=== PATIENT | female | born 1940 | race African-American/Black ===

== ENCOUNTER 2017-10-18 13:13 | Emergency (ER) | payer OTHER ==
--- NOTE | 2017-10-18 13:28 | PDOC ---
History of Present Illness - General Chief Complaint: Altered Mental Status Stated Complaint: AMS Time Seen by Provider: 10/18/17 13:15 History Source: Patient, Care Provider, EMS, Family Exam Limitations: Dementia - History of Present Illness Initial Comments: 10/18/17 13:18 77y F hx of htn, NIDDM parkinsons presents with complaint of AMS. Per aide, pt was less responsive this morning so they called EMS. Pt was recently admitted to the hospital and then discharged to [place] and came home 2 weeks ago. Per family , she has good days where she is more awake, eeds herself and wakls with assistance and bad days where she is sleeping mostly. Aide staes today she is minimally responsive, so they called EMS. History is limited, pt endorses feeling dizzy, but denies any cp, abd pain, cough/fevers, n/v, diarrhea, dysuria. BGM 134 by EMS vitals normal per EMS Past History - Past Medical History Allergies/Adverse Reactions: Allergies Allergy/AdvReac Type Severity Reaction Status Date / Time No Known Allergies Allergy Verified 07/01/17 17:11 Home Medications: Ambulatory Orders Nitrofurantoin Monohyd/M-Cryst [Macrobid -] 100 mg PO BID #10 capsule 10/18/17 COPD: No Dementia: Yes HTN: Yes - Suicide/Smoking/Psychosocial Hx Smoking History: Smoker current status UNK Have you smoked in the past 12 months: No Hx Alcohol Use: No Drug/Substance Use Hx: No Substance Use Type: None Review of Systems - Review of Systems Able to Perform ROS?: No (dementia, clinical status) *Physical Exam - Physical Exam Comments: 10/18/17 13:21 GENERAL: The patients eyes are closed, but responds to verbal comands, resistant to oepning eyes HEAD: Normocephalic, atraumatic. EYES: extraocular movements intact, sclera anicteric, conjunctiva clear. ENT: Normal voice, dry mucous membranes. NECK: Normal range of motion, supple LUNGS: Breath sounds equal, clear to auscultation bilaterally. No wheezes, no rhonchi, no rales. HEART: Regular rate and rhythm, normal S1 and S2 without murmur, rub or gallop. ABDOMEN: Soft, nontender, normoactive bowel sounds. No guarding, no rebound. No CVA tenderness EXTREMITIES: Normal range of motion, no edema. NEUROLOGICAL: No facial assymetry, moving all 4 extremities spontaneously and symmetrically PSYCH: Normal mood, normal affect. SKIN: Warm, Dry, normal turgor, Heart Score/ECG Review - ECG Impressions Comment:: 10/18/17 14:48 Twelve-lead EKG was performed and reviewed by me. There is normal sinus rhythm with a rate of 91 RBBB, LAFB no changes from previous ekg in 06/2017 ED Treatment Course - LABORATORY CBC & Chemistry Diagram: 10/18/17 15:45 10/18/17 15:45 - RADIOLOGY Radiology Studies Ordered: Category Date Time Status HEAD CT WITHOUT CONTRAST [CT] Stat CT Scan 10/18/17 13:16 Ordered CHEST X-RAY PORTABLE* [RAD] Stat Radiology 10/18/17 13:17 Ordered Medical Decision Making - Medical Decision Making 10/18/17 14:46 77y F hx of HTN, NIDDM, parkinsons present with AMS, upon arrival pt is awake when stimulated, follows commands, vitals normal. history limited dueto her dementia, but she dnies any pain. on exam the is in no distress, nonfocal exam ddx includes metabolic dernagement, occult infection, consider cva, will ck ct head, labs, ua, cxr will reassess 10/18/17 18:46 labs reviewed UA suggestive of UTI pt yaakov hogue will dc the pt with pmd fu and abx return precautions were discussed I discussed the physical exam findings, ancillary test results and final diagnoses with the patient. I answered all of the patient's questions. The patient was satisfied with the care received and felt comfortable with the discharge plan and treatment plan. The patient will call their primary care physician within 24 hours to arrange follow-up and will return to the Emergency Department with any new, persistent or worsening symptoms. *DC/Admit/Observation/Transfer Diagnosis at time of Disposition: Urinary tract infection Qualifiers: Urinary tract infection type: acute cystitis Hematuria presence: with hematuria Qualified Code(s): N30.01 - Acute cystitis with hematuria - Discharge Dispostion Disposition: HOME Condition at time of disposition: Improved Decision to Admit order: No - Prescriptions Prescriptions: Nitrofurantoin Monohyd/M-Cryst [Macrobid -] 100 mg PO BID #10 capsule - Referrals Referrals: Emily Mckeon MD [Staff Physician] - - Patient Instructions Printed Discharge Instructions: DI for Urinary Tract Infection (UTI) Additional Instructions: Return to the emergency department immediately with ANY new, persistent or worsening symptoms including any fever/chills, back pain or other concerns. Pklease finish your entire course of antibiotics as prescribed. You MUST call and follow up with your doctor tomorrow for further evaluation of your symptoms. Results were discussed with you. Please make sure your doctor reviews the results of your emergency evaluation. Print Language: MACANESE - Post Discharge Activity
[2017-10-18 13:44] VITALS: TEMP 98.2; BMI 20.8
[2017-10-18] MEDS ORDERED: SODIUM CHLORIDE 500 ML IV STA (16:02)
[2017-10-18 16:03] LABS: BASO % 0.4 % (0-2.0); EOS % 0.3 % (0-4.5); HEMATOCRIT 34.8 % (32.4-45.2); HEMOGLOBIN 10.9 GM/dL (10.7-15.3); LYMPH % 34.5 % (8-40); MCH 22.3 pg (25.7-33.7); MCHC 31.3 g/dl (32.0-36.0); MEAN CELL VOLUME 71.2 fl (80-96); MEAN PLT VOLUME 8.4 fl (7.5-11.1); MONO % 5.9 % (3.8-10.2); NEUT % 58.9 % (42.8-82.8); PLATELET COUNT 258 K/MM3 (134-434); RBC 4.88 M/mm3 (3.60-5.2); RDW 16.1 % (11.6-15.6); WHITE BLOOD COUNT 7.4 K/mm3 (4.0-10.0)
[2017-10-18 16:24] LABS: INR 1.07 (0.82-1.09); PROTHROMBIN TIME (PATIENT) 12.1 SEC (9.7-13.0)
[2017-10-18 17:59] LABS: URINE APPEARANCE CLOUDY; URINE BILIRUBIN NEGATIVE (<2.0 mg/dL); URINE COLOR YELLOW; URINE GLUCOSE (UA) NEGATIVE (NEGATIVE); URINE KETONE NEGATIVE (NEGATIVE); URINE NITRITE NEGATIVE (NEGATIVE); URINE PROTEIN NEGATIVE (NEGATIVE); URINE UROBILINOGEN NEGATIVE mg/dL (0.2-1.0)
[2017-10-18 17:59] LABS: BLOOD UREA NITROGEN 18 mg/dL (7-18); GLUCOSE,RANDOM 62 mg/dL (74-106)
[2017-10-18 18:00] LABS: ANION GAP 7 (8-16); CALCIUM 8.5 mg/dL (8.5-10.1); CHLORIDE 110 mmol/L (98-107); CO2 28 mmol/L (21-32); SODIUM 145 mmol/L (136-145); TOT PROT 7.4 g/dl (6.4-8.2)
[2017-10-18 18:01] LABS: ALBUMIN 3.2 g/dl (3.4-5.0); ALK PHOS 87 U/L (45-117); BILIRUBIN,TOTAL 0.2 mg/dL (0.2-1.0); SGOT/AST 26 U/L (15-37); SGPT/ALT 10 U/L (12-78)
[2017-10-18 18:23] LABS: URINE LEUK ESTERASE 3+ (NEGATIVE)
[2017-10-18 18:26] LABS: EPI CELLS RARE /HPF (FEW); URINE BACTERIA MODERATE /hpf (NONE SEEN)
[2017-10-18 18:31] LABS: MAGNESIUM 2.2 mg/dL (1.8-2.4)
[2017-10-18 19:10] VITALS: BP 129/69; PULSE 68
--- NOTE | 2017-10-19 08:51 | EKG ---
Test Reason : Blood Pressure : / mmHG Vent. Rate : 091 BPM Atrial Rate : 091 BPM P-R Int : 162 ms QRS Dur : 134 ms QT Int : 424 ms P-R-T Axes : 050 -63 -20 degrees QTc Int : 521 ms POOR DATA QUALITY, INTERPRETATION MAY BE ADVERSELY AFFECTED SINUS RHYTHM WITH OCCASIONAL PREMATURE VENTRICULAR COMPLEXES RIGHT BUNDLE BRANCH BLOCK LEFT ANTERIOR FASCICULAR BLOCK BIFASCICULAR BLOCK MODERATE VOLTAGE CRITERIA FOR LVH, MAY BE NORMAL VARIANT CANNOT RULE OUT SEPTAL INFARCT (CITED ON OR BEFORE 01-JUL-2017) ABNORMAL ECG WHEN COMPARED WITH ECG OF 01-JUL-2017 16:55, PREMATURE VENTRICULAR COMPLEXES ARE NOW PRESENT VENT. RATE HAS INCREASED BY 47 BPM QUESTIONABLE CHANGE IN INITIAL FORCES OF SEPTAL LEADS T WAVE INVERSION MORE EVIDENT IN ANTERIOR LEADS Confirmed by KIERA HEIN MD ([id number]) on 10/19/2017 8:50:30 AM Referred By: Confirmed By:KIERA HEIN MD
== END 2017-10-18 19:11 | disposition home or self-care (01) ==
LOC: JER 13:13
PROC: 3E0337Z Introduction of Electrolytic and Water Balance Substance into Peripheral Vein, Percutaneous Approach (ICD-10-PCS; principal; 2017-10-18)
DX: N30.01 Acute cystitis with hematuria (principal); I10 Essential (primary) hypertension; E11.9 Type 2 diabetes mellitus without complications; G20 Parkinson's disease; F02.80 Dementia in other diseases classified elsewhere, unspecified severity, without behavioral disturbance, psychotic disturbance, mood disturbance, and anxiety
CPT/HCPCS: 36415; 70450-TC; 71045-TC-FY; 80053; 81003; 81015; 82550; 83735; 84443; 84484; 85025; 85610; 87040; 87086; 87186; 93005; 93010; 96360; 99284-25

== ENCOUNTER 2018-04-13 15:38 | Inpatient (IN) | payer MEDICARE, OTHER ==
[2018-04-13] MEDS ORDERED: LACTATED RINGERS SOLUTION 1,000 ML/1,000 ML INFUS.BAG IV STA (16:14)
[2018-04-13] MEDS ORDERED: PIPERACILLIN/TAZOB 3.375 GM 3.375 GM in DEXTROSE 5%-WATER - 50 ML IVPB ONE (16:21)
[2018-04-13] MEDS ORDERED: VANCOMYCIN 1 GRAM (PRE-DOCKED) 1,000 MG/250 ML BAG IVPB ONE ×2 (16:21→17:32)
--- NOTE | 2018-04-13 16:23 | PDOC ---
Attending Attestation - Resident Resident Name: Eric Williamson - ED Attending Attestation I have performed the following: I have examined & evaluated the patient, The case was reviewed & discussed with the resident, I agree w/resident's findings & plan, Exceptions are as noted - HPI HPI: 04/13/18 16:24 The patient is a 78 year old female with a significant PMH of HTN, DM, bilateral knee replacement, Parkinsons disease, and mild dementia who presents to the emergency department with generalized weakness and nonbloody diarrhea for the past week. Patients daughter is at bedside and reports the patient talks, feeds herself, and walks with a walker at baseline. As per the daughter, the patient has been having a lack of appetite, lying in bed most of the day, and not talking with her granddaughters as she usually does. She denies fevers but states the patient has been cold. Pt's daughter also reports a sacral ulcer that has been hard to clean 2/2 diarrhea. Per EMS, pt was hypotensive to 70/40 in the field but responded to 1L fluids and BP went up to 130s systolic. Per her daughter, pt is full code. History is limited due to pt's mental status at this time. Allergies: NKA Past surgical history: None reported. Social history: None reported. PCP: Dr. Salcedo - Physicial Exam PE: 04/13/18 16:36 GENERAL: lethargic but arousable HEAD: No signs of trauma ENT: Dry mucous membranes LUNGS: Breath sounds equal, clear to auscultation bilaterally. No wheezes, and no crackles HEART: Regular rate and rhythm, normal S1 and S2, no murmurs, rubs or gallops ABDOMEN: Soft, nontender, nondistended : rectal temp 88 EXTREMITIES: Normal range of motion, no edema. +b/l knee replacement with well healed scars, +R hip scar NEUROLOGICAL: Rigid throughout, LUE pill rolling tremor, moving all extremities SKIN: +sacral decubitus ulcer covered with diarrhea - Medical Decision Making 04/13/18 16:42 78yo F with MMP including parkinsons disease presents to the ED with lethargy and diarrhea, hypotensive in the field, in the ED found to have hypothermia to 88F, hypoxia that has corrected with NRB. Pt with sacral decubitus ulcer covered in diarrhea. Concern for infection, likely UTI vs infected sacral decubitus, but also possible PNA as pt was hypoxic in the field. Pt rigid throughout, pt daughter states is baseline due to her parkinsons disease. Will check labs to look for metabolic causes of AMS and CTH for neurologic causes. Pt covered empirically. Anticipate admission. Heart Score/ECG Review #1 04/13/18 16:46 Twelve-lead EKG was performed and reviewed by me. Sinus bradycardia, rate 59. Left axis deviation. Right bundle branch block.
--- NOTE | 2018-04-13 16:27 | PDOC ---
History of Present Illness - General Stated Complaint: CHANGE IN MENTAL STATUS Time Seen by Provider: 04/13/18 15:43 History Source: Care Provider, Family Exam Limitations: No Limitations - History of Present Illness Initial Comments: 04/13/18 16:41 78f with pmh of Parkinson's, dementia, and HTN presents to the ED for change in mental status as per daughter who lives wit her. Beginning of the week started having diarrhea for 2-3 days. Looking more weak, given ensure and pedialyte. After that she started to communicated less and less , unable to feed and became more rigid, unable to ambulate. Lives at home with Daughter. 04/13/18 16:45 Past History - Past Medical History Allergies/Adverse Reactions: Allergies Allergy/AdvReac Type Severity Reaction Status Date / Time No Known Allergies Allergy Verified 04/13/18 21:45 Home Medications: Ambulatory Orders Acetaminophen 500 mg PO DAILY 04/13/18 Aspirin 81 mg PO DAILY 04/13/18 Ca/D3/Mag Ox/Zinc/Truck Leasing Manager/Ketan/Bor [Calcium 600+D3 Plus Caplet] 1 each PO DAILY Carbidopa/Levodopa [Carbidopa-Levo ER 50-200 Tab] 1 each PO DAILY 04/13/18 Olanzapine 5 mg PO HS 04/13/18 Rotigotine [Neupro] 1 each TD DAILY 04/13/18 COPD: No Dementia: Yes HTN: Yes - Suicide/Smoking/Psychosocial Hx Smoking History: Smoker current status UNK Have you smoked in the past 12 months: No Hx Alcohol Use: No Drug/Substance Use Hx: No Substance Use Type: None Review of Systems - Review of Systems Able to Perform ROS?: No (non-verbal) *Physical Exam - Physical Exam General Appearance: Yes: Nourished, Appropriately Dressed, Apparent Distress, Other HEENT: positive: EOMI, Other (greenish discharge from corner of right eye, non conjunctivitis) Respiratory/Chest: positive: Lungs Clear, Normal Breath Sounds, Other (slow rr) . negative: Chest Tender, Respiratory Distress Cardiovascular: positive: Regular Rhythm, Regular Rate, S1, S2 Gastrointestinal/Abdominal: positive: Normal Bowel Sounds, Flat, Soft. negative : Tender Musculoskeletal: positive: Other Extremity: positive: Normal Capillary Refill. negative: Normal Inspection ( lead pipe rigidity) Integumentary: positive: Other (patient feels ice-coldat extremities. Twelve -lead EKG was performed and reviewed by me. Sacral decubitus ulcer grade 2) Neurologic: positive: Responsive (responsive to pain., numbling and shivering. ) . negative: Fully Oriented, Alert, Normal Mood/Affect ED Treatment Course - LABORATORY CBC & Chemistry Diagram: 04/13/18 16:27 04/13/18 16:27 - RADIOLOGY Radiology Studies Ordered: Category Date Time Status CHEST X-RAY PORTABLE* [RAD] Stat Radiology 04/13/18 15:59 Taken Medical Decision Making - Medical Decision Making 04/13/18 16:53 78F with dementia and parkinsons, presenting with hypothermia and diarrhea for the past week. C.diff vs gastroenteritis vs UTI vs scral decubitus ulcer vs pneumonia Septic workup ordered. Cultures and cdiff sample ordered. Starting empiric abx. Elevated wbc. Positive occult blood EKG:Sinus bradycardia, rate 59. Left axis deviation. Right bundle branch block. 04/13/18 18:16 Temperature still 88.5F after abx, Bear Hugger and fluids. Will try warming 3rd bag IV fluid and give warmed maintenance 04/13/18 20:[address]: No acute intracranial findings. Will repeat vitals and admit to Hospitalist. *DC/Admit/Observation/Transfer Diagnosis at time of Disposition: Sepsis, UTI (urinary tract infection) - Discharge Dispostion Decision to Admit order: Yes - Referrals Referrals: Emily Mckeon MD [Primary Care Provider] - - Patient Instructions - Post Discharge Activity
[2018-04-13 16:49] LABS: VENOUS PC02 55.4 mmHg (38-52); VENOUS PH 7.26 (7.32-7.42); VENOUS PO2 45.8 mmHg (28-48)
[2018-04-13 16:51] LABS: BASO % 0.4 % (0-2.0); EOS % 0.1 % (0-4.5); HEMATOCRIT 37.6 % (32.4-45.2); HEMOGLOBIN 11.9 GM/dL (10.7-15.3); LYMPH % 16.9 % (8-40); MCHC 31.6 g/dl (32.0-36.0); MEAN CELL VOLUME 69.5 fl (80-96); MEAN PLT VOLUME 9.1 fl (7.5-11.1); NEUT % 78.6 % (42.8-82.8); PLATELET COUNT 171 K/MM3 (134-434); WHITE BLOOD COUNT 13.4 K/mm3 (4.0-10.0)
[2018-04-13 17:08] LABS: INR 1.13 (0.83-1.09); PROTHROMBIN TIME (PATIENT) 13.3 SEC (9.7-13.0)
[2018-04-13 17:10] LABS: ACTIVATED PTT 37.2 SECONDS (25.2-36.5)
[2018-04-13] MEDS ORDERED: PIPERACILLIN/TAZOB 3.375 GM 3.375 GM/50 ML BAG IVPB ONE (17:10)
[2018-04-13 17:26] LABS: ALK PHOS 92 U/L (45-117); ANION GAP 9 MMOL/L (8-16); BILIRUBIN,TOTAL 0.3 mg/dL (0.2-1); BLOOD UREA NITROGEN 30 mg/dL (7-18); CALCIUM 8.7 mg/dL (8.5-10.1); CHLORIDE 113 mmol/L (98-107); CO2 22 mmol/L (21-32); CREATININE 0.8 mg/dL (0.55-1.3); GLUCOSE,RANDOM 78 mg/dL (74-106); SGOT/AST 43 U/L (15-37); SGPT/ALT 12 U/L (13-61); SODIUM 143 mmol/L (136-145)
[2018-04-13 18:06] LABS: ARTERIAL BLOOD GAS BASE EXCESS -3.8 meq/l (-2-2); ARTERIAL BLOOD GAS PCO2 41.9 mmHg (35-45); ARTERIAL BLOOD GAS pH 7.33 (7.35-7.45)
[2018-04-13 18:07] LABS: ALLENS TEST POSITIVE
[2018-04-13 18:27] LABS: ACANTHOCYTES 1+; ANISOCYTOSIS 1+; MACROCYTOSIS 0; PLATELET ESTIMATE NORMAL; TARGET CELLS 1+
[2018-04-13 18:47] LABS: URINE APPEARANCE SLCLOUDY; URINE BILIRUBIN NEGATIVE (<2.0 mg/dL); URINE COLOR LTYELLOW; URINE GLUCOSE (UA) NEGATIVE (NEGATIVE); URINE KETONE NEGATIVE (NEGATIVE); URINE LEUK ESTERASE 3+ (NEGATIVE); URINE NITRITE NEGATIVE (NEGATIVE); URINE PROTEIN NEGATIVE (NEGATIVE); URINE UROBILINOGEN NEGATIVE mg/dL (0.2-1.0)
[2018-04-13 18:58] LABS: EPI CELLS RARE /HPF (FEW); URINE BACTERIA RARE /hpf (NONE SEEN)
[2018-04-13] MEDS: LACTATED RINGERS SOLUTION 1,000 ML/1,000 ML INFUS.BAG IV SCH (19:17)
--- NOTE | 2018-04-13 21:04 | PDOC ---
*Physical Exam - Vital Signs Last Vital Signs Temp Pulse Resp BP Pulse Ox 92.1 F L 77 20 128/62 98 04/13/18 20:43 04/13/18 20:43 04/13/18 20:43 04/13/18 20:43 04/13/18 20:43 - Physical Exam Comments: 04/14/18 02:41 I received pt on signout. She will be admitted for sepsis. We are awaiting all chem results and XRAYs.. ED Treatment Course - LABORATORY CBC & Chemistry Diagram: 04/13/18 16:27 04/13/18 16:27 - ADDITIONAL ORDERS Additional order review: Laboratory Results 04/13/18 04/13/18 04/13/18 18:39 17:31 16:27 PT with INR INR PTT (Actin FS) Anticoagulation Therapy No Result Required. Puncture Site No Result Required. ABG pH 7.33 L ABG pCO2 at Pt Temp 41.9 ABG pO2 at Pt Temp 178.0 H* D ABG HCO3 21.3 L ABG O2 Sat (Measured) 99.0 H ABG O2 Content 13.6 L ABG Base Excess -3.8 L Gaetano Test Positive VBG pH POC VBG pCO2 POC VBG pO2 Mixed VBG HCO3 Carboxyhemoglobin 1.0 Methemoglobin 2.0 H O2 Delivery Device No Result Required. Oxygen Flow Rate No Result Required. Vent Mode No Result Required. Vent Rate No Result Required. Mechanical Rate No Result Required. Pressure Support Vent No Result Required. Sodium 143 Potassium 5.0 Chloride 113 H Carbon Dioxide 22 Anion Gap 9 BUN 30 H Creatinine 0.8 Creat Clearance w eGFR > 60 Random Glucose 78 Lactic Acid Calcium 8.7 Total Bilirubin 0.3 AST 43 H ALT 12 L Alkaline Phosphatase 92 Troponin I < 0.02 Total Protein 7.0 Albumin 3.0 L Urine Color Ltyellow Urine Appearance Slcloudy Urine pH 5.0 Ur Specific [place] 1.004 L Urine Protein Negative Urine Glucose (UA) Negative Urine Ketones Negative Urine Blood 1+ H Urine Nitrite Negative Urine Bilirubin Negative Urine Urobilinogen Negative Ur Leukocyte Esterase 3+ H Urine WBC (Auto) 40 Urine RBC (Auto) 4 Ur Epithelial Cells Rare Urine Bacteria Rare Stool Occult Blood 04/13/18 04/13/18 04/13/18 16:27 16:27 16:27 PT with INR 13.30 H INR 1.13 H PTT (Actin FS) 37.2 H Anticoagulation Therapy Puncture Site ABG pH ABG pCO2 at Pt Temp ABG pO2 at Pt Temp ABG HCO3 ABG O2 Sat (Measured) ABG O2 Content ABG Base Excess Gaetano Test VBG pH 7.26 L POC VBG pCO2 55.4 H POC VBG pO2 45.8 Mixed VBG HCO3 24.1 Carboxyhemoglobin Methemoglobin O2 Delivery Device Oxygen Flow Rate Vent Mode Vent Rate Mechanical Rate Pressure Support Vent Sodium Potassium Chloride Carbon Dioxide Anion Gap BUN Creatinine Creat Clearance w eGFR Random Glucose Lactic Acid 1.1 Calcium Total Bilirubin AST ALT Alkaline Phosphatase Troponin I Total Protein Albumin Urine Color Urine Appearance Urine pH Ur Specific [place] Urine Protein Urine Glucose (UA) Urine Ketones Urine Blood Urine Nitrite Urine Bilirubin Urine Urobilinogen Ur Leukocyte Esterase Urine WBC (Auto) Urine RBC (Auto) Ur Epithelial Cells Urine Bacteria Stool Occult Blood 04/13/18 16:05 PT with INR INR PTT (Actin FS) Anticoagulation Therapy Puncture Site ABG pH ABG pCO2 at Pt Temp ABG pO2 at Pt Temp ABG HCO3 ABG O2 Sat (Measured) ABG O2 Content ABG Base Excess Gaetano Test VBG pH POC VBG pCO2 POC VBG pO2 Mixed VBG HCO3 Carboxyhemoglobin Methemoglobin O2 Delivery Device Oxygen Flow Rate Vent Mode Vent Rate Mechanical Rate Pressure Support Vent Sodium Potassium Chloride Carbon Dioxide Anion Gap BUN Creatinine Creat Clearance w eGFR Random Glucose Lactic Acid Calcium Total Bilirubin AST ALT Alkaline Phosphatase Troponin I Total Protein Albumin Urine Color Urine Appearance Urine pH Ur Specific [place] Urine Protein Urine Glucose (UA) Urine Ketones Urine Blood Urine Nitrite Urine Bilirubin Urine Urobilinogen Ur Leukocyte Esterase Urine WBC (Auto) Urine RBC (Auto) Ur Epithelial Cells Urine Bacteria Stool Occult Blood Positive 04/13/18 16:27 RBC 5.40 H MCV 69.5 L MCHC 31.6 L RDW 18.0 H MPV 9.1 Neutrophils % 78.6 D Lymphocytes % 16.9 D Monocytes % 4.0 Eosinophils % 0.1 Basophils % 0.4 - Medications Given in the ED: ED Medications Discontinued Medications Generic Name Dose Route Start Last Admin Trade Name Freq PRN Reason Stop Dose Admin Lactated Ringer's 1,000 ml in 1,000 mls @ 1,000 mls/hr 04/13/18 16:14 17:17 Lactated Ringers Solution IV 04/13/18 17:13 1,000 mls/hr ONCE STA Administration Piperacillin Sod/Tazobactam 50 mls @ 100 mls/hr 04/13/18 16:21 04/13/18 17:18 Sod 3.375 gm/ Dextrose IVPB 04/13/18 16:50 100 mls/hr ONCE ONE Administration Protocol Vancomycin HCl 1,000 mg 04/13/18 16:21 04/13/18 17:32 Vancomycin (Pre-Docked) IVPB 04/13/18 16:22 1,000 mg ONCE ONE Administration Protocol *DC/Admit/Observation/Transfer Diagnosis at time of Disposition: Sepsis, UTI (urinary tract infection) - Referrals - Patient Instructions - Post Discharge Activity
--- NOTE | 2018-04-13 22:18 | PN ---
Teaching Attending Note Name of Resident: Virginia Lawler ATTENDING PHYSICIAN STATEMENT I saw and evaluated the patient. I reviewed the resident's note and discussed the case with the resident. I agree with the resident's findings and plan as documented. SUBJECTIVE: Patient is seen and examined at bedside; please see resident note for further historical information. She is a 78 y/o AAF with a PMH significant for Parkinson's disease (on CD/LD, recently started on new medication by Dr. Jeffries with Neupro patch which she first took last week with initial positive response). She is compliant with her tx. She presents with AMS today; she has been progressively more sleepy over the past several days becoming less responsive and barely eating (daughters tried to give pedialyte). Question of BRBPR. She has limited mobility at baseline, requiring use of a wheelchair and only able to go short distances (chair to washroom, etc) but they noted this was diminished. She had 3 bouts of diarrhea (no record of recent abx). Given the aforementioned family wanted her assessed. In the ER she found to be hypothermic recorded in low 80s and she was placed on warming. She was given broad spectrum abx and 2L crystaloid. She was initially doing well on RA then was found to rapidly desaturate requiring ventimask (this was in the ER, unwitnessed). We saw her and she was back down to low requirements on NC saturating at 100%. Unsure exactly what the inciting event was. 10 sys ROS couldn't be reliably obtained from pt FH couldn't be confirmed with pt Social hx she needs help with her ADLs (at least the mobility part of it, though she can still complete some) and IADLs. No tobacco or alcohol use now. PMH and PSH reviewed in chart OBJECTIVE: VS, labs, imaging reviewed NAD, responsive to pain and tactile stimuli, at this time judged to protect airway but that could change. RRR s1/2 no mgr Lung exam difficult; appears mostly clear but shallow inspiration limits. sym exp Winces to deep palpation throughout upper quadrants, ND +BS x4 no palpable bladder or hsm. Multiple hemorrhoids on rectal exam Stage 1 sacral decub, no other rashes or abrasions. Responds to pain an tactile stimuli, opening eyes and grimmacing, reflexes normal. Somewhat increased muscle tone. Echo 06/2017 reviewed: G1DD, LVEF wnl WBC 13, VBG reviewed, microcytic anemia noted CT head negative for acute findings, final report pending ESR/CRP, culture results pending. Positive FOBT. Elevated BUN off baseline Resistent E. Coli in urine culture within 12 months. ASSESSMENT AND PLAN: Mrs. Prescott is an 78 y/o HF presenting with AMS and hypothermia from home. Ddx is broad. 1) AMS -Broad ddx; UA slightly positive and cannot tell us if she has sx so empirically covering. She also had a recent neurological drug change with the Neupro patch. If she doesn't improve with treating infection considering contribution of drug effect vs. other process; at that juncture would consult her neurologist. No s/s seizure. CT head unremarkable for acute findings. Consider further neuroimaging with MRI if conservative management not revealing. would be helpful to review OP neuro recs. -Neuro checks, seizure precautions. If she ends up having any worsening of her neuro status may need to protect her airway and increase the level of care. -Monitor for any arrhythmias that could have predisposed to embolic phenomenon, etc. on tele for 24 hours; trop (-)x2 -Swallow study; she should continue on her PD meds at this juncture 2) Diarrhea -Low risk for CDif but she cannot provide complete history; did appear to have abdominal pain on exam. Due to her hypothermia, WBC, confusing presentation will go ahead and check stool studies to r/o infection; if negative can treat with PRNs 3) +FOBT with BRBPR and ? Abdominal Pain -Elevated BUN noted; Hb 11 and it was 10 the last time she was here but she appears dehydrated at this juncture. Hemorrhoids seen on exam. -No bloody BM seen here; will monitor. Trend CBC. If drop in Hb or further blood will consult GI but given the hemorrhoids can hold off at least for overnight. Monitor clinically. CT pending. Until ascertained if this is significant keeping on IV protonix push BID. 4) Borderline bradycardia -Resolved with treatment of hypothermia; monitor tele for 24 hours 5) Acute Cystitis -UA suggests with +AMS; cannot tell if urinary sx. Grew out organisms with odd resistence patterns in past. Will place on ertapenem and monitor as it covered both recent strains of bacteria. Consider ID consult. 6) Poor functional status -PT when improved; consideration of placement -Family is adament that she remain full code; discussed at length. 7) Hypoalbuminemia -Prealbumin and nutritional supplementation as OP 8) Parkinsons disease -Continue to monitor neurologic status; continue home meds. As per #1 consult to neuro should be considered if she doesn't have any improvement after initiation of proper tx for suspected cystitis. 9) Acute Desat -Unsure what incited this; weaning off O2 but per HPI was on venturi mask/NRB very briefly in ER. Checking CT chest; monitor O2. She is protecting her airway to our assessment but if evidence of occult aspiration, etc. we will need to reexamine our approach. Cpnsider incentive sandy when awake. 10) Microcytic Anemia -+FOBT; if she doesn't see GI here she should see them outpatient for further workup 11) Dementia -Confirmed code status; she does get home health 12) H/O HTN not on meds -Monitor; if she is persistently hypertensive here consider GDMT but likely can FU outpatient. 13) Grade I Diastolic Dysfunction -Seen on Echo from earlier this year; careful fluid management Full Code
--- NOTE | 2018-04-14 01:02 | HP ---
CHIEF COMPLAINT: weakness, lethargy PCP: Dr. Mckeon HISTORY OF PRESENT ILLNESS: Patient is an 78 year old female with history of Parkinson's, dementia, and hypertension, presents with complaint of generalized weakness, and lethargy. As per daughter (Angela [phone]) at bedside, patient has been minimally responsive, and less communicative over the past three days. Patient's appetite has decreased significantly, and over past day she has only consumed one bottle of "Pediasure" throughout the day. At baseline, patient is verbally communicative, and able to ambulate to bathroom with walker, and otherwise ambulates in wheelchair. She normally eats full, solid diet. Daughter also notes concern for liquid brown diarrhea that began this past Saturday. She denies melena, however endorses one episode of possibly red streak of blood mixed with the diarrhea. No recent hospitalization, or antibiotics use. However , daughter notes new medication (Neupro patch) that she began earlier the same week. No other changes in medications. Patient has history of presenting with hypothermia in the past, and was noted by daughter to be cold to touch at home yesterday, despite wearing hat, socks, and under covers. ER course was notable for: (1) 2L bolus IV LR (2) Temp 88.9F, Monica hugger (3) Vancomycin 1 gram, Zosyn 3.375 grams Recent Travel: denies PAST MEDICAL HISTORY: Parkinson's, dementia, hypertension PAST SURGICAL HISTORY: B/L knee replacement 4 years ago. Right hip repair 2 years ago. Hysterectomy 45 years ago. Social History: Smoking: denies Alcohol: denies Drugs: denies Occupation: patient did not have prior occupation. She took care of her children , and maintained her household. She has home health aide 7 days/ week, 8 hours/ day. Daughter lives at home with her, and assists in the patient's care. Family History: Both mother and father due to "old age". Patient's daughter unable to provide further history. Allergies No Known Allergies Allergy (Verified 04/13/18 21:45) HOME MEDICATIONS: Home Medications Medication Instructions Recorded Acetaminophen 500 mg PO DAILY 04/13/18 Aspirin 81 mg PO DAILY 04/13/18 Ca/D3/Mag Ox/Zinc/Audience Coordinator/Ketan/Bor 1 each PO DAILY 04/13/18 [Calcium 600+D3 Plus Caplet] Carbidopa/Levodopa [Carbidopa-Levo 1 each PO DAILY 04/13/18 ER 50-200 Tab] Olanzapine 5 mg PO HS 04/13/18 Rotigotine [Neupro] 1 each TD DAILY 04/13/18 REVIEW OF SYSTEMS Unable to obtain due to patient's minimal responsiveness. PHYSICAL EXAMINATION Vital Signs - 24 hr 04/13/18 04/13/18 04/13/18 15:59 16:00 16:52 Temperature 88.9 F L 88.4 F L 88.2 F L Pulse Rate 52 L Pulse Rate [ 54 L Left] Respiratory 10 16 Rate Blood Pressure 111/72 Blood Pressure 105/68 [Arm] O2 Sat by Pulse 100 80 L Oximetry (%) 04/13/18 04/13/18 04/13/18 17:25 18:35 19:16 Temperature 88.9 F L Pulse Rate Pulse Rate [ 62 72 Left] Respiratory 14 17 Rate Blood Pressure Blood Pressure 110/65 108/56 L [Arm] O2 Sat by Pulse 100 100 Oximetry (%) 04/13/18 04/13/18 04/13/18 19:35 20:43 21:24 Temperature 92.1 F L Pulse Rate Pulse Rate [ 77 Left] Respiratory 20 20 Rate Blood Pressure Blood Pressure 128/62 [Arm] O2 Sat by Pulse 97 98 100 Oximetry (%) 04/13/18 04/13/18 21:37 22:32 Temperature 92.1 F L Pulse Rate Pulse Rate [ 83 Left] Respiratory 18 Rate Blood Pressure Blood Pressure 100/53 L [Arm] O2 Sat by Pulse 100 100 Oximetry (%) GENERAL: Lethargic, responds to sternal rub, and finger pressure by withdrawing limbs. HEENT: Normocephalic, atraumatic. Dry mucous membranes. EYES: Pupils equal, round 2mm b/l. Sclera anicteric, conjunctiva clear. LUNGS: Breath sounds equal, clear to auscultation bilaterally. No wheezes, and no crackles. No accessory muscle use. HEART: Regular rate and rhythm, normal S1 and S2 without murmur, rub or gallop. ABDOMEN: Soft, some tension with deep palpation X4 quadrants. No guarding, no rebound tenderness noted. No hepatomegaly palpated or percussed. Normoactive bowel sounds X4 quadrants RECTAL: No external hemorrhoids visualized. Numerous circumferential internal hemorrhoids noted. Liquid stool within rectal vault. Dark brown, liquid, malodorous stool upon gloved finger without kerri blood or melena. EXTREMITIES: 2+ radial, and dorsalis pedis pulses b/l, cool to palpation. No lower extremity edema b/l. NEUROLOGICAL: Increased tone, with rigidity of b/l upper and lower extremities noted. No resting tremor appreciated. SKIN: Warm, dry. Stage 1 sacral ulcer noted without discharge. Laboratory Results - last 24 hr 04/13/18 04/13/18 04/13/18 16:05 16:27 16:27 WBC 13.4 H RBC 5.40 H Hgb 11.9 Hct 37.6 MCV 69.5 L MCH 22.0 L MCHC 31.6 L RDW 18.0 H Plt Count 171 D MPV 9.1 Absolute Neuts (auto) 10.6 H Neutrophils % 78.6 D Neutrophils % (Manual) 74.5 Band Neutrophils % 5.1 Lymphocytes % 16.9 D Lymphocytes % (Manual) 7.2 L Monocytes % 4.0 Monocytes % (Manual) 4 Eosinophils % 0.1 Eosinophils % (Manual) 0.0 Basophils % 0.4 Basophils % (Manual) 0.0 Myelocytes % (Man) 0 Promyelocytes % (Man) 0 Blast Cells % (Manual) 0 Nucleated RBC % 2 H Metamyelocytes 2 Hypochromia 0 Platelet Estimate Normal Polychromasia 0 Poikilocytosis 1+ Anisocytosis 1+ Microcytosis 1+ Macrocytosis 0 Target Cells 1+ Lizzy Cells 1+ Acanthocytes (Spur) 1+ PT with INR 13.30 H INR 1.13 H PTT (Actin FS) 37.2 H Anticoagulation Therapy Puncture Site ABG pH ABG pCO2 at Pt Temp ABG pO2 at Pt Temp ABG HCO3 ABG O2 Sat (Measured) ABG O2 Content ABG Base Excess Gaetano Test VBG pH POC VBG pCO2 POC VBG pO2 Mixed VBG HCO3 Carboxyhemoglobin Methemoglobin O2 Delivery Device Oxygen Flow Rate Vent Mode Vent Rate Mechanical Rate Pressure Support Vent Sodium Potassium Chloride Carbon Dioxide Anion Gap BUN Creatinine Creat Clearance w eGFR Random Glucose Lactic Acid Calcium Total Bilirubin AST ALT Alkaline Phosphatase Troponin I Total Protein Albumin Urine Color Urine Appearance Urine pH Ur Specific [place] Urine Protein Urine Glucose (UA) Urine Ketones Urine Blood Urine Nitrite Urine Bilirubin Urine Urobilinogen Ur Leukocyte Esterase Urine WBC (Auto) Urine RBC (Auto) Ur Epithelial Cells Urine Bacteria Stool Occult Blood Positive 04/13/18 04/13/18 04/13/18 16:27 16:27 16:27 WBC RBC Hgb Hct MCV MCH MCHC RDW Plt Count MPV Absolute Neuts (auto) Neutrophils % Neutrophils % (Manual) Band Neutrophils % Lymphocytes % Lymphocytes % (Manual) Monocytes % Monocytes % (Manual) Eosinophils % Eosinophils % (Manual) Basophils % Basophils % (Manual) Myelocytes % (Man) Promyelocytes % (Man) Blast Cells % (Manual) Nucleated RBC % Metamyelocytes Hypochromia Platelet Estimate Polychromasia Poikilocytosis Anisocytosis Microcytosis Macrocytosis Target Cells Lizzy Cells Acanthocytes (Spur) PT with INR INR PTT (Actin FS) Anticoagulation Therapy Puncture Site ABG pH ABG pCO2 at Pt Temp ABG pO2 at Pt Temp ABG HCO3 ABG O2 Sat (Measured) ABG O2 Content ABG Base Excess Gaetano Test VBG pH 7.26 L POC VBG pCO2 55.4 H POC VBG pO2 45.8 Mixed VBG HCO3 24.1 Carboxyhemoglobin Methemoglobin O2 Delivery Device Oxygen Flow Rate Vent Mode Vent Rate Mechanical Rate Pressure Support Vent Sodium 143 Potassium 5.0 Chloride 113 H Carbon Dioxide 22 Anion Gap 9 BUN 30 H Creatinine 0.8 Creat Clearance w eGFR > 60 Random Glucose 78 Lactic Acid 1.1 Calcium 8.7 Total Bilirubin 0.3 AST 43 H ALT 12 L Alkaline Phosphatase 92 Troponin I < 0.02 Total Protein 7.0 Albumin 3.0 L Urine Color Urine Appearance Urine pH Ur Specific [place] Urine Protein Urine Glucose (UA) Urine Ketones Urine Blood Urine Nitrite Urine Bilirubin Urine Urobilinogen Ur Leukocyte Esterase Urine WBC (Auto) Urine RBC (Auto) Ur Epithelial Cells Urine Bacteria Stool Occult Blood 04/13/18 04/13/18 17:31 18:39 WBC RBC Hgb Hct MCV MCH MCHC RDW Plt Count MPV Absolute Neuts (auto) Neutrophils % Neutrophils % (Manual) Band Neutrophils % Lymphocytes % Lymphocytes % (Manual) Monocytes % Monocytes % (Manual) Eosinophils % Eosinophils % (Manual) Basophils % Basophils % (Manual) Myelocytes % (Man) Promyelocytes % (Man) Blast Cells % (Manual) Nucleated RBC % Metamyelocytes Hypochromia Platelet Estimate Polychromasia Poikilocytosis Anisocytosis Microcytosis Macrocytosis Target Cells Lizzy Cells Acanthocytes (Spur) PT with INR INR PTT (Actin FS) Anticoagulation Therapy No Result Required. Puncture Site No Result Required. ABG pH 7.33 L ABG pCO2 at Pt Temp 41.9 ABG pO2 at Pt Temp 178.0 H* D ABG HCO3 21.3 L ABG O2 Sat (Measured) 99.0 H ABG O2 Content 13.6 L ABG Base Excess -3.8 L Gaetano Test Positive VBG pH POC VBG pCO2 POC VBG pO2 Mixed VBG HCO3 Carboxyhemoglobin 1.0 Methemoglobin 2.0 H O2 Delivery Device No Result Required. Oxygen Flow Rate No Result Required. Vent Mode No Result Required. Vent Rate No Result Required. Mechanical Rate No Result Required. Pressure Support Vent No Result Required. Sodium Potassium Chloride Carbon Dioxide Anion Gap BUN Creatinine Creat Clearance w eGFR Random Glucose Lactic Acid Calcium Total Bilirubin AST ALT Alkaline Phosphatase Troponin I Total Protein Albumin Urine Color Ltyellow Urine Appearance Slcloudy Urine pH 5.0 Ur Specific [place] 1.004 L Urine Protein Negative Urine Glucose (UA) Negative Urine Ketones Negative Urine Blood 1+ H Urine Nitrite Negative Urine Bilirubin Negative Urine Urobilinogen Negative Ur Leukocyte Esterase 3+ H Urine WBC (Auto) 40 Urine RBC (Auto) 4 Ur Epithelial Cells Rare Urine Bacteria Rare Stool Occult Blood ASSESSMENT/PLAN: Patient is an 78 year old female with history of Parkinson's, dementia, and hypertension, presents with complaint of generalized weakness, and lethargy. Altered Mental Status -Likely secondary to sepsis due to urinary tract infection -Daughter notes no increased urinary frequency, or hematuria -UA shows cloudy light yellow urine, 3+ leukocyte esterase, 1+ blood 40WBC, 3RBC -History of multidrug resistant E.coli -Begin Ertapenem 1 gram IV daily. Consider ID consult. -F/U urine culture, blood culture -F/U CTA chest to rule out pulmonary embolism -CT head negative for intracranial bleeding, or mass. -Nasal canula 3L currently saturating 100%. Monitor vital signs closely. -Fall precautions -Seizure precautions -Aspiration precautions- elevate bed to 45 degrees -Neuro checks Q2H Diarrhea -Unclear etiology. May be secondary to new medication Neupro patch vs. infectious etiology. -F/U stool for C. diff, and lactoferrin. If lactoferrin positive, will obtain stool culture. -F/U CT abdomen/ pelvis to rule out inra-abdominal pathology. Patient noted to have some tensing upon exam. -Positive occult blood may be secondary to internal hemorrhoids. -Monitor Hb/ HCt Q8H. Currently stable, however if significant drop in levels, consider further workup to identify source of bleeding. -Protonix 40mg IV BID -Holding her Aspirin for now Hypothermia -Monica vásquez -Monitor rectal temperature closely. Parkinson's, Dementia -Continue Sinemet 50/200mg PO daily -Continue Neupro patch daily -Continue Olanzapine 5mg PO HS -Consider neurology consult Sacral Ulcer -Turn and position Q2H -Wound care consult Hypoalbuminemia -director of outpatient services evaluation FEN -IV lactaed ringers at 100mL/ hour X1 bag -Follow CMP -NPO while altered, pending certified executive chef evaluation. Prophylaxis -SCDs B/L lower extremities. Holding chemical anticoagulation, pending repeat CBC to ensure no active GI bleeding. -Patoprazole 40mg IV BID Disposition -Admit to Telemetry floor. Patient is FULL CODE Visit type - Emergency Visit Emergency Visit: Yes ED Registration Date: 04/13/18 Care time: The patient presented to the Emergency Department on the above date and was hospitalized for further evaluation of their emergent condition. - New Patient This patient is new to me today: Yes Date on this admission: 04/14/18 - Critical Care Critical Care patient: No
[2018-04-14 04:10] LABS: HEMATOCRIT 35.5 % (32.4-45.2); HEMOGLOBIN 11.3 GM/dL (10.7-15.3); MCH 21.9 pg (25.7-33.7); MCHC 31.8 g/dl (32.0-36.0); MEAN CELL VOLUME 69.1 fl (80-96); MEAN PLT VOLUME 9.2 fl (7.5-11.1); PLATELET COUNT 155 K/MM3 (134-434); RBC 5.14 M/mm3 (3.60-5.2); RDW 17.8 % (11.6-15.6); WHITE BLOOD COUNT 10.7 K/mm3 (4.0-10.0)
[2018-04-14 07:48] LABS: HEMATOCRIT 33.8 % (32.4-45.2); HEMOGLOBIN 10.4 GM/dL (10.7-15.3); MCH 21.5 pg (25.7-33.7); MCHC 30.8 g/dl (32.0-36.0); MEAN CELL VOLUME 69.6 fl (80-96); MEAN PLT VOLUME 8.9 fl (7.5-11.1); PLATELET COUNT 135 K/MM3 (134-434); RBC 4.86 M/mm3 (3.60-5.2); RDW 17.7 % (11.6-15.6); WHITE BLOOD COUNT 9.2 K/mm3 (4.0-10.0)
[2018-04-14] MEDS ORDERED: DEXTROSE 50%-WATER - 25 GM/50 ML VIAL IVPUSH ONE (08:30)
[2018-04-14] MEDS ORDERED: DEXTROSE 50%-WATER 25 GM/50 ML DISP.SYRIN ONE (08:45)
[2018-04-14] MEDS ORDERED: LACTATED RINGERS SOLUTION 1,000 ML/1,000 ML INFUS.BAG IV SCH ×3 (08:45→13:15)
[2018-04-14 08:50] LABS: HEMATOCRIT 33.8 % (32.4-45.2); HEMOGLOBIN 10.6 GM/dL (10.7-15.3); MCH 21.5 pg (25.7-33.7); MCHC 31.3 g/dl (32.0-36.0); MEAN CELL VOLUME 68.6 fl (80-96); MEAN PLT VOLUME 8.7 fl (7.5-11.1); PLATELET COUNT 144 K/MM3 (134-434); RBC 4.92 M/mm3 (3.60-5.2); RDW 17.9 % (11.6-15.6); WHITE BLOOD COUNT 9.8 K/mm3 (4.0-10.0)
[2018-04-14 09:15] LABS: ALBUMIN 2.3 g/dl (3.4-5.0); ALK PHOS 71 U/L (45-117); ANION GAP 7 MMOL/L (8-16); BILIRUBIN,TOTAL 0.2 mg/dL (0.2-1); BLOOD UREA NITROGEN 23 mg/dL (7-18); CALCIUM 8.7 mg/dL (8.5-10.1); CHLORIDE 114 mmol/L (98-107); CO2 23 mmol/L (21-32); CREATININE 0.9 mg/dL (0.55-1.3); GLUCOSE,RANDOM 59 mg/dL (74-106); MAGNESIUM 2.1 mg/dL (1.8-2.4); PHOSPHOROUS 3.9 mg/dL (2.5-4.9); SGOT/AST 26 U/L (15-37); SGPT/ALT 13 U/L (13-61); SODIUM 144 mmol/L (136-145); TOT PROT 5.4 g/dl (6.4-8.2)
[2018-04-14 09:17] LABS: ALBUMIN 2.4 g/dl (3.4-5.0); ALK PHOS 74 U/L (45-117); ANION GAP 6 MMOL/L (8-16); BILIRUBIN,TOTAL 0.2 mg/dL (0.2-1); BLOOD UREA NITROGEN 23 mg/dL (7-18); CALCIUM 8.4 mg/dL (8.5-10.1); CHLORIDE 116 mmol/L (98-107); CO2 24 mmol/L (21-32); GLUCOSE,RANDOM 59 mg/dL (74-106); POTASSIUM 4.7 mmol/L (3.5-5.1); SGOT/AST 24 U/L (15-37); SGPT/ALT 14 U/L (13-61); SODIUM 146 mmol/L (136-145); TOT PROT 5.5 g/dl (6.4-8.2)
--- NOTE | 2018-04-14 09:17 | CONSULT ---
- Consultation REQUESTING PROVIDER: CONSULT REQUEST: We have been asked to surgically evaluate this patient for ( sacral ulcer). PCP:Jolanta Morales HISTORY OF PRESENT ILLNESS: 78 y/o F w/ PMHx Parkinson's, dementia, and hypertension brought in from home by daughter due to weakness, lethargy and diarrhea. Currently undergoing infection workup. Vascular consulted for evaluation of sacral ulcer. Pt currently lethargic, not responding to questioning. Per EMR at baseline, pt is able to ambulate to the bathroom with walker otherwise is in wheelchair. PMHx: as above PSHx: unable to obtain history from pt Home Medications Medication Instructions Recorded Acetaminophen 500 mg PO DAILY 04/13/18 Aspirin 81 mg PO DAILY 04/13/18 Ca/D3/Mag Ox/Zinc/High School History Teacher/Ketan/Bor 1 each PO DAILY 04/13/18 [Calcium 600+D3 Plus Caplet] Carbidopa/Levodopa [Carbidopa-Levo 1 each PO DAILY 04/13/18 ER 50-200 Tab] Olanzapine 5 mg PO HS 04/13/18 Rotigotine [Neupro] 1 each TD DAILY 04/13/18 Allergies Allergy/AdvReac Type Severity Reaction Status Date / Time No Known Allergies Allergy Verified 04/13/18 21:45 REVIEW OF SYSTEMS: unable to obtain PHYSICAL EXAM: GENERAL: Lethargic, opens eyes minimally to physical stimuli. Back/Sacrum, multiple small stage 2 sacral ulcers, clean based with no erythema or drainage. LOWER EXTREMITIES: No ulcers on b/l heels Vital Signs Temperature 97.7 F 04/14/18 08:11 Pulse Rate 99 H 04/14/18 08:53 Respiratory Rate 18 04/14/18 08:53 Blood Pressure 83/63 L 04/14/18 08:53 O2 Sat by Pulse Oximetry (%) 100 04/14/18 01:58 Lab Results WBC 9.2 K/mm3 (4.0-10.0) 04/14/18 06:30 RBC 4.86 M/mm3 (3.60-5.2) 04/14/18 06:30 Hgb 10.4 GM/dL (10.7-15.3) L 04/14/18 06:30 Hct 33.8 % (32.4-45.2) 04/14/18 06:30 MCV 69.6 fl (80-96) L 04/14/18 06:30 MCHC 30.8 g/dl (32.0-36.0) L 04/14/18 06:30 RDW 17.7 % (11.6-15.6) H 04/14/18 06:30 Plt Count 135 K/MM3 (134-434) 04/14/18 06:30 Sodium 143 mmol/L (136-145) 04/13/18 16:27 Potassium 5.0 mmol/L (3.5-5.1) 04/13/18 16:27 Chloride 113 mmol/L (98-107) H 04/13/18 16:27 Carbon Dioxide 22 mmol/L (21-32) 04/13/18 16:27 Anion Gap 9 MMOL/L (8-16) 04/13/18 16:27 BUN 30 mg/dL (7-18) H 04/13/18 16:27 Creatinine 0.8 mg/dL (0.55-1.3) 04/13/18 16:27 Random Glucose 78 mg/dL (74-106) 04/13/18 16:27 Calcium 8.7 mg/dL (8.5-10.1) 04/13/18 16:27 INR 1.13 (0.83-1.09) H 04/13/18 16:27 A/P: 78 y/o F w/ PMHx Parkinson's, dementia, and hypertension brought in from home by daughter due to weakness, lethargy and diarrhea. Currently undergoing infection workup. Vascular consulted for evaluation of sacral ulcer. Multiple small stage 2 ulcers, clean based, no clinical signs of infection. -Reposition every two hours while in bed -Air mattress recommended -Use drawsheets and Trendelenburg when repositioning to reduce friction and shear -Manageincontinence via timely cleansing, use of appropriate incontinence disposables and use of barrier ointment to intact skin -Ensure adequate hydration/nutrition, supplementation per primary team -Ensure off-loading to all bony areas (heels, ankles, hips and tailbone) with Allevyn/Optifoam d/w attending Dr Hightower
[2018-04-14] MEDS: LACTATED RINGERS SOLUTION 1,000 ML/1,000 ML INFUS.BAG IV SCH (09:21)
[2018-04-14] MEDS ORDERED: PIPERACILLIN/TAZOBACTAM 3.375 GM VIAL IVPB ONE ×2 (09:27→17:37)
[2018-04-14] MEDS ORDERED: DEXTROSE 5%-WATER - 50 ML IVPB ONE ×2 (09:27→17:37)
--- NOTE | 2018-04-14 09:42 | CON.ID ---
Consult Consult Specialty:: infectious diseases Referred by:: Reason for Consultation:: sepsis,lethargy - History of Present Illness Chief Complaint: lethargy History of Present Illness: patient unable to give history as she is lethargic and on bear hugger as she is hypothermic, history obtained from the charts 78 year old female with history of Parkinson's, dementia, and hypertension, admitted because of weakness, and lethargy. As per daughter , patient has been minimally responsive, and less communicative over the past three days. Patient' s appetite has decreased significantly, and over past day she has only consumed one bottle of "Pediasure" throughout the day. At baseline, patient is verbally communicative, and able to ambulate to bathroom with walker, and otherwise ambulates in wheelchair. She normally eats full, solid diet. Daughter also notes concern for liquid brown diarrhea that began this past Saturday. She denies melena, however endorses one episode of possibly red streak of blood mixed with the diarrhea. patient was noticed to be cold by her daughter and when the patient was brought here she was found to be and also currently is hypothermic patient has a known history of sacral ulcer and wound care have already looked at the patient - History Source History Provided By: Medical Record Limitations to Obtaining History: Clinical Condition - Past Medical History PORCELAIN TURNER: Yes: Dementia, Parkinson's. No: Seizure, Syncope Cardio/Vascular: Yes: HTN, Hyperlipdemia Musculoskeletal: Yes: Other (osteoporosis) Endocrine: Yes: Diabetes Mellitus - Past Surgical History Past Surgical History: Yes: Hysterectomy, Joint Replacement (Bilateral knee surgery) - Alcohol/Substance Use Hx Alcohol Use: No - Smoking History Smoking history: Never smoked Have you smoked in the past 12 months: No Home Medications - Allergies Allergies/Adverse Reactions: Allergies Allergy/AdvReac Type Severity Reaction Status Date / Time No Known Allergies Allergy Verified 04/13/18 21:45 - Home Medications Home Medications: Ambulatory Orders Acetaminophen 500 mg PO DAILY 04/13/18 Aspirin 81 mg PO DAILY 04/13/18 Ca/D3/Mag Ox/Zinc/Washtub Worker Helper/Ketan/Bor [Calcium 600+D3 Plus Caplet] 1 each PO DAILY Carbidopa/Levodopa [Carbidopa-Levo ER 50-200 Tab] 1 each PO DAILY 04/13/18 Olanzapine 5 mg PO HS 04/13/18 Rotigotine [Neupro] 1 each TD DAILY 04/13/18 Review of Systems Unable to obtain ROS, reason: unable to obtain Physical Exam Vital Signs: Vital Signs Temperature 97.7 F 04/14/18 08:11 Pulse Rate 99 H 04/14/18 08:53 Respiratory Rate 18 04/14/18 08:53 Blood Pressure 83/63 L 04/14/18 08:53 O2 Sat by Pulse Oximetry (%) 100 04/14/18 01:58 Constitutional: Yes: Other (lethargic) Eyes: Yes: Conjunctiva Clear Cardiovascular: Yes: Regular Rate and Rhythm Respiratory: Yes: Regular, On Nasal O2, Poor Air Entry (bases) Gastrointestinal: Yes: Normal Bowel Sounds, Soft Musculoskeletal: Yes: WNL Wound/Incision: Yes: Other (sacral decubitus ulcer) Neurological: Yes: Lethargy Labs: CBC, BMP 04/14/18 08:30 04/14/18 08:30 Imaging - Results Chest X-ray: Report Reviewed, Image Reviewed X-ray: Report Reviewed, Image Reviewed Cat Scan: Image Reviewed Assessment/Plan this patient with multiple medical problems coming in with sepsis and in hypothermia patient currently on zosyn and all the work up send sepsis lethargy weakness hypothermia plan close watch continue zosyn hydration rest as per the team await for blood cx if patient has any loose stool to work up
[2018-04-14] MEDS: PIPERACILLIN/TAZOB 3.375 GM 3.375 GM in DEXTROSE 5%-WATER - 50 ML IVPB SCH ×2 (09:59→17:42)
[2018-04-14] MEDS ORDERED: [UNRECOGNIZED DRUG - OTHER] PO SCH (10:00)
[2018-04-14] MEDS ORDERED: FLU VACCINE QUAD 60 MCG/0.5 ML (MDV 18-19) IM ONE (10:00)
[2018-04-14] MEDS ORDERED: PATIENT'S OWN MEDICATION (NON-FORMULARY) (Rotigotine [Neupro] 1 EACH) TD SCH (10:00)
[2018-04-14] MEDS ORDERED: ERTAPENEM SODIUM 1 GM in SODIUM CHLORIDE 50 ML IVPB SCH (10:00)
[2018-04-14] MEDS ORDERED: PANTOPRAZOLE SODIUM 40 MG VIAL IVPUSH SCH (10:00)
[2018-04-14] MEDS ORDERED: PIPERACILLIN/TAZOB 3.375 GM 3.375 GM in DEXTROSE 5%-WATER - 50 ML IVPB SCH (10:00)
--- NOTE | 2018-04-14 11:59 | PN ---
Teaching Attending Note Name of Resident: Kailey Dickinson ATTENDING PHYSICIAN STATEMENT I saw and evaluated the patient. I reviewed the resident's note and discussed the case with the resident. I agree with the resident's findings and plan as documented. SUBJECTIVE:lethargic, not verbal OBJECTIVE: Last Vital Signs Temp Pulse Resp BP Pulse Ox 97.7 F 95 H 16 75/46 L 100 04/14/18 08:11 04/14/18 11:51 04/14/18 11:51 04/14/18 11:51 04/14/18 01:58 General NAD CV S1 S2 RRR no murmur/rub/gallop Lungs coarse breath sounds anteriorly Abdomen soft NT/ND no suprapubic tenderness or distention ASSESSMENT AND PLAN: 78yo F with PMH Parkinson and HTN presented to the ER with AMS and found to be septic due to UTI/PNA and colitis 1. Sepsis due to UTI/PNA/diffuse colitis- Hypothermic on peewee hugger. received 2 L NS in the ER and currently on 3rd L NS. placed in trendelberg with MAP holding >60. Received Vanco/Zosyn in the ER and switched to Zosyn. UCx showing MDR E.Coli with sensitivity to Zosyn. BCx were not received. will order stat now with repeat lactate. Consult ID. TSH WNL 2. Acute metabolic encephalopathy- due to sepsis and hypoglycemia. BGM at this time 59. treat infection as stated. give Amp of D50. cont BGM Q6H. will consider switching IVF to D5NS if mental status remains poor. Head CT on arrival was no acute pathology. frequent neurochecks. maintain NPO until mental status has improved. swallow eval when alert 3. Bradycardia- due to hypothermia. now resolved 4. Diarrhea-due to colitis. treat as above. will d/c PPI as there is no signs of UGI bleed at this time and can increase chances of developing cdiff 5. BRBPR- hemrrhoids appreciated by ER on FRANCA. unable to repeat at this time. slight drop in hgb more likely dilutional but will monitor. will need colonoscopy in 6 weeks 6. Microcytic anemia- dilutional component. check iron studies. no indication for transfusion at this time 7. Stage 2 sacral ulcer- not visualized by me. wound care consulted. frequent re -positioning 8. HTN-currently hypotensive. hold oral antihypertensives. 9. Parkinsons- started on new Neupro patch recently. not currently on the patient (patient was evaluated for patch) which can add to lethargy and hypotension. will hold medications at this time 10. DVT ppx- will start hep sq as patient hgb has been stable. 11. will have patient evaluated by ICU team The care of this patient involved high complexity decision making to prevent further life threatening deterioration of the patient's condition and/or to evaluate & treat vital organ system(s) failure or risk of failure. 50 mins
--- NOTE | 2018-04-14 12:57 | PN ---
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, Physician History of Present Illness: pt not opening eyes - Current Medication List Current Medications: Active Medications Carbidopa/Levodopa (Sinemet *Cr* 50/200 -) 1 combo PO DAILY [facility] Last Admin: 04/14/18 09:24 Dose: Not Given Heparin Sodium (Porcine) (Heparin -) 5,000 unit SQ TID [facility] Lactated Ringer's (Lactated Ringers Solution) 1,000 ml in 1,000 mls @ 100 mls/ hr IV ASDIR [facility] Last Admin: 04/14/18 09:23 Dose: 100 mls/hr Piperacillin Sod/Tazobactam (Sod 3.375 gm/ Dextrose) 50 mls @ 100 mls/hr IVPB Q8H-IV [facility]; Protocol Last Admin: 04/14/18 09:59 Dose: Not Given Non-Formulary Medication (Ca/D3/Mag Ox/Zinc/Monomer Recovery Operator/Ketan/Bor [Calcium 600-D3 Plus Caplet]) 1 each PO DAILY [facility] Last Admin: 04/14/18 09:24 Dose: Not Given Non-Formulary Medication (Rotigotine [Neupro]) 1 each TD DAILY [facility] Olanzapine (Zyprexa -) 5 mg PO HS [facility] - Objective Vital Signs: Vital Signs Temperature 97.7 F 04/14/18 08:11 Pulse Rate 98 H 04/14/18 12:54 Respiratory Rate 18 04/14/18 12:54 Blood Pressure 68/54 L 04/14/18 12:54 O2 Sat by Pulse Oximetry (%) 100 04/14/18 01:58 Constitutional: Yes: Calm HENT: Yes: Atraumatic Neck: Yes: Supple Cardiovascular: Yes: Regular Rate and Rhythm Respiratory: Yes: Rales (few) Extremities: Yes: WNL Edema: No Neurological: Yes: Alert, Lethargy Labs: CBC, BMP 04/14/18 08:30 04/14/18 08:30 INR, PTT INR 1.13 (0.83-1.09) H 04/13/18 16:27 Problem List - Problems (1) Parkinson disease Assessment/Plan: on meds neuro follow up Code(s): G20 - PARKINSON'S DISEASE (2) Sepsis Assessment/Plan: on iv abx cxs sent id on board Code(s): A41.9 - SEPSIS, UNSPECIFIED ORGANISM (3) Urinary tract infection Assessment/Plan: iv abx cxs sent Code(s): N39.0 - URINARY TRACT INFECTION, SITE NOT SPECIFIED (4) Altered mental status Code(s): R41.82 - ALTERED MENTAL STATUS, UNSPECIFIED Qualifiers: Altered mental status type: disorientation Qualified Code(s): R41.0 - Disorientation, unspecified (5) Hypothermia Assessment/Plan: on bear hugger Code(s): T68.XXXA - HYPOTHERMIA, INITIAL ENCOUNTER Qualifiers: Encounter type: subsequent encounter Qualified Code(s): T68.XXXD - Hypothermia, subsequent encounter Assessment/Plan Active Medications Generic Name Dose Route Start Last Admin Trade Name Freq PRN Reason Stop Dose Admin Carbidopa/Levodopa 1 combo 04/14/18 10:00 04/14/18 09:24 Sinemet *Cr* 50/200 - PO Not Given DAILY [facility] Heparin Sodium (Porcine) 5,000 unit 04/14/18 14:00 04/14/18 17:39 Heparin - SQ 5,000 unit TID [facility] Administration Piperacillin Sod/Tazobactam 50 mls @ 100 mls/hr 04/14/18 10:00 04/14/18 17:42 Sod 3.375 gm/ Dextrose IVPB 100 mls/hr Q8H-IV [facility] Administration Protocol Dopamine HCl/Dextrose 400,000 mcg in 250 mls @ 11.354 mls/hr 04/14/18 13:30 04/14/18 13:30 Dopamine 400 Mg/D5w - IVPB 5 mcg/kg/min TITR [facility] 11.354 mls/hr Administration Protocol 5 MCG/KG/MIN Non-Formulary Medication 1 each 04/14/18 10:00 04/14/18 09:24 Ca/D3/Mag Ox/Zinc/Monomer Recovery Operator/Ketan/Bor [Calcium 600-D3 Plus Caplet] PO Not Given DAILY [facility] Non-Formulary Medication 1 each 04/14/18 10:00 Rotigotine [Neupro] TD DAILY [facility] Olanzapine 5 mg 04/14/18 22:00 Zyprexa - PO HS [facility]
[2018-04-14] MEDS ORDERED: VANCOMYCIN 1 GRAM (PRE-DOCKED) 1,000 MG/250 ML BAG IVPB ONE (13:03)
[2018-04-14] MEDS: DOPAMINE 400 MG/D5W - 400,000 MCG/250 ML INFUS.BAG IVPB SCH (13:30)
--- NOTE | 2018-04-14 13:52 | CONSULT ---
Consultation: REQUESTING PROVIDER: Dr. Morales CONSULT REQUEST: We have been asked to medically evaluate this patient for ( specify). HISTORY OF PRESENT ILLNESS: 78 year old female with history of Parkinson's, dementia, and hypertension, presents with complaint of generalized weakness, and lethargy admitted to the ICU for septic shock. Pt was given 3L of fluids with no improvement in BP. Admitted to ICU for central line access and pressors. REVIEW OF SYSTEMS: Unable to obtain. PHYSICAL EXAMINATION Vital Signs - 24 hr 04/13/18 04/13/18 04/13/18 15:59 16:00 16:52 Temperature 88.9 F L 88.4 F L 88.2 F L Pulse Rate 52 L Pulse Rate [ 54 L Left] Respiratory 10 16 Rate Blood Pressure 111/72 Blood Pressure 105/68 [Arm] O2 Sat by Pulse 100 80 L Oximetry (%) 04/13/18 04/13/18 04/13/18 17:25 18:35 19:16 Temperature 88.9 F L Pulse Rate Pulse Rate [ 62 72 Left] Respiratory 14 17 Rate Blood Pressure Blood Pressure 110/65 108/56 L [Arm] O2 Sat by Pulse 100 100 Oximetry (%) 04/13/18 04/13/18 04/13/18 19:35 20:43 21:24 Temperature 92.1 F L Pulse Rate Pulse Rate [ 77 Left] Respiratory 20 20 Rate Blood Pressure Blood Pressure 128/62 [Arm] O2 Sat by Pulse 97 98 100 Oximetry (%) 04/13/18 04/13/18 04/14/18 21:37 22:32 01:58 Temperature 92.1 F L 97 F L Pulse Rate 80 Pulse Rate [ 83 Left] Respiratory 18 18 Rate Blood Pressure 100/65 Blood Pressure 100/53 L [Arm] O2 Sat by Pulse 100 100 100 Oximetry (%) 04/14/18 04/14/18 04/14/18 02:00 06:00 08:11 Temperature 96.1 F L 96.5 F L 97.7 F Pulse Rate 65 77 99 H Pulse Rate [ Left] Respiratory 20 20 16 Rate Blood Pressure 102/56 L 82/52 L 92/41 L Blood Pressure [Arm] O2 Sat by Pulse Oximetry (%) 04/14/18 04/14/18 04/14/18 08:40 08:53 10:56 Temperature Pulse Rate 101 H 99 H 96 H Pulse Rate [ Left] Respiratory 18 18 18 Rate Blood Pressure 93/46 L 83/63 L 90/38 L Blood Pressure [Arm] O2 Sat by Pulse Oximetry (%) 04/14/18 04/14/18 04/14/18 11:14 11:51 12:16 Temperature Pulse Rate 99 H 95 H 93 H Pulse Rate [ Left] Respiratory 18 16 18 Rate Blood Pressure 78/51 L 75/46 L 75/37 L Blood Pressure [Arm] O2 Sat by Pulse Oximetry (%) 04/14/18 04/14/18 12:48 12:54 Temperature Pulse Rate 96 H 98 H Pulse Rate [ Left] Respiratory 18 18 Rate Blood Pressure 75/47 L 68/54 L Blood Pressure [Arm] O2 Sat by Pulse Oximetry (%) GENERAL: Somnolent, arousable to sternal rub. HEENT: AT/NC. Dry mucus membranes. NECK: Supple LAD/JVD. LUNGS: CTA B/L. No wheezes noted. Symmetric chest rise. HEART: RRR. Normal S1, S2. No murmurs noted. ABDOMEN: Soft, NT/ND. +BS in all 4Qs. MUSCULOSKELETAL: Normal range of motion at all joints. No bony deformities or tenderness. No CVA tenderness. EXTREMITIES: No peripheral edema noted. 2+ pedal pulses. NEUROLOGICAL: Arousable to sternal rub. SKIN: Warm, dry, normal turgor, no rashes or lesions noted. Abnormal Lab Results 04/13/18 04/13/18 04/13/18 16:27 16:27 17:31 WBC Hgb MCV MCH MCHC RDW Lymphocytes % (Manual) 7.2 L Nucleated RBC % 2 H ABG pH 7.33 L ABG pO2 at Pt Temp 178.0 H* D ABG HCO3 21.3 L ABG O2 Sat (Measured) 99.0 H ABG O2 Content 13.6 L ABG Base Excess -3.8 L VBG pH 7.26 L POC VBG pCO2 55.4 H Methemoglobin 2.0 H Sodium Chloride Anion Gap BUN Random Glucose Calcium C-Reactive Protein Total Protein Albumin Vitamin B12 Ur Specific [place] Urine Blood Ur Leukocyte Esterase 04/13/18 04/14/18 04/14/18 18:39 03:38 06:30 WBC 10.7 H Hgb 10.4 L MCV 69.1 L 69.6 L MCH 21.9 L 21.5 L MCHC 31.8 L 30.8 L RDW 17.8 H 17.7 H Lymphocytes % (Manual) Nucleated RBC % ABG pH ABG pO2 at Pt Temp ABG HCO3 ABG O2 Sat (Measured) ABG O2 Content ABG Base Excess VBG pH POC VBG pCO2 Methemoglobin Sodium Chloride Anion Gap BUN Random Glucose Calcium C-Reactive Protein Total Protein Albumin Vitamin B12 Ur Specific [place] 1.004 L Urine Blood 1+ H Ur Leukocyte Esterase 3+ H 04/14/18 04/14/18 04/14/18 06:30 06:30 08:30 WBC Hgb 10.6 L MCV 68.6 L MCH 21.5 L MCHC 31.3 L RDW 17.9 H Lymphocytes % (Manual) Nucleated RBC % ABG pH ABG pO2 at Pt Temp ABG HCO3 ABG O2 Sat (Measured) ABG O2 Content ABG Base Excess VBG pH POC VBG pCO2 Methemoglobin Sodium Chloride 114 H Anion Gap 7 L BUN 23 H Random Glucose 59 L Calcium C-Reactive Protein 8.9 H Total Protein 5.4 L Albumin 2.3 L Vitamin B12 4519 H Ur Specific [place] Urine Blood Ur Leukocyte Esterase 04/14/18 08:30 WBC Hgb MCV MCH MCHC RDW Lymphocytes % (Manual) Nucleated RBC % ABG pH ABG pO2 at Pt Temp ABG HCO3 ABG O2 Sat (Measured) ABG O2 Content ABG Base Excess VBG pH POC VBG pCO2 Methemoglobin Sodium 146 H Chloride 116 H Anion Gap 6 L BUN 23 H Random Glucose 59 L Calcium 8.4 L C-Reactive Protein Total Protein 5.5 L Albumin 2.4 L Vitamin B12 Ur Specific [place] Urine Blood Ur Leukocyte Esterase Active Medications Carbidopa/Levodopa (Sinemet *Cr* 50/200 -) 1 combo PO DAILY [facility] Last Admin: 04/14/18 09:24 Dose: Not Given Heparin Sodium (Porcine) (Heparin -) 5,000 unit SQ TID [facility] Last Admin: 04/14/18 17:39 Dose: 5,000 unit Lactated Ringer's (Lactated Ringers Solution) 1,000 ml in 1,000 mls @ 100 mls/ hr IV ASDIR [facility] Last Admin: 04/14/18 09:23 Dose: 100 mls/hr Piperacillin Sod/Tazobactam (Sod 3.375 gm/ Dextrose) 50 mls @ 100 mls/hr IVPB Q8H-IV [facility]; Protocol Last Admin: 04/14/18 17:42 Dose: 100 mls/hr Lactated Ringer's (Lactated Ringers Solution) 1,000 ml in 1,000 mls @ 500 mls/ hr IV ASDIR [facility] Last Admin: 04/14/18 13:30 Dose: 500 mls/hr Dopamine HCl/Dextrose (Dopamine 400 Mg/D5w -) 400,000 mcg in 250 mls @ 11.354 mls/hr IVPB TITR [facility]; Protocol Last Admin: 04/14/18 13:30 Dose: 5 mcg/kg/min, 11.354 mls/hr Non-Formulary Medication (Ca/D3/Mag Ox/Zinc/Camp Tender/Ketan/Bor [Calcium 600-D3 Plus Caplet]) 1 each PO DAILY [facility] Last Admin: 04/14/18 09:24 Dose: Not Given Non-Formulary Medication (Rotigotine [Neupro]) 1 each TD DAILY [facility] Olanzapine (Zyprexa -) 5 mg PO HS [facility] ASSESSMENT/PLAN: 78 y/o female with PMH of parkinsons, dementia, HTN presents with weakness, lethargy, AMS presented to the ICU with septic shock 2/2 Neurology #Acute Metabolic Encephalopathy -likely 2/2 infection, unclear etiology at this time -Neuro checks -maintain NPO until mental status improves -IV antibiotics #Parkinson's Dementia -hold home PO meds as pt not safe to michaela PO due to minimal arousability -cont meds via NGT per neuro recs Pulmonary -satting 98% on 3L NC -cont to monitor SpO2 Cardiovascular -Dopamine drip started -BP stable, cont to monitor -Maintain MAP >65 GI #Possible c. diff -lactoferrin pending -+FOBT -monitor H/H -monitor stools ID #Septic shock 2/2 UTI/PNA/Diffuse colitis -UCx showed MDR E. coli w/ sensitivity to Zosyn -IV Zosyn and Vanc -F/u BCx results -ID recs appreciated Lines -Central line placed 04/14/18 Dispo: We will continue to follow the patient. Thank you for this consultative opportunity. Visit type - Emergency Visit Emergency Visit: Yes ED Registration Date: 04/13/18 Care time: The patient presented to the Emergency Department on the above date and was hospitalized for further evaluation of their emergent condition. - New Patient This patient is new to me today: Yes Date on this admission: 04/14/18 - Critical Care Critical Care patient: Yes Total Critical Care Time (in minutes): 60 Critical Care Statement: The care of this patient involved high complexity decision making to prevent further life threatening deterioration of the patient 's condition and/or to evaluate & treat vital organ system(s) failure or risk of failure.
--- NOTE | 2018-04-14 15:08 | PN ---
Teaching Attending Note Name of Resident: Yajaira Dillard ATTENDING PHYSICIAN STATEMENT I saw and evaluated the patient. I reviewed the resident's note and discussed the case with the resident. I agree with the resident's findings and plan as documented. SUBJECTIVE: Patient seen and examined in the ICU. Transferred from the medical floor due to refractory hypotension despite receiving 3 Liters of IVF. Consent taken from NOK and Right IJ TLC was inserted under direct US guidance. Intake & Output 04/11/18 04/12/18 04/13/18 04/14/18 23:59 23:59 23:59 23:59 Intake Total 1300 Output Total 120 Balance 1180 Weight 150 lb 133 lb 8 oz Last Vital Signs Temp Pulse Resp BP Pulse Ox 97.7 F 98 H 18 68/54 L 98 04/14/18 08:11 04/14/18 12:54 04/14/18 13:30 04/14/18 12:54 04/14/18 13:30 Active Medications Carbidopa/Levodopa (Sinemet *Cr* 50/200 -) 1 combo PO DAILY VASYL Last Admin: 04/14/18 09:24 Dose: Not Given Heparin Sodium (Porcine) (Heparin -) 5,000 unit SQ TID VASYL Lactated Ringer's (Lactated Ringers Solution) 1,000 ml in 1,000 mls @ 100 mls/ hr IV ASDIR VASYL Last Admin: 04/14/18 09:23 Dose: 100 mls/hr Piperacillin Sod/Tazobactam (Sod 3.375 gm/ Dextrose) 50 mls @ 100 mls/hr IVPB Q8H-IV VASYL; Protocol Last Admin: 04/14/18 09:59 Dose: Not Given Lactated Ringer's (Lactated Ringers Solution) 1,000 ml in 1,000 mls @ 500 mls/ hr IV ASDIR VASYL Dopamine HCl/Dextrose (Dopamine 400 Mg/D5w -) 400,000 mcg in 250 mls @ 11.354 mls/hr IVPB TITR VASYL; Protocol Non-Formulary Medication (Ca/D3/Mag Ox/Zinc/Circulation Director/Ketan/Bor [Calcium 600-D3 Plus Caplet]) 1 each PO DAILY VASYL Last Admin: 04/14/18 09:24 Dose: Not Given Non-Formulary Medication (Rotigotine [Neupro]) 1 each TD DAILY VASYL Olanzapine (Zyprexa -) 5 mg PO HS VAYSL GENERAL: Lethargic, confused HEAD: Normal with no signs of trauma. EYES: sclera anicteric, conjunctiva clear. EARS, NOSE, THROAT: oropharynx clear without exudates. dry mucous membranes. NECK: Normal range of motion, supple without lymphadenopathy, JVD, or masses. LUNGS: few scattered rhonchi, no wheeze. No accessory muscle use. HEART: Regular rate and rhythm, normal S1 and S2 without murmur, rub or gallop. ABDOMEN: Soft, nontender, not distended, normoactive bowel sounds, no guarding, no rebound, no masses. No hepatomegaly or splenomegaly. MUSCULOSKELETAL: Normal range of motion at all joints. No bony deformities or tenderness. No CVA tenderness. UPPER EXTREMITIES: 2+ pulses, warm, well-perfused. No cyanosis. No clubbing. Cap refill <2 seconds. No peripheral edema. LOWER EXTREMITIES: 2+ pulses, warm, well-perfused. No calf tenderness. No peripheral edema. NEUROLOGICAL: Lethargic, non-focal SKIN: Warm, dry, normal turgor, no rashes or lesions noted. Laboratory Results - last 24 hr 04/13/18 04/13/18 04/13/18 16:05 16:27 16:27 WBC 13.4 H RBC 5.40 H Hgb 11.9 Hct 37.6 MCV 69.5 L MCH 22.0 L MCHC 31.6 L RDW 18.0 H Plt Count 171 D MPV 9.1 Absolute Neuts (auto) 10.6 H Neutrophils % 78.6 D Neutrophils % (Manual) 74.5 Band Neutrophils % 5.1 Lymphocytes % 16.9 D Lymphocytes % (Manual) 7.2 L Monocytes % 4.0 Monocytes % (Manual) 4 Eosinophils % 0.1 Eosinophils % (Manual) 0.0 Basophils % 0.4 Basophils % (Manual) 0.0 Myelocytes % (Man) 0 Promyelocytes % (Man) 0 Blast Cells % (Manual) 0 Nucleated RBC % 2 H Metamyelocytes 2 Hypochromia 0 Platelet Estimate Normal Platelet Comment Polychromasia 0 Poikilocytosis 1+ Anisocytosis 1+ Microcytosis 1+ Macrocytosis 0 Target Cells 1+ Lizzy Cells 1+ Acanthocytes (Spur) 1+ ESR PT with INR 13.30 H INR 1.13 H PTT (Actin FS) 37.2 H Anticoagulation Therapy Puncture Site ABG pH ABG pCO2 at Pt Temp ABG pO2 at Pt Temp ABG HCO3 ABG O2 Sat (Measured) ABG O2 Content ABG Base Excess Gaetano Test VBG pH POC VBG pCO2 POC VBG pO2 Mixed VBG HCO3 Carboxyhemoglobin Methemoglobin O2 Delivery Device Oxygen Flow Rate Vent Mode Vent Rate Mechanical Rate Pressure Support Vent Sodium Potassium Chloride Carbon Dioxide Anion Gap BUN Creatinine Creat Clearance w eGFR POC Glucometer Random Glucose Hemoglobin A1c % Lactic Acid Calcium Phosphorus Magnesium Total Bilirubin AST ALT Alkaline Phosphatase Troponin I C-Reactive Protein Total Protein Albumin Vitamin B12 TSH Urine Color Urine Appearance Urine pH Ur Specific [place] Urine Protein Urine Glucose (UA) Urine Ketones Urine Blood Urine Nitrite Urine Bilirubin Urine Urobilinogen Ur Leukocyte Esterase Urine WBC (Auto) Urine RBC (Auto) Ur Epithelial Cells Urine Bacteria Stool Occult Blood Positive 04/13/18 04/13/18 04/13/18 16:27 16:27 16:27 WBC RBC Hgb Hct MCV MCH MCHC RDW Plt Count MPV Absolute Neuts (auto) Neutrophils % Neutrophils % (Manual) Band Neutrophils % Lymphocytes % Lymphocytes % (Manual) Monocytes % Monocytes % (Manual) Eosinophils % Eosinophils % (Manual) Basophils % Basophils % (Manual) Myelocytes % (Man) Promyelocytes % (Man) Blast Cells % (Manual) Nucleated RBC % Metamyelocytes Hypochromia Platelet Estimate Platelet Comment Polychromasia Poikilocytosis Anisocytosis Microcytosis Macrocytosis Target Cells Lizzy Cells Acanthocytes (Spur) ESR PT with INR INR PTT (Actin FS) Anticoagulation Therapy Puncture Site ABG pH ABG pCO2 at Pt Temp ABG pO2 at Pt Temp ABG HCO3 ABG O2 Sat (Measured) ABG O2 Content ABG Base Excess Gaetano Test VBG pH 7.26 L POC VBG pCO2 55.4 H POC VBG pO2 45.8 Mixed VBG HCO3 24.1 Carboxyhemoglobin Methemoglobin O2 Delivery Device Oxygen Flow Rate Vent Mode Vent Rate Mechanical Rate Pressure Support Vent Sodium 143 Potassium 5.0 Chloride 113 H Carbon Dioxide 22 Anion Gap 9 BUN 30 H Creatinine 0.8 Creat Clearance w eGFR > 60 POC Glucometer Random Glucose 78 Hemoglobin A1c % Lactic Acid 1.1 Calcium 8.7 Phosphorus Magnesium Total Bilirubin 0.3 AST 43 H ALT 12 L Alkaline Phosphatase 92 Troponin I < 0.02 C-Reactive Protein Total Protein 7.0 Albumin 3.0 L Vitamin B12 TSH Urine Color Urine Appearance Urine pH Ur Specific [place] Urine Protein Urine Glucose (UA) Urine Ketones Urine Blood Urine Nitrite Urine Bilirubin Urine Urobilinogen Ur Leukocyte Esterase Urine WBC (Auto) Urine RBC (Auto) Ur Epithelial Cells Urine Bacteria Stool Occult Blood 04/13/18 04/13/18 04/14/18 17:31 18:39 03:38 WBC 10.7 H RBC 5.14 Hgb 11.3 Hct 35.5 MCV 69.1 L MCH 21.9 L MCHC 31.8 L RDW 17.8 H Plt Count 155 MPV 9.2 Absolute Neuts (auto) Neutrophils % Neutrophils % (Manual) Band Neutrophils % Lymphocytes % Lymphocytes % (Manual) Monocytes % Monocytes % (Manual) Eosinophils % Eosinophils % (Manual) Basophils % Basophils % (Manual) Myelocytes % (Man) Promyelocytes % (Man) Blast Cells % (Manual) Nucleated RBC % Metamyelocytes Hypochromia Platelet Estimate Platelet Comment Polychromasia Poikilocytosis Anisocytosis Microcytosis Macrocytosis Target Cells Lizzy Cells Acanthocytes (Spur) ESR PT with INR INR PTT (Actin FS) Anticoagulation Therapy No Result Required. Puncture Site No Result Required. ABG pH 7.33 L ABG pCO2 at Pt Temp 41.9 ABG pO2 at Pt Temp 178.0 H* D ABG HCO3 21.3 L ABG O2 Sat (Measured) 99.0 H ABG O2 Content 13.6 L ABG Base Excess -3.8 L Gaetano Test Positive VBG pH POC VBG pCO2 POC VBG pO2 Mixed VBG HCO3 Carboxyhemoglobin 1.0 Methemoglobin 2.0 H O2 Delivery Device No Result Required. Oxygen Flow Rate No Result Required. Vent Mode No Result Required. Vent Rate No Result Required. Mechanical Rate No Result Required. Pressure Support Vent No Result Required. Sodium Potassium Chloride Carbon Dioxide Anion Gap BUN Creatinine Creat Clearance w eGFR POC Glucometer Random Glucose Hemoglobin A1c % Lactic Acid Calcium Phosphorus Magnesium Total Bilirubin AST ALT Alkaline Phosphatase Troponin I C-Reactive Protein Total Protein Albumin Vitamin B12 TSH Urine Color Ltyellow Urine Appearance Slcloudy Urine pH 5.0 Ur Specific [place] 1.004 L Urine Protein Negative Urine Glucose (UA) Negative Urine Ketones Negative Urine Blood 1+ H Urine Nitrite Negative Urine Bilirubin Negative Urine Urobilinogen Negative Ur Leukocyte Esterase 3+ H Urine WBC (Auto) 40 Urine RBC (Auto) 4 Ur Epithelial Cells Rare Urine Bacteria Rare Stool Occult Blood 04/14/18 04/14/18 04/14/18 06:30 06:30 06:30 WBC 9.2 RBC 4.86 Hgb 10.4 L Hct 33.8 MCV 69.6 L MCH 21.5 L MCHC 30.8 L RDW 17.7 H Plt Count 135 MPV 8.9 Absolute Neuts (auto) Neutrophils % Neutrophils % (Manual) Band Neutrophils % Lymphocytes % Lymphocytes % (Manual) Monocytes % Monocytes % (Manual) Eosinophils % Eosinophils % (Manual) Basophils % Basophils % (Manual) Myelocytes % (Man) Promyelocytes % (Man) Blast Cells % (Manual) Nucleated RBC % Metamyelocytes Hypochromia Platelet Estimate Platelet Comment Polychromasia Poikilocytosis Anisocytosis Microcytosis Macrocytosis Target Cells Morehead Cells Acanthocytes (Spur) ESR PT with INR INR PTT (Actin FS) Anticoagulation Therapy Puncture Site ABG pH ABG pCO2 at Pt Temp ABG pO2 at Pt Temp ABG HCO3 ABG O2 Sat (Measured) ABG O2 Content ABG Base Excess Gaetano Test VBG pH POC VBG pCO2 POC VBG pO2 Mixed VBG HCO3 Carboxyhemoglobin Methemoglobin O2 Delivery Device Oxygen Flow Rate Vent Mode Vent Rate Mechanical Rate Pressure Support Vent Sodium 144 Potassium 5.0 Chloride 114 H Carbon Dioxide 23 Anion Gap 7 L BUN 23 H Creatinine 0.9 Creat Clearance w eGFR > 60 POC Glucometer Random Glucose 59 L Hemoglobin A1c % 6.2 Lactic Acid Calcium 8.7 Phosphorus 3.9 Magnesium 2.1 Total Bilirubin 0.2 AST 26 ALT 13 Alkaline Phosphatase 71 Troponin I C-Reactive Protein Total Protein 5.4 L Albumin 2.3 L Vitamin B12 TSH Urine Color Urine Appearance Urine pH Ur Specific [place] Urine Protein Urine Glucose (UA) Urine Ketones Urine Blood Urine Nitrite Urine Bilirubin Urine Urobilinogen Ur Leukocyte Esterase Urine WBC (Auto) Urine RBC (Auto) Ur Epithelial Cells Urine Bacteria Stool Occult Blood 04/14/18 04/14/18 04/14/18 06:30 06:30 08:28 WBC RBC Hgb Hct MCV MCH MCHC RDW Plt Count MPV Absolute Neuts (auto) Neutrophils % Neutrophils % (Manual) Band Neutrophils % Lymphocytes % Lymphocytes % (Manual) Monocytes % Monocytes % (Manual) Eosinophils % Eosinophils % (Manual) Basophils % Basophils % (Manual) Myelocytes % (Man) Promyelocytes % (Man) Blast Cells % (Manual) Nucleated RBC % Metamyelocytes Hypochromia Platelet Estimate Platelet Comment Polychromasia Poikilocytosis Anisocytosis Microcytosis Macrocytosis Target Cells Morehead Cells Acanthocytes (Spur) ESR 20 PT with INR INR PTT (Actin FS) Anticoagulation Therapy Puncture Site ABG pH ABG pCO2 at Pt Temp ABG pO2 at Pt Temp ABG HCO3 ABG O2 Sat (Measured) ABG O2 Content ABG Base Excess Gaetano Test VBG pH POC VBG pCO2 POC VBG pO2 Mixed VBG HCO3 Carboxyhemoglobin Methemoglobin O2 Delivery Device Oxygen Flow Rate Vent Mode Vent Rate Mechanical Rate Pressure Support Vent Sodium Potassium Chloride Carbon Dioxide Anion Gap BUN Creatinine Creat Clearance w eGFR POC Glucometer 69 Random Glucose Hemoglobin A1c % Lactic Acid Calcium Phosphorus Magnesium Total Bilirubin AST ALT Alkaline Phosphatase Troponin I C-Reactive Protein 8.9 H Total Protein Albumin Vitamin B12 4519 H TSH 1.65 Urine Color Urine Appearance Urine pH Ur Specific [place] Urine Protein Urine Glucose (UA) Urine Ketones Urine Blood Urine Nitrite Urine Bilirubin Urine Urobilinogen Ur Leukocyte Esterase Urine WBC (Auto) Urine RBC (Auto) Ur Epithelial Cells Urine Bacteria Stool Occult Blood 04/14/18 04/14/18 04/14/18 08:30 08:30 08:30 WBC 9.8 RBC 4.92 Hgb 10.6 L Hct 33.8 MCV 68.6 L MCH 21.5 L MCHC 31.3 L RDW 17.9 H Plt Count 144 MPV 8.7 Absolute Neuts (auto) Neutrophils % Neutrophils % (Manual) Band Neutrophils % Lymphocytes % Lymphocytes % (Manual) Monocytes % Monocytes % (Manual) Eosinophils % Eosinophils % (Manual) Basophils % Basophils % (Manual) Myelocytes % (Man) Promyelocytes % (Man) Blast Cells % (Manual) Nucleated RBC % Metamyelocytes Hypochromia Platelet Estimate Platelet Comment No clumping noted Polychromasia Poikilocytosis Anisocytosis Microcytosis Macrocytosis Target Cells Lizzy Cells Acanthocytes (Spur) ESR PT with INR INR PTT (Actin FS) Anticoagulation Therapy Puncture Site ABG pH ABG pCO2 at Pt Temp ABG pO2 at Pt Temp ABG HCO3 ABG O2 Sat (Measured) ABG O2 Content ABG Base Excess Gaetano Test VBG pH POC VBG pCO2 POC VBG pO2 Mixed VBG HCO3 Carboxyhemoglobin Methemoglobin O2 Delivery Device Oxygen Flow Rate Vent Mode Vent Rate Mechanical Rate Pressure Support Vent Sodium 146 H Potassium 4.7 Chloride 116 H Carbon Dioxide 24 Anion Gap 6 L BUN 23 H Creatinine 1.0 Creat Clearance w eGFR 53.35 POC Glucometer Random Glucose 59 L Hemoglobin A1c % Lactic Acid 0.8 Calcium 8.4 L Phosphorus Magnesium Total Bilirubin 0.2 AST 24 ALT 14 Alkaline Phosphatase 74 Troponin I C-Reactive Protein Total Protein 5.5 L Albumin 2.4 L Vitamin B12 TSH Urine Color Urine Appearance Urine pH Ur Specific [place] Urine Protein Urine Glucose (UA) Urine Ketones Urine Blood Urine Nitrite Urine Bilirubin Urine Urobilinogen Ur Leukocyte Esterase Urine WBC (Auto) Urine RBC (Auto) Ur Epithelial Cells Urine Bacteria Stool Occult Blood 04/14/18 12:52 WBC RBC Hgb Hct MCV MCH MCHC RDW Plt Count MPV Absolute Neuts (auto) Neutrophils % Neutrophils % (Manual) Band Neutrophils % Lymphocytes % Lymphocytes % (Manual) Monocytes % Monocytes % (Manual) Eosinophils % Eosinophils % (Manual) Basophils % Basophils % (Manual) Myelocytes % (Man) Promyelocytes % (Man) Blast Cells % (Manual) Nucleated RBC % Metamyelocytes Hypochromia Platelet Estimate Platelet Comment Polychromasia Poikilocytosis Anisocytosis Microcytosis Macrocytosis Target Cells Morehead Cells Acanthocytes (Spur) ESR PT with INR INR PTT (Actin FS) Anticoagulation Therapy Puncture Site ABG pH ABG pCO2 at Pt Temp ABG pO2 at Pt Temp ABG HCO3 ABG O2 Sat (Measured) ABG O2 Content ABG Base Excess Gaetano Test VBG pH POC VBG pCO2 POC VBG pO2 Mixed VBG HCO3 Carboxyhemoglobin Methemoglobin O2 Delivery Device Oxygen Flow Rate Vent Mode Vent Rate Mechanical Rate Pressure Support Vent Sodium Potassium Chloride Carbon Dioxide Anion Gap BUN Creatinine Creat Clearance w eGFR POC Glucometer 70 Random Glucose Hemoglobin A1c % Lactic Acid Calcium Phosphorus Magnesium Total Bilirubin AST ALT Alkaline Phosphatase Troponin I C-Reactive Protein Total Protein Albumin Vitamin B12 TSH Urine Color Urine Appearance Urine pH Ur Specific [place] Urine Protein Urine Glucose (UA) Urine Ketones Urine Blood Urine Nitrite Urine Bilirubin Urine Urobilinogen Ur Leukocyte Esterase Urine WBC (Auto) Urine RBC (Auto) Ur Epithelial Cells Urine Bacteria Stool Occult Blood ASSESSMENT/PLAN: Sepsis due to UTI / PNA / Colitis Metabolic Encephalopathy Bradycardia Diarrhea GI Bleed Anemia HTN Sacral decubitus ulcer Parkinson's Broad ABX per ID Measure CVP Currently on Dopamine @ 5 mcq, titrate to keep MAP > 65. If refractory hypotension, change to NE IVF O2 to maintain saturation Normal transfusion thresholds Local wound care Check lactic acid VTE prophylaxis ICU monitoring Dr Collins Critical care time spent in reviewing chart, evaluating patient and formulating plan - 36 minutes.
--- NOTE | 2018-04-14 15:19 | PROC ---
Central Line Insertion Indication: CVP Monitoring, Sepsis, Vasopressor Risks and Benefits Explained: Yes Consent on Chart: Yes (Oral consent) Central Line: Triple Lumen Catheter Anesthesia: 1% Lidocaine Sterile Technique: Yes Ultrasound Guided Assistance: Yes Position: Right Internal Jugular Post Insertion: Yes: Chest X-Ray Ordered Sterile Dressing Applied: Yes
--- NOTE | 2018-04-14 15:43 | PN ---
Physical Exam: SUBJECTIVE: Patient seen and examined at bedside. Patient is very confused, lethargic only response to sternal rub and noncommunicative. Patients BP was not responsive to fluids despite receiving 3liters of fluids and was transferred to ICU where a central line was placed and patient was started on dopamine drip. OBJECTIVE: Vital Signs Period Temp Pulse Resp BP Sys/Campbell Pulse Ox Last 24 Hr 88.2 F-97.7 F 52-101 10-20 68-128/37-72 80-100 GENERAL: The patient is lethargic, only arousable to sternal rub EYES: no scleral icterus. NECK:no JVD, no lymphadenopathy LUNGS: Breath sounds equal, clear to auscultation bilaterally, no wheezes, no crackles, no accessory muscle use. HEART: Regular rate and rhythm, S1, S2 without murmur, rub or gallop. ABDOMEN: Soft, nontender, nondistended, normoactive bowel sounds, no guarding, no rebound, no hepatosplenomegaly, no masses. EXTREMITIES: 2+ pulses, warm, well-perfused, no edema. NEUROLOGICAL: Cranial nerves II through XII grossly intact. Normal speech, gait not observed. PSYCH: Normal mood, normal affect. SKIN: Warm, dry, normal turgor, no rashes or lesions noted Laboratory Results - last 24 hr 04/13/18 04/13/18 04/13/18 16:05 16:27 16:27 WBC 13.4 H RBC 5.40 H Hgb 11.9 Hct 37.6 MCV 69.5 L MCH 22.0 L MCHC 31.6 L RDW 18.0 H Plt Count 171 D MPV 9.1 Absolute Neuts (auto) 10.6 H Neutrophils % 78.6 D Neutrophils % (Manual) 74.5 Band Neutrophils % 5.1 Lymphocytes % 16.9 D Lymphocytes % (Manual) 7.2 L Monocytes % 4.0 Monocytes % (Manual) 4 Eosinophils % 0.1 Eosinophils % (Manual) 0.0 Basophils % 0.4 Basophils % (Manual) 0.0 Myelocytes % (Man) 0 Promyelocytes % (Man) 0 Blast Cells % (Manual) 0 Nucleated RBC % 2 H Metamyelocytes 2 Hypochromia 0 Platelet Estimate Normal Platelet Comment Polychromasia 0 Poikilocytosis 1+ Anisocytosis 1+ Microcytosis 1+ Macrocytosis 0 Target Cells 1+ Lizzy Cells 1+ Acanthocytes (Spur) 1+ ESR PT with INR 13.30 H INR 1.13 H PTT (Actin FS) 37.2 H Anticoagulation Therapy Puncture Site ABG pH ABG pCO2 at Pt Temp ABG pO2 at Pt Temp ABG HCO3 ABG O2 Sat (Measured) ABG O2 Content ABG Base Excess Gaetano Test VBG pH POC VBG pCO2 POC VBG pO2 Mixed VBG HCO3 Carboxyhemoglobin Methemoglobin O2 Delivery Device Oxygen Flow Rate Vent Mode Vent Rate Mechanical Rate Pressure Support Vent Sodium Potassium Chloride Carbon Dioxide Anion Gap BUN Creatinine Creat Clearance w eGFR POC Glucometer Random Glucose Hemoglobin A1c % Lactic Acid Calcium Phosphorus Magnesium Total Bilirubin AST ALT Alkaline Phosphatase Troponin I C-Reactive Protein Total Protein Albumin Vitamin B12 TSH Urine Color Urine Appearance Urine pH Ur Specific [place]ron Urine Protein Urine Glucose (UA) Urine Ketones Urine Blood Urine Nitrite Urine Bilirubin Urine Urobilinogen Ur Leukocyte Esterase Urine WBC (Auto) Urine RBC (Auto) Ur Epithelial Cells Urine Bacteria Stool Occult Blood Positive 04/13/18 04/13/18 04/13/18 16:27 16:27 16:27 WBC RBC Hgb Hct MCV MCH MCHC RDW Plt Count MPV Absolute Neuts (auto) Neutrophils % Neutrophils % (Manual) Band Neutrophils % Lymphocytes % Lymphocytes % (Manual) Monocytes % Monocytes % (Manual) Eosinophils % Eosinophils % (Manual) Basophils % Basophils % (Manual) Myelocytes % (Man) Promyelocytes % (Man) Blast Cells % (Manual) Nucleated RBC % Metamyelocytes Hypochromia Platelet Estimate Platelet Comment Polychromasia Poikilocytosis Anisocytosis Microcytosis Macrocytosis Target Cells [place] Cells Acanthocytes (Spur) ESR PT with INR INR PTT (Actin FS) Anticoagulation Therapy Puncture Site ABG pH ABG pCO2 at Pt Temp ABG pO2 at Pt Temp ABG HCO3 ABG O2 Sat (Measured) ABG O2 Content ABG Base Excess Gaetano Test VBG pH 7.26 L POC VBG pCO2 55.4 H POC VBG pO2 45.8 Mixed VBG HCO3 24.1 Carboxyhemoglobin Methemoglobin O2 Delivery Device Oxygen Flow Rate Vent Mode Vent Rate Mechanical Rate Pressure Support Vent Sodium 143 Potassium 5.0 Chloride 113 H Carbon Dioxide 22 Anion Gap 9 BUN 30 H Creatinine 0.8 Creat Clearance w eGFR > 60 POC Glucometer Random Glucose 78 Hemoglobin A1c % Lactic Acid 1.1 Calcium 8.7 Phosphorus Magnesium Total Bilirubin 0.3 AST 43 H ALT 12 L Alkaline Phosphatase 92 Troponin I < 0.02 C-Reactive Protein Total Protein 7.0 Albumin 3.0 L Vitamin B12 TSH Urine Color Urine Appearance Urine pH Ur Specific Wedron Urine Protein Urine Glucose (UA) Urine Ketones Urine Blood Urine Nitrite Urine Bilirubin Urine Urobilinogen Ur Leukocyte Esterase Urine WBC (Auto) Urine RBC (Auto) Ur Epithelial Cells Urine Bacteria Stool Occult Blood 04/13/18 04/13/18 04/14/18 17:31 18:39 03:38 WBC 10.7 H RBC 5.14 Hgb 11.3 Hct 35.5 MCV 69.1 L MCH 21.9 L MCHC 31.8 L RDW 17.8 H Plt Count 155 MPV 9.2 Absolute Neuts (auto) Neutrophils % Neutrophils % (Manual) Band Neutrophils % Lymphocytes % Lymphocytes % (Manual) Monocytes % Monocytes % (Manual) Eosinophils % Eosinophils % (Manual) Basophils % Basophils % (Manual) Myelocytes % (Man) Promyelocytes % (Man) Blast Cells % (Manual) Nucleated RBC % Metamyelocytes Hypochromia Platelet Estimate Platelet Comment Polychromasia Poikilocytosis Anisocytosis Microcytosis Macrocytosis Target Cells [place] Cells Acanthocytes (Spur) ESR PT with INR INR PTT (Actin FS) Anticoagulation Therapy No Result Required. Puncture Site No Result Required. ABG pH 7.33 L ABG pCO2 at Pt Temp 41.9 ABG pO2 at Pt Temp 178.0 H* D ABG HCO3 21.3 L ABG O2 Sat (Measured) 99.0 H ABG O2 Content 13.6 L ABG Base Excess -3.8 L Gaetano Test Positive VBG pH POC VBG pCO2 POC VBG pO2 Mixed VBG HCO3 Carboxyhemoglobin 1.0 Methemoglobin 2.0 H O2 Delivery Device No Result Required. Oxygen Flow Rate No Result Required. Vent Mode No Result Required. Vent Rate No Result Required. Mechanical Rate No Result Required. Pressure Support Vent No Result Required. Sodium Potassium Chloride Carbon Dioxide Anion Gap BUN Creatinine Creat Clearance w eGFR POC Glucometer Random Glucose Hemoglobin A1c % Lactic Acid Calcium Phosphorus Magnesium Total Bilirubin AST ALT Alkaline Phosphatase Troponin I C-Reactive Protein Total Protein Albumin Vitamin B12 TSH Urine Color Ltyellow Urine Appearance Slcloudy Urine pH 5.0 Ur Specific Wedron 1.004 L Urine Protein Negative Urine Glucose (UA) Negative Urine Ketones Negative Urine Blood 1+ H Urine Nitrite Negative Urine Bilirubin Negative Urine Urobilinogen Negative Ur Leukocyte Esterase 3+ H Urine WBC (Auto) 40 Urine RBC (Auto) 4 Ur Epithelial Cells Rare Urine Bacteria Rare Stool Occult Blood 04/14/18 04/14/18 04/14/18 06:30 06:30 06:30 WBC 9.2 RBC 4.86 Hgb 10.4 L Hct 33.8 MCV 69.6 L MCH 21.5 L MCHC 30.8 L RDW 17.7 H Plt Count 135 MPV 8.9 Absolute Neuts (auto) Neutrophils % Neutrophils % (Manual) Band Neutrophils % Lymphocytes % Lymphocytes % (Manual) Monocytes % Monocytes % (Manual) Eosinophils % Eosinophils % (Manual) Basophils % Basophils % (Manual) Myelocytes % (Man) Promyelocytes % (Man) Blast Cells % (Manual) Nucleated RBC % Metamyelocytes Hypochromia Platelet Estimate Platelet Comment Polychromasia Poikilocytosis Anisocytosis Microcytosis Macrocytosis Target Cells [place] Cells Acanthocytes (Spur) ESR PT with INR INR PTT (Actin FS) Anticoagulation Therapy Puncture Site ABG pH ABG pCO2 at Pt Temp ABG pO2 at Pt Temp ABG HCO3 ABG O2 Sat (Measured) ABG O2 Content ABG Base Excess Gaetano Test VBG pH POC VBG pCO2 POC VBG pO2 Mixed VBG HCO3 Carboxyhemoglobin Methemoglobin O2 Delivery Device Oxygen Flow Rate Vent Mode Vent Rate Mechanical Rate Pressure Support Vent Sodium 144 Potassium 5.0 Chloride 114 H Carbon Dioxide 23 Anion Gap 7 L BUN 23 H Creatinine 0.9 Creat Clearance w eGFR > 60 POC Glucometer Random Glucose 59 L Hemoglobin A1c % 6.2 Lactic Acid Calcium 8.7 Phosphorus 3.9 Magnesium 2.1 Total Bilirubin 0.2 AST 26 ALT 13 Alkaline Phosphatase 71 Troponin I C-Reactive Protein Total Protein 5.4 L Albumin 2.3 L Vitamin B12 TSH Urine Color Urine Appearance Urine pH Ur Specific Wedron Urine Protein Urine Glucose (UA) Urine Ketones Urine Blood Urine Nitrite Urine Bilirubin Urine Urobilinogen Ur Leukocyte Esterase Urine WBC (Auto) Urine RBC (Auto) Ur Epithelial Cells Urine Bacteria Stool Occult Blood 04/14/18 04/14/18 04/14/18 06:30 06:30 08:28 WBC RBC Hgb Hct MCV MCH MCHC RDW Plt Count MPV Absolute Neuts (auto) Neutrophils % Neutrophils % (Manual) Band Neutrophils % Lymphocytes % Lymphocytes % (Manual) Monocytes % Monocytes % (Manual) Eosinophils % Eosinophils % (Manual) Basophils % Basophils % (Manual) Myelocytes % (Man) Promyelocytes % (Man) Blast Cells % (Manual) Nucleated RBC % Metamyelocytes Hypochromia Platelet Estimate Platelet Comment Polychromasia Poikilocytosis Anisocytosis Microcytosis Macrocytosis Target Cells [place] Cells Acanthocytes (Spur) ESR 20 PT with INR INR PTT (Actin FS) Anticoagulation Therapy Puncture Site ABG pH ABG pCO2 at Pt Temp ABG pO2 at Pt Temp ABG HCO3 ABG O2 Sat (Measured) ABG O2 Content ABG Base Excess Gaetano Test VBG pH POC VBG pCO2 POC VBG pO2 Mixed VBG HCO3 Carboxyhemoglobin Methemoglobin O2 Delivery Device Oxygen Flow Rate Vent Mode Vent Rate Mechanical Rate Pressure Support Vent Sodium Potassium Chloride Carbon Dioxide Anion Gap BUN Creatinine Creat Clearance w eGFR POC Glucometer 69 Random Glucose Hemoglobin A1c % Lactic Acid Calcium Phosphorus Magnesium Total Bilirubin AST ALT Alkaline Phosphatase Troponin I C-Reactive Protein 8.9 H Total Protein Albumin Vitamin B12 4519 H TSH 1.65 Urine Color Urine Appearance Urine pH Ur Specific Wedron Urine Protein Urine Glucose (UA) Urine Ketones Urine Blood Urine Nitrite Urine Bilirubin Urine Urobilinogen Ur Leukocyte Esterase Urine WBC (Auto) Urine RBC (Auto) Ur Epithelial Cells Urine Bacteria Stool Occult Blood 04/14/18 04/14/18 04/14/18 08:30 08:30 08:30 WBC 9.8 RBC 4.92 Hgb 10.6 L Hct 33.8 MCV 68.6 L MCH 21.5 L MCHC 31.3 L RDW 17.9 H Plt Count 144 MPV 8.7 Absolute Neuts (auto) Neutrophils % Neutrophils % (Manual) Band Neutrophils % Lymphocytes % Lymphocytes % (Manual) Monocytes % Monocytes % (Manual) Eosinophils % Eosinophils % (Manual) Basophils % Basophils % (Manual) Myelocytes % (Man) Promyelocytes % (Man) Blast Cells % (Manual) Nucleated RBC % Metamyelocytes Hypochromia Platelet Estimate Platelet Comment No clumping noted Polychromasia Poikilocytosis Anisocytosis Microcytosis Macrocytosis Target Cells Lizzy Cells Acanthocytes (Spur) ESR PT with INR INR PTT (Actin FS) Anticoagulation Therapy Puncture Site ABG pH ABG pCO2 at Pt Temp ABG pO2 at Pt Temp ABG HCO3 ABG O2 Sat (Measured) ABG O2 Content ABG Base Excess Gaetano Test VBG pH POC VBG pCO2 POC VBG pO2 Mixed VBG HCO3 Carboxyhemoglobin Methemoglobin O2 Delivery Device Oxygen Flow Rate Vent Mode Vent Rate Mechanical Rate Pressure Support Vent Sodium 146 H Potassium 4.7 Chloride 116 H Carbon Dioxide 24 Anion Gap 6 L BUN 23 H Creatinine 1.0 Creat Clearance w eGFR 53.35 POC Glucometer Random Glucose 59 L Hemoglobin A1c % Lactic Acid 0.8 Calcium 8.4 L Phosphorus Magnesium Total Bilirubin 0.2 AST 24 ALT 14 Alkaline Phosphatase 74 Troponin I C-Reactive Protein Total Protein 5.5 L Albumin 2.4 L Vitamin B12 TSH Urine Color Urine Appearance Urine pH Ur Specific Wedron Urine Protein Urine Glucose (UA) Urine Ketones Urine Blood Urine Nitrite Urine Bilirubin Urine Urobilinogen Ur Leukocyte Esterase Urine WBC (Auto) Urine RBC (Auto) Ur Epithelial Cells Urine Bacteria Stool Occult Blood 04/14/18 12:52 WBC RBC Hgb Hct MCV MCH MCHC RDW Plt Count MPV Absolute Neuts (auto) Neutrophils % Neutrophils % (Manual) Band Neutrophils % Lymphocytes % Lymphocytes % (Manual) Monocytes % Monocytes % (Manual) Eosinophils % Eosinophils % (Manual) Basophils % Basophils % (Manual) Myelocytes % (Man) Promyelocytes % (Man) Blast Cells % (Manual) Nucleated RBC % Metamyelocytes Hypochromia Platelet Estimate Platelet Comment Polychromasia Poikilocytosis Anisocytosis Microcytosis Macrocytosis Target Cells Lizzy Cells Acanthocytes (Spur) ESR PT with INR INR PTT (Actin FS) Anticoagulation Therapy Puncture Site ABG pH ABG pCO2 at Pt Temp ABG pO2 at Pt Temp ABG HCO3 ABG O2 Sat (Measured) ABG O2 Content ABG Base Excess Gaetano Test VBG pH POC VBG pCO2 POC VBG pO2 Mixed VBG HCO3 Carboxyhemoglobin Methemoglobin O2 Delivery Device Oxygen Flow Rate Vent Mode Vent Rate Mechanical Rate Pressure Support Vent Sodium Potassium Chloride Carbon Dioxide Anion Gap BUN Creatinine Creat Clearance w eGFR POC Glucometer 70 Random Glucose Hemoglobin A1c % Lactic Acid Calcium Phosphorus Magnesium Total Bilirubin AST ALT Alkaline Phosphatase Troponin I C-Reactive Protein Total Protein Albumin Vitamin B12 TSH Urine Color Urine Appearance Urine pH Ur Specific [place] Urine Protein Urine Glucose (UA) Urine Ketones Urine Blood Urine Nitrite Urine Bilirubin Urine Urobilinogen Ur Leukocyte Esterase Urine WBC (Auto) Urine RBC (Auto) Ur Epithelial Cells Urine Bacteria Stool Occult Blood Active Medications Generic Name Dose Route Start Last Admin Trade Name Simone PRN Reason Stop Dose Admin Carbidopa/Levodopa 1 combo 04/14/18 10:00 04/14/18 09:24 Sinemet *Cr* 50/200 - PO Not Given DAILY [facility] Heparin Sodium (Porcine) 5,000 unit 04/14/18 14:00 Heparin - SQ TID [facility] Lactated Ringer's 1,000 ml in 1,000 mls @ 100 mls/hr 04/14/18 09:30 04/14/18 09:23 Lactated Ringers Solution IV 100 mls/hr ASDIR [facility] Administration Piperacillin Sod/Tazobactam 50 mls @ 100 mls/hr 04/14/18 10:00 04/14/18 09:59 Sod 3.375 gm/ Dextrose IVPB Not Given Q8H-IV [facility] Protocol Lactated Ringer's 1,000 ml in 1,000 mls @ 500 mls/hr 04/14/18 13:15 Lactated Ringers Solution IV ASDIR [facility] Dopamine HCl/Dextrose 400,000 mcg in 250 mls @ 11.354 mls/hr 04/14/18 13:30 Dopamine 400 Mg/D5w - IVPB TITR [facility] Protocol 5 MCG/KG/MIN Non-Formulary Medication 1 each 04/14/18 10:00 04/14/18 09:24 Ca/D3/Mag Ox/Zinc/[employer]/Ketan/Bor [Calcium 600-D3 Plus Caplet] PO Not Given DAILY [facility] Non-Formulary Medication 1 each 04/14/18 10:00 Rotigotine [Neupro] TD DAILY [facility] Olanzapine 5 mg 04/14/18 22:00 Zyprexa - PO [facility] ASSESSMENT/PLAN: 78 y/o female with PMH of parkinsons, dementia, HTN presents with weakness, lethargy, AMS # Acute metabolic encephalopathy likely 2/2 UTI vs ? PNA v. hypoglycemia -patient was very hypotensive unreponsive to 3L of fluids and patient transferred to ICU -dopamine drip -blood cx prelim growing gram pos cocci -on vanc/zosyn -monitor MAP, hemodynamics, urine cx #Diarrhea -c diff pending; lactoferrin pending -+FOBT -monitor H/H -monitor stools #Hypothermia -peewee hugger - monitor temps #Parkinsons Dementia -c/w patients medications F/E/N LR monitor electrolytes NPO until speech/swallow eval Problem List - Problems (1) Sepsis Code(s): A41.9 - SEPSIS, UNSPECIFIED ORGANISM (2) Urinary tract infection Code(s): N39.0 - URINARY TRACT INFECTION, SITE NOT SPECIFIED (3) Altered mental status Code(s): R41.82 - ALTERED MENTAL STATUS, UNSPECIFIED Qualifiers: Altered mental status type: disorientation Qualified Code(s): R41.0 - Disorientation, unspecified Visit type - Emergency Visit Emergency Visit: Yes ED Registration Date: 04/13/18 Care time: The patient presented to the Emergency Department on the above date and was hospitalized for further evaluation of their emergent condition. - New Patient This patient is new to me today: Yes Date on this admission: 04/14/18 - Critical Care Critical Care patient: No
--- NOTE | 2018-04-14 17:01 | PN ---
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, ACID ETCH OPERATOR - Note 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: Consultation received: ACID ETCH OPERATOR attempted to evaluate swallow status at bedside. Pt presents as obtunded with minimal response. Eyes closed. Audible breath sounds with congestions. Pt is not safe to dysphagia examination at this time. ACID ETCH OPERATOR will try again tomorrow to evaluate.
[2018-04-14] MEDS: HEPARIN NA (PORCINE) 5,000 UNITS/ML 1ML VIAL SQ SCH ×2 (17:39→21:28)
--- NOTE | 2018-04-14 18:31 | EKG ---
Test Reason : Blood Pressure : / mmHG Vent. Rate : 059 BPM Atrial Rate : 059 BPM P-R Int : 202 ms QRS Dur : 150 ms QT Int : 548 ms P-R-T Axes : 055 -39 039 degrees QTc Int : 542 ms SINUS BRADYCARDIA LEFT AXIS DEVIATION RIGHT BUNDLE BRANCH BLOCK VOLTAGE CRITERIA FOR LEFT VENTRICULAR HYPERTROPHY ABNORMAL ECG WHEN COMPARED WITH ECG OF 18-OCT-2017 13:19, VENT. RATE HAS DECREASED BY 32 BPM Confirmed by PRABHJOT PEREZ MD ([id number]) on 04/14/2018 6:30:38 PM Referred By: Confirmed By:PRABHJOT PEREZ MD
--- NOTE | 2018-04-14 21:32 | CON.NEURO ---
Consult Consult Specialty:: NEUROLOGY-[facility] Reason for Consultation:: PD - History of Present Illness History of Present Illness: The patient is a 78 year old female with a significant PMH of HTN, DM, bilateral knee replacement, Parkinsons disease, and mild dementia who presents to the emergency department with generalized weakness and nonbloody diarrhea for the past week. Patients daughter is at bedside and reports the patient talks, feeds herself, and walks with a walker at baseline. As per the daughter, the patient has been having a lack of appetite, lying in bed most of the day, and not talking with her granddaughters as she usually does. She denies fevers but states the patient has been cold. Pt's daughter also reports a sacral ulcer that has been hard to clean 2/2 diarrhea. Per EMS, pt was hypotensive to 70/40 in the field but responded to 1L fluids and BP went up to 130s systolic. Per her daughter, pt is full code. History is limited due to pt's mental status at this time. Now on pressors, obtunded, unabl;e to relate hx. Has not been taking her levodopa x 2days? - Past Medical History PACKER INSULATION: Yes: Dementia, Parkinson's. No: Seizure, Syncope Cardio/Vascular: Yes: HTN, Hyperlipdemia Musculoskeletal: Yes: Other (osteoporosis) Endocrine: Yes: Diabetes Mellitus - Past Surgical History Past Surgical History: Yes: Hysterectomy, Joint Replacement (Bilateral knee surgery) - Alcohol/Substance Use Hx Alcohol Use: No - Smoking History Smoking history: Never smoked Have you smoked in the past 12 months: No Home Medications - Allergies Allergies/Adverse Reactions: Allergies Allergy/AdvReac Type Severity Reaction Status Date / Time No Known Allergies Allergy Verified 04/13/18 21:45 - Home Medications Home Medications: Ambulatory Orders Acetaminophen 500 mg PO DAILY 04/13/18 Aspirin 81 mg PO DAILY 04/13/18 Ca/D3/Mag Ox/Zinc/Instrument Tester/Ketan/Bor [Calcium 600+D3 Plus Caplet] 1 each PO DAILY Carbidopa/Levodopa [Carbidopa-Levo ER 50-200 Tab] 1 each PO TID 04/13/18 Olanzapine 5 mg PO HS 04/13/18 Rotigotine [Neupro] 1 each TD DAILY 04/13/18 Physical Exam-Neuro Vital Signs: Vital Signs Temperature 97.7 F 04/14/18 18:00 Pulse Rate 95 H 04/14/18 18:00 Respiratory Rate 20 04/14/18 17:00 Blood Pressure 95/55 L 04/14/18 18:00 O2 Sat by Pulse Oximetry (%) 98 04/14/18 13:30 Labs: CBC, BMP 04/14/18 08:30 04/14/18 08:30 INR, PTT INR 1.13 (0.83-1.09) H 04/13/18 16:27 - Neuro Exam Level Of Consciousness: Yes: Obtunded (Win[place] to pain only) Mini Mental Exam: unable to test, obtunded Gag: Present DTR's: 0 Left Brachioradialis, 0 Right Brachioradialis, 0 Left Achilles, 0 Right Achilles, 1+ Left Bicep, 1+ Right Bicep, 1+ Left Tricep, 1+ Right Tricep Babinski: Absent Motor Strength: 1/5: Left Arm, Right Arm, Left Leg, Right Leg Gait: Other (Not testable) Assessment/Plan Pt. with hx. of PD, now being rx. for sepsis. Suggest: Sinemet 50/200, 1 TID thru ngt.(she may develop withdrawl dyskinesias with once/ day dosing D/C Olanzapine. Thank you, Fahad Castellanos MD
[2018-04-14] MEDS ORDERED: OLANZapine 5 MG TABLET PO SCH (22:00)
[2018-04-15] MEDS ORDERED: DEXTROSE 5%-WATER - 50 ML IVPB ONE ×3 (01:03→16:35)
[2018-04-15] MEDS ORDERED: PIPERACILLIN/TAZOBACTAM 3.375 GM VIAL IVPB ONE ×3 (01:03→16:35)
[2018-04-15] MEDS: PIPERACILLIN/TAZOB 3.375 GM 3.375 GM in DEXTROSE 5%-WATER - 50 ML IVPB SCH ×3 (01:15→17:06)
[2018-04-15] MEDS: HEPARIN NA (PORCINE) 5,000 UNITS/ML 1ML VIAL SQ SCH (05:54)
[2018-04-15] MEDS: CARBIDOPA/LEVODOPA 25/100 TABLET (FP) NGT SCH ×3 (05:54→23:10)
[2018-04-15 06:30] LABS: BASO % 0.3 % (0-2.0); EOS % 0.1 % (0-4.5); HEMATOCRIT 34.3 % (32.4-45.2); HEMOGLOBIN 10.5 GM/dL (10.7-15.3); LYMPH % 23.1 % (8-40); MCH 21.3 pg (25.7-33.7); MCHC 30.7 g/dl (32.0-36.0); MEAN CELL VOLUME 69.3 fl (80-96); MEAN PLT VOLUME 9.6 fl (7.5-11.1); MONO % 6.7 % (3.8-10.2); NEUT % 69.8 % (42.8-82.8); PLATELET COUNT 142 K/MM3 (134-434); RBC 4.95 M/mm3 (3.60-5.2); RDW 17.6 % (11.6-15.6); WHITE BLOOD COUNT 8.6 K/mm3 (4.0-10.0)
--- NOTE | 2018-04-15 06:59 | PN ---
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 (short form) - Note 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: Chief Complaint: Events noted, notes reviewed, awake but responsive to verbal commands, moderate respiratory distress, sinus rhythm is noted History of Present Illness: Seen and examined in the ICU. Full consult dictated Echocardiography dated 07/02/2017 revealed normal LV size and function with diastolic LV dysfunction - Current Medication List Current Medications Calcium Carbonate/Cholecalciferol (Os-Carmelo 500+D -) 1 tab NGT DAILY [facility] Carbidopa/Levodopa (Sinemet 25/100 -) 2 each NGT TID [facility] Last Admin: 04/15/18 05:54 Dose: 2 each Heparin Sodium (Porcine) (Heparin -) 5,000 unit SQ TID [facility] Last Admin: 04/15/18 05:54 Dose: 5,000 unit Piperacillin Sod/Tazobactam (Sod 3.375 gm/ Dextrose) 50 mls @ 100 mls/hr IVPB Q8H-IV [facility]; Protocol Last Admin: 04/15/18 01:15 Dose: 100 mls/hr Dopamine HCl/Dextrose (Dopamine 400 Mg/D5w -) 400,000 mcg in 250 mls @ 11.354 mls/hr IVPB TITR [facility]; Protocol Last Admin: 04/14/18 13:30 Dose: 5 mcg/kg/min, 11.354 mls/hr Non-Formulary Medication (Rotigotine [Neupro]) 1 each TD DAILY [facility] Review of Systems Unable to obtain - Objective Vital Signs: Last Vital Signs Temp Pulse Resp BP Pulse Ox 98.9 F 95 H 18 92/63 99 04/15/18 06:00 04/15/18 08:00 04/15/18 08:00 04/15/18 08:00 04/14/18 21:00 Intake & Output 04/12/18 04/13/18 04/14/18 04/15/18 23:59 23:59 23:59 23:59 Intake Total 1300 2313 Output Total 120 1100 400 Balance 1180 1213 -400 Weight 150 lb 133 lb 8 oz Neck: Supple Negative JVD No Bruit Cardiovascular: S1 S2 Regular Rate and Rhythm Chest: Scattered Course Rhonchi Bilaterally Gastrointestinal: Soft Benign Normal Bowel Sounds Ext: Trace Edema Labs: ABG Results ABG pH 7.33 (7.35-7.45) L 04/13/18 17:31 ABG pCO2 at Pt Temp 41.9 mmHg (35-45) 04/13/18 17:31 ABG pO2 at Pt Temp 178.0 mmHg (68-100) H* D 04/13/18 17:31 ABG HCO3 21.3 meq/L (22-26) L 04/13/18 17:31 ABG O2 Sat (Measured) 99.0 % (90-98.9) H 04/13/18 17:31 ABG O2 Content 13.6 % vol (15-22) L 04/13/18 17:31 ABG Base Excess -3.8 meq/l (-2-2) L 04/13/18 17:31 CBC, BMP 04/15/18 05:30 04/15/18 05:30 Hepatic Panel Total Bilirubin 0.3 mg/dL (0.2-1) 04/15/18 05:30 AST 25 U/L (15-37) 04/15/18 05:30 ALT 20 U/L (13-61) 04/15/18 05:30 Alkaline Phosphatase 81 U/L (45-117) 04/15/18 05:30 Albumin 2.4 g/dl (3.4-5.0) L 04/15/18 05:30 INR, PTT INR 1.13 (0.83-1.09) H 04/13/18 16:27 Assessment/Plan ASSESSMENT: 1. Acute hypoxic respiratory failure, with underlying chronic lung disease, probable pneumonia with sepsis syndrome 2. CAD angina pectoris 3. Diastolic LV dysfunction with clinical class 0-I NYHA classification LV failure, compensated/euvolemic 4. Hypertension, currently hypotensive related to the above noted sepsis syndrome om pressors 5. Parkinson's disease/dementia, with altered mental status related to probable sepsis syndrome 6. Bradycardia and hypothermia since resolved, related to sepsis syndrome 7. CKD 8. UTI/sepsis syndrome 9. Sacral decubitus 10. Hypernatremia 11. Anemia PLAN: 1. Continue Dopamine and attempt to wean off as tolerated 2. IVF D5-1/3 NS to be initiated 3. Antibiotics as per the primary team Palmira Pratt MD
[2018-04-15 07:16] LABS: ALBUMIN 2.4 g/dl (3.4-5.0); ALK PHOS 81 U/L (45-117); ANION GAP 10 MMOL/L (8-16); BILIRUBIN,TOTAL 0.3 mg/dL (0.2-1); BLOOD UREA NITROGEN 17 mg/dL (7-18); CALCIUM 8.4 mg/dL (8.5-10.1); CHLORIDE 111 mmol/L (98-107); CO2 25 mmol/L (21-32); CREATININE 1.3 mg/dL (0.55-1.3); GLUCOSE,RANDOM 80 mg/dL (74-106); MAGNESIUM 1.8 mg/dL (1.8-2.4); PHOSPHOROUS 3.5 mg/dL (2.5-4.9); POTASSIUM 4.1 mmol/L (3.5-5.1); SGOT/AST 25 U/L (15-37); SGPT/ALT 20 U/L (13-61); SODIUM 146 mmol/L (136-145); TOT PROT 5.8 g/dl (6.4-8.2)
[2018-04-15] MEDS ORDERED: MAGNESIUM SULF 50% (8.12 MEQ/2 ML-1 GM VIAL) IVPB ONE (08:30)
--- NOTE | 2018-04-15 09:26 | CONS ---
REQUESTING PHYSICIAN: Emily Mckeon MD DATE OF CONSULTATION: 04/15/2018 CHIEF COMPLAINT: Cardiovascular evaluation, sepsis syndrome. HISTORY OF PRESENT ILLNESS: History was predominantly obtained from the chart. Patient is non-communicative. She is an 78-year-old female of -[place] descent with known history of coronary artery disease, angina pectoris, diastolic left ventricular dysfunction, with chronic class 0-1 [place] Heart Association Classification left ventricular failure, hypertensive cardiovascular disease, Parkinson's disease, dementia, who resides at home, who presented to [facility] with altered mental status and was noted to have evidence of pneumonia, probable urinary tract infection with sepsis syndrome. Patient currently appears to be in moderate respiratory distress, hypotensive, on dopamine therapy. Not responsive to verbal commands. Sinus rhythm is noted. No additional history is obtainable as noted above. PAST MEDICAL HISTORY: Coronary artery disease, angina pectoris, diastolic left ventricular dysfunction, with chronic class 0-1 [place] Heart [employer] Classification left ventricular failure, hypertensive cardiovascular disease, Parkinson's disease, dementia, sacral decubitus. SOCIAL HISTORY: No history of tobacco abuse, resides at home. FAMILY HISTORY: None available. MEDICATIONS: Medical therapy currently includes Sinemet, subcutaneous heparin, piperacillin, tazobactam, IV dopamine, and rotigotine, REVIEW OF SYSTEMS: Not obtainable. PHYSICAL EXAMINATION: Vital signs: Blood pressure is 92/63 mmHg, pulse rate is 95 beats per minute regular. Head and neck: Pupils are equally reactive to light and accommodation. External ocular muscle cannot be evaluated. Anicteric sclerae. Negative JVD. No bruit appreciated. Chest: Bilateral coarse crepitus. Cardiovascular: S1, S2 regular. No murmurs appreciated. Abdomen: Soft, benign. Normoactive bowel sounds. Extremities: Trace edema. Decreased distal pulses. No calf tenderness. STUDIES: Electrocardiogram reveals sinus rhythm with left axis deviation, left anterior fascicular block, complete right bundle branch block, and nonspecific T-wave abnormality with a prolonged QTC interval. CBC revealed white cell count of 8.6, hemoglobin 10.5, platelet count 142. Blood gas revealed pH of 7.33, pCO2 of 41.9, pO2 of 178, saturation 99%. Basic metabolic profile revealed sodium of 146, potassium 4.1, BUN 17, creatinine 1.3, glucose 80. ASSESSMENT: 1. Acute hypoxic respiratory failure with underling chronic lung disease, probable pneumonia with sepsis syndrome. 2. Coronary artery disease, angina pectoris. 3. Diastolic left ventricular dysfunction with clinical class 0-1 [place] Heart [employer] Classification left ventricular failure, currently compensated, euvolemic, hypovolemic. 4. History of hypertension, currently hypotensive, related to the above noted sepsis syndrome, on pressors. 5. Parkinson's disease. 6. History of dementia with altered mental status related to probably sepsis syndrome. 7. History of bradycardia and hypothermia, since resolved, related to sepsis syndrome. 8. Chronic kidney disease. 9. Urinary tract infection, sepsis syndrome. 10. Sacral decubitus. 11. Hypernatremia. 12. Anemia. RECOMMENDATIONS: 1. Continuation of dopamine and attempt to wean off as tolerated. therapy. 2. IV fluids, D5 1/3 normal saline to be initiated. 3. Antibiotics as per the primary team. Thank you for the kind referral. DELMY VO M.D. [id number]
[2018-04-15] MEDS: CALCIUM 500MG/VIT-D 200 UNITS COMBO TABLET (FP) NGT SCH (10:25)
[2018-04-15] MEDS ORDERED: PANTOPRAZOLE SODIUM 80 MG in SODIUM CHLORIDE 100 ML IVPB SCH (11:45)
--- NOTE | 2018-04-15 11:54 | PN ---
Teaching Attending Note Name of Resident: Yajaira Dillard ATTENDING PHYSICIAN STATEMENT I saw and evaluated the patient. I reviewed the resident's note and discussed the case with the resident. I agree with the resident's findings and plan as documented. SUBJECTIVE: Patient seen and examined in the ICU. Remains on 2.5 mcq of Dopamine for hemodynamic support. Noted new bright red blood per rectum. Confused. Intake & Output 04/12/18 04/13/18 04/14/18 04/15/18 23:59 23:59 23:59 23:59 Intake Total 1300 2313 Output Total 120 1100 400 Balance 1180 1213 -400 Weight 150 lb 133 lb 8 oz 133 lb Last Vital Signs Temp Pulse Resp BP Pulse Ox 98.5 F 87 14 99/65 99 04/15/18 10:00 04/15/18 10:25 04/15/18 10:00 04/15/18 10:25 04/14/18 21:00 Active Medications Calcium Carbonate/Cholecalciferol (Os-Carmelo 500+D -) 1 tab NGT DAILY VASYL Last Admin: 04/15/18 10:25 Dose: 1 tab Carbidopa/Levodopa (Sinemet 25/100 -) 2 each NGT TID VASYL Last Admin: 04/15/18 05:54 Dose: 2 each Heparin Sodium (Porcine) (Heparin -) 5,000 unit SQ TID VASYL Last Admin: 04/15/18 05:54 Dose: 5,000 unit Piperacillin Sod/Tazobactam (Sod 3.375 gm/ Dextrose) 50 mls @ 100 mls/hr IVPB Q8H-IV VASYL; Protocol Last Admin: 04/15/18 10:24 Dose: 100 mls/hr Dopamine HCl/Dextrose (Dopamine 400 Mg/D5w -) 400,000 mcg in 250 mls @ 11.354 mls/hr IVPB TITR VASYL; Protocol Last Titration: 04/15/18 10:25 Dose: 2.5 mcg/kg/min, 5.677 mls/hr Pantoprazole Sodium 80 mg/ (Sodium Chloride) 100 mls @ 10 mls/hr IVPB Q10H VASYL Non-Formulary Medication (Rotigotine [Neupro]) 1 each TD DAILY VASYL GENERAL: Lethargic, confused HEAD: Normal with no signs of trauma. EYES: sclera anicteric, conjunctiva clear. EARS, NOSE, THROAT: oropharynx clear without exudates. dry mucous membranes. NECK: Normal range of motion, supple without lymphadenopathy, JVD, or masses. LUNGS: few scattered rhonchi, no wheeze. No accessory muscle use. HEART: Regular rate and rhythm, normal S1 and S2 without murmur, rub or gallop. ABDOMEN: Soft, nontender, not distended, normoactive bowel sounds, no guarding, no rebound, no masses. No hepatomegaly or splenomegaly. MUSCULOSKELETAL: No bony deformities or tenderness. No CVA tenderness. UPPER EXTREMITIES: No peripheral edema. LOWER EXTREMITIES: No calf tenderness. No peripheral edema. NEUROLOGICAL: Lethargic, non-focal SKIN: Warm, dry, normal turgor, no rashes or lesions noted. Laboratory Results - last 24 hr 04/14/18 04/14/18 04/15/18 12:52 17:34 05:30 WBC 8.6 RBC 4.95 Hgb 10.5 L Hct 34.3 MCV 69.3 L MCH 21.3 L MCHC 30.7 L RDW 17.6 H Plt Count 142 MPV 9.6 D Absolute Neuts (auto) 6.0 Neutrophils % 69.8 Lymphocytes % 23.1 D Monocytes % 6.7 Eosinophils % 0.1 Basophils % 0.3 Nucleated RBC % 3 H Sodium Potassium Chloride Carbon Dioxide Anion Gap BUN Creatinine Creat Clearance w eGFR POC Glucometer 70 87.86187 Random Glucose Calcium Phosphorus Magnesium Total Bilirubin AST ALT Alkaline Phosphatase Total Protein Albumin 04/15/18 05:30 WBC RBC Hgb Hct MCV MCH MCHC RDW Plt Count MPV Absolute Neuts (auto) Neutrophils % Lymphocytes % Monocytes % Eosinophils % Basophils % Nucleated RBC % Sodium 146 H Potassium 4.1 Chloride 111 H Carbon Dioxide 25 Anion Gap 10 BUN 17 Creatinine 1.3 Creat Clearance w eGFR 39.41 POC Glucometer Random Glucose 80 Calcium 8.4 L Phosphorus 3.5 Magnesium 1.8 Total Bilirubin 0.3 AST 25 ALT 20 Alkaline Phosphatase 81 Total Protein 5.8 L Albumin 2.4 L ASSESSMENT/PLAN: Sepsis due to UTI / PNA / Colitis Metabolic Encephalopathy Bradycardia Diarrhea GI Bleed Anemia HTN Sacral decubitus ulcer Parkinson's Broad ABX per ID Follow CVP Wean Dopamine as long as MAP > 65 IVF O2 to maintain saturation Normal transfusion thresholds Follow CBC Local wound care VTE prophylaxis ICU monitoring Dr Collins Critical care time spent in reviewing chart, evaluating patient and formulating plan - 36 minutes.
[2018-04-15] MEDS ORDERED: PT OWN MED DRAWER 7, Y5N ONE ×2 (12:30→21:08)
[2018-04-15 12:58] LABS: ANISOCYTOSIS 2+; MACROCYTOSIS 0; OVALOCYTE 1+; PLATELET ESTIMATE DECREASED; TARGET CELLS 2+
--- NOTE | 2018-04-15 13:43 | PN ---
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, Physician History of Present Illness: patient still on low dose of pressors--dopamine some blood noted per rectum - Current Medication List Current Medications: Active Medications Calcium Carbonate/Cholecalciferol (Os-Carmelo 500+D -) 1 tab NGT DAILY VASYL Last Admin: 04/15/18 10:25 Dose: 1 tab Carbidopa/Levodopa (Sinemet 25/100 -) 2 each NGT TID VASYL Last Admin: 04/15/18 05:54 Dose: 2 each Heparin Sodium (Porcine) (Heparin -) 5,000 unit SQ TID VASYL Last Admin: 04/15/18 05:54 Dose: 5,000 unit Piperacillin Sod/Tazobactam (Sod 3.375 gm/ Dextrose) 50 mls @ 100 mls/hr IVPB Q8H-IV VASYL; Protocol Last Admin: 04/15/18 10:24 Dose: 100 mls/hr Dopamine HCl/Dextrose (Dopamine 400 Mg/D5w -) 400,000 mcg in 250 mls @ 11.354 mls/hr IVPB TITR VASYL; Protocol Last Titration: 04/15/18 12:27 Dose: 5 mcg/kg/min, 11.354 mls/hr Pantoprazole Sodium 80 mg/ (Sodium Chloride) 100 mls @ 10 mls/hr IVPB Q10H VASYL Non-Formulary Medication (Rotigotine [Neupro]) 1 each TD DAILY VASYL - Objective Vital Signs: Vital Signs Temperature 98.5 F 04/15/18 10:00 Pulse Rate 83 04/15/18 12:27 Respiratory Rate 11 04/15/18 12:00 Blood Pressure 85/56 L 04/15/18 12:27 O2 Sat by Pulse Oximetry (%) 99 04/15/18 09:00 Constitutional: Yes: Other Eyes: Yes: Conjunctiva Clear Neck: Yes: Supple, Trachea Midline Cardiovascular: Yes: Regular Rate and Rhythm Respiratory: Yes: Regular, CTA Bilaterally, On Nasal O2 Gastrointestinal: Yes: Normal Bowel Sounds, Soft Genitourinary: Yes: WNL. No: CVA Tenderness - Left, CVA Tenderness - Right Musculoskeletal: Yes: WNL Extremities: Yes: WNL Neurological: Yes: Confusion, Lethargy Labs: CBC, BMP 04/15/18 05:30 04/15/18 05:30 INR, PTT INR 1.13 (0.83-1.09) H 04/13/18 16:27 Assessment/Plan Sepsis due to UTI / PNA / Colitis Metabolic Encephalopathy Bradycardia Diarrhea GI Bleed Anemia HTN Sacral decubitus ulcer Parkinson's sepsis lethargy weakness hypothermia uti plan continue as per icu neurology continue abx monitor bleeding nutrition rest as per the team cc 37 min
[2018-04-15] MEDS ORDERED: SODIUM CHLORIDE 0.45% 1,000 ML IV SCH (14:00)
[2018-04-15] MEDS: DOPAMINE 400 MG/D5W - 400,000 MCG/250 ML INFUS.BAG IVPB SCH (15:17)
[2018-04-15 16:07] LABS: BASO % 0.6 % (0-2.0); EOS % 0.2 % (0-4.5); HEMATOCRIT 32.3 % (32.4-45.2); HEMOGLOBIN 10.7 GM/dL (10.7-15.3); LYMPH % 20.2 % (8-40); MCH 22.6 pg (25.7-33.7); MCHC 33.1 g/dl (32.0-36.0); MEAN CELL VOLUME 68.3 fl (80-96); MEAN PLT VOLUME 9.5 fl (7.5-11.1); MONO % 7.3 % (3.8-10.2); NEUT % 71.7 % (42.8-82.8); PLATELET COUNT 142 K/MM3 (134-434); RBC 4.73 M/mm3 (3.60-5.2); RDW 17.6 % (11.6-15.6); WHITE BLOOD COUNT 8.1 K/mm3 (4.0-10.0)
[2018-04-15 16:19] LABS: INR 1.18 (0.83-1.09)
--- NOTE | 2018-04-15 16:21 | PN ---
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, Physician History of Present Illness: on pressors opens eyes when nurses clean her - Current Medication List Current Medications: Active Medications Calcium Carbonate/Cholecalciferol (Os-Carmelo 500+D -) 1 tab NGT DAILY VASYL Last Admin: 04/15/18 10:25 Dose: 1 tab Carbidopa/Levodopa (Sinemet 25/100 -) 2 each NGT TID VASYL Last Admin: 04/15/18 05:54 Dose: 2 each Piperacillin Sod/Tazobactam (Sod 3.375 gm/ Dextrose) 50 mls @ 100 mls/hr IVPB Q8H-IV VASYL; Protocol Last Admin: 04/15/18 10:24 Dose: 100 mls/hr Dopamine HCl/Dextrose (Dopamine 400 Mg/D5w -) 400,000 mcg in 250 mls @ 11.354 mls/hr IVPB TITR VASYL; Protocol Last Admin: 04/15/18 15:17 Dose: 5 mcg/kg/min, 11.354 mls/hr Pantoprazole Sodium 80 mg/ (Sodium Chloride) 100 mls @ 10 mls/hr IVPB Q10H VASYL Last Admin: 04/15/18 12:05 Dose: 10 mls/hr Sodium Chloride (1/2 Normal Saline) 1,000 mls @ 83 mls/hr IV ASDIR VASYL Stop: 04/16/18 02:03 Last Admin: 04/15/18 15:18 Dose: 83 mls/hr Non-Formulary Medication (Rotigotine [Neupro]) 1 each TD DAILY VASYL - Objective Vital Signs: Vital Signs Temperature 97.0 F L 04/15/18 14:00 Pulse Rate 80 04/15/18 15:17 Respiratory Rate 11 04/15/18 14:00 Blood Pressure 101/66 04/15/18 15:17 O2 Sat by Pulse Oximetry (%) 99 04/15/18 09:00 Constitutional: Yes: Calm HENT: Yes: Atraumatic Neck: Yes: Supple Cardiovascular: Yes: Regular Rate and Rhythm Respiratory: Yes: Rales, Rhonchi Gastrointestinal: Yes: Normal Bowel Sounds Extremities: Yes: WNL Edema: No Peripheral Pulses WNL: Yes Neurological: Yes: Lethargy Labs: CBC, BMP 04/15/18 15:40 04/15/18 05:30 INR, PTT INR 1.18 (0.83-1.09) H 04/15/18 15:40 Problem List - Problems (1) Parkinson disease Assessment/Plan: on meds neuro on board Code(s): G20 - PARKINSON'S DISEASE (2) Sepsis Assessment/Plan: on iv abx pressors iv fluids Code(s): A41.9 - SEPSIS, UNSPECIFIED ORGANISM (3) Urinary tract infection Assessment/Plan: iv abx cxs sent Code(s): N39.0 - URINARY TRACT INFECTION, SITE NOT SPECIFIED (4) Altered mental status Code(s): R41.82 - ALTERED MENTAL STATUS, UNSPECIFIED Qualifiers: Altered mental status type: disorientation Qualified Code(s): R41.0 - Disorientation, unspecified (5) Hypothermia Assessment/Plan: juan hobsonn Code(s): T68.XXXA - HYPOTHERMIA, INITIAL ENCOUNTER Qualifiers: Encounter type: subsequent encounter Qualified Code(s): T68.XXXD - Hypothermia, subsequent encounter
--- NOTE | 2018-04-15 16:54 | PN ---
Physical Exam: SUBJECTIVE: Patient seen and examined at bedside. Pt unarousable. Per overnight nurse, pt hypotensive 46-89/29-77 with MAP 46-89. No acute events overnight. REVIEW OF SYSTEMS Unable to obtain. OBJECTIVE: Vital Signs Period Temp Pulse Resp BP Sys/Campbell Pulse Ox Last 24 Hr 97 F-98.9 F 63-100 11- 69-118/29-77 99-99 GENERAL: Not arousable. HEENT: AT/NC. Dry mucus membranes. NECK: Supple LAD/JVD. LUNGS: CTA B/L. No wheezes noted. Symmetric chest rise. HEART: RRR. Normal S1, S2. No murmurs noted. ABDOMEN: Soft, NT/ND. +BS in all 4Qs. MUSCULOSKELETAL: Normal range of motion at all joints. No bony deformities or tenderness. No CVA tenderness. EXTREMITIES: No peripheral edema noted. 2+ pedal pulses. NEUROLOGICAL: Not arousable. Grimaces to pain. SKIN: Warm, dry, normal turgor, no rashes or lesions noted. Laboratory Results - last 24 hr 04/14/18 04/15/18 04/15/18 17:34 05:30 05:30 WBC 8.6 RBC 4.95 Hgb 10.5 L Hct 34.3 MCV 69.3 L MCH 21.3 L MCHC 30.7 L RDW 17.6 H Plt Count 142 MPV 9.6 D Absolute Neuts (auto) 6.0 Neutrophils % 69.8 Neutrophils % (Manual) 60.6 Band Neutrophils % 1.0 Lymphocytes % 23.1 D Lymphocytes % (Manual) 29.3 D Monocytes % 6.7 Monocytes % (Manual) 8 D Eosinophils % 0.1 Eosinophils % (Manual) 0.0 Basophils % 0.3 Basophils % (Manual) 0.0 Myelocytes % (Man) 0 Promyelocytes % (Man) 0 Blast Cells % (Manual) 0 Nucleated RBC % 3 H Metamyelocytes 0 D Hypochromia 1+ Platelet Estimate Decreased Polychromasia 0 Poikilocytosis 0 Anisocytosis 2+ Microcytosis 2+ Macrocytosis 0 Target Cells 2+ Ovalocytes 1+ Fragmented RBCs 1+ Sodium 146 H Potassium 4.1 Chloride 111 H Carbon Dioxide 25 Anion Gap 10 BUN 17 Creatinine 1.3 Creat Clearance w eGFR 39.41 POC Glucometer 87.74140 Random Glucose 80 Calcium 8.4 L Phosphorus 3.5 Magnesium 1.8 Total Bilirubin 0.3 AST 25 ALT 20 Alkaline Phosphatase 81 Total Protein 5.8 L Albumin 2.4 L 04/15/18 12:11 WBC RBC Hgb Hct MCV MCH MCHC RDW Plt Count MPV Absolute Neuts (auto) Neutrophils % Neutrophils % (Manual) Band Neutrophils % Lymphocytes % Lymphocytes % (Manual) Monocytes % Monocytes % (Manual) Eosinophils % Eosinophils % (Manual) Basophils % Basophils % (Manual) Myelocytes % (Man) Promyelocytes % (Man) Blast Cells % (Manual) Nucleated RBC % Metamyelocytes Hypochromia Platelet Estimate Polychromasia Poikilocytosis Anisocytosis Microcytosis Macrocytosis Target Cells Ovalocytes Fragmented RBCs Sodium Potassium Chloride Carbon Dioxide Anion Gap BUN Creatinine Creat Clearance w eGFR POC Glucometer 105.61534 Random Glucose Calcium Phosphorus Magnesium Total Bilirubin AST ALT Alkaline Phosphatase Total Protein Albumin Active Medications Generic Name Dose Route Start Last Admin Trade Name Freq PRN Reason Stop Dose Admin Calcium Carbonate/Cholecalciferol 1 tab 04/15/18 10:00 04/15/18 10:25 Os-Carmelo 500+D - NGT 1 tab DAILY VASYL Administration Carbidopa/Levodopa 2 each 04/15/18 06:00 04/15/18 05:54 Sinemet 25/100 - NGT 2 each TID VASYL Administration Piperacillin Sod/Tazobactam 50 mls @ 100 mls/hr 04/14/18 10:00 04/15/18 10:24 Sod 3.375 gm/ Dextrose IVPB 100 mls/hr Q8H-IV VASYL Administration Protocol Dopamine HCl/Dextrose 400,000 mcg in 250 mls @ 11.354 mls/hr 04/14/18 13:30 04/15/18 15:17 Dopamine 400 Mg/D5w - IVPB 5 mcg/kg/min TITR VASYL 11.354 mls/hr Administration Protocol 5 MCG/KG/MIN Pantoprazole Sodium 80 mg/ 100 mls @ 10 mls/hr 04/15/18 11:45 04/15/18 12:05 Sodium Chloride IVPB 10 mls/hr Q10H VASYL Administration 8 MG/HR Sodium Chloride 1,000 mls @ 83 mls/hr 04/15/18 14:00 04/15/18 15:18 1/2 Normal Saline IV 04/16/18 02:03 83 mls/hr ASDIR VASYL Administration Non-Formulary Medication 1 each 04/14/18 10:00 Rotigotine [Neupro] TD DAILY VASYL ASSESSMENT/PLAN: 78 y/o female with PMH of parkinsons, dementia, HTN presents with weakness, lethargy, AMS presented to the ICU with septic shock 2/2 Neurology #Acute Metabolic Encephalopathy -likely 2/2 infection, unclear etiology at this time -Neuro checks -maintain NPO until mental status improves -IV antibiotics #Parkinson's Dementia -hold home PO meds as pt not safe to michaela PO due to minimal arousability -cont meds via NGT per neuro recs Pulmonary -satting 98% on 3L NC -cont to monitor SpO2 Cardiovascular -Dopamine drip -BP stable, cont to monitor -Maintain MAP >65 GI #BRBPR -CBC, PT/INR, T&S ordered -Protonix d/c'd, start IV Pepcid ID #Septic shock 2/2 UTI/PNA/Diffuse colitis -UCx showed MDR E. coli w/ sensitivity to Zosyn -IV Zosyn (started 04/14/18) and Vanc -F/u BCx results -Hypothermic; pt with peewee hugger -ID recs appreciated FEN -500mL of 1/2 NS -recheck lytes in AM -Tube Feed Osmolite Lines -RIJ central line placed 04/14/18 Dispo: We will continue to follow the patient. Thank you for this consultative opportunity. Visit type - Emergency Visit Emergency Visit: Yes ED Registration Date: 04/13/18 Care time: The patient presented to the Emergency Department on the above date and was hospitalized for further evaluation of their emergent condition. - New Patient This patient is new to me today: No - Critical Care Critical Care patient: Yes Total Critical Care Time (in minutes): 30 Critical Care Statement: The care of this patient involved high complexity decision making to prevent further life threatening deterioration of the patient 's condition and/or to evaluate & treat vital organ system(s) failure or risk of failure.
[2018-04-15] MEDS ORDERED: HEMOQUE TEST 1 EACH EACH ONE (16:55)
--- NOTE | 2018-04-15 19:36 | PN ---
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 (short form) - Note 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: d/w patients daughter- she had placed Neupro patch only 3 days [employer]-will hold off on this as it takes long to kick in, will manage with Sinemet only.
[2018-04-15] MEDS ORDERED: INSULIN (NOVOLOG) ASPART 100 UNITS/ML 10ML VIAL ONE (21:18)
--- NOTE | 2018-04-15 21:28 | CON.GI ---
Consult Consult Specialty:: GI: for Dr. Walker Referred by:: Hospitalist Service Reason for Consultation:: Rectal bleeding - History of Present Illness Chief Complaint: Patient non-verbal History of Present Illness: 78F admitted for evaluation of mental status change. Per admit note has been having diarrhea from last saturday and bowel movement was blood tinged at home. Was started on Neupro patch. Recent ER visit for altered mental status 10/11. Admission 07/14: for syncope. intubated. Noticed blood tinge in loose BM today. Hgb stable and seemes to be at baseline. C. Diff neg. Was started on neupro patch recently. NGT placed and has green bilious fluid. Blood from oropharynx noted this evening. Unclear if prior endoscopic evaluations. CTA of chest failed to reveal P.E.. CT A/P revealed mild dilatation of the central intrahepatic ducts, slightly overdistended gallballder with question of layering sludge, renal cyst, questionable thickening of colon, questionable thickening of endometrial wall vs. fluid. This was read by Dr. Beauchamp. - Past Medical History CARE DIRECTOR: Yes: Dementia, Parkinson's. No: Seizure, Syncope Cardio/Vascular: Yes: HTN, Hyperlipdemia Musculoskeletal: Yes: Other (osteoporosis) Endocrine: Yes: Diabetes Mellitus - Past Surgical History Past Surgical History: Yes: Hysterectomy, Joint Replacement (Bilateral knee surgery) - Alcohol/Substance Use Hx Alcohol Use: No - Smoking History Smoking history: Never smoked Have you smoked in the past 12 months: No Home Medications - Allergies Allergies/Adverse Reactions: Allergies Allergy/AdvReac Type Severity Reaction Status Date / Time No Known Allergies Allergy Verified 04/13/18 21:45 - Home Medications Home Medications: Ambulatory Orders Acetaminophen 500 mg PO DAILY 04/13/18 Aspirin 81 mg PO DAILY 04/13/18 Ca/D3/Mag Ox/Zinc/[employer]/Ketan/Bor [Calcium 600+D3 Plus Caplet] 1 each PO DAILY Carbidopa/Levodopa [Carbidopa-Levo ER 50-200 Tab] 1 each PO TID 04/13/18 Olanzapine 5 mg PO HS 04/13/18 Rotigotine [Neupro] 1 each TD DAILY 04/13/18 Family Disease History - Family Disease History Family History: Unable to Obtain Review of Systems Unable to obtain ROS, reason: Patient intubated Physical Exam-GI Vital Signs: Vital Signs Temperature 96.3 F L 11/20/18 20:00 Pulse Rate 70 04/15/18 20:00 Respiratory Rate 11 04/15/18 20:29 Blood Pressure 108/67 04/15/18 20:00 O2 Sat by Pulse Oximetry (%) 100 04/15/18 20:29 Constitutional: Yes: Calm Eyes: No: Sclera Icterus Cardiovascular: Yes: Other (obscured by upper airway noise) Respiratory: Yes: Diminished (at bases bilaterally with poor insp effort) Gastrointestinal Inspection: No: Distention ...Auscultate: Yes: Normoactive Bowel Sounds ...Palpate: Yes: Soft. No: Guarding, Tenderness (no grimacing upon palpation) ...Rectal Exam: Yes: Other (No external lesions, no masses, brown liquid stool tinged with blood) Extremities: Yes: Other (Right knee surgical scar) Edema: No (No LE edema) Neurological: Yes: Other (lethargic) Labs: CBC, BMP 04/15/18 15:40 04/15/18 05:30 INR, PTT INR 1.18 (0.83-1.09) H 04/15/18 15:40 Hepatic Panel Total Bilirubin 0.3 mg/dL (0.2-1) 04/15/18 05:30 AST 25 U/L (15-37) 04/15/18 05:30 ALT 20 U/L (13-61) 04/15/18 05:30 Alkaline Phosphatase 81 U/L (45-117) 04/15/18 05:30 Albumin 2.4 g/dl (3.4-5.0) L 04/15/18 05:30 Imaging - Results Cat Scan: Report Reviewed, Image Reviewed Problem List - Problems (1) Rectal bleeding Assessment/Plan: I do not think this is a primary GI bleed event. ? if rectal bleeding precipitated by multiple loose BMs ? Diffuse colitis on CT scan however I wonder if this reflects her hypoalbuminemic state Check stool culture Monitor H/H Resume feeds. If copious bleeding, stop feeds oropharyngeal bleeding vs. epistaxis. being evaluated by ICU resident Bile in NGT and stable H/H. This is not a brisk upper GI bleed and there is no role for PPI drip at this time Ordered bedside US to evaluate prior biliary tract findings Code(s): K62.5 - HEMORRHAGE OF ANUS AND RECTUM
[2018-04-15] MEDS ORDERED: ALBUTEROL SO4 0.083% IH SOL 2.5 MG/3 ML VIAL.NEB. NEB ONE (23:42)
[2018-04-15] MEDS ORDERED: ACETYLCYSTEINE 20% 200MG/ML 4 ML VIAL *FOR ORAL / INH USE ONLY NEB ONE (23:45)
[2018-04-15] MEDS ORDERED: ACETYLCYSTEINE 20% 200MG/ML 4 ML VIAL *FOR ORAL / INH USE ONLY ONE (23:49)
[2018-04-16] MEDS ORDERED: PIPERACILLIN/TAZOBACTAM 3.375 GM VIAL IVPB ONE ×3 (02:02→16:05)
[2018-04-16] MEDS ORDERED: DEXTROSE 5%-WATER - 50 ML IVPB ONE ×3 (02:03→16:05)
[2018-04-16] MEDS: PIPERACILLIN/TAZOB 3.375 GM 3.375 GM in DEXTROSE 5%-WATER - 50 ML IVPB SCH ×3 (03:21→18:23)
[2018-04-16] MEDS: CARBIDOPA/LEVODOPA 25/100 TABLET (FP) NGT SCH ×3 (05:59→21:41)
[2018-04-16 06:19] LABS: HEMATOCRIT 33.3 % (32.4-45.2); HEMOGLOBIN 10.4 GM/dL (10.7-15.3); MCH 21.6 pg (25.7-33.7); MCHC 31.3 g/dl (32.0-36.0); MEAN CELL VOLUME 69.1 fl (80-96); MEAN PLT VOLUME 9.3 fl (7.5-11.1); PLATELET COUNT 126 K/MM3 (134-434); RBC 4.82 M/mm3 (3.60-5.2); RDW 17.6 % (11.6-15.6); WHITE BLOOD COUNT 7.9 K/mm3 (4.0-10.0)
[2018-04-16] MEDS ORDERED: VANCOMYCIN 1 GRAM (PRE-DOCKED) 1,000 MG/250 ML BAG IVPB ONE (06:38)
[2018-04-16 07:06] LABS: ALBUMIN 2.2 g/dl (3.4-5.0); ALK PHOS 85 U/L (45-117); ANION GAP 8 MMOL/L (8-16); BILIRUBIN,TOTAL 0.6 mg/dL (0.2-1); BLOOD UREA NITROGEN 19 mg/dL (7-18); CALCIUM 7.9 mg/dL (8.5-10.1); CHLORIDE 109 mmol/L (98-107); CO2 26 mmol/L (21-32); CREATININE 1.2 mg/dL (0.55-1.3); GLUCOSE,RANDOM 96 mg/dL (74-106); MAGNESIUM 2.1 mg/dL (1.8-2.4); PHOSPHOROUS 4.4 mg/dL (2.5-4.9); POTASSIUM 3.9 mmol/L (3.5-5.1); SGOT/AST 26 U/L (15-37); SGPT/ALT 8 U/L (13-61); SODIUM 144 mmol/L (136-145); TOT PROT 5.7 g/dl (6.4-8.2)
[2018-04-16] MEDS: CALCIUM 500MG/VIT-D 200 UNITS COMBO TABLET (FP) NGT SCH (10:07)
--- NOTE | 2018-04-16 10:42 | PN ---
GI 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 Subjective: No acute events Dopamine stopped this morning No diarrhea reported No rectal bleeding - Objective Vital Signs: Vital Signs Temperature 97.3 F L 04/16/18 10:00 Pulse Rate 62 04/16/18 10:07 Respiratory Rate 15 04/16/18 10:00 Blood Pressure 117/73 04/16/18 10:07 O2 Sat by Pulse Oximetry (%) 100 04/15/18 21:00 Labs: CBC, BMP 04/16/18 05:30 04/16/18 05:30 INR, PTT INR 1.18 (0.83-1.09) H 04/15/18 15:40 Problem List - Problems (1) Rectal bleeding Code(s): K62.5 - HEMORRHAGE OF ANUS AND RECTUM
--- NOTE | 2018-04-16 12:00 | PN ---
Physical Exam: SUBJECTIVE: Patient seen and examined at bedside. Per night resident, overnight pt's NGtube drained 200mL of green bile. Some blood seen, however pt was evaluated by GI, with no concern of acute active bleeding. OBJECTIVE: Vital Signs Period Temp Pulse Resp BP Sys/Campbell Pulse Ox Last 24 Hr 96.3 F-97.8 F 58-85 10-18 69-139/49-111 100-100 GENERAL: More responsive today, although still nonverbal. HEENT: AT/NC. Dry mucus membranes. NECK: Supple LAD/JVD. LUNGS: CTA B/L. No wheezes noted. Symmetric chest rise. HEART: RRR. Normal S1, S2. No murmurs noted. ABDOMEN: Soft, NT/ND. +BS in all 4Qs. MUSCULOSKELETAL: Normal range of motion at all joints. No bony deformities or tenderness. No CVA tenderness. EXTREMITIES: No peripheral edema noted. 2+ pedal pulses. NEUROLOGICAL: Will open mouth when asked. Grimaces to pain. Does not open eyes. SKIN: Warm, dry, normal turgor, no rashes or lesions noted. Laboratory Results - last 24 hr 04/15/18 04/15/18 04/15/18 05:30 12:11 15:40 WBC 8.1 RBC 4.73 Hgb 10.7 Hct 32.3 L MCV 68.3 L MCH 22.6 L MCHC 33.1 RDW 17.6 H Plt Count 142 MPV 9.5 Absolute Neuts (auto) 5.8 Neutrophils % 71.7 Neutrophils % (Manual) 60.6 Band Neutrophils % 1.0 Lymphocytes % 20.2 Lymphocytes % (Manual) 29.3 D Monocytes % 7.3 Monocytes % (Manual) 8 D Eosinophils % 0.2 D Eosinophils % (Manual) 0.0 Basophils % 0.6 Basophils % (Manual) 0.0 Myelocytes % (Man) 0 Promyelocytes % (Man) 0 Blast Cells % (Manual) 0 Nucleated RBC % 1 H Metamyelocytes 0 D Hypochromia 1+ Platelet Estimate Decreased Polychromasia 0 Poikilocytosis 0 Anisocytosis 2+ Microcytosis 2+ Macrocytosis 0 Target Cells 2+ Ovalocytes 1+ Fragmented RBCs 1+ PT with INR INR Sodium Potassium Chloride Carbon Dioxide Anion Gap BUN Creatinine Creat Clearance w eGFR POC Glucometer 105.00785 Random Glucose Calcium Phosphorus Magnesium Total Bilirubin AST ALT Alkaline Phosphatase Total Protein Albumin Blood Type Antibody Screen 04/15/18 04/15/18 04/15/18 15:40 15:40 15:45 WBC RBC Hgb Hct MCV MCH MCHC RDW Plt Count MPV Absolute Neuts (auto) Neutrophils % Neutrophils % (Manual) Band Neutrophils % Lymphocytes % Lymphocytes % (Manual) Monocytes % Monocytes % (Manual) Eosinophils % Eosinophils % (Manual) Basophils % Basophils % (Manual) Myelocytes % (Man) Promyelocytes % (Man) Blast Cells % (Manual) Nucleated RBC % Metamyelocytes Hypochromia Platelet Estimate Polychromasia Poikilocytosis Anisocytosis Microcytosis Macrocytosis Target Cells Ovalocytes Fragmented RBCs PT with INR 14.00 H INR 1.18 H Sodium Potassium Chloride Carbon Dioxide Anion Gap BUN Creatinine Creat Clearance w eGFR POC Glucometer Random Glucose Calcium Phosphorus Magnesium Total Bilirubin AST ALT Alkaline Phosphatase Total Protein Albumin Blood Type O POSITIVE O POSITIVE Antibody Screen Negative Negative 04/15/18 04/15/18 04/15/18 17:00 22:34 23:06 WBC RBC Hgb Hct MCV MCH MCHC RDW Plt Count MPV Absolute Neuts (auto) Neutrophils % Neutrophils % (Manual) Band Neutrophils % Lymphocytes % Lymphocytes % (Manual) Monocytes % Monocytes % (Manual) Eosinophils % Eosinophils % (Manual) Basophils % Basophils % (Manual) Myelocytes % (Man) Promyelocytes % (Man) Blast Cells % (Manual) Nucleated RBC % Metamyelocytes Hypochromia Platelet Estimate Polychromasia Poikilocytosis Anisocytosis Microcytosis Macrocytosis Target Cells Ovalocytes Fragmented RBCs PT with INR INR Sodium Potassium Chloride Carbon Dioxide Anion Gap BUN Creatinine Creat Clearance w eGFR POC Glucometer 84.72791 > 400 92.60197 Random Glucose Calcium Phosphorus Magnesium Total Bilirubin AST ALT Alkaline Phosphatase Total Protein Albumin Blood Type Antibody Screen 04/16/18 04/16/18 04/16/18 03:02 05:30 05:30 WBC 7.9 RBC 4.82 Hgb 10.4 L Hct 33.3 MCV 69.1 L MCH 21.6 L MCHC 31.3 L RDW 17.6 H Plt Count 126 L MPV 9.3 Absolute Neuts (auto) Neutrophils % Neutrophils % (Manual) Band Neutrophils % Lymphocytes % Lymphocytes % (Manual) Monocytes % Monocytes % (Manual) Eosinophils % Eosinophils % (Manual) Basophils % Basophils % (Manual) Myelocytes % (Man) Promyelocytes % (Man) Blast Cells % (Manual) Nucleated RBC % Metamyelocytes Hypochromia Platelet Estimate Polychromasia Poikilocytosis Anisocytosis Microcytosis Macrocytosis Target Cells Ovalocytes Fragmented RBCs PT with INR INR Sodium 144 Potassium 3.9 Chloride 109 H Carbon Dioxide 26 Anion Gap 8 BUN 19 H Creatinine 1.2 Creat Clearance w eGFR 43.23 POC Glucometer 73.92117 Random Glucose 96 Calcium 7.9 L Phosphorus 4.4 Magnesium 2.1 Total Bilirubin 0.6 AST 26 ALT 8 L Alkaline Phosphatase 85 Total Protein 5.7 L Albumin 2.2 L Blood Type Antibody Screen 04/16/18 04/16/18 05:34 10:28 WBC RBC Hgb Hct MCV MCH MCHC RDW Plt Count MPV Absolute Neuts (auto) Neutrophils % Neutrophils % (Manual) Band Neutrophils % Lymphocytes % Lymphocytes % (Manual) Monocytes % Monocytes % (Manual) Eosinophils % Eosinophils % (Manual) Basophils % Basophils % (Manual) Myelocytes % (Man) Promyelocytes % (Man) Blast Cells % (Manual) Nucleated RBC % Metamyelocytes Hypochromia Platelet Estimate Polychromasia Poikilocytosis Anisocytosis Microcytosis Macrocytosis Target Cells Ovalocytes Fragmented RBCs PT with INR INR Sodium Potassium Chloride Carbon Dioxide Anion Gap BUN Creatinine Creat Clearance w eGFR POC Glucometer 109.94087 131.02587 Random Glucose Calcium Phosphorus Magnesium Total Bilirubin AST ALT Alkaline Phosphatase Total Protein Albumin Blood Type Antibody Screen Active Medications Generic Name Dose Route Start Last Admin Trade Name Freq PRN Reason Stop Dose Admin Calcium Carbonate/Cholecalciferol 1 tab 04/15/18 10:00 04/16/18 10:07 Os-Carmelo 500+D - NGT 1 tab DAILY VASYL Administration Carbidopa/Levodopa 2 each 04/15/18 06:00 04/16/18 05:59 Sinemet 25/100 - NGT 2 each TID VASYL Administration Piperacillin Sod/Tazobactam 50 mls @ 100 mls/hr 04/14/18 10:00 04/16/18 10:07 Sod 3.375 gm/ Dextrose IVPB 100 mls/hr Q8H-IV VASYL Administration Protocol Dopamine HCl/Dextrose 400,000 mcg in 250 mls @ 11.354 mls/hr 04/14/18 13:30 04/16/18 10:07 Dopamine 400 Mg/D5w - IVPB 0 mcg/kg/min TITR VASYL 0 mls/hr Titration Protocol 5 MCG/KG/MIN ASSESSMENT/PLAN: 78 y/o female with PMH of parkinsons, dementia, HTN presents with weakness, lethargy, AMS presented to the ICU with septic shock 2/2 UTI. Neurology #Acute Metabolic Encephalopathy -likely 2/2 UTI, blood cx also + for staph epi. -Neuro checks -maintain NPO until mental status improves -IV antibiotics #Parkinson's Dementia -hold home PO meds as pt not safe to michaela PO due to minimal arousability -cont meds via NGT per neuro recs Pulmonary -satting 100% on RA -cont to monitor SpO2 Cardiovascular #Hypotension 2/2 Septic shock due to UTI/bacteremia -Dopamine 1 mcg/kg/min; wean off dopamine drip since MAP stable -BP stable, cont to monitor -Maintain MAP >65 GI -Minimal blood seen draining from NGT overnight. Evaluated by GI, no acute concern for GI bleed at this time -Per GI, PPI not needed at this time. -CBC, PT/INR, T&S ordered ID #Septic shock 2/2 UTI/PNA/Diffuse colitis -UCx showed MDR E. coli w/ sensitivity to Zosyn -IV Zosyn (started 04/14/18) and Vanc -BCx neg x48 hrs -Hypothermic; pt with peewee vásquez -ID recs appreciated FEN -no IVf needed -recheck lytes in AM -Tube Feed Osmolite Lines -RIJ central line placed 04/14/18 Visit type - Emergency Visit Emergency Visit: Yes ED Registration Date: 04/13/18 Care time: The patient presented to the Emergency Department on the above date and was hospitalized for further evaluation of their emergent condition. - New Patient This patient is new to me today: No - Critical Care Critical Care patient: Yes Total Critical Care Time (in minutes): 35 Critical Care Statement: The care of this patient involved high complexity decision making to prevent further life threatening deterioration of the patient 's condition and/or to evaluate & treat vital organ system(s) failure or risk of failure.
--- NOTE | 2018-04-16 12:19 | PN ---
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, Physician History of Present Illness: lethargic still on dopamine gi on case cardio on case - Current Medication List Current Medications: Active Medications Calcium Carbonate/Cholecalciferol (Os-Carmelo 500+D -) 1 tab NGT DAILY VASYL Last Admin: 04/16/18 10:07 Dose: 1 tab Carbidopa/Levodopa (Sinemet 25/100 -) 2 each NGT TID VASYL Last Admin: 04/16/18 05:59 Dose: 2 each Piperacillin Sod/Tazobactam (Sod 3.375 gm/ Dextrose) 50 mls @ 100 mls/hr IVPB Q8H-IV VASYL; Protocol Last Admin: 04/16/18 10:07 Dose: 100 mls/hr Dopamine HCl/Dextrose (Dopamine 400 Mg/D5w -) 400,000 mcg in 250 mls @ 11.354 mls/hr IVPB TITR VASYL; Protocol Last Titration: 04/16/18 10:07 Dose: 0 mcg/kg/min, 0 mls/hr - Objective Vital Signs: Vital Signs Temperature 97.3 F L 04/16/18 10:00 Pulse Rate 62 04/16/18 10:07 Respiratory Rate 15 04/16/18 10:00 Blood Pressure 117/73 04/16/18 10:07 O2 Sat by Pulse Oximetry (%) 100 04/16/18 09:00 Constitutional: Yes: No Distress, Calm Cardiovascular: Yes: Regular Rate and Rhythm Respiratory: Yes: Regular, CTA Bilaterally Gastrointestinal: Yes: Normal Bowel Sounds, Soft Labs: CBC, BMP 04/16/18 05:30 04/16/18 05:30 INR, PTT INR 1.18 (0.83-1.09) H 04/15/18 15:40 - ....Imaging Chest X-ray: Report Reviewed, Image Reviewed Assessment/Plan Sepsis due to UTI / PNA / Colitis Metabolic Encephalopathy Bradycardia Diarrhea GI Bleed Anemia HTN Sacral decubitus ulcer Parkinson's sepsis lethargy weakness hypothermia uti plan continue as per icu neurology continue abx monitor bleeding nutrition rest as per the team as per gi cc 37 min
--- NOTE | 2018-04-16 12:20 | PN ---
Teaching Attending Note Name of Resident: Yajaira Dillard ATTENDING PHYSICIAN STATEMENT I saw and evaluated the patient. I reviewed the resident's note and discussed the case with the resident. I agree with the resident's findings and plan as documented. SUBJECTIVE: Pt seen and examined in the ICU. Remains on dopamine gtt with bradycardia. Poorly responsive. OBJECTIVE: Vital Signs Period Temp Pulse Resp BP Sys/Campbell Pulse Ox Last 24 Hr 96.3 F-97.8 F 58-83 10-18 85-139/55-111 100-100 Intake & Output 04/13/18 04/14/18 04/15/18 04/16/18 23:59 23:59 23:59 23:59 Intake Total 1300 2313 646 1041 Output Total 120 1100 600 700 Balance 1180 1213 46 341 Weight 68.039 kg 60.555 kg 60.328 kg 63.73 kg Gen: poorly responsive Heart: bradycardic, regular Lung: scattered rhonchi Abd: soft, nontender Ext: no edema CBC, BMP 04/16/18 05:30 04/16/18 05:30 Active Medications Calcium Carbonate/Cholecalciferol (Os-Carmelo 500+D -) 1 tab NGT DAILY VASYL Last Admin: 04/16/18 10:07 Dose: 1 tab Carbidopa/Levodopa (Sinemet 25/100 -) 2 each NGT TID VASYL Last Admin: 04/16/18 05:59 Dose: 2 each Piperacillin Sod/Tazobactam (Sod 3.375 gm/ Dextrose) 50 mls @ 100 mls/hr IVPB Q8H-IV VASYL; Protocol Last Admin: 04/16/18 10:07 Dose: 100 mls/hr Dopamine HCl/Dextrose (Dopamine 400 Mg/D5w -) 400,000 mcg in 250 mls @ 11.354 mls/hr IVPB TITR VASYL; Protocol Last Titration: 04/16/18 10:07 Dose: 0 mcg/kg/min, 0 mls/hr ASSESSMENT AND PLAN: s/p Acute Hypoxic Respiratory Failure UTI r/o Pneumonia Staph Bacteremia Septic Shock Bradycardia CAD LV Diastolic Dysfunction CKD Thrombocytopenia Parkinsons Disease - continue antibiotics - f/u pending cultures - O2 to keep SpO2 >90% - taper off dopamine gtt, of note upon chart review pt has been bradycardic on prior admissions - aspiration precautions - minimize sedation - DVT prophylaxis - continue ICU monitoring while on dopamine gtt critical care time spent in reviewing chart, evaluating patient and formulating plan 35 min
--- NOTE | 2018-04-16 15:12 | PN ---
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, Physician History of Present Illness: Lethargic, poorly responsive. - Current Medication List Current Medications: Active Medications Calcium Carbonate/Cholecalciferol (Os-Carmelo 500+D -) 1 tab NGT DAILY VASYL Last Admin: 04/16/18 10:07 Dose: 1 tab Carbidopa/Levodopa (Sinemet 25/100 -) 2 each NGT TID VASYL Last Admin: 04/16/18 05:59 Dose: 2 each Piperacillin Sod/Tazobactam (Sod 3.375 gm/ Dextrose) 50 mls @ 100 mls/hr IVPB Q8H-IV VASYL; Protocol Last Admin: 04/16/18 10:07 Dose: 100 mls/hr Dopamine HCl/Dextrose (Dopamine 400 Mg/D5w -) 400,000 mcg in 250 mls @ 11.354 mls/hr IVPB TITR VASYL; Protocol Last Titration: 04/16/18 10:07 Dose: 0 mcg/kg/min, 0 mls/hr - Objective Vital Signs: Vital Signs Temperature 97.3 F L 04/16/18 10:00 Pulse Rate 64 04/16/18 12:00 Respiratory Rate 15 04/16/18 12:00 Blood Pressure 126/83 04/16/18 12:00 O2 Sat by Pulse Oximetry (%) 100 04/16/18 09:00 Constitutional: Yes: No Distress, Calm Neck: Yes: Supple Cardiovascular: Yes: Regular Rate and Rhythm Respiratory: Yes: Regular, Diminished Gastrointestinal: Yes: Normal Bowel Sounds, Soft Edema: No Labs: CBC, BMP 04/16/18 05:30 04/16/18 05:30 INR, PTT INR 1.18 (0.83-1.09) H 04/15/18 15:40 Problem List - Problems (1) Parkinson disease Code(s): G20 - PARKINSON'S DISEASE (2) Acute hypoxemic respiratory failure Code(s): J96.01 - ACUTE RESPIRATORY FAILURE WITH HYPOXIA (3) Altered mental status Code(s): R41.82 - ALTERED MENTAL STATUS, UNSPECIFIED Qualifiers: Altered mental status type: disorientation Qualified Code(s): R41.0 - Disorientation, unspecified (4) Bradycardia Code(s): R00.1 - BRADYCARDIA, UNSPECIFIED (5) E. coli UTI Code(s): N39.0 - URINARY TRACT INFECTION, SITE NOT SPECIFIED; B96.20 - UNSP ESCHERICHIA COLI THE CAUSE OF DISEASES CLASSD ELSWHR (6) Hypothermia Code(s): T68.XXXA - HYPOTHERMIA, INITIAL ENCOUNTER Qualifiers: Encounter type: subsequent encounter Qualified Code(s): T68.XXXD - Hypothermia, subsequent encounter Assessment/Plan Echocardiography dated 07/02/2017 revealed normal LV size and function with diastolic LV dysfunction 1. Acute hypoxic respiratory failure, with underlying chronic lung disease, probable pneumonia with staph sepsis syndrome 2. CAD angina pectoris 3. Diastolic LV dysfunction with clinical class 0-I NYHA classification LV failure, compensated/euvolemic 4. Hypertension, currently hypotensive related to the above noted sepsis syndrome om pressors 5. Parkinson's disease/dementia, with altered mental status related to probable sepsis syndrome 6. Bradycardia and hypothermia since resolved, related to sepsis syndrome 7. CKD 8. UTI/sepsis syndrome 9. Sacral decubitus 10. Hypernatremia improved 11. Anemia PLAN: 1. Continue Dopamine and attempt to wean off as tolerated 2. IVF D5-1/3 NS to be initiated 3. Antibiotics, with f/u C&S as per the primary team
[2018-04-16] MEDS ORDERED: DEXTROSE 5%-1/3 NS - 500 ML IV SCH (16:45)
--- NOTE | 2018-04-16 16:59 | PN ---
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, Physician History of Present Illness: stable - Current Medication List Current Medications: Active Medications Calcium Carbonate/Cholecalciferol (Os-Carmelo 500+D -) 1 tab NGT DAILY VASYL Last Admin: 04/16/18 10:07 Dose: 1 tab Carbidopa/Levodopa (Sinemet 25/100 -) 2 each NGT TID VASYL Last Admin: 04/16/18 15:00 Dose: 2 each Piperacillin Sod/Tazobactam (Sod 3.375 gm/ Dextrose) 50 mls @ 100 mls/hr IVPB Q8H-IV VASYL; Protocol Last Admin: 04/16/18 10:07 Dose: 100 mls/hr Dopamine HCl/Dextrose (Dopamine 400 Mg/D5w -) 400,000 mcg in 250 mls @ 11.354 mls/hr IVPB TITR VASYL; Protocol Last Titration: 04/16/18 10:07 Dose: 0 mcg/kg/min, 0 mls/hr Dextrose/Sodium Chloride (D5-1/3ns -) 500 mls @ 75 mls/hr IV ASDIR VASYL - Objective Vital Signs: Vital Signs Temperature 94.1 F L 04/16/18 14:00 Pulse Rate 58 L 04/16/18 14:00 Respiratory Rate 14 04/16/18 14:00 Blood Pressure 133/74 04/16/18 14:00 O2 Sat by Pulse Oximetry (%) 100 04/16/18 09:00 HENT: Yes: Atraumatic Neck: Yes: Supple Cardiovascular: Yes: Regular Rate and Rhythm Respiratory: Yes: CTA Bilaterally Gastrointestinal: Yes: Normal Bowel Sounds Extremities: Yes: WNL Edema: No Peripheral Pulses WNL: Yes Neurological: Yes: Alert, Oriented Labs: CBC, BMP 04/16/18 05:30 04/16/18 05:30 INR, PTT INR 1.18 (0.83-1.09) H 04/15/18 15:40 Problem List - Problems (1) Parkinson disease Assessment/Plan: on meds neuro follow up Code(s): G20 - PARKINSON'S DISEASE (2) Sepsis Assessment/Plan: on iv abx cxs sent id on board Code(s): A41.9 - SEPSIS, UNSPECIFIED ORGANISM (3) Urinary tract infection Assessment/Plan: iv abx cxs sent Code(s): N39.0 - URINARY TRACT INFECTION, SITE NOT SPECIFIED (4) Altered mental status Code(s): R41.82 - ALTERED MENTAL STATUS, UNSPECIFIED Qualifiers: Altered mental status type: disorientation Qualified Code(s): R41.0 - Disorientation, unspecified (5) Hypothermia Assessment/Plan: resolved Code(s): T68.XXXA - HYPOTHERMIA, INITIAL ENCOUNTER Qualifiers: Encounter type: subsequent encounter Qualified Code(s): T68.XXXD - Hypothermia, subsequent encounter (6) Rectal bleeding Assessment/Plan: resolved Code(s): K62.5 - HEMORRHAGE OF ANUS AND RECTUM Assessment/Plan icu 35 min
[2018-04-17] MEDS ORDERED: PIPERACILLIN/TAZOBACTAM 3.375 GM VIAL IVPB ONE ×3 (02:07→18:15)
[2018-04-17] MEDS ORDERED: DEXTROSE 5%-WATER - 50 ML IVPB ONE ×3 (02:07→18:15)
[2018-04-17] MEDS: PIPERACILLIN/TAZOB 3.375 GM 3.375 GM in DEXTROSE 5%-WATER - 50 ML IVPB SCH ×3 (02:42→18:32)
[2018-04-17] MEDS: CARBIDOPA/LEVODOPA 25/100 TABLET (FP) NGT SCH ×3 (06:04→21:30)
[2018-04-17 06:43] LABS: N-TERMINAL BNP 449.2 pg/ml (5-450)
[2018-04-17 07:54] LABS: HEMATOCRIT 32.8 % (32.4-45.2); HEMOGLOBIN 10.2 GM/dL (10.7-15.3); MCH 21.7 pg (25.7-33.7); MCHC 31.1 g/dl (32.0-36.0); MEAN CELL VOLUME 69.6 fl (80-96); MEAN PLT VOLUME 8.8 fl (7.5-11.1); PLATELET COUNT 122 K/MM3 (134-434); RBC 4.71 M/mm3 (3.60-5.2); RDW 17.4 % (11.6-15.6); WHITE BLOOD COUNT 6.4 K/mm3 (4.0-10.0)
--- NOTE | 2018-04-17 08:10 | PN ---
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 (short form) - Note 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: Chief Complaint: Events noted, notes reviewed, awake responsive to verbal commands, no acute distress, sinus rhythm is noted, off of pressors History of Present Illness: Seen and examined in the ICU. Events noted, notes reviewed, awake responsive to verbal commands, no acute distress, sinus rhythm is noted, off of pressors Echocardiography dated 07/02/2017 revealed normal LV size and function with diastolic LV dysfunction - Current Medication List Current Medications Calcium Carbonate/Cholecalciferol (Os-Carmelo 500+D -) 1 tab NGT DAILY VASYL Last Admin: 04/16/18 10:07 Dose: 1 tab Carbidopa/Levodopa (Sinemet 25/100 -) 2 each NGT TID VASYL Last Admin: 04/17/18 06:04 Dose: 2 each Piperacillin Sod/Tazobactam (Sod 3.375 gm/ Dextrose) 50 mls @ 100 mls/hr IVPB Q8H-IV VASYL; Protocol Last Admin: 04/17/18 02:42 Dose: 100 mls/hr Review of Systems Unable to obtain - Objective Vital Signs: Last Vital Signs Temp Pulse Resp BP Pulse Ox 97.6 F 75 14 145/90 95 04/17/18 06:39 04/17/18 06:39 04/17/18 06:39 04/17/18 06:39 04/16/18 20:39 Intake & Output 04/14/18 04/15/18 04/16/18 04/17/18 23:59 23:59 23:59 23:59 Intake Total 2313 646 1041 420 Output Total 8303 237 3367 600 Balance 1213 46 41 -180 Weight 133 lb 8 oz 133 lb 140 lb 8 oz 140 lb 14.006 oz Neck: Supple Negative JVD No Bruit Cardiovascular: S1 S2 Regular Rate and Rhythm Chest: Scattered Course Rhonchi Bilaterally Gastrointestinal: Soft Benign Normal Bowel Sounds Ext: Trace Edema Labs: CBC, BMP 04/17/18 05:30 Hepatic Panel Total Bilirubin 0.5 mg/dL (0.2-1) 04/17/18 05:30 AST 21 U/L (15-37) 04/17/18 05:30 ALT 7 U/L (13-61) L 04/17/18 05:30 Alkaline Phosphatase 84 U/L (45-117) 04/17/18 05:30 Albumin 2.3 g/dl (3.4-5.0) L 04/17/18 05:30 Assessment/Plan ASSESSMENT: 1. Acute hypoxic respiratory failure, with underlying chronic lung disease, probable pneumonia with sepsis syndrome, resolving 2. CAD angina pectoris 3. Diastolic LV dysfunction with clinical class 0-I NYHA classification LV failure, compensated/euvolemic 4. Hypertension, resolved hypotension related to the above noted sepsis syndrome off of pressors/Dopamine 5. Parkinson's disease/dementia, with altered mental status related to probable sepsis syndrome 6. Bradycardia and hypothermia since resolved, related to sepsis syndrome 7. CKD 8. UTI/sepsis syndrome, resolving 9. Sacral decubitus 10. Hypernatremia, resolved 11. Anemia, await AM CBC PLAN: 1. Initiate ARBS unless it is contraindicated 2. Avoid B-Blockers related to the above noted bradycardia 3. Follow CBC from this AM 4. May be transferred to floor care from the cardiovascular point of view Palmira Pratt MD
[2018-04-17 08:11] LABS: ALBUMIN 2.3 g/dl (3.4-5.0); ALK PHOS 84 U/L (45-117); ANION GAP 6 MMOL/L (8-16); BILIRUBIN,TOTAL 0.5 mg/dL (0.2-1); BLOOD UREA NITROGEN 15 mg/dL (7-18); CHLORIDE 111 mmol/L (98-107); CO2 28 mmol/L (21-32); CREATININE 1.1 mg/dL (0.55-1.3); GLUCOSE,RANDOM 132 mg/dL (74-106); MAGNESIUM 2.2 mg/dL (1.8-2.4); PHOSPHOROUS 3.3 mg/dL (2.5-4.9); POTASSIUM 3.7 mmol/L (3.5-5.1); SGOT/AST 21 U/L (15-37); SGPT/ALT 7 U/L (13-61); SODIUM 145 mmol/L (136-145); TOT PROT 5.7 g/dl (6.4-8.2)
[2018-04-17] MEDS: DOPAMINE 400 MG/D5W - 400,000 MCG/250 ML INFUS.BAG IVPB SCH ×2 (09:09→18:27)
[2018-04-17] MEDS: CALCIUM 500MG/VIT-D 200 UNITS COMBO TABLET (FP) NGT SCH (09:21)
--- NOTE | 2018-04-17 10:13 | PN ---
Physical Exam: SUBJECTIVE: Patient seen and examined. Alert today. Following simple commands. Denies pain. Off pressors. OBJECTIVE: Vital Signs Period Temp Pulse Resp BP Sys/Campbell Pulse Ox Last 24 Hr 94.1 F-98.2 F 58-82 14-18 110-145/63-90 95 GENERAL: more alert today, following simple commands HEENT: AT/NC. Dry mucus membranes. NECK: Supple LAD/JVD. LUNGS: CTA B/L. No wheezes noted. Symmetric chest rise. HEART: RRR. Normal S1, S2. No murmurs noted. ABDOMEN: Soft, NT/ND. +BS in all 4Qs. MUSCULOSKELETAL: Normal range of motion at all joints. No bony deformities or tenderness. No CVA tenderness. EXTREMITIES: No peripheral edema noted. 2+ pedal pulses. NEUROLOGICAL: wiggles toes, squeezes hand Laboratory Results - last 24 hr 04/14/18 04/16/18 04/17/18 06:30 10:28 05:30 WBC RBC Hgb Hct MCV MCH MCHC RDW Plt Count MPV Sodium 145 Potassium 3.7 Chloride 111 H Carbon Dioxide 28 Anion Gap 6 L BUN 15 Creatinine 1.1 Creat Clearance w eGFR 47.79 POC Glucometer 131.67773 Random Glucose 132 H Calcium 8.0 L Phosphorus 3.3 Magnesium 2.2 Total Bilirubin 0.5 AST 21 ALT 7 L Alkaline Phosphatase 84 B-Natriuretic Peptide 449.2 Total Protein 5.7 L Albumin 2.3 L Vitamin B6 4.5 04/17/18 05:30 WBC 6.4 RBC 4.71 Hgb 10.2 L Hct 32.8 MCV 69.6 L MCH 21.7 L MCHC 31.1 L RDW 17.4 H Plt Count 122 L MPV 8.8 Sodium Potassium Chloride Carbon Dioxide Anion Gap BUN Creatinine Creat Clearance w eGFR POC Glucometer Random Glucose Calcium Phosphorus Magnesium Total Bilirubin AST ALT Alkaline Phosphatase B-Natriuretic Peptide Total Protein Albumin Vitamin B6 Active Medications Generic Name Dose Route Start Last Admin Trade Name Freq PRN Reason Stop Dose Admin Calcium Carbonate/Cholecalciferol 1 tab 04/15/18 10:00 04/17/18 09:21 Os-Carmelo 500+D - NGT 1 tab DAILY VASYL Administration Carbidopa/Levodopa 2 each 04/15/18 06:00 04/17/18 06:04 Sinemet 25/100 - NGT 2 each TID VASYL Administration Piperacillin Sod/Tazobactam 50 mls @ 100 mls/hr 04/14/18 10:00 04/17/18 09:21 Sod 3.375 gm/ Dextrose IVPB 100 mls/hr Q8H-IV VASYL Administration Protocol Dopamine HCl/Dextrose 400,000 mcg in 250 mls @ 11.354 mls/hr 04/14/18 13:30 04/17/18 09:09 Dopamine 400 Mg/D5w - IVPB Not Given TITR VASYL Protocol 5 MCG/KG/MIN ASSESSMENT/PLAN: 78 y/o female with PMH of parkinsons, dementia, HTN presents with weakness, lethargy, AMS presented to the ICU with septic shock 2/2 UTI. Neurology #Acute Metabolic Encephalopathy -likely 2/2 UTI, blood cx also + for staph epi. -Neuro checks -IV antibiotics #Parkinson's Dementia -hold home PO meds as pt not safe to michaela PO due to minimal arousability -cont meds via NGT per neuro recs Pulmonary -satting 100% on RA -cont to monitor SpO2 Cardiovascular #Hypotension 2/2 Septic shock due to UTI/bacteremia -off pressors -BP stable, cont to monitor -Maintain MAP >65 GI -Evaluated by GI, no acute concern for GI bleed at this time -Per GI, PPI not needed at this time. -CBC, PT/INR, T&S ordered ID #Septic shock 2/2 UTI/PNA/Diffuse colitis -UCx showed MDR E. coli w/ sensitivity to Zosyn -IV Zosyn (started 04/14/18) and Vanc -BCx neg x48 hrs -ID recs appreciated FEN -no IVf needed -recheck lytes in AM -Tube Feed Osmolite Lines -RIJ central line placed 04/14/18 Can transfer to med-surge Visit type - Emergency Visit Emergency Visit: Yes ED Registration Date: 04/13/18 Care time: The patient presented to the Emergency Department on the above date and was hospitalized for further evaluation of their emergent condition. - New Patient This patient is new to me today: No - Critical Care Critical Care patient: Yes Total Critical Care Time (in minutes): 30 Critical Care Statement: The care of this patient involved high complexity decision making to prevent further life threatening deterioration of the patient 's condition and/or to evaluate & treat vital organ system(s) failure or risk of failure.
--- NOTE | 2018-04-17 10:18 | PN ---
Teaching Attending Note Name of Resident: Eliana Aquino ATTENDING PHYSICIAN STATEMENT I saw and evaluated the patient. I reviewed the resident's note and discussed the case with the resident. I agree with the resident's findings and plan as documented. SUBJECTIVE: Pt seen and examined in the ICU. More alert, awake today. Off dopamine gtt. No further bradycardia. OBJECTIVE: Vital Signs Period Temp Pulse Resp BP Sys/Campbell Pulse Ox Last 24 Hr 94.1 F-98.2 F 58-82 14-18 110-145/68-90 95 Intake & Output 04/14/18 04/15/18 04/16/18 04/17/18 23:59 23:59 23:59 23:59 Intake Total 2313 646 1041 420 Output Total 6582 482 9983 600 Balance 1213 46 41 -180 Weight 60.555 kg 60.328 kg 63.73 kg 63.9 kg Gen: more alert, awake Heart: RRR Lung: scattered rhonchi Abd: soft, nontender Ext: no edema CBC, BMP 04/17/18 05:30 04/17/18 05:30 Active Medications Calcium Carbonate/Cholecalciferol (Os-Carmelo 500+D -) 1 tab NGT DAILY [facility] Last Admin: 04/17/18 09:21 Dose: 1 tab Carbidopa/Levodopa (Sinemet 25/100 -) 2 each NGT TID [facility] Last Admin: 04/17/18 06:04 Dose: 2 each Piperacillin Sod/Tazobactam (Sod 3.375 gm/ Dextrose) 50 mls @ 100 mls/hr IVPB Q8H-IV [facility]; Protocol Last Admin: 04/17/18 09:21 Dose: 100 mls/hr Dopamine HCl/Dextrose (Dopamine 400 Mg/D5w -) 400,000 mcg in 250 mls @ 11.354 mls/hr IVPB TITR [facility]; Protocol Last Admin: 04/17/18 09:09 Dose: Not Given ASSESSMENT AND PLAN: s/p Acute Hypoxic Respiratory Failure UTI r/o Pneumonia Staph Bacteremia Septic Shock Bradycardia CAD LV Diastolic Dysfunction CKD Thrombocytopenia Parkinsons Disease - continue antibiotics - f/u pending cultures - O2 to keep SpO2 >90% - off dopamine gtt - aspiration precautions - minimize sedation - DVT prophylaxis - can monitor on floor critical care time spent in reviewing chart, evaluating patient and formulating plan 35 min
--- NOTE | 2018-04-17 15:29 | PN ---
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, Physician History of Present Illness: looks much calmer stable still non verbal more awake and alert off of pressors - Current Medication List Current Medications: Active Medications Calcium Carbonate/Cholecalciferol (Os-Carmelo 500+D -) 1 tab NGT DAILY [facility] Last Admin: 04/17/18 09:21 Dose: 1 tab Carbidopa/Levodopa (Sinemet 25/100 -) 2 each NGT TID [facility] Last Admin: 04/17/18 14:32 Dose: 2 each Piperacillin Sod/Tazobactam (Sod 3.375 gm/ Dextrose) 50 mls @ 100 mls/hr IVPB Q8H-IV [facility]; Protocol Last Admin: 04/17/18 09:21 Dose: 100 mls/hr Dopamine HCl/Dextrose (Dopamine 400 Mg/D5w -) 400,000 mcg in 250 mls @ 11.354 mls/hr IVPB TITR [facility]; Protocol Last Admin: 04/17/18 09:09 Dose: Not Given - Objective Vital Signs: Vital Signs Temperature 97.6 F 04/17/18 06:39 Pulse Rate 75 04/17/18 06:39 Respiratory Rate 14 04/17/18 06:39 Blood Pressure 145/90 04/17/18 06:39 O2 Sat by Pulse Oximetry (%) 95 04/16/18 20:39 Constitutional: Yes: No Distress, Calm Cardiovascular: Yes: S1, S2 Respiratory: Yes: Regular, CTA Bilaterally Gastrointestinal: Yes: Normal Bowel Sounds, Soft, Other (ng in place) Musculoskeletal: Yes: WNL Extremities: Yes: WNL Neurological: Yes: Alert Psychiatric: Yes: Alert Labs: CBC, BMP 04/17/18 05:30 04/17/18 05:30 INR, PTT INR 1.18 (0.83-1.09) H 04/15/18 15:40 Assessment/Plan Sepsis due to UTI / PNA / Colitis Metabolic Encephalopathy Bradycardia Diarrhea GI Bleed Anemia HTN Sacral decubitus ulcer Parkinson's sepsis lethargy weakness hypothermia uti plan continue as per icu neurology continue abx might deescalate abx tomorrow all cx results noted nutrition rest as per the team as per gi cc 37 min
--- NOTE | 2018-04-17 16:03 | PN ---
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, Physician History of Present Illness: stable - Current Medication List Current Medications: Active Medications Calcium Carbonate/Cholecalciferol (Os-Carmelo 500+D -) 1 tab NGT DAILY [facility] Last Admin: 04/17/18 09:21 Dose: 1 tab Carbidopa/Levodopa (Sinemet 25/100 -) 2 each NGT TID [facility] Last Admin: 04/17/18 14:32 Dose: 2 each Piperacillin Sod/Tazobactam (Sod 3.375 gm/ Dextrose) 50 mls @ 100 mls/hr IVPB Q8H-IV [facility]; Protocol Last Admin: 04/17/18 09:21 Dose: 100 mls/hr Dopamine HCl/Dextrose (Dopamine 400 Mg/D5w -) 400,000 mcg in 250 mls @ 11.354 mls/hr IVPB TITR [facility]; Protocol Last Admin: 04/17/18 09:09 Dose: Not Given - Objective Vital Signs: Vital Signs Temperature 97.6 F 04/17/18 06:39 Pulse Rate 75 04/17/18 06:39 Respiratory Rate 14 04/17/18 09:00 Blood Pressure 145/90 04/17/18 06:39 O2 Sat by Pulse Oximetry (%) 95 04/17/18 09:00 Constitutional: Yes: No Distress HENT: Yes: Atraumatic Neck: Yes: Supple Cardiovascular: Yes: Regular Rate and Rhythm Respiratory: Yes: Rhonchi Gastrointestinal: Yes: Normal Bowel Sounds Extremities: Yes: WNL Edema: No Peripheral Pulses WNL: Yes Neurological: Yes: Alert, Oriented Labs: CBC, BMP 04/17/18 05:30 04/17/18 05:30 INR, PTT INR 1.18 (0.83-1.09) H 04/15/18 15:40 Problem List - Problems (1) Parkinson disease Assessment/Plan: on meds neuro on board Code(s): G20 - PARKINSON'S DISEASE (2) Sepsis Assessment/Plan: on iv abx off of pressors iv fluids..off on tube feeds Code(s): A41.9 - SEPSIS, UNSPECIFIED ORGANISM (3) Urinary tract infection Assessment/Plan: iv abx cxs sent Code(s): N39.0 - URINARY TRACT INFECTION, SITE NOT SPECIFIED (4) Altered mental status Code(s): R41.82 - ALTERED MENTAL STATUS, UNSPECIFIED Qualifiers: Altered mental status type: disorientation Qualified Code(s): R41.0 - Disorientation, unspecified (5) Hypothermia Assessment/Plan: resolved Code(s): T68.XXXA - HYPOTHERMIA, INITIAL ENCOUNTER Qualifiers: Encounter type: subsequent encounter Qualified Code(s): T68.XXXD - Hypothermia, subsequent encounter (6) Rectal bleeding Assessment/Plan: resolved Code(s): K62.5 - HEMORRHAGE OF ANUS AND RECTUM
[2018-04-18] MEDS: PIPERACILLIN/TAZOB 3.375 GM 3.375 GM in DEXTROSE 5%-WATER - 50 ML IVPB SCH ×2 (03:00→09:47)
[2018-04-18] MEDS ORDERED: DEXTROSE 5%-WATER - 50 ML IVPB ONE ×2 (03:34→09:33)
[2018-04-18] MEDS ORDERED: PIPERACILLIN/TAZOBACTAM 3.375 GM VIAL IVPB ONE ×2 (03:34→09:33)
[2018-04-18] MEDS: CARBIDOPA/LEVODOPA 25/100 TABLET (FP) NGT SCH ×3 (05:47→22:07)
[2018-04-18 06:08] LABS: HEMATOCRIT 33.6 % (32.4-45.2); HEMOGLOBIN 10.5 GM/dL (10.7-15.3); MCH 21.6 pg (25.7-33.7); MCHC 31.3 g/dl (32.0-36.0); MEAN PLT VOLUME 8.6 fl (7.5-11.1); PLATELET COUNT 127 K/MM3 (134-434); RBC 4.86 M/mm3 (3.60-5.2); RDW 17.2 % (11.6-15.6); WHITE BLOOD COUNT 7.5 K/mm3 (4.0-10.0)
[2018-04-18 06:42] LABS: ALBUMIN 2.2 g/dl (3.4-5.0); ALK PHOS 81 U/L (45-117); ANION GAP 6 MMOL/L (8-16); BILIRUBIN,TOTAL 0.3 mg/dL (0.2-1); BLOOD UREA NITROGEN 15 mg/dL (7-18); CHLORIDE 108 mmol/L (98-107); CO2 29 mmol/L (21-32); GLUCOSE,RANDOM 139 mg/dL (74-106); PHOSPHOROUS 3.4 mg/dL (2.5-4.9); SGOT/AST 17 U/L (15-37); SGPT/ALT 13 U/L (13-61); SODIUM 144 mmol/L (136-145); TOT PROT 5.9 g/dl (6.4-8.2)
--- NOTE | 2018-04-18 07:44 | PN ---
Physical Exam: SUBJECTIVE: Patient seen and examined. Pt taken off dopamine. No acute events overnight. OBJECTIVE: Vital Signs Period Temp Pulse Resp BP Sys/Campbell Pulse Ox Last 24 Hr 98.6 F-98.6 F 73-79 12-18 149-160/84-89 95-99 GENERAL: more alert today, following simple commands HEENT: AT/NC. Drooling. NECK: Supple LAD/JVD. LUNGS: CTA B/L. No wheezes noted. Symmetric chest rise. HEART: RRR. Normal S1, S2. No murmurs noted. ABDOMEN: Soft, NT/ND. +BS in all 4Qs. MUSCULOSKELETAL: Normal range of motion at all joints. No bony deformities or tenderness. No CVA tenderness. EXTREMITIES: No peripheral edema noted. 2+ pedal pulses. NEUROLOGICAL: wiggles toes, squeezes hand Laboratory Results - last 24 hr 04/14/18 04/17/18 04/17/18 06:30 05:30 05:30 WBC 6.4 RBC 4.71 Hgb 10.2 L Hct 32.8 MCV 69.6 L MCH 21.7 L MCHC 31.1 L RDW 17.4 H Plt Count 122 L MPV 8.8 Sodium 145 Potassium 3.7 Chloride 111 H Carbon Dioxide 28 Anion Gap 6 L BUN 15 Creatinine 1.1 Creat Clearance w eGFR 47.79 Random Glucose 132 H Calcium 8.0 L Phosphorus 3.3 Magnesium 2.2 Total Bilirubin 0.5 AST 21 ALT 7 L Alkaline Phosphatase 84 B-Natriuretic Peptide 449.2 Total Protein 5.7 L Albumin 2.3 L Vitamin B6 4.5 04/18/18 04/18/18 05:30 05:30 WBC 7.5 RBC 4.86 Hgb 10.5 L Hct 33.6 MCV 69.0 L MCH 21.6 L MCHC 31.3 L RDW 17.2 H Plt Count 127 L MPV 8.6 Sodium 144 Potassium 4.0 Chloride 108 H Carbon Dioxide 29 Anion Gap 6 L BUN 15 Creatinine 1.0 Creat Clearance w eGFR 53.35 Random Glucose 139 H Calcium 8.0 L Phosphorus 3.4 Magnesium 2.0 Total Bilirubin 0.3 AST 17 ALT 13 Alkaline Phosphatase 81 B-Natriuretic Peptide Total Protein 5.9 L Albumin 2.2 L Vitamin B6 Active Medications Generic Name Dose Route Start Last Admin Trade Name Freq PRN Reason Stop Dose Admin Calcium Carbonate/Cholecalciferol 1 tab 04/15/18 10:00 04/17/18 09:21 Os-Carmelo 500+D - NGT 1 tab DAILY [facility] Administration Carbidopa/Levodopa 2 each 04/15/18 06:00 04/18/18 05:47 Sinemet 25/100 - NGT 2 each TID [facility] Administration Piperacillin Sod/Tazobactam 50 mls @ 100 mls/hr 04/14/18 10:00 04/18/18 03:00 Sod 3.375 gm/ Dextrose IVPB 100 mls/hr Q8H-IV [facility] Administration Protocol Dopamine HCl/Dextrose 400,000 mcg in 250 mls @ 11.354 mls/hr 04/14/18 13:30 04/17/18 18:27 Dopamine 400 Mg/D5w - IVPB Not Given TITR [facility] Protocol 5 MCG/KG/MIN ASSESSMENT/PLAN: 78 y/o female with PMH of parkinsons, dementia, HTN presents with weakness, lethargy, AMS presented to the ICU with septic shock 2/2 UTI. Neurology #Acute Metabolic Encephalopathy -likely 2/2 UTI, blood cx also + for staph epi. -Neuro checks -IV antibiotics #Parkinson's Dementia -Per neuro: c/w Sinemet -hold home PO meds as pt not safe to michaela PO due to minimal arousability Pulmonary -satting 100% on RA -cont to monitor SpO2 Cardiovascular #Hypotension 2/2 Septic shock due to UTI/bacteremia -Off pressors -BP stable, cont to monitor -Per cardio: start Valsartan 80 mg PO QD -Maintain MAP >65 GI -Evaluated by GI, no acute concern for GI bleed at this time -Per GI, PPI not needed at this time. ID #Septic shock 2/2 UTI/PNA/Diffuse colitis -UCx showed MDR E. coli w/ sensitivity to Zosyn -IV Zosyn (started 04/14/18) and Vanc -BCx neg x48 hrs -ID recs appreciated FEN -no IVf needed -recheck lytes in AM -Tube Feed Osmolite Lines -RIJ central line placed 04/14/18 -NGT Can transfer to med-surge Visit type - Emergency Visit Emergency Visit: Yes ED Registration Date: 04/13/18 Care time: The patient presented to the Emergency Department on the above date and was hospitalized for further evaluation of their emergent condition. - New Patient This patient is new to me today: No - Critical Care Critical Care patient: Yes Total Critical Care Time (in minutes): 30 Critical Care Statement: The care of this patient involved high complexity decision making to prevent further life threatening deterioration of the patient 's condition and/or to evaluate & treat vital organ system(s) failure or risk of failure.
--- NOTE | 2018-04-18 08:44 | PN ---
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 (short form) - Note 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: Chief Complaint: Events noted, notes reviewed, awake responsive to verbal commands, no acute distress, sinus rhythm is noted, overall no change in status History of Present Illness: Seen and examined in the ICU. Events noted, notes reviewed, awake responsive to verbal commands, no acute distress, sinus rhythm is noted, overall no change in status Echocardiography dated 07/02/2017 revealed normal LV size and function with diastolic LV dysfunction - Current Medication List Current Medications Calcium Carbonate/Cholecalciferol (Os-Carmelo 500+D -) 1 tab NGT DAILY [facility] Last Admin: 04/17/18 09:21 Dose: 1 tab Carbidopa/Levodopa (Sinemet 25/100 -) 2 each NGT TID [facility] Last Admin: 04/18/18 05:47 Dose: 2 each Piperacillin Sod/Tazobactam (Sod 3.375 gm/ Dextrose) 50 mls @ 100 mls/hr IVPB Q8H-IV [facility]; Protocol Last Admin: 04/18/18 03:00 Dose: 100 mls/hr Review of Systems Unable to obtain - Objective Vital Signs: Last Vital Signs Temp Pulse Resp BP Pulse Ox 98.6 F 73 18 151/85 99 04/18/18 06:00 04/18/18 06:00 04/18/18 06:00 04/18/18 06:00 04/17/18 20:28 Intake & Output 04/15/18 04/16/18 04/17/18 04/18/18 23:59 23:59 23:59 23:59 Intake Total 646 1041 420 880 Output Total 600 1000 600 900 Balance 46 41 -180 -20 Weight 133 lb 140 lb 8 oz 140 lb 14.006 oz 143 lb 15.39 oz Neck: Supple Negative JVD No Bruit Cardiovascular: S1 S2 Regular Rate and Rhythm Chest: Scattered Course Rhonchi Bilaterally Gastrointestinal: Soft Benign Normal Bowel Sounds Ext: Trace Edema Labs: CBC, BMP 04/18/18 05:30 04/18/18 05:30 Assessment/Plan ASSESSMENT: 1. Acute hypoxic respiratory failure, with underlying chronic lung disease, probable pneumonia with sepsis syndrome, resolving 2. CAD angina pectoris 3. Diastolic LV dysfunction with clinical class 0-I NYHA classification LV failure, compensated/euvolemic 4. Hypertension, resolved hypotension related to the above noted sepsis syndrome off of pressors/Dopamine 5. Parkinson's disease/dementia, with altered mental status related to probable sepsis syndrome 6. Bradycardia (cannot exclude underlying sinus node dysfunction) and hypothermia since resolved, related to sepsis syndrome 7. CKD 8. UTI/sepsis syndrome, resolving 9. Sacral decubitus 10. Hypernatremia, resolved 11. Anemia PLAN: 1. As outlined in yesterday's note initiate ARBS unless it is contraindicated 2. Avoid B-Blockers related to the above noted bradycardia (cannot exclude underlying sinus node dysfunction) 3. Antibiotics as per the primary team 4. As outlined in yesterday's note may be transferred to floor care from the cardiovascular point of view Palmira Pratt MD
[2018-04-18] MEDS: CALCIUM 500MG/VIT-D 200 UNITS COMBO TABLET (FP) NGT SCH (09:46)
[2018-04-18] MEDS: VALSARTAN 80 MG TABLET (UD) PO SCH (09:46)
--- NOTE | 2018-04-18 10:39 | PN ---
Teaching Attending Note Name of Resident: Yajaira Dillard ATTENDING PHYSICIAN STATEMENT I saw and evaluated the patient. I reviewed the resident's note and discussed the case with the resident. I agree with the resident's findings and plan as documented. SUBJECTIVE: Pt seen and examined in the ICU. No events overnight. Mental status unchanged. No fevers recorded. OBJECTIVE: Vital Signs Period Temp Pulse Resp BP Sys/Campbell Pulse Ox Last 24 Hr 98.6 F-98.6 F 70-80 12-18 110-160/68-89 98-99 Intake & Output 04/15/18 04/16/18 04/17/18 04/18/18 23:59 23:59 23:59 23:59 Intake Total 646 1041 420 880 Output Total 600 1000 600 900 Balance 46 41 -180 -20 Weight 60.328 kg 63.73 kg 63.9 kg 65.3 kg Gen: somnolent but arousable Heart: RRR Lung: decreased breath sounds at the bases Abd: soft, nontender Ext: no edema CBC, BMP 04/18/18 05:30 04/18/18 05:30 Active Medications Calcium Carbonate/Cholecalciferol (Os-Carmelo 500+D -) 1 tab NGT DAILY [facility] Last Admin: 04/18/18 09:46 Dose: 1 tab Carbidopa/Levodopa (Sinemet 25/100 -) 2 each NGT TID [facility] Last Admin: 04/18/18 05:47 Dose: 2 each Piperacillin Sod/Tazobactam (Sod 3.375 gm/ Dextrose) 50 mls @ 100 mls/hr IVPB Q8H-IV [facility]; Protocol Last Admin: 04/18/18 09:47 Dose: 100 mls/hr Valsartan (Diovan -) 80 mg PO DAILY [facility] Last Admin: 04/18/18 09:46 Dose: 80 mg ASSESSMENT AND PLAN: s/p Acute Hypoxic Respiratory Failure UTI r/o Pneumonia Staph Bacteremia Septic Shock resolved Bradycardia improved CAD LV Diastolic Dysfunction CKD Thrombocytopenia Parkinsons Disease - continue antibiotics - O2 to keep SpO2 >90% - off dopamine gtt - aspiration precautions - minimize sedation - DVT prophylaxis - can monitor on floor
--- NOTE | 2018-04-18 11:01 | PN ---
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, Physician History of Present Illness: stable doing well more awake still lethargic - Current Medication List Current Medications: Active Medications Calcium Carbonate/Cholecalciferol (Os-Carmelo 500+D -) 1 tab NGT DAILY [facility] Last Admin: 04/18/18 09:46 Dose: 1 tab Carbidopa/Levodopa (Sinemet 25/100 -) 2 each NGT TID [facility] Last Admin: 04/18/18 05:47 Dose: 2 each Piperacillin Sod/Tazobactam (Sod 3.375 gm/ Dextrose) 50 mls @ 100 mls/hr IVPB Q8H-IV [facility]; Protocol Last Admin: 04/18/18 09:47 Dose: 100 mls/hr Valsartan (Diovan -) 80 mg PO DAILY [facility] Last Admin: 04/18/18 09:46 Dose: 80 mg - Objective Vital Signs: Vital Signs Temperature 98.6 F 04/18/18 06:00 Pulse Rate 73 04/18/18 06:00 Respiratory Rate 18 04/18/18 06:00 Blood Pressure 151/85 04/18/18 06:00 O2 Sat by Pulse Oximetry (%) 98 04/18/18 09:00 Constitutional: Yes: No Distress, Calm Cardiovascular: Yes: S1, S2 Respiratory: Yes: Regular, CTA Bilaterally Gastrointestinal: Yes: Normal Bowel Sounds, Soft, Other (ng tube in place) Musculoskeletal: Yes: WNL Extremities: Yes: WNL Neurological: Yes: Other Labs: CBC, BMP 04/18/18 05:30 04/18/18 05:30 INR, PTT INR 1.18 (0.83-1.09) H 04/15/18 15:40 - ....Imaging Chest X-ray: Report Reviewed, Image Reviewed Assessment/Plan sepsis lethargy weakness hypothermia uti plan continue as per icu neurology will stop zosyn will monitor without abx nutrition rest as per the team cc 37 min
[2018-04-18] MEDS ORDERED: PT OWN MED DRAWER 7, Y5N ONE (16:31)
--- NOTE | 2018-04-18 17:53 | PN ---
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 (short form) - Note 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: Patient's daughter is at bed side. Wants to know why her mother is not at her baseline. States that patient used to be awake, alert, oriented, independent but now doesn't talk or respond. Concerned for the mental status not getting better. Discussed about patient's current medical condition and recent Head CT done was not significant for any acute pathology. However, requesting to repeat head CT. Plan: Head CT without contrast. Monitor in ICU overnight.
--- NOTE | 2018-04-18 19:21 | PN ---
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, Physician History of Present Illness: stable - Current Medication List Current Medications: Active Medications Calcium Carbonate/Cholecalciferol (Os-Carmelo 500+D -) 1 tab NGT DAILY [facility] Last Admin: 04/18/18 09:46 Dose: 1 tab Carbidopa/Levodopa (Sinemet 25/100 -) 2 each NGT TID [facility] Last Admin: 04/18/18 14:20 Dose: 2 each Valsartan (Diovan -) 80 mg PO DAILY [facility] Last Admin: 04/18/18 09:46 Dose: 80 mg - Objective Vital Signs: Vital Signs Temperature 98.6 F 04/18/18 06:00 Pulse Rate 76 04/18/18 14:00 Respiratory Rate 18 04/18/18 14:00 Blood Pressure 135/79 04/18/18 14:00 O2 Sat by Pulse Oximetry (%) 98 04/18/18 09:00 Constitutional: Yes: No Distress HENT: Yes: Atraumatic Neck: Yes: Supple Cardiovascular: Yes: Regular Rate and Rhythm Respiratory: Yes: Rhonchi Gastrointestinal: Yes: Normal Bowel Sounds Extremities: Yes: WNL Neurological: Yes: Lethargy Labs: CBC, BMP 04/18/18 05:30 04/18/18 05:30 INR, PTT INR 1.18 (0.83-1.09) H 04/15/18 15:40 Problem List - Problems (1) Parkinson disease Assessment/Plan: on meds neuro on board Code(s): G20 - PARKINSON'S DISEASE (2) Sepsis Assessment/Plan: off of abx on tube feeds Code(s): A41.9 - SEPSIS, UNSPECIFIED ORGANISM (3) Urinary tract infection Assessment/Plan: off of abx new cxs sent Code(s): N39.0 - URINARY TRACT INFECTION, SITE NOT SPECIFIED (4) Altered mental status Assessment/Plan: still lethargic Code(s): R41.82 - ALTERED MENTAL STATUS, UNSPECIFIED Qualifiers: Altered mental status type: disorientation Qualified Code(s): R41.0 - Disorientation, unspecified (5) Hypothermia Assessment/Plan: resolved Code(s): T68.XXXA - HYPOTHERMIA, INITIAL ENCOUNTER Qualifiers: Encounter type: subsequent encounter Qualified Code(s): T68.XXXD - Hypothermia, subsequent encounter (6) Rectal bleeding Code(s): K62.5 - HEMORRHAGE OF ANUS AND RECTUM
[2018-04-19] MEDS: CARBIDOPA/LEVODOPA 25/100 TABLET (FP) NGT SCH ×3 (07:00→22:41)
--- NOTE | 2018-04-19 08:29 | PN ---
Physical Exam: SUBJECTIVE: Patient seen and examined. No acute events overnight. Pt's daughter present yesterday. Per night team, there is concern for pt's mental status not getting better, repeat head CT done per request of daughter. REVIEW OF SYSTEMS Unable to obtain. OBJECTIVE: Vital Signs Period Temp Pulse Resp BP Sys/Campbell Pulse Ox Last 24 Hr 98.0 F-100.1 F 72-92 14-28 116-135/64-79 97-98 GENERAL: Sleeping. Minimal response to stimuli. Grimaces to pain. HEENT: AT/NC. Drooling. NG tube in place. NECK: Supple LAD/JVD. LUNGS: CTA B/L. No wheezes noted. Symmetric chest rise. HEART: RRR. Normal S1, S2. No murmurs noted. ABDOMEN: Soft, NT/ND. +BS in all 4Qs. MUSCULOSKELETAL: Normal range of motion at all joints. No bony deformities or tenderness. No CVA tenderness. EXTREMITIES: No peripheral edema noted. 2+ pedal pulses. NEUROLOGICAL: Less alert today. Grimaces to pain. SKIN: Multiple scattered superficial decubitus ulcers, non bleeding, non- erythematous, non-infected. Active Medications Generic Name Dose Route Start Last Admin Trade Name Freq PRN Reason Stop Dose Admin Calcium Carbonate/Cholecalciferol 1 tab 04/15/18 10:00 04/18/18 09:46 Os-Carmelo 500+D - NGT 1 tab DAILY [facility] Administration Carbidopa/Levodopa 2 each 04/15/18 06:00 04/19/18 07:00 Sinemet 25/100 - NGT 2 each TID [facility] Administration Valsartan 80 mg 04/18/18 10:00 04/18/18 09:46 Diovan - PO 80 mg DAILY [facility] Administration ASSESSMENT/PLAN: 78 y/o female with PMH of parkinsons, dementia, HTN presents with weakness, lethargy, AMS presented to the ICU with septic shock 2/2 UTI. Neurology #Acute Metabolic Encephalopathy -Altered mental status of unknown etiology as pt was previously conversant per daughter. -likely 2/2 UTI, blood cx also + for staph epi. -Neuro checks #Parkinson's Dementia -Per neuro: c/w Sinemet -hold home PO meds as pt not safe to michaela PO due to minimal arousability Pulmonary -satting 100% on RA -cont to monitor SpO2 Cardiovascular #Hypotension 2/2 Septic shock due to UTI/bacteremia -BP stable, cont to monitor off pressors -Per cardio: Valsartan 80 mg PO QD, may be transferred out of ICU from CV standpoint -Maintain MAP >65 GI -Per GI, PPI not needed at this time. ID #Septic shock 2/2 UTI/PNA/Diffuse colitis -Febrile this AM at 100.6; Tylenol given, repeat BCx, U/A, CXR ordered due to concern of aspiration as pt has poor swallow, persistently drooling. ID made aware, will cont to monitor, no Abx indicated at this time. -Per ID, Zosyn dc'd; BCx neg x96 hrs FEN -no IVf needed -recheck lytes in AM -Tube Feed Osmolite Lines -NGT -stokes catheter Dispo -transfer to tele Visit type - Emergency Visit Emergency Visit: Yes ED Registration Date: 04/13/18 Care time: The patient presented to the Emergency Department on the above date and was hospitalized for further evaluation of their emergent condition. - New Patient This patient is new to me today: No - Critical Care Critical Care patient: Yes Total Critical Care Time (in minutes): 35 Critical Care Statement: The care of this patient involved high complexity decision making to prevent further life threatening deterioration of the patient 's condition and/or to evaluate & treat vital organ system(s) failure or risk of failure.
[2018-04-19] MEDS ORDERED: ACETAMINOPHEN 1000 MG/100 ML VIAL (NON FORMULARY) IVPB ONE (08:46)
--- NOTE | 2018-04-19 08:50 | PN ---
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 (short form) - Note 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: Chief Complaint: Events noted, notes reviewed, lethargic febrile minimal response to stimuli, no acute distress, sinus rhythm is noted History of Present Illness: Seen and examined in the ICU. Events noted, notes reviewed, lethargic febrile minimal response to stimuli, no acute distress, sinus rhythm is noted Echocardiography dated 07/02/2017 revealed normal LV size and function with diastolic LV dysfunction - Current Medication List Current Medications Acetaminophen (Ofirmev Injection -) 1,000 mg IVPB ONCE ONE Stop: 04/19/18 08:47 Calcium Carbonate/Cholecalciferol (Os-Carmelo 500+D -) 1 tab NGT DAILY [facility] Last Admin: 04/18/18 09:46 Dose: 1 tab Carbidopa/Levodopa (Sinemet 25/100 -) 2 each NGT TID [facility] Last Admin: 04/19/18 07:00 Dose: 2 each Valsartan (Diovan -) 80 mg PO DAILY [facility] Last Admin: 04/18/18 09:46 Dose: 80 mg Review of Systems Unable to obtain - Objective Vital Signs: Last Vital Signs Temp Pulse Resp BP Pulse Ox 100.6 F H 94 H 16 109/67 97 04/19/18 08:42 04/19/18 08:42 04/19/18 08:42 04/19/18 08:42 04/18/18 21:00 Intake & Output 04/16/18 04/17/18 04/18/18 04/19/18 23:59 23:59 23:59 23:59 Intake Total 6376 512 4634 Output Total 5162 194 7391 Balance 41 -180 -520 Weight 140 lb 8 oz 140 lb 14.006 oz 143 lb 15.39 oz 139 lb 15.896 oz Neck: Supple Negative JVD No Bruit Cardiovascular: S1 S2 Regular Rate and Rhythm Chest: Scattered Course Rhonchi Bilaterally Gastrointestinal: Soft Benign Normal Bowel Sounds Ext: Trace Edema Labs: CBC, BMP 04/18/18 05:30 04/18/18 05:30 ABG Results ABG pH 7.33 (7.35-7.45) L 04/13/18 17:31 ABG pCO2 at Pt Temp 41.9 mmHg (35-45) 04/13/18 17:31 ABG pO2 at Pt Temp 178.0 mmHg (68-100) H* D 04/13/18 17:31 ABG HCO3 21.3 meq/L (22-26) L 04/13/18 17:31 ABG O2 Sat (Measured) 99.0 % (90-98.9) H 04/13/18 17:31 ABG O2 Content 13.6 % vol (15-22) L 04/13/18 17:31 ABG Base Excess -3.8 meq/l (-2-2) L 04/13/18 17:31 Assessment/Plan ASSESSMENT: 1. Acute hypoxic respiratory failure, with underlying chronic lung disease, probable pneumonia with sepsis syndrome, recurrent fever 2. CAD angina pectoris 3. Diastolic LV dysfunction with clinical class 0-I NYHA classification LV failure, compensated/euvolemic 4. Hypertension, resolved hypotension related to the above noted sepsis syndrome off of pressors/Dopamine 5. Parkinson's disease/dementia, with altered mental status related to probable sepsis syndrome 6. Bradycardia (cannot exclude underlying sinus node dysfunction) and hypothermia since resolved, related to sepsis syndrome 7. CKD 8. UTI/sepsis syndrome, recurrent fever 9. Sacral decubitus 10. Hypernatremia, resolved 11. Anemia/thrombocytopenia PLAN: 1. Continue Diovan 2. As outlined in prior notes avoid B-Blockers related to the above noted bradycardia (cannot exclude underlying sinus node dysfunction) 3. Antibiotics as per the primary team, evaluation of recurrent fever 4. As outlined in prior notes may be transferred to floor care from the cardiovascular point of view Palmira Pratt MD
[2018-04-19] MEDS: VALSARTAN 80 MG TABLET (UD) PO SCH (09:54)
[2018-04-19] MEDS: CALCIUM 500MG/VIT-D 200 UNITS COMBO TABLET (FP) NGT SCH (09:54)
--- NOTE | 2018-04-19 10:11 | PN ---
Teaching Attending Note Name of Resident: Yajaira Dillard ATTENDING PHYSICIAN STATEMENT I saw and evaluated the patient. I reviewed the resident's note and discussed the case with the resident. I agree with the resident's findings and plan as documented. SUBJECTIVE: Pt seen and examined in the ICU. Low grade fever this AM. Remains poorly responsive. OBJECTIVE: Vital Signs Period Temp Pulse Resp BP Sys/Campbell Pulse Ox Last 24 Hr 98.0 F-100.6 F 72-94 14-28 109-135/64-79 96-97 Intake & Output 04/16/18 04/17/18 04/18/18 04/19/18 23:59 23:59 23:59 23:59 Intake Total 7032 551 9293 Output Total 4270 370 3834 Balance 41 -180 -520 Weight 63.73 kg 63.9 kg 65.3 kg 63.5 kg Gen: poorly responsive Heart: RRR Lung: scattered rhonchi Abd: soft, nontender Ext: no edema CBC, BMP 04/18/18 05:30 04/18/18 05:30 Active Medications Calcium Carbonate/Cholecalciferol (Os-Carmelo 500+D -) 1 tab NGT DAILY [facility] Last Admin: 04/19/18 09:54 Dose: 1 tab Carbidopa/Levodopa (Sinemet 25/100 -) 2 each NGT TID [facility] Last Admin: 04/19/18 07:00 Dose: 2 each Valsartan (Diovan -) 80 mg PO DAILY [facility] Last Admin: 04/19/18 09:54 Dose: 80 mg ASSESSMENT AND PLAN: s/p Acute Hypoxic Respiratory Failure UTI r/o Pneumonia Staph Bacteremia Septic Shock resolved Bradycardia improved CAD LV Diastolic Dysfunction CKD Thrombocytopenia Parkinsons Disease - monitoring off antibiotics - f/u repeat cultures - O2 to keep SpO2 >90% - off dopamine gtt - aspiration precautions - neuro f/u - DVT prophylaxis - can monitor on floor
[2018-04-19 11:32] LABS: BASO % 0.5 % (0-2.0); EOS % 0.3 % (0-4.5); HEMATOCRIT 31.7 % (32.4-45.2); HEMOGLOBIN 9.8 GM/dL (10.7-15.3); LYMPH % 25.8 % (8-40); MCH 21.5 pg (25.7-33.7); MEAN CELL VOLUME 69.4 fl (80-96); MEAN PLT VOLUME 8.6 fl (7.5-11.1); MONO % 5.9 % (3.8-10.2); NEUT % 67.5 % (42.8-82.8); PLATELET COUNT 121 K/MM3 (134-434); RBC 4.57 M/mm3 (3.60-5.2); RDW 16.8 % (11.6-15.6); WHITE BLOOD COUNT 10.3 K/mm3 (4.0-10.0)
[2018-04-19 11:38] LABS: ALBUMIN 2.1 g/dl (3.4-5.0); ALK PHOS 73 U/L (45-117); ANION GAP 3 MMOL/L (8-16); BILIRUBIN,TOTAL 0.5 mg/dL (0.2-1); BLOOD UREA NITROGEN 18 mg/dL (7-18); CALCIUM 7.7 mg/dL (8.5-10.1); CHLORIDE 105 mmol/L (98-107); CO2 32 mmol/L (21-32); GLUCOSE,RANDOM 145 mg/dL (74-106); MAGNESIUM 2.1 mg/dL (1.8-2.4); PHOSPHOROUS 3.4 mg/dL (2.5-4.9); POTASSIUM 4.2 mmol/L (3.5-5.1); SGOT/AST 17 U/L (15-37); SGPT/ALT 20 U/L (13-61); SODIUM 141 mmol/L (136-145); TOT PROT 5.5 g/dl (6.4-8.2)
[2018-04-19 12:46] LABS: URINE APPEARANCE CLEAR; URINE BILIRUBIN NEGATIVE (<2.0 mg/dL); URINE COLOR LTYELLOW; URINE GLUCOSE (UA) NEGATIVE (NEGATIVE); URINE KETONE NEGATIVE (NEGATIVE); URINE LEUK ESTERASE 3+ (NEGATIVE); URINE NITRITE NEGATIVE (NEGATIVE); URINE PROTEIN NEGATIVE (NEGATIVE); URINE UROBILINOGEN NEGATIVE mg/dL (0.2-1.0)
[2018-04-19 14:05] LABS: EPI CELLS RARE /HPF (FEW)
[2018-04-19] MEDS ORDERED: DEXTROSE 5%-WATER - 50 ML IVPB ONE (15:40)
[2018-04-19] MEDS ORDERED: PIPERACILLIN/TAZOBACTAM 3.375 GM VIAL IVPB ONE (15:40)
[2018-04-19] MEDS: PIPERACILLIN/TAZOB 3.375 GM 3.375 GM in DEXTROSE 5%-WATER - 50 ML IVPB SCH (15:46)
[2018-04-19] MEDS ORDERED: PT OWN MED DRAWER 7, Y5N ONE (16:13)
--- NOTE | 2018-04-19 16:31 | PN ---
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, Physician History of Present Illness: lethargic - Current Medication List Current Medications: Active Medications Calcium Carbonate/Cholecalciferol (Os-Carmelo 500+D -) 1 tab NGT DAILY [facility] Last Admin: 04/19/18 09:54 Dose: 1 tab Carbidopa/Levodopa (Sinemet 25/100 -) 2 each NGT TID [facility] Last Admin: 04/19/18 14:29 Dose: 2 each Piperacillin Sod/Tazobactam (Sod 3.375 gm/ Dextrose) 50 mls @ 100 mls/hr IVPB Q8H-IV [facility]; Protocol Last Admin: 04/19/18 15:46 Dose: 100 mls/hr Valsartan (Diovan -) 80 mg PO DAILY [facility] Last Admin: 04/19/18 09:54 Dose: 80 mg - Objective Vital Signs: Vital Signs Temperature 99.3 F 04/19/18 15:35 Pulse Rate 115 H 04/19/18 15:35 Respiratory Rate 19 04/19/18 15:35 Blood Pressure 106/75 04/19/18 15:35 O2 Sat by Pulse Oximetry (%) 96 04/19/18 09:06 Constitutional: Yes: Calm HENT: Yes: Atraumatic Neck: Yes: Supple Cardiovascular: Yes: Regular Rate and Rhythm Respiratory: Yes: Rhonchi Gastrointestinal: Yes: Normal Bowel Sounds Edema: No Peripheral Pulses WNL: Yes Neurological: Yes: Lethargy Labs: CBC, BMP 04/19/18 10:45 04/19/18 10:45 INR, PTT INR 1.18 (0.83-1.09) H 04/15/18 15:40 Problem List - Problems (1) Parkinson disease Assessment/Plan: on meds neuro on board Code(s): G20 - PARKINSON'S DISEASE (2) Sepsis Assessment/Plan: on iv abx new cxs sent on tube feeds Code(s): A41.9 - SEPSIS, UNSPECIFIED ORGANISM (3) Urinary tract infection Assessment/Plan: iv abx new cxs negative to date Code(s): N39.0 - URINARY TRACT INFECTION, SITE NOT SPECIFIED (4) Altered mental status Assessment/Plan: lethargic possibly due to sepsis Code(s): R41.82 - ALTERED MENTAL STATUS, UNSPECIFIED Qualifiers: Altered mental status type: disorientation Qualified Code(s): R41.0 - Disorientation, unspecified (5) Hypothermia Assessment/Plan: resolved Code(s): T68.XXXA - HYPOTHERMIA, INITIAL ENCOUNTER Qualifiers: Encounter type: subsequent encounter Qualified Code(s): T68.XXXD - Hypothermia, subsequent encounter (6) Rectal bleeding Assessment/Plan: resolved on tube feeds Code(s): K62.5 - HEMORRHAGE OF ANUS AND RECTUM
--- NOTE | 2018-04-19 16:51 | PN ---
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, Physician History of Present Illness: Pt seen and examined. Events, results reviewed. Pt with low grade fever, mild elevation in wbc. Remains lethargic. Off vasopressor. Family at bedside. - Current Medication List Current Medications: Active Medications Calcium Carbonate/Cholecalciferol (Os-Carmelo 500+D -) 1 tab NGT DAILY [facility] Last Admin: 04/19/18 09:54 Dose: 1 tab Carbidopa/Levodopa (Sinemet 25/100 -) 2 each NGT TID [facility] Last Admin: 04/19/18 14:29 Dose: 2 each Piperacillin Sod/Tazobactam (Sod 3.375 gm/ Dextrose) 50 mls @ 100 mls/hr IVPB Q8H-IV [facility]; Protocol Last Admin: 04/19/18 15:46 Dose: 100 mls/hr Valsartan (Diovan -) 80 mg PO DAILY [facility] Last Admin: 04/19/18 09:54 Dose: 80 mg - Objective Vital Signs: Vital Signs Temperature 99.3 F 04/19/18 15:35 Pulse Rate 115 H 04/19/18 15:35 Respiratory Rate 19 04/19/18 15:35 Blood Pressure 106/75 04/19/18 15:35 O2 Sat by Pulse Oximetry (%) 96 04/19/18 09:06 Constitutional: Yes: Other (lethargic) Cardiovascular: Yes: Regular Rate and Rhythm Respiratory: Yes: Rhonchi (b/l) Gastrointestinal: Yes: Normal Bowel Sounds, Soft Musculoskeletal: Yes: WNL Integumentary: Yes: WNL Neurological: Yes: Other (lethargic) Labs: CBC, BMP 04/19/18 10:45 04/19/18 10:45 INR, PTT INR 1.18 (0.83-1.09) H 04/15/18 15:40 Microbiology 04/14/18 08:10 Blood - Peripheral Venous Blood Culture - Final NO GROWTH AFTER 5 DAYS INCUBATION 04/14/18 08:30 Blood - Peripheral Venous Blood Culture - Final NO GROWTH AFTER 5 DAYS INCUBATION 04/13/18 16:58 Blood - Peripheral Venous Blood Culture - Final Staphylococcus Epidermidis 04/13/18 18:39 Urine - Urine - Catheterized Urine Culture - Final Proteus Mirabilis 04/13/18 16:58 Blood - Peripheral Venous Blood Culture - Final Staphylococcus Epidermidis 04/14/18 11:50 Stool Clostridium difficile Antigen (ANNA) - Final 04/14/18 11:50 Stool Clostridium difficile Toxin Assay - Final - ....Imaging X-ray: Report Reviewed Problem List - Problems (1) Parkinson disease Code(s): G20 - PARKINSON'S DISEASE (2) Sepsis Code(s): A41.9 - SEPSIS, UNSPECIFIED ORGANISM (3) Urinary tract infection Code(s): N39.0 - URINARY TRACT INFECTION, SITE NOT SPECIFIED (4) Acute hypoxemic respiratory failure Code(s): J96.01 - ACUTE RESPIRATORY FAILURE WITH HYPOXIA (5) Altered mental status Code(s): R41.82 - ALTERED MENTAL STATUS, UNSPECIFIED Qualifiers: Altered mental status type: disorientation Qualified Code(s): R41.0 - Disorientation, unspecified Assessment/Plan Septic Shock - resolved s/p Acute Hypoxic Respiratory Failure UTI Fever r/o Pneumonia Parkinsons Disease CAD CKD -- fever noted, remains lethargic -- off vasopressors -- antibiotics restarted, monitor vitals/temp curve closely -- f/u repeat blood culture results -- aspiration precautions cc: 40 min
[2018-04-19 21:43] LABS: PLATELET ESTIMATE SLT DECREASE
[2018-04-19 21:44] LABS: ANISOCYTOSIS 1+
[2018-04-20] MEDS ORDERED: DEXTROSE 5%-WATER - 50 ML IVPB ONE ×2 (02:22→09:42)
[2018-04-20] MEDS ORDERED: PIPERACILLIN/TAZOBACTAM 3.375 GM VIAL IVPB ONE ×2 (02:22→09:42)
[2018-04-20] MEDS: PIPERACILLIN/TAZOB 3.375 GM 3.375 GM in DEXTROSE 5%-WATER - 50 ML IVPB SCH ×3 (02:31→18:17)
[2018-04-20 05:53] LABS: BASO % 1.2 % (0-2.0); EOS % 0.5 % (0-4.5); HEMATOCRIT 32.4 % (32.4-45.2); HEMOGLOBIN 9.9 GM/dL (10.7-15.3); LYMPH % 22.1 % (8-40); MCH 21.2 pg (25.7-33.7); MCHC 30.5 g/dl (32.0-36.0); MEAN CELL VOLUME 69.5 fl (80-96); MONO % 3.2 % (3.8-10.2); RBC 4.66 M/mm3 (3.60-5.2); RDW 16.6 % (11.6-15.6); WHITE BLOOD COUNT 15.4 K/mm3 (4.0-10.0)
[2018-04-20] MEDS: CARBIDOPA/LEVODOPA 25/100 TABLET (FP) NGT SCH ×3 (06:28→21:51)
[2018-04-20 06:37] LABS: ALBUMIN 2.1 g/dl (3.4-5.0); ALK PHOS 68 U/L (45-117); ANION GAP 4 MMOL/L (8-16); BILIRUBIN,TOTAL 0.4 mg/dL (0.2-1); BLOOD UREA NITROGEN 20 mg/dL (7-18); CALCIUM 7.7 mg/dL (8.5-10.1); CHLORIDE 106 mmol/L (98-107); CO2 31 mmol/L (21-32); CREATININE 1.1 mg/dL (0.55-1.3); GLUCOSE,RANDOM 88 mg/dL (74-106); MAGNESIUM 2.2 mg/dL (1.8-2.4); PHOSPHOROUS 4.2 mg/dL (2.5-4.9); POTASSIUM 4.8 mmol/L (3.5-5.1); SGOT/AST 36 U/L (15-37); SGPT/ALT 8 U/L (13-61); SODIUM 142 mmol/L (136-145); TOT PROT 5.6 g/dl (6.4-8.2)
--- NOTE | 2018-04-20 07:49 | PN ---
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 (short form) - Note 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: Chief Complaint: Events noted, notes reviewed, lethargic, afebrile this AM, no acute distress, sinus rhythm is noted History of Present Illness: Seen and examined in the ICU. Events noted, notes reviewed, lethargic, afebrile this AM, no acute distress, sinus rhythm is noted Echocardiography dated 07/02/2017 revealed normal LV size and function with diastolic LV dysfunction - Current Medication List Current Medications Calcium Carbonate/Cholecalciferol (Os-Carmelo 500+D -) 1 tab NGT DAILY [facility] Last Admin: 04/19/18 09:54 Dose: 1 tab Carbidopa/Levodopa (Sinemet 25/100 -) 2 each NGT TID [facility] Last Admin: 04/20/18 06:28 Dose: 2 each Piperacillin Sod/Tazobactam (Sod 3.375 gm/ Dextrose) 50 mls @ 100 mls/hr IVPB Q8H-IV [facility]; Protocol Last Admin: 04/20/18 02:31 Dose: 100 mls/hr Valsartan (Diovan -) 80 mg PO DAILY [facility] Last Admin: 04/19/18 09:54 Dose: 80 mg Review of Systems Unable to obtain - Objective Vital Signs: Last Vital Signs Temp Pulse Resp BP Pulse Ox 99.0 F 74 14 102/64 97 04/20/18 06:00 04/20/18 06:00 04/20/18 04:00 04/20/18 06:00 04/19/18 20:20 Intake & Output 04/17/18 04/18/18 04/19/18 04/20/18 23:59 23:59 23:59 23:59 Intake Total 420 1580 930 Output Total 600 2100 300 Balance -180 -520 630 Weight 140 lb 14.006 oz 143 lb 15.39 oz 139 lb 15.896 oz 142 lb Neck: Supple Negative JVD No Bruit Cardiovascular: S1 S2 Regular Rate and Rhythm Chest: Scattered Course Rhonchi Bilaterally Gastrointestinal: Soft Benign Normal Bowel Sounds Ext: Trace Edema Labs: CBC, BMP 04/20/18 05:30 04/20/18 05:30 Assessment/Plan ASSESSMENT: 1. Acute hypoxic respiratory failure/resolved, with underlying chronic lung disease, probable pneumonia with sepsis syndrome, recurrent fever 2. CAD angina pectoris 3. Diastolic LV dysfunction with clinical class 0-I NYHA classification LV failure, compensated/euvolemic 4. Hypertension, resolved hypotension related to the above noted sepsis syndrome off of pressors/Dopamine 5. Parkinson's disease/dementia, with altered mental status related to probable sepsis syndrome 6. Bradycardia (cannot exclude underlying sinus node dysfunction) and hypothermia since resolved, related to sepsis syndrome 7. CKD 8. UTI/sepsis syndrome, resolved 9. Sacral decubitus 10. Hypernatremia, resolved 11. Anemia/thrombocytopenia PLAN: 1. Continue Diovan 2. As outlined in prior notes avoid B-Blockers related to the above noted bradycardia (cannot exclude underlying sinus node dysfunction) 3. Antibiotics as per the primary team/ID team 4. As outlined in prior notes may be transferred to floor care from the cardiovascular point of view Palmira Pratt MD
[2018-04-20 08:38] LABS: MEAN PLT VOLUME 9.2 fl (7.5-11.1); PLATELET COUNT 142 K/MM3 (134-434)
--- NOTE | 2018-04-20 08:52 | PN ---
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, Physician History of Present Illness: 1. Acute hypoxic respiratory failure/resolved, with underlying chronic lung disease, probable pneumonia with sepsis syndrome, recurrent fever 2. CAD angina pectoris 3. Diastolic LV dysfunction with clinical class 0-I NYHA classification LV failure, compensated/euvolemic 4. Hypertension, resolved hypotension related to the above noted sepsis syndrome off of pressors/Dopamine 5. Parkinson's disease/dementia, with altered mental status related to probable sepsis syndrome 6. Bradycardia (cannot exclude underlying sinus node dysfunction) and hypothermia since resolved, related to sepsis syndrome 7. CKD I saw and examined the pt at the bedside; lying down comfortable, open her eyes to call; R gaze preference ., no active sz. PE: NAD PERRLA, no face droop, R gaze preference Moves exts R Toe upgoing A/P: ? Nonconvulsive status vs ischemia vs met/inf encephalopathy MRI/A brain wo EEG routine c/w Sinemet Health maintenance per primary team. Thank you. Blake Noonan MD - Current Medication List Current Medications: Active Medications Calcium Carbonate/Cholecalciferol (Os-Carmelo 500+D -) 1 tab NGT DAILY [facility] Last Admin: 04/19/18 09:54 Dose: 1 tab Carbidopa/Levodopa (Sinemet 25/100 -) 2 each NGT TID [facility] Last Admin: 04/20/18 06:28 Dose: 2 each Piperacillin Sod/Tazobactam (Sod 3.375 gm/ Dextrose) 50 mls @ 100 mls/hr IVPB Q8H-IV [facility]; Protocol Last Admin: 04/20/18 02:31 Dose: 100 mls/hr Valsartan (Diovan -) 80 mg PO DAILY [facility] Last Admin: 04/19/18 09:54 Dose: 80 mg - Objective Vital Signs: Vital Signs Temperature 99.0 F 04/20/18 06:00 Pulse Rate 62 04/20/18 07:47 Respiratory Rate 14 04/20/18 07:47 Blood Pressure 102/60 04/20/18 07:47 O2 Sat by Pulse Oximetry (%) 97 04/19/18 20:20 Labs: CBC, BMP 04/20/18 05:30 04/20/18 05:30 INR, PTT INR 1.18 (0.83-1.09) H 04/15/18 15:40
[2018-04-20] MEDS: CALCIUM 500MG/VIT-D 200 UNITS COMBO TABLET (FP) NGT SCH (09:44)
[2018-04-20] MEDS: VALSARTAN 80 MG TABLET (UD) PO SCH (09:44)
--- NOTE | 2018-04-20 11:14 | PN ---
Teaching Attending Note Name of Resident: Eliana Aquino ATTENDING PHYSICIAN STATEMENT I saw and evaluated the patient. I reviewed the resident's note and discussed the case with the resident. I agree with the resident's findings and plan as documented. SUBJECTIVE: Pt seen and examined in the ICU. Remains lethargic. No fevers recorded. OBJECTIVE: Vital Signs Period Temp Pulse Resp BP Sys/Campbell Pulse Ox Last 24 Hr 98.6 F-99.6 F 62-115 13-22 102-129/59-80 97-100 Intake & Output 04/17/18 04/18/18 04/19/18 04/20/18 23:59 23:59 23:59 23:59 Intake Total 420 1580 930 Output Total 600 2100 300 Balance -180 -520 630 Weight 63.9 kg 65.3 kg 63.5 kg 64.41 kg Gen: lethargic Heart: RRR Lung: decreased breath sounds at the bases Abd: soft, nontender Ext: no edema CBC, BMP 04/20/18 05:30 04/20/18 05:30 Active Medications Calcium Carbonate/Cholecalciferol (Os-Carmelo 500+D -) 1 tab NGT DAILY [facility] Last Admin: 04/20/18 09:44 Dose: 1 tab Carbidopa/Levodopa (Sinemet 25/100 -) 2 each NGT TID [facility] Last Admin: 04/20/18 06:28 Dose: 2 each Piperacillin Sod/Tazobactam (Sod 3.375 gm/ Dextrose) 50 mls @ 100 mls/hr IVPB Q8H-IV [facility]; Protocol Last Admin: 04/20/18 09:44 Dose: 100 mls/hr Valsartan (Diovan -) 80 mg PO DAILY [facility] Last Admin: 04/20/18 09:44 Dose: 80 mg ASSESSMENT AND PLAN: s/p Acute Hypoxic Respiratory Failure UTI Staph Bacteremia Septic Shock resolved Bradycardia improved CAD LV Diastolic Dysfunction CKD Thrombocytopenia Parkinsons Disease - monitoring off antibiotics - f/u repeat cultures - O2 to keep SpO2 >90% - off dopamine gtt - aspiration precautions - neuro f/u - DVT prophylaxis - can monitor on floor
--- NOTE | 2018-04-20 11:28 | PN ---
Physical Exam: SUBJECTIVE: Patient seen and examined. Still lethargic. Not following commands. No events overnight. OBJECTIVE: Vital Signs Period Temp Pulse Resp BP Sys/Campbell Pulse Ox Last 24 Hr 98.6 F-99.6 F 62-115 13-22 102-129/59-80 97-100 GENERAL: Lethargic. Grimaces to pain. HEENT: AT/NC. Drooling. NG tube in place. NECK: Supple LAD/JVD. LUNGS: CTA B/L. No wheezes noted. Symmetric chest rise. HEART: RRR. Normal S1, S2. No murmurs noted. ABDOMEN: Soft, NT/ND. +BS in all 4Qs. MUSCULOSKELETAL: Normal range of motion at all joints. No bony deformities or tenderness. No CVA tenderness. EXTREMITIES: No peripheral edema noted. 2+ pedal pulses. NEUROLOGICAL: Less alert today. Grimaces to pain. SKIN: Multiple scattered superficial decubitus ulcers, non bleeding, non- erythematous, non-infected. Laboratory Results - last 24 hr 04/19/18 04/19/18 04/19/18 09:00 10:45 10:45 WBC 10.3 H RBC 4.57 Hgb 9.8 L Hct 31.7 L MCV 69.4 L MCH 21.5 L MCHC 31.0 L RDW 16.8 H Plt Count 121 L MPV 8.6 Absolute Neuts (auto) 7.0 Neutrophils % 67.5 Lymphocytes % 25.8 D Monocytes % 5.9 Eosinophils % 0.3 Basophils % 0.5 Nucleated RBC % 0 Hypochromia 2+ Platelet Estimate Slt decrease Platelet Comment No clumping noted Anisocytosis 1+ Microcytosis 1+ Sodium 141 Potassium 4.2 Chloride 105 Carbon Dioxide 32 Anion Gap 3 L BUN 18 Creatinine 1.0 Creat Clearance w eGFR 53.35 Random Glucose 145 H Calcium 7.7 L Phosphorus 3.4 Magnesium 2.1 Total Bilirubin 0.5 AST 17 ALT 20 Alkaline Phosphatase 73 Total Protein 5.5 L Albumin 2.1 L Urine Color Ltyellow Urine Appearance Clear Urine pH 7.0 D Ur Specific Friendship 1.006 L Urine Protein Negative Urine Glucose (UA) Negative Urine Ketones Negative Urine Blood Negative Urine Nitrite Negative Urine Bilirubin Negative Urine Urobilinogen Negative Ur Leukocyte Esterase 3+ H Urine WBC (Auto) 36 Urine RBC (Auto) 2 Ur Epithelial Cells Rare 04/20/18 04/20/18 05:30 05:30 WBC 15.4 H RBC 4.66 Hgb 9.9 L Hct 32.4 MCV 69.5 L MCH 21.2 L MCHC 30.5 L RDW 16.6 H Plt Count 142 MPV 9.2 Absolute Neuts (auto) 11.3 H Neutrophils % 73.0 Lymphocytes % 22.1 Monocytes % 3.2 L Eosinophils % 0.5 Basophils % 1.2 Nucleated RBC % 0 Hypochromia Platelet Estimate Platelet Comment Anisocytosis Microcytosis Sodium 142 Potassium 4.8 Chloride 106 Carbon Dioxide 31 Anion Gap 4 L BUN 20 H Creatinine 1.1 Creat Clearance w eGFR 47.79 Random Glucose 88 Calcium 7.7 L Phosphorus 4.2 Magnesium 2.2 Total Bilirubin 0.4 AST 36 ALT 8 L Alkaline Phosphatase 68 Total Protein 5.6 L Albumin 2.1 L Urine Color Urine Appearance Urine pH Ur Specific Friendship Urine Protein Urine Glucose (UA) Urine Ketones Urine Blood Urine Nitrite Urine Bilirubin Urine Urobilinogen Ur Leukocyte Esterase Urine WBC (Auto) Urine RBC (Auto) Ur Epithelial Cells Active Medications Generic Name Dose Route Start Last Admin Trade Name Freq PRN Reason Stop Dose Admin Calcium Carbonate/Cholecalciferol 1 tab 04/15/18 10:00 04/20/18 09:44 Os-Carmelo 500+D - NGT 1 tab DAILY [facility] Administration Carbidopa/Levodopa 2 each 04/15/18 06:00 04/20/18 06:28 Sinemet 25/100 - NGT 2 each TID [facility] Administration Piperacillin Sod/Tazobactam 50 mls @ 100 mls/hr 04/19/18 16:00 04/20/18 09:44 Sod 3.375 gm/ Dextrose IVPB 100 mls/hr Q8H-IV [facility] Administration Protocol Valsartan 80 mg 04/18/18 10:00 04/20/18 09:44 Diovan - PO 80 mg DAILY [facility] Administration ASSESSMENT/PLAN: 78 y/o female with PMH of parkinsons, dementia, HTN presents with weakness, lethargy, AMS presented to the ICU with septic shock 2/2 UTI. Neurology #Acute Metabolic Encephalopathy -Altered mental status of unknown etiology as pt was previously conversant per daughter. -likely 2/2 UTI, blood cx also + for staph epi. -Neuro checks #Parkinson's Dementia -Per neuro: c/w Sinemet -hold home PO meds as pt not safe to michaela PO due to minimal arousability Pulmonary -satting 100% on RA -cont to monitor SpO2 Cardiovascular #Hypotension 2/2 Septic shock due to UTI/bacteremia -BP stable, cont to monitor off pressors -Per cardio: Valsartan 80 mg PO QD, may be transferred out of ICU from CV standpoint -Maintain MAP >65 GI -Per GI, PPI not needed at this time. ID #Septic shock 2/2 UTI/PNA/Diffuse colitis -Febrile this AM at 100.6; Tylenol given, repeat BCx, U/A, CXR ordered due to concern of aspiration as pt has poor swallow, persistently drooling. ID made aware, will cont to monitor, no Abx indicated at this time. -Per ID, Zosyn dc'd; BCx neg x96 hrs FEN -no IVf needed -recheck lytes in AM -Tube Feeds helds per family request Lines -NGT -remove stokes Dispo -ok with cardio to transfer to Med-surge Visit type - Emergency Visit Emergency Visit: Yes ED Registration Date: 04/13/18 Care time: The patient presented to the Emergency Department on the above date and was hospitalized for further evaluation of their emergent condition. - New Patient This patient is new to me today: No - Critical Care Critical Care patient: Yes Total Critical Care Time (in minutes): 35 Critical Care Statement: The care of this patient involved high complexity decision making to prevent further life threatening deterioration of the patient 's condition and/or to evaluate & treat vital organ system(s) failure or risk of failure.
--- NOTE | 2018-04-20 14:35 | PN ---
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, Physician History of Present Illness: stable no new issues - Current Medication List Current Medications: Active Medications Calcium Carbonate/Cholecalciferol (Os-Carmelo 500+D -) 1 tab NGT DAILY [facility] Last Admin: 04/20/18 09:44 Dose: 1 tab Carbidopa/Levodopa (Sinemet 25/100 -) 2 each NGT TID [facility] Last Admin: 04/20/18 13:04 Dose: 2 each Piperacillin Sod/Tazobactam (Sod 3.375 gm/ Dextrose) 50 mls @ 100 mls/hr IVPB Q8H-IV [facility]; Protocol Last Admin: 04/20/18 09:44 Dose: 100 mls/hr Valsartan (Diovan -) 80 mg PO DAILY [facility] Last Admin: 04/20/18 09:44 Dose: 80 mg - Objective Vital Signs: Vital Signs Temperature 98.6 F 04/20/18 09:47 Pulse Rate 58 L 04/20/18 14:00 Respiratory Rate 16 04/20/18 14:00 Blood Pressure 103/57 L 04/20/18 14:00 O2 Sat by Pulse Oximetry (%) 100 04/20/18 09:00 Constitutional: Yes: No Distress, Calm Gastrointestinal: Yes: Normal Bowel Sounds, Soft, Other (ng tube in place) Musculoskeletal: Yes: WNL Extremities: Yes: WNL Neurological: Yes: Alert, Other Labs: CBC, BMP 04/20/18 05:30 04/20/18 05:30 INR, PTT INR 1.18 (0.83-1.09) H 04/15/18 15:40 Assessment/Plan Sepsis due to UTI / PNA / Colitis Metabolic Encephalopathy Bradycardia Diarrhea GI Bleed Anemia HTN Sacral decubitus ulcer Parkinson's sepsis lethargy weakness hypothermia uti plan continue as per icu neurology continue abx nutrition rest as per the team as per gi cc 35 min
--- NOTE | 2018-04-20 20:00 | PN ---
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, Physician History of Present Illness: stable - Current Medication List Current Medications: Active Medications Calcium Carbonate/Cholecalciferol (Os-Carmeol 500+D -) 1 tab NGT DAILY VASYL Last Admin: 04/20/18 09:44 Dose: 1 tab Carbidopa/Levodopa (Sinemet -) 2 each NGT TID VASYL Last Admin: 04/20/18 13:04 Dose: 2 each Piperacillin Sod/Tazobactam (Sod 3.375 gm/ Dextrose) 50 mls @ 100 mls/hr IVPB Q8H-IV VASYL; Protocol Last Admin: 04/20/18 18:17 Dose: 100 mls/hr Valsartan (Diovan -) 80 mg PO DAILY VASYL Last Admin: 04/20/18 09:44 Dose: 80 mg - Objective Vital Signs: Vital Signs Temperature 98.0 F 04/20/18 17:49 Pulse Rate 57 L 04/20/18 17:49 Respiratory Rate 14 04/20/18 17:49 Blood Pressure 134/92 04/20/18 17:49 O2 Sat by Pulse Oximetry (%) 100 04/20/18 16:00 Constitutional: Yes: No Distress HENT: Yes: Atraumatic Neck: Yes: Supple Cardiovascular: Yes: Regular Rate and Rhythm Respiratory: Yes: CTA Bilaterally Gastrointestinal: Yes: Normal Bowel Sounds Extremities: Yes: WNL Edema: No Peripheral Pulses WNL: Yes Neurological: Yes: Alert, Oriented Labs: CBC, BMP 04/20/18 05:30 04/20/18 05:30 INR, PTT INR 1.18 (0.83-1.09) H 04/15/18 15:40 Problem List - Problems (1) Parkinson disease Assessment/Plan: on meds neuro on board Code(s): G20 - PARKINSON'S DISEASE (2) Sepsis Assessment/Plan: on iv abx off of pressors iv fluids..off on tube feeds Code(s): A41.9 - SEPSIS, UNSPECIFIED ORGANISM (3) Urinary tract infection Assessment/Plan: iv abx new cxs negative to date Code(s): N39.0 - URINARY TRACT INFECTION, SITE NOT SPECIFIED (4) Altered mental status Code(s): R41.82 - ALTERED MENTAL STATUS, UNSPECIFIED Qualifiers: Altered mental status type: disorientation Qualified Code(s): R41.0 - Disorientation, unspecified (5) Hypothermia Assessment/Plan: resolved Code(s): T68.XXXA - HYPOTHERMIA, INITIAL ENCOUNTER Qualifiers: Encounter type: subsequent encounter Qualified Code(s): T68.XXXD - Hypothermia, subsequent encounter (6) Rectal bleeding Assessment/Plan: resolved on tube feeds Code(s): K62.5 - HEMORRHAGE OF ANUS AND RECTUM (7) HTN (hypertension) Assessment/Plan: bp stable Code(s): I10 - ESSENTIAL (PRIMARY) HYPERTENSION Qualifiers: Hypertension type: essential hypertension Qualified Code(s): I10 - Essential (primary) hypertension Assessment/Plan icu 35 min
[2018-04-21] MEDS ORDERED: PIPERACILLIN/TAZOBACTAM 3.375 GM VIAL IVPB ONE ×3 (01:21→18:18)
[2018-04-21] MEDS ORDERED: DEXTROSE 5%-WATER - 50 ML IVPB ONE ×3 (01:21→18:18)
[2018-04-21] MEDS: PIPERACILLIN/TAZOB 3.375 GM 3.375 GM in DEXTROSE 5%-WATER - 50 ML IVPB SCH ×3 (01:41→20:15)
[2018-04-21] MEDS: CARBIDOPA/LEVODOPA 25/100 TABLET (FP) NGT SCH ×3 (07:00→21:07)
--- NOTE | 2018-04-21 07:32 | PN ---
Physical Exam: SUBJECTIVE: Patient seen and examined at bedside. No acute events overnight. Pt still at same mental since admission. OBJECTIVE: Vital Signs Period Temp Pulse Resp BP Sys/Campbell Pulse Ox Last 24 Hr 97.5 F-98.6 F 55-108 13-23 102-161/57-92 98-100 GENERAL: Sleeping. Minimal response to stimuli. Grimaces to pain. HEENT: AT/NC. Drooling. NG tube in place. NECK: Supple LAD/JVD. LUNGS: CTA B/L. No wheezes noted. Symmetric chest rise. HEART: RRR. Normal S1, S2. No murmurs noted. ABDOMEN: Soft, NT/ND. +BS in all 4Qs. MUSCULOSKELETAL: Normal range of motion at all joints. No bony deformities or tenderness. No CVA tenderness. EXTREMITIES: No peripheral edema noted. 2+ pedal pulses. NEUROLOGICAL: Less alert today. Grimaces to pain. SKIN: Multiple scattered superficial decubitus ulcers, non bleeding, non- erythematous, non-infected. Laboratory Results - last 24 hr 04/20/18 04/20/18 05:30 16:05 Plt Count 142 MPV 9.2 Lactic Acid 1.0 Active Medications Generic Name Dose Route Start Last Admin Trade Name Freq PRN Reason Stop Dose Admin Calcium Carbonate/Cholecalciferol 1 tab 04/15/18 10:00 04/20/18 09:44 Os-Carmelo 500+D - NGT 1 tab DAILY VASYL Administration Carbidopa/Levodopa 2 each 04/15/18 06:00 04/21/18 07:00 Sinemet 25/100 - NGT 2 each TID VASYL Administration Piperacillin Sod/Tazobactam 50 mls @ 100 mls/hr 04/19/18 16:00 04/21/18 01:41 Sod 3.375 gm/ Dextrose IVPB 100 mls/hr Q8H-IV VASYL Administration Protocol Valsartan 80 mg 04/18/18 10:00 04/20/18 09:44 Diovan - PO 80 mg DAILY VASYL Administration ASSESSMENT/PLAN: 78 y/o female with PMH of parkinsons, dementia, HTN presents with weakness, lethargy, AMS presented to the ICU with septic shock 2/2 UTI. Neurology #Acute Metabolic Encephalopathy -Altered mental status of unknown etiology as pt was previously conversant per daughter. -likely 2/2 UTI, blood cx also + for staph epi. -Neuro checks -Per neuro: brain MRI ordered. #Parkinson's Dementia -Per neuro: c/w Sinemet Pulmonary -satting 100% on RA -cont to monitor SpO2 Cardiovascular #Hypotension 2/2 Septic shock due to UTI/bacteremia -BP stable, cont to monitor off pressors -Per cardio: Valsartan 80 mg PO QD, may be transferred out of ICU from CV standpoint -Maintain MAP >65 GI -Per GI, PPI not needed at this time. ID #Septic shock 2/2 UTI/Diffuse colitis -Afebrile overnight; BCx neg x24hrs, U/A showed 3+ LE and 36 WBC; lac 1.0 -CXR: No acute chest process seen. -Per ID, cont Zosyn 3.375 gm; BCx neg (04/14), BCx neg x48hrs (04/19) FEN -no IVf needed -recheck lytes in AM -cont tube feeds per motor vehicle license clerk recs Lines -NGT Dispo -transfer to med-surg pending Visit type - Emergency Visit Emergency Visit: Yes ED Registration Date: 04/13/18 Care time: The patient presented to the Emergency Department on the above date and was hospitalized for further evaluation of their emergent condition. - New Patient This patient is new to me today: No - Critical Care Critical Care patient: Yes Total Critical Care Time (in minutes): 37 Critical Care Statement: The care of this patient involved high complexity decision making to prevent further life threatening deterioration of the patient 's condition and/or to evaluate & treat vital organ system(s) failure or risk of failure.
[2018-04-21 08:00] LABS: BASO % 1.6 % (0-2.0); EOS % 0.7 % (0-4.5); HEMATOCRIT 33.8 % (32.4-45.2); HEMOGLOBIN 10.6 GM/dL (10.7-15.3); LYMPH % 25.1 % (8-40); MCH 21.9 pg (25.7-33.7); MCHC 31.5 g/dl (32.0-36.0); MEAN CELL VOLUME 69.6 fl (80-96); MEAN PLT VOLUME 8.7 fl (7.5-11.1); MONO % 5.1 % (3.8-10.2); NEUT % 67.5 % (42.8-82.8); PLATELET COUNT 185 K/MM3 (134-434); RBC 4.86 M/mm3 (3.60-5.2); RDW 16.5 % (11.6-15.6)
[2018-04-21 08:44] LABS: ALBUMIN 2.6 g/dl (3.4-5.0); ALK PHOS 88 U/L (45-117); ANION GAP 7 MMOL/L (8-16); BILIRUBIN,TOTAL 0.6 mg/dL (0.2-1); BLOOD UREA NITROGEN 19 mg/dL (7-18); CALCIUM 8.6 mg/dL (8.5-10.1); CHLORIDE 103 mmol/L (98-107); CO2 29 mmol/L (21-32); GLUCOSE,RANDOM 89 mg/dL (74-106); MAGNESIUM 2.4 mg/dL (1.8-2.4); POTASSIUM 4.2 mmol/L (3.5-5.1); SGOT/AST 34 U/L (15-37); SGPT/ALT 8 U/L (13-61); SODIUM 138 mmol/L (136-145); TOT PROT 6.8 g/dl (6.4-8.2)
[2018-04-21] MEDS: CALCIUM 500MG/VIT-D 200 UNITS COMBO TABLET (FP) NGT SCH (09:51)
[2018-04-21] MEDS: VALSARTAN 80 MG TABLET (UD) PO SCH (09:51)
--- NOTE | 2018-04-21 11:27 | PN ---
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, Physician History of Present Illness: patient looking much better wbc trending down comfortable work up negative so far - Current Medication List Current Medications: Active Medications Calcium Carbonate/Cholecalciferol (Os-Carmelo 500+D -) 1 tab NGT DAILY VASYL Last Admin: 04/21/18 09:51 Dose: 1 tab Carbidopa/Levodopa (Sinemet 25/100 -) 2 each NGT TID VASYL Last Admin: 04/21/18 07:00 Dose: 2 each Piperacillin Sod/Tazobactam (Sod 3.375 gm/ Dextrose) 50 mls @ 100 mls/hr IVPB Q8H-IV VASYL; Protocol Last Admin: 04/21/18 09:52 Dose: 100 mls/hr Valsartan (Diovan -) 80 mg PO DAILY VASYL Last Admin: 04/21/18 09:51 Dose: 80 mg - Objective Vital Signs: Vital Signs Temperature 98.2 F 04/21/18 10:00 Pulse Rate 64 04/21/18 10:00 Respiratory Rate 18 04/21/18 10:00 Blood Pressure 110/70 04/21/18 10:00 O2 Sat by Pulse Oximetry (%) 99 04/21/18 09:00 Constitutional: Yes: No Distress, Calm Cardiovascular: Yes: S1, S2 Respiratory: Yes: Regular, CTA Bilaterally Gastrointestinal: Yes: Normal Bowel Sounds, Soft, Other (ng tube in place) Musculoskeletal: Yes: WNL Extremities: Yes: WNL Neurological: Yes: Other (lethargic) Psychiatric: Yes: Other Labs: CBC, BMP 04/21/18 07:50 04/21/18 07:50 INR, PTT INR 1.18 (0.83-1.09) H 04/15/18 15:40 Assessment/Plan Sepsis due to UTI / PNA / Colitis Metabolic Encephalopathy Bradycardia Diarrhea GI Bleed Anemia HTN Sacral decubitus ulcer Parkinson's sepsis lethargy weakness hypothermia uti plan continue as per icu neurology continue abx monitor wbc all cx results noted nutrition rest as per the team as per gi cc 35 min
--- NOTE | 2018-04-21 13:11 | PN ---
Teaching Attending Note Name of Resident: Yajaira Dillard ATTENDING PHYSICIAN STATEMENT I saw and evaluated the patient. I reviewed the resident's note and discussed the case with the resident. I agree with the resident's findings and plan as documented. SUBJECTIVE: Pt seen and examined in the ICU. Mental status unchanged. No fevers recorded. OBJECTIVE: Vital Signs Period Temp Pulse Resp BP Sys/Campbell Pulse Ox Last 24 Hr 97.5 F-98.6 F 55-108 12-27 103-164/57-92 98-100 Intake & Output 04/18/18 04/19/18 04/20/18 04/21/18 23:59 23:59 23:59 23:59 Intake Total 1580 930 500 100 Output Total 2100 300 150 Balance -520 630 350 100 Weight 65.3 kg 63.5 kg 64.41 kg 63.4 kg Gen: lethargic, breathing nonlabored Heart: RRR Lung: scattered rhonchi Abd: soft, nontender Ext: no edema CBC, BMP 04/21/18 07:50 04/21/18 07:50 Active Medications Calcium Carbonate/Cholecalciferol (Os-Carmelo 500+D -) 1 tab NGT DAILY VASYL Last Admin: 04/21/18 09:51 Dose: 1 tab Carbidopa/Levodopa (Sinemet 25/100 -) 2 each NGT TID VASYL Last Admin: 04/21/18 07:00 Dose: 2 each Piperacillin Sod/Tazobactam (Sod 3.375 gm/ Dextrose) 50 mls @ 100 mls/hr IVPB Q8H-IV VASYL; Protocol Last Admin: 04/21/18 09:52 Dose: 100 mls/hr Valsartan (Diovan -) 80 mg PO DAILY VASYL Last Admin: 04/21/18 09:51 Dose: 80 mg ASSESSMENT AND PLAN: s/p Acute Hypoxic Respiratory Failure UTI Staph Bacteremia Septic Shock resolved Bradycardia improved CAD LV Diastolic Dysfunction CKD Thrombocytopenia Parkinsons Disease - monitoring off antibiotics - f/u repeat cultures - O2 to keep SpO2 >90% - off dopamine gtt - aspiration precautions - neuro f/u - DVT prophylaxis - can monitor on floor
--- NOTE | 2018-04-21 14:39 | PN ---
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, Physician History of Present Illness: More interactive. - Current Medication List Current Medications: Active Medications Calcium Carbonate/Cholecalciferol (Os-Carmelo 500+D -) 1 tab NGT DAILY VASYL Last Admin: 04/21/18 09:51 Dose: 1 tab Carbidopa/Levodopa (Sinemet 25/100 -) 2 each NGT TID VASYL Last Admin: 04/21/18 14:19 Dose: 2 each Piperacillin Sod/Tazobactam (Sod 3.375 gm/ Dextrose) 50 mls @ 100 mls/hr IVPB Q8H-IV VASYL; Protocol Last Admin: 04/21/18 09:52 Dose: 100 mls/hr Valsartan (Diovan -) 80 mg PO DAILY VASYL Last Admin: 04/21/18 09:51 Dose: 80 mg - Objective Vital Signs: Vital Signs Temperature 98.2 F 04/21/18 10:00 Pulse Rate 76 04/21/18 14:00 Respiratory Rate 14 04/21/18 14:00 Blood Pressure 134/81 04/21/18 14:00 O2 Sat by Pulse Oximetry (%) 99 04/21/18 09:00 Constitutional: Yes: No Distress, Calm, Thin Neck: Yes: Supple Cardiovascular: Yes: Regular Rate and Rhythm Respiratory: Yes: Regular, Diminished Gastrointestinal: Yes: Soft, Hypoactive Bowel Sounds Edema: No Labs: CBC, BMP 04/21/18 07:50 04/21/18 07:50 INR, PTT INR 1.18 (0.83-1.09) H 04/15/18 15:40 Problem List - Problems (1) Parkinson disease Code(s): G20 - PARKINSON'S DISEASE (2) Acute hypoxemic respiratory failure Code(s): J96.01 - ACUTE RESPIRATORY FAILURE WITH HYPOXIA (3) Altered mental status Code(s): R41.82 - ALTERED MENTAL STATUS, UNSPECIFIED Qualifiers: Altered mental status type: disorientation Qualified Code(s): R41.0 - Disorientation, unspecified (4) Bradycardia Code(s): R00.1 - BRADYCARDIA, UNSPECIFIED (5) E. coli UTI Code(s): N39.0 - URINARY TRACT INFECTION, SITE NOT SPECIFIED; B96.20 - UNSP ESCHERICHIA COLI THE CAUSE OF DISEASES CLASSD ELSR (6) Hypothermia Code(s): T68.XXXA - HYPOTHERMIA, INITIAL ENCOUNTER Qualifiers: Encounter type: subsequent encounter Qualified Code(s): T68.XXXD - Hypothermia, subsequent encounter Assessment/Plan Echocardiography dated 07/02/2017 revealed normal LV size and function with diastolic LV dysfunction 1. s/p acute hypoxic respiratory failure, with underlying chronic lung disease, probable pneumonia with staph sepsis syndrome resolved 2. CAD angina pectoris 3. Diastolic LV dysfunction with clinical class 0-I NYHA classification LV failure, compensated/euvolemic 4. Hypertension, currently hypotensive related to the above noted sepsis syndrome om pressors 5. Parkinson's disease/dementia, with altered mental status related to probable sepsis syndrome 6. Bradycardia and hypothermia since resolved, related to sepsis syndrome 7. CKD 8. UTI/sepsis syndrome 9. Sacral decubitus 10. Hypernatremia improved 11. Anemia PLAN: 1. Weaned off Dopamine gtt 2. Diovan 80 qd 3. Monitor off antibiotics, with f/u repeat C&S as per the primary team
--- NOTE | 2018-04-21 21:51 | PN ---
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, Physician History of Present Illness: patient awake, responding to her name - Current Medication List Current Medications: Active Medications Calcium Carbonate/Cholecalciferol (Os-Carmelo 500+D -) 1 tab NGT DAILY VASYL Last Admin: 04/21/18 09:51 Dose: 1 tab Carbidopa/Levodopa (Sinemet 25/100 -) 2 each NGT TID VASYL Last Admin: 04/21/18 21:07 Dose: 2 each Piperacillin Sod/Tazobactam (Sod 3.375 gm/ Dextrose) 50 mls @ 100 mls/hr IVPB Q8H-IV VASYL; Protocol Last Admin: 04/21/18 20:15 Dose: 100 mls/hr Valsartan (Diovan -) 80 mg PO DAILY VASYL Last Admin: 04/21/18 09:51 Dose: 80 mg - Objective Vital Signs: Vital Signs Temperature 97.7 F 04/21/18 20:00 Pulse Rate 88 04/21/18 20:00 Respiratory Rate 20 04/21/18 21:00 Blood Pressure 134/89 04/21/18 20:00 O2 Sat by Pulse Oximetry (%) 98 04/21/18 21:42 HENT: Yes: Atraumatic Neck: Yes: Supple Cardiovascular: Yes: Regular Rate and Rhythm Respiratory: Yes: CTA Bilaterally Gastrointestinal: Yes: Normal Bowel Sounds Extremities: Yes: WNL Edema: No Peripheral Pulses WNL: Yes Neurological: Yes: Alert, Oriented Labs: CBC, BMP 04/21/18 07:50 04/21/18 07:50 INR, PTT INR 1.18 (0.83-1.09) H 04/15/18 15:40 Problem List - Problems (1) Parkinson disease Assessment/Plan: on meds neuro on board Code(s): G20 - PARKINSON'S DISEASE (2) Sepsis Assessment/Plan: on iv abx patient more alert today Code(s): A41.9 - SEPSIS, UNSPECIFIED ORGANISM (3) Urinary tract infection Assessment/Plan: iv abx new cxs negative to date Code(s): N39.0 - URINARY TRACT INFECTION, SITE NOT SPECIFIED (4) Altered mental status Assessment/Plan: alert today, responding to her name Code(s): R41.82 - ALTERED MENTAL STATUS, UNSPECIFIED Qualifiers: Altered mental status type: disorientation Qualified Code(s): R41.0 - Disorientation, unspecified (5) Hypothermia Assessment/Plan: resolved Code(s): T68.XXXA - HYPOTHERMIA, INITIAL ENCOUNTER Qualifiers: Encounter type: subsequent encounter Qualified Code(s): T68.XXXD - Hypothermia, subsequent encounter (6) Rectal bleeding Code(s): K62.5 - HEMORRHAGE OF ANUS AND RECTUM Assessment/Plan icu 35 min
[2018-04-22] MEDS ORDERED: PIPERACILLIN/TAZOBACTAM 3.375 GM VIAL IVPB ONE ×3 (02:10→14:09)
[2018-04-22] MEDS ORDERED: DEXTROSE 5%-WATER - 50 ML IVPB ONE ×3 (02:11→14:10)
[2018-04-22] MEDS: PIPERACILLIN/TAZOB 3.375 GM 3.375 GM in DEXTROSE 5%-WATER - 50 ML IVPB SCH ×3 (02:57→17:40)
[2018-04-22] MEDS: CARBIDOPA/LEVODOPA 25/100 TABLET (FP) NGT SCH ×3 (05:33→21:38)
[2018-04-22 06:20] LABS: BASO % 0.7 % (0-2.0); EOS % 0.3 % (0-4.5); HEMATOCRIT 34.1 % (32.4-45.2); HEMOGLOBIN 10.6 GM/dL (10.7-15.3); LYMPH % 19.5 % (8-40); MCH 21.6 pg (25.7-33.7); MEAN CELL VOLUME 69.6 fl (80-96); MEAN PLT VOLUME 8.6 fl (7.5-11.1); NEUT % 72.5 % (42.8-82.8); PLATELET COUNT 261 K/MM3 (134-434); RDW 16.9 % (11.6-15.6); WHITE BLOOD COUNT 9.7 K/mm3 (4.0-10.0)
[2018-04-22 06:36] LABS: ALBUMIN 2.6 g/dl (3.4-5.0); ALK PHOS 96 U/L (45-117); ANION GAP 8 MMOL/L (8-16); BILIRUBIN,TOTAL 0.5 mg/dL (0.2-1); BLOOD UREA NITROGEN 22 mg/dL (7-18); CALCIUM 8.5 mg/dL (8.5-10.1); CHLORIDE 100 mmol/L (98-107); CO2 29 mmol/L (21-32); GLUCOSE,RANDOM 153 mg/dL (74-106); MAGNESIUM 2.2 mg/dL (1.8-2.4); PHOSPHOROUS 3.4 mg/dL (2.5-4.9); POTASSIUM 4.3 mmol/L (3.5-5.1); SGOT/AST 24 U/L (15-37); SGPT/ALT 10 U/L (13-61); SODIUM 137 mmol/L (136-145)
--- NOTE | 2018-04-22 08:05 | PN ---
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 (short form) - Note 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: Chief Complaint: Events noted, notes reviewed, lethargic, no acute distress, sinus rhythm is noted, MRI brain performed results pending History of Present Illness: Seen and examined in the ICU. Events noted, notes reviewed, lethargic, no acute distress, sinus rhythm is noted, MRI brain performed results pending Echocardiography dated 07/02/2017 revealed normal LV size and function with diastolic LV dysfunction - Current Medication List Current Medications Calcium Carbonate/Cholecalciferol (Os-Carmelo 500+D -) 1 tab NGT DAILY VASYL Last Admin: 04/21/18 09:51 Dose: 1 tab Carbidopa/Levodopa (Sinemet 25/100 -) 2 each NGT TID VASYL Last Admin: 04/22/18 05:33 Dose: 2 each Piperacillin Sod/Tazobactam (Sod 3.375 gm/ Dextrose) 50 mls @ 100 mls/hr IVPB Q8H-IV VASYL; Protocol Last Admin: 04/22/18 02:57 Dose: 100 mls/hr Valsartan (Diovan -) 80 mg PO DAILY VASYL Last Admin: 04/21/18 09:51 Dose: 80 mg Review of Systems Unable to obtain - Objective Vital Signs: Last Vital Signs Temp Pulse Resp BP Pulse Ox 98.7 F 77 25 H 102/64 98 04/22/18 02:00 04/22/18 06:00 04/22/18 06:00 04/22/18 06:00 04/21/18 21:42 Intake & Output 04/19/18 04/20/18 04/21/18 04/22/18 23:59 23:59 23:59 23:59 Intake Total 930 500 100 589 Output Total 300 150 Balance 630 350 100 589 Weight 139 lb 15.896 oz 142 lb 139 lb 12.369 oz 135 lb 1 oz Neck: Supple Negative JVD No Bruit Cardiovascular: S1 S2 Regular Rate and Rhythm Chest: Scattered Course Rhonchi Bilaterally Gastrointestinal: Soft Benign Normal Bowel Sounds Ext: Trace Edema Labs: CBC, BMP 04/22/18 05:30 04/22/18 05:30 Hepatic Panel Total Bilirubin 0.5 mg/dL (0.2-1) 04/22/18 05:30 AST 24 U/L (15-37) 04/22/18 05:30 ALT 10 U/L (13-61) L 04/22/18 05:30 Alkaline Phosphatase 96 U/L (45-117) 04/22/18 05:30 Albumin 2.6 g/dl (3.4-5.0) L 04/22/18 05:30 Assessment/Plan ASSESSMENT: 1. Acute hypoxic respiratory failure/resolved, with underlying chronic lung disease, probable pneumonia with sepsis syndrome 2. CAD angina pectoris 3. Diastolic LV dysfunction with clinical class 0-I NYHA classification LV failure, compensated/euvolemic 4. Hypertension 5. Parkinson's disease/dementia, with altered mental status related to probable sepsis syndrome, MRI brain performed await results 6. Bradycardia (cannot exclude underlying sinus node dysfunction) and hypothermia since resolved, related to sepsis syndrome 7. CKD 8. UTI/sepsis syndrome, resolved 9. Sacral decubitus 10. Hypernatremia, resolved 11. Anemia PLAN: 1. Continue Diovan 2. As outlined in prior notes avoid B-Blockers related to the above noted bradycardia (cannot exclude underlying sinus node dysfunction) 3. Antibiotics as per the primary team/ID team 4. As outlined in prior notes may be transferred to floor care from the cardiovascular point of view Palmira Pratt MD
[2018-04-22] MEDS: CALCIUM 500MG/VIT-D 200 UNITS COMBO TABLET (FP) NGT SCH (10:41)
[2018-04-22] MEDS: VALSARTAN 80 MG TABLET (UD) PO SCH (10:41)
--- NOTE | 2018-04-22 11:16 | PN ---
Physical Exam: SUBJECTIVE: Patient seen and examined at bedside. No acute events overnight. Pt more alert today, opens eyes and mumbling. OBJECTIVE: Vital Signs Period Temp Pulse Resp BP Sys/Campbell Pulse Ox Last 24 Hr 97.6 F-98.7 F 66-91 11 91-135/62-89 98-99 GENERAL: Awake and alert. Mumbling words. HEENT: AT/NC. NG tube in place. NECK: Supple LAD/JVD. LUNGS: CTA B/L. No wheezes noted. Symmetric chest rise. HEART: RRR. Normal S1, S2. No murmurs noted. ABDOMEN: Soft, NT/ND. +BS in all 4Qs. MUSCULOSKELETAL: Normal range of motion at all joints. No bony deformities or tenderness. No CVA tenderness. EXTREMITIES: No peripheral edema noted. 2+ pedal pulses. NEUROLOGICAL: Awake and alert. SKIN: Multiple scattered superficial decubitus ulcers, non bleeding, non- erythematous, non-infected. Laboratory Results - last 24 hr 04/22/18 04/22/18 05:30 05:30 WBC 9.7 RBC 4.90 Hgb 10.6 L Hct 34.1 MCV 69.6 L MCH 21.6 L MCHC 31.0 L RDW 16.9 H Plt Count 261 D MPV 8.6 Absolute Neuts (auto) 7.0 Neutrophils % 72.5 Lymphocytes % 19.5 D Monocytes % 7.0 Eosinophils % 0.3 Basophils % 0.7 Nucleated RBC % 0 Sodium 137 Potassium 4.3 Chloride 100 Carbon Dioxide 29 Anion Gap 8 BUN 22 H Creatinine 1.0 Creat Clearance w eGFR 53.35 Random Glucose 153 H Calcium 8.5 Phosphorus 3.4 Magnesium 2.2 Total Bilirubin 0.5 AST 24 ALT 10 L Alkaline Phosphatase 96 Total Protein 7.0 Albumin 2.6 L Active Medications Generic Name Dose Route Start Last Admin Trade Name Freq PRN Reason Stop Dose Admin Calcium Carbonate/Cholecalciferol 1 tab 04/15/18 10:00 04/22/18 10:41 Os-Carmelo 500+D - NGT 1 tab DAILY VASYL Administration Carbidopa/Levodopa 2 each 04/15/18 06:00 04/22/18 05:33 Sinemet 25/100 - NGT 2 each TID VASYL Administration Piperacillin Sod/Tazobactam 50 mls @ 100 mls/hr 04/19/18 16:00 04/22/18 10:41 Sod 3.375 gm/ Dextrose IVPB 100 mls/hr Q8H-IV VASYL Administration Protocol Valsartan 80 mg 04/18/18 10:00 04/22/18 10:41 Diovan - PO 80 mg DAILY VASYL Administration ASSESSMENT/PLAN: 78 y/o female with PMH of parkinsons, dementia, HTN presents with weakness, lethargy, AMS presented to the ICU with septic shock 2/2 UTI. Neurology #Acute Metabolic Encephalopathy -Much improved. Awake and alert today. Family was able to communicate with pt last night. -likely 2/2 UTI, blood cx also + for staph epi. -Neuro checks -Brain MRI showed no evidence of abnormal restricted diffusion in the brain to suggest acute or subacute infarction. Supratentorial chronic white matter microangiopathic ischemic changes, gliosis. #Parkinson's Dementia -Per neuro: c/w Sinemet Pulmonary -satting 100% on RA -cont to monitor SpO2 Cardiovascular #Hypotension 2/2 Septic shock due to UTI/bacteremia -BP stable. -Per cardio: Valsartan 80 mg PO QD, may be transferred out of ICU from CV standpoint -Maintain MAP >65 GI -Per GI, PPI not needed at this time. ID #Septic shock 2/2 UTI/Diffuse colitis -Afebrile overnight; BCx neg x72 hrs, U/A showed 3+ LE and 36 WBC; lac 1.0 -CXR: No acute chest process seen. -Per ID, cont Zosyn 3.375 gm (Day 4); BCx neg (04/14), BCx neg x72hrs (04/19) FEN -no IVf needed -recheck lytes in AM -diet according to swallow eval Lines -NGT Dispo -transfer to med-surg Visit type - Emergency Visit Emergency Visit: Yes ED Registration Date: 04/13/18 Care time: The patient presented to the Emergency Department on the above date and was hospitalized for further evaluation of their emergent condition. - New Patient This patient is new to me today: No - Critical Care Critical Care patient: Yes Total Critical Care Time (in minutes): 36 Critical Care Statement: The care of this patient involved high complexity decision making to prevent further life threatening deterioration of the patient 's condition and/or to evaluate & treat vital organ system(s) failure or risk of failure.
--- NOTE | 2018-04-22 12:05 | CONSULT ---
Admitting History and Physical - Primary Care Physician PCP: Emily Mckeon - Admission History of Present Illness: 78 y/o female with PMH of parkinsons, dementia, HTN presents with weakness, lethargy, AMS presented to the ICU with septic shock 2/2 UTI. Selected Entries 04/22/18 04/22/18 04/22/18 02:00 10:22 12:10 Lunch NPO Temperature 98.7 F 98.1 F Laboratory Tests 04/18/18 04/19/18 04/20/18 05:30 10:45 05:30 WBC 7.5 10.3 H 15.4 H 04/21/18 04/22/18 07:50 05:30 WBC 11.0 H [address]-Patient feedings were turned off as per family as they felt it was "making her cough", per nursing.They were restarted yesterday. Family not present during my evaluation. Last seen by me Jun 2017-Pt received pureed diet and nectar thick liquid with good tolerance. More alert. Verbal but rapid with poor (+) intelligibility History Source: Medical Record Limitations to Obtaining History: Clinical Condition, Dementia - Past Medical History ACCOUNT SUPPORT ASSOCIATE: Yes: Dementia, Parkinson's. No: Seizure, Syncope Cardiovascular: Yes: HTN, Hyperlipdemia Musculoskeletal: Yes: Other (osteoporosis) Endocrine: Yes: Diabetes Mellitus - Past Surgical History Past Surgical History: Yes: Hysterectomy, Joint Replacement (Bilateral knee surgery) - Smoking History Smoking history: Never smoked Have you smoked in the past 12 months: No - Alcohol/Substance Use Hx Alcohol Use: No History - Admission Reason For Visit: URINARY TRACT INFECTION/SEPSIS - Diagnostics X-ray: Report Reviewed CT Scan: Report Reviewed MRI: Report Reviewed - General Mental Status: Lethargic (Eyes remained closed but some arousability.) Attention: Severe Impairment Ability to Follow Directions: Poor Head/Neck Control: Fair - Hearing Hearing: Normal Speech Evaluation - Communication Primary Language: [place] Communication: Yes: Non-Communicable Oral Expression Ability: Yes: Severe Impairment - Speech Production Able to Make Needs Known: Yes: Severely Impaired Intelligibility: Yes: Severely Impaired - Speech Characteristics Voice Phonatory-based Quality: Yes: Normal (during vocalization) Articulation: Yes: Imprecise - Language/Auditory Comprehension Observation: Able to respond to yes/no queries: No, Comprehends Conversational Speech: No (maybe social speech) - Language/Verbal Expression Functional Communication Status: Yes: Severely Impaired - Swallow Evaluation/Bedside Assessment Current Nutritional Intake: NG Tube Rate of Intake: Slow/Holding Coughing/Throat Clear: Yes (throat clearing on saliva and tiny trial of puree.) Recommendations - Speech Evaluation, Impression/Plan Impression: Swallowing not functional at present.Prognosis quite guarded for functional recovery. - Dysphagia Impressions/Plan Swallowing Skills: Impaired Dysphagia Impressions: Severe Impairment, Ongoing Evaluation, Suspect Aspiration *Silent aspiration: cannot be R/O at bedside Recommendations: Palliative Care (End of life wishes- Pt is full code. PEG? Hospice? To reassess swallowing if pt improves.), Other (Continue NGT feeding for now) - Recommendations Diet Consistency: NPO
--- NOTE | 2018-04-22 13:00 | PN ---
Teaching Attending Note Name of Resident: Yajaira Dillard ATTENDING PHYSICIAN STATEMENT I saw and evaluated the patient. I reviewed the resident's note and discussed the case with the resident. I agree with the resident's findings and plan as documented. SUBJECTIVE: Pt seen and examined in the ICU. More alert, awake today. No events overnight. MRI without acute findings. OBJECTIVE: Vital Signs Period Temp Pulse Resp BP Sys/Campbell Pulse Ox Last 24 Hr 97.6 F-98.7 F 72-91 04-20 91-135/62-89 98-99 Intake & Output 04/19/18 04/20/18 04/21/18 04/22/18 23:59 23:59 23:59 23:59 Intake Total 930 500 100 589 Output Total 300 150 Balance 630 350 100 589 Weight 63.5 kg 64.41 kg 63.4 kg 61.263 kg Gen: more alert, awake Heart: RRR Lung: decreased breath sounds at the bases Abd: soft, nontender Ext: no edema CBC, BMP 04/22/18 05:30 04/22/18 05:30 Active Medications Calcium Carbonate/Cholecalciferol (Os-Carmelo 500+D -) 1 tab NGT DAILY [facility] Last Admin: 04/22/18 10:41 Dose: 1 tab Carbidopa/Levodopa (Sinemet 25/100 -) 2 each NGT TID [facility] Last Admin: 04/22/18 05:33 Dose: 2 each Piperacillin Sod/Tazobactam (Sod 3.375 gm/ Dextrose) 50 mls @ 100 mls/hr IVPB Q8H-IV [facility]; Protocol Last Admin: 04/22/18 10:41 Dose: 100 mls/hr Valsartan (Diovan -) 80 mg PO DAILY [facility] Last Admin: 04/22/18 10:41 Dose: 80 mg ASSESSMENT AND PLAN: s/p Acute Hypoxic Respiratory Failure UTI Staph Bacteremia Septic Shock resolved Bradycardia improved CAD LV Diastolic Dysfunction CKD Thrombocytopenia Parkinsons Disease - antibiotics per ID - f/u repeat cultures - O2 to keep SpO2 >90% - aspiration precautions - neuro f/u - DVT prophylaxis - can monitor on floor
--- NOTE | 2018-04-22 13:31 | PN ---
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, Physician History of Present Illness: patient doing much better awake ng tube in place - Current Medication List Current Medications: Active Medications Calcium Carbonate/Cholecalciferol (Os-Carmelo 500+D -) 1 tab NGT DAILY [facility] Last Admin: 04/22/18 10:41 Dose: 1 tab Carbidopa/Levodopa (Sinemet 25/100 -) 2 each NGT TID [facility] Last Admin: 04/22/18 05:33 Dose: 2 each Piperacillin Sod/Tazobactam (Sod 3.375 gm/ Dextrose) 50 mls @ 100 mls/hr IVPB Q8H-IV [facility]; Protocol Last Admin: 04/22/18 10:41 Dose: 100 mls/hr Valsartan (Diovan -) 80 mg PO DAILY [facility] Last Admin: 04/22/18 10:41 Dose: 80 mg - Objective Vital Signs: Vital Signs Temperature 98.1 F 04/22/18 10:22 Pulse Rate 82 04/22/18 12:00 Respiratory Rate 20 04/22/18 12:00 Blood Pressure 112/73 04/22/18 12:00 O2 Sat by Pulse Oximetry (%) 99 04/22/18 09:00 Constitutional: Yes: No Distress, Calm Cardiovascular: Yes: Regular Rate and Rhythm Respiratory: Yes: Regular, CTA Bilaterally Gastrointestinal: Yes: Normal Bowel Sounds, Soft, Other (ng tube in place) Musculoskeletal: Yes: WNL Extremities: Yes: WNL Neurological: Yes: Alert, Other Psychiatric: Yes: Alert Labs: CBC, BMP 04/22/18 05:30 04/22/18 05:30 INR, PTT INR 1.18 (0.83-1.09) H 04/15/18 15:40 Assessment/Plan Sepsis due to UTI / PNA / Colitis Metabolic Encephalopathy Bradycardia Diarrhea GI Bleed Anemia HTN Sacral decubitus ulcer Parkinson's sepsis lethargy weakness hypothermia uti plan continue as per icu neurology continue abx monitor wbc all cx results noted nutrition rest as per the team as per gi will deescalate in a day or so cc 35 min
[2018-04-22] MEDS ORDERED: SODIUM CHLORIDE 250 ML IV STA ×3 (17:50→23:28)
[2018-04-22] MEDS ORDERED: VALSARTAN 80 MG TABLET (UD) PO SCH (17:56)
--- NOTE | 2018-04-22 18:17 | PN ---
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, Physician History of Present Illness: much better responding to questions - Current Medication List Current Medications: Active Medications Calcium Carbonate/Cholecalciferol (Os-Carmelo 500+D -) 1 tab NGT DAILY [facility] Last Admin: 04/22/18 10:41 Dose: 1 tab Carbidopa/Levodopa (Sinemet 25/100 -) 2 each NGT TID [facility] Last Admin: 04/22/18 14:13 Dose: 2 each Piperacillin Sod/Tazobactam (Sod 3.375 gm/ Dextrose) 50 mls @ 100 mls/hr IVPB Q8H-IV [facility]; Protocol Last Admin: 04/22/18 17:40 Dose: 100 mls/hr Sodium Chloride (Normal Saline -) 250 mls @ 250 mls/hr IV ASDIR STA Stop: 04/22/18 18:56 Valsartan (Diovan -) 40 mg PO DAILY [facility] - Objective Vital Signs: Vital Signs Temperature 98.4 F 04/22/18 17:53 Pulse Rate 70 04/22/18 17:53 Respiratory Rate 14 04/22/18 17:53 Blood Pressure 95/52 L 04/22/18 17:53 O2 Sat by Pulse Oximetry (%) 99 04/22/18 09:00 Constitutional: Yes: No Distress HENT: Yes: WNL Neck: Yes: WNL Cardiovascular: Yes: Regular Rate and Rhythm Respiratory: Yes: CTA Bilaterally Gastrointestinal: Yes: Normal Bowel Sounds Extremities: Yes: WNL Edema: No Peripheral Pulses WNL: Yes Neurological: Yes: Alert Labs: CBC, BMP 04/22/18 05:30 04/22/18 05:30 INR, PTT INR 1.18 (0.83-1.09) H 04/15/18 15:40 Problem List - Problems (1) Parkinson disease Assessment/Plan: on meds neuro on board Code(s): G20 - PARKINSON'S DISEASE (2) Sepsis Assessment/Plan: on iv abx new cxs negative Code(s): A41.9 - SEPSIS, UNSPECIFIED ORGANISM (3) Urinary tract infection Assessment/Plan: iv abx new cxs negative to date Code(s): N39.0 - URINARY TRACT INFECTION, SITE NOT SPECIFIED (4) Altered mental status Code(s): R41.82 - ALTERED MENTAL STATUS, UNSPECIFIED Qualifiers: Altered mental status type: disorientation Qualified Code(s): R41.0 - Disorientation, unspecified (5) Hypothermia Code(s): T68.XXXA - HYPOTHERMIA, INITIAL ENCOUNTER Qualifiers: Encounter type: subsequent encounter Qualified Code(s): T68.XXXD - Hypothermia, subsequent encounter (6) Rectal bleeding Code(s): K62.5 - HEMORRHAGE OF ANUS AND RECTUM Assessment/Plan icu 35 min
--- NOTE | 2018-04-22 19:06 | PN ---
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 (short form) - Note 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: pt BP droped to 83/50. 250 ml bolus given. Will hold BP med and monitor BP. Once BP goes up consider starting low dose of BP med.
[2018-04-23] MEDS: PIPERACILLIN/TAZOB 3.375 GM 3.375 GM in DEXTROSE 5%-WATER - 50 ML IVPB SCH ×3 (02:00→18:07)
[2018-04-23 06:33] LABS: BASO % 0.4 % (0-2.0); EOS % 0.4 % (0-4.5); HEMATOCRIT 31.1 % (32.4-45.2); HEMOGLOBIN 9.8 GM/dL (10.7-15.3); LYMPH % 22.7 % (8-40); MCH 21.8 pg (25.7-33.7); MCHC 31.5 g/dl (32.0-36.0); MEAN CELL VOLUME 69.4 fl (80-96); MEAN PLT VOLUME 8.4 fl (7.5-11.1); MONO % 7.1 % (3.8-10.2); NEUT % 69.4 % (42.8-82.8); PLATELET COUNT 320 K/MM3 (134-434); RBC 4.49 M/mm3 (3.60-5.2); RDW 16.6 % (11.6-15.6); WHITE BLOOD COUNT 9.7 K/mm3 (4.0-10.0)
[2018-04-23] MEDS: CARBIDOPA/LEVODOPA 25/100 TABLET (FP) NGT SCH ×3 (06:50→21:26)
[2018-04-23 08:08] LABS: ALBUMIN 2.4 g/dl (3.4-5.0); ALK PHOS 86 U/L (45-117); ANION GAP 6 MMOL/L (8-16); BILIRUBIN,TOTAL 0.3 mg/dL (0.2-1); BLOOD UREA NITROGEN 23 mg/dL (7-18); CALCIUM 7.9 mg/dL (8.5-10.1); CHLORIDE 104 mmol/L (98-107); CO2 29 mmol/L (21-32); GLUCOSE,RANDOM 188 mg/dL (74-106); MAGNESIUM 2.3 mg/dL (1.8-2.4); PHOSPHOROUS 2.8 mg/dL (2.5-4.9); POTASSIUM 4.1 mmol/L (3.5-5.1); SGOT/AST 16 U/L (15-37); SGPT/ALT 8 U/L (13-61); SODIUM 139 mmol/L (136-145); TOT PROT 6.6 g/dl (6.4-8.2)
[2018-04-23] MEDS ORDERED: SODIUM CHLORIDE 250 ML IV STA (08:19)
--- NOTE | 2018-04-23 08:24 | PN ---
Physical Exam: SUBJECTIVE: Patient seen and examined at bedside. Per overnight team, pt's BP has been labile throughout the night with periodic episodes of hypotension. 500cc bolus given overnight, and 250cc bolus given this AM. OBJECTIVE: Vital Signs Period Temp Pulse Resp BP Sys/Campbell Pulse Ox Last 24 Hr 97 F-98.4 F 62-83 12-20 78-112/50-73 99-99 GENERAL: Lethargic. Mumbling words. HEENT: AT/NC. NG tube in place. NECK: Supple LAD/JVD. LUNGS: CTA B/L. No wheezes noted. Symmetric chest rise. HEART: RRR. Normal S1, S2. No murmurs noted. ABDOMEN: Soft, NT/ND. +BS in all 4Qs. MUSCULOSKELETAL: No bony deformities or tenderness. No CVA tenderness. EXTREMITIES: No peripheral edema noted. 2+ pedal pulses. NEUROLOGICAL: Lethargic. Mumbling words. SKIN: Multiple scattered superficial decubitus ulcers, non bleeding, non- erythematous, non-infected. Laboratory Results - last 24 hr 04/23/18 04/23/18 05:30 05:30 WBC 9.7 RBC 4.49 Hgb 9.8 L Hct 31.1 L MCV 69.4 L MCH 21.8 L MCHC 31.5 L RDW 16.6 H Plt Count 320 D MPV 8.4 Absolute Neuts (auto) 6.7 Neutrophils % 69.4 Lymphocytes % 22.7 Monocytes % 7.1 Eosinophils % 0.4 Basophils % 0.4 Nucleated RBC % 0 Sodium 139 Potassium 4.1 Chloride 104 Carbon Dioxide 29 Anion Gap 6 L BUN 23 H Creatinine 1.0 Creat Clearance w eGFR 53.35 Random Glucose 188 H Calcium 7.9 L Phosphorus 2.8 Magnesium 2.3 Total Bilirubin 0.3 AST 16 ALT 8 L Alkaline Phosphatase 86 Total Protein 6.6 Albumin 2.4 L Active Medications Generic Name Dose Route Start Last Admin Trade Name Freq PRN Reason Stop Dose Admin Calcium Carbonate/Cholecalciferol 1 tab 04/15/18 10:00 04/22/18 10:41 Os-Carmelo 500+D - NGT 1 tab DAILY [facility] Administration Carbidopa/Levodopa 2 each 04/15/18 06:00 04/23/18 06:50 Sinemet 25/100 - NGT 2 each TID [facility] Administration Piperacillin Sod/Tazobactam 50 mls @ 100 mls/hr 04/19/18 16:00 04/23/18 02:00 Sod 3.375 gm/ Dextrose IVPB 100 mls/hr Q8H-IV [facility] Administration Protocol Sodium Chloride 250 mls @ 250 mls/hr 04/23/18 08:19 Normal Saline - IV 04/23/18 09:18 ASDIR STA ASSESSMENT/PLAN: 78 y/o female with PMH of parkinsons, dementia, HTN presents with weakness, lethargy, AMS presented to the ICU with septic shock 2/2 UTI. Neurology #Acute Metabolic Encephalopathy 2/2 septic shock -Family was able to communicate with pt last night. -likely 2/2 UTI, blood cx also + for staph epi. -Neuro checks -Brain MRI showed no evidence of abnormal restricted diffusion in the brain to suggest acute or subacute infarction. Supratentorial chronic white matter microangiopathic ischemic changes, gliosis. -D/w neuro regarding pt's status #Parkinson's Dementia -Per neuro: c/w Sinemet -Hold Neupropatch Pulmonary -satting 100% on RA -cont to monitor SpO2 Cardiovascular #Hypotension 2/2 Septic shock due to UTI/bacteremia -BP labile. BCx, UCx, U/A, CXR reordered. -Valsartan d/c'd as pt has been hypotensive. -Maintain MAP >65 -NS 1L, recheck BP ID #Septic shock 2/2 UTI/Diffuse colitis -Afebrile overnight; BCx neg x96 hrs (04/19), U/A showed 3+ LE and 36 WBC; lac 1.0 -CXR: No acute chest process seen. -Per ID, cont Zosyn 3.375 gm (Day 5); BCx neg (04/14), BCx neg (04/19) -BCx, UCx, U/A CXR reordered FEN -no IVf needed -recheck lytes in AM -Tube Feed Osmolite Lines -NGT Dispo -transfer to med-surg -Pt failed swallow eval yesterday. Discussed w/ pt's daughter regarding potential need for PEG tube if mental status does not improve. Also advised daughter to discuss goals of care with rest of family. Visit type - Emergency Visit Emergency Visit: Yes ED Registration Date: 04/13/18 Care time: The patient presented to the Emergency Department on the above date and was hospitalized for further evaluation of their emergent condition. - New Patient This patient is new to me today: No - Critical Care Critical Care patient: Yes Total Critical Care Time (in minutes): 36 Critical Care Statement: The care of this patient involved high complexity decision making to prevent further life threatening deterioration of the patient 's condition and/or to evaluate & treat vital organ system(s) failure or risk of failure.
[2018-04-23] MEDS ORDERED: PIPERACILLIN/TAZOBACTAM 3.375 GM VIAL IVPB ONE ×3 (10:37→21:23)
[2018-04-23] MEDS ORDERED: DEXTROSE 5%-WATER - 50 ML IVPB ONE ×3 (10:37→21:23)
[2018-04-23] MEDS: CALCIUM 500MG/VIT-D 200 UNITS COMBO TABLET (FP) NGT SCH (10:41)
[2018-04-23] MEDS ORDERED: SODIUM CHLORIDE 1,000 ML IV STA ×2 (11:30→11:31)
--- NOTE | 2018-04-23 12:04 | PN ---
Teaching Attending Note Name of Resident: Yajaira Dillard ATTENDING PHYSICIAN STATEMENT I saw and evaluated the patient. I reviewed the resident's note and discussed the case with the resident. I agree with the resident's findings and plan as documented. SUBJECTIVE: Pt seen and examined in the ICU. Borderline hypotensive starting last night. Mental status unchanged, did not pass swallow eval. OBJECTIVE: Vital Signs Period Temp Pulse Resp BP Sys/Campbell Pulse Ox Last 24 Hr 97 F-98.4 F 62-81 12-17 78-105/50-71 99-99 Intake & Output 04/20/18 04/21/18 04/22/18 04/23/18 23:59 23:59 23:59 23:59 Intake Total 523 353 9614 1020 Output Total 150 Balance 856 601 7118 1020 Weight 64.41 kg 63.4 kg 61.263 kg 60.838 kg Gen: somnolent, arousable, breathing nonlabored Heart: RRR Lung: decreased breath sound at the bases Abd: soft, nontender Ext: no edema CBC, BMP 04/23/18 05:30 04/23/18 05:30 Active Medications Calcium Carbonate/Cholecalciferol (Os-Carmelo 500+D -) 1 tab NGT DAILY [facility] Last Admin: 04/23/18 10:41 Dose: 1 tab Carbidopa/Levodopa (Sinemet 25/100 -) 2 each NGT TID [facility] Last Admin: 04/23/18 06:50 Dose: 2 each Piperacillin Sod/Tazobactam (Sod 3.375 gm/ Dextrose) 50 mls @ 100 mls/hr IVPB Q8H-IV [facility]; Protocol Last Admin: 04/23/18 10:41 Dose: 100 mls/hr Sodium Chloride (Normal Saline -) 1,000 mls @ 1,000 mls/hr IV ASDIR STA Stop: 04/23/18 12:29 Last Admin: 04/23/18 11:54 Dose: 1,000 mls/hr ASSESSMENT AND PLAN: s/p Acute Hypoxic Respiratory Failure UTI Staph Bacteremia Septic Shock resolved Bradycardia improved CAD LV Diastolic Dysfunction CKD Thrombocytopenia Parkinsons Disease - IV boluses as needed - antibiotics per ID - O2 to keep SpO2 >90% - aspiration precautions - neuro f/u - DVT prophylaxis - can monitor on floor
--- NOTE | 2018-04-23 13:57 | PN ---
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, Physician History of Present Illness: overnight patient became hypotensive got boluses now with normal bp - Current Medication List Current Medications: Active Medications Calcium Carbonate/Cholecalciferol (Os-Carmelo 500+D -) 1 tab NGT DAILY [facility] Last Admin: 04/23/18 10:41 Dose: 1 tab Carbidopa/Levodopa (Sinemet 25/100 -) 2 each NGT TID [facility] Last Admin: 04/23/18 06:50 Dose: 2 each Piperacillin Sod/Tazobactam (Sod 3.375 gm/ Dextrose) 50 mls @ 100 mls/hr IVPB Q8H-IV [facility]; Protocol Last Admin: 04/23/18 10:41 Dose: 100 mls/hr - Objective Vital Signs: Vital Signs Temperature 97 F L 04/23/18 06:00 Pulse Rate 81 04/23/18 06:00 Respiratory Rate 15 04/23/18 06:00 Blood Pressure 88/53 L 04/23/18 06:00 O2 Sat by Pulse Oximetry (%) 99 04/22/18 21:00 Constitutional: Yes: No Distress, Calm Cardiovascular: Yes: Regular Rate and Rhythm, S1, S2 Respiratory: Yes: Regular, CTA Bilaterally Gastrointestinal: Yes: Normal Bowel Sounds, Soft Musculoskeletal: Yes: WNL Extremities: Yes: WNL Neurological: Yes: Other Labs: CBC, BMP 04/23/18 05:30 04/23/18 05:30 INR, PTT INR 1.18 (0.83-1.09) H 04/15/18 15:40 Assessment/Plan Sepsis due to UTI / PNA / Colitis Metabolic Encephalopathy Bradycardia Diarrhea GI Bleed Anemia HTN Sacral decubitus ulcer Parkinson's sepsis lethargy weakness hypothermia uti plan continue as per icu neurology continue abx nutrition rest as per the team as per gi will deescalate in a day or so if patient remains stable cc 35 min
[2018-04-23 14:26] LABS: ANISOCYTOSIS 2+; MACROCYTOSIS 0; PLATELET ESTIMATE NORMAL; TARGET CELLS 1+
[2018-04-23 15:05] LABS: URINE APPEARANCE CLOUDY; URINE BILIRUBIN NEGATIVE (<2.0 mg/dL); URINE COLOR YELLOW; URINE GLUCOSE (UA) NEGATIVE (NEGATIVE); URINE KETONE NEGATIVE (NEGATIVE); URINE LEUK ESTERASE TRACE (NEGATIVE); URINE NITRITE NEGATIVE (NEGATIVE); URINE PROTEIN NEGATIVE (NEGATIVE)
[2018-04-23 15:17] LABS: EPI CELLS MANY /HPF (FEW); URINE MUCUS RARE; YEAST FEW
--- NOTE | 2018-04-23 16:02 | PN ---
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, Physician - Current Medication List Current Medications: Active Medications Calcium Carbonate/Cholecalciferol (Os-Carmelo 500+D -) 1 tab NGT DAILY [facility] Last Admin: 04/23/18 10:41 Dose: 1 tab Carbidopa/Levodopa (Sinemet 25/100 -) 2 each NGT TID [facility] Last Admin: 04/23/18 14:33 Dose: 2 each Piperacillin Sod/Tazobactam (Sod 3.375 gm/ Dextrose) 50 mls @ 100 mls/hr IVPB Q8H-IV [facility]; Protocol Last Admin: 04/23/18 10:41 Dose: 100 mls/hr - Objective Vital Signs: Vital Signs Temperature 97 F L 04/23/18 06:00 Pulse Rate 80 04/23/18 14:00 Respiratory Rate 15 04/23/18 14:00 Blood Pressure 109/59 L 04/23/18 14:00 O2 Sat by Pulse Oximetry (%) 99 04/22/18 21:00 Constitutional: Yes: No Distress HENT: Yes: Atraumatic Neck: Yes: Supple Cardiovascular: Yes: Regular Rate and Rhythm Respiratory: Yes: Rhonchi Gastrointestinal: Yes: Normal Bowel Sounds Extremities: Yes: WNL Edema: No Peripheral Pulses WNL: Yes Neurological: Yes: Alert, Oriented Labs: CBC, BMP 04/23/18 05:30 04/23/18 05:30 INR, PTT INR 1.18 (0.83-1.09) H 04/15/18 15:40 Problem List - Problems (1) Parkinson disease Assessment/Plan: on meds stable Code(s): G20 - PARKINSON'S DISEASE (2) Sepsis Assessment/Plan: on iv abx new cxs negative Code(s): A41.9 - SEPSIS, UNSPECIFIED ORGANISM (3) Urinary tract infection Assessment/Plan: iv abx new cxs negative to date Code(s): N39.0 - URINARY TRACT INFECTION, SITE NOT SPECIFIED (4) Altered mental status Assessment/Plan: more alert now responding to questions on tubefeeds Code(s): R41.82 - ALTERED MENTAL STATUS, UNSPECIFIED Qualifiers: Altered mental status type: disorientation Qualified Code(s): R41.0 - Disorientation, unspecified (5) Hypothermia Assessment/Plan: resolved Code(s): T68.XXXA - HYPOTHERMIA, INITIAL ENCOUNTER Qualifiers: Encounter type: subsequent encounter Qualified Code(s): T68.XXXD - Hypothermia, subsequent encounter (6) Rectal bleeding Assessment/Plan: resolved Code(s): K62.5 - HEMORRHAGE OF ANUS AND RECTUM Assessment/Plan icu 35 min
--- NOTE | 2018-04-23 16:24 | PN ---
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, Physician History of Present Illness: More alert. Valsartan d/artemio due to hypotension. Enteral feeds through NGT. - Current Medication List Current Medications: Active Medications Calcium Carbonate/Cholecalciferol (Os-Carmelo 500+D -) 1 tab NGT DAILY [facility] Last Admin: 04/23/18 10:41 Dose: 1 tab Carbidopa/Levodopa (Sinemet 25/100 -) 2 each NGT TID [facility] Last Admin: 04/23/18 14:33 Dose: 2 each Piperacillin Sod/Tazobactam (Sod 3.375 gm/ Dextrose) 50 mls @ 100 mls/hr IVPB Q8H-IV [facility]; Protocol Last Admin: 04/23/18 10:41 Dose: 100 mls/hr - Objective Vital Signs: Vital Signs Temperature 97 F L 04/23/18 06:00 Pulse Rate 80 04/23/18 14:00 Respiratory Rate 15 04/23/18 14:00 Blood Pressure 109/59 L 04/23/18 14:00 O2 Sat by Pulse Oximetry (%) 99 04/22/18 21:00 Constitutional: Yes: No Distress, Calm, Thin Neck: Yes: Supple Cardiovascular: Yes: Regular Rate and Rhythm Respiratory: Yes: Regular, Diminished Gastrointestinal: Yes: Normal Bowel Sounds, Soft Edema: No Labs: CBC, BMP 04/23/18 05:30 04/23/18 05:30 INR, PTT INR 1.18 (0.83-1.09) H 04/15/18 15:40 - ....Imaging Chest X-ray: Report Reviewed (NAD) Problem List - Problems (1) Parkinson disease Code(s): G20 - PARKINSON'S DISEASE (2) Acute hypoxemic respiratory failure Code(s): J96.01 - ACUTE RESPIRATORY FAILURE WITH HYPOXIA (3) Altered mental status Code(s): R41.82 - ALTERED MENTAL STATUS, UNSPECIFIED Qualifiers: Altered mental status type: disorientation Qualified Code(s): R41.0 - Disorientation, unspecified (4) Bradycardia Code(s): R00.1 - BRADYCARDIA, UNSPECIFIED (5) E. coli UTI Code(s): N39.0 - URINARY TRACT INFECTION, SITE NOT SPECIFIED; B96.20 - UNSP ESCHERICHIA COLI THE CAUSE OF DISEASES CLASSD ELSWHR (6) Hypothermia Code(s): T68.XXXA - HYPOTHERMIA, INITIAL ENCOUNTER Qualifiers: Encounter type: subsequent encounter Qualified Code(s): T68.XXXD - Hypothermia, subsequent encounter Assessment/Plan Echocardiography dated 07/02/2017 revealed normal LV size and function with diastolic LV dysfunction 1. Acute hypoxic respiratory failure/resolved with underlying chronic lung disease, probable pneumonia with sepsis syndrome 2. CAD angina pectoris 3. Diastolic LV dysfunction with clinical class 0-I NYHA classification LV failure, compensated/euvolemic 4. Hypertension 5. Parkinson's disease/dementia, with altered mental status related to probable sepsis syndrome, MRI brain performed await results 6. Bradycardia improved (cannot exclude underlying sinus node dysfunction) and hypothermia since resolved, related to sepsis syndrome 7. CKD 8. UTI/sepsis syndrome, resolved 9. Sacral decubitus 10. Hypernatremia, resolved 11. Anemia PLAN: 1. Resume Diovan 40 qd as hemodynamics tolerate 2. As outlined in prior notes avoid B-Blockers related to the above noted bradycardia (cannot exclude underlying sinus node dysfunction) 3. Antibiotics as per the primary team/ID team 4. As outlined in prior notes may be transferred to floor care from the cardiovascular point of view
--- NOTE | 2018-04-23 16:56 | ECHO ---
Name: VANDANA NATARAJAN Exam:Adult Echocardiogram Study Date: 04/23/2018 03:37 PM Age: 78 yrs Reason For Study: SHOCK Height: 60 in Weight: 134 lb BSA: 1.6 m2 MMode/2D Measurements & Calculations IVSd: 0.82 cm Ao root diam: 2.7 cm LVIDd: 4.5 cm LA dimension: 3.0 cm LVIDs: 3.2 cm LVPWd: 0.79 cm EDV(Teich): 91.7 ml ESV(Teich): 40.8 ml Doppler Measurements & Calculations MV E max zana: 53.8 cm/sec TR max zana: 215.8 cm/sec MV A max zana: 80.9 cm/sec TR max P.7 mmHg MV E/A: 0.67 Med Peak E' Zana: 3.9 cm/sec Med E/e': 13.6 Lat Peak E' Zana: 5.3 cm/sec Lat E/e': 10.2 Procedure A two-dimensional transthoracic echocardiogram with color flow and Doppler was performed. Left Ventricle The left ventricular size, thickness and function are normal. The left ventricular ejection fraction is normal. E/A reversal consistent with but not diagnostic of poor LV compliance. The left ventricular w all motion is normal. Right Ventricle The right ventricle is normal in size and function. Atria Normal left and right atrial size and function. Mitral Valve There is mild mitral valve thickening. There is no mitral valve stenosis. There is mild mitral regurg itation. Tricuspid Valve There is mild tricuspid valve thickening. There is no tricuspid stenosis. There is mild tricuspid regurgitation. Right ventricular systolic pressure is normal. Aortic Valve The aortic valve is not well visualized. No hemodynamically significant valvular aortic stenosis. No aortic regurgitation is present. Pulmonic Valve The pulmonic valve is not well visualized. Great Vessels The aortic root is normal size. Pericardium/Pleura There is no pericardial effusion. Interpretation Summary The left ventricular size, thickness and function are normal The left ventricular wall motion is normal. There is mild tricuspid regurgitation. Right ventricular systolic pressure is normal. The left ventricular ejection fraction is normal. E/A reversal consistent with but not diagnostic of poor LV compliance There is mild mitral regurgitation. MD Lucius Vila 04/23/2018 04:55 PM
[2018-04-24] MEDS: PIPERACILLIN/TAZOB 3.375 GM 3.375 GM in DEXTROSE 5%-WATER - 50 ML IVPB SCH ×2 (01:03→09:50)
[2018-04-24 06:12] LABS: BASO % 0.7 % (0-2.0); EOS % 0.6 % (0-4.5); HEMATOCRIT 29.5 % (32.4-45.2); HEMOGLOBIN 9.3 GM/dL (10.7-15.3); LYMPH % 21.2 % (8-40); MCHC 31.5 g/dl (32.0-36.0); MEAN CELL VOLUME 69.8 fl (80-96); MEAN PLT VOLUME 8.4 fl (7.5-11.1); MONO % 8.9 % (3.8-10.2); NEUT % 68.6 % (42.8-82.8); PLATELET COUNT 378 K/MM3 (134-434); RBC 4.22 M/mm3 (3.60-5.2); RDW 17.1 % (11.6-15.6); WHITE BLOOD COUNT 9.5 K/mm3 (4.0-10.0)
[2018-04-24] MEDS: CARBIDOPA/LEVODOPA 25/100 TABLET (FP) NGT SCH ×3 (06:40→23:06)
[2018-04-24 06:49] LABS: ALBUMIN 2.3 g/dl (3.4-5.0); ALK PHOS 79 U/L (45-117); ANION GAP 6 MMOL/L (8-16); BILIRUBIN,TOTAL 0.2 mg/dL (0.2-1); BLOOD UREA NITROGEN 20 mg/dL (7-18); CALCIUM 7.8 mg/dL (8.5-10.1); CHLORIDE 108 mmol/L (98-107); CO2 28 mmol/L (21-32); CREATININE 0.8 mg/dL (0.55-1.3); GLUCOSE,RANDOM 170 mg/dL (74-106); MAGNESIUM 2.3 mg/dL (1.8-2.4); PHOSPHOROUS 2.4 mg/dL (2.5-4.9); POTASSIUM 4.2 mmol/L (3.5-5.1); SGOT/AST 16 U/L (15-37); SGPT/ALT 8 U/L (13-61); SODIUM 141 mmol/L (136-145); TOT PROT 6.2 g/dl (6.4-8.2)
--- NOTE | 2018-04-24 07:46 | PN ---
Physical Exam: SUBJECTIVE: Patient seen and examined at bedside. No acute events overnight. OBJECTIVE: Vital Signs Period Temp Pulse Resp BP Sys/Campbell Pulse Ox Last 24 Hr 98 F-98.3 F 64-82 12-16 92-120/50-69 99-99 GENERAL: Lethargic. Mumbling words. HEENT: AT/NC. NG tube in place. NECK: Supple LAD/JVD. LUNGS: CTA B/L. No wheezes noted. Symmetric chest rise. HEART: RRR. Normal S1, S2. No murmurs noted. ABDOMEN: Soft, NT/ND. +BS in all 4Qs. MUSCULOSKELETAL: No bony deformities or tenderness. No CVA tenderness. EXTREMITIES: No peripheral edema noted. 2+ pedal pulses. NEUROLOGICAL: Lethargic. Mumbling words. SKIN: Multiple scattered superficial decubitus ulcers, non bleeding, non- erythematous, non-infected. Laboratory Results - last 24 hr 04/23/18 04/23/18 04/23/18 05:30 05:30 09:10 WBC 9.7 RBC 4.49 Hgb 9.8 L Hct 31.1 L MCV 69.4 L MCH 21.8 L MCHC 31.5 L RDW 16.6 H Plt Count 320 D MPV 8.4 Absolute Neuts (auto) 6.7 Neutrophils % 69.4 Lymphocytes % 22.7 Monocytes % 7.1 Eosinophils % 0.4 Basophils % 0.4 Nucleated RBC % 0 Hypochromia 0 Platelet Estimate Normal Polychromasia 0 Poikilocytosis 0 Anisocytosis 2+ Microcytosis 2+ Macrocytosis 0 Target Cells 1+ Schistocytes 1+ Sodium 139 Potassium 4.1 Chloride 104 Carbon Dioxide 29 Anion Gap 6 L BUN 23 H Creatinine 1.0 Creat Clearance w eGFR 53.35 Random Glucose 188 H Calcium 7.9 L Phosphorus 2.8 Magnesium 2.3 Total Bilirubin 0.3 AST 16 ALT 8 L Alkaline Phosphatase 86 Total Protein 6.6 Albumin 2.4 L Urine Color Yellow Urine Appearance Cloudy Urine pH 6.0 Ur Specific [place] 1.016 Urine Protein Negative Urine Glucose (UA) Negative Urine Ketones Negative Urine Blood Negative Urine Nitrite Negative Urine Bilirubin Negative Urine Urobilinogen 2.0 H Ur Leukocyte Esterase Trace Urine WBC (Auto) 2 Urine RBC (Auto) None Ur Epithelial Cells Many Urine Mucus Rare Urine Yeast Few 04/24/18 04/24/18 05:30 05:30 WBC 9.5 RBC 4.22 Hgb 9.3 L Hct 29.5 L MCV 69.8 L MCH 22.0 L MCHC 31.5 L RDW 17.1 H Plt Count 378 MPV 8.4 Absolute Neuts (auto) 6.5 Neutrophils % 68.6 Lymphocytes % 21.2 Monocytes % 8.9 Eosinophils % 0.6 Basophils % 0.7 Nucleated RBC % 0 Hypochromia Platelet Estimate Polychromasia Poikilocytosis Anisocytosis Microcytosis Macrocytosis Target Cells Schistocytes Sodium 141 Potassium 4.2 Chloride 108 H Carbon Dioxide 28 Anion Gap 6 L BUN 20 H Creatinine 0.8 Creat Clearance w eGFR > 60 Random Glucose 170 H Calcium 7.8 L Phosphorus 2.4 L Magnesium 2.3 Total Bilirubin 0.2 AST 16 ALT 8 L Alkaline Phosphatase 79 Total Protein 6.2 L Albumin 2.3 L Urine Color Urine Appearance Urine pH Ur Specific [place] Urine Protein Urine Glucose (UA) Urine Ketones Urine Blood Urine Nitrite Urine Bilirubin Urine Urobilinogen Ur Leukocyte Esterase Urine WBC (Auto) Urine RBC (Auto) Ur Epithelial Cells Urine Mucus Urine Yeast Active Medications Generic Name Dose Route Start Last Admin Trade Name Freq PRN Reason Stop Dose Admin Calcium Carbonate/Cholecalciferol 1 tab 04/15/18 10:00 04/23/18 10:41 Os-Carmelo 500+D - NGT 1 tab DAILY VASYL Administration Carbidopa/Levodopa 2 each 04/15/18 06:00 04/24/18 06:40 Sinemet 25/100 - NGT 2 each TID VASYL Administration Piperacillin Sod/Tazobactam 50 mls @ 100 mls/hr 04/19/18 16:00 04/24/18 01:03 Sod 3.375 gm/ Dextrose IVPB 100 mls/hr Q8H-IV [facility]YL Administration Protocol ASSESSMENT/PLAN: 78 y/o female with PMH of parkinsons, dementia, HTN presents with weakness, lethargy, AMS presented to the ICU with septic shock 2/2 UTI. Neurology #Acute Metabolic Encephalopathy 2/2 septic shock -Lethargic. Mumbling words. -likely 2/2 UTI, blood cx also + for staph epi. -Neuro checks -Brain MRI showed no evidence of abnormal restricted diffusion in the brain to suggest acute or subacute infarction. Supratentorial chronic white matter microangiopathic ischemic changes, gliosis. -D/w neuro regarding pt's status #Parkinson's Dementia -Per neuro: c/w Sinemet -Hold Neupropatch Pulmonary -satting 100% on RA -cont to monitor SpO2 Cardiovascular #Hypotension 2/2 Septic shock due to UTI/bacteremia -BP stable overnight. BCx, UCx, U/A, CXR reordered. -Valsartan d/c'd as pt has been hypotensive. -Maintain MAP >65 -NS 1L, recheck BP ID #Septic shock 2/2 UTI/Diffuse colitis -Afebrile overnight; BCx neg x96 hrs (04/19), U/A showed 3+ LE and 36 WBC; lac 1.0 -CXR: No acute chest process seen. -Per ID, cont Zosyn 3.375 gm (Day 5); BCx neg (04/14), BCx neg (04/19) -BCx neg x24, UCx (04/23), U/A neg FEN -no IVf needed -recheck lytes in AM -Tube Feed Osmolite Lines -NGT Dispo -transfer to med-surg -Pt failed swallow eval. Discussed w/ pt's daughter regarding potential need for PEG tube if mental status does not improve. Also advised daughter to discuss goals of care with rest of family. Visit type - Emergency Visit Emergency Visit: Yes ED Registration Date: 04/13/18 Care time: The patient presented to the Emergency Department on the above date and was hospitalized for further evaluation of their emergent condition. - New Patient This patient is new to me today: No - Critical Care Critical Care patient: Yes Total Critical Care Time (in minutes): 36 Critical Care Statement: The care of this patient involved high complexity decision making to prevent further life threatening deterioration of the patient 's condition and/or to evaluate & treat vital organ system(s) failure or risk of failure.
[2018-04-24] MEDS ORDERED: DEXTROSE 5%-WATER - 50 ML IVPB ONE (09:42)
[2018-04-24] MEDS ORDERED: PIPERACILLIN/TAZOBACTAM 3.375 GM VIAL IVPB ONE (09:42)
[2018-04-24] MEDS: CALCIUM 500MG/VIT-D 200 UNITS COMBO TABLET (FP) NGT SCH (09:50)
--- NOTE | 2018-04-24 11:58 | PN ---
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, Physician History of Present Illness: More alert. Valsartan d/artemio due to hypotension. Enteral feeds through NGT as she is aspiration risk. - Current Medication List Current Medications: Active Medications Calcium Carbonate/Cholecalciferol (Os-Carmelo 500+D -) 1 tab NGT DAILY [facility] Last Admin: 04/24/18 09:50 Dose: 1 tab Carbidopa/Levodopa (Sinemet 25/100 -) 2 each NGT TID [facility] Last Admin: 04/24/18 06:40 Dose: 2 each Piperacillin Sod/Tazobactam (Sod 3.375 gm/ Dextrose) 50 mls @ 100 mls/hr IVPB Q8H-IV [facility]; Protocol Last Admin: 04/24/18 09:50 Dose: 100 mls/hr - Objective Vital Signs: Vital Signs Temperature 98.5 F 04/24/18 10:00 Pulse Rate 71 04/24/18 10:00 Respiratory Rate 21 H 04/24/18 10:00 Blood Pressure 100/59 L 04/24/18 10:00 O2 Sat by Pulse Oximetry (%) 98 04/24/18 10:00 Constitutional: Yes: No Distress, Calm, Thin Neck: Yes: Supple Cardiovascular: Yes: Regular Rate and Rhythm Respiratory: Yes: Regular, Diminished, Intubated Gastrointestinal: Yes: Soft, Hypoactive Bowel Sounds Edema: No Labs: CBC, BMP 04/24/18 05:30 04/24/18 05:30 INR, PTT INR 1.18 (0.83-1.09) H 04/15/18 15:40 - ....Imaging Chest X-ray: Report Reviewed (NAD) Problem List - Problems (1) Parkinson disease Code(s): G20 - PARKINSON'S DISEASE (2) Acute hypoxemic respiratory failure Code(s): J96.01 - ACUTE RESPIRATORY FAILURE WITH HYPOXIA (3) Altered mental status Code(s): R41.82 - ALTERED MENTAL STATUS, UNSPECIFIED Qualifiers: Altered mental status type: disorientation Qualified Code(s): R41.0 - Disorientation, unspecified (4) Bradycardia Code(s): R00.1 - BRADYCARDIA, UNSPECIFIED (5) E. coli UTI Code(s): N39.0 - URINARY TRACT INFECTION, SITE NOT SPECIFIED; B96.20 - UNSP ESCHERICHIA COLI THE CAUSE OF DISEASES CLASSD ELSWHR (6) Hypothermia Code(s): T68.XXXA - HYPOTHERMIA, INITIAL ENCOUNTER Qualifiers: Encounter type: subsequent encounter Qualified Code(s): T68.XXXD - Hypothermia, subsequent encounter Assessment/Plan Echocardiography dated 07/02/2017 revealed normal LV size and function with diastolic LV dysfunction 1. s/p acute hypoxic respiratory failure/resolved with underlying chronic lung disease, probable pneumonia with sepsis syndrome 2. CAD angina pectoris 3. Diastolic LV dysfunction with clinical class 0-I NYHA classification LV failure, compensated/euvolemic 4. Hypertension 5. Parkinson's disease/dementia, with altered mental status related to probable sepsis syndrome, MRI brain performed await results 6. Bradycardia improved (cannot exclude underlying sinus node dysfunction) and hypothermia since resolved, related to sepsis syndrome 7. CKD 8. UTI/sepsis syndrome, resolved 9. Sacral decubitus 10. Hypernatremia, resolved 11. Anemia 12. Aspiration risk PLAN: 1. Resume Diovan 40 qd once hemodynamics tolerate 2. As outlined in prior notes avoid B-Blockers related to the above noted bradycardia (cannot exclude underlying sinus node dysfunction) 3. Antibiotics as per the primary team/ID team 4. As outlined in prior notes may be transferred to floor care from the cardiovascular point of view 5. Enteral feeds for now, ? PEG
--- NOTE | 2018-04-24 12:38 | PN ---
Teaching Attending Note Name of Resident: Yajaira Dillard ATTENDING PHYSICIAN STATEMENT I saw and evaluated the patient. I reviewed the resident's note and discussed the case with the resident. I agree with the resident's findings and plan as documented. SUBJECTIVE: Pt seen and examined in the ICU. Mental status unchanged. No fevers recorded. OBJECTIVE: Vital Signs Period Temp Pulse Resp BP Sys/Campbell Pulse Ox Last 24 Hr 98 F-98.5 F 64-82 12-24 92-120/50-95 98-99 Intake & Output 04/21/18 04/22/18 04/23/18 04/24/18 23:59 23:59 23:59 23:59 Intake Total 100 1769 1020 1892 Balance 100 1769 1020 1892 Weight 63.4 kg 61.263 kg 60.838 kg 62.227 kg Gen: somnolent but in NAD Heart: RRR Lung: decreased breath sounds at the bases Abd: soft, nontender Ext: no edema CBC, BMP 04/24/18 05:30 04/24/18 05:30 Active Medications Calcium Carbonate/Cholecalciferol (Os-Carmelo 500+D -) 1 tab NGT DAILY [facility] Carbidopa/Levodopa (Sinemet 25/100 -) 2 each NGT TID [facility] Piperacillin Sod/Tazobactam (Sod 3.375 gm/ Dextrose) 50 mls @ 100 mls/hr IVPB Q8H-IV [facility]; Protocol ASSESSMENT AND PLAN: s/p Acute Hypoxic Respiratory Failure UTI Staph Bacteremia Septic Shock resolved Bradycardia improved CAD LV Diastolic Dysfunction CKD Thrombocytopenia Parkinsons Disease - IV boluses as needed - antibiotics per ID - O2 to keep SpO2 >90% - aspiration precautions - will need PEG placement - neuro f/u - DVT prophylaxis - can monitor on floor
--- NOTE | 2018-04-24 14:58 | PN ---
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, Physician History of Present Illness: stable no new issues mentally more better - Current Medication List Current Medications: Active Medications Calcium Carbonate/Cholecalciferol (Os-Carmelo 500+D -) 1 tab NGT DAILY [facility] Carbidopa/Levodopa (Sinemet 25/100 -) 2 each NGT TID [facility] - Objective Vital Signs: Vital Signs Temperature 98.5 F 04/24/18 10:00 Pulse Rate 75 04/24/18 12:00 Respiratory Rate 24 H 04/24/18 12:00 Blood Pressure 111/95 04/24/18 12:00 O2 Sat by Pulse Oximetry (%) 98 04/24/18 10:00 Constitutional: Yes: No Distress, Calm Cardiovascular: Yes: S1, S2 Respiratory: Yes: Regular, CTA Bilaterally Gastrointestinal: Yes: Normal Bowel Sounds, Soft, Other (ng tube in place) Musculoskeletal: Yes: WNL Extremities: Yes: WNL Neurological: Yes: Alert, Oriented Psychiatric: Yes: Alert, Oriented Labs: CBC, BMP 04/24/18 05:30 04/24/18 05:30 INR, PTT INR 1.18 (0.83-1.09) H 04/15/18 15:40 Assessment/Plan Sepsis due to UTI / PNA / Colitis Metabolic Encephalopathy Bradycardia Diarrhea GI Bleed Anemia HTN Sacral decubitus ulcer Parkinson's sepsis lethargy weakness hypothermia uti plan continue as per icu neurology continue abx nutrition rest as per the team as per gi will stop abx cc 35 min
--- NOTE | 2018-04-24 15:01 | PN ---
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, CLINICAL ESTHETICIAN - Note 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: Performance unchanged. Swallowing not functional at present.Prognosis quite guarded for functional recovery. Consider Palliative Care (End of life wishes- Pt is full code. PEG? Hospice? To reassess swallowing if pt improves Continue NGT feeding for now
[2018-04-24] MEDS ORDERED: PIPERACILLIN/TAZOB 3.375 GM 3.375 GM in DEXTROSE 5%-WATER - 50 ML IVPB SCH (18:00)
--- NOTE | 2018-04-24 18:49 | PN ---
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, Physician History of Present Illness: much better responding to questions - Current Medication List Current Medications: Active Medications Calcium Carbonate/Cholecalciferol (Os-Carmelo 500+D -) 1 tab NGT DAILY [facility] Carbidopa/Levodopa (Sinemet 25/100 -) 2 each NGT TID AVSYL - Objective Vital Signs: Vital Signs Temperature 97.5 F L 04/24/18 16:00 Pulse Rate 63 04/24/18 16:00 Respiratory Rate 20 04/24/18 16:00 Blood Pressure 106/61 04/24/18 16:00 O2 Sat by Pulse Oximetry (%) 98 04/24/18 10:00 Constitutional: Yes: No Distress HENT: Yes: Atraumatic Neck: Yes: Supple Cardiovascular: Yes: Regular Rate and Rhythm Respiratory: Yes: CTA Bilaterally Gastrointestinal: Yes: Normal Bowel Sounds Extremities: Yes: WNL Edema: No Peripheral Pulses WNL: Yes Neurological: Yes: Alert, Oriented Labs: CBC, BMP 04/24/18 05:30 04/24/18 05:30 INR, PTT INR 1.18 (0.83-1.09) H 04/15/18 15:40 Problem List - Problems (1) Parkinson disease Assessment/Plan: on meds stable Code(s): G20 - PARKINSON'S DISEASE (2) Sepsis Assessment/Plan: on iv abx new cxs negative Code(s): A41.9 - SEPSIS, UNSPECIFIED ORGANISM (3) Urinary tract infection Assessment/Plan: iv abx new cxs negative to date Code(s): N39.0 - URINARY TRACT INFECTION, SITE NOT SPECIFIED (4) Altered mental status Assessment/Plan: more alert now responding to questions on tubefeeds Code(s): R41.82 - ALTERED MENTAL STATUS, UNSPECIFIED Qualifiers: Altered mental status type: disorientation Qualified Code(s): R41.0 - Disorientation, unspecified (5) Hypothermia Assessment/Plan: resolved Code(s): T68.XXXA - HYPOTHERMIA, INITIAL ENCOUNTER Qualifiers: Encounter type: subsequent encounter Qualified Code(s): T68.XXXD - Hypothermia, subsequent encounter (6) Rectal bleeding Assessment/Plan: resolved Code(s): K62.5 - HEMORRHAGE OF ANUS AND RECTUM
[2018-04-24] MEDS: SODIUM CHLORIDE 1,000 ML IV SCH (22:35)
[2018-04-25] MEDS ORDERED: CALCIUM 500MG/VIT-D 200 UNITS COMBO TABLET (FP) NGT SCH (10:00)
--- NOTE | 2018-04-25 13:25 | PN ---
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, Physician History of Present Illness: stable improving mental status no fevers - Current Medication List Current Medications: Active Medications Calcium Carbonate/Cholecalciferol (Os-Carmelo 500+D -) 1 tab NGT DAILY [facility] Carbidopa/Levodopa (Sinemet 25/100 -) 2 each NGT TID [facility] Heparin Sodium (Porcine) (Heparin -) 5,000 unit SQ BID V[facility]YL Sodium Chloride (Normal Saline -) 1,000 mls @ 50 mls/hr IV ASDIR [facility] Last Admin: 04/24/18 22:35 Dose: 50 mls/hr - Objective Vital Signs: Vital Signs Temperature 98.6 F 04/25/18 10:08 Pulse Rate 89 04/25/18 10:08 Respiratory Rate 18 04/25/18 10:08 Blood Pressure 92/48 L 04/25/18 10:08 O2 Sat by Pulse Oximetry (%) 97 04/24/18 21:00 Constitutional: Yes: No Distress, Calm Cardiovascular: Yes: S1, S2 Respiratory: Yes: Regular, CTA Bilaterally, On Nasal O2 Gastrointestinal: Yes: Normal Bowel Sounds, Soft Musculoskeletal: Yes: WNL Extremities: Yes: WNL Neurological: Yes: Alert, Confusion, Other Labs: CBC, BMP 04/24/18 05:30 04/24/18 05:30 INR, PTT INR 1.18 (0.83-1.09) H 04/15/18 15:40 Assessment/Plan Sepsis due to UTI / PNA / Colitis Metabolic Encephalopathy Bradycardia Diarrhea GI Bleed Anemia HTN Sacral decubitus ulcer Parkinson's sepsis lethargy weakness hypothermia uti plan continue current mgmt will consider deescalating abx monitor mental status rest as per the team nutrition
[2018-04-25] MEDS: CARBIDOPA/LEVODOPA 25/100 TABLET (FP) NGT SCH ×2 (13:28→23:18)
[2018-04-25 14:07] LABS: EOS % 0.6 % (0-4.5); HEMATOCRIT 28.6 % (32.4-45.2); HEMOGLOBIN 9.6 GM/dL (10.7-15.3); MCH 23.1 pg (25.7-33.7); MCHC 33.4 g/dl (32.0-36.0); MEAN CELL VOLUME 69.3 fl (80-96); MEAN PLT VOLUME 8.3 fl (7.5-11.1); MONO % 9.6 % (3.8-10.2); NEUT % 63.8 % (42.8-82.8); PLATELET COUNT 476 K/MM3 (134-434); RBC 4.13 M/mm3 (3.60-5.2); RDW 16.6 % (11.6-15.6); WHITE BLOOD COUNT 9.2 K/mm3 (4.0-10.0)
[2018-04-25 14:34] LABS: ALBUMIN 2.3 g/dl (3.4-5.0); ALK PHOS 77 U/L (45-117); ANION GAP 5 MMOL/L (8-16); BILIRUBIN,TOTAL 0.2 mg/dL (0.2-1); BLOOD UREA NITROGEN 19 mg/dL (7-18); CALCIUM 7.7 mg/dL (8.5-10.1); CHLORIDE 106 mmol/L (98-107); CO2 28 mmol/L (21-32); CREATININE 0.8 mg/dL (0.55-1.3); GLUCOSE,RANDOM 170 mg/dL (74-106); POTASSIUM 4.3 mmol/L (3.5-5.1); SGOT/AST 23 U/L (15-37); SGPT/ALT 11 U/L (13-61); SODIUM 139 mmol/L (136-145); TOT PROT 6.1 g/dl (6.4-8.2)
--- NOTE | 2018-04-25 15:03 | PN ---
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, Physician History of Present Illness: Arousable. Valsartan d/artemio due to hypotension. Enteral feeds through NGT as she is aspiration risk. - Current Medication List Current Medications: Active Medications Calcium Carbonate/Cholecalciferol (Os-Carmelo 500+D -) 1 tab NGT DAILY [facility] Carbidopa/Levodopa (Sinemet 25/100 -) 2 each NGT TID [facility] Last Admin: 04/25/18 13:28 Dose: 2 each Heparin Sodium (Porcine) (Heparin -) 5,000 unit SQ BID V[facility] Sodium Chloride (Normal Saline -) 1,000 mls @ 50 mls/hr IV ASDIR [facility] Last Admin: 04/24/18 22:35 Dose: 50 mls/hr - Objective Vital Signs: Vital Signs Temperature 98.6 F 04/25/18 10:08 Pulse Rate 89 04/25/18 10:08 Respiratory Rate 18 04/25/18 10:08 Blood Pressure 92/48 L 04/25/18 10:08 O2 Sat by Pulse Oximetry (%) 96 04/25/18 10:00 Constitutional: Yes: No Distress, Calm, Thin Neck: Yes: Supple Cardiovascular: Yes: Regular Rate and Rhythm Respiratory: Yes: Regular, Diminished, On Nasal O2 Gastrointestinal: Yes: Soft, Hypoactive Bowel Sounds Edema: No Labs: CBC, BMP 04/25/18 13:33 04/25/18 13:33 INR, PTT INR 1.18 (0.83-1.09) H 04/15/18 15:40 Problem List - Problems (1) Parkinson disease Code(s): G20 - PARKINSON'S DISEASE (2) Acute hypoxemic respiratory failure Code(s): J96.01 - ACUTE RESPIRATORY FAILURE WITH HYPOXIA (3) Altered mental status Code(s): R41.82 - ALTERED MENTAL STATUS, UNSPECIFIED Qualifiers: Altered mental status type: disorientation Qualified Code(s): R41.0 - Disorientation, unspecified (4) Bradycardia Code(s): R00.1 - BRADYCARDIA, UNSPECIFIED (5) E. coli UTI Code(s): N39.0 - URINARY TRACT INFECTION, SITE NOT SPECIFIED; B96.20 - UNSP ESCHERICHIA COLI THE CAUSE OF DISEASES CLASSD ELSWHR (6) Hypothermia Code(s): T68.XXXA - HYPOTHERMIA, INITIAL ENCOUNTER Qualifiers: Encounter type: subsequent encounter Qualified Code(s): T68.XXXD - Hypothermia, subsequent encounter Assessment/Plan Echocardiography dated 07/02/2017 revealed normal LV size and function with diastolic LV dysfunction 1. s/p acute hypoxic respiratory failure/resolved with underlying chronic lung disease, probable pneumonia with sepsis syndrome 2. CAD angina pectoris 3. Diastolic LV dysfunction with clinical class 0-I NYHA classification LV failure, compensated/euvolemic 4. Hypertension 5. Parkinson's disease/dementia, with altered mental status related to probable sepsis syndrome, MRI brain performed await results 6. Bradycardia improved (cannot exclude underlying sinus node dysfunction) and hypothermia since resolved, related to sepsis syndrome 7. CKD 8. UTI/sepsis syndrome, resolved 9. Sacral decubitus 10. Hypernatremia, resolved 11. Anemia 12. Aspiration risk PLAN: 1. Resume Diovan 40 qd once hemodynamics tolerate 2. As outlined in prior notes avoid B-Blockers related to the above noted bradycardia (cannot exclude underlying sinus node dysfunction) 3. Completed antibiotic course as per the primary team/ID team 4. Enteral feeds for now, ? PEG, DVT prophylaxis
--- NOTE | 2018-04-25 18:17 | PN ---
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, Physician History of Present Illness: arousable - Current Medication List Current Medications: Active Medications Calcium Carbonate/Cholecalciferol (Os-Carmelo 500+D -) 1 tab NGT DAILY [facility] Carbidopa/Levodopa (Sinemet 25/100 -) 2 each NGT TID [facility] Last Admin: 04/25/18 13:28 Dose: 2 each Heparin Sodium (Porcine) (Heparin -) 5,000 unit SQ BID [facility] Sodium Chloride (Normal Saline -) 1,000 mls @ 50 mls/hr IV ASDIR [facility] Last Admin: 04/24/18 22:35 Dose: 50 mls/hr - Objective Vital Signs: Vital Signs Temperature 99.3 F 04/25/18 14:25 Pulse Rate 87 04/25/18 14:25 Respiratory Rate 16 04/25/18 14:25 Blood Pressure 113/63 04/25/18 14:25 O2 Sat by Pulse Oximetry (%) 97 04/25/18 16:00 Constitutional: Yes: No Distress HENT: Yes: Atraumatic Neck: Yes: Supple Cardiovascular: Yes: Regular Rate and Rhythm Respiratory: Yes: Rhonchi Gastrointestinal: Yes: Normal Bowel Sounds Extremities: Yes: WNL Edema: LLE: Trace, RLE: Trace Neurological: Yes: Lethargy Labs: CBC, BMP 04/25/18 13:33 04/25/18 13:33 INR, PTT INR 1.18 (0.83-1.09) H 04/15/18 15:40 Problem List - Problems (1) Parkinson disease Assessment/Plan: on meds stable Code(s): G20 - PARKINSON'S DISEASE (2) Sepsis Assessment/Plan: completed abx no fever Code(s): A41.9 - SEPSIS, UNSPECIFIED ORGANISM (3) Urinary tract infection Assessment/Plan: cxs negative Code(s): N39.0 - URINARY TRACT INFECTION, SITE NOT SPECIFIED (4) Altered mental status Assessment/Plan: much improved on tubefeeds Code(s): R41.82 - ALTERED MENTAL STATUS, UNSPECIFIED Qualifiers: Altered mental status type: disorientation Qualified Code(s): R41.0 - Disorientation, unspecified (5) Hypothermia Assessment/Plan: resolved Code(s): T68.XXXA - HYPOTHERMIA, INITIAL ENCOUNTER Qualifiers: Encounter type: subsequent encounter Qualified Code(s): T68.XXXD - Hypothermia, subsequent encounter (6) Rectal bleeding Assessment/Plan: resolved Code(s): K62.5 - HEMORRHAGE OF ANUS AND RECTUM
[2018-04-25] MEDS ORDERED: PT OWN MED DRAWER 7, Y5N ONE (21:41)
[2018-04-25] MEDS: HEPARIN NA (PORCINE) 5,000 UNITS/ML 1ML VIAL SQ SCH (21:44)
[2018-04-25] MEDS: SODIUM CHLORIDE 1,000 ML IV SCH (21:45)
[2018-04-26] MEDS: CARBIDOPA/LEVODOPA 25/100 TABLET (FP) NGT SCH ×3 (05:21→21:31)
[2018-04-26] MEDS: HEPARIN NA (PORCINE) 5,000 UNITS/ML 1ML VIAL SQ SCH ×2 (10:32→21:30)
[2018-04-26] MEDS: CALCIUM 500MG/VIT-D 200 UNITS COMBO TABLET (FP) NGT SCH (10:32)
--- NOTE | 2018-04-26 11:55 | PN ---
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, Physician Chief Complaint: Events noted Lethargic but arousable History of Present Illness: Patient was seen and examined. Chart was reviewed On tube feed - Current Medication List Current Medications: Active Medications Calcium Carbonate/Cholecalciferol (Os-Carmelo 500+D -) 1 tab NGT DAILY [facility] Last Admin: 04/26/18 10:32 Dose: 1 tab Carbidopa/Levodopa (Sinemet 25/100 -) 2 each NGT TID [facility] Last Admin: 04/26/18 05:21 Dose: 2 each Heparin Sodium (Porcine) (Heparin -) 5,000 unit SQ BID [facility] Last Admin: 04/26/18 10:32 Dose: 5,000 unit Sodium Chloride (Normal Saline -) 1,000 mls @ 50 mls/hr IV ASDIR [facility] Last Admin: 04/25/18 21:45 Dose: 50 mls/hr - Objective Vital Signs: Vital Signs Temperature 98.9 F 04/26/18 08:47 Pulse Rate 80 04/26/18 08:47 Respiratory Rate 20 04/26/18 08:47 Blood Pressure 109/65 04/26/18 08:47 O2 Sat by Pulse Oximetry (%) 95 04/25/18 21:00 Neck: Yes: Supple Cardiovascular: Yes: Regular Rate and Rhythm, S1, S2 Respiratory: Yes: Diminished Gastrointestinal: Yes: Normal Bowel Sounds, Soft. No: Tenderness Edema: No Labs: CBC, BMP 04/25/18 13:33 04/25/18 13:33 Problem List - Problems (1) Parkinson disease Code(s): G20 - PARKINSON'S DISEASE (2) Sepsis Code(s): A41.9 - SEPSIS, UNSPECIFIED ORGANISM (3) Acute hypoxemic respiratory failure Code(s): J96.01 - ACUTE RESPIRATORY FAILURE WITH HYPOXIA (4) Vodag-wp-aupcvaf kidney injury Code(s): N17.9 - ACUTE KIDNEY FAILURE, UNSPECIFIED; N18.9 - CHRONIC KIDNEY DISEASE, UNSPECIFIED Qualifiers: Acute renal failure type: unspecified (5) Altered mental status Code(s): R41.82 - ALTERED MENTAL STATUS, UNSPECIFIED Qualifiers: Altered mental status type: disorientation Qualified Code(s): R41.0 - Disorientation, unspecified (6) Bradycardia Code(s): R00.1 - BRADYCARDIA, UNSPECIFIED (7) HTN (hypertension) Code(s): I10 - ESSENTIAL (PRIMARY) HYPERTENSION Qualifiers: Hypertension type: essential hypertension Qualified Code(s): I10 - Essential (primary) hypertension (8) Hypothermia Code(s): T68.XXXA - HYPOTHERMIA, INITIAL ENCOUNTER Qualifiers: Encounter type: subsequent encounter Qualified Code(s): T68.XXXD - Hypothermia, subsequent encounter Assessment/Plan 1. Acute hypoxic respiratory failure/resolved with underlying chronic lung disease, probable pneumonia with sepsis syndrome 2. CAD angina pectoris 3. Diastolic LV dysfunction with clinical class 0-I NYHA classification LV failure, compensated/euvolemic 4. Hypertension 5. Parkinson's disease/dementia, with altered mental status related to probable sepsis syndrome 6. Bradycardia improved (cannot exclude underlying sinus node dysfunction) and hypothermia since resolved, related to sepsis syndrome 7. CKD 8. UTI/sepsis syndrome 9. Sacral decubitus 10. Hypernatremia 11. Anemia 12. Aspiration risk PLAN: 1. Continue Diovan 40 mg QD once hemodynamics tolerate 2. Avoid B-Blockers in view of bradycardia 3. Enteral feeds for now, ? PEG 4. DVT prophylaxis Continue supportive care.Further plans are to follow Jonathon Hanna MD
[2018-04-26] MEDS ORDERED: PT OWN MED DRAWER 7, Y5N ONE ×2 (14:13→19:39)
[2018-04-26] MEDS: SODIUM CHLORIDE 1,000 ML IV SCH ×2 (15:11→21:31)
--- NOTE | 2018-04-26 17:41 | PN ---
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, Physician History of Present Illness: No new changes - Current Medication List Current Medications: Active Medications Calcium Carbonate/Cholecalciferol (Os-Carmelo 500+D -) 1 tab NGT DAILY [facility] Last Admin: 04/26/18 10:32 Dose: 1 tab Carbidopa/Levodopa (Sinemet 25/100 -) 2 each NGT TID [facility] Last Admin: 04/26/18 14:40 Dose: 2 each Heparin Sodium (Porcine) (Heparin -) 5,000 unit SQ BID [facility] Last Admin: 04/26/18 10:32 Dose: 5,000 unit Sodium Chloride (Normal Saline -) 1,000 mls @ 50 mls/hr IV ASDIR [facility] Last Admin: 04/26/18 15:11 Dose: 50 mls/hr - Objective Vital Signs: Vital Signs Temperature 97.9 F 04/26/18 14:10 Pulse Rate 79 04/26/18 14:10 Respiratory Rate 18 04/26/18 14:10 Blood Pressure 110/64 04/26/18 14:10 O2 Sat by Pulse Oximetry (%) 95 04/26/18 09:00 HENT: Yes: Other ((+) NGT feedings) Cardiovascular: Yes: WNL, Regular Rate and Rhythm Respiratory: Yes: Diminished Gastrointestinal: Yes: WNL, Normal Bowel Sounds, Soft Labs: CBC, BMP 04/25/18 13:33 04/25/18 13:33 INR, PTT INR 1.18 (0.83-1.09) H 04/15/18 15:40 Problem List - Problems (1) Parkinson disease Code(s): G20 - PARKINSON'S DISEASE (2) Sepsis Code(s): A41.9 - SEPSIS, UNSPECIFIED ORGANISM (3) Acute hypoxemic respiratory failure Code(s): J96.01 - ACUTE RESPIRATORY FAILURE WITH HYPOXIA (4) Kvxvk-bh-lmljzev kidney injury Code(s): N17.9 - ACUTE KIDNEY FAILURE, UNSPECIFIED; N18.9 - CHRONIC KIDNEY DISEASE, UNSPECIFIED Qualifiers: Acute renal failure type: unspecified
[2018-04-27] MEDS: ACETAMINOPHEN 650 MG/20.3 ML ORAL SOLUTION (CUPS) NGT PRN (01:45)
[2018-04-27 02:14] LABS: HEMATOCRIT 28.6 % (32.4-45.2); HEMOGLOBIN 9.5 GM/dL (10.7-15.3); MCHC 33.3 g/dl (32.0-36.0); MEAN CELL VOLUME 69.1 fl (80-96); MEAN PLT VOLUME 8.4 fl (7.5-11.1); PLATELET COUNT 517 K/MM3 (134-434); RBC 4.14 M/mm3 (3.60-5.2); RDW 16.5 % (11.6-15.6); WHITE BLOOD COUNT 8.5 K/mm3 (4.0-10.0)
[2018-04-27 02:20] LABS: URINE APPEARANCE CLEAR; URINE BILIRUBIN NEGATIVE (<2.0 mg/dL); URINE COLOR STRAW; URINE GLUCOSE (UA) NEGATIVE (NEGATIVE); URINE KETONE NEGATIVE (NEGATIVE); URINE LEUK ESTERASE TRACE (NEGATIVE); URINE NITRITE NEGATIVE (NEGATIVE); URINE PROTEIN NEGATIVE (NEGATIVE); URINE UROBILINOGEN NEGATIVE mg/dL (0.2-1.0)
[2018-04-27 02:28] LABS: EPI CELLS RARE /HPF (FEW)
[2018-04-27 02:39] LABS: ALBUMIN 2.4 g/dl (3.4-5.0); ALK PHOS 77 U/L (45-117); ANION GAP 8 MMOL/L (8-16); BILIRUBIN,TOTAL 0.2 mg/dL (0.2-1); BLOOD UREA NITROGEN 17 mg/dL (7-18); CALCIUM 7.9 mg/dL (8.5-10.1); CHLORIDE 108 mmol/L (98-107); CO2 26 mmol/L (21-32); CREATININE 0.7 mg/dL (0.55-1.3); GLUCOSE,RANDOM 126 mg/dL (74-106); POTASSIUM 4.4 mmol/L (3.5-5.1); SGOT/AST 24 U/L (15-37); SGPT/ALT 10 U/L (13-61); SODIUM 142 mmol/L (136-145); TOT PROT 6.4 g/dl (6.4-8.2)
[2018-04-27] MEDS ORDERED: PT OWN MED DRAWER 7, Y5N ONE ×4 (05:03→21:11)
[2018-04-27] MEDS: CARBIDOPA/LEVODOPA 25/100 TABLET (FP) NGT SCH ×3 (05:07→21:32)
[2018-04-27] MEDS: HEPARIN NA (PORCINE) 5,000 UNITS/ML 1ML VIAL SQ SCH ×2 (09:48→21:32)
[2018-04-27] MEDS: CALCIUM 500MG/VIT-D 200 UNITS COMBO TABLET (FP) NGT SCH (09:48)
--- NOTE | 2018-04-27 10:54 | PN ---
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, Physician Chief Complaint: Events noted Lethargic History of Present Illness: Patient was seen and examined. Chart was reviewed - Current Medication List Current Medications: Active Medications Acetaminophen (Tylenol Oral Solution -) 650 mg NGT Q6H PRN PRN Reason: FEVER Last Admin: 04/27/18 01:45 Dose: 650 mg Calcium Carbonate/Cholecalciferol (Os-Carmelo 500+D -) 1 tab NGT DAILY [facility] Last Admin: 04/27/18 09:48 Dose: 1 tab Carbidopa/Levodopa (Sinemet 25/100 -) 2 each NGT TID [facility] Last Admin: 04/27/18 05:07 Dose: 2 each Heparin Sodium (Porcine) (Heparin -) 5,000 unit SQ BID [facility] Last Admin: 04/27/18 09:48 Dose: 5,000 unit Sodium Chloride (Normal Saline -) 1,000 mls @ 50 mls/hr IV ASDIR [facility] Last Admin: 04/26/18 21:31 Dose: Not Given - Objective Vital Signs: Vital Signs Temperature 99.9 F H 04/27/18 09:53 Pulse Rate 80 04/27/18 09:53 Respiratory Rate 18 04/27/18 09:53 Blood Pressure 124/73 04/27/18 09:53 O2 Sat by Pulse Oximetry (%) 97 04/27/18 09:54 Cardiovascular: Yes: Regular Rate and Rhythm, S1, S2 Respiratory: Yes: Diminished Gastrointestinal: Yes: Normal Bowel Sounds, Soft. No: Tenderness Edema: No Labs: CBC, BMP 04/27/18 01:45 04/27/18 01:45 Problem List - Problems (1) Parkinson disease Code(s): G20 - PARKINSON'S DISEASE (2) Sepsis Code(s): A41.9 - SEPSIS, UNSPECIFIED ORGANISM (3) Acute hypoxemic respiratory failure Code(s): J96.01 - ACUTE RESPIRATORY FAILURE WITH HYPOXIA (4) Kjvbv-tw-okvnuil kidney injury Code(s): N17.9 - ACUTE KIDNEY FAILURE, UNSPECIFIED; N18.9 - CHRONIC KIDNEY DISEASE, UNSPECIFIED Qualifiers: Acute renal failure type: unspecified (5) Altered mental status Code(s): R41.82 - ALTERED MENTAL STATUS, UNSPECIFIED Qualifiers: Altered mental status type: disorientation Qualified Code(s): R41.0 - Disorientation, unspecified (6) Bradycardia Code(s): R00.1 - BRADYCARDIA, UNSPECIFIED (7) HTN (hypertension) Code(s): I10 - ESSENTIAL (PRIMARY) HYPERTENSION Qualifiers: Hypertension type: essential hypertension Qualified Code(s): I10 - Essential (primary) hypertension (8) Hypothermia Code(s): T68.XXXA - HYPOTHERMIA, INITIAL ENCOUNTER Qualifiers: Encounter type: subsequent encounter Qualified Code(s): T68.XXXD - Hypothermia, subsequent encounter Assessment/Plan 1. Acute hypoxic respiratory failure/resolved with underlying chronic lung disease, probable pneumonia with sepsis syndrome 2. CAD angina pectoris 3. Diastolic LV dysfunction with clinical class 0-I NYHA classification LV failure, compensated/euvolemic 4. Hypertension 5. Parkinson's disease/dementia, with altered mental status related to probable sepsis syndrome 6. Bradycardia improved (cannot exclude underlying sinus node dysfunction) and hypothermia since resolved, related to sepsis syndrome 7. CKD 8. UTI/sepsis syndrome 9. Sacral decubitus 10. Hypernatremia 11. Anemia 12. Aspiration risk PLAN: 1. Currently not on any cardiac medications. May consider ARB as described on previous note if clinically indicated 2. Avoid B-Blockers in view of bradycardia 3. Enteral feeds for now, ? PEG 4. DVT prophylaxis Continue supportive care.Further plans are to follow Jonathon Hanna MD
--- NOTE | 2018-04-27 14:00 | PN ---
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, Physician History of Present Illness: still with lethargy mental status still not at baseline according to family - Current Medication List Current Medications: Active Medications Acetaminophen (Tylenol Oral Solution -) 650 mg NGT Q6H PRN PRN Reason: FEVER Last Admin: 04/27/18 01:45 Dose: 650 mg Calcium Carbonate/Cholecalciferol (Os-Carmelo 500+D -) 1 tab NGT DAILY [facility] Last Admin: 04/27/18 09:48 Dose: 1 tab Carbidopa/Levodopa (Sinemet 25/100 -) 2 each NGT TID [facility] Last Admin: 04/27/18 05:07 Dose: 2 each Heparin Sodium (Porcine) (Heparin -) 5,000 unit SQ BID [facility] Last Admin: 04/27/18 09:48 Dose: 5,000 unit Sodium Chloride (Normal Saline -) 1,000 mls @ 50 mls/hr IV ASDIR [facility] Last Admin: 04/26/18 21:31 Dose: Not Given - Objective Vital Signs: Vital Signs Temperature 99.9 F H 04/27/18 09:53 Pulse Rate 80 04/27/18 09:53 Respiratory Rate 18 04/27/18 09:53 Blood Pressure 124/73 04/27/18 09:53 O2 Sat by Pulse Oximetry (%) 97 04/27/18 09:54 Constitutional: Yes: No Distress, Calm Cardiovascular: Yes: S1, S2 Respiratory: Yes: Regular, CTA Bilaterally Gastrointestinal: Yes: Normal Bowel Sounds, Soft Musculoskeletal: Yes: WNL Extremities: Yes: WNL Neurological: Yes: Alert, Confusion Labs: CBC, BMP 04/27/18 01:45 04/27/18 01:45 INR, PTT INR 1.18 (0.83-1.09) H 04/15/18 15:40 Assessment/Plan Sepsis due to UTI / PNA / Colitis Metabolic Encephalopathy Bradycardia Diarrhea GI Bleed Anemia HTN Sacral decubitus ulcer Parkinson's sepsis lethargy weakness hypothermia uti plan continue current mgmt will stop abx monitor mental status rest as per the team nutrition
--- NOTE | 2018-04-27 20:09 | PN ---
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, Physician History of Present Illness: No new changes - Current Medication List Current Medications: Active Medications Acetaminophen (Tylenol Oral Solution -) 650 mg NGT Q6H PRN PRN Reason: FEVER Last Admin: 04/27/18 01:45 Dose: 650 mg Calcium Carbonate/Cholecalciferol (Os-Carmelo 500+D -) 1 tab NGT DAILY [facility] Last Admin: 04/27/18 09:48 Dose: 1 tab Carbidopa/Levodopa (Sinemet 25/100 -) 2 each NGT TID [facility] Last Admin: 04/27/18 14:51 Dose: 2 each Heparin Sodium (Porcine) (Heparin -) 5,000 unit SQ BID [facility] Last Admin: 04/27/18 09:48 Dose: 5,000 unit Sodium Chloride (Normal Saline -) 1,000 mls @ 50 mls/hr IV ASDIR [facility] Last Admin: 04/26/18 21:31 Dose: Not Given - Objective Vital Signs: Vital Signs Temperature 97.6 F 04/27/18 18:00 Pulse Rate 86 04/27/18 18:00 Respiratory Rate 18 04/27/18 18:00 Blood Pressure 121/77 04/27/18 18:00 O2 Sat by Pulse Oximetry (%) 97 04/27/18 09:54 HENT: Yes: Other ((+) feeding tube) Cardiovascular: Yes: WNL, Regular Rate and Rhythm Respiratory: Yes: Diminished Gastrointestinal: Yes: WNL, Normal Bowel Sounds, Soft Labs: CBC, BMP 04/27/18 01:45 04/27/18 01:45 INR, PTT INR 1.18 (0.83-1.09) H 04/15/18 15:40 Problem List - Problems (1) Sepsis Assessment/Plan: Cont enteral feeds ?PEG ?Supportive care Pt is off antibxs Code(s): A41.9 - SEPSIS, UNSPECIFIED ORGANISM (2) Parkinson disease Code(s): G20 - PARKINSON'S DISEASE (3) Acute hypoxemic respiratory failure Code(s): J96.01 - ACUTE RESPIRATORY FAILURE WITH HYPOXIA (4) Kzkcw-tr-bkrcmgo kidney injury Code(s): N17.9 - ACUTE KIDNEY FAILURE, UNSPECIFIED; N18.9 - CHRONIC KIDNEY DISEASE, UNSPECIFIED Qualifiers: Acute renal failure type: unspecified (5) HTN (hypertension) Code(s): I10 - ESSENTIAL (PRIMARY) HYPERTENSION Qualifiers: Hypertension type: essential hypertension Qualified Code(s): I10 - Essential (primary) hypertension
[2018-04-27] MEDS: SODIUM CHLORIDE 1,000 ML IV SCH (21:32)
[2018-04-28] MEDS ORDERED: PT OWN MED DRAWER 7, Y5N ONE ×2 (06:28→21:47)
[2018-04-28] MEDS: CARBIDOPA/LEVODOPA 25/100 TABLET (FP) NGT SCH ×3 (06:36→21:51)
[2018-04-28] MEDS: CALCIUM 500MG/VIT-D 200 UNITS COMBO TABLET (FP) NGT SCH (09:19)
[2018-04-28] MEDS: HEPARIN NA (PORCINE) 5,000 UNITS/ML 1ML VIAL SQ SCH ×2 (09:19→21:52)
--- NOTE | 2018-04-28 09:59 | PN ---
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, Physician Chief Complaint: Events noted Lethargic No change History of Present Illness: Patient was seen and examined. Chart was reviewed Does not appear to be in distress - Current Medication List Current Medications: Active Medications Acetaminophen (Tylenol Oral Solution -) 650 mg NGT Q6H PRN PRN Reason: FEVER Last Admin: 04/27/18 01:45 Dose: 650 mg Calcium Carbonate/Cholecalciferol (Os-Carmelo 500+D -) 1 tab NGT DAILY [facility] Last Admin: 04/28/18 09:19 Dose: 1 tab Carbidopa/Levodopa (Sinemet 25/100 -) 2 each NGT TID [facility] Last Admin: 04/28/18 06:36 Dose: 2 each Heparin Sodium (Porcine) (Heparin -) 5,000 unit SQ BID [facility] Last Admin: 04/28/18 09:19 Dose: 5,000 unit Sodium Chloride (Normal Saline -) 1,000 mls @ 50 mls/hr IV ASDIR [facility] Last Admin: 04/27/18 21:32 Dose: Not Given - Objective Vital Signs: Vital Signs Temperature 99.2 F 04/28/18 05:41 Pulse Rate 79 04/28/18 05:41 Respiratory Rate 18 04/28/18 05:41 Blood Pressure 127/68 04/28/18 05:41 O2 Sat by Pulse Oximetry (%) 97 04/27/18 21:00 HENT: Yes: Atraumatic Neck: Yes: Supple Cardiovascular: Yes: Regular Rate and Rhythm, S1, S2 Respiratory: Yes: Diminished Gastrointestinal: Yes: Normal Bowel Sounds, Soft. No: Tenderness Edema: Yes Edema: LLE: Trace, RLE: Trace Labs: CBC, BMP 04/27/18 01:45 04/27/18 01:45 Problem List - Problems (1) Parkinson disease Code(s): G20 - PARKINSON'S DISEASE (2) Sepsis Code(s): A41.9 - SEPSIS, UNSPECIFIED ORGANISM (3) Acute hypoxemic respiratory failure Code(s): J96.01 - ACUTE RESPIRATORY FAILURE WITH HYPOXIA (4) Yuaov-de-ptkwsao kidney injury Code(s): N17.9 - ACUTE KIDNEY FAILURE, UNSPECIFIED; N18.9 - CHRONIC KIDNEY DISEASE, UNSPECIFIED Qualifiers: Acute renal failure type: unspecified (5) Altered mental status Code(s): R41.82 - ALTERED MENTAL STATUS, UNSPECIFIED Qualifiers: Altered mental status type: disorientation Qualified Code(s): R41.0 - Disorientation, unspecified (6) Bradycardia Code(s): R00.1 - BRADYCARDIA, UNSPECIFIED (7) HTN (hypertension) Code(s): I10 - ESSENTIAL (PRIMARY) HYPERTENSION Qualifiers: Hypertension type: essential hypertension Qualified Code(s): I10 - Essential (primary) hypertension (8) Hypothermia Code(s): T68.XXXA - HYPOTHERMIA, INITIAL ENCOUNTER Qualifiers: Encounter type: subsequent encounter Qualified Code(s): T68.XXXD - Hypothermia, subsequent encounter Assessment/Plan 1. Acute hypoxic respiratory failure/resolved with underlying chronic lung disease, probable pneumonia with sepsis syndrome 2. CAD angina pectoris 3. Diastolic LV dysfunction with clinical class 0-I NYHA classification LV failure, compensated/euvolemic 4. Hypertension 5. Parkinson's disease/dementia, with altered mental status related to probable sepsis syndrome 6. Bradycardia improved (cannot exclude underlying sinus node dysfunction) and hypothermia since resolved, related to sepsis syndrome 7. CKD 8. UTI/sepsis syndrome 9. Sacral decubitus 10. Hypernatremia 11. Anemia 12. Aspiration risk PLAN: 1. May consider ARB as described on previous note if clinically indicated, currently BP normal 2. Avoid B-Blockers in view of bradycardia 3. Enteral feeds for now, ? PEG 4. DVT prophylaxis Continue supportive care. Further plans are to follow Jonathon Hanna MD
--- NOTE | 2018-04-28 13:33 | PN ---
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, Physician History of Present Illness: saying something when calling her name - Current Medication List Current Medications: Active Medications Acetaminophen (Tylenol Oral Solution -) 650 mg NGT Q6H PRN PRN Reason: FEVER Last Admin: 04/27/18 01:45 Dose: 650 mg Calcium Carbonate/Cholecalciferol (Os-Carmelo 500+D -) 1 tab NGT DAILY [facility] Last Admin: 04/28/18 09:19 Dose: 1 tab Carbidopa/Levodopa (Sinemet 25/100 -) 2 each NGT TID [facility] Last Admin: 04/28/18 06:36 Dose: 2 each Heparin Sodium (Porcine) (Heparin -) 5,000 unit SQ BID [facility] Last Admin: 04/28/18 09:19 Dose: 5,000 unit Sodium Chloride (Normal Saline -) 1,000 mls @ 50 mls/hr IV ASDIR [facility] Last Admin: 04/27/18 21:32 Dose: Not Given - Objective Vital Signs: Vital Signs Temperature 98.5 F 04/28/18 09:00 Pulse Rate 76 04/28/18 09:00 Respiratory Rate 18 04/28/18 09:00 Blood Pressure 135/81 04/28/18 09:00 O2 Sat by Pulse Oximetry (%) 98 04/28/18 09:00 Constitutional: Yes: No Distress HENT: Yes: Atraumatic Neck: Yes: Supple Cardiovascular: Yes: Regular Rate and Rhythm Respiratory: Yes: CTA Bilaterally Gastrointestinal: Yes: Normal Bowel Sounds Extremities: Yes: WNL Edema: Yes Edema: LLE: Trace, RLE: Trace Peripheral Pulses WNL: Yes Neurological: Yes: Alert, Oriented Labs: CBC, BMP 04/27/18 01:45 04/27/18 01:45 INR, PTT INR 1.18 (0.83-1.09) H 04/15/18 15:40 Problem List - Problems (1) Parkinson disease Assessment/Plan: on meds stable Code(s): G20 - PARKINSON'S DISEASE (2) Sepsis Assessment/Plan: completed abx no fever Code(s): A41.9 - SEPSIS, UNSPECIFIED ORGANISM (3) Urinary tract infection Assessment/Plan: cxs negative Code(s): N39.0 - URINARY TRACT INFECTION, SITE NOT SPECIFIED (4) Altered mental status Assessment/Plan: opens eyes sometimes on tubefeeds Code(s): R41.82 - ALTERED MENTAL STATUS, UNSPECIFIED Qualifiers: Altered mental status type: disorientation Qualified Code(s): R41.0 - Disorientation, unspecified (5) Hypothermia Assessment/Plan: resolved Code(s): T68.XXXA - HYPOTHERMIA, INITIAL ENCOUNTER Qualifiers: Encounter type: subsequent encounter Qualified Code(s): T68.XXXD - Hypothermia, subsequent encounter (6) Rectal bleeding Assessment/Plan: resolved Code(s): K62.5 - HEMORRHAGE OF ANUS AND RECTUM
--- NOTE | 2018-04-28 15:24 | PN ---
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, Physician History of Present Illness: continues to be lethargic no change remaining afebrile - Current Medication List Current Medications: Active Medications Acetaminophen (Tylenol Oral Solution -) 650 mg NGT Q6H PRN PRN Reason: FEVER Last Admin: 04/27/18 01:45 Dose: 650 mg Calcium Carbonate/Cholecalciferol (Os-Carmelo 500+D -) 1 tab NGT DAILY [facility] Last Admin: 04/28/18 09:19 Dose: 1 tab Carbidopa/Levodopa (Sinemet 25/100 -) 2 each NGT TID [facility] Last Admin: 04/28/18 06:36 Dose: 2 each Heparin Sodium (Porcine) (Heparin -) 5,000 unit SQ BID [facility] Last Admin: 04/28/18 09:19 Dose: 5,000 unit Sodium Chloride (Normal Saline -) 1,000 mls @ 50 mls/hr IV ASDIR [facility] Last Admin: 04/27/18 21:32 Dose: Not Given - Objective Vital Signs: Vital Signs Temperature 98.4 F 04/28/18 15:07 Pulse Rate 84 04/28/18 15:07 Respiratory Rate 18 04/28/18 15:07 Blood Pressure 120/69 04/28/18 15:07 O2 Sat by Pulse Oximetry (%) 98 04/28/18 09:00 Constitutional: Yes: No Distress, Calm Cardiovascular: Yes: S1, S2 Respiratory: Yes: Regular, CTA Bilaterally Gastrointestinal: Yes: Normal Bowel Sounds, Soft Neurological: Yes: Lethargy Labs: CBC, BMP 04/27/18 01:45 04/27/18 01:45 INR, PTT INR 1.18 (0.83-1.09) H 04/15/18 15:40 Assessment/Plan Sepsis due to UTI / PNA / Colitis Metabolic Encephalopathy Bradycardia Diarrhea GI Bleed Anemia HTN Sacral decubitus ulcer Parkinson's sepsis lethargy weakness hypothermia uti plan continue to monitor off of abx remaining afebrile close watch rest as per cardio and primary team
[2018-04-28 16:23] VITALS: BMI 26.7
--- NOTE | 2018-04-28 17:43 | CON.PSY ---
Psychiatry Consult Chief Complaint: Patient with a long historty of José Disease seen for psych consult. On no psych meds. On iker,et for Parkinsons disease. Patient apparantly had been Zyprexa 10mg at home. Symptoms: reports: Impaired Concentration, Decreased Motivation, Memory Impairment - Previous Psychiatric Treatment Outpatient: None Inpatient: None - Previous Substance Abuse Treatment Outpatient: None Inpatient: None - Current Medications Current Medications: Active Medications Acetaminophen (Tylenol Oral Solution -) 650 mg NGT Q6H PRN PRN Reason: FEVER Last Admin: 04/27/18 01:45 Dose: 650 mg Calcium Carbonate/Cholecalciferol (Os-Carmelo 500+D -) 1 tab NGT DAILY [facility] Last Admin: 04/28/18 09:19 Dose: 1 tab Carbidopa/Levodopa (Sinemet 25/100 -) 2 each NGT TID [facility] Last Admin: 04/28/18 17:34 Dose: 2 each Heparin Sodium (Porcine) (Heparin -) 5,000 unit SQ BID [facility] Last Admin: 04/28/18 09:19 Dose: 5,000 unit Sodium Chloride (Normal Saline -) 1,000 mls @ 50 mls/hr IV ASDIR [facility] Last Admin: 04/27/18 21:32 Dose: Not Given - Allergies Allergies: Allergies Allergy/AdvReac Type Severity Reaction Status Date / Time No Known Allergies Allergy Verified 04/13/18 21:45 - Current Living Status Usual Living Arrangement: With Significant Other - Current Mental Status Evaluation Appearance: Disheveled Attitude: Guarded - Affect Affect: Flat Appropriateness: Not Appropriate - Mood Mood: Other - Speech/Language Expressive: Delayed - Psychomotor Activity Psychomotor Activity: Slowed - Thought Process Thought Process: Circumstantial - Thought Content Hallucinations: Absent Delusions: Absent - Self Perception Self Perception: Depersonalization - Cognition Attention: Diminished Memory, Immediate Recall: Impaired Memory, Short Term: 1/3 Memory, Remote with Promptin/3 - Concentration Serial Sevens Intact: No Simple Calculations Intact: No - Abstraction Proverb Interpretation: Impaired Judgement: Moderately Impaired - Insight Insight: Impaired - Impulse Control Impulse Control: Minimally Impaired - Suicidal Ideation Suicidal Ideation: No - Homicidal Ideation Homicidal Ideation: No Assessment/Plan 1) Will hold off on Zyprexa, Patient os obtunded, not exhibiting any Behavioral or Psychotic thinking at this time.
[2018-04-28] MEDS: SODIUM CHLORIDE 1,000 ML IV SCH (21:16)
[2018-04-29] MEDS ORDERED: PT OWN MED DRAWER 7, Y5N ONE ×3 (06:02→20:19)
[2018-04-29] MEDS: CARBIDOPA/LEVODOPA 25/100 TABLET (FP) NGT SCH ×3 (06:15→21:09)
[2018-04-29] MEDS: HEPARIN NA (PORCINE) 5,000 UNITS/ML 1ML VIAL SQ SCH ×2 (10:07→21:09)
[2018-04-29] MEDS: CALCIUM 500MG/VIT-D 200 UNITS COMBO TABLET (FP) NGT SCH (10:07)
--- NOTE | 2018-04-29 11:08 | PN ---
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, RELATIONSHIP CONSULTANT - Note 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: Asked to reassess pt. Performance unchanged. Swallowing not functional at present.Prognosis quite guarded for functional recovery. Lethargic, slightly arousable, with eyes closed. No functional response to spoon with applesauce placed in anterior oral cavity. Consider Palliative Care (End of life wishes- Pt is full code. PEG? Hospice? To reassess swallowing if pt improves Continue NGT feeding for now
--- NOTE | 2018-04-29 11:29 | PN ---
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, Physician Chief Complaint: Events noted No significant changes History of Present Illness: Patient was seen and examined. Chart was reviewed - Current Medication List Current Medications: Active Medications Acetaminophen (Tylenol Oral Solution -) 650 mg NGT Q6H PRN PRN Reason: FEVER Last Admin: 04/27/18 01:45 Dose: 650 mg Calcium Carbonate/Cholecalciferol (Os-Carmelo 500+D -) 1 tab NGT DAILY [facility] Last Admin: 04/29/18 10:07 Dose: 1 tab Carbidopa/Levodopa (Sinemet 25/100 -) 2 each NGT TID [facility] Last Admin: 04/29/18 06:15 Dose: 2 each Heparin Sodium (Porcine) (Heparin -) 5,000 unit SQ BID [facility] Last Admin: 04/29/18 10:07 Dose: 5,000 unit Sodium Chloride (Normal Saline -) 1,000 mls @ 50 mls/hr IV ASDIR [facility] Last Admin: 04/28/18 21:16 Dose: 50 mls/hr - Objective Vital Signs: Vital Signs Temperature 98.8 F 04/29/18 09:00 Pulse Rate 92 H 04/29/18 09:00 Respiratory Rate 18 04/29/18 09:00 Blood Pressure 103/76 04/29/18 09:00 O2 Sat by Pulse Oximetry (%) 95 04/28/18 21:00 HENT: Yes: Atraumatic Neck: Yes: Supple Cardiovascular: Yes: Regular Rate and Rhythm, S1, S2 Respiratory: Yes: Diminished Gastrointestinal: Yes: Normal Bowel Sounds, Soft. No: Tenderness Edema: No Problem List - Problems (1) Parkinson disease Code(s): G20 - PARKINSON'S DISEASE (2) Sepsis Code(s): A41.9 - SEPSIS, UNSPECIFIED ORGANISM (3) Acute hypoxemic respiratory failure Code(s): J96.01 - ACUTE RESPIRATORY FAILURE WITH HYPOXIA (4) Ifmth-bj-elxxmwc kidney injury Code(s): N17.9 - ACUTE KIDNEY FAILURE, UNSPECIFIED; N18.9 - CHRONIC KIDNEY DISEASE, UNSPECIFIED Qualifiers: Acute renal failure type: unspecified (5) Altered mental status Code(s): R41.82 - ALTERED MENTAL STATUS, UNSPECIFIED Qualifiers: Altered mental status type: disorientation Qualified Code(s): R41.0 - Disorientation, unspecified (6) Bradycardia Code(s): R00.1 - BRADYCARDIA, UNSPECIFIED (7) HTN (hypertension) Code(s): I10 - ESSENTIAL (PRIMARY) HYPERTENSION Qualifiers: Hypertension type: essential hypertension Qualified Code(s): I10 - Essential (primary) hypertension (8) Hypothermia Code(s): T68.XXXA - HYPOTHERMIA, INITIAL ENCOUNTER Qualifiers: Encounter type: subsequent encounter Qualified Code(s): T68.XXXD - Hypothermia, subsequent encounter Assessment/Plan 1. Acute hypoxic respiratory failure/resolved with underlying chronic lung disease, probable pneumonia with sepsis syndrome 2. CAD angina pectoris 3. Diastolic LV dysfunction with clinical class 0-I NYHA classification LV failure, compensated/euvolemic 4. Hypertension 5. Parkinson's disease/dementia, with altered mental status related to probable sepsis syndrome 6. Bradycardia improved (cannot exclude underlying sinus node dysfunction) and hypothermia since resolved, related to sepsis syndrome 7. CKD 8. UTI/sepsis syndrome 9. Sacral decubitus 10. Hypernatremia 11. Anemia 12. Aspiration risk PLAN: 1. Avoid B-Blockers in view of bradycardia 2. Enteral feeds for now, ? PEG 3. DVT prophylaxis 4. ? Palliative care ? advanced directives Continue supportive care. Further plans are to follow Jonathon Hanna MD
--- NOTE | 2018-04-29 13:54 | PN ---
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, Physician History of Present Illness: stable off of abx poor diet still not at baseline mental status - Current Medication List Current Medications: Active Medications Acetaminophen (Tylenol Oral Solution -) 650 mg NGT Q6H PRN PRN Reason: FEVER Last Admin: 04/27/18 01:45 Dose: 650 mg Calcium Carbonate/Cholecalciferol (Os-Carmelo 500+D -) 1 tab NGT DAILY [facility] Last Admin: 04/29/18 10:07 Dose: 1 tab Carbidopa/Levodopa (Sinemet 25/100 -) 2 each NGT TID [facility] Last Admin: 04/29/18 06:15 Dose: 2 each Heparin Sodium (Porcine) (Heparin -) 5,000 unit SQ BID [facility] Last Admin: 04/29/18 10:07 Dose: 5,000 unit Sodium Chloride (Normal Saline -) 1,000 mls @ 50 mls/hr IV ASDIR [facility] Last Admin: 04/28/18 21:16 Dose: 50 mls/hr - Objective Vital Signs: Vital Signs Temperature 98.8 F 04/29/18 09:00 Pulse Rate 92 H 04/29/18 09:00 Respiratory Rate 18 04/29/18 09:00 Blood Pressure 103/76 04/29/18 09:00 O2 Sat by Pulse Oximetry (%) 95 04/28/18 21:00 Constitutional: Yes: No Distress, Calm Cardiovascular: Yes: S1, S2 Respiratory: Yes: Regular, CTA Bilaterally Gastrointestinal: Yes: Normal Bowel Sounds, Soft Musculoskeletal: Yes: WNL Extremities: Yes: WNL Neurological: Yes: Alert, Confusion Labs: CBC, BMP 04/27/18 01:45 04/27/18 01:45 INR, PTT INR 1.18 (0.83-1.09) H 04/15/18 15:40 Assessment/Plan Sepsis due to UTI / PNA / Colitis Metabolic Encephalopathy Bradycardia Diarrhea GI Bleed Anemia HTN Sacral decubitus ulcer Parkinson's sepsis lethargy weakness hypothermia uti plan continue current mgmt stable off of abx monitor mental status rest as per the team nutrition
--- NOTE | 2018-04-29 17:21 | PN ---
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, Physician History of Present Illness: stable - Current Medication List Current Medications: Active Medications Acetaminophen (Tylenol Oral Solution -) 650 mg NGT Q6H PRN PRN Reason: FEVER Last Admin: 04/27/18 01:45 Dose: 650 mg Calcium Carbonate/Cholecalciferol (Os-Carmelo 500+D -) 1 tab NGT DAILY [facility] Last Admin: 04/29/18 10:07 Dose: 1 tab Carbidopa/Levodopa (Sinemet 25/100 -) 2 each NGT TID [facility] Last Admin: 04/29/18 15:21 Dose: 2 each Heparin Sodium (Porcine) (Heparin -) 5,000 unit SQ BID [facility] Last Admin: 04/29/18 10:07 Dose: 5,000 unit Sodium Chloride (Normal Saline -) 1,000 mls @ 50 mls/hr IV ASDIR [facility] Last Admin: 04/28/18 21:16 Dose: 50 mls/hr - Objective Vital Signs: Vital Signs Temperature 99.1 F 04/29/18 13:54 Pulse Rate 85 04/29/18 13:54 Respiratory Rate 18 04/29/18 13:54 Blood Pressure 117/70 04/29/18 13:54 O2 Sat by Pulse Oximetry (%) 96 04/29/18 09:00 Constitutional: Yes: No Distress HENT: Yes: Atraumatic Neck: Yes: Supple Cardiovascular: Yes: Regular Rate and Rhythm Respiratory: Yes: CTA Bilaterally Gastrointestinal: Yes: Normal Bowel Sounds Extremities: Yes: WNL Edema: LLE: Trace, RLE: Trace Peripheral Pulses WNL: Yes Neurological: Yes: Lethargy Labs: CBC, BMP 04/27/18 01:45 04/27/18 01:45 INR, PTT INR 1.18 (0.83-1.09) H 04/15/18 15:40 Problem List - Problems (1) Parkinson disease Assessment/Plan: on meds stable Code(s): G20 - PARKINSON'S DISEASE (2) Sepsis Assessment/Plan: completed abx no fever Code(s): A41.9 - SEPSIS, UNSPECIFIED ORGANISM (3) Urinary tract infection Assessment/Plan: cxs negative Code(s): N39.0 - URINARY TRACT INFECTION, SITE NOT SPECIFIED (4) Altered mental status Assessment/Plan: much improved on tubefeeds Code(s): R41.82 - ALTERED MENTAL STATUS, UNSPECIFIED Qualifiers: Altered mental status type: disorientation Qualified Code(s): R41.0 - Disorientation, unspecified (5) Hypothermia Assessment/Plan: resolved Code(s): T68.XXXA - HYPOTHERMIA, INITIAL ENCOUNTER Qualifiers: Encounter type: subsequent encounter Qualified Code(s): T68.XXXD - Hypothermia, subsequent encounter (6) Rectal bleeding Assessment/Plan: resolved Code(s): K62.5 - HEMORRHAGE OF ANUS AND RECTUM (7) On tube feeding diet Assessment/Plan: not awake enough for swallowing eval family to consider peg spoke to daughter she wants to try oral feeding Code(s): Z78.9 - OTHER SPECIFIED HEALTH STATUS
[2018-04-29] MEDS: ACETAMINOPHEN 650 MG/20.3 ML ORAL SOLUTION (CUPS) NGT PRN (20:26)
[2018-04-29] MEDS: SODIUM CHLORIDE 1,000 ML IV SCH (20:26)
[2018-04-30] MEDS ORDERED: PT OWN MED DRAWER 7, Y5N ONE ×4 (05:51→20:41)
[2018-04-30] MEDS: CARBIDOPA/LEVODOPA 25/100 TABLET (FP) NGT SCH ×3 (05:59→21:07)
[2018-04-30] MEDS: HEPARIN NA (PORCINE) 5,000 UNITS/ML 1ML VIAL SQ SCH ×2 (09:52→21:07)
[2018-04-30] MEDS: CALCIUM 500MG/VIT-D 200 UNITS COMBO TABLET (FP) NGT SCH ×2 (09:52→10:12)
--- NOTE | 2018-04-30 10:35 | PN ---
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, Physician History of Present Illness: Arousable. Valsartan d/artemio due to hypotension. Being fed on aspiration diet. - Current Medication List Current Medications: Active Medications Acetaminophen (Tylenol Oral Solution -) 650 mg NGT Q6H PRN PRN Reason: FEVER Last Admin: 04/29/18 20:26 Dose: 650 mg Calcium Carbonate/Cholecalciferol (Os-Carmelo 500+D -) 1 tab NGT DAILY [facility] Last Admin: 04/30/18 10:12 Dose: Not Given Carbidopa/Levodopa (Sinemet 25/100 -) 2 each NGT TID [facility] Last Admin: 04/30/18 05:59 Dose: 2 each Heparin Sodium (Porcine) (Heparin -) 5,000 unit SQ BID [facility] Last Admin: 04/30/18 09:52 Dose: 5,000 unit Sodium Chloride (Normal Saline -) 1,000 mls @ 50 mls/hr IV ASDIR [facility] Last Admin: 04/29/18 20:26 Dose: 50 mls/hr - Objective Vital Signs: Vital Signs Temperature 98.4 F 04/30/18 09:02 Pulse Rate 73 04/30/18 09:02 Respiratory Rate 20 04/30/18 09:02 Blood Pressure 120/73 04/30/18 09:02 O2 Sat by Pulse Oximetry (%) 96 04/29/18 21:00 Constitutional: Yes: No Distress, Calm, Thin Neck: Yes: Supple Cardiovascular: Yes: Regular Rate and Rhythm Respiratory: Yes: Regular, Diminished Gastrointestinal: Yes: Normal Bowel Sounds, Soft Edema: No Labs: CBC, BMP 04/27/18 01:45 04/27/18 01:45 INR, PTT INR 1.18 (0.83-1.09) H 04/15/18 15:40 Problem List - Problems (1) Parkinson disease Code(s): G20 - PARKINSON'S DISEASE (2) Acute hypoxemic respiratory failure Code(s): J96.01 - ACUTE RESPIRATORY FAILURE WITH HYPOXIA (3) Altered mental status Code(s): R41.82 - ALTERED MENTAL STATUS, UNSPECIFIED Qualifiers: Altered mental status type: disorientation Qualified Code(s): R41.0 - Disorientation, unspecified (4) Bradycardia Code(s): R00.1 - BRADYCARDIA, UNSPECIFIED (5) E. coli UTI Code(s): N39.0 - URINARY TRACT INFECTION, SITE NOT SPECIFIED; B96.20 - UNSP ESCHERICHIA COLI THE CAUSE OF DISEASES CLASSD ELSWHR (6) Hypothermia Code(s): T68.XXXA - HYPOTHERMIA, INITIAL ENCOUNTER Qualifiers: Encounter type: subsequent encounter Qualified Code(s): T68.XXXD - Hypothermia, subsequent encounter Assessment/Plan Echocardiography dated 07/02/2017 revealed normal LV size and function with diastolic LV dysfunction 1. Acute hypoxic respiratory failure/resolved with underlying chronic lung disease, probable pneumonia with sepsis syndrome 2. CAD angina pectoris 3. Diastolic LV dysfunction with clinical class 0-I NYHA classification LV failure, compensated/euvolemic 4. Hypertension 5. Parkinson's disease/dementia, with altered mental status related to probable sepsis syndrome 6. Bradycardia improved (cannot exclude underlying sinus node dysfunction) and hypothermia since resolved, related to sepsis syndrome 7. CKD 8. UTI/sepsis syndrome 9. Sacral decubitus 10. Hypernatremia 11. Anemia 12. Aspiration risk PLAN: 1. Avoid B-Blockers in view of bradycardia 2. Enteral feeds for now, ? PEG 3. DVT prophylaxis 4. ? Palliative care ? advanced directives Continue supportive care.
--- NOTE | 2018-04-30 11:24 | PN ---
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, NEWSPAPER JOURNALIST - Note 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: Asked to reassess pt. Selected Entries 04/29/18 04/29/18 04/29/18 05:00 09:00 13:54 Temperature 98.8 F 98.8 F 99.1 F 04/29/18 04/29/18 04/30/18 18:00 21:00 01:30 Temperature 98.0 F 99.4 F 98.7 F 04/30/18 04/30/18 06:00 09:02 Temperature 99.2 F 98.4 F Laboratory Tests 04/27/18 01:45 WBC 8.5 NGT discharge order. Dys puree/nectar diet ordered.Staff had diffculty feeding pt and meds were held in her mouth. Pt reassessed. Pt's eyes remained closed, however, pt was occasionally verbal today. Impaiored speech initiation and swallow initiation, sec to Dementia. Some improvement as compared to previous assessments. Oral holding with puree, and meds in puree, with no posterior oral transfer or swallow onset. With thick liquid, due to viscosity, spillage over BOT, still without reflexive laryngeal swallow triggered. With repeated cues to swallow, delayed but fairly brisk swallow elicited at times. Risk of aspiration due to spillage over BOT, and absent or delayed swallow. IMP: Improved but still at risk of aspiration, dehydration, malnutrition. Pending Palliative Care End of life wishes- Pt is full code. REC: Mix puree into Ensure/liquid to sip meals. Ensure compact TID HOB elevated, Chin tucked down Single sips, tell pt to swallow repeatedly until swallow reflex is seen/palpated Monitor for congestion, fever, sufficient PO intake. Palliative care Reviewed with staff and daughter at length.Pt's daughter said she was "verbal, walking, eating regular food" before this admission. Compensatory swallowing strategies reviewed as well as risk of aspiration, dehydration, malnutrition. Discussed consideration for PEG to supplement PO intake. Pt's wishes? Pt's daughter would like pt to go to [facility] to get stronger and would like to defer PEG for now and feed her and observe.
--- NOTE | 2018-04-30 13:17 | PN ---
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, Physician History of Present Illness: still not fully awake opens eyes not able to take much po - Current Medication List Current Medications: Active Medications Acetaminophen (Tylenol Oral Solution -) 650 mg NGT Q6H PRN PRN Reason: FEVER Last Admin: 04/29/18 20:26 Dose: 650 mg Calcium Carbonate/Cholecalciferol (Os-Carmelo 500+D -) 1 tab NGT DAILY [facility] Last Admin: 04/30/18 10:12 Dose: Not Given Carbidopa/Levodopa (Sinemet 25/100 -) 2 each NGT TID [facility] Last Admin: 04/30/18 05:59 Dose: 2 each Heparin Sodium (Porcine) (Heparin -) 5,000 unit SQ BID [facility] Last Admin: 04/30/18 09:52 Dose: 5,000 unit Sodium Chloride (Normal Saline -) 1,000 mls @ 50 mls/hr IV ASDIR [facility] Last Admin: 04/29/18 20:26 Dose: 50 mls/hr - Objective Vital Signs: Vital Signs Temperature 98.4 F 04/30/18 09:02 Pulse Rate 73 04/30/18 09:02 Respiratory Rate 20 04/30/18 09:02 Blood Pressure 120/73 04/30/18 09:02 O2 Sat by Pulse Oximetry (%) 99 04/30/18 09:00 Constitutional: Yes: No Distress, Calm Cardiovascular: Yes: S1, S2 Respiratory: Yes: Regular, CTA Bilaterally Gastrointestinal: Yes: Normal Bowel Sounds, Soft Musculoskeletal: Yes: WNL Extremities: Yes: WNL Neurological: Yes: Confusion, Lethargy Labs: CBC, BMP 04/27/18 01:45 04/27/18 01:45 INR, PTT INR 1.18 (0.83-1.09) H 04/15/18 15:40 Assessment/Plan Sepsis due to UTI / PNA / Colitis Metabolic Encephalopathy Bradycardia Diarrhea GI Bleed Anemia HTN Sacral decubitus ulcer Parkinson's sepsis lethargy weakness hypothermia uti plan continue current mgmt stable off of abx monitor mental status consider swallow eval once awake
--- NOTE | 2018-04-30 17:49 | PN ---
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, Physician History of Present Illness: events noted - Current Medication List Current Medications: Active Medications Acetaminophen (Tylenol Oral Solution -) 650 mg NGT Q6H PRN PRN Reason: FEVER Last Admin: 04/29/18 20:26 Dose: 650 mg Calcium Carbonate/Cholecalciferol (Os-Carmelo 500+D -) 1 tab NGT DAILY [facility] Last Admin: 04/30/18 10:12 Dose: Not Given Carbidopa/Levodopa (Sinemet 25/100 -) 2 each NGT TID [facility] Last Admin: 04/30/18 13:21 Dose: 2 each Heparin Sodium (Porcine) (Heparin -) 5,000 unit SQ BID [facility] Last Admin: 04/30/18 09:52 Dose: 5,000 unit Sodium Chloride (Normal Saline -) 1,000 mls @ 50 mls/hr IV ASDIR [facility] Last Admin: 04/29/18 20:26 Dose: 50 mls/hr - Objective Vital Signs: Vital Signs Temperature 98.8 F 04/30/18 14:00 Pulse Rate 75 04/30/18 14:00 Respiratory Rate 20 04/30/18 14:00 Blood Pressure 100/62 04/30/18 14:00 O2 Sat by Pulse Oximetry (%) 99 04/30/18 09:00 Constitutional: Yes: No Distress HENT: Yes: Atraumatic Neck: Yes: Supple Cardiovascular: Yes: Regular Rate and Rhythm Respiratory: Yes: Rhonchi Gastrointestinal: Yes: Normal Bowel Sounds Extremities: Yes: WNL Edema: LLE: Trace, RLE: Trace Peripheral Pulses WNL: Yes Neurological: Yes: Other (wakes up on calling name) Labs: CBC, BMP 04/27/18 01:45 04/27/18 01:45 INR, PTT INR 1.18 (0.83-1.09) H 04/15/18 15:40 Problem List - Problems (1) Parkinson disease Assessment/Plan: on meds stable Code(s): G20 - PARKINSON'S DISEASE (2) Sepsis Assessment/Plan: completed abx no fever Code(s): A41.9 - SEPSIS, UNSPECIFIED ORGANISM (3) Urinary tract infection Assessment/Plan: cxs negative Code(s): N39.0 - URINARY TRACT INFECTION, SITE NOT SPECIFIED (4) Altered mental status Assessment/Plan: does respond to calling name but still not fully awake Code(s): R41.82 - ALTERED MENTAL STATUS, UNSPECIFIED Qualifiers: Altered mental status type: disorientation Qualified Code(s): R41.0 - Disorientation, unspecified (5) Hypothermia Assessment/Plan: resolved Code(s): T68.XXXA - HYPOTHERMIA, INITIAL ENCOUNTER Qualifiers: Encounter type: subsequent encounter Qualified Code(s): T68.XXXD - Hypothermia, subsequent encounter (6) Rectal bleeding Code(s): K62.5 - HEMORRHAGE OF ANUS AND RECTUM (7) On tube feeding diet Assessment/Plan: not awake enough for swallowing eval family to consider peg spoke to daughter she wants to try oral feeding Code(s): Z78.9 - OTHER SPECIFIED HEALTH STATUS
[2018-04-30] MEDS: SODIUM CHLORIDE 1,000 ML IV SCH (21:07)
[2018-05-01] MEDS ORDERED: PT OWN MED DRAWER 7, Y5N ONE ×3 (04:51→20:40)
[2018-05-01] MEDS: CARBIDOPA/LEVODOPA 25/100 TABLET (FP) NGT SCH ×4 (05:07→21:31)
[2018-05-01] MEDS: SODIUM CHLORIDE 1,000 ML IV SCH ×2 (09:29→21:31)
[2018-05-01] MEDS: HEPARIN NA (PORCINE) 5,000 UNITS/ML 1ML VIAL SQ SCH ×2 (09:30→21:31)
[2018-05-01] MEDS: CALCIUM 500MG/VIT-D 200 UNITS COMBO TABLET (FP) NGT SCH (09:30)
--- NOTE | 2018-05-01 10:03 | PN ---
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, Physician History of Present Illness: Arousable. Valsartan previously d/artemio due to hypotension. Being fed on aspiration diet. - Current Medication List Current Medications: Active Medications Acetaminophen (Tylenol Oral Solution -) 650 mg NGT Q6H PRN PRN Reason: FEVER Last Admin: 04/29/18 20:26 Dose: 650 mg Calcium Carbonate/Cholecalciferol (Os-Carmelo 500+D -) 1 tab NGT DAILY [facility] Last Admin: 05/01/18 09:30 Dose: Not Given Carbidopa/Levodopa (Sinemet 25/100 -) 2 each NGT TID [facility] Last Admin: 05/01/18 05:07 Dose: 2 each Heparin Sodium (Porcine) (Heparin -) 5,000 unit SQ BID [facility] Last Admin: 05/01/18 09:30 Dose: 5,000 unit Sodium Chloride (Normal Saline -) 1,000 mls @ 50 mls/hr IV ASDIR [facility]S [facility] Last Admin: 05/01/18 09:29 Dose: 50 mls/hr - Objective Vital Signs: Vital Signs Temperature 98.9 F 05/01/18 09:33 Pulse Rate 75 05/01/18 09:33 Respiratory Rate 18 05/01/18 09:33 Blood Pressure 146/79 05/01/18 09:33 O2 Sat by Pulse Oximetry (%) 96 05/01/18 09:33 Constitutional: Yes: No Distress, Calm, Thin Neck: Yes: Supple Cardiovascular: Yes: Regular Rate and Rhythm Respiratory: Yes: Regular, Diminished, On Nasal O2 Gastrointestinal: Yes: Soft, Hypoactive Bowel Sounds Edema: No Labs: CBC, BMP 04/27/18 01:45 04/27/18 01:45 INR, PTT INR 1.18 (0.83-1.09) H 04/15/18 15:40 Problem List - Problems (1) Parkinson disease Code(s): G20 - PARKINSON'S DISEASE (2) Acute hypoxemic respiratory failure Code(s): J96.01 - ACUTE RESPIRATORY FAILURE WITH HYPOXIA (3) Altered mental status Code(s): R41.82 - ALTERED MENTAL STATUS, UNSPECIFIED Qualifiers: Altered mental status type: disorientation Qualified Code(s): R41.0 - Disorientation, unspecified (4) Bradycardia Code(s): R00.1 - BRADYCARDIA, UNSPECIFIED (5) E. coli UTI Code(s): N39.0 - URINARY TRACT INFECTION, SITE NOT SPECIFIED; B96.20 - UNSP ESCHERICHIA COLI THE CAUSE OF DISEASES CLASSD ELSWHR (6) Hypothermia Code(s): T68.XXXA - HYPOTHERMIA, INITIAL ENCOUNTER Qualifiers: Encounter type: subsequent encounter Qualified Code(s): T68.XXXD - Hypothermia, subsequent encounter Assessment/Plan Echocardiography dated 07/02/2017 revealed normal LV size and function with diastolic LV dysfunction 1. Acute hypoxic respiratory failure/resolved with underlying chronic lung disease, probable pneumonia with sepsis syndrome 2. CAD angina pectoris 3. Diastolic LV dysfunction with clinical class 0-I NYHA classification LV failure, compensated/euvolemic 4. Hypertension 5. Parkinson's disease/dementia, with altered mental status related to probable sepsis syndrome 6. Bradycardia improved (cannot exclude underlying sinus node dysfunction) and hypothermia since resolved, related to sepsis syndrome 7. CKD 8. UTI/sepsis syndrome 9. Sacral decubitus 10. Hypernatremia 11. Anemia 12. Aspiration risk PLAN: 1. Avoid B-Blockers in view of bradycardia, rechallenge Diovan 40 qd and observe clinical response 2. Mix puree into Ensure/liquid to sip meals, Ensure compact TID, PEG deferred by daughter 3. DVT prophylaxis 4. ? Palliative care ? advanced directives, continue supportive care.
--- NOTE | 2018-05-01 12:27 | PN ---
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, Physician History of Present Illness: patient stable looking much better patient tolerating diet family in room - Current Medication List Current Medications: Active Medications Acetaminophen (Tylenol Oral Solution -) 650 mg NGT Q6H PRN PRN Reason: FEVER Last Admin: 04/29/18 20:26 Dose: 650 mg Calcium Carbonate/Cholecalciferol (Os-Carmelo 500+D -) 1 tab NGT DAILY [facility] Last Admin: 05/01/18 09:30 Dose: Not Given Carbidopa/Levodopa (Sinemet 25/100 -) 2 each NGT TID [facility] Last Admin: 05/01/18 05:07 Dose: 2 each Heparin Sodium (Porcine) (Heparin -) 5,000 unit SQ BID [facility] Last Admin: 05/01/18 09:30 Dose: 5,000 unit Sodium Chloride (Normal Saline -) 1,000 mls @ 50 mls/hr IV ASDIR [facility] Last Admin: 05/01/18 09:29 Dose: 50 mls/hr Valsartan (Diovan -) 40 mg PO DAILY [facility] - Objective Vital Signs: Vital Signs Temperature 98.9 F 05/01/18 09:33 Pulse Rate 75 05/01/18 09:33 Respiratory Rate 18 05/01/18 09:33 Blood Pressure 146/79 05/01/18 09:33 O2 Sat by Pulse Oximetry (%) 96 05/01/18 09:33 Constitutional: Yes: No Distress, Calm Cardiovascular: Yes: S1, S2 Respiratory: Yes: Regular, CTA Bilaterally Gastrointestinal: Yes: Normal Bowel Sounds, Soft Musculoskeletal: Yes: WNL Extremities: Yes: WNL Neurological: Yes: Alert Psychiatric: Yes: Alert Labs: CBC, BMP 04/27/18 01:45 04/27/18 01:45 INR, PTT INR 1.18 (0.83-1.09) H 04/15/18 15:40 Assessment/Plan Sepsis due to UTI / PNA / Colitis Metabolic Encephalopathy Bradycardia Diarrhea GI Bleed Anemia HTN Sacral decubitus ulcer Parkinson's sepsis lethargy weakness hypothermia uti plan continue to monitor off of abx remaining afebrile close watch rest as per cardio and primary team
--- NOTE | 2018-05-01 14:23 | PN ---
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, PATROL OFFICER - Note 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: Selected Entries 04/30/18 04/30/18 05/01/18 10:00 18:00 09:53 Breakfast 0 Diet Tolerated Poor Lunch Supper 0 0 05/01/18 10:00 Breakfast Diet Tolerated Poor Lunch 50% Supper Laboratory Tests 04/27/18 01:45 WBC 8.5 Taking very little by mouth for staff. Difficulty to give medication. Family fed pt 1 soup and an Ensure over a 2 hour period. REC: Mix puree into Ensure/liquid to sip meals. Ensure compact TID HOB elevated, Chin tucked down Single sips, tell pt to swallow repeatedly until swallow reflex is seen/palpated Monitor for congestion, fever, sufficient PO intake. Consider PEG to supplement PO intake for nutrition, hydration, medication
[2018-05-01] MEDS ORDERED: SODIUM CHLORIDE 0.9% 500 ML INFUS.BAG IV ONE (15:00)
--- NOTE | 2018-05-01 17:04 | PN ---
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, Physician History of Present Illness: still drowsy daughter help giving meds with apple sauce - Current Medication List Current Medications: Active Medications Acetaminophen (Tylenol Oral Solution -) 650 mg NGT Q6H PRN PRN Reason: FEVER Last Admin: 04/29/18 20:26 Dose: 650 mg Calcium Carbonate/Cholecalciferol (Os-Carmelo 500+D -) 1 tab NGT DAILY [facility] Last Admin: 05/01/18 09:30 Dose: Not Given Carbidopa/Levodopa (Sinemet 25/100 -) 2 each NGT TID [facility] Last Admin: 05/01/18 14:38 Dose: Not Given Heparin Sodium (Porcine) (Heparin -) 5,000 unit SQ BID [facility] Last Admin: 05/01/18 09:30 Dose: 5,000 unit Sodium Chloride (Normal Saline -) 1,000 mls @ 50 mls/hr IV ASDIR [facility] Last Admin: 05/01/18 09:29 Dose: 50 mls/hr Valsartan (Diovan -) 40 mg PO DAILY [facility] - Objective Vital Signs: Vital Signs Temperature 98.3 F 05/01/18 14:00 Pulse Rate 74 05/01/18 14:00 Respiratory Rate 18 05/01/18 14:00 Blood Pressure 87/55 L 05/01/18 14:00 O2 Sat by Pulse Oximetry (%) 96 05/01/18 09:33 Constitutional: Yes: No Distress HENT: Yes: Atraumatic Neck: Yes: Supple Cardiovascular: Yes: Regular Rate and Rhythm Respiratory: Yes: CTA Bilaterally Gastrointestinal: Yes: Normal Bowel Sounds Extremities: Yes: WNL Edema: No Neurological: Yes: Lethargy Labs: CBC, BMP 04/27/18 01:45 04/27/18 01:45 INR, PTT INR 1.18 (0.83-1.09) H 04/15/18 15:40 Problem List - Problems (1) Parkinson disease Assessment/Plan: on meds stable Code(s): G20 - PARKINSON'S DISEASE (2) Sepsis Assessment/Plan: completed abx no fever Code(s): A41.9 - SEPSIS, UNSPECIFIED ORGANISM (3) Urinary tract infection Assessment/Plan: cxs negative Code(s): N39.0 - URINARY TRACT INFECTION, SITE NOT SPECIFIED (4) Altered mental status Assessment/Plan: does respond to calling name but still not fully awake Code(s): R41.82 - ALTERED MENTAL STATUS, UNSPECIFIED Qualifiers: Altered mental status type: disorientation Qualified Code(s): R41.0 - Disorientation, unspecified (5) Hypothermia Assessment/Plan: resolved Code(s): T68.XXXA - HYPOTHERMIA, INITIAL ENCOUNTER Qualifiers: Encounter type: subsequent encounter Qualified Code(s): T68.XXXD - Hypothermia, subsequent encounter (6) Rectal bleeding Assessment/Plan: resolved Code(s): K62.5 - HEMORRHAGE OF ANUS AND RECTUM (7) On tube feeding diet Assessment/Plan: not awake enough for swallowing eval family now agree to put peg Code(s): Z78.9 - OTHER SPECIFIED HEALTH STATUS
[2018-05-01] MEDS ORDERED: INSULIN SLIDING SCALE (NOVOLOG) 1 VIAL SQ ONE (17:50)
[2018-05-02] MEDS: SODIUM CHLORIDE 1,000 ML IV SCH (01:36)
[2018-05-02] MEDS ORDERED: PT OWN MED DRAWER 7, Y5N ONE ×2 (05:57→09:16)
[2018-05-02] MEDS: CARBIDOPA/LEVODOPA 25/100 TABLET (FP) NGT SCH ×3 (06:11→16:33)
[2018-05-02 06:21] LABS: BASO % 1.4 % (0-2.0); EOS % 0.7 % (0-4.5); HEMATOCRIT 30.7 % (32.4-45.2); HEMOGLOBIN 9.6 GM/dL (10.7-15.3); LYMPH % 45.5 % (8-40); MCH 21.8 pg (25.7-33.7); MCHC 31.1 g/dl (32.0-36.0); MEAN PLT VOLUME 8.5 fl (7.5-11.1); MONO % 12.5 % (3.8-10.2); NEUT % 39.9 % (42.8-82.8); PLATELET COUNT 457 K/MM3 (134-434); RBC 4.38 M/mm3 (3.60-5.2); RDW 16.5 % (11.6-15.6); WHITE BLOOD COUNT 7.5 K/mm3 (4.0-10.0)
[2018-05-02 06:27] LABS: ADD RBC MORPHOLOGY YES
[2018-05-02 07:15] LABS: ALBUMIN 2.4 g/dl (3.4-5.0); ALK PHOS 78 U/L (45-117); ANION GAP 6 MMOL/L (8-16); BILIRUBIN,TOTAL 0.3 mg/dL (0.2-1); BLOOD UREA NITROGEN 17 mg/dL (7-18); CALCIUM 8.1 mg/dL (8.5-10.1); CHLORIDE 109 mmol/L (98-107); CO2 26 mmol/L (21-32); CREATININE 0.8 mg/dL (0.55-1.3); GLUCOSE,RANDOM 92 mg/dL (74-106); SGOT/AST 22 U/L (15-37); SGPT/ALT < 6 U/L (13-61); SODIUM 141 mmol/L (136-145); TOT PROT 6.5 g/dl (6.4-8.2)
[2018-05-02] MEDS: CALCIUM 500MG/VIT-D 200 UNITS COMBO TABLET (FP) NGT SCH (09:19)
[2018-05-02] MEDS: HEPARIN NA (PORCINE) 5,000 UNITS/ML 1ML VIAL SQ SCH (09:19)
[2018-05-02] MEDS: VALSARTAN 40 MG TABLET (FP) PO SCH (09:19)
[2018-05-02 11:01] LABS: ANISOCYTOSIS 0; MACROCYTOSIS 0; PLATELET ESTIMATE NORMAL; TARGET CELLS 1+
--- NOTE | 2018-05-02 12:00 | PN ---
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, OFFICE MESSENGER HELPER - Note 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: Selected Entries 05/01/18 05/01/18 05/01/18 01:33 05:58 09:33 Breakfast Lunch Supper Temperature 99.1 F 99.3 F 98.9 F 05/01/18 05/01/18 05/01/18 09:53 10:00 14:00 Breakfast 0 Lunch 50% Supper Temperature 98.3 F 05/01/18 05/01/18 05/01/18 18:00 19:44 22:00 Breakfast Lunch Supper 0 Temperature 98.0 F 97.3 F L 05/02/18 05/02/18 05/02/18 02:00 06:00 10:00 Breakfast 25% Lunch Supper Temperature 98.9 F 98.6 F Laboratory Tests 05/02/18 06:00 WBC 7.5 Palliative care following pt. Plan is for transfer to [place].
--- NOTE | 2018-05-02 13:01 | PN ---
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, Physician History of Present Illness: stable no new issues - Current Medication List Current Medications: Active Medications Acetaminophen (Tylenol Oral Solution -) 650 mg NGT Q6H PRN PRN Reason: FEVER Last Admin: 04/29/18 20:26 Dose: 650 mg Calcium Carbonate/Cholecalciferol (Os-Carmelo 500+D -) 1 tab NGT DAILY [facility] Last Admin: 05/02/18 09:19 Dose: 1 tab Carbidopa/Levodopa (Sinemet 25/100 -) 2 each NGT DAILY@0700,1200,1700 [facility] Last Admin: 05/02/18 12:32 Dose: 2 each Heparin Sodium (Porcine) (Heparin -) 5,000 unit SQ BID [facility] Last Admin: 05/02/18 09:19 Dose: 5,000 unit Sodium Chloride (Normal Saline -) 1,000 mls @ 50 mls/hr IV ASDIR [facility] Last Admin: 05/02/18 01:36 Dose: 50 mls/hr Valsartan (Diovan -) 40 mg PO DAILY [facility] Last Admin: 05/02/18 09:19 Dose: 40 mg - Objective Vital Signs: Vital Signs Temperature 98.6 F 05/02/18 06:00 Pulse Rate 76 05/02/18 06:00 Respiratory Rate 18 05/02/18 09:00 Blood Pressure 143/88 05/02/18 06:00 O2 Sat by Pulse Oximetry (%) 97 05/02/18 09:00 Constitutional: Yes: No Distress, Calm Cardiovascular: Yes: S1, S2 Respiratory: Yes: Regular, CTA Bilaterally Gastrointestinal: Yes: Normal Bowel Sounds, Soft Musculoskeletal: Yes: WNL Extremities: Yes: WNL Neurological: Yes: Alert, Other Psychiatric: Yes: Other Labs: CBC, BMP 05/02/18 06:00 05/02/18 06:00 INR, PTT INR 1.18 (0.83-1.09) H 04/15/18 15:40 Assessment/Plan Sepsis due to UTI / PNA / Colitis Metabolic Encephalopathy Bradycardia Diarrhea GI Bleed Anemia HTN Sacral decubitus ulcer Parkinson's sepsis lethargy weakness hypothermia uti plan continue to monitor off of abx remaining afebrile close watch rest as per cardio and primary team
--- NOTE | 2018-05-02 13:02 | PN ---
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, Physician History of Present Illness: more awake today responding to questions - Current Medication List Current Medications: Active Medications Acetaminophen (Tylenol Oral Solution -) 650 mg NGT Q6H PRN PRN Reason: FEVER Last Admin: 04/29/18 20:26 Dose: 650 mg Calcium Carbonate/Cholecalciferol (Os-Carmelo 500+D -) 1 tab NGT DAILY [facility] Last Admin: 05/02/18 09:19 Dose: 1 tab Carbidopa/Levodopa (Sinemet 25/100 -) 2 each NGT DAILY@0700,1200,1700 [facility] Last Admin: 05/02/18 12:32 Dose: 2 each Heparin Sodium (Porcine) (Heparin -) 5,000 unit SQ BID [facility] Last Admin: 05/02/18 09:19 Dose: 5,000 unit Sodium Chloride (Normal Saline -) 1,000 mls @ 50 mls/hr IV ASDIR [facility] Last Admin: 05/02/18 01:36 Dose: 50 mls/hr Valsartan (Diovan -) 40 mg PO DAILY [facility] Last Admin: 05/02/18 09:19 Dose: 40 mg - Objective Vital Signs: Vital Signs Temperature 98.6 F 05/02/18 06:00 Pulse Rate 76 05/02/18 06:00 Respiratory Rate 18 05/02/18 09:00 Blood Pressure 143/88 05/02/18 06:00 O2 Sat by Pulse Oximetry (%) 97 05/02/18 09:00 Constitutional: Yes: No Distress HENT: Yes: Atraumatic Neck: Yes: Supple Cardiovascular: Yes: Regular Rate and Rhythm Respiratory: Yes: CTA Bilaterally Gastrointestinal: Yes: Normal Bowel Sounds Extremities: Yes: WNL Edema: No Neurological: Yes: Alert, Oriented Labs: CBC, BMP 05/02/18 06:00 05/02/18 06:00 INR, PTT INR 1.18 (0.83-1.09) H 04/15/18 15:40 Problem List - Problems (1) Parkinson disease Assessment/Plan: on meds stable Code(s): G20 - PARKINSON'S DISEASE (2) Sepsis Assessment/Plan: completed abx no fever Code(s): A41.9 - SEPSIS, UNSPECIFIED ORGANISM (3) Urinary tract infection Assessment/Plan: cxs negative Code(s): N39.0 - URINARY TRACT INFECTION, SITE NOT SPECIFIED (4) Altered mental status Assessment/Plan: more awake today Code(s): R41.82 - ALTERED MENTAL STATUS, UNSPECIFIED Qualifiers: Altered mental status type: disorientation Qualified Code(s): R41.0 - Disorientation, unspecified (5) Hypothermia Assessment/Plan: resolved Code(s): T68.XXXA - HYPOTHERMIA, INITIAL ENCOUNTER Qualifiers: Encounter type: subsequent encounter Qualified Code(s): T68.XXXD - Hypothermia, subsequent encounter (6) Rectal bleeding Assessment/Plan: resolved Code(s): K62.5 - HEMORRHAGE OF ANUS AND RECTUM (7) On tube feeding diet Assessment/Plan: not awake enough for swallowing eval family now agree to put peg gi consulted Code(s): Z78.9 - OTHER SPECIFIED HEALTH STATUS
--- NOTE | 2018-05-02 14:06 | PN ---
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, Physician History of Present Illness: Arousable. Valsartan previously d/artemio due to hypotension. Being fed aspiration diet. - Current Medication List Current Medications: Active Medications Acetaminophen (Tylenol Oral Solution -) 650 mg NGT Q6H PRN PRN Reason: FEVER Last Admin: 04/29/18 20:26 Dose: 650 mg Calcium Carbonate/Cholecalciferol (Os-Carmelo 500+D -) 1 tab NGT DAILY [facility] Last Admin: 05/02/18 09:19 Dose: 1 tab Carbidopa/Levodopa (Sinemet 25/100 -) 2 each NGT DAILY@0700,1200,1700 [facility] Last Admin: 05/02/18 12:32 Dose: 2 each Heparin Sodium (Porcine) (Heparin -) 5,000 unit SQ BID [facility] Last Admin: 05/02/18 09:19 Dose: 5,000 unit Sodium Chloride (Normal Saline -) 1,000 mls @ 50 mls/hr IV ASDIR [facility] Last Admin: 05/02/18 01:36 Dose: 50 mls/hr Valsartan (Diovan -) 40 mg PO DAILY [facility] Last Admin: 05/02/18 09:19 Dose: 40 mg - Objective Vital Signs: Vital Signs Temperature 98.6 F 05/02/18 06:00 Pulse Rate 76 05/02/18 06:00 Respiratory Rate 18 05/02/18 09:00 Blood Pressure 143/88 05/02/18 06:00 O2 Sat by Pulse Oximetry (%) 97 05/02/18 09:00 Constitutional: Yes: No Distress, Calm, Thin Neck: Yes: Supple Cardiovascular: Yes: Regular Rate and Rhythm Respiratory: Yes: Regular, Diminished, On Nasal O2 Gastrointestinal: Yes: Soft, Hypoactive Bowel Sounds Edema: No Labs: CBC, BMP 05/02/18 06:00 05/02/18 06:00 INR, PTT INR 1.18 (0.83-1.09) H 04/15/18 15:40 Problem List - Problems (1) Parkinson disease Code(s): G20 - PARKINSON'S DISEASE (2) Acute hypoxemic respiratory failure Code(s): J96.01 - ACUTE RESPIRATORY FAILURE WITH HYPOXIA (3) Altered mental status Code(s): R41.82 - ALTERED MENTAL STATUS, UNSPECIFIED Qualifiers: Altered mental status type: disorientation Qualified Code(s): R41.0 - Disorientation, unspecified (4) Bradycardia Code(s): R00.1 - BRADYCARDIA, UNSPECIFIED (5) E. coli UTI Code(s): N39.0 - URINARY TRACT INFECTION, SITE NOT SPECIFIED; B96.20 - UNSP ESCHERICHIA COLI THE CAUSE OF DISEASES CLASSD ELSWHR (6) Hypothermia Code(s): T68.XXXA - HYPOTHERMIA, INITIAL ENCOUNTER Qualifiers: Encounter type: subsequent encounter Qualified Code(s): T68.XXXD - Hypothermia, subsequent encounter Assessment/Plan Echocardiography dated 07/02/2017 revealed normal LV size and function with diastolic LV dysfunction 1. Acute hypoxic respiratory failure/resolved with underlying chronic lung disease, probable pneumonia with sepsis syndrome 2. CAD angina pectoris 3. Diastolic LV dysfunction with clinical class 0-I NYHA classification LV failure, compensated/euvolemic 4. Hypertension 5. Parkinson's disease/dementia, with altered mental status related to probable sepsis syndrome 6. Bradycardia improved (cannot exclude underlying sinus node dysfunction) and hypothermia since resolved, related to sepsis syndrome 7. CKD 8. UTI/sepsis syndrome 9. Sacral decubitus 10. Hypernatremia 11. Anemia 12. Aspiration risk PLAN: 1. Avoid B-Blockers in view of bradycardia, rechallenge Diovan 40 qd and observe clinical response 2. Mix puree into Ensure/liquid to sip meals, Ensure compact TID, PEG deferred by daughter 3. DVT prophylaxis 4. ? Palliative care ? advanced directives, continue supportive care.
[2018-05-02] MEDS: DEXTROSE 5%-0.45% SALINE 1,000 ML IV SCH (16:33)
[2018-05-02] MEDS: ACETAMINOPHEN 650 MG/20.3 ML ORAL SOLUTION (CUPS) NGT PRN (18:57)
[2018-05-03] MEDS ORDERED: PT OWN MED DRAWER 7, Y5N ONE ×3 (06:02→17:38)
[2018-05-03] MEDS: ACETAMINOPHEN 650 MG/20.3 ML ORAL SOLUTION (CUPS) NGT PRN (06:05)
[2018-05-03] MEDS: CARBIDOPA/LEVODOPA 25/100 TABLET (FP) NGT SCH ×3 (06:05→17:36)
--- NOTE | 2018-05-03 09:50 | PN ---
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 (short form) - Note 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: Chief Complaint: Events noted, notes reviewed, lethargic but arousable, no acute distress, sinus rhythm is noted History of Present Illness: Seen and examined on telemetry. Events noted, notes reviewed, lethargic but arousable, no acute distress, sinus rhythm is noted Echocardiography dated 07/02/2017 revealed normal LV size and function with diastolic LV dysfunction - Current Medication List Current Medications Acetaminophen (Tylenol Oral Solution -) 650 mg NGT Q6H PRN PRN Reason: FEVER Last Admin: 05/03/18 06:05 Dose: 650 mg Calcium Carbonate/Cholecalciferol (Os-Carmelo 500+D -) 1 tab NGT DAILY [facility] Last Admin: 05/02/18 09:19 Dose: 1 tab Carbidopa/Levodopa (Sinemet 25/100 -) 2 each NGT DAILY@0700,1200,1700 [facility] Last Admin: 05/03/18 06:05 Dose: 2 each Dextrose/Sodium Chloride (D5-1/2ns -) 1,000 mls @ 50 mls/hr IV ASDIR [facility] Last Admin: 05/02/18 16:33 Dose: 50 mls/hr Valsartan (Diovan -) 40 mg PO DAILY [facility] Last Admin: 05/02/18 09:19 Dose: 40 mg Review of Systems Unable to obtain - Objective Vital Signs: Last Vital Signs Temp Pulse Resp BP Pulse Ox 99.8 F H 83 18 143/66 95 05/03/18 06:00 05/03/18 06:00 05/03/18 06:00 05/03/18 06:00 05/02/18 21:00 Intake & Output 04/30/18 05/01/18 05/02/18 05/03/18 23:59 23:59 23:59 23:59 Intake Total 820 1210 315 Balance 820 1210 315 Neck: Supple Negative JVD No Bruit Cardiovascular: S1 S2 Regular Rate and Rhythm Chest: Scattered Course Rhonchi Bilaterally Gastrointestinal: Soft Benign Normal Bowel Sounds Ext: Trace Edema Labs: CBC, BMP 05/02/18 06:00 05/02/18 06:00 Assessment/Plan ASSESSMENT: 1. Recent acute hypoxic respiratory failure/resolved, with underlying chronic lung disease, probable pneumonia with sepsis syndrome/resolved 2. CAD angina pectoris 3. Diastolic LV dysfunction with clinical class 0-I NYHA classification LV failure, compensated/euvolemic 4. Hypertension 5. Parkinson's disease/dementia, with altered mental status, failure to thrive 6. Bradycardia (cannot exclude underlying sinus node dysfunction) and hypothermia since resolved, related to sepsis syndrome 7. CKD 8. UTI/sepsis syndrome, resolved 9. Sacral decubitus 10. Hypernatremia, resolved 11. Anemia PLAN: 1. Continue Diovan with caution and close monitoring of renal function 2. As outlined in prior notes avoid B-Blockers related to the above noted bradycardia (cannot exclude underlying sinus node dysfunction) 3. Plan to proceed with PEG insertion, failure to thrive 4. As outlined in prior notes may be transferred to floor (off monitor) care from the cardiovascular point of view Palmira Pratt MD
[2018-05-03] MEDS: VALSARTAN 40 MG TABLET (FP) PO SCH (10:27)
[2018-05-03] MEDS: CALCIUM 500MG/VIT-D 200 UNITS COMBO TABLET (FP) NGT SCH (10:27)
--- NOTE | 2018-05-03 13:24 | PN ---
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, Physician History of Present Illness: Pt is without distress, nonverbal. Tmax 99.8F. - Current Medication List Current Medications: Active Medications Acetaminophen (Tylenol Oral Solution -) 650 mg NGT Q6H PRN PRN Reason: FEVER Last Admin: 05/03/18 06:05 Dose: 650 mg Calcium Carbonate/Cholecalciferol (Os-Carmelo 500+D -) 1 tab NGT DAILY [facility] Last Admin: 05/03/18 10:27 Dose: 1 tab Carbidopa/Levodopa (Sinemet 25/100 -) 2 each NGT DAILY@0700,1200,1700 [facility] Last Admin: 05/03/18 06:05 Dose: 2 each Dextrose/Sodium Chloride (D5-1/2ns -) 1,000 mls @ 50 mls/hr IV ASDIR [facility] Last Admin: 05/02/18 16:33 Dose: 50 mls/hr Valsartan (Diovan -) 40 mg PO DAILY [facility] Last Admin: 05/03/18 10:27 Dose: 40 mg - Objective Vital Signs: Vital Signs Temperature 99.8 F H 05/03/18 06:00 Pulse Rate 83 05/03/18 06:00 Respiratory Rate 18 05/03/18 06:00 Blood Pressure 143/66 05/03/18 06:00 O2 Sat by Pulse Oximetry (%) 95 05/02/18 21:00 Constitutional: Yes: No Distress Cardiovascular: Yes: Regular Rate and Rhythm Respiratory: Yes: Regular, Other (poor inspiratory effort) Gastrointestinal: Yes: Normal Bowel Sounds, Soft Edema: LLE: 1+, RLE: 1+ Peripheral Pulses WNL: Yes Integumentary: Yes: WNL Labs: CBC, BMP 05/02/18 06:00 05/02/18 06:00 INR, PTT INR 1.18 (0.83-1.09) H 04/15/18 15:40 Microbiology 04/27/18 01:45 Blood - Peripheral Venous Blood Culture - Final NO GROWTH AFTER 5 DAYS INCUBATION 04/27/18 01:45 Blood - Peripheral Venous Blood Culture - Final NO GROWTH AFTER 5 DAYS INCUBATION 04/27/18 01:45 Urine - Urine - Catheterized Urine Culture - Final NO GROWTH OBTAINED 04/23/18 10:08 Blood - Peripheral Venous Blood Culture - Final NO GROWTH AFTER 5 DAYS INCUBATION 04/23/18 09:35 Blood - Peripheral Venous Blood Culture - Final NO GROWTH AFTER 5 DAYS INCUBATION 04/25/18 02:35 Stool Salmonella/Shigella Culture - Final NO GROWTH OF SALMONELLA OR SHIGELLA SPECIES OBTAINED 04/25/18 02:35 Stool Campylobacter Culture - Final NO GROWTH OF CAMPYLOBACTER SPECIES OBTAINED 04/25/18 02:35 Stool Yersinia Culture - Final NO GROWTH OF YERSINIA SPECIES OBTAINED 04/25/18 02:35 Stool Vibrio Culture - Final NO GROWTH OF VIBRIO SPECIES OBTAINED 04/25/18 02:35 Stool Escherichia coli 0157 Culture - Final NO GROWTH OF E COLI 0157 OBTAINED 04/19/18 10:30 Blood - Peripheral Venous Blood Culture - Final NO GROWTH AFTER 5 DAYS INCUBATION 04/19/18 10:45 Blood - Peripheral Venous Blood Culture - Final NO GROWTH AFTER 5 DAYS INCUBATION 04/23/18 09:10 Urine - Urine - Catheterized Urine Culture - Final 04/14/18 08:10 Blood - Peripheral Venous Blood Culture - Final NO GROWTH AFTER 5 DAYS INCUBATION 04/14/18 08:30 Blood - Peripheral Venous Blood Culture - Final NO GROWTH AFTER 5 DAYS INCUBATION 04/13/18 16:58 Blood - Peripheral Venous Blood Culture - Final Staphylococcus Epidermidis 04/13/18 18:39 Urine - Urine - Catheterized Urine Culture - Final Proteus Mirabilis 04/13/18 16:58 Blood - Peripheral Venous Blood Culture - Final Staphylococcus Epidermidis 04/14/18 11:50 Stool Clostridium difficile Antigen (ANNA) - Final 04/14/18 11:50 Stool Clostridium difficile Toxin Assay - Final Problem List - Problems (1) Parkinson disease Code(s): G20 - PARKINSON'S DISEASE (2) Sepsis Code(s): A41.9 - SEPSIS, UNSPECIFIED ORGANISM (3) Urinary tract infection Code(s): N39.0 - URINARY TRACT INFECTION, SITE NOT SPECIFIED (4) Acute hypoxemic respiratory failure Code(s): J96.01 - ACUTE RESPIRATORY FAILURE WITH HYPOXIA (5) Altered mental status Code(s): R41.82 - ALTERED MENTAL STATUS, UNSPECIFIED Qualifiers: Altered mental status type: disorientation Qualified Code(s): R41.0 - Disorientation, unspecified Assessment/Plan Septic shock - resolved UTI / PNA / Colitis Metabolic Encephalopathy s/p Acute Hypoxic Respiratory Failure CAD Parkinsons Disease -- mild temp elevation last night, cont. monitor for now, repeat cbc/bmp -- monitor off antibiotics -- aspiration precautions -- repeat blood cultures if persistent fever
[2018-05-03] MEDS: DEXTROSE 5%-0.45% SALINE 1,000 ML IV SCH (17:36)
--- NOTE | 2018-05-03 17:39 | CONS ---
DATE OF CONSULTATION: DATE OF DICTATION: 05/03/2018 GASTROINTESTINAL CONSULTATION The patient is an 78-year-old female with past medical history of Parkinson disease and CAD who was admitted a month ago with complaints of lethargy and weakness. She was treated for a urinary tract infection, pneumonia and septic shock as well as acute hypoxic respiratory failure. During the course, she was noted to have failure to thrive and decreased p.o. intake. Apparently, as per the record, the family has agreed to placement of a percutaneous endoscopic gastrostomy tube. The patient does not offer much history at this time. She is nonverbal but she is awake and without distress. PAST MEDICAL AND SURGICAL HISTORY: These are as listed in the HPI. SOCIAL HISTORY: She does not smoke, drink or use drugs. FAMILY HISTORY: Noncontributory. ALLERGIES: No known drug allergies. HOME MEDICATIONS: These were reviewed. PHYSICAL EXAMINATION: Vital Signs: Temperature 98, pulse 83, blood pressure 108/66, respiratory rate 12, oxygen saturation 96% on room air. General: The patient is in no acute distress. HEENT: Anicteric sclerae. Cardiovascular: S1, S2. Regular rate and rhythm. Lungs: Bilaterally clear to auscultation. Abdomen: Soft and nontender. No surgical scars. Extremities: No edema. LABS: White blood cell count was 7.5, hemoglobin 9.6, hematocrit 30, MCV 70, platelet count 457, INR 1.1, sodium 141, potassium 4, BUN 17, creatinine 0.8, glucose 92, total bilirubin 0.3, AST of 22, ALT of 6, alkaline phosphatase 76. Repeat urine is negative. The patient has had no abdominal imaging. IMPRESSION: Failure to thrive. RECOMMENDATIONS: 1. Risk stratification prior to percutaneous gastrostomy tube placement. We will contact the family regarding the risks and benefits of percutaneous gastrostomy tube placement and explain how placement of the feeding tube does not decrease morbidity and mortality in these patients, nor does it decrease aspiration risk. The general risks of the procedure include perforation, bleeding, infection and sedation. 2. Continue current feeds. 3. Would also add PPI therapy. We will follow this patient. DO ROSIE SMITH/[id number]
--- NOTE | 2018-05-03 21:27 | PN ---
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, Physician - Current Medication List Current Medications: Active Medications Acetaminophen (Tylenol Oral Solution -) 650 mg NGT Q6H PRN PRN Reason: FEVER Last Admin: 05/03/18 06:05 Dose: 650 mg Calcium Carbonate/Cholecalciferol (Os-Carmelo 500+D -) 1 tab NGT DAILY [facility] Last Admin: 05/03/18 10:27 Dose: 1 tab Carbidopa/Levodopa (Sinemet 25/100 -) 2 each NGT DAILY@0700,1200,1700 [facility] Last Admin: 05/03/18 17:36 Dose: 2 each Dextrose/Sodium Chloride (D5-1/2ns -) 1,000 mls @ 50 mls/hr IV ASDIR [facility] Last Admin: 05/03/18 17:36 Dose: 50 mls/hr Valsartan (Diovan -) 40 mg PO DAILY [facility] Last Admin: 05/03/18 10:27 Dose: 40 mg - Objective Vital Signs: Vital Signs Temperature 98.7 F 05/03/18 20:00 Pulse Rate 65 05/03/18 20:00 Respiratory Rate 16 05/03/18 20:00 Blood Pressure 90/66 05/03/18 20:00 O2 Sat by Pulse Oximetry (%) 94 L 05/03/18 20:22 Labs: CBC, BMP 05/02/18 06:00 05/02/18 06:00 INR, PTT INR 1.18 (0.83-1.09) H 04/15/18 15:40 Problem List - Problems (1) Parkinson disease Code(s): G20 - PARKINSON'S DISEASE (2) Sepsis Code(s): A41.9 - SEPSIS, UNSPECIFIED ORGANISM (3) Acute hypoxemic respiratory failure Code(s): J96.01 - ACUTE RESPIRATORY FAILURE WITH HYPOXIA (4) Durxm-oj-etiqxpo kidney injury Code(s): N17.9 - ACUTE KIDNEY FAILURE, UNSPECIFIED; N18.9 - CHRONIC KIDNEY DISEASE, UNSPECIFIED Qualifiers: Acute renal failure type: unspecified
[2018-05-04] MEDS: CARBIDOPA/LEVODOPA 25/100 TABLET (FP) NGT SCH ×3 (06:36→17:05)
[2018-05-04 06:49] LABS: BASO % 1.5 % (0-2.0); EOS % 0.5 % (0-4.5); HEMATOCRIT 34.4 % (32.4-45.2); HEMOGLOBIN 10.5 GM/dL (10.7-15.3); LYMPH % 33.3 % (8-40); MCH 21.5 pg (25.7-33.7); MCHC 30.6 g/dl (32.0-36.0); MEAN CELL VOLUME 70.4 fl (80-96); MEAN PLT VOLUME 8.5 fl (7.5-11.1); MONO % 8.6 % (3.8-10.2); NEUT % 56.1 % (42.8-82.8); PLATELET COUNT 414 K/MM3 (134-434); RBC 4.88 M/mm3 (3.60-5.2); RDW 16.8 % (11.6-15.6); WHITE BLOOD COUNT 7.9 K/mm3 (4.0-10.0)
[2018-05-04 07:37] LABS: ANION GAP 8 MMOL/L (8-16); BLOOD UREA NITROGEN 12 mg/dL (7-18); CALCIUM 8.1 mg/dL (8.5-10.1); CHLORIDE 108 mmol/L (98-107); CO2 25 mmol/L (21-32); CREATININE 0.8 mg/dL (0.55-1.3); GLUCOSE,RANDOM 108 mg/dL (74-106); POTASSIUM 4.2 mmol/L (3.5-5.1); SODIUM 142 mmol/L (136-145)
--- NOTE | 2018-05-04 08:35 | PN ---
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, Physician Chief Complaint: eating better , no new complaints - Current Medication List Current Medications: Active Medications Acetaminophen (Tylenol Oral Solution -) 650 mg NGT Q6H PRN PRN Reason: FEVER Last Admin: 05/03/18 06:05 Dose: 650 mg Calcium Carbonate/Cholecalciferol (Os-Carmelo 500+D -) 1 tab NGT DAILY [facility] Last Admin: 05/03/18 10:27 Dose: 1 tab Carbidopa/Levodopa (Sinemet 25/100 -) 2 each NGT DAILY@0700,1200,1700 [facility] Last Admin: 05/04/18 06:36 Dose: 2 each Dextrose/Sodium Chloride (D5-1/2ns -) 1,000 mls @ 50 mls/hr IV ASDIR [facility] Last Admin: 05/03/18 17:36 Dose: 50 mls/hr Valsartan (Diovan -) 40 mg PO DAILY [facility] Last Admin: 05/03/18 10:27 Dose: 40 mg - Objective Vital Signs: Vital Signs Temperature 97.8 F 05/04/18 06:00 Pulse Rate 68 05/04/18 06:00 Respiratory Rate 18 05/04/18 06:00 Blood Pressure 164/90 05/04/18 06:00 O2 Sat by Pulse Oximetry (%) 94 L 05/03/18 20:22 Constitutional: Yes: Well Nourished, No Distress, Calm Eyes: Yes: WNL HENT: Yes: WNL Neck: Yes: WNL Cardiovascular: Yes: WNL, Regular Rate and Rhythm Respiratory: Yes: WNL, Regular, CTA Bilaterally Gastrointestinal: Yes: WNL, Normal Bowel Sounds, Soft Extremities: Yes: WNL Edema: No Labs: CBC, BMP 05/04/18 06:30 05/04/18 06:30 INR, PTT INR 1.18 (0.83-1.09) H 04/15/18 15:40 Problem List - Problems (1) Parkinson disease Assessment/Plan: - improved PO intake over the past few days - contacted the HCP -- Angela Alvarado - she would prefer to hold off on placement of the gastrostomy tube. - c/w ensure / encourage PO intake - PPI Code(s): G20 - PARKINSON'S DISEASE
--- NOTE | 2018-05-04 08:58 | PN ---
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 (short form) - Note 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: Chief Complaint: Events noted, notes reviewed, awake responds to verbal commands , no acute distress, sinus rhythm is noted History of Present Illness: Seen and examined on telemetry. Events noted, notes reviewed, awake responds to verbal commands, no acute distress, sinus rhythm is noted Echocardiography dated 07/02/2017 revealed normal LV size and function with diastolic LV dysfunction - Current Medication List Current Medications Acetaminophen (Tylenol Oral Solution -) 650 mg NGT Q6H PRN PRN Reason: FEVER Last Admin: 05/03/18 06:05 Dose: 650 mg Calcium Carbonate/Cholecalciferol (Os-Carmelo 500+D -) 1 tab NGT DAILY [facility] Last Admin: 05/03/18 10:27 Dose: 1 tab Carbidopa/Levodopa (Sinemet 25/100 -) 2 each NGT DAILY@0700,1200,1700 [facility] Last Admin: 05/04/18 06:36 Dose: 2 each Dextrose/Sodium Chloride (D5-1/2ns -) 1,000 mls @ 50 mls/hr IV ASDIR [facility] Last Admin: 05/03/18 17:36 Dose: 50 mls/hr Valsartan (Diovan -) 40 mg PO DAILY [facility] Last Admin: 05/03/18 10:27 Dose: 40 mg Review of Systems Unable to obtain - Objective Vital Signs: Last Vital Signs Temp Pulse Resp BP Pulse Ox 97.8 F 68 18 164/90 94 L 05/04/18 06:00 05/04/18 06:00 05/04/18 06:00 05/04/18 06:00 05/03/18 20:22 Intake & Output 05/01/18 05/02/18 05/03/18 05/04/18 23:59 23:59 23:59 23:59 Intake Total 9240 136 0482 350 Balance 0671 883 8377 350 Neck: Supple Negative JVD No Bruit Cardiovascular: S1 S2 Regular Rate and Rhythm Chest: Scattered Rhonchi Bilaterally Gastrointestinal: Soft Benign Normal Bowel Sounds Ext: Trace Edema Labs: CBC, BMP 05/04/18 06:30 05/04/18 06:30 Assessment/Plan ASSESSMENT: 1. Recent acute hypoxic respiratory failure/resolved, with underlying chronic lung disease, probable pneumonia with sepsis syndrome/resolved 2. CAD angina pectoris 3. Diastolic LV dysfunction with clinical class 0-I NYHA classification LV failure, compensated/euvolemic 4. Hypertension 5. Parkinson's disease/dementia, with altered mental status, failure to thrive 6. Bradycardia (cannot exclude underlying sinus node dysfunction) and hypothermia since resolved, related to sepsis syndrome 7. CKD 8. UTI/sepsis syndrome, resolved 9. Sacral decubitus 10. Hypernatremia, resolved 11. Anemia PLAN: 1. Continue Diovan with caution and titrate dosage as needed with close monitoring of renal function 2. As outlined in prior notes avoid B-Blockers related to the above noted bradycardia (cannot exclude underlying sinus node dysfunction) 3. Plan to proceed with PEG insertion, failure to thrive 4. As outlined in prior notes may be transferred to floor (off monitor) care from the cardiovascular point of view Palmira Pratt MD
[2018-05-04] MEDS: VALSARTAN 40 MG TABLET (FP) PO SCH (10:06)
[2018-05-04] MEDS: CALCIUM 500MG/VIT-D 200 UNITS COMBO TABLET (FP) NGT SCH (10:06)
[2018-05-04] MEDS ORDERED: PT OWN MED DRAWER 7, Y5N ONE ×2 (12:07→17:04)
--- NOTE | 2018-05-04 12:20 | PN ---
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, Physician History of Present Illness: Pt is more alert today, responsive. Has been afebrile, without acute distress. - Current Medication List Current Medications: Active Medications Acetaminophen (Tylenol Oral Solution -) 650 mg NGT Q6H PRN PRN Reason: FEVER Last Admin: 05/03/18 06:05 Dose: 650 mg Calcium Carbonate/Cholecalciferol (Os-Carmelo 500+D -) 1 tab NGT DAILY [facility] Last Admin: 05/04/18 10:06 Dose: 1 tab Carbidopa/Levodopa (Sinemet 25/100 -) 2 each NGT DAILY@0700,1200,1700 [facility] Last Admin: 05/04/18 12:14 Dose: 2 each Dextrose/Sodium Chloride (D5-1/2ns -) 1,000 mls @ 50 mls/hr IV ASDIR [facility] Last Admin: 05/03/18 17:36 Dose: 50 mls/hr Valsartan (Diovan -) 40 mg PO DAILY [facility] Last Admin: 05/04/18 10:06 Dose: 40 mg - Objective Vital Signs: Vital Signs Temperature 97.8 F 05/04/18 10:00 Pulse Rate 65 05/04/18 10:00 Respiratory Rate 18 05/04/18 10:00 Blood Pressure 114/67 05/04/18 10:00 O2 Sat by Pulse Oximetry (%) 94 L 05/03/18 20:22 Constitutional: Yes: No Distress, Calm Cardiovascular: Yes: Regular Rate and Rhythm Respiratory: Yes: Regular Gastrointestinal: Yes: Normal Bowel Sounds, Soft Labs: CBC, BMP 05/04/18 06:30 05/04/18 06:30 INR, PTT INR 1.18 (0.83-1.09) H 04/15/18 15:40 Problem List - Problems (1) Parkinson disease Code(s): G20 - PARKINSON'S DISEASE (2) Sepsis Code(s): A41.9 - SEPSIS, UNSPECIFIED ORGANISM (3) Urinary tract infection Code(s): N39.0 - URINARY TRACT INFECTION, SITE NOT SPECIFIED (4) Acute hypoxemic respiratory failure Code(s): J96.01 - ACUTE RESPIRATORY FAILURE WITH HYPOXIA (5) Altered mental status Code(s): R41.82 - ALTERED MENTAL STATUS, UNSPECIFIED Qualifiers: Altered mental status type: disorientation Qualified Code(s): R41.0 - Disorientation, unspecified Assessment/Plan Septic shock - resolved s/p UTI / PNA / Colitis Metabolic Encephalopathy s/p Acute Hypoxic Respiratory Failure CAD Parkinsons Disease -- pt afebrile, more alert -- continue monitor off antibiotics -- aspiration precautions
--- NOTE | 2018-05-04 17:01 | PN ---
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, Physician - Current Medication List Current Medications: Active Medications Acetaminophen (Tylenol Oral Solution -) 650 mg NGT Q6H PRN PRN Reason: FEVER Last Admin: 05/03/18 06:05 Dose: 650 mg Calcium Carbonate/Cholecalciferol (Os-Carmelo 500+D -) 1 tab NGT DAILY [facility] Last Admin: 05/04/18 10:06 Dose: 1 tab Carbidopa/Levodopa (Sinemet 25/100 -) 2 each NGT DAILY@0700,1200,1700 [facility] Last Admin: 05/04/18 12:14 Dose: 2 each Dextrose/Sodium Chloride (D5-1/2ns -) 1,000 mls @ 50 mls/hr IV ASDIR [facility] Last Admin: 05/03/18 17:36 Dose: 50 mls/hr Valsartan (Diovan -) 40 mg PO DAILY [facility] Last Admin: 05/04/18 10:06 Dose: 40 mg - Objective Vital Signs: Vital Signs Temperature 97.9 F 05/04/18 14:00 Pulse Rate 66 05/04/18 14:00 Respiratory Rate 18 05/04/18 14:00 Blood Pressure 98/65 05/04/18 14:00 O2 Sat by Pulse Oximetry (%) 96 05/04/18 10:00 Labs: CBC, BMP 05/04/18 06:30 05/04/18 06:30 INR, PTT INR 1.18 (0.83-1.09) H 04/15/18 15:40 Problem List - Problems (1) Parkinson disease Code(s): G20 - PARKINSON'S DISEASE (2) Sepsis Code(s): A41.9 - SEPSIS, UNSPECIFIED ORGANISM (3) Acute hypoxemic respiratory failure Code(s): J96.01 - ACUTE RESPIRATORY FAILURE WITH HYPOXIA (4) [id number] kidney injury Code(s): N17.9 - ACUTE KIDNEY FAILURE, UNSPECIFIED; N18.9 - CHRONIC KIDNEY DISEASE, UNSPECIFIED Qualifiers: Acute renal failure type: unspecified
[2018-05-04] MEDS: DEXTROSE 5%-0.45% SALINE 1,000 ML IV SCH (17:06)
[2018-05-05] MEDS ORDERED: PT OWN MED DRAWER 7, Y5N ONE ×3 (05:53→22:13)
[2018-05-05] MEDS: CARBIDOPA/LEVODOPA 25/100 TABLET (FP) NGT SCH ×3 (06:01→18:00)
--- NOTE | 2018-05-05 10:39 | PN ---
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, Physician History of Present Illness: Arousable.Tolerating aspiration diet with improved oral intake. - Current Medication List Current Medications: Active Medications Acetaminophen (Tylenol Oral Solution -) 650 mg NGT Q6H PRN PRN Reason: FEVER Last Admin: 05/03/18 06:05 Dose: 650 mg Calcium Carbonate/Cholecalciferol (Os-Carmelo 500+D -) 1 tab NGT DAILY [facility] Last Admin: 05/04/18 10:06 Dose: 1 tab Carbidopa/Levodopa (Sinemet 25/100 -) 2 each NGT DAILY@0700,1200,1700 [facility] Last Admin: 05/05/18 06:01 Dose: 2 each Dextrose/Sodium Chloride (D5-1/2ns -) 1,000 mls @ 50 mls/hr IV ASDIR [facility] Last Admin: 05/04/18 17:06 Dose: 50 mls/hr Valsartan (Diovan -) 40 mg PO DAILY [facility] Last Admin: 05/04/18 10:06 Dose: 40 mg - Objective Vital Signs: Vital Signs Temperature 97.7 F 05/05/18 08:23 Pulse Rate 88 05/05/18 08:23 Respiratory Rate 19 05/05/18 08:23 Blood Pressure 158/91 05/05/18 08:23 O2 Sat by Pulse Oximetry (%) 100 05/05/18 08:23 Constitutional: Yes: No Distress, Calm, Thin Neck: Yes: Supple Cardiovascular: Yes: Regular Rate and Rhythm Respiratory: Yes: Regular, Diminished, On Nasal O2 Gastrointestinal: Yes: Soft, Hypoactive Bowel Sounds Edema: No Labs: CBC, BMP 05/04/18 06:30 05/04/18 06:30 INR, PTT INR 1.18 (0.83-1.09) H 04/15/18 15:40 Problem List - Problems (1) Parkinson disease Code(s): G20 - PARKINSON'S DISEASE (2) Acute hypoxemic respiratory failure Code(s): J96.01 - ACUTE RESPIRATORY FAILURE WITH HYPOXIA (3) Altered mental status Code(s): R41.82 - ALTERED MENTAL STATUS, UNSPECIFIED Qualifiers: Altered mental status type: disorientation Qualified Code(s): R41.0 - Disorientation, unspecified (4) Bradycardia Code(s): R00.1 - BRADYCARDIA, UNSPECIFIED (5) E. coli UTI Code(s): N39.0 - URINARY TRACT INFECTION, SITE NOT SPECIFIED; B96.20 - UNSP ESCHERICHIA COLI THE CAUSE OF DISEASES CLASSD ELSWHR (6) Hypothermia Code(s): T68.XXXA - HYPOTHERMIA, INITIAL ENCOUNTER Qualifiers: Encounter type: subsequent encounter Qualified Code(s): T68.XXXD - Hypothermia, subsequent encounter Assessment/Plan Echocardiography dated 07/02/2017 revealed normal LV size and function with diastolic LV dysfunction 1. Recent acute hypoxic respiratory failure/resolved, with underlying chronic lung disease, probable pneumonia with sepsis syndrome/resolved 2. CAD angina pectoris 3. Diastolic LV dysfunction with clinical class 0-I NYHA classification LV failure, compensated/euvolemic 4. Hypertension 5. Parkinson's disease/dementia, with altered mental status, failure to thrive 6. Bradycardia (cannot exclude underlying sinus node dysfunction) and hypothermia since resolved, related to sepsis syndrome 7. CKD 8. UTI/sepsis syndrome, resolved 9. Sacral decubitus 10. Hypernatremia, resolved 11. Anemia PLAN: 1. Continue Diovan 40 qd with caution and titrate dosage as needed with close monitoring of renal function 2. As outlined in prior notes avoid B-Blockers related to the above noted bradycardia (cannot exclude underlying sinus node dysfunction) 3. PEG insertion deferred as oral intake has improved 4. D/c planning
[2018-05-05] MEDS: CALCIUM 500MG/VIT-D 200 UNITS COMBO TABLET (FP) NGT SCH (10:44)
[2018-05-05] MEDS: VALSARTAN 40 MG TABLET (FP) PO SCH (10:44)
[2018-05-05] MEDS: DEXTROSE 5%-0.45% SALINE 1,000 ML IV SCH ×2 (10:45→18:09)
--- NOTE | 2018-05-05 12:11 | PN ---
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 Pt is a full code. Consider Palliative care f/u regarding pt's wishes
--- NOTE | 2018-05-05 14:53 | PN ---
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, Physician History of Present Illness: no changes family considering peg tube poor nutrition mental status still not at baseline - Current Medication List Current Medications: Active Medications Acetaminophen (Tylenol Oral Solution -) 650 mg NGT Q6H PRN PRN Reason: FEVER Last Admin: 05/03/18 06:05 Dose: 650 mg Calcium Carbonate/Cholecalciferol (Os-Carmelo 500+D -) 1 tab NGT DAILY [facility] Last Admin: 05/05/18 10:44 Dose: 1 tab Carbidopa/Levodopa (Sinemet 25/100 -) 2 each NGT DAILY@0700,1200,1700 [facility] Last Admin: 05/05/18 13:19 Dose: Not Given Dextrose/Sodium Chloride (D5-1/2ns -) 1,000 mls @ 50 mls/hr IV ASDIR [facility] Last Admin: 05/05/18 10:45 Dose: 50 mls/hr Valsartan (Diovan -) 40 mg PO DAILY [facility] Last Admin: 05/05/18 10:44 Dose: 40 mg - Objective Vital Signs: Vital Signs Temperature 98.0 F 05/05/18 13:23 Pulse Rate 71 05/05/18 13:23 Respiratory Rate 18 05/05/18 13:23 Blood Pressure 115/67 05/05/18 13:23 O2 Sat by Pulse Oximetry (%) 100 05/05/18 08:23 Constitutional: Yes: No Distress, Calm Cardiovascular: Yes: S1, S2 Respiratory: Yes: Regular, CTA Bilaterally Gastrointestinal: Yes: Normal Bowel Sounds, Soft Musculoskeletal: Yes: WNL Extremities: Yes: WNL Neurological: Yes: Alert, Other Psychiatric: Yes: Alert Labs: CBC, BMP 05/04/18 06:30 05/04/18 06:30 INR, PTT INR 1.18 (0.83-1.09) H 04/15/18 15:40 Assessment/Plan Sepsis due to UTI / PNA / Colitis Metabolic Encephalopathy Bradycardia Diarrhea GI Bleed Anemia HTN Sacral decubitus ulcer Parkinson's sepsis lethargy weakness hypothermia uti plan continue current mgmt stable off of abx monitor mental status await for final plan
--- NOTE | 2018-05-05 16:57 | PN ---
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, Physician - Current Medication List Current Medications: Active Medications Acetaminophen (Tylenol Oral Solution -) 650 mg NGT Q6H PRN PRN Reason: FEVER Last Admin: 05/03/18 06:05 Dose: 650 mg Calcium Carbonate/Cholecalciferol (Os-Carmelo 500+D -) 1 tab NGT DAILY [facility] Last Admin: 05/05/18 10:44 Dose: 1 tab Carbidopa/Levodopa (Sinemet 25/100 -) 2 each NGT DAILY@0700,1200,1700 [facility] Last Admin: 05/05/18 13:19 Dose: Not Given Dextrose/Sodium Chloride (D5-1/2ns -) 1,000 mls @ 50 mls/hr IV ASDIR [facility] Last Admin: 05/05/18 10:45 Dose: 50 mls/hr Valsartan (Diovan -) 40 mg PO DAILY [facility] Last Admin: 05/05/18 10:44 Dose: 40 mg - Objective Vital Signs: Vital Signs Temperature 98.0 F 05/05/18 13:23 Pulse Rate 71 05/05/18 13:23 Respiratory Rate 18 05/05/18 13:23 Blood Pressure 115/67 05/05/18 13:23 O2 Sat by Pulse Oximetry (%) 100 05/05/18 08:23 Constitutional: Yes: Calm HENT: Yes: Atraumatic Neck: Yes: Supple Cardiovascular: Yes: Regular Rate and Rhythm Respiratory: Yes: CTA Bilaterally Gastrointestinal: Yes: Normal Bowel Sounds Extremities: Yes: WNL Peripheral Pulses WNL: Yes Labs: CBC, BMP 05/04/18 06:30 05/04/18 06:30 INR, PTT INR 1.18 (0.83-1.09) H 04/15/18 15:40 Problem List - Problems (1) Parkinson disease Assessment/Plan: on meds stable Code(s): G20 - PARKINSON'S DISEASE (2) Sepsis Assessment/Plan: completed abx no fever Code(s): A41.9 - SEPSIS, UNSPECIFIED ORGANISM (3) Urinary tract infection Assessment/Plan: cxs negative Code(s): N39.0 - URINARY TRACT INFECTION, SITE NOT SPECIFIED (4) Altered mental status Assessment/Plan: more awake today Code(s): R41.82 - ALTERED MENTAL STATUS, UNSPECIFIED Qualifiers: Altered mental status type: disorientation Qualified Code(s): R41.0 - Disorientation, unspecified (5) Hypothermia Assessment/Plan: resolved Code(s): T68.XXXA - HYPOTHERMIA, INITIAL ENCOUNTER Qualifiers: Encounter type: subsequent encounter Qualified Code(s): T68.XXXD - Hypothermia, subsequent encounter (6) Rectal bleeding Assessment/Plan: resolved Code(s): K62.5 - HEMORRHAGE OF ANUS AND RECTUM (7) On tube feeding diet Assessment/Plan: family refused peg ...stated better po intake Code(s): Z78.9 - OTHER SPECIFIED HEALTH STATUS
[2018-05-06] MEDS: CARBIDOPA/LEVODOPA 25/100 TABLET (FP) NGT SCH ×3 (06:09→17:24)
[2018-05-06] MEDS: DEXTROSE 5%-0.45% SALINE 1,000 ML IV SCH ×2 (06:22→17:29)
[2018-05-06] MEDS ORDERED: PT OWN MED DRAWER 7, Y5N ONE (08:55)
--- NOTE | 2018-05-06 09:14 | PN ---
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 (short form) - Note 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: Chief Complaint: Events noted, notes reviewed, awake and alert responds to verbal commands, no acute distress, sinus rhythm is noted (remains on a monitor) History of Present Illness: Seen and examined on telemetry. Events noted, notes reviewed, awake and alert responds to verbal commands, no acute distress, sinus rhythm is noted (remains on a monitor) Echocardiography dated 07/02/2017 revealed normal LV size and function with diastolic LV dysfunction - Current Medication List Current Medications Acetaminophen (Tylenol Oral Solution -) 650 mg NGT Q6H PRN PRN Reason: FEVER Last Admin: 05/03/18 06:05 Dose: 650 mg Calcium Carbonate/Cholecalciferol (Os-Carmelo 500+D -) 1 tab NGT DAILY [facility] Last Admin: 05/05/18 10:44 Dose: 1 tab Carbidopa/Levodopa (Sinemet 25/100 -) 2 each NGT DAILY@0700,1200,1700 [facility] Last Admin: 05/06/18 06:09 Dose: 2 each Dextrose/Sodium Chloride (D5-1/2ns -) 1,000 mls @ 50 mls/hr IV ASDIR [facility] Last Admin: 05/06/18 06:22 Dose: 50 mls/hr Valsartan (Diovan -) 40 mg PO DAILY [facility] Last Admin: 05/05/18 10:44 Dose: 40 mg Review of Systems Unable to obtain - Objective Vital Signs: Last Vital Signs Temp Pulse Resp BP Pulse Ox 98.5 F 76 18 156/88 98 05/06/18 06:00 05/06/18 06:39 05/06/18 06:39 05/06/18 06:39 05/05/18 21:00 Intake & Output 05/03/18 05/04/18 05/05/18 05/06/18 23:59 23:59 23:59 23:59 Intake Total 1130 675 840 Balance 1130 675 840 Neck: Supple Negative JVD No Bruit Cardiovascular: S1 S2 Regular Rate and Rhythm Chest: Scattered Rhonchi Bilaterally Gastrointestinal: Soft Benign Normal Bowel Sounds Ext: Trace Edema Labs: CBC, BMP 05/04/18 06:30 05/04/18 06:30 Assessment/Plan ASSESSMENT: 1. Recent acute hypoxic respiratory failure/resolved, with underlying chronic lung disease, probable pneumonia with sepsis syndrome/resolved 2. CAD angina pectoris 3. Diastolic LV dysfunction with clinical class 0-I NYHA classification LV failure, compensated/euvolemic 4. Hypertension 5. Parkinson's disease/dementia, with altered mental status, failure to thrive 6. Bradycardia (cannot exclude underlying sinus node dysfunction) and hypothermia since resolved, related to sepsis syndrome 7. CKD 8. UTI/sepsis syndrome, resolved 9. Sacral decubitus 10. Hypernatremia, resolved 11. Anemia, persistent PLAN: 1. Continue Diovan with caution and titrate dosage as needed with close monitoring of renal function 2. As outlined in prior notes avoid B-Blockers related to the above noted bradycardia (cannot exclude underlying sinus node dysfunction) 3. PEG insertion deferred related to increase PO intake 4. As outlined in prior notes may be transferred to floor (off monitor, D/C) care from the cardiovascular point of view Palmira Pratt MD
[2018-05-06] MEDS: VALSARTAN 40 MG TABLET (FP) PO SCH (10:22)
[2018-05-06] MEDS: CALCIUM 500MG/VIT-D 200 UNITS COMBO TABLET (FP) NGT SCH (10:22)
--- NOTE | 2018-05-06 15:27 | PN ---
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, Physician History of Present Illness: family not agreeable to peg oral feeding resumed very poor intake - Current Medication List Current Medications: Active Medications Acetaminophen (Tylenol Oral Solution -) 650 mg NGT Q6H PRN PRN Reason: FEVER Last Admin: 05/03/18 06:05 Dose: 650 mg Calcium Carbonate/Cholecalciferol (Os-Carmelo 500+D -) 1 tab NGT DAILY [facility] Last Admin: 05/06/18 10:22 Dose: 1 tab Carbidopa/Levodopa (Sinemet 25/100 -) 2 each NGT DAILY@0700,1200,1700 [facility] Last Admin: 05/06/18 13:56 Dose: Not Given Dextrose/Sodium Chloride (D5-1/2ns -) 1,000 mls @ 50 mls/hr IV ASDIR [facility] Last Admin: 05/06/18 06:22 Dose: 50 mls/hr Valsartan (Diovan -) 40 mg PO DAILY [facility] Last Admin: 05/06/18 10:22 Dose: 40 mg - Objective Vital Signs: Vital Signs Temperature 98.3 F 05/06/18 14:05 Pulse Rate 76 05/06/18 14:05 Respiratory Rate 16 05/06/18 14:05 Blood Pressure 135/79 05/06/18 14:05 O2 Sat by Pulse Oximetry (%) 99 05/06/18 09:00 Constitutional: Yes: No Distress Cardiovascular: Yes: S1, S2 Respiratory: Yes: Regular, CTA Bilaterally Gastrointestinal: Yes: Normal Bowel Sounds, Soft Musculoskeletal: Yes: WNL Extremities: Yes: WNL Neurological: Yes: Alert, Lethargy Labs: CBC, BMP 05/04/18 06:30 05/04/18 06:30 INR, PTT INR 1.18 (0.83-1.09) H 04/15/18 15:40 Assessment/Plan Sepsis due to UTI / PNA / Colitis Metabolic Encephalopathy Bradycardia Diarrhea GI Bleed Anemia HTN Sacral decubitus ulcer Parkinson's sepsis lethargy weakness hypothermia uti plan continue current mgmt stable off of abx monitor mental status await for final plan nutrition peg tube cancelled by family
--- NOTE | 2018-05-06 16:43 | PN ---
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, Physician History of Present Illness: responding to questions - Current Medication List Current Medications: Active Medications Acetaminophen (Tylenol Oral Solution -) 650 mg NGT Q6H PRN PRN Reason: FEVER Last Admin: 05/03/18 06:05 Dose: 650 mg Calcium Carbonate/Cholecalciferol (Os-Carmelo 500+D -) 1 tab NGT DAILY [facility] Last Admin: 05/06/18 10:22 Dose: 1 tab Carbidopa/Levodopa (Sinemet 25/100 -) 2 each NGT DAILY@0700,1200,1700 [facility] Last Admin: 05/06/18 13:56 Dose: Not Given Dextrose/Sodium Chloride (D5-1/2ns -) 1,000 mls @ 50 mls/hr IV ASDIR [facility] Last Admin: 05/06/18 06:22 Dose: 50 mls/hr Valsartan (Diovan -) 40 mg PO DAILY [facility] Last Admin: 05/06/18 10:22 Dose: 40 mg - Objective Vital Signs: Vital Signs Temperature 98.3 F 05/06/18 14:05 Pulse Rate 76 05/06/18 14:05 Respiratory Rate 16 05/06/18 14:05 Blood Pressure 135/79 05/06/18 14:05 O2 Sat by Pulse Oximetry (%) 99 05/06/18 09:00 Constitutional: Yes: Calm HENT: Yes: Atraumatic Neck: Yes: Supple Cardiovascular: Yes: Regular Rate and Rhythm Respiratory: Yes: CTA Bilaterally Gastrointestinal: Yes: Normal Bowel Sounds Extremities: Yes: WNL Edema: No Peripheral Pulses WNL: Yes Neurological: Yes: Lethargy Labs: CBC, BMP 05/04/18 06:30 05/04/18 06:30 INR, PTT INR 1.18 (0.83-1.09) H 04/15/18 15:40 Problem List - Problems (1) Parkinson disease Assessment/Plan: on meds Code(s): G20 - PARKINSON'S DISEASE (2) Sepsis Assessment/Plan: completed abx no fever Code(s): A41.9 - SEPSIS, UNSPECIFIED ORGANISM (3) Urinary tract infection Assessment/Plan: cxs negative Code(s): N39.0 - URINARY TRACT INFECTION, SITE NOT SPECIFIED (4) Altered mental status Assessment/Plan: more awake today Code(s): R41.82 - ALTERED MENTAL STATUS, UNSPECIFIED Qualifiers: Altered mental status type: disorientation Qualified Code(s): R41.0 - Disorientation, unspecified (5) Hypothermia Assessment/Plan: resolved Code(s): T68.XXXA - HYPOTHERMIA, INITIAL ENCOUNTER Qualifiers: Encounter type: subsequent encounter Qualified Code(s): T68.XXXD - Hypothermia, subsequent encounter (6) Rectal bleeding Code(s): K62.5 - HEMORRHAGE OF ANUS AND RECTUM (7) On tube feeding diet Assessment/Plan: family refused peg ...stated better po intake Code(s): Z78.9 - OTHER SPECIFIED HEALTH STATUS
[2018-05-07] MEDS: DEXTROSE 5%-0.45% SALINE 1,000 ML IV SCH (00:05)
[2018-05-07] MEDS ORDERED: PT OWN MED DRAWER 7, Y5N ONE ×3 (06:20→10:00)
[2018-05-07 06:26] LABS: BASO % 1.1 % (0-2.0); EOS % 0.4 % (0-4.5); HEMATOCRIT 33.9 % (32.4-45.2); HEMOGLOBIN 10.4 GM/dL (10.7-15.3); LYMPH % 23.8 % (8-40); MCH 21.7 pg (25.7-33.7); MCHC 30.6 g/dl (32.0-36.0); MEAN CELL VOLUME 70.9 fl (80-96); MEAN PLT VOLUME 8.2 fl (7.5-11.1); MONO % 7.8 % (3.8-10.2); NEUT % 66.9 % (42.8-82.8); PLATELET COUNT 386 K/MM3 (134-434); RBC 4.78 M/mm3 (3.60-5.2); RDW 16.7 % (11.6-15.6)
[2018-05-07] MEDS: CARBIDOPA/LEVODOPA 25/100 TABLET (FP) NGT SCH ×3 (06:29→17:10)
[2018-05-07 06:47] LABS: ALBUMIN 2.5 g/dl (3.4-5.0); ALK PHOS 82 U/L (45-117); ANION GAP 8 MMOL/L (8-16); BILIRUBIN,TOTAL 0.6 mg/dL (0.2-1); BLOOD UREA NITROGEN 8 mg/dL (7-18); CALCIUM 8.2 mg/dL (8.5-10.1); CHLORIDE 104 mmol/L (98-107); CO2 27 mmol/L (21-32); CREATININE 0.8 mg/dL (0.55-1.3); GLUCOSE,RANDOM 114 mg/dL (74-106); POTASSIUM 3.8 mmol/L (3.5-5.1); SGOT/AST 25 U/L (15-37); SGPT/ALT 15 U/L (13-61); SODIUM 139 mmol/L (136-145); TOT PROT 6.9 g/dl (6.4-8.2)
[2018-05-07 09:20] LABS: ANISOCYTOSIS 1+; MACROCYTOSIS 0; OVALOCYTE 1+; PLATELET ESTIMATE NORMAL; TARGET CELLS 1+
[2018-05-07] MEDS: VALSARTAN 40 MG TABLET (FP) PO SCH (10:09)
[2018-05-07] MEDS: CALCIUM 500MG/VIT-D 200 UNITS COMBO TABLET (FP) NGT SCH (10:09)
--- NOTE | 2018-05-07 10:52 | PN ---
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, Physician History of Present Illness: Arousable.Tolerating aspiration diet with improved oral intake. - Current Medication List Current Medications: Active Medications Acetaminophen (Tylenol Oral Solution -) 650 mg NGT Q6H PRN PRN Reason: FEVER Last Admin: 05/03/18 06:05 Dose: 650 mg Calcium Carbonate/Cholecalciferol (Os-Carmelo 500+D -) 1 tab NGT DAILY [facility] Last Admin: 05/07/18 10:09 Dose: 1 tab Carbidopa/Levodopa (Sinemet 25/100 -) 2 each NGT DAILY@0700,1200,1700 [facility] Last Admin: 05/07/18 06:29 Dose: 2 each Dextrose/Sodium Chloride (D5-1/2ns -) 1,000 mls @ 50 mls/hr IV ASDIR [facility] Last Admin: 05/07/18 00:05 Dose: 50 mls/hr Valsartan (Diovan -) 40 mg PO DAILY [facility] Last Admin: 05/07/18 10:09 Dose: 40 mg - Objective Vital Signs: Vital Signs Temperature 97.5 F L 05/07/18 06:00 Pulse Rate 89 05/07/18 06:00 Respiratory Rate 16 05/07/18 09:00 Blood Pressure 128/89 05/07/18 06:00 O2 Sat by Pulse Oximetry (%) 98 05/07/18 09:00 Constitutional: Yes: No Distress, Calm, Thin Neck: Yes: Supple Cardiovascular: Yes: Regular Rate and Rhythm Respiratory: Yes: Regular, Diminished Gastrointestinal: Yes: Soft, Hypoactive Bowel Sounds Edema: No Labs: CBC, BMP 05/07/18 06:00 05/07/18 06:00 INR, PTT INR 1.18 (0.83-1.09) H 04/15/18 15:40 Problem List - Problems (1) Parkinson disease Code(s): G20 - PARKINSON'S DISEASE (2) Acute hypoxemic respiratory failure Code(s): J96.01 - ACUTE RESPIRATORY FAILURE WITH HYPOXIA (3) Altered mental status Code(s): R41.82 - ALTERED MENTAL STATUS, UNSPECIFIED Qualifiers: Altered mental status type: disorientation Qualified Code(s): R41.0 - Disorientation, unspecified (4) Bradycardia Code(s): R00.1 - BRADYCARDIA, UNSPECIFIED (5) E. coli UTI Code(s): N39.0 - URINARY TRACT INFECTION, SITE NOT SPECIFIED; B96.20 - UNSP ESCHERICHIA COLI THE CAUSE OF DISEASES CLASSD ELSWHR (6) Hypothermia Code(s): T68.XXXA - HYPOTHERMIA, INITIAL ENCOUNTER Qualifiers: Encounter type: subsequent encounter Qualified Code(s): T68.XXXD - Hypothermia, subsequent encounter Assessment/Plan Echocardiography dated 07/02/2017 revealed normal LV size and function with diastolic LV dysfunction 1. Recent acute hypoxic respiratory failure/resolved, with underlying chronic lung disease, probable pneumonia with sepsis syndrome/resolved 2. CAD angina pectoris 3. Diastolic LV dysfunction with clinical class 0-I NYHA classification LV failure, compensated/euvolemic 4. Hypertension 5. Parkinson's disease/dementia, with altered mental status, failure to thrive 6. Bradycardia (cannot exclude underlying sinus node dysfunction) and hypothermia since resolved, related to sepsis syndrome 7. CKD 8. UTI/sepsis syndrome, resolved 9. Sacral decubitus 10. Hypernatremia, resolved 11. Anemia PLAN: 1. Continue Diovan 40 qd with caution and titrate dosage as needed with close monitoring of renal function 2. As outlined in prior notes avoid B-Blockers related to the above noted bradycardia (cannot exclude underlying sinus node dysfunction) 3. PEG insertion deferred as oral intake has improved 4. D/c planning
--- NOTE | 2018-05-07 13:16 | PN ---
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, Physician History of Present Illness: family has refused peg patient stable very poor nutrition more awake - Current Medication List Current Medications: Active Medications Acetaminophen (Tylenol Oral Solution -) 650 mg NGT Q6H PRN PRN Reason: FEVER Last Admin: 05/03/18 06:05 Dose: 650 mg Calcium Carbonate/Cholecalciferol (Os-Carmelo 500+D -) 1 tab NGT DAILY [facility] Last Admin: 05/07/18 10:09 Dose: 1 tab Carbidopa/Levodopa (Sinemet 25/100 -) 2 each NGT DAILY@0700,1200,1700 [facility] Last Admin: 05/07/18 12:34 Dose: 2 each Dextrose/Sodium Chloride (D5-1/2ns -) 1,000 mls @ 50 mls/hr IV ASDIR [facility] Last Admin: 05/07/18 00:05 Dose: 50 mls/hr Valsartan (Diovan -) 40 mg PO DAILY [facility] Last Admin: 05/07/18 10:09 Dose: 40 mg - Objective Vital Signs: Vital Signs Temperature 97.5 F L 05/07/18 06:00 Pulse Rate 89 05/07/18 06:00 Respiratory Rate 16 05/07/18 09:00 Blood Pressure 128/89 05/07/18 06:00 O2 Sat by Pulse Oximetry (%) 98 05/07/18 09:00 Constitutional: Yes: No Distress Cardiovascular: Yes: S1, S2 Respiratory: Yes: Regular, CTA Bilaterally Gastrointestinal: Yes: Normal Bowel Sounds, Soft Musculoskeletal: Yes: WNL Extremities: Yes: WNL Neurological: Yes: Alert Labs: CBC, BMP 05/07/18 06:00 05/07/18 06:00 INR, PTT INR 1.18 (0.83-1.09) H 04/15/18 15:40 Assessment/Plan Sepsis due to UTI / PNA / Colitis Metabolic Encephalopathy Bradycardia Diarrhea GI Bleed Anemia HTN Sacral decubitus ulcer Parkinson's sepsis lethargy weakness hypothermia uti plan continue current mgmt stable off of abx monitor mental status await for final plan nutrition
--- NOTE | 2018-05-07 14:13 | PN ---
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 - Note 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: Selected Entries 05/04/18 05/04/18 05/04/18 00:00 06:00 10:00 Breakfast Lunch Supper Temperature 97.4 F L 97.8 F 97.8 F 05/04/18 05/04/18 05/04/18 14:00 18:40 20:13 Breakfast 25% Lunch 25% Supper Temperature 97.9 F 97.5 F L 97.0 F L 05/04/18 05/05/18 05/05/18 22:54 02:18 06:00 Breakfast Lunch Supper 25% Temperature 97.8 F 98.0 F 05/05/18 05/05/18 08:23 09:10 Breakfast 0 Lunch Supper Temperature 97.7 F Laboratory Tests 05/04/18 06:30 WBC 7.9 Selected Entries 05/06/18 05/06/18 05/06/18 01:29 06:00 10:00 Lunch Temperature 98.1 F 98.5 F 98.6 F 05/06/18 05/06/18 05/06/18 14:05 18:00 21:50 Lunch 0 Temperature 98.3 F 97.8 F 98.1 F 05/07/18 05/07/18 02:00 06:00 Lunch Temperature 98.1 F 97.5 F L Laboratory Tests 05/07/18 06:00 WBC 14.0 H PEG placement being considered to supplement PO intake. Pt is a full code. Seen by Palliative care. f/u regarding pt's wishes
--- NOTE | 2018-05-07 15:27 | PN ---
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, Physician History of Present Illness: responding to questions - Current Medication List Current Medications: Active Medications Acetaminophen (Tylenol Oral Solution -) 650 mg NGT Q6H PRN PRN Reason: FEVER Last Admin: 05/03/18 06:05 Dose: 650 mg Calcium Carbonate/Cholecalciferol (Os-Carmelo 500+D -) 1 tab NGT DAILY [facility] Last Admin: 05/07/18 10:09 Dose: 1 tab Carbidopa/Levodopa (Sinemet 25/100 -) 2 each NGT DAILY@0700,1200,1700 [facility] Last Admin: 05/07/18 12:34 Dose: 2 each Dextrose/Sodium Chloride (D5-1/2ns -) 1,000 mls @ 50 mls/hr IV ASDIR [facility] Last Admin: 05/07/18 00:05 Dose: 50 mls/hr Valsartan (Diovan -) 40 mg PO DAILY [facility] Last Admin: 05/07/18 10:09 Dose: 40 mg - Objective Vital Signs: Vital Signs Temperature 97.9 F 05/07/18 14:05 Pulse Rate 76 05/07/18 14:05 Respiratory Rate 16 05/07/18 14:05 Blood Pressure 120/67 05/07/18 14:05 O2 Sat by Pulse Oximetry (%) 98 05/07/18 09:00 Constitutional: Yes: No Distress HENT: Yes: Atraumatic Neck: Yes: Supple Cardiovascular: Yes: Regular Rate and Rhythm Respiratory: Yes: CTA Bilaterally Gastrointestinal: Yes: Normal Bowel Sounds Extremities: Yes: WNL Edema: No Peripheral Pulses WNL: Yes Neurological: Yes: Lethargy Labs: CBC, BMP 05/07/18 06:00 05/07/18 06:00 INR, PTT INR 1.18 (0.83-1.09) H 04/15/18 15:40 Problem List - Problems (1) Parkinson disease Assessment/Plan: on meds Code(s): G20 - PARKINSON'S DISEASE (2) Sepsis Assessment/Plan: completed abx no fever Code(s): A41.9 - SEPSIS, UNSPECIFIED ORGANISM (3) Urinary tract infection Assessment/Plan: ua positive for uti cxs pending consulted id Code(s): N39.0 - URINARY TRACT INFECTION, SITE NOT SPECIFIED (4) Altered mental status Assessment/Plan: still lethargic but responds to questions Code(s): R41.82 - ALTERED MENTAL STATUS, UNSPECIFIED Qualifiers: Altered mental status type: disorientation Qualified Code(s): R41.0 - Disorientation, unspecified (5) Hypothermia Assessment/Plan: resolved Code(s): T68.XXXA - HYPOTHERMIA, INITIAL ENCOUNTER Qualifiers: Encounter type: subsequent encounter Qualified Code(s): T68.XXXD - Hypothermia, subsequent encounter (6) Rectal bleeding Code(s): K62.5 - HEMORRHAGE OF ANUS AND RECTUM (7) On tube feeding diet Assessment/Plan: family refused peg ...stated better po intake Code(s): Z78.9 - OTHER SPECIFIED HEALTH STATUS
--- NOTE | 2018-05-07 15:28 | DS ---
Physical Examination Vital Signs: Vital Signs Temperature 97.9 F 05/07/18 14:05 Pulse Rate 76 05/07/18 14:05 Respiratory Rate 16 05/07/18 14:05 Blood Pressure 120/67 05/07/18 14:05 O2 Sat by Pulse Oximetry (%) 98 05/07/18 09:00 Labs: CBC, BMP 05/07/18 06:00 05/07/18 06:00 Discharge Summary Reason For Visit: URINARY TRACT INFECTION/SEPSIS Current Active Problems On tube feeding diet (Acute) Parkinson disease (Acute) Rectal bleeding (Acute) Sepsis (Acute) Urinary tract infection (Acute) - Instructions Referrals: Emily Mckeon MD [Primary Care Provider] - - Home Medications Comprehensive Discharge Medication List: Ambulatory Orders Acetaminophen 500 mg PO DAILY 04/13/18 Aspirin 81 mg PO DAILY 04/13/18 Ca/D3/Mag Ox/Zinc/Local Operator/Ketan/Bor [Calcium 600-D3 Plus Caplet] 1 each PO DAILY Carbidopa/Levodopa [Carbidopa-Levo ER 50-200 Tab] 1 each PO TID 04/13/18 Rotigotine [Neupro] 2 mg TD DAILY 04/13/18 Valsartan [Diovan] 40 mg PO DAILY #30 tablet 05/06/18
[2018-05-07 17:44] LABS: URINE APPEARANCE SLCLOUDY; URINE BILIRUBIN NEGATIVE (<2.0 mg/dL); URINE COLOR LTYELLOW; URINE GLUCOSE (UA) NEGATIVE (NEGATIVE); URINE KETONE NEGATIVE (NEGATIVE); URINE LEUK ESTERASE 3+ (NEGATIVE); URINE NITRITE POSITIVE (NEGATIVE); URINE PROTEIN NEGATIVE (NEGATIVE); URINE UROBILINOGEN NEGATIVE mg/dL (0.2-1.0)
[2018-05-07 17:53] LABS: EPI CELLS RARE /HPF (FEW); URINE BACTERIA MODERATE /hpf (NONE SEEN)
[2018-05-07] MEDS ORDERED: cefTRIAXone SODIUM 1 GM VIAL ONE (22:06)
[2018-05-07] MEDS ORDERED: DEXTROSE 5%-WATER - 50 ML IVPB ONE (22:06)
[2018-05-07] MEDS: CEFTRIAXONE 1 GM in DEXTROSE 5%-WATER - 50 ML IVPB SCH (22:11)
[2018-05-08] MEDS ORDERED: PT OWN MED DRAWER 7, Y5N ONE ×2 (05:52→13:02)
[2018-05-08] MEDS: CARBIDOPA/LEVODOPA 25/100 TABLET (FP) NGT SCH ×3 (06:07→16:46)
[2018-05-08] MEDS ORDERED: cefTRIAXone SODIUM 1 GM VIAL ONE (09:13)
[2018-05-08] MEDS ORDERED: DEXTROSE 5%-WATER - 50 ML IVPB ONE (09:14)
[2018-05-08] MEDS: CEFTRIAXONE 1 GM in DEXTROSE 5%-WATER - 50 ML IVPB SCH (09:30)
[2018-05-08] MEDS: CALCIUM 500MG/VIT-D 200 UNITS COMBO TABLET (FP) NGT SCH (09:30)
[2018-05-08] MEDS: VALSARTAN 40 MG TABLET (FP) PO SCH (09:31)
--- NOTE | 2018-05-08 10:08 | PN ---
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, Physician History of Present Illness: Arousable.Tolerating aspiration diet with improved oral intake. - Current Medication List Current Medications: Active Medications Acetaminophen (Tylenol Oral Solution -) 650 mg NGT Q6H PRN PRN Reason: FEVER Last Admin: 05/03/18 06:05 Dose: 650 mg Calcium Carbonate/Cholecalciferol (Os-Carmelo 500+D -) 1 tab NGT DAILY [facility] Last Admin: 05/08/18 09:30 Dose: 1 tab Carbidopa/Levodopa (Sinemet 25/100 -) 2 each NGT DAILY@0700,1200,1700 [facility] Last Admin: 05/08/18 06:07 Dose: 2 each Dextrose/Sodium Chloride (D5-1/2ns -) 1,000 mls @ 50 mls/hr IV ASDIR [facility] Last Admin: 05/07/18 00:05 Dose: 50 mls/hr Ceftriaxone Sodium 1 gm/ (Dextrose) 50 mls @ 100 mls/hr IVPB DAILY [facility]; Protocol Last Admin: 05/08/18 09:30 Dose: 100 mls/hr Valsartan (Diovan -) 40 mg PO DAILY [facility] Last Admin: 05/08/18 09:31 Dose: Not Given - Objective Vital Signs: Vital Signs Temperature 99.2 F 05/08/18 08:40 Pulse Rate 74 05/08/18 08:40 Respiratory Rate 18 05/08/18 08:40 Blood Pressure 93/63 05/08/18 08:40 O2 Sat by Pulse Oximetry (%) 97 05/07/18 21:00 Constitutional: Yes: No Distress, Calm, Thin Neck: Yes: Supple Cardiovascular: Yes: Regular Rate and Rhythm Respiratory: Yes: Regular, Diminished Gastrointestinal: Yes: Soft, Hypoactive Bowel Sounds Edema: No Labs: CBC, BMP 05/07/18 06:00 05/07/18 06:00 INR, PTT INR 1.18 (0.83-1.09) H 04/15/18 15:40 Problem List - Problems (1) Parkinson disease Code(s): G20 - PARKINSON'S DISEASE (2) Acute hypoxemic respiratory failure Code(s): J96.01 - ACUTE RESPIRATORY FAILURE WITH HYPOXIA (3) Altered mental status Code(s): R41.82 - ALTERED MENTAL STATUS, UNSPECIFIED Qualifiers: Altered mental status type: disorientation Qualified Code(s): R41.0 - Disorientation, unspecified (4) Bradycardia Code(s): R00.1 - BRADYCARDIA, UNSPECIFIED (5) E. coli UTI Code(s): N39.0 - URINARY TRACT INFECTION, SITE NOT SPECIFIED; B96.20 - UNSP ESCHERICHIA COLI THE CAUSE OF DISEASES CLASSD ELSWHR (6) Hypothermia Code(s): T68.XXXA - HYPOTHERMIA, INITIAL ENCOUNTER Qualifiers: Encounter type: subsequent encounter Qualified Code(s): T68.XXXD - Hypothermia, subsequent encounter Assessment/Plan Echocardiography dated 07/02/2017 revealed normal LV size and function with diastolic LV dysfunction 1. Recent acute hypoxic respiratory failure/resolved, with underlying chronic lung disease, probable pneumonia with sepsis syndrome/resolved 2. CAD angina pectoris 3. Diastolic LV dysfunction with clinical class 0-I NYHA classification LV failure, compensated/euvolemic 4. Hypertension 5. Parkinson's disease/dementia, with altered mental status, failure to thrive 6. Bradycardia (cannot exclude underlying sinus node dysfunction) and hypothermia since resolved, related to sepsis syndrome 7. CKD 8. UTI/sepsis syndrome, resolved 9. Sacral decubitus 10. Hypernatremia, resolved 11. Anemia PLAN: 1. Continue Diovan 40 qd as hemodynamics tolerate with close monitoring of renal function and electrolytes 2. As outlined in prior notes avoid B-Blockers related to the above noted bradycardia (cannot exclude underlying sinus node dysfunction) 3. PEG insertion deferred as oral intake has improved 4. Complete abx course, d/c planning
--- NOTE | 2018-05-08 13:59 | PN ---
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, Physician History of Present Illness: family agree for the peg tube patient more awake - Current Medication List Current Medications: Active Medications Acetaminophen (Tylenol Oral Solution -) 650 mg NGT Q6H PRN PRN Reason: FEVER Last Admin: 05/03/18 06:05 Dose: 650 mg Calcium Carbonate/Cholecalciferol (Os-Carmelo 500+D -) 1 tab NGT DAILY [facility] Last Admin: 05/08/18 09:30 Dose: 1 tab Carbidopa/Levodopa (Sinemet 25/100 -) 2 each NGT DAILY@0700,1200,1700 [facility] Last Admin: 05/08/18 13:12 Dose: 2 each Dextrose/Sodium Chloride (D5-1/2ns -) 1,000 mls @ 50 mls/hr IV ASDIR [facility] Last Admin: 05/07/18 00:05 Dose: 50 mls/hr Ceftriaxone Sodium 1 gm/ (Dextrose) 50 mls @ 100 mls/hr IVPB DAILY [facility]; Protocol Last Admin: 05/08/18 09:30 Dose: 100 mls/hr Valsartan (Diovan -) 40 mg PO DAILY [facility] Last Admin: 05/08/18 09:31 Dose: Not Given - Objective Vital Signs: Vital Signs Temperature 99.2 F 05/08/18 08:40 Pulse Rate 74 05/08/18 08:40 Respiratory Rate 18 05/08/18 09:00 Blood Pressure 93/63 05/08/18 08:40 O2 Sat by Pulse Oximetry (%) 97 05/08/18 09:00 Constitutional: Yes: No Distress, Calm Cardiovascular: Yes: S1, S2 Respiratory: Yes: Regular, CTA Bilaterally Gastrointestinal: Yes: Normal Bowel Sounds, Soft Musculoskeletal: Yes: WNL Extremities: Yes: WNL Neurological: Yes: Alert Labs: CBC, BMP 05/07/18 06:00 05/07/18 06:00 INR, PTT INR 1.18 (0.83-1.09) H 04/15/18 15:40 Assessment/Plan Sepsis due to UTI / PNA / Colitis Metabolic Encephalopathy Bradycardia Diarrhea GI Bleed Anemia HTN Sacral decubitus ulcer Parkinson's sepsis lethargy weakness hypothermia uti plan continue current mgmt stable off of abx monitor mental status await for final plan nutrition peg tube
--- NOTE | 2018-05-08 14:41 | PN ---
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, Physician History of Present Illness: responding to questions - Current Medication List Current Medications: Active Medications Acetaminophen (Tylenol Oral Solution -) 650 mg NGT Q6H PRN PRN Reason: FEVER Last Admin: 05/03/18 06:05 Dose: 650 mg Calcium Carbonate/Cholecalciferol (Os-Carmelo 500+D -) 1 tab NGT DAILY [facility] Last Admin: 05/08/18 09:30 Dose: 1 tab Carbidopa/Levodopa (Sinemet 25/100 -) 2 each NGT DAILY@0700,1200,1700 [facility] Last Admin: 05/08/18 13:12 Dose: 2 each Dextrose/Sodium Chloride (D5-1/2ns -) 1,000 mls @ 50 mls/hr IV ASDIR [facility] Last Admin: 05/07/18 00:05 Dose: 50 mls/hr Ceftriaxone Sodium 1 gm/ (Dextrose) 50 mls @ 100 mls/hr IVPB DAILY [facility]; Protocol Last Admin: 05/08/18 09:30 Dose: 100 mls/hr Valsartan (Diovan -) 40 mg PO DAILY [facility] Last Admin: 05/08/18 09:31 Dose: Not Given - Objective Vital Signs: Vital Signs Temperature 98.6 F 05/08/18 14:05 Pulse Rate 71 05/08/18 14:05 Respiratory Rate 16 05/08/18 14:05 Blood Pressure 93/49 L 05/08/18 14:05 O2 Sat by Pulse Oximetry (%) 97 05/08/18 09:00 Constitutional: Yes: Calm HENT: Yes: Atraumatic Neck: Yes: Supple Cardiovascular: Yes: Regular Rate and Rhythm Respiratory: Yes: CTA Bilaterally, Rhonchi Gastrointestinal: Yes: Normal Bowel Sounds Extremities: Yes: WNL Edema: LLE: Trace, RLE: Trace Peripheral Pulses WNL: Yes Neurological: Yes: Alert, Oriented Labs: CBC, BMP 05/07/18 06:00 05/07/18 06:00 INR, PTT INR 1.18 (0.83-1.09) H 04/15/18 15:40 Problem List - Problems (1) Parkinson disease Assessment/Plan: on meds ..as per RN taking meds with applesauce Code(s): G20 - PARKINSON'S DISEASE (2) Sepsis Assessment/Plan: ucx pending on abx Code(s): A41.9 - SEPSIS, UNSPECIFIED ORGANISM (3) Urinary tract infection Assessment/Plan: ua positive for uti cxs pending consulted id Code(s): N39.0 - URINARY TRACT INFECTION, SITE NOT SPECIFIED (4) Altered mental status Assessment/Plan: still lethargic but responds to questions Code(s): R41.82 - ALTERED MENTAL STATUS, UNSPECIFIED Qualifiers: Altered mental status type: disorientation Qualified Code(s): R41.0 - Disorientation, unspecified (5) Hypothermia Assessment/Plan: resolved Code(s): T68.XXXA - HYPOTHERMIA, INITIAL ENCOUNTER Qualifiers: Encounter type: subsequent encounter Qualified Code(s): T68.XXXD - Hypothermia, subsequent encounter (6) Rectal bleeding Assessment/Plan: resolved Code(s): K62.5 - HEMORRHAGE OF ANUS AND RECTUM (7) On tube feeding diet Assessment/Plan: i spoke with daughter erin she agrees for peg as patient has very poor intake will reconsult gi Code(s): Z78.9 - OTHER SPECIFIED HEALTH STATUS
--- NOTE | 2018-05-08 15:43 | PN ---
GI 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 Subjective: Called to reevaluate for feeding tube. Daughter now agreeable Per nursing, the patient has had poor PO intake, refusing to take PO even when being fed. She does take meds with applesauce WBC noted to be rising - Objective Vital Signs: Vital Signs Temperature 98.6 F 05/08/18 14:05 Pulse Rate 71 05/08/18 14:05 Respiratory Rate 16 05/08/18 14:05 Blood Pressure 93/49 L 05/08/18 14:05 O2 Sat by Pulse Oximetry (%) 97 05/08/18 09:00 Constitutional: Calm Eyes: No: Sclera Icterus Cardiovascular: Yes: Regular Rate and Rhythm Respiratory: Yes: Diminished (at bases bilaterally with poor insp effort) Edema: No (Trace LE edema) Neurological: Yes: Other (opens eyes when awoken) Labs: CBC, BMP 05/07/18 06:00 05/07/18 06:00 INR, PTT INR 1.18 (0.83-1.09) H 04/15/18 15:40 Problem List - Problems (1) Failure to thrive in adult Assessment/Plan: Discussed PEG placement with Patient's Daughter Angela. We discussed alternate means of gastorstomy tube placement wsuch as surgical placement and radiographic placement by IR. We discussed PEG. We discussed potential risks of the procedure like but not limited to bleeding, perforation requiring surgery to repair, infection, aspiration, sedation medication effects, tube dislodgement leading to peritonitis all of which could be potenaitlly life threatening. We also discussed not placing feeding tube. She stated that she gave her mother another week to see if she would improves and she didn't. Wants to proceed with PEG. If WBC continue to rise, would defer until source identified and treated prior to PEG placement. Check CBC in AM Code(s): R62.7 - ADULT FAILURE TO THRIVE (2) Rectal bleeding Assessment/Plan: No bleeding Code(s): K62.5 - HEMORRHAGE OF ANUS AND RECTUM
[2018-05-08] MEDS: DEXTROSE 5%-0.45% SALINE 1,000 ML IV SCH (16:55)
[2018-05-08 20:27] LABS: BASO % 0.7 % (0-2.0); EOS % 0.6 % (0-4.5); HEMATOCRIT 29.8 % (32.4-45.2); HEMOGLOBIN 9.7 GM/dL (10.7-15.3); LYMPH % 27.1 % (8-40); MCH 22.8 pg (25.7-33.7); MCHC 32.5 g/dl (32.0-36.0); MEAN CELL VOLUME 70.1 fl (80-96); MEAN PLT VOLUME 8.6 fl (7.5-11.1); MONO % 8.2 % (3.8-10.2); NEUT % 63.4 % (42.8-82.8); PLATELET COUNT 363 K/MM3 (134-434); RBC 4.25 M/mm3 (3.60-5.2); RDW 17.2 % (11.6-15.6); WHITE BLOOD COUNT 10.7 K/mm3 (4.0-10.0)
[2018-05-08 20:44] LABS: ALBUMIN 2.4 g/dl (3.4-5.0); ALK PHOS 69 U/L (45-117); ANION GAP 9 MMOL/L (8-16); BILIRUBIN,TOTAL 0.3 mg/dL (0.2-1); BLOOD UREA NITROGEN 11 mg/dL (7-18); CHLORIDE 105 mmol/L (98-107); CO2 27 mmol/L (21-32); CREATININE 0.9 mg/dL (0.55-1.3); GLUCOSE,RANDOM 123 mg/dL (74-106); POTASSIUM 3.4 mmol/L (3.5-5.1); SGOT/AST 22 U/L (15-37); SGPT/ALT < 6 U/L (13-61); SODIUM 140 mmol/L (136-145); TOT PROT 6.2 g/dl (6.4-8.2)
[2018-05-09] MEDS ORDERED: PT OWN MED DRAWER 7, Y5N ONE (05:04)
[2018-05-09] MEDS: CARBIDOPA/LEVODOPA 25/100 TABLET (FP) NGT SCH ×3 (06:09→16:52)
[2018-05-09 07:23] LABS: BASO % 0.6 % (0-2.0); EOS % 0.8 % (0-4.5); HEMATOCRIT 32.8 % (32.4-45.2); HEMOGLOBIN 10.2 GM/dL (10.7-15.3); LYMPH % 24.7 % (8-40); MCH 21.9 pg (25.7-33.7); MCHC 31.2 g/dl (32.0-36.0); MEAN CELL VOLUME 70.1 fl (80-96); MEAN PLT VOLUME 8.3 fl (7.5-11.1); MONO % 6.7 % (3.8-10.2); NEUT % 67.2 % (42.8-82.8); PLATELET COUNT 337 K/MM3 (134-434); RBC 4.68 M/mm3 (3.60-5.2); RDW 17.4 % (11.6-15.6); WHITE BLOOD COUNT 8.9 K/mm3 (4.0-10.0)
[2018-05-09 08:14] LABS: INR 1.23 (0.83-1.09); PROTHROMBIN TIME (PATIENT) 14.5 SEC (9.7-13.0)
[2018-05-09 08:16] LABS: ACTIVATED PTT 28.6 SECONDS (25.2-36.5)
[2018-05-09 08:18] LABS: ALBUMIN 2.5 g/dl (3.4-5.0); ALK PHOS 73 U/L (45-117); ANION GAP 7 MMOL/L (8-16); BILIRUBIN,TOTAL 0.3 mg/dL (0.2-1); BLOOD UREA NITROGEN 11 mg/dL (7-18); CHLORIDE 106 mmol/L (98-107); CO2 26 mmol/L (21-32); CREATININE 0.7 mg/dL (0.55-1.3); GLUCOSE,RANDOM 111 mg/dL (74-106); POTASSIUM 3.6 mmol/L (3.5-5.1); SGOT/AST 23 U/L (15-37); SGPT/ALT < 6 U/L (13-61); SODIUM 139 mmol/L (136-145); TOT PROT 6.6 g/dl (6.4-8.2)
[2018-05-09] MEDS ORDERED: cefTRIAXone SODIUM 1 GM VIAL ONE (08:26)
[2018-05-09] MEDS ORDERED: DEXTROSE 5%-WATER - 50 ML IVPB ONE (08:27)
--- NOTE | 2018-05-09 09:26 | PN ---
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, Physician History of Present Illness: Arousable. PEG insertion agreed to since oral intake has declined. - Current Medication List Current Medications: Active Medications Acetaminophen (Tylenol Oral Solution -) 650 mg NGT Q6H PRN PRN Reason: FEVER Last Admin: 05/03/18 06:05 Dose: 650 mg Calcium Carbonate/Cholecalciferol (Os-Carmelo 500+D -) 1 tab NGT DAILY [facility] Last Admin: 05/08/18 09:30 Dose: 1 tab Carbidopa/Levodopa (Sinemet 25/100 -) 2 each NGT DAILY@0700,1200,1700 [facility] Last Admin: 05/09/18 06:09 Dose: 2 each Dextrose/Sodium Chloride (D5-1/2ns -) 1,000 mls @ 50 mls/hr IV ASDIR [facility] Last Admin: 05/08/18 16:55 Dose: 50 mls/hr Ceftriaxone Sodium 1 gm/ (Dextrose) 50 mls @ 100 mls/hr IVPB DAILY [facility]; Protocol Last Admin: 05/08/18 09:30 Dose: 100 mls/hr Valsartan (Diovan -) 40 mg PO DAILY [facility] Last Admin: 05/08/18 09:31 Dose: Not Given - Objective Vital Signs: Vital Signs Temperature 98.8 F 05/09/18 07:44 Pulse Rate 72 05/09/18 07:44 Respiratory Rate 18 05/09/18 07:54 Blood Pressure 125/68 05/09/18 07:44 O2 Sat by Pulse Oximetry (%) 93 L 05/09/18 07:54 Constitutional: Yes: No Distress, Calm, Thin Neck: Yes: Supple Cardiovascular: Yes: Regular Rate and Rhythm Respiratory: Yes: Regular, Diminished Gastrointestinal: Yes: Soft, Hypoactive Bowel Sounds Edema: No Labs: CBC, BMP 05/09/18 06:58 05/09/18 06:58 INR, PTT INR 1.23 (0.83-1.09) H 05/09/18 06:58 - ....Imaging EKG: Report Reviewed (Tele: jason GIL) Problem List - Problems (1) Parkinson disease Code(s): G20 - PARKINSON'S DISEASE (2) Acute hypoxemic respiratory failure Code(s): J96.01 - ACUTE RESPIRATORY FAILURE WITH HYPOXIA (3) Altered mental status Code(s): R41.82 - ALTERED MENTAL STATUS, UNSPECIFIED Qualifiers: Altered mental status type: disorientation Qualified Code(s): R41.0 - Disorientation, unspecified (4) Bradycardia Code(s): R00.1 - BRADYCARDIA, UNSPECIFIED (5) E. coli UTI Code(s): N39.0 - URINARY TRACT INFECTION, SITE NOT SPECIFIED; B96.20 - UNSP ESCHERICHIA COLI THE CAUSE OF DISEASES CLASSD ELSWHR (6) Hypothermia Code(s): T68.XXXA - HYPOTHERMIA, INITIAL ENCOUNTER Qualifiers: Encounter type: subsequent encounter Qualified Code(s): T68.XXXD - Hypothermia, subsequent encounter Assessment/Plan Echocardiography dated 07/02/2017 revealed normal LV size and function with diastolic LV dysfunction 1. Recent acute hypoxic respiratory failure/resolved, with underlying chronic lung disease, probable pneumonia with sepsis syndrome/resolved 2. CAD angina pectoris 3. Diastolic LV dysfunction with clinical class 0-I NYHA classification LV failure, compensated/euvolemic 4. Hypertension 5. Parkinson's disease/dementia, with altered mental status, failure to thrive 6. Bradycardia (cannot exclude underlying sinus node dysfunction) and hypothermia since resolved, related to sepsis syndrome 7. CKD 8. UTI/sepsis syndrome, resolved 9. Sacral decubitus 10. Hypernatremia, resolved 11. Anemia PLAN: 1. Continue Diovan 40 qd as hemodynamics tolerate with close monitoring of renal function and electrolytes 2. As outlined in prior notes avoid B-Blockers related to the above noted bradycardia (cannot exclude underlying sinus node dysfunction) 3. PEG insertion agreed upon as oral intake has decreased, may proceed from CV- standpoint 4. Complete abx course
[2018-05-09] MEDS: CEFTRIAXONE 1 GM in DEXTROSE 5%-WATER - 50 ML IVPB SCH (09:35)
[2018-05-09] MEDS: VALSARTAN 40 MG TABLET (FP) PO SCH (09:35)
[2018-05-09] MEDS: CALCIUM 500MG/VIT-D 200 UNITS COMBO TABLET (FP) NGT SCH (09:35)
[2018-05-09] MEDS ORDERED: CEFAZOLIN 1 GM/D5W 1 GM/50 ML BAG ONE (11:40)
[2018-05-09] MEDS ORDERED: ceFAZolin SODIUM 1 GM VIAL IVPB ONE (11:43)
--- NOTE | 2018-05-09 12:09 | PN ---
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 (short form) - Note 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: EGD/PEG complete. Report placed in procedural section of physical chart and to be scanned into [employer] Problem List - Problems (1) Failure to thrive in adult Code(s): R62.7 - ADULT FAILURE TO THRIVE (2) Rectal bleeding Code(s): K62.5 - HEMORRHAGE OF ANUS AND RECTUM
--- NOTE | 2018-05-09 14:43 | PN ---
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, Physician History of Present Illness: patient more awake and alert had a peg placed - Current Medication List Current Medications: Active Medications Acetaminophen (Tylenol Oral Solution -) 650 mg NGT Q6H PRN PRN Reason: FEVER Last Admin: 05/03/18 06:05 Dose: 650 mg Bacitracin (Bacitracin -) 1 applic TP BID [facility] Stop: 05/15/18 09:59 Calcium Carbonate/Cholecalciferol (Os-Carmelo 500+D -) 1 tab NGT DAILY [facility] Last Admin: 05/09/18 09:35 Dose: 1 tab Carbidopa/Levodopa (Sinemet 25/100 -) 2 each NGT DAILY@0700,1200,1700 [facility] Last Admin: 05/09/18 12:55 Dose: 2 each Dextrose/Sodium Chloride (D5-1/2ns -) 1,000 mls @ 50 mls/hr IV ASDIR [facility] Last Admin: 05/08/18 16:55 Dose: 50 mls/hr Ceftriaxone Sodium 1 gm/ (Dextrose) 50 mls @ 100 mls/hr IVPB DAILY [facility]; Protocol Last Admin: 05/09/18 09:35 Dose: 100 mls/hr Valsartan (Diovan -) 40 mg PO DAILY [facility] Last Admin: 05/09/18 09:35 Dose: 40 mg - Objective Vital Signs: Vital Signs Temperature 97.5 F L 05/09/18 13:41 Pulse Rate 72 05/09/18 13:41 Respiratory Rate 16 05/09/18 13:41 Blood Pressure 130/78 05/09/18 13:41 O2 Sat by Pulse Oximetry (%) 100 05/09/18 12:44 Constitutional: Yes: No Distress Cardiovascular: Yes: Regular Rate and Rhythm Respiratory: Yes: Regular, CTA Bilaterally Gastrointestinal: Yes: Normal Bowel Sounds, Soft Musculoskeletal: Yes: WNL Extremities: Yes: WNL Neurological: Yes: Alert, Other Labs: CBC, BMP 05/09/18 06:58 05/09/18 06:58 INR, PTT INR 1.23 (0.83-1.09) H 05/09/18 06:58 Assessment/Plan Sepsis due to UTI / PNA / Colitis Metabolic Encephalopathy Bradycardia Diarrhea GI Bleed Anemia HTN Sacral decubitus ulcer Parkinson's sepsis lethargy weakness hypothermia uti plan wbc trending down will deescalte abx soon
--- NOTE | 2018-05-09 14:53 | PN ---
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, Physician - Current Medication List Current Medications: Active Medications Acetaminophen (Tylenol Oral Solution -) 650 mg NGT Q6H PRN PRN Reason: FEVER Last Admin: 05/03/18 06:05 Dose: 650 mg Bacitracin (Bacitracin -) 1 applic TP BID [facility] Stop: 05/15/18 09:59 Calcium Carbonate/Cholecalciferol (Os-Carmelo 500+D -) 1 tab NGT DAILY [facility] Last Admin: 05/09/18 09:35 Dose: 1 tab Carbidopa/Levodopa (Sinemet 25/100 -) 2 each NGT DAILY@0700,1200,1700 [facility] Last Admin: 05/09/18 12:55 Dose: 2 each Dextrose/Sodium Chloride (D5-1/2ns -) 1,000 mls @ 50 mls/hr IV ASDIR [facility] Last Admin: 05/08/18 16:55 Dose: 50 mls/hr Ceftriaxone Sodium 1 gm/ (Dextrose) 50 mls @ 100 mls/hr IVPB DAILY [facility]; Protocol Last Admin: 05/09/18 09:35 Dose: 100 mls/hr Valsartan (Diovan -) 40 mg PO DAILY [facility] Last Admin: 05/09/18 09:35 Dose: 40 mg - Objective Vital Signs: Vital Signs Temperature 97.5 F L 05/09/18 13:41 Pulse Rate 72 05/09/18 13:41 Respiratory Rate 16 05/09/18 13:41 Blood Pressure 130/78 05/09/18 13:41 O2 Sat by Pulse Oximetry (%) 100 05/09/18 12:44 Constitutional: Yes: Calm HENT: Yes: Atraumatic Neck: Yes: Supple Cardiovascular: Yes: Regular Rate and Rhythm Respiratory: Yes: CTA Bilaterally Gastrointestinal: Yes: Other (peg in place) Extremities: Yes: WNL Edema: No Neurological: Yes: Alert, Oriented Labs: CBC, BMP 05/09/18 06:58 05/09/18 06:58 INR, PTT INR 1.23 (0.83-1.09) H 05/09/18 06:58 Problem List - Problems (1) Parkinson disease Assessment/Plan: on meds ..as per RN taking meds with applesauce Code(s): G20 - PARKINSON'S DISEASE (2) Sepsis Assessment/Plan: ucx noted on abx Code(s): A41.9 - SEPSIS, UNSPECIFIED ORGANISM (3) Urinary tract infection Assessment/Plan: on abx Code(s): N39.0 - URINARY TRACT INFECTION, SITE NOT SPECIFIED (4) Altered mental status Assessment/Plan: more alert today Code(s): R41.82 - ALTERED MENTAL STATUS, UNSPECIFIED Qualifiers: Altered mental status type: disorientation Qualified Code(s): R41.0 - Disorientation, unspecified (5) Hypothermia Assessment/Plan: resolved Code(s): T68.XXXA - HYPOTHERMIA, INITIAL ENCOUNTER Qualifiers: Encounter type: subsequent encounter Qualified Code(s): T68.XXXD - Hypothermia, subsequent encounter (6) Rectal bleeding Assessment/Plan: resolved Code(s): K62.5 - HEMORRHAGE OF ANUS AND RECTUM (7) On tube feeding diet Assessment/Plan: s/p peg Code(s): Z78.9 - OTHER SPECIFIED HEALTH STATUS
[2018-05-09] MEDS: DEXTROSE 5%-0.45% SALINE 1,000 ML IV SCH (16:51)
[2018-05-10] MEDS ORDERED: PT OWN MED DRAWER 7, Y5N ONE ×4 (06:20→20:47)
[2018-05-10] MEDS: CARBIDOPA/LEVODOPA 25/100 TABLET (FP) NGT SCH ×3 (06:22→17:11)
[2018-05-10 07:40] LABS: BASO % 0.7 % (0-2.0); EOS % 0.3 % (0-4.5); HEMATOCRIT 31.5 % (32.4-45.2); HEMOGLOBIN 10.4 GM/dL (10.7-15.3); LYMPH % 22.5 % (8-40); MCH 23.1 pg (25.7-33.7); MCHC 33.1 g/dl (32.0-36.0); MEAN CELL VOLUME 69.6 fl (80-96); MEAN PLT VOLUME 8.7 fl (7.5-11.1); MONO % 4.7 % (3.8-10.2); NEUT % 71.8 % (42.8-82.8); PLATELET COUNT 354 K/MM3 (134-434); RBC 4.52 M/mm3 (3.60-5.2); RDW 16.7 % (11.6-15.6)
[2018-05-10] MEDS ORDERED: DEXTROSE 5%-WATER - 50 ML IVPB ONE (09:05)
[2018-05-10] MEDS ORDERED: cefTRIAXone SODIUM 1 GM VIAL ONE (09:05)
[2018-05-10] MEDS: CEFTRIAXONE 1 GM in DEXTROSE 5%-WATER - 50 ML IVPB SCH (09:54)
[2018-05-10] MEDS: CALCIUM 500MG/VIT-D 200 UNITS COMBO TABLET (FP) NGT SCH (09:55)
[2018-05-10] MEDS: BACITRACIN 15 GM TUBE TOPICAL OINTMENT TP SCH ×2 (09:55→21:27)
[2018-05-10] MEDS: VALSARTAN 40 MG TABLET (FP) PO SCH (09:55)
--- NOTE | 2018-05-10 11:35 | PN ---
GI 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 Subjective: No acute events overnight - Objective Vital Signs: Vital Signs Temperature 98.2 F 05/10/18 10:00 Pulse Rate 69 05/10/18 10:00 Respiratory Rate 20 05/10/18 10:00 Blood Pressure 132/75 05/10/18 10:00 O2 Sat by Pulse Oximetry (%) 96 05/10/18 09:00 Constitutional: Calm Eyes: No: Sclera Icterus Cardiovascular: Yes: Regular Rate and Rhythm Respiratory: Yes: Diminished (at bases b/l with poor insp. effort) Gastrointestinal Inspection: Yes: Other (G Tube in place in upper abdomen. gauze under the G-Tube was removed. there was no blood under the bolster. there was mild TTP around the peristomacl site. There was no induration or fluctuance. G tube noted at the 3cm nithya.). No: Distention, Scars ...Auscultate: Yes: Normoactive Bowel Sounds ...Palpate: Yes: Soft, Tenderness (peristomal site.) ...Percussion: No: Tympanitic Edema: No (No LE edema) Neurological: Yes: Other (responding verbally to verbal and physical stimuli. Not opening eyes) Labs: CBC, BMP 05/10/18 05:50 05/09/18 06:58 INR, PTT INR 1.23 (0.83-1.09) H 05/09/18 06:58 Problem List - Problems (1) Failure to thrive in adult Assessment/Plan: S/P PEG 05/09. OK to use PEG for feeds. follow PEG care instructions as outlined in procedural report and in [employer] Code(s): R62.7 - ADULT FAILURE TO THRIVE
--- NOTE | 2018-05-10 14:47 | PN ---
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, Physician History of Present Illness: stable no events - Current Medication List Current Medications: Active Medications Acetaminophen (Tylenol Oral Solution -) 650 mg NGT Q6H PRN PRN Reason: FEVER Last Admin: 05/03/18 06:05 Dose: 650 mg Bacitracin (Bacitracin -) 1 applic TP BID [facility] Stop: 05/15/18 09:59 Last Admin: 05/10/18 09:55 Dose: 1 applic Calcium Carbonate/Cholecalciferol (Os-Carmelo 500+D -) 1 tab NGT DAILY [facility] Last Admin: 05/10/18 09:55 Dose: 1 tab Carbidopa/Levodopa (Sinemet 25/100 -) 2 each NGT DAILY@0700,1200,1700 [facility] Last Admin: 05/10/18 12:14 Dose: 2 each Dextrose/Sodium Chloride (D5-1/2ns -) 1,000 mls @ 50 mls/hr IV ASDIR [facility] Last Admin: 05/09/18 16:51 Dose: 50 mls/hr Valsartan (Diovan -) 40 mg PO DAILY [facility] Last Admin: 05/10/18 09:55 Dose: 40 mg - Objective Vital Signs: Vital Signs Temperature 98.2 F 05/10/18 13:50 Pulse Rate 63 05/10/18 13:50 Respiratory Rate 16 05/10/18 13:50 Blood Pressure 98/73 05/10/18 13:50 O2 Sat by Pulse Oximetry (%) 96 05/10/18 11:38 Constitutional: Yes: No Distress, Calm Cardiovascular: Yes: S1, S2 Respiratory: Yes: Regular, CTA Bilaterally Gastrointestinal: Yes: Normal Bowel Sounds, Soft, Other (peg in place) Musculoskeletal: Yes: WNL Extremities: Yes: WNL Neurological: Yes: Alert Psychiatric: Yes: Alert Labs: CBC, BMP 05/10/18 05:50 05/09/18 06:58 INR, PTT INR 1.23 (0.83-1.09) H 05/09/18 06:58 Assessment/Plan Sepsis due to UTI / PNA / Colitis Metabolic Encephalopathy Bradycardia Diarrhea GI Bleed Anemia HTN Sacral decubitus ulcer Parkinson's sepsis lethargy weakness hypothermia uti plan continue current abx nutrition nutrition rest as per the team
[2018-05-10] MEDS ORDERED: ERTAPENEM SODIUM 1 GM/50 ML PRE-DOCKED IVPB SCH (15:00)
[2018-05-10] MEDS: DEXTROSE 5%-0.45% SALINE 1,000 ML IV SCH (15:45)
[2018-05-10] MEDS: ERTAPENEM SODIUM 1 GM in SODIUM CHLORIDE 50 ML IVPB SCH (17:31)
--- NOTE | 2018-05-10 18:27 | PN ---
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, Physician History of Present Illness: very alert talking - Current Medication List Current Medications: Active Medications Acetaminophen (Tylenol Oral Solution -) 650 mg NGT Q6H PRN PRN Reason: FEVER Last Admin: 05/03/18 06:05 Dose: 650 mg Bacitracin (Bacitracin -) 1 applic TP BID [facility] Stop: 05/15/18 09:59 Last Admin: 05/10/18 09:55 Dose: 1 applic Calcium Carbonate/Cholecalciferol (Os-Carmelo 500+D -) 1 tab NGT DAILY [facility] Last Admin: 05/10/18 09:55 Dose: 1 tab Carbidopa/Levodopa (Sinemet 25/100 -) 2 each NGT DAILY@0700,1200,1700 [facility] Last Admin: 05/10/18 17:11 Dose: 2 each Dextrose/Sodium Chloride (D5-1/2ns -) 1,000 mls @ 50 mls/hr IV ASDIR [facility] Last Admin: 05/10/18 15:45 Dose: 50 mls/hr Ertapenem 1 gm/ Sodium (Chloride) 50 mls @ 100 mls/hr IVPB DAILY [facility] Last Admin: 05/10/18 17:31 Dose: 100 mls/hr Valsartan (Diovan -) 40 mg PO DAILY [facility] Last Admin: 05/10/18 09:55 Dose: 40 mg - Objective Vital Signs: Vital Signs Temperature 98.2 F 05/10/18 13:50 Pulse Rate 63 05/10/18 13:50 Respiratory Rate 16 05/10/18 13:50 Blood Pressure 98/73 05/10/18 13:50 O2 Sat by Pulse Oximetry (%) 96 05/10/18 11:38 HENT: Yes: Atraumatic Neck: Yes: Supple Cardiovascular: Yes: Regular Rate and Rhythm Respiratory: Yes: CTA Bilaterally Gastrointestinal: Yes: Normal Bowel Sounds Extremities: Yes: WNL Peripheral Pulses WNL: Yes Neurological: Yes: Alert, Oriented Labs: CBC, BMP 05/10/18 05:50 05/09/18 06:58 INR, PTT INR 1.23 (0.83-1.09) H 05/09/18 06:58 Problem List - Problems (1) Parkinson disease Assessment/Plan: on meds .. Code(s): G20 - PARKINSON'S DISEASE (2) Sepsis Assessment/Plan: ucx noted on abx Code(s): A41.9 - SEPSIS, UNSPECIFIED ORGANISM (3) Urinary tract infection Assessment/Plan: on abx..cxs noted Code(s): N39.0 - URINARY TRACT INFECTION, SITE NOT SPECIFIED (4) Altered mental status Assessment/Plan: very alert Code(s): R41.82 - ALTERED MENTAL STATUS, UNSPECIFIED Qualifiers: Altered mental status type: disorientation Qualified Code(s): R41.0 - Disorientation, unspecified (5) Hypothermia Assessment/Plan: resolved Code(s): T68.XXXA - HYPOTHERMIA, INITIAL ENCOUNTER Qualifiers: Encounter type: subsequent encounter Qualified Code(s): T68.XXXD - Hypothermia, subsequent encounter (6) Rectal bleeding Code(s): K62.5 - HEMORRHAGE OF ANUS AND RECTUM (7) On tube feeding diet Assessment/Plan: s/p peg...feeds started by gi Code(s): Z78.9 - OTHER SPECIFIED HEALTH STATUS
[2018-05-10] MEDS: NYSTATIN 500,000 UNITS/5 ML SUSPENSION PO SCH (23:36)
[2018-05-11] MEDS: NYSTATIN 500,000 UNITS/5 ML SUSPENSION PO SCH ×4 (06:10→23:53)
[2018-05-11] MEDS: CARBIDOPA/LEVODOPA 25/100 TABLET (FP) NGT SCH ×3 (06:10→16:34)
[2018-05-11] MEDS ORDERED: PT OWN MED DRAWER 7, Y5N ONE (08:31)
[2018-05-11] MEDS: CALCIUM 500MG/VIT-D 200 UNITS COMBO TABLET (FP) NGT SCH (09:22)
[2018-05-11] MEDS: VALSARTAN 40 MG TABLET (FP) PO SCH (09:22)
[2018-05-11] MEDS: BACITRACIN 15 GM TUBE TOPICAL OINTMENT TP SCH ×2 (09:23→21:51)
[2018-05-11] MEDS: ERTAPENEM SODIUM 1 GM in SODIUM CHLORIDE 50 ML IVPB SCH (09:39)
--- NOTE | 2018-05-11 12:04 | PN ---
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, Physician History of Present Illness: Arousable. PEG insertion 05/09/2018, eating 75% of meals now. - Current Medication List Current Medications: Active Medications Acetaminophen (Tylenol Oral Solution -) 650 mg NGT Q6H PRN PRN Reason: FEVER Last Admin: 05/03/18 06:05 Dose: 650 mg Bacitracin (Bacitracin -) 1 applic TP BID [facility] Stop: 05/15/18 09:59 Last Admin: 05/11/18 09:23 Dose: 1 applic Calcium Carbonate/Cholecalciferol (Os-Carmelo 500+D -) 1 tab NGT DAILY [facility] Last Admin: 05/11/18 09:22 Dose: 1 tab Carbidopa/Levodopa (Sinemet 25/100 -) 2 each NGT DAILY@0700,1200,1700 [facility] Last Admin: 05/11/18 06:10 Dose: 2 each Dextrose/Sodium Chloride (D5-1/2ns -) 1,000 mls @ 50 mls/hr IV ASDIR [facility] Last Admin: 05/10/18 15:45 Dose: 50 mls/hr Ertapenem 1 gm/ Sodium (Chloride) 50 mls @ 100 mls/hr IVPB DAILY [facility] Last Admin: 05/11/18 09:39 Dose: 100 mls/hr Nystatin (Nystatin Oral Suspension -) 500,000 units PO Q6HPO [facility] Last Admin: 05/11/18 06:10 Dose: 500,000 units Valsartan (Diovan -) 40 mg PO DAILY [facility] Last Admin: 05/11/18 09:22 Dose: 40 mg - Objective Vital Signs: Vital Signs Temperature 97.8 F 05/11/18 08:09 Pulse Rate 65 05/11/18 08:09 Respiratory Rate 18 05/11/18 08:09 Blood Pressure 147/83 05/11/18 08:09 O2 Sat by Pulse Oximetry (%) 96 05/11/18 08:08 Constitutional: Yes: No Distress, Calm, Thin Neck: Yes: Supple Cardiovascular: Yes: Regular Rate and Rhythm Respiratory: Yes: Regular, Diminished, On Nasal O2 Gastrointestinal: Yes: Normal Bowel Sounds, Soft, Other (PEG in place) Edema: No Labs: CBC, BMP 05/10/18 05:50 05/09/18 06:58 INR, PTT INR 1.23 (0.83-1.09) H 12/14/18 06:58 Problem List - Problems (1) Parkinson disease Code(s): G20 - PARKINSON'S DISEASE (2) Acute hypoxemic respiratory failure Code(s): J96.01 - ACUTE RESPIRATORY FAILURE WITH HYPOXIA (3) Altered mental status Code(s): R41.82 - ALTERED MENTAL STATUS, UNSPECIFIED Qualifiers: Altered mental status type: disorientation Qualified Code(s): R41.0 - Disorientation, unspecified (4) Bradycardia Code(s): R00.1 - BRADYCARDIA, UNSPECIFIED (5) E. coli UTI Code(s): N39.0 - URINARY TRACT INFECTION, SITE NOT SPECIFIED; B96.20 - UNSP ESCHERICHIA COLI THE CAUSE OF DISEASES CLASSD ELSWHR (6) Hypothermia Code(s): T68.XXXA - HYPOTHERMIA, INITIAL ENCOUNTER Qualifiers: Encounter type: subsequent encounter Qualified Code(s): T68.XXXD - Hypothermia, subsequent encounter Assessment/Plan Echocardiography dated 07/02/2017 revealed normal LV size and function with diastolic LV dysfunction 1. Recent acute hypoxic respiratory failure/resolved, with underlying chronic lung disease, probable pneumonia with sepsis syndrome/resolved 2. CAD angina pectoris 3. Diastolic LV dysfunction with clinical class 0-I NYHA classification LV failure, compensated/euvolemic 4. Hypertension 5. Parkinson's disease/dementia, with altered mental status, failure to thrive s /p PEG 05/09/2018 6. Bradycardia (cannot exclude underlying sinus node dysfunction) and hypothermia since resolved, related to sepsis syndrome 7. CKD 8. UTI/sepsis syndrome, resolved 9. Sacral decubitus 10. Hypernatremia, resolved 11. Anemia PLAN: 1. Continue Diovan 40 qd as hemodynamics tolerate with close monitoring of renal function and electrolytes 2. As outlined in prior notes avoid B-Blockers related to the above noted bradycardia (cannot exclude underlying sinus node dysfunction) 3. Oral and enteral feeds 4. Complete abx course
--- NOTE | 2018-05-11 14:00 | PN ---
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, Physician History of Present Illness: patient doing well no new issues awake and alert peg tube feeding - Current Medication List Current Medications: Active Medications Acetaminophen (Tylenol Oral Solution -) 650 mg NGT Q6H PRN PRN Reason: FEVER Last Admin: 05/03/18 06:05 Dose: 650 mg Bacitracin (Bacitracin -) 1 applic TP BID [facility] Stop: 05/15/18 09:59 Last Admin: 05/11/18 09:23 Dose: 1 applic Calcium Carbonate/Cholecalciferol (Os-Carmelo 500+D -) 1 tab NGT DAILY [facility] Last Admin: 05/11/18 09:22 Dose: 1 tab Carbidopa/Levodopa (Sinemet 25/100 -) 2 each NGT DAILY@0700,1200,1700 [facility] Last Admin: 05/11/18 12:57 Dose: 2 each Dextrose/Sodium Chloride (D5-1/2ns -) 1,000 mls @ 50 mls/hr IV ASDIR [facility] Last Admin: 05/10/18 15:45 Dose: 50 mls/hr Ertapenem 1 gm/ Sodium (Chloride) 50 mls @ 100 mls/hr IVPB DAILY [facility] Last Admin: 05/11/18 09:39 Dose: 100 mls/hr Nystatin (Nystatin Oral Suspension -) 500,000 units PO Q6HPO [facility] Last Admin: 05/11/18 12:58 Dose: 500,000 units Valsartan (Diovan -) 40 mg PO DAILY [facility] Last Admin: 05/11/18 09:22 Dose: 40 mg - Objective Vital Signs: Vital Signs Temperature 97.8 F 05/11/18 08:09 Pulse Rate 65 05/11/18 08:09 Respiratory Rate 18 05/11/18 08:09 Blood Pressure 147/83 05/11/18 08:09 O2 Sat by Pulse Oximetry (%) 96 05/11/18 08:08 Constitutional: Yes: No Distress, Calm HENT: Yes: Atraumatic Neck: Yes: Supple Cardiovascular: Yes: S1, S2 Respiratory: Yes: Regular, CTA Bilaterally Gastrointestinal: Yes: Normal Bowel Sounds, Soft, Other (peg in place) Musculoskeletal: Yes: WNL Extremities: Yes: WNL Neurological: Yes: Alert Psychiatric: Yes: Alert Labs: CBC, BMP 05/10/18 05:50 05/09/18 06:58 INR, PTT INR 1.23 (0.83-1.09) H 05/09/18 06:58 Assessment/Plan Sepsis due to UTI / PNA / Colitis Metabolic Encephalopathy Bradycardia Diarrhea GI Bleed Anemia HTN Sacral decubitus ulcer Parkinson's sepsis lethargy weakness hypothermia uti plan continue current abx finish a course of 2 weeks nutrition rest as per the team
--- NOTE | 2018-05-11 18:40 | PN ---
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, Physician History of Present Illness: very alert talking - Current Medication List Current Medications: Active Medications Acetaminophen (Tylenol Oral Solution -) 650 mg NGT Q6H PRN PRN Reason: FEVER Last Admin: 05/03/18 06:05 Dose: 650 mg Bacitracin (Bacitracin -) 1 applic TP BID [facility] Stop: 05/15/18 09:59 Last Admin: 05/11/18 09:23 Dose: 1 applic Calcium Carbonate/Cholecalciferol (Os-Carmelo 500+D -) 1 tab NGT DAILY [facility] Last Admin: 05/11/18 09:22 Dose: 1 tab Carbidopa/Levodopa (Sinemet 25/100 -) 2 each NGT DAILY@0700,1200,1700 [facility] Last Admin: 05/11/18 16:34 Dose: 2 each Ertapenem 1 gm/ Sodium (Chloride) 50 mls @ 100 mls/hr IVPB DAILY [facility] Last Admin: 05/11/18 09:39 Dose: 100 mls/hr Nystatin (Nystatin Oral Suspension -) 500,000 units PO Q6HPO [facility] Last Admin: 05/11/18 17:07 Dose: 500,000 units Valsartan (Diovan -) 40 mg PO DAILY [facility] Last Admin: 05/11/18 09:22 Dose: 40 mg - Objective Vital Signs: Vital Signs Temperature 97.8 F 05/11/18 18:00 Pulse Rate 69 05/11/18 18:00 Respiratory Rate 18 05/11/18 18:00 Blood Pressure 143/58 L 05/11/18 18:00 O2 Sat by Pulse Oximetry (%) 96 05/11/18 08:08 Constitutional: Yes: No Distress HENT: Yes: Atraumatic Neck: Yes: Supple Cardiovascular: Yes: Regular Rate and Rhythm Respiratory: Yes: CTA Bilaterally Gastrointestinal: Yes: Normal Bowel Sounds, Other (s/p peg) Extremities: Yes: WNL Neurological: Yes: Alert, Oriented Labs: CBC, BMP 05/10/18 05:50 05/09/18 06:58 INR, PTT INR 1.23 (0.83-1.09) H 05/09/18 06:58 Problem List - Problems (1) Parkinson disease Assessment/Plan: on meds .. Code(s): G20 - PARKINSON'S DISEASE (2) Sepsis Assessment/Plan: ucx noted on abx Code(s): A41.9 - SEPSIS, UNSPECIFIED ORGANISM (3) Urinary tract infection Assessment/Plan: on abx..cxs noted d/w id need 2 weeks iv abx will put picc line and dc to snf Code(s): N39.0 - URINARY TRACT INFECTION, SITE NOT SPECIFIED (4) Altered mental status Assessment/Plan: very alert Code(s): R41.82 - ALTERED MENTAL STATUS, UNSPECIFIED Qualifiers: Altered mental status type: disorientation Qualified Code(s): R41.0 - Disorientation, unspecified (5) Hypothermia Code(s): T68.XXXA - HYPOTHERMIA, INITIAL ENCOUNTER Qualifiers: Encounter type: subsequent encounter Qualified Code(s): T68.XXXD - Hypothermia, subsequent encounter (6) Rectal bleeding Code(s): K62.5 - HEMORRHAGE OF ANUS AND RECTUM (7) On tube feeding diet Assessment/Plan: s/p peg...feeds started by gi Code(s): Z78.9 - OTHER SPECIFIED HEALTH STATUS
--- NOTE | 2018-05-11 18:43 | DS ---
Physical Examination Vital Signs: Vital Signs Temperature 97.8 F 05/11/18 18:00 Pulse Rate 69 05/11/18 18:00 Respiratory Rate 18 05/11/18 18:00 Blood Pressure 143/58 L 05/11/18 18:00 O2 Sat by Pulse Oximetry (%) 96 05/11/18 08:08 Labs: CBC, BMP 05/10/18 05:50 05/09/18 06:58 Discharge Summary Reason For Visit: URINARY TRACT INFECTION/SEPSIS Current Active Problems Failure to thrive in adult (Acute) On tube feeding diet (Acute) Parkinson disease (Acute) Rectal bleeding (Acute) Sepsis (Acute) Urinary tract infection (Acute) - Instructions Referrals: Emily Mckeon MD [Primary Care Provider] - - Home Medications Comprehensive Discharge Medication List: Ambulatory Orders Acetaminophen 500 mg PO DAILY 04/13/18 Aspirin 81 mg PO DAILY 04/13/18 Ca/D3/Mag Ox/Zinc/Cooker Sulfite/Ketan/Bor [Calcium 600-D3 Plus Caplet] 1 each PO DAILY Carbidopa/Levodopa [Carbidopa-Levo ER 50-200 Tab] 1 each PO TID 04/13/18 Rotigotine [Neupro] 2 mg TD DAILY 04/13/18 Valsartan [Diovan] 40 mg PO DAILY #30 tablet 05/06/18 Bacitracin - [Bacitracin Topical Ointment -] 1 applic TP BID tube 05/11/18 Ertapenem Sodium - 1 Gram [Invanz (Pre-Docked)] 1 gm IVPB DAILY #14 bag
[2018-05-12] MEDS ORDERED: PT OWN MED DRAWER 7, Y5N ONE ×2 (05:12→08:54)
[2018-05-12] MEDS: NYSTATIN 500,000 UNITS/5 ML SUSPENSION PO SCH ×3 (05:45→17:06)
[2018-05-12] MEDS: CARBIDOPA/LEVODOPA 25/100 TABLET (FP) NGT SCH ×3 (06:03→16:50)
[2018-05-12 06:42] LABS: EOS % 0.8 % (0-4.5); HEMATOCRIT 35.1 % (32.4-45.2); HEMOGLOBIN 10.8 GM/dL (10.7-15.3); LYMPH % 32.8 % (8-40); MCH 21.6 pg (25.7-33.7); MCHC 30.8 g/dl (32.0-36.0); MEAN CELL VOLUME 69.9 fl (80-96); MEAN PLT VOLUME 8.5 fl (7.5-11.1); MONO % 6.8 % (3.8-10.2); NEUT % 58.6 % (42.8-82.8); PLATELET COUNT 334 K/MM3 (134-434); RBC 5.02 M/mm3 (3.60-5.2); RDW 16.9 % (11.6-15.6); WHITE BLOOD COUNT 8.5 K/mm3 (4.0-10.0)
[2018-05-12 07:04] LABS: ALBUMIN 2.8 g/dl (3.4-5.0); ALK PHOS 78 U/L (45-117); ANION GAP 7 MMOL/L (8-16); BILIRUBIN,TOTAL 0.2 mg/dL (0.2-1); BLOOD UREA NITROGEN 10 mg/dL (7-18); CALCIUM 8.5 mg/dL (8.5-10.1); CHLORIDE 104 mmol/L (98-107); CO2 29 mmol/L (21-32); CREATININE 0.7 mg/dL (0.55-1.3); GLUCOSE,RANDOM 85 mg/dL (74-106); POTASSIUM 4.2 mmol/L (3.5-5.1); SGOT/AST 18 U/L (15-37); SGPT/ALT 15 U/L (13-61); SODIUM 139 mmol/L (136-145); TOT PROT 7.2 g/dl (6.4-8.2)
[2018-05-12] MEDS: VALSARTAN 40 MG TABLET (FP) PO SCH (10:17)
[2018-05-12] MEDS: CALCIUM 500MG/VIT-D 200 UNITS COMBO TABLET (FP) NGT SCH (10:18)
[2018-05-12] MEDS: BACITRACIN 15 GM TUBE TOPICAL OINTMENT TP SCH ×2 (10:18→22:13)
[2018-05-12] MEDS: ERTAPENEM SODIUM 1 GM in SODIUM CHLORIDE 50 ML IVPB SCH (10:34)
[2018-05-12 11:15] LABS: ACANTHOCYTES 1+; ANISOCYTOSIS 2+; MACROCYTOSIS 1+; OVALOCYTE 1+; PLATELET ESTIMATE NORMAL; TARGET CELLS 1+; TEAR DROP CELLS 1+
--- NOTE | 2018-05-12 11:58 | PN ---
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, Physician History of Present Illness: Arousable. PEG insertion 05/09/2018, eating meals after being fed and also receiving enteral feeds. - Current Medication List Current Medications: Active Medications Acetaminophen (Tylenol Oral Solution -) 650 mg NGT Q6H PRN PRN Reason: FEVER Last Admin: 05/03/18 06:05 Dose: 650 mg Bacitracin (Bacitracin -) 1 applic TP BID [facility] Stop: 05/15/18 09:59 Last Admin: 05/12/18 10:18 Dose: 1 applic Calcium Carbonate/Cholecalciferol (Os-Carmelo 500+D -) 1 tab NGT DAILY [facility] Last Admin: 05/12/18 10:18 Dose: 1 tab Carbidopa/Levodopa (Sinemet 25/100 -) 2 each NGT DAILY@0700,1200,1700 [facility] Last Admin: 05/12/18 06:03 Dose: 2 each Ertapenem 1 gm/ Sodium (Chloride) 50 mls @ 100 mls/hr IVPB DAILY [facility] Last Admin: 05/12/18 10:34 Dose: 100 mls/hr Nystatin (Nystatin Oral Suspension -) 500,000 units PO Q6HPO [facility] Last Admin: 05/12/18 05:45 Dose: 500,000 units Valsartan (Diovan -) 40 mg PO DAILY [facility] Last Admin: 05/12/18 10:17 Dose: 40 mg - Objective Vital Signs: Vital Signs Temperature 97.8 F 05/12/18 08:41 Pulse Rate 60 05/12/18 08:41 Respiratory Rate 18 05/12/18 08:41 Blood Pressure 116/68 05/12/18 08:41 O2 Sat by Pulse Oximetry (%) 100 05/12/18 08:41 Constitutional: Yes: No Distress, Calm, Thin Neck: Yes: Supple Cardiovascular: Yes: Regular Rate and Rhythm Respiratory: Yes: Regular, CTA Bilaterally Gastrointestinal: Yes: Normal Bowel Sounds, Soft, Other (PEG in place) Edema: No Labs: CBC, BMP 05/12/18 05:30 05/12/18 05:30 INR, PTT INR 1.23 (0.83-1.09) H 05/09/18 06:58 - ....Imaging EKG: Report Reviewed (Tele: NSR) Problem List - Problems (1) Parkinson disease Code(s): G20 - PARKINSON'S DISEASE (2) Acute hypoxemic respiratory failure Code(s): J96.01 - ACUTE RESPIRATORY FAILURE WITH HYPOXIA (3) Altered mental status Code(s): R41.82 - ALTERED MENTAL STATUS, UNSPECIFIED Qualifiers: Altered mental status type: disorientation Qualified Code(s): R41.0 - Disorientation, unspecified (4) Bradycardia Code(s): R00.1 - BRADYCARDIA, UNSPECIFIED (5) E. coli UTI Code(s): N39.0 - URINARY TRACT INFECTION, SITE NOT SPECIFIED; B96.20 - UNSP ESCHERICHIA COLI THE CAUSE OF DISEASES CLASSD ELSWHR (6) Hypothermia Code(s): T68.XXXA - HYPOTHERMIA, INITIAL ENCOUNTER Qualifiers: Encounter type: subsequent encounter Qualified Code(s): T68.XXXD - Hypothermia, subsequent encounter Assessment/Plan Echocardiography dated 07/02/2017 revealed normal LV size and function with diastolic LV dysfunction 1. Recent acute hypoxic respiratory failure/resolved, with underlying chronic lung disease, probable pneumonia with sepsis syndrome/resolved 2. CAD angina pectoris 3. Diastolic LV dysfunction with clinical class 0-I NYHA classification LV failure, compensated/euvolemic 4. Hypertension 5. Parkinson's disease/dementia, with altered mental status, failure to thrive s /p PEG 05/09/2018 6. Bradycardia (cannot exclude underlying sinus node dysfunction) and hypothermia since resolved, related to sepsis syndrome 7. CKD 8. UTI/sepsis syndrome, resolved 9. Sacral decubitus 10. Hypernatremia, resolved 11. Anemia PLAN: 1. Continue Diovan 40 qd as hemodynamics tolerate with close monitoring of renal function and electrolytes 2. As outlined in prior notes avoid B-Blockers related to the above noted bradycardia (cannot exclude underlying sinus node dysfunction) 3. Oral and enteral feeds 4. Complete abx course
--- NOTE | 2018-05-12 12:29 | PN ---
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, [employer] - Note 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: Selected Entries 05/10/18 05/10/18 05/11/18 13:50 22:00 02:00 Breakfast Lunch NPO NPO Temperature 98.0 F 05/11/18 05/11/18 05/11/18 06:00 08:09 09:25 Breakfast 75% Lunch NPO Temperature 98.1 F 97.8 F 05/11/18 05/11/18 05/11/18 12:20 14:00 18:00 Breakfast Lunch 75% Temperature 97.8 F 97.8 F 05/11/18 05/12/18 05/12/18 21:00 02:02 05:20 Breakfast Lunch Temperature 98.0 F 98.2 F 97.9 F 05/12/18 05/12/18 08:41 10:00 Breakfast 50% Lunch Temperature 97.8 F Laboratory Tests 05/09/18 05/10/18 05/12/18 06:58 05:50 05:30 WBC 8.9 12.0 H 8.5 Pt now with PEG feedings. More alert and interactive, not always intelligible. Plan is for d/c to [facility]. Consider f/u by Speech Pathology at [place] for swallowing re-evaluation.
--- NOTE | 2018-05-12 13:38 | PN ---
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, Physician History of Present Illness: patient doing well no new issues awake and alert - Current Medication List Current Medications: Active Medications Acetaminophen (Tylenol Oral Solution -) 650 mg NGT Q6H PRN PRN Reason: FEVER Last Admin: 05/03/18 06:05 Dose: 650 mg Bacitracin (Bacitracin -) 1 applic TP BID [facility] Stop: 05/15/18 09:59 Last Admin: 05/12/18 10:18 Dose: 1 applic Calcium Carbonate/Cholecalciferol (Os-Carmelo 500+D -) 1 tab NGT DAILY [facility] Last Admin: 05/12/18 10:18 Dose: 1 tab Carbidopa/Levodopa (Sinemet 25/100 -) 2 each NGT DAILY@0700,1200,1700 [facility] Last Admin: 05/12/18 12:16 Dose: 2 each Ertapenem 1 gm/ Sodium (Chloride) 50 mls @ 100 mls/hr IVPB DAILY [facility] Last Admin: 05/12/18 10:34 Dose: 100 mls/hr Nystatin (Nystatin Oral Suspension -) 500,000 units PO Q6HPO [facility] Last Admin: 05/12/18 12:16 Dose: 500,000 units Valsartan (Diovan -) 40 mg PO DAILY [facility] Last Admin: 05/12/18 10:17 Dose: 40 mg - Objective Vital Signs: Vital Signs Temperature 97.8 F 05/12/18 08:41 Pulse Rate 60 05/12/18 08:41 Respiratory Rate 18 05/12/18 08:41 Blood Pressure 116/68 05/12/18 08:41 O2 Sat by Pulse Oximetry (%) 100 05/12/18 08:41 Constitutional: Yes: No Distress, Calm Neck: Yes: Supple, Trachea Midline Cardiovascular: Yes: Regular Rate and Rhythm Respiratory: Yes: Regular, CTA Bilaterally Gastrointestinal: Yes: Other (peg in place) Musculoskeletal: Yes: WNL Extremities: Yes: WNL Labs: CBC, BMP 05/12/18 05:30 05/12/18 05:30 INR, PTT INR 1.23 (0.83-1.09) H 05/09/18 06:58 Assessment/Plan Sepsis due to UTI / PNA / Colitis Metabolic Encephalopathy Bradycardia Diarrhea GI Bleed Anemia HTN Sacral decubitus ulcer Parkinson's sepsis lethargy weakness hypothermia uti plan continue current abx finish a course of 2 weeks nutrition rest as per the team
--- NOTE | 2018-05-12 16:51 | PN ---
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, Physician History of Present Illness: alert - Current Medication List Current Medications: Active Medications Acetaminophen (Tylenol Oral Solution -) 650 mg NGT Q6H PRN PRN Reason: FEVER Last Admin: 05/03/18 06:05 Dose: 650 mg Bacitracin (Bacitracin -) 1 applic TP BID [facility] Stop: 05/15/18 09:59 Last Admin: 05/12/18 10:18 Dose: 1 applic Calcium Carbonate/Cholecalciferol (Os-Carmelo 500+D -) 1 tab NGT DAILY [facility] Last Admin: 05/12/18 10:18 Dose: 1 tab Carbidopa/Levodopa (Sinemet 25/100 -) 2 each NGT DAILY@0700,1200,1700 [facility] Last Admin: 05/12/18 12:16 Dose: 2 each Ertapenem 1 gm/ Sodium (Chloride) 50 mls @ 100 mls/hr IVPB DAILY [facility] Last Admin: 05/12/18 10:34 Dose: 100 mls/hr Nystatin (Nystatin Oral Suspension -) 500,000 units PO Q6HPO [facility] Last Admin: 05/12/18 12:16 Dose: 500,000 units Valsartan (Diovan -) 40 mg PO DAILY [facility] Last Admin: 05/12/18 10:17 Dose: 40 mg - Objective Vital Signs: Vital Signs Temperature 97.9 F 05/12/18 13:29 Pulse Rate 80 05/12/18 13:29 Respiratory Rate 18 05/12/18 13:29 Blood Pressure 90/57 L 05/12/18 13:29 O2 Sat by Pulse Oximetry (%) 100 05/12/18 08:41 Constitutional: Yes: No Distress HENT: Yes: Atraumatic Neck: Yes: Supple Cardiovascular: Yes: Regular Rate and Rhythm Respiratory: Yes: CTA Bilaterally Gastrointestinal: Yes: Other (peg in place) Extremities: Yes: WNL Edema: No Peripheral Pulses WNL: Yes Labs: CBC, BMP 05/12/18 05:30 05/12/18 05:30 INR, PTT INR 1.23 (0.83-1.09) H 05/09/18 06:58 Problem List - Problems (1) Parkinson disease Assessment/Plan: on meds .. Code(s): G20 - PARKINSON'S DISEASE (2) Sepsis Assessment/Plan: ucx noted on abx Code(s): A41.9 - SEPSIS, UNSPECIFIED ORGANISM (3) Urinary tract infection Assessment/Plan: on abx..cxs noted d/w id need 2 weeks iv abx will put picc line and dc to snf Code(s): N39.0 - URINARY TRACT INFECTION, SITE NOT SPECIFIED (4) Altered mental status Code(s): R41.82 - ALTERED MENTAL STATUS, UNSPECIFIED Qualifiers: Altered mental status type: disorientation Qualified Code(s): R41.0 - Disorientation, unspecified (5) Hypothermia Code(s): T68.XXXA - HYPOTHERMIA, INITIAL ENCOUNTER Qualifiers: Encounter type: subsequent encounter Qualified Code(s): T68.XXXD - Hypothermia, subsequent encounter (6) Rectal bleeding Code(s): K62.5 - HEMORRHAGE OF ANUS AND RECTUM (7) On tube feeding diet Code(s): Z78.9 - OTHER SPECIFIED HEALTH STATUS
[2018-05-13] MEDS: NYSTATIN 500,000 UNITS/5 ML SUSPENSION PO SCH ×5 (00:31→23:17)
[2018-05-13] MEDS ORDERED: PT OWN MED DRAWER 7, Y5N ONE ×4 (05:17→17:44)
[2018-05-13] MEDS: CARBIDOPA/LEVODOPA 25/100 TABLET (FP) NGT SCH ×3 (06:06→17:13)
--- NOTE | 2018-05-13 08:40 | PN ---
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 (short form) - Note 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: Chief Complaint: Events noted, notes reviewed, awake and alert responds to verbal commands, no acute distress, post PEG insertion History of Present Illness: Seen and examined on telemetry. Events noted, notes reviewed, awake and alert responds to verbal commands, no acute distress, post PEG insertion Echocardiography dated 07/02/2017 revealed normal LV size and function with diastolic LV dysfunction - Current Medication List Current Medications Acetaminophen (Tylenol Oral Solution -) 650 mg NGT Q6H PRN PRN Reason: FEVER Last Admin: 05/03/18 06:05 Dose: 650 mg Bacitracin (Bacitracin -) 1 applic TP BID [facility] Stop: 05/15/18 09:59 Last Admin: 05/12/18 22:13 Dose: 1 applic Calcium Carbonate/Cholecalciferol (Os-Carmelo 500+D -) 1 tab NGT DAILY [facility] Last Admin: 05/12/18 10:18 Dose: 1 tab Carbidopa/Levodopa (Sinemet 25/100 -) 2 each NGT DAILY@0700,1200,1700 [facility] Last Admin: 05/13/18 06:06 Dose: 2 each Ertapenem 1 gm/ Sodium (Chloride) 50 mls @ 100 mls/hr IVPB DAILY [facility] Last Admin: 05/12/18 10:34 Dose: 100 mls/hr Nystatin (Nystatin Oral Suspension -) 500,000 units PO Q6HPO [facility] Last Admin: 05/13/18 06:06 Dose: 500,000 units Valsartan (Diovan -) 40 mg PO DAILY [facility] Last Admin: 05/12/18 10:17 Dose: 40 mg Review of Systems Unable to obtain - Objective Vital Signs: Last Vital Signs Temp Pulse Resp BP Pulse Ox 97.0 F L 75 20 145/100 93 L 05/13/18 06:16 05/13/18 06:16 05/13/18 06:16 05/13/18 06:16 05/12/18 20:37 Intake & Output 05/10/18 05/11/18 05/12/18 05/13/18 23:59 23:59 23:59 23:59 Intake Total 2285 1700 1300 Output Total 100 Balance 2185 1700 1300 Neck: Supple Negative JVD No Bruit Cardiovascular: S1 S2 Regular Rate and Rhythm Chest: Scattered Rhonchi Bilaterally Gastrointestinal: Soft Benign Normal Bowel Sounds Ext: Trace Edema Labs: ABG Results ABG pH 7.33 (7.35-7.45) L 04/13/18 17:31 ABG pCO2 at Pt Temp 41.9 mmHg (35-45) 04/13/18 17:31 ABG pO2 at Pt Temp 178.0 mmHg (68-100) H* D 04/13/18 17:31 ABG HCO3 21.3 meq/L (22-26) L 04/13/18 17:31 ABG O2 Sat (Measured) 99.0 % (90-98.9) H 04/13/18 17:31 ABG O2 Content 13.6 % vol (15-22) L 04/13/18 17:31 ABG Base Excess -3.8 meq/l (-2-2) L 04/13/18 17:31 CBC, BMP 05/12/18 05:30 05/12/18 05:30 Hepatic Panel Total Bilirubin 0.2 mg/dL (0.2-1) 05/12/18 05:30 AST 18 U/L (15-37) 05/12/18 05:30 ALT 15 U/L (13-61) 05/12/18 05:30 Alkaline Phosphatase 78 U/L (45-117) 05/12/18 05:30 Albumin 2.8 g/dl (3.4-5.0) L 05/12/18 05:30 INR, PTT INR 1.23 (0.83-1.09) H 05/09/18 06:58 Assessment/Plan ASSESSMENT: 1. Recent acute hypoxic respiratory failure/resolved, with underlying chronic lung disease, probable pneumonia with sepsis syndrome/resolved 2. CAD angina pectoris 3. Diastolic LV dysfunction with clinical class 0-I NYHA classification LV failure, compensated/euvolemic 4. Hypertension 5. Parkinson's disease/dementia, with altered mental status, failure to thrive 6. Bradycardia (cannot exclude underlying sinus node dysfunction) and hypothermia since resolved, related to sepsis syndrome 7. CKD 8. UTI/sepsis syndrome, resolved 9. Sacral decubitus 10. Hypernatremia, resolved 11. Anemia, persistent PLAN: 1. Continue Diovan with caution and titrate dosage as needed with close monitoring of renal function 2. As outlined in prior notes avoid B-Blockers related to the above noted bradycardia (cannot exclude underlying sinus node dysfunction) 3. Antibiotics as per the primary team 4. As outlined in prior notes may be transferred to floor care from the cardiovascular point of view Palmiar Pratt MD
[2018-05-13] MEDS: CALCIUM 500MG/VIT-D 200 UNITS COMBO TABLET (FP) NGT SCH (09:29)
[2018-05-13] MEDS: ERTAPENEM SODIUM 1 GM in SODIUM CHLORIDE 50 ML IVPB SCH (09:29)
[2018-05-13] MEDS: VALSARTAN 40 MG TABLET (FP) PO SCH (09:29)
[2018-05-13] MEDS: BACITRACIN 15 GM TUBE TOPICAL OINTMENT TP SCH ×2 (12:40→22:10)
--- NOTE | 2018-05-13 17:05 | PN ---
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, Physician History of Present Illness: alert - Current Medication List Current Medications: Active Medications Acetaminophen (Tylenol Oral Solution -) 650 mg NGT Q6H PRN PRN Reason: FEVER Last Admin: 05/03/18 06:05 Dose: 650 mg Bacitracin (Bacitracin -) 1 applic TP BID [facility] Stop: 05/15/18 09:59 Last Admin: 05/13/18 12:40 Dose: 1 applic Calcium Carbonate/Cholecalciferol (Os-Carmelo 500+D -) 1 tab NGT DAILY [facility] Last Admin: 05/13/18 09:29 Dose: 1 tab Carbidopa/Levodopa (Sinemet 25/100 -) 2 each NGT DAILY@0700,1200,1700 [facility] Last Admin: 05/13/18 12:40 Dose: 2 each Ertapenem 1 gm/ Sodium (Chloride) 50 mls @ 100 mls/hr IVPB DAILY [facility] Last Admin: 05/13/18 09:29 Dose: 100 mls/hr Nystatin (Nystatin Oral Suspension -) 500,000 units PO Q6HPO [facility] Last Admin: 05/13/18 12:40 Dose: 500,000 units Valsartan (Diovan -) 40 mg PO DAILY [facility] Last Admin: 05/13/18 09:29 Dose: 40 mg - Objective Vital Signs: Vital Signs Temperature 97.9 F 05/13/18 13:44 Pulse Rate 80 05/13/18 13:44 Respiratory Rate 18 05/13/18 13:44 Blood Pressure 123/67 05/13/18 13:44 O2 Sat by Pulse Oximetry (%) 96 05/13/18 09:00 Constitutional: Yes: No Distress HENT: Yes: Atraumatic Neck: Yes: Supple Cardiovascular: Yes: Regular Rate and Rhythm Respiratory: Yes: CTA Bilaterally Gastrointestinal: Yes: Normal Bowel Sounds, Other (peg in place) Extremities: Yes: WNL Edema: No Peripheral Pulses WNL: Yes Neurological: Yes: Alert Labs: CBC, BMP 05/12/18 05:30 05/12/18 05:30 INR, PTT INR 1.23 (0.83-1.09) H 05/09/18 06:58 Problem List - Problems (1) Parkinson disease Assessment/Plan: on meds .. Code(s): G20 - PARKINSON'S DISEASE (2) Sepsis Assessment/Plan: ucx noted on abx Code(s): A41.9 - SEPSIS, UNSPECIFIED ORGANISM (3) Urinary tract infection Assessment/Plan: on abx..cxs noted d/w id need 2 weeks iv abx will put picc line and dc to snf Code(s): N39.0 - URINARY TRACT INFECTION, SITE NOT SPECIFIED (4) Altered mental status Assessment/Plan: very alert Code(s): R41.82 - ALTERED MENTAL STATUS, UNSPECIFIED Qualifiers: Altered mental status type: disorientation Qualified Code(s): R41.0 - Disorientation, unspecified (5) Hypothermia Assessment/Plan: resolved Code(s): T68.XXXA - HYPOTHERMIA, INITIAL ENCOUNTER Qualifiers: Encounter type: subsequent encounter Qualified Code(s): T68.XXXD - Hypothermia, subsequent encounter (6) Rectal bleeding Code(s): K62.5 - HEMORRHAGE OF ANUS AND RECTUM (7) On tube feeding diet Assessment/Plan: s/p peg...feeds started by gi Code(s): Z78.9 - OTHER SPECIFIED HEALTH STATUS
--- NOTE | 2018-05-13 18:36 | PN ---
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, Physician - Current Medication List Current Medications: Active Medications Acetaminophen (Tylenol Oral Solution -) 650 mg NGT Q6H PRN PRN Reason: FEVER Last Admin: 05/03/18 06:05 Dose: 650 mg Bacitracin (Bacitracin -) 1 applic TP BID [facility] Stop: 05/15/18 09:59 Last Admin: 05/13/18 12:40 Dose: 1 applic Calcium Carbonate/Cholecalciferol (Os-Carmelo 500+D -) 1 tab NGT DAILY [facility] Last Admin: 05/13/18 09:29 Dose: 1 tab Carbidopa/Levodopa (Sinemet 25/100 -) 2 each NGT DAILY@0700,1200,1700 [facility] Last Admin: 05/13/18 17:13 Dose: 2 each Ertapenem 1 gm/ Sodium (Chloride) 50 mls @ 100 mls/hr IVPB DAILY [facility] Last Admin: 05/13/18 09:29 Dose: 100 mls/hr Nystatin (Nystatin Oral Suspension -) 500,000 units PO Q6HPO [facility] Last Admin: 05/13/18 17:15 Dose: 500,000 units Valsartan (Diovan -) 40 mg PO DAILY [facility] Last Admin: 05/13/18 09:29 Dose: 40 mg - Objective Vital Signs: Vital Signs Temperature 97.5 F L 05/13/18 18:08 Pulse Rate 75 05/13/18 18:08 Respiratory Rate 20 05/13/18 18:08 Blood Pressure 98/67 05/13/18 18:08 O2 Sat by Pulse Oximetry (%) 96 05/13/18 09:00 Labs: CBC, BMP 05/12/18 05:30 05/12/18 05:30 INR, PTT INR 1.23 (0.83-1.09) H 05/09/18 06:58
[2018-05-14] MEDS ORDERED: PT OWN MED DRAWER 7, Y5N ONE ×3 (05:24→16:25)
[2018-05-14] MEDS: NYSTATIN 500,000 UNITS/5 ML SUSPENSION PO SCH ×4 (06:08→18:00)
[2018-05-14] MEDS: CARBIDOPA/LEVODOPA 25/100 TABLET (FP) NGT SCH ×3 (06:08→16:39)
[2018-05-14] MEDS: VALSARTAN 40 MG TABLET (FP) PO SCH (09:12)
[2018-05-14] MEDS: CALCIUM 500MG/VIT-D 200 UNITS COMBO TABLET (FP) NGT SCH (09:12)
[2018-05-14] MEDS: ERTAPENEM SODIUM 1 GM in SODIUM CHLORIDE 50 ML IVPB SCH (09:13)
[2018-05-14] MEDS: BACITRACIN 15 GM TUBE TOPICAL OINTMENT TP SCH (12:17)
[2018-05-14 14:34] VITALS: TEMP 97.7
--- NOTE | 2018-05-14 15:00 | PN ---
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, Physician History of Present Illness: patient stable no issues - Current Medication List Current Medications: Active Medications Acetaminophen (Tylenol Oral Solution -) 650 mg NGT Q6H PRN PRN Reason: FEVER Last Admin: 05/03/18 06:05 Dose: 650 mg Bacitracin (Bacitracin -) 1 applic TP BID [facility] Stop: 05/15/18 09:59 Last Admin: 05/14/18 12:17 Dose: 1 applic Calcium Carbonate/Cholecalciferol (Os-Carmelo 500+D -) 1 tab NGT DAILY [facility] Last Admin: 05/14/18 09:12 Dose: 1 tab Carbidopa/Levodopa (Sinemet 25/100 -) 2 each NGT DAILY@0700,1200,1700 [facility] Last Admin: 05/14/18 12:17 Dose: 2 each Ertapenem 1 gm/ Sodium (Chloride) 50 mls @ 100 mls/hr IVPB DAILY [facility] Last Admin: 05/14/18 09:13 Dose: 100 mls/hr Nystatin (Nystatin Oral Suspension -) 500,000 units PO Q6HPO [facility] Last Admin: 05/14/18 12:17 Dose: 500,000 units Valsartan (Diovan -) 40 mg PO DAILY [facility] Last Admin: 05/14/18 09:12 Dose: 40 mg - Objective Vital Signs: Vital Signs Temperature 97.7 F 05/14/18 14:00 Pulse Rate 60 05/14/18 14:00 Respiratory Rate 18 05/14/18 14:00 Blood Pressure 108/64 05/14/18 14:00 O2 Sat by Pulse Oximetry (%) 94 L 05/14/18 10:00 Constitutional: Yes: No Distress, Calm Cardiovascular: Yes: S1, S2 Respiratory: Yes: CTA Bilaterally Gastrointestinal: Yes: Normal Bowel Sounds, Soft, Other (peg in place) Musculoskeletal: Yes: WNL Extremities: Yes: WNL Neurological: Yes: Alert Psychiatric: Yes: Alert Labs: CBC, BMP 05/12/18 05:30 05/12/18 05:30 INR, PTT INR 1.23 (0.83-1.09) H 05/09/18 06:58 Assessment/Plan Sepsis due to UTI / PNA / Colitis Metabolic Encephalopathy Bradycardia Diarrhea GI Bleed Anemia HTN Sacral decubitus ulcer Parkinson's sepsis lethargy weakness hypothermia uti plan will change abx to meropenam meropenam 1 gm every 8 hourly for 9 more days rest as per the team stable
--- NOTE | 2018-05-14 15:23 | PN ---
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, Physician History of Present Illness: Arousable. PEG insertion 05/09/2018, eating meals after being fed and also receiving enteral feeds. - Current Medication List Current Medications: Active Medications Acetaminophen (Tylenol Oral Solution -) 650 mg NGT Q6H PRN PRN Reason: FEVER Last Admin: 05/03/18 06:05 Dose: 650 mg Bacitracin (Bacitracin -) 1 applic TP BID [facility] Stop: 05/15/18 09:59 Last Admin: 05/14/18 12:17 Dose: 1 applic Calcium Carbonate/Cholecalciferol (Os-Carmelo 500+D -) 1 tab NGT DAILY [facility] Last Admin: 05/14/18 09:12 Dose: 1 tab Carbidopa/Levodopa (Sinemet 25/100 -) 2 each NGT DAILY@0700,1200,1700 [facility] Last Admin: 05/14/18 12:17 Dose: 2 each Ertapenem 1 gm/ Sodium (Chloride) 50 mls @ 100 mls/hr IVPB DAILY [facility] Last Admin: 05/14/18 09:13 Dose: 100 mls/hr Nystatin (Nystatin Oral Suspension -) 500,000 units PO Q6HPO [facility] Last Admin: 05/14/18 12:17 Dose: 500,000 units Valsartan (Diovan -) 40 mg PO DAILY [facility] Last Admin: 05/14/18 09:12 Dose: 40 mg - Objective Vital Signs: Vital Signs Temperature 97.7 F 05/14/18 14:00 Pulse Rate 60 05/14/18 14:00 Respiratory Rate 18 05/14/18 14:00 Blood Pressure 108/64 05/14/18 14:00 O2 Sat by Pulse Oximetry (%) 94 L 05/14/18 10:00 Constitutional: Yes: No Distress, Calm, Thin Neck: Yes: Supple Cardiovascular: Yes: Regular Rate and Rhythm Respiratory: Yes: Regular, Diminished, On Nasal O2 Gastrointestinal: Yes: Normal Bowel Sounds, Soft, Other (PEG tube in place) Edema: No Labs: CBC, BMP 05/12/18 05:30 05/12/18 05:30 INR, PTT INR 1.23 (0.83-1.09) H 05/09/18 06:58 Problem List - Problems (1) Parkinson disease Code(s): G20 - PARKINSON'S DISEASE (2) Acute hypoxemic respiratory failure Code(s): J96.01 - ACUTE RESPIRATORY FAILURE WITH HYPOXIA (3) Altered mental status Code(s): R41.82 - ALTERED MENTAL STATUS, UNSPECIFIED Qualifiers: Altered mental status type: disorientation Qualified Code(s): R41.0 - Disorientation, unspecified (4) Bradycardia Code(s): R00.1 - BRADYCARDIA, UNSPECIFIED (5) E. coli UTI Code(s): N39.0 - URINARY TRACT INFECTION, SITE NOT SPECIFIED; B96.20 - UNSP ESCHERICHIA COLI THE CAUSE OF DISEASES CLASSD ELSWHR (6) Hypothermia Code(s): T68.XXXA - HYPOTHERMIA, INITIAL ENCOUNTER Qualifiers: Encounter type: subsequent encounter Qualified Code(s): T68.XXXD - Hypothermia, subsequent encounter Assessment/Plan Echocardiography dated 07/02/2017 revealed normal LV size and function with diastolic LV dysfunction 1. Recent acute hypoxic respiratory failure/resolved, with underlying chronic lung disease, probable pneumonia with sepsis syndrome/resolved 2. CAD angina pectoris 3. Diastolic LV dysfunction with clinical class 0-I NYHA classification LV failure, compensated/euvolemic 4. Hypertension 5. Parkinson's disease/dementia, with altered mental status, failure to thrive s /p PEG 05/09/2018 6. Bradycardia (cannot exclude underlying sinus node dysfunction) and hypothermia since resolved, related to sepsis syndrome 7. CKD 8. UTI/sepsis syndrome, resolved 9. Sacral decubitus 10. Hypernatremia, resolved 11. Anemia PLAN: 1. Continue Diovan 40 qd as hemodynamics tolerate with close monitoring of renal function and electrolytes 2. As outlined in prior notes avoid B-Blockers related to the above noted bradycardia (cannot exclude underlying sinus node dysfunction) 3. Oral and enteral feeds 4. Complete abx course
--- NOTE | 2018-05-14 16:28 | DS ---
Physical Examination Vital Signs: Vital Signs Temperature 97.7 F 05/14/18 14:00 Pulse Rate 60 05/14/18 14:00 Respiratory Rate 18 05/14/18 14:00 Blood Pressure 108/64 05/14/18 14:00 O2 Sat by Pulse Oximetry (%) 94 L 05/14/18 10:00 Constitutional: Yes: No Distress HENT: Yes: Atraumatic Neck: Yes: Supple Cardiovascular: Yes: Regular Rate and Rhythm Respiratory: Yes: CTA Bilaterally Gastrointestinal: Yes: Normal Bowel Sounds Extremities: Yes: WNL Edema: No Peripheral Pulses WNL: Yes Neurological: Yes: Alert, Oriented Labs: CBC, BMP 05/12/18 05:30 05/12/18 05:30 Discharge Summary Reason For Visit: URINARY TRACT INFECTION/SEPSIS Current Active Problems Failure to thrive in adult (Acute) On tube feeding diet (Acute) Parkinson disease (Acute) Rectal bleeding (Acute) Sepsis (Acute) Urinary tract infection (Acute) - Instructions Diet, Activity, Other Instructions: 1.puree diet, patient need help in feeding, patient also on feeds via peg 2.need PT/OT...speech therapy 3.call dr peñaloza regarding zyprexa 4.peg tube feeding start at 8am...stop at 10 pm see attached jeremias=rt for details plan will change abx to meropenam meropenam 1 gm every 8 hourly for 8 more days starting 05/15/18 dr travis had spoken to [facility] about it Referrals: Rodrigo Travis MD [Staff Physician] - Emily Mckeon MD [Primary Care Provider] - Mariana Peñaloza MD [Staff Physician] - Sid Augustin MD [Staff Physician] - - Home Medications Comprehensive Discharge Medication List: Ambulatory Orders Acetaminophen 500 mg PO DAILY 04/13/18 Aspirin 81 mg PO DAILY 04/13/18 Ca/D3/Mag Ox/Zinc/Slotter Operator/Ketan/Bor [Calcium 600-D3 Plus Caplet] 1 each PO DAILY Carbidopa/Levodopa [Carbidopa-Levo ER 50-200 Tab] 1 each PO TID 04/13/18 Rotigotine [Neupro] 2 mg TD DAILY 04/13/18 Valsartan [Diovan] 40 mg PO DAILY #30 tablet 05/06/18 Bacitracin - [Bacitracin Topical Ointment -] 1 applic TP BID tube 05/11/18 plan per id will change abx to meropenam meropenam 1 gm every 8 hourly for 8 more days starting tomorrow d/w daughter dileep who called me about discharge and put down instructions as she requested
[2018-05-14 19:01] VITALS: BP 97/66; PULSE 68
== END 2018-05-14 20:24 | DRG 871 ==
LOC: JER 15:38 → JERBED 20:37 → J8W 23:41 → JICU 04-14 13:24 → J7W 04-24 12:47 → J4S 04-25 00:13
PROVIDERS: ADMIT Internal Medicine; ATTEND Internal Medicine
PROC: 05HM33Z Insertion of Infusion Device into Right Internal Jugular Vein, Percutaneous Approach (ICD-10-PCS; 2018-04-14)
PROC: B543ZZA Ultrasonography of Right Jugular Veins, Guidance (ICD-10-PCS; 2018-04-14)
PROC: 0DH63UZ Insertion of Feeding Device into Stomach, Percutaneous Approach (ICD-10-PCS; principal; 2018-05-09 11:30)
DX: A41.1 Sepsis due to other specified staphylococcus (principal); G93.41 Metabolic encephalopathy; J18.9 Pneumonia, unspecified organism; J96.01 Acute respiratory failure with hypoxia; R65.21 Severe sepsis with septic shock; N30.01 Acute cystitis with hematuria; I50.30 Unspecified diastolic (congestive) heart failure; E87.0 Hyperosmolality and hypernatremia; I13.0 Hypertensive heart and chronic kidney disease with heart failure and stage 1 through stage 4 chronic kidney disease, or unspecified chronic kidney disease; N39.0 Urinary tract infection, site not specified; K92.2 Gastrointestinal hemorrhage, unspecified; L89.152 Pressure ulcer of sacral region, stage 2; G20 Parkinson's disease; N18.9 Chronic kidney disease, unspecified; E11.22 Type 2 diabetes mellitus with diabetic chronic kidney disease; K52.9 Noninfective gastroenteritis and colitis, unspecified; R00.1 Bradycardia, unspecified; I25.119 Atherosclerotic heart disease of native coronary artery with unspecified angina pectoris; D64.9 Anemia, unspecified; R62.7 Adult failure to thrive; R41.82 Altered mental status, unspecified; B96.20 Unspecified Escherichia coli [E. coli] as the cause of diseases classified elsewhere; F03.90 Unspecified dementia, unspecified severity, without behavioral disturbance, psychotic disturbance, mood disturbance, and anxiety; I95.9 Hypotension, unspecified; D69.6 Thrombocytopenia, unspecified; E88.09 Other disorders of plasma-protein metabolism, not elsewhere classified; K29.70 Gastritis, unspecified, without bleeding
CPT/HCPCS: 36415; 36569; 36600; 70450-TC; 70544-TC; 70551-TC; 71045-TC-FY; 71275-TC; 74177-TC; 76705-TC; 77001-TC-FY; 80048; 80053; 81003; 81015; 82272; 82375; 82607; 82803; 82962; 83036; 83050; 83605; 83735; 83880; 84100; 84207; 84443; 84484; 85025; 85027; 85610; 85651; 85730; 86140; 86850; 86900; 86901; 87040; 87045; 87046; 87086; 87186; 87324; 87449; 93005; 93010; 93306-TC; 94640; 97161-GP; 99285-25; C1751; J0131; J1644; J7030

== ENCOUNTER 2019-05-31 23:10 | Inpatient (IN) | payer MEDICARE, OTHER ==
--- NOTE | 2019-05-31 23:18 | PDOC ---
History of Present Illness - General Stated Complaint: AMS AND SHORTNESS OF BREATH Time Seen by Provider: 05/31/19 23:17 - History of Present Illness Initial Comments: 06/01/19 01:01 79 yo F PMH Parkinson's disease, dementia, chronic sacral decubitus ulcer, BIBEMS from home due to AMS. Daughter at bedside, all history per her. States that the patient developed a cough 3 days ago, productive of yellow sputum. However, starting last night patient became increasingly altered and less interactive, also having increased trouble breathing. At her baseline, patient has good days and bad, but on good days she speaks, albeit with some confusion. Patient reportedly non-ambulatory. Per daughter, all grandchildren are currently sick. Unable to get ROS due to patient condition. Past History - Past Medical History Allergies/Adverse Reactions: Allergies Allergy/AdvReac Type Severity Reaction Status Date / Time No Known Allergies Allergy Verified 05/31/19 23:41 Home Medications: Ambulatory Orders Ca/D3/Mag Ox/Zinc/Ornamenter Hand/Ketan/Bor [Calcium 600-D3 Plus Caplet] 1 each PO HS Carbidopa/Levodopa [Carbidopa-Levo ER 50-200 Tab] 1 each PO TID 04/13/18 Aspirin 81 mg PO DAILY 06/01/19 Melatonin 5 mg PO HS 06/01/19 Olanzapine [Zyprexa -] 7.5 mg PO DAILY 06/01/19 Omeprazole 20 mg PO DAILY 06/01/19 Rivastigmine [Exelon Patch 4.6MG/24 Hours] 1 each TD DAILY 06/01/19 Rotigotine [Neupro] 1 each TD DAILY 06/01/19 COPD: No Dementia: Yes HTN: Yes - Surgical History Orthopedic Surgery: Yes (bilateral knees) - Immunization History Immunization Up to Date: Yes - Psycho Social/Smoking Cessation Hx Smoking History: Never smoked Have you smoked in the past 12 months: No Hx Alcohol Use: No Drug/Substance Use Hx: No Substance Use Type: None Review of Systems - Review of Systems Able to Perform ROS?: No (AMS) *Physical Exam - Physical Exam 06/01/19 01:06 Gen: in respiratory distress Neuro: Retracts to pain, unable to assess cranial nerves, EOMI, PERRLA HEENT: atraumatic, normocephalic, dry mucous membranes Neck: trachea midline, supple CV: regular rate, regular rhythm, no murmurs, rubs, or gallops Pulm: diffuse inspiratory and expiratory rhonchi Abd: soft, non-distended, non-tender MSK: full ROM, intact pulses Extr: no edema, no deformities Skin: warm, dry ED Treatment Course - LABORATORY CBC & Chemistry Diagram: 06/01/19 00:18 06/01/19 02:15 Medical Decision Making - Medical Decision Making 06/01/19 01:09 Concern for sepsis, UTI v PNA. Patient satting - sepsis order set - EKG, CXR - UA/UC - Vanc/Zosyn - admit 06/01/19 01:16 WBC 17.9. CXR with bilateral infiltrates. Will give vanc/Zosyn. 06/01/19 01:51 Cr 2.6, CK >3000. 06/01/19 02:14 Sinus tachycardia at 101 bpm, LAFB, RBBB, appears unchanged from her prior except for increased rate 06/01/19 04:[address]: no acute pathology. Discharge - Discharge Information Problems reviewed: Yes Clinical Impression/Diagnosis: Respiratory failure with hypoxia, Sepsis, JOS (acute kidney injury), Pneumonia - Follow up/Referral - Patient Discharge Instructions - Post Discharge Activity
[2019-05-31] MEDS ORDERED: ALBUTEROL SO4 2.5/IPRATROPIUM 0.5 INH SOL 3 ML VIAL.NEB. NEB ONE ×2 (23:33→23:41)
--- NOTE | 2019-06-01 00:02 | PDOC ---
Documentation entered by Teddy Lara SCRIBE, acting as scribe for Jackelyn Moreira MD. Jackelyn Moreira MD: This documentation has been prepared by the Marco miller Daniel, SCRIBE, under my direction and personally reviewed by me in its entirety. I confirm that the documentation accurately reflects all work, treatment, procedures, and medical decision making performed by me. Attending Attestation - Resident Resident Name: Sailaja Briggs - ED Attending Attestation I have performed the following: I have examined & evaluated the patient, The case was reviewed & discussed with the resident, I agree w/resident's findings & plan, Exceptions are as noted - HPI HPI: 06/01/19 00:01 79-year-old female brought in by ambulance from home for increased confusion and weakness Patient reportedly was febrile and the daughter states she has had urinary tract infections in the past 06/01/19 00:16 - Physicial Exam PE: 06/01/19 00:16 Ill-appearing wnwd 79-year-old female brought in for increasing somnolence and fever Head normocephalic atraumatic Neck supple Lungs crackles,rhonchi,wheezing expiratory CVS regular rate and rhythm S1-S2 Abdomen protuberant, nontender Skin sacral decubitus Neuro patient somnolent, responds to sternal rub,she is nonambulatory at baseline 06/01/19 00:19 06/01/19 00:38 - Medical Decision Making 06/01/19 00:39 cxr infiltrates antibiotics ordered 06/01/19 01:51 UA does not show infection The labs are hemolyzed so the potassium of 5.8 is erroneous Troponin is negative Will send a basic chemistry
[2019-06-01] MEDS ORDERED: VANCOMYCIN HCL 1,500 MG in DEXTROSE 5%-WATER - 500 ML IVPB ONE (00:38)
[2019-06-01] MEDS ORDERED: PIPERACILLIN/TAZOB 3.375 GM 3.375 GM in DEXTROSE 5%-WATER - 50 ML IVPB ONE (00:38)
[2019-06-01 00:44] LABS: VENOUS PH 7.28 (7.31-7.41)
[2019-06-01 00:45] LABS: BASO % 0.2 % (0-2.0); EOS % 0.1 % (0-4.5); HEMATOCRIT 37.7 % (32.4-45.2); HEMOGLOBIN 11.9 GM/dL (10.7-15.3); LYMPH % 27.9 % (8-40); MCH 22.8 pg (25.7-33.7); MCHC 31.5 g/dl (32.0-36.0); MEAN CELL VOLUME 72.3 fl (80-96); MEAN PLT VOLUME 10.5 fl (7.5-11.1); NEUT % 66.8 % (42.8-82.8); RBC 5.22 M/mm3 (3.60-5.2); WHITE BLOOD COUNT 17.9 K/mm3 (4.0-10.0)
[2019-06-01 00:47] LABS: VENOUS PO2 < 49 mmHg (28-48)
[2019-06-01] MEDS ORDERED: SODIUM CHLORIDE 0.9% 1000 ML INFUS.BAG IV ONE (00:50)
[2019-06-01 01:04] LABS: INR 1.13 (0.83-1.09); PROTHROMBIN TIME (PATIENT) 13.3 SEC (9.7-13.0)
[2019-06-01 01:34] LABS: ALK PHOS 120 U/L (45-117); ANION GAP 10 MMOL/L (8-16); BILIRUBIN,TOTAL 1.3 mg/dL (0.2-1); BLOOD UREA NITROGEN 62.8 mg/dL (7-18); CALCIUM 8.4 mg/dL (8.5-10.1); CHLORIDE 109 mmol/L (98-107); CO2 24 mmol/L (21-32); CREATININE 2.6 mg/dL (0.55-1.3); GLUCOSE,RANDOM 129 mg/dL (74-106); MAGNESIUM 2.4 mg/dL (1.8-2.4); N-TERMINAL BNP 406.5 pg/ml (5-450); PLATELET COUNT 165 K/MM3 (134-434); PLATELET ESTIMATE ADEQUATE; POTASSIUM 5.8 mmol/L (3.5-5.1); SGOT/AST 115 U/L (15-37); SGPT/ALT 18 U/L (13-61); SODIUM 142 mmol/L (136-145); TOT PROT 8.4 g/dl (6.4-8.2)
[2019-06-01 01:37] LABS: EPI CELLS 10.1 /HPF (0-5/HPF); HYALINE CASTS 6 /lpf (0-8); URINE APPEARANCE CLEAR; URINE BACTERIA 95.8 /hpf (NEGATIVE); URINE BILIRUBIN NEGATIVE (NEGATIVE); URINE COLOR YELLOW; URINE GLUCOSE (UA) NEGATIVE (NEGATIVE); URINE KETONE NEGATIVE (NEGATIVE); URINE LEUK ESTERASE TRACE (NEGATIVE); URINE NITRITE NEGATIVE (NEGATIVE); URINE PROTEIN 2+ (NEGATIVE); URINE RBC 6 /hpf (0-4); URINE WBC 7 /hpf (0-5)
[2019-06-01] MEDS ORDERED: PIPERACILLIN/TAZOB 3.375 GM 3.375 GM/50 ML BAG IVPB ONE (01:41)
[2019-06-01 02:14] LABS: ARTERIAL BLD GAS O2 SATURATION 95.2 % (95-98); ARTERIAL BLOOD GAS BASE EXCESS -3.7 meq/l (-2-2); ARTERIAL BLOOD GAS PCO2 44.5 mmHg (35-45); ARTERIAL BLOOD GAS PO2 88.2 mmHg (80-100); ARTERIAL BLOOD GAS pH 7.31 (7.35-7.45)
[2019-06-01 02:15] LABS: ALLENS TEST POSITIVE
--- NOTE | 2019-06-01 02:33 | PN ---
Teaching Attending Note Name of Resident: Mari Oconnor ATTENDING PHYSICIAN STATEMENT I saw and evaluated the patient. I reviewed the resident's note and discussed the case with the resident. I agree with the resident's findings and plan as documented. SUBJECTIVE: Patient is an 79 year old woman with a PMH of HTN, Parkinson's disease, Right eye blindness, Dementia and Chronic sacral decubitus ulcer, presenting from home due to AMS. Daughter at bedside, all history per her. States that the patient developed a cough 3 days ago, productive of yellow sputum. However, starting last night patient became increasingly altered and less interactive, also having increased trouble breathing. As per family, at her baseline, patient has good days and bad, but on good days she speaks, albeit with some confusion. Patient is reportedly non-ambulatory. Per daughter, all grandchildren are currently sick. No reported tobacco, alcohol or illicit drug use. OBJECTIVE: Somnolent and poorly resposive Vital Signs Period Temp Pulse Resp BP Sys/Campbell Pulse Ox Last 24 Hr 99.7 F 86-100 20-24 109-126/68-79 86-99 HEENT: No Jaundice, eye redness or discharge, Dy mucous membranes, Normocephalic , atraumatic. External ears are normal. No nasal discharge. Neck: Supple, nontender. No palpable adenopathy or thyromegaly. No JVD Chest: Good effort. Intermittent wheezing and rhonchi. Clear to percussion. Heart: Regular. No S3, rub or murmur Abdomen: Not distended, soft, nontender and no HSM. No rebound or guarding. Normal bowel sounds. Ext: Peripheral pulses intact. No leg edema. Skin: Warm and dry. No petechiae, rash or ecchymosis. Sacral decubitus ulcer. Neuro: Somnolent. Poorly responsive to sternal rub. Psych: Unable to assess Current Medications Generic Name Dose Route Start Last Admin Trade Name Freq PRN Reason Stop Dose Admin Albuterol/Ipratropium 1 amp 06/01/19 02:43 06/01/19 03:57 Duoneb - NEB 1 amp RTID [facility] Administration Chlorhexidine Gluconate 1 applic 06/01/19 22:00 Hibiclens For Decolonization - TP HS [facility] Heparin Sodium (Porcine) 5,000 unit 06/01/19 06:00 Heparin - SQ TID [facility] Sodium Chloride 1,000 mls @ 100 mls/hr 06/01/19 03:18 06/01/19 03:39 Normal Saline - IV 100 mls/hr ASDIR [facility] Administration Piperacillin Sod/Tazobactam 50 mls @ 100 mls/hr 06/01/19 09:00 Sod 2.25 gm/ Dextrose IVPB Q8H-IV [facility] Protocol Vancomycin HCl 750 mg/ 250 mls @ 166.667 mls/hr 06/01/19 04:00 06/01/19 04:01 Dextrose IVPB 06/01/19 05:29 166.667 mls/hr ONCE ONE Administration Piperacillin Sod/Tazobactam 50 mls @ 100 mls/hr 06/01/19 10:00 Sod 2.25 gm/ Dextrose IVPB 06/02/19 02:29 Q8H-IV [facility] Methylprednisolone Sodium Succinate 60 mg 06/01/19 03:36 06/01/19 03:54 Solu-Medrol - IVPUSH 60 mg Q6H-IV [facility] Administration Mupirocin 1 applic 06/01/19 10:00 Bactroban Ointment (For Decolonization) - NS 06/06/19 09:59 BID [facility] Non-Formulary Medication 1 each 06/01/19 10:00 Rivastigmine TD DAILY [facility] Non-Formulary Medication 1 each 06/01/19 10:00 Rotigotine [Neupro] TD DAILY [facility] Pantoprazole Sodium 40 mg 06/01/19 10:00 Protonix Iv IVPUSH DAILY [facility] Home Medications Medication Instructions Recorded Ca/D3/Mag Ox/Zinc/Media Senior [employer]iter/Ketan/Bor 1 each PO HS 04/13/18 [Calcium 600-D3 Plus Caplet] Carbidopa/Levodopa [Carbidopa-Levo 1 each PO TID 04/13/18 ER 50-200 Tab] Aspirin 81 mg PO DAILY 06/01/19 Melatonin 5 mg PO HS 06/01/19 Olanzapine [Zyprexa -] 7.5 mg PO DAILY 06/01/19 Omeprazole 20 mg PO DAILY 06/01/19 Rivastigmine [Exelon Patch 1 each TD DAILY 06/01/19 4.6MG/24 Hours] Rotigotine [Neupro] 1 each TD DAILY 06/01/19 Abnormal Lab Results 06/01/19 06/01/19 06/01/19 00:18 00:18 00:18 WBC 17.9 H RBC 5.22 H MCV 72.3 L MCH 22.8 L MCHC 31.5 L RDW 18.0 H Absolute Neuts (auto) 12.0 H PT with INR 13.30 H INR 1.13 H ABG pH ABG HCO3 ABG Base Excess VBG pH POC VBG pCO2 POC VBG pO2 VBG O2 Sat (Makenna) VBG Base Excess Sodium Potassium Chloride BUN Creatinine Random Glucose Lactic Acid 2.3 H* Calcium Total Bilirubin AST Alkaline Phosphatase Creatine Kinase CK-MB (CK-2) Total Protein Albumin Urine Protein Urine Blood Urine Urobilinogen 06/01/19 06/01/19 06/01/19 00:18 00:18 01:20 WBC RBC MCV MCH MCHC RDW Absolute Neuts (auto) PT with INR INR ABG pH ABG HCO3 ABG Base Excess VBG pH 7.28 L POC VBG pCO2 53.0 H POC VBG pO2 < 49 H VBG O2 Sat (Makenna) 49.2 L VBG Base Excess -2.6 L Sodium Potassium 5.8 H Chloride 109 H BUN 62.8 H Creatinine 2.6 H Random Glucose 129 H Lactic Acid Calcium 8.4 L Total Bilirubin 1.3 H AST 115 H Alkaline Phosphatase 120 H Creatine Kinase 3050 H CK-MB (CK-2) 4.6 H Total Protein 8.4 H Albumin 3.0 L Urine Protein 2+ H Urine Blood 2+ H Urine Urobilinogen 2.0 H 06/01/19 06/01/19 02:05 02:15 WBC RBC MCV MCH MCHC RDW Absolute Neuts (auto) PT with INR INR ABG pH 7.31 L ABG HCO3 21.9 L ABG Base Excess -3.7 L VBG pH POC VBG pCO2 POC VBG pO2 VBG O2 Sat (Makenna) VBG Base Excess Sodium 146 H Potassium Chloride 112 H BUN 58.9 H Creatinine 2.5 H Random Glucose 151 H Lactic Acid Calcium 7.8 L Total Bilirubin AST Alkaline Phosphatase Creatine Kinase CK-MB (CK-2) Total Protein Albumin Urine Protein Urine Blood Urine Urobilinogen ASSESSMENT AND PLAN: 1. Sepsis due to bilateral pneumonia/Acute hypoxic respiratory failure - CXR shows cardiomegly, unfolded aorta and bilateral nodular and fluffy infiltrates. Being admitted to the ICU. Will treat with IV zosyn, vancomycin, solumedrol, duoneb, protonix and IV NS according to sepsis protocol and O2 support. Get urine legionella antigen. AMS may be due to toxic metabolic encephalopathy, but will get a head CT scan. Will keep her NPO and do speech and swallow evaluation and trend lactic acid. Continue daily care for sacral decubitus ulcer and frequent repositioning. Initial hyperkalemia was due to a hemolysed sample. EKG shows sinus tachycardia, LVH, RBBB, LAFB and prolonged QTc (510) - will avoid any drugs that may prolong QTc. Will continue comprehensive care for all of patients comorbid conditions. 2. Hypoalbuminemia - Possibly due to combined effects of proteinuria, malnutrition and inflammation associated with comorbid chronic conditions. Will ensure adequate dietary protein intake and also consult planer hand. 3. JOS - Likely due to rhabdomyolysis. Get kidney sonogram, hydrate with IV NS and monitor urine output, calcium and phosphate. Will consult nephrology and avoid nephrotoxic agents such as NSAIDS, aminoglycosides, contrast dyes and certain Alternative medicine products. 4. DVT prophylaxis - Heparin 5000u sq tid. 5. Advance directives - Full code
[2019-06-01] MEDS ORDERED: SODIUM CHLORIDE 1,000 ML IV SCH ×2 (02:45→03:18)
--- NOTE | 2019-06-01 02:49 | CONSULT ---
Consultation: REQUESTING PROVIDER: Dr. Moreira CONSULT REQUEST: ICU management HISTORY OF PRESENT ILLNESS: 79 y/o female with PMH of HTN, NIDDM, Parkinsons dementia who presents to the ED with AMS and fevers- as per patients daughter; her symptoms started around 4- 5 days ago with a productive cough with increasing sputum, she then went on to develop low grade fevers and her mental status was not at her baseline- she has been a lot more lethargic and somnolent and has had decreased PO intake over the past few days. there have been sick contacts at home (grandchildren have been since with cold/cough) , she did not take any medication for the cough. her baseline mental status: patient is not always verbal but there are days where she does communicate wit few words, she has been completely bed bound over the past year . daughter is not aware of any urinary complaints though patient has had a history of urinary tract infections in the past. upon arrival to the ED- patient was tachypneic with RR 22; saturating 94% on 4L NC, ABG: PH 7.31, Co2 44.8 P02 88- CXR notable for infiltrates; WBC 17.9 Na 146 patient was given vanc/zosyn duonebs REVIEW OF SYSTEMS: UNABLE TO ASSESS PATIENT IS SOMNOLENT CONSTITUTIONAL: Absent: fever, chills, diaphoresis, generalized weakness, malaise, loss of appetite, weight change HEENT: Absent: rhinorrhea, nasal congestion, throat pain, throat swelling, difficulty swallowing, mouth swelling, ear pain, eye pain, visual changes CARDIOVASCULAR: Absent: chest pain, syncope, palpitations, irregular heart rate, lightheadedness , peripheral edema RESPIRATORY: Absent: cough, shortness of breath, dyspnea with exertion, orthopnea, wheezing, stridor, hemoptysis GASTROINTESTINAL: Absent: abdominal pain, abdominal distension, nausea, vomiting, diarrhea, constipation, melena, hematochezia GENITOURINARY: Absent: dysuria, frequency, urgency, hesitancy, hematuria, flank pain, genital pain MUSCULOSKELETAL: Absent: myalgia, arthralgia, joint swelling, back pain, neck pain SKIN: Absent: rash, itching, pallor HEMATOLOGIC/IMMUNOLOGIC: Absent: easy bleeding, easy bruising, lymphadenopathy, frequent infections ENDOCRINE: Absent: unexplained weight gain, unexplained weight loss, heat intolerance, cold intolerance NEUROLOGIC: Absent: headache, focal weakness or paresthesias, dizziness, unsteady gait, seizure, mental status changes, bladder or bowel incontinence PSYCHIATRIC: Absent: anxiety, depression, suicidal or homicidal ideation, hallucinations. PHYSICAL EXAMINATION Vital Signs - 24 hr 05/31/19 06/01/19 06/01/19 23:38 00:37 00:44 Temperature 99.7 F H Pulse Rate 86 Pulse Rate [ 100 H Right Radial] Respiratory 24 H 22 H Rate Blood Pressure 126/79 Blood Pressure 109/72 [Right Arm] O2 Sat by Pulse 86 L 90 L 94 L Oximetry (%) GENERAL: somnolent; slightly responsive to sternal rub EYES:PEERLA: EOMI; no scleral icterus . NECK: no JVD; no lymphadenopathy LUNGS: B/L expiratory wheezes and rhonchi HEART: Regular rate and rhythm, normal S1 and S2 without murmur, rub or gallop. ABDOMEN: protuberent; soft; NT/ND +BS in all4 quadrants MUSCULOSKELETAL: Normal range of motion at all joints. No bony deformities or tenderness. No CVA tenderness. EXTREMITIES: warm; well-perfused no clubbing/cyanosis or edema; patient has stage 3 sacral decubitus ulcer NEUROLOGICAL: unable to assess as patient is minimally responsive PSYCHIATRIC: Cooperative. Good eye contact. Appropriate mood and affect. SKIN: Warm, dry, normal turgor, no rashes or lesions noted. Laboratory Results - last 24 hr 06/01/19 06/01/19 06/01/19 00:18 00:18 00:18 WBC 17.9 H RBC 5.22 H Hgb 11.9 Hct 37.7 MCV 72.3 L MCH 22.8 L MCHC 31.5 L RDW 18.0 H Plt Count 165 D MPV 10.5 D Absolute Neuts (auto) 12.0 H Neutrophils % 66.8 Lymphocytes % 27.9 Monocytes % 5.0 Eosinophils % 0.1 D Basophils % 0.2 Nucleated RBC % 0 Platelet Estimate Adequate Platelet Comment No clumping noted PT with INR 13.30 H INR 1.13 H PTT (Actin FS) 30.0 Anticoagulation Therapy Puncture Site ABG pH ABG pCO2 at Pt Temp ABG pO2 at Pt Temp ABG HCO3 ABG O2 Sat (Measured) ABG O2 Content ABG Base Excess Gaetano Test VBG pH POC VBG pCO2 POC VBG pO2 VBG HCO3 VBG O2 Sat (Makenna) VBG Base Excess Carboxyhemoglobin Methemoglobin O2 Delivery Device Oxygen Flow Rate Vent Mode Vent Rate Mechanical Rate Pressure Support Vent Sodium Cancelled Potassium Cancelled Chloride Cancelled Carbon Dioxide Cancelled Anion Gap Cancelled BUN Cancelled Creatinine Cancelled Est GFR (CKD-EPI)AfAm Cancelled Est GFR (CKD-EPI)NonAf Cancelled Random Glucose Cancelled Lactic Acid Calcium Cancelled Magnesium Total Bilirubin Cancelled AST Cancelled ALT Cancelled Alkaline Phosphatase Cancelled Creatine Kinase Creatine Kinase Index CK-MB (CK-2) Troponin I B-Natriuretic Peptide Total Protein Cancelled Albumin Cancelled Urine Color Urine Appearance Urine pH Ur Specific [place] Urine Protein Urine Glucose (UA) Urine Ketones Urine Blood Urine Nitrite Urine Bilirubin Urine Urobilinogen Ur Leukocyte Esterase Urine WBC (Auto) Urine RBC (Auto) Urine Casts (Auto) U Epithel Cells (Auto) Urine Bacteria (Auto) Influenza A (Rapid) Influenza B (Rapid) 06/01/19 06/01/19 06/01/19 00:18 00:18 00:18 WBC RBC Hgb Hct MCV MCH MCHC RDW Plt Count MPV Absolute Neuts (auto) Neutrophils % Lymphocytes % Monocytes % Eosinophils % Basophils % Nucleated RBC % Platelet Estimate Platelet Comment PT with INR INR PTT (Actin FS) Anticoagulation Therapy Puncture Site ABG pH ABG pCO2 at Pt Temp ABG pO2 at Pt Temp ABG HCO3 ABG O2 Sat (Measured) ABG O2 Content ABG Base Excess Gaetano Test VBG pH POC VBG pCO2 POC VBG pO2 VBG HCO3 VBG O2 Sat (Makenna) VBG Base Excess Carboxyhemoglobin Methemoglobin O2 Delivery Device Oxygen Flow Rate Vent Mode Vent Rate Mechanical Rate Pressure Support Vent Sodium 142 Potassium 5.8 H Chloride 109 H Carbon Dioxide 24 Anion Gap 10 BUN 62.8 H Creatinine 2.6 H Est GFR (CKD-EPI)AfAm 19.27 Est GFR (CKD-EPI)NonAf 16.63 Random Glucose 129 H Lactic Acid 2.3 H* Calcium 8.4 L Magnesium 2.4 Total Bilirubin 1.3 H AST 115 H ALT 18 Alkaline Phosphatase 120 H Creatine Kinase 3050 H Creatine Kinase Index 0.1 CK-MB (CK-2) 4.6 H Troponin I < 0.02 B-Natriuretic Peptide 406.5 Cancelled Total Protein 8.4 H Albumin 3.0 L Urine Color Urine Appearance Urine pH Ur Specific [place] Urine Protein Urine Glucose (UA) Urine Ketones Urine Blood Urine Nitrite Urine Bilirubin Urine Urobilinogen Ur Leukocyte Esterase Urine WBC (Auto) Urine RBC (Auto) Urine Casts (Auto) U Epithel Cells (Auto) Urine Bacteria (Auto) Influenza A (Rapid) Influenza B (Rapid) 06/01/19 06/01/19 06/01/19 00:18 00:20 01:20 WBC RBC Hgb Hct MCV MCH MCHC RDW Plt Count MPV Absolute Neuts (auto) Neutrophils % Lymphocytes % Monocytes % Eosinophils % Basophils % Nucleated RBC % Platelet Estimate Platelet Comment PT with INR INR PTT (Actin FS) Anticoagulation Therapy Puncture Site ABG pH ABG pCO2 at Pt Temp ABG pO2 at Pt Temp ABG HCO3 ABG O2 Sat (Measured) ABG O2 Content ABG Base Excess Gaetano Test VBG pH 7.28 L POC VBG pCO2 53.0 H POC VBG pO2 < 49 H VBG HCO3 24.1 VBG O2 Sat (Makenna) 49.2 L VBG Base Excess -2.6 L Carboxyhemoglobin Methemoglobin O2 Delivery Device Oxygen Flow Rate Vent Mode Vent Rate Mechanical Rate Pressure Support Vent Sodium Potassium Chloride Carbon Dioxide Anion Gap BUN Creatinine Est GFR (CKD-EPI)AfAm Est GFR (CKD-EPI)NonAf Random Glucose Lactic Acid Calcium Magnesium Total Bilirubin AST ALT Alkaline Phosphatase Creatine Kinase Creatine Kinase Index CK-MB (CK-2) Troponin I B-Natriuretic Peptide Total Protein Albumin Urine Color Yellow Urine Appearance Clear Urine pH 6.0 Ur Specific [place] 1.020 Urine Protein 2+ H Urine Glucose (UA) Negative Urine Ketones Negative Urine Blood 2+ H Urine Nitrite Negative Urine Bilirubin Negative Urine Urobilinogen 2.0 H Ur Leukocyte Esterase Trace Urine WBC (Auto) 7 Urine RBC (Auto) 6 Urine Casts (Auto) 6 U Epithel Cells (Auto) 10.1 Urine Bacteria (Auto) 95.8 Influenza A (Rapid) Negative Influenza B (Rapid) Negative 06/01/19 02:05 WBC RBC Hgb Hct MCV MCH MCHC RDW Plt Count MPV Absolute Neuts (auto) Neutrophils % Lymphocytes % Monocytes % Eosinophils % Basophils % Nucleated RBC % Platelet Estimate Platelet Comment PT with INR INR PTT (Actin FS) Anticoagulation Therapy No Result Required. Puncture Site Right radial ABG pH 7.31 L ABG pCO2 at Pt Temp 44.5 ABG pO2 at Pt Temp 88.2 ABG HCO3 21.9 L ABG O2 Sat (Measured) 95.2 ABG O2 Content 13.8 ABG Base Excess -3.7 L Gaetano Test Positive VBG pH POC VBG pCO2 POC VBG pO2 VBG HCO3 VBG O2 Sat (Makenna) VBG Base Excess Carboxyhemoglobin 1.0 Methemoglobin < 1.0 O2 Delivery Device N/c Oxygen Flow Rate 4.0 lpm Vent Mode No Result Required. Vent Rate No Result Required. Mechanical Rate No Result Required. Pressure Support Vent No Result Required. Sodium Potassium Chloride Carbon Dioxide Anion Gap BUN Creatinine Est GFR (CKD-EPI)AfAm Est GFR (CKD-EPI)NonAf Random Glucose Lactic Acid Calcium Magnesium Total Bilirubin AST ALT Alkaline Phosphatase Creatine Kinase Creatine Kinase Index CK-MB (CK-2) Troponin I B-Natriuretic Peptide Total Protein Albumin Urine Color Urine Appearance Urine pH Ur Specific [place] Urine Protein Urine Glucose (UA) Urine Ketones Urine Blood Urine Nitrite Urine Bilirubin Urine Urobilinogen Ur Leukocyte Esterase Urine WBC (Auto) Urine RBC (Auto) Urine Casts (Auto) U Epithel Cells (Auto) Urine Bacteria (Auto) Influenza A (Rapid) Influenza B (Rapid) Active Medications Generic Name Dose Route Start Last Admin Trade Name Freq PRN Reason Stop Dose Admin Albuterol/Ipratropium 1 amp 06/01/19 02:43 Duoneb - NEB RTID [facility] Chlorhexidine Gluconate 1 applic 06/01/19 22:00 Hibiclens For Decolonization - TP HS [facility] Heparin Sodium (Porcine) 5,000 unit 06/01/19 10:00 Heparin - SQ Q8H-IV [facility] Sodium Chloride 1,000 mls @ 75 mls/hr 06/01/19 02:45 Normal Saline - IV ASDIR [facility] Piperacillin Sod/Tazobactam 50 mls @ 100 mls/hr 06/01/19 09:00 Sod 3.375 gm/ Dextrose IVPB Q8H-IV [facility] Protocol Mupirocin 1 applic 06/01/19 10:00 Bactroban Ointment (For Decolonization) - NS 06/06/19 09:59 BID [facility] ASSESSMENT/PLAN: 79 y/o female with PMH of HTN, NIDDM, Parkinsons dementia who presents to the ED with AMS and fevers found to have B/L infiltrates #Neuro history of parkinsons dementia patient currently somnolent; not at her baseline mental status -likely 2/2 sepsis -head CT ordered to r/o stroke v. bleed -neuro checks -if patient cannot protect airway may have to intubate -c/w parkinson's meds -will check ammonia/RPR/B12 #Cardiovascular history of HTN; last echo 2017 normal EF; mild MR/TR -currently normotensive -will hold diovan in light of JOS -monitor hemodynamics #Endocrine history of NIDDM -stable; diet -controlled #GI stable; no issues -currently NPO in light of mental status and aspiration risk -elevated Tbilli and AST likely 2/2 sepsis; will order abdominal US #ID leukocytosis 17.9; with B/L infiltrates; initial lactic acid 2.3 -given vanc/zosyn x1 -c/w zosyn to cover for possible aspiration -repeat lactic acid -ID consult -f/u blood cx, sputum cx, urine for legionella -NS @100mls/hr #Pulm B/L infiltrates on CXR -c/w zosyn (renally dosed ) -repeat CXR in AM -repeat ABG in AM- monitor mental status for airway protection -f/u sputum cx and urine for legionella -monitor o2 saturations -duonebs PRN -solumedrol 60q6H #Renal patients Cr was 2.6 on arrival with CK >3000; baseline around 0.8-0.9 -[facility] [place] pre-renal; F/U urine NA, urien Cr and calculate FeNA -renal US ordered -NS @100 -nephro consult -avoid nephro toxic drugs -trend CK F/E/N NS @100 monitor electrolytes NPO until improvement in mental status dvt ppx: heparin sq GI ppx: PPI code status: FULL CODE Dispo: We will continue to follow the patient. Thank you for this consultative opportunity. Problem List - Problems (1) JOS (acute kidney injury) Code(s): N17.9 - ACUTE KIDNEY FAILURE, UNSPECIFIED (2) Pneumonia Code(s): J18.9 - PNEUMONIA, UNSPECIFIED ORGANISM (3) Respiratory failure with hypoxia Code(s): J96.91 - RESPIRATORY FAILURE, UNSPECIFIED WITH HYPOXIA Qualifiers: (4) Sepsis Code(s): A41.9 - SEPSIS, UNSPECIFIED ORGANISM (5) Altered mental status Code(s): R41.82 - ALTERED MENTAL STATUS, UNSPECIFIED Qualifiers: Altered mental status type: disorientation Qualified Code(s): R41.0 - Disorientation, unspecified Visit type - Emergency Visit Emergency Visit: Yes ED Registration Date: 06/01/19 Care time: The patient presented to the Emergency Department on the above date and was hospitalized for further evaluation of their emergent condition. - New Patient This patient is new to me today: Yes Date on this admission: 06/01/19 - Critical Care Critical Care patient: Yes Total Critical Care Time (in minutes): 35 Critical Care Statement: The care of this patient involved high complexity decision making to prevent further life threatening deterioration of the patient 's condition and/or to evaluate & treat vital organ system(s) failure or risk of failure. ATTENDING PHYSICIAN STATEMENT I saw and evaluated the patient. I reviewed the resident's note and discussed the case with the resident. I agree with the resident's findings and plan as documented. SUBJECTIVE: OBJECTIVE: ASSESSMENT AND PLAN:
[2019-06-01 02:52] LABS: BLOOD UREA NITROGEN 58.9 mg/dL (7-18); CALCIUM 7.8 mg/dL (8.5-10.1); CREATININE 2.5 mg/dL (0.55-1.3)
[2019-06-01] MEDS ORDERED: ALBUTEROL SO4 2.5/IPRATROPIUM 0.5 INH SOL 3 ML VIAL.NEB. NEB ONE (03:48)
[2019-06-01] MEDS ORDERED: methylPREDNISolone NA SUCC 40 MG/1 ML VIAL ONE (03:49)
[2019-06-01] MEDS: methylPREDNISolone NA SUCC 125 MG/2 ML VIAL IVPUSH SCH ×2 (03:54→09:51)
[2019-06-01] MEDS: ALBUTEROL SO4 2.5/IPRATROPIUM 0.5 INH SOL 3 ML VIAL.NEB. NEB SCH ×4 (03:57→21:37)
[2019-06-01] MEDS ORDERED: VANCOMYCIN 750 MG in DEXTROSE 5%-WATER - 250 ML IVPB ONE (04:00)
--- NOTE | 2019-06-01 04:01 | HP ---
CHIEF COMPLAINT: AMS PCP: None HISTORY OF PRESENT ILLNESS: Ms. Prescott is an 79 year old female with PMH of Parkinson Disease and dementia who was BIBEMS with AMS x4 days. Daughter is at bedside to assist with history. 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 At baseline she is non-ambulatory and mental status changes from day to day (some days she is alert and oriented, can speak sentences, other days she does nto speak at all). Pt has had a productive cough of yellow sputum for 4 days and has become increasingly confused and somnolent. Decreased appetite, unablet or eat or drink anything. Earlier today, she was not responding at all and had a low grade fever. Daughter states that pt has not complained of any symptoms ( chest pain, abd pain, SOB, urinary complaints). On arrival to ED, pt was hypoxic in the 80s. ER course was notable for: (1) Tachypneic with RR 22; saturating 94% on 4L NC, ABG: PH 7.31, Co2 44.8 P02 88 (2) CXR: BL infiltrates (3) Recent Travel: denies PAST MEDICAL HISTORY: As per HPI PAST SURGICAL HISTORY: BL knee replacement Social History: Smoking: denies Alcohol: denies Drugs: denies Allergies No Known Allergies Allergy (Verified 05/31/19 23:41) HOME MEDICATIONS: Home Medications Medication Instructions Recorded Ca/D3/Mag Ox/Zinc/Cashier Or Checker Stock Clerk/Ketan/Bor 1 each PO HS 04/13/18 [Calcium 600-D3 Plus Caplet] Carbidopa/Levodopa [Carbidopa-Levo 1 each PO TID 04/13/18 ER 50-200 Tab] Aspirin 81 mg PO DAILY 06/01/19 Melatonin 5 mg PO HS 06/01/19 Olanzapine [Zyprexa -] 7.5 mg PO DAILY 06/01/19 Omeprazole 20 mg PO DAILY 06/01/19 Rivastigmine [Exelon Patch 1 each TD DAILY 06/01/19 4.6MG/24 Hours] Rotigotine [Neupro] 1 each TD DAILY 06/01/19 REVIEW OF SYSTEMS CONSTITUTIONAL: fever Absent: chills, diaphoresis, generalized weakness, malaise, loss of appetite, weight change HEENT: Absent: rhinorrhea, nasal congestion, throat pain, throat swelling, difficulty swallowing, mouth swelling, ear pain, eye pain, visual changes CARDIOVASCULAR: Absent: chest pain, syncope, palpitations, irregular heart rate, lightheadedness , peripheral edema RESPIRATORY: cough Absent: shortness of breath, dyspnea with exertion, orthopnea, wheezing, stridor , hemoptysis GASTROINTESTINAL: Absent: abdominal pain, abdominal distension, nausea, vomiting, diarrhea, constipation, melena, hematochezia GENITOURINARY: Absent: dysuria, frequency, urgency, hesitancy, hematuria, flank pain, genital pain MUSCULOSKELETAL: Absent: myalgia, arthralgia, joint swelling, back pain, neck pain SKIN: Absent: rash, itching, pallor HEMATOLOGIC/IMMUNOLOGIC: Absent: easy bleeding, easy bruising, lymphadenopathy, frequent infections ENDOCRINE: Absent: unexplained weight gain, unexplained weight loss, heat intolerance, cold intolerance NEUROLOGIC: mental status changes Absent: headache, focal weakness or paresthesias, dizziness, unsteady gait, seizure, bladder or bowel incontinence PSYCHIATRIC: Absent: anxiety, depression, suicidal or homicidal ideation, hallucinations. PHYSICAL EXAMINATION Vital Signs - 24 hr 05/31/19 06/01/19 06/01/19 23:38 00:37 00:44 Temperature 99.7 F H Pulse Rate 86 Pulse Rate [ 100 H Right Radial] Respiratory 24 H 22 H Rate Blood Pressure 126/79 Blood Pressure 109/72 [Right Arm] O2 Sat by Pulse 86 L 90 L 94 L Oximetry (%) 06/01/19 03:00 Temperature Pulse Rate Pulse Rate [ 90 Right Radial] Respiratory 20 Rate Blood Pressure Blood Pressure 124/68 [Right Arm] O2 Sat by Pulse 99 Oximetry (%) GENERAL: Somnolent, slightly responsive to sternal rub. HEAD: Normal with no signs of trauma. EYES: Pupils equal, round and reactive to light, extraocular movements intact, sclera anicteric, conjunctiva clear. No lid lag. EARS, NOSE, THROAT: Ears normal, nares patent, oropharynx clear without exudates. Dry mucous membranes. NECK: Normal range of motion, supple without lymphadenopathy, JVD, or masses. LUNGS: Inspiratory and expiratory wheezes throughout, accessory muscle use. HEART: Regular rate and rhythm, normal S1 and S2 without murmur, rub or gallop. ABDOMEN: Soft, nontender, not distended, normoactive bowel sounds, no guarding, no rebound, no masses. No hepatomegaly or splenomegaly. MUSCULOSKELETAL: Normal range of motion at all joints. No bony deformities or tenderness. No CVA tenderness. UPPER EXTREMITIES: 2+ pulses, warm, well-perfused. No cyanosis. No clubbing. No peripheral edema. LOWER EXTREMITIES: 2+ pulses, warm, well-perfused. No calf tenderness. No peripheral edema. NEUROLOGICAL: Unable to assess 2/2 mental status. PSYCHIATRIC: Cooperative. Good eye contact. Appropriate mood and affect. SKIN: Warm, dry, normal turgor, normal capillary refill. Sacral decubitus ulcer with sloughing skin and erythema. Laboratory Results - last 24 hr CBC, BMP 06/01/19 00:18 06/01/19 02:15 ASSESSMENT/PLAN: Ms. Prescott is an 79 year old female with PMH of Parkinson Disease and dementia who was BIBEMS with AMS, cough, and fevers x4 days. #Acute hypoxic respiratory failure #Sepsis likely 2/2 aspiration pneumonia CXR: BL infiltrates -- repeat CXR in am for changes CT head to r/o acute pathology Repeat ABG in am to monitor respiratory status F/u sputum and blood cx, urine for legionella Trend BMP, Mg, Ph, and lactic acid Cont IV zosyn 3.375gm IV solumedrol 60mg Q6H Duonebs prn on board NPO due to mental status and aspiration risk Speech and swallow evaluation ID consultation (Dr. Avelar) Frequent neuro checks, pt not at baseline >>If patient cannot protect airway, may need to intubate #JOS Cr: 2.6, baseline ~0.9; CK >3000 Likely pre-renal in setting of sepsis and dehydration F/u urine Na, Cr, AND FeNa Renal US ordered IV NS @ 100ml/hr Nephrology consulted (Dr. May) #Rhabdomyolysis CK >3000 UA: 2+ proteinm 2+ blood IV NS @ 100ml/hr #Transaminitis and elevated T bili Likely 2/2 sepsis Will f/u abdominal US to r/o acute pathology #Parkinson disease Cont home meds: carbidopa/levodopa 50-200mg TID, neupro 6mg patch #Dementia Cont home meds: olanzapine 7.5mg HS, rivastigmine 4.6mg patch #FEN IV NS @ 100ml/hr NPO until mental status improves #DVT ppx Heparin sq #Dispo Full code Visit type - Emergency Visit Emergency Visit: Yes ED Registration Date: 06/01/19 Care time: The patient presented to the Emergency Department on the above date and was hospitalized for further evaluation of their emergent condition. - New Patient This patient is new to me today: Yes Date on this admission: 07/11/19 - Critical Care Critical Care patient: No ATTENDING PHYSICIAN STATEMENT I saw and evaluated the patient. I reviewed the resident's note and discussed the case with the resident. I agree with the resident's findings and plan as documented. SUBJECTIVE: OBJECTIVE: ASSESSMENT AND PLAN:
[2019-06-01] MEDS: HEPARIN NA (PORCINE) 5,000 UNITS/ML 1ML VIAL SQ SCH ×3 (06:47→21:08)
[2019-06-01] MEDS ORDERED: LACTATED RINGERS SOLUTION 1,000 ML/1,000 ML INFUS.BAG IV SCH (07:15)
[2019-06-01] MEDS ORDERED: PIPERACILLIN/TAZOB 3.375 GM 3.375 GM in DEXTROSE 5%-WATER - 50 ML IVPB SCH ×2 (09:00→18:00)
[2019-06-01] MEDS ORDERED: DEXTROSE 5%-WATER - 50 ML IVPB ONE ×2 (09:50→18:02)
[2019-06-01] MEDS ORDERED: PT OWN MED DRAWER 7, Y5N ONE (09:50)
[2019-06-01] MEDS ORDERED: PIPERACILLIN/TAZOBACTAM 2.25 GM VIAL IVPB ONE (09:50)
[2019-06-01] MEDS ORDERED: PIPERACILLIN/TAZOB 2.25 GM 2.25 GM in DEXTROSE 5%-WATER - 50 ML IVPB SCH (10:00)
[2019-06-01] MEDS ORDERED: PATIENT'S OWN MEDICATION (NON-FORMULARY) (Rotigotine [Neupro] 1 EACH) TD SCH (10:00)
[2019-06-01] MEDS ORDERED: RIVASTIGMINE 4.6 MG/24 HOURS TRANSDERMAL PATCH TD SCH (10:00)
[2019-06-01] MEDS ORDERED: PANTOPRAZOLE SODIUM 40 MG VIAL IVPUSH SCH (10:00)
[2019-06-01] MEDS ORDERED: VANCOMYCIN 1 GM in D5W (PRE-DOCKED) 1,000 MG/250 ML IVPB SCH ×2 (10:00→16:00)
--- NOTE | 2019-06-01 10:06 | EKG ---
Test Reason : Blood Pressure : / mmHG Vent. Rate : 101 BPM Atrial Rate : 101 BPM P-R Int : 144 ms QRS Dur : 152 ms QT Int : 394 ms P-R-T Axes : 038 -61 019 degrees QTc Int : 510 ms SINUS TACHYCARDIA RIGHT BUNDLE BRANCH BLOCK LEFT ANTERIOR FASCICULAR BLOCK BIFASCICULAR BLOCK MODERATE VOLTAGE CRITERIA FOR LVH, MAY BE NORMAL VARIANT CANNOT RULE OUT SEPTAL INFARCT (CITED ON OR BEFORE 01-JUN-2019) ABNORMAL ECG WHEN COMPARED WITH ECG OF 13-APR-2018 15:53, VENT. RATE HAS INCREASED BY 42 BPM Confirmed by PRABHJOT PEREZ MD ([id number]) on 06/01/2019 10:06:28 AM Referred By: Confirmed By:PRABHJOT PEREZ MD
[2019-06-01 10:54] LABS: BASO % 0.1 % (0-2.0); HEMATOCRIT 35.6 % (32.4-45.2); LYMPH % 5.7 % (8-40); MCH 22.5 pg (25.7-33.7); MCHC 30.8 g/dl (32.0-36.0); MEAN CELL VOLUME 73.1 fl (80-96); MEAN PLT VOLUME 9.9 fl (7.5-11.1); NEUT % 91.2 % (42.8-82.8); PLATELET COUNT 128 K/MM3 (134-434); RBC 4.87 M/mm3 (3.60-5.2); WHITE BLOOD COUNT 17.2 K/mm3 (4.0-10.0)
[2019-06-01 11:04] LABS: INR 1.16 (0.83-1.09); PROTHROMBIN TIME (PATIENT) 13.7 SEC (9.7-13.0)
[2019-06-01 11:18] LABS: ARTERIAL BLD GAS O2 SATURATION 96.6 % (95-98); ARTERIAL BLOOD GAS BASE EXCESS -2.4 meq/l (-2-2); ARTERIAL BLOOD GAS PCO2 41.8 mmHg (35-45); ARTERIAL BLOOD GAS pH 7.35 (7.35-7.45)
[2019-06-01 11:28] LABS: ANISOCYTOSIS 1+; MACROCYTOSIS 0; PLATELET ESTIMATE DECREASED; TARGET CELLS 1+
[2019-06-01 11:31] LABS: ALBUMIN 2.5 g/dl (3.4-5.0); BILIRUBIN,TOTAL 0.8 mg/dL (0.2-1); BLOOD UREA NITROGEN 47.4 mg/dL (7-18); CALCIUM 7.7 mg/dL (8.5-10.1); CREATININE 1.7 mg/dL (0.55-1.3); MAGNESIUM 2.5 mg/dL (1.8-2.4); POTASSIUM 4.4 mmol/L (3.5-5.1); TOT PROT 7.3 g/dl (6.4-8.2)
[2019-06-01 11:36] LABS: ALLENS TEST POSITIVE
--- NOTE | 2019-06-01 11:36 | PN ---
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 (short form) - Note 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: ID CONSULT DICTATED RESP FAILURE PNEUMONIA R/O SEPSIS SECONDARY TO PNEUMONIA TOXIC METABOLIC ENCEPHALOPATHY LEUKOCYTOSIS LACTIC ACIDOSIS RENAL INSUFFICIENCY HX ESBL,URINE SACRAL DECUBITUS PENDING SEPSIS WORKUP EMPIRIC ZOSYN/ ZITHROMAX, STAT DOSE VANCOMYCIN CRITICAL CARE TIME 35MIN
[2019-06-01] MEDS ORDERED: AZITHROMYCIN IVPB 500 MG/250 ML BAG IVPB SCH (12:00)
[2019-06-01] MEDS: MUPIROCIN 2% TOPICAL OINTMENT FOR DECOLONIZATION NS SCH ×2 (12:05→21:08)
[2019-06-01] MEDS: methylPREDNISolone NA SUCC 40 MG/1 ML VIAL IVPUSH SCH (12:06)
[2019-06-01] MEDS: LACTATED RINGERS SOLUTION 1,000 ML/1,000 ML INFUS.BAG IV SCH (12:06)
--- NOTE | 2019-06-01 12:28 | PN ---
Teaching Attending Note Name of Resident: Vangie Teresa ATTENDING PHYSICIAN STATEMENT I saw and evaluated the patient. I reviewed the resident's note and discussed the case with the resident. I agree with the resident's findings and plan as documented. SUBJECTIVE: Pt seen and examined in the ICU. Lethargic but hemodynamically stable, saturating well on nasal cannula without distress. OBJECTIVE: Vital Signs Period Temp Pulse Resp BP Sys/Campbell Pulse Ox Last 24 Hr 97.5 F-99.7 F 59-100 15-24 109-143/68-83 86-100 Intake & Output 05/29/19 05/30/19 05/31/19 06/01/19 23:59 23:59 23:59 23:59 Weight 68.039 kg 61.054 kg Gen: lethargic, breathing nonlabored Heart: RRR Lung: scattered rhonchi Abd: soft, nontender Ext: no edema CBC, BMP 06/01/19 09:40 06/01/19 09:40 Active Medications Albuterol/Ipratropium (Duoneb -) 1 amp NEB RTID [facility] Last Admin: 06/01/19 11:21 Dose: 1 amp Chlorhexidine Gluconate (Hibiclens For Decolonization -) 1 applic TP HS [facility] Heparin Sodium (Porcine) (Heparin -) 5,000 unit SQ TID [facility] Last Admin: 06/01/19 06:47 Dose: 5,000 unit Azithromycin (Zithromax 500mg Ivpb (Pre-Docked)) 500 mg in 250 mls @ 250 mls/ hr IVPB DAILY [facility] Piperacillin Sod/Tazobactam (Sod 3.375 gm/ Dextrose) 50 mls @ 100 mls/hr IVPB Q8H-IV [facility]; Protocol Vancomycin HCl (Vancomycin (Pre-Docked)) 1,000 mg in 250 mls @ 166.667 mls/hr IVPB ONCE ONE; Protocol Stop: 06/01/19 14:29 Last Admin: 06/01/19 12:07 Dose: 166.667 mls/hr Lactated Ringer's (Lactated Ringers Solution) 1,000 ml in 1,000 mls @ 100 mls/ hr IV ASDIR [facility] Last Admin: 06/01/19 12:06 Dose: 100 mls/hr Methylprednisolone Sodium Succinate (Solu-Medrol -) 40 mg IVPUSH DAILY [facility] Last Admin: 06/01/19 12:06 Dose: Not Given Mupirocin (Bactroban Ointment (For Decolonization) -) 1 applic NS BID [facility] Stop: 06/06/19 09:59 Last Admin: 06/01/19 12:05 Dose: 1 applic Non-Formulary Medication (Rotigotine [Neupro]) 1 each TD DAILY [facility] Pantoprazole Sodium (Protonix Iv) 40 mg IVPUSH DAILY [facility] Last Admin: 06/01/19 09:51 Dose: 40 mg ASSESSMENT AND PLAN: Altered Mental Status likely Toxic Metabolic Encephalopathy Pneumonia Severe Sepsis Lactic Acidosis Thrombocytopenia Acute Kidney Injury Rhabdomyolysis HTN DM Parkinsons Dementia - continue antibiotics - f/u cultures - IVF - monitor urine output, creatinine - trend CPK - O2 to keep Spo2 >90% - on empiric medrol - aspiration precautions - DVT prophylaxis - can monitor on floor critical care time spent in reviewing chart, evaluating patient and formulating plan 35 min
[2019-06-01] MEDS: PIPERACILLIN/TAZOB 3.375 GM 2.25 GM in DEXTROSE 5%-WATER - 50 ML IVPB SCH ×2 (12:38→12:39)
[2019-06-01] MEDS ORDERED: VANCOMYCIN 1 GRAM (PRE-DOCKED) 1,000 MG/250 ML BAG IVPB ONE (13:00)
--- NOTE | 2019-06-01 13:23 | CONS ---
INFECTIOUS DISEASE CONSULTATION DATE OF CONSULTATION: DATE OF DICTATION: 06/01/2019 HISTORY: 79-year-old female evaluated for sepsis. History was obtained from the chart as she cannot give a history. Patient lives at home. She is cared for by family members. They report that over the past 3-4 days she has had worsening mental status with increased lethargy and decreased alertness. She normally is interactive; however, over the past several days has become more somnolent. She also appeared weak, had a low-grade fever, and was noted to have cough productive of yellowish sputum. They reported some shortness of breath at rest. According to the notes, she was exposed to grandchildren who have been ill with respiratory treatment illnesses. She was brought to the emergency room where she was noted to be hypoxemic. CAT scan of the head was performed and was negative for acute infarct or bleed. Chest x-ray shows a right-sided infiltrate. She was empirically treated with vancomycin and Zosyn. Patient was hospitalized at [facility] in March and April. She had a 1-month hospitalization. At that time, she had a positive urine culture for ESBL as well as blood cultures positive for Staphylococcus epidermidis. PAST MEDICAL HISTORY: Positive for parkinsonism, dementia, history of sacral decubitus ulcer. PAST SURGICAL HISTORY: Status post bilateral total knee replacements. ALLERGIES: No known allergies. MEDICATIONS: Presently include albuterol, Solu-Medrol, Protonix, vancomycin, Zosyn. Home medications include carbidopa, aspirin, Zyprexa, Protonix. SOCIAL HISTORY: She resides at home. She is cared for by family members. She is a nonsmoker. She is nonambulatory. SYSTEMS REVIEW: Neurologic: Positive for parkinsonism and dementia. Cardiac: Negative chest pain or palpitations. Respiratory: As per HPI. Gastrointestinal: Negative vomiting or diarrhea. Genitourinary: Negative for urinary tract infection. LABORATORY DATA: White count 17.9, hematocrit 37.7, platelets 165, 66 neutrophils, 27 lymphocytes, 5 monocytes, BUN 58, creatinine 2.5, lactic acid 2.4. Urinalysis, 7 white cells. Influenza swab negative. PHYSICAL EXAMINATION: General: She is awake but not conversant. Breathing is slightly labored. Vital Signs: Temperature 97.5, maximum temperature 99.7, blood pressure 123/78, pulse 74 regular, respirations 17 per minute. HEENT: Sclerae anicteric. Heart: Sounds S1, S2. Lungs: Scattered rhonchi and mild wheezing bilaterally. Abdomen: Obese, soft, nontender. Extremities: Positive for edema. Skin: There is a sacral decubitus ulcer stage 1-2 with bloody drainage. No gross purulence or foul odor. IMPRESSION: 1. Respiratory insufficiency. 2. Pneumonia. 3. Rule out sepsis secondary to pneumonia. 4. Toxic metabolic encephalopathy superimposed on dementia and parkinsonism. 5. Leukocytosis. 6. Lactic acid. 7. Renal insufficiency. 8. History of extended-spectrum beta-lactamase in the urine. 9. Sacral decubitus ulcer. PLAN: Await sepsis workup. Empiric antibiotic coverage with Zithromax and Zosyn as well as STAT dose vancomycin. Further recommendations pending cultures. We will follow. Critical care time spent, 35 minutes. Thank you for the kind referral. ESTIVEN BRANNON M.D. [id number]
--- NOTE | 2019-06-01 14:37 | CONSULT ---
Consult Consult Specialty:: Nephrology Reason for Consultation:: JOS - History of Present Illness Chief Complaint: change in mental status History of Present Illness: Pt is an 79 year old female with pmhx of parkinsons and dementia who was brought to the hospital with altered mental status. I was called to evaluate her for OJS. Her renal function has been improving. Pt is lethargic and unable to give history. Chart was reviewed. She did however have increase cough prior to hospital admission. She is now admitted to the ICU. 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 No: Seizure, Syncope Cardio/Vascular: Yes: HTN, Hyperlipdemia Musculoskeletal: Yes: Other (osteoporosis) Endocrine: Yes: Diabetes Mellitus - Past Surgical History Past Surgical History: Yes: Hysterectomy, Joint Replacement (Bilateral knee surgery) - Alcohol/Substance Use Hx Alcohol Use: No - Smoking History Smoking history: Never smoked Have you smoked in the past 12 months: No - Social History Usual Living Arrangement: With Significant Other Home Medications - Allergies Allergies/Adverse Reactions: Allergies Allergy/AdvReac Type Severity Reaction Status Date / Time No Known Allergies Allergy Verified 05/31/19 23:41 - Home Medications Home Medications: Ambulatory Orders Ca/D3/Mag Ox/Zinc/Aviation Neuropsychologist/Ketan/Bor [Calcium 600-D3 Plus Caplet] 1 each PO HS Carbidopa/Levodopa [Carbidopa-Levo ER 50-200 Tab] 1 each PO TID 04/13/18 Aspirin 81 mg PO DAILY 06/01/19 Melatonin 5 mg PO HS 06/01/19 Olanzapine [Zyprexa -] 7.5 mg PO DAILY 06/01/19 Omeprazole 20 mg PO DAILY 06/01/19 Rivastigmine [Exelon Patch 4.6MG/24 Hours] 1 each TD DAILY 06/01/19 Rotigotine [Neupro] 1 each TD DAILY 06/01/19 Family Medical History Family History: Unable to Obtain Review of Systems Unable to obtain ROS, reason: lethargic Physical Exam Vital Signs: Vital Signs Temperature 97.9 F 06/01/19 10:00 Pulse Rate 81 06/01/19 12:00 Respiratory Rate 19 06/01/19 12:00 Blood Pressure 143/83 06/01/19 12:00 O2 Sat by Pulse Oximetry (%) 100 06/01/19 09:00 Constitutional: Yes: Calm Eyes: Yes: Conjunctiva Clear HENT: Yes: Atraumatic Cardiovascular: Yes: S1, S2 Respiratory: Yes: On Nasal O2 Gastrointestinal: Yes: Soft Renal/: Yes: Incontinence Musculoskeletal: Yes: Muscle Weakness Edema: No Neurological: Yes: Lethargy Labs: CBC, BMP 06/01/19 09:40 06/01/19 09:40 Laboratory Tests 06/01/19 06/01/19 06/01/19 00:18 01:20 02:15 Creatinine 2.6 H 2.5 H Urine Protein 2+ H Urine Blood 2+ H 06/01/19 09:40 Creatinine 1.7 H Urine Protein Urine Blood Imaging - Results Chest X-ray: Report Reviewed Problem List - Problems (1) Rhabdomyolysis Code(s): M62.82 - RHABDOMYOLYSIS (2) JOS (acute kidney injury) Code(s): N17.9 - ACUTE KIDNEY FAILURE, UNSPECIFIED (3) Pneumonia Code(s): J18.9 - PNEUMONIA, UNSPECIFIED ORGANISM (4) Sepsis Code(s): A41.9 - SEPSIS, UNSPECIFIED ORGANISM Assessment/Plan Current Medications Generic Name Dose Route Start Last Admin Trade Name Freq PRN Reason Stop Dose Admin Albuterol/Ipratropium 1 amp 06/01/19 02:43 06/01/19 11:21 Duoneb - NEB 1 amp RTID [facility]YL Administration Chlorhexidine Gluconate 1 applic 06/01/19 22:00 Hibiclens For Decolonization - TP HS [facility] Heparin Sodium (Porcine) 5,000 unit 06/01/19 06:00 06/01/19 13:35 Heparin - SQ 5,000 unit TID [facility] Administration Azithromycin 500 mg in 250 mls @ 250 mls/hr 06/01/19 12:00 06/01/19 13:35 Zithromax 500mg Ivpb (Pre-Docked) IVPB 250 mls/hr DAILY [facility] Administration Piperacillin Sod/Tazobactam 50 mls @ 100 mls/hr 06/01/19 18:00 Sod 3.375 gm/ Dextrose IVPB Q8H-IV [facility] Protocol Lactated Ringer's 1,000 ml in 1,000 mls @ 100 mls/hr 06/01/19 12:00 06/01/19 12:06 Lactated Ringers Solution IV 100 mls/hr ASDIR [facility] Administration Methylprednisolone Sodium Succinate 40 mg 06/01/19 12:00 06/01/19 12:06 Solu-Medrol - IVPUSH Not Given DAILY [facility] Mupirocin 1 applic 06/01/19 10:00 06/01/19 12:05 Bactroban Ointment (For Decolonization) - NS 06/06/19 09:59 1 applic BID [facility] Administration Non-Formulary Medication 1 each 06/01/19 10:00 Rotigotine [Neupro] TD DAILY [facility] Pantoprazole Sodium 40 mg 06/01/19 10:00 06/01/19 09:51 Protonix Iv IVPUSH 40 mg DAILY [facility] Administration Impression 1. JOS 2. sepsis 3. PNA 4. dementia 5. parkinsons 6. lactic acidosis 7. rhabdo 8. DM 9. HTN Plan - renal function is improved - cont to monitor lytes - cont fluids - monitor resp status - trend cpk level - jos likely a combination of sepsis, rhabdo and prerenal disease
--- NOTE | 2019-06-01 14:40 | CONSULT ---
Admitting History and Physical - Primary Care Physician PCP: Kole Arriola - Admission History of Present Illness: Per EMR- HISTORY OF PRESENT ILLNESS: Ms. Prescott is an 79 year old female with PMH of Parkinson Disease and dementia who was BIBEMS with AMS x4 days. Daughter is at bedside to assist with history. Pt lives at home (no [facility] or [facility]) with daughter as primary market development analyst. At baseline she is non-ambulatory and mental status changes from day to day (some days she is alert and oriented, can speak sentences, other days she does nto speak at all). Pt has had a productive cough of yellow sputum for 4 days and has become increasingly confused and somnolent. On arrival to ED, pt was hypoxic in the 80s. ER course was notable for: (1) Tachypneic with RR 22; saturating 94% on 4L NC, ABG: PH 7.31, Co2 44.8 P02 88 (2) CXR: BL infiltrates Altered Mental Status likely Toxic Metabolic Encephalopathy Pneumonia Severe Sepsis Lactic Acidosis Thrombocytopenia Acute Kidney Injury Rhabdomyolysis HTN DM Parkinsons Dementia Pt last known to me from April 2018 admission- Taking very little by mouth for staff. Difficulty to give medication. Family fed pt 1 soup and an Ensure over a 2 hour period. REC: Mix puree into Ensure/liquid to sip meals. Ensure compact TID HOB elevated, Chin tucked down Single sips, tell pt to swallow repeatedly until swallow reflex is seen/palpated Monitor for congestion, fever, sufficient PO intake. Suggested to consider PEG to supplement PO intake for nutrition, hydration, medication PEG placed to supplement PO intake, following Palliative care consult. Pt was a full code. Pt was d/c'd to [facility] at that time. Per pt's daughter, pt brought home from [facility]. PEG removed 3 months ago as it was "getting black and infected and we didn't use it." She has been eating maqshed reg food and thin liquids at home. Her daughter reports that she gave her mother "soup and food with syringe "in ED. She feels she "has to eat or she won't improve". Pt has a cough. Educated pt's daughter on aspiration risk, with impaired MEE. 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. 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 No: Seizure, Syncope Cardiovascular: Yes: HTN, Hyperlipdemia Musculoskeletal: Yes: Other (osteoporosis) Endocrine: Yes: Diabetes Mellitus - Past Surgical History Past Surgical History: Yes: Hysterectomy, Joint Replacement (Bilateral knee surgery) - Smoking History Smoking history: Never smoked Have you smoked in the past 12 months: No - Alcohol/Substance Use Hx Alcohol Use: No History - Admission Reason For Visit: ACUTE RESPIRATORY FAILURE, SEPSIS - Diagnostics X-ray: Report Reviewed (Bilateral infiltrates) CT Scan: Report Reviewed - General Mental Status: Lethargic (Lightens however eyes remain closed) Attention: Severe Impairment Ability to Follow Directions: Poor Head/Neck Control: Needs Assist - Hearing Hearing: Normal Speech Evaluation - Communication Primary Language: TAIWANESE Communication: Yes: Non-Communicable (lethargic) - Speech Characteristics Articulation: Yes: Imprecise - Language/Auditory Comprehension Observation: Comprehends Conversational Speech: No (maybe social speech) - Swallow Evaluation/Bedside Assessment Current Nutritional Intake: NPO Rate of Intake: Slow/Holding Bolus Size: Small A-P Transit: Impaired Pocketing: Present Bilaterally Timing of Swallow: Absent Coughing/Throat Clear: Yes Recommendations - Speech Evaluation, Impression/Plan Impression: Lethargic, oral holding, no swallow initiated. Pt's daughter fed pt with syringe yesterday. Educated her daughter on lethargy, oral holding, no visible swallow reflex with high risk of aspiration. Pt had PEG insertion for poor PO intake, (placed at [facility] 04/2018) which was removed 3 months ago. - Disposition Discharge to: To be Determined - Dysphagia Impressions/Plan Swallowing Skills: Impaired Dysphagia Impressions: Severe Impairment, Suspect Aspiration *Silent aspiration: cannot be R/O at bedside Recommendations: Other (NPO including medication) - Recommendations Diet Consistency: NPO Liquids: NPO
--- NOTE | 2019-06-01 14:53 | PN ---
Physical Exam: SUBJECTIVE: Patient seen and examined OBJECTIVE: Vital Signs Period Temp Pulse Resp BP Sys/Campbell Pulse Ox Last 24 Hr 97.5 F-99.7 F 59-100 15-24 109-143/68-83 86-100 GENERAL: The patient is somnolent. arousable to sternal rub HEAD: Normal with no signs of trauma. EYES: PERRL, extraocular movements intact, sclera anicteric, conjunctiva clear. No ptosis. ENT: Ears normal, nares patent, oropharynx clear without exudates, moist mucous membranes. NECK: Trachea midline. LUNGS: rhonchi HEART: Regular rate and rhythm, S1, S2 without murmur, rub or gallop. ABDOMEN: Soft, nontender, nondistended, normoactive bowel sounds, no guarding, no rebound, no hepatosplenomegaly, no masses. EXTREMITIES: 2+ pulses, warm, well-perfused, no edema. NEUROLOGICAL: not evaluated. pt. lethargic SKIN: Warm, dry, normal turgor, no rashes or lesions noted Laboratory Results - last 24 hr 06/01/19 06/01/19 06/01/19 00:18 00:18 00:18 WBC 17.9 H RBC 5.22 H Hgb 11.9 Hct 37.7 MCV 72.3 L MCH 22.8 L MCHC 31.5 L RDW 18.0 H Plt Count 165 D MPV 10.5 D Absolute Neuts (auto) 12.0 H Neutrophils % 66.8 Neutrophils % (Manual) Band Neutrophils % Lymphocytes % 27.9 Lymphocytes % (Manual) Monocytes % 5.0 Monocytes % (Manual) Eosinophils % 0.1 D Eosinophils % (Manual) Basophils % 0.2 Basophils % (Manual) Myelocytes % (Man) Promyelocytes % (Man) Blast Cells % (Manual) Nucleated RBC % 0 Metamyelocytes Hypochromia Platelet Estimate Adequate Platelet Comment No clumping noted Polychromasia Poikilocytosis Anisocytosis Microcytosis Macrocytosis Target Cells PT with INR 13.30 H INR 1.13 H PTT (Actin FS) 30.0 Anticoagulation Therapy Puncture Site ABG pH ABG pCO2 at Pt Temp ABG pO2 at Pt Temp ABG HCO3 ABG O2 Sat (Measured) ABG O2 Content ABG Base Excess Gaetano Test VBG pH POC VBG pCO2 POC VBG pO2 VBG HCO3 VBG O2 Sat (Makenna) VBG Base Excess Carboxyhemoglobin Methemoglobin O2 Delivery Device Oxygen Flow Rate Vent Mode Vent Rate Mechanical Rate Pressure Support Vent Sodium Cancelled Potassium Cancelled Chloride Cancelled Carbon Dioxide Cancelled Anion Gap Cancelled BUN Cancelled Creatinine Cancelled Est GFR (CKD-EPI)AfAm Cancelled Est GFR (CKD-EPI)NonAf Cancelled Random Glucose Cancelled Lactic Acid Calcium Cancelled Phosphorus Magnesium Total Bilirubin Cancelled AST Cancelled ALT Cancelled Alkaline Phosphatase Cancelled Ammonia Creatine Kinase Creatine Kinase Index CK-MB (CK-2) Troponin I B-Natriuretic Peptide Total Protein Cancelled Albumin Cancelled Vitamin B12 TSH Urine Color Urine Appearance Urine pH Ur Specific [place] Urine Protein Urine Glucose (UA) Urine Ketones Urine Blood Urine Nitrite Urine Bilirubin Urine Urobilinogen Ur Leukocyte Esterase Urine WBC (Auto) Urine RBC (Auto) Urine Casts (Auto) U Epithel Cells (Auto) Urine Bacteria (Auto) Ur Random Creatinine Ur Random Sodium RPR Titer Influenza A (Rapid) Influenza B (Rapid) 06/01/19 06/01/19 06/01/19 00:18 00:18 00:18 WBC RBC Hgb Hct MCV MCH MCHC RDW Plt Count MPV Absolute Neuts (auto) Neutrophils % Neutrophils % (Manual) Band Neutrophils % Lymphocytes % Lymphocytes % (Manual) Monocytes % Monocytes % (Manual) Eosinophils % Eosinophils % (Manual) Basophils % Basophils % (Manual) Myelocytes % (Man) Promyelocytes % (Man) Blast Cells % (Manual) Nucleated RBC % Metamyelocytes Hypochromia Platelet Estimate Platelet Comment Polychromasia Poikilocytosis Anisocytosis Microcytosis Macrocytosis Target Cells PT with INR INR PTT (Actin FS) Anticoagulation Therapy Puncture Site ABG pH ABG pCO2 at Pt Temp ABG pO2 at Pt Temp ABG HCO3 ABG O2 Sat (Measured) ABG O2 Content ABG Base Excess Gaetano Test VBG pH POC VBG pCO2 POC VBG pO2 VBG HCO3 VBG O2 Sat (Makenna) VBG Base Excess Carboxyhemoglobin Methemoglobin O2 Delivery Device Oxygen Flow Rate Vent Mode Vent Rate Mechanical Rate Pressure Support Vent Sodium 142 Potassium 5.8 H Chloride 109 H Carbon Dioxide 24 Anion Gap 10 BUN 62.8 H Creatinine 2.6 H Est GFR (CKD-EPI)AfAm 19.27 Est GFR (CKD-EPI)NonAf 16.63 Random Glucose 129 H Lactic Acid 2.3 H* Calcium 8.4 L Phosphorus Magnesium 2.4 Total Bilirubin 1.3 H AST 115 H ALT 18 Alkaline Phosphatase 120 H Ammonia Creatine Kinase 3050 H Creatine Kinase Index 0.1 CK-MB (CK-2) 4.6 H Troponin I < 0.02 B-Natriuretic Peptide 406.5 Cancelled Total Protein 8.4 H Albumin 3.0 L Vitamin B12 TSH Urine Color Urine Appearance Urine pH Ur Specific [place] Urine Protein Urine Glucose (UA) Urine Ketones Urine Blood Urine Nitrite Urine Bilirubin Urine Urobilinogen Ur Leukocyte Esterase Urine WBC (Auto) Urine RBC (Auto) Urine Casts (Auto) U Epithel Cells (Auto) Urine Bacteria (Auto) Ur Random Creatinine Ur Random Sodium RPR Titer Influenza A (Rapid) Influenza B (Rapid) 06/01/19 06/01/19 06/01/19 00:18 00:20 01:00 WBC RBC Hgb Hct MCV MCH MCHC RDW Plt Count MPV Absolute Neuts (auto) Neutrophils % Neutrophils % (Manual) Band Neutrophils % Lymphocytes % Lymphocytes % (Manual) Monocytes % Monocytes % (Manual) Eosinophils % Eosinophils % (Manual) Basophils % Basophils % (Manual) Myelocytes % (Man) Promyelocytes % (Man) Blast Cells % (Manual) Nucleated RBC % Metamyelocytes Hypochromia Platelet Estimate Platelet Comment Polychromasia Poikilocytosis Anisocytosis Microcytosis Macrocytosis Target Cells PT with INR INR PTT (Actin FS) Anticoagulation Therapy Puncture Site ABG pH ABG pCO2 at Pt Temp ABG pO2 at Pt Temp ABG HCO3 ABG O2 Sat (Measured) ABG O2 Content ABG Base Excess Gaetano Test VBG pH 7.28 L POC VBG pCO2 53.0 H POC VBG pO2 < 49 H VBG HCO3 24.1 VBG O2 Sat (Makenna) 49.2 L VBG Base Excess -2.6 L Carboxyhemoglobin Methemoglobin O2 Delivery Device Oxygen Flow Rate Vent Mode Vent Rate Mechanical Rate Pressure Support Vent Sodium Potassium Chloride Carbon Dioxide Anion Gap BUN Creatinine Est GFR (CKD-EPI)AfAm Est GFR (CKD-EPI)NonAf Random Glucose Lactic Acid Calcium Phosphorus Magnesium Total Bilirubin AST ALT Alkaline Phosphatase Ammonia Creatine Kinase Creatine Kinase Index CK-MB (CK-2) Troponin I B-Natriuretic Peptide Total Protein Albumin Vitamin B12 TSH Urine Color Urine Appearance Urine pH Ur Specific [place] Urine Protein Urine Glucose (UA) Urine Ketones Urine Blood Urine Nitrite Urine Bilirubin Urine Urobilinogen Ur Leukocyte Esterase Urine WBC (Auto) Urine RBC (Auto) Urine Casts (Auto) U Epithel Cells (Auto) Urine Bacteria (Auto) Ur Random Creatinine 119.0 Ur Random Sodium 36 L RPR Titer Influenza A (Rapid) Negative Influenza B (Rapid) Negative 06/01/19 06/01/19 06/01/19 01:20 02:05 02:15 WBC RBC Hgb Hct MCV MCH MCHC RDW Plt Count MPV Absolute Neuts (auto) Neutrophils % Neutrophils % (Manual) Band Neutrophils % Lymphocytes % Lymphocytes % (Manual) Monocytes % Monocytes % (Manual) Eosinophils % Eosinophils % (Manual) Basophils % Basophils % (Manual) Myelocytes % (Man) Promyelocytes % (Man) Blast Cells % (Manual) Nucleated RBC % Metamyelocytes Hypochromia Platelet Estimate Platelet Comment Polychromasia Poikilocytosis Anisocytosis Microcytosis Macrocytosis Target Cells PT with INR INR PTT (Actin FS) Anticoagulation Therapy No Result Required. Puncture Site Right radial ABG pH 7.31 L ABG pCO2 at Pt Temp 44.5 ABG pO2 at Pt Temp 88.2 ABG HCO3 21.9 L ABG O2 Sat (Measured) 95.2 ABG O2 Content 13.8 ABG Base Excess -3.7 L Gaetano Test Positive VBG pH POC VBG pCO2 POC VBG pO2 VBG HCO3 VBG O2 Sat (Makenna) VBG Base Excess Carboxyhemoglobin 1.0 Methemoglobin < 1.0 O2 Delivery Device N/c Oxygen Flow Rate 4.0 lpm Vent Mode No Result Required. Vent Rate No Result Required. Mechanical Rate No Result Required. Pressure Support Vent No Result Required. Sodium 146 H Potassium 4.0 Chloride 112 H Carbon Dioxide 23 Anion Gap 11 BUN 58.9 H Creatinine 2.5 H Est GFR (CKD-EPI)AfAm 20.21 Est GFR (CKD-EPI)NonAf 17.44 Random Glucose 151 H Lactic Acid Calcium 7.8 L Phosphorus Magnesium Total Bilirubin AST ALT Alkaline Phosphatase Ammonia Creatine Kinase Creatine Kinase Index CK-MB (CK-2) Troponin I B-Natriuretic Peptide Total Protein Albumin Vitamin B12 TSH Urine Color Yellow Urine Appearance Clear Urine pH 6.0 Ur Specific [place] 1.020 Urine Protein 2+ H Urine Glucose (UA) Negative Urine Ketones Negative Urine Blood 2+ H Urine Nitrite Negative Urine Bilirubin Negative Urine Urobilinogen 2.0 H Ur Leukocyte Esterase Trace Urine WBC (Auto) 7 Urine RBC (Auto) 6 Urine Casts (Auto) 6 U Epithel Cells (Auto) 10.1 Urine Bacteria (Auto) 95.8 Ur Random Creatinine Ur Random Sodium RPR Titer Influenza A (Rapid) Influenza B (Rapid) 06/01/19 06/01/19 06/01/19 04:07 04:07 04:07 WBC RBC Hgb Hct MCV MCH MCHC RDW Plt Count MPV Absolute Neuts (auto) Neutrophils % Neutrophils % (Manual) Band Neutrophils % Lymphocytes % Lymphocytes % (Manual) Monocytes % Monocytes % (Manual) Eosinophils % Eosinophils % (Manual) Basophils % Basophils % (Manual) Myelocytes % (Man) Promyelocytes % (Man) Blast Cells % (Manual) Nucleated RBC % Metamyelocytes Hypochromia Platelet Estimate Platelet Comment Polychromasia Poikilocytosis Anisocytosis Microcytosis Macrocytosis Target Cells PT with INR INR PTT (Actin FS) Anticoagulation Therapy Puncture Site ABG pH ABG pCO2 at Pt Temp ABG pO2 at Pt Temp ABG HCO3 ABG O2 Sat (Measured) ABG O2 Content ABG Base Excess Gaetano Test VBG pH POC VBG pCO2 POC VBG pO2 VBG HCO3 VBG O2 Sat (Makenna) VBG Base Excess Carboxyhemoglobin Methemoglobin O2 Delivery Device Oxygen Flow Rate Vent Mode Vent Rate Mechanical Rate Pressure Support Vent Sodium Potassium Chloride Carbon Dioxide Anion Gap BUN Creatinine Est GFR (CKD-EPI)AfAm Est GFR (CKD-EPI)NonAf Random Glucose Lactic Acid 2.4 H* Calcium Phosphorus Magnesium Total Bilirubin AST ALT Alkaline Phosphatase Ammonia Creatine Kinase 2540 H Creatine Kinase Index 0.1 CK-MB (CK-2) 4.5 H Troponin I < 0.02 B-Natriuretic Peptide Total Protein Albumin Vitamin B12 1987 H TSH Urine Color Urine Appearance Urine pH Ur Specific [place] Urine Protein Urine Glucose (UA) Urine Ketones Urine Blood Urine Nitrite Urine Bilirubin Urine Urobilinogen Ur Leukocyte Esterase Urine WBC (Auto) Urine RBC (Auto) Urine Casts (Auto) U Epithel Cells (Auto) Urine Bacteria (Auto) Ur Random Creatinine Ur Random Sodium RPR Titer Nonreactive Influenza A (Rapid) Influenza B (Rapid) 06/01/19 06/01/19 06/01/19 08:55 08:55 08:55 WBC RBC Hgb Hct MCV MCH MCHC RDW Plt Count MPV Absolute Neuts (auto) Neutrophils % Neutrophils % (Manual) Band Neutrophils % Lymphocytes % Lymphocytes % (Manual) Monocytes % Monocytes % (Manual) Eosinophils % Eosinophils % (Manual) Basophils % Basophils % (Manual) Myelocytes % (Man) Promyelocytes % (Man) Blast Cells % (Manual) Nucleated RBC % Metamyelocytes Hypochromia Platelet Estimate Platelet Comment Polychromasia Poikilocytosis Anisocytosis Microcytosis Macrocytosis Target Cells PT with INR INR PTT (Actin FS) Anticoagulation Therapy Puncture Site ABG pH ABG pCO2 at Pt Temp ABG pO2 at Pt Temp ABG HCO3 ABG O2 Sat (Measured) ABG O2 Content ABG Base Excess Gaetano Test VBG pH POC VBG pCO2 POC VBG pO2 VBG HCO3 VBG O2 Sat (Makenna) VBG Base Excess Carboxyhemoglobin Methemoglobin O2 Delivery Device Oxygen Flow Rate Vent Mode Vent Rate Mechanical Rate Pressure Support Vent Sodium Potassium Chloride Carbon Dioxide Anion Gap BUN Creatinine Est GFR (CKD-EPI)AfAm Est GFR (CKD-EPI)NonAf Random Glucose Lactic Acid Calcium Phosphorus Magnesium Total Bilirubin AST ALT Alkaline Phosphatase Ammonia < 10.00 L Creatine Kinase 2625 H Creatine Kinase Index 4.5 CK-MB (CK-2) 4.5 H Troponin I B-Natriuretic Peptide Total Protein Albumin Vitamin B12 Cancelled TSH Urine Color Urine Appearance Urine pH Ur Specific [place] Urine Protein Urine Glucose (UA) Urine Ketones Urine Blood Urine Nitrite Urine Bilirubin Urine Urobilinogen Ur Leukocyte Esterase Urine WBC (Auto) Urine RBC (Auto) Urine Casts (Auto) U Epithel Cells (Auto) Urine Bacteria (Auto) Ur Random Creatinine Ur Random Sodium RPR Titer Influenza A (Rapid) Influenza B (Rapid) 06/01/19 06/01/19 06/01/19 09:40 09:40 09:40 WBC 17.2 H RBC 4.87 Hgb 11.0 Hct 35.6 MCV 73.1 L MCH 22.5 L MCHC 30.8 L RDW 18.0 H Plt Count 128 L D MPV 9.9 Absolute Neuts (auto) 15.7 H Neutrophils % 91.2 H D Neutrophils % (Manual) 77.0 Band Neutrophils % 8.0 Lymphocytes % 5.7 L D Lymphocytes % (Manual) 4.0 L D Monocytes % 3.0 L Monocytes % (Manual) 2 L Eosinophils % 0.0 D Eosinophils % (Manual) 6.0 H D Basophils % 0.1 Basophils % (Manual) 0.0 Myelocytes % (Man) 2 D Promyelocytes % (Man) 0 Blast Cells % (Manual) 0 Nucleated RBC % 1 H Metamyelocytes 0 Hypochromia 1+ Platelet Estimate Decreased Platelet Comment Polychromasia 1+ Poikilocytosis 1+ Anisocytosis 1+ Microcytosis 1+ Macrocytosis 0 Target Cells 1+ PT with INR 13.70 H INR 1.16 H PTT (Actin FS) Anticoagulation Therapy Puncture Site ABG pH ABG pCO2 at Pt Temp ABG pO2 at Pt Temp ABG HCO3 ABG O2 Sat (Measured) ABG O2 Content ABG Base Excess Gaetano Test VBG pH POC VBG pCO2 POC VBG pO2 VBG HCO3 VBG O2 Sat (Makenna) VBG Base Excess Carboxyhemoglobin Methemoglobin O2 Delivery Device Oxygen Flow Rate Vent Mode Vent Rate Mechanical Rate Pressure Support Vent Sodium 144 Potassium 4.4 Chloride 112 H Carbon Dioxide 24 Anion Gap 8 BUN 47.4 H Creatinine 1.7 H Est GFR (CKD-EPI)AfAm 32.21 Est GFR (CKD-EPI)NonAf 27.80 Random Glucose 199 H Lactic Acid Calcium 7.7 L Phosphorus 4.0 Magnesium 2.5 H Total Bilirubin 0.8 AST 73 H ALT 23 Alkaline Phosphatase 104 Ammonia Creatine Kinase Creatine Kinase Index CK-MB (CK-2) Troponin I B-Natriuretic Peptide Total Protein 7.3 Albumin 2.5 L Vitamin B12 TSH 0.79 Urine Color Urine Appearance Urine pH Ur Specific [place] Urine Protein Urine Glucose (UA) Urine Ketones Urine Blood Urine Nitrite Urine Bilirubin Urine Urobilinogen Ur Leukocyte Esterase Urine WBC (Auto) Urine RBC (Auto) Urine Casts (Auto) U Epithel Cells (Auto) Urine Bacteria (Auto) Ur Random Creatinine Ur Random Sodium RPR Titer Influenza A (Rapid) Influenza B (Rapid) 06/01/19 11:07 WBC RBC Hgb Hct MCV MCH MCHC RDW Plt Count MPV Absolute Neuts (auto) Neutrophils % Neutrophils % (Manual) Band Neutrophils % Lymphocytes % Lymphocytes % (Manual) Monocytes % Monocytes % (Manual) Eosinophils % Eosinophils % (Manual) Basophils % Basophils % (Manual) Myelocytes % (Man) Promyelocytes % (Man) Blast Cells % (Manual) Nucleated RBC % Metamyelocytes Hypochromia Platelet Estimate Platelet Comment Polychromasia Poikilocytosis Anisocytosis Microcytosis Macrocytosis Target Cells PT with INR INR PTT (Actin FS) Anticoagulation Therapy No Result Required. Puncture Site Left radial ABG pH 7.35 ABG pCO2 at Pt Temp 41.8 ABG pO2 at Pt Temp 95.0 ABG HCO3 22.5 ABG O2 Sat (Measured) 96.6 ABG O2 Content 14.7 ABG Base Excess -2.4 L Gaetano Test Positive VBG pH POC VBG pCO2 POC VBG pO2 VBG HCO3 VBG O2 Sat (Makenna) VBG Base Excess Carboxyhemoglobin Methemoglobin O2 Delivery Device No Result Required. Oxygen Flow Rate Yes Vent Mode No Result Required. Vent Rate No Result Required. Mechanical Rate No Result Required. Pressure Support Vent No Result Required. Sodium Potassium Chloride Carbon Dioxide Anion Gap BUN Creatinine Est GFR (CKD-EPI)AfAm Est GFR (CKD-EPI)NonAf Random Glucose Lactic Acid Calcium Phosphorus Magnesium Total Bilirubin AST ALT Alkaline Phosphatase Ammonia Creatine Kinase Creatine Kinase Index CK-MB (CK-2) Troponin I B-Natriuretic Peptide Total Protein Albumin Vitamin B12 TSH Urine Color Urine Appearance Urine pH Ur Specific [place] Urine Protein Urine Glucose (UA) Urine Ketones Urine Blood Urine Nitrite Urine Bilirubin Urine Urobilinogen Ur Leukocyte Esterase Urine WBC (Auto) Urine RBC (Auto) Urine Casts (Auto) U Epithel Cells (Auto) Urine Bacteria (Auto) Ur Random Creatinine Ur Random Sodium RPR Titer Influenza A (Rapid) Influenza B (Rapid) Active Medications Generic Name Dose Route Start Last Admin Trade Name Freq PRN Reason Stop Dose Admin Albuterol/Ipratropium 1 amp 06/01/19 02:43 06/01/19 11:21 Duoneb - NEB 1 amp RTID VASYL Administration Chlorhexidine Gluconate 1 applic 06/01/19 22:00 Hibiclens For Decolonization - TP HS VASYL Heparin Sodium (Porcine) 5,000 unit 06/01/19 06:00 06/01/19 13:35 Heparin - SQ 5,000 unit TID VASYL Administration Azithromycin 500 mg in 250 mls @ 250 mls/hr 06/01/19 12:00 06/01/19 13:35 Zithromax 500mg Ivpb (Pre-Docked) IVPB 250 mls/hr DAILY VASYL Administration Piperacillin Sod/Tazobactam 50 mls @ 100 mls/hr 06/01/19 18:00 Sod 3.375 gm/ Dextrose IVPB Q8H-IV VASYL Protocol Lactated Ringer's 1,000 ml in 1,000 mls @ 100 mls/hr 06/01/19 12:00 06/01/19 12:06 Lactated Ringers Solution IV 100 mls/hr ASDIR VASYL Administration Methylprednisolone Sodium Succinate 40 mg 06/01/19 12:00 06/01/19 12:06 Solu-Medrol - IVPUSH Not Given DAILY VASYL Mupirocin 1 applic 06/01/19 10:00 06/01/19 12:05 Bactroban Ointment (For Decolonization) - NS 06/06/19 09:59 1 applic BID VASYL Administration Non-Formulary Medication 1 each 06/01/19 10:00 Rotigotine [Neupro] TD DAILY VASYL Pantoprazole Sodium 40 mg 06/01/19 10:00 06/01/19 09:51 Protonix Iv IVPUSH 40 mg DAILY VASYL Administration ASSESSMENT/PLAN: 79 y/o female with PMH of HTN, NIDDM, Parkinsons dementia who presents to the ED with AMS and fevers found to have B/L infiltrates #Neuro -somnolent but moderately arousable (touch) - Head CT was negative for acute intracranial pathology -Ammonia level was <10 #Cardiovascular history of HTN; Echo 05/2019: normal left ventricular systolic function EF 60-65% elevated filling pressure moderate MR, TR no pericardial effusion -currently normotensive -will hold diovan in light of JOS -monitor hemodynamics #Endocrine history of NIDDM -stable; diet -controlled #GI stable; no issues -currently NPO in light of mental status and aspiration risk abdomen u/s /06/01/2019 mild fatty infiltration of the liver vs hepatocellular disease multiple gallstones no evidence of cholecystitis dilated main pancreatic duct measuring 4mm left renal upper pole simple cyst measuring 4.4x 3.2cm #ID leukocytosis 17.9; with B/L infiltrates; initial lactic acid 2.3 -given vanc/zosyn x1 -c/w zosyn to cover for possible aspiration -repeat lactic acid -ID consult -f/u blood cx, sputum cx, urine for legionella -ESBL in the past. #Pulm B/L infiltrates on CXR -c/w zosyn (renally dosed ) CXR (infiltrates and congestion) -ABG: PCO2 41.9, pH 7.35, PO2 96.6 -f/u sputum cx and urine for legionella -monitor o2 saturations -duonebs PRN -solumedrol 40 daily #Renal patients Cr was 2.6 on arrival with CK >3000; baseline around 0.8-0.9 CK this a.m -likely pre-renal; F/U urine NA, urien Cr and calculate FeNA -continue trending CK -renal u/s 06/01/2019 right and left kidney measured 9 and 10.5 cm respectively. Partial exophytic left renal upper pole simple cyst both kidneys are unremarkable F/E/N LR @100 ml/hr monitor electrolytes NPO until improvement in mental status dvt ppx: heparin sq GI ppx: PPI code status: FULL CODE Visit type - Emergency Visit Emergency Visit: Yes ED Registration Date: 06/01/19 Care time: The patient presented to the Emergency Department on the above date and was hospitalized for further evaluation of their emergent condition. - New Patient This patient is new to me today: No - Critical Care Critical Care patient: No - Discharge Referral Referred to [facility] Med P.C.: No ATTENDING PHYSICIAN STATEMENT I saw and evaluated the patient. I reviewed the resident's note and discussed the case with the resident. I agree with the resident's findings and plan as documented. SUBJECTIVE: OBJECTIVE: ASSESSMENT AND PLAN:
--- NOTE | 2019-06-01 14:59 | PN ---
Physical Exam: SUBJECTIVE: Patient seen and examined. She is minimally responsive. OBJECTIVE: Vital Signs Period Temp Pulse Resp BP Sys/Campbell Pulse Ox Last 24 Hr 97.5 F-99.7 F 59-100 15-24 109-143/68-83 86-100 GENERAL: Patient responds to noxious stimuli HEAD: Normal with no signs of trauma. EYES: PERRL, conjunctiva clear. ENT: Ears normal, nares patent, moist mucous membranes. NECK: Trachea midline LUNGS: Left expiratory wheezing HEART: Regular rate and rhythm, no murmur ABDOMEN: Soft, nondistended, normoactive bowel sounds EXTREMITIES: Warm, well-perfused, trace edema. NEUROLOGICAL: Cranial nerves II through XII grossly intact. PSYCH: Normal mood, normal affect. SKIN: Warm, dry, normal turgor Laboratory Results - last 24 hr 06/01/19 06/01/19 06/01/19 00:18 00:18 00:18 WBC 17.9 H RBC 5.22 H Hgb 11.9 Hct 37.7 MCV 72.3 L MCH 22.8 L MCHC 31.5 L RDW 18.0 H Plt Count 165 D MPV 10.5 D Absolute Neuts (auto) 12.0 H Neutrophils % 66.8 Neutrophils % (Manual) Band Neutrophils % Lymphocytes % 27.9 Lymphocytes % (Manual) Monocytes % 5.0 Monocytes % (Manual) Eosinophils % 0.1 D Eosinophils % (Manual) Basophils % 0.2 Basophils % (Manual) Myelocytes % (Man) Promyelocytes % (Man) Blast Cells % (Manual) Nucleated RBC % 0 Metamyelocytes Hypochromia Platelet Estimate Adequate Platelet Comment No clumping noted Polychromasia Poikilocytosis Anisocytosis Microcytosis Macrocytosis Target Cells PT with INR 13.30 H INR 1.13 H PTT (Actin FS) 30.0 Anticoagulation Therapy Puncture Site ABG pH ABG pCO2 at Pt Temp ABG pO2 at Pt Temp ABG HCO3 ABG O2 Sat (Measured) ABG O2 Content ABG Base Excess Gaetano Test VBG pH POC VBG pCO2 POC VBG pO2 VBG HCO3 VBG O2 Sat (Makenna) VBG Base Excess Carboxyhemoglobin Methemoglobin O2 Delivery Device Oxygen Flow Rate Vent Mode Vent Rate Mechanical Rate Pressure Support Vent Sodium Cancelled Potassium Cancelled Chloride Cancelled Carbon Dioxide Cancelled Anion Gap Cancelled BUN Cancelled Creatinine Cancelled Est GFR (CKD-EPI)AfAm Cancelled Est GFR (CKD-EPI)NonAf Cancelled Random Glucose Cancelled Lactic Acid Calcium Cancelled Phosphorus Magnesium Total Bilirubin Cancelled AST Cancelled ALT Cancelled Alkaline Phosphatase Cancelled Ammonia Creatine Kinase Creatine Kinase Index CK-MB (CK-2) Troponin I B-Natriuretic Peptide Total Protein Cancelled Albumin Cancelled Vitamin B12 TSH Urine Color Urine Appearance Urine pH Ur Specific [place] Urine Protein Urine Glucose (UA) Urine Ketones Urine Blood Urine Nitrite Urine Bilirubin Urine Urobilinogen Ur Leukocyte Esterase Urine WBC (Auto) Urine RBC (Auto) Urine Casts (Auto) U Epithel Cells (Auto) Urine Bacteria (Auto) Ur Random Creatinine Ur Random Sodium RPR Titer Influenza A (Rapid) Influenza B (Rapid) 06/01/19 06/01/19 06/01/19 00:18 00:18 00:18 WBC RBC Hgb Hct MCV MCH MCHC RDW Plt Count MPV Absolute Neuts (auto) Neutrophils % Neutrophils % (Manual) Band Neutrophils % Lymphocytes % Lymphocytes % (Manual) Monocytes % Monocytes % (Manual) Eosinophils % Eosinophils % (Manual) Basophils % Basophils % (Manual) Myelocytes % (Man) Promyelocytes % (Man) Blast Cells % (Manual) Nucleated RBC % Metamyelocytes Hypochromia Platelet Estimate Platelet Comment Polychromasia Poikilocytosis Anisocytosis Microcytosis Macrocytosis Target Cells PT with INR INR PTT (Actin FS) Anticoagulation Therapy Puncture Site ABG pH ABG pCO2 at Pt Temp ABG pO2 at Pt Temp ABG HCO3 ABG O2 Sat (Measured) ABG O2 Content ABG Base Excess Gaetano Test VBG pH POC VBG pCO2 POC VBG pO2 VBG HCO3 VBG O2 Sat (Makenna) VBG Base Excess Carboxyhemoglobin Methemoglobin O2 Delivery Device Oxygen Flow Rate Vent Mode Vent Rate Mechanical Rate Pressure Support Vent Sodium 142 Potassium 5.8 H Chloride 109 H Carbon Dioxide 24 Anion Gap 10 BUN 62.8 H Creatinine 2.6 H Est GFR (CKD-EPI)AfAm 19.27 Est GFR (CKD-EPI)NonAf 16.63 Random Glucose 129 H Lactic Acid 2.3 H* Calcium 8.4 L Phosphorus Magnesium 2.4 Total Bilirubin 1.3 H AST 115 H ALT 18 Alkaline Phosphatase 120 H Ammonia Creatine Kinase 3050 H Creatine Kinase Index 0.1 CK-MB (CK-2) 4.6 H Troponin I < 0.02 B-Natriuretic Peptide 406.5 Cancelled Total Protein 8.4 H Albumin 3.0 L Vitamin B12 TSH Urine Color Urine Appearance Urine pH Ur Specific [place] Urine Protein Urine Glucose (UA) Urine Ketones Urine Blood Urine Nitrite Urine Bilirubin Urine Urobilinogen Ur Leukocyte Esterase Urine WBC (Auto) Urine RBC (Auto) Urine Casts (Auto) U Epithel Cells (Auto) Urine Bacteria (Auto) Ur Random Creatinine Ur Random Sodium RPR Titer Influenza A (Rapid) Influenza B (Rapid) 06/01/19 06/01/19 06/01/19 00:18 00:20 01:00 WBC RBC Hgb Hct MCV MCH MCHC RDW Plt Count MPV Absolute Neuts (auto) Neutrophils % Neutrophils % (Manual) Band Neutrophils % Lymphocytes % Lymphocytes % (Manual) Monocytes % Monocytes % (Manual) Eosinophils % Eosinophils % (Manual) Basophils % Basophils % (Manual) Myelocytes % (Man) Promyelocytes % (Man) Blast Cells % (Manual) Nucleated RBC % Metamyelocytes Hypochromia Platelet Estimate Platelet Comment Polychromasia Poikilocytosis Anisocytosis Microcytosis Macrocytosis Target Cells PT with INR INR PTT (Actin FS) Anticoagulation Therapy Puncture Site ABG pH ABG pCO2 at Pt Temp ABG pO2 at Pt Temp ABG HCO3 ABG O2 Sat (Measured) ABG O2 Content ABG Base Excess Gaetano Test VBG pH 7.28 L POC VBG pCO2 53.0 H POC VBG pO2 < 49 H VBG HCO3 24.1 VBG O2 Sat (Makenna) 49.2 L VBG Base Excess -2.6 L Carboxyhemoglobin Methemoglobin O2 Delivery Device Oxygen Flow Rate Vent Mode Vent Rate Mechanical Rate Pressure Support Vent Sodium Potassium Chloride Carbon Dioxide Anion Gap BUN Creatinine Est GFR (CKD-EPI)AfAm Est GFR (CKD-EPI)NonAf Random Glucose Lactic Acid Calcium Phosphorus Magnesium Total Bilirubin AST ALT Alkaline Phosphatase Ammonia Creatine Kinase Creatine Kinase Index CK-MB (CK-2) Troponin I B-Natriuretic Peptide Total Protein Albumin Vitamin B12 TSH Urine Color Urine Appearance Urine pH Ur Specific [place] Urine Protein Urine Glucose (UA) Urine Ketones Urine Blood Urine Nitrite Urine Bilirubin Urine Urobilinogen Ur Leukocyte Esterase Urine WBC (Auto) Urine RBC (Auto) Urine Casts (Auto) U Epithel Cells (Auto) Urine Bacteria (Auto) Ur Random Creatinine 119.0 Ur Random Sodium 36 L RPR Titer Influenza A (Rapid) Negative Influenza B (Rapid) Negative 06/01/19 06/01/19 06/01/19 01:20 02:05 02:15 WBC RBC Hgb Hct MCV MCH MCHC RDW Plt Count MPV Absolute Neuts (auto) Neutrophils % Neutrophils % (Manual) Band Neutrophils % Lymphocytes % Lymphocytes % (Manual) Monocytes % Monocytes % (Manual) Eosinophils % Eosinophils % (Manual) Basophils % Basophils % (Manual) Myelocytes % (Man) Promyelocytes % (Man) Blast Cells % (Manual) Nucleated RBC % Metamyelocytes Hypochromia Platelet Estimate Platelet Comment Polychromasia Poikilocytosis Anisocytosis Microcytosis Macrocytosis Target Cells PT with INR INR PTT (Actin FS) Anticoagulation Therapy No Result Required. Puncture Site Right radial ABG pH 7.31 L ABG pCO2 at Pt Temp 44.5 ABG pO2 at Pt Temp 88.2 ABG HCO3 21.9 L ABG O2 Sat (Measured) 95.2 ABG O2 Content 13.8 ABG Base Excess -3.7 L Gaetano Test Positive VBG pH POC VBG pCO2 POC VBG pO2 VBG HCO3 VBG O2 Sat (Makenna) VBG Base Excess Carboxyhemoglobin 1.0 Methemoglobin < 1.0 O2 Delivery Device N/c Oxygen Flow Rate 4.0 lpm Vent Mode No Result Required. Vent Rate No Result Required. Mechanical Rate No Result Required. Pressure Support Vent No Result Required. Sodium 146 H Potassium 4.0 Chloride 112 H Carbon Dioxide 23 Anion Gap 11 BUN 58.9 H Creatinine 2.5 H Est GFR (CKD-EPI)AfAm 20.21 Est GFR (CKD-EPI)NonAf 17.44 Random Glucose 151 H Lactic Acid Calcium 7.8 L Phosphorus Magnesium Total Bilirubin AST ALT Alkaline Phosphatase Ammonia Creatine Kinase Creatine Kinase Index CK-MB (CK-2) Troponin I B-Natriuretic Peptide Total Protein Albumin Vitamin B12 TSH Urine Color Yellow Urine Appearance Clear Urine pH 6.0 Ur Specific [place] 1.020 Urine Protein 2+ H Urine Glucose (UA) Negative Urine Ketones Negative Urine Blood 2+ H Urine Nitrite Negative Urine Bilirubin Negative Urine Urobilinogen 2.0 H Ur Leukocyte Esterase Trace Urine WBC (Auto) 7 Urine RBC (Auto) 6 Urine Casts (Auto) 6 U Epithel Cells (Auto) 10.1 Urine Bacteria (Auto) 95.8 Ur Random Creatinine Ur Random Sodium RPR Titer Influenza A (Rapid) Influenza B (Rapid) 06/01/19 06/01/19 06/01/19 04:07 04:07 04:07 WBC RBC Hgb Hct MCV MCH MCHC RDW Plt Count MPV Absolute Neuts (auto) Neutrophils % Neutrophils % (Manual) Band Neutrophils % Lymphocytes % Lymphocytes % (Manual) Monocytes % Monocytes % (Manual) Eosinophils % Eosinophils % (Manual) Basophils % Basophils % (Manual) Myelocytes % (Man) Promyelocytes % (Man) Blast Cells % (Manual) Nucleated RBC % Metamyelocytes Hypochromia Platelet Estimate Platelet Comment Polychromasia Poikilocytosis Anisocytosis Microcytosis Macrocytosis Target Cells PT with INR INR PTT (Actin FS) Anticoagulation Therapy Puncture Site ABG pH ABG pCO2 at Pt Temp ABG pO2 at Pt Temp ABG HCO3 ABG O2 Sat (Measured) ABG O2 Content ABG Base Excess Gaetano Test VBG pH POC VBG pCO2 POC VBG pO2 VBG HCO3 VBG O2 Sat (Makenna) VBG Base Excess Carboxyhemoglobin Methemoglobin O2 Delivery Device Oxygen Flow Rate Vent Mode Vent Rate Mechanical Rate Pressure Support Vent Sodium Potassium Chloride Carbon Dioxide Anion Gap BUN Creatinine Est GFR (CKD-EPI)AfAm Est GFR (CKD-EPI)NonAf Random Glucose Lactic Acid 2.4 H* Calcium Phosphorus Magnesium Total Bilirubin AST ALT Alkaline Phosphatase Ammonia Creatine Kinase 2540 H Creatine Kinase Index 0.1 CK-MB (CK-2) 4.5 H Troponin I < 0.02 B-Natriuretic Peptide Total Protein Albumin Vitamin B12 1987 H TSH Urine Color Urine Appearance Urine pH Ur Specific [place] Urine Protein Urine Glucose (UA) Urine Ketones Urine Blood Urine Nitrite Urine Bilirubin Urine Urobilinogen Ur Leukocyte Esterase Urine WBC (Auto) Urine RBC (Auto) Urine Casts (Auto) U Epithel Cells (Auto) Urine Bacteria (Auto) Ur Random Creatinine Ur Random Sodium RPR Titer Nonreactive Influenza A (Rapid) Influenza B (Rapid) 06/01/19 06/01/19 06/01/19 08:55 08:55 08:55 WBC RBC Hgb Hct MCV MCH MCHC RDW Plt Count MPV Absolute Neuts (auto) Neutrophils % Neutrophils % (Manual) Band Neutrophils % Lymphocytes % Lymphocytes % (Manual) Monocytes % Monocytes % (Manual) Eosinophils % Eosinophils % (Manual) Basophils % Basophils % (Manual) Myelocytes % (Man) Promyelocytes % (Man) Blast Cells % (Manual) Nucleated RBC % Metamyelocytes Hypochromia Platelet Estimate Platelet Comment Polychromasia Poikilocytosis Anisocytosis Microcytosis Macrocytosis Target Cells PT with INR INR PTT (Actin FS) Anticoagulation Therapy Puncture Site ABG pH ABG pCO2 at Pt Temp ABG pO2 at Pt Temp ABG HCO3 ABG O2 Sat (Measured) ABG O2 Content ABG Base Excess Gaetano Test VBG pH POC VBG pCO2 POC VBG pO2 VBG HCO3 VBG O2 Sat (Makenna) VBG Base Excess Carboxyhemoglobin Methemoglobin O2 Delivery Device Oxygen Flow Rate Vent Mode Vent Rate Mechanical Rate Pressure Support Vent Sodium Potassium Chloride Carbon Dioxide Anion Gap BUN Creatinine Est GFR (CKD-EPI)AfAm Est GFR (CKD-EPI)NonAf Random Glucose Lactic Acid Calcium Phosphorus Magnesium Total Bilirubin AST ALT Alkaline Phosphatase Ammonia < 10.00 L Creatine Kinase 2625 H Creatine Kinase Index 4.5 CK-MB (CK-2) 4.5 H Troponin I B-Natriuretic Peptide Total Protein Albumin Vitamin B12 Cancelled TSH Urine Color Urine Appearance Urine pH Ur Specific [place] Urine Protein Urine Glucose (UA) Urine Ketones Urine Blood Urine Nitrite Urine Bilirubin Urine Urobilinogen Ur Leukocyte Esterase Urine WBC (Auto) Urine RBC (Auto) Urine Casts (Auto) U Epithel Cells (Auto) Urine Bacteria (Auto) Ur Random Creatinine Ur Random Sodium RPR Titer Influenza A (Rapid) Influenza B (Rapid) 06/01/19 06/01/19 06/01/19 09:40 09:40 09:40 WBC 17.2 H RBC 4.87 Hgb 11.0 Hct 35.6 MCV 73.1 L MCH 22.5 L MCHC 30.8 L RDW 18.0 H Plt Count 128 L D MPV 9.9 Absolute Neuts (auto) 15.7 H Neutrophils % 91.2 H D Neutrophils % (Manual) 77.0 Band Neutrophils % 8.0 Lymphocytes % 5.7 L D Lymphocytes % (Manual) 4.0 L D Monocytes % 3.0 L Monocytes % (Manual) 2 L Eosinophils % 0.0 D Eosinophils % (Manual) 6.0 H D Basophils % 0.1 Basophils % (Manual) 0.0 Myelocytes % (Man) 2 D Promyelocytes % (Man) 0 Blast Cells % (Manual) 0 Nucleated RBC % 1 H Metamyelocytes 0 Hypochromia 1+ Platelet Estimate Decreased Platelet Comment Polychromasia 1+ Poikilocytosis 1+ Anisocytosis 1+ Microcytosis 1+ Macrocytosis 0 Target Cells 1+ PT with INR 13.70 H INR 1.16 H PTT (Actin FS) Anticoagulation Therapy Puncture Site ABG pH ABG pCO2 at Pt Temp ABG pO2 at Pt Temp ABG HCO3 ABG O2 Sat (Measured) ABG O2 Content ABG Base Excess Gaetano Test VBG pH POC VBG pCO2 POC VBG pO2 VBG HCO3 VBG O2 Sat (Makenna) VBG Base Excess Carboxyhemoglobin Methemoglobin O2 Delivery Device Oxygen Flow Rate Vent Mode Vent Rate Mechanical Rate Pressure Support Vent Sodium 144 Potassium 4.4 Chloride 112 H Carbon Dioxide 24 Anion Gap 8 BUN 47.4 H Creatinine 1.7 H Est GFR (CKD-EPI)AfAm 32.21 Est GFR (CKD-EPI)NonAf 27.80 Random Glucose 199 H Lactic Acid Calcium 7.7 L Phosphorus 4.0 Magnesium 2.5 H Total Bilirubin 0.8 AST 73 H ALT 23 Alkaline Phosphatase 104 Ammonia Creatine Kinase Creatine Kinase Index CK-MB (CK-2) Troponin I B-Natriuretic Peptide Total Protein 7.3 Albumin 2.5 L Vitamin B12 TSH 0.79 Urine Color Urine Appearance Urine pH Ur Specific [place] Urine Protein Urine Glucose (UA) Urine Ketones Urine Blood Urine Nitrite Urine Bilirubin Urine Urobilinogen Ur Leukocyte Esterase Urine WBC (Auto) Urine RBC (Auto) Urine Casts (Auto) U Epithel Cells (Auto) Urine Bacteria (Auto) Ur Random Creatinine Ur Random Sodium RPR Titer Influenza A (Rapid) Influenza B (Rapid) 06/01/19 11:07 WBC RBC Hgb Hct MCV MCH MCHC RDW Plt Count MPV Absolute Neuts (auto) Neutrophils % Neutrophils % (Manual) Band Neutrophils % Lymphocytes % Lymphocytes % (Manual) Monocytes % Monocytes % (Manual) Eosinophils % Eosinophils % (Manual) Basophils % Basophils % (Manual) Myelocytes % (Man) Promyelocytes % (Man) Blast Cells % (Manual) Nucleated RBC % Metamyelocytes Hypochromia Platelet Estimate Platelet Comment Polychromasia Poikilocytosis Anisocytosis Microcytosis Macrocytosis Target Cells PT with INR INR PTT (Actin FS) Anticoagulation Therapy No Result Required. Puncture Site Left radial ABG pH 7.35 ABG pCO2 at Pt Temp 41.8 ABG pO2 at Pt Temp 95.0 ABG HCO3 22.5 ABG O2 Sat (Measured) 96.6 ABG O2 Content 14.7 ABG Base Excess -2.4 L Gaetano Test Positive VBG pH POC VBG pCO2 POC VBG pO2 VBG HCO3 VBG O2 Sat (Makenna) VBG Base Excess Carboxyhemoglobin Methemoglobin O2 Delivery Device No Result Required. Oxygen Flow Rate Yes Vent Mode No Result Required. Vent Rate No Result Required. Mechanical Rate No Result Required. Pressure Support Vent No Result Required. Sodium Potassium Chloride Carbon Dioxide Anion Gap BUN Creatinine Est GFR (CKD-EPI)AfAm Est GFR (CKD-EPI)NonAf Random Glucose Lactic Acid Calcium Phosphorus Magnesium Total Bilirubin AST ALT Alkaline Phosphatase Ammonia Creatine Kinase Creatine Kinase Index CK-MB (CK-2) Troponin I B-Natriuretic Peptide Total Protein Albumin Vitamin B12 TSH Urine Color Urine Appearance Urine pH Ur Specific [place] Urine Protein Urine Glucose (UA) Urine Ketones Urine Blood Urine Nitrite Urine Bilirubin Urine Urobilinogen Ur Leukocyte Esterase Urine WBC (Auto) Urine RBC (Auto) Urine Casts (Auto) U Epithel Cells (Auto) Urine Bacteria (Auto) Ur Random Creatinine Ur Random Sodium RPR Titer Influenza A (Rapid) Influenza B (Rapid) Active Medications Generic Name Dose Route Start Last Admin Trade Name Freq PRN Reason Stop Dose Admin Albuterol/Ipratropium 1 amp 06/01/19 02:43 06/01/19 11:21 Duoneb - NEB 1 amp RTID VASYL Administration Chlorhexidine Gluconate 1 applic 06/01/19 22:00 Hibiclens For Decolonization - TP HS VASYL Heparin Sodium (Porcine) 5,000 unit 06/01/19 06:00 06/01/19 13:35 Heparin - SQ 5,000 unit TID VASYL Administration Azithromycin 500 mg in 250 mls @ 250 mls/hr 06/01/19 12:00 06/01/19 13:35 Zithromax 500mg Ivpb (Pre-Docked) IVPB 250 mls/hr DAILY VASYL Administration Piperacillin Sod/Tazobactam 50 mls @ 100 mls/hr 06/01/19 18:00 Sod 3.375 gm/ Dextrose IVPB Q8H-IV VASYL Protocol Lactated Ringer's 1,000 ml in 1,000 mls @ 100 mls/hr 06/01/19 12:00 06/01/19 12:06 Lactated Ringers Solution IV 100 mls/hr ASDIR VASYL Administration Methylprednisolone Sodium Succinate 40 mg 06/01/19 12:00 06/01/19 12:06 Solu-Medrol - IVPUSH Not Given DAILY VASYL Mupirocin 1 applic 06/01/19 10:00 06/01/19 12:05 Bactroban Ointment (For Decolonization) - NS 06/06/19 09:59 1 applic BID VASYL Administration Non-Formulary Medication 1 each 06/01/19 10:00 Rotigotine [Neupro] TD DAILY VASYL Pantoprazole Sodium 40 mg 06/01/19 10:00 06/01/19 09:51 Protonix Iv IVPUSH 40 mg DAILY VASYL Administration ASSESSMENT/PLAN: Ms. Prescott is an 79y/o female with Parkinson's and dementia who presents with AMS and cough x 4 days. Pt was hypoxic to the 80s at ED presentation. #acute hypoxic respiratory failure possibly 2/2 PNA #JOS #transaminitis #leukocytosis -CXR today shows b/l infiltrates -CT head negative for acute processes -small improvement in leukocytosis -flu negative -LA 2.3-->2.4 -Cr 2.6-->1.5 -duonebs TID scheduled -solu-medrol 40mg IV daily -zithromax 500mg IV daily day 1 -zosyn 3.375g Q8H -LR 100mL/hr -ID following -nephro following -urine cx pending -blood cx pending -echo ordered -trend lactic acid DVT ppx heparin GI ppx protonix FEN LR 100mL/hr monitor Cr NPO Visit type - Emergency Visit Emergency Visit: Yes ED Registration Date: 06/01/19 Care time: The patient presented to the Emergency Department on the above date and was hospitalized for further evaluation of their emergent condition. - New Patient This patient is new to me today: Yes Date on this admission: 06/01/19 - Critical Care Critical Care patient: Yes Total Critical Care Time (in minutes): 35 Critical Care Statement: The care of this patient involved high complexity decision making to prevent further life threatening deterioration of the patient 's condition and/or to evaluate & treat vital organ system(s) failure or risk of failure. - Discharge Referral Referred to [facility] No ATTENDING PHYSICIAN STATEMENT I saw and evaluated the patient. I reviewed the resident's note and discussed the case with the resident. I agree with the resident's findings and plan as documented. SUBJECTIVE: OBJECTIVE: ASSESSMENT AND PLAN:
--- NOTE | 2019-06-01 15:42 | ECHO ---
Version: 1 Name: VANDANA NATARAJAN Exam: Adult Echocardiogram Study Date: 06/01/2019, 2:25 PM Age: 79 Years MMode/2D Measurements & Calculations IVSd: 0.89 cm LVIDs: 3.2 cm LVIDd: 5.3 cm LVPWd: 1.01 cm ACS: 1.98 cm Ao root diam: 3.5 cm LA dimension: 3.8 cm Doppler Measurements & Calculations MV E max zana: 66.9 cm/sec Med E/e': 19.7 MV A max zana: 88.6 cm/sec Med Peak E' Zana: 3.4 cm/sec MV E/A: 0.75 Lat E/e': 9.0 Lat Peak E' Zana: 7.5 cm/sec MR max P.4 mmHg Ao max P.2 mmHg Ao mean P.7 mmHg Ao V2 max: 102.5 cm/sec PI end-d zana: 151.3 cm/sec TR max zana: 281.5 cm/sec TR max P.7 mmHg Procedure A complete two-dimensional transthoracic echocardiogram was performed (2D, M-mode, Doppler and color flow Doppler). Technically limited study. The patient was in normal sinus rhythm during the exam. Left Ventricle The left ventricle is normal in size. Left ventricular systolic function is normal. Ejection Fractio n = 60- 65%. LV diastology reveals impaired relaxation with elevated filling pressure (E/E' 18). The left ve ntricular wall motion is normal. Right Ventricle The right ventricle is not well visualized. Atria The left atrial size is normal. Right atrial size is normal. Mitral Valve The mitral valve leaflets appear normal. There is no evidence of stenosis, fluttering, or prolapse. There is mild to moderate mitral regurgitation. Tricuspid Valve The tricuspid valve is normal in structure and function. There is mild to moderate tricuspid regurgi tation. Aortic Valve The aortic valve is normal in structure and function. No aortic regurgitation is present. Pulmonic Valve The pulmonic valve is not well visualized. Great Vessels The aortic root is normal size. Pericardium/Pleura There is no pericardial effusion. Summary Statements Technically limited study The left ventricle is normal in size. Left ventricular systolic function is normal. Ejection Fraction = 60-65%. The left ventricular wall motion is normal. LV diastology reveals impaired relaxation with elevated filling pressure (E/E' 18) The right ventricle is not well visualized. The left atrial size is normal. Right atrial size is normal. There is mild to moderate mitral regurgitation. There is mild to moderate tricuspid regurgitation. There is no pericardial effusion. Jonathon Hanna MD 06/01/2019, 3:41 PM Ordering Physician: KLAUDIA LOBO Referring Physician: KLAUDIA LOBO Performed By: Carito Hollins
--- NOTE | 2019-06-01 17:04 | CON.CARD ---
Consult Consult Specialty:: Cardiology Referred by:: Medicine Reason for Consultation:: CHF - History of Present Illness Chief Complaint: alt mental status History of Present Illness: 79F h/o HTN, DM, Parkinson's p/w alt mental status, fevers. Treated in ICU for sepsis, PNA. Unable to obtain history from pt due to altered mental status, per family member cough is improving but mental status not improving. Receiving IVF for rhabdo. 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 No: Seizure, Syncope Cardio/Vascular: Yes: HTN, Hyperlipdemia Musculoskeletal: Yes: Other (osteoporosis) Endocrine: Yes: Diabetes Mellitus - Past Surgical History Past Surgical History: Yes: Hysterectomy, Joint Replacement (Bilateral knee surgery) - Alcohol/Substance Use Hx Alcohol Use: No - Smoking History Smoking history: Never smoked Have you smoked in the past 12 months: No - Social History Usual Living Arrangement: With Significant Other Home Medications - Allergies Allergies/Adverse Reactions: Allergies Allergy/AdvReac Type Severity Reaction Status Date / Time No Known Allergies Allergy Verified 05/31/19 23:41 - Home Medications Home Medications: Ambulatory Orders Ca/D3/Mag Ox/Zinc/Taker Away/Ketan/Bor [Calcium 600-D3 Plus Caplet] 1 each PO HS Carbidopa/Levodopa [Carbidopa-Levo ER 50-200 Tab] 1 each PO TID 04/13/18 Aspirin 81 mg PO DAILY 06/01/19 Melatonin 5 mg PO HS 06/01/19 Olanzapine [Zyprexa -] 7.5 mg PO DAILY 06/01/19 Omeprazole 20 mg PO DAILY 06/01/19 Rivastigmine [Exelon Patch 4.6MG/24 Hours] 1 each TD DAILY 06/01/19 Rotigotine [Neupro] 1 each TD DAILY 06/01/19 Family Medical History Family History: Unable to Obtain Review of Systems Unable to obtain ROS, reason: altered mental status Vital Signs: Vital Signs Temperature 98.0 F 06/01/19 14:00 Pulse Rate 81 06/01/19 14:00 Respiratory Rate 17 06/01/19 14:00 Blood Pressure 143/83 06/01/19 14:00 O2 Sat by Pulse Oximetry (%) 100 06/01/19 09:00 Constitutional: Yes: No Distress, Calm Eyes: Yes: Conjunctiva Clear, EOM Intact HENT: Yes: Atraumatic, Normocephalic Neck: Yes: Supple, Trachea Midline Respiratory: Yes: Regular, Diminished Gastrointestinal: Yes: Normal Bowel Sounds, Soft Cardiovascular: Yes: Regular Rate and Rhythm JVD: No Extremities: No: Cold Edema: No Integumentary: No: Jaundice Neurological: Yes: Lethargy Psychiatric: No: Agitated - Other Data Labs, Other Data: CBC, BMP 06/01/19 09:40 06/01/19 09:40 INR, PTT INR 1.16 (0.83-1.09) H 06/01/19 09:40 Troponin, BNP 06/01/19 06/01/19 06/01/19 00:18 00:18 04:07 Troponin I < 0.02 < 0.02 B-Natriuretic Peptide 406.5 Cancelled Troponin, BNP 06/01/19 06/01/19 06/01/19 00:18 00:18 04:07 Troponin I < 0.02 < 0.02 B-Natriuretic Peptide 406.5 Cancelled Assessment/Plan EKG sinus tachycardia, RBBB, LAFB, LVH echo 05/2019 nl LV/RV function, impaired relaxation, elevated filling pressures, RV not well visualized, mild to mod MR, mild mod TR CXR: kenyon infiltrates and congestive changes predominantly RUL and L base tele: sinus PNA, sepsis - manage per critical care, ID - findings on CXR more suggestive of PNA, although congestive changes possible in setting of receiving IVF - nl LV function on echo - monitor volume status while receiving IVF, hold lasix at this point HTN - holding diovan in setting of JOS DM - manage per primary dementia, parkinson's - manage per primary JOS, rhabdo - renal following - CK downtrending with IVF - Cr improving - monitor volume status while receiving IVF
[2019-06-01] MEDS ORDERED: PIPERACILLIN/TAZOBACTAM 3.375 GM VIAL IVPB ONE (18:02)
[2019-06-01] MEDS ORDERED: ACETAMINOPHEN 1000 MG/100 ML VIAL (NON FORMULARY) IVPB ONE (20:17)
--- NOTE | 2019-06-01 21:08 | PN ---
Teaching Attending Note Name of Resident: Pamela Wolf ATTENDING PHYSICIAN STATEMENT I saw and evaluated the patient. I reviewed the resident's note and discussed the case with the resident. I agree with the resident's findings and plan as documented. SUBJECTIVE: Patient is in ICU unresponsive, but stable hemodynamically OBJECTIVE: Vital Signs Temperature 97.6 F 06/01/19 17:58 Pulse Rate 64 06/01/19 20:00 Respiratory Rate 23 H 06/01/19 20:00 Blood Pressure 123/69 06/01/19 20:00 O2 Sat by Pulse Oximetry (%) 100 06/01/19 09:00 GENERAL: The patient is unresponsive , does not follow any commands. in no acute distress. HEAD: Normal with no signs of trauma. EYES: PERRL, extraocular movements intact, sclera anicteric, conjunctiva clear. ENT: Ears normal, oropharynx clear without exudates, moist mucous membranes. NECK: Trachea midline, full range of motion, supple. LUNGS: decreased Breath sounds bl, no wheezes, no crackles, no accessory muscle use. HEART: Regular rate and rhythm, S1, S2 without murmur, rub or gallop. ABDOMEN: Soft, nontender, nondistended, normoactive bowel sounds, no guarding, no rebound, no hepatosplenomegaly, no masses. EXTREMITIES: 2+ pulses, warm, well-perfused, no edema. NEUROLOGICAL: Cranial nerves II through XII grossly intact. gait not observed. PSYCH: Normal mood, normal affect. SKIN: Warm, dry, normal turgor, no rashes or lesions noted WBC 17.2 K/mm3 (4.0-10.0) H 06/01/19 09:40 RBC 4.87 M/mm3 (3.60-5.2) 06/01/19 09:40 Hgb 11.0 GM/dL (10.7-15.3) 06/01/19 09:40 Hct 35.6 % (32.4-45.2) 06/01/19 09:40 MCV 73.1 fl (80-96) L 06/01/19 09:40 MCHC 30.8 g/dl (32.0-36.0) L 06/01/19 09:40 RDW 18.0 % (11.6-15.6) H 06/01/19 09:40 Plt Count 128 K/MM3 (134-434) L D 06/01/19 09:40 MPV 9.9 fl (7.5-11.1) 06/01/19 09:40 CMP Sodium 144 mmol/L (136-145) 06/01/19 09:40 Potassium 4.4 mmol/L (3.5-5.1) 06/01/19 09:40 Chloride 112 mmol/L (98-107) H 06/01/19 09:40 Carbon Dioxide 24 mmol/L (21-32) 06/01/19 09:40 Anion Gap 8 MMOL/L (8-16) 06/01/19 09:40 BUN 47.4 mg/dL (7-18) H 06/01/19 09:40 Creatinine 1.7 mg/dL (0.55-1.3) H 06/01/19 09:40 Random Glucose 199 mg/dL (74-106) H 06/01/19 09:40 Calcium 7.7 mg/dL (8.5-10.1) L 06/01/19 09:40 Total Bilirubin 0.8 mg/dL (0.2-1) 06/01/19 09:40 AST 73 U/L (15-37) H 06/01/19 09:40 ALT 23 U/L (13-61) 06/01/19 09:40 Alkaline Phosphatase 104 U/L (45-117) 06/01/19 09:40 Total Protein 7.3 g/dl (6.4-8.2) 06/01/19 09:40 Albumin 2.5 g/dl (3.4-5.0) L 06/01/19 09:40 CARDIAC ENZYMES Creatine Kinase 2625 U/L (26-192) H 06/01/19 08:55 Troponin I < 0.02 ng/ml (0.00-0.05) 06/01/19 04:07 Current Medications Generic Name Dose Route Start Last Admin Trade Name Freq PRN Reason Stop Dose Admin Albuterol/Ipratropium 1 amp 06/01/19 02:43 06/01/19 14:39 Duoneb - NEB 1 amp RTID V[facility]YL Administration Chlorhexidine Gluconate 1 applic 06/01/19 22:00 Hibiclens For Decolonization - TP HS VASYL Heparin Sodium (Porcine) 5,000 unit 06/01/19 06:00 06/01/19 13:35 Heparin - SQ 5,000 unit TID V[facility]YL Administration Azithromycin 500 mg in 250 mls @ 250 mls/hr 06/01/19 12:00 06/01/19 13:35 Zithromax 500mg Ivpb (Pre-Docked) IVPB 250 mls/hr DAILY [facility] Administration Piperacillin Sod/Tazobactam 50 mls @ 100 mls/hr 06/01/19 18:00 06/01/19 18:30 Sod 3.375 gm/ Dextrose IVPB 100 mls/hr Q8H-IV VASYL Administration Protocol Lactated Ringer's 1,000 ml in 1,000 mls @ 100 mls/hr 06/01/19 12:00 06/01/19 12:06 Lactated Ringers Solution IV 100 mls/hr ASDIR V[facility]YL Administration Methylprednisolone Sodium Succinate 40 mg 06/01/19 12:00 06/01/19 12:06 Solu-Medrol - IVPUSH Not Given DAILY [facility] Mupirocin 1 applic 06/01/19 10:00 06/01/19 12:05 Bactroban Ointment (For Decolonization) - NS 06/06/19 09:59 1 applic BID V[facility] Administration Non-Formulary Medication 1 each 06/01/19 10:00 Rotigotine [Neupro] TD DAILY [facility] Pantoprazole Sodium 40 mg 06/01/19 10:00 06/01/19 09:51 Protonix Iv IVPUSH 40 mg DAILY [facility] Administration Home Medications Medication Instructions Recorded Ca/D3/Mag Ox/Zinc/Chip Bin Conveyor Tender/Ketan/Bor 1 each PO HS 04/13/18 [Calcium 600-D3 Plus Caplet] Carbidopa/Levodopa [Carbidopa-Levo 1 each PO TID 04/13/18 ER 50-200 Tab] Aspirin 81 mg PO DAILY 06/01/19 Melatonin 5 mg PO HS 06/01/19 Olanzapine [Zyprexa -] 7.5 mg PO DAILY 06/01/19 Omeprazole 20 mg PO DAILY 06/01/19 Rivastigmine [Exelon Patch 1 each TD DAILY 06/01/19 4.6MG/24 Hours] Rotigotine [Neupro] 1 each TD DAILY 06/01/19 EKG sinus tachycardia, RBBB, LAFB, LVH echo 05/2019 nl LV/RV function, impaired relaxation, elevated filling pressures, RV not well visualized, mild to mod MR, mild mod TR CXR: kenyon infiltrates and congestive changes predominantly RUL and L base ASSESSMENT AND PLAN: Patient is an 79 year old female with PMHx of Parkinson Disease and dementia who was brought in to ED. for having AMS x4 days with productive cough x 4 days. At baseline she is non-ambulatory and mental status changes from day to day (some days she is alert and oriented, can speak sentences, but other days she does not speak at all). #Altered Mental Status likely Toxic Metabolic Encephalopathy CONTINUE TO MONITOR #JOS, rhabdo on IVF , discussed with ICU team. TREND CPK LEVEL #Acute hypoxemia with 02 sat in the 80s continue , keep Sa02 >90% on NC . #PNA, severe sepsis, cxr with congestive changes, will be careful with IVF, on zosyn and zithromax , kang cx follow the cx #Lactic Acidosis on IVF, trend the lactic acid #mild Thrombocytopenia 128K MONITOR #Acute Kidney Injury CR. 1.7 TODAY, TREND #HTN continue home meds as tolerated #T2DM, ss scaqle with coverage #dementia, parkinson's continue home meds DVT Px: Heparin CC CARE TIME OF 32 MIN
[2019-06-01 21:34] LABS: BLOOD UREA NITROGEN 37.6 mg/dL (7-18); CREATININE 1.3 mg/dL (0.55-1.3); POTASSIUM 4.2 mmol/L (3.5-5.1)
[2019-06-01] MEDS ORDERED: CHLORHEXIDINE GLUCONATE 4% CLEANSER FOR DECOLONIZATION TP SCH (22:00)
[2019-06-02] MEDS ORDERED: DEXTROSE 5%-WATER - 50 ML IVPB ONE ×3 (01:29→17:31)
[2019-06-02] MEDS ORDERED: PIPERACILLIN/TAZOBACTAM 3.375 GM VIAL IVPB ONE ×3 (01:29→17:31)
[2019-06-02] MEDS: PIPERACILLIN/TAZOB 3.375 GM 3.375 GM in DEXTROSE 5%-WATER - 50 ML IVPB SCH ×3 (01:33→17:36)
[2019-06-02 06:23] LABS: BASO % 0.1 % (0-2.0); HEMATOCRIT 31.2 % (32.4-45.2); HEMOGLOBIN 9.9 GM/dL (10.7-15.3); LYMPH % 8.3 % (8-40); MCH 22.3 pg (25.7-33.7); MCHC 31.7 g/dl (32.0-36.0); MEAN CELL VOLUME 70.4 fl (80-96); MEAN PLT VOLUME 10.2 fl (7.5-11.1); MONO % 4.6 % (3.8-10.2); PLATELET COUNT 163 K/MM3 (134-434); RBC 4.44 M/mm3 (3.60-5.2); RDW 17.8 % (11.6-15.6)
[2019-06-02] MEDS: HEPARIN NA (PORCINE) 5,000 UNITS/ML 1ML VIAL SQ SCH ×3 (06:44→21:25)
[2019-06-02 06:46] LABS: ALBUMIN 2.3 g/dl (3.4-5.0); BILIRUBIN,TOTAL 0.5 mg/dL (0.2-1); BLOOD UREA NITROGEN 32.5 mg/dL (7-18); CALCIUM 8.3 mg/dL (8.5-10.1); CREATININE 1.1 mg/dL (0.55-1.3); MAGNESIUM 2.5 mg/dL (1.8-2.4); PHOSPHOROUS 2.5 mg/dL (2.5-4.9); TOT PROT 6.7 g/dl (6.4-8.2)
[2019-06-02] MEDS: ALBUTEROL SO4 2.5/IPRATROPIUM 0.5 INH SOL 3 ML VIAL.NEB. NEB SCH ×3 (08:15→20:55)
--- NOTE | 2019-06-02 08:36 | PN ---
Teaching Attending Note Name of Resident: Pamela Wolf ATTENDING PHYSICIAN STATEMENT I saw and evaluated the patient. I reviewed the resident's note and discussed the case with the resident. I agree with the resident's findings and plan as documented. SUBJECTIVE: patient on the tele. bed now, comfortable but unresponsive, does not follow any commands Vital Signs Temperature 98.2 F 06/02/19 02:13 Pulse Rate 77 06/01/19 22:45 Respiratory Rate 22 H 06/02/19 02:13 Blood Pressure 117/63 06/02/19 02:13 O2 Sat by Pulse Oximetry (%) 97 06/02/19 06:00 GENERAL: The patient is awake, alert, and fully oriented, in no acute distress. HEAD: Normal with no signs of trauma. EYES: PERRL, extraocular movements intact, sclera anicteric, conjunctiva clear. ENT: Ears normal, oropharynx clear without exudates, moist mucous membranes. NECK: Trachea midline, full range of motion, supple. LUNGS: Breath sounds equal, clear to auscultation bilaterally, no wheezes, no crackles, no accessory muscle use. HEART: Regular rate and rhythm, S1, S2 without murmur, rub or gallop. ABDOMEN: Soft, nontender, nondistended, normoactive bowel sounds, no guarding, no rebound, no hepatosplenomegaly, no masses. EXTREMITIES: 2+ pulses, warm, well-perfused, no edema. NEUROLOGICAL: Cranial nerves II through XII grossly intact. Normal speech, gait not observed. PSYCH: Normal mood, normal affect. SKIN: Warm, dry, normal turgor, no rashes or lesions noted CBCD WBC 18.0 K/mm3 (4.0-10.0) H 06/02/19 05:47 RBC 4.44 M/mm3 (3.60-5.2) 06/02/19 05:47 Hgb 9.9 GM/dL (10.7-15.3) L 06/02/19 05:47 Hct 31.2 % (32.4-45.2) L 06/02/19 05:47 MCV 70.4 fl (80-96) L 06/02/19 05:47 MCHC 31.7 g/dl (32.0-36.0) L 06/02/19 05:47 RDW 17.8 % (11.6-15.6) H 06/02/19 05:47 Plt Count 163 K/MM3 (134-434) D 06/02/19 05:47 MPV 10.2 fl (7.5-11.1) 06/02/19 05:47 CMP Sodium 143 mmol/L (136-145) 06/02/19 05:47 Potassium 4.0 mmol/L (3.5-5.1) 06/02/19 05:47 Chloride 111 mmol/L (98-107) H 06/02/19 05:47 Carbon Dioxide 26 mmol/L (21-32) 06/02/19 05:47 Anion Gap 7 MMOL/L (8-16) L 06/02/19 05:47 BUN 32.5 mg/dL (7-18) H 06/02/19 05:47 Creatinine 1.1 mg/dL (0.55-1.3) 06/02/19 05:47 Random Glucose 177 mg/dL (74-106) H 06/02/19 05:47 Calcium 8.3 mg/dL (8.5-10.1) L 06/02/19 05:47 Total Bilirubin 0.5 mg/dL (0.2-1) 06/02/19 05:47 AST 46 U/L (15-37) H 06/02/19 05:47 ALT 33 U/L (13-61) 06/02/19 05:47 Alkaline Phosphatase 96 U/L (45-117) 06/02/19 05:47 Total Protein 6.7 g/dl (6.4-8.2) 06/02/19 05:47 Albumin 2.3 g/dl (3.4-5.0) L 06/02/19 05:47 CARDIAC ENZYMES Creatine Kinase 954 U/L (26-192) H 06/02/19 05:47 Troponin I < 0.02 ng/ml (0.00-0.05) 06/01/19 04:07 Current Medications Generic Name Dose Route Start Last Admin Trade Name Freq PRN Reason Stop Dose Admin Albuterol/Ipratropium 1 amp 06/02/19 08:00 Duoneb - NEB RTID VASYL Chlorhexidine Gluconate 1 applic 06/02/19 22:00 Hibiclens For Decolonization - TP HS VASYL Heparin Sodium (Porcine) 5,000 unit 06/02/19 06:00 06/02/19 06:44 Heparin - SQ 5,000 unit TID VASYL Administration Lactated Ringer's 1,000 ml in 1,000 mls @ 100 mls/hr 06/01/19 12:00 06/01/19 12:06 Lactated Ringers Solution IV 100 mls/hr ASDIR V[facility] Administration Azithromycin 500 mg in 250 mls @ 250 mls/hr 06/02/19 10:00 Zithromax 500mg Ivpb (Pre-Docked) IVPB DAILY [facility] Piperacillin Sod/Tazobactam 50 mls @ 100 mls/hr 06/02/19 02:00 06/02/19 01:33 Sod 3.375 gm/ Dextrose IVPB 100 mls/hr Q8H-IV [facility] Administration Protocol Methylprednisolone Sodium Succinate 40 mg 06/01/19 12:00 06/01/19 12:06 Solu-Medrol - IVPUSH Not Given DAILY [facility] Mupirocin 1 applic 06/02/19 10:00 Bactroban Ointment (For Decolonization) - NS 06/06/19 09:59 BID [facility] Non-Formulary Medication 1 each 06/02/19 10:00 Rotigotine [Neupro] TD DAILY [facility] Pantoprazole Sodium 40 mg 06/02/19 10:00 Protonix Iv IVPUSH DAILY [facility] Home Medications Medication Instructions Recorded Ca/D3/Mag Ox/Zinc/Mica Machine Operator/Ketan/Bor 1 each PO HS 04/13/18 [Calcium 600-D3 Plus Caplet] Carbidopa/Levodopa [Carbidopa-Levo 1 each PO TID 04/13/18 ER 50-200 Tab] Aspirin 81 mg PO DAILY 06/01/19 Melatonin 5 mg PO HS 06/01/19 Olanzapine [Zyprexa -] 7.5 mg PO DAILY 06/01/19 Omeprazole 20 mg PO DAILY 06/01/19 Rivastigmine [Exelon Patch 1 each TD DAILY 06/01/19 4.6MG/24 Hours] Rotigotine [Neupro] 1 each TD DAILY 06/01/19 Laboratory Tests 06/01/19 06/01/19 06/02/19 16:50 20:00 05:47 BUN 37.6 H 32.5 H Creatinine 1.3 1.1 Lactic Acid 3.6 H* Creatine Kinase 1578 H 954 H 06/02/19 05:47 BUN Creatinine Lactic Acid 1.5 Creatine Kinase Microbiology 06/01/19 03:00 Urine For Antigen Detection Legionella Antigen - Final 06/01/19 03:00 Urine For Antigen Detection Streptococcus pneumoniae Antigen (M - Final 06/01/19 01:20 Urine - Urine - Catheterized Urine Culture - Final NO GROWTH OBTAINED 06/01/19 00:00 Blood - Peripheral Venous Blood Culture - Preliminary Pending Organism; g+Cocci, waiting for organism 06/01/19 00:00 Blood - Peripheral Venous Blood Culture - Preliminary NO GROWTH OBTAINED AFTER 24 HOURS, INCUBATION TO CONTINUE FOR 4 DAYS. echo 05/2019 nl LV/RV function, impaired relaxation, elevated filling pressures, RV not well visualized, mild to mod MR, mild mod TR CXR: kenyon infiltrates and congestive changes predominantly RUL and L base EKG sinus tachycardia, RBBB, LAFB, LVH ASSESSMENT AND PLAN: Patient is an 79 year old female with PMHx of Parkinson Disease and dementia who was brought in to ED. for having AMS x4 days with productive cough x 4 days. At baseline she is non-ambulatory and mental status changes from day to day (some days she is alert and oriented, can speak sentences, but other days she does not speak at all). #Altered Mental Status likely Toxic Metabolic Encephalopathy CONTINUE TO MONITOR , also due to G+ cocci on the blood cx , please monitor #G+ bacteremia possiblity , pending the cx , repeat the level if +, ID on the case #JOS, rhabdo on IVF , discussed with ICU team. TRENDing down the CPK LEVEL #Acute hypoxemia with 02 sat in the 80s continue , keep Sa02 >90% on NC . #PNA, severe sepsis, cxr with congestive changes, will be careful with IVF, on zosyn and zithromax continue , kang cx follow the cx #Lactic Acidosis on IVF, trend the lactic acid #mild Thrombocytopenia 128K-->168K improved now #Acute Kidney Injury CR. 1.7-->1.1 TODAY, TREND #HTN continue home meds as tolerated #T2DM, ss scaqle with coverage #dementia, parkinson's continue home meds DVT Px: Heparin
[2019-06-02] MEDS: LACTATED RINGERS SOLUTION 1,000 ML/1,000 ML INFUS.BAG IV SCH ×2 (09:08→13:23)
[2019-06-02] MEDS: PANTOPRAZOLE SODIUM 40 MG VIAL IVPUSH SCH (09:09)
[2019-06-02] MEDS: methylPREDNISolone NA SUCC 40 MG/1 ML VIAL IVPUSH SCH (09:10)
--- NOTE | 2019-06-02 09:54 | PN ---
Physical Exam: SUBJECTIVE: Patient seen and examined. Pt grimaces and groans but does not open eyes. OBJECTIVE: Vital Signs Period Temp Pulse Resp BP Sys/Campbell Pulse Ox Last 24 Hr 97.6 F-98.5 F 54-86 15-23 108-143/56-83 96-99 GENERAL: Patient responds to noxious stimuli HEAD: Normal with no signs of trauma. EYES: PERRL, conjunctiva clear. ENT: Ears normal, nares patent, moist mucous membranes. NECK: Trachea midline LUNGS: Clear to auscultation anteriorly HEART: Regular rate and rhythm, no murmur ABDOMEN: Soft, nondistended, normoactive bowel sounds EXTREMITIES: Warm, well-perfused, trace edema. NEUROLOGICAL: Cranial nerves II through XII grossly intact. PSYCH: Normal mood, normal affect. SKIN: Warm, dry, normal turgor Laboratory Results - last 24 hr 06/01/19 06/01/19 06/01/19 08:55 08:55 08:55 WBC RBC Hgb Hct MCV MCH MCHC RDW Plt Count MPV Absolute Neuts (auto) Neutrophils % Neutrophils % (Manual) Band Neutrophils % Lymphocytes % Lymphocytes % (Manual) Monocytes % Monocytes % (Manual) Eosinophils % Eosinophils % (Manual) Basophils % Basophils % (Manual) Myelocytes % (Man) Promyelocytes % (Man) Blast Cells % (Manual) Nucleated RBC % Metamyelocytes Hypochromia Platelet Estimate Polychromasia Poikilocytosis Anisocytosis Microcytosis Macrocytosis Target Cells PT with INR INR Anticoagulation Therapy Puncture Site ABG pH ABG pCO2 at Pt Temp ABG pO2 at Pt Temp ABG HCO3 ABG O2 Sat (Measured) ABG O2 Content ABG Base Excess Gaetano Test O2 Delivery Device Oxygen Flow Rate Vent Mode Vent Rate Mechanical Rate Pressure Support Vent Sodium Potassium Chloride Carbon Dioxide Anion Gap BUN Creatinine Est GFR (CKD-EPI)AfAm Est GFR (CKD-EPI)NonAf POC Glucometer Random Glucose Lactic Acid Calcium Phosphorus Magnesium Total Bilirubin AST ALT Alkaline Phosphatase Ammonia < 10.00 L Creatine Kinase 2625 H Creatine Kinase Index 4.5 CK-MB (CK-2) 4.5 H Total Protein Albumin Vitamin B12 Cancelled TSH 06/01/19 06/01/19 06/01/19 09:40 09:40 09:40 WBC 17.2 H RBC 4.87 Hgb 11.0 Hct 35.6 MCV 73.1 L MCH 22.5 L MCHC 30.8 L RDW 18.0 H Plt Count 128 L D MPV 9.9 Absolute Neuts (auto) 15.7 H Neutrophils % 91.2 H D Neutrophils % (Manual) 77.0 Band Neutrophils % 8.0 Lymphocytes % 5.7 L D Lymphocytes % (Manual) 4.0 L D Monocytes % 3.0 L Monocytes % (Manual) 2 L Eosinophils % 0.0 D Eosinophils % (Manual) 6.0 H D Basophils % 0.1 Basophils % (Manual) 0.0 Myelocytes % (Man) 2 D Promyelocytes % (Man) 0 Blast Cells % (Manual) 0 Nucleated RBC % 1 H Metamyelocytes 0 Hypochromia 1+ Platelet Estimate Decreased Polychromasia 1+ Poikilocytosis 1+ Anisocytosis 1+ Microcytosis 1+ Macrocytosis 0 Target Cells 1+ PT with INR 13.70 H INR 1.16 H Anticoagulation Therapy Puncture Site ABG pH ABG pCO2 at Pt Temp ABG pO2 at Pt Temp ABG HCO3 ABG O2 Sat (Measured) ABG O2 Content ABG Base Excess Gaetano Test O2 Delivery Device Oxygen Flow Rate Vent Mode Vent Rate Mechanical Rate Pressure Support Vent Sodium 144 Potassium 4.4 Chloride 112 H Carbon Dioxide 24 Anion Gap 8 BUN 47.4 H Creatinine 1.7 H Est GFR (CKD-EPI)AfAm 32.21 Est GFR (CKD-EPI)NonAf 27.80 POC Glucometer Random Glucose 199 H Lactic Acid Calcium 7.7 L Phosphorus 4.0 Magnesium 2.5 H Total Bilirubin 0.8 AST 73 H ALT 23 Alkaline Phosphatase 104 Ammonia Creatine Kinase Creatine Kinase Index CK-MB (CK-2) Total Protein 7.3 Albumin 2.5 L Vitamin B12 TSH 0.79 06/01/19 06/01/19 06/01/19 11:07 16:50 16:50 WBC RBC Hgb Hct MCV MCH MCHC RDW Plt Count MPV Absolute Neuts (auto) Neutrophils % Neutrophils % (Manual) Band Neutrophils % Lymphocytes % Lymphocytes % (Manual) Monocytes % Monocytes % (Manual) Eosinophils % Eosinophils % (Manual) Basophils % Basophils % (Manual) Myelocytes % (Man) Promyelocytes % (Man) Blast Cells % (Manual) Nucleated RBC % Metamyelocytes Hypochromia Platelet Estimate Polychromasia Poikilocytosis Anisocytosis Microcytosis Macrocytosis Target Cells PT with INR INR Anticoagulation Therapy No Result Required. Puncture Site Left radial ABG pH 7.35 ABG pCO2 at Pt Temp 41.8 ABG pO2 at Pt Temp 95.0 ABG HCO3 22.5 ABG O2 Sat (Measured) 96.6 ABG O2 Content 14.7 ABG Base Excess -2.4 L Gaetano Test Positive O2 Delivery Device No Result Required. Oxygen Flow Rate Yes Vent Mode No Result Required. Vent Rate No Result Required. Mechanical Rate No Result Required. Pressure Support Vent No Result Required. Sodium Cancelled Potassium Cancelled Chloride Cancelled Carbon Dioxide Cancelled Anion Gap Cancelled BUN Cancelled Creatinine Cancelled Est GFR (CKD-EPI)AfAm Cancelled Est GFR (CKD-EPI)NonAf Cancelled POC Glucometer Random Glucose Cancelled Lactic Acid 3.6 H* Calcium Cancelled Phosphorus Magnesium Total Bilirubin AST ALT Alkaline Phosphatase Ammonia Creatine Kinase Cancelled Creatine Kinase Index CK-MB (CK-2) Total Protein Albumin Vitamin B12 TSH 06/01/19 06/02/19 06/02/19 20:00 02:19 05:47 WBC 18.0 H RBC 4.44 Hgb 9.9 L Hct 31.2 L MCV 70.4 L MCH 22.3 L MCHC 31.7 L RDW 17.8 H Plt Count 163 D MPV 10.2 Absolute Neuts (auto) 15.7 H Neutrophils % 87.0 H Neutrophils % (Manual) Band Neutrophils % Lymphocytes % 8.3 D Lymphocytes % (Manual) Monocytes % 4.6 Monocytes % (Manual) Eosinophils % 0.0 Eosinophils % (Manual) Basophils % 0.1 Basophils % (Manual) Myelocytes % (Man) Promyelocytes % (Man) Blast Cells % (Manual) Nucleated RBC % 0 Metamyelocytes Hypochromia Platelet Estimate Polychromasia Poikilocytosis Anisocytosis Microcytosis Macrocytosis Target Cells PT with INR INR Anticoagulation Therapy Puncture Site ABG pH ABG pCO2 at Pt Temp ABG pO2 at Pt Temp ABG HCO3 ABG O2 Sat (Measured) ABG O2 Content ABG Base Excess Gaetano Test O2 Delivery Device Oxygen Flow Rate Vent Mode Vent Rate Mechanical Rate Pressure Support Vent Sodium 144 Potassium 4.2 Chloride 110 H Carbon Dioxide 25 Anion Gap 9 BUN 37.6 H Creatinine 1.3 Est GFR (CKD-EPI)AfAm 44.56 Est GFR (CKD-EPI)NonAf 38.44 POC Glucometer 182 Random Glucose 209 H Lactic Acid Calcium 8.0 L Phosphorus Magnesium Total Bilirubin AST ALT Alkaline Phosphatase Ammonia Creatine Kinase 1578 H Creatine Kinase Index 0.1 CK-MB (CK-2) 2.8 Total Protein Albumin Vitamin B12 TSH 06/02/19 06/02/19 06/02/19 05:47 05:47 06:23 WBC RBC Hgb Hct MCV MCH MCHC RDW Plt Count MPV Absolute Neuts (auto) Neutrophils % Neutrophils % (Manual) Band Neutrophils % Lymphocytes % Lymphocytes % (Manual) Monocytes % Monocytes % (Manual) Eosinophils % Eosinophils % (Manual) Basophils % Basophils % (Manual) Myelocytes % (Man) Promyelocytes % (Man) Blast Cells % (Manual) Nucleated RBC % Metamyelocytes Hypochromia Platelet Estimate Polychromasia Poikilocytosis Anisocytosis Microcytosis Macrocytosis Target Cells PT with INR INR Anticoagulation Therapy Puncture Site ABG pH ABG pCO2 at Pt Temp ABG pO2 at Pt Temp ABG HCO3 ABG O2 Sat (Measured) ABG O2 Content ABG Base Excess Gaetano Test O2 Delivery Device Oxygen Flow Rate Vent Mode Vent Rate Mechanical Rate Pressure Support Vent Sodium 143 Potassium 4.0 Chloride 111 H Carbon Dioxide 26 Anion Gap 7 L BUN 32.5 H Creatinine 1.1 Est GFR (CKD-EPI)AfAm 54.53 Est GFR (CKD-EPI)NonAf 47.05 POC Glucometer 161 Random Glucose 177 H Lactic Acid 1.5 Calcium 8.3 L Phosphorus 2.5 Magnesium 2.5 H Total Bilirubin 0.5 AST 46 H ALT 33 Alkaline Phosphatase 96 Ammonia Creatine Kinase 954 H Creatine Kinase Index 0.1 CK-MB (CK-2) 1.7 Total Protein 6.7 Albumin 2.3 L Vitamin B12 TSH Active Medications Generic Name Dose Route Start Last Admin Trade Name Freq PRN Reason Stop Dose Admin Albuterol/Ipratropium 1 amp 06/02/19 08:00 06/02/19 08:15 Duoneb - NEB 1 amp RTID [facility] Administration Chlorhexidine Gluconate 1 applic 06/02/19 22:00 Hibiclens For Decolonization - TP HS [facility] Heparin Sodium (Porcine) 5,000 unit 06/02/19 06:00 06/02/19 06:44 Heparin - SQ 5,000 unit TID [facility] Administration Lactated Ringer's 1,000 ml in 1,000 mls @ 100 mls/hr 06/01/19 12:00 06/02/19 09:08 Lactated Ringers Solution IV 100 mls/hr ASDIR [facility] Administration Azithromycin 500 mg in 250 mls @ 250 mls/hr 06/02/19 10:00 Zithromax 500mg Ivpb (Pre-Docked) IVPB DAILY [facility] Piperacillin Sod/Tazobactam 50 mls @ 100 mls/hr 06/02/19 02:00 06/02/19 09:09 Sod 3.375 gm/ Dextrose IVPB 100 mls/hr Q8H-IV [facility] Administration Protocol Methylprednisolone Sodium Succinate 40 mg 06/01/19 12:00 06/02/19 09:10 Solu-Medrol - IVPUSH 40 mg DAILY [facility] Administration Mupirocin 1 applic 06/02/19 10:00 Bactroban Ointment (For Decolonization) - NS 06/06/19 09:59 BID [facility] Non-Formulary Medication 1 each 06/02/19 10:00 Rotigotine [Neupro] TD DAILY [facility] Pantoprazole Sodium 40 mg 06/02/19 10:00 06/02/19 09:09 Protonix Iv IVPUSH 40 mg DAILY [facility] Administration ASSESSMENT/PLAN: Ms. Prescott is an 79y/o female with Parkinson's and dementia who presents with AMS and cough x 4 days. Pt was hypoxic to the 80s at ED presentation. #acute hypoxic respiratory failure 2/2 multilobar PNA and sepsis -CXR b/l infiltrates -flu negative -echo- normal EF, impaired relaxation, elevated filling pressures, TR, MR -duonebs TID scheduled -solu-medrol 40mg IV daily -zosyn 3.375g Q8H day 2 -zithromax 500mg IV daily day 2 -LR 100mL/hr -ID following #AMS toxic metabolic encephalopathy vs less likely CVA -CT head negative for acute processes -urine cx negative -blood cx pending- Gram negative bacilli in clusters prelim -NGT placed for feeds -dietary consulted #leukocytosis -from infection vs steroid use -no significant change (18) -will monitor #lactic acidosis, resolved -echo ordered #transaminitis, improved #JOS, resolved -nephro following #Parkinson's and dementia -hold home meds DVT ppx heparin GI ppx protonix FEN LR 100mL/hr monitor Cr NPO Visit type - Emergency Visit Emergency Visit: Yes ED Registration Date: 06/01/19 Care time: The patient presented to the Emergency Department on the above date and was hospitalized for further evaluation of their emergent condition. - New Patient This patient is new to me today: No - Critical Care Critical Care patient: No - Discharge Referral Referred to [facility] No ATTENDING PHYSICIAN STATEMENT I saw and evaluated the patient. I reviewed the resident's note and discussed the case with the resident. I agree with the resident's findings and plan as documented. SUBJECTIVE: OBJECTIVE: ASSESSMENT AND PLAN:
[2019-06-02] MEDS ORDERED: MUPIROCIN 2% TOPICAL OINTMENT FOR DECOLONIZATION NS SCH (10:00)
[2019-06-02] MEDS: AZITHROMYCIN IVPB 500 MG/250 ML BAG IVPB SCH (10:02)
--- NOTE | 2019-06-02 11:04 | PN ---
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 (short form) - Note 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: s: lethargic, not answering questions Current Medications Albuterol/Ipratropium (Duoneb -) 1 amp NEB RTID [facility] Last Admin: 06/02/19 08:15 Dose: 1 amp Chlorhexidine Gluconate (Hibiclens For Decolonization -) 1 applic TP HS [facility] Heparin Sodium (Porcine) (Heparin -) 5,000 unit SQ TID [facility] Last Admin: 06/02/19 06:44 Dose: 5,000 unit Lactated Ringer's (Lactated Ringers Solution) 1,000 ml in 1,000 mls @ 100 mls/ hr IV ASDIR [facility] Last Admin: 06/02/19 09:08 Dose: 100 mls/hr Azithromycin (Zithromax 500mg Ivpb (Pre-Docked)) 500 mg in 250 mls @ 250 mls/ hr IVPB DAILY [facility] Last Admin: 06/02/19 10:02 Dose: 250 mls/hr Piperacillin Sod/Tazobactam (Sod 3.375 gm/ Dextrose) 50 mls @ 100 mls/hr IVPB Q8H-IV [facility]; Protocol Last Admin: 06/02/19 09:09 Dose: 100 mls/hr Methylprednisolone Sodium Succinate (Solu-Medrol -) 40 mg IVPUSH DAILY [facility] Last Admin: 06/02/19 09:10 Dose: 40 mg Mupirocin (Bactroban Ointment (For Decolonization) -) 1 applic NS BID [facility] Stop: 06/06/19 09:59 Non-Formulary Medication (Rotigotine [Neupro]) 1 each TD DAILY [facility] Pantoprazole Sodium (Protonix Iv) 40 mg IVPUSH DAILY [facility] Last Admin: 06/02/19 09:09 Dose: 40 mg Vital Signs Period Temp Pulse Resp BP Sys/Campbell Pulse Ox Last 24 Hr 97.6 F-98.5 F 54-86 17-23 108-143/56-83 96-99 Constitutional: Yes: No Distress, Calm Eyes: Yes: Conjunctiva Clear, EOM Intact HENT: Yes: Atraumatic, Normocephalic Neck: Yes: Supple, Trachea Midline Respiratory: Yes: Regular, Diminished Gastrointestinal: Yes: Normal Bowel Sounds, Soft Cardiovascular: Yes: Regular Rate and Rhythm JVD: No Extremities: No: Cold Edema: No Integumentary: No: Jaundice Neurological: Yes: Lethargy Psychiatric: No: Agitated Assessment/Plan EKG sinus tachycardia, RBBB, LAFB, LVH echo 05/2019 nl LV/RV function, impaired relaxation, elevated filling pressures, RV not well visualized, mild to mod MR, mild mod TR CXR: kenyon infiltrates and congestive changes predominantly RUL and L base tele: sinus PNA, sepsis - manage per critical care, ID - findings on CXR more suggestive of PNA, although congestive changes possible in setting of receiving IVF - nl LV function on echo - cautious use of IVF, hold lasix at this point, monitor respiratory status HTN - holding diovan in setting of JOS DM - manage per primary dementia, parkinson's - manage per primary JOS, rhabdo - renal following - CK downtrending with IVF - Cr improving - monitor volume status while receiving IVF
--- NOTE | 2019-06-02 11:32 | PN ---
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, C[facility]ESSERT - Note 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: Lethargic. Aspiration risk at this time. Continue NPO at this time. Pt is a full code. PEG removed 3 months ago. Family wishes?
[2019-06-02 11:35] LABS: PLATELET ESTIMATE NORMAL
--- NOTE | 2019-06-02 14:51 | PN ---
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 (short form) - Note 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: Lethargic. Breathing is non-labored. No acute events overnight. Intake & Output 05/30/19 05/31/19 06/01/19 06/02/19 23:59 23:59 23:59 23:59 Intake Total 1920 950 Balance 1920 950 Weight 150 lb 139 lb 6.4 oz Last Vital Signs Temp Pulse Resp BP Pulse Ox 98.5 F 86 20 109/63 97 06/02/19 09:23 06/02/19 09:23 06/02/19 09:23 06/02/19 09:23 06/02/19 06:00 Active Medications Albuterol/Ipratropium (Duoneb -) 1 amp NEB RTID [facility] Last Admin: 06/02/19 08:15 Dose: 1 amp Chlorhexidine Gluconate (Hibiclens For Decolonization -) 1 applic TP HS [facility] Heparin Sodium (Porcine) (Heparin -) 5,000 unit SQ TID [facility] Last Admin: 06/02/19 13:22 Dose: 5,000 unit Lactated Ringer's (Lactated Ringers Solution) 1,000 ml in 1,000 mls @ 100 mls/ hr IV ASDIR [facility] Last Admin: 06/02/19 13:23 Dose: Not Given Azithromycin (Zithromax 500mg Ivpb (Pre-Docked)) 500 mg in 250 mls @ 250 mls/ hr IVPB DAILY [facility] Last Admin: 06/02/19 10:02 Dose: 250 mls/hr Piperacillin Sod/Tazobactam (Sod 3.375 gm/ Dextrose) 50 mls @ 100 mls/hr IVPB Q8H-IV [facility]; Protocol Last Admin: 06/02/19 09:09 Dose: 100 mls/hr Methylprednisolone Sodium Succinate (Solu-Medrol -) 40 mg IVPUSH DAILY [facility] Last Admin: 06/02/19 09:10 Dose: 40 mg Mupirocin (Bactroban Ointment (For Decolonization) -) 1 applic NS BID [facility] Stop: 06/06/19 09:59 Non-Formulary Medication (Rotigotine [Neupro]) 1 each TD DAILY [facility] Pantoprazole Sodium (Protonix Iv) 40 mg IVPUSH DAILY [facility] Last Admin: 06/02/19 09:09 Dose: 40 mg Gen: lethargic, breathing nonlabored Heart: RRR Lung: scattered rhonchi Abd: soft, nontender Ext: no edema ASSESSMENT AND PLAN: Altered Mental Status likely Toxic Metabolic Encephalopathy Pneumonia Severe Sepsis Lactic Acidosis Thrombocytopenia Acute Kidney Injury Rhabdomyolysis HTN DM Parkinsons Dementia - continue antibiotics - IVF - monitor urine output, creatinine - trend CPK - O2 to keep Spo2 >90% - Empiric medrol - aspiration precautions - DVT prophylaxis Dr Collins
--- NOTE | 2019-06-02 16:37 | PN ---
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, Physician History of Present Illness: Pt seen and examined at bedside. She remains lethargic. No great change in mental status. - Current Medication List Current Medications: Active Medications Albuterol/Ipratropium (Duoneb -) 1 amp NEB RTID [facility] Last Admin: 06/02/19 14:30 Dose: 1 amp Chlorhexidine Gluconate (Hibiclens For Decolonization -) 1 applic TP HS [facility] Heparin Sodium (Porcine) (Heparin -) 5,000 unit SQ TID [facility] Last Admin: 06/02/19 13:22 Dose: 5,000 unit Lactated Ringer's (Lactated Ringers Solution) 1,000 ml in 1,000 mls @ 100 mls/ hr IV ASDIR [facility] Last Admin: 06/02/19 13:23 Dose: Not Given Azithromycin (Zithromax 500mg Ivpb (Pre-Docked)) 500 mg in 250 mls @ 250 mls/ hr IVPB DAILY [facility] Last Admin: 06/02/19 10:02 Dose: 250 mls/hr Piperacillin Sod/Tazobactam (Sod 3.375 gm/ Dextrose) 50 mls @ 100 mls/hr IVPB Q8H-IV [facility]; Protocol Last Admin: 06/02/19 09:09 Dose: 100 mls/hr Methylprednisolone Sodium Succinate (Solu-Medrol -) 40 mg IVPUSH DAILY [facility] Last Admin: 06/02/19 09:10 Dose: 40 mg Mupirocin (Bactroban Ointment (For Decolonization) -) 1 applic NS BID [facility] Stop: 06/06/19 09:59 Non-Formulary Medication (Rotigotine [Neupro]) 1 each TD DAILY [facility] Pantoprazole Sodium (Protonix Iv) 40 mg IVPUSH DAILY [facility] Last Admin: 06/02/19 09:09 Dose: 40 mg - Objective Vital Signs: Vital Signs Temperature 98.7 F 06/02/19 14:51 Pulse Rate 83 06/02/19 14:51 Respiratory Rate 20 06/02/19 14:51 Blood Pressure 135/68 06/02/19 14:51 O2 Sat by Pulse Oximetry (%) 98 06/02/19 14:00 Constitutional: Yes: Calm Eyes: Yes: Conjunctiva Clear HENT: Yes: Atraumatic Cardiovascular: Yes: S1, S2 Respiratory: Yes: CTA Bilaterally Gastrointestinal: Yes: Normal Bowel Sounds, Soft Genitourinary: Yes: Incontinence Extremities: Yes: WNL Edema: No Integumentary: Yes: WNL Neurological: Yes: Confusion Labs: CBC, BMP 06/02/19 05:47 06/02/19 05:47 INR, PTT INR 1.16 (0.83-1.09) H 06/01/19 09:40 Problem List - Problems (1) Rhabdomyolysis Code(s): M62.82 - RHABDOMYOLYSIS (2) JOS (acute kidney injury) Code(s): N17.9 - ACUTE KIDNEY FAILURE, UNSPECIFIED (3) Pneumonia Code(s): J18.9 - PNEUMONIA, UNSPECIFIED ORGANISM (4) Sepsis Code(s): A41.9 - SEPSIS, UNSPECIFIED ORGANISM Assessment/Plan Current Medications Generic Name Dose Route Start Last Admin Trade Name Freq PRN Reason Stop Dose Admin Albuterol/Ipratropium 1 amp 06/02/19 08:00 06/02/19 14:30 Duoneb - NEB 1 amp RTID [facility] Administration Chlorhexidine Gluconate 1 applic 06/02/19 22:00 Hibiclens For Decolonization - TP HS [facility] Heparin Sodium (Porcine) 5,000 unit 06/02/19 06:00 06/02/19 13:22 Heparin - SQ 5,000 unit TID [facility] Administration Lactated Ringer's 1,000 ml in 1,000 mls @ 100 mls/hr 06/01/19 12:00 06/02/19 13:23 Lactated Ringers Solution IV Not Given ASDIR [facility] Azithromycin 500 mg in 250 mls @ 250 mls/hr 06/02/19 10:00 06/02/19 10:02 Zithromax 500mg Ivpb (Pre-Docked) IVPB 250 mls/hr DAILY [facility] Administration Piperacillin Sod/Tazobactam 50 mls @ 100 mls/hr 06/02/19 02:00 06/02/19 09:09 Sod 3.375 gm/ Dextrose IVPB 100 mls/hr Q8H-IV [facility] Administration Protocol Methylprednisolone Sodium Succinate 40 mg 06/01/19 12:00 06/02/19 09:10 Solu-Medrol - IVPUSH 40 mg DAILY [facility] Administration Mupirocin 1 applic 06/02/19 10:00 Bactroban Ointment (For Decolonization) - NS 06/06/19 09:59 BID [facility] Non-Formulary Medication 1 each 06/02/19 10:00 Rotigotine [Neupro] TD DAILY [facility] Pantoprazole Sodium 40 mg 06/02/19 10:00 06/02/19 09:09 Protonix Iv IVPUSH 40 mg DAILY [facility] Administration Impression 1. JOS 2. sepsis 3. PNA 4. dementia 5. parkinsons 6. lactic acidosis 7. rhabdo 8. DM 9. HTN Plan - renal function stabilizing - cpk is improving - repeat labs in am - trend cpk level - jos likely a combination of sepsis, rhabdo and prerenal disease
[2019-06-02] MEDS ORDERED: ACETAMINOPHEN 1000 MG/100 ML VIAL (NON FORMULARY) IVPB ONE (17:24)
[2019-06-02] MEDS ORDERED: CHLORHEXIDINE GLUCONATE 4% CLEANSER FOR DECOLONIZATION TP SCH (22:00)
[2019-06-03] MEDS ORDERED: PIPERACILLIN/TAZOBACTAM 3.375 GM VIAL IVPB ONE ×3 (01:26→20:44)
[2019-06-03] MEDS ORDERED: DEXTROSE 5%-WATER - 50 ML IVPB ONE ×3 (01:26→20:44)
[2019-06-03] MEDS: PIPERACILLIN/TAZOB 3.375 GM 3.375 GM in DEXTROSE 5%-WATER - 50 ML IVPB SCH ×3 (01:32→20:53)
[2019-06-03] MEDS: HEPARIN NA (PORCINE) 5,000 UNITS/ML 1ML VIAL SQ SCH ×3 (07:15→21:28)
[2019-06-03 07:21] LABS: HEMATOCRIT 30.6 % (32.4-45.2); HEMOGLOBIN 9.6 GM/dL (10.7-15.3); MCH 22.4 pg (25.7-33.7); MCHC 31.4 g/dl (32.0-36.0); MEAN CELL VOLUME 71.4 fl (80-96); MEAN PLT VOLUME 9.5 fl (7.5-11.1); PLATELET COUNT 210 K/MM3 (134-434); RBC 4.28 M/mm3 (3.60-5.2); RDW 17.2 % (11.6-15.6); WHITE BLOOD COUNT 15.6 K/mm3 (4.0-10.0)
[2019-06-03 08:12] LABS: BLOOD UREA NITROGEN 27.9 mg/dL (7-18); CALCIUM 8.1 mg/dL (8.5-10.1); MAGNESIUM 2.3 mg/dL (1.8-2.4); PHOSPHOROUS 2.3 mg/dL (2.5-4.9); POTASSIUM 3.5 mmol/L (3.5-5.1)
[2019-06-03] MEDS: ALBUTEROL SO4 2.5/IPRATROPIUM 0.5 INH SOL 3 ML VIAL.NEB. NEB SCH ×3 (08:30→20:45)
--- NOTE | 2019-06-03 08:42 | PN ---
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 (short form) - Note 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: Remains lethargic. Breathing is non-labored. No acute events overnight. Intake & Output 05/31/19 06/01/19 06/02/19 06/03/19 23:59 23:59 23:59 23:59 Intake Total 1919 2700 850 Balance 1919 2700 850 Weight 150 lb 139 lb 6.4 oz 137 lb 12.8 oz Last Vital Signs Temp Pulse Resp BP Pulse Ox 98.0 F 83 18 142/73 99 06/03/19 06:00 06/03/19 06:00 06/03/19 06:00 06/03/19 06:00 06/03/19 05:48 Active Medications Albuterol/Ipratropium (Duoneb -) 1 amp NEB RTID [facility] Last Admin: 06/02/19 20:55 Dose: 1 amp Carbidopa/Levodopa (Sinemet *Cr* 50/200 -) 1 combo PO TID [facility] Chlorhexidine Gluconate (Hibiclens For Decolonization -) 1 applic TP HS [facility] Heparin Sodium (Porcine) (Heparin -) 5,000 unit SQ TID [facility] Last Admin: 06/03/19 07:15 Dose: 5,000 unit Lactated Ringer's (Lactated Ringers Solution) 1,000 ml in 1,000 mls @ 100 mls/ hr IV ASDIR [facility] Last Admin: 06/02/19 13:23 Dose: Not Given Azithromycin (Zithromax 500mg Ivpb (Pre-Docked)) 500 mg in 250 mls @ 250 mls/ hr IVPB DAILY [facility] Last Admin: 06/02/19 10:02 Dose: 250 mls/hr Piperacillin Sod/Tazobactam (Sod 3.375 gm/ Dextrose) 50 mls @ 100 mls/hr IVPB Q8H-IV [facility]; Protocol Last Admin: 06/03/19 01:32 Dose: 100 mls/hr Methylprednisolone Sodium Succinate (Solu-Medrol -) 40 mg IVPUSH DAILY [facility] Last Admin: 06/02/19 09:10 Dose: 40 mg Mupirocin (Bactroban Ointment (For Decolonization) -) 1 applic NS BID [facility] Stop: 06/06/19 09:59 Non-Formulary Medication (Rotigotine [Neupro]) 1 each TD DAILY [facility] Pantoprazole Sodium (Protonix Iv) 40 mg IVPUSH DAILY [facility] Last Admin: 06/02/19 09:09 Dose: 40 mg Gen: lethargic, breathing nonlabored Heart: RRR Lung: scattered rhonchi Abd: soft, nontender Ext: no edema Laboratory Results - last 24 hr 06/02/19 06/02/19 06/02/19 05:47 13:21 17:42 WBC RBC Hgb Hct MCV MCH MCHC RDW Plt Count MPV Platelet Estimate Normal Platelet Comment Present Sodium Potassium Chloride Carbon Dioxide Anion Gap BUN Creatinine Est GFR (CKD-EPI)AfAm Est GFR (CKD-EPI)NonAf POC Glucometer 176 158 Random Glucose Calcium Phosphorus Magnesium 06/02/19 06/03/19 06/03/19 21:28 04:26 06:00 WBC 15.6 H RBC 4.28 Hgb 9.6 L Hct 30.6 L MCV 71.4 L MCH 22.4 L MCHC 31.4 L RDW 17.2 H Plt Count 210 D MPV 9.5 Platelet Estimate Platelet Comment Sodium Potassium Chloride Carbon Dioxide Anion Gap BUN Creatinine Est GFR (CKD-EPI)AfAm Est GFR (CKD-EPI)NonAf POC Glucometer 145 98 Random Glucose Calcium Phosphorus Magnesium 06/03/19 06:00 WBC RBC Hgb Hct MCV MCH MCHC RDW Plt Count MPV Platelet Estimate Platelet Comment Sodium 144 Potassium 3.5 Chloride 110 H Carbon Dioxide 29 Anion Gap 5 L BUN 27.9 H Creatinine 1.0 Est GFR (CKD-EPI)AfAm 61.19 Est GFR (CKD-EPI)NonAf 52.79 POC Glucometer Random Glucose 91 Calcium 8.1 L Phosphorus 2.3 L Magnesium 2.3 ASSESSMENT AND PLAN: Altered Mental Status likely Toxic Metabolic Encephalopathy Pneumonia Severe Sepsis Lactic Acidosis Thrombocytopenia Acute Kidney Injury Rhabdomyolysis HTN DM Parkinsons Dementia - ABX per ID - monitor urine output, creatinine - O2 to keep Spo2 >90% - Empiric daily medrol - aspiration precautions - DVT prophylaxis Dr Collins
[2019-06-03] MEDS: PANTOPRAZOLE SODIUM 40 MG VIAL IVPUSH SCH (09:44)
[2019-06-03] MEDS: methylPREDNISolone NA SUCC 40 MG/1 ML VIAL IVPUSH SCH (09:47)
[2019-06-03] MEDS: AZITHROMYCIN IVPB 500 MG/250 ML BAG IVPB SCH (09:55)
[2019-06-03] MEDS ORDERED: VANCOMYCIN 1 GRAM (PRE-DOCKED) 1,000 MG/250 ML BAG IVPB ONE (10:13)
[2019-06-03] MEDS ORDERED: predniSONE 5 MG/5 ML ORAL SOLN- UNIT-DOSE CUP PO SCH (10:15)
--- NOTE | 2019-06-03 11:06 | PN ---
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 (short form) - Note 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: s: sleeping, not rousable Current Medications Albuterol/Ipratropium (Duoneb -) 1 amp NEB RTID [facility] Last Admin: 06/02/19 08:15 Dose: 1 amp Chlorhexidine Gluconate (Hibiclens For Decolonization -) 1 applic TP HS [facility] Heparin Sodium (Porcine) (Heparin -) 5,000 unit SQ TID [facility] [place] Last Admin: 06/02/19 06:44 Dose: 5,000 unit Lactated Ringer's (Lactated Ringers Solution) 1,000 ml in 1,000 mls @ 100 mls/ hr IV ASDIR [facility] [place] Last Admin: 06/02/19 09:08 Dose: 100 mls/hr Azithromycin (Zithromax 500mg Ivpb (Pre-Docked)) 500 mg in 250 mls @ 250 mls/ hr IVPB DAILY [facility] Last Admin: 06/02/19 10:02 Dose: 250 mls/hr Piperacillin Sod/Tazobactam (Sod 3.375 gm/ Dextrose) 50 mls @ 100 mls/hr IVPB Q8H-IV [facility] [place]; Protocol Last Admin: 06/02/19 09:09 Dose: 100 mls/hr Methylprednisolone Sodium Succinate (Solu-Medrol -) 40 mg IVPUSH DAILY [facility] [place] Last Admin: 06/02/19 09:10 Dose: 40 mg Mupirocin (Bactroban Ointment (For Decolonization) -) 1 applic NS BID [facility] [place] Stop: 06/06/19 09:59 Non-Formulary Medication (Rotigotine [Neupro]) 1 each TD DAILY [facility] Pantoprazole Sodium (Protonix Iv) 40 mg IVPUSH DAILY [facility] Last Admin: 06/02/19 09:09 Dose: 40 mg Vital Signs Period Temp Pulse Resp BP Sys/Campbell Pulse Ox Last 24 Hr 97.8 F-98.9 F 81-90 18-20 135-150/68-94 98-100 Constitutional: Yes: No Distress, Calm Eyes: Yes: Conjunctiva Clear, EOM Intact HENT: Yes: Atraumatic, Normocephalic Neck: Yes: Supple, Trachea Midline Respiratory: Yes: Regular, Diminished Gastrointestinal: Yes: Normal Bowel Sounds, Soft Cardiovascular: Yes: Regular Rate and Rhythm JVD: No Extremities: No: Cold Edema: No Integumentary: No: Jaundice Neurological: Yes: Lethargy Psychiatric: No: Agitated Assessment/Plan EKG sinus tachycardia, RBBB, LAFB, LVH echo 05/2019 nl LV/RV function, impaired relaxation, elevated filling pressures, RV not well visualized, mild to mod MR, mild mod TR CXR: kenyon infiltrates and congestive changes predominantly RUL and L base PNA, sepsis - manage per critical care, ID - findings on CXR more suggestive of PNA, although congestive changes possible in setting of receiving IVF - nl LV function on echo - cautious use of IVF, hold lasix. monitor respiratory status HTN - holding diovan in setting of JOS DM - manage per primary dementia, parkinson's - manage per primary JOS, rhabdo - renal following - CK downtrending with IVF - Cr improving - monitor volume status while receiving IVF
--- NOTE | 2019-06-03 11:17 | PN ---
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, Physician History of Present Illness: Pt seen and examined at bedside. She remains lethargic. - Current Medication List Current Medications: Active Medications Albuterol/Ipratropium (Duoneb -) 1 amp NEB RTID [facility] Last Admin: 06/03/19 08:30 Dose: 1 amp Carbidopa/Levodopa (Sinemet *Cr* 50/200 -) 1 combo PO TID [facility] Last Admin: 06/03/19 09:43 Dose: 1 combo Chlorhexidine Gluconate (Hibiclens For Decolonization -) 1 applic TP HS [facility] Heparin Sodium (Porcine) (Heparin -) 5,000 unit SQ TID [facility] Last Admin: 06/03/19 07:15 Dose: 5,000 unit Lactated Ringer's (Lactated Ringers Solution) 1,000 ml in 1,000 mls @ 100 mls/ hr IV ASDIR [facility] Last Admin: 06/02/19 13:23 Dose: Not Given Azithromycin (Zithromax 500mg Ivpb (Pre-Docked)) 500 mg in 250 mls @ 250 mls/ hr IVPB DAILY [facility] Last Admin: 06/03/19 09:55 Dose: 250 mls/hr Piperacillin Sod/Tazobactam (Sod 3.375 gm/ Dextrose) 50 mls @ 100 mls/hr IVPB Q8H-IV [facility]; Protocol Last Admin: 06/03/19 09:00 Dose: 100 mls/hr Vancomycin HCl (Vancomycin (Pre-Docked)) 1,000 mg in 250 mls @ 166.667 mls/hr IVPB ONCE ONE; Protocol Stop: 06/03/19 11:42 Mupirocin (Bactroban Ointment (For Decolonization) -) 1 applic NS BID [facility] Stop: 06/06/19 09:59 Non-Formulary Medication (Rotigotine [Neupro]) 1 each TD DAILY [facility] Pantoprazole Sodium (Protonix Iv) 40 mg IVPUSH DAILY [facility] Last Admin: 06/03/19 09:44 Dose: 40 mg Prednisone (Deltasone -) 20 mg NGT DAILY [facility] - Objective Vital Signs: Vital Signs Temperature 98.7 F 06/03/19 10:00 Pulse Rate 81 06/03/19 10:00 Respiratory Rate 18 06/03/19 10:00 Blood Pressure 141/75 06/03/19 10:00 O2 Sat by Pulse Oximetry (%) 99 06/03/19 05:48 Constitutional: Yes: Calm Eyes: Yes: Conjunctiva Clear HENT: Yes: Atraumatic Neck: Yes: Supple Cardiovascular: Yes: S1, S2 Respiratory: Yes: CTA Bilaterally Gastrointestinal: Yes: Soft Genitourinary: Yes: Incontinence Musculoskeletal: Yes: Muscle Weakness Edema: No Neurological: Yes: Lethargy Labs: CBC, BMP 06/03/19 06:00 06/03/19 06:00 INR, PTT INR 1.16 (0.83-1.09) H 06/01/19 09:40 Problem List - Problems (1) Rhabdomyolysis Code(s): M62.82 - RHABDOMYOLYSIS (2) JOS (acute kidney injury) Code(s): N17.9 - ACUTE KIDNEY FAILURE, UNSPECIFIED (3) Pneumonia Code(s): J18.9 - PNEUMONIA, UNSPECIFIED ORGANISM (4) Sepsis Code(s): A41.9 - SEPSIS, UNSPECIFIED ORGANISM Assessment/Plan Current Medications Generic Name Dose Route Start Last Admin Trade Name Freq PRN Reason Stop Dose Admin Albuterol/Ipratropium 1 amp 06/02/19 08:00 06/03/19 08:30 Duoneb - NEB 1 amp RTID [facility] Administration Carbidopa/Levodopa 1 combo 06/03/19 07:30 06/03/19 09:43 Sinemet *Cr* 50/200 - PO 1 combo TID [facility] Administration Chlorhexidine Gluconate 1 applic 06/02/19 22:00 Hibiclens For Decolonization - TP HS [facility] Heparin Sodium (Porcine) 5,000 unit 06/02/19 06:00 06/03/19 07:15 Heparin - SQ 5,000 unit TID [facility] Administration Lactated Ringer's 1,000 ml in 1,000 mls @ 100 mls/hr 06/01/19 12:00 06/02/19 13:23 Lactated Ringers Solution IV Not Given ASDIR [facility] Azithromycin 500 mg in 250 mls @ 250 mls/hr 06/02/19 10:00 06/03/19 09:55 Zithromax 500mg Ivpb (Pre-Docked) IVPB 250 mls/hr DAILY [facility] Administration Piperacillin Sod/Tazobactam 50 mls @ 100 mls/hr 06/02/19 02:00 06/03/19 09:00 Sod 3.375 gm/ Dextrose IVPB 100 mls/hr Q8H-IV [facility] Administration Protocol Vancomycin HCl 1,000 mg in 250 mls @ 166.667 mls/hr 06/03/19 10:13 Vancomycin (Pre-Docked) IVPB 06/03/19 11:42 ONCE ONE Protocol Mupirocin 1 applic 06/02/19 10:00 Bactroban Ointment (For Decolonization) - NS 06/06/19 09:59 BID [facility] Non-Formulary Medication 1 each 06/02/19 10:00 Rotigotine [Neupro] TD DAILY [facility] Pantoprazole Sodium 40 mg 06/02/19 10:00 06/03/19 09:44 Protonix Iv IVPUSH 40 mg DAILY [facility] Administration Prednisone 20 mg 06/04/19 10:00 Deltasone - NGT DAILY [facility] Impression 1. JOS 2. sepsis 3. PNA 4. dementia 5. parkinsons 6. lactic acidosis 7. rhabdo 8. DM 9. HTN Plan - change fluids to 1/2 ns with potassium - monitor sodium - monitor volume status - abx per primary team - check cpk, has been improving
[2019-06-03] MEDS: SODIUM CHLORIDE 0.45%/POT 20 MEQ/1,000 ML INFUS.BAG IV SCH (12:47)
[2019-06-03] MEDS ORDERED: POTASSIUM PHOSPHATE 15 MM in DEXTROSE 5%-WATER - 250 ML IVPB ONE (13:00)
--- NOTE | 2019-06-03 15:21 | PN ---
Physical Exam: SUBJECTIVE: Patient seen and examined. Pt does not open eyes but tries to speak. OBJECTIVE: Vital Signs Period Temp Pulse Resp BP Sys/Campbell Pulse Ox Last 24 Hr 97.8 F-98.9 F 81-90 18-20 138-150/73-94 98-100 GENERAL: Patient moves eyelids and mouths words HEAD: Normal with no signs of trauma. EYES: PERRL, conjunctiva clear. ENT: Ears normal, nares patent, dry mucous membranes. NECK: Trachea midline LUNGS: Clear to auscultation anteriorly HEART: Regular rate and rhythm, no murmur ABDOMEN: Soft, nondistended, normoactive bowel sounds EXTREMITIES: Warm, well-perfused, trace edema. NEUROLOGICAL: Cranial nerves II through XII grossly intact. PSYCH: Normal mood, normal affect. SKIN: Warm, dry, normal turgor Laboratory Results - last 24 hr 06/02/19 06/02/19 06/03/19 17:42 21:28 04:26 WBC RBC Hgb Hct MCV MCH MCHC RDW Plt Count MPV Sodium Potassium Chloride Carbon Dioxide Anion Gap BUN Creatinine Est GFR (CKD-EPI)AfAm Est GFR (CKD-EPI)NonAf POC Glucometer 158 145 98 Random Glucose Calcium Phosphorus Magnesium 06/03/19 06/03/19 06/03/19 06:00 06:00 12:37 WBC 15.6 H RBC 4.28 Hgb 9.6 L Hct 30.6 L MCV 71.4 L MCH 22.4 L MCHC 31.4 L RDW 17.2 H Plt Count 210 D MPV 9.5 Sodium 144 Potassium 3.5 Chloride 110 H Carbon Dioxide 29 Anion Gap 5 L BUN 27.9 H Creatinine 1.0 Est GFR (CKD-EPI)AfAm 61.19 Est GFR (CKD-EPI)NonAf 52.79 POC Glucometer 167 Random Glucose 91 Calcium 8.1 L Phosphorus 2.3 L Magnesium 2.3 Active Medications Generic Name Dose Route Start Last Admin Trade Name Freq PRN Reason Stop Dose Admin Albuterol/Ipratropium 1 amp 06/02/19 08:00 06/03/19 13:20 Duoneb - NEB 1 amp RTID [facility] Administration Carbidopa/Levodopa 1 combo 06/03/19 07:30 06/03/19 13:35 Sinemet *Cr* 50/200 - PO 1 combo TID [facility] Administration Chlorhexidine Gluconate 1 applic 06/02/19 22:00 Hibiclens For Decolonization - TP HS [facility] Heparin Sodium (Porcine) 5,000 unit 06/02/19 06:00 06/03/19 13:35 Heparin - SQ 5,000 unit TID [facility] Administration Azithromycin 500 mg in 250 mls @ 250 mls/hr 06/02/19 10:00 06/03/19 09:55 Zithromax 500mg Ivpb (Pre-Docked) IVPB 250 mls/hr DAILY [facility] Administration Piperacillin Sod/Tazobactam 50 mls @ 100 mls/hr 06/02/19 02:00 06/03/19 09:00 Sod 3.375 gm/ Dextrose IVPB 100 mls/hr Q8H-IV [facility] Administration Protocol Potassium Chloride/Sodium Chloride 20 meq in 1,000 mls @ 83 mls/hr 06/03/19 11 :30 06/03/19 12:47 1/2ns+20meq Kcl IV 83 mls/hr ASDIR [facility] Administration Potassium Phosphate 15 mm/ 255 mls @ 42.5 mls/hr 06/03/19 13:00 06/03/19 14: 25 Dextrose IVPB 06/03/19 18:59 42.5 mls/hr ONCE ONE Administration Mupirocin 1 applic 06/02/19 10:00 Bactroban Ointment (For Decolonization) - NS 06/06/19 09:59 BID [facility] Non-Formulary Medication 1 each 06/02/19 10:00 Rotigotine [Neupro] TD DAILY [facility] Pantoprazole Sodium 40 mg 06/02/19 10:00 06/03/19 09:44 Protonix Iv IVPUSH 40 mg DAILY [facility] Administration Prednisone 20 mg 06/04/19 10:00 Deltasone - NGT DAILY [facility] ASSESSMENT/PLAN: Ms. Prescott is an 79y/o female with Parkinson's and dementia who presents with AMS and cough x 4 days. Pt was hypoxic to the 80s at ED presentation. #acute hypoxic respiratory failure 2/2 multilobar PNA and sepsis -CXR b/l infiltrates- RUL and left base -flu negative -echo- normal EF, impaired relaxation, elevated filling pressures, TR, MR -duonebs TID scheduled -prednisone 20mg daily -zosyn 3.375g Q8H day 3 -zithromax 500mg IV daily day 3 -vancomycin 1g BID -ID following #AMS toxic metabolic encephalopathy vs less likely CVA -CT head negative for acute processes -urine cx negative -blood cx pending- GNB coag negative in 1 bottle, new cultures pending -NGT placed for feeds- Jevity -dietary following #leukocytosis -from infection vs steroid use -mild improvement -will monitor #JOS, resolved -1/2 NS with K -nephro following #Parkinson's and dementia -continue Siniment #mild hypophosphatemia -monitor #lactic acidosis, resolved #transaminitis, improved DVT ppx heparin GI ppx protonix FEN 1/2 NS + K at 83mL/hr monitor K, Phos NPO Visit type - Emergency Visit Emergency Visit: Yes ED Registration Date: 06/01/19 Care time: The patient presented to the Emergency Department on the above date and was hospitalized for further evaluation of their emergent condition. - New Patient This patient is new to me today: No - Critical Care Critical Care patient: No - Discharge Referral Referred to [facility] No ATTENDING PHYSICIAN STATEMENT I saw and evaluated the patient. I reviewed the resident's note and discussed the case with the resident. I agree with the resident's findings and plan as documented. SUBJECTIVE: OBJECTIVE: ASSESSMENT AND PLAN:
--- NOTE | 2019-06-03 19:37 | PN ---
Teaching Attending Note Name of Resident: Giovani Randle ATTENDING PHYSICIAN STATEMENT I saw and evaluated the patient. I reviewed the resident's note and discussed the case with the resident. I agree with the resident's findings and plan as documented. SUBJECTIVE: No events over night OBJECTIVE: NAD awake, resists eye opening . says few words MMM NG tube in CV: RRR Lungs: CTAB Abd: sfot, NT, Nd , NL BS Ext : No edema sacral decub stage 2 with areas where it is unstagable ASSESSMENT AND PLAN: 79 y/o lady with h/o Parkinson Disease and dementia who presented with AMS. 1- PNA 2- + blood cx coag neg staph . likely contamination 3- JOS : improved. 4- Rhabdo 5- thrombocytopenia: resolved 6- h/o HTN 7- h/o DM 8- AMS: acute metabolic encephalopathy 9- h/o dementia 10 - microcytic anemia plan : - Cont zosyn. - gave one dsoe of vanco before blood cx resulted coag neg - Id on board - cont IVF - monitor electrolytes - Monitor cbc and renal function - microcytic anemia : iron studies - start TF through NG - unable to reach family to d/w them PEG - cont heparin sq - cont SSI
[2019-06-03] MEDS ORDERED: PT OWN MED DRAWER 7, Y5N ONE (21:25)
[2019-06-04] MEDS ORDERED: DEXTROSE 5%-WATER - 50 ML IVPB ONE ×3 (03:01→16:51)
[2019-06-04] MEDS ORDERED: PIPERACILLIN/TAZOBACTAM 3.375 GM VIAL IVPB ONE ×3 (03:01→16:50)
[2019-06-04] MEDS: PIPERACILLIN/TAZOB 3.375 GM 3.375 GM in DEXTROSE 5%-WATER - 50 ML IVPB SCH ×3 (03:37→18:13)
[2019-06-04] MEDS: HEPARIN NA (PORCINE) 5,000 UNITS/ML 1ML VIAL SQ SCH ×3 (05:01→21:50)
[2019-06-04 08:02] LABS: ALBUMIN 2.1 g/dl (3.4-5.0); ALK PHOS 86 U/L (45-117); ANION GAP 6 MMOL/L (8-16); BILIRUBIN,TOTAL 0.4 mg/dL (0.2-1); BLOOD UREA NITROGEN 25.6 mg/dL (7-18); CALCIUM 8.2 mg/dL (8.5-10.1); CHLORIDE 106 mmol/L (98-107); CO2 30 mmol/L (21-32); GLUCOSE,RANDOM 125 mg/dL (74-106); IRON SERUM 52 ug/dL (50-175); MAGNESIUM 2.2 mg/dL (1.8-2.4); PHOSPHOROUS 2.8 mg/dL (2.5-4.9); POTASSIUM 3.7 mmol/L (3.5-5.1); SGOT/AST 32 U/L (15-37); SGPT/ALT 18 U/L (13-61); SODIUM 141 mmol/L (136-145); TOTAL IRON BINDING CAPACITY 161 ug/dL (250-450)
[2019-06-04] MEDS: ALBUTEROL SO4 2.5/IPRATROPIUM 0.5 INH SOL 3 ML VIAL.NEB. NEB SCH ×2 (08:18→17:20)
[2019-06-04] MEDS ORDERED: PT OWN MED DRAWER 7, Y5N ONE ×6 (08:36→22:21)
[2019-06-04] MEDS: PANTOPRAZOLE SODIUM 40 MG VIAL IVPUSH SCH (09:04)
[2019-06-04 09:48] LABS: HEMATOCRIT 31.6 % (32.4-45.2); HEMOGLOBIN 9.8 GM/dL (10.7-15.3); MCH 22.6 pg (25.7-33.7); MCHC 31.1 g/dl (32.0-36.0); MEAN CELL VOLUME 72.6 fl (80-96); MEAN PLT VOLUME 9.8 fl (7.5-11.1); PLATELET COUNT 246 K/MM3 (134-434); RBC 4.35 M/mm3 (3.60-5.2); WHITE BLOOD COUNT 15.1 K/mm3 (4.0-10.0)
[2019-06-04] MEDS ORDERED: predniSONE 5 MG/5 ML ORAL SOLN- UNIT-DOSE CUP NGT SCH (10:00)
[2019-06-04] MEDS ORDERED: predniSONE 5 MG/5 ML ORAL SOLN- UNIT-DOSE CUP PO SCH (10:00)
[2019-06-04 10:26] LABS: ARTERIAL BLOOD GAS BASE EXCESS 5.1 meq/l (-2-2); ARTERIAL BLOOD GAS PCO2 42.2 mmHg (35-45); ARTERIAL BLOOD GAS PO2 183 mmHg (80-100); ARTERIAL BLOOD GAS pH 7.45 (7.35-7.45)
--- NOTE | 2019-06-04 10:36 | PN ---
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 (short form) - Note 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: s: sleeping, not rousable Current Medications Generic Name Dose Route Start Last Admin Trade Name Freq PRN Reason Stop Dose Admin Albuterol/Ipratropium 1 amp 06/02/19 08:00 06/04/19 08:18 Duoneb - NEB 1 amp RTID [facility] Administration Carbidopa/Levodopa 1 combo 06/03/19 07:30 06/04/19 05:01 Sinemet *Cr* 50/200 - PO Not Given TID [facility] Heparin Sodium (Porcine) 5,000 unit 06/02/19 06:00 06/04/19 05:01 Heparin - SQ 5,000 unit TID [facility] Administration Azithromycin 500 mg in 250 mls @ 250 mls/hr 06/02/19 10:00 06/03/19 09:55 Zithromax 500mg Ivpb (Pre-Docked) IVPB 250 mls/hr DAILY [facility] Administration Piperacillin Sod/Tazobactam 50 mls @ 100 mls/hr 06/02/19 02:00 06/04/19 09:05 Sod 3.375 gm/ Dextrose IVPB 100 mls/hr Q8H-IV [facility] Administration Protocol Potassium Chloride/Sodium Chloride 20 meq in 1,000 mls @ 83 mls/hr 06/03/19 11 :30 06/03/19 12:47 1/2ns+20meq Kcl IV 83 mls/hr ASDIR [facility] Administration Rotigotine [Neupro] 1 each 06/04/19 10:00 06/04/19 09:04 6mg/24hrs TD 1 each Transdermal System DAILY [facility] Administration Pantoprazole Sodium 40 mg 06/02/19 10:00 06/04/19 09:04 Protonix Iv IVPUSH 40 mg DAILY [facility] Administration Prednisone 20 mg 06/04/19 10:00 06/04/19 09:04 Deltasone - NGT 20 mg DAILY [facility] Administration Vital Signs Period Temp Pulse Resp BP Sys/Campbell Pulse Ox Last 24 Hr 97.1 F-98.9 F 77-84 19-20 110-148/55-94 95-98 Constitutional: Yes: No Distress, Calm Neck: Yes: Supple, Trachea Midline Respiratory: Yes: Regular, Diminished Gastrointestinal: Yes: Normal Bowel Sounds, Soft Cardiovascular: Yes: Regular Rate and Rhythm JVD: No Extremities: No: Cold Edema: No Integumentary: No: Jaundice Neurological: Yes: Lethargy Psychiatric: No: Agitated CBC, BMP 06/04/19 06:30 06/04/19 06:30 Assessment/Plan EKG sinus tachycardia, RBBB, LAFB, LVH echo 05/2019 nl LV/RV function, impaired relaxation, elevated filling pressures, RV not well visualized, mild to mod MR, mild mod TR CXR: kenyon infiltrates and congestive changes predominantly RUL and L base PNA, sepsis - manage per critical care, ID - findings on CXR more suggestive of PNA, although congestive changes possible in setting of receiving IVF - nl LV function on echo - cautious use of IVF, hold lasix. monitor respiratory status HTN - holding diovan in setting of JOS, bp has been stable DM - manage per primary dementia, parkinson's - manage per primary JOS, rhabdo - renal following - CK downtrending with IVF - Cr improving - monitor volume status while receiving IVF
[2019-06-04] MEDS: AZITHROMYCIN IVPB 500 MG/250 ML BAG IVPB SCH (10:48)
[2019-06-04] MEDS: SODIUM CHLORIDE 0.45%/POT 20 MEQ/1,000 ML INFUS.BAG IV SCH (10:52)
--- NOTE | 2019-06-04 10:57 | PN ---
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 (short form) - Note 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: Remains lethargic. Breathing is non-labored. No acute events overnight. Intake & Output 06/01/19 06/02/19 06/03/19 06/04/19 23:59 23:59 23:59 23:59 Intake Total 19190 2520 1045 Balance 19190 1045 Weight 139 lb 6.4 oz 137 lb 137 lb 6.4 oz Last Vital Signs Temp Pulse Resp BP Pulse Ox 97.9 F 77 20 110/55 L 95 06/04/19 06:00 06/04/19 06:00 06/04/19 06:00 06/04/19 06:00 06/03/19 22:00 Active Medications Albuterol/Ipratropium (Duoneb -) 1 amp NEB RTID [facility] Last Admin: 06/04/19 08:18 Dose: 1 amp Carbidopa/Levodopa (Sinemet *Cr* 50/200 -) 1 combo PO TID [facility] Last Admin: 06/04/19 05:01 Dose: Not Given Heparin Sodium (Porcine) (Heparin -) 5,000 unit SQ TID [facility] Last Admin: 06/04/19 05:01 Dose: 5,000 unit Azithromycin (Zithromax 500mg Ivpb (Pre-Docked)) 500 mg in 250 mls @ 250 mls/ hr IVPB DAILY [facility] Last Admin: 06/04/19 10:48 Dose: 250 mls/hr Piperacillin Sod/Tazobactam (Sod 3.375 gm/ Dextrose) 50 mls @ 100 mls/hr IVPB Q8H-IV [facility]; Protocol Last Admin: 06/04/19 09:05 Dose: 100 mls/hr Potassium Chloride/Sodium Chloride (1/2ns+20meq Kcl) 20 meq in 1,000 mls @ 83 mls/hr IV ASDIR [facility] Last Admin: 06/04/19 10:52 Dose: 83 mls/hr Rotigotine [Neupro] 6mg/24hrs Transdermal System 1 each TD DAILY [facility] Last Admin: 06/04/19 09:04 Dose: 1 each Pantoprazole Sodium (Protonix Iv) 40 mg IVPUSH DAILY [facility] Last Admin: 06/04/19 09:04 Dose: 40 mg Prednisone (Deltasone -) 20 mg NGT DAILY [facility] Last Admin: 06/04/19 09:04 Dose: 20 mg Gen: lethargic, breathing nonlabored Heart: RRR Lung: scattered rhonchi Abd: soft, nontender Ext: no edema Laboratory Results - last 24 hr 06/03/19 06/03/19 06/04/19 12:37 17:51 01:01 WBC RBC Hgb Hct MCV MCH MCHC RDW Plt Count MPV Anticoagulation Therapy Puncture Site ABG pH ABG pCO2 at Pt Temp ABG pO2 at Pt Temp ABG HCO3 ABG O2 Sat (Measured) ABG O2 Content ABG Base Excess Gaetano Test O2 Delivery Device Oxygen Flow Rate Vent Mode Vent Rate Mechanical Rate Pressure Support Vent Sodium Potassium Chloride Carbon Dioxide Anion Gap BUN Creatinine Est GFR (CKD-EPI)AfAm Est GFR (CKD-EPI)NonAf POC Glucometer 167 159 139 Random Glucose Calcium Phosphorus Magnesium Iron TIBC Iron Saturation Unsaturated IBC Ferritin Total Bilirubin AST ALT Alkaline Phosphatase Creatine Kinase Creatine Kinase Index CK-MB (CK-2) Total Protein Albumin 06/04/19 06/04/19 06/04/19 04:57 06:30 06:30 WBC 15.1 H RBC 4.35 Hgb 9.8 L Hct 31.6 L MCV 72.6 L MCH 22.6 L MCHC 31.1 L RDW 17.0 H Plt Count 246 MPV 9.8 Anticoagulation Therapy Puncture Site ABG pH ABG pCO2 at Pt Temp ABG pO2 at Pt Temp ABG HCO3 ABG O2 Sat (Measured) ABG O2 Content ABG Base Excess Gaetano Test O2 Delivery Device Oxygen Flow Rate Vent Mode Vent Rate Mechanical Rate Pressure Support Vent Sodium 141 Potassium 3.7 Chloride 106 Carbon Dioxide 30 Anion Gap 6 L BUN 25.6 H Creatinine 1.0 Est GFR (CKD-EPI)AfAm 61.19 Est GFR (CKD-EPI)NonAf 52.79 POC Glucometer 149 Random Glucose 125 H Calcium 8.2 L Phosphorus 2.8 Magnesium 2.2 Iron 52 TIBC 161 L Iron Saturation 32 Unsaturated IBC 109 L Ferritin 548.5 H Total Bilirubin 0.4 AST 32 ALT 18 Alkaline Phosphatase 86 Creatine Kinase 281 H Creatine Kinase Index No Result Required. CK-MB (CK-2) < 1.0 Total Protein 6.0 L Albumin 2.1 L 06/04/19 10:15 WBC RBC Hgb Hct MCV MCH MCHC RDW Plt Count MPV Anticoagulation Therapy No Result Required. Puncture Site No Result Required. ABG pH 7.45 ABG pCO2 at Pt Temp 42.2 ABG pO2 at Pt Temp 183 H ABG HCO3 29.1 H ABG O2 Sat (Measured) 99.0 H ABG O2 Content 13.8 ABG Base Excess 5.1 H Gaetano Test No Result Required. O2 Delivery Device No Result Required. Oxygen Flow Rate No Result Required. Vent Mode No Result Required. Vent Rate No Result Required. Mechanical Rate No Result Required. Pressure Support Vent No Result Required. Sodium Potassium Chloride Carbon Dioxide Anion Gap BUN Creatinine Est GFR (CKD-EPI)AfAm Est GFR (CKD-EPI)NonAf POC Glucometer Random Glucose Calcium Phosphorus Magnesium Iron TIBC Iron Saturation Unsaturated IBC Ferritin Total Bilirubin AST ALT Alkaline Phosphatase Creatine Kinase Creatine Kinase Index CK-MB (CK-2) Total Protein Albumin ASSESSMENT AND PLAN: Altered Mental Status likely Toxic Metabolic Encephalopathy Pneumonia Severe Sepsis Lactic Acidosis Thrombocytopenia Acute Kidney Injury Rhabdomyolysis HTN DM Parkinsons Dementia - ABX per ID - monitor urine output, creatinine - O2 to keep Spo2 >90% - Noted Prednisone - aspiration precautions - DVT prophylaxis Dr Collins
--- NOTE | 2019-06-04 13:31 | PN ---
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, [employer] - Note 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: Lethargic. Aspiration risk at this time. Performance unchanged. Continue NPO at this time. ngt in place. Pt is a full code. PEG removed 3 months ago. Family wishes?
[2019-06-04] MEDS ORDERED: CARBIDOPA/LEVODOPA 25/100 TABLET (FP) PO SCH ×2 (14:30→19:00)
--- NOTE | 2019-06-04 14:36 | PN ---
Teaching Attending Note Name of Resident: Pamela Wolf ATTENDING PHYSICIAN STATEMENT I saw and evaluated the patient. I reviewed the resident's note and discussed the case with the resident. I agree with the resident's findings and plan as documented. SUBJECTIVE: No events over night OBJECTIVE: NAD Resists eye opening. tachypnic. face mask on . MMM NG tube in CV: RRR, slightly tachy Lungs: good air entry b/l. course rales at bases Abd: soft, NT, Nd , NL BS Ext: No edema Sacral decub stage 2 with areas where it is unstagable ASSESSMENT AND PLAN: 79 y/o lady with h/o Parkinson Disease and dementia who presented with AMS. 1- PNA 2- + blood cx coag neg staph . likely contamination 3- JOS : improved. 4- Rhabdo 5- thrombocytopenia: resolved 6- h/o HTN 7- h/o DM 8- AMS: acute metabolic encephalopathy 9- h/o dementia 10 - microcytic anemia Plan : - Due to decreased responsiveness today, ABG was done. no hypercapnia was found. Cxray was done too and looks better than the one on . - stop TF for now . - add mucomyst and Albuterol Nebs - case was d/w Dr. Garcias who agrees with management. - order EKG due to slight tachycardia - Cont zosyn and Azithro. - blood cx in one set 06/01 coag neg. likely contaminant. follow up the repeat blood cx - will ask ID to reevaluate - cont IVF - monitor electrolytes - Monitor cbc and renal function - microcytic anemia :iron studeis might indicate ACD, but need to be redone as out pt - resume Sinemet which might help with her responsiveness - cont heparin sq - cont SSI
[2019-06-04] MEDS ORDERED: ALBUTEROL SO4 0.083% IH SOL 2.5 MG/3 ML VIAL.NEB. NEB PRN ×2 (14:38→21:42)
--- NOTE | 2019-06-04 14:43 | PN ---
Physical Exam: SUBJECTIVE: Patient seen and examined. She is minimally responsive. OBJECTIVE: Vital Signs Period Temp Pulse Resp BP Sys/Campbell Pulse Ox Last 24 Hr 97.1 F-98.9 F 77-94 19-20 110-148/55-94 95-99 GENERAL: Patient moves eyelids HEAD: Normal with no signs of trauma. EYES: PERRL, conjunctiva clear. ENT: Ears normal, nares patent, dry mucous membranes. NECK: Trachea midline LUNGS: Scattered rhonchi b/l HEART: Regular rate and rhythm, no murmur ABDOMEN: Soft, nondistended, normoactive bowel sounds EXTREMITIES: Warm, well-perfused, trace edema. NEUROLOGICAL: Cranial nerves II through XII grossly intact. PSYCH: Normal mood, normal affect. SKIN: Warm, dry, normal turgor Laboratory Results - last 24 hr 06/03/19 06/04/19 06/04/19 17:51 01:01 04:57 WBC RBC Hgb Hct MCV MCH MCHC RDW Plt Count MPV Anticoagulation Therapy Puncture Site ABG pH ABG pCO2 at Pt Temp ABG pO2 at Pt Temp ABG HCO3 ABG O2 Sat (Measured) ABG O2 Content ABG Base Excess Gaetano Test O2 Delivery Device Oxygen Flow Rate Vent Mode Vent Rate Mechanical Rate Pressure Support Vent Sodium Potassium Chloride Carbon Dioxide Anion Gap BUN Creatinine Est GFR (CKD-EPI)AfAm Est GFR (CKD-EPI)NonAf POC Glucometer 159 139 149 Random Glucose Lactic Acid Calcium Phosphorus Magnesium Iron TIBC Iron Saturation Unsaturated IBC Ferritin Total Bilirubin AST ALT Alkaline Phosphatase Creatine Kinase Creatine Kinase Index CK-MB (CK-2) Total Protein Albumin 06/04/19 06/04/19 06/04/19 06:30 06:30 10:15 WBC 15.1 H RBC 4.35 Hgb 9.8 L Hct 31.6 L MCV 72.6 L MCH 22.6 L MCHC 31.1 L RDW 17.0 H Plt Count 246 MPV 9.8 Anticoagulation Therapy No Result Required. Puncture Site No Result Required. ABG pH 7.45 ABG pCO2 at Pt Temp 42.2 ABG pO2 at Pt Temp 183 H ABG HCO3 29.1 H ABG O2 Sat (Measured) 99.0 H ABG O2 Content 13.8 ABG Base Excess 5.1 H Gaetano Test No Result Required. O2 Delivery Device No Result Required. Oxygen Flow Rate No Result Required. Vent Mode No Result Required. Vent Rate No Result Required. Mechanical Rate No Result Required. Pressure Support Vent No Result Required. Sodium 141 Potassium 3.7 Chloride 106 Carbon Dioxide 30 Anion Gap 6 L BUN 25.6 H Creatinine 1.0 Est GFR (CKD-EPI)AfAm 61.19 Est GFR (CKD-EPI)NonAf 52.79 POC Glucometer Random Glucose 125 H Lactic Acid Calcium 8.2 L Phosphorus 2.8 Magnesium 2.2 Iron 52 TIBC 161 L Iron Saturation 32 Unsaturated IBC 109 L Ferritin 548.5 H Total Bilirubin 0.4 AST 32 ALT 18 Alkaline Phosphatase 86 Creatine Kinase 281 H Creatine Kinase Index No Result Required. CK-MB (CK-2) < 1.0 Total Protein 6.0 L Albumin 2.1 L 06/04/19 06/04/19 10:55 11:02 WBC RBC Hgb Hct MCV MCH MCHC RDW Plt Count MPV Anticoagulation Therapy Puncture Site ABG pH ABG pCO2 at Pt Temp ABG pO2 at Pt Temp ABG HCO3 ABG O2 Sat (Measured) ABG O2 Content ABG Base Excess Gaetano Test O2 Delivery Device Oxygen Flow Rate Vent Mode Vent Rate Mechanical Rate Pressure Support Vent Sodium Potassium Chloride Carbon Dioxide Anion Gap BUN Creatinine Est GFR (CKD-EPI)AfAm Est GFR (CKD-EPI)NonAf POC Glucometer 197 Random Glucose Lactic Acid 1.1 Calcium Phosphorus Magnesium Iron TIBC Iron Saturation Unsaturated IBC Ferritin Total Bilirubin AST ALT Alkaline Phosphatase Creatine Kinase Creatine Kinase Index CK-MB (CK-2) Total Protein Albumin Active Medications Generic Name Dose Route Start Last Admin Trade Name Freq PRN Reason Stop Dose Admin Albuterol/Ipratropium 1 amp 06/02/19 08:00 06/04/19 08:18 Duoneb - NEB 1 amp RTID VASYL Administration Carbidopa/Levodopa 1 each 06/04/19 14:30 Sinemet 25/100 - PO TID VASYL Heparin Sodium (Porcine) 5,000 unit 06/02/19 06:00 06/04/19 13:07 Heparin - SQ 5,000 unit TID VASYL Administration Azithromycin 500 mg in 250 mls @ 250 mls/hr 06/02/19 10:00 06/04/19 10:48 Zithromax 500mg Ivpb (Pre-Docked) IVPB 250 mls/hr DAILY VASYL Administration Piperacillin Sod/Tazobactam 50 mls @ 100 mls/hr 06/02/19 02:00 06/04/19 09:05 Sod 3.375 gm/ Dextrose IVPB 100 mls/hr Q8H-IV VASYL Administration Protocol Potassium Chloride/Sodium Chloride 20 meq in 1,000 mls @ 83 mls/hr 06/03/19 11 :30 06/04/19 10:52 1/2ns+20meq Kcl IV 83 mls/hr ASDIR VASYL Administration Rotigotine [Neupro] 1 each 06/04/19 10:00 06/04/19 09:04 6mg/24hrs TD 1 each Transdermal System DAILY VASYL Administration Pantoprazole Sodium 40 mg 06/02/19 10:00 06/04/19 09:04 Protonix Iv IVPUSH 40 mg DAILY VASYL Administration Prednisone 20 mg 06/04/19 10:00 06/04/19 09:04 Deltasone - NGT 20 mg DAILY VASYL Administration ASSESSMENT/PLAN: Ms. Prescott is an 79y/o female with Parkinson's and dementia who presents with AMS and cough x 4 days. Pt was hypoxic to the 80s at ED presentation. #acute hypoxic respiratory failure 2/2 multilobar PNA and sepsis -CXR b/l infiltrates and atelectasis right lung and left lung base -flu negative -echo- normal EF, impaired relaxation, elevated filling pressures, TR, MR -duonebs TID -prednisone 20mg daily -zosyn 3.375g Q8H day 4 -zithromax 500mg IV daily day 4 -ID following #AMS toxic metabolic encephalopathy vs less likely CVA -CT head negative for acute processes -urine cx negative -blood cx pending- Staph coag negative in 1 bottle, new cultures prelim negative -NGT feeds held for possible aspiration- pt's daughter not currently interested in PEG but may re-evaluate later; previous tube was difficult to have removed per daughter -dietary following -speech following #leukocytosis -from infection vs steroid use -mild improvement continues -continue monitor #JOS, resolved -1/2 NS with K -nephro following #anemia of chronic disease -microcytosis but low TIBC, unsaturated IBC, and high ferritin #Parkinson's and dementia -continue Sinimet, modified dose for NG tube, @0700, 1200, 1900 #mild hypophosphatemia, resolved #lactic acidosis, resolved #transaminitis, improved DVT ppx heparin GI ppx protonix FEN 1/2 NS + K at 83mL/hr monitor labs hold NG feeds Visit type - Emergency Visit Emergency Visit: Yes ED Registration Date: 06/01/19 Care time: The patient presented to the Emergency Department on the above date and was hospitalized for further evaluation of their emergent condition. - New Patient This patient is new to me today: No - Critical Care Critical Care patient: No - Discharge Referral Referred to [facility] Med P.C[facility] No ATTENDING PHYSICIAN STATEMENT I saw and evaluated the patient. I reviewed the resident's note and discussed the case with the resident. I agree with the resident's findings and plan as documented. SUBJECTIVE: OBJECTIVE: ASSESSMENT AND PLAN:
[2019-06-04] MEDS ORDERED: CARBIDOPA/LEVODOPA 25/100 TABLET (FP) PO ONE (14:53)
[2019-06-04] MEDS ORDERED: FUROSEMIDE 40 MG/4 ML INJECTABLE VIAL IVPUSH ONE (14:55)
--- NOTE | 2019-06-04 14:55 | PN ---
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, Physician History of Present Illness: Pt seen and examined at bedside. She is tolerating feeds. - Current Medication List Current Medications: Active Medications Acetylcysteine (Mucomyst 20 Oral / Inh Use Only*) 600 mg NEB BID VASYL Albuterol Sulfate (Ventolin 0.083% Nebulizer Soln -) 1 amp NEB Q6H PRN PRN Reason: SHORT OF BREATH/WHEEZING Albuterol/Ipratropium (Duoneb -) 1 amp NEB RTID VASYL Last Admin: 06/04/19 08:18 Dose: 1 amp Carbidopa/Levodopa (Sinemet 25/100 -) 1 each PO TID@0700,1200,1900 VASYL Carbidopa/Levodopa (Sinemet 25/100 -) 1 each PO ONCE ONE Stop: 06/04/19 14:54 Heparin Sodium (Porcine) (Heparin -) 5,000 unit SQ TID VASYL Last Admin: 06/04/19 13:07 Dose: 5,000 unit Azithromycin (Zithromax 500mg Ivpb (Pre-Docked)) 500 mg in 250 mls @ 250 mls/ hr IVPB DAILY VASYL Last Admin: 06/04/19 10:48 Dose: 250 mls/hr Piperacillin Sod/Tazobactam (Sod 3.375 gm/ Dextrose) 50 mls @ 100 mls/hr IVPB Q8H-IV VASYL; Protocol Last Admin: 06/04/19 09:05 Dose: 100 mls/hr Potassium Chloride/Sodium Chloride (1/2ns+20meq Kcl) 20 meq in 1,000 mls @ 83 mls/hr IV ASDIR VASYL Last Admin: 06/04/19 10:52 Dose: 83 mls/hr Rotigotine [Neupro] 6mg/24hrs Transdermal System 1 each TD DAILY VASYL Last Admin: 06/04/19 09:04 Dose: 1 each Pantoprazole Sodium (Protonix Iv) 40 mg IVPUSH DAILY VASYL Last Admin: 06/04/19 09:04 Dose: 40 mg Prednisone (Deltasone -) 20 mg NGT DAILY VASYL Last Admin: 06/04/19 09:04 Dose: 20 mg - Objective Vital Signs: Vital Signs Temperature 98.8 F 06/04/19 10:00 Pulse Rate 94 H 06/04/19 10:00 Respiratory Rate 20 06/04/19 10:00 Blood Pressure 136/76 06/04/19 10:00 O2 Sat by Pulse Oximetry (%) 99 06/04/19 10:00 Constitutional: Yes: Calm Cardiovascular: Yes: S1, S2 Respiratory: Yes: On Nasal O2, Rhonchi Gastrointestinal: Yes: Soft Genitourinary: Yes: Incontinence Musculoskeletal: Yes: Muscle Weakness Edema: No Integumentary: Yes: WNL Neurological: Yes: Lethargy, Pre-Existing Deficit Labs: CBC, BMP 06/04/19 06:30 06/04/19 06:30 INR, PTT INR 1.16 (0.83-1.09) H 06/01/19 09:40 - ....Imaging Chest X-ray: Report Reviewed Problem List - Problems (1) Rhabdomyolysis Code(s): M62.82 - RHABDOMYOLYSIS (2) JOS (acute kidney injury) Code(s): N17.9 - ACUTE KIDNEY FAILURE, UNSPECIFIED (3) Pneumonia Code(s): J18.9 - PNEUMONIA, UNSPECIFIED ORGANISM (4) Sepsis Code(s): A41.9 - SEPSIS, UNSPECIFIED ORGANISM Assessment/Plan Current Medications Generic Name Dose Route Start Last Admin Trade Name Freq PRN Reason Stop Dose Admin Acetylcysteine 600 mg 06/04/19 22:00 Mucomyst 20 Oral / Inh Use Only* NEB BID VASYL Albuterol Sulfate 1 amp 06/04/19 14:38 Ventolin 0.083% Nebulizer Soln - NEB Q6H PRN SHORT OF BREATH/WHEEZING Albuterol/Ipratropium 1 amp 06/02/19 08:00 06/04/19 08:18 Duoneb - NEB 1 amp RTID VASYL Administration Carbidopa/Levodopa 1 each 06/04/19 19:00 Sinemet 25/100 - PO TID@0700,1200,1900 VASYL Carbidopa/Levodopa 1 each 06/04/19 14:53 Sinemet 25/100 - PO 06/04/19 14:54 ONCE ONE Heparin Sodium (Porcine) 5,000 unit 06/02/19 06:00 06/04/19 13:07 Heparin - SQ 5,000 unit TID VASYL Administration Azithromycin 500 mg in 250 mls @ 250 mls/hr 06/02/19 10:00 06/04/19 10:48 Zithromax 500mg Ivpb (Pre-Docked) IVPB 250 mls/hr DAILY VASYL Administration Piperacillin Sod/Tazobactam 50 mls @ 100 mls/hr 06/02/19 02:00 06/04/19 09:05 Sod 3.375 gm/ Dextrose IVPB 100 mls/hr Q8H-IV VASYL Administration Protocol Potassium Chloride/Sodium Chloride 20 meq in 1,000 mls @ 83 mls/hr 06/03/19 11 :30 06/04/19 10:52 1/2ns+20meq Kcl IV 83 mls/hr ASDIR VASYL Administration Rotigotine [Neupro] 1 each 06/04/19 10:00 06/04/19 09:04 6mg/24hrs TD 1 each Transdermal System DAILY VASYL Administration Pantoprazole Sodium 40 mg 06/02/19 10:00 06/04/19 09:04 Protonix Iv IVPUSH 40 mg DAILY VASYL Administration Prednisone 20 mg 06/04/19 10:00 06/04/19 09:04 Deltasone - NGT 20 mg DAILY VASYL Administration Laboratory Tests 06/01/19 06/01/19 06/04/19 04:07 08:55 06:30 Creatine Kinase 2540 H 2625 H 281 H Impression 1. JOS 2. sepsis 3. PNA 4. dementia 5. parkinsons 6. lactic acidosis 7. rhabdo 8. DM 9. HTN Plan - d/c fluids - cont feeds - lasix prn for congestion - cpk improved - abx per primary team
[2019-06-04] MEDS ORDERED: POTASSIUM CHLORIDE ORAL LIQUID 20 MEQ/15 ML NGT ONE (14:56)
[2019-06-04] MEDS ORDERED: ALBUTEROL SO4 0.083% IH SOL 2.5 MG/3 ML VIAL.NEB. NEB SCH (15:03)
[2019-06-04] MEDS ORDERED: RIVASTIGMINE 4.6 MG/24 HOURS TRANSDERMAL PATCH TD SCH (18:00)
[2019-06-04] MEDS ORDERED: ACETYLCYSTEINE 20% 200MG/ML 4 ML VIAL *FOR ORAL / INH USE ONLY NEB SCH (20:00)
[2019-06-04 20:43] LABS: ARTERIAL BLD GAS O2 SATURATION 93.2 % (95-98); ARTERIAL BLOOD GAS BASE EXCESS 4.8 meq/l (-2-2); ARTERIAL BLOOD GAS pH 7.27 (7.35-7.45)
[2019-06-04 20:45] LABS: ARTERIAL BLOOD GAS PO2 79.9 mmHg (80-100)
[2019-06-04 20:46] LABS: ALLENS TEST POSITIVE
[2019-06-04 20:48] LABS: ARTERIAL BLOOD GAS PCO2 75.7 mmHg (35-45)
[2019-06-04] MEDS: MUPIROCIN 2% TOPICAL OINTMENT FOR DECOLONIZATION NS SCH (21:47)
[2019-06-04] MEDS: CHLORHEXIDINE GLUCONATE 4% CLEANSER FOR DECOLONIZATION TP SCH (21:49)
[2019-06-04] MEDS ORDERED: PROPOFOL 1,000,000 MCG/100 ML VIAL ONE (21:57)
--- NOTE | 2019-06-04 22:12 | PN ---
Physical Exam: SUBJECTIVE: We have been called to re-evaluate a pt previously in the ICU noted to have been increasingly altered through the day, now with labored breathing. Pt is an 79 yo F with PMHx of Parkinson Disease and dementia who was BIBEMS with AMS x4 days prior to presentation, admitted for PNA. Pt initially had improved mental status but became progressively nonresponsive through the day. This evening, pt was reported by family to be in respiratory distress. Per family, pt reportedly aspirated today because she was awake and talking with them yesterday. Night team assessed the pt and put in orders and recommended NRB oxygen, for possible ICU transfer for intubation. Subsequently, ABG showed 7.24/75.7/ 79.9/33.3 with lactic acidosis of 2.1 and CXR showing congestive changes/L infiltrates/atelectasis. ABG earlier in day without respiratory acidosis or CO2 retention. Family at bedside wanted everything including intubation per daughter (HCP). Anesthesia was called initially and family became hesistant about intubation. When anesthesia left for an OR case, family said they were considering NRB prior to intubation. After pt was transferred to ICU for acute hypercapnic hypoxic respiratory failure, family decided again for intubation and intubation was supervised by ED attending. OBJECTIVE: Vital Signs Period Temp Pulse Resp BP Sys/Campbell Pulse Ox Last 24 Hr 97.5 F-99.8 F 77-102 20-28 110-172/55-98 99-99 Vital Signs Temp 97.5 F L 06/04/19 20:39 Pulse 102 H 06/04/19 20:39 Resp 27 H 06/04/19 22:04 BP 172/98 H 06/04/19 20:39 Pulse Ox 100 06/04/19 22:51 Intake & Output 06/03/19 06/04/19 06/04/19 23:59 11:59 23:59 Intake Total 1670 1045 1106 Output Total 50 Balance 1670 1045 1056 Weight 62.142 kg 62.324 kg Intake: IV 840 540 581 1/2NS+20MEQ KCL 20 meq In 540 581 1,000 ml @ 83 mls/hr IV ASDIR VASYL Rx#:[id number] LACTATED RINGERS SOLUTION 840 1,000 ml In 1,000 ml @ 100 mls/hr IV ASDIR VASYL Rx#:[id number] IVPB 800 50 300 Tube Feeding 210 120 Tube Irrigant 30 245 105 Output: Urine 50 Void 50 Other: Voiding Method Incontinent Incontinent Indwelling Catheter # Unmeasured Voids Void 2 1 3 Bowel Movement No No Height 1.52 m Body Mass Index (BMI) 26.7 Weight Measurement Method Patient Lift Scale GENERAL: The patient is lethargic, with NGT tube and breathing treatment. EYES: No spontaneous eye opening, or eye opening to pain. ENT: NGT, breathing treatment in place with excessive clear secretions from mouth LUNGS: Scattered wheezes and rhonchi b/l HEART: tachycardic, regular rhythm, S1, S2 ABDOMEN: Soft, nontender, nondistended, normoactive bowel sounds EXTREMITIES: 2+ pulses, warm, b/l pedal edema. NEUROLOGICAL: Lethargic, unarousable to pain CBC, BMP 06/04/19 06:30 06/04/19 06:30 Laboratory Results - last 24 hr 06/04/19 06/04/19 06/04/19 01:01 04:57 06:30 WBC RBC Hgb Hct MCV MCH MCHC RDW Plt Count MPV Anticoagulation Therapy Puncture Site ABG pH ABG pCO2 at Pt Temp ABG pO2 at Pt Temp ABG HCO3 ABG O2 Sat (Measured) ABG O2 Content ABG Base Excess Gaetano Test O2 Delivery Device Oxygen Flow Rate Vent Mode Vent Rate Mechanical Rate Pressure Support Vent Sodium 141 Potassium 3.7 Chloride 106 Carbon Dioxide 30 Anion Gap 6 L BUN 25.6 H Creatinine 1.0 Est GFR (CKD-EPI)AfAm 61.19 Est GFR (CKD-EPI)NonAf 52.79 POC Glucometer 139 149 Random Glucose 125 H Lactic Acid Calcium 8.2 L Phosphorus 2.8 Magnesium 2.2 Iron 52 TIBC 161 L Iron Saturation 32 Unsaturated IBC 109 L Ferritin 548.5 H Total Bilirubin 0.4 AST 32 ALT 18 Alkaline Phosphatase 86 Creatine Kinase 281 H Creatine Kinase Index No Result Required. CK-MB (CK-2) < 1.0 Total Protein 6.0 L Albumin 2.1 L 06/04/19 06/04/19 06/04/19 06:30 10:15 10:55 WBC 15.1 H RBC 4.35 Hgb 9.8 L Hct 31.6 L MCV 72.6 L MCH 22.6 L MCHC 31.1 L RDW 17.0 H Plt Count 246 MPV 9.8 Anticoagulation Therapy No Result Required. Puncture Site No Result Required. ABG pH 7.45 ABG pCO2 at Pt Temp 42.2 ABG pO2 at Pt Temp 183 H ABG HCO3 29.1 H ABG O2 Sat (Measured) 99.0 H ABG O2 Content 13.8 ABG Base Excess 5.1 H Gaetano Test No Result Required. O2 Delivery Device No Result Required. Oxygen Flow Rate No Result Required. Vent Mode No Result Required. Vent Rate No Result Required. Mechanical Rate No Result Required. Pressure Support Vent No Result Required. Sodium Potassium Chloride Carbon Dioxide Anion Gap BUN Creatinine Est GFR (CKD-EPI)AfAm Est GFR (CKD-EPI)NonAf POC Glucometer Random Glucose Lactic Acid 1.1 Calcium Phosphorus Magnesium Iron TIBC Iron Saturation Unsaturated IBC Ferritin Total Bilirubin AST ALT Alkaline Phosphatase Creatine Kinase Creatine Kinase Index CK-MB (CK-2) Total Protein Albumin 06/04/19 06/04/19 06/04/19 11:02 16:58 20:15 WBC RBC Hgb Hct MCV MCH MCHC RDW Plt Count MPV Anticoagulation Therapy No Result Required. Puncture Site Right radial ABG pH 7.27 L ABG pCO2 at Pt Temp 75.7 H* ABG pO2 at Pt Temp 79.9 L ABG HCO3 33.3 H ABG O2 Sat (Measured) 93.2 L ABG O2 Content No Result Required. ABG Base Excess 4.8 H Gaetano Test Positive O2 Delivery Device No Result Required. Oxygen Flow Rate No Result Required. Vent Mode N/c Vent Rate No Result Required. Mechanical Rate No Result Required. Pressure Support Vent No Result Required. Sodium Potassium Chloride Carbon Dioxide Anion Gap BUN Creatinine Est GFR (CKD-EPI)AfAm Est GFR (CKD-EPI)NonAf POC Glucometer 197 165 Random Glucose Lactic Acid Calcium Phosphorus Magnesium Iron TIBC Iron Saturation Unsaturated IBC Ferritin Total Bilirubin AST ALT Alkaline Phosphatase Creatine Kinase Creatine Kinase Index CK-MB (CK-2) Total Protein Albumin Active Medications Generic Name Dose Route Start Last Admin Trade Name Freq PRN Reason Stop Dose Admin Acetylcysteine 600 mg 06/05/19 08:00 Mucomyst 20 Oral / Inh Use Only* NEB RBID VASYL Albuterol Sulfate 1 amp 06/04/19 21:42 Ventolin 0.083% Nebulizer Soln - NEB Q6H PRN SHORT OF BREATH/WHEEZING Albuterol Sulfate 1 amp 06/05/19 08:00 Ventolin 0.083% Nebulizer Soln - NEB RTID VASYL Carbidopa/Levodopa 1 each 06/05/19 07:00 Sinemet 25/100 - PO TID@0700,1200,1900 [facility] Chlorhexidine Gluconate 1 applic 06/04/19 22:00 06/04/19 21:49 Hibiclens For Decolonization - TP 1 applic HS VASYL Administration Heparin Sodium (Porcine) 5,000 unit 06/04/19 22:00 06/04/19 21:50 Heparin - SQ 5,000 unit TID VASYL Administration Azithromycin 500 mg in 250 mls @ 250 mls/hr 06/05/19 10:00 Zithromax 500mg Ivpb (Pre-Docked) IVPB DAILY VASYL Piperacillin Sod/Tazobactam 50 mls @ 100 mls/hr 06/05/19 02:00 Sod 3.375 gm/ Dextrose IVPB Q8H-IV VASYL Protocol Propofol 1,000,000 mcg in 100 mls @ 1.87 mls/hr 06/04/19 22:15 Diprivan - IVPB TITR VASYL Protocol 5 MCG/KG/MIN Mupirocin 1 applic 06/04/19 22:00 06/04/19 21:47 Bactroban Ointment (For Decolonization) - NS 06/09/19 21:59 1 applic BID VASYL Administration Non-Formulary Medication 1 each 06/05/19 10:00 Rotigotine [Neupro] TD DAILY [facility] Pantoprazole Sodium 40 mg 06/05/19 10:00 Protonix Iv IVPUSH DAILY [facility] Prednisone 20 mg 06/05/19 10:00 Deltasone - NGT DAILY [facility] Rivastigmine 1 each 06/05/19 10:00 Exelon Patch 4.6mg/24 Hours - TD DAILY [facility] Ambulatory Orders Ca/D3/Mag Ox/Zinc/Embedded Software Developer/Ketan/Bor [Calcium 600-D3 Plus Caplet] 1 each PO HS 04/13/18 Carbidopa/Levodopa [Carbidopa-Levo ER 50-200 Tab] 1 each PO TID 04/13/18 Aspirin 81 mg PO DAILY 06/01/19 Melatonin 5 mg PO HS 06/01/19 Olanzapine [Zyprexa -] 7.5 mg PO DAILY 06/01/19 Omeprazole 20 mg PO DAILY 06/01/19 Rivastigmine [Exelon Patch 4.6MG/24 Hours] 1 each TD DAILY 06/01/19 Rotigotine [Neupro] 1 each TD DAILY 06/01/19 Current Medications Acetylcysteine (Mucomyst 20 Oral / Inh Use Only*) 600 mg NEB RBID VASYL Albuterol Sulfate (Ventolin 0.083% Nebulizer Soln -) 1 amp NEB Q6H PRN PRN Reason: SHORT OF BREATH/WHEEZING Albuterol Sulfate (Ventolin 0.083% Nebulizer Soln -) 1 amp NEB RTID VASYL Carbidopa/Levodopa (Sinemet 25/100 -) 1 each PO TID@0700,1200,1900 VASYL Chlorhexidine Gluconate (Hibiclens For Decolonization -) 1 applic TP HS VASYL Last Admin: 06/04/19 21:49 Dose: 1 applic Heparin Sodium (Porcine) (Heparin -) 5,000 unit SQ TID VASYL Last Admin: 06/04/19 21:50 Dose: 5,000 unit Azithromycin (Zithromax 500mg Ivpb (Pre-Docked)) 500 mg in 250 mls @ 250 mls/hr IVPB DAILY VASYL Piperacillin Sod/Tazobactam (Sod 3.375 gm/ Dextrose) 50 mls @ 100 mls/hr IVPB Q8H-IV VASYL; Protocol Propofol (Diprivan -) 1,000,000 mcg in 100 mls @ 1.87 mls/hr IVPB TITR VASYL; Protocol Mupirocin (Bactroban Ointment (For Decolonization) -) 1 applic NS BID VASYL Stop: 06/09/19 21:59 Last Admin: 06/04/19 21:47 Dose: 1 applic Non-Formulary Medication (Rotigotine [Neupro]) 1 each TD DAILY VASYL Pantoprazole Sodium (Protonix Iv) 40 mg IVPUSH DAILY VASYL Prednisone (Deltasone -) 20 mg NGT DAILY VASYL Rivastigmine (Exelon Patch 4.6mg/24 Hours -) 1 each TD DAILY [facility] ASSESSMENT/PLAN: Pt is an 79 yo F with PMHx of Parkinson Disease and dementia who was BIBEMS with AMS x4 days prior to presentation, admitted for PNA, transferred to ICU for new AMS, with labored breathing, found to have hypercapnic, hypoxic respiratory failure. Neuro #AMS #Parkinson's and dementia -Pt on home Sinimet, would consider holding in setting of AMS toxic metabolic encephalopathy in setting of Co2 narcosis, possibly multifactoral, with depressed respiratory drive in AMS/aspiration PNA and underlying PNA and possible congestion -CT head negative for acute processes -urine cx negative -blood cx pending- Staph coag negative in 1 bottle, new cultures prelim negative -NGT feeds held for possible aspiration- pt's daughter not currently interested in PEG but may re-evaluate later; previous tube was difficult to have removed per daughter -dietary following -speech following Pulm #acute hypercapnic hypoxic respiratory failure 2/2 multilobar PNA and sepsis, pt now intubated -CXR b/l infiltrates and atelectasis right lung and left lung base -flu negative -echo- normal EF, impaired relaxation, elevated filling pressures, TR, MR -duonebs TID -prednisone 20mg daily -zosyn 3.375g Q8H day 4 -zithromax 500mg IV daily day 4 -ID following ID #leukocytosis #Lactic acidosis, possibly in setting of hypoxia -from infection vs steroid use -mild improvement continues -continue monitor Renal: #JOS, resolved -iv fluids stopped, pt received lasix today -nephro following Hemonc: #anemia of chronic disease -microcytosis but low TIBC, unsaturated IBC, and high ferritin DVT ppx heparin GI ppx protonix FEN No standing fluids monitor labs hold NG feeds Visit type - Emergency Visit Emergency Visit: Yes ED Registration Date: 06/01/19 Care time: The patient presented to the Emergency Department on the above date and was hospitalized for further evaluation of their emergent condition. - New Patient This patient is new to me today: No - Critical Care Critical Care patient: Yes Total Critical Care Time (in minutes): 38 Critical Care Statement: The care of this patient involved high complexity decision making to prevent further life threatening deterioration of the patient's condition and/or to evaluate & treat vital organ system(s) failure or risk of failure. - Discharge Referral Referred to [facility] Med P.C.: No ATTENDING PHYSICIAN STATEMENT I saw and evaluated the patient. I reviewed the resident's note and discussed the case with the resident. I agree with the resident's findings and plan as documented. SUBJECTIVE: OBJECTIVE: ASSESSMENT AND PLAN:
[2019-06-04] MEDS: PROPOFOL 1,000,000 MCG/100 ML VIAL IVPB SCH (22:30)
--- NOTE | 2019-06-04 22:51 | PROC ---
Intubation - Intubation Reason for Intubation: Respiratory Failure Time of Intubation: 21:30 Intubation Method: orotracheal Blade used: Glidescope Tube Size (cm): 7.5 Tube position @ lip (cm): 22 Tube position confirmed by: Chest x-ray, Breath sounds Post Intubation Xray: Yes
[2019-06-04] MEDS ORDERED: MIDAZOLAM HCL 2 MG/2 ML SINGLE DOSE VIAL IVPUSH ONE (23:09)
[2019-06-05 00:38] LABS: ARTERIAL BLD GAS O2 SATURATION 99.1 % (95-98); ARTERIAL BLOOD GAS BASE EXCESS 7.4 meq/l (-2-2); ARTERIAL BLOOD GAS PCO2 43.9 mmHg (35-45); ARTERIAL BLOOD GAS pH 7.47 (7.35-7.45)
[2019-06-05 00:41] LABS: ALLENS TEST POSITIVE; ARTERIAL BLOOD GAS PO2 379 mmHg (80-100)
[2019-06-05] MEDS ORDERED: DEXTROSE 5%-WATER - 50 ML IVPB ONE ×3 (00:58→16:08)
[2019-06-05] MEDS ORDERED: PIPERACILLIN/TAZOBACTAM 3.375 GM VIAL IVPB ONE ×3 (00:58→16:08)
[2019-06-05] MEDS: PIPERACILLIN/TAZOB 3.375 GM 3.375 GM in DEXTROSE 5%-WATER - 50 ML IVPB SCH ×3 (01:13→17:28)
[2019-06-05] MEDS: PROPOFOL 1,000,000 MCG/100 ML VIAL IVPB SCH (01:14)
[2019-06-05] MEDS: HEPARIN NA (PORCINE) 5,000 UNITS/ML 1ML VIAL SQ SCH ×3 (05:55→21:28)
[2019-06-05] MEDS: CARBIDOPA/LEVODOPA 25/100 TABLET (FP) PO SCH ×3 (06:05→21:28)
[2019-06-05 06:43] LABS: HEMATOCRIT 29.9 % (32.4-45.2); HEMOGLOBIN 9.5 GM/dL (10.7-15.3); MCH 22.7 pg (25.7-33.7); MEAN PLT VOLUME 9.1 fl (7.5-11.1); PLATELET COUNT 273 K/MM3 (134-434); RBC 4.21 M/mm3 (3.60-5.2)
[2019-06-05 06:56] LABS: ALBUMIN 2.4 g/dl (3.4-5.0); BILIRUBIN,TOTAL 0.3 mg/dL (0.2-1); BLOOD UREA NITROGEN 19.7 mg/dL (7-18); CALCIUM 8.3 mg/dL (8.5-10.1); PHOSPHOROUS 2.3 mg/dL (2.5-4.9); POTASSIUM 3.9 mmol/L (3.5-5.1); TOT PROT 6.3 g/dl (6.4-8.2)
[2019-06-05] MEDS ORDERED: POTASSIUM PHOSPHATE 15 MM in SODIUM CHLORIDE 250 ML IVPB ONE (07:21)
[2019-06-05] MEDS ORDERED: PT OWN MED DRAWER 7, Y5N ONE (07:54)
[2019-06-05] MEDS: ALBUTEROL SO4 0.083% IH SOL 2.5 MG/3 ML VIAL.NEB. NEB SCH ×3 (08:14→21:40)
[2019-06-05] MEDS: ACETYLCYSTEINE 20% 200MG/ML 4 ML VIAL *FOR ORAL / INH USE ONLY NEB SCH ×2 (08:14→21:40)
[2019-06-05] MEDS: PANTOPRAZOLE SODIUM 40 MG VIAL IVPUSH SCH (09:09)
--- NOTE | 2019-06-05 09:14 | PN ---
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, Physician Chief Complaint: intubated AC 70% FIO2 TELE: SR, artifact, some PVCs - Current Medication List Current Medications: Active Medications Acetylcysteine (Mucomyst 20 Oral / Inh Use Only*) 600 mg NEB RBID [facility] Last Admin: 06/05/19 08:14 Dose: 600 mg Albuterol Sulfate (Ventolin 0.083% Nebulizer Soln -) 1 amp NEB Q6H PRN PRN Reason: SHORT OF BREATH/WHEEZING Albuterol Sulfate (Ventolin 0.083% Nebulizer Soln -) 1 amp NEB RTID [facility] Last Admin: 06/05/19 08:14 Dose: 1 amp Carbidopa/Levodopa (Sinemet 25/100 -) 1 each PO TID@0700,1200,1900 [facility] Last Admin: 06/05/19 06:05 Dose: 1 each Chlorhexidine Gluconate (Hibiclens For Decolonization -) 1 applic TP HS [facility] Last Admin: 06/04/19 21:49 Dose: 1 applic Heparin Sodium (Porcine) (Heparin -) 5,000 unit SQ TID [facility] Last Admin: 06/05/19 05:55 Dose: 5,000 unit Azithromycin (Zithromax 500mg Ivpb (Pre-Docked)) 500 mg in 250 mls @ 250 mls/ hr IVPB DAILY [facility] Last Admin: 06/05/19 09:08 Dose: 250 mls/hr Piperacillin Sod/Tazobactam (Sod 3.375 gm/ Dextrose) 50 mls @ 100 mls/hr IVPB Q8H-IV [facility]; Protocol Last Admin: 06/05/19 09:09 Dose: 100 mls/hr Propofol (Diprivan -) 1,000,000 mcg in 100 mls @ 1.87 mls/hr IVPB TITR [facility]; Protocol Last Admin: 06/05/19 01:14 Dose: 50 mcg/kg/min, 18.697 mls/hr Potassium Phosphate 15 mm/ (Sodium Chloride) 255 mls @ 62.5 mls/hr IVPB ONCE ONE Stop: 06/05/19 11:25 Last Admin: 06/05/19 09:08 Dose: 62.5 mls/hr Mupirocin (Bactroban Ointment (For Decolonization) -) 1 applic NS BID [facility] Stop: 06/09/19 21:59 Last Admin: 06/04/19 21:47 Dose: 1 applic Non-Formulary Medication (Rotigotine [Neupro]) 1 each TD DAILY [facility] Pantoprazole Sodium (Protonix Iv) 40 mg IVPUSH DAILY [facility] Last Admin: 06/05/19 09:09 Dose: 40 mg Prednisone (Deltasone -) 20 mg NGT DAILY [facility] Rivastigmine (Exelon Patch 4.6mg/24 Hours -) 1 each TD DAILY [facility] - Objective Vital Signs: Vital Signs Temperature 98.6 F 06/05/19 06:13 Pulse Rate 80 06/05/19 06:13 Respiratory Rate 16 06/05/19 08:09 Blood Pressure 119/76 06/05/19 06:13 O2 Sat by Pulse Oximetry (%) 100 06/05/19 06:00 Constitutional: Yes: Other (+ ETT) Cardiovascular: Yes: Regular Rate and Rhythm Respiratory: Yes: Other (= breath sounds b/l) Gastrointestinal: Yes: Soft Edema: No Neurological: Yes: Other (sedated on vent) Labs: CBC, BMP 06/05/19 05:40 06/05/19 05:40 INR, PTT INR 1.16 (0.83-1.09) H 06/01/19 09:40 Microbiology 06/03/19 12:00 Blood - Peripheral Venous Blood Culture - Preliminary NO GROWTH OBTAINED AFTER 24 HOURS, INCUBATION TO CONTINUE FOR 4 DAYS. 06/03/19 11:40 Blood - Peripheral Venous Blood Culture - Preliminary NO GROWTH OBTAINED AFTER 24 HOURS, INCUBATION TO CONTINUE FOR 4 DAYS. Laboratory Tests 06/05/19 06/05/19 05:40 05:40 WBC 14.0 H Hgb 9.5 L Plt Count 273 Sodium 140 Potassium 3.9 BUN 19.7 H Creatinine 1.0 Magnesium 2.0 - ....Imaging Chest X-ray: Report Reviewed EKG: Image Reviewed Assessment/Plan echo 05/2019 nl LV/RV function, impaired relaxation, elevated filling pressures, RV not well visualized, mild to mod MR, mild mod TR CXR: kenyon infiltrates and congestive changes predominantly RUL and L base PNA, sepsis, acute respiratory failure: - manage per critical care, ID; vent support - findings on CXR more suggestive of PNA, although congestive changes possible in setting of receiving IVF - nl LV function on echo - cautious use of IVF, hold lasix. monitor respiratory status HTN: - holding diovan in setting of JOS, bp has been stable DM: - manage per primary dementia, parkinson's: - manage per primary JOS, rhabdo: - renal following - CK downtrending with IVF - Cr improving - monitor volume status while receiving IVF
--- NOTE | 2019-06-05 09:21 | CONSULT ---
- Consultation REQUESTING PROVIDER: CONSULT REQUEST: We have been asked to surgically evaluate this patient for decubitus ulcer PCP:George Rodriguez HISTORY OF PRESENT ILLNESS: 79yo F with PMHx of Parkinson Disease and dementia who was BIBEMS with AMS x4 days prior to presentation, admitted for PNA. Pt currently intubated so unable to give history. Pt has been bedbound alf as per nursing. Home Medications Medication Instructions Recorded Ca/D3/Mag Ox/Zinc/Provider Education Specialist/Ektan/Bor 1 each PO HS 04/13/18 [Calcium 600-D3 Plus Caplet] Carbidopa/Levodopa [Carbidopa-Levo 1 each PO TID 04/13/18 ER 50-200 Tab] Aspirin 81 mg PO DAILY 06/01/19 Melatonin 5 mg PO HS 06/01/19 Olanzapine [Zyprexa -] 7.5 mg PO DAILY 06/01/19 Omeprazole 20 mg PO DAILY 06/01/19 Rivastigmine [Exelon Patch 1 each TD DAILY 06/01/19 4.6MG/24 Hours] Rotigotine [Neupro] 1 each TD DAILY 06/01/19 Allergies Allergy/AdvReac Type Severity Reaction Status Date / Time No Known Allergies Allergy Verified 05/31/19 23:41 PHYSICAL EXAM: GENERAL: intubated, sedated. HEAD: Normal with no signs of trauma. EYES: PERRL, sclera anicteric, conjunctiva clear. NECK: Normal ROM BACK: Mostly healed 10cm x 10cm decubitus ulcer Stage 1 with some skin abrasions. No erythema or drainage. Vital Signs Temperature 98.6 F 06/05/19 06:13 Pulse Rate 80 06/05/19 06:13 Respiratory Rate 16 06/05/19 08:09 Blood Pressure 119/76 06/05/19 06:13 O2 Sat by Pulse Oximetry (%) 100 06/05/19 06:00 Lab Results WBC 14.0 K/mm3 (4.0-10.0) H 06/05/19 05:40 RBC 4.21 M/mm3 (3.60-5.2) 06/05/19 05:40 Hgb 9.5 GM/dL (10.7-15.3) L 06/05/19 05:40 Hct 29.9 % (32.4-45.2) L 06/05/19 05:40 MCV 71.0 fl (80-96) L 06/05/19 05:40 MCHC 32.0 g/dl (32.0-36.0) 06/05/19 05:40 RDW 17.0 % (11.6-15.6) H 06/05/19 05:40 Plt Count 273 K/MM3 (134-434) 06/05/19 05:40 Sodium 140 mmol/L (136-145) 06/05/19 05:40 Potassium 3.9 mmol/L (3.5-5.1) 06/05/19 05:40 Chloride 103 mmol/L (98-107) 06/05/19 05:40 Carbon Dioxide 34 mmol/L (21-32) H 06/05/19 05:40 Anion Gap 4 MMOL/L (8-16) L 06/05/19 05:40 BUN 19.7 mg/dL (7-18) H 06/05/19 05:40 Creatinine 1.0 mg/dL (0.55-1.3) 06/05/19 05:40 Random Glucose 98 mg/dL (74-106) 06/05/19 05:40 Calcium 8.3 mg/dL (8.5-10.1) L 06/05/19 05:40 INR 1.16 (0.83-1.09) H 06/01/19 09:40 Problem List - Problems (1) Decubitus ulcer Assessment/Plan: Plan Sacral Ulcer/DTI Plan -Reposition every two hours while in bed -Air mattress recommended -Use drawsheets and Trendelenburg when repositioning to reduce friction and shear -Manageincontinence via timely cleansing, use of appropriate incontinence disposables and use of barrier ointment to intact skin -Ensure adequate hydration/nutrition, supplementation per primary team -Ensure off-loading to all bony areas (heels, ankles, hips and tailbone) with Allevyn/Optifoam -Clean open wounds with normal saline and apply bacitracin Code(s): L89.90 - PRESSURE ULCER OF UNSPECIFIED SITE, UNSPECIFIED STAGE Qualifiers: Pressure injury stage: stage 1
[2019-06-05] MEDS: PATIENT'S OWN MEDICATION (NON-FORMULARY) (Rotigotine [Neupro] 1 EACH) TD SCH (10:00)
[2019-06-05] MEDS ORDERED: AZITHROMYCIN IVPB 500 MG/250 ML BAG IVPB SCH (10:00)
[2019-06-05] MEDS ORDERED: predniSONE 5 MG/5 ML ORAL SOLN- UNIT-DOSE CUP NGT SCH (10:00)
[2019-06-05] MEDS: RIVASTIGMINE 4.6 MG/24 HOURS TRANSDERMAL PATCH TD SCH (10:01)
[2019-06-05] MEDS: MUPIROCIN 2% TOPICAL OINTMENT FOR DECOLONIZATION NS SCH ×2 (10:12→21:29)
--- NOTE | 2019-06-05 10:47 | PN ---
Teaching Attending Note Name of Resident: Yumi Snow ATTENDING PHYSICIAN STATEMENT I saw and evaluated the patient. I reviewed the resident's note and discussed the case with the resident. I agree with the resident's findings and plan as documented. SUBJECTIVE: Patient seen and examined in the ICU. Events noted from overnight. Now intubated and sedated. AC Mode of vent, 70% FiO2. No pressors. Intake & Output 06/02/19 06/03/19 06/04/19 06/05/19 23:59 23:59 23:59 23:59 Intake Total 2700 2520 2151 280 Output Total 50 Balance 2700 2520 2101 280 Weight 137 lb 137 lb 6.4 oz 138 lb 10.732 oz Last Vital Signs Temp Pulse Resp BP Pulse Ox 98.6 F 80 16 119/76 100 06/05/19 06:13 06/05/19 06:13 06/05/19 09:00 06/05/19 06:13 06/05/19 06:00 Active Medications Acetylcysteine (Mucomyst 20 Oral / Inh Use Only*) 600 mg NEB RBID [facility] Last Admin: 06/05/19 08:14 Dose: 600 mg Albuterol Sulfate (Ventolin 0.083% Nebulizer Soln -) 1 amp NEB Q6H PRN PRN Reason: SHORT OF BREATH/WHEEZING Albuterol Sulfate (Ventolin 0.083% Nebulizer Soln -) 1 amp NEB RTID [facility] Last Admin: 06/05/19 08:14 Dose: 1 amp Carbidopa/Levodopa (Sinemet 25/100 -) 1 each PO TID@0700,1200,1900 [facility] Last Admin: 06/05/19 06:05 Dose: 1 each Chlorhexidine Gluconate (Hibiclens For Decolonization -) 1 applic TP HS [facility] Last Admin: 06/04/19 21:49 Dose: 1 applic Heparin Sodium (Porcine) (Heparin -) 5,000 unit SQ TID [facility] Last Admin: 06/05/19 05:55 Dose: 5,000 unit Azithromycin (Zithromax 500mg Ivpb (Pre-Docked)) 500 mg in 250 mls @ 250 mls/ hr IVPB DAILY [facility] Last Admin: 06/05/19 09:08 Dose: 250 mls/hr Piperacillin Sod/Tazobactam (Sod 3.375 gm/ Dextrose) 50 mls @ 100 mls/hr IVPB Q8H-IV [facility]; Protocol Last Admin: 06/05/19 09:09 Dose: 100 mls/hr Propofol (Diprivan -) 1,000,000 mcg in 100 mls @ 1.87 mls/hr IVPB TITR [facility]; Protocol Last Titration: 06/05/19 09:25 Dose: 0 mcg/kg/min, 0 mls/hr Potassium Phosphate 15 mm/ (Sodium Chloride) 255 mls @ 62.5 mls/hr IVPB ONCE ONE Stop: 06/05/19 11:25 Last Admin: 06/05/19 09:08 Dose: 62.5 mls/hr Methylprednisolone Sodium Succinate (Solu-Medrol -) 40 mg IVPUSH BID [facility] Mupirocin (Bactroban Ointment (For Decolonization) -) 1 applic NS BID [facility] Stop: 06/09/19 21:59 Last Admin: 06/05/19 10:12 Dose: 1 applic Non-Formulary Medication (Rotigotine [Neupro]) 1 each TD DAILY [facility] Last Admin: 06/05/19 10:00 Dose: 1 each Pantoprazole Sodium (Protonix Iv) 40 mg IVPUSH DAILY [facility] Last Admin: 06/05/19 09:09 Dose: 40 mg Rivastigmine (Exelon Patch 4.6mg/24 Hours -) 1 each TD DAILY [facility] Last Admin: 06/05/19 10:01 Dose: 1 each GENERAL: Intubated and sedated EYES: (-) Icterus LUNGS: Vented, scattered bilateral rhonchi HEART: tachycardic, regular rhythm, S1, S2 ABDOMEN: Soft, nontender, nondistended, normoactive bowel sounds EXTREMITIES: 2+ pulses, warm, b/l pedal edema. NEUROLOGICAL: Sedated Laboratory Results - last 24 hr 06/04/19 06/04/19 06/04/19 10:55 11:02 16:58 WBC RBC Hgb Hct MCV MCH MCHC RDW Plt Count MPV Anticoagulation Therapy Puncture Site ABG pH ABG pCO2 at Pt Temp ABG pO2 at Pt Temp ABG HCO3 ABG O2 Sat (Measured) ABG O2 Content ABG Base Excess Gaetano Test O2 Delivery Device Oxygen Flow Rate Vent Mode Vent Rate Mechanical Rate PEEP Pressure Support Vent Sodium Potassium Chloride Carbon Dioxide Anion Gap BUN Creatinine Est GFR (CKD-EPI)AfAm Est GFR (CKD-EPI)NonAf POC Glucometer 197 165 Random Glucose Lactic Acid 1.1 Calcium Phosphorus Magnesium Total Bilirubin AST ALT Alkaline Phosphatase Total Protein Albumin 06/04/19 06/05/19 06/05/19 20:15 00:30 05:40 WBC 14.0 H RBC 4.21 Hgb 9.5 L Hct 29.9 L MCV 71.0 L MCH 22.7 L MCHC 32.0 RDW 17.0 H Plt Count 273 MPV 9.1 Anticoagulation Therapy No Result Required. No Result Required. Puncture Site Right radial Right radial ABG pH 7.27 L 7.47 H ABG pCO2 at Pt Temp 75.7 H* 43.9 ABG pO2 at Pt Temp 79.9 L 379 H ABG HCO3 33.3 H 31.5 H ABG O2 Sat (Measured) 93.2 L 99.1 H ABG O2 Content No Result Required. No Result Required. ABG Base Excess 4.8 H 7.4 H Gaetano Test Positive Positive O2 Delivery Device No Result Required. Vent Oxygen Flow Rate No Result Required. 100% Vent Mode N/c A/c Vent Rate No Result Required. 16 Mechanical Rate No Result Required. Yes PEEP 5.0 Pressure Support Vent No Result Required. 350 Sodium Potassium Chloride Carbon Dioxide Anion Gap BUN Creatinine Est GFR (CKD-EPI)AfAm Est GFR (CKD-EPI)NonAf POC Glucometer Random Glucose Lactic Acid Calcium Phosphorus Magnesium Total Bilirubin AST ALT Alkaline Phosphatase Total Protein Albumin 06/05/19 05:40 WBC RBC Hgb Hct MCV MCH MCHC RDW Plt Count MPV Anticoagulation Therapy Puncture Site ABG pH ABG pCO2 at Pt Temp ABG pO2 at Pt Temp ABG HCO3 ABG O2 Sat (Measured) ABG O2 Content ABG Base Excess Gaetano Test O2 Delivery Device Oxygen Flow Rate Vent Mode Vent Rate Mechanical Rate PEEP Pressure Support Vent Sodium 140 Potassium 3.9 Chloride 103 Carbon Dioxide 34 H Anion Gap 4 L BUN 19.7 H Creatinine 1.0 Est GFR (CKD-EPI)AfAm 61.19 Est GFR (CKD-EPI)NonAf 52.79 POC Glucometer Random Glucose 98 Lactic Acid Calcium 8.3 L Phosphorus 2.3 L Magnesium 2.0 Total Bilirubin 0.3 AST 46 H ALT 29 Alkaline Phosphatase 82 Total Protein 6.3 L Albumin 2.4 L ASSESSMENT/PLAN: Acute Hypercapneic Respiratory Failure due to suspected Aspiration Parkinson Disease Dementia AMS PNA Leukocytosis Lactic acidosis ABX per ID AC Mode of vent Wean FiO2 VTE prophylaxis Eneteral feeds Medrol BD TX Requires ICU monitoring Dr Collins Critical care time spent in reviewing chart, evaluating patient and formulating plan - 36 minutes.
--- NOTE | 2019-06-05 11:27 | PN ---
Physical Exam: SUBJECTIVE: Patient seen and examined in the morning. Patient was transferred to ICU and intubated overnight. Cardiac monitoring shows sinus rhythm and artifacts. Patient is sedated and not responding to questioning from examiner. OBJECTIVE: Vital Signs Period Temp Pulse Resp BP Sys/Campbell Pulse Ox Last 24 Hr 97.5 F-99.8 F 80-102 16-28 119-172/73-98 100-100 GENERAL: The patient is sedated and unresponsive to command. HEAD: Normal with no signs of trauma. ENT: ET tube in place. NECK: Trachea midline, full range of motion, supple. LUNGS: Crackles in the upper lobes present, poor air entry in b/l lower lobes. HEART: Systolic murmur present, 3/6 strength. ABDOMEN: Soft, nontender, nondistended, normoactive bowel sounds. EXTREMITIES: 2+ pulses, warm, well-perfused, no edema. NEUROLOGICAL:Patient was sedated during exam SKIN: Sacral ulcer present, [id number], no discharge present. Laboratory Results - last 24 hr 06/04/19 06/04/19 06/04/19 10:55 11:02 16:58 WBC RBC Hgb Hct MCV MCH MCHC RDW Plt Count MPV Anticoagulation Therapy Puncture Site ABG pH ABG pCO2 at Pt Temp ABG pO2 at Pt Temp ABG HCO3 ABG O2 Sat (Measured) ABG O2 Content ABG Base Excess Gaetano Test O2 Delivery Device Oxygen Flow Rate Vent Mode Vent Rate Mechanical Rate PEEP Pressure Support Vent Sodium Potassium Chloride Carbon Dioxide Anion Gap BUN Creatinine Est GFR (CKD-EPI)AfAm Est GFR (CKD-EPI)NonAf POC Glucometer 197 165 Random Glucose Lactic Acid 1.1 Calcium Phosphorus Magnesium Total Bilirubin AST ALT Alkaline Phosphatase Total Protein Albumin 06/04/19 06/05/19 06/05/19 20:15 00:30 05:40 WBC 14.0 H RBC 4.21 Hgb 9.5 L Hct 29.9 L MCV 71.0 L MCH 22.7 L MCHC 32.0 RDW 17.0 H Plt Count 273 MPV 9.1 Anticoagulation Therapy No Result Required. No Result Required. Puncture Site Right radial Right radial ABG pH 7.27 L 7.47 H ABG pCO2 at Pt Temp 75.7 H* 43.9 ABG pO2 at Pt Temp 79.9 L 379 H ABG HCO3 33.3 H 31.5 H ABG O2 Sat (Measured) 93.2 L 99.1 H ABG O2 Content No Result Required. No Result Required. ABG Base Excess 4.8 H 7.4 H Gaetano Test Positive Positive O2 Delivery Device No Result Required. Vent Oxygen Flow Rate No Result Required. 100% Vent Mode N/c A/c Vent Rate No Result Required. 16 Mechanical Rate No Result Required. Yes PEEP 5.0 Pressure Support Vent No Result Required. 350 Sodium Potassium Chloride Carbon Dioxide Anion Gap BUN Creatinine Est GFR (CKD-EPI)AfAm Est GFR (CKD-EPI)NonAf POC Glucometer Random Glucose Lactic Acid Calcium Phosphorus Magnesium Total Bilirubin AST ALT Alkaline Phosphatase Total Protein Albumin 06/05/19 05:40 WBC RBC Hgb Hct MCV MCH MCHC RDW Plt Count MPV Anticoagulation Therapy Puncture Site ABG pH ABG pCO2 at Pt Temp ABG pO2 at Pt Temp ABG HCO3 ABG O2 Sat (Measured) ABG O2 Content ABG Base Excess Gaetano Test O2 Delivery Device Oxygen Flow Rate Vent Mode Vent Rate Mechanical Rate PEEP Pressure Support Vent Sodium 140 Potassium 3.9 Chloride 103 Carbon Dioxide 34 H Anion Gap 4 L BUN 19.7 H Creatinine 1.0 Est GFR (CKD-EPI)AfAm 61.19 Est GFR (CKD-EPI)NonAf 52.79 POC Glucometer Random Glucose 98 Lactic Acid Calcium 8.3 L Phosphorus 2.3 L Magnesium 2.0 Total Bilirubin 0.3 AST 46 H ALT 29 Alkaline Phosphatase 82 Total Protein 6.3 L Albumin 2.4 L Active Medications Generic Name Dose Route Start Last Admin Trade Name Freq PRN Reason Stop Dose Admin Acetylcysteine 600 mg 06/05/19 08:00 06/05/19 08:14 Mucomyst 20 Oral / Inh Use Only* NEB 600 mg RBID [facility] Administration Albuterol Sulfate 1 amp 06/04/19 21:42 Ventolin 0.083% Nebulizer Soln - NEB Q6H PRN SHORT OF BREATH/WHEEZING Albuterol Sulfate 1 amp 06/05/19 08:00 06/05/19 08:14 Ventolin 0.083% Nebulizer Soln - NEB 1 amp RTID [facility] Administration Carbidopa/Levodopa 1 each 06/05/19 07:00 06/05/19 06:05 Sinemet 25/100 - PO 1 each TID@0700,1200,1900 [facility] Administration Chlorhexidine Gluconate 1 applic 06/04/19 22:00 06/04/19 21:49 Hibiclens For Decolonization - TP 1 applic HS [facility] Administration Heparin Sodium (Porcine) 5,000 unit 06/04/19 22:00 06/05/19 05:55 Heparin - SQ 5,000 unit TID [facility] Administration Azithromycin 500 mg in 250 mls @ 250 mls/hr 06/05/19 10:00 06/05/19 09:08 Zithromax 500mg Ivpb (Pre-Docked) IVPB 250 mls/hr DAILY [facility] Administration Piperacillin Sod/Tazobactam 50 mls @ 100 mls/hr 06/05/19 02:00 06/05/19 09:09 Sod 3.375 gm/ Dextrose IVPB 100 mls/hr Q8H-IV [facility] Administration Protocol Propofol 1,000,000 mcg in 100 mls @ 1.87 mls/hr 06/04/19 22:15 06/05/19 09:25 Diprivan - IVPB 0 mcg/kg/min TITR [facility] 0 mls/hr Titration Protocol 5 MCG/KG/MIN Potassium Phosphate 15 mm/ 255 mls @ 62.5 mls/hr 06/05/19 07:21 06/05/19 09: 08 Sodium Chloride IVPB 06/05/19 11:25 62.5 mls/hr ONCE ONE Administration Methylprednisolone Sodium Succinate 40 mg 06/05/19 10:00 Solu-Medrol - IVPUSH BID [facility] Mupirocin 1 applic 06/04/19 22:00 06/05/19 10:12 Bactroban Ointment (For Decolonization) - NS 06/09/19 21:59 1 applic BID [facility] Administration Non-Formulary Medication 1 each 06/05/19 10:00 06/05/19 10:00 Rotigotine [Neupro] TD 1 each DAILY [facility] Administration Pantoprazole Sodium 40 mg 06/05/19 10:00 06/05/19 09:09 Protonix Iv IVPUSH 40 mg DAILY [facility] Administration Rivastigmine 1 each 06/05/19 10:00 06/05/19 10:01 Exelon Patch 4.6mg/24 Hours - TD 1 each DAILY [facility] Administration ASSESSMENT/PLAN: 79 F PMH of Parkinson's dx, dementia, AMS for the past week, admitted to [facility] for PNA, was transferred to ICU for labored breathing, patient subsequently had respiratory failure and had required intubation. Neuro -Hx of Parkinson's and dementia -Patient has not been at baseline mentation, AMS for the past week -Pt was restarted on home rivostigimine and rotigotone yesterday. -CT head negative -Possible toxic metabolic encephalopathy in setting of Co2 narcosis, -Sedation vacations as tolerated Pulm -Acute hypercapnic hypoxic respiratory failure 2/2 multilobar PNA, now intubated -Chest X-Ray shows slight improvement from yesterday morning, infiltrates still present -Flu negative -Possible aspiration event -Duonebs -Methylprednisone 40 BID -Zoysn -Azithromax -Wean trials as tolerated Cardio -Hx of HTN -Patient currently stable -Echo done on 05/2019 shows normla LV/RV, impaired relaxation, elevated filling pressures, RV not well visualized, mild to moderate MR, mild to moderate TR. -BP stable, holding diovan -Cardiology consulted, appreciate recs GI -Currently stable, restarting tube feeds at lower rate ID -Leukocytosis, lactic acidosis on presentation -Lactic acid resolved -Leukocytosis present -Continue Zoysn and Azithromax -Possible aspiration PNA or pneumonitis Renal -JOS resolved -IV fluids stopped -Lasix given yesterday -Nephrology consulted, appreciate recs Heme -Anemia of chronic disease -Will continue to follow DVT: Heparin SQ GI PPX: Protonix F: No fluids E: Monitor CMP N: Tube feeds Dispo: Currently under ICU monitoring. Visit type - Emergency Visit Emergency Visit: Yes ED Registration Date: 06/01/19 Care time: The patient presented to the Emergency Department on the above date and was hospitalized for further evaluation of their emergent condition. - New Patient This patient is new to me today: Yes Date on this admission: 06/05/19 - Critical Care Critical Care patient: Yes Total Critical Care Time (in minutes): 45 Critical Care Statement: The care of this patient involved high complexity decision making to prevent further life threatening deterioration of the patient 's condition and/or to evaluate & treat vital organ system(s) failure or risk of failure. ATTENDING PHYSICIAN STATEMENT I saw and evaluated the patient. I reviewed the resident's note and discussed the case with the resident. I agree with the resident's findings and plan as documented. SUBJECTIVE: OBJECTIVE: ASSESSMENT AND PLAN:
[2019-06-05] MEDS: methylPREDNISolone NA SUCC 40 MG/1 ML VIAL IVPUSH SCH ×2 (12:01→21:28)
[2019-06-05 12:12] LABS: BLOOD UREA NITROGEN 16.7 mg/dL (7-18); CALCIUM 8.2 mg/dL (8.5-10.1); PHOSPHOROUS 3.3 mg/dL (2.5-4.9)
--- NOTE | 2019-06-05 13:50 | PN ---
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, Physician History of Present Illness: EVENTS NOTED DEVELOPED RESP DISTRESS ON FLOORS REQUIRED INTUBATION PRESENTLY SEDATED ON VENTILATOR IN ICU LOW GRADE TEMP SPUTUM NORMAL CORINNE - Current Medication List Current Medications: Active Medications Acetylcysteine (Mucomyst 20 Oral / Inh Use Only*) 600 mg NEB RBID [facility] Last Admin: 06/05/19 08:14 Dose: 600 mg Albuterol Sulfate (Ventolin 0.083% Nebulizer Soln -) 1 amp NEB Q6H PRN PRN Reason: SHORT OF BREATH/WHEEZING Albuterol Sulfate (Ventolin 0.083% Nebulizer Soln -) 1 amp NEB RTID [facility] Last Admin: 06/05/19 08:14 Dose: 1 amp Carbidopa/Levodopa (Sinemet 25/100 -) 1 each PO TID@0700,1200,1900 [facility] Last Admin: 06/05/19 12:01 Dose: 1 each Chlorhexidine Gluconate (Hibiclens For Decolonization -) 1 applic TP HS [facility] Last Admin: 06/04/19 21:49 Dose: 1 applic Heparin Sodium (Porcine) (Heparin -) 5,000 unit SQ TID [facility] Last Admin: 06/05/19 05:55 Dose: 5,000 unit Azithromycin (Zithromax 500mg Ivpb (Pre-Docked)) 500 mg in 250 mls @ 250 mls/ hr IVPB DAILY [facility] Last Admin: 06/05/19 09:08 Dose: 250 mls/hr Piperacillin Sod/Tazobactam (Sod 3.375 gm/ Dextrose) 50 mls @ 100 mls/hr IVPB Q8H-IV [facility]; Protocol Last Admin: 06/05/19 09:09 Dose: 100 mls/hr Propofol (Diprivan -) 1,000,000 mcg in 100 mls @ 1.87 mls/hr IVPB TITR [facility]; Protocol Last Titration: 06/05/19 09:25 Dose: 0 mcg/kg/min, 0 mls/hr Methylprednisolone Sodium Succinate (Solu-Medrol -) 40 mg IVPUSH BID [facility] Last Admin: 06/05/19 12:01 Dose: 40 mg Mupirocin (Bactroban Ointment (For Decolonization) -) 1 applic NS BID [facility] Stop: 06/09/19 21:59 Last Admin: 06/05/19 10:12 Dose: 1 applic Non-Formulary Medication (Rotigotine [Neupro]) 1 each TD DAILY [facility] Last Admin: 06/05/19 10:00 Dose: 1 each Pantoprazole Sodium (Protonix Iv) 40 mg IVPUSH DAILY [facility] Last Admin: 06/05/19 09:09 Dose: 40 mg Rivastigmine (Exelon Patch 4.6mg/24 Hours -) 1 each TD DAILY [facility] Last Admin: 06/05/19 10:01 Dose: 1 each - Objective Vital Signs: Vital Signs Temperature 98.6 F 06/05/19 06:13 Pulse Rate 79 06/05/19 12:00 Respiratory Rate 16 06/05/19 12:00 Blood Pressure 104/72 06/05/19 12:00 O2 Sat by Pulse Oximetry (%) 100 06/05/19 06:00 Constitutional: Yes: No Distress Eyes: Yes: Conjunctiva Clear Cardiovascular: Yes: Regular Rate and Rhythm, S1, S2 Respiratory: Yes: Mechanically Ventilated Gastrointestinal: Yes: Normal Bowel Sounds, Soft. No: Tenderness Edema: Yes Labs: CBC, BMP 06/05/19 05:40 06/05/19 11:15 INR, PTT INR 1.16 (0.83-1.09) H 06/01/19 09:40 Assessment/Plan RESP FAILURE PNEUMONIA SEPSIS TOXIC METABOLIC ENCEPHALOPATHY LEUKOCYTOSIS RENAL INSUFFICIENCY PARKINSONISM/OBS CONTINUE EMPIRIC ZOSYN VENTILATORY SUPPORT
--- NOTE | 2019-06-05 13:55 | EKG ---
Test Reason : Blood Pressure : / mmHG Vent. Rate : 074 BPM Atrial Rate : 074 BPM P-R Int : 142 ms QRS Dur : 138 ms QT Int : 438 ms P-R-T Axes : 048 -40 -30 degrees QTc Int : 486 ms NORMAL SINUS RHYTHM WITH SINUS ARRHYTHMIA LEFT AXIS DEVIATION RIGHT BUNDLE BRANCH BLOCK VOLTAGE CRITERIA FOR LEFT VENTRICULAR HYPERTROPHY NONSPECIFIC ST AND T WAVE ABNORMALITY ABNORMAL ECG Confirmed by ESTIVEN ANTHONY MD ([id number]) on 06/05/2019 1:54:26 PM Referred By: JACKELYN WADE Confirmed By:ESTIVEN ANTHONY MD
--- NOTE | 2019-06-05 15:27 | PN ---
Physical Exam: SUBJECTIVE: Patient seen and examined. Pt is non-responsive. Sedated and intubated. OBJECTIVE: Vital Signs Period Temp Pulse Resp BP Sys/Campbell Pulse Ox Last 24 Hr 97.5 F-99.8 F 79-102 16-28 104-172/72-98 100-100 GENERAL: Sedated HEAD: Normal with no signs of trauma. EYES: PERRL, conjunctiva clear. ENT: Ears normal, nares patent, moist mucous membranes. NECK: Trachea midline LUNGS: RUL rhonchi HEART: Regular rate and rhythm, no murmur ABDOMEN: Soft, nondistended, normoactive bowel sounds EXTREMITIES: Warm, well-perfused, trace edema. NEUROLOGICAL: Cranial nerves II through XII grossly intact. PSYCH: Normal mood, normal affect. SKIN: Warm, dry, normal turgor Laboratory Results - last 24 hr 06/04/19 06/04/19 06/05/19 16:58 20:15 00:30 WBC RBC Hgb Hct MCV MCH MCHC RDW Plt Count MPV Anticoagulation Therapy No Result Required. No Result Required. Puncture Site Right radial Right radial ABG pH 7.27 L 7.47 H ABG pCO2 at Pt Temp 75.7 H* 43.9 ABG pO2 at Pt Temp 79.9 L 379 H ABG HCO3 33.3 H 31.5 H ABG O2 Sat (Measured) 93.2 L 99.1 H ABG O2 Content No Result Required. No Result Required. ABG Base Excess 4.8 H 7.4 H Gaetano Test Positive Positive O2 Delivery Device No Result Required. Vent Oxygen Flow Rate No Result Required. 100% Vent Mode N/c A/c Vent Rate No Result Required. 16 Mechanical Rate No Result Required. Yes PEEP 5.0 Pressure Support Vent No Result Required. 350 Sodium Potassium Chloride Carbon Dioxide Anion Gap BUN Creatinine Est GFR (CKD-EPI)AfAm Est GFR (CKD-EPI)NonAf POC Glucometer 165 Random Glucose Calcium Phosphorus Magnesium Total Bilirubin AST ALT Alkaline Phosphatase Total Protein Albumin 06/05/19 06/05/19 06/05/19 05:40 05:40 11:15 WBC 14.0 H RBC 4.21 Hgb 9.5 L Hct 29.9 L MCV 71.0 L MCH 22.7 L MCHC 32.0 RDW 17.0 H Plt Count 273 MPV 9.1 Anticoagulation Therapy Puncture Site ABG pH ABG pCO2 at Pt Temp ABG pO2 at Pt Temp ABG HCO3 ABG O2 Sat (Measured) ABG O2 Content ABG Base Excess Gaetano Test O2 Delivery Device Oxygen Flow Rate Vent Mode Vent Rate Mechanical Rate PEEP Pressure Support Vent Sodium 140 140 Potassium 3.9 4.0 Chloride 103 104 Carbon Dioxide 34 H 30 Anion Gap 4 L 7 L BUN 19.7 H 16.7 Creatinine 1.0 1.0 Est GFR (CKD-EPI)AfAm 61.19 61.19 Est GFR (CKD-EPI)NonAf 52.79 52.79 POC Glucometer Random Glucose 98 129 H Calcium 8.3 L 8.2 L Phosphorus 2.3 L 3.3 Magnesium 2.0 2.0 Total Bilirubin 0.3 AST 46 H ALT 29 Alkaline Phosphatase 82 Total Protein 6.3 L Albumin 2.4 L Active Medications Generic Name Dose Route Start Last Admin Trade Name Freq PRN Reason Stop Dose Admin Acetylcysteine 600 mg 06/05/19 08:00 06/05/19 08:14 Mucomyst 20 Oral / Inh Use Only* NEB 600 mg RBID [facility] Administration Albuterol Sulfate 1 amp 06/04/19 21:42 Ventolin 0.083% Nebulizer Soln - NEB Q6H PRN SHORT OF BREATH/WHEEZING Albuterol Sulfate 1 amp 06/05/19 08:00 06/05/19 08:14 Ventolin 0.083% Nebulizer Soln - NEB 1 amp RTID [facility] Administration Carbidopa/Levodopa 1 each 06/05/19 07:00 06/05/19 12:01 Sinemet 25/100 - PO 1 each TID@0700,1200,1900 [facility] Administration Chlorhexidine Gluconate 1 applic 06/04/19 22:00 06/04/19 21:49 Hibiclens For Decolonization - TP 1 applic HS [facility] Administration Heparin Sodium (Porcine) 5,000 unit 06/04/19 22:00 06/05/19 14:38 Heparin - SQ 5,000 unit TID [facility] Administration Piperacillin Sod/Tazobactam 50 mls @ 100 mls/hr 06/05/19 02:00 06/05/19 09:09 Sod 3.375 gm/ Dextrose IVPB 100 mls/hr Q8H-IV [facility] Administration Protocol Propofol 1,000,000 mcg in 100 mls @ 1.87 mls/hr 06/04/19 22:15 06/05/19 10:05 Diprivan - IVPB 25 mcg/kg/min TITR [facility] 9.349 mls/hr Titration Protocol 5 MCG/KG/MIN Methylprednisolone Sodium Succinate 40 mg 06/05/19 10:00 06/05/19 12:01 Solu-Medrol - IVPUSH 40 mg BID [facility] Administration Mupirocin 1 applic 06/04/19 22:00 06/05/19 10:12 Bactroban Ointment (For Decolonization) - NS 06/09/19 21:59 1 applic BID [facility] Administration Non-Formulary Medication 1 each 06/05/19 10:00 06/05/19 10:00 Rotigotine [Neupro] TD 1 each DAILY [facility] Administration Pantoprazole Sodium 40 mg 06/05/19 10:00 06/05/19 09:09 Protonix Iv IVPUSH 40 mg DAILY [facility] Administration Rivastigmine 1 each 06/05/19 10:00 06/05/19 10:01 Exelon Patch 4.6mg/24 Hours - TD 1 each DAILY [facility] Administration ASSESSMENT/PLAN: Ms. Prescott is an 79y/o female with Parkinson's and dementia who presents with AMS and cough x 4 days. Pt was hypoxic to the 80s at ED presentation. #acute hypoxic respiratory failure 2/2 multilobar PNA and sepsis -CXR improved post-intubation -flu negative -echo- normal EF, impaired relaxation, elevated filling pressures, TR, MR -duonebs TID -prednisone 20mg daily -zosyn 3.375g Q8H -zithromax 500mg IV daily -ID following #AMS toxic metabolic encephalopathy vs less likely CVA -CT head negative for acute processes -urine cx negative -blood cx pending- Staph coag negative in 1 bottle, new cultures prelim negative -dietary following -speech following #sacral skin tear -surgery consulted- management per note #leukocytosis -from infection vs steroid use -mild improvement continues -continue monitor #JOS, resolved -1/2 NS with K -nephro following #anemia of chronic disease -microcytosis but low TIBC, unsaturated IBC, and high ferritin #Parkinson's and dementia -continue Sinimet, modified dose for NG tube, @0700, 1200, 1900 -rivostigmine patch -rotigotine patch #mild hypophosphatemia, resolved #lactic acidosis, resolved #transaminitis, improved DVT ppx heparin GI ppx protonix FEN 1/2 NS + K at 83mL/hr monitor labs NG feeds Spoke to daughter about goals of care. She is not currently interested in PEG placement because she has had difficulty with removal in the past. If pt does not improve, she and her siblings will discuss options. Pt has no advance directive or living will. Visit type - Emergency Visit Emergency Visit: Yes ED Registration Date: 06/01/19 Care time: The patient presented to the Emergency Department on the above date and was hospitalized for further evaluation of their emergent condition. - New Patient This patient is new to me today: No - Critical Care Critical Care patient: Yes Total Critical Care Time (in minutes): 35 Critical Care Statement: The care of this patient involved high complexity decision making to prevent further life threatening deterioration of the patient 's condition and/or to evaluate & treat vital organ system(s) failure or risk of failure. - Discharge Referral Referred to [facility] Med [facility] No ATTENDING PHYSICIAN STATEMENT I saw and evaluated the patient. I reviewed the resident's note and discussed the case with the resident. I agree with the resident's findings and plan as documented. SUBJECTIVE: OBJECTIVE: ASSESSMENT AND PLAN:
--- NOTE | 2019-06-05 15:49 | PN ---
Teaching Attending Note Name of Resident: Pamela Wolf ATTENDING PHYSICIAN STATEMENT I saw and evaluated the patient. I reviewed the resident's note and discussed the case with the resident. I agree with the resident's findings and plan as documented. SUBJECTIVE: seen at 9 am . intubated. Events over night were notable for acute resp failure and intubation OBJECTIVE: intubated, sedated. round equal pupils. MMM CV: RRR Lungs: good air entry b/l anteriorly. clear Abd: soft, NT, Nd , NL BS Ext: No edema ASSESSMENT AND PLAN: 79 y/o lady with h/o Parkinson Disease and dementia who presented with AMS. 1- Acute hypercapnic resp failure . 2- PNA , likely aspirationPNA 3- JOS : improved. 4- Rhabdo 5- thrombocytopenia: resolved 6- h/o HTN 7- h/o DM 8- AMS: acute metabolic encephalopathy 9- h/o dementia 10 - microcytic anemia 11- contaminant blood cx Plan : - cont Vent support. extubate when possible. - increase dose of steroids and change to Solu-medrol - resume TF - received lasix yesterday - cont to hold IVF - case was d/w Dr. Garcias - Cont zosyn - repeat blood cx still neg - monitor electrolytes - cont Sinemet - hepatin SQ - cont SSI ICU level of care . will revisit goals of care with the family Critical Care Total Critical Care Time (in minutes): 30 Critical Care Statement: The care of this patient involved high complexity decision making to prevent further life threatening deterioration of the patient 's condition and/or to evaluate & treat vital organ system(s) failure or risk of failure.
--- NOTE | 2019-06-05 15:52 | PN ---
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, Physician History of Present Illness: Pt seen and examined at bedside. She is now in the ICU. She is intubated. - Current Medication List Current Medications: Active Medications Acetylcysteine (Mucomyst 20 Oral / Inh Use Only*) 600 mg NEB RBID [facility] Last Admin: 06/05/19 08:14 Dose: 600 mg Albuterol Sulfate (Ventolin 0.083% Nebulizer Soln -) 1 amp NEB Q6H PRN PRN Reason: SHORT OF BREATH/WHEEZING Albuterol Sulfate (Ventolin 0.083% Nebulizer Soln -) 1 amp NEB RTID [facility] Last Admin: 06/05/19 08:14 Dose: 1 amp Carbidopa/Levodopa (Sinemet 25/100 -) 1 each PO TID@0700,1200,1900 [facility] Last Admin: 06/05/19 12:01 Dose: 1 each Chlorhexidine Gluconate (Hibiclens For Decolonization -) 1 applic TP HS [facility] Last Admin: 06/04/19 21:49 Dose: 1 applic Heparin Sodium (Porcine) (Heparin -) 5,000 unit SQ TID [facility] Last Admin: 06/05/19 14:38 Dose: 5,000 unit Piperacillin Sod/Tazobactam (Sod 3.375 gm/ Dextrose) 50 mls @ 100 mls/hr IVPB Q8H-IV [facility]; Protocol Last Admin: 06/05/19 09:09 Dose: 100 mls/hr Propofol (Diprivan -) 1,000,000 mcg in 100 mls @ 1.87 mls/hr IVPB TITR [facility]; Protocol Last Titration: 06/05/19 10:05 Dose: 25 mcg/kg/min, 9.349 mls/hr Methylprednisolone Sodium Succinate (Solu-Medrol -) 40 mg IVPUSH BID [facility] Last Admin: 06/05/19 12:01 Dose: 40 mg Mupirocin (Bactroban Ointment (For Decolonization) -) 1 applic NS BID [facility] Stop: 06/09/19 21:59 Last Admin: 06/05/19 10:12 Dose: 1 applic Non-Formulary Medication (Rotigotine [Neupro]) 1 each TD DAILY [facility] Last Admin: 06/05/19 10:00 Dose: 1 each Pantoprazole Sodium (Protonix Iv) 40 mg IVPUSH DAILY [facility] Last Admin: 06/05/19 09:09 Dose: 40 mg Rivastigmine (Exelon Patch 4.6mg/24 Hours -) 1 each TD DAILY [facility] Last Admin: 06/05/19 10:01 Dose: 1 each - Objective Vital Signs: Vital Signs Temperature 98.6 F 06/05/19 06:13 Pulse Rate 79 06/05/19 12:00 Respiratory Rate 16 06/05/19 12:00 Blood Pressure 104/72 06/05/19 12:00 O2 Sat by Pulse Oximetry (%) 100 06/05/19 14:00 Constitutional: Yes: Calm Eyes: Yes: Conjunctiva Clear HENT: Yes: Atraumatic Cardiovascular: Yes: S1, S2 Respiratory: Yes: Intubated, Mechanically Ventilated Gastrointestinal: Yes: Soft Genitourinary: Yes: WNL Musculoskeletal: Yes: WNL Edema: No Neurological: Yes: Confusion, Lethargy Labs: CBC, BMP 06/05/19 05:40 06/05/19 11:15 INR, PTT INR 1.16 (0.83-1.09) H 06/01/19 09:40 Problem List - Problems (1) Rhabdomyolysis Code(s): M62.82 - RHABDOMYOLYSIS (2) JOS (acute kidney injury) Code(s): N17.9 - ACUTE KIDNEY FAILURE, UNSPECIFIED (3) Pneumonia Code(s): J18.9 - PNEUMONIA, UNSPECIFIED ORGANISM (4) Sepsis Code(s): A41.9 - SEPSIS, UNSPECIFIED ORGANISM Assessment/Plan Current Medications Generic Name Dose Route Start Last Admin Trade Name Freq PRN Reason Stop Dose Admin Acetylcysteine 600 mg 06/05/19 08:00 06/05/19 08:14 Mucomyst 20 Oral / Inh Use Only* NEB 600 mg RBID [facility] Administration Albuterol Sulfate 1 amp 06/04/19 21:42 Ventolin 0.083% Nebulizer Soln - NEB Q6H PRN SHORT OF BREATH/WHEEZING Albuterol Sulfate 1 amp 06/05/19 08:00 06/05/19 08:14 Ventolin 0.083% Nebulizer Soln - NEB 1 amp RTID [facility] Administration Carbidopa/Levodopa 1 each 06/05/19 07:00 06/05/19 12:01 Sinemet 25/100 - PO 1 each TID@0700,1200,1900 [facility] Administration Chlorhexidine Gluconate 1 applic 06/04/19 22:00 06/04/19 21:49 Hibiclens For Decolonization - TP 1 applic HS [facility] Administration Heparin Sodium (Porcine) 5,000 unit 06/04/19 22:00 06/05/19 14:38 Heparin - SQ 5,000 unit TID [facility] Administration Piperacillin Sod/Tazobactam 50 mls @ 100 mls/hr 06/05/19 02:00 06/05/19 09:09 Sod 3.375 gm/ Dextrose IVPB 100 mls/hr Q8H-IV [facility] Administration Protocol Propofol 1,000,000 mcg in 100 mls @ 1.87 mls/hr 06/04/19 22:15 06/05/19 10:05 Diprivan - IVPB 25 mcg/kg/min TITR [facility] 9.349 mls/hr Titration Protocol 5 MCG/KG/MIN Methylprednisolone Sodium Succinate 40 mg 06/05/19 10:00 06/05/19 12:01 Solu-Medrol - IVPUSH 40 mg BID [facility] Administration Mupirocin 1 applic 06/04/19 22:00 06/05/19 10:12 Bactroban Ointment (For Decolonization) - NS 06/09/19 21:59 1 applic BID [facility] Administration Non-Formulary Medication 1 each 06/05/19 10:00 06/05/19 10:00 Rotigotine [Neupro] TD 1 each DAILY [facility] Administration Pantoprazole Sodium 40 mg 06/05/19 10:00 06/05/19 09:09 Protonix Iv IVPUSH 40 mg DAILY [facility] Administration Rivastigmine 1 each 06/05/19 10:00 06/05/19 10:01 Exelon Patch 4.6mg/24 Hours - TD 1 each DAILY [facility] Administration Impression 1. JOS 2. sepsis 3. PNA 4. dementia 5. parkinsons 6. lactic acidosis 7. rhabdo 8. DM 9. HTN Plan - renal function stable - lasix prn - cont feeds - discussed with ICU team - abx per primary team
[2019-06-05] MEDS: CHLORHEXIDINE GLUCONATE 4% CLEANSER FOR DECOLONIZATION TP SCH (21:28)
[2019-06-06] MEDS ORDERED: DEXTROSE 5%-WATER - 50 ML IVPB ONE ×3 (01:22→15:40)
[2019-06-06] MEDS ORDERED: PIPERACILLIN/TAZOBACTAM 3.375 GM VIAL IVPB ONE ×3 (01:22→15:40)
[2019-06-06] MEDS: PIPERACILLIN/TAZOB 3.375 GM 3.375 GM in DEXTROSE 5%-WATER - 50 ML IVPB SCH ×3 (01:28→16:59)
[2019-06-06 05:59] LABS: HEMATOCRIT 32.1 % (32.4-45.2); HEMOGLOBIN 10.2 GM/dL (10.7-15.3); MCH 22.5 pg (25.7-33.7); MCHC 31.7 g/dl (32.0-36.0); MEAN CELL VOLUME 70.9 fl (80-96); MEAN PLT VOLUME 9.1 fl (7.5-11.1); PLATELET COUNT 308 K/MM3 (134-434); RBC 4.52 M/mm3 (3.60-5.2); RDW 16.3 % (11.6-15.6); WHITE BLOOD COUNT 14.1 K/mm3 (4.0-10.0)
[2019-06-06] MEDS: CARBIDOPA/LEVODOPA 25/100 TABLET (FP) PO SCH ×3 (06:00→18:25)
[2019-06-06] MEDS: HEPARIN NA (PORCINE) 5,000 UNITS/ML 1ML VIAL SQ SCH ×3 (06:00→21:10)
[2019-06-06] MEDS: PROPOFOL 1,000,000 MCG/100 ML VIAL IVPB SCH (06:00)
[2019-06-06 06:28] LABS: ALBUMIN 2.3 g/dl (3.4-5.0); BILIRUBIN,TOTAL 0.4 mg/dL (0.2-1); CALCIUM 8.1 mg/dL (8.5-10.1); PHOSPHOROUS 3.4 mg/dL (2.5-4.9); POTASSIUM 4.1 mmol/L (3.5-5.1); TOT PROT 6.6 g/dl (6.4-8.2)
[2019-06-06 08:29] LABS: MAGNESIUM 2.3 mg/dL (1.8-2.4)
[2019-06-06] MEDS: ACETYLCYSTEINE 20% 200MG/ML 4 ML VIAL *FOR ORAL / INH USE ONLY NEB SCH ×2 (08:29→20:55)
[2019-06-06] MEDS: ALBUTEROL SO4 0.083% IH SOL 2.5 MG/3 ML VIAL.NEB. NEB SCH ×3 (08:29→20:55)
[2019-06-06] MEDS: PANTOPRAZOLE SODIUM 40 MG VIAL IVPUSH SCH (09:00)
[2019-06-06] MEDS: RIVASTIGMINE 4.6 MG/24 HOURS TRANSDERMAL PATCH TD SCH (09:01)
[2019-06-06] MEDS: PATIENT'S OWN MEDICATION (NON-FORMULARY) (Rotigotine [Neupro] 1 EACH) TD SCH (09:02)
[2019-06-06] MEDS: MUPIROCIN 2% TOPICAL OINTMENT FOR DECOLONIZATION NS SCH ×2 (09:02→21:11)
--- NOTE | 2019-06-06 09:02 | PN ---
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 (short form) - Note 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: Pulm/CCM SUBJECTIVE: Patient seen and examined in the ICU. -fio2 weaned down -rapid shallow breathing on PS 10 this am Intake & Output 06/02/19 06/03/19 06/04/19 06/05/19 23:59 23:59 23:59 23:59 Intake Total 2700 2520 2151 280 Output Total 50 Balance 2700 2520 2101 280 Weight 137 lb 137 lb 6.4 oz 138 lb 10.732 oz Last Vital Signs Temp Pulse Resp BP Pulse Ox 98.6 F 80 16 119/76 100 06/05/19 06:13 06/05/19 06:13 06/05/19 09:00 06/05/19 06:13 06/05/19 06:00 Active Medications Acetylcysteine (Mucomyst 20 Oral / Inh Use Only*) 600 mg NEB RBID [facility] Last Admin: 06/06/19 08:29 Dose: 600 mg Albuterol Sulfate (Ventolin 0.083% Nebulizer Soln -) 1 amp NEB Q6H PRN PRN Reason: SHORT OF BREATH/WHEEZING Albuterol Sulfate (Ventolin 0.083% Nebulizer Soln -) 1 amp NEB RTID [facility] Last Admin: 06/06/19 08:29 Dose: 1 amp Carbidopa/Levodopa (Sinemet 25/100 -) 1 each PO TID@0700,1200,1900 [facility] Last Admin: 06/06/19 06:00 Dose: 1 each Chlorhexidine Gluconate (Hibiclens For Decolonization -) 1 applic TP HS [facility] Last Admin: 06/05/19 21:28 Dose: 1 applic Heparin Sodium (Porcine) (Heparin -) 5,000 unit SQ TID [facility] Last Admin: 06/06/19 06:00 Dose: 5,000 unit Piperacillin Sod/Tazobactam (Sod 3.375 gm/ Dextrose) 50 mls @ 100 mls/hr IVPB Q8H-IV [facility]; Protocol Last Admin: 06/06/19 01:28 Dose: 100 mls/hr Propofol (Diprivan -) 1,000,000 mcg in 100 mls @ 1.87 mls/hr IVPB TITR [facility]; Protocol Last Admin: 06/06/19 06:00 Dose: 5 mcg/kg/min, 1.87 mls/hr Methylprednisolone Sodium Succinate (Solu-Medrol -) 40 mg IVPUSH BID [facility] Last Admin: 06/05/19 21:28 Dose: 40 mg Mupirocin (Bactroban Ointment (For Decolonization) -) 1 applic NS BID [facility] Stop: 06/09/19 21:59 Last Admin: 06/05/19 21:29 Dose: 1 applic Non-Formulary Medication (Rotigotine [Neupro]) 1 each TD DAILY [facility] Last Admin: 06/05/19 10:00 Dose: 1 each Pantoprazole Sodium (Protonix Iv) 40 mg IVPUSH DAILY [facility] Last Admin: 06/05/19 09:09 Dose: 40 mg Rivastigmine (Exelon Patch 4.6mg/24 Hours -) 1 each TD DAILY [facility] Last Admin: 06/05/19 10:01 Dose: 1 each GENERAL: Intubated and minimal sedation, poor mental status EYES: non icteric, EOMI + LUNGS: Vented, scattered bilateral rhonchi, improves with suction HEART: tachycardic, regular rhythm, S1, S2 ABDOMEN: Soft, nontender, nondistended, normoactive bowel sounds EXTREMITIES: 2+ pulses, warm, b/l dependent pedal edema. NEUROLOGICAL: Sedated CBCD WBC 14.1 K/mm3 (4.0-10.0) H 06/06/19 05:32 RBC 4.52 M/mm3 (3.60-5.2) 06/06/19 05:32 Hgb 10.2 GM/dL (10.7-15.3) L 06/06/19 05:32 Hct 32.1 % (32.4-45.2) L 06/06/19 05:32 MCV 70.9 fl (80-96) L 06/06/19 05:32 MCHC 31.7 g/dl (32.0-36.0) L 06/06/19 05:32 RDW 16.3 % (11.6-15.6) H 06/06/19 05:32 Plt Count 308 K/MM3 (134-434) 06/06/19 05:32 MPV 9.1 fl (7.5-11.1) 06/06/19 05:32 CMP Sodium 138 mmol/L (136-145) 06/06/19 05:32 Potassium 4.1 mmol/L (3.5-5.1) 06/06/19 05:32 Chloride 103 mmol/L (98-107) 06/06/19 05:32 Carbon Dioxide 29 mmol/L (21-32) 06/06/19 05:32 Anion Gap 6 MMOL/L (8-16) L 06/06/19 05:32 BUN 24.0 mg/dL (7-18) H 06/06/19 05:32 Creatinine 1.0 mg/dL (0.55-1.3) 06/06/19 05:32 Random Glucose 165 mg/dL (74-106) H 06/06/19 05:32 Calcium 8.1 mg/dL (8.5-10.1) L 06/06/19 05:32 Total Bilirubin 0.4 mg/dL (0.2-1) 06/06/19 05:32 AST 47 U/L (15-37) H 06/06/19 05:32 ALT 26 U/L (13-61) 06/06/19 05:32 Alkaline Phosphatase 84 U/L (45-117) 06/06/19 05:32 Total Protein 6.6 g/dl (6.4-8.2) 06/06/19 05:32 Albumin 2.3 g/dl (3.4-5.0) L 06/06/19 05:32 CARDIAC ENZYMES Creatine Kinase 281 U/L (26-192) H 06/04/19 06:30 Troponin I < 0.02 ng/ml (0.00-0.05) 06/01/19 04:07 ASSESSMENT/PLAN: Acute Hypercapneic Respiratory Failure due to suspected Aspiration Parkinson Disease Dementia AMS PNA Leukocytosis Lactic acidosis ABX per ID AC Mode of vent Wean FiO2 VTE prophylaxis Eneteral feeds Medrol , taper as improves BD TX Requires ICU monitoring Lutz ACNP [id number]
[2019-06-06] MEDS: methylPREDNISolone NA SUCC 40 MG/1 ML VIAL IVPUSH SCH ×2 (09:14→21:10)
--- NOTE | 2019-06-06 09:45 | PN ---
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 (short form) - Note 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: no complailnts Vital Signs Period Temp Pulse Resp BP Sys/Campbell Pulse Ox Last 24 Hr 98.7 F-99.9 F 54-82 16-18 98-150/60-85 40-100 cor-rrr lungs decreased bs at bases abd soft,nt ext +edema CBC, BMP 06/06/19 05:32 06/06/19 05:32 Microbiology 06/01/19 00:00 Blood - Peripheral Venous Blood Culture - Final NO GROWTH AFTER 5 DAYS INCUBATION 06/01/19 00:00 Blood - Peripheral Venous Blood Culture - Final Staph Capitis Subsp Ureolyticu 06/03/19 12:00 Blood - Peripheral Venous Blood Culture - Preliminary NO GROWTH OBTAINED AFTER 48 HOURS, INCUBATION TO CONTINUE FOR 3 DAYS. 06/03/19 11:40 Blood - Peripheral Venous Blood Culture - Preliminary NO GROWTH OBTAINED AFTER 48 HOURS, INCUBATION TO CONTINUE FOR 3 DAYS. 06/04/19 06:20 Sputum - Oropharynx Suctioned Sputum Gram Stain - Final 06/04/19 06:20 Sputum - Oropharynx Suctioned Sputum Sputum Culture - Preliminary NORMAL RESPIRATORY CORINNE 06/01/19 03:00 Urine For Antigen Detection Legionella Antigen - Final 06/01/19 03:00 Urine For Antigen Detection Streptococcus pneumoniae Antigen (M - Final 06/01/19 01:20 Urine - Urine - Catheterized Urine Culture - Final NO GROWTH OBTAINED Current Medications Acetylcysteine (Mucomyst 20 Oral / Inh Use Only*) 600 mg NEB RBID [facility] Last Admin: 06/06/19 08:29 Dose: 600 mg Albuterol Sulfate (Ventolin 0.083% Nebulizer Soln -) 1 amp NEB Q6H PRN PRN Reason: SHORT OF BREATH/WHEEZING Albuterol Sulfate (Ventolin 0.083% Nebulizer Soln -) 1 amp NEB RTID [facility] Last Admin: 06/06/19 08:29 Dose: 1 amp Carbidopa/Levodopa (Sinemet 25/100 -) 1 each PO TID@0700,1200,1900 [facility] Last Admin: 06/06/19 06:00 Dose: 1 each Chlorhexidine Gluconate (Hibiclens For Decolonization -) 1 applic TP HS [facility] Last Admin: 06/05/19 21:28 Dose: 1 applic Heparin Sodium (Porcine) (Heparin -) 5,000 unit SQ TID [facility] Last Admin: 06/06/19 06:00 Dose: 5,000 unit Piperacillin Sod/Tazobactam (Sod 3.375 gm/ Dextrose) 50 mls @ 100 mls/hr IVPB Q8H-IV [facility]; Protocol Last Admin: 06/06/19 08:59 Dose: 100 mls/hr Propofol (Diprivan -) 1,000,000 mcg in 100 mls @ 1.87 mls/hr IVPB TITR [facility]; Protocol Last Admin: 06/06/19 06:00 Dose: 5 mcg/kg/min, 1.87 mls/hr Methylprednisolone Sodium Succinate (Solu-Medrol -) 40 mg IVPUSH BID [facility] Last Admin: 06/06/19 09:14 Dose: 40 mg Mupirocin (Bactroban Ointment (For Decolonization) -) 1 applic NS BID [facility] Stop: 06/09/19 21:59 Last Admin: 06/06/19 09:02 Dose: 1 applic Non-Formulary Medication (Rotigotine [Neupro]) 1 each TD DAILY [facility] Last Admin: 06/06/19 09:02 Dose: 1 each Pantoprazole Sodium (Protonix Iv) 40 mg IVPUSH DAILY [facility] Last Admin: 06/06/19 09:00 Dose: 40 mg Rivastigmine (Exelon Patch 4.6mg/24 Hours -) 1 each TD DAILY [facility] Last Admin: 06/06/19 09:01 Dose: 1 each a/p resp failure pneumonia continue zosyn
--- NOTE | 2019-06-06 11:25 | PN ---
Teaching Attending Note Name of Resident: Pamela Wolf ATTENDING PHYSICIAN STATEMENT I saw and evaluated the patient. I reviewed the resident's note and discussed the case with the resident. I agree with the resident's findings and plan as documented. SUBJECTIVE: no events over night . cont to be intubated OBJECTIVE: Intubated, sedated. round equal pupils. resists eye opening MMM CV: RRR Lungs: good air entry b/l anteriorly. clear Abd: soft, NT, Nd , NL BS. Ext: No edema. ASSESSMENT AND PLAN: 79 y/o lady with h/o Parkinson Disease and dementia who presented with AMS. 1- Acute hypercapnic resp failure . 2- PNA , likely aspiration PNA 3- JOS : improved. 4- Rhabdo 5- Thrombocytopenia: resolved 6- h/o HTN 7- h/o DM 8- AMS: acute metabolic encephalopathy 9- h/o dementia 10 - Microcytic anemia 11- contaminant blood cx Plan: - Cont Vent support. extubate when possible. - Cont steroids at current dose - Cont TF - cont to hold IVF - Cont zosyn - repeat blood cx still neg - monitor electrolytes - cont Sinemet - heparin SQ - cont SSI Daughter was updated yesterday, she understands the situation. Mom is still full code. She declines PEG tube after extubation if she cont to be at aspiration risk. She will d/w siblings and let us know final decision , hopefully by Saturday. WIll discuss hospice withthem Palliative care consult Critical Care Total Critical Care Time (in minutes): 31 Critical Care Statement: The care of this patient involved high complexity decision making to prevent further life threatening deterioration of the patient 's condition and/or to evaluate & treat vital organ system(s) failure or risk of failure.
[2019-06-06 12:17] LABS: ANISOCYTOSIS 1+; MACROCYTOSIS 0; OVALOCYTE 1+; PLATELET ESTIMATE NORMAL; TARGET CELLS 1+
--- NOTE | 2019-06-06 12:30 | PN ---
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 (short form) - Note 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: s: intubated, sedated Current Medications Acetylcysteine (Mucomyst 20 Oral / Inh Use Only*) 600 mg NEB RBID [facility] Last Admin: 06/06/19 08:29 Dose: 600 mg Albuterol Sulfate (Ventolin 0.083% Nebulizer Soln -) 1 amp NEB Q6H PRN PRN Reason: SHORT OF BREATH/WHEEZING Albuterol Sulfate (Ventolin 0.083% Nebulizer Soln -) 1 amp NEB RTID [facility] Last Admin: 06/06/19 08:29 Dose: 1 amp Carbidopa/Levodopa (Sinemet 25/100 -) 1 each PO TID@0700,1200,1900 [facility] Last Admin: 06/06/19 12:08 Dose: 1 each Chlorhexidine Gluconate (Hibiclens For Decolonization -) 1 applic TP HS [facility] Last Admin: 06/05/19 21:28 Dose: 1 applic Heparin Sodium (Porcine) (Heparin -) 5,000 unit SQ TID [facility] Last Admin: 06/06/19 06:00 Dose: 5,000 unit Piperacillin Sod/Tazobactam (Sod 3.375 gm/ Dextrose) 50 mls @ 100 mls/hr IVPB Q8H-IV [facility]; Protocol Last Admin: 06/06/19 08:59 Dose: 100 mls/hr Propofol (Diprivan -) 1,000,000 mcg in 100 mls @ 1.87 mls/hr IVPB TITR [facility]; Protocol Last Admin: 06/06/19 06:00 Dose: 5 mcg/kg/min, 1.87 mls/hr Methylprednisolone Sodium Succinate (Solu-Medrol -) 40 mg IVPUSH BID [facility] Last Admin: 06/06/19 09:14 Dose: 40 mg Mupirocin (Bactroban Ointment (For Decolonization) -) 1 applic NS BID [facility] Stop: 06/09/19 21:59 Last Admin: 06/06/19 09:02 Dose: 1 applic Non-Formulary Medication (Rotigotine [Neupro]) 1 each TD DAILY [facility] Last Admin: 06/06/19 09:02 Dose: 1 each Pantoprazole Sodium (Protonix Iv) 40 mg IVPUSH DAILY [facility] Last Admin: 06/06/19 09:00 Dose: 40 mg Rivastigmine (Exelon Patch 4.6mg/24 Hours -) 1 each TD DAILY [facility] Last Admin: 06/06/19 09:01 Dose: 1 each Vital Signs Period Temp Pulse Resp BP Sys/Campbell Pulse Ox Last 24 Hr 98.7 F-99.9 F 54-82 16-18 98-127/60-79 40-100 Constitutional: Yes: Other (+ ETT) Cardiovascular: Yes: Regular Rate and Rhythm Respiratory: Yes: Other (= breath sounds b/l) Gastrointestinal: Yes: Soft Edema: No Neurological: Yes: Other (sedated on vent) not agitated no jaundice, diaphoresis Chest X-ray: Report Reviewed EKG: Image Reviewed Assessment/Plan echo 05/2019 nl LV/RV function, impaired relaxation, elevated filling pressures, RV not well visualized, mild to mod MR, mild mod TR CXR: kenyon infiltrates and congestive changes predominantly RUL and L base PNA, sepsis, acute respiratory failure 2/2 suspected aspiration - manage per critical care, ID; vent support - intubated after suspected aspiration event - lasix per critical care - nl LV function on echo - cautious use of IVF HTN: - holding diovan in setting of JOS, bp has been stable DM: - manage per primary dementia, parkinson's: - manage per primary JOS, rhabdo: - renal following - CK downtrending with IVF - Cr improving - monitor volume status while receiving IVF estimated critical care time = 35 min
--- NOTE | 2019-06-06 16:42 | PN ---
Physical Exam: SUBJECTIVE: Patient seen and examined. Pt is non-verbal. OBJECTIVE: Vital Signs Period Temp Pulse Resp BP Sys/Campbell Pulse Ox Last 24 Hr 98.7 F-99.6 F 54-82 16-18 96-129/57-73 40-100 GENERAL: Sedated HEAD: Normal with no signs of trauma. EYES: PERRL, conjunctiva clear. ENT: Ears normal, nares patent, moist mucous membranes. NECK: Trachea midline LUNGS: RUL rhonchi HEART: Regular rate and rhythm, no murmur ABDOMEN: Soft, nondistended, normoactive bowel sounds EXTREMITIES: Warm, well-perfused, trace edema. NEUROLOGICAL: Cranial nerves II through XII grossly intact. PSYCH: Normal mood, normal affect. SKIN: Warm, dry, normal turgor Laboratory Results - last 24 hr 06/05/19 06/06/19 06/06/19 21:24 05:32 05:32 WBC 14.1 H RBC 4.52 Hgb 10.2 L Hct 32.1 L MCV 70.9 L MCH 22.5 L MCHC 31.7 L RDW 16.3 H Plt Count 308 MPV 9.1 Neutrophils % (Manual) 76.0 Band Neutrophils % 0.0 Lymphocytes % (Manual) 14.0 D Monocytes % (Manual) 1 L Eosinophils % (Manual) 0.0 D Basophils % (Manual) 0.0 Myelocytes % (Man) 1 D Promyelocytes % (Man) 0 Blast Cells % (Manual) 0 Nucleated RBC % 0 Metamyelocytes 1 D Hypochromia 1+ Platelet Estimate Normal Polychromasia 1+ Poikilocytosis 1+ Anisocytosis 1+ Microcytosis 1+ Macrocytosis 0 Target Cells 1+ Ovalocytes 1+ Sodium 138 Potassium 4.1 Chloride 103 Carbon Dioxide 29 Anion Gap 6 L BUN 24.0 H Creatinine 1.0 Est GFR (CKD-EPI)AfAm 61.19 Est GFR (CKD-EPI)NonAf 52.79 POC Glucometer 149 Random Glucose 165 H Calcium 8.1 L Phosphorus 3.4 Magnesium 2.3 Total Bilirubin 0.4 AST 47 H ALT 26 Alkaline Phosphatase 84 Total Protein 6.6 Albumin 2.3 L 06/06/19 05:46 WBC RBC Hgb Hct MCV MCH MCHC RDW Plt Count MPV Neutrophils % (Manual) Band Neutrophils % Lymphocytes % (Manual) Monocytes % (Manual) Eosinophils % (Manual) Basophils % (Manual) Myelocytes % (Man) Promyelocytes % (Man) Blast Cells % (Manual) Nucleated RBC % Metamyelocytes Hypochromia Platelet Estimate Polychromasia Poikilocytosis Anisocytosis Microcytosis Macrocytosis Target Cells Ovalocytes Sodium Potassium Chloride Carbon Dioxide Anion Gap BUN Creatinine Est GFR (CKD-EPI)AfAm Est GFR (CKD-EPI)NonAf POC Glucometer 178 Random Glucose Calcium Phosphorus Magnesium Total Bilirubin AST ALT Alkaline Phosphatase Total Protein Albumin Active Medications Generic Name Dose Route Start Last Admin Trade Name Freq PRN Reason Stop Dose Admin Acetylcysteine 600 mg 06/05/19 08:00 06/06/19 08:29 Mucomyst 20 Oral / Inh Use Only* NEB 600 mg RBID [facility] Administration Albuterol Sulfate 1 amp 06/04/19 21:42 Ventolin 0.083% Nebulizer Soln - NEB Q6H PRN SHORT OF BREATH/WHEEZING Albuterol Sulfate 1 amp 06/05/19 08:00 06/06/19 08:29 Ventolin 0.083% Nebulizer Soln - NEB 1 amp RTID [facility] Administration Carbidopa/Levodopa 1 each 06/05/19 07:00 06/06/19 12:08 Sinemet 25/100 - PO 1 each TID@0700,1200,1900 [facility] Administration Chlorhexidine Gluconate 1 applic 06/04/19 22:00 06/05/19 21:28 Hibiclens For Decolonization - TP 1 applic HS [facility] Administration Heparin Sodium (Porcine) 5,000 unit 06/04/19 22:00 06/06/19 12:59 Heparin - SQ 5,000 unit TID [facility] Administration Piperacillin Sod/Tazobactam 50 mls @ 100 mls/hr 06/05/19 02:00 06/06/19 08:59 Sod 3.375 gm/ Dextrose IVPB 100 mls/hr Q8H-IV [facility] Administration Protocol Propofol 1,000,000 mcg in 100 mls @ 1.87 mls/hr 06/04/19 22:15 06/06/19 06:00 Diprivan - IVPB 5 mcg/kg/min TITR [facility] 1.87 mls/hr Administration Protocol 5 MCG/KG/MIN Methylprednisolone Sodium Succinate 40 mg 06/05/19 10:00 01/11/20 09:14 Solu-Medrol - IVPUSH 40 mg BID [facility] Administration Mupirocin 1 applic 06/04/19 22:00 06/06/19 09:02 Bactroban Ointment (For Decolonization) - NS 06/09/19 21:59 1 applic BID [facility] Administration Non-Formulary Medication 1 each 06/05/19 10:00 06/06/19 09:02 Rotigotine [Neupro] TD 1 each DAILY [facility] Administration Pantoprazole Sodium 40 mg 06/05/19 10:00 06/06/19 09:00 Protonix Iv IVPUSH 40 mg DAILY [facility] Administration Rivastigmine 1 each 06/05/19 10:00 06/06/19 09:01 Exelon Patch 4.6mg/24 Hours - TD 1 each DAILY [facility] Administration ASSESSMENT/PLAN: Ms. Prescott is an 79y/o female with Parkinson's and dementia who presents with AMS and cough x 4 days. Pt was hypoxic to the 80s at ED presentation. #acute hypoxic respiratory failure 2/2 multilobar PNA and sepsis -CXR improved post-intubation -flu negative -echo- normal EF, impaired relaxation, elevated filling pressures, TR, MR -duonebs TID -prednisone 20mg daily -zosyn 3.375g Q8H -zithromax 500mg IV daily -ID following #AMS toxic metabolic encephalopathy vs less likely CVA -CT head negative for acute processes -urine cx negative -blood cx pending- Staph coag negative in 1 bottle, new cultures prelim negative -dietary following -speech following #sacral skin tear -surgery consulted- management per note #leukocytosis -from infection vs steroid use -mild improvement continues -continue monitor #JOS, resolved -1/2 NS with K -nephro following #anemia of chronic disease -microcytosis but low TIBC, unsaturated IBC, and high ferritin #Parkinson's and dementia -continue Sinimet, modified dose for NG tube, @0700, 1200, 1900 -rivostigmine patch -rotigotine patch #mild hypophosphatemia, resolved #lactic acidosis, resolved #transaminitis, improved DVT ppx heparin GI ppx protonix FEN 1/2 NS + K at 83mL/hr monitor labs NG feeds Visit type - Emergency Visit Emergency Visit: Yes ED Registration Date: 01/06/20 Care time: The patient presented to the Emergency Department on the above date and was hospitalized for further evaluation of their emergent condition. - New Patient This patient is new to me today: No - Critical Care Critical Care patient: Yes Total Critical Care Time (in minutes): 35 Critical Care Statement: The care of this patient involved high complexity decision making to prevent further life threatening deterioration of the patient 's condition and/or to evaluate & treat vital organ system(s) failure or risk of failure. - Discharge Referral Referred to [facility] Med [facility] No ATTENDING PHYSICIAN STATEMENT I saw and evaluated the patient. I reviewed the resident's note and discussed the case with the resident. I agree with the resident's findings and plan as documented. SUBJECTIVE: OBJECTIVE: ASSESSMENT AND PLAN:
--- NOTE | 2019-06-06 18:17 | PN ---
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, Physician History of Present Illness: Pt seen and examined at bedside. She remains in the ICU. She remains intubated. - Current Medication List Current Medications: Active Medications Acetylcysteine (Mucomyst 20 Oral / Inh Use Only*) 600 mg NEB RBID [facility] Last Admin: 06/06/19 08:29 Dose: 600 mg Albuterol Sulfate (Ventolin 0.083% Nebulizer Soln -) 1 amp NEB Q6H PRN PRN Reason: SHORT OF BREATH/WHEEZING Albuterol Sulfate (Ventolin 0.083% Nebulizer Soln -) 1 amp NEB RTID [facility] Last Admin: 06/06/19 14:30 Dose: 1 amp Carbidopa/Levodopa (Sinemet 25/100 -) 1 each PO TID@0700,1200,1900 [facility] Last Admin: 06/06/19 12:08 Dose: 1 each Chlorhexidine Gluconate (Hibiclens For Decolonization -) 1 applic TP HS [facility] Last Admin: 06/05/19 21:28 Dose: 1 applic Heparin Sodium (Porcine) (Heparin -) 5,000 unit SQ TID [facility] Last Admin: 06/06/19 12:59 Dose: 5,000 unit Piperacillin Sod/Tazobactam (Sod 3.375 gm/ Dextrose) 50 mls @ 100 mls/hr IVPB Q8H-IV [facility]; Protocol Last Admin: 06/06/19 16:59 Dose: 100 mls/hr Propofol (Diprivan -) 1,000,000 mcg in 100 mls @ 1.87 mls/hr IVPB TITR [facility]; Protocol Last Admin: 06/06/19 06:00 Dose: 5 mcg/kg/min, 1.87 mls/hr Methylprednisolone Sodium Succinate (Solu-Medrol -) 40 mg IVPUSH BID [facility] Last Admin: 06/06/19 09:14 Dose: 40 mg Mupirocin (Bactroban Ointment (For Decolonization) -) 1 applic NS BID [facility] Stop: 06/09/19 21:59 Last Admin: 06/06/19 09:02 Dose: 1 applic Non-Formulary Medication (Rotigotine [Neupro]) 1 each TD DAILY [facility] Last Admin: 06/06/19 09:02 Dose: 1 each Pantoprazole Sodium (Protonix Iv) 40 mg IVPUSH DAILY [facility] Last Admin: 06/06/19 09:00 Dose: 40 mg Rivastigmine (Exelon Patch 4.6mg/24 Hours -) 1 each TD DAILY [facility] Last Admin: 06/06/19 09:01 Dose: 1 each - Objective Vital Signs: Vital Signs Temperature 98.8 F 06/06/19 14:00 Pulse Rate 71 06/06/19 18:00 Respiratory Rate 16 06/06/19 18:00 Blood Pressure 100/64 06/06/19 18:00 O2 Sat by Pulse Oximetry (%) 100 06/06/19 18:00 Constitutional: Yes: Calm Eyes: Yes: Conjunctiva Clear HENT: Yes: Atraumatic Neck: Yes: Supple Cardiovascular: Yes: S1, S2 Respiratory: Yes: Mechanically Ventilated Gastrointestinal: Yes: Soft Genitourinary: Yes: Ríos Present Musculoskeletal: Yes: Muscle Weakness Edema: No Neurological: Yes: Lethargy Labs: CBC, BMP 06/06/19 05:32 06/06/19 05:32 INR, PTT INR 1.16 (0.83-1.09) H 06/01/19 09:40 Problem List - Problems (1) Rhabdomyolysis Code(s): M62.82 - RHABDOMYOLYSIS (2) JOS (acute kidney injury) Code(s): N17.9 - ACUTE KIDNEY FAILURE, UNSPECIFIED (3) Pneumonia Code(s): J18.9 - PNEUMONIA, UNSPECIFIED ORGANISM (4) Sepsis Code(s): A41.9 - SEPSIS, UNSPECIFIED ORGANISM Assessment/Plan Current Medications Generic Name Dose Route Start Last Admin Trade Name Freq PRN Reason Stop Dose Admin Acetylcysteine 600 mg 06/05/19 08:00 06/06/19 08:29 Mucomyst 20 Oral / Inh Use Only* NEB 600 mg RBID [facility] Administration Albuterol Sulfate 1 amp 06/04/19 21:42 Ventolin 0.083% Nebulizer Soln - NEB Q6H PRN SHORT OF BREATH/WHEEZING Albuterol Sulfate 1 amp 06/05/19 08:00 06/06/19 14:30 Ventolin 0.083% Nebulizer Soln - NEB 1 amp RTID [facility] Administration Carbidopa/Levodopa 1 each 06/05/19 07:00 06/06/19 12:08 Sinemet 25/100 - PO 1 each TID@0700,1200,1900 [facility] Administration Chlorhexidine Gluconate 1 applic 06/04/19 22:00 06/05/19 21:28 Hibiclens For Decolonization - TP 1 applic HS [facility] Administration Heparin Sodium (Porcine) 5,000 unit 06/04/19 22:00 06/06/19 12:59 Heparin - SQ 5,000 unit TID [facility] Administration Piperacillin Sod/Tazobactam 50 mls @ 100 mls/hr 06/05/19 02:00 06/06/19 16:59 Sod 3.375 gm/ Dextrose IVPB 100 mls/hr Q8H-IV [facility] Administration Protocol Propofol 1,000,000 mcg in 100 mls @ 1.87 mls/hr 06/04/19 22:15 06/06/19 06:00 Diprivan - IVPB 5 mcg/kg/min TITR [facility] 1.87 mls/hr Administration Protocol 5 MCG/KG/MIN Methylprednisolone Sodium Succinate 40 mg 06/05/19 10:00 06/06/19 09:14 Solu-Medrol - IVPUSH 40 mg BID [facility] Administration Mupirocin 1 applic 06/04/19 22:00 06/06/19 09:02 Bactroban Ointment (For Decolonization) - NS 06/09/19 21:59 1 applic BID [facility] Administration Non-Formulary Medication 1 each 06/05/19 10:00 06/06/19 09:02 Rotigotine [Neupro] TD 1 each DAILY [facility] Administration Pantoprazole Sodium 40 mg 06/05/19 10:00 06/06/19 09:00 Protonix Iv IVPUSH 40 mg DAILY [facility] Administration Rivastigmine 1 each 06/05/19 10:00 06/06/19 09:01 Exelon Patch 4.6mg/24 Hours - TD 1 each DAILY [facility] Administration Impression 1. JOS 2. sepsis 3. PNA 4. dementia 5. parkinsons 6. lactic acidosis 7. rhabdo 8. DM 9. HTN Plan - renal function remains stable - vent support - will hold off lasix today as bp is low - pt tolerating feeds - discussed with ICU team - abx per primary team
[2019-06-06] MEDS: CHLORHEXIDINE GLUCONATE 4% CLEANSER FOR DECOLONIZATION TP SCH (21:10)
[2019-06-07] MEDS ORDERED: PIPERACILLIN/TAZOBACTAM 3.375 GM VIAL IVPB ONE ×4 (02:53→20:18)
[2019-06-07] MEDS ORDERED: DEXTROSE 5%-WATER - 50 ML IVPB ONE ×4 (02:53→20:18)
[2019-06-07] MEDS: PIPERACILLIN/TAZOB 3.375 GM 3.375 GM in DEXTROSE 5%-WATER - 50 ML IVPB SCH ×3 (03:11→17:03)
[2019-06-07] MEDS: PROPOFOL 1,000,000 MCG/100 ML VIAL IVPB SCH (03:12)
[2019-06-07] MEDS: HEPARIN NA (PORCINE) 5,000 UNITS/ML 1ML VIAL SQ SCH ×3 (06:11→21:17)
[2019-06-07] MEDS: CARBIDOPA/LEVODOPA 25/100 TABLET (FP) PO SCH ×3 (06:12→17:59)
[2019-06-07 06:40] LABS: HEMATOCRIT 30.2 % (32.4-45.2); HEMOGLOBIN 9.5 GM/dL (10.7-15.3); MCH 22.5 pg (25.7-33.7); MCHC 31.6 g/dl (32.0-36.0); MEAN CELL VOLUME 71.2 fl (80-96); MEAN PLT VOLUME 8.8 fl (7.5-11.1); PLATELET COUNT 314 K/MM3 (134-434); RBC 4.25 M/mm3 (3.60-5.2); RDW 16.9 % (11.6-15.6); WHITE BLOOD COUNT 12.2 K/mm3 (4.0-10.0)
[2019-06-07 06:54] LABS: ALBUMIN 2.2 g/dl (3.4-5.0); BILIRUBIN,TOTAL 0.2 mg/dL (0.2-1); BLOOD UREA NITROGEN 28.1 mg/dL (7-18); CREATININE 0.9 mg/dL (0.55-1.3); POTASSIUM 3.5 mmol/L (3.5-5.1); TOT PROT 6.1 g/dl (6.4-8.2)
[2019-06-07] MEDS ORDERED: PT OWN MED DRAWER 7, Y5N ONE ×2 (08:31→08:41)
[2019-06-07] MEDS: ACETYLCYSTEINE 20% 200MG/ML 4 ML VIAL *FOR ORAL / INH USE ONLY NEB SCH ×2 (08:32→20:45)
[2019-06-07] MEDS: ALBUTEROL SO4 0.083% IH SOL 2.5 MG/3 ML VIAL.NEB. NEB SCH ×3 (08:33→20:45)
[2019-06-07] MEDS: PANTOPRAZOLE SODIUM 40 MG VIAL IVPUSH SCH (09:03)
[2019-06-07] MEDS: methylPREDNISolone NA SUCC 40 MG/1 ML VIAL IVPUSH SCH ×2 (09:03→21:19)
[2019-06-07] MEDS: MUPIROCIN 2% TOPICAL OINTMENT FOR DECOLONIZATION NS SCH ×2 (09:04→21:17)
[2019-06-07] MEDS: RIVASTIGMINE 4.6 MG/24 HOURS TRANSDERMAL PATCH TD SCH (09:04)
[2019-06-07] MEDS: PATIENT'S OWN MEDICATION (NON-FORMULARY) (Rotigotine [Neupro] 1 EACH) TD SCH (10:04)
--- NOTE | 2019-06-07 10:33 | PN ---
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 (short form) - Note 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: intubated, sedated Vital Signs Period Temp Pulse Resp BP Sys/Campbell Pulse Ox Last 24 Hr 97.8 F-99.1 F 51-79 16-20 95-129/57-78 100-100 cor-rrr lungs decreeased bs at bases abd soft,nt ext no edema CBC, BMP 06/07/19 05:30 06/07/19 05:30 Microbiology 06/04/19 06:20 Sputum - Oropharynx Suctioned Sputum Gram Stain - Final 06/04/19 06:20 Sputum - Oropharynx Suctioned Sputum Sputum Culture - Final Yeast Like Organism 06/03/19 11:40 Blood - Peripheral Venous Blood Culture - Preliminary NO GROWTH OBTAINED AFTER 72 HOURS, INCUBATION TO CONTINUE FOR 2 DAYS. 06/03/19 12:00 Blood - Peripheral Venous Blood Culture - Preliminary NO GROWTH OBTAINED AFTER 72 HOURS, INCUBATION TO CONTINUE FOR 2 DAYS. 06/01/19 00:00 Blood - Peripheral Venous Blood Culture - Final NO GROWTH AFTER 5 DAYS INCUBATION 06/01/19 00:00 Blood - Peripheral Venous Blood Culture - Final Staph Capitis Subsp Ureolyticu 06/01/19 03:00 Urine For Antigen Detection Legionella Antigen - Final 06/01/19 03:00 Urine For Antigen Detection Streptococcus pneumoniae Antigen (M - Final 06/01/19 01:20 Urine - Urine - Catheterized Urine Culture - Final NO GROWTH OBTAINED Current Medications Acetylcysteine (Mucomyst 20 Oral / Inh Use Only*) 600 mg NEB RBID [facility] Last Admin: 06/07/19 08:32 Dose: 600 mg Albuterol Sulfate (Ventolin 0.083% Nebulizer Soln -) 1 amp NEB Q6H PRN PRN Reason: SHORT OF BREATH/WHEEZING Albuterol Sulfate (Ventolin 0.083% Nebulizer Soln -) 1 amp NEB RTID [facility] Last Admin: 06/07/19 08:33 Dose: 1 amp Carbidopa/Levodopa (Sinemet 25/100 -) 1 each PO TID@0700,1200,1900 [facility] Last Admin: 06/07/19 06:12 Dose: 1 each Chlorhexidine Gluconate (Hibiclens For Decolonization -) 1 applic TP HS [facility] Last Admin: 06/06/19 21:10 Dose: 1 applic Heparin Sodium (Porcine) (Heparin -) 5,000 unit SQ TID [facility] Last Admin: 06/07/19 06:11 Dose: 5,000 unit Piperacillin Sod/Tazobactam (Sod 3.375 gm/ Dextrose) 50 mls @ 100 mls/hr IVPB Q8H-IV [facility]; Protocol Last Admin: 06/07/19 09:03 Dose: 100 mls/hr Propofol (Diprivan -) 1,000,000 mcg in 100 mls @ 1.87 mls/hr IVPB TITR [facility]; Protocol Last Titration: 06/07/19 07:36 Dose: 0 mcg/kg/min, 0 mls/hr Methylprednisolone Sodium Succinate (Solu-Medrol -) 40 mg IVPUSH BID [facility] Last Admin: 06/07/19 09:03 Dose: 40 mg Mupirocin (Bactroban Ointment (For Decolonization) -) 1 applic NS BID [facility] Stop: 06/09/19 21:59 Last Admin: 06/07/19 09:04 Dose: 1 applic Non-Formulary Medication (Rotigotine [Neupro]) 1 each TD DAILY [facility] Last Admin: 06/07/19 10:04 Dose: 1 each Pantoprazole Sodium (Protonix Iv) 40 mg IVPUSH DAILY [facility] Last Admin: 06/07/19 09:03 Dose: 40 mg Rivastigmine (Exelon Patch 4.6mg/24 Hours -) 1 each TD DAILY [facility] Last Admin: 06/07/19 09:04 Dose: 1 each a/p resp failure pneumonia continue zosyn
--- NOTE | 2019-06-07 11:21 | PN ---
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 (short form) - Note 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: 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 Pulm/CCM Pt seen and examined in the ICU. Remains vented and with poor mental status. HD stable. Active Medications Acetylcysteine (Mucomyst 20 Oral / Inh Use Only*) 600 mg NEB RBID [facility] Last Admin: 06/07/19 08:32 Dose: 600 mg Albuterol Sulfate (Ventolin 0.083% Nebulizer Soln -) 1 amp NEB Q6H PRN PRN Reason: SHORT OF BREATH/WHEEZING Albuterol Sulfate (Ventolin 0.083% Nebulizer Soln -) 1 amp NEB RTID [facility] Last Admin: 06/07/19 08:33 Dose: 1 amp Carbidopa/Levodopa (Sinemet 25/100 -) 1 each PO TID@0700,1200,1900 [facility] Last Admin: 06/07/19 11:05 Dose: 1 each Chlorhexidine Gluconate (Hibiclens For Decolonization -) 1 applic TP HS [facility] Last Admin: 06/06/19 21:10 Dose: 1 applic Heparin Sodium (Porcine) (Heparin -) 5,000 unit SQ TID [facility] Last Admin: 06/07/19 13:00 Dose: 5,000 unit Piperacillin Sod/Tazobactam (Sod 3.375 gm/ Dextrose) 50 mls @ 100 mls/hr IVPB Q8H-IV [facility]; Protocol Last Admin: 06/07/19 09:03 Dose: 100 mls/hr Propofol (Diprivan -) 1,000,000 mcg in 100 mls @ 1.87 mls/hr IVPB TITR [facility]; Protocol Last Titration: 06/07/19 07:36 Dose: 0 mcg/kg/min, 0 mls/hr Methylprednisolone Sodium Succinate (Solu-Medrol -) 40 mg IVPUSH BID [facility] Last Admin: 06/07/19 09:03 Dose: 40 mg Mupirocin (Bactroban Ointment (For Decolonization) -) 1 applic NS BID [facility] Stop: 06/09/19 21:59 Last Admin: 06/07/19 09:04 Dose: 1 applic Non-Formulary Medication (Rotigotine [Neupro]) 1 each TD DAILY [facility] Last Admin: 06/07/19 10:04 Dose: 1 each Pantoprazole Sodium (Protonix Iv) 40 mg IVPUSH DAILY [facility] Last Admin: 06/07/19 09:03 Dose: 40 mg Rivastigmine (Exelon Patch 4.6mg/24 Hours -) 1 each TD DAILY [facility] Last Admin: 06/07/19 09:04 Dose: 1 each Vital Signs Period Temp Pulse Resp BP Sys/Campbell Pulse Ox Last 24 Hr 97.8 F-99.1 F 51-79 16-20 95-139/57-78 100-100 Intake & Output 06/04/19 06/05/19 06/06/19 06/07/19 23:59 23:59 23:59 23:59 Intake Total 2151 680 2077.2 955 Output Total 50 700 1100 400 Balance 2100 977.2 555 Weight 62.324 kg 62.9 kg 63.004 kg 61.371 kg GENERAL: Intubated and minimal sedation, grimaces to tactile stim, EYES: non icteric, EOMI + LUNGS: Vented, scattered bilateral rhonchi, improves with suction HEART: tachycardic, regular rhythm, S1, S2 ABDOMEN: Soft, nontender, nondistended, normoactive bowel sounds EXTREMITIES: 2+ pulses, warm, b/l dependent pedal edema. NEUROLOGICAL: Sedated CBC,CMP WBC 12.2 K/mm3 (4.0-10.0) H 06/07/19 05:30 RBC 4.25 M/mm3 (3.60-5.2) 06/07/19 05:30 Hgb 9.5 GM/dL (10.7-15.3) L 06/07/19 05:30 Hct 30.2 % (32.4-45.2) L 06/07/19 05:30 MCV 71.2 fl (80-96) L 06/07/19 05:30 MCH 22.5 pg (25.7-33.7) L 06/07/19 05:30 MCHC 31.6 g/dl (32.0-36.0) L 06/07/19 05:30 RDW 16.9 % (11.6-15.6) H 06/07/19 05:30 Plt Count 314 K/MM3 (134-434) 06/07/19 05:30 MPV 8.8 fl (7.5-11.1) 06/07/19 05:30 Absolute Neuts (auto) 15.7 K/mm3 (1.5-8.0) H 06/02/19 05:47 Neutrophils % 87.0 % (42.8-82.8) H 06/02/19 05:47 Neutrophils % (Manual) 76.0 % (42.8-82.8) 06/06/19 05:32 Band Neutrophils % 0.0 % 06/06/19 05:32 Lymphocytes % 8.3 % (8-40) D 06/02/19 05:47 Lymphocytes % (Manual) 14.0 % (8-40) D 06/06/19 05:32 Monocytes % 4.6 % (3.8-10.2) 06/02/19 05:47 Monocytes % (Manual) 1 % (3.8-10.2) L 06/06/19 05:32 Eosinophils % 0.0 % (0-4.5) 06/02/19 05:47 Eosinophils % (Manual) 0.0 % (0-4.5) D 06/06/19 05:32 Basophils % 0.1 % (0-2.0) 06/02/19 05:47 Basophils % (Manual) 0.0 % (0-2.0) 06/06/19 05:32 Myelocytes % (Man) 1 % (0-2) D 06/06/19 05:32 Promyelocytes % (Man) 0 % (0-2) 06/06/19 05:32 Blast Cells % (Manual) 0 % (0-0) 06/06/19 05:32 Nucleated RBC % 0 % (0-0) 06/06/19 05:32 Metamyelocytes 1 % (0-2) D 06/06/19 05:32 Hypochromia 1+ 06/06/19 05:32 Platelet Estimate Normal 06/06/19 05:32 Platelet Comment Present 06/02/19 05:47 Polychromasia 1+ 06/06/19 05:32 Poikilocytosis 1+ 06/06/19 05:32 Anisocytosis 1+ 06/06/19 05:32 Microcytosis 1+ 06/06/19 05:32 Macrocytosis 0 06/06/19 05:32 Target Cells 1+ 06/06/19 05:32 Ovalocytes 1+ 06/06/19 05:32 Sodium 137 mmol/L (136-145) 06/07/19 05:30 Potassium 3.5 mmol/L (3.5-5.1) 06/07/19 05:30 Chloride 101 mmol/L (98-107) 06/07/19 05:30 Carbon Dioxide 31 mmol/L (21-32) 06/07/19 05:30 Anion Gap 6 MMOL/L (8-16) L 06/07/19 05:30 BUN 28.1 mg/dL (7-18) H 06/07/19 05:30 Creatinine 0.9 mg/dL (0.55-1.3) 06/07/19 05:30 Est GFR (CKD-EPI)AfAm 69.50 06/07/19 05:30 Est GFR (CKD-EPI)NonAf 59.96 06/07/19 05:30 POC Glucometer 280 UNITS (80-120) 06/07/19 10:18 Random Glucose 273 mg/dL (74-106) H 06/07/19 05:30 Lactic Acid 1.1 mmol/L (0.4-2.0) 06/04/19 10:55 Calcium 8.0 mg/dL (8.5-10.1) L 06/07/19 05:30 Phosphorus 3.4 mg/dL (2.5-4.9) 06/06/19 05:32 Magnesium 2.3 mg/dL (1.8-2.4) 06/06/19 05:32 Iron 52 ug/dL (50-175) 06/04/19 06:30 TIBC 161 ug/dL (250-450) L 06/04/19 06:30 Iron Saturation 32 % (17.5-39) 06/04/19 06:30 Unsaturated IBC 109 ug/dL (200-275) L 06/04/19 06:30 Ferritin 548.5 ng/ml (8-388) H 06/04/19 06:30 Total Bilirubin 0.2 mg/dL (0.2-1) 06/07/19 05:30 AST 27 U/L (15-37) 06/07/19 05:30 ALT 52 U/L (13-61) 06/07/19 05:30 Alkaline Phosphatase 73 U/L (45-117) 06/07/19 05:30 Ammonia < 10.00 umol/L (11-32) L 06/01/19 08:55 Creatine Kinase 281 U/L (26-192) H 06/04/19 06:30 Creatine Kinase Index No Result Required. 06/04/19 06:30 CK-MB (CK-2) < 1.0 ng/mL (0.5-3.6) 06/04/19 06:30 Troponin I < 0.02 ng/ml (0.00-0.05) 06/01/19 04:07 B-Natriuretic Peptide 406.5 pg/ml (5-450) 06/01/19 00:18 Total Protein 6.1 g/dl (6.4-8.2) L 06/07/19 05:30 Albumin 2.2 g/dl (3.4-5.0) L 06/07/19 05:30 Vitamin B12 1987 pg/ml (193-986) H 06/01/19 04:07 TSH 0.79 uIU/ml (0.358-3.74) 06/01/19 09:40 Microbiology 06/03/19 12:00 Blood - Peripheral Venous Blood Culture - Preliminary NO GROWTH OBTAINED AFTER 96 HOURS, INCUBATION TO CONTINUE FOR 1 DAYS. 06/03/19 11:40 Blood - Peripheral Venous Blood Culture - Preliminary NO GROWTH OBTAINED AFTER 96 HOURS, INCUBATION TO CONTINUE FOR 1 DAYS. 06/04/19 06:20 Sputum - Oropharynx Suctioned Sputum Gram Stain - Final 06/04/19 06:20 Sputum - Oropharynx Suctioned Sputum Sputum Culture - Final Yeast Like Organism 06/01/19 00:00 Blood - Peripheral Venous Blood Culture - Final NO GROWTH AFTER 5 DAYS INCUBATION 06/01/19 00:00 Blood - Peripheral Venous Blood Culture - Final Staph Capitis Subsp Ureolyticu 06/01/19 03:00 Urine For Antigen Detection Legionella Antigen - Final 06/01/19 03:00 Urine For Antigen Detection Streptococcus pneumoniae Antigen (M - Final 06/01/19 01:20 Urine - Urine - Catheterized Urine Culture - Final NO GROWTH OBTAINED ASSESSMENT/PLAN: Acute Hypercapneic Respiratory Failure due to suspected Aspiration Parkinson Disease Dementia AMS PNA Leukocytosis Lactic acidosis -LTVV; wean FiO2 as michaela -Daily SBT -Pulm Toilet -ABX per ID -Enteral feeds -Medrol , taper as improves -Sinemet and Neupro and Rivastigmine patches -Requires ICU monitoring -VTE prophylaxis -GI prophylaxis Gini Agosto, ACNP
--- NOTE | 2019-06-07 12:32 | PN ---
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 (short form) - Note 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: s: intubated, sedated Current Medications Acetylcysteine (Mucomyst 20 Oral / Inh Use Only*) 600 mg NEB RBID [facility] Last Admin: 06/07/19 08:32 Dose: 600 mg Albuterol Sulfate (Ventolin 0.083% Nebulizer Soln -) 1 amp NEB Q6H PRN PRN Reason: SHORT OF BREATH/WHEEZING Albuterol Sulfate (Ventolin 0.083% Nebulizer Soln -) 1 amp NEB RTID [facility] Last Admin: 06/07/19 08:33 Dose: 1 amp Carbidopa/Levodopa (Sinemet 25/100 -) 1 each PO TID@0700,1200,1900 [facility] Last Admin: 06/07/19 11:05 Dose: 1 each Chlorhexidine Gluconate (Hibiclens For Decolonization -) 1 applic TP HS [facility] Last Admin: 06/06/19 21:10 Dose: 1 applic Heparin Sodium (Porcine) (Heparin -) 5,000 unit SQ TID [facility] Last Admin: 06/07/19 06:11 Dose: 5,000 unit Piperacillin Sod/Tazobactam (Sod 3.375 gm/ Dextrose) 50 mls @ 100 mls/hr IVPB Q8H-IV [facility]; Protocol Last Admin: 06/07/19 09:03 Dose: 100 mls/hr Propofol (Diprivan -) 1,000,000 mcg in 100 mls @ 1.87 mls/hr IVPB TITR [facility]; Protocol Last Titration: 06/07/19 07:36 Dose: 0 mcg/kg/min, 0 mls/hr Methylprednisolone Sodium Succinate (Solu-Medrol -) 40 mg IVPUSH BID [facility] Last Admin: 06/07/19 09:03 Dose: 40 mg Mupirocin (Bactroban Ointment (For Decolonization) -) 1 applic NS BID [facility] Stop: 06/09/19 21:59 Last Admin: 06/07/19 09:04 Dose: 1 applic Non-Formulary Medication (Rotigotine [Neupro]) 1 each TD DAILY [facility] Last Admin: 06/07/19 10:04 Dose: 1 each Pantoprazole Sodium (Protonix Iv) 40 mg IVPUSH DAILY [facility] Last Admin: 06/07/19 09:03 Dose: 40 mg Rivastigmine (Exelon Patch 4.6mg/24 Hours -) 1 each TD DAILY [facility] Last Admin: 06/07/19 09:04 Dose: 1 each Vital Signs Period Temp Pulse Resp BP Sys/Campbell Pulse Ox Last 24 Hr 97.8 F-99.1 F 51-79 16-20 95-139/57-78 100-100 Constitutional: Yes: Other (+ ETT) Cardiovascular: Yes: Regular Rate and Rhythm Respiratory: Yes: Other (= breath sounds b/l) Gastrointestinal: Yes: Soft Edema: No Neurological: Yes: Other (sedated on vent) not agitated no jaundice, diaphoresis Chest X-ray: Report Reviewed EKG: Image Reviewed Assessment/Plan echo 05/2019 nl LV/RV function, impaired relaxation, elevated filling pressures, RV not well visualized, mild to mod MR, mild mod TR CXR: kenyon infiltrates and congestive changes predominantly RUL and L base PNA, sepsis, acute respiratory failure 2/2 suspected aspiration - manage per critical care, ID; vent support - intubated after suspected aspiration event - lasix per critical care - nl LV function on echo - cautious use of IVF HTN: - holding diovan in setting of JOS, bp has been stable DM: - manage per primary dementia, parkinson's: - manage per primary JOS, rhabdo: - renal following - CK downtrending with IVF - Cr improving - monitor volume status while receiving IVF estimated critical care time = 35 min
--- NOTE | 2019-06-07 16:35 | PN ---
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, Physician History of Present Illness: Pt seen and examined at bedside. She is tolerating feeds. - Current Medication List Current Medications: Active Medications Acetylcysteine (Mucomyst 20 Oral / Inh Use Only*) 600 mg NEB RBID [facility] Last Admin: 06/07/19 08:32 Dose: 600 mg Albuterol Sulfate (Ventolin 0.083% Nebulizer Soln -) 1 amp NEB Q6H PRN PRN Reason: SHORT OF BREATH/WHEEZING Albuterol Sulfate (Ventolin 0.083% Nebulizer Soln -) 1 amp NEB RTID [facility] Last Admin: 06/07/19 08:33 Dose: 1 amp Carbidopa/Levodopa (Sinemet 25/100 -) 1 each PO TID@0700,1200,1900 [facility] Last Admin: 06/07/19 11:05 Dose: 1 each Chlorhexidine Gluconate (Hibiclens For Decolonization -) 1 applic TP HS [facility] Last Admin: 06/06/19 21:10 Dose: 1 applic Heparin Sodium (Porcine) (Heparin -) 5,000 unit SQ TID [facility] Last Admin: 06/07/19 13:00 Dose: 5,000 unit Piperacillin Sod/Tazobactam (Sod 3.375 gm/ Dextrose) 50 mls @ 100 mls/hr IVPB Q8H-IV [facility]; Protocol Last Admin: 06/07/19 09:03 Dose: 100 mls/hr Propofol (Diprivan -) 1,000,000 mcg in 100 mls @ 1.87 mls/hr IVPB TITR [facility]; Protocol Last Titration: 06/07/19 07:36 Dose: 0 mcg/kg/min, 0 mls/hr Methylprednisolone Sodium Succinate (Solu-Medrol -) 40 mg IVPUSH BID [facility] Last Admin: 06/07/19 09:03 Dose: 40 mg Mupirocin (Bactroban Ointment (For Decolonization) -) 1 applic NS BID [facility] Stop: 06/09/19 21:59 Last Admin: 06/07/19 09:04 Dose: 1 applic Non-Formulary Medication (Rotigotine [Neupro]) 1 each TD DAILY [facility] Last Admin: 06/07/19 10:04 Dose: 1 each Pantoprazole Sodium (Protonix Iv) 40 mg IVPUSH DAILY [facility] Last Admin: 06/07/19 09:03 Dose: 40 mg Rivastigmine (Exelon Patch 4.6mg/24 Hours -) 1 each TD DAILY [facility] Last Admin: 06/07/19 09:04 Dose: 1 each - Objective Vital Signs: Vital Signs Temperature 97.9 F 06/07/19 14:00 Pulse Rate 73 06/07/19 14:00 Respiratory Rate 16 06/07/19 14:00 Blood Pressure 109/66 06/07/19 14:00 O2 Sat by Pulse Oximetry (%) 100 06/07/19 10:00 Constitutional: Yes: Calm Eyes: Yes: Conjunctiva Clear HENT: Yes: Atraumatic Cardiovascular: Yes: S1, S2 Respiratory: Yes: Mechanically Ventilated Gastrointestinal: Yes: Soft Genitourinary: Yes: Ríos Present Neurological: Yes: Lethargy Labs: CBC, BMP 06/07/19 05:30 06/07/19 05:30 INR, PTT INR 1.16 (0.83-1.09) H 06/01/19 09:40 - ....Imaging Chest X-ray: Report Reviewed Problem List - Problems (1) Rhabdomyolysis Code(s): M62.82 - RHABDOMYOLYSIS (2) JOS (acute kidney injury) Code(s): N17.9 - ACUTE KIDNEY FAILURE, UNSPECIFIED (3) Pneumonia Code(s): J18.9 - PNEUMONIA, UNSPECIFIED ORGANISM (4) Sepsis Code(s): A41.9 - SEPSIS, UNSPECIFIED ORGANISM Assessment/Plan Current Medications Generic Name Dose Route Start Last Admin Trade Name Freq PRN Reason Stop Dose Admin Acetylcysteine 600 mg 06/05/19 08:00 06/07/19 08:32 Mucomyst 20 Oral / Inh Use Only* NEB 600 mg RBID [facility] Administration Albuterol Sulfate 1 amp 06/04/19 21:42 Ventolin 0.083% Nebulizer Soln - NEB Q6H PRN SHORT OF BREATH/WHEEZING Albuterol Sulfate 1 amp 06/05/19 08:00 06/07/19 08:33 Ventolin 0.083% Nebulizer Soln - NEB 1 amp RTID [facility] Administration Carbidopa/Levodopa 1 each 06/05/19 07:00 06/07/19 11:05 Sinemet 25/100 - PO 1 each TID@0700,1200,1900 [facility] Administration Chlorhexidine Gluconate 1 applic 06/04/19 22:00 06/06/19 21:10 Hibiclens For Decolonization - TP 1 applic HS [facility] Administration Heparin Sodium (Porcine) 5,000 unit 06/04/19 22:00 06/07/19 13:00 Heparin - SQ 5,000 unit TID [facility] Administration Piperacillin Sod/Tazobactam 50 mls @ 100 mls/hr 06/05/19 02:00 06/07/19 09:03 Sod 3.375 gm/ Dextrose IVPB 100 mls/hr Q8H-IV [facility] Administration Protocol Propofol 1,000,000 mcg in 100 mls @ 1.87 mls/hr 06/04/19 22:15 06/07/19 07:36 Diprivan - IVPB 0 mcg/kg/min TITR [facility] 0 mls/hr Titration Protocol 5 MCG/KG/MIN Methylprednisolone Sodium Succinate 40 mg 06/05/19 10:00 06/07/19 09:03 Solu-Medrol - IVPUSH 40 mg BID [facility] Administration Mupirocin 1 applic 06/04/19 22:00 06/07/19 09:04 Bactroban Ointment (For Decolonization) - NS 06/09/19 21:59 1 applic BID [facility] Administration Non-Formulary Medication 1 each 06/05/19 10:00 06/07/19 10:04 Rotigotine [Neupro] TD 1 each DAILY [facility] Administration Pantoprazole Sodium 40 mg 06/05/19 10:00 06/07/19 09:03 Protonix Iv IVPUSH 40 mg DAILY [facility] Administration Rivastigmine 1 each 06/05/19 10:00 06/07/19 09:04 Exelon Patch 4.6mg/24 Hours - TD 1 each DAILY [facility] Administration Impression 1. JOS 2. sepsis 3. PNA 4. dementia 5. parkinsons 6. lactic acidosis 7. rhabdo 8. DM 9. HTN 10. resp failure Plan - no great change in status - monitor bun on feeds, if rising may need to decrease feeds - monitor hg - vent support - hold off lasix for today, will evaluate tomorrow - abx per primary team
--- NOTE | 2019-06-07 19:06 | PN ---
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 (short form) - Note 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: Subjective: No events over night Objective: Vital Signs: Last Vital Signs Temp Pulse Resp BP Pulse Ox 97.9 F 60 16 109/60 98 06/07/19 14:00 06/07/19 18:00 06/07/19 18:00 06/07/19 18:00 06/07/19 18:00 Laboratory Results - last 24 hr 06/06/19 06/07/19 06/07/19 22:22 05:30 05:30 WBC 12.2 H RBC 4.25 Hgb 9.5 L Hct 30.2 L MCV 71.2 L MCH 22.5 L MCHC 31.6 L RDW 16.9 H Plt Count 314 MPV 8.8 Sodium 137 Potassium 3.5 Chloride 101 Carbon Dioxide 31 Anion Gap 6 L BUN 28.1 H Creatinine 0.9 Est GFR (CKD-EPI)AfAm 69.50 Est GFR (CKD-EPI)NonAf 59.96 POC Glucometer 242 Random Glucose 273 H Calcium 8.0 L Total Bilirubin 0.2 AST 27 ALT 52 Alkaline Phosphatase 73 Total Protein 6.1 L Albumin 2.2 L 06/07/19 06/07/19 10:18 16:43 WBC RBC Hgb Hct MCV MCH MCHC RDW Plt Count MPV Sodium Potassium Chloride Carbon Dioxide Anion Gap BUN Creatinine Est GFR (CKD-EPI)AfAm Est GFR (CKD-EPI)NonAf POC Glucometer 280 321 Random Glucose Calcium Total Bilirubin AST ALT Alkaline Phosphatase Total Protein Albumin Physical Exam: Intubated, sedated. round equal pupils. MMM CV: RRR Lungs: good air entry b/l anteriorly. clear Abd: soft, NT, Nd , NL BS. Ext: trace edema on feet ASSESSMENT AND PLAN: 79 y/o lady with h/o Parkinson Disease and dementia who presented with AMS. 1- Acute hypercapnic resp failure . 2- PNA , likely aspiration PNA 3- JOS : improved. 4- Rhabdo 5- Thrombocytopenia: resolved 6- h/o HTN 7- h/o DM 8- AMS: acute metabolic encephalopathy 9- h/o dementia 10 - Microcytic anemia 11- contaminant blood cx Plan: - Cont Vent support. extubate when possible. - Cont steroids at current dose - Cont TF - cont to hold IVF - Cont zosyn - follow final results of repeat blood cx - cont Sinemet - heparin SQ - cont SSI ICU Visit type - Emergency Visit Emergency Visit: Yes ED Registration Date: 06/01/19 Care time: The patient presented to the Emergency Department on the above date and was hospitalized for further evaluation of their emergent condition. - New Patient This patient is new to me today: No - Critical Care Critical Care patient: Yes Total Critical Care Time (in minutes): 25
[2019-06-07] MEDS: INSULIN SLIDING SCALE (NOVOLOG) 1 VIAL SQ SCH (21:18)
[2019-06-07] MEDS: CHLORHEXIDINE GLUCONATE 4% CLEANSER FOR DECOLONIZATION TP SCH (21:18)
[2019-06-08] MEDS: PIPERACILLIN/TAZOB 3.375 GM 3.375 GM in DEXTROSE 5%-WATER - 50 ML IVPB SCH ×3 (02:56→17:47)
[2019-06-08] MEDS: HEPARIN NA (PORCINE) 5,000 UNITS/ML 1ML VIAL SQ SCH ×3 (06:07→22:32)
[2019-06-08] MEDS: CARBIDOPA/LEVODOPA 25/100 TABLET (FP) PO SCH ×3 (06:11→17:59)
[2019-06-08] MEDS: INSULIN SLIDING SCALE (NOVOLOG) 1 VIAL SQ SCH ×4 (06:11→22:41)
[2019-06-08 06:26] LABS: HEMATOCRIT 30.3 % (32.4-45.2); MCH 23.4 pg (25.7-33.7); MCHC 33.1 g/dl (32.0-36.0); MEAN CELL VOLUME 70.7 fl (80-96); PLATELET COUNT 344 K/MM3 (134-434); RBC 4.29 M/mm3 (3.60-5.2); RDW 16.7 % (11.6-15.6); WHITE BLOOD COUNT 13.9 K/mm3 (4.0-10.0)
[2019-06-08] MEDS: ALBUTEROL SO4 0.083% IH SOL 2.5 MG/3 ML VIAL.NEB. NEB SCH ×3 (07:40→21:00)
[2019-06-08] MEDS: ACETYLCYSTEINE 20% 200MG/ML 4 ML VIAL *FOR ORAL / INH USE ONLY NEB SCH ×2 (07:40→21:00)
[2019-06-08 08:04] LABS: BLOOD UREA NITROGEN 21.7 mg/dL (7-18); CALCIUM 8.2 mg/dL (8.5-10.1); CREATININE 0.8 mg/dL (0.55-1.3); MAGNESIUM 1.9 mg/dL (1.8-2.4); PHOSPHOROUS 2.4 mg/dL (2.5-4.9); POTASSIUM 4.3 mmol/L (3.5-5.1)
[2019-06-08] MEDS ORDERED: PIPERACILLIN/TAZOBACTAM 3.375 GM VIAL IVPB ONE ×2 (08:24→16:48)
[2019-06-08] MEDS ORDERED: DEXTROSE 5%-WATER - 50 ML IVPB ONE ×2 (08:24→16:48)
--- NOTE | 2019-06-08 09:32 | PN ---
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, Physician Chief Complaint: resp failure History of Present Illness: intubated, not communicative - Current Medication List Current Medications: Active Medications Acetylcysteine (Mucomyst 20 Oral / Inh Use Only*) 600 mg NEB RBID [facility] Last Admin: 06/08/19 07:40 Dose: 600 mg Albuterol Sulfate (Ventolin 0.083% Nebulizer Soln -) 1 amp NEB Q6H PRN PRN Reason: SHORT OF BREATH/WHEEZING Albuterol Sulfate (Ventolin 0.083% Nebulizer Soln -) 1 amp NEB RTID [facility] Last Admin: 06/08/19 07:40 Dose: 1 amp Carbidopa/Levodopa (Sinemet 25/100 -) 1 each PO TID@0700,1200,1900 [facility] Last Admin: 06/08/19 06:11 Dose: 1 each Chlorhexidine Gluconate (Hibiclens For Decolonization -) 1 applic TP HS [facility] Last Admin: 06/07/19 21:18 Dose: 1 applic Heparin Sodium (Porcine) (Heparin -) 5,000 unit SQ TID [facility] Last Admin: 06/08/19 06:07 Dose: 5,000 unit Piperacillin Sod/Tazobactam (Sod 3.375 gm/ Dextrose) 50 mls @ 100 mls/hr IVPB Q8H-IV [facility]; Protocol Last Admin: 06/08/19 02:56 Dose: 100 mls/hr Propofol (Diprivan -) 1,000,000 mcg in 100 mls @ 1.87 mls/hr IVPB TITR [facility]; Protocol Last Titration: 06/07/19 07:36 Dose: 0 mcg/kg/min, 0 mls/hr Insulin Aspart (Novolog Vial Sliding Scale -) 1 vial SQ ACHS [facility]; Protocol Last Admin: 06/08/19 06:11 Dose: Not Given Methylprednisolone Sodium Succinate (Solu-Medrol -) 20 mg IVPUSH BID [facility] Mupirocin (Bactroban Ointment (For Decolonization) -) 1 applic NS BID [facility] Stop: 06/09/19 21:59 Last Admin: 06/07/19 21:17 Dose: 1 applic Non-Formulary Medication (Rotigotine [Neupro]) 1 each TD DAILY [facility] Last Admin: 06/07/19 10:04 Dose: 1 each Pantoprazole Sodium (Protonix Iv) 40 mg IVPUSH DAILY [facility] Last Admin: 06/07/19 09:03 Dose: 40 mg Rivastigmine (Exelon Patch 4.6mg/24 Hours -) 1 each TD DAILY [facility] Last Admin: 06/07/19 09:04 Dose: 1 each - Objective Vital Signs: Vital Signs Temperature 98.4 F 06/08/19 06:00 Pulse Rate 62 06/08/19 08:13 Respiratory Rate 16 06/08/19 09:00 Blood Pressure 121/61 06/08/19 08:00 O2 Sat by Pulse Oximetry (%) 96 06/08/19 09:00 Constitutional: Yes: Well Nourished, No Distress, Calm Cardiovascular: Yes: Regular Rate and Rhythm, S1, S2. No: Gallop, Murmur Respiratory: Yes: Regular, CTA Bilaterally (anteriorly). No: Accessory Muscle Use Extremities: No: Cold Edema: No Neurological: No: Alert, Oriented Psychiatric: No: Agitated Labs: CBC, BMP 06/08/19 05:55 06/08/19 05:55 INR, PTT INR 1.16 (0.83-1.09) H 06/01/19 09:40 Assessment/Plan echo 05/2019 nl LV/RV function, impaired relaxation, elevated filling pressures, RV not well visualized, mild to mod MR, mild mod TR CXR: no congestion/effusions (+ atx) tele: NSR, sinus debora/sinus arrhythmia PNA, sepsis, acute respiratory failure 2/2 suspected aspiration - manage per critical care, ID; vent support - intubated after suspected aspiration event - lasix per critical care - nl LV function on echo - cautious use of IVF HTN: - holding diovan in setting of JOS, bp has been stable DM: - manage per primary dementia, parkinson's: - manage per primary JOS, rhabdo: - renal fxn improved, off IVF
--- NOTE | 2019-06-08 09:41 | EKG ---
Test Reason : Blood Pressure : / mmHG Vent. Rate : 052 BPM Atrial Rate : 052 BPM P-R Int : 140 ms QRS Dur : 138 ms QT Int : 552 ms P-R-T Axes : 056 -27 -19 degrees QTc Int : 513 ms SINUS BRADYCARDIA RIGHT BUNDLE BRANCH BLOCK MODERATE VOLTAGE CRITERIA FOR LVH, MAY BE NORMAL VARIANT CANNOT RULE OUT SEPTAL INFARCT , AGE UNDETERMINED ABNORMAL ECG WHEN COMPARED WITH ECG OF 04-JUN-2019 15:18, T WAVE VARIATION Confirmed by PRABHJOT PEREZ MD [id number]) on 06/08/2019 9:41:09 AM Referred By: FINN RICARDO Confirmed By:PRABHJOT PEREZ MD
[2019-06-08] MEDS: RIVASTIGMINE 4.6 MG/24 HOURS TRANSDERMAL PATCH TD SCH (09:43)
[2019-06-08] MEDS: PANTOPRAZOLE SODIUM 40 MG VIAL IVPUSH SCH (09:44)
[2019-06-08] MEDS: PATIENT'S OWN MEDICATION (NON-FORMULARY) (Rotigotine [Neupro] 1 EACH) TD SCH (09:45)
[2019-06-08] MEDS: MUPIROCIN 2% TOPICAL OINTMENT FOR DECOLONIZATION NS SCH ×2 (09:45→22:32)
[2019-06-08] MEDS: methylPREDNISolone NA SUCC 40 MG/1 ML VIAL IVPUSH SCH ×2 (09:45→22:31)
--- NOTE | 2019-06-08 10:59 | PN ---
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, Physician History of Present Illness: UNRESPONSIVE OFF SEDATION REMAINS INTUBATED AFEBRILE SPUTUM YLO (CONTAMINANT) - Current Medication List Current Medications: Active Medications Acetylcysteine (Mucomyst 20 Oral / Inh Use Only*) 600 mg NEB RBID [facility] Last Admin: 06/08/19 07:40 Dose: 600 mg Albuterol Sulfate (Ventolin 0.083% Nebulizer Soln -) 1 amp NEB Q6H PRN PRN Reason: SHORT OF BREATH/WHEEZING Albuterol Sulfate (Ventolin 0.083% Nebulizer Soln -) 1 amp NEB RTID [facility] Last Admin: 06/08/19 07:40 Dose: 1 amp Carbidopa/Levodopa (Sinemet 25/100 -) 1 each PO TID@0700,1200,1900 [facility] Last Admin: 06/08/19 06:11 Dose: 1 each Chlorhexidine Gluconate (Hibiclens For Decolonization -) 1 applic TP HS [facility] Last Admin: 06/07/19 21:18 Dose: 1 applic Heparin Sodium (Porcine) (Heparin -) 5,000 unit SQ TID [facility] Last Admin: 06/08/19 06:07 Dose: 5,000 unit Piperacillin Sod/Tazobactam (Sod 3.375 gm/ Dextrose) 50 mls @ 100 mls/hr IVPB Q8H-IV [facility]; Protocol Last Admin: 06/08/19 09:44 Dose: 100 mls/hr Propofol (Diprivan -) 1,000,000 mcg in 100 mls @ 1.87 mls/hr IVPB TITR [facility]; Protocol Last Titration: 06/07/19 07:36 Dose: 0 mcg/kg/min, 0 mls/hr Insulin Aspart (Novolog Vial Sliding Scale -) 1 vial SQ ACHS [facility]; Protocol Last Admin: 06/08/19 10:43 Dose: 3 units Methylprednisolone Sodium Succinate (Solu-Medrol -) 20 mg IVPUSH BID [facility] Last Admin: 06/08/19 09:45 Dose: 20 mg Mupirocin (Bactroban Ointment (For Decolonization) -) 1 applic NS BID [facility] Stop: 06/09/19 21:59 Last Admin: 06/08/19 09:45 Dose: 1 applic Non-Formulary Medication (Rotigotine [Neupro]) 1 each TD DAILY [facility] Last Admin: 06/08/19 09:45 Dose: 1 each Pantoprazole Sodium (Protonix Iv) 40 mg IVPUSH DAILY [facility] Last Admin: 06/08/19 09:44 Dose: 40 mg Rivastigmine (Exelon Patch 4.6mg/24 Hours -) 1 each TD DAILY [facility] Last Admin: 06/08/19 09:43 Dose: 1 each - Objective Vital Signs: Vital Signs Temperature 98.4 F 06/08/19 06:00 Pulse Rate 62 06/08/19 08:13 Respiratory Rate 16 06/08/19 09:00 Blood Pressure 121/61 06/08/19 08:00 O2 Sat by Pulse Oximetry (%) 96 06/08/19 10:00 Constitutional: Yes: No Distress Eyes: Yes: Conjunctiva Clear Cardiovascular: Yes: Regular Rate and Rhythm, S1, S2 Respiratory: Yes: Mechanically Ventilated Gastrointestinal: Yes: Normal Bowel Sounds, Soft. No: Tenderness Edema: Yes Labs: CBC, BMP 06/08/19 05:55 06/08/19 05:55 INR, PTT INR 1.16 (0.83-1.09) H 06/01/19 09:40 Assessment/Plan RESP FAILURE PNEUMONIA SEPSIS TOXIC METABOLIC ENCEPHALOPATHY LEUKOCYTOSIS RENAL INSUFFICIENCY PARKINSONISM/OBS CONTINUE EMPIRIC ZOSYN VENTILATORY SUPPORT
--- NOTE | 2019-06-08 11:33 | PN ---
Physical Exam: SUBJECTIVE: Patient seen and examined in the morning. No acute events overnight , patient is bradycardic on cardiac monitoring. Patient is off sedation >24 hours, however not able to responsive to questioning due to ET tube. OBJECTIVE: Vital Signs Period Temp Pulse Resp BP Sys/Campbell Pulse Ox Last 24 Hr 97.9 F-98.4 F 44-104 15-18 101-145/60-83 96-100 GENERAL: The patient is awake, alert, and fully oriented, in no acute distress. HEAD: Normal with no signs of trauma. EYES: PERRL, extraocular movements intact, sclera anicteric, conjunctiva clear. No ptosis. ENT: Ears normal, nares patent, endotracheal tube in place. NECK: Trachea midline, full range of motion, supple. LUNGS: B/l crackles. HEART: S1, S2, 3/6 murmurs, rubs, gallops ABDOMEN: Soft, nontender, nondistended, hypoactive bowel sounds EXTREMITIES: 2+ pulses, warm, well-perfused, no edema. NEUROLOGICAL: Cranial nerves II through XII grossly intact. Normal speech, gait not observed. PSYCH: Normal mood, normal affect. SKIN: SKIN: Sacral ulcer present, [id number], no discharge prese Laboratory Results - last 24 hr 06/07/19 06/07/19 06/08/19 16:43 21:04 05:55 WBC 13.9 H RBC 4.29 Hgb 10.0 L Hct 30.3 L MCV 70.7 L MCH 23.4 L MCHC 33.1 RDW 16.7 H Plt Count 344 MPV 9.0 Sodium Potassium Chloride Carbon Dioxide Anion Gap BUN Creatinine Est GFR (CKD-EPI)AfAm Est GFR (CKD-EPI)NonAf POC Glucometer 321 429 Random Glucose Calcium Phosphorus Magnesium 06/08/19 06/08/19 06/08/19 05:55 06:10 10:43 WBC RBC Hgb Hct MCV MCH MCHC RDW Plt Count MPV Sodium 135 L Potassium 4.3 Chloride 100 Carbon Dioxide 32 Anion Gap 3 L BUN 21.7 H Creatinine 0.8 Est GFR (CKD-EPI)AfAm 80.14 Est GFR (CKD-EPI)NonAf 69.14 POC Glucometer 138 241 Random Glucose 150 H Calcium 8.2 L Phosphorus 2.4 L Magnesium 1.9 Active Medications Generic Name Dose Route Start Last Admin Trade Name Freq PRN Reason Stop Dose Admin Acetylcysteine 600 mg 06/05/19 08:00 06/08/19 07:40 Mucomyst 20 Oral / Inh Use Only* NEB 600 mg RBID [facility] Administration Albuterol Sulfate 1 amp 06/04/19 21:42 Ventolin 0.083% Nebulizer Soln - NEB Q6H PRN SHORT OF BREATH/WHEEZING Albuterol Sulfate 1 amp 06/05/19 08:00 06/08/19 07:40 Ventolin 0.083% Nebulizer Soln - NEB 1 amp RTID [facility] Administration Carbidopa/Levodopa 1 each 06/05/19 07:00 06/08/19 06:11 Sinemet 25/100 - PO 1 each TID@0700,1200,1900 [facility] Administration Chlorhexidine Gluconate 1 applic 06/04/19 22:00 06/07/19 21:18 Hibiclens For Decolonization - TP 1 applic HS [facility] Administration Heparin Sodium (Porcine) 5,000 unit 06/04/19 22:00 06/08/19 06:07 Heparin - SQ 5,000 unit TID [facility] Administration Piperacillin Sod/Tazobactam 50 mls @ 100 mls/hr 06/05/19 02:00 06/08/19 09:44 Sod 3.375 gm/ Dextrose IVPB 100 mls/hr Q8H-IV [facility] Administration Protocol Propofol 1,000,000 mcg in 100 mls @ 1.87 mls/hr 06/04/19 22:15 06/07/19 07:36 Diprivan - IVPB 0 mcg/kg/min TITR [facility] 0 mls/hr Titration Protocol 5 MCG/KG/MIN Insulin Aspart 1 vial 06/07/19 22:00 06/08/19 10:43 Novolog Vial Sliding Scale - SQ 3 units ACHS [facility] Administration Protocol Methylprednisolone Sodium Succinate 20 mg 06/08/19 10:00 06/08/19 09:45 Solu-Medrol - IVPUSH 20 mg BID [facility] Administration Mupirocin 1 applic 06/04/19 22:00 06/08/19 09:45 Bactroban Ointment (For Decolonization) - NS 06/09/19 21:59 1 applic BID [facility] Administration Non-Formulary Medication 1 each 06/05/19 10:00 06/08/19 09:45 Rotigotine [Neupro] TD 1 each DAILY [facility] Administration Pantoprazole Sodium 40 mg 06/05/19 10:00 06/08/19 09:44 Protonix Iv IVPUSH 40 mg DAILY [facility] Administration Rivastigmine 1 each 06/05/19 10:00 06/08/19 09:43 Exelon Patch 4.6mg/24 Hours - TD 1 each DAILY [facility] Administration ASSESSMENT/PLAN: 79 F PMH of Parkinson's dx, dementia, AMS for the past week, admitted to [facility] for PNA, was transferred to ICU for labored breathing, patient subsequently had respiratory failure and had required intubation. Neuro -Hx of Parkinson's and dementia -Patient has not been at baseline mentation, AMS for the past week -Pt was restarted on home rivostigimine and rotigotone yesterday. -CT head negative -Possible toxic metabolic encephalopathy in setting of Co2 narcosis, -Sedation vacations as tolerated Pulm -Acute hypercapnic hypoxic respiratory failure 2/2 multilobar PNA, now intubated -Chest X-Ray shows slight improvement from yesterday morning, infiltrates still present -Flu negative -Possible aspiration event -Duonebs -Methylprednisone 20 BID -Zoysn -Azithromax -Wean trials as tolerated- patient was only able to tolerate CPAP for a few minutes. Cardio -Hx of HTN -Patient has episodes of bradycardia. Attributed to parkinsonian medications. -Echo done on 05/2019 shows normla LV/RV, impaired relaxation, elevated filling pressures, RV not well visualized, mild to moderate MR, mild to moderate TR. -BP stable, holding diovan -Cardiology consulted, appreciate recs GI -Currently stable, tube feeds at low rate ID -Leukocytosis, lactic acidosis on presentation -Lactic acid resolved -Leukocytosis present -Continue Zoysn -Possible aspiration PNA or pneumonitis Renal -JOS resolved -IV fluids stopped -Lasix given yesterday -Nephrology consulted, appreciate recs Heme -Anemia of chronic disease -Will continue to follow DVT: Heparin SQ GI PPX: Protonix F: No fluids E: Monitor CMP N: Tube feeds Dispo: Currently under ICU monitoring. LInes and foleys: Intubated 06/04. NGT 06/02 Visit type - Emergency Visit Emergency Visit: Yes ED Registration Date: 06/01/19 Care time: The patient presented to the Emergency Department on the above date and was hospitalized for further evaluation of their emergent condition. - New Patient This patient is new to me today: No - Critical Care Critical Care patient: Yes Total Critical Care Time (in minutes): 36 Critical Care Statement: The care of this patient involved high complexity decision making to prevent further life threatening deterioration of the patient 's condition and/or to evaluate & treat vital organ system(s) failure or risk of failure. ATTENDING PHYSICIAN STATEMENT I saw and evaluated the patient. I reviewed the resident's note and discussed the case with the resident. I agree with the resident's findings and plan as documented. SUBJECTIVE: OBJECTIVE: ASSESSMENT AND PLAN:
--- NOTE | 2019-06-08 11:44 | PN ---
Teaching Attending Note Name of Resident: Yumi Snow ATTENDING PHYSICIAN STATEMENT I saw and evaluated the patient. I reviewed the resident's note and discussed the case with the resident. I agree with the resident's findings and plan as documented. SUBJECTIVE: Patient seen and examined in the ICU. Remains vented, AC Mode, 40% FiO2. No pressors. Opening eyes to sternal rub. Intermittently gripping hands. Intake & Output 06/05/19 06/06/19 06/07/19 06/08/19 23:59 23:59 23:59 23:59 Intake Total 680 2077.2 1958.4 641 Output Total 700 1100 700 700 Balance -20 977.2 1258.4 -59 Weight 138 lb 10.732 oz 138 lb 14.4 oz 135 lb 4.8 oz 137 lb 11.2 oz Last Vital Signs Temp Pulse Resp BP Pulse Ox 98.4 F 62 16 121/61 96 06/08/19 06:00 06/08/19 08:13 06/08/19 09:00 06/08/19 08:00 06/08/19 10:00 Active Medications Acetylcysteine (Mucomyst 20 Oral / Inh Use Only*) 600 mg NEB RBID [facility] Last Admin: 06/08/19 07:40 Dose: 600 mg Albuterol Sulfate (Ventolin 0.083% Nebulizer Soln -) 1 amp NEB Q6H PRN PRN Reason: SHORT OF BREATH/WHEEZING Albuterol Sulfate (Ventolin 0.083% Nebulizer Soln -) 1 amp NEB RTID [facility] Last Admin: 06/08/19 07:40 Dose: 1 amp Carbidopa/Levodopa (Sinemet 25/100 -) 1 each PO TID@0700,1200,1900 [facility] Last Admin: 06/08/19 06:11 Dose: 1 each Chlorhexidine Gluconate (Hibiclens For Decolonization -) 1 applic TP HS [facility] Last Admin: 06/07/19 21:18 Dose: 1 applic Heparin Sodium (Porcine) (Heparin -) 5,000 unit SQ TID [facility] Last Admin: 06/08/19 06:07 Dose: 5,000 unit Piperacillin Sod/Tazobactam (Sod 3.375 gm/ Dextrose) 50 mls @ 100 mls/hr IVPB Q8H-IV [facility]; Protocol Last Admin: 06/08/19 09:44 Dose: 100 mls/hr Propofol (Diprivan -) 1,000,000 mcg in 100 mls @ 1.87 mls/hr IVPB TITR [facility]; Protocol Last Titration: 06/07/19 07:36 Dose: 0 mcg/kg/min, 0 mls/hr Insulin Aspart (Novolog Vial Sliding Scale -) 1 vial SQ ACHS [facility]; Protocol Last Admin: 06/08/19 10:43 Dose: 3 units Methylprednisolone Sodium Succinate (Solu-Medrol -) 20 mg IVPUSH BID [facility] Last Admin: 06/08/19 09:45 Dose: 20 mg Mupirocin (Bactroban Ointment (For Decolonization) -) 1 applic NS BID [facility] Stop: 06/09/19 21:59 Last Admin: 06/08/19 09:45 Dose: 1 applic Non-Formulary Medication (Rotigotine [Neupro]) 1 each TD DAILY [facility] Last Admin: 06/08/19 09:45 Dose: 1 each Pantoprazole Sodium (Protonix Iv) 40 mg IVPUSH DAILY [facility] Last Admin: 06/08/19 09:44 Dose: 40 mg Rivastigmine (Exelon Patch 4.6mg/24 Hours -) 1 each TD DAILY [facility] Last Admin: 06/08/19 09:43 Dose: 1 each GENERAL: Intubated, opens eyes to sternal rub EYES: non icteric LUNGS: Vented, scattered bilateral rhonchi HEART: tachycardic, regular rhythm, S1, S2 ABDOMEN: Soft, nontender, nondistended, normoactive bowel sounds EXTREMITIES: 2+ pulses, warm, b/l dependent pedal edema. NEUROLOGICAL: lethargic Laboratory Results - last 24 hr 06/07/19 06/07/19 06/08/19 16:43 21:04 05:55 WBC 13.9 H RBC 4.29 Hgb 10.0 L Hct 30.3 L MCV 70.7 L MCH 23.4 L MCHC 33.1 RDW 16.7 H Plt Count 344 MPV 9.0 Sodium Potassium Chloride Carbon Dioxide Anion Gap BUN Creatinine Est GFR (CKD-EPI)AfAm Est GFR (CKD-EPI)NonAf POC Glucometer 321 429 Random Glucose Calcium Phosphorus Magnesium 06/08/19 06/08/19 06/08/19 05:55 06:10 10:43 WBC RBC Hgb Hct MCV MCH MCHC RDW Plt Count MPV Sodium 135 L Potassium 4.3 Chloride 100 Carbon Dioxide 32 Anion Gap 3 L BUN 21.7 H Creatinine 0.8 Est GFR (CKD-EPI)AfAm 80.14 Est GFR (CKD-EPI)NonAf 69.14 POC Glucometer 138 241 Random Glucose 150 H Calcium 8.2 L Phosphorus 2.4 L Magnesium 1.9 ASSESSMENT/PLAN: Acute Hypercapneic Respiratory Failure due to suspected Aspiration Parkinson Disease Dementia AMS PNA Leukocytosis Lactic acidosis -Wean trials as tolerated -Pulmonary Toilet -ABX per ID -Enteral feeds -Medrol -Sinemet and Neupro and Rivastigmine patches -VTE prophylaxis -GI prophylaxis -Requires continued ICU monitoring Dr Collins Critical care time spent in reviewing chart, evaluating patient and formulating plan - 36 minutes.
--- NOTE | 2019-06-08 13:41 | PN ---
Teaching Attending Note Name of Resident: Simeon Balbuena ATTENDING PHYSICIAN STATEMENT I saw and evaluated the patient. I reviewed the resident's note and discussed the case with the resident. I agree with the resident's findings and plan as documented. SUBJECTIVE: No events over night OBJECTIVE: Intubated, not sedated . round equal pupils. resists eye opening MMM CV: RRR Lungs: good air entry b/l anteriorly. clear Abd: soft, NT, Nd , hypoactive BS . Ext: trace edema on feet ASSESSMENT AND PLAN: 79 y/o lady with h/o Parkinson Disease and dementia who presented with AMS. 1- Acute hypercapnic resp failure . 2- PNA , likely aspiration PNA 3- JOS : improved. 4- Rhabdo 5- Thrombocytopenia: resolved 6- h/o HTN 7- h/o DM 8- AMS: acute metabolic encephalopathy 9- h/o dementia 10 - Microcytic anemia 11- contaminant blood cx Plan: - CPAP trial today. extubate when possible. - Cont steroids at current dose 20 BID - Holding TF while on CPAP - cont to hold IVF - Cont zosyn . - final results of repeat blood cx neg. sputum with yeast - cont Sinemet - heparin SQ - cont SSI ICU
[2019-06-08] MEDS: POLYETHYLENE GLYCOL 3350 119 GM BTL PO SCH ×2 (13:50→22:31)
[2019-06-08] MEDS ORDERED: MAGNESIUM SULF 50% (8.12 MEQ/2 ML-1 GM VIAL) IVPB ONE (14:05)
[2019-06-08] MEDS ORDERED: SODIUM PHOSPHATE - 15 MM in SODIUM CHLORIDE 250 ML IVPB ONE (15:00)
--- NOTE | 2019-06-08 15:39 | PN ---
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, Physician History of Present Illness: Pt seen and examined at bedside. She is tolerating feeds. - Current Medication List Current Medications: Active Medications Acetylcysteine (Mucomyst 20 Oral / Inh Use Only*) 600 mg NEB RBID [facility] Last Admin: 06/08/19 07:40 Dose: 600 mg Albuterol Sulfate (Ventolin 0.083% Nebulizer Soln -) 1 amp NEB Q6H PRN PRN Reason: SHORT OF BREATH/WHEEZING Albuterol Sulfate (Ventolin 0.083% Nebulizer Soln -) 1 amp NEB RTID [facility] Last Admin: 06/08/19 14:45 Dose: 1 amp Carbidopa/Levodopa (Sinemet 25/100 -) 1 each PO TID@0700,1200,1900 [facility] Last Admin: 06/08/19 11:41 Dose: 1 each Chlorhexidine Gluconate (Hibiclens For Decolonization -) 1 applic TP HS [facility] Last Admin: 06/07/19 21:18 Dose: 1 applic Heparin Sodium (Porcine) (Heparin -) 5,000 unit SQ TID [facility] Last Admin: 06/08/19 12:59 Dose: 5,000 unit Piperacillin Sod/Tazobactam (Sod 3.375 gm/ Dextrose) 50 mls @ 100 mls/hr IVPB Q8H-IV [facility]; Protocol Last Admin: 06/08/19 09:44 Dose: 100 mls/hr Propofol (Diprivan -) 1,000,000 mcg in 100 mls @ 1.87 mls/hr IVPB TITR [facility]; Protocol Last Titration: 06/07/19 07:36 Dose: 0 mcg/kg/min, 0 mls/hr Sodium Phosphate 15 mm/ Sodium (Chloride) 255 mls @ 62.5 mls/hr IVPB ONCE ONE Stop: 06/08/19 19:04 Insulin Aspart (Novolog Vial Sliding Scale -) 1 vial SQ ACHS [facility]; Protocol Last Admin: 06/08/19 10:43 Dose: 3 units Methylprednisolone Sodium Succinate (Solu-Medrol -) 20 mg IVPUSH BID [facility] Last Admin: 06/08/19 09:45 Dose: 20 mg Mupirocin (Bactroban Ointment (For Decolonization) -) 1 applic NS BID [facility] Stop: 06/09/19 21:59 Last Admin: 06/08/19 09:45 Dose: 1 applic Non-Formulary Medication (Rotigotine [Neupro]) 1 each TD DAILY [facility] Last Admin: 06/08/19 09:45 Dose: 1 each Pantoprazole Sodium (Protonix Iv) 40 mg IVPUSH DAILY [facility] Last Admin: 06/08/19 09:44 Dose: 40 mg Polyethylene Glycol (Miralax (For Daily Use) -) 17 gm PO BID [facility] Last Admin: 06/08/19 13:50 Dose: 17 grams Rivastigmine (Exelon Patch 4.6mg/24 Hours -) 1 each TD DAILY [facility] Last Admin: 06/08/19 09:43 Dose: 1 each Senna (Senna Oral Solution -) 8.8 mg PO HS [facility] - Objective Vital Signs: Vital Signs Temperature 98.2 F 06/08/19 12:00 Pulse Rate 72 06/08/19 14:00 Respiratory Rate 16 06/08/19 14:00 Blood Pressure 99/65 06/08/19 14:00 O2 Sat by Pulse Oximetry (%) 100 06/08/19 14:00 Constitutional: Yes: Calm Eyes: Yes: Conjunctiva Clear HENT: Yes: Atraumatic Neck: Yes: Supple Cardiovascular: Yes: S1, S2 Respiratory: Yes: Mechanically Ventilated Gastrointestinal: Yes: Soft, Abdomen, Obese Genitourinary: Yes: Ríos Present Musculoskeletal: Yes: Muscle Weakness Edema: No Neurological: Yes: Lethargy Labs: CBC, BMP 06/08/19 05:55 06/08/19 05:55 INR, PTT INR 1.16 (0.83-1.09) H 06/01/19 09:40 Problem List - Problems (1) Rhabdomyolysis Code(s): M62.82 - RHABDOMYOLYSIS (2) JOS (acute kidney injury) Code(s): N17.9 - ACUTE KIDNEY FAILURE, UNSPECIFIED (3) Pneumonia Code(s): J18.9 - PNEUMONIA, UNSPECIFIED ORGANISM (4) Sepsis Code(s): A41.9 - SEPSIS, UNSPECIFIED ORGANISM Assessment/Plan Current Medications Generic Name Dose Route Start Last Admin Trade Name Freq PRN Reason Stop Dose Admin Acetylcysteine 600 mg 06/05/19 08:00 06/08/19 07:40 Mucomyst 20 Oral / Inh Use Only* NEB 600 mg RBID [facility] Administration Albuterol Sulfate 1 amp 06/04/19 21:42 Ventolin 0.083% Nebulizer Soln - NEB Q6H PRN SHORT OF BREATH/WHEEZING Albuterol Sulfate 1 amp 06/05/19 08:00 06/08/19 14:45 Ventolin 0.083% Nebulizer Soln - NEB 1 amp RTID [facility] Administration Carbidopa/Levodopa 1 each 06/05/19 07:00 06/08/19 11:41 Sinemet 25/100 - PO 1 each TID@0700,1200,1900 [facility] Administration Chlorhexidine Gluconate 1 applic 06/04/19 22:00 06/07/19 21:18 Hibiclens For Decolonization - TP 1 applic HS [facility] Administration Heparin Sodium (Porcine) 5,000 unit 06/04/19 22:00 06/08/19 12:59 Heparin - SQ 5,000 unit TID [facility] Administration Piperacillin Sod/Tazobactam 50 mls @ 100 mls/hr 06/05/19 02:00 06/08/19 09:44 Sod 3.375 gm/ Dextrose IVPB 100 mls/hr Q8H-IV [facility] Administration Protocol Propofol 1,000,000 mcg in 100 mls @ 1.87 mls/hr 06/04/19 22:15 06/07/19 07:36 Diprivan - IVPB 0 mcg/kg/min TITR [facility] 0 mls/hr Titration Protocol 5 MCG/KG/MIN Sodium Phosphate 15 mm/ Sodium 255 mls @ 62.5 mls/hr 06/08/19 15:00 Chloride IVPB 06/08/19 19:04 ONCE ONE Insulin Aspart 1 vial 06/07/19 22:00 06/08/19 10:43 Novolog Vial Sliding Scale - SQ 3 units ACHS [facility] Administration Protocol Methylprednisolone Sodium Succinate 20 mg 06/08/19 10:00 06/08/19 09:45 Solu-Medrol - IVPUSH 20 mg BID [facility] Administration Mupirocin 1 applic 06/04/19 22:00 06/08/19 09:45 Bactroban Ointment (For Decolonization) - NS 06/09/19 21:59 1 applic BID [facility] Administration Non-Formulary Medication 1 each 06/05/19 10:00 06/08/19 09:45 Rotigotine [Neupro] TD 1 each DAILY [facility] Administration Pantoprazole Sodium 40 mg 06/05/19 10:00 06/08/19 09:44 Protonix Iv IVPUSH 40 mg DAILY [facility] Administration Polyethylene Glycol 17 gm 06/08/19 13:45 06/08/19 13:50 Miralax (For Daily Use) - PO 17 grams BID [facility] Administration Rivastigmine 1 each 06/05/19 10:00 06/08/19 09:43 Exelon Patch 4.6mg/24 Hours - TD 1 each DAILY [facility] Administration Senna 8.8 mg 06/08/19 22:00 Senna Oral Solution - PO HS [facility] Impression 1. JOS 2. sepsis 3. PNA 4. dementia 5. parkinsons 6. lactic acidosis 7. rhabdo 8. DM 9. HTN 10. resp failure Plan - renal function stable - lytes stable - vent support - lasix prn - abx per primary team
--- NOTE | 2019-06-08 18:43 | PN ---
Physical Exam: SUBJECTIVE: Patient seen and examined NAEON Off proprofol gtt >24hs. Still intubated. OBJECTIVE: Vital Signs Period Temp Pulse Resp BP Sys/Campbell Pulse Ox Last 24 Hr 98.1 F-98.4 F 44-72 15-20 99-145/59-84 96-100 GENERAL: Lethargic, off sedation > 24hs. Not intubated HEAD: NC/AT EYES: extraocular movements tracking movement briefly, sclera anicteric, conjunctiva clear. No ptosis. ENT: Ears normal, nares patent, NGT feed NECK: Trachea midline, full range of motion, supple. LUNGS: Breath sounds equal, mildly coarse BS bilaterally. Ventilated HEART: Regular rate and rhythm, S1, S2 without murmur, rub or gallop. ABDOMEN: Soft, nontender, nondistended, normoactive bowel sounds, no guarding, no rebound. EXTREMITIES: 2+ pulses, warm, well-perfused, no edema. BLE with nonpitting edema. DP2+ b/l NEUROLOGICAL: not opening eyes to pain, withdrawing BUE and BLE to painful stimuli, intbuated SKIN: Warm, dry, normal turgor, no rashes or lesions noted Laboratory Results - last 24 hr 06/07/19 06/08/19 06/08/19 21:04 05:55 05:55 WBC 13.9 H RBC 4.29 Hgb 10.0 L Hct 30.3 L MCV 70.7 L MCH 23.4 L MCHC 33.1 RDW 16.7 H Plt Count 344 MPV 9.0 Sodium 135 L Potassium 4.3 Chloride 100 Carbon Dioxide 32 Anion Gap 3 L BUN 21.7 H Creatinine 0.8 Est GFR (CKD-EPI)AfAm 80.14 Est GFR (CKD-EPI)NonAf 69.14 POC Glucometer 429 Random Glucose 150 H Calcium 8.2 L Phosphorus 2.4 L Magnesium 1.9 06/08/19 06/08/19 06/08/19 06:10 10:43 15:51 WBC RBC Hgb Hct MCV MCH MCHC RDW Plt Count MPV Sodium Potassium Chloride Carbon Dioxide Anion Gap BUN Creatinine Est GFR (CKD-EPI)AfAm Est GFR (CKD-EPI)NonAf POC Glucometer 138 241 214 Random Glucose Calcium Phosphorus Magnesium Active Medications Generic Name Dose Route Start Last Admin Trade Name Freq PRN Reason Stop Dose Admin Acetylcysteine 600 mg 06/05/19 08:00 06/08/19 07:40 Mucomyst 20 Oral / Inh Use Only* NEB 600 mg RBID [facility] Administration Albuterol Sulfate 1 amp 06/04/19 21:42 Ventolin 0.083% Nebulizer Soln - NEB Q6H PRN SHORT OF BREATH/WHEEZING Albuterol Sulfate 1 amp 06/05/19 08:00 06/08/19 14:45 Ventolin 0.083% Nebulizer Soln - NEB 1 amp RTID [facility] Administration Carbidopa/Levodopa 1 each 06/05/19 07:00 06/08/19 17:59 Sinemet 25/100 - PO 1 each TID@0700,1200,1900 [facility] Administration Chlorhexidine Gluconate 1 applic 06/04/19 22:00 06/07/19 21:18 Hibiclens For Decolonization - TP 1 applic HS [facility] Administration Heparin Sodium (Porcine) 5,000 unit 06/04/19 22:00 06/08/19 12:59 Heparin - SQ 5,000 unit TID [facility] Administration Piperacillin Sod/Tazobactam 50 mls @ 100 mls/hr 06/05/19 02:00 06/08/19 17:47 Sod 3.375 gm/ Dextrose IVPB 100 mls/hr Q8H-IV [facility] Administration Protocol Propofol 1,000,000 mcg in 100 mls @ 1.87 mls/hr 06/04/19 22:15 06/07/19 07:36 Diprivan - IVPB 0 mcg/kg/min TITR [facility] 0 mls/hr Titration Protocol 5 MCG/KG/MIN Sodium Phosphate 15 mm/ Sodium 255 mls @ 62.5 mls/hr 06/08/19 15:00 06/08/19 15:45 Chloride IVPB 06/08/19 19:04 62.5 mls/hr ONCE ONE Administration Insulin Aspart 1 vial 06/07/19 22:00 06/08/19 15:53 Novolog Vial Sliding Scale - SQ 3 units ACHS [facility] Administration Protocol Methylprednisolone Sodium Succinate 20 mg 06/08/19 10:00 06/08/19 09:45 Solu-Medrol - IVPUSH 20 mg BID [facility] Administration Mupirocin 1 applic 06/04/19 22:00 06/08/19 09:45 Bactroban Ointment (For Decolonization) - NS 06/09/19 21:59 1 applic BID [facility] Administration Non-Formulary Medication 1 each 06/05/19 10:00 06/08/19 09:45 Rotigotine [Neupro] TD 1 each DAILY [facility] Administration Pantoprazole Sodium 40 mg 06/05/19 10:00 06/08/19 09:44 Protonix Iv IVPUSH 40 mg DAILY [facility] Administration Polyethylene Glycol 17 gm 06/08/19 13:45 06/08/19 13:50 Miralax (For Daily Use) - PO 17 grams BID [facility] Administration Rivastigmine 1 each 06/05/19 10:00 06/08/19 09:43 Exelon Patch 4.6mg/24 Hours - TD 1 each DAILY [facility] Administration Senna 8.8 mg 06/08/19 22:00 Senna Oral Solution - PO HS [facility] ASSESSMENT/PLAN: 79y/o female with Parkinson's and dementia who presents with AMS and cough x 4 days. Pt was hypoxic to the 80s at ED presentation. Intubated for increased work of breathing. Possibly had aspiration PNA #acute hypoxic respiratory failure 2/2 multilobar PNA and sepsis -CXR improved post-intubation > CXR(06/08/19): Left base w/ minimal atelectasis, sharp rib angles > flu: negative > Echo: normal EF, impaired relaxation, elevated filling pressures, TR, MR -duonebs TID -solumedrol 20mg IVP BID -zosyn 3.375g Q8H -ID following #AMS toxic metabolic encephalopathy vs less likely CVA -CT head negative for acute processes -urine cx negative -blood cx(06/01/19)- Staph coag negative in 1 bottle -blood cx(06/03/19): NGTD -dietary following -speech following #sacral skin tear -surgery consulted- management per note #leukocytosis -from infection vs steroid use -mild improvement continues -continue monitor #JOS, resolved -1/2 NS with K -nephro following #anemia of chronic disease -microcytosis but low TIBC, unsaturated IBC, and high ferritin #Parkinson's and dementia -continue Sinimet, modified dose for NG tube, @0700, 1200, 1900 -rivostigmine patch -rotigotine patch #mild hypophosphatemia, resolved #lactic acidosis, resolved #transaminitis, improved DVT ppx heparin GI ppx protonix FEN 1/2 NS + K at 83mL/hr monitor labs NG feeds Visit type - Emergency Visit Emergency Visit: No - New Patient This patient is new to me today: No - Critical Care Critical Care patient: Yes Total Critical Care Time (in minutes): 35 Critical Care Statement: The care of this patient involved high complexity decision making to prevent further life threatening deterioration of the patient 's condition and/or to evaluate & treat vital organ system(s) failure or risk of failure. ATTENDING PHYSICIAN STATEMENT I saw and evaluated the patient. I reviewed the resident's note and discussed the case with the resident. I agree with the resident's findings and plan as documented. SUBJECTIVE: OBJECTIVE: ASSESSMENT AND PLAN:
[2019-06-08] MEDS ORDERED: SENNOSIDES 8.8 MG/5 ML BULK BOTTLE PO SCH (22:00)
[2019-06-08] MEDS: CHLORHEXIDINE GLUCONATE 4% CLEANSER FOR DECOLONIZATION TP SCH (22:32)
[2019-06-09] MEDS ORDERED: DEXTROSE 5%-WATER - 50 ML IVPB ONE ×3 (00:23→17:07)
[2019-06-09] MEDS ORDERED: PIPERACILLIN/TAZOBACTAM 3.375 GM VIAL IVPB ONE ×3 (00:23→17:07)
[2019-06-09] MEDS: PIPERACILLIN/TAZOB 3.375 GM 3.375 GM in DEXTROSE 5%-WATER - 50 ML IVPB SCH ×3 (01:29→17:11)
[2019-06-09 06:37] LABS: BASO % 0.3 % (0-2.0); HEMATOCRIT 28.1 % (32.4-45.2); HEMOGLOBIN 9.2 GM/dL (10.7-15.3); LYMPH % 15.4 % (8-40); MCH 23.1 pg (25.7-33.7); MCHC 32.5 g/dl (32.0-36.0); MEAN CELL VOLUME 70.9 fl (80-96); MONO % 4.9 % (3.8-10.2); NEUT % 79.4 % (42.8-82.8); PLATELET COUNT 331 K/MM3 (134-434); RBC 3.97 M/mm3 (3.60-5.2); RDW 16.7 % (11.6-15.6); WHITE BLOOD COUNT 12.7 K/mm3 (4.0-10.0)
[2019-06-09] MEDS: HEPARIN NA (PORCINE) 5,000 UNITS/ML 1ML VIAL SQ SCH ×3 (06:38→21:46)
[2019-06-09] MEDS: CARBIDOPA/LEVODOPA 25/100 TABLET (FP) PO SCH ×3 (06:38→18:21)
[2019-06-09] MEDS: INSULIN SLIDING SCALE (NOVOLOG) 1 VIAL SQ SCH ×4 (06:45→22:05)
[2019-06-09 07:02] LABS: ALBUMIN 2.3 g/dl (3.4-5.0); BILIRUBIN,TOTAL 0.3 mg/dL (0.2-1); CALCIUM 7.8 mg/dL (8.5-10.1); CREATININE 0.8 mg/dL (0.55-1.3); MAGNESIUM 2.1 mg/dL (1.8-2.4); PHOSPHOROUS 3.4 mg/dL (2.5-4.9); POTASSIUM 4.3 mmol/L (3.5-5.1); TOT PROT 6.2 g/dl (6.4-8.2)
[2019-06-09] MEDS: ACETYLCYSTEINE 20% 200MG/ML 4 ML VIAL *FOR ORAL / INH USE ONLY NEB SCH ×2 (09:01→21:05)
[2019-06-09] MEDS: ALBUTEROL SO4 0.083% IH SOL 2.5 MG/3 ML VIAL.NEB. NEB SCH ×3 (09:01→21:05)
[2019-06-09] MEDS: methylPREDNISolone NA SUCC 40 MG/1 ML VIAL IVPUSH SCH ×2 (09:29→21:47)
[2019-06-09] MEDS: RIVASTIGMINE 4.6 MG/24 HOURS TRANSDERMAL PATCH TD SCH (09:30)
[2019-06-09] MEDS: PANTOPRAZOLE SODIUM 40 MG VIAL IVPUSH SCH (09:30)
[2019-06-09] MEDS: POLYETHYLENE GLYCOL 3350 119 GM BTL PO SCH (09:41)
[2019-06-09] MEDS: MUPIROCIN 2% TOPICAL OINTMENT FOR DECOLONIZATION NS SCH (09:42)
[2019-06-09] MEDS: PATIENT'S OWN MEDICATION (NON-FORMULARY) (Rotigotine [Neupro] 1 EACH) TD SCH (09:43)
--- NOTE | 2019-06-09 11:20 | PN ---
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, Physician History of Present Illness: OFF SEDATION POORLY RESPONSIVE REMAINS INTUBATED. WEANING IN PROGRESS AFEBRILE SPUTUM YLO (CONTAMINANT) - Current Medication List Current Medications: Active Medications Acetylcysteine (Mucomyst 20 Oral / Inh Use Only*) 600 mg NEB RBID [facility] Last Admin: 06/09/19 09:01 Dose: 600 mg Albuterol Sulfate (Ventolin 0.083% Nebulizer Soln -) 1 amp NEB Q6H PRN PRN Reason: SHORT OF BREATH/WHEEZING Albuterol Sulfate (Ventolin 0.083% Nebulizer Soln -) 1 amp NEB RTID [facility] Last Admin: 06/09/19 09:01 Dose: 1 amp Carbidopa/Levodopa (Sinemet 25/100 -) 1 each PO TID@0700,1200,1900 [facility] Last Admin: 06/09/19 06:38 Dose: 1 each Chlorhexidine Gluconate (Hibiclens For Decolonization -) 1 applic TP HS [facility] Last Admin: 06/08/19 22:32 Dose: 1 applic Heparin Sodium (Porcine) (Heparin -) 5,000 unit SQ TID [facility] Last Admin: 06/09/19 06:38 Dose: 5,000 unit Piperacillin Sod/Tazobactam (Sod 3.375 gm/ Dextrose) 50 mls @ 100 mls/hr IVPB Q8H-IV [facility]; Protocol Last Admin: 06/09/19 09:27 Dose: 100 mls/hr Propofol (Diprivan -) 1,000,000 mcg in 100 mls @ 1.87 mls/hr IVPB TITR [facility]; Protocol Last Titration: 06/07/19 07:36 Dose: 0 mcg/kg/min, 0 mls/hr Insulin Aspart (Novolog Vial Sliding Scale -) 1 vial SQ ACHS [facility]; Protocol Last Admin: 06/09/19 06:45 Dose: 4 units Methylprednisolone Sodium Succinate (Solu-Medrol -) 20 mg IVPUSH BID [facility] Last Admin: 06/09/19 09:29 Dose: 20 mg Mupirocin (Bactroban Ointment (For Decolonization) -) 1 applic NS BID [facility] Stop: 06/09/19 21:59 Last Admin: 06/09/19 09:42 Dose: 1 applic Non-Formulary Medication (Rotigotine [Neupro]) 1 each TD DAILY [facility] Last Admin: 06/09/19 09:43 Dose: 1 each Pantoprazole Sodium (Protonix Iv) 40 mg IVPUSH DAILY [facility] Last Admin: 06/09/19 09:30 Dose: 40 mg Polyethylene Glycol (Miralax (For Daily Use) -) 17 gm PO BID [facility] Last Admin: 06/09/19 09:41 Dose: 17 grams Rivastigmine (Exelon Patch 4.6mg/24 Hours -) 1 each TD DAILY [facility] Last Admin: 06/09/19 09:30 Dose: 1 each Senna (Senna Oral Solution -) 8.8 mg PO HS [facility] Last Admin: 06/08/19 22:31 Dose: 8.8 mg - Objective Vital Signs: Vital Signs Temperature 97.4 F L 06/09/19 10:00 Pulse Rate 62 06/09/19 10:00 Respiratory Rate 20 06/09/19 10:00 Blood Pressure 106/60 06/09/19 10:00 O2 Sat by Pulse Oximetry (%) 100 06/09/19 09:00 Constitutional: Yes: No Distress Eyes: Yes: Conjunctiva Clear Cardiovascular: Yes: Regular Rate and Rhythm, S1, S2 Respiratory: Yes: Mechanically Ventilated Gastrointestinal: Yes: Normal Bowel Sounds, Soft. No: Tenderness Edema: Yes Labs: CBC, BMP 06/09/19 05:38 06/09/19 05:38 INR, PTT INR 1.16 (0.83-1.09) H 06/01/19 09:40 Assessment/Plan RESP FAILURE PNEUMONIA SEPSIS TOXIC METABOLIC ENCEPHALOPATHY LEUKOCYTOSIS RENAL INSUFFICIENCY PARKINSONISM/OBS CONTINUE EMPIRIC ZOSYN WEAN TOLERATED
--- NOTE | 2019-06-09 11:53 | PN ---
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 (short form) - Note 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: s: intubated, not communicative Current Medications Acetylcysteine (Mucomyst 20 Oral / Inh Use Only*) 600 mg NEB RBID [facility] Last Admin: 06/09/19 09:01 Dose: 600 mg Albuterol Sulfate (Ventolin 0.083% Nebulizer Soln -) 1 amp NEB Q6H PRN PRN Reason: SHORT OF BREATH/WHEEZING Albuterol Sulfate (Ventolin 0.083% Nebulizer Soln -) 1 amp NEB RTID [facility] Last Admin: 06/09/19 09:01 Dose: 1 amp Carbidopa/Levodopa (Sinemet 25/100 -) 1 each PO TID@0700,1200,1900 [facility] Last Admin: 06/09/19 06:38 Dose: 1 each Chlorhexidine Gluconate (Hibiclens For Decolonization -) 1 applic TP HS [facility] Last Admin: 06/08/19 22:32 Dose: 1 applic Heparin Sodium (Porcine) (Heparin -) 5,000 unit SQ TID [facility] Last Admin: 06/09/19 06:38 Dose: 5,000 unit Piperacillin Sod/Tazobactam (Sod 3.375 gm/ Dextrose) 50 mls @ 100 mls/hr IVPB Q8H-IV [facility]; Protocol Last Admin: 06/09/19 09:27 Dose: 100 mls/hr Propofol (Diprivan -) 1,000,000 mcg in 100 mls @ 1.87 mls/hr IVPB TITR [facility]; Protocol Last Titration: 06/07/19 07:36 Dose: 0 mcg/kg/min, 0 mls/hr Insulin Aspart (Novolog Vial Sliding Scale -) 1 vial SQ ACHS [facility]; Protocol Last Admin: 06/09/19 06:45 Dose: 4 units Methylprednisolone Sodium Succinate (Solu-Medrol -) 20 mg IVPUSH BID [facility] Last Admin: 06/09/19 09:29 Dose: 20 mg Mupirocin (Bactroban Ointment (For Decolonization) -) 1 applic NS BID [facility] Stop: 06/09/19 21:59 Last Admin: 06/09/19 09:42 Dose: 1 applic Non-Formulary Medication (Rotigotine [Neupro]) 1 each TD DAILY [facility] Last Admin: 06/09/19 09:43 Dose: 1 each Pantoprazole Sodium (Protonix Iv) 40 mg IVPUSH DAILY [facility] Last Admin: 06/09/19 09:30 Dose: 40 mg Polyethylene Glycol (Miralax (For Daily Use) -) 17 gm PO BID [facility] Last Admin: 06/09/19 09:41 Dose: 17 grams Rivastigmine (Exelon Patch 4.6mg/24 Hours -) 1 each TD DAILY [facility] Last Admin: 06/09/19 09:30 Dose: 1 each Senna (Senna Oral Solution -) 8.8 mg PO HS [facility] Last Admin: 06/08/19 22:31 Dose: 8.8 mg Vital Signs Period Temp Pulse Resp BP Sys/Campbell Pulse Ox Last 24 Hr 97.4 F-98.7 F 44-72 16-22 87-138/52-84 96-100 Constitutional: Yes: Well Nourished, No Distress, Calm Cardiovascular: Yes: Regular Rate and Rhythm, S1, S2. No: Gallop, Murmur Respiratory: Yes: Regular, CTA Bilaterally (anteriorly). No: Accessory Muscle Use Extremities: No: Cold Edema: No Neurological: No: Alert, Oriented Psychiatric: No: Agitated Assessment/Plan echo 05/2019 nl LV/RV function, impaired relaxation, elevated filling pressures, RV not well visualized, mild to mod MR, mild mod TR CXR: no congestion/effusions (+ atx) tele: NSR, sinus debora/sinus arrhythmia PNA, sepsis, acute respiratory failure 2/2 suspected aspiration - manage per critical care, ID; vent support - intubated after suspected aspiration event - nl LV function on echo HTN: - holding diovan in setting of JOS, bp has been stable DM: - manage per primary dementia, parkinson's: - manage per primary JOS, rhabdo: - renal fxn improved, off IVF
--- NOTE | 2019-06-09 13:12 | PN ---
Teaching Attending Note Name of Resident: Yumi Snow ATTENDING PHYSICIAN STATEMENT I saw and evaluated the patient. I reviewed the resident's note and discussed the case with the resident. I agree with the resident's findings and plan as documented. SUBJECTIVE: Patient seen and examined in the ICU. Remains vented, AC Mode, 40% FiO2. No pressors. More lethargic today and not opening eyes to sternal rub. Intake & Output 06/06/19 06/07/19 06/08/19 06/09/19 23:59 23:59 23:59 23:59 Intake Total 2077.2 1958.4 1391 671 Output Total 1921 616 8097 500 Balance 977.2 1258.4 91 171 Weight 138 lb 14.4 oz 135 lb 4.8 oz 137 lb 11.2 oz 137 lb 11.2 oz Last Vital Signs Temp Pulse Resp BP Pulse Ox 97.4 F L 62 17 119/68 100 06/09/19 10:00 06/09/19 10:00 06/09/19 11:55 06/09/19 12:00 06/09/19 10:00 Active Medications Acetylcysteine (Mucomyst 20 Oral / Inh Use Only*) 600 mg NEB RBID [facility] Last Admin: 06/09/19 09:01 Dose: 600 mg Albuterol Sulfate (Ventolin 0.083% Nebulizer Soln -) 1 amp NEB Q6H PRN PRN Reason: SHORT OF BREATH/WHEEZING Albuterol Sulfate (Ventolin 0.083% Nebulizer Soln -) 1 amp NEB RTID [facility] Last Admin: 06/09/19 09:01 Dose: 1 amp Carbidopa/Levodopa (Sinemet 25/100 -) 1 each PO TID@0700,1200,1900 [facility] Last Admin: 06/09/19 12:15 Dose: 1 each Chlorhexidine Gluconate (Hibiclens For Decolonization -) 1 applic TP HS [facility] Last Admin: 06/08/19 22:32 Dose: 1 applic Heparin Sodium (Porcine) (Heparin -) 5,000 unit SQ TID [facility] Last Admin: 06/09/19 06:38 Dose: 5,000 unit Piperacillin Sod/Tazobactam (Sod 3.375 gm/ Dextrose) 50 mls @ 100 mls/hr IVPB Q8H-IV [facility]; Protocol Last Admin: 06/09/19 09:27 Dose: 100 mls/hr Propofol (Diprivan -) 1,000,000 mcg in 100 mls @ 1.87 mls/hr IVPB TITR [facility]; Protocol Last Titration: 06/07/19 07:36 Dose: 0 mcg/kg/min, 0 mls/hr Insulin Aspart (Novolog Vial Sliding Scale -) 1 vial SQ ACHS [facility]; Protocol Last Admin: 06/09/19 12:16 Dose: 4 units Methylprednisolone Sodium Succinate (Solu-Medrol -) 20 mg IVPUSH BID [facility] Last Admin: 06/09/19 09:29 Dose: 20 mg Mupirocin (Bactroban Ointment (For Decolonization) -) 1 applic NS BID [facility] Stop: 06/09/19 21:59 Last Admin: 06/09/19 09:42 Dose: 1 applic Non-Formulary Medication (Rotigotine [Neupro]) 1 each TD DAILY [facility] Last Admin: 06/09/19 09:43 Dose: 1 each Pantoprazole Sodium (Protonix Iv) 40 mg IVPUSH DAILY [facility] Last Admin: 06/09/19 09:30 Dose: 40 mg Polyethylene Glycol (Miralax (For Daily Use) -) 17 gm PO BID [facility] Last Admin: 06/09/19 09:41 Dose: 17 grams Rivastigmine (Exelon Patch 4.6mg/24 Hours -) 1 each TD DAILY [facility] Last Admin: 06/09/19 09:30 Dose: 1 each Senna (Senna Oral Solution -) 8.8 mg PO HS [facility] Last Admin: 06/08/19 22:31 Dose: 8.8 mg GENERAL: Intubated, opens eyes to sternal rub EYES: non icteric LUNGS: Vented, scattered bilateral rhonchi HEART: tachycardic, regular rhythm, S1, S2 ABDOMEN: Soft, nontender, nondistended, normoactive bowel sounds EXTREMITIES: 2+ pulses, warm, b/l dependent pedal edema. NEUROLOGICAL: lethargic Laboratory Results - last 24 hr 06/07/19 06/07/19 06/08/19 16:43 21:04 05:55 WBC 13.9 H RBC 4.29 Hgb 10.0 L Hct 30.3 L MCV 70.7 L MCH 23.4 L MCHC 33.1 RDW 16.7 H Plt Count 344 MPV 9.0 Sodium Potassium Chloride Carbon Dioxide Anion Gap BUN Creatinine Est GFR (CKD-EPI)AfAm Est GFR (CKD-EPI)NonAf POC Glucometer 321 429 Random Glucose Calcium Phosphorus Magnesium 06/08/19 06/08/19 06/08/19 05:55 06:10 10:43 WBC RBC Hgb Hct MCV MCH MCHC RDW Plt Count MPV Sodium 135 L Potassium 4.3 Chloride 100 Carbon Dioxide 32 Anion Gap 3 L BUN 21.7 H Creatinine 0.8 Est GFR (CKD-EPI)AfAm 80.14 Est GFR (CKD-EPI)NonAf 69.14 POC Glucometer 138 241 Random Glucose 150 H Calcium 8.2 L Phosphorus 2.4 L Magnesium 1.9 ASSESSMENT/PLAN: Acute Hypercapneic Respiratory Failure due to suspected Aspiration Parkinson Disease Dementia AMS PNA Leukocytosis Lactic acidosis -Check End tidal CO2 -Wean trials as tolerated -Pulmonary Toilet -ABX per ID -Enteral feeds -Medrol -Sinemet and Neupro and Rivastigmine patches -VTE prophylaxis -GI prophylaxis -Requires continued ICU monitoring Dr Collins Critical care time spent in reviewing chart, evaluating patient and formulating plan - 36 minutes.
--- NOTE | 2019-06-09 14:37 | PN ---
Teaching Attending Note Name of Resident: Simeon Balbuena ATTENDING PHYSICIAN STATEMENT I saw and evaluated the patient. I reviewed the resident's note and discussed the case with the resident. I agree with the resident's findings and plan as documented. SUBJECTIVE: No events over night OBJECTIVE: Intubated, not sedated . round equal pupils. reswpnds to painful stimuli MMM. CV: RRR Lungs: good air entry b/l anteriorly. clear. Abd: soft, NT, Nd , hypoactive BS. Ext: trace edema on feet. ASSESSMENT AND PLAN: 79 y/o lady with h/o Parkinson Disease and dementia who presented with AMS. 1- Acute hypercapnic resp failure. 2- PNA, likely aspiration PNA 3- JOS: improved. 4- Rhabdo 5- Thrombocytopenia: resolved 6- h/o HTN 7- h/o DM 8- AMS: acute metabolic encephalopathy 9- h/o dementia 10- Microcytic anemia 11- contaminant blood cx Plan: - CPAP and try to extubate - Cont steroids - TF. - cont to hold IVF - Cont zosyn . - yeast in sputum - cont Sinemet - heparin SQ. - cont SSI ICU
--- NOTE | 2019-06-09 17:27 | PN ---
Physical Exam: SUBJECTIVE: Patient seen and examined in the morning. No acute events overnight , patient is bradycardic on cardiac monitoring. Patient is off sedation >48 hours. Endotracheal tube was removed today. OBJECTIVE: Vital Signs Period Temp Pulse Resp BP Sys/Campbell Pulse Ox Last 24 Hr 97.4 F-98.7 F 44-66 16-22 87-129/52-68 100-100 GENERAL: The patient is awake, alert, and fully oriented, in no acute distress. HEAD: Normal with no signs of trauma. EYES: PERRL, extraocular movements intact, sclera anicteric, conjunctiva clear. No ptosis. ENT: Ears normal, nares patent, on high flow oxygen NECK: Trachea midline, full range of motion, supple. LUNGS: B/l crackles. HEART: S1, S2, 3/6 murmurs, rubs, gallops ABDOMEN: Soft, nontender, nondistended, hypoactive bowel sounds EXTREMITIES: 2+ pulses, warm, well-perfused, no edema. NEUROLOGICAL: Cranial nerves II through XII grossly intact. Normal speech, gait not observed. PSYCH: Normal mood, normal affect. SKIN: SKIN: Sacral ulcer present, [id number], no discharge present Laboratory Results - last 24 hr 06/08/19 06/09/19 06/09/19 22:34 05:38 05:38 WBC 12.7 H RBC 3.97 Hgb 9.2 L Hct 28.1 L MCV 70.9 L MCH 23.1 L MCHC 32.5 RDW 16.7 H Plt Count 331 MPV 9.0 Absolute Neuts (auto) 10.1 H Neutrophils % 79.4 Lymphocytes % 15.4 D Monocytes % 4.9 Eosinophils % 0.0 Basophils % 0.3 Nucleated RBC % 0 Sodium 137 Potassium 4.3 Chloride 101 Carbon Dioxide 30 Anion Gap 6 L BUN 20.0 H Creatinine 0.8 Est GFR (CKD-EPI)AfAm 80.14 Est GFR (CKD-EPI)NonAf 69.14 POC Glucometer 199 Random Glucose 259 H Calcium 7.8 L Phosphorus 3.4 Magnesium 2.1 Total Bilirubin 0.3 AST 21 ALT 40 Alkaline Phosphatase 74 Total Protein 6.2 L Albumin 2.3 L 06/09/19 06/09/19 06/09/19 06:43 12:13 16:53 WBC RBC Hgb Hct MCV MCH MCHC RDW Plt Count MPV Absolute Neuts (auto) Neutrophils % Lymphocytes % Monocytes % Eosinophils % Basophils % Nucleated RBC % Sodium Potassium Chloride Carbon Dioxide Anion Gap BUN Creatinine Est GFR (CKD-EPI)AfAm Est GFR (CKD-EPI)NonAf POC Glucometer 280 264 172 Random Glucose Calcium Phosphorus Magnesium Total Bilirubin AST ALT Alkaline Phosphatase Total Protein Albumin Active Medications Generic Name Dose Route Start Last Admin Trade Name Freq PRN Reason Stop Dose Admin Acetylcysteine 600 mg 06/05/19 08:00 06/09/19 09:01 Mucomyst 20 Oral / Inh Use Only* NEB 600 mg RBID [facility] Administration Albuterol Sulfate 1 amp 06/04/19 21:42 Ventolin 0.083% Nebulizer Soln - NEB Q6H PRN SHORT OF BREATH/WHEEZING Albuterol Sulfate 1 amp 06/05/19 08:00 06/09/19 16:37 Ventolin 0.083% Nebulizer Soln - NEB 1 amp RTID [facility] Administration Carbidopa/Levodopa 1 each 06/05/19 07:00 06/09/19 12:15 Sinemet 25/100 - PO 1 each TID@0700,1200,1900 [facility] Administration Chlorhexidine Gluconate 1 applic 06/04/19 22:00 06/08/19 22:32 Hibiclens For Decolonization - TP 1 applic HS [facility] Administration Heparin Sodium (Porcine) 5,000 unit 06/04/19 22:00 06/09/19 15:59 Heparin - SQ 5,000 unit TID [facility] Administration Piperacillin Sod/Tazobactam 50 mls @ 100 mls/hr 06/05/19 02:00 06/09/19 17:11 Sod 3.375 gm/ Dextrose IVPB 100 mls/hr Q8H-IV [facility] Administration Protocol Insulin Aspart 1 vial 06/07/19 22:00 06/09/19 17:06 Novolog Vial Sliding Scale - SQ 2 units ACHS [facility] Administration Protocol Methylprednisolone Sodium Succinate 20 mg 06/08/19 10:00 06/09/19 09:29 Solu-Medrol - IVPUSH 20 mg BID [facility] Administration Mupirocin 1 applic 06/04/19 22:00 06/09/19 09:42 Bactroban Ointment (For Decolonization) - NS 06/09/19 21:59 1 applic BID [facility] Administration Non-Formulary Medication 1 each 06/05/19 10:00 06/09/19 09:43 Rotigotine [Neupro] TD 1 each DAILY [facility] Administration Pantoprazole Sodium 40 mg 06/05/19 10:00 06/09/19 09:30 Protonix Iv IVPUSH 40 mg DAILY [facility] Administration Polyethylene Glycol 17 gm 06/08/19 13:45 06/09/19 09:41 Miralax (For Daily Use) - PO 17 grams BID [facility] Administration Rivastigmine 1 each 06/05/19 10:00 06/09/19 09:30 Exelon Patch 4.6mg/24 Hours - TD 1 each DAILY [facility] Administration Senna 8.8 mg 06/08/19 22:00 06/08/19 22:31 Senna Oral Solution - PO 8.8 mg HS [facility] Administration ASSESSMENT/PLAN: 79 F PMH of Parkinson's dx, dementia, AMS for the past week, admitted to [facility] for PNA, was transferred to ICU for labored breathing, patient subsequently had respiratory failure and had required intubation. Neuro -Hx of Parkinson's and dementia -Patient has not been at baseline mentation, AMS for the past week -Pt was restarted on home rivostigimine and rotigotone -Continue sinamet -CT head negative -Possible toxic metabolic encephalopathy in setting of Co2 narcosis, -Off sedation Pulm -Acute hypercapnic hypoxic respiratory failure 2/2 multilobar PNA, now intubated -Chest X-Ray stable -Flu negative -Possible aspiration event -Duonebs -Methylprednisone 20 BID -Zoysn -Azithromax -Extubated today to high flow oxygen 30/30 Cardio -Hx of HTN -Patient has episodes of bradycardia. Attributed to parkinsonian medications. -Echo done on 05/2019 shows normla LV/RV, impaired relaxation, elevated filling pressures, RV not well visualized, mild to moderate MR, mild to moderate TR. -BP stable, holding diovan -Cardiology consulted, appreciate recs GI -Currently stable, tube feeds at low rate, was stopped for pre-extubation and for a few hours after extubation. ID -Leukocytosis, lactic acidosis on presentation -Lactic acid resolved -Leukocytosis present -Continue Zoysn -Possible aspiration PNA or pneumonitis Renal -JOS resolved -IV fluids stopped -Nephrology consulted, appreciate recs Heme -Anemia of chronic disease -Will continue to follow DVT: Heparin SQ GI PPX: Protonix F: No fluids E: Monitor CMP N: Tube feeds Dispo: Currently under ICU monitoring. LInes and foleys: NGT 06/02 Visit type - Emergency Visit Emergency Visit: Yes ED Registration Date: 06/01/19 Care time: The patient presented to the Emergency Department on the above date and was hospitalized for further evaluation of their emergent condition. - New Patient This patient is new to me today: No - Critical Care Critical Care patient: Yes Total Critical Care Time (in minutes): 45 Critical Care Statement: The care of this patient involved high complexity decision making to prevent further life threatening deterioration of the patient 's condition and/or to evaluate & treat vital organ system(s) failure or risk of failure. ATTENDING PHYSICIAN STATEMENT I saw and evaluated the patient. I reviewed the resident's note and discussed the case with the resident. I agree with the resident's findings and plan as documented. SUBJECTIVE: OBJECTIVE: ASSESSMENT AND PLAN:
--- NOTE | 2019-06-09 18:45 | PN ---
Physical Exam: SUBJECTIVE: Patient seen and examined NAEON Off sedation >48hr. Intubated OBJECTIVE: Vital Signs Period Temp Pulse Resp BP Sys/Campbell Pulse Ox Last 24 Hr 97.4 F-98.5 F 44-71 16-22 87-129/52-68 100-100 GENERAL: Lethargic, off sedation > 48hs. Not intubated HEAD: NC/AT EYES: extraocular movements tracking movement briefly, sclera anicteric, conjunctiva clear. No ptosis. ENT: Ears normal, nares patent, NGT feed NECK: Trachea midline, full range of motion, supple. LUNGS: Breath sounds equal, mildly coarse BS bilaterally. Ventilated HEART: Regular rate and rhythm, S1, S2 without murmur, rub or gallop. ABDOMEN: Soft, nontender, nondistended, normoactive bowel sounds, no guarding, no rebound. EXTREMITIES: 2+ pulses, warm, well-perfused, no edema. BLE with nonpitting edema. DP2+ b/l NEUROLOGICAL: not opening eyes to pain, withdrawing BUE and BLE to painful stimuli, intbuated SKIN: Warm, dry, normal turgor, no rashes or lesions noted Laboratory Results - last 24 hr 06/08/19 06/09/19 06/09/19 22:34 05:38 05:38 WBC 12.7 H RBC 3.97 Hgb 9.2 L Hct 28.1 L MCV 70.9 L MCH 23.1 L MCHC 32.5 RDW 16.7 H Plt Count 331 MPV 9.0 Absolute Neuts (auto) 10.1 H Neutrophils % 79.4 Lymphocytes % 15.4 D Monocytes % 4.9 Eosinophils % 0.0 Basophils % 0.3 Nucleated RBC % 0 Sodium 137 Potassium 4.3 Chloride 101 Carbon Dioxide 30 Anion Gap 6 L BUN 20.0 H Creatinine 0.8 Est GFR (CKD-EPI)AfAm 80.14 Est GFR (CKD-EPI)NonAf 69.14 POC Glucometer 199 Random Glucose 259 H Calcium 7.8 L Phosphorus 3.4 Magnesium 2.1 Total Bilirubin 0.3 AST 21 ALT 40 Alkaline Phosphatase 74 Total Protein 6.2 L Albumin 2.3 L 06/09/19 06/09/19 06/09/19 06:43 12:13 16:53 WBC RBC Hgb Hct MCV MCH MCHC RDW Plt Count MPV Absolute Neuts (auto) Neutrophils % Lymphocytes % Monocytes % Eosinophils % Basophils % Nucleated RBC % Sodium Potassium Chloride Carbon Dioxide Anion Gap BUN Creatinine Est GFR (CKD-EPI)AfAm Est GFR (CKD-EPI)NonAf POC Glucometer 280 264 172 Random Glucose Calcium Phosphorus Magnesium Total Bilirubin AST ALT Alkaline Phosphatase Total Protein Albumin Active Medications Generic Name Dose Route Start Last Admin Trade Name Freq PRN Reason Stop Dose Admin Acetylcysteine 600 mg 06/05/19 08:00 06/09/19 09:01 Mucomyst 20 Oral / Inh Use Only* NEB 600 mg RBID VASYL Administration Albuterol Sulfate 1 amp 06/04/19 21:42 Ventolin 0.083% Nebulizer Soln - NEB Q6H PRN SHORT OF BREATH/WHEEZING Albuterol Sulfate 1 amp 06/05/19 08:00 06/09/19 16:37 Ventolin 0.083% Nebulizer Soln - NEB 1 amp RTID VASYL Administration Carbidopa/Levodopa 1 each 06/05/19 07:00 06/09/19 18:21 Sinemet 25/100 - PO 1 each TID@0700,1200,1900 V[facility]YL Administration Chlorhexidine Gluconate 1 applic 06/04/19 22:00 06/08/19 22:32 Hibiclens For Decolonization - TP 1 applic HS VASYL Administration Heparin Sodium (Porcine) 5,000 unit 06/04/19 22:00 06/09/19 15:59 Heparin - SQ 5,000 unit TID VASYL Administration Piperacillin Sod/Tazobactam 50 mls @ 100 mls/hr 06/05/19 02:00 06/09/19 17:11 Sod 3.375 gm/ Dextrose IVPB 100 mls/hr Q8H-IV VASYL Administration Protocol Insulin Aspart 1 vial 06/07/19 22:00 06/09/19 17:06 Novolog Vial Sliding Scale - SQ 2 units ACHS VASYL Administration Protocol Methylprednisolone Sodium Succinate 20 mg 06/08/19 10:00 06/09/19 09:29 Solu-Medrol - IVPUSH 20 mg BID VASYL Administration Mupirocin 1 applic 06/04/19 22:00 06/09/19 09:42 Bactroban Ointment (For Decolonization) - NS 06/09/19 21:59 1 applic BID VASYL Administration Non-Formulary Medication 1 each 06/05/19 10:00 06/09/19 09:43 Rotigotine [Neupro] TD 1 each DAILY V[facility]YL Administration Pantoprazole Sodium 40 mg 06/05/19 10:00 06/09/19 09:30 Protonix Iv IVPUSH 40 mg DAILY VASYL Administration Polyethylene Glycol 17 gm 06/08/19 13:45 06/09/19 09:41 Miralax (For Daily Use) - PO 17 grams BID VASYL Administration Rivastigmine 1 each 06/05/19 10:00 06/09/19 09:30 Exelon Patch 4.6mg/24 Hours - TD 1 each DAILY V[facility]YL Administration Senna 8.8 mg 06/08/19 22:00 06/08/19 22:31 Senna Oral Solution - PO 8.8 mg HS VASYL Administration ASSESSMENT/PLAN: 79y/o female with Parkinson's and dementia who presents with AMS and cough x 4 days. Pt was hypoxic to the 80s at ED presentation. Intubated for increased work of breathing. Possibly had aspiration PNA #acute hypoxic respiratory failure 2/2 multilobar PNA and sepsis -CXR improved post-intubation > CXR(06/08/19): Left base w/ minimal atelectasis, sharp rib angles > flu: negative > Echo: normal EF, impaired relaxation, elevated filling pressures, TR, MR -duonebs TID -solumedrol 20mg IVP BID -zosyn 3.375g Q8H -ID following #AMS toxic metabolic encephalopathy vs less likely CVA -CT head negative for acute processes -urine cx negative -blood cx(06/01/19)- Staph coag negative in 1 bottle -blood cx(06/03/19): NGTD -dietary following -speech following #sacral skin tear -surgery consulted- management per note #leukocytosis -from infection vs steroid use -mild improvement continues -continue monitor #JOS, resolved -1/2 NS with K -nephro following #anemia of chronic disease -microcytosis but low TIBC, unsaturated IBC, and high ferritin #Parkinson's and dementia -continue Sinimet, modified dose for NG tube, @0700, 1200, 1900 -rivostigmine patch -rotigotine patch #mild hypophosphatemia, resolved #lactic acidosis, resolved #transaminitis, improved DVT ppx heparin GI ppx protonix FEN 1/2 NS + K at 83mL/hr monitor labs NG feeds Visit type - Emergency Visit Emergency Visit: No - New Patient This patient is new to me today: No - Critical Care Critical Care patient: No ATTENDING PHYSICIAN STATEMENT I saw and evaluated the patient. I reviewed the resident's note and discussed the case with the resident. I agree with the resident's findings and plan as documented. SUBJECTIVE: OBJECTIVE: ASSESSMENT AND PLAN:
[2019-06-09] MEDS ORDERED: PT OWN MED DRAWER 7, Y5N ONE (21:42)
[2019-06-09] MEDS: CHLORHEXIDINE GLUCONATE 4% CLEANSER FOR DECOLONIZATION TP SCH (21:50)
[2019-06-10] MEDS ORDERED: PIPERACILLIN/TAZOBACTAM 3.375 GM VIAL IVPB ONE ×4 (01:22→21:18)
[2019-06-10] MEDS ORDERED: DEXTROSE 5%-WATER - 50 ML IVPB ONE ×4 (01:23→21:18)
[2019-06-10] MEDS: PIPERACILLIN/TAZOB 3.375 GM 3.375 GM in DEXTROSE 5%-WATER - 50 ML IVPB SCH ×3 (01:25→17:46)
[2019-06-10] MEDS: HEPARIN NA (PORCINE) 5,000 UNITS/ML 1ML VIAL SQ SCH ×3 (05:20→21:20)
[2019-06-10] MEDS: CARBIDOPA/LEVODOPA 25/100 TABLET (FP) PO SCH ×3 (06:10→18:08)
[2019-06-10 06:19] LABS: HEMOGLOBIN 8.9 GM/dL (10.7-15.3); MCH 22.9 pg (25.7-33.7); MCHC 31.9 g/dl (32.0-36.0); MEAN CELL VOLUME 71.9 fl (80-96); MEAN PLT VOLUME 9.1 fl (7.5-11.1); PLATELET COUNT 330 K/MM3 (134-434); RBC 3.89 M/mm3 (3.60-5.2); RDW 16.8 % (11.6-15.6); WHITE BLOOD COUNT 11.6 K/mm3 (4.0-10.0)
[2019-06-10] MEDS: INSULIN SLIDING SCALE (NOVOLOG) 1 VIAL SQ SCH ×4 (06:24→21:24)
[2019-06-10 06:47] LABS: BLOOD UREA NITROGEN 21.3 mg/dL (7-18); CREATININE 0.8 mg/dL (0.55-1.3); MAGNESIUM 2.2 mg/dL (1.8-2.4); PHOSPHOROUS 2.8 mg/dL (2.5-4.9); POTASSIUM 3.9 mmol/L (3.5-5.1)
--- NOTE | 2019-06-10 07:02 | PN ---
Physical Exam: SUBJECTIVE: Patient seen and examined Patient continues to be somnolent but arousable to painful stimuli, does not open her eyes. Patient is extubated and currently on high flow oxygen. Vitals stable. OBJECTIVE: Vital Signs Period Temp Pulse Resp BP Sys/Campbell Pulse Ox Last 24 Hr 97.4 F-98.5 F 53-74 17-22 90-119/52-68 100-100 GENERAL: The patient is somnolent and arousable only to painful stimuli, in no acute distress, on high flow oxygen. HEAD: Normal with no signs of trauma. EYES: PERRL, extraocular movements intact, sclera anicteric, conjunctiva clear. No ptosis. ENT: Ears normal, nares patent, oropharynx clear without exudates, moist mucous membranes. NECK: Trachea midline, full range of motion, supple. LUNGS: Breath sounds equal, clear to auscultation bilaterally. HEART: Regular rate and rhythm. ABDOMEN: Soft, nontender, nondistended, normoactive bowel sounds. EXTREMITIES: 2+ pulses, warm, well-perfused, no edema. NEUROLOGICAL: Unable to assess cranial nerves, patient somnolent. PSYCH: Unable to assess. SKIN: Warm, dry, normal turgor, no rashes or lesions noted Laboratory Results - last 24 hr 06/09/19 06/09/19 06/09/19 05:38 05:38 12:13 WBC 12.7 H RBC 3.97 Hgb 9.2 L Hct 28.1 L MCV 70.9 L MCH 23.1 L MCHC 32.5 RDW 16.7 H Plt Count 331 MPV 9.0 Absolute Neuts (auto) 10.1 H Neutrophils % 79.4 Lymphocytes % 15.4 D Monocytes % 4.9 Eosinophils % 0.0 Basophils % 0.3 Nucleated RBC % 0 Sodium 137 Potassium 4.3 Chloride 101 Carbon Dioxide 30 Anion Gap 6 L BUN 20.0 H Creatinine 0.8 Est GFR (CKD-EPI)AfAm 80.14 Est GFR (CKD-EPI)NonAf 69.14 POC Glucometer 264 Random Glucose 259 H Calcium 7.8 L Phosphorus 3.4 Magnesium 2.1 Total Bilirubin 0.3 AST 21 ALT 40 Alkaline Phosphatase 74 Total Protein 6.2 L Albumin 2.3 L 01/14/20 01/14/20 01/15/20 16:53 21:55 01:14 WBC RBC Hgb Hct MCV MCH MCHC RDW Plt Count MPV Absolute Neuts (auto) Neutrophils % Lymphocytes % Monocytes % Eosinophils % Basophils % Nucleated RBC % Sodium Potassium Chloride Carbon Dioxide Anion Gap BUN Creatinine Est GFR (CKD-EPI)AfAm Est GFR (CKD-EPI)NonAf POC Glucometer 172 182 205 Random Glucose Calcium Phosphorus Magnesium Total Bilirubin AST ALT Alkaline Phosphatase Total Protein Albumin 06/10/19 06/10/19 06/10/19 05:32 05:32 06:19 WBC 11.6 H RBC 3.89 Hgb 8.9 L Hct 28.0 L MCV 71.9 L MCH 22.9 L MCHC 31.9 L RDW 16.8 H Plt Count 330 MPV 9.1 Absolute Neuts (auto) Neutrophils % Lymphocytes % Monocytes % Eosinophils % Basophils % Nucleated RBC % Sodium 139 Potassium 3.9 Chloride 104 Carbon Dioxide 32 Anion Gap 3 L BUN 21.3 H Creatinine 0.8 Est GFR (CKD-EPI)AfAm 80.14 Est GFR (CKD-EPI)NonAf 69.14 POC Glucometer 252 Random Glucose 273 H Calcium 8.0 L Phosphorus 2.8 Magnesium 2.2 Total Bilirubin AST ALT Alkaline Phosphatase Total Protein Albumin Active Medications Generic Name Dose Route Start Last Admin Trade Name Freq PRN Reason Stop Dose Admin Acetylcysteine 600 mg 06/05/19 08:00 06/09/19 21:05 Mucomyst 20 Oral / Inh Use Only* NEB 600 mg RBID VASYL Administration Albuterol Sulfate 1 amp 06/04/19 21:42 Ventolin 0.083% Nebulizer Soln - NEB Q6H PRN SHORT OF BREATH/WHEEZING Albuterol Sulfate 1 amp 06/05/19 08:00 06/09/19 21:05 Ventolin 0.083% Nebulizer Soln - NEB 1 amp RTID VASYL Administration Carbidopa/Levodopa 1 each 06/05/19 07:00 06/10/19 06:10 Sinemet 25/100 - PO 1 each TID@0700,1200,1900 VASYL Administration Chlorhexidine Gluconate 1 applic 06/04/19 22:00 06/09/19 21:50 Hibiclens For Decolonization - TP 1 applic HS VASYL Administration Heparin Sodium (Porcine) 5,000 unit 06/04/19 22:00 06/10/19 05:20 Heparin - SQ 5,000 unit TID VASYL Administration Piperacillin Sod/Tazobactam 50 mls @ 100 mls/hr 06/05/19 02:00 06/10/19 01:25 Sod 3.375 gm/ Dextrose IVPB 100 mls/hr Q8H-IV VASYL Administration Protocol Insulin Aspart 1 vial 06/07/19 22:00 06/10/19 06:24 Novolog Vial Sliding Scale - SQ 4 units ACHS VASYL Administration Protocol Methylprednisolone Sodium Succinate 20 mg 06/08/19 10:00 06/09/19 21:47 Solu-Medrol - IVPUSH 20 mg BID VASYL Administration Non-Formulary Medication 1 each 06/05/19 10:00 06/09/19 09:43 Rotigotine [Neupro] TD 1 each DAILY VASYL Administration Pantoprazole Sodium 40 mg 06/05/19 10:00 06/09/19 09:30 Protonix Iv IVPUSH 40 mg DAILY VASYL Administration Rivastigmine 1 each 06/05/19 10:00 06/09/19 09:30 Exelon Patch 4.6mg/24 Hours - TD 1 each DAILY VASYL Administration ASSESSMENT/PLAN: 79 F PMH of Parkinson's dx, dementia, AMS, admitted to [facility] for PNA, was transferred to ICU for labored breathing, patient subsequently had respiratory failure and had required intubation. Now extubated, on high flow oxygen. Neuro -Hx of Parkinson's and dementia -Patient has not been at baseline mentation, has not yet woken up -Pt was restarted on home rivostigimine and rotigotone -Continue sinamet -CT head negative -Extubated, off sedation Pulm -Acute hypercapnic hypoxic respiratory failure 2/2 multilobar PNA, initially intubated, now on high flow oxygen 30/30 -Chest X-Ray stable -Flu negative -Duonebs -Methylprednisone 20 BID -Zoysn -Azithromax Cardio -Hx of HTN -Patient had episodes of bradycardia which were attributed to parkinsonian medications, currently normal rhythm. -Echo done on 05/2019 shows normal LV/RV, impaired relaxation, elevated filling pressures, RV not well visualized, mild to moderate MR, mild to moderate TR. -BP stable, holding diovan -Cardiology consulted, appreciate recs GI -Currently stable, tube feeds at low rate, was stopped for pre-extubation and for a few hours after extubation but now continuing. ID -Leukocytosis, lactic acidosis on presentation -Lactic acid resolved -Leukocytosis present -Continue Zoysn -Possible aspiration PNA or pneumonitis Renal -JOS resolved -IV fluids stopped -Nephrology consulted, appreciate recs Heme -Anemia of chronic disease -Will continue to follow DVT: Heparin SQ GI PPX: Protonix F: No fluids E: Monitor CMP N: Tube feeds Dispo: Currently under ICU monitoring, weaning of high flow oxygen planned for today. Visit type - Emergency Visit Emergency Visit: Yes ED Registration Date: 06/01/19 Care time: The patient presented to the Emergency Department on the above date and was hospitalized for further evaluation of their emergent condition. - New Patient This patient is new to me today: No - Critical Care Critical Care patient: Yes Total Critical Care Time (in minutes): 15 ATTENDING PHYSICIAN STATEMENT I saw and evaluated the patient. I reviewed the resident's note and discussed the case with the resident. I agree with the resident's findings and plan as documented. SUBJECTIVE: OBJECTIVE: ASSESSMENT AND PLAN:
--- NOTE | 2019-06-10 08:14 | PN ---
Teaching Attending Note Name of Resident: Miguel A Stovall ATTENDING PHYSICIAN STATEMENT I saw and evaluated the patient. I reviewed the resident's note and discussed the case with the resident. I agree with the resident's findings and plan as documented. SUBJECTIVE: Patient is in ICu, extubated on high flow oxygen. Non verbal Vital Signs Temperature 98.4 F 06/10/19 02:00 Pulse Rate 69 06/10/19 06:00 Respiratory Rate 21 H 06/10/19 06:00 Blood Pressure 99/58 L 06/10/19 06:00 O2 Sat by Pulse Oximetry (%) 100 06/10/19 06:00 GENERAL: The patient is nonverbal, in no acute distress. on high flow oxygen. HEAD: Normal with no signs of trauma. EYES: PERRL, extraocular movements intact, sclera anicteric, conjunctiva clear. ENT: Ears normal, oropharynx clear without exudates, moist mucous membranes. NECK: Trachea midline, full range of motion, supple. LUNGS: decreased Breath sounds bl, no wheezes, no crackles, no accessory muscle use. HEART: Regular rate and rhythm, S1, S2 without murmur, rub or gallop. ABDOMEN: Soft, NT,ND, normoactive bowel sounds, no guarding, no rebound, no hepatosplenomegaly, no masses. EXTREMITIES: 2+ pulses, warm, well-perfused, no edema. NEUROLOGICAL: Cranial nerves II through XII grossly intact. Normal speech, gait not observed. PSYCH: Normal mood, normal affect. SKIN: Warm, dry, normal turgor, no rashes or lesions noted CBCD WBC 11.6 K/mm3 (4.0-10.0) H 06/10/19 05:32 RBC 3.89 M/mm3 (3.60-5.2) 06/10/19 05:32 Hgb 8.9 GM/dL (10.7-15.3) L 06/10/19 05:32 Hct 28.0 % (32.4-45.2) L 06/10/19 05:32 MCV 71.9 fl (80-96) L 06/10/19 05:32 MCHC 31.9 g/dl (32.0-36.0) L 06/10/19 05:32 RDW 16.8 % (11.6-15.6) H 06/10/19 05:32 Plt Count 330 K/MM3 (134-434) 06/10/19 05:32 MPV 9.1 fl (7.5-11.1) 06/10/19 05:32 CMP Sodium 139 mmol/L (136-145) 06/10/19 05:32 Potassium 3.9 mmol/L (3.5-5.1) 06/10/19 05:32 Chloride 104 mmol/L (98-107) 06/10/19 05:32 Carbon Dioxide 32 mmol/L (21-32) 06/10/19 05:32 Anion Gap 3 MMOL/L (8-16) L 06/10/19 05:32 BUN 21.3 mg/dL (7-18) H 06/10/19 05:32 Creatinine 0.8 mg/dL (0.55-1.3) 06/10/19 05:32 Random Glucose 273 mg/dL (74-106) H 06/10/19 05:32 Calcium 8.0 mg/dL (8.5-10.1) L 06/10/19 05:32 Total Bilirubin 0.3 mg/dL (0.2-1) 06/09/19 05:38 AST 21 U/L (15-37) 06/09/19 05:38 ALT 40 U/L (13-61) 06/09/19 05:38 Alkaline Phosphatase 74 U/L (45-117) 06/09/19 05:38 Total Protein 6.2 g/dl (6.4-8.2) L 06/09/19 05:38 Albumin 2.3 g/dl (3.4-5.0) L 06/09/19 05:38 CARDIAC ENZYMES Creatine Kinase 281 U/L (26-192) H 06/04/19 06:30 Troponin I < 0.02 ng/ml (0.00-0.05) 06/01/19 04:07 Current Medications Generic Name Dose Route Start Last Admin Trade Name Freq PRN Reason Stop Dose Admin Acetylcysteine 600 mg 06/05/19 08:00 06/09/19 21:05 Mucomyst 20 Oral / Inh Use Only* NEB 600 mg RBID VASYL Administration Albuterol Sulfate 1 amp 06/04/19 21:42 Ventolin 0.083% Nebulizer Soln - NEB Q6H PRN SHORT OF BREATH/WHEEZING Albuterol Sulfate 1 amp 06/05/19 08:00 06/09/19 21:05 Ventolin 0.083% Nebulizer Soln - NEB 1 amp RTID VASYL Administration Carbidopa/Levodopa 1 each 06/05/19 07:00 06/10/19 06:10 Sinemet 25/100 - PO 1 each TID@0700,1200,1900 VASYL Administration Chlorhexidine Gluconate 1 applic 06/04/19 22:00 06/09/19 21:50 Hibiclens For Decolonization - TP 1 applic HS VASYL Administration Heparin Sodium (Porcine) 5,000 unit 06/04/19 22:00 06/10/19 05:20 Heparin - SQ 5,000 unit TID VASYL Administration Piperacillin Sod/Tazobactam 50 mls @ 100 mls/hr 06/05/19 02:00 06/10/19 01:25 Sod 3.375 gm/ Dextrose IVPB 100 mls/hr Q8H-IV VASYL Administration Protocol Insulin Aspart 1 vial 06/07/19 22:00 06/10/19 06:24 Novolog Vial Sliding Scale - SQ 4 units ACHS VASYL Administration Protocol Methylprednisolone Sodium Succinate 20 mg 06/08/19 10:00 06/09/19 21:47 Solu-Medrol - IVPUSH 20 mg BID VASYL Administration Non-Formulary Medication 1 each 06/05/19 10:00 06/09/19 09:43 Rotigotine [Neupro] TD 1 each DAILY VASYL Administration Pantoprazole Sodium 40 mg 06/05/19 10:00 06/09/19 09:30 Protonix Iv IVPUSH 40 mg DAILY VASYL Administration Rivastigmine 1 each 06/05/19 10:00 06/09/19 09:30 Exelon Patch 4.6mg/24 Hours - TD 1 each DAILY VASYL Administration Home Medications Medication Instructions Recorded Ca/D3/Mag Ox/Zinc/[employer]/Ketan/Bor 1 each PO HS 04/13/18 [Calcium 600-D3 Plus Caplet] Carbidopa/Levodopa [Carbidopa-Levo 1 each PO TID 04/13/18 ER 50-200 Tab] Aspirin 81 mg PO DAILY 06/01/19 Melatonin 5 mg PO HS 06/01/19 Olanzapine [Zyprexa -] 7.5 mg PO DAILY 06/01/19 Omeprazole 20 mg PO DAILY 06/01/19 Rivastigmine [Exelon Patch 1 each TD DAILY 06/01/19 4.6MG/24 Hours] Rotigotine [Neupro] 1 each TD DAILY 06/01/19 Microbiology 06/03/19 11:40 Blood - Peripheral Venous Blood Culture - Final NO GROWTH AFTER 5 DAYS INCUBATION 06/03/19 12:00 Blood - Peripheral Venous Blood Culture - Final NO GROWTH AFTER 5 DAYS INCUBATION 06/04/19 06:20 Sputum - Oropharynx Suctioned Sputum Gram Stain - Final 06/04/19 06:20 Sputum - Oropharynx Suctioned Sputum Sputum Culture - Final Yeast Like Organism 06/01/19 00:00 Blood - Peripheral Venous Blood Culture - Final NO GROWTH AFTER 5 DAYS INCUBATION 06/01/19 00:00 Blood - Peripheral Venous Blood Culture - Final Staph Capitis Subsp Ureolyticu 06/01/19 03:00 Urine For Antigen Detection Legionella Antigen - Final 06/01/19 03:00 Urine For Antigen Detection Streptococcus pneumoniae Antigen (M - Final 06/01/19 01:20 Urine - Urine - Catheterized Urine Culture - Final NO GROWTH OBTAINED Laboratory Tests 06/01/19 06/01/19 06/02/19 16:50 20:00 05:47 BUN 37.6 H 32.5 H Creatinine 1.3 1.1 Lactic Acid 3.6 H* Creatine Kinase 1578 H 954 H 06/02/19 06/04/19 05:47 06:30 BUN Creatinine Lactic Acid 1.5 Creatine Kinase 281 H Assessment and plan: Patient is an 79yof with h/o Parkinson Disease and dementia who presented with AMS. # Acute hypercapnic resp failure s/p intubation and extubation , comfortable on high flow oxygen now. cpap if needed. Cont steroids # PNA, likely aspiration PNA continue IV zosyn # JOS: improved. # Rhabdo s/p IVF # Thrombocytopenia: resolved # h/o HTN # h/o DM: cont SSI # AMS: acute metabolic encephalopathy # h/o dementia # Microcytic anemia #contaminant blood cx # hx of Parkisonism cont Sinemet # yeast in sputum DVT px; heparin SQ.
[2019-06-10] MEDS: ACETYLCYSTEINE 20% 200MG/ML 4 ML VIAL *FOR ORAL / INH USE ONLY NEB SCH ×2 (08:36→20:55)
[2019-06-10] MEDS: ALBUTEROL SO4 0.083% IH SOL 2.5 MG/3 ML VIAL.NEB. NEB SCH ×3 (08:37→20:55)
[2019-06-10] MEDS ORDERED: SODIUM CHLORIDE 500 ML IV STA (09:04)
--- NOTE | 2019-06-10 09:27 | PN ---
Teaching Attending Note Name of Resident: Christie Ellis ATTENDING PHYSICIAN STATEMENT I saw and evaluated the patient. I reviewed the resident's note and discussed the case with the resident. I agree with the resident's findings and plan as documented. SUBJECTIVE: Patient seen and examined in the ICU. Extubated on HFOT. Lethargic and poorly responsive but protecting her airway. No pressors. Intake & Output 06/07/19 06/08/19 06/09/19 06/10/19 23:59 23:59 23:59 23:59 Intake Total 1958.4 1391 1581 Output Total 700 1300 1000 1000 Balance 1258.4 91 581 -1000 Weight 135 lb 4.8 oz 137 lb 11.2 oz 137 lb 11.2 oz 145 lb 8.081 oz Last Vital Signs Temp Pulse Resp BP Pulse Ox 98.4 F 82 22 H 99/58 L 99 06/10/19 02:00 06/10/19 08:35 06/10/19 09:00 06/10/19 06:00 06/10/19 09:00 Active Medications Acetylcysteine (Mucomyst 20 Oral / Inh Use Only*) 600 mg NEB RBID [facility] Last Admin: 06/10/19 08:36 Dose: 600 mg Albuterol Sulfate (Ventolin 0.083% Nebulizer Soln -) 1 amp NEB Q6H PRN PRN Reason: SHORT OF BREATH/WHEEZING Albuterol Sulfate (Ventolin 0.083% Nebulizer Soln -) 1 amp NEB RTID [facility] Last Admin: 06/10/19 08:37 Dose: 1 amp Carbidopa/Levodopa (Sinemet 25/100 -) 1 each PO TID@0700,1200,1900 [facility] Last Admin: 06/10/19 06:10 Dose: 1 each Chlorhexidine Gluconate (Hibiclens For Decolonization -) 1 applic TP HS VASYL Last Admin: 06/09/19 21:50 Dose: 1 applic Heparin Sodium (Porcine) (Heparin -) 5,000 unit SQ TID [facility] Last Admin: 06/10/19 05:20 Dose: 5,000 unit Piperacillin Sod/Tazobactam (Sod 3.375 gm/ Dextrose) 50 mls @ 100 mls/hr IVPB Q8H-IV VASYL; Protocol Last Admin: 06/10/19 01:25 Dose: 100 mls/hr Sodium Chloride (Normal Saline -) 500 mls @ 500 mls/hr IV ASDIR STA Stop: 06/10/19 10:03 Insulin Aspart (Novolog Vial Sliding Scale -) 1 vial SQ ACHS [facility]; Protocol Last Admin: 06/10/19 06:24 Dose: 4 units Methylprednisolone Sodium Succinate (Solu-Medrol -) 20 mg IVPUSH BID [facility] Last Admin: 06/09/19 21:47 Dose: 20 mg Non-Formulary Medication (Rotigotine [Neupro]) 1 each TD DAILY [facility] Last Admin: 06/09/19 09:43 Dose: 1 each Pantoprazole Sodium (Protonix Iv) 40 mg IVPUSH DAILY [facility] Last Admin: 06/09/19 09:30 Dose: 40 mg Rivastigmine (Exelon Patch 4.6mg/24 Hours -) 1 each TD DAILY [facility] Last Admin: 06/09/19 09:30 Dose: 1 each GENERAL: Extubated, poorly responsive EYES: non icteric LUNGS: HFOT, scattered bilateral rhonchi HEART: tachycardic, regular rhythm, S1, S2 ABDOMEN: Soft, nontender, nondistended, normoactive bowel sounds EXTREMITIES: 2+ pulses, warm, b/l dependent pedal edema. NEUROLOGICAL: lethargic Laboratory Results - last 24 hr 06/09/19 06/09/19 06/09/19 12:13 16:53 21:55 WBC RBC Hgb Hct MCV MCH MCHC RDW Plt Count MPV Sodium Potassium Chloride Carbon Dioxide Anion Gap BUN Creatinine Est GFR (CKD-EPI)AfAm Est GFR (CKD-EPI)NonAf POC Glucometer 264 172 182 Random Glucose Calcium Phosphorus Magnesium 06/10/19 06/10/19 06/10/19 01:14 05:32 05:32 WBC 11.6 H RBC 3.89 Hgb 8.9 L Hct 28.0 L MCV 71.9 L MCH 22.9 L MCHC 31.9 L RDW 16.8 H Plt Count 330 MPV 9.1 Sodium 139 Potassium 3.9 Chloride 104 Carbon Dioxide 32 Anion Gap 3 L BUN 21.3 H Creatinine 0.8 Est GFR (CKD-EPI)AfAm 80.14 Est GFR (CKD-EPI)NonAf 69.14 POC Glucometer 205 Random Glucose 273 H Calcium 8.0 L Phosphorus 2.8 Magnesium 2.2 06/10/19 06:19 WBC RBC Hgb Hct MCV MCH MCHC RDW Plt Count MPV Sodium Potassium Chloride Carbon Dioxide Anion Gap BUN Creatinine Est GFR (CKD-EPI)AfAm Est GFR (CKD-EPI)NonAf POC Glucometer 252 Random Glucose Calcium Phosphorus Magnesium ASSESSMENT/PLAN: Acute Hypercapneic Respiratory Failure due to suspected Aspiration Parkinson Disease Dementia AMS PNA Leukocytosis Lactic acidosis -Wean HFOT -Follow End tidal CO2 -Pulmonary Toilet -ABX per ID -Enteral feeds -Medrol -Sinemet and Neupro and Rivastigmine patches -Neuro evaluation -VTE prophylaxis -GI prophylaxis -Requires continued ICU monitoring for tenuous overall status Dr Collins
[2019-06-10] MEDS: methylPREDNISolone NA SUCC 40 MG/1 ML VIAL IVPUSH SCH ×2 (10:43→21:20)
[2019-06-10] MEDS: PANTOPRAZOLE SODIUM 40 MG VIAL IVPUSH SCH (10:44)
[2019-06-10] MEDS: RIVASTIGMINE 4.6 MG/24 HOURS TRANSDERMAL PATCH TD SCH (10:44)
[2019-06-10] MEDS: PATIENT'S OWN MEDICATION (NON-FORMULARY) (Rotigotine [Neupro] 1 EACH) TD SCH (10:45)
--- NOTE | 2019-06-10 11:26 | PN ---
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 (short form) - Note 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: s: lethargic, not rousable Current Medications Acetylcysteine (Mucomyst 20 Oral / Inh Use Only*) 600 mg NEB RBID [facility] Last Admin: 06/10/19 08:36 Dose: 600 mg Albuterol Sulfate (Ventolin 0.083% Nebulizer Soln -) 1 amp NEB Q6H PRN PRN Reason: SHORT OF BREATH/WHEEZING Albuterol Sulfate (Ventolin 0.083% Nebulizer Soln -) 1 amp NEB RTID [facility] Last Admin: 06/10/19 08:37 Dose: 1 amp Carbidopa/Levodopa (Sinemet 25/100 -) 1 each PO TID@0700,1200,1900 [facility] Last Admin: 06/10/19 06:10 Dose: 1 each Chlorhexidine Gluconate (Hibiclens For Decolonization -) 1 applic TP HS [facility] Last Admin: 06/09/19 21:50 Dose: 1 applic Heparin Sodium (Porcine) (Heparin -) 5,000 unit SQ TID [facility] Last Admin: 06/10/19 05:20 Dose: 5,000 unit Piperacillin Sod/Tazobactam (Sod 3.375 gm/ Dextrose) 50 mls @ 100 mls/hr IVPB Q8H-IV [facility]; Protocol Last Admin: 06/10/19 10:43 Dose: 100 mls/hr Insulin Aspart (Novolog Vial Sliding Scale -) 1 vial SQ ACHS [facility]; Protocol Last Admin: 06/10/19 06:24 Dose: 4 units Methylprednisolone Sodium Succinate (Solu-Medrol -) 20 mg IVPUSH BID [facility] Last Admin: 06/10/19 10:43 Dose: 20 mg Non-Formulary Medication (Rotigotine [Neupro]) 1 each TD DAILY [facility] Last Admin: 06/10/19 10:45 Dose: 1 each Pantoprazole Sodium (Protonix Iv) 40 mg IVPUSH DAILY [facility] Last Admin: 06/10/19 10:44 Dose: 40 mg Rivastigmine (Exelon Patch 4.6mg/24 Hours -) 1 each TD DAILY [facility] Last Admin: 06/10/19 10:44 Dose: 1 each Vital Signs Period Temp Pulse Resp BP Sys/Campbell Pulse Ox Last 24 Hr 97.9 F-98.7 F 53-82 17-22 90-119/52-68 99-100 Constitutional: Yes: Well Nourished, No Distress, Calm Cardiovascular: Yes: Regular Rate and Rhythm, S1, S2. No: Gallop, Murmur Respiratory: Yes: Regular, CTA Bilaterally (anteriorly). No: Accessory Muscle Use Extremities: No: Cold Edema: No Neurological: No: Alert, Oriented Psychiatric: No: Agitated no jaundice, diaphoresis Assessment/Plan echo 05/2019 nl LV/RV function, impaired relaxation, elevated filling pressures, RV not well visualized, mild to mod MR, mild mod TR CXR: no congestion/effusions (+ atx) tele: NSR, sinus debora/sinus arrhythmia PNA, sepsis, acute respiratory failure 2/2 suspected aspiration - manage per critical care, ID; vent support - intubated after suspected aspiration event, now extubated on high flow O2 - nl LV function on echo HTN: - holding diovan in setting of JOS, bp has been stable DM: - manage per primary dementia, parkinson's: - manage per primary JOS, rhabdo: - renal fxn improved, off IVF
--- NOTE | 2019-06-10 15:26 | PN ---
Physical Exam: SUBJECTIVE: Patient seen and examined NAEON Extubated on 06/09/19. On High-flow NC 30L on 06/10/19 AM. Weaned off high-flow NC by noon. OBJECTIVE: Vital Signs Period Temp Pulse Resp BP Sys/Campbell Pulse Ox Last 24 Hr 97.9 F-98.7 F 53-82 19-22 90-115/52-67 99-100 GENERAL: Lethargic, off sedation > 72hs. No spontaneous motion. Mildly response to painful stimuli HEAD: NC/AT EYES: extraocular movements tracking movement briefly, sclera anicteric, conjunctiva clear. No ptosis. ENT: Ears normal, nares patent, NGT feed NECK: Trachea midline, full range of motion, supple. LUNGS: Breath sounds equal, mildly coarse BS bilaterally. Ventilated HEART: Regular rate and rhythm, S1, S2 without murmur, rub or gallop. ABDOMEN: Soft, nontender, nondistended, normoactive bowel sounds, no guarding, no rebound. EXTREMITIES: 2+ pulses, warm, well-perfused, no edema. BLE with nonpitting edema. DP2+ b/l NEUROLOGICAL: not opening eyes to pain, withdrawing BUE and BLE to painful stimuli. Not responding to qusetioning SKIN: Warm, dry, normal turgor, no rashes or lesions noted Laboratory Results - last 24 hr 06/09/19 06/09/19 06/10/19 16:53 21:55 01:14 WBC RBC Hgb Hct MCV MCH MCHC RDW Plt Count MPV Sodium Potassium Chloride Carbon Dioxide Anion Gap BUN Creatinine Est GFR (CKD-EPI)AfAm Est GFR (CKD-EPI)NonAf POC Glucometer 172 182 205 Random Glucose Calcium Phosphorus Magnesium 06/10/19 06/10/19 06/10/19 05:32 05:32 06:19 WBC 11.6 H RBC 3.89 Hgb 8.9 L Hct 28.0 L MCV 71.9 L MCH 22.9 L MCHC 31.9 L RDW 16.8 H Plt Count 330 MPV 9.1 Sodium 139 Potassium 3.9 Chloride 104 Carbon Dioxide 32 Anion Gap 3 L BUN 21.3 H Creatinine 0.8 Est GFR (CKD-EPI)AfAm 80.14 Est GFR (CKD-EPI)NonAf 69.14 POC Glucometer 252 Random Glucose 273 H Calcium 8.0 L Phosphorus 2.8 Magnesium 2.2 06/10/19 11:55 WBC RBC Hgb Hct MCV MCH MCHC RDW Plt Count MPV Sodium Potassium Chloride Carbon Dioxide Anion Gap BUN Creatinine Est GFR (CKD-EPI)AfAm Est GFR (CKD-EPI)NonAf POC Glucometer 193 Random Glucose Calcium Phosphorus Magnesium Active Medications Generic Name Dose Route Start Last Admin Trade Name Freq PRN Reason Stop Dose Admin Acetylcysteine 600 mg 06/05/19 08:00 06/10/19 08:36 Mucomyst 20 Oral / Inh Use Only* NEB 600 mg RBID [facility] Administration Albuterol Sulfate 1 amp 06/04/19 21:42 Ventolin 0.083% Nebulizer Soln - NEB Q6H PRN SHORT OF BREATH/WHEEZING Albuterol Sulfate 1 amp 06/05/19 08:00 06/10/19 08:37 Ventolin 0.083% Nebulizer Soln - NEB 1 amp RTID [facility] Administration Carbidopa/Levodopa 1 each 06/05/19 07:00 06/10/19 06:10 Sinemet 25/100 - PO 1 each TID@0700,1200,1900 [facility] Administration Chlorhexidine Gluconate 1 applic 06/04/19 22:00 06/09/19 21:50 Hibiclens For Decolonization - TP 1 applic HS [facility] Administration Heparin Sodium (Porcine) 5,000 unit 06/04/19 22:00 06/10/19 05:20 Heparin - SQ 5,000 unit TID [facility] Administration Piperacillin Sod/Tazobactam 50 mls @ 100 mls/hr 06/05/19 02:00 06/10/19 10:43 Sod 3.375 gm/ Dextrose IVPB 100 mls/hr Q8H-IV [facility] Administration Protocol Insulin Aspart 1 vial 06/07/19 22:00 06/10/19 06:24 Novolog Vial Sliding Scale - SQ 4 units ACHS [facility] Administration Protocol Methylprednisolone Sodium Succinate 20 mg 06/08/19 10:00 06/10/19 10:43 Solu-Medrol - IVPUSH 20 mg BID [facility] Administration Non-Formulary Medication 1 each 06/05/19 10:00 06/10/19 10:45 Rotigotine [Neupro] TD 1 each DAILY [facility] Administration Pantoprazole Sodium 40 mg 06/05/19 10:00 06/10/19 10:44 Protonix Iv IVPUSH 40 mg DAILY [facility] Administration Rivastigmine 1 each 06/05/19 10:00 06/10/19 10:44 Exelon Patch 4.6mg/24 Hours - TD 1 each DAILY [facility] Administration ASSESSMENT/PLAN: 79y/o female with Parkinson's and dementia who presents with AMS and cough x 4 days. Pt was hypoxic to the 80s at ED presentation. Intubated for increased work of breathing. Flu negative. Possibly had aspiration PNA. Atelectasis vs infiltrate at Left base. Extubated on 06/09. #acute hypoxic respiratory failure 2/2 multilobar PNA and sepsis -CXR improved post-intubation > CXR(06/08/19): Left base w/ minimal atelectasis, sharp rib angles > flu: negative > Echo: normal EF, impaired relaxation, elevated filling pressures, TR, MR -duonebs TID -solumedrol 20mg IVP BID -zosyn 3.375g Q8H --day#6 -ID following #AMS toxic metabolic encephalopathy vs less likely CVA -CT head negative for acute processes -urine cx negative -blood cx(06/01/19)- Staph coag negative in 1 bottle -blood cx(06/03/19): NGTD -dietary following -speech following #sacral skin tear -surgery consulted- management per note #leukocytosis -from infection vs steroid use -mild improvement continues -continue monitor #JOS, resolved -nephro following -Cardio following --diovan held --BP stable #anemia of chronic disease -microcytosis but low TIBC, unsaturated IBC, and high ferritin #Parkinson's and dementia -continue Sinimet, modified dose for NG tube, @0700, 1200, 1900 -rivostigmine patch -rotigotine patch #mild hypophosphatemia, resolved #lactic acidosis, resolved #transaminitis, improved DVT ppx SQH GI ppx protonix FEN monitor labs NG feeds Visit type - Emergency Visit Emergency Visit: No - New Patient This patient is new to me today: No - Critical Care Critical Care patient: Yes Total Critical Care Time (in minutes): 32 Critical Care Statement: The care of this patient involved high complexity decision making to prevent further life threatening deterioration of the patient 's condition and/or to evaluate & treat vital organ system(s) failure or risk of failure. ATTENDING PHYSICIAN STATEMENT I saw and evaluated the patient. I reviewed the resident's note and discussed the case with the resident. I agree with the resident's findings and plan as documented. SUBJECTIVE: OBJECTIVE: ASSESSMENT AND PLAN:
--- NOTE | 2019-06-10 18:15 | PN ---
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, Physician History of Present Illness: Pt seen and examined at bedside. She is now extubated. - Current Medication List Current Medications: Active Medications Acetylcysteine (Mucomyst 20 Oral / Inh Use Only*) 600 mg NEB RBID [facility] Last Admin: 06/10/19 08:36 Dose: 600 mg Albuterol Sulfate (Ventolin 0.083% Nebulizer Soln -) 1 amp NEB Q6H PRN PRN Reason: SHORT OF BREATH/WHEEZING Albuterol Sulfate (Ventolin 0.083% Nebulizer Soln -) 1 amp NEB RTID [facility] Last Admin: 06/10/19 12:30 Dose: 1 amp Carbidopa/Levodopa (Sinemet 25/100 -) 1 each PO TID@0700,1200,1900 [facility] Last Admin: 06/10/19 18:08 Dose: 1 each Chlorhexidine Gluconate (Hibiclens For Decolonization -) 1 applic TP HS [facility] Last Admin: 06/09/19 21:50 Dose: 1 applic Heparin Sodium (Porcine) (Heparin -) 5,000 unit SQ TID [facility] Last Admin: 06/10/19 14:45 Dose: 5,000 unit Piperacillin Sod/Tazobactam (Sod 3.375 gm/ Dextrose) 50 mls @ 100 mls/hr IVPB Q8H-IV [facility]; Protocol Last Admin: 06/10/19 17:46 Dose: 100 mls/hr Insulin Aspart (Novolog Vial Sliding Scale -) 1 vial SQ ACHS [facility]; Protocol Last Admin: 06/10/19 16:47 Dose: 5 units Methylprednisolone Sodium Succinate (Solu-Medrol -) 20 mg IVPUSH BID [facility] Last Admin: 06/10/19 10:43 Dose: 20 mg Non-Formulary Medication (Rotigotine [Neupro]) 1 each TD DAILY [facility] Last Admin: 06/10/19 10:45 Dose: 1 each Pantoprazole Sodium (Protonix Iv) 40 mg IVPUSH DAILY [facility] Last Admin: 06/10/19 10:44 Dose: 40 mg Rivastigmine (Exelon Patch 4.6mg/24 Hours -) 1 each TD DAILY [facility] Last Admin: 06/10/19 10:44 Dose: 1 each - Objective Vital Signs: Vital Signs Temperature 98.7 F 06/10/19 10:12 Pulse Rate 66 06/10/19 11:57 Respiratory Rate 22 H 06/10/19 09:00 Blood Pressure 99/58 L 06/10/19 06:00 O2 Sat by Pulse Oximetry (%) 99 06/10/19 11:57 Constitutional: Yes: Calm Eyes: Yes: Conjunctiva Clear HENT: Yes: Atraumatic Cardiovascular: Yes: S1, S2 Respiratory: Yes: On Nasal O2 Gastrointestinal: Yes: Soft Genitourinary: Yes: Ríos Present Musculoskeletal: Yes: WNL Extremities: Yes: WNL Edema: No Neurological: Yes: Lethargy Labs: CBC, BMP 06/10/19 05:32 06/10/19 05:32 INR, PTT INR 1.16 (0.83-1.09) H 06/01/19 09:40 Problem List - Problems (1) Rhabdomyolysis Code(s): M62.82 - RHABDOMYOLYSIS (2) JOS (acute kidney injury) Code(s): N17.9 - ACUTE KIDNEY FAILURE, UNSPECIFIED (3) Pneumonia Code(s): J18.9 - PNEUMONIA, UNSPECIFIED ORGANISM (4) Sepsis Code(s): A41.9 - SEPSIS, UNSPECIFIED ORGANISM Assessment/Plan Current Medications Generic Name Dose Route Start Last Admin Trade Name Freq PRN Reason Stop Dose Admin Acetylcysteine 600 mg 06/05/19 08:00 06/10/19 08:36 Mucomyst 20 Oral / Inh Use Only* NEB 600 mg RBID [facility] Administration Albuterol Sulfate 1 amp 06/04/19 21:42 Ventolin 0.083% Nebulizer Soln - NEB Q6H PRN SHORT OF BREATH/WHEEZING Albuterol Sulfate 1 amp 06/05/19 08:00 06/10/19 12:30 Ventolin 0.083% Nebulizer Soln - NEB 1 amp RTID [facility] Administration Carbidopa/Levodopa 1 each 06/05/19 07:00 06/10/19 18:08 Sinemet 25/100 - PO 1 each TID@0700,1200,1900 [facility] Administration Chlorhexidine Gluconate 1 applic 06/04/19 22:00 06/09/19 21:50 Hibiclens For Decolonization - TP 1 applic HS [facility] Administration Heparin Sodium (Porcine) 5,000 unit 06/04/19 22:00 06/10/19 14:45 Heparin - SQ 5,000 unit TID [facility] Administration Piperacillin Sod/Tazobactam 50 mls @ 100 mls/hr 06/05/19 02:00 06/10/19 17:46 Sod 3.375 gm/ Dextrose IVPB 100 mls/hr Q8H-IV [facility] Administration Protocol Insulin Aspart 1 vial 06/07/19 22:00 06/10/19 16:47 Novolog Vial Sliding Scale - SQ 5 units ACHS [facility] Administration Protocol Methylprednisolone Sodium Succinate 20 mg 06/08/19 10:00 06/10/19 10:43 Solu-Medrol - IVPUSH 20 mg BID [facility] Administration Non-Formulary Medication 1 each 06/05/19 10:00 06/10/19 10:45 Rotigotine [Neupro] TD 1 each DAILY [facility] Administration Pantoprazole Sodium 40 mg 06/05/19 10:00 06/10/19 10:44 Protonix Iv IVPUSH 40 mg DAILY [facility] Administration Rivastigmine 1 each 06/05/19 10:00 06/10/19 10:44 Exelon Patch 4.6mg/24 Hours - TD 1 each DAILY [facility] Administration Impression 1. JOS 2. sepsis 3. PNA 4. dementia 5. parkinsons 6. lactic acidosis 7. rhabdo 8. DM 9. HTN 10. resp failure Plan - renal function is stable - pt tolerated feeds - monitor pulse ox - lasix prn
[2019-06-10] MEDS: CHLORHEXIDINE GLUCONATE 4% CLEANSER FOR DECOLONIZATION TP SCH (21:20)
[2019-06-11] MEDS: PIPERACILLIN/TAZOB 3.375 GM 3.375 GM in DEXTROSE 5%-WATER - 50 ML IVPB SCH ×3 (02:19→17:28)
[2019-06-11] MEDS: HEPARIN NA (PORCINE) 5,000 UNITS/ML 1ML VIAL SQ SCH ×3 (05:55→23:15)
[2019-06-11] MEDS: INSULIN SLIDING SCALE (NOVOLOG) 1 VIAL SQ SCH ×4 (06:00→23:15)
[2019-06-11] MEDS: CARBIDOPA/LEVODOPA 25/100 TABLET (FP) PO SCH ×2 (06:00→11:13)
[2019-06-11 06:35] LABS: HEMATOCRIT 30.7 % (32.4-45.2); HEMOGLOBIN 9.7 GM/dL (10.7-15.3); MCH 22.8 pg (25.7-33.7); MCHC 31.7 g/dl (32.0-36.0); MEAN CELL VOLUME 71.9 fl (80-96); PLATELET COUNT 383 K/MM3 (134-434); RBC 4.27 M/mm3 (3.60-5.2); RDW 17.1 % (11.6-15.6); WHITE BLOOD COUNT 14.6 K/mm3 (4.0-10.0)
--- NOTE | 2019-06-11 07:17 | PN ---
Physical Exam: SUBJECTIVE: Patient seen and examined No events overnight. Patient weaned off high flow to 4L NC yesterday, continues to sat 100%. Continues to be somnolent. OBJECTIVE: Vital Signs Period Temp Pulse Resp BP Sys/Campbell Pulse Ox Last 24 Hr 98.2 F-98.7 F 60-82 18-26 95-130/54-75 99-100 GENERAL: The patient is somnolent and arousable only to painful stimuli, in no acute distress, on 4L NC. HEAD: Normal with no signs of trauma. EYES: sclera anicteric, conjunctiva clear. No ptosis. ENT: Ears normal, nares patent, oropharynx clear without exudates, moist mucous membranes. LUNGS: Poor inspiratory effort, otherwise CTA b/l. HEART: Regular rate and rhythm. ABDOMEN: Soft, nontender, nondistended, normoactive bowel sounds. EXTREMITIES: 2+ pulses, warm, well-perfused, no edema. NEUROLOGICAL: Unable to assess cranial nerves, patient somnolent. PSYCH: Unable to assess. SKIN: Warm, dry, normal turgor, no rashes or lesions noted Laboratory Results - last 24 hr 06/10/19 06/10/19 06/10/19 11:55 16:43 21:22 WBC RBC Hgb Hct MCV MCH MCHC RDW Plt Count MPV POC Glucometer 193 314 277 06/11/19 06/11/19 05:37 05:45 WBC 14.6 H RBC 4.27 Hgb 9.7 L Hct 30.7 L MCV 71.9 L MCH 22.8 L MCHC 31.7 L RDW 17.1 H Plt Count 383 MPV 9.0 POC Glucometer 310 Active Medications Generic Name Dose Route Start Last Admin Trade Name Freq PRN Reason Stop Dose Admin Acetylcysteine 600 mg 06/05/19 08:00 06/10/19 20:55 Mucomyst 20 Oral / Inh Use Only* NEB 600 mg RBID [facility] Administration Albuterol Sulfate 1 amp 06/04/19 21:42 Ventolin 0.083% Nebulizer Soln - NEB Q6H PRN SHORT OF BREATH/WHEEZING Albuterol Sulfate 1 amp 06/05/19 08:00 06/10/19 20:55 Ventolin 0.083% Nebulizer Soln - NEB 1 amp RTID [facility] Administration Carbidopa/Levodopa 1 each 06/05/19 07:00 06/11/19 06:00 Sinemet 25/100 - PO 1 each TID@0700,1200,1900 [facility] Administration Chlorhexidine Gluconate 1 applic 06/04/19 22:00 06/10/19 21:20 Hibiclens For Decolonization - TP 1 applic HS [facility] Administration Heparin Sodium (Porcine) 5,000 unit 06/04/19 22:00 06/11/19 05:55 Heparin - SQ 5,000 unit TID [facility] Administration Piperacillin Sod/Tazobactam 50 mls @ 100 mls/hr 06/05/19 02:00 06/11/19 02:19 Sod 3.375 gm/ Dextrose IVPB 100 mls/hr Q8H-IV [facility] Administration Protocol Insulin Aspart 1 vial 06/07/19 22:00 06/11/19 06:00 Novolog Vial Sliding Scale - SQ 5 units ACHS [facility] Administration Protocol Methylprednisolone Sodium Succinate 20 mg 06/08/19 10:00 06/10/19 21:20 Solu-Medrol - IVPUSH 20 mg BID [facility] Administration Non-Formulary Medication 1 each 06/05/19 10:00 06/10/19 10:45 Rotigotine [Neupro] TD 1 each DAILY [facility] Administration Pantoprazole Sodium 40 mg 06/05/19 10:00 06/10/19 10:44 Protonix Iv IVPUSH 40 mg DAILY [facility] Administration Rivastigmine 1 each 06/05/19 10:00 06/10/19 10:44 Exelon Patch 4.6mg/24 Hours - TD 1 each DAILY [facility] Administration ASSESSMENT/PLAN: 79 F PMH of Parkinson's dx, dementia, AMS, admitted to [facility] for PNA, was transferred to ICU for labored breathing, patient subsequently had respiratory failure and had required intubation. Now extubated, weaned from high flow oxygen to 4L NC, satting 100%. Still has not woken up. Neuro - Hx of Parkinson's and dementia - Patient has not been at baseline mentation, has not yet woken up - Pt was restarted on home rivostigimine and rotigotone - Continue sinamet - CT head negative, but with continuing somnolence, planned for another CT head today, 06/11/2019 - Extubated, off sedation Pulm - Acute hypercapnic hypoxic respiratory failure 2/2 multilobar PNA, initially intubated, now on high flow oxygen 30/30 - Chest X-Ray stable - Flu negative - Duonebs - Methylprednisone 20 BID - Zoysn - Azithromax Cardio - Hx of HTN - Patient had episodes of bradycardia which were attributed to parkinsonian medications, currently normal rhythm. - Echo done on 05/2019 shows normal LV/RV, impaired relaxation, elevated filling pressures, RV not well visualized, mild to moderate MR, mild to moderate TR. - BP stable, holding diovan - Cardiology consulted, appreciate recs GI - Currently stable, tube feeds at low rate, was stopped for pre-extubation and for a few hours after extubation but now continuing. ID - Leukocytosis, lactic acidosis on presentation - Lactic acid resolved - Leukocytosis present - Continue Zoysn - Possible aspiration PNA or pneumonitis Renal - JOS resolved - IV fluids stopped - Nephrology consulted, appreciate recs Heme - Anemia of chronic disease - Will continue to follow DVT: - Heparin SQ GI PPX: - Protonix F: No fluids E: Monitor CMP N: Tube feeds Dispo: Currently under ICU monitoring, weaned off high flow oxygen yesterday, will monitor on RA today. Duc Ríos today. Visit type - Emergency Visit Emergency Visit: Yes ED Registration Date: 06/01/19 Care time: The patient presented to the Emergency Department on the above date and was hospitalized for further evaluation of their emergent condition. - New Patient This patient is new to me today: No - Critical Care Critical Care patient: Yes Total Critical Care Time (in minutes): 20 ATTENDING PHYSICIAN STATEMENT I saw and evaluated the patient. I reviewed the resident's note and discussed the case with the resident. I agree with the resident's findings and plan as documented. SUBJECTIVE: OBJECTIVE: ASSESSMENT AND PLAN:
[2019-06-11 08:00] LABS: BLOOD UREA NITROGEN 20.8 mg/dL (7-18); CALCIUM 8.1 mg/dL (8.5-10.1); CREATININE 0.9 mg/dL (0.55-1.3); MAGNESIUM 2.3 mg/dL (1.8-2.4); PHOSPHOROUS 2.6 mg/dL (2.5-4.9); POTASSIUM 4.5 mmol/L (3.5-5.1)
[2019-06-11] MEDS: ACETYLCYSTEINE 20% 200MG/ML 4 ML VIAL *FOR ORAL / INH USE ONLY NEB SCH (08:21)
[2019-06-11] MEDS: ALBUTEROL SO4 0.083% IH SOL 2.5 MG/3 ML VIAL.NEB. NEB SCH ×2 (08:21→14:30)
--- NOTE | 2019-06-11 08:38 | CONSULT ---
Consult - text type - Consultation Consultation Note: Neurology CHIEF COMPLAINT: AMS PCP: None HISTORY OF PRESENT ILLNESS: Ms. Prescott is an 79 year old female with PMH of Parkinson Disease and dementia who was BIBEMS with AMS x4 days at time of admission. Daughter was at bedside and that time and provided history. Pt lives at home (no DISEASE INTERVENTION SPECIALIST or VNS) with daughter as primary supply chain program manager. At baseline she is non-ambulatory and mental status changes from day to day (some days she is alert and oriented, can speak sentences, other days she does not speak at all). Pt has had a productive cough of yellow sputum for 4 days before day of admission and has become increasingly confused and somnolent. Decreased appetite, unable to eat or drink anything. On day of admission, she was not responding at all and had a low grade fever. Daughter stated that pt has not complained of any symptoms (chest pain, abd pain , SOB, urinary complaints). On arrival to ED, pt was hypoxic in the 80s. Patient consulted for altered mental status. Ct of head reviewed and showed no evidence of a focal intracranial lesion or hemorrhage completed on 06/01 at the time of admission. Patient currently remains in ICU under critical care monitoring and I discussed with the nurse this morning. The patient has some increase in mental status when interacting with family but still remainslethargic.. Mental status may be limited due to underlying infection and recently was intubated and extubated. I would like to repeat noncontrast head CT to confirm no new structural abnormalities. Recent Travel: denies PAST MEDICAL HISTORY: As per HPI PAST SURGICAL HISTORY: BL knee replacement Family History: HTN Social History: Smoking: denies Alcohol: denies Drugs: denies REVIEW OF SYSTEMS CONSTITUTIONAL: fever Absent: chills, diaphoresis, generalized weakness, malaise, loss of appetite, weight change HEENT: Absent: rhinorrhea, nasal congestion, throat pain, throat swelling, difficulty swallowing, mouth swelling, ear pain, eye pain, visual changes CARDIOVASCULAR: Absent: chest pain, syncope, palpitations, irregular heart rate, lightheadedness , peripheral edema RESPIRATORY: cough Absent: shortness of breath, dyspnea with exertion, orthopnea, wheezing, stridor , hemoptysis GASTROINTESTINAL: Absent: abdominal pain, abdominal distension, nausea, vomiting, diarrhea, constipation, melena, hematochezia GENITOURINARY: Absent: dysuria, frequency, urgency, hesitancy, hematuria, flank pain, genital pain MUSCULOSKELETAL: Absent: myalgia, arthralgia, joint swelling, back pain, neck pain SKIN: Absent: rash, itching, pallor HEMATOLOGIC/IMMUNOLOGIC: Absent: easy bleeding, easy bruising, lymphadenopathy, frequent infections ENDOCRINE: Absent: unexplained weight gain, unexplained weight loss, heat intolerance, cold intolerance NEUROLOGIC: mental status changes Absent: headache, focal weakness or paresthesias, dizziness, unsteady gait, seizure, bladder or bowel incontinence PSYCHIATRIC: Absent: anxiety, depression, suicidal or homicidal ideation, hallucinations. Allergies No Known Allergies Allergy (Verified 05/31/19 23:41) HOME MEDICATIONS: Home Medications Medication Instructions Recorded Ca/D3/Mag Ox/Zinc/Studio Producer/Ketan/Bor 1 each PO HS 04/13/18 [Calcium 600-D3 Plus Caplet] Carbidopa/Levodopa [Carbidopa-Levo 1 each PO TID 04/13/18 ER 50-200 Tab] Aspirin 81 mg PO DAILY 06/01/19 Melatonin 5 mg PO HS 06/01/19 Olanzapine [Zyprexa -] 7.5 mg PO DAILY 06/01/19 Omeprazole 20 mg PO DAILY 06/01/19 Rivastigmine [Exelon Patch 1 each TD DAILY 06/01/19 4.6MG/24 Hours] Rotigotine [Neupro] 1 each TD DAILY 06/01/19 Active Medications Acetylcysteine (Mucomyst 20 Oral / Inh Use Only*) 600 mg NEB RBID [facility] Last Admin: 06/11/19 08:21 Dose: 600 mg Albuterol Sulfate (Ventolin 0.083% Nebulizer Soln -) 1 amp NEB Q6H PRN PRN Reason: SHORT OF BREATH/WHEEZING Albuterol Sulfate (Ventolin 0.083% Nebulizer Soln -) 1 amp NEB RTID [facility] Last Admin: 06/11/19 08:21 Dose: 1 amp Carbidopa/Levodopa (Sinemet 25/100 -) 1 each PO TID@0700,1200,1900 [facility] Last Admin: 06/11/19 06:00 Dose: 1 each Chlorhexidine Gluconate (Hibiclens For Decolonization -) 1 applic TP HS [facility] Last Admin: 06/10/19 21:20 Dose: 1 applic Heparin Sodium (Porcine) (Heparin -) 5,000 unit SQ TID [facility] Last Admin: 06/11/19 05:55 Dose: 5,000 unit Piperacillin Sod/Tazobactam (Sod 3.375 gm/ Dextrose) 50 mls @ 100 mls/hr IVPB Q8H-IV [facility]; Protocol Last Admin: 06/11/19 02:19 Dose: 100 mls/hr Insulin Aspart (Novolog Vial Sliding Scale -) 1 vial SQ ACHS [facility]; Protocol Last Admin: 06/11/19 06:00 Dose: 5 units Methylprednisolone Sodium Succinate (Solu-Medrol -) 20 mg IVPUSH BID [facility] Last Admin: 06/10/19 21:20 Dose: 20 mg Non-Formulary Medication (Rotigotine [Neupro]) 1 each TD DAILY [facility] Last Admin: 06/10/19 10:45 Dose: 1 each Pantoprazole Sodium (Protonix Iv) 40 mg IVPUSH DAILY [facility] Last Admin: 06/10/19 10:44 Dose: 40 mg Rivastigmine (Exelon Patch 4.6mg/24 Hours -) 1 each TD DAILY [facility] Last Admin: 06/10/19 10:44 Dose: 1 each PHYSICAL EXAMINATION Vital Signs Period Temp Pulse Resp BP Sys/Campbell Pulse Ox Last 24 Hr 98.2 F-98.7 F 60-79 18-26 95-130/54-75 99-100 GENERAL: Somnolent, slightly responsive to sternal rub. HEAD: Normal with no signs of trauma. EYES: Pupils equal, round and reactive to light, extraocular movements intact, sclera anicteric, conjunctiva clear. No lid lag. EARS, NOSE, THROAT: Ears normal, nares patent, oropharynx clear without exudates. Dry mucous membranes. NECK: Normal range of motion, supple without lymphadenopathy, JVD, or masses. LUNGS: Inspiratory and expiratory wheezes throughout, accessory muscle use. HEART: Regular rate and rhythm, normal S1 and S2 without murmur, rub or gallop. ABDOMEN: Soft, nontender, not distended, normoactive bowel sounds, no guarding, no rebound, no masses. No hepatomegaly or splenomegaly. MUSCULOSKELETAL: Normal range of motion at all joints. No bony deformities or tenderness. No CVA tenderness. UPPER EXTREMITIES: 2+ pulses, warm, well-perfused. No cyanosis. No clubbing. No peripheral edema. LOWER EXTREMITIES: 2+ pulses, warm, well-perfused. No calf tenderness. No peripheral edema. NEUROLOGICAL: Unable to assess /2 mental status. PSYCHIATRIC: Cooperative. Good eye contact. Appropriate mood and affect. SKIN: Warm, dry, normal turgor, normal capillary refill. Sacral decubitus ulcer with sloughing skin and erythema. CBCD WBC 14.6 K/mm3 (4.0-10.0) H 06/11/19 05:45 RBC 4.27 M/mm3 (3.60-5.2) 06/11/19 05:45 Hgb 9.7 GM/dL (10.7-15.3) L 06/11/19 05:45 Hct 30.7 % (32.4-45.2) L 06/11/19 05:45 MCV 71.9 fl (80-96) L 06/11/19 05:45 MCHC 31.7 g/dl (32.0-36.0) L 06/11/19 05:45 RDW 17.1 % (11.6-15.6) H 06/11/19 05:45 Plt Count 383 K/MM3 (134-434) 06/11/19 05:45 MPV 9.0 fl (7.5-11.1) 06/11/19 05:45 CMP Sodium 137 mmol/L (136-145) 06/11/19 05:45 Potassium 4.5 mmol/L (3.5-5.1) 06/11/19 05:45 Chloride 102 mmol/L (98-107) 06/11/19 05:45 Carbon Dioxide 29 mmol/L (21-32) 06/11/19 05:45 Anion Gap 5 MMOL/L (8-16) L 06/11/19 05:45 BUN 20.8 mg/dL (7-18) H 06/11/19 05:45 Creatinine 0.9 mg/dL (0.55-1.3) 06/11/19 05:45 Random Glucose 334 mg/dL (74-106) H 06/11/19 05:45 Calcium 8.1 mg/dL (8.5-10.1) L 06/11/19 05:45 Total Bilirubin 0.3 mg/dL (0.2-1) 06/09/19 05:38 AST 21 U/L (15-37) 06/09/19 05:38 ALT 40 U/L (13-61) 06/09/19 05:38 Alkaline Phosphatase 74 U/L (45-117) 06/09/19 05:38 Total Protein 6.2 g/dl (6.4-8.2) L 06/09/19 05:38 Albumin 2.3 g/dl (3.4-5.0) L 06/09/19 05:38 CARDIAC ENZYMES Creatine Kinase 281 U/L (26-192) H 06/04/19 06:30 Troponin I < 0.02 ng/ml (0.00-0.05) 06/01/19 04:07 ASSESSMENT/PLAN: Ms. Prescott is an 79 year old female with PMH of Parkinson Disease and dementia who was BIBEMS with AMS x4 days at time of admission. Daughter was at bedside and that time and provided history. Pt lives at home (no DISEASE INTERVENTION SPECIALIST or VNS) with daughter as primary supply chain program manager. At baseline she is non-ambulatory and mental status changes from day to day (some days she is alert and oriented, can speak sentences, other days she does not speak at all). Pt has had a productive cough of yellow sputum for 4 days before day of admission and has become increasingly confused and somnolent. Decreased appetite, unable to eat or drink anything. On day of admission, she was not responding at all and had a low grade fever. Daughter stated that pt has not complained of any symptoms (chest pain, abd pain , SOB, urinary complaints). On arrival to ED, pt was hypoxic in the 80s. Patient consulted for altered mental status. Ct of head reviewed and showed no evidence of a focal intracranial lesion or hemorrhage completed on 06/01 at the time of admission. Patient currently remains in ICU under critical care monitoring and I discussed with the nurse this morning. The patient has some increase in mental status when interacting with family but still remainslethargic.. Mental status may be limited due to underlying infection and recently was intubated and extubated. I would like to repeat noncontrast head CT to confirm no new structural abnormalities. Requires further medical management and optimization,, continued elevation in white count indicating possible persistent infectious etiology. Remains on Zosyn, in agreement with antibiotics for furthere treatment. Maintain adequate hydration, frequent orientation whenever able. Critical care time 40 mins.
--- NOTE | 2019-06-11 10:24 | PN ---
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, TECHNICAL SERVICE ENGINEER - Note 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: Selected Entries 06/01/19 06/01/19 06/01/19 06:00 10:00 14:00 Lunch Supper Temperature 97.5 F L 97.9 F 98.0 F 06/01/19 06/01/19 06/01/19 17:58 22:00 22:45 Lunch Supper Temperature 97.6 F 98.3 F 98.0 F 06/01/19 06/02/19 06/02/19 23:07 02:13 09:23 Lunch Supper NPO Temperature 98.2 F 98.5 F 06/11/19 06/11/19 06/11/19 02:00 06:00 10:00 Lunch Supper Temperature 98.3 F 98.3 F 98.5 F 06/11/19 10:42 Lunch NPO Supper Temperature Laboratory Tests 06/01/19 06/02/19 06/07/19 00:18 05:47 05:30 WBC 17.9 H 18.0 H 12.2 H 06/08/19 06/09/19 06/10/19 05:55 05:38 05:32 WBC 13.9 H 12.7 H 11.6 H 06/11/19 05:45 WBC 14.6 H Pt was intubated, now remains extubated,progressed from high flow to 4L NC , continues to sat 100%. Continues to be somnolent, with some response to sternal rub. Per medical team, family wants "everything done". Consider GT, with opportunity for pleasure feedings in future if pt improves.
[2019-06-11] MEDS ORDERED: PIPERACILLIN/TAZOBACTAM 3.375 GM VIAL IVPB ONE ×2 (10:54→17:17)
[2019-06-11] MEDS ORDERED: DEXTROSE 5%-WATER - 50 ML IVPB ONE ×2 (10:54→17:17)
[2019-06-11] MEDS: methylPREDNISolone NA SUCC 40 MG/1 ML VIAL IVPUSH SCH ×2 (10:55→23:15)
[2019-06-11] MEDS: RIVASTIGMINE 4.6 MG/24 HOURS TRANSDERMAL PATCH TD SCH (10:55)
[2019-06-11] MEDS: PATIENT'S OWN MEDICATION (NON-FORMULARY) (Rotigotine [Neupro] 1 EACH) TD SCH (10:55)
[2019-06-11] MEDS: PANTOPRAZOLE SODIUM 40 MG VIAL IVPUSH SCH (10:55)
--- NOTE | 2019-06-11 11:27 | PN ---
Teaching Attending Note Name of Resident: Yumi Snow ATTENDING PHYSICIAN STATEMENT I saw and evaluated the patient. I reviewed the resident's note and discussed the case with the resident. I agree with the resident's findings and plan as documented. SUBJECTIVE: Patient seen and examined in the ICU. Remains extubated. Lethargic, grimaces and somewhat localized to noxious stimuli. Breathing is non-labored. No pressors. Intake & Output 06/08/19 06/09/19 06/10/19 06/11/19 23:59 23:59 23:59 23:59 Intake Total 1391 1581 1780 575 Output Total 1300 1000 1900 350 Balance 91 581 -120 225 Weight 137 lb 11.2 oz 137 lb 11.2 oz 145 lb 8.081 oz 135 lb 8 oz Last Vital Signs Temp Pulse Resp BP Pulse Ox 98.5 F 74 22 H 98/53 L 100 06/11/19 10:00 06/11/19 10:00 06/11/19 10:00 06/11/19 10:00 06/11/19 09:00 Active Medications Acetylcysteine (Mucomyst 20 Oral / Inh Use Only*) 600 mg NEB RBID [facility] Last Admin: 06/11/19 08:21 Dose: 600 mg Albuterol Sulfate (Ventolin 0.083% Nebulizer Soln -) 1 amp NEB Q6H PRN PRN Reason: SHORT OF BREATH/WHEEZING Albuterol Sulfate (Ventolin 0.083% Nebulizer Soln -) 1 amp NEB RTID [facility] Last Admin: 06/11/19 08:21 Dose: 1 amp Carbidopa/Levodopa (Sinemet 25/100 -) 1 each PO TID@0700,1200,1900 [facility] Last Admin: 06/11/19 11:13 Dose: 1 each Chlorhexidine Gluconate (Hibiclens For Decolonization -) 1 applic TP HS [facility] Last Admin: 06/10/19 21:20 Dose: 1 applic Heparin Sodium (Porcine) (Heparin -) 5,000 unit SQ TID [facility] Last Admin: 06/11/19 05:55 Dose: 5,000 unit Piperacillin Sod/Tazobactam (Sod 3.375 gm/ Dextrose) 50 mls @ 100 mls/hr IVPB Q8H-IV [facility]; Protocol Last Admin: 01/16/20 10:55 Dose: 100 mls/hr Insulin Aspart (Novolog Vial Sliding Scale -) 1 vial SQ ACHS [facility]; Protocol Last Admin: 06/11/19 06:00 Dose: 5 units Methylprednisolone Sodium Succinate (Solu-Medrol -) 20 mg IVPUSH BID [facility] Last Admin: 06/11/19 10:55 Dose: 20 mg Non-Formulary Medication (Rotigotine [Neupro]) 1 each TD DAILY [facility] Last Admin: 06/11/19 10:55 Dose: 1 each Pantoprazole Sodium (Protonix Iv) 40 mg IVPUSH DAILY [facility] Last Admin: 06/11/19 10:55 Dose: 40 mg Rivastigmine (Exelon Patch 4.6mg/24 Hours -) 1 each TD DAILY [facility] Last Admin: 06/11/19 10:55 Dose: 1 each GENERAL: Lethargic, grimaces to noxious stimuli EYES: non icteric LUNGS: HFOT, scattered bilateral rhonchi HEART: tachycardic, regular rhythm, S1, S2 ABDOMEN: Soft, nontender, nondistended, normoactive bowel sounds EXTREMITIES: 2+ pulses, warm, b/l dependent pedal edema. NEUROLOGICAL: lethargic Laboratory Results - last 24 hr 06/10/19 06/10/19 06/10/19 11:55 16:43 21:22 WBC RBC Hgb Hct MCV MCH MCHC RDW Plt Count MPV Sodium Potassium Chloride Carbon Dioxide Anion Gap BUN Creatinine Est GFR (CKD-EPI)AfAm Est GFR (CKD-EPI)NonAf POC Glucometer 193 314 277 Random Glucose Calcium Phosphorus Magnesium 06/11/19 06/11/19 06/11/19 05:37 05:45 05:45 WBC 14.6 H RBC 4.27 Hgb 9.7 L Hct 30.7 L MCV 71.9 L MCH 22.8 L MCHC 31.7 L RDW 17.1 H Plt Count 383 MPV 9.0 Sodium 137 Potassium 4.5 Chloride 102 Carbon Dioxide 29 Anion Gap 5 L BUN 20.8 H Creatinine 0.9 Est GFR (CKD-EPI)AfAm 69.50 Est GFR (CKD-EPI)NonAf 59.96 POC Glucometer 310 Random Glucose 334 H Calcium 8.1 L Phosphorus 2.6 Magnesium 2.3 ASSESSMENT/PLAN: Acute Hypercapneic Respiratory Failure due to suspected Aspiration Parkinson Disease Dementia AMS PNA Leukocytosis Lactic acidosis -NC O2 as tolerated -End Tidal CO2 -Pulmonary Toilet -ABX per ID -Wean Medrol -Sinemet and Neupro and Rivastigmine patches -Neuro evaluation noted -VTE prophylaxis -GI prophylaxis -4W / 4S monitoring Dr Collins
--- NOTE | 2019-06-11 15:20 | PN ---
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, Physician History of Present Illness: Pt seen and examined at bedside. She remains in the ICU. She remains extubated. - Current Medication List Current Medications: Active Medications Acetylcysteine (Mucomyst 20 Oral / Inh Use Only*) 600 mg NEB RBID [facility] Last Admin: 06/11/19 08:21 Dose: 600 mg Albuterol Sulfate (Ventolin 0.083% Nebulizer Soln -) 1 amp NEB Q6H PRN PRN Reason: SHORT OF BREATH/WHEEZING Albuterol Sulfate (Ventolin 0.083% Nebulizer Soln -) 1 amp NEB RTID [facility] Last Admin: 06/11/19 08:21 Dose: 1 amp Carbidopa/Levodopa (Sinemet 25/100 -) 1 each PO TID@0700,1200,1900 [facility] Last Admin: 06/11/19 11:13 Dose: 1 each Chlorhexidine Gluconate (Hibiclens For Decolonization -) 1 applic TP HS [facility] Last Admin: 06/10/19 21:20 Dose: 1 applic Heparin Sodium (Porcine) (Heparin -) 5,000 unit SQ TID [facility] Last Admin: 06/11/19 14:17 Dose: 5,000 unit Piperacillin Sod/Tazobactam (Sod 3.375 gm/ Dextrose) 50 mls @ 100 mls/hr IVPB Q8H-IV [facility]; Protocol Last Admin: 06/11/19 10:55 Dose: 100 mls/hr Insulin Aspart (Novolog Vial Sliding Scale -) 1 vial SQ ACHS [facility]; Protocol Last Admin: 06/11/19 11:42 Dose: 4 units Methylprednisolone Sodium Succinate (Solu-Medrol -) 20 mg IVPUSH BID [facility] Last Admin: 06/11/19 10:55 Dose: 20 mg Non-Formulary Medication (Rotigotine [Neupro]) 1 each TD DAILY [facility] Last Admin: 06/11/19 10:55 Dose: 1 each Pantoprazole Sodium (Protonix Iv) 40 mg IVPUSH DAILY [facility] Last Admin: 06/11/19 10:55 Dose: 40 mg Rivastigmine (Exelon Patch 4.6mg/24 Hours -) 1 each TD DAILY [facility] Last Admin: 06/11/19 10:55 Dose: 1 each - Objective Vital Signs: Vital Signs Temperature 98.5 F 06/11/19 10:00 Pulse Rate 76 06/11/19 12:00 Respiratory Rate 22 H 06/11/19 12:00 Blood Pressure 103/60 06/11/19 12:00 O2 Sat by Pulse Oximetry (%) 100 06/11/19 09:00 Constitutional: Yes: Calm Eyes: Yes: Conjunctiva Clear HENT: Yes: Atraumatic Neck: Yes: Supple Cardiovascular: Yes: S1, S2 Respiratory: Yes: On Nasal O2 Gastrointestinal: Yes: Soft Genitourinary: Yes: Incontinence Musculoskeletal: Yes: Muscle Weakness Edema: No Neurological: Yes: Lethargy Labs: CBC, BMP 06/11/19 05:45 06/11/19 05:45 INR, PTT INR 1.16 (0.83-1.09) H 06/01/19 09:40 Problem List - Problems (1) Rhabdomyolysis Code(s): M62.82 - RHABDOMYOLYSIS (2) JOS (acute kidney injury) Code(s): N17.9 - ACUTE KIDNEY FAILURE, UNSPECIFIED (3) Pneumonia Code(s): J18.9 - PNEUMONIA, UNSPECIFIED ORGANISM (4) Sepsis Code(s): A41.9 - SEPSIS, UNSPECIFIED ORGANISM Assessment/Plan Current Medications Generic Name Dose Route Start Last Admin Trade Name Freq PRN Reason Stop Dose Admin Acetylcysteine 600 mg 06/05/19 08:00 06/11/19 08:21 Mucomyst 20 Oral / Inh Use Only* NEB 600 mg RBID [facility] Administration Albuterol Sulfate 1 amp 06/04/19 21:42 Ventolin 0.083% Nebulizer Soln - NEB Q6H PRN SHORT OF BREATH/WHEEZING Albuterol Sulfate 1 amp 06/05/19 08:00 06/11/19 08:21 Ventolin 0.083% Nebulizer Soln - NEB 1 amp RTID [facility] Administration Carbidopa/Levodopa 1 each 06/05/19 07:00 06/11/19 11:13 Sinemet 25/100 - PO 1 each TID@0700,1200,1900 [facility] Administration Chlorhexidine Gluconate 1 applic 06/04/19 22:00 06/10/19 21:20 Hibiclens For Decolonization - TP 1 applic HS [facility] Administration Heparin Sodium (Porcine) 5,000 unit 06/04/19 22:00 06/11/19 14:17 Heparin - SQ 5,000 unit TID [facility] Administration Piperacillin Sod/Tazobactam 50 mls @ 100 mls/hr 06/05/19 02:00 06/11/19 10:55 Sod 3.375 gm/ Dextrose IVPB 100 mls/hr Q8H-IV [facility] Administration Protocol Insulin Aspart 1 vial 06/07/19 22:00 06/11/19 11:42 Novolog Vial Sliding Scale - SQ 4 units ACHS [facility] Administration Protocol Methylprednisolone Sodium Succinate 20 mg 06/08/19 10:00 06/11/19 10:55 Solu-Medrol - IVPUSH 20 mg BID [facility] Administration Non-Formulary Medication 1 each 06/05/19 10:00 06/11/19 10:55 Rotigotine [Neupro] TD 1 each DAILY [facility] Administration Pantoprazole Sodium 40 mg 06/05/19 10:00 06/11/19 10:55 Protonix Iv IVPUSH 40 mg DAILY [facility] Administration Rivastigmine 1 each 06/05/19 10:00 06/11/19 10:55 Exelon Patch 4.6mg/24 Hours - TD 1 each DAILY [facility] Administration Impression 1. JOS 2. sepsis 3. PNA 4. dementia 5. parkinsons 6. lactic acidosis 7. rhabdo 8. DM 9. HTN 10. resp failure Plan - cont feeds - cont parkinsons meds - repeat labs in am - will follow prn
--- NOTE | 2019-06-11 15:45 | PN ---
Physical Exam: SUBJECTIVE: Patient seen and examined NAEON No complaints. Not answering questions, not moving extremities OBJECTIVE: Vital Signs Period Temp Pulse Resp BP Sys/Campbell Pulse Ox Last 24 Hr 98.2 F-98.5 F 60-79 20-25 95-130/52-75 100-100 GENERAL: Lethargic, off sedation for multiple days. No spontaneous motion. Mildly response to painful stimuli HEAD: NC/AT EYES: extraocular movements tracking movement briefly, sclera anicteric, conjunctiva clear. No ptosis. ENT: Ears normal, nares patent, NGT feed NECK: Trachea midline, full range of motion, supple. LUNGS: Breath sounds equal, mildly coarse BS bilaterally. HEART: Regular rate and rhythm, S1, S2 without murmur, rub or gallop. ABDOMEN: Soft, nontender, nondistended, normoactive bowel sounds, no guarding, no rebound. EXTREMITIES: 2+ pulses, warm, well-perfused, no edema. BLE with nonpitting edema. DP2+ b/l NEUROLOGICAL: not opening eyes to pain, withdrawing BUE and BLE to painful stimuli. Not responding to questioning SKIN: Warm, dry, normal turgor, no rashes or lesions noted Laboratory Results - last 24 hr 06/10/19 06/10/19 06/11/19 16:43 21:22 05:37 WBC RBC Hgb Hct MCV MCH MCHC RDW Plt Count MPV Sodium Potassium Chloride Carbon Dioxide Anion Gap BUN Creatinine Est GFR (CKD-EPI)AfAm Est GFR (CKD-EPI)NonAf POC Glucometer 314 277 310 Random Glucose Calcium Phosphorus Magnesium 06/11/19 06/11/19 06/11/19 05:45 05:45 11:39 WBC 14.6 H RBC 4.27 Hgb 9.7 L Hct 30.7 L MCV 71.9 L MCH 22.8 L MCHC 31.7 L RDW 17.1 H Plt Count 383 MPV 9.0 Sodium 137 Potassium 4.5 Chloride 102 Carbon Dioxide 29 Anion Gap 5 L BUN 20.8 H Creatinine 0.9 Est GFR (CKD-EPI)AfAm 69.50 Est GFR (CKD-EPI)NonAf 59.96 POC Glucometer 298 Random Glucose 334 H Calcium 8.1 L Phosphorus 2.6 Magnesium 2.3 Active Medications Generic Name Dose Route Start Last Admin Trade Name Freq PRN Reason Stop Dose Admin Acetylcysteine 600 mg 06/05/19 08:00 06/11/19 08:21 Mucomyst 20 Oral / Inh Use Only* NEB 600 mg RBID [facility] Administration Albuterol Sulfate 1 amp 06/04/19 21:42 Ventolin 0.083% Nebulizer Soln - NEB Q6H PRN SHORT OF BREATH/WHEEZING Albuterol Sulfate 1 amp 06/05/19 08:00 06/11/19 08:21 Ventolin 0.083% Nebulizer Soln - NEB 1 amp RTID [facility] Administration Carbidopa/Levodopa 1 each 06/05/19 07:00 06/11/19 11:13 Sinemet 25/100 - PO 1 each TID@0700,1200,1900 [facility] Administration Chlorhexidine Gluconate 1 applic 06/04/19 22:00 06/10/19 21:20 Hibiclens For Decolonization - TP 1 applic HS [facility] Administration Heparin Sodium (Porcine) 5,000 unit 06/04/19 22:00 06/11/19 14:17 Heparin - SQ 5,000 unit TID [facility] Administration Piperacillin Sod/Tazobactam 50 mls @ 100 mls/hr 06/05/19 02:00 06/11/19 10:55 Sod 3.375 gm/ Dextrose IVPB 100 mls/hr Q8H-IV [facility] Administration Protocol Insulin Aspart 1 vial 06/07/19 22:00 06/11/19 11:42 Novolog Vial Sliding Scale - SQ 4 units ACHS [facility] Administration Protocol Methylprednisolone Sodium Succinate 20 mg 06/08/19 10:00 06/11/19 10:55 Solu-Medrol - IVPUSH 20 mg BID [facility] Administration Non-Formulary Medication 1 each 06/05/19 10:00 06/11/19 10:55 Rotigotine [Neupro] TD 1 each DAILY [facility] Administration Pantoprazole Sodium 40 mg 06/05/19 10:00 06/11/19 10:55 Protonix Iv IVPUSH 40 mg DAILY [facility] Administration Rivastigmine 1 each 06/05/19 10:00 06/11/19 10:55 Exelon Patch 4.6mg/24 Hours - TD 1 each DAILY [facility] Administration ASSESSMENT/PLAN: 79y/o female with Parkinson's and dementia who presents with AMS and cough x 4 days. At baseline she is non-ambulatory and mental status changes from day to day (some days she is alert and oriented, can speak sentences, other days she does not speak at all). Pt was hypoxic to the 80s at ED presentation. Intubated for increased work of breathing. Flu negative. Possibly had aspiration PNA. Atelectasis vs infiltrate at Left base. Extubated on 06/09. Repeat CTH on by Neuro, w/o significant interval change; possibly chronic and superimposed sinusitis of Left maxillary antrum and sphenoid sinus. #acute hypoxic respiratory failure 2/2 multilobar PNA and sepsis -CXR improved post-intubation > CXR(06/08/19): Left base w/ minimal atelectasis, sharp rib angles > flu: negative > Echo: normal EF, impaired relaxation, elevated filling pressures, TR, MR -duonebs TID -solumedrol 20mg IVP BID -zosyn 3.375g Q8H --day#7 -ID following #AMS toxic metabolic encephalopathy vs less likely CVA -CT head negative for acute processes -CT H(06/11/19): no significant change, possible chronic/superimposed Left maxillary sinusitis -urine cx negative -blood cx(06/01/19)- Staph coag negative in 1 bottle -blood cx(06/03/19): NGTD -dietary following -speech following #sacral skin tear -surgery consulted- management per note #leukocytosis -from infection vs steroid use -mild improvement continues -continue monitor #JOS, resolved -nephro following -Cardio following --diovan held --BP stable #anemia of chronic disease -microcytosis but low TIBC, unsaturated IBC, and high ferritin #Parkinson's and dementia -continue Sinimet, modified dose for NG tube, @0700, 1200, 1900 -rivostigmine patch -rotigotine patch #mild hypophosphatemia, resolved #lactic acidosis, resolved #transaminitis, improved DVT ppx SQH GI ppx protonix FEN monitor labs NG feeds Visit type - Emergency Visit Emergency Visit: No - New Patient This patient is new to me today: No - Critical Care Critical Care patient: No ATTENDING PHYSICIAN STATEMENT I saw and evaluated the patient. I reviewed the resident's note and discussed the case with the resident. I agree with the resident's findings and plan as documented. SUBJECTIVE: OBJECTIVE: ASSESSMENT AND PLAN:
--- NOTE | 2019-06-11 16:35 | PN ---
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 (short form) - Note 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: s: lethargic, not rousable Current Medications Acetylcysteine (Mucomyst 20 Oral / Inh Use Only*) 600 mg NEB RBID [facility] Last Admin: 06/11/19 08:21 Dose: 600 mg Albuterol Sulfate (Ventolin 0.083% Nebulizer Soln -) 1 amp NEB Q6H PRN PRN Reason: SHORT OF BREATH/WHEEZING Albuterol Sulfate (Ventolin 0.083% Nebulizer Soln -) 1 amp NEB RTID [facility] Last Admin: 06/11/19 14:30 Dose: 1 amp Carbidopa/Levodopa (Sinemet 25/100 -) 1 each PO TID@0700,1200,1900 [facility] Last Admin: 06/11/19 11:13 Dose: 1 each Chlorhexidine Gluconate (Hibiclens For Decolonization -) 1 applic TP HS [facility] Last Admin: 06/10/19 21:20 Dose: 1 applic Heparin Sodium (Porcine) (Heparin -) 5,000 unit SQ TID [facility] Last Admin: 06/11/19 14:17 Dose: 5,000 unit Piperacillin Sod/Tazobactam (Sod 3.375 gm/ Dextrose) 50 mls @ 100 mls/hr IVPB Q8H-IV [facility]; Protocol Last Admin: 06/11/19 10:55 Dose: 100 mls/hr Insulin Aspart (Novolog Vial Sliding Scale -) 1 vial SQ ACHS [facility]; Protocol Last Admin: 06/11/19 11:42 Dose: 4 units Methylprednisolone Sodium Succinate (Solu-Medrol -) 20 mg IVPUSH BID [facility] Last Admin: 06/11/19 10:55 Dose: 20 mg Non-Formulary Medication (Rotigotine [Neupro]) 1 each TD DAILY [facility] Last Admin: 06/11/19 10:55 Dose: 1 each Pantoprazole Sodium (Protonix Iv) 40 mg IVPUSH DAILY [facility] Last Admin: 06/11/19 10:55 Dose: 40 mg Rivastigmine (Exelon Patch 4.6mg/24 Hours -) 1 each TD DAILY [facility] Last Admin: 06/11/19 10:55 Dose: 1 each Vital Signs Period Temp Pulse Resp BP Sys/Campbell Pulse Ox Last 24 Hr 98.2 F-98.5 F 60-85 20-27 95-130/52-75 96-100 Constitutional: Yes: Well Nourished, No Distress, Calm Cardiovascular: Yes: Regular Rate and Rhythm, S1, S2. No: Gallop, Murmur Respiratory: Yes: Regular, CTA Bilaterally (anteriorly). No: Accessory Muscle Use Extremities: No: Cold Edema: No Neurological: No: Alert, Oriented Psychiatric: No: Agitated no jaundice, diaphoresis Assessment/Plan echo 05/2019 nl LV/RV function, impaired relaxation, elevated filling pressures, RV not well visualized, mild to mod MR, mild mod TR CXR: no congestion/effusions (+ atx) tele: NSR, sinus debora/sinus arrhythmia PNA, sepsis, acute respiratory failure 2/2 suspected aspiration - manage per critical care, ID; vent support - intubated after suspected aspiration event, now extubated - nl LV function on echo HTN: - holding diovan in setting of JOS, bp has been stable DM: - manage per primary dementia, parkinson's: - manage per primary JOS, rhabdo: - renal fxn improved, off IVF
--- NOTE | 2019-06-11 17:43 | PN ---
Teaching Attending Note Name of Resident: Miguel A Stovall ATTENDING PHYSICIAN STATEMENT I saw and evaluated the patient. I reviewed the resident's note and discussed the case with the resident. I agree with the resident's findings and plan as documented. SUBJECTIVE: Patient seen and examined in the ICU. extubated, but lethargic. on 4L NC Vital Signs Temperature 98.4 F 06/11/19 14:00 Pulse Rate 85 06/11/19 14:00 Respiratory Rate 27 H 06/11/19 14:00 Blood Pressure 109/67 06/11/19 14:00 O2 Sat by Pulse Oximetry (%) 96 06/11/19 14:00 GENERAL: The patient is lethargic. in no acute distress. HEAD: Normal with no signs of trauma. EYES: PERRL, extraocular movements intact, sclera anicteric, conjunctiva clear. ENT: Ears normal, oropharynx clear without exudates, moist mucous membranes. NECK: Trachea midline, full range of motion, supple. LUNGS: decreased Breath sounds bl, no wheezes, no crackles, no accessory muscle use. on 4l oxygen HEART: Regular rate and rhythm, S1, S2 without murmur, rub or gallop. ABDOMEN: Soft, NT,ND, normoactive bowel sounds, no guarding, no rebound, no hepatosplenomegaly, no masses. EXTREMITIES: 2+ pulses, warm, well-perfused, no edema. NEUROLOGICAL: Cranial nerves II through XII grossly intact. Normal speech, gait not observed. PSYCH: Normal mood, normal affect. SKIN: Warm, dry, normal turgor, no rashes or lesions noted CBCD WBC 14.6 K/mm3 (4.0-10.0) H 06/11/19 05:45 RBC 4.27 M/mm3 (3.60-5.2) 06/11/19 05:45 Hgb 9.7 GM/dL (10.7-15.3) L 06/11/19 05:45 Hct 30.7 % (32.4-45.2) L 06/11/19 05:45 MCV 71.9 fl (80-96) L 06/11/19 05:45 MCHC 31.7 g/dl (32.0-36.0) L 06/11/19 05:45 RDW 17.1 % (11.6-15.6) H 06/11/19 05:45 Plt Count 383 K/MM3 (134-434) 06/11/19 05:45 MPV 9.0 fl (7.5-11.1) 06/11/19 05:45 CMP Sodium 137 mmol/L (136-145) 06/11/19 05:45 Potassium 4.5 mmol/L (3.5-5.1) 06/11/19 05:45 Chloride 102 mmol/L (98-107) 06/11/19 05:45 Carbon Dioxide 29 mmol/L (21-32) 06/11/19 05:45 Anion Gap 5 MMOL/L (8-16) L 06/11/19 05:45 BUN 20.8 mg/dL (7-18) H 06/11/19 05:45 Creatinine 0.9 mg/dL (0.55-1.3) 06/11/19 05:45 Random Glucose 334 mg/dL (74-106) H 06/11/19 05:45 Calcium 8.1 mg/dL (8.5-10.1) L 06/11/19 05:45 Total Bilirubin 0.3 mg/dL (0.2-1) 06/09/19 05:38 AST 21 U/L (15-37) 06/09/19 05:38 ALT 40 U/L (13-61) 06/09/19 05:38 Alkaline Phosphatase 74 U/L (45-117) 06/09/19 05:38 Total Protein 6.2 g/dl (6.4-8.2) L 06/09/19 05:38 Albumin 2.3 g/dl (3.4-5.0) L 06/09/19 05:38 CARDIAC ENZYMES Creatine Kinase 281 U/L (26-192) H 06/04/19 06:30 Troponin I < 0.02 ng/ml (0.00-0.05) 06/01/19 04:07 Current Medications Generic Name Dose Route Start Last Admin Trade Name Freq PRN Reason Stop Dose Admin Acetylcysteine 600 mg 06/05/19 08:00 06/11/19 08:21 Mucomyst 20 Oral / Inh Use Only* NEB 600 mg RBID [facility] Administration Albuterol Sulfate 1 amp 06/04/19 21:42 Ventolin 0.083% Nebulizer Soln - NEB Q6H PRN SHORT OF BREATH/WHEEZING Albuterol Sulfate 1 amp 06/05/19 08:00 06/11/19 14:30 Ventolin 0.083% Nebulizer Soln - NEB 1 amp RTID [facility] Administration Carbidopa/Levodopa 1 combo 06/11/19 19:00 Sinemet *Cr* 50/200 - PO TID@0700,1200,1900 [facility] Chlorhexidine Gluconate 1 applic 06/04/19 22:00 06/10/19 21:20 Hibiclens For Decolonization - TP 1 applic HS [facility] Administration Heparin Sodium (Porcine) 5,000 unit 06/04/19 22:00 06/11/19 14:17 Heparin - SQ 5,000 unit TID [facility] Administration Piperacillin Sod/Tazobactam 50 mls @ 100 mls/hr 06/05/19 02:00 06/11/19 17:28 Sod 3.375 gm/ Dextrose IVPB 100 mls/hr Q8H-IV [facility] Administration Protocol Insulin Aspart 1 vial 06/11/19 16:42 Novolog Vial Sliding Scale - SQ ACHS [facility] Protocol Methylprednisolone Sodium Succinate 20 mg 06/08/19 10:00 06/11/19 10:55 Solu-Medrol - IVPUSH 20 mg BID [facility] Administration Non-Formulary Medication 1 each 06/05/19 10:00 06/11/19 10:55 Rotigotine [Neupro] TD 1 each DAILY [facility] Administration Pantoprazole Sodium 40 mg 06/05/19 10:00 06/11/19 10:55 Protonix Iv IVPUSH 40 mg DAILY [facility] Administration Rivastigmine 1 each 06/05/19 10:00 06/11/19 10:55 Exelon Patch 4.6mg/24 Hours - TD 1 each DAILY [facility] Administration Hepatic Panel Total Bilirubin 0.3 mg/dL (0.2-1) 06/09/19 05:38 AST 21 U/L (15-37) 06/09/19 05:38 ALT 40 U/L (13-61) 06/09/19 05:38 Alkaline Phosphatase 74 U/L (45-117) 06/09/19 05:38 Albumin 2.3 g/dl (3.4-5.0) L 06/09/19 05:38 06/03/19 11:40 Blood - Peripheral Venous Blood Culture - Final NO GROWTH AFTER 5 DAYS INCUBATION 06/03/19 12:00 Blood - Peripheral Venous Blood Culture - Final NO GROWTH AFTER 5 DAYS INCUBATION 06/04/19 06:20 Sputum - Oropharynx Suctioned Sputum Gram Stain - Final 06/04/19 06:20 Sputum - Oropharynx Suctioned Sputum Sputum Culture - Final Yeast Like Organism 06/01/19 00:00 Blood - Peripheral Venous Blood Culture - Final NO GROWTH AFTER 5 DAYS INCUBATION 06/01/19 00:00 Blood - Peripheral Venous Blood Culture - Final Staph Capitis Subsp Ureolyticu 06/01/19 03:00 Urine For Antigen Detection Legionella Antigen - Final 06/01/19 03:00 Urine For Antigen Detection Streptococcus pneumoniae Antigen (M - Final 06/01/19 01:20 Urine - Urine - Catheterized Urine Culture - Final NO GROWTH OBTAINED Laboratory Tests 06/01/19 06/01/19 06/02/19 16:50 20:00 05:47 BUN 37.6 H 32.5 H Creatinine 1.3 1.1 Lactic Acid 3.6 H* Creatine Kinase 1578 H 954 H 06/02/19 06/04/19 05:47 06:30 BUN Creatinine Lactic Acid 1.5 Creatine Kinase 281 H Assessment and plan: Patient is an 79yof with h/o Parkinson Disease and dementia who presented with AMS. # Acute hypercapnic resp failure s/p extubation , comfortable, on 4 liter oxygen. cpap if needed. Cont steroids # Aspiration PNA continue IV zosyn, on steroid IV continue # JOS: improved. # Rhabdo s/p IVF # Thrombocytopenia: resolved # h/o HTN # h/o DM: cont SSI # AMS: acute metabolic encephalopathy # h/o dementia # Microcytic anemia #contaminant blood cx # hx of Parkisonism cont Sinemet # yeast in sputum DVT px; heparin SQ. Continue current treatment.
[2019-06-11] MEDS ORDERED: INSULIN REGULAR HUMAN 100 UNITS/ML *VIAL IVPUSH ONE (17:59)
[2019-06-11] MEDS ORDERED: CARBIDOPA/LEVODOPA 25/100 TABLET (FP) PO SCH (18:00)
[2019-06-11] MEDS ORDERED: INSULIN (NOVOLOG) ASPART 100 UNITS/ML 10ML VIAL SQ ONE (18:05)
[2019-06-11] MEDS ORDERED: CHLORHEXIDINE GLUCONATE 4% CLEANSER FOR DECOLONIZATION TP SCH (22:00)
[2019-06-12] MEDS ORDERED: PIPERACILLIN/TAZOBACTAM 3.375 GM VIAL IVPB ONE ×3 (01:39→17:05)
[2019-06-12] MEDS ORDERED: DEXTROSE 5%-WATER - 50 ML IVPB ONE ×3 (01:39→17:06)
[2019-06-12] MEDS: PIPERACILLIN/TAZOB 3.375 GM 3.375 GM in DEXTROSE 5%-WATER - 50 ML IVPB SCH ×3 (02:16→17:25)
[2019-06-12] MEDS: INSULIN SLIDING SCALE (NOVOLOG) 1 VIAL SQ SCH ×3 (06:19→22:37)
[2019-06-12] MEDS: HEPARIN NA (PORCINE) 5,000 UNITS/ML 1ML VIAL SQ SCH ×3 (06:19→22:23)
[2019-06-12 06:38] LABS: HEMOGLOBIN 10.6 GM/dL (10.7-15.3); MCH 23.2 pg (25.7-33.7); MCHC 32.3 g/dl (32.0-36.0); MEAN PLT VOLUME 9.1 fl (7.5-11.1); PLATELET COUNT 423 K/MM3 (134-434); RBC 4.58 M/mm3 (3.60-5.2); RDW 17.1 % (11.6-15.6); WHITE BLOOD COUNT 13.4 K/mm3 (4.0-10.0)
[2019-06-12 07:10] LABS: CALCIUM 8.2 mg/dL (8.5-10.1); CREATININE 0.9 mg/dL (0.55-1.3); PHOSPHOROUS 2.8 mg/dL (2.5-4.9); POTASSIUM 4.9 mmol/L (3.5-5.1)
[2019-06-12] MEDS ORDERED: ACETYLCYSTEINE 20% 200MG/ML 4 ML VIAL *FOR ORAL / INH USE ONLY NEB SCH (08:00)
--- NOTE | 2019-06-12 08:38 | PN ---
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 (short form) - Note 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: Neurology CHIEF COMPLAINT: AMS PCP: None HISTORY OF PRESENT ILLNESS: Ms. Prescott is an 79 year old female with PMH of Parkinson Disease and dementia who was BIBEMS with AMS x4 days at time of admission. Daughter was at bedside and that time and provided history. 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 At baseline she is non-ambulatory and mental status changes from day to day (some days she is alert and oriented, can speak sentences, other days she does not speak at all). Pt has had a productive cough of yellow sputum for 4 days before day of admission and has become increasingly confused and somnolent. Decreased appetite, unable to eat or drink anything. On day of admission, she was not responding at all and had a low grade fever. Daughter stated that pt has not complained of any symptoms (chest pain, abd pain , SOB, urinary complaints). On arrival to ED, pt was hypoxic in the 80s. Patient consulted for altered mental status. Ct of head reviewed and showed no evidence of a focal intracranial lesion or hemorrhage completed on 06/01 at the time of admission. Patient downgraded from ICU and currently on telemetry floor. Slightly more awake this morning, not following all commands but able to open her eyes briefly. Mental status may be limited due to underlying infection and recently was intubated and extubated. Repeat CT head without acute changes. Active Medications Acetylcysteine (Mucomyst 20 Oral / Inh Use Only*) 600 mg NEB RBID [facility] Last Admin: 06/12/19 08:35 Dose: Not Given Carbidopa/Levodopa (Sinemet 25/100 -) 2 each PO TID@0700,1200,1900 [facility] Heparin Sodium (Porcine) (Heparin -) 5,000 unit SQ TID [facility] Last Admin: 06/12/19 06:19 Dose: 5,000 unit Piperacillin Sod/Tazobactam (Sod 3.375 gm/ Dextrose) 50 mls @ 100 mls/hr IVPB Q8H-IV [facility]; Protocol Last Admin: 06/12/19 02:16 Dose: 100 mls/hr Insulin Aspart (Novolog Vial Sliding Scale -) 1 vial SQ ACHS [facility]; Protocol Last Admin: 06/12/19 06:19 Dose: 8 units Methylprednisolone Sodium Succinate (Solu-Medrol -) 20 mg IVPUSH BID [facility] Last Admin: 06/11/19 23:15 Dose: 20 mg Non-Formulary Medication (Rotigotine [Neupro]) 1 each TD DAILY [facility] Pantoprazole Sodium (Protonix Iv) 40 mg IVPUSH DAILY [facility] Rivastigmine (Exelon Patch 4.6mg/24 Hours -) 1 each TD DAILY [facility] PHYSICAL EXAMINATION Vital Signs Period Temp Pulse Resp BP Sys/Campbell Pulse Ox Last 24 Hr 97.5 F-98.5 F 67-85 20-27 92-144/53-83 95-100 GENERAL: Somnolent, slightly responsive to sternal rub. HEAD: Normal with no signs of trauma. EYES: Pupils equal, round and reactive to light, extraocular movements intact, sclera anicteric, conjunctiva clear. No lid lag. EARS, NOSE, THROAT: Ears normal, nares patent, oropharynx clear without exudates. Dry mucous membranes. NECK: Normal range of motion, supple without lymphadenopathy, JVD, or masses. LUNGS: Inspiratory and expiratory wheezes throughout, accessory muscle use. HEART: Regular rate and rhythm, normal S1 and S2 without murmur, rub or gallop. ABDOMEN: Soft, nontender, not distended, normoactive bowel sounds, no guarding, no rebound, no masses. No hepatomegaly or splenomegaly. MUSCULOSKELETAL: Normal range of motion at all joints. No bony deformities or tenderness. No CVA tenderness. UPPER EXTREMITIES: 2+ pulses, warm, well-perfused. No cyanosis. No clubbing. No peripheral edema. LOWER EXTREMITIES: 2+ pulses, warm, well-perfused. No calf tenderness. No peripheral edema. NEUROLOGICAL: Unable to assess 2/2 mental status. PSYCHIATRIC: Cooperative. Good eye contact. Appropriate mood and affect. SKIN: Warm, dry, normal turgor, normal capillary refill. Sacral decubitus ulcer with sloughing skin and erythema. CBCD WBC 13.4 K/mm3 (4.0-10.0) H 06/12/19 06:10 RBC 4.58 M/mm3 (3.60-5.2) 06/12/19 06:10 Hgb 10.6 GM/dL (10.7-15.3) L 06/12/19 06:10 Hct 33.0 % (32.4-45.2) 06/12/19 06:10 MCV 72.0 fl (80-96) L 06/12/19 06:10 MCHC 32.3 g/dl (32.0-36.0) 06/12/19 06:10 RDW 17.1 % (11.6-15.6) H 06/12/19 06:10 Plt Count 423 K/MM3 (134-434) 06/12/19 06:10 MPV 9.1 fl (7.5-11.1) 06/12/19 06:10 CMP Sodium 135 mmol/L (136-145) L 06/12/19 06:10 Potassium 4.9 mmol/L (3.5-5.1) 06/12/19 06:10 Chloride 101 mmol/L (98-107) 06/12/19 06:10 Carbon Dioxide 29 mmol/L (21-32) 06/12/19 06:10 Anion Gap 5 MMOL/L (8-16) L 06/12/19 06:10 BUN 20.0 mg/dL (7-18) H 06/12/19 06:10 Creatinine 0.9 mg/dL (0.55-1.3) 06/12/19 06:10 Random Glucose 318 mg/dL (74-106) H 06/12/19 06:10 Calcium 8.2 mg/dL (8.5-10.1) L 06/12/19 06:10 Total Bilirubin 0.3 mg/dL (0.2-1) 06/09/19 05:38 AST 21 U/L (15-37) 06/09/19 05:38 ALT 40 U/L (13-61) 06/09/19 05:38 Alkaline Phosphatase 74 U/L (45-117) 06/09/19 05:38 Total Protein 6.2 g/dl (6.4-8.2) L 06/09/19 05:38 Albumin 2.3 g/dl (3.4-5.0) L 06/09/19 05:38 CARDIAC ENZYMES Creatine Kinase 281 U/L (26-192) H 06/04/19 06:30 Troponin I < 0.02 ng/ml (0.00-0.05) 06/01/19 04:07 ASSESSMENT/PLAN: Ms. Prescott is an 79 year old female with PMH of Parkinson Disease and dementia who was BIBEMS with AMS x4 days at time of admission. Daughter was at bedside and that time and provided history. 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 At baseline she is non-ambulatory and mental status changes from day to day (some days she is alert and oriented, can speak sentences, other days she does not speak at all). Pt has had a productive cough of yellow sputum for 4 days before day of admission and has become increasingly confused and somnolent. Decreased appetite, unable to eat or drink anything. On day of admission, she was not responding at all and had a low grade fever. Daughter stated that pt has not complained of any symptoms (chest pain, abd pain , SOB, urinary complaints). On arrival to ED, pt was hypoxic in the 80s. Patient consulted for altered mental status. Ct of head reviewed and showed no evidence of a focal intracranial lesion or hemorrhage completed on 06/01 at the time of admission. Patient downgraded from ICU and currently on telemetry floor. Slightly more awake this morning, not following all commands but able to open her eyes briefly. Mental status may be limited due to underlying infection and recently was intubated and extubated. Repeat CT head without acute changes. Requires further medical management and optimization,, continued elevation in white count indicating possible persistent infectious etiology. ID note reviewed, off antibiotics. Maintain adequate hydration, frequent orientation whenever able. Consider SNF placement if able.
[2019-06-12] MEDS: CARBIDOPA/LEVODOPA 25/100 TABLET (FP) PO SCH ×3 (08:55→18:44)
--- NOTE | 2019-06-12 10:18 | PN ---
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 (short form) - Note 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: Resting in NAD. Lethargic, Breathing is non-labored. Intake & Output 06/09/19 06/10/19 06/11/19 06/12/19 23:59 23:59 23:59 23:59 Intake Total 1581 1780 1500 70 Output Total 1000 1900 950 400 Balance 581 -120 550 -330 Weight 137 lb 11.2 oz 145 lb 8.081 oz 135 lb 8 oz Last Vital Signs Temp Pulse Resp BP Pulse Ox 98.3 F 78 20 119/79 98 06/12/19 08:00 06/12/19 08:00 06/12/19 09:00 06/12/19 08:00 06/12/19 09:00 Active Medications Acetylcysteine (Mucomyst 20 Oral / Inh Use Only*) 600 mg NEB RBID [facility] Last Admin: 06/12/19 08:35 Dose: Not Given Carbidopa/Levodopa (Sinemet 25/100 -) 2 each PO TID@0700,1200,1900 [facility] Heparin Sodium (Porcine) (Heparin -) 5,000 unit SQ TID [facility] Last Admin: 06/12/19 06:19 Dose: 5,000 unit Piperacillin Sod/Tazobactam (Sod 3.375 gm/ Dextrose) 50 mls @ 100 mls/hr IVPB Q8H-IV [facility]; Protocol Last Admin: 06/12/19 02:16 Dose: 100 mls/hr Insulin Aspart (Novolog Vial Sliding Scale -) 1 vial SQ ACHS [facility]; Protocol Last Admin: 06/12/19 06:19 Dose: 8 units Methylprednisolone Sodium Succinate (Solu-Medrol -) 20 mg IVPUSH BID [facility] Last Admin: 06/11/19 23:15 Dose: 20 mg Non-Formulary Medication (Rotigotine [Neupro]) 1 each TD DAILY [facility] Pantoprazole Sodium (Protonix Iv) 40 mg IVPUSH DAILY [facility] Rivastigmine (Exelon Patch 4.6mg/24 Hours -) 1 each TD DAILY [facility] GENERAL: Lethargic, NAD EYES: non icteric LUNGS: scattered bilateral rhonchi HEART: S1, S2 ABDOMEN: Soft, nontender, nondistended, normoactive bowel sounds EXTREMITIES: 2+ pulses, warm, b/l dependent pedal edema. NEUROLOGICAL: lethargic Laboratory Results - last 24 hr 06/11/19 06/11/19 06/11/19 11:39 17:21 23:13 WBC RBC Hgb Hct MCV MCH MCHC RDW Plt Count MPV Sodium Potassium Chloride Carbon Dioxide Anion Gap BUN Creatinine Est GFR (CKD-EPI)AfAm Est GFR (CKD-EPI)NonAf POC Glucometer 298 255 139 Random Glucose Calcium Phosphorus Magnesium 06/12/19 06/12/19 06/12/19 05:52 06:10 06:10 WBC 13.4 H RBC 4.58 Hgb 10.6 L Hct 33.0 MCV 72.0 L MCH 23.2 L MCHC 32.3 RDW 17.1 H Plt Count 423 MPV 9.1 Sodium 135 L Potassium 4.9 Chloride 101 Carbon Dioxide 29 Anion Gap 5 L BUN 20.0 H Creatinine 0.9 Est GFR (CKD-EPI)AfAm 69.50 Est GFR (CKD-EPI)NonAf 59.96 POC Glucometer 325 Random Glucose 318 H Calcium 8.2 L Phosphorus 2.8 Magnesium 2.0 ASSESSMENT/PLAN: Acute Hypercapneic Respiratory Failure due to suspected Aspiration Parkinson Disease Dementia AMS PNA Leukocytosis Lactic acidosis -Pulmonary Toilet -ABX per ID -Sinemet and Neupro and Rivastigmine patches -VTE prophylaxis -GI prophylaxis -Medrol Dr Collins
--- NOTE | 2019-06-12 10:19 | PN ---
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, Physician Chief Complaint: does not respond to verbal stimuli TELE: NSR, PVCs - Current Medication List Current Medications: Active Medications Acetylcysteine (Mucomyst 20 Oral / Inh Use Only*) 600 mg NEB RBID [facility] Last Admin: 06/12/19 08:35 Dose: Not Given Carbidopa/Levodopa (Sinemet 25/100 -) 2 each PO TID@0700,1200,1900 [facility] Heparin Sodium (Porcine) (Heparin -) 5,000 unit SQ TID [facility] Last Admin: 06/12/19 06:19 Dose: 5,000 unit Piperacillin Sod/Tazobactam (Sod 3.375 gm/ Dextrose) 50 mls @ 100 mls/hr IVPB Q8H-IV [facility]; Protocol Last Admin: 06/12/19 02:16 Dose: 100 mls/hr Insulin Aspart (Novolog Vial Sliding Scale -) 1 vial SQ ACHS [facility]; Protocol Last Admin: 06/12/19 06:19 Dose: 8 units Methylprednisolone Sodium Succinate (Solu-Medrol -) 20 mg IVPUSH BID [facility] Last Admin: 06/11/19 23:15 Dose: 20 mg Non-Formulary Medication (Rotigotine [Neupro]) 1 each TD DAILY [facility] Pantoprazole Sodium (Protonix Iv) 40 mg IVPUSH DAILY [facility] Rivastigmine (Exelon Patch 4.6mg/24 Hours -) 1 each TD DAILY [facility] - Objective Vital Signs: Vital Signs Temperature 98.3 F 06/12/19 08:00 Pulse Rate 78 06/12/19 08:00 Respiratory Rate 20 06/12/19 09:00 Blood Pressure 119/79 06/12/19 08:00 O2 Sat by Pulse Oximetry (%) 98 06/12/19 09:00 Constitutional: Yes: No Distress Cardiovascular: Yes: Regular Rate and Rhythm Respiratory: Yes: Rhonchi Gastrointestinal: Yes: Soft Edema: No Labs: CBC, BMP 06/12/19 06:10 06/12/19 06:10 INR, PTT INR 1.16 (0.83-1.09) H 06/01/19 09:40 Laboratory Tests 06/12/19 06/12/19 06:10 06:10 WBC 13.4 H Hgb 10.6 L Plt Count 423 Sodium 135 L Potassium 4.9 BUN 20.0 H Creatinine 0.9 Calcium 8.2 L Phosphorus 2.8 Magnesium 2.0 Assessment/Plan Assessment/Plan echo 05/2019 nl LV/RV function, impaired relaxation, elevated filling pressures, RV not well visualized, mild to mod MR, mild mod TR CXR: no congestion/effusions (+ atx) tele: NSR, sinus debora/sinus arrhythmia PNA, sepsis, acute respiratory failure / suspected aspiration: - manage per critical care, ID; - intubated after suspected aspiration event, now extubated - nl LV function on echo HTN: - holding diovan in setting of JOS, bp has been stable DM: - manage per primary dementia, parkinson's: - manage per primary JOS, rhabdo: - renal fxn improved, off IVF
[2019-06-12] MEDS: PANTOPRAZOLE SODIUM 40 MG VIAL IVPUSH SCH (10:52)
[2019-06-12] MEDS: methylPREDNISolone NA SUCC 40 MG/1 ML VIAL IVPUSH SCH ×2 (10:52→22:21)
[2019-06-12] MEDS ORDERED: PT OWN MED DRAWER 7, Y5N ONE (10:54)
[2019-06-12] MEDS: RIVASTIGMINE 4.6 MG/24 HOURS TRANSDERMAL PATCH TD SCH (10:55)
--- NOTE | 2019-06-12 11:31 | PN ---
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, PHLEBOTOMIST ASSOCIATE - Note 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: Selected Entries 06/11/19 06/11/19 06/11/19 02:00 06:00 10:00 Lunch Temperature 98.3 F 98.3 F 98.5 F 06/11/19 06/11/19 06/11/19 10:42 14:00 18:00 Lunch NPO Temperature 98.4 F 98.1 F 06/11/19 06/12/19 06/12/19 20:00 02:00 06:00 Lunch Temperature 98.3 F 97.5 F L 97.6 F 06/12/19 08:00 Lunch Temperature 98.3 F Laboratory Tests 06/08/19 06/09/19 06/10/19 05:55 05:38 05:32 WBC 13.9 H 12.7 H 11.6 H 06/11/19 06/12/19 05:45 06:10 WBC 14.6 H 13.4 H Continues to be somnolent, with some response to sternal rub. Not functionally arousable. Appears comfortable. Easy respiration/nC. Per medical team, family wants "everything done". Consider GT, with opportunity for pleasure feedings in future if pt improves. Continue NPO/NGT feedings as tolerated.
--- NOTE | 2019-06-12 13:13 | PN ---
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, Physician History of Present Illness: Pt seen and examined at bedside. She is tolerating feeds. - Current Medication List Current Medications: Active Medications Acetylcysteine (Mucomyst 20 Oral / Inh Use Only*) 600 mg NEB RBID [facility] Last Admin: 06/12/19 08:35 Dose: Not Given Carbidopa/Levodopa (Sinemet 25/100 -) 2 each PO TID@0700,1200,1900 [facility] Last Admin: 06/12/19 08:55 Dose: 2 each Heparin Sodium (Porcine) (Heparin -) 5,000 unit SQ TID [facility] Last Admin: 06/12/19 06:19 Dose: 5,000 unit Piperacillin Sod/Tazobactam (Sod 3.375 gm/ Dextrose) 50 mls @ 100 mls/hr IVPB Q8H-IV [facility]; Protocol Last Admin: 06/12/19 10:52 Dose: 100 mls/hr Insulin Aspart (Novolog Vial Sliding Scale -) 1 vial SQ ACHS [facility]; Protocol Last Admin: 06/12/19 12:38 Dose: Not Given Methylprednisolone Sodium Succinate (Solu-Medrol -) 20 mg IVPUSH BID [facility] Last Admin: 06/12/19 10:52 Dose: 20 mg Non-Formulary Medication (Rotigotine [Neupro]) 1 each TD DAILY [facility] Pantoprazole Sodium (Protonix Iv) 40 mg IVPUSH DAILY [facility] Last Admin: 06/12/19 10:52 Dose: 40 mg Rivastigmine (Exelon Patch 4.6mg/24 Hours -) 1 each TD DAILY [facility] Last Admin: 06/12/19 10:55 Dose: 1 each - Objective Vital Signs: Vital Signs Temperature 98.3 F 06/12/19 08:00 Pulse Rate 78 06/12/19 08:00 Respiratory Rate 20 06/12/19 10:00 Blood Pressure 119/79 06/12/19 08:00 O2 Sat by Pulse Oximetry (%) 98 06/12/19 10:00 Constitutional: Yes: Calm Eyes: Yes: Conjunctiva Clear HENT: Yes: Atraumatic Cardiovascular: Yes: S1, S2 Respiratory: Yes: CTA Bilaterally Gastrointestinal: Yes: Soft Genitourinary: Yes: WNL Musculoskeletal: Yes: WNL Edema: No Neurological: Yes: Lethargy Labs: CBC, BMP 06/12/19 06:10 06/12/19 06:10 INR, PTT INR 1.16 (0.83-1.09) H 06/01/19 09:40 Problem List - Problems (1) Rhabdomyolysis Code(s): M62.82 - RHABDOMYOLYSIS (2) JOS (acute kidney injury) Code(s): N17.9 - ACUTE KIDNEY FAILURE, UNSPECIFIED (3) Pneumonia Code(s): J18.9 - PNEUMONIA, UNSPECIFIED ORGANISM (4) Sepsis Code(s): A41.9 - SEPSIS, UNSPECIFIED ORGANISM Assessment/Plan Current Medications Generic Name Dose Route Start Last Admin Trade Name Freq PRN Reason Stop Dose Admin Acetylcysteine 600 mg 06/12/19 08:00 06/12/19 08:35 Mucomyst 20 Oral / Inh Use Only* NEB Not Given RBID [facility] Carbidopa/Levodopa 2 each 06/12/19 07:00 06/12/19 08:55 Sinemet 25/100 - PO 2 each TID@0700,1200,1900 [facility] Administration Heparin Sodium (Porcine) 5,000 unit 06/11/19 22:00 06/12/19 06:19 Heparin - SQ 5,000 unit TID [facility] Administration Piperacillin Sod/Tazobactam 50 mls @ 100 mls/hr 06/12/19 02:00 06/12/19 10:52 Sod 3.375 gm/ Dextrose IVPB 100 mls/hr Q8H-IV [facility] Administration Protocol Insulin Aspart 1 vial 06/11/19 16:42 06/12/19 12:38 Novolog Vial Sliding Scale - SQ Not Given ACHS [facility] Protocol Methylprednisolone Sodium Succinate 20 mg 06/11/19 22:00 06/12/19 10:52 Solu-Medrol - IVPUSH 20 mg BID [facility] Administration Non-Formulary Medication 1 each 06/12/19 10:00 Rotigotine [Neupro] TD DAILY [facility] Pantoprazole Sodium 40 mg 06/12/19 10:00 06/12/19 10:52 Protonix Iv IVPUSH 40 mg DAILY [facility] Administration Rivastigmine 1 each 06/12/19 10:00 06/12/19 10:55 Exelon Patch 4.6mg/24 Hours - TD 1 each DAILY [facility] Administration Impression 1. JOS 2. sepsis 3. PNA 4. dementia 5. parkinsons 6. lactic acidosis 7. rhabdo 8. DM 9. HTN 10. resp failure Plan - pt tolerating feeds - corrected sodium normal - glucose control - monitor lytes - will follow prn
[2019-06-12] MEDS: PATIENT'S OWN MEDICATION (NON-FORMULARY) (Rotigotine [Neupro] 1 EACH) TD SCH (15:48)
[2019-06-12] MEDS ORDERED: ACETAMINOPHEN 1000 MG/100 ML VIAL (NON FORMULARY) IVPB ONE (15:52)
[2019-06-12 15:58] VITALS: BMI 26.4
--- NOTE | 2019-06-12 16:21 | PN ---
Teaching Attending Note Name of Resident: Miguel A Stovall ATTENDING PHYSICIAN STATEMENT I saw and evaluated the patient. I reviewed the resident's note and discussed the case with the resident. I agree with the resident's findings and plan as documented. SUBJECTIVE: Patient looks comfortable, + NG-tube, nonverbal. Vital Signs Temperature 98.6 F 06/12/19 14:40 Pulse Rate 67 06/12/19 14:40 Respiratory Rate 17 06/12/19 14:40 Blood Pressure 144/85 06/12/19 14:40 O2 Sat by Pulse Oximetry (%) 98 06/12/19 10:00 GENERAL: The patient is lethargic.Non verbal HEAD: Normal with no signs of trauma. EYES: PERRL, extraocular movements intact, sclera anicteric, conjunctiva clear. ENT: Ears normal, oropharynx clear without exudates, +NG-tube feeding NECK: Trachea midline, full range of motion, supple. LUNGS: decreased Breath sounds bl, no wheezes, no crackles, no accessory muscle use. HEART: Regular rate and rhythm, S1, S2 without murmur, rub or gallop. ABDOMEN: Soft, NT,ND, normoactive bowel sounds, no guarding, no rebound, no hepatosplenomegaly, no masses. EXTREMITIES: 2+ pulses, warm, well-perfused, 1+ edema. NEUROLOGICAL: Cranial nerves II through XII grossly intact. Normal speech, gait not observed. PSYCH: Normal mood, normal affect. SKIN: Warm, dry, normal turgor, no rashes or lesions noted CBCD WBC 14.6 K/mm3 (4.0-10.0) H 06/11/19 05:45 RBC 4.27 M/mm3 (3.60-5.2) 06/11/19 05:45 Hgb 9.7 GM/dL (10.7-15.3) L 06/11/19 05:45 Hct 30.7 % (32.4-45.2) L 06/11/19 05:45 MCV 71.9 fl (80-96) L 06/11/19 05:45 MCHC 31.7 g/dl (32.0-36.0) L 06/11/19 05:45 RDW 17.1 % (11.6-15.6) H 06/11/19 05:45 Plt Count 383 K/MM3 (134-434) 06/11/19 05:45 MPV 9.0 fl (7.5-11.1) 06/11/19 05:45 CMP Sodium 137 mmol/L (136-145) 06/11/19 05:45 Potassium 4.5 mmol/L (3.5-5.1) 06/11/19 05:45 Chloride 102 mmol/L (98-107) 06/11/19 05:45 Carbon Dioxide 29 mmol/L (21-32) 06/11/19 05:45 Anion Gap 5 MMOL/L (8-16) L 06/11/19 05:45 BUN 20.8 mg/dL (7-18) H 06/11/19 05:45 Creatinine 0.9 mg/dL (0.55-1.3) 06/11/19 05:45 Random Glucose 334 mg/dL (74-106) H 06/11/19 05:45 Calcium 8.1 mg/dL (8.5-10.1) L 06/11/19 05:45 Total Bilirubin 0.3 mg/dL (0.2-1) 06/09/19 05:38 AST 21 U/L (15-37) 06/09/19 05:38 ALT 40 U/L (13-61) 06/09/19 05:38 Alkaline Phosphatase 74 U/L (45-117) 06/09/19 05:38 Total Protein 6.2 g/dl (6.4-8.2) L 06/09/19 05:38 Albumin 2.3 g/dl (3.4-5.0) L 06/09/19 05:38 CARDIAC ENZYMES Creatine Kinase 281 U/L (26-192) H 06/04/19 06:30 Troponin I < 0.02 ng/ml (0.00-0.05) 06/01/19 04:07 Current Medications Generic Name Dose Route Start Last Admin Trade Name Freq PRN Reason Stop Dose Admin Acetylcysteine 600 mg 06/05/19 08:00 06/11/19 08:21 Mucomyst 20 Oral / Inh Use Only* NEB 600 mg RBID [facility] Administration Albuterol Sulfate 1 amp 06/04/19 21:42 Ventolin 0.083% Nebulizer Soln - NEB Q6H PRN SHORT OF BREATH/WHEEZING Albuterol Sulfate 1 amp 06/05/19 08:00 06/11/19 14:30 Ventolin 0.083% Nebulizer Soln - NEB 1 amp RTID [facility] Administration Carbidopa/Levodopa 1 combo 06/11/19 19:00 Sinemet *Cr* 50/200 - PO TID@0700,1200,1900 [facility] Chlorhexidine Gluconate 1 applic 06/04/19 22:00 06/10/19 21:20 Hibiclens For Decolonization - TP 1 applic HS [facility] Administration Heparin Sodium (Porcine) 5,000 unit 06/04/19 22:00 06/11/19 14:17 Heparin - SQ 5,000 unit TID [facility] Administration Piperacillin Sod/Tazobactam 50 mls @ 100 mls/hr 06/05/19 02:00 06/11/19 17:28 Sod 3.375 gm/ Dextrose IVPB 100 mls/hr Q8H-IV [facility] Administration Protocol Insulin Aspart 1 vial 06/11/19 16:42 Novolog Vial Sliding Scale - SQ ACHS [facility] Protocol Methylprednisolone Sodium Succinate 20 mg 06/08/19 10:00 06/11/19 10:55 Solu-Medrol - IVPUSH 20 mg BID [facility] Administration Non-Formulary Medication 1 each 06/05/19 10:00 06/11/19 10:55 Rotigotine [Neupro] TD 1 each DAILY [facility] Administration Pantoprazole Sodium 40 mg 06/05/19 10:00 06/11/19 10:55 Protonix Iv IVPUSH 40 mg DAILY [facility] Administration Rivastigmine 1 each 06/05/19 10:00 06/11/19 10:55 Exelon Patch 4.6mg/24 Hours - TD 1 each DAILY [facility] Administration Hepatic Panel Total Bilirubin 0.3 mg/dL (0.2-1) 06/09/19 05:38 AST 21 U/L (15-37) 06/09/19 05:38 ALT 40 U/L (13-61) 06/09/19 05:38 Alkaline Phosphatase 74 U/L (45-117) 06/09/19 05:38 Albumin 2.3 g/dl (3.4-5.0) L 06/09/19 05:38 06/03/19 11:40 Blood - Peripheral Venous Blood Culture - Final NO GROWTH AFTER 5 DAYS INCUBATION 06/03/19 12:00 Blood - Peripheral Venous Blood Culture - Final NO GROWTH AFTER 5 DAYS INCUBATION 06/04/19 06:20 Sputum - Oropharynx Suctioned Sputum Gram Stain - Final 06/04/19 06:20 Sputum - Oropharynx Suctioned Sputum Sputum Culture - Final Yeast Like Organism 06/01/19 00:00 Blood - Peripheral Venous Blood Culture - Final NO GROWTH AFTER 5 DAYS INCUBATION 06/01/19 00:00 Blood - Peripheral Venous Blood Culture - Final Staph Capitis Subsp Ureolyticu 06/01/19 03:00 Urine For Antigen Detection Legionella Antigen - Final 06/01/19 03:00 Urine For Antigen Detection Streptococcus pneumoniae Antigen (M - Final 06/01/19 01:20 Urine - Urine - Catheterized Urine Culture - Final NO GROWTH OBTAINED Laboratory Tests 06/01/19 06/01/19 06/02/19 16:50 20:00 05:47 BUN 37.6 H 32.5 H Creatinine 1.3 1.1 Lactic Acid 3.6 H* Creatine Kinase 1578 H 954 H 06/02/19 06/04/19 05:47 06:30 BUN Creatinine Lactic Acid 1.5 Creatine Kinase 281 H Assessment and plan: Patient is an 79yof with h/o Parkinson Disease and dementia who presented with AMS. Patient is nonverbal. # Acute hypercapnic resp failure s/p extubation , comfortable now. cpap if needed. Cont steroids # Aspiration PNA continue IV zosyn, on steroid IV continue #Feeding NG-tube: continue but terminal press operator plan needed, possible peg tube placement # JOS: improved. # Rhabdo s/p IVF # Thrombocytopenia: resolved # h/o HTN # h/o DM: cont SSI # AMS: acute metabolic encephalopathy # h/o dementia # Microcytic anemia #contaminant blood cx # hx of Parkisonism cont Sinemet # yeast in sputum DVT px; heparin SQ. Continue current treatment. rehab placement once NG tube removed and alt means of feeding established.
--- NOTE | 2019-06-12 16:23 | PN ---
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, Physician History of Present Illness: POORLY RESPONSIVE BREATHING NON LABORED AFEBRILE SPUTUM YLO (CONTAMINANT) - Current Medication List Current Medications: Active Medications Acetylcysteine (Mucomyst 20 Oral / Inh Use Only*) 600 mg NEB RBID [facility]PL[facility] Last Admin: 06/12/19 08:35 Dose: Not Given Albuterol Sulfate (Ventolin 0.083% Nebulizer Soln -) 1 amp NEB Q6H PRN PRN Reason: SHORT OF BREATH/WHEEZING Carbidopa/Levodopa (Sinemet 25/100 -) 2 each PO TID@0700,1200,1900 [facility]PL[facility]ED [facility] Last Admin: 06/12/19 13:00 Dose: 2 each Heparin Sodium (Porcine) (Heparin -) 5,000 unit SQ TID [facility] Last Admin: 06/12/19 15:48 Dose: 5,000 unit Piperacillin Sod/Tazobactam (Sod 3.375 gm/ Dextrose) 50 mls @ 100 mls/hr IVPB Q8H-IV [facility]; Protocol Last Admin: 06/12/19 10:52 Dose: 100 mls/hr Insulin Aspart (Novolog Vial Sliding Scale -) 1 vial SQ ACHS [facility]; Protocol Last Admin: 06/12/19 12:38 Dose: Not Given Methylprednisolone Sodium Succinate (Solu-Medrol -) 20 mg IVPUSH BID [facility] Last Admin: 06/12/19 10:52 Dose: 20 mg Non-Formulary Medication (Rotigotine [Neupro]) 1 each TD DAILY [facility] Last Admin: 06/12/19 15:48 Dose: 1 each Pantoprazole Sodium (Protonix Iv) 40 mg IVPUSH DAILY [facility] Last Admin: 06/12/19 10:52 Dose: 40 mg Rivastigmine (Exelon Patch 4.6mg/24 Hours -) 1 each TD DAILY [facility] Last Admin: 06/12/19 10:55 Dose: 1 each - Objective Vital Signs: Vital Signs Temperature 98.6 F 06/12/19 14:40 Pulse Rate 67 06/12/19 14:40 Respiratory Rate 17 06/12/19 14:40 Blood Pressure 144/85 06/12/19 14:40 O2 Sat by Pulse Oximetry (%) 98 06/12/19 10:00 Constitutional: Yes: No Distress Eyes: Yes: Conjunctiva Clear Cardiovascular: Yes: Regular Rate and Rhythm, S1, S2 Respiratory: Yes: CTA Bilaterally, Diminished Gastrointestinal: Yes: Normal Bowel Sounds, Soft. No: Tenderness Labs: CBC, BMP 06/12/19 06:10 06/12/19 06:10 INR, PTT INR 1.16 (0.83-1.09) H 06/01/19 09:40 Assessment/Plan RESP FAILURE PNEUMONIA SEPSIS TOXIC METABOLIC ENCEPHALOPATHY LEUKOCYTOSIS RENAL INSUFFICIENCY PARKINSONISM/OBS DAY # 8 ZOSYN D/C ANTIBIOTIC, OBSERVE OFF
--- NOTE | 2019-06-12 16:33 | PN ---
Physical Exam: SUBJECTIVE: Patient seen and examined NAEON Breathing on RA. Minimally interactive on physical exam OBJECTIVE: Vital Signs Period Temp Pulse Resp BP Sys/Campbell Pulse Ox Last 24 Hr 97.5 F-98.6 F 67-78 17-24 119-144/61-85 95-98 GENERAL: Lethargic, off sedation for multiple days. No spontaneous motion. Mildly response to painful stimuli HEAD: NC/AT EYES: extraocular movements tracking movement briefly, sclera anicteric, conjunctiva clear. No ptosis. ENT: Ears normal, nares patent, NGT feed NECK: Trachea midline, full range of motion, supple. LUNGS: Breath sounds equal, mildly coarse BS bilaterally. Breathing on RA HEART: Regular rate and rhythm, S1, S2 without murmur, rub or gallop. ABDOMEN: Soft, nontender, nondistended, normoactive bowel sounds, no guarding, no rebound. EXTREMITIES: 2+ pulses, warm, well-perfused, no edema. BLE with nonpitting edema. DP2+ b/l NEUROLOGICAL: not opening eyes to pain, withdrawing BUE and BLE to painful stimuli. Not responding to questioning SKIN: Warm, dry, normal turgor, no rashes or lesions noted Laboratory Results - last 24 hr 06/11/19 06/11/19 06/12/19 17:21 23:13 05:52 WBC RBC Hgb Hct MCV MCH MCHC RDW Plt Count MPV Sodium Potassium Chloride Carbon Dioxide Anion Gap BUN Creatinine Est GFR (CKD-EPI)AfAm Est GFR (CKD-EPI)NonAf POC Glucometer 255 139 325 Random Glucose Calcium Phosphorus Magnesium 06/12/19 06/12/19 06/12/19 06:10 06:10 12:33 WBC 13.4 H RBC 4.58 Hgb 10.6 L Hct 33.0 MCV 72.0 L MCH 23.2 L MCHC 32.3 RDW 17.1 H Plt Count 423 MPV 9.1 Sodium 135 L Potassium 4.9 Chloride 101 Carbon Dioxide 29 Anion Gap 5 L BUN 20.0 H Creatinine 0.9 Est GFR (CKD-EPI)AfAm 69.50 Est GFR (CKD-EPI)NonAf 59.96 POC Glucometer 228 Random Glucose 318 H Calcium 8.2 L Phosphorus 2.8 Magnesium 2.0 Active Medications Generic Name Dose Route Start Last Admin Trade Name Freq PRN Reason Stop Dose Admin Acetylcysteine 600 mg 06/12/19 08:00 06/12/19 08:35 Mucomyst 20 Oral / Inh Use Only* NEB Not Given RBID [facility] Albuterol Sulfate 1 amp 06/12/19 16:13 Ventolin 0.083% Nebulizer Soln - NEB Q6H PRN SHORT OF BREATH/WHEEZING Carbidopa/Levodopa 2 each 06/12/19 07:00 06/12/19 13:00 Sinemet 25/100 - PO 2 each TID@0700,1200,1900 [facility] Administration Heparin Sodium (Porcine) 5,000 unit 06/11/19 22:00 06/12/19 15:48 Heparin - SQ 5,000 unit TID [facility] Administration Piperacillin Sod/Tazobactam 50 mls @ 100 mls/hr 06/12/19 02:00 06/12/19 10:52 Sod 3.375 gm/ Dextrose IVPB 100 mls/hr Q8H-IV [facility] Administration Protocol Insulin Aspart 1 vial 06/11/19 16:42 06/12/19 12:38 Novolog Vial Sliding Scale - SQ Not Given ACHS [facility] Protocol Methylprednisolone Sodium Succinate 20 mg 06/11/19 22:00 06/12/19 10:52 Solu-Medrol - IVPUSH 20 mg BID [facility] Administration Non-Formulary Medication 1 each 06/12/19 10:00 06/12/19 15:48 Rotigotine [Neupro] TD 1 each DAILY [facility] Administration Pantoprazole Sodium 40 mg 06/12/19 10:00 06/12/19 10:52 Protonix Iv IVPUSH 40 mg DAILY [facility] Administration Rivastigmine 1 each 06/12/19 10:00 06/12/19 10:55 Exelon Patch 4.6mg/24 Hours - TD 1 each DAILY [facility] Administration ASSESSMENT/PLAN: 79y/o female with Parkinson's and dementia who presents with AMS and cough x 4 days. At baseline she is non-ambulatory and mental status changes from day to day (some days she is alert and oriented, can speak sentences, other days she does not speak at all). Pt was hypoxic to the 80s at ED presentation. Intubated for increased work of breathing. Flu negative. Possibly had aspiration PNA. Atelectasis vs infiltrate at Left base. Extubated on 1/14. Repeat CTH on by Neuro, w/o significant interval change; possibly chronic and superimposed sinusitis of Left maxillary antrum and sphenoid sinus. Persistent hyperglycemia prompted change of Jevity to Glucerna. Discuss with family, GOC on 06/12/19. Daughter expresses desire to avoid PEG, has strong belief that optimization of Parkinson's and Dementia drugs will help pt resolve AMS. #acute hypoxic respiratory failure 2/2 multilobar PNA and sepsis -CXR improved post-intubation > CXR(06/08/19): Left base w/ minimal atelectasis, sharp rib angles > flu: negative > Echo: normal EF, impaired relaxation, elevated filling pressures, TR, MR -duonebs TID -solumedrol 20mg IVP BID -zosyn 3.375g Q8H --day#7 -ID following #AMS toxic metabolic encephalopathy vs less likely CVA -CT head negative for acute processes -CT H(06/11/19): no significant change, possible chronic/superimposed Left maxillary sinusitis -urine cx negative -blood cx(06/01/19)- Staph coag negative in 1 bottle -blood cx(06/03/19): NGTD -dietary following -speech following #sacral skin tear -surgery consulted- management per note #leukocytosis -from infection vs steroid use -mild improvement continues -continue monitor #JOS, resolved -nephro following -Cardio following --diovan held --BP stable #anemia of chronic disease -microcytosis but low TIBC, unsaturated IBC, and high ferritin #Parkinson's and dementia -continue Sinimet, modified dose for NG tube, @0700, 1200, 1900 -rivostigmine patch -rotigotine patch #mild hypophosphatemia, resolved #lactic acidosis, resolved #transaminitis, improved DVT ppx SQH GI ppx protonix FEN monitor labs NG feeds: Glucerna Visit type - Emergency Visit Emergency Visit: No - New Patient This patient is new to me today: No - Critical Care Critical Care patient: No ATTENDING PHYSICIAN STATEMENT I saw and evaluated the patient. I reviewed the resident's note and discussed the case with the resident. I agree with the resident's findings and plan as documented. SUBJECTIVE: OBJECTIVE: ASSESSMENT AND PLAN:
[2019-06-12] MEDS: ALBUTEROL SO4 0.083% IH SOL 2.5 MG/3 ML VIAL.NEB. NEB PRN (21:35)
[2019-06-13] MEDS ORDERED: DEXTROSE 5%-WATER - 50 ML IVPB ONE ×2 (01:18→08:35)
[2019-06-13] MEDS ORDERED: PIPERACILLIN/TAZOBACTAM 3.375 GM VIAL IVPB ONE ×2 (01:18→08:35)
[2019-06-13] MEDS: PIPERACILLIN/TAZOB 3.375 GM 3.375 GM in DEXTROSE 5%-WATER - 50 ML IVPB SCH ×2 (01:20→09:54)
[2019-06-13] MEDS: HEPARIN NA (PORCINE) 5,000 UNITS/ML 1ML VIAL SQ SCH ×3 (06:30→22:49)
[2019-06-13] MEDS: CARBIDOPA/LEVODOPA 25/100 TABLET (FP) PO SCH ×3 (06:31→17:59)
[2019-06-13] MEDS: INSULIN SLIDING SCALE (NOVOLOG) 1 VIAL SQ SCH ×5 (06:46→22:50)
[2019-06-13 08:56] LABS: HEMATOCRIT 32.6 % (32.4-45.2); HEMOGLOBIN 10.3 GM/dL (10.7-15.3); MCH 22.8 pg (25.7-33.7); MCHC 31.4 g/dl (32.0-36.0); MEAN CELL VOLUME 72.5 fl (80-96); MEAN PLT VOLUME 9.3 fl (7.5-11.1); PLATELET COUNT 412 K/MM3 (134-434); RDW 17.4 % (11.6-15.6); WHITE BLOOD COUNT 13.9 K/mm3 (4.0-10.0)
[2019-06-13 09:27] LABS: BLOOD UREA NITROGEN 19.5 mg/dL (7-18); CALCIUM 8.6 mg/dL (8.5-10.1); CREATININE 0.8 mg/dL (0.55-1.3); MAGNESIUM 2.2 mg/dL (1.8-2.4); PHOSPHOROUS 3.2 mg/dL (2.5-4.9); POTASSIUM 4.5 mmol/L (3.5-5.1)
[2019-06-13] MEDS: methylPREDNISolone NA SUCC 40 MG/1 ML VIAL IVPUSH SCH ×2 (09:54→22:49)
[2019-06-13] MEDS: PANTOPRAZOLE SODIUM 40 MG VIAL IVPUSH SCH (09:54)
[2019-06-13] MEDS: RIVASTIGMINE 4.6 MG/24 HOURS TRANSDERMAL PATCH TD SCH (09:57)
--- NOTE | 2019-06-13 10:30 | PN ---
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 (short form) - Note 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: Neurology CHIEF COMPLAINT: AMS PCP: None HISTORY OF PRESENT ILLNESS: Ms. Prescott is an 79 year old female with PMH of Parkinson Disease and dementia who was BIBEMS with AMS x4 days at time of admission. Daughter was at bedside and that time and provided history. Pt lives at home (no MOLD CUTTING MACHINE OPERATOR or VNS) with daughter as primary check viewer. At baseline she is non-ambulatory and mental status changes from day to day (some days she is alert and oriented, can speak sentences, other days she does not speak at all). Pt has had a productive cough of yellow sputum for 4 days before day of admission and has become increasingly confused and somnolent. Decreased appetite, unable to eat or drink anything. On day of admission, she was not responding at all and had a low grade fever. Daughter stated that pt has not complained of any symptoms (chest pain, abd pain , SOB, urinary complaints). On arrival to ED, pt was hypoxic in the 80s. Patient consulted for altered mental status. Ct of head reviewed and showed no evidence of a focal intracranial lesion or hemorrhage completed on 06/01 at the time of admission. Patient downgraded from ICU and currently on telemetry floor. Still sluggish, not following all commands but able to open her eyes briefly. Mental status may be limited due to underlying infection and recently was intubated and extubated. Repeat CT head without acute changes. ID note reviewed, received ZOsyn, now being monitored off Abx. Active Medications Acetylcysteine (Mucomyst 20 Oral / Inh Use Only*) 600 mg NEB RBID [facility] Last Admin: 06/12/19 08:35 Dose: Not Given Albuterol Sulfate (Ventolin 0.083% Nebulizer Soln -) 1 amp NEB Q6H PRN PRN Reason: SHORT OF BREATH/WHEEZING Last Admin: 06/12/19 21:35 Dose: 1 amp Carbidopa/Levodopa (Sinemet 25/100 -) 2 each PO TID@0700,1200,1900 [facility] Last Admin: 06/13/19 06:31 Dose: 2 each Heparin Sodium (Porcine) (Heparin -) 5,000 unit SQ TID [facility] Last Admin: 06/13/19 06:30 Dose: 5,000 unit Piperacillin Sod/Tazobactam (Sod 3.375 gm/ Dextrose) 50 mls @ 100 mls/hr IVPB Q8H-IV [facility]; Protocol Last Admin: 06/13/19 09:54 Dose: 100 mls/hr Insulin Aspart (Novolog Vial Sliding Scale -) 1 vial SQ ACHS [facility]; Protocol Last Admin: 06/13/19 07:05 Dose: 6 units Methylprednisolone Sodium Succinate (Solu-Medrol -) 20 mg IVPUSH BID [facility] Last Admin: 06/13/19 09:54 Dose: 20 mg Non-Formulary Medication (Rotigotine [Neupro]) 1 each TD DAILY [facility] Last Admin: 06/12/19 15:48 Dose: 1 each Pantoprazole Sodium (Protonix Iv) 40 mg IVPUSH DAILY [facility] Last Admin: 06/13/19 09:54 Dose: 40 mg Rivastigmine (Exelon Patch 4.6mg/24 Hours -) 1 each TD DAILY [facility] Last Admin: 06/13/19 09:57 Dose: 1 each PHYSICAL EXAMINATION Vital Signs Period Temp Pulse Resp BP Sys/Campbell Pulse Ox Last 24 Hr 97.0 F-98.6 F 67-86 17-20 103-152/61-93 96-98 GENERAL: Somnolent, slightly responsive to sternal rub. HEAD: Normal with no signs of trauma. EYES: Pupils equal, round and reactive to light, extraocular movements intact, sclera anicteric, conjunctiva clear. No lid lag. EARS, NOSE, THROAT: Ears normal, nares patent, oropharynx clear without exudates. Dry mucous membranes. NECK: Normal range of motion, supple without lymphadenopathy, JVD, or masses. LUNGS: Inspiratory and expiratory wheezes throughout, accessory muscle use. HEART: Regular rate and rhythm, normal S1 and S2 without murmur, rub or gallop. ABDOMEN: Soft, nontender, not distended, normoactive bowel sounds, no guarding, no rebound, no masses. No hepatomegaly or splenomegaly. MUSCULOSKELETAL: Normal range of motion at all joints. No bony deformities or tenderness. No CVA tenderness. UPPER EXTREMITIES: 2+ pulses, warm, well-perfused. No cyanosis. No clubbing. No peripheral edema. LOWER EXTREMITIES: 2+ pulses, warm, well-perfused. No calf tenderness. No peripheral edema. NEUROLOGICAL: Unable to assess 2/2 mental status. PSYCHIATRIC: Cooperative. Good eye contact. Appropriate mood and affect. SKIN: Warm, dry, normal turgor, normal capillary refill. Sacral decubitus ulcer with sloughing skin and erythema. CBCD WBC 13.9 K/mm3 (4.0-10.0) H 06/13/19 08:35 RBC 4.50 M/mm3 (3.60-5.2) 06/13/19 08:35 Hgb 10.3 GM/dL (10.7-15.3) L 06/13/19 08:35 Hct 32.6 % (32.4-45.2) 06/13/19 08:35 MCV 72.5 fl (80-96) L 06/13/19 08:35 MCHC 31.4 g/dl (32.0-36.0) L 06/13/19 08:35 RDW 17.4 % (11.6-15.6) H 06/13/19 08:35 Plt Count 412 K/MM3 (134-434) 06/13/19 08:35 MPV 9.3 fl (7.5-11.1) 06/13/19 08:35 CMP Sodium 137 mmol/L (136-145) 06/13/19 08:35 Potassium 4.5 mmol/L (3.5-5.1) 06/13/19 08:35 Chloride 101 mmol/L (98-107) 06/13/19 08:35 Carbon Dioxide 31 mmol/L (21-32) 06/13/19 08:35 Anion Gap 5 MMOL/L (8-16) L 06/13/19 08:35 BUN 19.5 mg/dL (7-18) H 06/13/19 08:35 Creatinine 0.8 mg/dL (0.55-1.3) 06/13/19 08:35 Random Glucose 210 mg/dL (74-106) H 06/13/19 08:35 Calcium 8.6 mg/dL (8.5-10.1) 06/13/19 08:35 Total Bilirubin 0.3 mg/dL (0.2-1) 06/09/19 05:38 AST 21 U/L (15-37) 06/09/19 05:38 ALT 40 U/L (13-61) 06/09/19 05:38 Alkaline Phosphatase 74 U/L (45-117) 06/09/19 05:38 Total Protein 6.2 g/dl (6.4-8.2) L 06/09/19 05:38 Albumin 2.3 g/dl (3.4-5.0) L 06/09/19 05:38 CARDIAC ENZYMES Creatine Kinase 281 U/L (26-192) H 06/04/19 06:30 Troponin I < 0.02 ng/ml (0.00-0.05) 06/01/19 04:07 ASSESSMENT/PLAN: Ms. Prescott is an 79 year old female with PMH of Parkinson Disease and dementia who was BIBEMS with AMS x4 days at time of admission. Daughter was at bedside and that time and provided history. Pt lives at home (no MOLD CUTTING MACHINE OPERATOR or VNS) with daughter as primary check viewer. At baseline she is non-ambulatory and mental status changes from day to day (some days she is alert and oriented, can speak sentences, other days she does not speak at all). Pt has had a productive cough of yellow sputum for 4 days before day of admission and has become increasingly confused and somnolent. Decreased appetite, unable to eat or drink anything. On day of admission, she was not responding at all and had a low grade fever. Daughter stated that pt has not complained of any symptoms (chest pain, abd pain , SOB, urinary complaints). On arrival to ED, pt was hypoxic in the 80s. Patient consulted for altered mental status. Ct of head reviewed and showed no evidence of a focal intracranial lesion or hemorrhage completed on 06/01 at the time of admission. Patient downgraded from ICU and currently on telemetry floor. Slightly more awake this morning, not following all commands but able to open her eyes briefly. Mental status may be limited due to underlying infection and recently was intubated and extubated. Repeat CT head without acute changes. Requires further medical management and optimization,, continued elevation in white count indicating possible persistent infectious etiology. ID note reviewed, received ZOsyn, now being monitored off Abx. Maintain adequate hydration, frequent orientation whenever able. Consider SNF placement if able.
--- NOTE | 2019-06-13 11:49 | PN ---
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 (short form) - Note 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: s: sleeping, not rousable Current Medications Generic Name Dose Route Start Last Admin Trade Name Freq PRN Reason Stop Dose Admin Acetylcysteine 600 mg 06/12/19 08:00 06/12/19 08:35 Mucomyst 20 Oral / Inh Use Only* NEB Not Given RBID [facility] Albuterol Sulfate 1 amp 06/12/19 16:13 06/12/19 21:35 Ventolin 0.083% Nebulizer Soln - NEB 1 amp Q6H PRN Administration SHORT OF BREATH/WHEEZING Carbidopa/Levodopa 2 each 06/12/19 07:00 06/13/19 06:31 Sinemet 25/100 - PO 2 each TID@0700,1200,1900 [facility] Administration Heparin Sodium (Porcine) 5,000 unit 06/11/19 22:00 06/13/19 06:30 Heparin - SQ 5,000 unit TID [facility] Administration Piperacillin Sod/Tazobactam 50 mls @ 100 mls/hr 06/12/19 02:00 06/13/19 09:54 Sod 3.375 gm/ Dextrose IVPB 100 mls/hr Q8H-IV [facility] Administration Protocol Insulin Aspart 1 vial 06/11/19 16:42 06/13/19 11:38 Novolog Vial Sliding Scale - SQ Not Given ACHS [facility] Protocol Methylprednisolone Sodium Succinate 20 mg 06/11/19 22:00 06/13/19 09:54 Solu-Medrol - IVPUSH 20 mg BID [facility] Administration Non-Formulary Medication 1 each 06/12/19 10:00 06/12/19 15:48 Rotigotine [Neupro] TD 1 each DAILY [facility] Administration Pantoprazole Sodium 40 mg 06/12/19 10:00 06/13/19 09:54 Protonix Iv IVPUSH 40 mg DAILY [facility] Administration Rivastigmine 1 each 06/12/19 10:00 06/13/19 09:57 Exelon Patch 4.6mg/24 Hours - TD 1 each DAILY [facility] Administration Vital Signs Period Temp Pulse Resp BP Sys/Campbell Pulse Ox Last 24 Hr 97.0 F-98.6 F 67-86 17-20 103-152/61-93 96-98 Constitutional: Yes: No Distress, Calm Neck: Yes: Supple, Trachea Midline Respiratory: Yes: Regular, Diminished Gastrointestinal: Yes: Normal Bowel Sounds, Soft Cardiovascular: Yes: Regular Rate and Rhythm JVD: No Extremities: No: Cold Edema: No Integumentary: No: Jaundice Neurological: Yes: Lethargy Psychiatric: No: Agitated CBC, BMP 06/13/19 08:35 06/13/19 08:35 echo 05/2019 nl LV/RV function, impaired relaxation, elevated filling pressures, RV not well visualized, mild to mod MR, mild mod TR CXR: no congestion/effusions (+ atx) tele: sr PNA, sepsis, acute respiratory failure 2/2 suspected aspiration: - manage per critical care, ID; - intubated after suspected aspiration event, now extubated - nl LV function on echo HTN: - stable DM: - manage per primary dementia, parkinson's: - manage per primary JOS, rhabdo: - renal fxn improved, off IVF dc tele
[2019-06-13] MEDS: PATIENT'S OWN MEDICATION (NON-FORMULARY) (Rotigotine [Neupro] 1 EACH) TD SCH (12:04)
--- NOTE | 2019-06-13 15:12 | PN ---
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 (short form) - Note 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: PULMONARY Pt nonverbal. No fevers recorded. Vital Signs Period Temp Pulse Resp BP Sys/Campbell Pulse Ox Last 24 Hr 97.0 F-98.0 F 67-86 17-20 103-152/61-93 96-98 Gen: NAD at rest Heart: RRR Lung: scattered rhonchi Abd: soft, nontender Ext: no edema CBC, BMP 06/13/19 08:35 06/13/19 08:35 Active Medications Acetylcysteine (Mucomyst 20 Oral / Inh Use Only*) 600 mg NEB RBID [facility] Last Admin: 06/12/19 08:35 Dose: Not Given Albuterol Sulfate (Ventolin 0.083% Nebulizer Soln -) 1 amp NEB Q6H PRN PRN Reason: SHORT OF BREATH/WHEEZING Last Admin: 06/12/19 21:35 Dose: 1 amp Carbidopa/Levodopa (Sinemet 25/100 -) 2 each PO TID@0700,1200,1900 [facility] Last Admin: 06/13/19 12:04 Dose: 2 each Heparin Sodium (Porcine) (Heparin -) 5,000 unit SQ TID [facility] Last Admin: 06/13/19 14:03 Dose: 5,000 unit Piperacillin Sod/Tazobactam (Sod 3.375 gm/ Dextrose) 50 mls @ 100 mls/hr IVPB Q8H-IV [facility]; Protocol Last Admin: 06/13/19 09:54 Dose: 100 mls/hr Insulin Aspart (Novolog Vial Sliding Scale -) 1 vial SQ ACHS [facility]; Protocol Last Admin: 06/13/19 11:38 Dose: Not Given Methylprednisolone Sodium Succinate (Solu-Medrol -) 20 mg IVPUSH BID [facility] Last Admin: 06/13/19 09:54 Dose: 20 mg Non-Formulary Medication (Rotigotine [Neupro]) 1 each TD DAILY [facility] Last Admin: 06/13/19 12:04 Dose: 1 each Pantoprazole Sodium (Protonix Iv) 40 mg IVPUSH DAILY [facility] Last Admin: 06/13/19 09:54 Dose: 40 mg Rivastigmine (Exelon Patch 4.6mg/24 Hours -) 1 each TD DAILY [facility] Last Admin: 06/13/19 09:57 Dose: 1 each A/P Acute Hypercapneic Respiratory Failure improving Pneumonia likely Aspiration Sepsis Lactic Acidosis Acute Kidney Injury HTN DM Parkinsons Dementia - continue antibiotics - taper medrol - inhaled bronchodilators - o2 to keep SpO2 >90% - aspiration precautions - DVT prophylaxis
--- NOTE | 2019-06-13 15:47 | PN ---
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 (short form) - Note Progress Note: Patient is comfortable with no acute distress. Vital Signs Temperature 97 F L 06/13/19 14:00 Pulse Rate 57 L 06/13/19 14:00 Respiratory Rate 20 06/13/19 14:00 Blood Pressure 143/74 06/13/19 14:00 O2 Sat by Pulse Oximetry (%) 96 06/13/19 08:15 GENERAL: The patient is lethargic. in no acute distress. HEAD: Normal with no signs of trauma. EYES: PERRL, extraocular movements intact, sclera anicteric, conjunctiva clear. ENT: Ears normal, oropharynx clear without exudates, moist mucous membranes. +NG -tube feeding NECK: Trachea midline, full range of motion, supple. LUNGS: decreased Breath sounds bl, no wheezes, no crackles, no accessory muscle use. HEART: Regular rate and rhythm, S1, S2 without murmur, rub or gallop. ABDOMEN: Soft, NT,ND, normoactive bowel sounds, no guarding, no rebound, no hepatosplenomegaly, no masses. EXTREMITIES: 2+ pulses, warm, well-perfused, 1+ edema b/l NEUROLOGICAL: Cranial nerves II through XII grossly intact. Normal speech, gait not observed. PSYCH: Normal mood, normal affect. SKIN: Warm, dry, normal turgor, no rashes or lesions noted CBCD WBC 13.9 K/mm3 (4.0-10.0) H 06/13/19 08:35 RBC 4.50 M/mm3 (3.60-5.2) 06/13/19 08:35 Hgb 10.3 GM/dL (10.7-15.3) L 06/13/19 08:35 Hct 32.6 % (32.4-45.2) 06/13/19 08:35 MCV 72.5 fl (80-96) L 06/13/19 08:35 MCHC 31.4 g/dl (32.0-36.0) L 06/13/19 08:35 RDW 17.4 % (11.6-15.6) H 06/13/19 08:35 Plt Count 412 K/MM3 (134-434) 06/13/19 08:35 MPV 9.3 fl (7.5-11.1) 06/13/19 08:35 CMP Sodium 137 mmol/L (136-145) 06/13/19 08:35 Potassium 4.5 mmol/L (3.5-5.1) 06/13/19 08:35 Chloride 101 mmol/L (98-107) 06/13/19 08:35 Carbon Dioxide 31 mmol/L (21-32) 06/13/19 08:35 Anion Gap 5 MMOL/L (8-16) L 06/13/19 08:35 BUN 19.5 mg/dL (7-18) H 06/13/19 08:35 Creatinine 0.8 mg/dL (0.55-1.3) 06/13/19 08:35 Random Glucose 210 mg/dL (74-106) H 06/13/19 08:35 Calcium 8.6 mg/dL (8.5-10.1) 06/13/19 08:35 Total Bilirubin 0.3 mg/dL (0.2-1) 06/09/19 05:38 AST 21 U/L (15-37) 06/09/19 05:38 ALT 40 U/L (13-61) 06/09/19 05:38 Alkaline Phosphatase 74 U/L (45-117) 06/09/19 05:38 Total Protein 6.2 g/dl (6.4-8.2) L 06/09/19 05:38 Albumin 2.3 g/dl (3.4-5.0) L 06/09/19 05:38 CARDIAC ENZYMES Creatine Kinase 281 U/L (26-192) H 06/04/19 06:30 Troponin I < 0.02 ng/ml (0.00-0.05) 06/01/19 04:07 Current Medications Generic Name Dose Route Start Last Admin Trade Name Freq PRN Reason Stop Dose Admin Acetylcysteine 600 mg 06/12/19 08:00 06/12/19 08:35 Mucomyst 20 Oral / Inh Use Only* NEB Not Given RBID [facility] Albuterol Sulfate 1 amp 06/12/19 16:13 06/12/19 21:35 Ventolin 0.083% Nebulizer Soln - NEB 1 amp Q6H PRN Administration SHORT OF BREATH/WHEEZING Carbidopa/Levodopa 2 each 06/12/19 07:00 06/13/19 12:04 Sinemet 25/100 - PO 2 each TID@0700,1200,1900 [facility] Administration Heparin Sodium (Porcine) 5,000 unit 06/11/19 22:00 06/13/19 14:03 Heparin - SQ 5,000 unit TID [facility] Administration Insulin Aspart 1 vial 06/11/19 16:42 06/13/19 11:38 Novolog Vial Sliding Scale - SQ Not Given ACHS [facility] Protocol Methylprednisolone Sodium Succinate 20 mg 06/11/19 22:00 06/13/19 09:54 Solu-Medrol - IVPUSH 20 mg BID [facility] Administration Non-Formulary Medication 1 each 06/12/19 10:00 06/13/19 12:04 Rotigotine [Neupro] TD 1 each DAILY [facility] Administration Pantoprazole Sodium 40 mg 06/12/19 10:00 06/13/19 09:54 Protonix Iv IVPUSH 40 mg DAILY [facility] Administration Rivastigmine 1 each 06/12/19 10:00 06/13/19 09:57 Exelon Patch 4.6mg/24 Hours - TD 1 each DAILY [facility] Administration Home Medications Medication Instructions Recorded Ca/D3/Mag Ox/Zinc/Chemistry Technical Officer/Ketan/Bor 1 each PO HS 04/13/18 [Calcium 600-D3 Plus Caplet] Carbidopa/Levodopa [Carbidopa-Levo 1 each PO TID 04/13/18 ER 50-200 Tab] Aspirin 81 mg PO DAILY 06/01/19 Melatonin 5 mg PO HS 06/01/19 Olanzapine [Zyprexa -] 7.5 mg PO DAILY 06/01/19 Omeprazole 20 mg PO DAILY 06/01/19 Rivastigmine [Exelon Patch 1 each TD DAILY 06/01/19 4.6MG/24 Hours] Rotigotine [Neupro] 1 each TD DAILY 06/01/19 06/03/19 11:40 Blood - Peripheral Venous Blood Culture - Final NO GROWTH AFTER 5 DAYS INCUBATION 06/03/19 12:00 Blood - Peripheral Venous Blood Culture - Final NO GROWTH AFTER 5 DAYS INCUBATION 06/04/19 06:20 Sputum - Oropharynx Suctioned Sputum Gram Stain - Final 06/04/19 06:20 Sputum - Oropharynx Suctioned Sputum Sputum Culture - Final Yeast Like Organism 06/01/19 00:00 Blood - Peripheral Venous Blood Culture - Final NO GROWTH AFTER 5 DAYS INCUBATION 06/01/19 00:00 Blood - Peripheral Venous Blood Culture - Final Staph Capitis Subsp Ureolyticu 06/01/19 03:00 Urine For Antigen Detection Legionella Antigen - Final 06/01/19 03:00 Urine For Antigen Detection Streptococcus pneumoniae Antigen (M - Final 06/01/19 01:20 Urine - Urine - Catheterized Urine Culture - Final NO GROWTH OBTAINED Laboratory Tests 06/01/19 06/01/19 06/02/19 16:50 20:00 05:47 BUN 37.6 H 32.5 H Creatinine 1.3 1.1 Lactic Acid 3.6 H* Creatine Kinase 1578 H 954 H 06/02/19 06/04/19 05:47 06:30 BUN Creatinine Lactic Acid 1.5 Creatine Kinase 281 H Assessment and plan: Patient is an 79yof with h/o Parkinson Disease and dementia who presented with AMS. Patient is nonverbal. # Acute hypercapnic resp failure s/p extubation , comfortable now. cpap if needed. Cont steroids # Aspiration PNA : day 8 zosyn , stopped by Ids request , will monitor off IV zosyn, on steroid IV continue #Feeding NG-tube: detention plan needed, will discuss with the family # JOS: improved. # Rhabdo s/p IVF # Thrombocytopenia: resolved # h/o HTN # h/o DM: cont SSI # AMS: acute metabolic encephalopathy # h/o dementia # Microcytic anemia #contaminant blood cx # hx of Parkisonism cont Sinemet # yeast in sputum DVT px; heparin SQ. Continue current treatment. will need a long plan possible peg vs G-tube , will discuss with the family Visit type - Emergency Visit Emergency Visit: Yes ED Registration Date: 06/01/19 Care time: The patient presented to the Emergency Department on the above date and was hospitalized for further evaluation of their emergent condition. - New Patient This patient is new to me today: No - Critical Care Critical Care patient: No - Discharge Referral Referred to [facility] Med P.C.: No
[2019-06-13] MEDS ORDERED: ACETYLCYSTEINE 20% 200MG/ML 4 ML VIAL *FOR ORAL / INH USE ONLY ONE (20:24)
[2019-06-13] MEDS: ALBUTEROL SO4 0.083% IH SOL 2.5 MG/3 ML VIAL.NEB. NEB PRN (20:35)
[2019-06-13] MEDS ORDERED: PT OWN MED DRAWER 7, Y5N ONE (21:16)
[2019-06-14] MEDS: CARBIDOPA/LEVODOPA 25/100 TABLET (FP) PO SCH ×5 (06:44→22:03)
[2019-06-14] MEDS: INSULIN SLIDING SCALE (NOVOLOG) 1 VIAL SQ SCH ×6 (06:52→23:03)
[2019-06-14] MEDS: HEPARIN NA (PORCINE) 5,000 UNITS/ML 1ML VIAL SQ SCH ×3 (06:54→22:55)
--- NOTE | 2019-06-14 10:14 | PN ---
Progress Note (short form) - Note Progress Note: s: sleeping, not rousable Current Medications Generic Name Dose Route Start Last Admin Trade Name Freq PRN Reason Stop Dose Admin Acetylcysteine 600 mg 06/12/19 08:00 06/12/19 08:35 Mucomyst 20 Oral / Inh Use Only* NEB Not Given RBID [facility] Albuterol Sulfate 1 amp 06/12/19 16:13 06/13/19 20:35 Ventolin 0.083% Nebulizer Soln - NEB 1 amp Q6H PRN Administration SHORT OF BREATH/WHEEZING Carbidopa/Levodopa 2 each 06/12/19 07:00 06/14/19 06:44 Sinemet 25/100 - PO 2 each TID@0700,1200,1900 [facility] Administration Heparin Sodium (Porcine) 5,000 unit 06/11/19 22:00 06/14/19 06:54 Heparin - SQ 5,000 unit TID [facility] Administration Insulin Aspart 1 vial 06/11/19 16:42 06/14/19 06:52 Novolog Vial Sliding Scale - SQ Not Given ACHS [facility] Protocol Methylprednisolone Sodium Succinate 20 mg 06/11/19 22:00 06/13/19 22:49 Solu-Medrol - IVPUSH 20 mg BID [facility] Administration Non-Formulary Medication 1 each 06/12/19 10:00 06/13/19 12:04 Rotigotine [Neupro] TD 1 each DAILY [facility] Administration Pantoprazole Sodium 40 mg 06/12/19 10:00 06/13/19 09:54 Protonix Iv IVPUSH 40 mg DAILY [facility] Administration Rivastigmine 1 each 06/12/19 10:00 06/13/19 09:57 Exelon Patch 4.6mg/24 Hours - TD 1 each DAILY [facility] Administration Vital Signs Period Temp Pulse Resp BP Sys/Campbell Pulse Ox Last 24 Hr 97 F-97 F 50-63 20-20 104-143/64-82 95-96 Constitutional: Yes: No Distress, Calm Neck: Yes: Supple, Trachea Midline Respiratory: Yes: Regular, Diminished Gastrointestinal: Yes: Normal Bowel Sounds, Soft Cardiovascular: Yes: Regular Rate and Rhythm JVD: No Extremities: No: Cold Edema: No Integumentary: No: Jaundice Neurological: Yes: Lethargy Psychiatric: No: Agitated CBC, BMP 06/13/19 08:35 06/13/19 08:35 echo 05/2019 nl LV/RV function, impaired relaxation, elevated filling pressures, RV not well visualized, mild to mod MR, mild mod TR CXR: no congestion/effusions (+ atx) tele: sr PNA, sepsis, acute respiratory failure 2/2 suspected aspiration: - manage per critical care, ID; - intubated after suspected aspiration event, now extubated - nl LV function on echo HTN: - stable DM: - manage per primary dementia, parkinson's: - manage per primary JOS, rhabdo: - renal fxn improved, off IVF
--- NOTE | 2019-06-14 10:16 | PN ---
Progress Note (short form) - Note Progress Note: Neurology CHIEF COMPLAINT: AMS PCP: None HISTORY OF PRESENT ILLNESS: Ms. Prescott is an 79 year old female with PMH of Parkinson Disease and dementia who was BIBEMS with AMS x4 days at time of admission. Daughter was at bedside and that time and provided history. 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 At baseline she is non-ambulatory and mental status changes from day to day (some days she is alert and oriented, can speak sentences, other days she does not speak at all). Pt has had a productive cough of yellow sputum for 4 days before day of admission and has become increasingly confused and somnolent. Decreased appetite, unable to eat or drink anything. On day of admission, she was not responding at all and had a low grade fever. Daughter stated that pt has not complained of any symptoms (chest pain, abd pain , SOB, urinary complaints). On arrival to ED, pt was hypoxic in the 80s. Patient consulted for altered mental status. Ct of head reviewed and showed no evidence of a focal intracranial lesion or hemorrhage completed on 06/01 at the time of admission. Patient downgraded from ICU and currently on telemetry floor. Still sluggish, not following all commands but able to open her eyes briefly. Mental status appears to remain stable without ssignificant improvement. Repeat CT head without acute changes. ID note reviewed, received ZOsyn, now being monitored off Abx. Remains on Sinemet as well as Exelon patch for Parkinson's Active Medications Acetylcysteine (Mucomyst 20 Oral / Inh Use Only*) 600 mg NEB RBID [facility] Last Admin: 06/12/19 08:35 Dose: Not Given Albuterol Sulfate (Ventolin 0.083% Nebulizer Soln -) 1 amp NEB Q6H PRN PRN Reason: SHORT OF BREATH/WHEEZING Last Admin: 06/13/19 20:35 Dose: 1 amp Carbidopa/Levodopa (Sinemet 25/100 -) 2 each PO TID@0700,1200,1900 [facility] Last Admin: 06/14/19 06:44 Dose: 2 each Heparin Sodium (Porcine) (Heparin -) 5,000 unit SQ TID [facility] Last Admin: 06/14/19 06:54 Dose: 5,000 unit Insulin Aspart (Novolog Vial Sliding Scale -) 1 vial SQ ACHS [facility]; Protocol Last Admin: 06/14/19 06:52 Dose: Not Given Methylprednisolone Sodium Succinate (Solu-Medrol -) 20 mg IVPUSH BID [facility] Last Admin: 06/13/19 22:49 Dose: 20 mg Non-Formulary Medication (Rotigotine [Neupro]) 1 each TD DAILY [facility] Last Admin: 06/13/19 12:04 Dose: 1 each Pantoprazole Sodium (Protonix Iv) 40 mg IVPUSH DAILY [facility] Last Admin: 06/13/19 09:54 Dose: 40 mg Rivastigmine (Exelon Patch 4.6mg/24 Hours -) 1 each TD DAILY [facility] Last Admin: 06/13/19 09:57 Dose: 1 each PHYSICAL EXAMINATION Vital Signs Period Temp Pulse Resp BP Sys/Campbell Pulse Ox Last 24 Hr 97 F-97 F 50-63 20-20 104-143/64-82 95-96 GENERAL: Somnolent, slightly responsive to sternal rub. HEAD: Normal with no signs of trauma. EYES: Pupils equal, round and reactive to light, extraocular movements intact, sclera anicteric, conjunctiva clear. No lid lag. EARS, NOSE, THROAT: Ears normal, nares patent, oropharynx clear without exudates. Dry mucous membranes. NECK: Normal range of motion, supple without lymphadenopathy, JVD, or masses. LUNGS: Inspiratory and expiratory wheezes throughout, accessory muscle use. HEART: Regular rate and rhythm, normal S1 and S2 without murmur, rub or gallop. ABDOMEN: Soft, nontender, not distended, normoactive bowel sounds, no guarding, no rebound, no masses. No hepatomegaly or splenomegaly. MUSCULOSKELETAL: Normal range of motion at all joints. No bony deformities or tenderness. No CVA tenderness. UPPER EXTREMITIES: 2+ pulses, warm, well-perfused. No cyanosis. No clubbing. No peripheral edema. LOWER EXTREMITIES: 2+ pulses, warm, well-perfused. No calf tenderness. No peripheral edema. NEUROLOGICAL: Unable to assess 2/2 mental status. PSYCHIATRIC: Cooperative. Good eye contact. Appropriate mood and affect. SKIN: Warm, dry, normal turgor, normal capillary refill. Sacral decubitus ulcer with sloughing skin and erythema. CBCD WBC 13.9 K/mm3 (4.0-10.0) H 06/13/19 08:35 RBC 4.50 M/mm3 (3.60-5.2) 06/13/19 08:35 Hgb 10.3 GM/dL (10.7-15.3) L 06/13/19 08:35 Hct 32.6 % (32.4-45.2) 06/13/19 08:35 MCV 72.5 fl (80-96) L 06/13/19 08:35 MCHC 31.4 g/dl (32.0-36.0) L 06/13/19 08:35 RDW 17.4 % (11.6-15.6) H 06/13/19 08:35 Plt Count 412 K/MM3 (134-434) 06/13/19 08:35 MPV 9.3 fl (7.5-11.1) 06/13/19 08:35 CMP Sodium 137 mmol/L (136-145) 06/13/19 08:35 Potassium 4.5 mmol/L (3.5-5.1) 06/13/19 08:35 Chloride 101 mmol/L (98-107) 06/13/19 08:35 Carbon Dioxide 31 mmol/L (21-32) 06/13/19 08:35 Anion Gap 5 MMOL/L (8-16) L 06/13/19 08:35 BUN 19.5 mg/dL (7-18) H 06/13/19 08:35 Creatinine 0.8 mg/dL (0.55-1.3) 06/13/19 08:35 Random Glucose 210 mg/dL (74-106) H 06/13/19 08:35 Calcium 8.6 mg/dL (8.5-10.1) 06/13/19 08:35 Total Bilirubin 0.3 mg/dL (0.2-1) 06/09/19 05:38 AST 21 U/L (15-37) 06/09/19 05:38 ALT 40 U/L (13-61) 06/09/19 05:38 Alkaline Phosphatase 74 U/L (45-117) 06/09/19 05:38 Total Protein 6.2 g/dl (6.4-8.2) L 06/09/19 05:38 Albumin 2.3 g/dl (3.4-5.0) L 06/09/19 05:38 CARDIAC ENZYMES Creatine Kinase 281 U/L (26-192) H 06/04/19 06:30 Troponin I < 0.02 ng/ml (0.00-0.05) 06/01/19 04:07 ASSESSMENT/PLAN: Ms. Prescott is an 79 year old female with PMH of Parkinson Disease and dementia who was BIBEMS with AMS x4 days at time of admission. Daughter was at bedside and that time and provided history. 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 At baseline she is non-ambulatory and mental status changes from day to day (some days she is alert and oriented, can speak sentences, other days she does not speak at all). Pt has had a productive cough of yellow sputum for 4 days before day of admission and has become increasingly confused and somnolent. Decreased appetite, unable to eat or drink anything. On day of admission, she was not responding at all and had a low grade fever. Daughter stated that pt has not complained of any symptoms (chest pain, abd pain , SOB, urinary complaints). On arrival to ED, pt was hypoxic in the 80s. Patient consulted for altered mental status. Ct of head reviewed and showed no evidence of a focal intracranial lesion or hemorrhage completed on 06/01 at the time of admission. Patient downgraded from ICU and currently on telemetry floor. Slightly more awake this morning, not following all commands but able to open her eyes briefly. Patient downgraded from ICU and currently on telemetry floor. Still sluggish, not following all commands but able to open her eyes briefly. Mental status appears to remain stable without ssignificant improvement. Repeat CT head without acute changes. ID note reviewed, received ZOsyn, now being monitored off Abx. Remains on Sinemet as well as Exelon patch for Parkinson's. ID note reviewed, received ZOsyn, now being monitored off Abx. Maintain adequate hydration, frequent orientation whenever able. Consider SNF placement if able. Has not demonstrated significant improvement in mental status.
--- NOTE | 2019-06-14 10:28 | PN ---
Teaching Attending Note Name of Resident: Miguel A Stovall ATTENDING PHYSICIAN STATEMENT I saw and evaluated the patient. I reviewed the resident's note and discussed the case with the resident. I agree with the resident's findings and plan as documented. SUBJECTIVE: Patient is lying in bed with no acute distress. Vital Signs Temperature 97 F L 06/13/19 20:14 Pulse Rate 63 06/14/19 01:24 Respiratory Rate 20 06/14/19 01:24 Blood Pressure 141/82 06/14/19 01:24 O2 Sat by Pulse Oximetry (%) 96 06/13/19 20:14 GENERAL: The patient is lethargic. in no acute distress. HEAD: Normal with no signs of trauma. EYES: PERRL, extraocular movements intact, sclera anicteric, conjunctiva clear. ENT: Ears normal, oropharynx clear without exudates, moist mucous membranes. +NG -tube feeding NECK: Trachea midline, full range of motion, supple. LUNGS: decreased Breath sounds bl, no wheezes, no crackles, no accessory muscle use. HEART: Regular rate and rhythm, S1, S2 without murmur, rub or gallop. ABDOMEN: Soft, NT,ND, normoactive bowel sounds, no guarding, no rebound, no hepatosplenomegaly, no masses. EXTREMITIES: 2+ pulses, warm, well-perfused, 1+ edema b/l NEUROLOGICAL: Cranial nerves II through XII grossly intact. Normal speech, gait not observed. PSYCH: Normal mood, normal affect. SKIN: Warm, dry, normal turgor, no rashes or lesions noted CBCD WBC 13.9 K/mm3 (4.0-10.0) H 06/13/19 08:35 RBC 4.50 M/mm3 (3.60-5.2) 06/13/19 08:35 Hgb 10.3 GM/dL (10.7-15.3) L 06/13/19 08:35 Hct 32.6 % (32.4-45.2) 06/13/19 08:35 MCV 72.5 fl (80-96) L 06/13/19 08:35 MCHC 31.4 g/dl (32.0-36.0) L 06/13/19 08:35 RDW 17.4 % (11.6-15.6) H 06/13/19 08:35 Plt Count 412 K/MM3 (134-434) 06/13/19 08:35 MPV 9.3 fl (7.5-11.1) 06/13/19 08:35 CMP Sodium 137 mmol/L (136-145) 06/13/19 08:35 Potassium 4.5 mmol/L (3.5-5.1) 06/13/19 08:35 Chloride 101 mmol/L (98-107) 06/13/19 08:35 Carbon Dioxide 31 mmol/L (21-32) 06/13/19 08:35 Anion Gap 5 MMOL/L (8-16) L 06/13/19 08:35 BUN 19.5 mg/dL (7-18) H 06/13/19 08:35 Creatinine 0.8 mg/dL (0.55-1.3) 06/13/19 08:35 Random Glucose 210 mg/dL (74-106) H 06/13/19 08:35 Calcium 8.6 mg/dL (8.5-10.1) 06/13/19 08:35 Total Bilirubin 0.3 mg/dL (0.2-1) 06/09/19 05:38 AST 21 U/L (15-37) 06/09/19 05:38 ALT 40 U/L (13-61) 06/09/19 05:38 Alkaline Phosphatase 74 U/L (45-117) 06/09/19 05:38 Total Protein 6.2 g/dl (6.4-8.2) L 06/09/19 05:38 Albumin 2.3 g/dl (3.4-5.0) L 06/09/19 05:38 CARDIAC ENZYMES Creatine Kinase 281 U/L (26-192) H 06/04/19 06:30 Troponin I < 0.02 ng/ml (0.00-0.05) 06/01/19 04:07 Current Medications Generic Name Dose Route Start Last Admin Trade Name Freq PRN Reason Stop Dose Admin Acetylcysteine 600 mg 06/12/19 08:00 06/12/19 08:35 Mucomyst 20 Oral / Inh Use Only* NEB Not Given RBID [facility] Albuterol Sulfate 1 amp 06/12/19 16:13 06/13/19 20:35 Ventolin 0.083% Nebulizer Soln - NEB 1 amp Q6H PRN Administration SHORT OF BREATH/WHEEZING Carbidopa/Levodopa 2 each 06/12/19 07:00 06/14/19 06:44 Sinemet 25/100 - PO 2 each TID@0700,1200,1900 [facility] Administration Heparin Sodium (Porcine) 5,000 unit 06/11/19 22:00 06/14/19 06:54 Heparin - SQ 5,000 unit TID [facility] Administration Insulin Aspart 1 vial 06/11/19 16:42 06/14/19 06:52 Novolog Vial Sliding Scale - SQ Not Given ACHS [facility] Protocol Methylprednisolone Sodium Succinate 20 mg 06/11/19 22:00 06/13/19 22:49 Solu-Medrol - IVPUSH 20 mg BID [facility] Administration Non-Formulary Medication 1 each 06/12/19 10:00 06/13/19 12:04 Rotigotine [Neupro] TD 1 each DAILY [facility] Administration Pantoprazole Sodium 40 mg 06/12/19 10:00 06/13/19 09:54 Protonix Iv IVPUSH 40 mg DAILY [facility] Administration Rivastigmine 1 each 06/12/19 10:00 06/13/19 09:57 Exelon Patch 4.6mg/24 Hours - TD 1 each DAILY [facility] Administration Home Medications Medication Instructions Recorded Ca/D3/Mag Ox/Zinc/Icebox Man/Ketan/Bor 1 each PO HS 04/13/18 [Calcium 600-D3 Plus Caplet] Carbidopa/Levodopa [Carbidopa-Levo 1 each PO TID 04/13/18 ER 50-200 Tab] Aspirin 81 mg PO DAILY 06/01/19 Melatonin 5 mg PO HS 06/01/19 Olanzapine [Zyprexa -] 7.5 mg PO DAILY 06/01/19 Omeprazole 20 mg PO DAILY 06/01/19 Rivastigmine [Exelon Patch 1 each TD DAILY 06/01/19 4.6MG/24 Hours] Rotigotine [Neupro] 1 each TD DAILY 06/01/19 06/03/19 11:40 Blood - Peripheral Venous Blood Culture - Final NO GROWTH AFTER 5 DAYS INCUBATION 06/03/19 12:00 Blood - Peripheral Venous Blood Culture - Final NO GROWTH AFTER 5 DAYS INCUBATION 06/04/19 06:20 Sputum - Oropharynx Suctioned Sputum Gram Stain - Final 06/04/19 06:20 Sputum - Oropharynx Suctioned Sputum Sputum Culture - Final Yeast Like Organism 06/01/19 00:00 Blood - Peripheral Venous Blood Culture - Final NO GROWTH AFTER 5 DAYS INCUBATION 06/01/19 00:00 Blood - Peripheral Venous Blood Culture - Final Staph Capitis Subsp Ureolyticu 06/01/19 03:00 Urine For Antigen Detection Legionella Antigen - Final 06/01/19 03:00 Urine For Antigen Detection Streptococcus pneumoniae Antigen (M - Final 06/01/19 01:20 Urine - Urine - Catheterized Urine Culture - Final NO GROWTH OBTAINED Laboratory Tests 06/01/19 06/01/19 06/02/19 16:50 20:00 05:47 BUN 37.6 H 32.5 H Creatinine 1.3 1.1 Lactic Acid 3.6 H* Creatine Kinase 1578 H 954 H 06/02/19 06/04/19 05:47 06:30 BUN Creatinine Lactic Acid 1.5 Creatine Kinase 281 H Assessment and plan: Patient is an 79yof with h/o Parkinson Disease and dementia who presented with AMS. Patient is nonverbal. # Acute hypercapnic resp failure s/p extubation , comfortable now. cpap if needed. Cont steroids with taper , 20mg bid iv now # Aspiration PNA : day 8 zosyn , stopped by Ids request , will monitor off IV zosyn, on steroid IV continue 20mg with taper #Feeding NG-tube: longterm plan needed, will discuss with the family # JOS: improved. # Rhabdo s/p IVF # Thrombocytopenia: resolved # h/o HTN # h/o DM: cont SSI # AMS: acute metabolic encephalopathy # h/o dementia # Microcytic anemia #contaminant blood cx # hx of Parkisonism cont Sinemet # yeast in sputum DVT px; heparin SQ. Continue current treatment. will need a long plan possible peg vs G-tube , will discuss with the family , swallowing evaluation taper steroid NG tube continue for now
[2019-06-14] MEDS: methylPREDNISolone NA SUCC 40 MG/1 ML VIAL IVPUSH SCH (10:47)
[2019-06-14] MEDS: PANTOPRAZOLE SODIUM 40 MG VIAL IVPUSH SCH (10:47)
[2019-06-14] MEDS: RIVASTIGMINE 4.6 MG/24 HOURS TRANSDERMAL PATCH TD SCH (10:47)
[2019-06-14] MEDS: PATIENT'S OWN MEDICATION (NON-FORMULARY) (Rotigotine [Neupro] 1 EACH) TD SCH ×2 (10:47→10:48)
--- NOTE | 2019-06-14 11:16 | PN ---
Physical Exam: SUBJECTIVE: Patient seen and examined NAEON. NGT feeds stopped yesterday dt diarrhea Not responding to questioning. Opening eyes intermittently. Chewing motion of jaw. OBJECTIVE: Vital Signs Period Temp Pulse Resp BP Sys/Campbell Pulse Ox Last 24 Hr 97 F-97 F 50-63 20-20 104-143/64-82 95-96 GENERAL: Lethargic. Mildly response to painful stimuli HEAD: NC/AT EYES: extraocular movements tracking movement briefly, sclera anicteric, conjunctiva clear. No ptosis. ENT: Ears normal, nares patent, NGT feed stopped NECK: Trachea midline, full range of motion, supple. LUNGS: Breath sounds equal, mildly coarse BS w/ wheezes bilaterally. Breathing on RA HEART: Regular rate and rhythm, S1, S2 without murmur, rub or gallop. ABDOMEN: Soft, nontender, nondistended, normoactive bowel sounds, no guarding, no rebound. EXTREMITIES: 2+ pulses, warm, well-perfused, no edema. BLE with nonpitting edema. DP2+ b/l NEUROLOGICAL: not opening eyes to pain, withdrawing BUE and BLE to painful stimuli. Repetitive chewing motion. Not responding to questioning SKIN: Warm, dry, normal turgor, no rashes or lesions noted Laboratory Results - last 24 hr 06/13/19 06/13/19 06/13/19 11:36 17:06 22:46 POC Glucometer 135 183 165 06/14/19 06:51 POC Glucometer 185 Active Medications Generic Name Dose Route Start Last Admin Trade Name Freq PRN Reason Stop Dose Admin Acetylcysteine 600 mg 06/12/19 08:00 06/12/19 08:35 Mucomyst 20 Oral / Inh Use Only* NEB Not Given RBID [facility] Albuterol Sulfate 1 amp 06/12/19 16:13 06/13/19 20:35 Ventolin 0.083% Nebulizer Soln - NEB 1 amp Q6H PRN Administration SHORT OF BREATH/WHEEZING Carbidopa/Levodopa 2 each 06/12/19 07:00 06/14/19 06:44 Sinemet 25/100 - PO 2 each TID@0700,1200,1900 [facility] Administration Heparin Sodium (Porcine) 5,000 unit 06/11/19 22:00 06/14/19 06:54 Heparin - SQ 5,000 unit TID [facility] Administration Insulin Aspart 1 vial 06/11/19 16:42 06/14/19 06:52 Novolog Vial Sliding Scale - SQ Not Given ACHS [facility] Protocol Methylprednisolone Sodium Succinate 20 mg 06/11/19 22:00 06/14/19 10:47 Solu-Medrol - IVPUSH 20 mg BID [facility] Administration Non-Formulary Medication 1 each 06/12/19 10:00 06/14/19 10:48 Rotigotine [Neupro] TD Not Given DAILY [facility] Pantoprazole Sodium 40 mg 06/12/19 10:00 06/14/19 10:47 Protonix Iv IVPUSH 40 mg DAILY [facility] Administration Rivastigmine 1 each 06/12/19 10:00 06/14/19 10:47 Exelon Patch 4.6mg/24 Hours - TD 1 each DAILY [facility] Administration ASSESSMENT/PLAN: 79y/o female with Parkinson's and dementia who presents with AMS and cough x 4 days. At baseline she is non-ambulatory and mental status changes from day to day (some days she is alert and oriented, can speak sentences, other days she does not speak at all). Pt was hypoxic to the 80s at ED presentation. Intubated for increased work of breathing. Flu negative. Possibly had aspiration PNA. Atelectasis vs infiltrate at Left base. Extubated on 06/09. Repeat CTH on by Neuro, w/o significant interval change; possibly chronic and superimposed sinusitis of Left maxillary antrum and sphenoid sinus. Persistent hyperglycemia prompted change of Jevity to Glucerna. Discuss with family, GOC on 06/12/19. Daughter expresses desire to avoid PEG, has strong belief that optimization of Parkinson's and Dementia drugs will help pt resolve AMS. TF held on 06/13/19 dt diarrhea. Received zosyn x8d(06/01 -06/13) for possible aspiration PNA. #acute hypoxic respiratory failure 2/2 multilobar PNA and sepsis -CXR improved post-intubation > CXR(06/08/19): Left base w/ minimal atelectasis, sharp rib angles > flu: negative > Echo: normal EF, impaired relaxation, elevated filling pressures, TR, MR -duonebs TID -solumedrol 20mg IVP BID --> 20mg IVP QD -zosyn 3.375g Q8H --stopped -ID(Valentino) consult: --dc abx, and observe off -Pulm(Jourdan) consult: --cw abx --taper medrol #AMS: toxic metabolic encephalopathy vs less likely CVA -CT head negative for acute processes -CT H(06/11/19): no significant change, possible chronic/superimposed Left maxillary sinusitis -urine cx negative -blood cx(06/01/19): Staph coag negative in 1 bottle --likely contaminant -blood cx(06/03/19): NGTD -dietary following -speech following #sacral skin tear -surgery(Jacob Estrada) consulted --Reposition every two hours while in bed --Air mattress recommended --Use drawsheets and Trendelenburg when repositioning to reduce friction and shear --Manageincontinence via timely cleansing, use of appropriate incontinence disposables and use of barrier ointment to intact skin --Ensure adequate hydration/nutrition, supplementation per primary team --Ensure off-loading to all bony areas (heels, ankles, hips and tailbone) with Allevyn/Optifoam --Clean open wounds with normal saline and apply bacitracin #leukocytosis -from infection vs steroid use -mild improvement continues -continue monitor #JOS, resolved -nephro following -Cardio following --diovan held --BP stable #anemia of chronic disease -microcytosis but low TIBC, unsaturated IBC, and high ferritin #Parkinson's and dementia -continue Sinimet, modified dose for NG tube, @0700, 1200, 1900 -rivostigmine patch -rotigotine patch #mild hypophosphatemia, resolved #lactic acidosis, resolved #transaminitis, improved DVT ppx SQH GI ppx protonix FEN monitor labs NG feeds: Glucerna --held for now Visit type - Emergency Visit Emergency Visit: No - New Patient This patient is new to me today: No - Critical Care Critical Care patient: No ATTENDING PHYSICIAN STATEMENT I saw and evaluated the patient. I reviewed the resident's note and discussed the case with the resident. I agree with the resident's findings and plan as documented. SUBJECTIVE: OBJECTIVE: ASSESSMENT AND PLAN:
[2019-06-14 12:13] LABS: BASO % 1.1 % (0-2.0); EOS % 0.1 % (0-4.5); HEMATOCRIT 34.9 % (32.4-45.2); HEMOGLOBIN 11.2 GM/dL (10.7-15.3); LYMPH % 21.4 % (8-40); MCHC 31.9 g/dl (32.0-36.0); MEAN CELL VOLUME 72.2 fl (80-96); MEAN PLT VOLUME 9.6 fl (7.5-11.1); MONO % 5.2 % (3.8-10.2); NEUT % 72.2 % (42.8-82.8); PLATELET COUNT 420 K/MM3 (134-434); RBC 4.84 M/mm3 (3.60-5.2); RDW 17.8 % (11.6-15.6); WHITE BLOOD COUNT 15.1 K/mm3 (4.0-10.0)
--- NOTE | 2019-06-14 13:25 | PN ---
Progress Note (short form) - Note Progress Note: PULMONARY Pt nonverbal. No fevers recorded. Vital Signs Period Temp Pulse Resp BP Sys/Campbell Pulse Ox Last 24 Hr 97 F-97.5 F 50-63 18-20 104-143/64-82 95-100 Gen: NAD at rest Heart: RRR Lung: scattered rhonchi Abd: soft, nontender Ext: no edema CBC, BMP 06/14/19 11:18 06/13/19 08:35 Active Medications Acetylcysteine (Mucomyst 20 Oral / Inh Use Only*) 600 mg NEB RBID [facility] Last Admin: 06/12/19 08:35 Dose: Not Given Albuterol Sulfate (Ventolin 0.083% Nebulizer Soln -) 1 amp NEB Q6H PRN PRN Reason: SHORT OF BREATH/WHEEZING Last Admin: 06/13/19 20:35 Dose: 1 amp Carbidopa/Levodopa (Sinemet 25/100 -) 2 each PO TID@0700,1200,1900 [facility] Last Admin: 06/14/19 06:44 Dose: 2 each Heparin Sodium (Porcine) (Heparin -) 5,000 unit SQ TID [facility] Last Admin: 06/14/19 06:54 Dose: 5,000 unit Insulin Aspart (Novolog Vial Sliding Scale -) 1 vial SQ ACHS [facility]; Protocol Last Admin: 06/14/19 06:52 Dose: Not Given Methylprednisolone Sodium Succinate (Solu-Medrol -) 20 mg IVPUSH DAILY [facility] Non-Formulary Medication (Rotigotine [Neupro]) 1 each TD DAILY [facility] Last Admin: 06/14/19 10:48 Dose: Not Given Pantoprazole Sodium (Protonix Iv) 40 mg IVPUSH DAILY [facility] Last Admin: 06/14/19 10:47 Dose: 40 mg Rivastigmine (Exelon Patch 4.6mg/24 Hours -) 1 each TD DAILY [facility] Last Admin: 06/14/19 10:47 Dose: 1 each A/P Acute Hypercapneic Respiratory Failure improving Pneumonia likely Aspiration Sepsis Lactic Acidosis Acute Kidney Injury HTN DM Parkinsons Dementia - continue antibiotics - taper off medrol - inhaled bronchodilators - o2 to keep SpO2 >90% - aspiration precautions - DVT prophylaxis
[2019-06-14] MEDS ORDERED: PT OWN MED DRAWER 7, Y5N ONE (15:34)
[2019-06-14] MEDS ORDERED: ALBUTEROL SO4 0.083% IH SOL 2.5 MG/3 ML VIAL.NEB. NEB PRN (19:19)
[2019-06-14] MEDS: BACITRACIN 15 GM TUBE TOPICAL OINTMENT TP SCH (22:54)
[2019-06-15] MEDS: HEPARIN NA (PORCINE) 5,000 UNITS/ML 1ML VIAL SQ SCH ×3 (07:01→22:06)
[2019-06-15] MEDS: CARBIDOPA/LEVODOPA 25/100 TABLET (FP) PO SCH ×3 (07:02→18:43)
[2019-06-15] MEDS: INSULIN SLIDING SCALE (NOVOLOG) 1 VIAL SQ SCH ×4 (07:19→22:06)
[2019-06-15 08:59] LABS: HEMATOCRIT 32.4 % (32.4-45.2); HEMOGLOBIN 10.3 GM/dL (10.7-15.3); MCH 23.1 pg (25.7-33.7); MCHC 31.8 g/dl (32.0-36.0); MEAN CELL VOLUME 72.9 fl (80-96); MEAN PLT VOLUME 9.1 fl (7.5-11.1); PLATELET COUNT 352 K/MM3 (134-434); RBC 4.45 M/mm3 (3.60-5.2); RDW 17.5 % (11.6-15.6); WHITE BLOOD COUNT 12.4 K/mm3 (4.0-10.0)
[2019-06-15 09:25] LABS: BLOOD UREA NITROGEN 25.5 mg/dL (7-18); CALCIUM 8.5 mg/dL (8.5-10.1); CREATININE 0.8 mg/dL (0.55-1.3); MAGNESIUM 2.2 mg/dL (1.8-2.4); PHOSPHOROUS 3.8 mg/dL (2.5-4.9); POTASSIUM 4.2 mmol/L (3.5-5.1)
[2019-06-15] MEDS ORDERED: SODIUM CHLORIDE 500 ML IV STA (09:37)
[2019-06-15] MEDS ORDERED: methylPREDNISolone NA SUCC 40 MG/1 ML VIAL IVPUSH SCH (10:00)
--- NOTE | 2019-06-15 10:56 | PN ---
Progress Note (short form) - Note Progress Note: s: sleeping, not rousable Current Medications Generic Name Dose Route Start Last Admin Trade Name Freq PRN Reason Stop Dose Admin Albuterol Sulfate 1 amp 06/14/19 19:19 Ventolin 0.083% Nebulizer Soln - NEB Q6H PRN SHORT OF BREATH/WHEEZING Bacitracin 1 applic 06/14/19 21:30 06/14/19 22:54 Bacitracin - TP 1 applic DAILY [facility] Administration Carbidopa/Levodopa 2 each 06/14/19 21:15 06/15/19 07:02 Sinemet 25/100 - PO 2 each TID@0700,1200,1900 [facility] Administration Heparin Sodium (Porcine) 5,000 unit 06/14/19 22:00 06/15/19 07:01 Heparin - SQ 5,000 unit TID [facility] Administration Insulin Aspart 1 vial 06/14/19 22:00 06/15/19 07:19 Novolog Vial Sliding Scale - SQ 2 units ACHS [facility] Administration Protocol Methylprednisolone Sodium Succinate 20 mg 06/15/19 10:00 Solu-Medrol - IVPUSH DAILY [facility] Non-Formulary Medication 1 each 06/15/19 10:00 Rotigotine [Neupro] TD DAILY [facility] Pantoprazole Sodium 40 mg 06/15/19 10:00 Protonix Iv IVPUSH DAILY [facility] Rivastigmine 1 each 06/15/19 10:00 Exelon Patch 4.6mg/24 Hours - TD DAILY [facility] Vital Signs Period Temp Pulse Resp BP Sys/Campbell Pulse Ox Last 24 Hr 97.4 F-97.9 F 49-73 18-20 82-142/50-75 98-99 Constitutional: Yes: No Distress, Calm Neck: Yes: Supple, Trachea Midline Respiratory: Yes: Regular, Diminished Gastrointestinal: Yes: Normal Bowel Sounds, Soft Cardiovascular: Yes: Regular Rate and Rhythm JVD: No Extremities: No: Cold Edema: No Integumentary: No: Jaundice Neurological: Yes: Lethargy Psychiatric: No: Agitated CBC, BMP 06/15/19 08:00 06/15/19 08:00 echo 05/2019 nl LV/RV function, impaired relaxation, elevated filling pressures, RV not well visualized, mild to mod MR, mild mod TR CXR: no congestion/effusions (+ atx) PNA, sepsis, acute respiratory failure 2/2 suspected aspiration: - manage per critical care, ID; - intubated after suspected aspiration event, now extubated - nl LV function on echo HTN: - stable DM: - manage per primary dementia, parkinson's: - manage per primary JOS, rhabdo: - renal fxn improved
--- NOTE | 2019-06-15 11:10 | PN ---
Progress Note (short form) - Note Progress Note: Neurology CHIEF COMPLAINT: AMS PCP: None HISTORY OF PRESENT ILLNESS: Ms. Prescott is an 79 year old female with PMH of Parkinson Disease and dementia who was BIBEMS with AMS x4 days at time of admission. Daughter was at bedside and that time and provided history. Pt lives at home (no PUBLIC HEALTH PROGRAM MANAGER or VNS) with daughter as primary hardwood flooring specialist. At baseline she is non-ambulatory and mental status changes from day to day (some days she is alert and oriented, can speak sentences, other days she does not speak at all). Pt has had a productive cough of yellow sputum for 4 days before day of admission and has become increasingly confused and somnolent. Decreased appetite, unable to eat or drink anything. On day of admission, she was not responding at all and had a low grade fever. Daughter stated that pt has not complained of any symptoms (chest pain, abd pain , SOB, urinary complaints). On arrival to ED, pt was hypoxic in the 80s. Patient consulted for altered mental status. Ct of head reviewed and showed no evidence of a focal intracranial lesion or hemorrhage completed on 06/01 at the time of admission. Patient downgraded from ICU and currently on telemetry floor. Still sluggish, not following all commands but able to open her eyes briefly. Mental status appears to remain stable without ssignificant improvement. Repeat CT head without acute changes. ID note reviewed, received ZOsyn, now being monitored off Abx. Remains on Sinemet as well as Exelon patch for Parkinson's which does not seem to be the etiology to her mental status. Extensive clinical course as noted without significant improvement. Active Medications Albuterol Sulfate (Ventolin 0.083% Nebulizer Soln -) 1 amp NEB Q6H PRN PRN Reason: SHORT OF BREATH/WHEEZING Bacitracin (Bacitracin -) 1 applic TP DAILY [facility] Last Admin: 06/14/19 22:54 Dose: 1 applic Carbidopa/Levodopa (Sinemet 25/100 -) 2 each PO TID@0700,1200,1900 [facility] Last Admin: 06/15/19 07:02 Dose: 2 each Heparin Sodium (Porcine) (Heparin -) 5,000 unit SQ TID [facility] Last Admin: 06/15/19 07:01 Dose: 5,000 unit Insulin Aspart (Novolog Vial Sliding Scale -) 1 vial SQ ACHS [facility]; Protocol Last Admin: 06/15/19 07:19 Dose: 2 units Methylprednisolone Sodium Succinate (Solu-Medrol -) 20 mg IVPUSH DAILY [facility] Non-Formulary Medication (Rotigotine [Neupro]) 1 each TD DAILY [facility] Pantoprazole Sodium (Protonix Iv) 40 mg IVPUSH DAILY [facility] Rivastigmine (Exelon Patch 4.6mg/24 Hours -) 1 each TD DAILY [facility] PHYSICAL EXAMINATION Vital Signs Period Temp Pulse Resp BP Sys/Campbell Pulse Ox Last 24 Hr 97.4 F-97.9 F 49-73 16-20 82-142/50-75 98-99 GENERAL: Somnolent, slightly responsive to sternal rub. HEAD: Normal with no signs of trauma. EYES: Pupils equal, round and reactive to light, extraocular movements intact, sclera anicteric, conjunctiva clear. No lid lag. EARS, NOSE, THROAT: Ears normal, nares patent, oropharynx clear without exudates. Dry mucous membranes. NECK: Normal range of motion, supple without lymphadenopathy, JVD, or masses. LUNGS: Inspiratory and expiratory wheezes throughout, accessory muscle use. HEART: Regular rate and rhythm, normal S1 and S2 without murmur, rub or gallop. ABDOMEN: Soft, nontender, not distended, normoactive bowel sounds, no guarding, no rebound, no masses. No hepatomegaly or splenomegaly. MUSCULOSKELETAL: Normal range of motion at all joints. No bony deformities or tenderness. No CVA tenderness. UPPER EXTREMITIES: 2+ pulses, warm, well-perfused. No cyanosis. No clubbing. No peripheral edema. LOWER EXTREMITIES: 2+ pulses, warm, well-perfused. No calf tenderness. No peripheral edema. NEUROLOGICAL: Unable to assess 2/2 mental status. PSYCHIATRIC: Cooperative. Good eye contact. Appropriate mood and affect. SKIN: Warm, dry, normal turgor, normal capillary refill. Sacral decubitus ulcer with sloughing skin and erythema. CBCD WBC 12.4 K/mm3 (4.0-10.0) H 06/15/19 08:00 RBC 4.45 M/mm3 (3.60-5.2) 06/15/19 08:00 Hgb 10.3 GM/dL (10.7-15.3) L 06/15/19 08:00 Hct 32.4 % (32.4-45.2) 06/15/19 08:00 MCV 72.9 fl (80-96) L 06/15/19 08:00 MCHC 31.8 g/dl (32.0-36.0) L 06/15/19 08:00 RDW 17.5 % (11.6-15.6) H 06/15/19 08:00 Plt Count 352 K/MM3 (134-434) 06/15/19 08:00 MPV 9.1 fl (7.5-11.1) 06/15/19 08:00 CMP Sodium 137 mmol/L (136-145) 06/15/19 08:00 Potassium 4.2 mmol/L (3.5-5.1) 06/15/19 08:00 Chloride 102 mmol/L (98-107) 06/15/19 08:00 Carbon Dioxide 28 mmol/L (21-32) 06/15/19 08:00 Anion Gap 8 MMOL/L (8-16) 06/15/19 08:00 BUN 25.5 mg/dL (7-18) H 06/15/19 08:00 Creatinine 0.8 mg/dL (0.55-1.3) 06/15/19 08:00 Random Glucose 182 mg/dL (74-106) H 06/15/19 08:00 Calcium 8.5 mg/dL (8.5-10.1) 06/15/19 08:00 Total Bilirubin 0.3 mg/dL (0.2-1) 06/09/19 05:38 AST 21 U/L (15-37) 06/09/19 05:38 ALT 40 U/L (13-61) 06/09/19 05:38 Alkaline Phosphatase 74 U/L (45-117) 06/09/19 05:38 Total Protein 6.2 g/dl (6.4-8.2) L 06/09/19 05:38 Albumin 2.3 g/dl (3.4-5.0) L 06/09/19 05:38 CARDIAC ENZYMES Creatine Kinase 281 U/L (26-192) H 06/04/19 06:30 Troponin I < 0.02 ng/ml (0.00-0.05) 01/06/20 04:07 ASSESSMENT/PLAN: Ms. Genie is an 79 year old female with PMH of Parkinson Disease and dementia who was BIBEMS with AMS x4 days at time of admission. Daughter was at bedside and that time and provided history. Pt lives at home (no PUBLIC HEALTH PROGRAM MANAGER or VNS) with daughter as primary hardwood flooring specialist. At baseline she is non-ambulatory and mental status changes from day to day (some days she is alert and oriented, can speak sentences, other days she does not speak at all). Pt has had a productive cough of yellow sputum for 4 days before day of admission and has become increasingly confused and somnolent. Decreased appetite, unable to eat or drink anything. On day of admission, she was not responding at all and had a low grade fever. Daughter stated that pt has not complained of any symptoms (chest pain, abd pain , SOB, urinary complaints). On arrival to ED, pt was hypoxic in the 80s. Patient consulted for altered mental status. Ct of head reviewed and showed no evidence of a focal intracranial lesion or hemorrhage completed on 06/01 at the time of admission. Patient downgraded from ICU and currently on telemetry floor. Slightly more awake this morning, not following all commands but able to open her eyes briefly. Patient downgraded from ICU and currently on telemetry floor. Still sluggish, not following all commands but able to open her eyes briefly. Mental status appears to remain stable without ssignificant improvement. Repeat CT head without acute changes. ID note reviewed, received ZOsyn, now being monitored off Abx. Remains on Sinemet as well as Exelon patch for Parkinson's. Parkinson's does not seem to be the etiology to her mental status. Extensive clinical course as noted without significant improvement. ID note reviewed, received ZOsyn, now being monitored off Abx. Maintain adequate hydration, frequent orientation whenever able. Consider SNF placement if able. Has not demonstrated significant improvement in mental status.
[2019-06-15] MEDS: RIVASTIGMINE 4.6 MG/24 HOURS TRANSDERMAL PATCH TD SCH (11:55)
--- NOTE | 2019-06-15 12:00 | PN ---
Progress Note (short form) - Note Progress Note: Nonverbal. NAD. No fevers recorded. Intake & Output 06/12/19 06/13/19 06/14/19 06/15/19 23:59 23:59 23:59 23:59 Intake Total 810 530 150 Output Total 1400 1000 Balance -590 -470 150 Last Vital Signs Temp Pulse Resp BP Pulse Ox 97.6 F 52 L 16 92/58 L 99 06/15/19 06:00 06/15/19 11:00 06/15/19 11:00 06/15/19 11:00 06/14/19 22:00 Active Medications Albuterol Sulfate (Ventolin 0.083% Nebulizer Soln -) 1 amp NEB Q6H PRN PRN Reason: SHORT OF BREATH/WHEEZING Bacitracin (Bacitracin -) 1 applic TP DAILY [facility] Last Admin: 06/14/19 22:54 Dose: 1 applic Carbidopa/Levodopa (Sinemet 25/100 -) 2 each PO TID@0700,1200,1900 [facility] Last Admin: 06/15/19 07:02 Dose: 2 each Heparin Sodium (Porcine) (Heparin -) 5,000 unit SQ TID [facility] Last Admin: 06/15/19 07:01 Dose: 5,000 unit Insulin Aspart (Novolog Vial Sliding Scale -) 1 vial SQ ACHS [facility]; Protocol Last Admin: 06/15/19 07:19 Dose: 2 units Methylprednisolone Sodium Succinate (Solu-Medrol -) 20 mg IVPUSH DAILY [facility] Non-Formulary Medication (Rotigotine [Neupro]) 1 each TD DAILY [facility] Pantoprazole Sodium (Protonix Iv) 40 mg IVPUSH DAILY [facility] Rivastigmine (Exelon Patch 4.6mg/24 Hours -) 1 each TD DAILY [facility] Gen: NAD at rest Heart: RRR Lung: scattered rhonchi Abd: soft, nontender Ext: no edema Laboratory Results - last 24 hr 06/14/19 06/14/19 06/14/19 11:18 17:20 22:57 WBC 15.1 H RBC 4.84 Hgb 11.2 Hct 34.9 MCV 72.2 L MCH 23.0 L MCHC 31.9 L RDW 17.8 H Plt Count 420 MPV 9.6 Absolute Neuts (auto) 10.9 H Neutrophils % 72.2 Lymphocytes % 21.4 D Monocytes % 5.2 Eosinophils % 0.1 D Basophils % 1.1 D Nucleated RBC % 0 Sodium Potassium Chloride Carbon Dioxide Anion Gap BUN Creatinine Est GFR (CKD-EPI)AfAm Est GFR (CKD-EPI)NonAf POC Glucometer 169 155 Random Glucose Calcium Phosphorus Magnesium 06/15/19 06/15/19 06/15/19 07:18 08:00 08:00 WBC 12.4 H RBC 4.45 Hgb 10.3 L Hct 32.4 MCV 72.9 L MCH 23.1 L MCHC 31.8 L RDW 17.5 H Plt Count 352 MPV 9.1 Absolute Neuts (auto) Neutrophils % Lymphocytes % Monocytes % Eosinophils % Basophils % Nucleated RBC % Sodium 137 Potassium 4.2 Chloride 102 Carbon Dioxide 28 Anion Gap 8 BUN 25.5 H Creatinine 0.8 Est GFR (CKD-EPI)AfAm 80.14 Est GFR (CKD-EPI)NonAf 69.14 POC Glucometer 192 Random Glucose 182 H Calcium 8.5 Phosphorus 3.8 Magnesium 2.2 A/P Acute Hypercapneic Respiratory Failure improving Pneumonia likely Aspiration Sepsis Lactic Acidosis Acute Kidney Injury HTN DM Parkinsons Dementia - Off ABX - taper off medrol - inhaled bronchodilators - o2 to keep SpO2 >90% - aspiration precautions - DVT prophylaxis - DC planning (+) LTAC Dr Collins
[2019-06-15] MEDS ORDERED: INSULIN (NOVOLOG) ASPART 100 UNITS/ML 10ML VIAL ONE (12:07)
[2019-06-15] MEDS: PATIENT'S OWN MEDICATION (NON-FORMULARY) (Rotigotine [Neupro] 1 EACH) TD SCH (12:19)
[2019-06-15] MEDS: PANTOPRAZOLE SODIUM 40 MG VIAL IVPUSH SCH (12:19)
[2019-06-15] MEDS: BACITRACIN 15 GM TUBE TOPICAL OINTMENT TP SCH (17:31)
--- NOTE | 2019-06-15 19:42 | PN ---
Progress Note (short form) - Note Progress Note: Vital Signs Temperature 95.9 F L 06/15/19 15:00 Pulse Rate 52 L 06/15/19 17:30 Respiratory Rate 16 06/15/19 17:30 Blood Pressure 119/71 06/15/19 17:30 O2 Sat by Pulse Oximetry (%) 100 06/15/19 10:00 GENERAL: The patient is lethargic. in no acute distress. HEAD: Normal with no signs of trauma. EYES: PERRL, extraocular movements intact, sclera anicteric, conjunctiva clear. ENT: Ears normal, oropharynx clear without exudates, moist mucous membranes. +NG -tube feeding NECK: Trachea midline, full range of motion, supple. LUNGS: decreased Breath sounds bl, no wheezes, no crackles, no accessory muscle use. HEART: Regular rate and rhythm, S1, S2 without murmur, rub or gallop. ABDOMEN: Soft, NT,ND, normoactive bowel sounds, no guarding, no rebound, no hepatosplenomegaly, no masses. EXTREMITIES: 2+ pulses, warm, well-perfused, 1+ edema b/l NEUROLOGICAL: Cranial nerves II through XII grossly intact. Normal speech, gait not observed. PSYCH: Normal mood, normal affect. SKIN: Warm, dry, normal turgor, no rashes or lesions noted CBCD WBC 12.4 K/mm3 (4.0-10.0) H 06/15/19 08:00 RBC 4.45 M/mm3 (3.60-5.2) 06/15/19 08:00 Hgb 10.3 GM/dL (10.7-15.3) L 06/15/19 08:00 Hct 32.4 % (32.4-45.2) 06/15/19 08:00 MCV 72.9 fl (80-96) L 06/15/19 08:00 MCHC 31.8 g/dl (32.0-36.0) L 06/15/19 08:00 RDW 17.5 % (11.6-15.6) H 06/15/19 08:00 Plt Count 352 K/MM3 (134-434) 06/15/19 08:00 MPV 9.1 fl (7.5-11.1) 06/15/19 08:00 CMP Sodium 137 mmol/L (136-145) 06/15/19 08:00 Potassium 4.2 mmol/L (3.5-5.1) 06/15/19 08:00 Chloride 102 mmol/L (98-107) 06/15/19 08:00 Carbon Dioxide 28 mmol/L (21-32) 06/15/19 08:00 Anion Gap 8 MMOL/L (8-16) 06/15/19 08:00 BUN 25.5 mg/dL (7-18) H 06/15/19 08:00 Creatinine 0.8 mg/dL (0.55-1.3) 06/15/19 08:00 Random Glucose 182 mg/dL (74-106) H 06/15/19 08:00 Calcium 8.5 mg/dL (8.5-10.1) 06/15/19 08:00 Total Bilirubin 0.3 mg/dL (0.2-1) 06/09/19 05:38 AST 21 U/L (15-37) 06/09/19 05:38 ALT 40 U/L (13-61) 06/09/19 05:38 Alkaline Phosphatase 74 U/L (45-117) 06/09/19 05:38 Total Protein 6.2 g/dl (6.4-8.2) L 06/09/19 05:38 Albumin 2.3 g/dl (3.4-5.0) L 06/09/19 05:38 CARDIAC ENZYMES Creatine Kinase 281 U/L (26-192) H 06/04/19 06:30 Troponin I < 0.02 ng/ml (0.00-0.05) 06/01/19 04:07 Current Medications Generic Name Dose Route Start Last Admin Trade Name Freq PRN Reason Stop Dose Admin Albuterol Sulfate 1 amp 06/14/19 19:19 Ventolin 0.083% Nebulizer Soln - NEB Q6H PRN SHORT OF BREATH/WHEEZING Bacitracin 1 applic 06/14/19 21:30 06/15/19 17:31 Bacitracin - TP 1 applic DAILY [facility] Administration Carbidopa/Levodopa 2 each 06/14/19 21:15 06/15/19 18:43 Sinemet 25/100 - PO 2 each TID@0700,1200,1900 [facility] Administration Heparin Sodium (Porcine) 5,000 unit 06/14/19 22:00 06/15/19 14:09 Heparin - SQ 5,000 unit TID [facility] Administration Insulin Aspart 1 vial 06/14/19 22:00 06/15/19 17:31 Novolog Vial Sliding Scale - SQ 2 units ACHS [facility] Administration Protocol Non-Formulary Medication 1 each 06/15/19 10:00 06/15/19 12:19 Rotigotine [Neupro] TD 1 each DAILY [facility] Administration Pantoprazole Sodium 40 mg 06/15/19 10:00 06/15/19 12:19 Protonix Iv IVPUSH 40 mg DAILY [facility] Administration Rivastigmine 1 each 06/15/19 10:00 06/15/19 11:55 Exelon Patch 4.6mg/24 Hours - TD 1 each DAILY [facility] Administration Home Medications Medication Instructions Recorded Ca/D3/Mag Ox/Zinc/Clinical Information Systems Director/Ketan/Bor 1 each PO HS 04/13/18 [Calcium 600-D3 Plus Caplet] Carbidopa/Levodopa [Carbidopa-Levo 1 each PO TID 04/13/18 ER 50-200 Tab] Aspirin 81 mg PO DAILY 06/01/19 Melatonin 5 mg PO HS 06/01/19 Olanzapine [Zyprexa -] 7.5 mg PO DAILY 06/01/19 Omeprazole 20 mg PO DAILY 06/01/19 Rivastigmine [Exelon Patch 1 each TD DAILY 06/01/19 4.6MG/24 Hours] Rotigotine [Neupro] 1 each TD DAILY 06/01/19 06/03/19 11:40 Blood - Peripheral Venous Blood Culture - Final NO GROWTH AFTER 5 DAYS INCUBATION 06/03/19 12:00 Blood - Peripheral Venous Blood Culture - Final NO GROWTH AFTER 5 DAYS INCUBATION 06/04/19 06:20 Sputum - Oropharynx Suctioned Sputum Gram Stain - Final 06/04/19 06:20 Sputum - Oropharynx Suctioned Sputum Sputum Culture - Final Yeast Like Organism 06/01/19 00:00 Blood - Peripheral Venous Blood Culture - Final NO GROWTH AFTER 5 DAYS INCUBATION 06/01/19 00:00 Blood - Peripheral Venous Blood Culture - Final Staph Capitis Subsp Ureolyticu 06/01/19 03:00 Urine For Antigen Detection Legionella Antigen - Final 06/01/19 03:00 Urine For Antigen Detection Streptococcus pneumoniae Antigen (M - Final 06/01/19 01:20 Urine - Urine - Catheterized Urine Culture - Final NO GROWTH OBTAINED Laboratory Tests 06/01/19 06/01/19 06/02/19 16:50 20:00 05:47 BUN 37.6 H 32.5 H Creatinine 1.3 1.1 Lactic Acid 3.6 H* Creatine Kinase 1578 H 954 H 06/02/19 06/04/19 05:47 06:30 BUN Creatinine Lactic Acid 1.5 Creatine Kinase 281 H Assessment and plan: Patient is an 79yof with h/o Parkinson Disease and dementia who presented with AMS. Patient is nonverbal. # Acute hypercapnic resp failure s/p extubation , comfortable now. cpap if needed. Cont steroids with taper , 20mg bid --> 20mg daily iv now , last dose today # Aspiration PNA : day 8 zosyn , stopped by Ids request , will monitor off IV zosyn, s/p steroid IV #Feeding NG-tube: increased the feeding back to goal of 45ml , soni get the top lift trimmer to evaluate the patient. # JOS: improved. # Rhabdo s/p IVF # Thrombocytopenia: resolved # h/o HTN # h/o DM: cont SSI # AMS: acute metabolic encephalopathy # h/o dementia # Microcytic anemia #contaminant blood cx # hx of Parkisonism cont Sinemet # yeast in sputum DVT px; heparin SQ. discussed with the daughter , would like NG tube to be stopped and reassess her feeding by Annalise chapin. will discuss with Annalise chapin in am Visit type - Emergency Visit Emergency Visit: Yes ED Registration Date: 06/01/19 Care time: The patient presented to the Emergency Department on the above date and was hospitalized for further evaluation of their emergent condition. - New Patient This patient is new to me today: No - Critical Care Critical Care patient: No - Discharge Referral Referred to [facility] Med P.C.: No
[2019-06-16] MEDS: INSULIN SLIDING SCALE (NOVOLOG) 1 VIAL SQ SCH ×4 (06:00→23:54)
[2019-06-16] MEDS: CARBIDOPA/LEVODOPA 25/100 TABLET (FP) PO SCH ×3 (06:02→18:20)
[2019-06-16] MEDS: HEPARIN NA (PORCINE) 5,000 UNITS/ML 1ML VIAL SQ SCH ×3 (06:02→23:54)
--- NOTE | 2019-06-16 09:07 | PN ---
Progress Note (short form) - Note Progress Note: Neurology CHIEF COMPLAINT: AMS PCP: None HISTORY OF PRESENT ILLNESS: Ms. Prescott is an 79 year old female with PMH of Parkinson Disease and dementia who was BIBEMS with AMS x4 days at time of admission. Daughter was at bedside and that time and provided history. Pt lives at home (no DISTILLERY LABORER or VNS) with daughter as primary stained glass glazier helper. At baseline she is non-ambulatory and mental status changes from day to day (some days she is alert and oriented, can speak sentences, other days she does not speak at all). Pt has had a productive cough of yellow sputum for 4 days before day of admission and has become increasingly confused and somnolent. Decreased appetite, unable to eat or drink anything. On day of admission, she was not responding at all and had a low grade fever. Daughter stated that pt has not complained of any symptoms (chest pain, abd pain , SOB, urinary complaints). On arrival to ED, pt was hypoxic in the 80s. Patient consulted for altered mental status. Ct of head reviewed and showed no evidence of a focal intracranial lesion or hemorrhage completed on 06/01 at the time of admission. Patient downgraded from ICU and currently on telemetry floor. Still sluggish, not following all commands but able to open her eyes briefly. Mental status appears to remain stable without ssignificant improvement. Repeat CT head without acute changes. ID note reviewed, received ZOsyn, now being monitored off Abx. Remains on Sinemet as well as Exelon patch for Parkinson's which does not seem to be the etiology to her mental status. Extensive clinical course as noted without significant improvement. Does awaken to voice but without meaningful responsiveness. Active Medications Albuterol Sulfate (Ventolin 0.083% Nebulizer Soln -) 1 amp NEB Q6H PRN PRN Reason: SHORT OF BREATH/WHEEZING Bacitracin (Bacitracin -) 1 applic TP DAILY [facility] Last Admin: 06/15/19 17:31 Dose: 1 applic Carbidopa/Levodopa (Sinemet 25/100 -) 2 each PO TID@0700,1200,1900 [facility] Last Admin: 06/16/19 06:02 Dose: 2 each Heparin Sodium (Porcine) (Heparin -) 5,000 unit SQ TID [facility] Last Admin: 06/16/19 06:02 Dose: 5,000 unit Insulin Aspart (Novolog Vial Sliding Scale -) 1 vial SQ ACHS [facility]; Protocol Last Admin: 06/16/19 06:00 Dose: Not Given Non-Formulary Medication (Rotigotine [Neupro]) 1 each TD DAILY [facility] Last Admin: 06/15/19 12:19 Dose: 1 each Pantoprazole Sodium (Protonix Iv) 40 mg IVPUSH DAILY [facility] Last Admin: 06/15/19 12:19 Dose: 40 mg Rivastigmine (Exelon Patch 4.6mg/24 Hours -) 1 each TD DAILY [facility] Last Admin: 06/15/19 11:55 Dose: 1 each PHYSICAL EXAMINATION Vital Signs Period Temp Pulse Resp BP Sys/Campbell Pulse Ox Last 24 Hr 95.9 F-98.8 F 52-80 16-18 82-122/50-71 100-100 GENERAL: Somnolent, slightly responsive to sternal rub. HEAD: Normal with no signs of trauma. EYES: Pupils equal, round and reactive to light, extraocular movements intact, sclera anicteric, conjunctiva clear. No lid lag. EARS, NOSE, THROAT: Ears normal, nares patent, oropharynx clear without exudates. Dry mucous membranes. NECK: Normal range of motion, supple without lymphadenopathy, JVD, or masses. LUNGS: Inspiratory and expiratory wheezes throughout, accessory muscle use. HEART: Regular rate and rhythm, normal S1 and S2 without murmur, rub or gallop. ABDOMEN: Soft, nontender, not distended, normoactive bowel sounds, no guarding, no rebound, no masses. No hepatomegaly or splenomegaly. MUSCULOSKELETAL: Normal range of motion at all joints. No bony deformities or tenderness. No CVA tenderness. UPPER EXTREMITIES: 2+ pulses, warm, well-perfused. No cyanosis. No clubbing. No peripheral edema. LOWER EXTREMITIES: 2+ pulses, warm, well-perfused. No calf tenderness. No peripheral edema. NEUROLOGICAL: Unable to assess 2/2 mental status. PSYCHIATRIC: Cooperative. Good eye contact. Appropriate mood and affect. SKIN: Warm, dry, normal turgor, normal capillary refill. Sacral decubitus ulcer with sloughing skin and erythema. CBCD WBC 12.4 K/mm3 (4.0-10.0) H 06/15/19 08:00 RBC 4.45 M/mm3 (3.60-5.2) 06/15/19 08:00 Hgb 10.3 GM/dL (10.7-15.3) L 06/15/19 08:00 Hct 32.4 % (32.4-45.2) 06/15/19 08:00 MCV 72.9 fl (80-96) L 06/15/19 08:00 MCHC 31.8 g/dl (32.0-36.0) L 06/15/19 08:00 RDW 17.5 % (11.6-15.6) H 06/15/19 08:00 Plt Count 352 K/MM3 (134-434) 06/15/19 08:00 MPV 9.1 fl (7.5-11.1) 06/15/19 08:00 CMP Sodium 137 mmol/L (136-145) 06/15/19 08:00 Potassium 4.2 mmol/L (3.5-5.1) 06/15/19 08:00 Chloride 102 mmol/L (98-107) 06/15/19 08:00 Carbon Dioxide 28 mmol/L (21-32) 06/15/19 08:00 Anion Gap 8 MMOL/L (8-16) 06/15/19 08:00 BUN 25.5 mg/dL (7-18) H 06/15/19 08:00 Creatinine 0.8 mg/dL (0.55-1.3) 06/15/19 08:00 Random Glucose 182 mg/dL (74-106) H 06/15/19 08:00 Calcium 8.5 mg/dL (8.5-10.1) 06/15/19 08:00 Total Bilirubin 0.3 mg/dL (0.2-1) 06/09/19 05:38 AST 21 U/L (15-37) 06/09/19 05:38 ALT 40 U/L (13-61) 06/09/19 05:38 Alkaline Phosphatase 74 U/L (45-117) 06/09/19 05:38 Total Protein 6.2 g/dl (6.4-8.2) L 06/09/19 05:38 Albumin 2.3 g/dl (3.4-5.0) L 06/09/19 05:38 CARDIAC ENZYMES Creatine Kinase 281 U/L (26-192) H 06/04/19 06:30 Troponin I < 0.02 ng/ml (0.00-0.05) 06/01/19 04:07 ASSESSMENT/PLAN: Ms. Prescott is an 79 year old female with PMH of Parkinson Disease and dementia who was BIBEMS with AMS x4 days at time of admission. Daughter was at bedside and that time and provided history. Pt lives at home (no DISTILLERY LABORER or VNS) with daughter as primary stained glass glazier helper. At baseline she is non-ambulatory and mental status changes from day to day (some days she is alert and oriented, can speak sentences, other days she does not speak at all). Pt has had a productive cough of yellow sputum for 4 days before day of admission and has become increasingly confused and somnolent. Decreased appetite, unable to eat or drink anything. On day of admission, she was not responding at all and had a low grade fever. Daughter stated that pt has not complained of any symptoms (chest pain, abd pain , SOB, urinary complaints). On arrival to ED, pt was hypoxic in the 80s. Patient consulted for altered mental status. Ct of head reviewed and showed no evidence of a focal intracranial lesion or hemorrhage completed on 06/01 at the time of admission. Patient downgraded from ICU and currently on telemetry floor. Slightly more awake this morning, not following all commands but able to open her eyes briefly. Patient downgraded from ICU and currently on telemetry floor. Still sluggish, not following all commands but able to open her eyes briefly. Mental status appears to remain stable without ssignificant improvement. Repeat CT head without acute changes. ID note reviewed, received ZOsyn, now being monitored off Abx. Remains on Sinemet as well as Exelon patch for Parkinson's. Parkinson's does not seem to be the etiology to her mental status. Extensive clinical course as noted without significant improvement. ID note reviewed, received ZOsyn, now being monitored off Abx, followed by the recommendations. Maintain adequate hydration, frequent orientation whenever able. Consider SNF placement if able. Does awaken to voice but without meaningful responsiveness.
[2019-06-16] MEDS ORDERED: PT OWN MED DRAWER 7, Y5N ONE (09:56)
[2019-06-16] MEDS: PATIENT'S OWN MEDICATION (NON-FORMULARY) (Rotigotine [Neupro] 1 EACH) TD SCH (10:44)
[2019-06-16] MEDS: RIVASTIGMINE 4.6 MG/24 HOURS TRANSDERMAL PATCH TD SCH (10:44)
[2019-06-16] MEDS: PANTOPRAZOLE SODIUM 40 MG VIAL IVPUSH SCH (10:44)
[2019-06-16] MEDS: BACITRACIN 15 GM TUBE TOPICAL OINTMENT TP SCH (10:45)
--- NOTE | 2019-06-16 10:51 | PN ---
Progress Note (short form) - Note Progress Note: Nonverbal. NAD. No fevers recorded. Intake & Output 06/13/19 06/14/19 06/15/19 06/16/19 23:59 23:59 23:59 23:59 Intake Total 130 508 6260 800 Output Total 1000 Balance -954 842 1711 800 Last Vital Signs Temp Pulse Resp BP Pulse Ox 98.8 F 65 18 122/65 100 06/16/19 06:00 06/16/19 06:00 06/16/19 06:00 06/16/19 06:00 06/15/19 22:00 Active Medications Albuterol Sulfate (Ventolin 0.083% Nebulizer Soln -) 1 amp NEB Q6H PRN PRN Reason: SHORT OF BREATH/WHEEZING Bacitracin (Bacitracin -) 1 applic TP DAILY [facility] [place] Last Admin: 06/16/19 10:45 Dose: 1 applic Carbidopa/Levodopa (Sinemet 25/100 -) 2 each PO TID@0700,1200,1900 [facility] [place] Last Admin: 06/16/19 06:02 Dose: 2 each Heparin Sodium (Porcine) (Heparin -) 5,000 unit SQ TID [facility] Last Admin: 06/16/19 06:02 Dose: 5,000 unit Insulin Aspart (Novolog Vial Sliding Scale -) 1 vial SQ ACHS [facility] [place]; Protocol Last Admin: 06/16/19 06:00 Dose: Not Given Non-Formulary Medication (Rotigotine [Neupro]) 1 each TD DAILY [facility] Last Admin: 06/16/19 10:44 Dose: 1 each Pantoprazole Sodium (Protonix Iv) 40 mg IVPUSH DAILY [facility] [place] Last Admin: 06/16/19 10:44 Dose: 40 mg Rivastigmine (Exelon Patch 4.6mg/24 Hours -) 1 each TD DAILY [facility] Last Admin: 06/16/19 10:44 Dose: 1 each Gen: NAD at rest Heart: RRR Lung: scattered rhonchi Abd: soft, nontender Ext: no edema Laboratory Results - last 24 hr 06/15/19 06/15/19 06/15/19 11:59 17:25 22:04 POC Glucometer 164 164 188 06/16/19 05:43 POC Glucometer 150 A/P Acute Hypercapneic Respiratory Failure improving Pneumonia likely Aspiration Sepsis Lactic Acidosis Acute Kidney Injury HTN DM Parkinsons Dementia - Off ABX - Monitor off systemic steroids - inhaled bronchodilators - o2 to keep SpO2 >90% - aspiration precautions - DVT prophylaxis - DC planning Dr Collins
--- NOTE | 2019-06-16 11:23 | PN ---
Progress Note, DRUG SAFETY SCIENTIST - Note Progress Note: Selected Entries 06/15/19 06/15/19 06/15/19 02:00 06:00 15:00 Supper Temperature 97.6 F 97.6 F 95.9 F L 06/15/19 06/15/19 06/15/19 17:20 19:00 20:00 Supper NPO Temperature 97.6 F 97.9 F 06/15/19 06/16/19 06/16/19 22:02 01:36 06:00 Supper Temperature 97.8 F 98.1 F 98.8 F Laboratory Tests 06/12/19 06/13/19 06/14/19 06:10 08:35 11:18 WBC 13.4 H 13.9 H 15.1 H 06/15/19 08:00 WBC 12.4 H Asked by PMD to re-assess pt's swallowing. Pt is lethargic, opens eyes to tactile. Non verbal. Non vocal. Trial of 1/3 tsp applesauce with no oral pharyngeal transfer and no swallow generated. Removed residue. Brief delayed cough noted. Pt is at high risk of malnutrition, dehydration, aspiration with oral feedings at this time.Guarded prognosis for recovery. NGT for now. Suggest Palliative care consult regarding pt's wishes re:PEG re-insertion, comfort care, hospice.
--- NOTE | 2019-06-16 14:19 | PN ---
Progress Note, Physician Chief Complaint: nonverbal History of Present Illness: BP stable - Current Medication List Current Medications: Active Medications Albuterol Sulfate (Ventolin 0.083% Nebulizer Soln -) 1 amp NEB Q6H PRN PRN Reason: SHORT OF BREATH/WHEEZING Bacitracin (Bacitracin -) 1 applic TP DAILY [facility] Last Admin: 06/16/19 10:45 Dose: 1 applic Carbidopa/Levodopa (Sinemet 25/100 -) 2 each PO TID@0700,1200,1900 [facility] Last Admin: 06/16/19 11:41 Dose: 2 each Heparin Sodium (Porcine) (Heparin -) 5,000 unit SQ TID [facility] Last Admin: 06/16/19 06:02 Dose: 5,000 unit Insulin Aspart (Novolog Vial Sliding Scale -) 1 vial SQ ACHS [facility]; Protocol Last Admin: 06/16/19 12:08 Dose: 4 units Non-Formulary Medication (Rotigotine [Neupro]) 1 each TD DAILY [facility] Last Admin: 06/16/19 10:44 Dose: 1 each Pantoprazole Sodium (Protonix Iv) 40 mg IVPUSH DAILY [facility] Last Admin: 06/16/19 10:44 Dose: 40 mg Rivastigmine (Exelon Patch 4.6mg/24 Hours -) 1 each TD DAILY [facility] Last Admin: 06/16/19 10:44 Dose: 1 each - Objective Vital Signs: Vital Signs Temperature 98.8 F 06/16/19 06:00 Pulse Rate 65 06/16/19 06:00 Respiratory Rate 18 06/16/19 06:00 Blood Pressure 122/65 06/16/19 06:00 O2 Sat by Pulse Oximetry (%) 100 06/15/19 22:00 Cardiovascular: Yes: Regular Rate and Rhythm Respiratory: Yes: CTA Bilaterally Gastrointestinal: Yes: Soft Edema: No Labs: CBC, BMP 06/15/19 08:00 06/15/19 08:00 INR, PTT INR 1.16 (0.83-1.09) H 06/01/19 09:40 Assessment/Plan echo 05/2019 nl LV/RV function, impaired relaxation, elevated filling pressures, RV not well visualized, mild to mod MR, mild mod TR CXR: no congestion/effusions (+ atx) PNA, sepsis, acute respiratory failure 2/2 suspected aspiration: - manage per critical care, ID; - intubated after suspected aspiration event, now extubated - nl LV function on echo HTN: - stable DM: - manage per primary dementia, parkinson's: - manage per primary JOS, rhabdo: - renal fxn improved
[2019-06-16] MEDS ORDERED: PANTOPRAZOLE SOD 40 MG SUSPENSION PACKET NGT SCH (16:45)
[2019-06-16] MEDS: FAMOTIDINE 40 MG/5 ML ORAL SUSPENSION PO SCH ×2 (17:08→23:56)
--- NOTE | 2019-06-16 19:12 | PN ---
Teaching Attending Note Name of Resident: Miguel A Stovall ATTENDING PHYSICIAN STATEMENT I saw and evaluated the patient. I reviewed the resident's note and discussed the case with the resident. I agree with the resident's findings and plan as documented. SUBJECTIVE: Patient continues to be on NG tube feed. lying in bed barely arousable on tactile stimulation. Vital Signs Temperature 97.4 F L 06/16/19 17:48 Pulse Rate 78 06/16/19 17:48 Respiratory Rate 18 06/16/19 17:48 Blood Pressure 102/59 L 06/16/19 17:48 O2 Sat by Pulse Oximetry (%) 100 06/15/19 22:00 GENERAL: The patient is lethargic. in no acute distress. NG tube in place, sat. 91% on room air. HEAD: Normal with no signs of trauma. EYES: PERRL, extraocular movements intact, sclera anicteric, conjunctiva clear. ENT: Ears normal, oropharynx clear without exudates, moist mucous membranes. +NG -tube feeding NECK: Trachea midline, full range of motion, supple. LUNGS: decreased Breath sounds bl, no wheezes, no crackles, no accessory muscle use. HEART: Regular rate and rhythm, S1, S2 without murmur, rub or gallop. ABDOMEN: Soft, NT,ND, normoactive bowel sounds, no guarding, no rebound, no hepatosplenomegaly, no masses. EXTREMITIES: 2+ pulses, warm, well-perfused, 1+ edema b/l NEUROLOGICAL: Cranial nerves II through XII grossly intact. gait not observed. PSYCH: Normal mood, normal affect. SKIN: Warm, dry, normal turgor, no rashes or lesions noted CBCD WBC 12.4 K/mm3 (4.0-10.0) H 06/15/19 08:00 RBC 4.45 M/mm3 (3.60-5.2) 06/15/19 08:00 Hgb 10.3 GM/dL (10.7-15.3) L 06/15/19 08:00 Hct 32.4 % (32.4-45.2) 06/15/19 08:00 MCV 72.9 fl (80-96) L 06/15/19 08:00 MCHC 31.8 g/dl (32.0-36.0) L 06/15/19 08:00 RDW 17.5 % (11.6-15.6) H 06/15/19 08:00 Plt Count 352 K/MM3 (134-434) 06/15/19 08:00 MPV 9.1 fl (7.5-11.1) 06/15/19 08:00 CMP Sodium 137 mmol/L (136-145) 06/15/19 08:00 Potassium 4.2 mmol/L (3.5-5.1) 06/15/19 08:00 Chloride 102 mmol/L (98-107) 06/15/19 08:00 Carbon Dioxide 28 mmol/L (21-32) 06/15/19 08:00 Anion Gap 8 MMOL/L (8-16) 06/15/19 08:00 BUN 25.5 mg/dL (7-18) H 06/15/19 08:00 Creatinine 0.8 mg/dL (0.55-1.3) 06/15/19 08:00 Random Glucose 182 mg/dL (74-106) H 06/15/19 08:00 Calcium 8.5 mg/dL (8.5-10.1) 06/15/19 08:00 Total Bilirubin 0.3 mg/dL (0.2-1) 06/09/19 05:38 AST 21 U/L (15-37) 06/09/19 05:38 ALT 40 U/L (13-61) 06/09/19 05:38 Alkaline Phosphatase 74 U/L (45-117) 06/09/19 05:38 Total Protein 6.2 g/dl (6.4-8.2) L 06/09/19 05:38 Albumin 2.3 g/dl (3.4-5.0) L 06/09/19 05:38 CARDIAC ENZYMES Creatine Kinase 281 U/L (26-192) H 06/04/19 06:30 Troponin I < 0.02 ng/ml (0.00-0.05) 06/01/19 04:07 Current Medications Generic Name Dose Route Start Last Admin Trade Name Freq PRN Reason Stop Dose Admin Albuterol Sulfate 1 amp 06/14/19 19:19 Ventolin 0.083% Nebulizer Soln - NEB Q6H PRN SHORT OF BREATH/WHEEZING Bacitracin 1 applic 06/14/19 21:30 06/15/19 17:31 Bacitracin - TP 1 applic DAILY [facility] Administration Carbidopa/Levodopa 2 each 06/14/19 21:15 06/15/19 18:43 Sinemet 25/100 - PO 2 each TID@0700,1200,1900 [facility] Administration Heparin Sodium (Porcine) 5,000 unit 06/14/19 22:00 06/15/19 14:09 Heparin - SQ 5,000 unit TID [facility] Administration Insulin Aspart 1 vial 06/14/19 22:00 06/15/19 17:31 Novolog Vial Sliding Scale - SQ 2 units ACHS [facility] Administration Protocol Non-Formulary Medication 1 each 06/15/19 10:00 06/15/19 12:19 Rotigotine [Neupro] TD 1 each DAILY [facility] Administration Pantoprazole Sodium 40 mg 06/15/19 10:00 06/15/19 12:19 Protonix Iv IVPUSH 40 mg DAILY [facility] Administration Rivastigmine 1 each 06/15/19 10:00 06/15/19 11:55 Exelon Patch 4.6mg/24 Hours - TD 1 each DAILY [facility] Administration Home Medications Medication Instructions Recorded Ca/D3/Mag Ox/Zinc/Analytical Lab Technician/Ketan/Bor 1 each PO HS 04/13/18 [Calcium 600-D3 Plus Caplet] Carbidopa/Levodopa [Carbidopa-Levo 1 each PO TID 04/13/18 ER 50-200 Tab] Aspirin 81 mg PO DAILY 06/01/19 Melatonin 5 mg PO HS 06/01/19 Olanzapine [Zyprexa -] 7.5 mg PO DAILY 06/01/19 Omeprazole 20 mg PO DAILY 06/01/19 Rivastigmine [Exelon Patch 1 each TD DAILY 06/01/19 4.6MG/24 Hours] Rotigotine [Neupro] 1 each TD DAILY 06/01/19 06/03/19 11:40 Blood - Peripheral Venous Blood Culture - Final NO GROWTH AFTER 5 DAYS INCUBATION 06/03/19 12:00 Blood - Peripheral Venous Blood Culture - Final NO GROWTH AFTER 5 DAYS INCUBATION 06/04/19 06:20 Sputum - Oropharynx Suctioned Sputum Gram Stain - Final 06/04/19 06:20 Sputum - Oropharynx Suctioned Sputum Sputum Culture - Final Yeast Like Organism 06/01/19 00:00 Blood - Peripheral Venous Blood Culture - Final NO GROWTH AFTER 5 DAYS INCUBATION 06/01/19 00:00 Blood - Peripheral Venous Blood Culture - Final Staph Capitis Subsp Ureolyticu 06/01/19 03:00 Urine For Antigen Detection Legionella Antigen - Final 06/01/19 03:00 Urine For Antigen Detection Streptococcus pneumoniae Antigen (M - Final 06/01/19 01:20 Urine - Urine - Catheterized Urine Culture - Final NO GROWTH OBTAINED Laboratory Tests 06/01/19 06/01/19 06/02/19 16:50 20:00 05:47 BUN 37.6 H 32.5 H Creatinine 1.3 1.1 Lactic Acid 3.6 H* Creatine Kinase 1578 H 954 H 06/02/19 06/04/19 05:47 06:30 BUN Creatinine Lactic Acid 1.5 Creatine Kinase 281 H Assessment and plan: Patient is an 79yof with h/o Parkinson Disease and dementia who presented with AMS. Patient is nonverbal. # Acute hypercapnic respiratory failure s/p extubation , comfortable now. cpap if needed. Cont steroids with taper , 20mg bid --> 20mg daily iv now , last dose today # Aspiration PNA : completed total of 8 days of zosyn , stopped by Ids request , continue to monitor off IV zosyn, s/p steroid IV #Feeding NG-tube: increased the feeding back to goal of 45ml , soni get the control room helper to evaluate the patient. # JOS: improved. # Rhabdo s/p IVF # Thrombocytopenia: resolved # h/o HTN # h/o DM: cont SSI # AMS: acute metabolic encephalopathy # h/o dementia # Microcytic anemia #contaminant blood cx # hx of Parkisonism cont Sinemet # yeast in sputum DVT px; heparin SQ. diiscussed with the daughter , would like NG tube to be stopped and reassess her feeding by Annalise chapin yesterday. discussed with Annalise chapin this morning. Per Annalise Chapin : Pt is lethargic, opens eyes to tactile. Non verbal. Non vocal. Trial of 1/3 tsp applesauce with no oral pharyngeal transfer and no swallow generated. Removed residue. Brief delayed cough noted. Pt is at high risk of malnutrition, dehydration, aspiration with oral feedings at this time.Guarded prognosis for recovery. NGT for now. Suggest Palliative care consult regarding pt's wishes re:PEG re-insertion, comfort care, hospice. need to discuss with the daughter again regarding that the patient is not arousable that needing PEG-tube vs G-tube reinsertion to continue feeding. otherwise NGtube can only stay one month.
--- NOTE | 2019-06-16 19:30 | PN ---
Physical Exam: SUBJECTIVE: Patient seen and examined NAEON Slightly more arouseable OBJECTIVE: Vital Signs Period Temp Pulse Resp BP Sys/Campbell Pulse Ox Last 24 Hr 97.4 F-99.0 F 65-80 18-18 96-122/56-68 100-100 GENERAL: Lethargic. Mildly response to painful stimuli HEAD: NC/AT EYES: extraocular movements tracking movement briefly, sclera anicteric, conjunctiva clear. No ptosis. ENT: Ears normal, nares patent, NGT feed stopped NECK: Trachea midline, full range of motion, supple. LUNGS: Breath sounds equal, mildly coarse BS w/ wheezes bilaterally. Breathing on RA HEART: Regular rate and rhythm, S1, S2 without murmur, rub or gallop. ABDOMEN: Soft, nontender, nondistended, normoactive bowel sounds, no guarding, no rebound. EXTREMITIES: 2+ pulses, warm, well-perfused, no edema. BLE with nonpitting edema. DP2+ b/l NEUROLOGICAL: not opening eyes to pain, withdrawing BUE and BLE to painful stimuli. Repetitive chewing motion. Not responding to questioning SKIN: Warm, dry, normal turgor, no rashes or lesions noted Laboratory Results - last 24 hr 06/15/19 06/16/19 06/16/19 22:04 05:43 12:05 POC Glucometer 188 150 207 06/16/19 17:03 POC Glucometer 135 Active Medications Generic Name Dose Route Start Last Admin Trade Name Freq PRN Reason Stop Dose Admin Albuterol Sulfate 1 amp 06/14/19 19:19 Ventolin 0.083% Nebulizer Soln - NEB Q6H PRN SHORT OF BREATH/WHEEZING Bacitracin 1 applic 06/14/19 21:30 06/16/19 10:45 Bacitracin - TP 1 applic DAILY [facility] Administration Carbidopa/Levodopa 2 each 06/14/19 21:15 06/16/19 18:20 Sinemet 25/100 - PO 2 each TID@0700,1200,1900 [facility] Administration Famotidine 20 mg 06/16/19 16:00 06/16/19 17:08 Pepcid PO Not Given BID [facility] Heparin Sodium (Porcine) 5,000 unit 06/14/19 22:00 06/16/19 14:39 Heparin - SQ 5,000 unit TID [facility] Administration Insulin Aspart 1 vial 06/14/19 22:00 06/16/19 17:05 Novolog Vial Sliding Scale - SQ Not Given ACHS [facility] Protocol Non-Formulary Medication 1 each 06/15/19 10:00 06/16/19 10:44 Rotigotine [Neupro] TD 1 each DAILY [facility] Administration Rivastigmine 1 each 06/15/19 10:00 06/16/19 10:44 Exelon Patch 4.6mg/24 Hours - TD 1 each DAILY [facility] Administration ASSESSMENT/PLAN: 79y/o female with Parkinson's and dementia who presents with AMS and cough x 4 days. At baseline she is non-ambulatory and mental status changes from day to day (some days she is alert and oriented, can speak sentences, other days she does not speak at all). Pt was hypoxic to the 80s at ED presentation. Intubated for increased work of breathing. Flu negative. Possibly had aspiration PNA. Atelectasis vs infiltrate at Left base. Extubated on 06/09. Repeat CTH on by Neuro, w/o significant interval change; possibly chronic and superimposed sinusitis of Left maxillary antrum and sphenoid sinus. Persistent hyperglycemia prompted change of Jevity to Glucerna. Discuss with family, GOC on 06/12/19. Daughter expresses desire to avoid PEG, has strong belief that optimization of Parkinson's and Dementia drugs will help pt resolve AMS. TF held on 06/13/19 dt diarrhea. Received zosyn x8d(06/01 -06/13) for possible aspiration PNA. Failed bedside S&S evaluation w/ 05/29 tsp applesauce. Glucerna restarted on 06/16/19. Solumedrol stopped on 06/15/19. #acute hypoxic respiratory failure 2/2 multilobar PNA and sepsis -CXR improved post-intubation > CXR(06/08/19): Left base w/ minimal atelectasis, sharp rib angles > flu: negative > Echo: normal EF, impaired relaxation, elevated filling pressures, TR, MR -duonebs TID -solumedrol 20mg IVP BID --> 20mg IVP QD -zosyn 3.375g Q8H --stopped -ID(Valentino) consult: --dc abx, and observe off -Pulm(Jourdan) consult: --cw abx --taper medrol --stopped on 06/15/19 #AMS: toxic metabolic encephalopathy vs less likely CVA -CT head negative for acute processes -CT H(06/11/19): no significant change, possible chronic/superimposed Left maxillary sinusitis -urine cx negative -blood cx(06/01/19): Staph coag negative in 1 bottle --likely contaminant -blood cx(06/03/19): NGTD -dietary following -speech following --stopped on 06/15/19 #sacral skin tear -surgery(Jacob Estrada) consulted --Reposition every two hours while in bed --Air mattress recommended --Use drawsheets and Trendelenburg when repositioning to reduce friction and shear --Manageincontinence via timely cleansing, use of appropriate incontinence disposables and use of barrier ointment to intact skin --Ensure adequate hydration/nutrition, supplementation per primary team --Ensure off-loading to all bony areas (heels, ankles, hips and tailbone) with Allevyn/Optifoam --Clean open wounds with normal saline and apply bacitracin #leukocytosis -from infection vs steroid use -mild improvement continues -continue monitor #JOS, resolved -nephro following -Cardio following --diovan held --BP stable #anemia of chronic disease -microcytosis but low TIBC, unsaturated IBC, and high ferritin #Parkinson's and dementia -continue Sinimet, modified dose for NG tube, @0700, 1200, 1900 -rivostigmine patch -rotigotine patch #mild hypophosphatemia, resolved #lactic acidosis, resolved #transaminitis, improved DVT ppx SQH GI ppx protonix FEN monitor labs NG feeds: Glucerna Visit type - Emergency Visit Emergency Visit: No - New Patient This patient is new to me today: No - Critical Care Critical Care patient: No ATTENDING PHYSICIAN STATEMENT I saw and evaluated the patient. I reviewed the resident's note and discussed the case with the resident. I agree with the resident's findings and plan as documented. SUBJECTIVE: OBJECTIVE: ASSESSMENT AND PLAN:
[2019-06-17] MEDS: CARBIDOPA/LEVODOPA 25/100 TABLET (FP) PO SCH ×3 (07:06→18:43)
[2019-06-17] MEDS: HEPARIN NA (PORCINE) 5,000 UNITS/ML 1ML VIAL SQ SCH ×3 (07:06→23:29)
[2019-06-17] MEDS: INSULIN SLIDING SCALE (NOVOLOG) 1 VIAL SQ SCH ×4 (07:07→23:33)
--- NOTE | 2019-06-17 08:26 | PN ---
Progress Note (short form) - Note Progress Note: Neurology CHIEF COMPLAINT: AMS PCP: None HISTORY OF PRESENT ILLNESS: Ms. Prescott is an 79 year old female with PMH of Parkinson Disease and dementia who was BIBEMS with AMS x4 days at time of admission. Daughter was at bedside and that time and provided history. 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 At baseline she is non-ambulatory and mental status changes from day to day (some days she is alert and oriented, can speak sentences, other days she does not speak at all). Pt has had a productive cough of yellow sputum for 4 days before day of admission and has become increasingly confused and somnolent. Decreased appetite, unable to eat or drink anything. On day of admission, she was not responding at all and had a low grade fever. Daughter stated that pt has not complained of any symptoms (chest pain, abd pain , SOB, urinary complaints). On arrival to ED, pt was hypoxic in the 80s. Patient consulted for altered mental status. Ct of head reviewed and showed no evidence of a focal intracranial lesion or hemorrhage completed on 06/01 at the time of admission. Patient downgraded from ICU and currently on telemetry floor. Still sluggish, not following all commands but able to open her eyes briefly. Mental status appears to remain stable without ssignificant improvement. Repeat CT head without acute changes. ID note reviewed, received ZOsyn, now being monitored off Abx. Remains on Sinemet as well as Exelon patch for Parkinson's which does not seem to be the etiology to her mental status. Extensive clinical course as noted without significant improvement. Does awaken to voice but without meaningful responsiveness. Neurologically remains stable at this time. Active Medications Albuterol Sulfate (Ventolin 0.083% Nebulizer Soln -) 1 amp NEB Q6H PRN PRN Reason: SHORT OF BREATH/WHEEZING Bacitracin (Bacitracin -) 1 applic TP DAILY [facility] Last Admin: 06/16/19 10:45 Dose: 1 applic Carbidopa/Levodopa (Sinemet 25/100 -) 2 each PO TID@0700,1200,1900 [facility] Last Admin: 06/17/19 07:06 Dose: 2 each Famotidine (Pepcid) 20 mg PO BID [facility] Last Admin: 06/16/19 23:56 Dose: 20 mg Heparin Sodium (Porcine) (Heparin -) 5,000 unit SQ TID [facility] Last Admin: 06/17/19 07:06 Dose: 5,000 unit Insulin Aspart (Novolog Vial Sliding Scale -) 1 vial SQ ACHS [facility]; Protocol Last Admin: 06/17/19 07:07 Dose: Not Given Non-Formulary Medication (Rotigotine [Neupro]) 1 each TD DAILY [facility] Last Admin: 06/16/19 10:44 Dose: 1 each Rivastigmine (Exelon Patch 4.6mg/24 Hours -) 1 each TD DAILY [facility] Last Admin: 06/16/19 10:44 Dose: 1 each PHYSICAL EXAMINATION Vital Signs Period Temp Pulse Resp BP Sys/Campbell Pulse Ox Last 24 Hr 97.4 F-99.3 F 73-80 18-18 96-139/54-80 95-95 GENERAL: Somnolent, slightly responsive to sternal rub. HEAD: Normal with no signs of trauma. EYES: Pupils equal, round and reactive to light, extraocular movements intact, sclera anicteric, conjunctiva clear. No lid lag. EARS, NOSE, THROAT: Ears normal, nares patent, oropharynx clear without exudates. Dry mucous membranes. NECK: Normal range of motion, supple without lymphadenopathy, JVD, or masses. LUNGS: Inspiratory and expiratory wheezes throughout, accessory muscle use. HEART: Regular rate and rhythm, normal S1 and S2 without murmur, rub or gallop. ABDOMEN: Soft, nontender, not distended, normoactive bowel sounds, no guarding, no rebound, no masses. No hepatomegaly or splenomegaly. MUSCULOSKELETAL: Normal range of motion at all joints. No bony deformities or tenderness. No CVA tenderness. UPPER EXTREMITIES: 2+ pulses, warm, well-perfused. No cyanosis. No clubbing. No peripheral edema. LOWER EXTREMITIES: 2+ pulses, warm, well-perfused. No calf tenderness. No peripheral edema. NEUROLOGICAL: Unable to assess 2/2 mental status. PSYCHIATRIC: Cooperative. Good eye contact. Appropriate mood and affect. SKIN: Warm, dry, normal turgor, normal capillary refill. Sacral decubitus ulcer with sloughing skin and erythema. CBCD WBC 12.4 K/mm3 (4.0-10.0) H 06/15/19 08:00 RBC 4.45 M/mm3 (3.60-5.2) 06/15/19 08:00 Hgb 10.3 GM/dL (10.7-15.3) L 06/15/19 08:00 Hct 32.4 % (32.4-45.2) 06/15/19 08:00 MCV 72.9 fl (80-96) L 06/15/19 08:00 MCHC 31.8 g/dl (32.0-36.0) L 06/15/19 08:00 RDW 17.5 % (11.6-15.6) H 06/15/19 08:00 Plt Count 352 K/MM3 (134-434) 06/15/19 08:00 MPV 9.1 fl (7.5-11.1) 06/15/19 08:00 CMP Sodium 137 mmol/L (136-145) 06/15/19 08:00 Potassium 4.2 mmol/L (3.5-5.1) 06/15/19 08:00 Chloride 102 mmol/L (98-107) 06/15/19 08:00 Carbon Dioxide 28 mmol/L (21-32) 06/15/19 08:00 Anion Gap 8 MMOL/L (8-16) 06/15/19 08:00 BUN 25.5 mg/dL (7-18) H 06/15/19 08:00 Creatinine 0.8 mg/dL (0.55-1.3) 06/15/19 08:00 Random Glucose 182 mg/dL (74-106) H 06/15/19 08:00 Calcium 8.5 mg/dL (8.5-10.1) 06/15/19 08:00 Total Bilirubin 0.3 mg/dL (0.2-1) 06/09/19 05:38 AST 21 U/L (15-37) 06/09/19 05:38 ALT 40 U/L (13-61) 06/09/19 05:38 Alkaline Phosphatase 74 U/L (45-117) 06/09/19 05:38 Total Protein 6.2 g/dl (6.4-8.2) L 06/09/19 05:38 Albumin 2.3 g/dl (3.4-5.0) L 06/09/19 05:38 CARDIAC ENZYMES Creatine Kinase 281 U/L (26-192) H 06/04/19 06:30 Troponin I < 0.02 ng/ml (0.00-0.05) 06/01/19 04:07 ASSESSMENT/PLAN: Ms. Prescott is an 79 year old female with PMH of Parkinson Disease and dementia who was BIBEMS with AMS x4 days at time of admission. Daughter was at bedside and that time and provided history. 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 At baseline she is non-ambulatory and mental status changes from day to day (some days she is alert and oriented, can speak sentences, other days she does not speak at all). Pt has had a productive cough of yellow sputum for 4 days before day of admission and has become increasingly confused and somnolent. Decreased appetite, unable to eat or drink anything. On day of admission, she was not responding at all and had a low grade fever. Daughter stated that pt has not complained of any symptoms (chest pain, abd pain , SOB, urinary complaints). On arrival to ED, pt was hypoxic in the 80s. Patient consulted for altered mental status. Ct of head reviewed and showed no evidence of a focal intracranial lesion or hemorrhage completed on 06/01 at the time of admission. Patient downgraded from ICU and currently on telemetry floor. Slightly more awake this morning, not following all commands but able to open her eyes briefly. Patient downgraded from ICU and currently on telemetry floor. Still sluggish, not following all commands but able to open her eyes briefly. Mental status appears to remain stable without ssignificant improvement. Repeat CT head without acute changes. ID note reviewed, received ZOsyn, now being monitored off Abx. Remains on Sinemet as well as Exelon patch for Parkinson's. Parkinson's does not seem to be the etiology to her mental status. Extensive clinical course as noted without significant improvement. ID note reviewed, received ZOsyn, now being monitored off Abx, followed by the recommendations. Maintain adequate hydration, frequent orientation whenever able. Consider SNF placement if able. Does awaken to voice but without meaningful responsiveness. Neurologically remains stable at this time.
--- NOTE | 2019-06-17 08:51 | PN ---
Progress Note (short form) - Note Progress Note: Awakens to voice. Nonverbal. NAD. No fevers recorded. Intake & Output 06/14/19 06/15/19 06/16/19 06/17/19 23:59 23:59 23:59 23:59 Intake Total 150 1205 1570 175 Output Total 5 Balance 150 1205 1565 175 Last Vital Signs Temp Pulse Resp BP Pulse Ox 99.3 F 80 18 139/80 95 06/17/19 07:00 06/17/19 07:00 06/17/19 07:00 06/17/19 07:00 06/16/19 22:00 Active Medications Albuterol Sulfate (Ventolin 0.083% Nebulizer Soln -) 1 amp NEB Q6H PRN PRN Reason: SHORT OF BREATH/WHEEZING Bacitracin (Bacitracin -) 1 applic TP DAILY [facility] Last Admin: 06/16/19 10:45 Dose: 1 applic Carbidopa/Levodopa (Sinemet 25/100 -) 2 each PO TID@0700,1200,1900 [facility] Last Admin: 06/17/19 07:06 Dose: 2 each Famotidine (Pepcid) 20 mg PO BID [facility] Last Admin: 06/16/19 23:56 Dose: 20 mg Heparin Sodium (Porcine) (Heparin -) 5,000 unit SQ TID [facility] Last Admin: 06/17/19 07:06 Dose: 5,000 unit Insulin Aspart (Novolog Vial Sliding Scale -) 1 vial SQ ACHS [facility]; Protocol Last Admin: 06/17/19 07:07 Dose: Not Given Non-Formulary Medication (Rotigotine [Neupro]) 1 each TD DAILY [facility] Last Admin: 06/16/19 10:44 Dose: 1 each Rivastigmine (Exelon Patch 4.6mg/24 Hours -) 1 each TD DAILY [facility] Last Admin: 06/16/19 10:44 Dose: 1 each Gen: NAD at rest Heart: RRR Lung: scattered rhonchi Abd: soft, nontender Ext: no edema Laboratory Results - last 24 hr 06/16/19 06/16/19 06/16/19 12:05 17:03 23:48 POC Glucometer 207 135 190 06/17/19 07:04 POC Glucometer 126 A/P Acute Hypercapneic Respiratory Failure improving Pneumonia likely Aspiration Sepsis Lactic Acidosis Acute Kidney Injury HTN DM Parkinsons Dementia - Off ABX - Monitor off systemic steroids - inhaled bronchodilators - o2 to keep SpO2 >90% - aspiration precautions - DVT prophylaxis - DC planning Dr Collins
[2019-06-17 09:03] LABS: HEMATOCRIT 32.8 % (32.4-45.2); HEMOGLOBIN 10.4 GM/dL (10.7-15.3); MCH 23.1 pg (25.7-33.7); MCHC 31.8 g/dl (32.0-36.0); MEAN CELL VOLUME 72.6 fl (80-96); MEAN PLT VOLUME 9.4 fl (7.5-11.1); PLATELET COUNT 364 K/MM3 (134-434); RBC 4.52 M/mm3 (3.60-5.2); RDW 17.7 % (11.6-15.6); WHITE BLOOD COUNT 11.6 K/mm3 (4.0-10.0)
[2019-06-17 10:01] LABS: CALCIUM 8.4 mg/dL (8.5-10.1); CREATININE 0.7 mg/dL (0.55-1.3); MAGNESIUM 1.9 mg/dL (1.8-2.4); PHOSPHOROUS 3.5 mg/dL (2.5-4.9); POTASSIUM 4.3 mmol/L (3.5-5.1)
[2019-06-17] MEDS ORDERED: PT OWN MED DRAWER 7, Y5N ONE (10:07)
[2019-06-17] MEDS: PATIENT'S OWN MEDICATION (NON-FORMULARY) (Rotigotine [Neupro] 1 EACH) TD SCH (10:13)
[2019-06-17] MEDS: FAMOTIDINE 40 MG/5 ML ORAL SUSPENSION PO SCH ×2 (10:14→23:30)
[2019-06-17] MEDS: RIVASTIGMINE 4.6 MG/24 HOURS TRANSDERMAL PATCH TD SCH (10:14)
[2019-06-17] MEDS: BACITRACIN 15 GM TUBE TOPICAL OINTMENT TP SCH (12:00)
--- NOTE | 2019-06-17 14:04 | PN ---
Progress Note (short form) - Note Progress Note: s: sleeping, not rousable Current Medications Generic Name Dose Route Start Last Admin Trade Name Freq PRN Reason Stop Dose Admin Albuterol Sulfate 1 amp 06/14/19 19:19 Ventolin 0.083% Nebulizer Soln - NEB Q6H PRN SHORT OF BREATH/WHEEZING Bacitracin 1 applic 06/14/19 21:30 06/17/19 12:00 Bacitracin - TP 1 applic DAILY [facility] Administration Carbidopa/Levodopa 2 each 06/14/19 21:15 06/17/19 12:15 Sinemet 25/100 - PO 2 each TID@0700,1200,1900 [facility] Administration Famotidine 20 mg 06/16/19 16:00 06/17/19 10:14 Pepcid PO 20 mg BID [facility] Administration Heparin Sodium (Porcine) 5,000 unit 06/14/19 22:00 06/17/19 13:25 Heparin - SQ 5,000 unit TID [facility] Administration Insulin Aspart 1 vial 06/14/19 22:00 06/17/19 12:21 Novolog Vial Sliding Scale - SQ 2 units ACHS [facility] Administration Protocol Non-Formulary Medication 1 each 06/15/19 10:00 06/17/19 10:13 Rotigotine [Neupro] TD 1 each DAILY [facility] Administration Rivastigmine 1 each 06/15/19 10:00 06/17/19 10:14 Exelon Patch 4.6mg/24 Hours - TD 1 each DAILY [facility] Administration Vital Signs Period Temp Pulse Resp BP Sys/Campbell Pulse Ox Last 24 Hr 97.4 F-99.3 F 76-80 18-18 102-139/54-80 95-95 Constitutional: Yes: No Distress, Calm Neck: Yes: Supple, Trachea Midline Respiratory: Yes: Regular, Diminished Gastrointestinal: Yes: Normal Bowel Sounds, Soft Cardiovascular: Yes: Regular Rate and Rhythm JVD: No Extremities: No: Cold Edema: No Integumentary: No: Jaundice Neurological: Yes: Lethargy Psychiatric: No: Agitated CBC, BMP 06/17/19 07:52 06/17/19 07:52 echo 05/2019 nl LV/RV function, impaired relaxation, elevated filling pressures, RV not well visualized, mild to mod MR, mild mod TR CXR: no congestion/effusions (+ atx) PNA, sepsis, acute respiratory failure 2/2 suspected aspiration: - manage per critical care, ID; - intubated after suspected aspiration event, now extubated - nl LV function on echo HTN: - stable DM: - manage per primary dementia, parkinson's: - manage per primary JOS, rhabdo: - renal fxn improved
--- NOTE | 2019-06-17 15:02 | PN ---
Progress Note, BUSINESS PROCESS COORDINATOR - Note Progress Note: Selected Entries 06/16/19 06/16/19 06/16/19 01:36 06:00 14:00 Supper Temperature 98.1 F 98.8 F 99.0 F 06/16/19 06/16/19 06/16/19 17:48 22:00 23:24 Supper NPO Temperature 97.4 F L 98.6 F 06/17/19 07:00 Supper Temperature 99.3 F Laboratory Tests 06/14/19 06/15/19 06/17/19 11:18 08:00 07:52 WBC 15.1 H 12.4 H 11.6 H No functional improvement. Lethargy. Tolerating NGT feedings. Pt unable to tolerate PO trials at this time.
--- NOTE | 2019-06-17 18:23 | PN ---
Physical Exam: SUBJECTIVE: Patient seen and examined NAEON slightly move BUE spontaneously OBJECTIVE: Vital Signs Period Temp Pulse Resp BP Sys/Campbell Pulse Ox Last 24 Hr 98.3 F-99.3 F 72-84 18-18 98-139/52-80 95-95 GENERAL: Lethargic. Mildly response to painful stimuli HEAD: NC/AT EYES: extraocular movements tracking movement briefly, sclera anicteric, conjunctiva clear. No ptosis. ENT: Ears normal, nares patent, NGT feed stopped NECK: Trachea midline, full range of motion, supple. LUNGS: Breath sounds equal, mildly coarse BS w/ wheezes bilaterally. Breathing on RA HEART: Regular rate and rhythm, S1, S2 without murmur, rub or gallop. ABDOMEN: Soft, nontender, nondistended, normoactive bowel sounds, no guarding, no rebound. EXTREMITIES: 2+ pulses, warm, well-perfused, no edema. BLE with nonpitting edema. DP2+ b/l NEUROLOGICAL: slightly opening eyes to pain, withdrawing BUE and BLE to painful stimuli. Lifting arms intermittently. Repetitive chewing motion. Not responding to questioning SKIN: Warm, dry, normal turgor, no rashes or lesions noted Laboratory Results - last 24 hr 06/16/19 06/17/19 06/17/19 23:48 07:04 07:52 WBC 11.6 H RBC 4.52 Hgb 10.4 L Hct 32.8 MCV 72.6 L MCH 23.1 L MCHC 31.8 L RDW 17.7 H Plt Count 364 MPV 9.4 Sodium Potassium Chloride Carbon Dioxide Anion Gap BUN Creatinine Est GFR (CKD-EPI)AfAm Est GFR (CKD-EPI)NonAf POC Glucometer 190 126 Random Glucose Calcium Phosphorus Magnesium 06/17/19 06/17/19 07:52 12:13 WBC RBC Hgb Hct MCV MCH MCHC RDW Plt Count MPV Sodium 139 Potassium 4.3 Chloride 103 Carbon Dioxide 29 Anion Gap 7 L BUN 17.0 Creatinine 0.7 Est GFR (CKD-EPI)AfAm 94.18 Est GFR (CKD-EPI)NonAf 81.26 POC Glucometer 151 Random Glucose 126 H Calcium 8.4 L Phosphorus 3.5 Magnesium 1.9 Active Medications Generic Name Dose Route Start Last Admin Trade Name Freq PRN Reason Stop Dose Admin Albuterol Sulfate 1 amp 06/14/19 19:19 Ventolin 0.083% Nebulizer Soln - NEB Q6H PRN SHORT OF BREATH/WHEEZING Bacitracin 1 applic 06/14/19 21:30 06/17/19 12:00 Bacitracin - TP 1 applic DAILY [facility] Administration Carbidopa/Levodopa 2 each 06/14/19 21:15 06/17/19 12:15 Sinemet 25/100 - PO 2 each TID@0700,1200,1900 [facility] Administration Famotidine 20 mg 06/16/19 16:00 06/17/19 10:14 Pepcid PO 20 mg BID [facility] Administration Heparin Sodium (Porcine) 5,000 unit 06/14/19 22:00 06/17/19 13:25 Heparin - SQ 5,000 unit TID [facility] Administration Insulin Aspart 1 vial 06/14/19 22:00 06/17/19 12:21 Novolog Vial Sliding Scale - SQ 2 units ACHS [facility] Administration Protocol Non-Formulary Medication 1 each 06/15/19 10:00 06/17/19 10:13 Rotigotine [Neupro] TD 1 each DAILY [facility] Administration Rivastigmine 1 each 06/15/19 10:00 06/17/19 10:14 Exelon Patch 4.6mg/24 Hours - TD 1 each DAILY [facility] Administration ASSESSMENT/PLAN: 79y/o female with Parkinson's and dementia who presents with AMS and cough x 4 days. At baseline she is non-ambulatory and mental status changes from day to day (some days she is alert and oriented, can speak sentences, other days she does not speak at all). Admitted for AMS. Likely aspiration PNA. Pt was hypoxic to the 80s at ED presentation. Intubated for increased work of breathing. Flu negative. Atelectasis vs infiltrate at Left base. Extubated on 06/09. Repeat CTH on 06/11/19 by Neuro, w/o significant interval change; possibly chronic and superimposed sinusitis of Left maxillary antrum and sphenoid sinus. Daughter expresses desire to avoid PEG, has strong belief that optimization of Parkinson' s and Dementia drugs will help pt resolve AMS. Received zosyn x8d(06/01 -06/13) for possible aspiration PNA. Failing bedside S&S evaluation. TF via NGT. Solumedrol stopped on 06/15/19. GI(Aaron) consult for possible PEG. #acute hypoxic respiratory failure 2/2 multilobar PNA and sepsis -CXR improved post-intubation > CXR(06/08/19): Left base w/ minimal atelectasis, sharp rib angles > flu: negative > Echo: normal EF, impaired relaxation, elevated filling pressures, TR, MR -duonebs TID -solumedrol 20mg IVP BID --> 20mg IVP QD -zosyn 3.375g Q8H --stopped -ID(Valentino) consult: --dc abx, and observe off -Pulm(Jourdan) consult: --taper medrol --stopped on 06/15/19 #AMS: toxic metabolic encephalopathy vs less likely CVA -CT head negative for acute processes -CT H(06/11/19): no significant change, possible chronic/superimposed Left maxillary sinusitis -urine cx negative -blood cx(06/01/19): Staph coag negative in 1 bottle --likely contaminant -blood cx(06/03/19): NGTD -dietary following -speech following #inability to tolerate PO --2/2 AMS -NGT feeds(Glucerna) -PEG(Aaron) evaluation --pending #sacral skin tear -surgery(Jacob Estrada) consulted --Reposition every two hours while in bed --Air mattress recommended --Use drawsheets and Trendelenburg when repositioning to reduce friction and shear --Manageincontinence via timely cleansing, use of appropriate incontinence disposables and use of barrier ointment to intact skin --Ensure adequate hydration/nutrition, supplementation per primary team --Ensure off-loading to all bony areas (heels, ankles, hips and tailbone) with Allevyn/Optifoam --Clean open wounds with normal saline and apply bacitracin #leukocytosis -from infection vs steroid use -mild improvement continues -continue monitor #JOS, resolved -nephro following -Cardio following --diovan held --BP stable #anemia of chronic disease -microcytosis but low TIBC, unsaturated IBC, and high ferritin #Parkinson's and dementia -continue Sinimet, modified dose for NG tube, @0700, 1200, 1900 -rivostigmine patch -rotigotine patch #mild hypophosphatemia, resolved #lactic acidosis, resolved #transaminitis, improved DVT ppx SQH GI ppx protonix FEN monitor labs NG feeds: Glucerna --consult GI(Aaron) for PEG Visit type - Emergency Visit Emergency Visit: No - New Patient This patient is new to me today: No - Critical Care Critical Care patient: No ATTENDING PHYSICIAN STATEMENT I saw and evaluated the patient. I reviewed the resident's note and discussed the case with the resident. I agree with the resident's findings and plan as documented. SUBJECTIVE: OBJECTIVE: ASSESSMENT AND PLAN:
--- NOTE | 2019-06-17 20:05 | PN ---
Teaching Attending Note Name of Resident: Miguel A Stovall ATTENDING PHYSICIAN STATEMENT I saw and evaluated the patient. I reviewed the resident's note and discussed the case with the resident. I agree with the resident's findings and plan as documented. SUBJECTIVE: not able to obtain hx OBJECTIVE: MMM. CV: RRR Lungs: clear anteriorly Abd: soft, NT, Nd , NL BS Ext: trace edema on feet. ASSESSMENT AND PLAN: 79 y/o lady with h/o Parkinson Disease and dementia who presented with AMS. 1- Acute hypercapnic resp failure.resolved 2- PNA, likely aspiration PNA . finsiehd ABx 3- JOS: improved. 4- Rhabdo : resolved 5- Thrombocytopenia: resolved 6- h/o HTN 7- h/o DM 8- AMS: acute metabolic encephalopathy 9- h/o dementia 10- Microcytic anemia 11- contaminant blood cx Plan: - montior resp status - case d/w carmen by team. daughter will consider PEG if d/w Dr. Walker. will consult Dr. Walker - TF through NG - cont Sinemet - heparin SQ. - cont SSI
[2019-06-18] MEDS: HEPARIN NA (PORCINE) 5,000 UNITS/ML 1ML VIAL SQ SCH ×3 (06:36→23:19)
[2019-06-18] MEDS: CARBIDOPA/LEVODOPA 25/100 TABLET (FP) PO SCH ×3 (06:36→18:21)
[2019-06-18] MEDS: INSULIN SLIDING SCALE (NOVOLOG) 1 VIAL SQ SCH ×4 (06:43→23:21)
--- NOTE | 2019-06-18 08:44 | PN ---
Progress Note (short form) - Note Progress Note: Neurology CHIEF COMPLAINT: AMS PCP: None HISTORY OF PRESENT ILLNESS: Ms. Prescott is an 79 year old female with PMH of Parkinson Disease and dementia who was BIBEMS with AMS x4 days at time of admission. Daughter was at bedside and that time and provided history. Pt lives at home (no SPEECH CORRECTION ASSISTANT or VNS) with daughter as primary manager maintenance. At baseline she is non-ambulatory and mental status changes from day to day (some days she is alert and oriented, can speak sentences, other days she does not speak at all). Pt has had a productive cough of yellow sputum for 4 days before day of admission and has become increasingly confused and somnolent. Decreased appetite, unable to eat or drink anything. On day of admission, she was not responding at all and had a low grade fever. Daughter stated that pt has not complained of any symptoms (chest pain, abd pain , SOB, urinary complaints). On arrival to ED, pt was hypoxic in the 80s. Patient consulted for altered mental status. Ct of head reviewed and showed no evidence of a focal intracranial lesion or hemorrhage completed on 06/01 at the time of admission. Patient downgraded from ICU and currently on telemetry floor. Still sluggish, not following all commands but able to open her eyes briefly. Mental status appears to remain stable without ssignificant improvement. Repeat CT head without acute changes. ID note reviewed, received ZOsyn, now being monitored off Abx. Remains on Sinemet as well as Exelon patch for Parkinson's which does not seem to be the etiology to her mental status. Extensive clinical course as noted without significant improvement. Does awaken to voice but without meaningful responsiveness. Reviewed note from hospitalist, possible PEG tube feeding plan, currently NG tube. Active Medications Albuterol Sulfate (Ventolin 0.083% Nebulizer Soln -) 1 amp NEB Q6H PRN PRN Reason: SHORT OF BREATH/WHEEZING Bacitracin (Bacitracin -) 1 applic TP DAILY [facility] Last Admin: 06/17/19 12:00 Dose: 1 applic Carbidopa/Levodopa (Sinemet 25/100 -) 2 each PO TID@0700,1200,1900 [facility] Last Admin: 06/18/19 06:36 Dose: 2 each Famotidine (Pepcid) 20 mg PO BID [facility] Last Admin: 06/17/19 23:30 Dose: 20 mg Heparin Sodium (Porcine) (Heparin -) 5,000 unit SQ TID [facility] Last Admin: 06/18/19 06:36 Dose: 5,000 unit Insulin Aspart (Novolog Vial Sliding Scale -) 1 vial SQ ACHS [facility]; Protocol Last Admin: 06/18/19 06:43 Dose: Not Given Non-Formulary Medication (Rotigotine [Neupro]) 1 each TD DAILY [facility] Last Admin: 06/17/19 10:13 Dose: 1 each Rivastigmine (Exelon Patch 4.6mg/24 Hours -) 1 each TD DAILY [facility] Last Admin: 06/17/19 10:14 Dose: 1 each PHYSICAL EXAMINATION Vital Signs Period Temp Pulse Resp BP Sys/Campbell Pulse Ox Last 24 Hr 98.2 F-98.5 F 72-84 18-18 93-112/52-80 95-97 GENERAL: Somnolent, slightly responsive to sternal rub. HEAD: Normal with no signs of trauma. EYES: Pupils equal, round and reactive to light, extraocular movements intact, sclera anicteric, conjunctiva clear. No lid lag. EARS, NOSE, THROAT: Ears normal, nares patent, oropharynx clear without exudates. Dry mucous membranes. NECK: Normal range of motion, supple without lymphadenopathy, JVD, or masses. LUNGS: Inspiratory and expiratory wheezes throughout, accessory muscle use. HEART: Regular rate and rhythm, normal S1 and S2 without murmur, rub or gallop. ABDOMEN: Soft, nontender, not distended, normoactive bowel sounds, no guarding, no rebound, no masses. No hepatomegaly or splenomegaly. MUSCULOSKELETAL: Normal range of motion at all joints. No bony deformities or tenderness. No CVA tenderness. UPPER EXTREMITIES: 2+ pulses, warm, well-perfused. No cyanosis. No clubbing. No peripheral edema. LOWER EXTREMITIES: 2+ pulses, warm, well-perfused. No calf tenderness. No peripheral edema. NEUROLOGICAL: Unable to assess 2/2 mental status. PSYCHIATRIC: Cooperative. Good eye contact. Appropriate mood and affect. SKIN: Warm, dry, normal turgor, normal capillary refill. Sacral decubitus ulcer with sloughing skin and erythema. CBCD WBC 11.6 K/mm3 (4.0-10.0) H 06/17/19 07:52 RBC 4.52 M/mm3 (3.60-5.2) 06/17/19 07:52 Hgb 10.4 GM/dL (10.7-15.3) L 06/17/19 07:52 Hct 32.8 % (32.4-45.2) 06/17/19 07:52 MCV 72.6 fl (80-96) L 06/17/19 07:52 MCHC 31.8 g/dl (32.0-36.0) L 06/17/19 07:52 RDW 17.7 % (11.6-15.6) H 06/17/19 07:52 Plt Count 364 K/MM3 (134-434) 06/17/19 07:52 MPV 9.4 fl (7.5-11.1) 06/17/19 07:52 CMP Sodium 139 mmol/L (136-145) 06/17/19 07:52 Potassium 4.3 mmol/L (3.5-5.1) 06/17/19 07:52 Chloride 103 mmol/L (98-107) 06/17/19 07:52 Carbon Dioxide 29 mmol/L (21-32) 06/17/19 07:52 Anion Gap 7 MMOL/L (8-16) L 06/17/19 07:52 BUN 17.0 mg/dL (7-18) 06/17/19 07:52 Creatinine 0.7 mg/dL (0.55-1.3) 06/17/19 07:52 Random Glucose 126 mg/dL (74-106) H 06/17/19 07:52 Calcium 8.4 mg/dL (8.5-10.1) L 06/17/19 07:52 Total Bilirubin 0.3 mg/dL (0.2-1) 06/09/19 05:38 AST 21 U/L (15-37) 06/09/19 05:38 ALT 40 U/L (13-61) 06/09/19 05:38 Alkaline Phosphatase 74 U/L (45-117) 06/09/19 05:38 Total Protein 6.2 g/dl (6.4-8.2) L 06/09/19 05:38 Albumin 2.3 g/dl (3.4-5.0) L 06/09/19 05:38 CARDIAC ENZYMES Creatine Kinase 281 U/L (26-192) H 06/04/19 06:30 Troponin I < 0.02 ng/ml (0.00-0.05) 06/01/19 04:07 ASSESSMENT/PLAN: Ms. Prescott is an 79 year old female with PMH of Parkinson Disease and dementia who was BIBEMS with AMS x4 days at time of admission. Daughter was at bedside and that time and provided history. Pt lives at home (no SPEECH CORRECTION ASSISTANT or VNS) with daughter as primary manager maintenance. At baseline she is non-ambulatory and mental status changes from day to day (some days she is alert and oriented, can speak sentences, other days she does not speak at all). Pt has had a productive cough of yellow sputum for 4 days before day of admission and has become increasingly confused and somnolent. Decreased appetite, unable to eat or drink anything. On day of admission, she was not responding at all and had a low grade fever. Daughter stated that pt has not complained of any symptoms (chest pain, abd pain , SOB, urinary complaints). On arrival to ED, pt was hypoxic in the 80s. Patient consulted for altered mental status. Ct of head reviewed and showed no evidence of a focal intracranial lesion or hemorrhage completed on 06/01 at the time of admission. Patient downgraded from ICU and currently on telemetry floor. Slightly more awake this morning, not following all commands but able to open her eyes briefly. Patient downgraded from ICU and currently on telemetry floor. Still sluggish, not following all commands but able to open her eyes briefly. Mental status appears to remain stable without ssignificant improvement. Repeat CT head without acute changes. ID note reviewed, received ZOsyn, now being monitored off Abx. Remains on Sinemet as well as Exelon patch for Parkinson's. Parkinson's does not seem to be the etiology to her mental status. Extensive clinical course as noted without significant improvement. ID note reviewed, received ZOsyn, now being monitored off Abx, followed by the recommendations. Maintain adequate hydration, frequent orientation whenever able. Consider SNF placement if able. Does awaken to voice but without meaningful responsiveness. Reviewed note from hospitalist, possible PEG tube feeding plan, currently NG tube.
[2019-06-18 08:51] LABS: HEMOGLOBIN 10.5 GM/dL (10.7-15.3); MCH 23.2 pg (25.7-33.7); MCHC 31.9 g/dl (32.0-36.0); MEAN CELL VOLUME 72.7 fl (80-96); MEAN PLT VOLUME 9.5 fl (7.5-11.1); PLATELET COUNT 366 K/MM3 (134-434); RBC 4.54 M/mm3 (3.60-5.2); RDW 17.9 % (11.6-15.6); WHITE BLOOD COUNT 13.5 K/mm3 (4.0-10.0)
[2019-06-18 09:14] LABS: BLOOD UREA NITROGEN 21.1 mg/dL (7-18); CALCIUM 8.7 mg/dL (8.5-10.1); CREATININE 0.8 mg/dL (0.55-1.3); MAGNESIUM 2.2 mg/dL (1.8-2.4); PHOSPHOROUS 3.5 mg/dL (2.5-4.9); POTASSIUM 4.5 mmol/L (3.5-5.1)
[2019-06-18] MEDS: FAMOTIDINE 40 MG/5 ML ORAL SUSPENSION PO SCH ×2 (09:22→23:22)
[2019-06-18] MEDS: RIVASTIGMINE 4.6 MG/24 HOURS TRANSDERMAL PATCH TD SCH (09:22)
[2019-06-18] MEDS: PATIENT'S OWN MEDICATION (NON-FORMULARY) (Rotigotine [Neupro] 1 EACH) TD SCH (09:23)
--- NOTE | 2019-06-18 10:10 | PN ---
Progress Note, MEDICAL COLLECTIONS SPECIALIST - Note Progress Note: Reviewed case with Palliative care this am who discussed case with pt's daughter , Kandice who is a nurse. Pt was alert during their visit, responded in single words, followed simple commands for her daughter. Pt's daughter feels she can swallow and does not want PEG insertion. Pt's daughter told me she was fed by her daughter upon admission by syringe in the ED, limited arousability when I saw the pt. Pt was intubated, now extubated , tolerating Ngt which can not be used long term care social worker. I would like to assess pt with daughter present for best result, however, Palliative care told me her daughter is unable to come in daytime. Reassess today. Pt not arousable. Pending GI consult. Suggest PEG insertion, if family agrees, with possible PO trials in the future, if indicated and tolersated.
--- NOTE | 2019-06-18 10:29 | PN ---
Progress Note (short form) - Note Progress Note: NAD. Clinically no significant changes. Nonverbal. No fevers recorded. Intake & Output 06/15/19 06/16/19 06/17/19 06/18/19 23:59 23:59 23:59 23:59 Intake Total 1205 1570 1999 Output Total 5 Balance 1205 1565 1999 Last Vital Signs Temp Pulse Resp BP Pulse Ox 97.8 F 78 20 122/68 97 06/18/19 10:00 06/18/19 10:00 06/18/19 10:00 06/18/19 10:00 06/17/19 22:00 Active Medications Albuterol Sulfate (Ventolin 0.083% Nebulizer Soln -) 1 amp NEB Q6H PRN PRN Reason: SHORT OF BREATH/WHEEZING Bacitracin (Bacitracin -) 1 applic TP DAILY [facility] Last Admin: 06/17/19 12:00 Dose: 1 applic Carbidopa/Levodopa (Sinemet 25/100 -) 2 each PO TID@0700,1200,1900 [facility] Last Admin: 06/18/19 06:36 Dose: 2 each Famotidine (Pepcid) 20 mg PO BID [facility] Last Admin: 06/18/19 09:22 Dose: 20 mg Heparin Sodium (Porcine) (Heparin -) 5,000 unit SQ TID [facility] Last Admin: 06/18/19 06:36 Dose: 5,000 unit Insulin Aspart (Novolog Vial Sliding Scale -) 1 vial SQ ACHS [facility]; Protocol Last Admin: 06/18/19 06:43 Dose: Not Given Non-Formulary Medication (Rotigotine [Neupro]) 1 each TD DAILY [facility] Last Admin: 06/18/19 09:23 Dose: 1 each Rivastigmine (Exelon Patch 4.6mg/24 Hours -) 1 each TD DAILY [facility] Last Admin: 06/18/19 09:22 Dose: 1 each Gen: NAD at rest Heart: RRR Lung: scattered rhonchi Abd: soft, nontender Ext: no edema Laboratory Results - last 24 hr 06/17/19 06/17/19 06/17/19 12:13 18:56 23:32 WBC RBC Hgb Hct MCV MCH MCHC RDW Plt Count MPV Sodium Potassium Chloride Carbon Dioxide Anion Gap BUN Creatinine Est GFR (CKD-EPI)AfAm Est GFR (CKD-EPI)NonAf POC Glucometer 151 142 141 Random Glucose Calcium Phosphorus Magnesium 06/18/19 06/18/19 06/18/19 06:42 07:50 07:50 WBC 13.5 H RBC 4.54 Hgb 10.5 L Hct 33.0 MCV 72.7 L MCH 23.2 L MCHC 31.9 L RDW 17.9 H Plt Count 366 MPV 9.5 Sodium 136 Potassium 4.5 Chloride 103 Carbon Dioxide 27 Anion Gap 7 L BUN 21.1 H Creatinine 0.8 Est GFR (CKD-EPI)AfAm 80.14 Est GFR (CKD-EPI)NonAf 69.14 POC Glucometer 125 Random Glucose 130 H Calcium 8.7 Phosphorus 3.5 Magnesium 2.2 A/P Acute Hypercapneic Respiratory Failure improving Pneumonia likely Aspiration Sepsis Lactic Acidosis Acute Kidney Injury HTN DM Parkinsons Dementia - Off ABX - Monitor off systemic steroids - inhaled bronchodilators - o2 to keep SpO2 >90% - aspiration precautions - DVT prophylaxis - Discussions for GOC ongoing: Family is not realistic about overall condition and outcome Dr Collins
[2019-06-18] MEDS: BACITRACIN 15 GM TUBE TOPICAL OINTMENT TP SCH (14:20)
--- NOTE | 2019-06-18 15:53 | PN ---
Progress Note (short form) - Note Progress Note: s: sleeping, not rousable Current Medications Albuterol Sulfate (Ventolin 0.083% Nebulizer Soln -) 1 amp NEB Q6H PRN PRN Reason: SHORT OF BREATH/WHEEZING Bacitracin (Bacitracin -) 1 applic TP DAILY [facility] Last Admin: 06/18/19 14:20 Dose: 1 applic Carbidopa/Levodopa (Sinemet 25/100 -) 2 each PO TID@0700,1200,1900 [facility] Last Admin: 06/18/19 14:20 Dose: 2 each Collagenase (Santyl -) 1 applic TP DAILY [facility]; Protocol Famotidine (Pepcid) 20 mg PO BID [facility] Last Admin: 06/18/19 09:22 Dose: 20 mg Heparin Sodium (Porcine) (Heparin -) 5,000 unit SQ TID [facility] Last Admin: 06/18/19 14:20 Dose: 5,000 unit Insulin Aspart (Novolog Vial Sliding Scale -) 1 vial SQ ACHS [facility]; Protocol Last Admin: 06/18/19 11:59 Dose: 2 units Non-Formulary Medication (Rotigotine [Neupro]) 1 each TD DAILY [facility] Last Admin: 06/18/19 09:23 Dose: 1 each Rivastigmine (Exelon Patch 4.6mg/24 Hours -) 1 each TD DAILY [facility] Last Admin: 06/18/19 09:22 Dose: 1 each Vital Signs Period Temp Pulse Resp BP Sys/Campbell Pulse Ox Last 24 Hr 97.8 F-98.5 F 74-78 18-20 93-122/64-70 96-97 Constitutional: Yes: No Distress, Calm Neck: Yes: Supple, Trachea Midline Respiratory: Yes: Regular, Diminished Gastrointestinal: Yes: Normal Bowel Sounds, Soft Cardiovascular: Yes: Regular Rate and Rhythm JVD: No Extremities: No: Cold Edema: No Integumentary: No: Jaundice Neurological: Yes: Lethargy Psychiatric: No: Agitated echo 05/2019 nl LV/RV function, impaired relaxation, elevated filling pressures, RV not well visualized, mild to mod MR, mild mod TR CXR: no congestion/effusions (+ atx) PNA, sepsis, acute respiratory failure 2/2 suspected aspiration: - manage per critical care, ID; - intubated after suspected aspiration event, now extubated - nl LV function on echo HTN: - stable DM: - manage per primary dementia, parkinson's: - manage per primary JOS, rhabdo: - renal fxn improved
[2019-06-18] MEDS: COLLAGENASE CLOSTRIDIUM HIST. 30 GRAMS TUBE TP SCH (17:06)
--- NOTE | 2019-06-18 17:25 | PN ---
Teaching Attending Note Name of Resident: Miguel A Wiseung ATTENDING PHYSICIAN STATEMENT I saw and evaluated the patient. I reviewed the resident's note and discussed the case with the resident. I agree with the resident's findings and plan as documented. SUBJECTIVE: No events over night. OBJECTIVE: MMM. CV: RRR Lungs: clear posteriorly Abd: soft, NT, Nd , NL BS. Ext: trace edema on feet. Skin: sacral decub ulcer with a large escar in middle, and no draiange. unable to stage . no erythema on surrounding skin ASSESSMENT AND PLAN: 79 y/o lady with h/o Parkinson Disease and dementia who presented with AMS. 1- Acute hypercapnic resp failure. Resolved 2- PNA, likely aspiration PNA . finsiehd ABx 3- JOS: improved. 4- Rhabdo : resolved 5- Thrombocytopenia: resolved 6- h/o HTN 7- h/o DM 8- AMS: acute metabolic encephalopathy 9- h/o dementia 10- Microcytic anemia 11- contaminant blood cx 12- Unstageable sacral decub ulcer Plan: - Apply santyl to the decub ulcer. - surgical consult to evaluate for debridement - The patient needs a PEG to sustain her nutrition. daughter is not agreeable to hospice, and would like the patient to be fed. she understands that NGT is temporary, and need a senior living solution . She agreed to GI eval by DR. Walker. Team d/w Dr. Walker, who referred to Dr. Dickerson. awaiting consult . - TF through NG - cont Sinemet - heparin SQ. - cont SSI
--- NOTE | 2019-06-18 18:46 | PN ---
Physical Exam: SUBJECTIVE: Patient seen and examined NAEON Occasionally opening eyes OBJECTIVE: Vital Signs Period Temp Pulse Resp BP Sys/Campbell Pulse Ox Last 24 Hr 97.8 F-99.8 F 74-87 18-20 112-128/68-78 96-97 GENERAL: Lethargic. Mildly response to painful stimuli HEAD: NC/AT EYES: extraocular movements tracking movement briefly, sclera anicteric, conjunctiva clear. No ptosis. ENT: Ears normal, nares patent, NGT feed NECK: Trachea midline, full range of motion, supple. LUNGS: Breath sounds equal, mildly coarse BS w/ wheezes bilaterally. Breathing on RA HEART: Regular rate and rhythm, S1, S2 without murmur, rub or gallop. ABDOMEN: Soft, nontender, nondistended, normoactive bowel sounds, no guarding, no rebound. SACRUM: Right lower sacrum/buttock >8cm area of darkened and indurated nonblanchable skin. Medial edge with partial thickness wound, w/ fibrinous exudate, no notable flocculence EXTREMITIES: 2+ pulses, warm, well-perfused, no edema. BLE with nonpitting edema. DP2+ b/l NEUROLOGICAL: slightly opening eyes to loud questioning/pain, withdrawing BUE and BLE to painful stimuli. Lifting arms intermittently. Not responding to questioning SKIN: Warm, dry, normal turgor, no rashes or lesions noted Laboratory Results - last 24 hr 06/17/19 06/17/19 06/18/19 18:56 23:32 06:42 WBC RBC Hgb Hct MCV MCH MCHC RDW Plt Count MPV Sodium Potassium Chloride Carbon Dioxide Anion Gap BUN Creatinine Est GFR (CKD-EPI)AfAm Est GFR (CKD-EPI)NonAf POC Glucometer 142 141 125 Random Glucose Calcium Phosphorus Magnesium 06/18/19 06/18/19 06/18/19 07:50 07:50 11:51 WBC 13.5 H RBC 4.54 Hgb 10.5 L Hct 33.0 MCV 72.7 L MCH 23.2 L MCHC 31.9 L RDW 17.9 H Plt Count 366 MPV 9.5 Sodium 136 Potassium 4.5 Chloride 103 Carbon Dioxide 27 Anion Gap 7 L BUN 21.1 H Creatinine 0.8 Est GFR (CKD-EPI)AfAm 80.14 Est GFR (CKD-EPI)NonAf 69.14 POC Glucometer 167 Random Glucose 130 H Calcium 8.7 Phosphorus 3.5 Magnesium 2.2 06/18/19 17:00 WBC RBC Hgb Hct MCV MCH MCHC RDW Plt Count MPV Sodium Potassium Chloride Carbon Dioxide Anion Gap BUN Creatinine Est GFR (CKD-EPI)AfAm Est GFR (CKD-EPI)NonAf POC Glucometer 142 Random Glucose Calcium Phosphorus Magnesium Active Medications Generic Name Dose Route Start Last Admin Trade Name Freq PRN Reason Stop Dose Admin Albuterol Sulfate 1 amp 06/14/19 19:19 Ventolin 0.083% Nebulizer Soln - NEB Q6H PRN SHORT OF BREATH/WHEEZING Bacitracin 1 applic 06/14/19 21:30 06/18/19 14:20 Bacitracin - TP 1 applic DAILY [facility] Administration Carbidopa/Levodopa 2 each 06/14/19 21:15 06/18/19 18:21 Sinemet 25/100 - PO 2 each TID@0700,1200,1900 [facility] Administration Collagenase 1 applic 06/18/19 15:30 06/18/19 17:06 Santyl - TP Not Given DAILY [facility] Protocol Famotidine 20 mg 06/16/19 16:00 06/18/19 09:22 Pepcid PO 20 mg BID [facility] Administration Heparin Sodium (Porcine) 5,000 unit 06/14/19 22:00 06/18/19 14:20 Heparin - SQ 5,000 unit TID [facility] Administration Insulin Aspart 1 vial 06/14/19 22:00 06/18/19 17:06 Novolog Vial Sliding Scale - SQ Not Given ACHS [facility] Protocol Non-Formulary Medication 1 each 06/15/19 10:00 06/18/19 09:23 Rotigotine [Neupro] TD 1 each DAILY [facility] Administration Rivastigmine 1 each 06/15/19 10:00 06/18/19 09:22 Exelon Patch 4.6mg/24 Hours - TD 1 each DAILY [facility] Administration ASSESSMENT/PLAN: 79y/o female with Parkinson's and dementia who presents with AMS and cough x 4 days. At baseline she is non-ambulatory and mental status changes from day to day (some days she is alert and oriented, can speak sentences, other days she does not speak at all). Admitted for AMS. Likely aspiration PNA. Pt was hypoxic to the 80s at ED presentation. Intubated for increased work of breathing. Flu negative. Atelectasis vs infiltrate at Left base. Extubated on 06/09. Repeat CTH on 06/11/19 by Neuro, w/o significant interval change; possibly chronic and superimposed sinusitis of Left maxillary antrum and sphenoid sinus. Daughter expresses desire to avoid PEG, has strong belief that optimization of Parkinson' s and Dementia drugs will help pt resolve AMS. Received zosyn x8d(06/01 -06/13) for possible aspiration PNA. Failing bedside S&S evaluation. TF via NGT. Solumedrol stopped on 06/15/19. GI(Aaron--DiGiorno) consult for possible PEG. Sacral wound worsening. #acute hypoxic respiratory failure 2/2 multilobar PNA and sepsis -CXR improved post-intubation > CXR(06/08/19): Left base w/ minimal atelectasis, sharp rib angles > flu: negative > Echo: normal EF, impaired relaxation, elevated filling pressures, TR, MR -duonebs TID -solumedrol 20mg IVP BID --> 20mg IVP QD -zosyn 3.375g Q8H --stopped -ID(Valentino) consult: --dc abx, and observe off -Pulm(Jourdan) consult: --taper medrol --stopped on 06/15/19 #AMS: toxic metabolic encephalopathy vs less likely CVA -CT head negative for acute processes -CT H(06/11/19): no significant change, possible chronic/superimposed Left maxillary sinusitis -urine cx negative -blood cx(06/01/19): Staph coag negative in 1 bottle --likely contaminant -blood cx(06/03/19): NGTD -dietary following -speech following #inability to tolerate PO --2/2 AMS -NGT feeds(Glucerna) -PEG(Aaron-DiGiorno) evaluation --pending #sacral decubitus ulcer -surgery(Jacob Estrada) consulted --Reposition every two hours while in bed --Air mattress recommended --Use drawsheets and Trendelenburg when repositioning to reduce friction and shear --Manageincontinence via timely cleansing, use of appropriate incontinence disposables and use of barrier ointment to intact skin --Ensure adequate hydration/nutrition, supplementation per primary team --Ensure off-loading to all bony areas (heels, ankles, hips and tailbone) with Allevyn/Optifoam --Clean open wounds with normal saline and apply bacitracin -Surgery(Jade): --possible debridement on 06/19/19 #leukocytosis -from infection vs steroid use -mild improvement continues -continue monitor #JOS, resolved -nephro following -Cardio following --diovan held --BP stable #anemia of chronic disease -microcytosis but low TIBC, unsaturated IBC, and high ferritin #Parkinson's and dementia -continue Sinimet, modified dose for NG tube, @0700, 1200, 1900 -rivostigmine patch -rotigotine patch #mild hypophosphatemia, resolved #lactic acidosis, resolved #transaminitis, improved DVT ppx SQH GI ppx protonix FEN monitor labs NG feeds: Glucerna NPO at MN(possible sx 06/19/19) Visit type - Emergency Visit Emergency Visit: No - New Patient This patient is new to me today: No - Critical Care Critical Care patient: No ATTENDING PHYSICIAN STATEMENT I saw and evaluated the patient. I reviewed the resident's note and discussed the case with the resident. I agree with the resident's findings and plan as documented. SUBJECTIVE: OBJECTIVE: ASSESSMENT AND PLAN:
--- NOTE | 2019-06-18 19:40 | CON.GI ---
Consult Consult Specialty:: GI Referred by:: Hospitalist Service Reason for Consultation:: Poor PO intake - History of Present Illness Chief Complaint: Altered mental status History of Present Illness: 79F admitted for evaluation of altered mental status 06/01/18. has been admitted since. Has been getting tube feeds via NGT. Called by primary team to evaluate for PEG. She had a PEG placed 05/09/19 at [facility]. Apparently it was removed 3 months ago as it wasn't being used per patient's daughter. It was removed in office by Dr. Romario Walker. - History Source History Provided By: Medical Record - Past Medical History [employer]: Yes: Dementia, Parkinson's. No: Seizure, Syncope Cardio/Vascular: Yes: HTN, Hyperlipdemia Musculoskeletal: Yes: Other (osteoporosis) Endocrine: Yes: Diabetes Mellitus - Past Surgical History Past Surgical History: Yes: Hysterectomy, Joint Replacement (Bilateral knee surgery) - Alcohol/Substance Use Hx Alcohol Use: No - Smoking History Smoking history: Never smoked Have you smoked in the past 12 months: No - Social History Usual Living Arrangement: With Significant Other Home Medications - Allergies Allergies/Adverse Reactions: Allergies Allergy/AdvReac Type Severity Reaction Status Date / Time No Known Allergies Allergy Verified 05/31/19 23:41 - Home Medications Home Medications: Ambulatory Orders Ca/D3/Mag Ox/Zinc/Clinical Radiologist/Ketan/Bor [Calcium 600-D3 Plus Caplet] 1 each PO HS Carbidopa/Levodopa [Carbidopa-Levo ER 50-200 Tab] 1 each PO TID 04/13/18 Aspirin 81 mg PO DAILY 06/01/19 Melatonin 5 mg PO HS 06/01/19 Olanzapine [Zyprexa -] 7.5 mg PO DAILY 06/01/19 Omeprazole 20 mg PO DAILY 06/01/19 Rivastigmine [Exelon Patch 4.6MG/24 Hours] 1 each TD DAILY 06/01/19 Rotigotine [Neupro] 1 each TD DAILY 06/01/19 Family Medical History Family History: Unable to Obtain Physical Exam-GI Vital Signs: Vital Signs Temperature 98 F 06/18/19 18:25 Pulse Rate 87 06/18/19 18:25 Respiratory Rate 20 06/18/19 18:25 Blood Pressure 105/71 06/18/19 18:25 O2 Sat by Pulse Oximetry (%) 96 06/18/19 10:00 Constitutional: Yes: Calm Eyes: No: Sclera Icterus Cardiovascular: Yes: Regular Rate and Rhythm. No: Murmur Respiratory: Yes: Diminished (at bases bilaterally with poor insp effort) Gastrointestinal Inspection: Yes: Scars (gastorstomy scar in upper abdomen). No : Distention ...Auscultate: Yes: Normoactive Bowel Sounds ...Palpate: Yes: Soft ...Percussion: No: Tympanitic Edema: No (No LE edema) Neurological: Yes: Other (Not opening eyes to verbal stimulus) Labs: CBC, BMP 06/18/19 07:50 06/18/19 07:50 INR, PTT INR 1.16 (0.83-1.09) H 06/01/19 09:40 Problem List - Problems (1) Failure to thrive Assessment/Plan: Asked to evaluate for feeding tube, however notes indicate that patient's daughter would like to give more time to assess for her mother's ability to take sustain herself through PO intake. I called Ms. Prescott's daughter to discuss today. She stated that she was busy at work and would discuss tomorrow. Will discuss options. In the interim, patient tube feeding. NG tube feeding can be maintained for up to 1 month if necessary Code(s): [id number] -
[2019-06-18] MEDS ORDERED: PT OWN MED DRAWER 7, Y5N ONE (22:17)
[2019-06-19] MEDS: CARBIDOPA/LEVODOPA 25/100 TABLET (FP) PO SCH ×3 (06:40→18:47)
[2019-06-19] MEDS: INSULIN SLIDING SCALE (NOVOLOG) 1 VIAL SQ SCH ×4 (06:40→22:29)
--- NOTE | 2019-06-19 08:32 | PN ---
Progress Note (short form) - Note Progress Note: Neurology CHIEF COMPLAINT: AMS PCP: None HISTORY OF PRESENT ILLNESS: Ms. Prescott is an 79 year old female with PMH of Parkinson Disease and dementia who was BIBEMS with AMS x4 days at time of admission. Daughter was at bedside and that time and provided history. 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 At baseline she is non-ambulatory and mental status changes from day to day (some days she is alert and oriented, can speak sentences, other days she does not speak at all). Pt has had a productive cough of yellow sputum for 4 days before day of admission and has become increasingly confused and somnolent. Decreased appetite, unable to eat or drink anything. On day of admission, she was not responding at all and had a low grade fever. Daughter stated that pt has not complained of any symptoms (chest pain, abd pain , SOB, urinary complaints). On arrival to ED, pt was hypoxic in the 80s. Patient consulted for altered mental status. Ct of head reviewed and showed no evidence of a focal intracranial lesion or hemorrhage completed on 06/01 at the time of admission. Patient downgraded from ICU and currently on telemetry floor. Still sluggish, not following all commands but able to open her eyes briefly. Mental status appears to remain stable without ssignificant improvement. Repeat CT head without acute changes. ID note reviewed, received ZOsyn, now being monitored off Abx. Remains on Sinemet as well as Exelon patch for Parkinson's which does not seem to be the etiology to her mental status. Extensive clinical course as noted without significant improvement. Does awaken to voice but without meaningful responsiveness. Reviewed notes from hospitalist , possible PEG tube feeding plan, currently NG tube. GI note reviewed, indicated previous tube taken out, GI discussing with daughter regarding reinsertion and indicated patient can remain with NG tube for up to 1 month. Active Medications Albuterol Sulfate (Ventolin 0.083% Nebulizer Soln -) 1 amp NEB Q6H PRN PRN Reason: SHORT OF BREATH/WHEEZING Bacitracin (Bacitracin -) 1 applic TP DAILY [facility] Last Admin: 06/18/19 14:20 Dose: 1 applic Carbidopa/Levodopa (Sinemet 25/100 -) 2 each PO TID@0700,1200,1900 [facility] Last Admin: 06/19/19 06:40 Dose: 2 each Collagenase (Santyl -) 1 applic TP DAILY [facility]; Protocol Last Admin: 06/18/19 17:06 Dose: Not Given Famotidine (Pepcid) 20 mg PO BID [facility] Last Admin: 06/18/19 23:22 Dose: 20 mg Heparin Sodium (Porcine) (Heparin -) 5,000 unit SQ TID VAS[facility] Last Admin: 06/18/19 23:19 Dose: 5,000 unit Insulin Aspart (Novolog Vial Sliding Scale -) 1 vial SQ ACHS [facility]; Protocol Last Admin: 06/19/19 06:40 Dose: Not Given Non-Formulary Medication (Rotigotine [Neupro]) 1 each TD DAILY [facility] Last Admin: 06/18/19 09:23 Dose: 1 each Rivastigmine (Exelon Patch 4.6mg/24 Hours -) 1 each TD DAILY [facility] Last Admin: 06/18/19 09:22 Dose: 1 each PHYSICAL EXAMINATION Vital Signs Period Temp Pulse Resp BP Sys/Campbell Pulse Ox Last 24 Hr 97.8 F-99.8 F 78-91 20-20 105-128/68-78 96-96 GENERAL: Somnolent, slightly responsive to sternal rub. HEAD: Normal with no signs of trauma. EYES: Pupils equal, round and reactive to light, extraocular movements intact, sclera anicteric, conjunctiva clear. No lid lag. EARS, NOSE, THROAT: Ears normal, nares patent, oropharynx clear without exudates. Dry mucous membranes. NECK: Normal range of motion, supple without lymphadenopathy, JVD, or masses. LUNGS: Inspiratory and expiratory wheezes throughout, accessory muscle use. HEART: Regular rate and rhythm, normal S1 and S2 without murmur, rub or gallop. ABDOMEN: Soft, nontender, not distended, normoactive bowel sounds, no guarding, no rebound, no masses. No hepatomegaly or splenomegaly. MUSCULOSKELETAL: Normal range of motion at all joints. No bony deformities or tenderness. No CVA tenderness. UPPER EXTREMITIES: 2+ pulses, warm, well-perfused. No cyanosis. No clubbing. No peripheral edema. LOWER EXTREMITIES: 2+ pulses, warm, well-perfused. No calf tenderness. No peripheral edema. NEUROLOGICAL: Unable to assess 2/2 mental status. PSYCHIATRIC: Cooperative. Good eye contact. Appropriate mood and affect. SKIN: Warm, dry, normal turgor, normal capillary refill. Sacral decubitus ulcer with sloughing skin and erythema. CBCD WBC 13.5 K/mm3 (4.0-10.0) H 06/18/19 07:50 RBC 4.54 M/mm3 (3.60-5.2) 06/18/19 07:50 Hgb 10.5 GM/dL (10.7-15.3) L 06/18/19 07:50 Hct 33.0 % (32.4-45.2) 06/18/19 07:50 MCV 72.7 fl (80-96) L 06/18/19 07:50 MCHC 31.9 g/dl (32.0-36.0) L 06/18/19 07:50 RDW 17.9 % (11.6-15.6) H 06/18/19 07:50 Plt Count 366 K/MM3 (134-434) 06/18/19 07:50 MPV 9.5 fl (7.5-11.1) 06/18/19 07:50 CMP Sodium 136 mmol/L (136-145) 06/18/19 07:50 Potassium 4.5 mmol/L (3.5-5.1) 06/18/19 07:50 Chloride 103 mmol/L (98-107) 06/18/19 07:50 Carbon Dioxide 27 mmol/L (21-32) 06/18/19 07:50 Anion Gap 7 MMOL/L (8-16) L 06/18/19 07:50 BUN 21.1 mg/dL (7-18) H 06/18/19 07:50 Creatinine 0.8 mg/dL (0.55-1.3) 06/18/19 07:50 Random Glucose 130 mg/dL (74-106) H 06/18/19 07:50 Calcium 8.7 mg/dL (8.5-10.1) 06/18/19 07:50 Total Bilirubin 0.3 mg/dL (0.2-1) 06/09/19 05:38 AST 21 U/L (15-37) 06/09/19 05:38 ALT 40 U/L (13-61) 06/09/19 05:38 Alkaline Phosphatase 74 U/L (45-117) 06/09/19 05:38 Total Protein 6.2 g/dl (6.4-8.2) L 06/09/19 05:38 Albumin 2.3 g/dl (3.4-5.0) L 06/09/19 05:38 CARDIAC ENZYMES Creatine Kinase 281 U/L (26-192) H 06/04/19 06:30 Troponin I < 0.02 ng/ml (0.00-0.05) 06/01/19 04:07 ASSESSMENT/PLAN: Ms. Prescott is an 79 year old female with PMH of Parkinson Disease and dementia who was BIBEMS with AMS x4 days at time of admission. Daughter was at bedside and that time and provided history. 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 At baseline she is non-ambulatory and mental status changes from day to day (some days she is alert and oriented, can speak sentences, other days she does not speak at all). Pt has had a productive cough of yellow sputum for 4 days before day of admission and has become increasingly confused and somnolent. Decreased appetite, unable to eat or drink anything. On day of admission, she was not responding at all and had a low grade fever. Daughter stated that pt has not complained of any symptoms (chest pain, abd pain , SOB, urinary complaints). On arrival to ED, pt was hypoxic in the 80s. Patient consulted for altered mental status. Ct of head reviewed and showed no evidence of a focal intracranial lesion or hemorrhage completed on 06/01 at the time of admission. Patient downgraded from ICU and currently on telemetry floor. Slightly more awake this morning, not following all commands but able to open her eyes briefly. Patient downgraded from ICU and currently on telemetry floor. Still sluggish, not following all commands but able to open her eyes briefly. Mental status appears to remain stable without ssignificant improvement. Repeat CT head without acute changes. ID note reviewed, received ZOsyn, now being monitored off Abx. Remains on Sinemet as well as Exelon patch for Parkinson's. Parkinson's does not seem to be the etiology to her mental status. Extensive clinical course as noted without significant improvement. ID note reviewed, received ZOsyn, now being monitored off Abx, followed by the recommendations. Maintain adequate hydration, frequent orientation whenever able. Consider SNF placement if able. Does awaken to voice but without meaningful responsiveness. Reviewed notes from hospitalist, possible PEG tube feeding plan, currently NG tube. GI note reviewed, indicated previous tube taken out, GI discussing with daughter regarding reinsertion and indicated patient can remain with NG tube for up to 1 month. Defer to GI regarding this. Lack of nutrition can certainly precipitate continued cognitive decline, long- term plan will be needed.
[2019-06-19 08:46] LABS: HEMATOCRIT 33.4 % (32.4-45.2); HEMOGLOBIN 10.7 GM/dL (10.7-15.3); MCH 23.2 pg (25.7-33.7); MCHC 32.2 g/dl (32.0-36.0); MEAN CELL VOLUME 72.2 fl (80-96); MEAN PLT VOLUME 9.2 fl (7.5-11.1); PLATELET COUNT 335 K/MM3 (134-434); RBC 4.62 M/mm3 (3.60-5.2); RDW 17.8 % (11.6-15.6); WHITE BLOOD COUNT 11.2 K/mm3 (4.0-10.0)
[2019-06-19 08:54] LABS: INR 1.15 (0.83-1.09); PROTHROMBIN TIME (PATIENT) 13.6 SEC (9.7-13.0)
[2019-06-19 09:18] LABS: ALBUMIN 2.8 g/dl (3.4-5.0); BILIRUBIN,TOTAL 0.8 mg/dL (0.2-1); BLOOD UREA NITROGEN 21.3 mg/dL (7-18); CALCIUM 9.1 mg/dL (8.5-10.1); CREATININE 0.8 mg/dL (0.55-1.3); POTASSIUM 4.4 mmol/L (3.5-5.1); TOT PROT 6.7 g/dl (6.4-8.2)
[2019-06-19] MEDS ORDERED: ONDANSETRON 4 MG/2 ML VIAL IVPUSH PRN ×2 (10:35→12:42)
[2019-06-19] MEDS ORDERED: ETOMIDATE 20 MG/10 ML AMPUL IVPUSH ONE (10:38)
[2019-06-19] MEDS ORDERED: SUCCINYLCHOLINE CHLORIDE 200 MG/10 ML SYRINGE ONE (10:38)
[2019-06-19] MEDS ORDERED: PROPOFOL 20 ML ONE (10:38)
[2019-06-19] MEDS ORDERED: ROCURONIUM BROMIDE 50 MG/5 ML SYRINGE ONE (10:38)
[2019-06-19] MEDS ORDERED: LIDOCAINE HCL/PF 2% SDV 5ML VIAL ONE (10:39)
[2019-06-19] MEDS ORDERED: PHENYLEPHRINE HCL 10 MG/1 ML SINGLE DOSE VIAL ONE (10:39)
--- NOTE | 2019-06-19 10:44 | PN ---
Progress Note (short form) - Note Progress Note: Attending Surgeon Patient sseen and evaluated; chart reviewed; full note to follow; for excisional debridement of unstaegable sacral ulcer/wound; r/b/t/a's d/w the patients daughter Angela and informed consent obtained via telephone conversation. Edu Hansen MD FACS
[2019-06-19] MEDS ORDERED: LACTATED RINGERS SOLUTION 1,000 ML IV SCH ×2 (10:45→12:42)
--- NOTE | 2019-06-19 10:52 | PN ---
Progress Note (short form) - Note Progress Note: Had long discussion with Ms. Prescott's Daughter. Discussed need for optimizing nutrition in aid of wound healing of decubitus. She is amenable to G-Tube placement. Discussed options. Discussed repeat PEG. Discussed potential risks of the procedure like but not limited to bleeding, perforation requiring surgery to repair, infection, sedation medication effects, perotinitis if the tube is prematurely dislodged, all of which could be potentially life threatening. Discussed alternative if IR placed G Tube. Explained that less sedation is used for placement. I advised that if she wanted, prior to the procedure, that she speak to the radiologist performing the procedure for further details. She is opting for radiographic placement of the G-Tube. She was concerned regarding tube dislodgement. I did explain that to prevent tube dislodgement, regardless of how the feeding tube is placed, abdominal binder should remain in place. She was interested in a low profile G-Tube. I explained that once the trace is mature, the existing G-Tube can be converted to a low profile model. I communicated the plan to her medical team Problem List - Problems (1) Failure to thrive Code(s): ITO3863 -
[2019-06-19] MEDS ORDERED: DEXAMETHASONE SOD PHOSPHATE 4 MG/1 ML VIAL ONE (11:44)
--- NOTE | 2019-06-19 12:07 | OP ---
Operative Note - Note: Operative Date: 06/19/19 Pre-Operative Diagnosis: sacral decubitus; unstageable Operation: excisional debridement sacral decubitus Findings: nonviable skin/subcutaneous fat/muscle and fascia Surgeon: Edu Hansen Anesthesiologist/PRINTING MECHANIST: Mally Gomez Anesthesia: General Specimens Removed: non viable soft tissue Estimated Blood Loss (mls): 25 Drains & Tubes with Location: kerlix packing
[2019-06-19] MEDS ORDERED: ACETAMINOPHEN 1000 MG/100 ML VIAL (NON FORMULARY) IVPB PRN (12:10)
[2019-06-19] MEDS ORDERED: ALBUTEROL SO4 0.083% IH SOL 2.5 MG/3 ML VIAL.NEB. NEB PRN (12:42)
[2019-06-19] MEDS ORDERED: ACETAMINOPHEN INJECTION 100 ML IVPB ONE (12:45)
[2019-06-19] MEDS: FAMOTIDINE 40 MG/5 ML ORAL SUSPENSION PO SCH ×2 (14:09→22:30)
[2019-06-19] MEDS: RIVASTIGMINE 4.6 MG/24 HOURS TRANSDERMAL PATCH TD SCH (14:09)
[2019-06-19] MEDS: BACITRACIN 15 GM TUBE TOPICAL OINTMENT TP SCH (14:09)
[2019-06-19] MEDS: COLLAGENASE CLOSTRIDIUM HIST. 30 GRAMS TUBE TP SCH (14:09)
[2019-06-19] MEDS: PATIENT'S OWN MEDICATION (NON-FORMULARY) (Rotigotine [Neupro] 1 EACH) TD SCH (14:09)
--- NOTE | 2019-06-19 14:51 | SPA.PREOP ---
- PRE-OP NOTE Dx: sacral decubitus Planned Procedure: debridement of sacral decubitus Surgeon: Jade Last Vital Signs Temp Pulse Resp BP Pulse Ox 97 F L 96 H 20 126/76 95 06/19/19 13:59 06/19/19 13:59 06/19/19 13:59 06/19/19 13:59 06/19/19 13:30 Lab Results WBC 11.2 K/mm3 (4.0-10.0) H 06/19/19 07:57 RBC 4.62 M/mm3 (3.60-5.2) 06/19/19 07:57 Hgb 10.7 GM/dL (10.7-15.3) 06/19/19 07:57 Hct 33.4 % (32.4-45.2) 06/19/19 07:57 MCV 72.2 fl (80-96) L 06/19/19 07:57 MCHC 32.2 g/dl (32.0-36.0) 06/19/19 07:57 RDW 17.8 % (11.6-15.6) H 06/19/19 07:57 Plt Count 335 K/MM3 (134-434) 06/19/19 07:57 Sodium 136 mmol/L (136-145) 06/19/19 07:57 Potassium 4.4 mmol/L (3.5-5.1) 06/19/19 07:57 Chloride 102 mmol/L (98-107) 06/19/19 07:57 Carbon Dioxide 27 mmol/L (21-32) 06/19/19 07:57 Anion Gap 7 MMOL/L (8-16) L 06/19/19 07:57 BUN 21.3 mg/dL (7-18) H 06/19/19 07:57 Creatinine 0.8 mg/dL (0.55-1.3) 06/19/19 07:57 Random Glucose 146 mg/dL (74-106) H 06/19/19 07:57 Calcium 9.1 mg/dL (8.5-10.1) 06/19/19 07:57 Blood Type O POSITIVE 06/19/19 07:57 Antibody Screen Negative 06/19/19 07:57 INR 1.15 (0.83-1.09) H 06/19/19 07:57 PE: Non-verbal, NAD unlabored resp on RA Sacrum: large eschar @ 10x9cm, non boggy, no undermining and well defined boarders, minimal drainage, surrounding tissue grossly intact. Problem List - Problems (1) Decubitus ulcer Assessment/Plan: 1. Continue NPO for debridement in OR today with Dr Hansen 2. GI/DVT PPX 3. Medical optimization / clearance 4. Consent to be obtained by surgeon after risks, benefits and alternatives discussed with patient and or Health Care Proxy. Evaluation and plan discussed with Dr Hansen Code(s): L89.90 - PRESSURE ULCER OF UNSPECIFIED SITE, UNSPECIFIED STAGE Qualifiers: Pressure injury stage: stage 1
--- NOTE | 2019-06-19 15:07 | PN ---
Progress Note (short form) - Note Progress Note: s: sleeping, not rousable Current Medications Generic Name Dose Route Start Last Admin Trade Name Freq PRN Reason Stop Dose Admin Acetaminophen 1,000 mg 06/19/19 12:10 06/19/19 12:55 Ofirmev Injection - IVPB 06/20/19 12:11 1,000 mg Q6H PRN Administration PAIN LEVEL 1-5 Albuterol Sulfate 1 amp 06/19/19 12:42 Ventolin 0.083% Nebulizer Soln - NEB Q6H PRN SHORT OF BREATH/WHEEZING Carbidopa/Levodopa 2 each 06/19/19 19:00 Sinemet 25/100 - PO TID@0700,1200,1900 [facility] Famotidine 20 mg 06/19/19 22:00 Pepcid PO BID [facility] Fentanyl 25 mcg 06/19/19 12:42 06/19/19 12:49 Sublimaze Injection - IVPUSH 06/20/19 10:34 25 mcg [id number] PRN Administration PAIN-PACU ORDER X 4 DOSES ONLY Heparin Sodium (Porcine) 5,000 unit 06/19/19 14:00 Heparin - SQ TID V[facility]YL Lactated Ringer's 1,000 mls @ 125 mls/hr 06/19/19 12:42 06/19/19 13:59 Lactated Ringers Solution IV 0 mls ASDIR VASYL Administration Insulin Aspart 1 vial 06/19/19 16:30 Novolog Vial Sliding Scale - SQ ACHS [facility] Protocol Morphine Sulfate 2 mg 06/19/19 12:09 Morphine Sulfate IVPUSH Q4H PRN PAIN LEVEL 6-10 Non-Formulary Medication 1 each 06/20/19 10:00 Rotigotine [Neupro] TD DAILY [facility] Ondansetron HCl 4 mg 06/19/19 12:42 Zofran Injection IVPUSH 06/20/19 10:34 Q6H PRN NAUSEA AND/OR VOMITING Rivastigmine 1 each 06/20/19 10:00 Exelon Patch 4.6mg/24 Hours - TD DAILY [facility] Vital Signs Period Temp Pulse Resp BP Sys/Campbell Pulse Ox Last 24 Hr 97 F-98.6 F 77-104 14-20 102-128/60-76 95-99 Constitutional: Yes: No Distress, Calm Neck: Yes: Supple, Trachea Midline Respiratory: Yes: Regular, Diminished Gastrointestinal: Yes: Normal Bowel Sounds, Soft Cardiovascular: Yes: Regular Rate and Rhythm JVD: No Extremities: No: Cold Edema: No Integumentary: No: Jaundice Neurological: Yes: Lethargy Psychiatric: No: Agitated CBC, BMP 06/19/19 07:57 06/19/19 07:57 echo 05/2019 nl LV/RV function, impaired relaxation, elevated filling pressures, RV not well visualized, mild to mod MR, mild mod TR CXR: no congestion/effusions (+ atx) PNA, sepsis, acute respiratory failure 2/2 suspected aspiration: - manage per critical care, ID; - intubated after suspected aspiration event, now extubated - nl LV function on echo HTN: - stable off meds DM: - manage per primary dementia, parkinson's: - manage per primary - family considering peg JOS, rhabdo: - renal fxn improved
--- NOTE | 2019-06-19 17:25 | PN ---
Teaching Attending Note Name of Resident: Miguel A Stovall ATTENDING PHYSICIAN STATEMENT I saw and evaluated the patient. I reviewed the resident's note and discussed the case with the resident. I agree with the resident's findings and plan as documented. SUBJECTIVE: No events over night. OBJECTIVE: seen at 9 am MMM. opened her eyes today and said a couple of words. CV: RRR. Lungs: clear posteriorly Abd: soft, NT, Nd , NL BS. Ext: trace edema on feet. Skin: sacral decub ulcer was not examined today ASSESSMENT AND PLAN: 79 y/o lady with h/o Parkinson Disease and dementia who presented with AMS. 1- Acute hypercapnic resp failure. Resolved 2- PNA, likely aspiration PNA . finsiehd ABx 3- JOS: improved. 4- Rhabdo : resolved 5- Thrombocytopenia: resolved 6- h/o HTN 7- h/o DM 8- AMS: acute metabolic encephalopathy 9- h/o dementia 10- Microcytic anemia 11- contaminant blood cx 12- Unstageable sacral decub ulcer Plan: - s/p debridement of the ulcer today - resume TF - dc IVF - for IR placement of PEg. hopefully Saturday - wound care per sx - cont Sinemet - heparin SQ. - cont SSI
--- NOTE | 2019-06-19 17:55 | PN ---
Physical Exam: SUBJECTIVE: Patient seen and examined NAEON Going for sacral decubitus ulcer debridement OBJECTIVE: Vital Signs Period Temp Pulse Resp BP Sys/Campbell Pulse Ox Last 24 Hr 97 F-98.6 F 77-104 14-20 102-128/60-76 95-99 GENERAL: Lethargic. Mildly response to painful stimuli HEAD: NC/AT EYES: extraocular movements tracking movement briefly, sclera anicteric, conjunctiva clear. No ptosis. ENT: Ears normal, nares patent, NGT feed NECK: Trachea midline, full range of motion, supple. LUNGS: Breath sounds equal, mildly coarse BS w/ wheezes bilaterally. Breathing on RA HEART: Regular rate and rhythm, S1, S2 without murmur, rub or gallop. ABDOMEN: Soft, nontender, nondistended, normoactive bowel sounds, no guarding, no rebound. SACRUM: Right lower sacrum/buttock >8cm area of darkened and indurated nonblanchable skin. Medial edge with partial thickness wound, w/ fibrinous exudate, no notable flocculence EXTREMITIES: 2+ pulses, warm, well-perfused, no edema. BLE with nonpitting edema. DP2+ b/l NEUROLOGICAL: slightly opening eyes to loud questioning/pain, withdrawing BUE and BLE to painful stimuli. Lifting arms intermittently. Not responding to questioning SKIN: Warm, dry, normal turgor, no rashes or lesions noted Laboratory Results - last 24 hr 06/18/19 06/19/19 06/19/19 22:28 06:23 07:57 WBC 11.2 H RBC 4.62 Hgb 10.7 Hct 33.4 MCV 72.2 L MCH 23.2 L MCHC 32.2 RDW 17.8 H Plt Count 335 MPV 9.2 PT with INR INR Sodium Potassium Chloride Carbon Dioxide Anion Gap BUN Creatinine Est GFR (CKD-EPI)AfAm Est GFR (CKD-EPI)NonAf POC Glucometer 149 148 Random Glucose Calcium Total Bilirubin AST ALT Alkaline Phosphatase Total Protein Albumin Blood Type Antibody Screen 06/19/19 06/19/19 06/19/19 07:57 07:57 07:57 WBC RBC Hgb Hct MCV MCH MCHC RDW Plt Count MPV PT with INR 13.60 H INR 1.15 H Sodium 136 Potassium 4.4 Chloride 102 Carbon Dioxide 27 Anion Gap 7 L BUN 21.3 H Creatinine 0.8 Est GFR (CKD-EPI)AfAm 80.14 Est GFR (CKD-EPI)NonAf 69.14 POC Glucometer Random Glucose 146 H Calcium 9.1 Total Bilirubin 0.8 AST 11 L ALT 7 L Alkaline Phosphatase 75 Total Protein 6.7 Albumin 2.8 L Blood Type O POSITIVE Antibody Screen Negative 06/19/19 17:09 WBC RBC Hgb Hct MCV MCH MCHC RDW Plt Count MPV PT with INR INR Sodium Potassium Chloride Carbon Dioxide Anion Gap BUN Creatinine Est GFR (CKD-EPI)AfAm Est GFR (CKD-EPI)NonAf POC Glucometer 200 Random Glucose Calcium Total Bilirubin AST ALT Alkaline Phosphatase Total Protein Albumin Blood Type Antibody Screen Active Medications Generic Name Dose Route Start Last Admin Trade Name Freq PRN Reason Stop Dose Admin Acetaminophen 1,000 mg 06/19/19 12:10 06/19/19 12:55 Ofirmev Injection - IVPB 06/20/19 12:11 1,000 mg Q6H PRN Administration PAIN LEVEL 1-5 Albuterol Sulfate 1 amp 06/19/19 12:42 Ventolin 0.083% Nebulizer Soln - NEB Q6H PRN SHORT OF BREATH/WHEEZING Carbidopa/Levodopa 2 each 06/19/19 19:00 Sinemet 25/100 - PO TID@0700,1200,1900 [facility] Famotidine 20 mg 06/19/19 22:00 Pepcid PO BID [facility] Fentanyl 25 mcg 06/19/19 12:42 06/19/19 12:49 Sublimaze Injection - IVPUSH 06/20/19 10:34 25 mcg [id number] PRN Administration PAIN-PACU ORDER X 4 DOSES ONLY Heparin Sodium (Porcine) 5,000 unit 06/19/19 14:00 Heparin - SQ TID [facility] Insulin Aspart 1 vial 06/19/19 16:30 06/19/19 17:12 Novolog Vial Sliding Scale - SQ 2 units ACHS [facility] Administration Protocol Morphine Sulfate 2 mg 06/19/19 12:09 Morphine Sulfate IVPUSH Q4H PRN PAIN LEVEL 6-10 Non-Formulary Medication 1 each 06/20/19 10:00 Rotigotine [Neupro] TD DAILY [facility] Ondansetron HCl 4 mg 06/19/19 12:42 Zofran Injection IVPUSH 06/20/19 10:34 Q6H PRN NAUSEA AND/OR VOMITING Rivastigmine 1 each 06/20/19 10:00 Exelon Patch 4.6mg/24 Hours - TD DAILY [facility] ASSESSMENT/PLAN: 79y/o female with Parkinson's and dementia who presents with AMS and cough x 4 days. At baseline she is non-ambulatory and mental status changes from day to day (some days she is alert and oriented, can speak sentences, other days she does not speak at all). Admitted for AMS. Likely aspiration PNA. Pt was hypoxic to the 80s at ED presentation. Intubated for increased work of breathing. Flu negative. Atelectasis vs infiltrate at Left base. Extubated on 06/09. Repeat CTH on 06/11/19 by Neuro, w/o significant interval change; possibly chronic and superimposed sinusitis of Left maxillary antrum and sphenoid sinus. Daughter expresses desire to avoid PEG, has strong belief that optimization of Parkinson' s and Dementia drugs will help pt resolve AMS. Received zosyn x8d(06/01 -06/13) for possible aspiration PNA. Failing bedside S&S evaluation. TF via NGT. Solumedrol stopped on 06/15/19. IR(Carmencita) consult for possible PEG. Sacral wound worsening which prompted Sacral Decubitus Wound Debridement(Jade, ). #acute hypoxic respiratory failure 2/2 multilobar PNA and sepsis -CXR improved post-intubation > CXR(06/08/19): Left base w/ minimal atelectasis, sharp rib angles > flu: negative > Echo: normal EF, impaired relaxation, elevated filling pressures, TR, MR -duonebs TID -solumedrol 20mg IVP BID --> 20mg IVP QD -zosyn 3.375g Q8H --stopped -ID(Valentino) consult: --dc abx, and observe off -Pulm(Jourdan) consult: --taper medrol --stopped on 06/15/19 #AMS: toxic metabolic encephalopathy vs less likely CVA -CT head negative for acute processes -CT H(06/11/19): no significant change, possible chronic/superimposed Left maxillary sinusitis -urine cx negative -blood cx(06/01/19): Staph coag negative in 1 bottle --likely contaminant -blood cx(06/03/19): NGTD -dietary following -speech following #inability to tolerate PO --2/2 AMS -NGT feeds(Glucerna) -PEG(Aaron-DiGiorno) evaluation --will defer to IR -IR(Gabrael) evaluation --pending #sacral decubitus ulcer -surgery(Jacob Estrada) consulted --Reposition every two hours while in bed --Air mattress recommended --Use drawsheets and Trendelenburg when repositioning to reduce friction and shear --Manageincontinence via timely cleansing, use of appropriate incontinence disposables and use of barrier ointment to intact skin --Ensure adequate hydration/nutrition, supplementation per primary team --Ensure off-loading to all bony areas (heels, ankles, hips and tailbone) with Allevyn/Optifoam --Clean open wounds with normal saline and apply bacitracin -Surgery(Jade): --debridement 06/19/19 #leukocytosis -from infection vs steroid use -mild improvement continues -continue monitor #JOS, resolved -nephro following -Cardio following --diovan held --BP stable #anemia of chronic disease -microcytosis but low TIBC, unsaturated IBC, and high ferritin #Parkinson's and dementia -continue Sinimet, modified dose for NG tube, @0700, 1200, 1900 -rivostigmine patch -rotigotine patch #mild hypophosphatemia, resolved #lactic acidosis, resolved #transaminitis, improved DVT ppx SQH GI ppx protonix FEN monitor labs NG feeds: Glucerna Visit type - Emergency Visit Emergency Visit: No - New Patient This patient is new to me today: No - Critical Care Critical Care patient: No ATTENDING PHYSICIAN STATEMENT I saw and evaluated the patient. I reviewed the resident's note and discussed the case with the resident. I agree with the resident's findings and plan as documented. SUBJECTIVE: OBJECTIVE: ASSESSMENT AND PLAN:
[2019-06-19] MEDS: HEPARIN NA (PORCINE) 5,000 UNITS/ML 1ML VIAL SQ SCH (22:31)
[2019-06-20] MEDS: CARBIDOPA/LEVODOPA 25/100 TABLET (FP) PO SCH ×3 (06:58→18:18)
[2019-06-20] MEDS: HEPARIN NA (PORCINE) 5,000 UNITS/ML 1ML VIAL SQ SCH ×3 (06:59→21:21)
[2019-06-20] MEDS: INSULIN SLIDING SCALE (NOVOLOG) 1 VIAL SQ SCH ×4 (07:01→21:32)
--- NOTE | 2019-06-20 08:07 | PN ---
Physical Exam: SUBJECTIVE: Patient seen and examined at bedside, comfortable. POD #1 s/p sacral decubitus ulcer debridement. Minimally responsive, tracking movement across room. OBJECTIVE: Vital Signs Period Temp Pulse Resp BP Sys/Campbell Pulse Ox Last 24 Hr 97 F-99.5 F 77-104 14-20 102-126/60-76 95-99 GENERAL: Minimally responsive to tactile stimuli HEAD: Normal with no signs of trauma. EYES: PERRL, sclera anicteric, conjunctiva clear. ENT: NG tube in situ. Moist mucous membranes. LUNGS: Breath sounds equal, clear to auscultation bilaterally, no wheezes, no crackles. HEART: Regular rate and rhythm, S1, S2 without murmur, rub or gallop. ABDOMEN: Soft, nontender, nondistended, normoactive bowel sounds. EXTREMITIES: 2+ radial, dorsalis pedis pulses, warm, well-perfused. No edema. NEUROLOGICAL: Minimal tracking of motion. Withdraws bilateral upper, lower extremities to tactile stimuli. SKIN: Sacral decubitus ulcer; wound packed, bandaged clean. Minimal serosanguinous drainage. Laboratory Results - last 24 hr 06/19/19 06/19/19 06/19/19 07:57 07:57 07:57 WBC 11.2 H RBC 4.62 Hgb 10.7 Hct 33.4 MCV 72.2 L MCH 23.2 L MCHC 32.2 RDW 17.8 H Plt Count 335 MPV 9.2 PT with INR 13.60 H INR 1.15 H Sodium 136 Potassium 4.4 Chloride 102 Carbon Dioxide 27 Anion Gap 7 L BUN 21.3 H Creatinine 0.8 Est GFR (CKD-EPI)AfAm 80.14 Est GFR (CKD-EPI)NonAf 69.14 POC Glucometer Random Glucose 146 H Calcium 9.1 Total Bilirubin 0.8 AST 11 L ALT 7 L Alkaline Phosphatase 75 Total Protein 6.7 Albumin 2.8 L Blood Type Antibody Screen 06/19/19 06/19/19 06/19/19 07:57 17:09 22:23 WBC RBC Hgb Hct MCV MCH MCHC RDW Plt Count MPV PT with INR INR Sodium Potassium Chloride Carbon Dioxide Anion Gap BUN Creatinine Est GFR (CKD-EPI)AfAm Est GFR (CKD-EPI)NonAf POC Glucometer 200 148 Random Glucose Calcium Total Bilirubin AST ALT Alkaline Phosphatase Total Protein Albumin Blood Type O POSITIVE Antibody Screen Negative 06/20/19 06:45 WBC RBC Hgb Hct MCV MCH MCHC RDW Plt Count MPV PT with INR INR Sodium Potassium Chloride Carbon Dioxide Anion Gap BUN Creatinine Est GFR (CKD-EPI)AfAm Est GFR (CKD-EPI)NonAf POC Glucometer 117 Random Glucose Calcium Total Bilirubin AST ALT Alkaline Phosphatase Total Protein Albumin Blood Type Antibody Screen Active Medications Generic Name Dose Route Start Last Admin Trade Name Freq PRN Reason Stop Dose Admin Acetaminophen 1,000 mg 06/19/19 12:10 06/19/19 12:55 Ofirmev Injection - IVPB 06/20/19 12:11 1,000 mg Q6H PRN Administration PAIN LEVEL 1-5 Albuterol Sulfate 1 amp 06/19/19 12:42 Ventolin 0.083% Nebulizer Soln - NEB Q6H PRN SHORT OF BREATH/WHEEZING Carbidopa/Levodopa 2 each 06/19/19 19:00 06/20/19 06:58 Sinemet 25/100 - PO 2 each TID@0700,1200,1900 V[facility] Administration Famotidine 20 mg 06/19/19 22:00 06/19/19 22:30 Pepcid PO 20 mg BID VASYL Administration Fentanyl 25 mcg 06/19/19 12:42 06/19/19 12:49 Sublimaze Injection - IVPUSH 06/20/19 10:34 25 mcg [id number] PRN Administration PAIN-PACU ORDER X 4 DOSES ONLY Heparin Sodium (Porcine) 5,000 unit 06/19/19 14:00 06/20/19 06:59 Heparin - SQ 5,000 unit TID V[facility] Administration Insulin Aspart 1 vial 06/19/19 16:30 06/20/19 07:01 Novolog Vial Sliding Scale - SQ Not Given ACHS VASYL Protocol Morphine Sulfate 2 mg 06/19/19 12:09 Morphine Sulfate IVPUSH Q4H PRN PAIN LEVEL 6-10 Non-Formulary Medication 1 each 06/20/19 10:00 Rotigotine [Neupro] TD DAILY [facility] Ondansetron HCl 4 mg 06/19/19 12:42 Zofran Injection IVPUSH 06/20/19 10:34 Q6H PRN NAUSEA AND/OR VOMITING Rivastigmine 1 each 06/20/19 10:00 Exelon Patch 4.6mg/24 Hours - TD DAILY [facility] ASSESSMENT/PLAN: Patient is an 79 year old female with history of Parkinson's, dementia presents with altered mental status, and cough. Acute hypoxic respiratory failure, sepsis secondary to community acquired pnuemonia -Completed antibiotic regimen with Zosyn; observing off antibiotics. -Completed Medrol taper -DuoNebs [id number] PRN for shortness of breath -Saturating well on room air. Monitor vital signs closely. Parkinsons -Continue Sinimet (dose modified for NG tube) -Rivostigmine patch, Rotigotine patch -Neurology recommendations appreciated. Sacral decubitus ulcer -POD#1 s/p debridment -Surgery recommendations (Dr. Hansen) appreciated. Dysphagia -Speech pathology evaluation appreciated; high risk of aspiration with oral feeding at this time -Evaluation for PEG tube placement. -Gastroenterology, IR recommendations appreciated. Patient is scheduled for Saturday. Leukocytosis -Likely secondary to recent steroid taper. Follow CBC. Monitoring off antibiotics Diabetes Mellitus -ISS ACHS -Fingerstick BGM ACHS FEN -No IV fluids indicated -Follow BMp -Glucerna tube feeds Prophylaxis -Heparin 5000units subq TID -Pepcid 20mg NGT BID Disposition -Continue care in medical- surgical floor. Visit type - Emergency Visit Emergency Visit: Yes ED Registration Date: 06/01/19 Care time: The patient presented to the Emergency Department on the above date and was hospitalized for further evaluation of their emergent condition. - New Patient This patient is new to me today: No - Critical Care Critical Care patient: No - Discharge Referral Referred to [facility] Med P.C.: No ATTENDING PHYSICIAN STATEMENT I saw and evaluated the patient. I reviewed the resident's note and discussed the case with the resident. I agree with the resident's findings and plan as documented. SUBJECTIVE: OBJECTIVE: ASSESSMENT AND PLAN:
--- NOTE | 2019-06-20 09:35 | PN ---
Progress Note, Physician Chief Complaint: no acute distress noted Largely nonverbal History of Present Illness: 99% Room Air BP stable. - Current Medication List Current Medications: Active Medications Acetaminophen (Ofirmev Injection -) 1,000 mg IVPB Q6H PRN PRN Reason: PAIN LEVEL 1-5 Stop: 06/20/19 12:11 Last Admin: 06/19/19 12:55 Dose: 1,000 mg Albuterol Sulfate (Ventolin 0.083% Nebulizer Soln -) 1 amp NEB Q6H PRN PRN Reason: SHORT OF BREATH/WHEEZING Carbidopa/Levodopa (Sinemet 25/100 -) 2 each PO TID@0700,1200,1900 [facility] Last Admin: 06/20/19 06:58 Dose: 2 each Famotidine (Pepcid) 20 mg PO BID [facility] Last Admin: 06/19/19 22:30 Dose: 20 mg Fentanyl (Sublimaze Injection -) 25 mcg IVPUSH [id number] PRN PRN Reason: PAIN-PACU ORDER X 4 DOSES ONLY Stop: 06/20/19 10:34 Last Admin: 06/19/19 12:49 Dose: 25 mcg Heparin Sodium (Porcine) (Heparin -) 5,000 unit SQ TID [facility] Last Admin: 06/20/19 06:59 Dose: 5,000 unit Insulin Aspart (Novolog Vial Sliding Scale -) 1 vial SQ ACHS [facility]; Protocol Last Admin: 06/20/19 07:01 Dose: Not Given Morphine Sulfate (Morphine Sulfate) 2 mg IVPUSH Q4H PRN PRN Reason: PAIN LEVEL 6-10 Non-Formulary Medication (Rotigotine [Neupro]) 1 each TD DAILY [facility] Ondansetron HCl (Zofran Injection) 4 mg IVPUSH Q6H PRN PRN Reason: NAUSEA AND/OR VOMITING Stop: 06/20/19 10:34 Rivastigmine (Exelon Patch 4.6mg/24 Hours -) 1 each TD DAILY [facility] - Objective Vital Signs: Vital Signs Temperature 99.5 F 06/20/19 06:00 Pulse Rate 104 H 06/20/19 06:00 Respiratory Rate 18 06/20/19 06:00 Blood Pressure 116/71 06/20/19 06:00 O2 Sat by Pulse Oximetry (%) 99 06/19/19 22:00 Constitutional: Yes: No Distress Cardiovascular: Yes: Regular Rate and Rhythm Respiratory: Yes: Other (clear anteriorly, laterally. No wheezing) Gastrointestinal: Yes: Soft Edema: No Labs: CBC, BMP 06/19/19 07:57 06/19/19 07:57 INR, PTT INR 1.15 (0.83-1.09) H 06/19/19 07:57 Assessment/Plan echo 05/2019 nl LV/RV function, impaired relaxation, elevated filling pressures, RV not well visualized, mild to mod MR, mild mod TR CXR: no congestion/effusions (+ atx) PNA, sepsis, acute respiratory failure 2/2 suspected aspiration: - manage per critical care, ID; - intubated after suspected aspiration event, now extubated - nl LV function on echo HTN: - stable off meds DM: - manage per primary dementia, parkinson's: - manage per primary - family considering peg JOS, rhabdo: - renal fxn improved
[2019-06-20 09:48] LABS: HEMOGLOBIN 9.7 GM/dL (10.7-15.3); MCHC 31.3 g/dl (32.0-36.0); MEAN CELL VOLUME 73.4 fl (80-96); MEAN PLT VOLUME 9.7 fl (7.5-11.1); PLATELET COUNT 295 K/MM3 (134-434); RBC 4.23 M/mm3 (3.60-5.2); RDW 18.2 % (11.6-15.6); WHITE BLOOD COUNT 16.4 K/mm3 (4.0-10.0)
[2019-06-20] MEDS ORDERED: PT OWN MED DRAWER 7, Y5N ONE ×2 (10:05→20:53)
[2019-06-20 10:10] LABS: BLOOD UREA NITROGEN 18.3 mg/dL (7-18); CREATININE 0.8 mg/dL (0.55-1.3); MAGNESIUM 2.1 mg/dL (1.8-2.4); PHOSPHOROUS 4.6 mg/dL (2.5-4.9); POTASSIUM 4.6 mmol/L (3.5-5.1)
[2019-06-20] MEDS: RIVASTIGMINE 4.6 MG/24 HOURS TRANSDERMAL PATCH TD SCH (10:30)
[2019-06-20] MEDS: PATIENT'S OWN MEDICATION (NON-FORMULARY) (Rotigotine [Neupro] 1 EACH) TD SCH (10:31)
[2019-06-20] MEDS: FAMOTIDINE 40 MG/5 ML ORAL SUSPENSION PO SCH ×2 (10:31→21:51)
--- NOTE | 2019-06-20 12:20 | PN ---
Progress Note (short form) - Note Progress Note: Anesthesiologist post op note, POD#1. S/P Sacral ulcer I&D under GA. VSS. No apparent post anesthesia complications.
--- NOTE | 2019-06-20 12:29 | PN ---
Progress Note (short form) - Note Progress Note: Attending Surgeon POD#1 At baseline in bed VSS AF wound-dressing was changed arlier by RN; dressing taken down and clean; minimal bleeding IMP;stable post op PLAN: LW care; orders were placed; willVAC on 06/22/2019; plan d/w her daughter yesterday. Edu Hansen MD FACS
--- NOTE | 2019-06-20 12:56 | OP ---
DATE OF OPERATION: 06/19/2019 PREOPERATIVE DIAGNOSIS: Sacral decubitus ulcer, unstageable. POSTOPERATIVE DIAGNOSIS: Sacral decubitus ulcer, unstageable. PROCEDURE: Excisional debridement of unstageable sacral decubitus ulcer. SURGEON: Edu Hansen MD ANESTHESIA: General. OPERATIVE FINDINGS: There was nonviable skin, subcutaneous tissue, fat, muscle , and fascia that were sharply excised. The rest of the findings were unremarkable. DESCRIPTION OF PROCEDURE: The patient was placed on the operating room table in supine position. After the induction of general anesthesia, the patient was turned in to the left lateral decubitus position. The area over the unstageable decubitus was prepped with Betadine and draped in sterile fashion. A time-out was taken, and using a scalpel, incision was made around the unstageable sacral decubitus ulcer. Using the electrocautery, this was taken down through skin, subcutaneous tissue , fat, muscle, and fascia until viable tissue was encountered. The excised specimen was passed off the field and sent for pathological examination. Hemostasis was secured with electrocautery and then the wound copiously irrigated with sterile saline. Hemostasis was again verified and the wound packed with saline-soaked Kerlix and dressed with dry, sterile dressings. The procedure was terminated at this point and the patient aroused from general anesthesia and transferred to the post anesthesia care unit in a stable condition awake and alert. ESTIMATED BLOOD LOSS: 25 mL. REPLACEMENTS: Crystalloid. DRAINS: None. SPECIMEN: Nonviable soft tissue to Pathology. I, Edu Hansen, was physically present in the operating room from the time the patient was placed on the operating room table until she was transferred to the post anesthesia care unit in [facility]. MD DERRICK Aquino/[id number] MTDD
--- NOTE | 2019-06-20 13:03 | PN ---
Progress Note (short form) - Note Progress Note: PULMONARY Clinically no significant changes. Nonverbal. No fevers recorded. Gen: NAD at rest Heart: RRR Lung: scattered rhonchi Abd: soft, nontender Ext no edema Labs/meds/notes/images reviewed A/P Acute Hypercapneic Respiratory Failure improving Pneumonia likely Aspiration Sepsis Lactic Acidosis Acute Kidney Injury HTN DM Parkinsons Dementia - Off ABX - Monitor off systemic steroids - inhaled bronchodilators - o2 to keep SpO2 >90% - aspiration precautions - DVT prophylaxis - Discussions for GOC ongoing: Family is not realistic about overall condition and outcome Jermaine MOYER MD
--- NOTE | 2019-06-20 14:34 | PN ---
Teaching Attending Note Name of Resident: Simeon Balbuena ATTENDING PHYSICIAN STATEMENT I saw and evaluated the patient. I reviewed the resident's note and discussed the case with the resident. I agree with the resident's findings and plan as documented. SUBJECTIVE: No events over night. OBJECTIVE: MMM. opened her eyes CV: RRR. Lungs: clear anteriorly Abd: soft, NT, ND, NL BS. Ext: trace edema on feet. Skin: sacral decub ulcer was not examined today ASSESSMENT AND PLAN: 79 y/o lady with h/o Parkinson Disease and dementia who presented with AMS. 1- Acute hypercapnic resp failure. Resolved 2- PNA, likely aspiration PNA. finished ABx 3- JOS: resolved 4- Rhabdo : resolved 5- Thrombocytopenia: resolved 6- h/o HTN 7- h/o DM 8- AMS: acute metabolic encephalopathy . Improved 9- h/o dementia 10- Microcytic anemia 11- contaminant blood cx 12- Unstageable sacral decub ulcer , s/p debridment Plan: - s/p debridement of the decubitus ulcer . POd 1 - for wound vac placement on Saturday - cont TF for now - IR placement of PEg , hopefully on Saturday - wound care and dressing changes - slight lekocytosis , is likely due to the procedure yesterday . will repat CBC tomorrow - cont Sinemet - heparin SQ. - cont SSI - No BMP tomorrow ASSESSMENT AND PLAN:
[2019-06-20] MEDS: MORPHINE SULFATE 2 MG/ML VIAL IVPUSH PRN (19:03)
[2019-06-20] MEDS ORDERED: INSULIN (NOVOLOG) ASPART 100 UNITS/ML 10ML VIAL ONE (20:53)
[2019-06-21] MEDS: HEPARIN NA (PORCINE) 5,000 UNITS/ML 1ML VIAL SQ SCH ×3 (06:16→23:35)
[2019-06-21] MEDS: CARBIDOPA/LEVODOPA 25/100 TABLET (FP) PO SCH ×3 (06:17→18:39)
[2019-06-21] MEDS: INSULIN SLIDING SCALE (NOVOLOG) 1 VIAL SQ SCH ×4 (06:24→23:42)
[2019-06-21 08:26] LABS: HEMATOCRIT 30.3 % (32.4-45.2); HEMOGLOBIN 9.5 GM/dL (10.7-15.3); MCH 22.8 pg (25.7-33.7); MCHC 31.4 g/dl (32.0-36.0); MEAN CELL VOLUME 72.8 fl (80-96); MEAN PLT VOLUME 9.8 fl (7.5-11.1); PLATELET COUNT 262 K/MM3 (134-434); RBC 4.16 M/mm3 (3.60-5.2); RDW 17.2 % (11.6-15.6); WHITE BLOOD COUNT 19.7 K/mm3 (4.0-10.0)
[2019-06-21 08:44] LABS: BLOOD UREA NITROGEN 19.6 mg/dL (7-18); CALCIUM 8.3 mg/dL (8.5-10.1); CREATININE 0.9 mg/dL (0.55-1.3); POTASSIUM 4.1 mmol/L (3.5-5.1)
--- NOTE | 2019-06-21 09:47 | PN ---
Progress Note, Physician Chief Complaint: sleeping comfortably No distress noted - Current Medication List Current Medications: Active Medications Albuterol Sulfate (Ventolin 0.083% Nebulizer Soln -) 1 amp NEB Q6H PRN PRN Reason: SHORT OF BREATH/WHEEZING Carbidopa/Levodopa (Sinemet 25/100 -) 2 each PO TID@0700,1200,1900 [facility] Last Admin: 06/21/19 06:17 Dose: 2 each Famotidine (Pepcid) 20 mg PO BID [facility] Last Admin: 06/20/19 21:51 Dose: 20 mg Heparin Sodium (Porcine) (Heparin -) 5,000 unit SQ TID [facility] Last Admin: 06/21/19 06:16 Dose: 5,000 unit Insulin Aspart (Novolog Vial Sliding Scale -) 1 vial SQ ACHS [facility]; Protocol Last Admin: 06/21/19 06:24 Dose: 2 units Morphine Sulfate (Morphine Sulfate) 2 mg IVPUSH Q4H PRN PRN Reason: PAIN LEVEL 6-10 Last Admin: 06/20/19 19:03 Dose: 2 mg Non-Formulary Medication (Rotigotine [Neupro]) 1 each TD DAILY [facility] Last Admin: 06/20/19 10:31 Dose: 1 each Rivastigmine (Exelon Patch 4.6mg/24 Hours -) 1 each TD DAILY [facility] Last Admin: 06/20/19 10:30 Dose: 1 each - Objective Vital Signs: Vital Signs Temperature 99.2 F 06/21/19 06:00 Pulse Rate 101 H 06/21/19 06:00 Respiratory Rate 18 06/21/19 06:00 Blood Pressure 128/70 06/21/19 06:00 O2 Sat by Pulse Oximetry (%) 99 06/21/19 09:00 Constitutional: Yes: No Distress Cardiovascular: Yes: Regular Rate and Rhythm Respiratory: Yes: CTA Bilaterally Gastrointestinal: Yes: Soft Edema: No Labs: CBC, BMP 06/21/19 07:42 06/21/19 07:42 INR, PTT INR 1.15 (0.83-1.09) H 06/19/19 07:57 Laboratory Tests 06/21/19 06/21/19 07:42 07:42 WBC 19.7 H Hgb 9.5 L Plt Count 262 Sodium 133 L Potassium 4.1 Creatinine 0.9 Assessment/Plan Assessment/Plan echo 05/2019 nl LV/RV function, impaired relaxation, elevated filling pressures, RV not well visualized, mild to mod MR, mild mod TR CXR: no congestion/effusions (+ atx) PNA, sepsis, acute respiratory failure 2/2 suspected aspiration: - manage per critical care, ID; - intubated after suspected aspiration event, now extubated - nl LV function on echo HTN: - stable off meds DM: - manage per primary dementia, parkinson's: - manage per primary - family considering peg JOS, rhabdo: - renal fxn improved Leukocytosis: -rising WBC, as per PMD.
[2019-06-21] MEDS: FAMOTIDINE 40 MG/5 ML ORAL SUSPENSION PO SCH ×2 (10:30→23:42)
[2019-06-21] MEDS: PATIENT'S OWN MEDICATION (NON-FORMULARY) (Rotigotine [Neupro] 1 EACH) TD SCH (10:33)
[2019-06-21] MEDS: RIVASTIGMINE 4.6 MG/24 HOURS TRANSDERMAL PATCH TD SCH (10:33)
--- NOTE | 2019-06-21 11:43 | PN ---
Progress Note (short form) - Note Progress Note: PULMONARY Clinically no significant changes. Nonverbal. Low grade temp Gen: NGT FEEDS IN PROGRESS Heart: RRR Lung: scattered rhonchi Abd: soft, nontender Ext no edema Labs/meds/notes/images reviewed A/P Acute Hypercapneic Respiratory Failure improving Pneumonia likely Aspiration Sepsis Lactic Acidosis Acute Kidney Injury HTN DM Parkinsons Dementia - inhaled bronchodilators - o2 to keep SpO2 >90% - aspiration precautions - DVT prophylaxis - Discussions for GOC Jermaine MOYER MD
[2019-06-21] MEDS: MORPHINE SULFATE 2 MG/ML VIAL IVPUSH PRN (15:30)
--- NOTE | 2019-06-21 16:10 | PN ---
Progress Note (short form) - Note Progress Note: Subjective: No events over night Objective: Vital Signs: Last Vital Signs Temp Pulse Resp BP Pulse Ox 100.3 F H 93 H 18 109/64 99 06/21/19 15:51 06/21/19 15:51 06/21/19 15:51 06/21/19 15:51 06/21/19 09:49 Laboratory Results - last 24 hr 06/20/19 06/20/19 06/21/19 17:08 21:30 06:22 WBC RBC Hgb Hct MCV MCH MCHC RDW Plt Count MPV Sodium Potassium Chloride Carbon Dioxide Anion Gap BUN Creatinine Est GFR (CKD-EPI)AfAm Est GFR (CKD-EPI)NonAf POC Glucometer 148 143 167 Random Glucose Calcium 06/21/19 06/21/19 06/21/19 07:42 07:42 13:54 WBC 19.7 H RBC 4.16 Hgb 9.5 L Hct 30.3 L MCV 72.8 L MCH 22.8 L MCHC 31.4 L RDW 17.2 H Plt Count 262 MPV 9.8 Sodium 133 L Potassium 4.1 Chloride 99 Carbon Dioxide 26 Anion Gap 8 BUN 19.6 H Creatinine 0.9 Est GFR (CKD-EPI)AfAm 69.50 Est GFR (CKD-EPI)NonAf 59.96 POC Glucometer 145 Random Glucose 122 H Calcium 8.3 L Physical Exam: MMM. opened her eyes CV: RRR. Lungs: clear anteriorly Abd: soft, NT, ND, NL BS. Ext: trace edema on feet. Skin: sacral decub ulcer, deep , stage 4, with clean base. dark area in center. ASSESSMENT AND PLAN: 79 y/o lady with h/o Parkinson Disease and dementia who presented with AMS. 1- Acute hypercapnic resp failure. Resolved. 2- PNA, likely aspiration PNA. finished ABx 3- JOS: resolved 4- Rhabdo : resolved 5- Thrombocytopenia: resolved 6- h/o HTN 7- h/o DM 8- AMS: acute metabolic encephalopathy . Improved 9- h/o dementia 10- Microcytic anemia 11- contaminant blood cx 12- Unstageable sacral decub ulcer , s/p debridment Plan: - s/p debridement of the decubitus ulcer. POD 2. monitor the ulcer, dark center. wet to dry dressing changes. - wound VAC on Saturday - cont TF for now - will hole for PEG if done tomorrow - IR placement of PEg , possibly tomorrow - wound care and dressing changes - lekocytosis and fever : ? source. will get UA and Cxray . if fever again, will send blood cx . - cont Sinemet - Hold heparin SQ after MN . - cont SSI Visit type - Emergency Visit Emergency Visit: Yes ED Registration Date: 06/01/19 Care time: The patient presented to the Emergency Department on the above date and was hospitalized for further evaluation of their emergent condition. - New Patient This patient is new to me today: No - Critical Care Critical Care patient: No
[2019-06-21] MEDS ORDERED: ACETAMINOPHEN 1000 MG/100 ML VIAL (NON FORMULARY) IVPB ONE (16:15)
[2019-06-21 20:53] LABS: URINE APPEARANCE Clear; URINE BILIRUBIN Negative (NEGATIVE); URINE COLOR Yellow; URINE GLUCOSE (UA) Negative (NEGATIVE); URINE KETONE Negative (NEGATIVE); URINE LEUK ESTERASE Negative (NEGATIVE); URINE NITRITE Negative (NEGATIVE); URINE PROTEIN 1+ (NEGATIVE)
[2019-06-22] MEDS: INSULIN SLIDING SCALE (NOVOLOG) 1 VIAL SQ SCH ×4 (06:00→23:00)
[2019-06-22] MEDS: CARBIDOPA/LEVODOPA 25/100 TABLET (FP) PO SCH ×3 (06:01→19:26)
--- NOTE | 2019-06-22 08:43 | PN ---
Progress Note (short form) - Note Progress Note: Neurology CHIEF COMPLAINT: AMS PCP: None HISTORY OF PRESENT ILLNESS: Ms. Prescott is an 79 year old female with PMH of Parkinson Disease and dementia who was BIBEMS with AMS x4 days at time of admission. Daughter was at bedside and that time and provided history. Pt lives at home (no ASSEMBLER CAMPER or VNS) with daughter as primary orange picker. At baseline she is non-ambulatory and mental status changes from day to day (some days she is alert and oriented, can speak sentences, other days she does not speak at all). Pt has had a productive cough of yellow sputum for 4 days before day of admission and has become increasingly confused and somnolent. Decreased appetite, unable to eat or drink anything. On day of admission, she was not responding at all and had a low grade fever. Daughter stated that pt has not complained of any symptoms (chest pain, abd pain , SOB, urinary complaints). On arrival to ED, pt was hypoxic in the 80s. Patient consulted for altered mental status. Ct of head reviewed and showed no evidence of a focal intracranial lesion or hemorrhage completed on 06/01 at the time of admission. Patient downgraded from ICU and currently on telemetry floor. Still sluggish, not following all commands but able to open her eyes briefly. Mental status appears to remain stable without ssignificant improvement. Repeat CT head without acute changes. ID note reviewed, received ZOsyn, now being monitored off Abx. Remains on Sinemet as well as Exelon patch for Parkinson's which does not seem to be the etiology to her mental status. Extensive clinical course as noted without significant improvement. More awake for me this AM, verbally communicative but could not answer where she is at this time. Plan to have PEG tube placed, possibly this AM. Active Medications Albuterol Sulfate (Ventolin 0.083% Nebulizer Soln -) 1 amp NEB Q6H PRN PRN Reason: SHORT OF BREATH/WHEEZING Carbidopa/Levodopa (Sinemet 25/100 -) 2 each PO TID@0700,1200,1900 [facility] Last Admin: 06/22/19 06:01 Dose: 2 each Famotidine (Pepcid) [address] [facility] Last Admin: 06/21/19 23:42 Dose: 20 mg Heparin Sodium (Porcine) (Heparin -) 5,[address] [facility] Last Admin: 06/21/19 23:35 Dose: 5,000 unit Insulin Aspart (Novolog Vial Sliding Scale -) 1 vial SQ ACHS [facility]; Protocol Last Admin: 06/22/19 06:00 Dose: 2 units Morphine Sulfate (Morphine Sulfate) 2 mg IVPUSH Q4H PRN PRN Reason: PAIN LEVEL 6-10 Last Admin: 06/21/19 15:30 Dose: 2 mg Non-Formulary Medication (Rotigotine [Neupro]) 1 each TD DAILY [facility] Last Admin: 06/21/19 10:33 Dose: 1 each Rivastigmine (Exelon Patch 4.6mg/24 Hours -) 1 each TD DAILY [facility] Last Admin: 06/21/19 10:33 Dose: 1 each PHYSICAL EXAMINATION Vital Signs Period Temp Pulse Resp BP Sys/Campbell Pulse Ox Last 24 Hr 98.4 F-100.3 F 84-98 18-18 102-109/60-64 99-99 GENERAL: Somnolent, slightly responsive to sternal rub. HEAD: Normal with no signs of trauma. EYES: Pupils equal, round and reactive to light, extraocular movements intact, sclera anicteric, conjunctiva clear. No lid lag. EARS, NOSE, THROAT: Ears normal, nares patent, oropharynx clear without exudates. Dry mucous membranes. NECK: Normal range of motion, supple without lymphadenopathy, JVD, or masses. LUNGS: Inspiratory and expiratory wheezes throughout, accessory muscle use. HEART: Regular rate and rhythm, normal S1 and S2 without murmur, rub or gallop. ABDOMEN: Soft, nontender, not distended, normoactive bowel sounds, no guarding, no rebound, no masses. No hepatomegaly or splenomegaly. MUSCULOSKELETAL: Normal range of motion at all joints. No bony deformities or tenderness. No CVA tenderness. UPPER EXTREMITIES: 2+ pulses, warm, well-perfused. No cyanosis. No clubbing. No peripheral edema. LOWER EXTREMITIES: 2+ pulses, warm, well-perfused. No calf tenderness. No peripheral edema. NEUROLOGICAL: Unable to assess 2/2 mental status. PSYCHIATRIC: Cooperative. Good eye contact. Appropriate mood and affect. SKIN: Warm, dry, normal turgor, normal capillary refill. Sacral decubitus ulcer with sloughing skin and erythema. CBCD WBC 19.7 K/mm3 (4.0-10.0) H 06/21/19 07:42 RBC 4.16 M/mm3 (3.60-5.2) 06/21/19 07:42 Hgb 9.5 GM/dL (10.7-15.3) L 06/21/19 07:42 Hct 30.3 % (32.4-45.2) L 06/21/19 07:42 MCV 72.8 fl (80-96) L 06/21/19 07:42 MCHC 31.4 g/dl (32.0-36.0) L 06/21/19 07:42 RDW 17.2 % (11.6-15.6) H 06/21/19 07:42 Plt Count 262 K/MM3 (134-434) 06/21/19 07:42 MPV 9.8 fl (7.5-11.1) 06/21/19 07:42 CMP Sodium 133 mmol/L (136-145) L 06/21/19 07:42 Potassium 4.1 mmol/L (3.5-5.1) 06/21/19 07:42 Chloride 99 mmol/L (98-107) 06/21/19 07:42 Carbon Dioxide 26 mmol/L (21-32) 06/21/19 07:42 Anion Gap 8 MMOL/L (8-16) 06/21/19 07:42 BUN 19.6 mg/dL (7-18) H 06/21/19 07:42 Creatinine 0.9 mg/dL (0.55-1.3) 06/21/19 07:42 Random Glucose 122 mg/dL (74-106) H 06/21/19 07:42 Calcium 8.3 mg/dL (8.5-10.1) L 06/21/19 07:42 Total Bilirubin 0.8 mg/dL (0.2-1) 06/19/19 07:57 AST 11 U/L (15-37) L 06/19/19 07:57 ALT 7 U/L (13-61) L 06/19/19 07:57 Alkaline Phosphatase 75 U/L (45-117) 06/19/19 07:57 Total Protein 6.7 g/dl (6.4-8.2) 06/19/19 07:57 Albumin 2.8 g/dl (3.4-5.0) L 06/19/19 07:57 CARDIAC ENZYMES Creatine Kinase 281 U/L (26-192) H 06/04/19 06:30 Troponin I < 0.02 ng/ml (0.00-0.05) 06/01/19 04:07 ASSESSMENT/PLAN: Ms. Prescott is an 79 year old female with PMH of Parkinson Disease and dementia who was BIBEMS with AMS x4 days at time of admission. Daughter was at bedside and that time and provided history. Pt lives at home (no ASSEMBLER CAMPER or VNS) with daughter as primary orange picker. At baseline she is non-ambulatory and mental status changes from day to day (some days she is alert and oriented, can speak sentences, other days she does not speak at all). Pt has had a productive cough of yellow sputum for 4 days before day of admission and has become increasingly confused and somnolent. Decreased appetite, unable to eat or drink anything. On day of admission, she was not responding at all and had a low grade fever. Daughter stated that pt has not complained of any symptoms (chest pain, abd pain , SOB, urinary complaints). On arrival to ED, pt was hypoxic in the 80s. Patient consulted for altered mental status. Ct of head reviewed and showed no evidence of a focal intracranial lesion or hemorrhage completed on 06/01 at the time of admission. Patient downgraded from ICU and currently on telemetry floor. Slightly more awake this morning, not following all commands but able to open her eyes briefly. Patient downgraded from ICU and currently on telemetry floor. Still sluggish, not following all commands but able to open her eyes briefly. Mental status appears to remain stable without ssignificant improvement. Repeat CT head without acute changes. ID note reviewed, received ZOsyn, now being monitored off Abx. Remains on Sinemet as well as Exelon patch for Parkinson's. Parkinson's does not seem to be the etiology to her mental status. Extensive clinical course as noted without significant improvement. ID note reviewed, received ZOsyn, now being monitored off Abx, followed by the recommendations. Maintain adequate hydration, frequent orientation whenever able. More awake for me this AM, verbally communicative but could not answer where she is at this time. Plan to have PEG tube placed, possibly this AM.
[2019-06-22 08:46] LABS: BASO % 0.4 % (0-2.0); EOS % 0.8 % (0-4.5); HEMATOCRIT 27.4 % (32.4-45.2); HEMOGLOBIN 8.7 GM/dL (10.7-15.3); LYMPH % 12.1 % (8-40); MCHC 31.9 g/dl (32.0-36.0); MEAN PLT VOLUME 9.6 fl (7.5-11.1); NEUT % 78.7 % (42.8-82.8); PLATELET COUNT 220 K/MM3 (134-434); RDW 17.1 % (11.6-15.6); WHITE BLOOD COUNT 17.1 K/mm3 (4.0-10.0)
[2019-06-22] MEDS: RIVASTIGMINE 4.6 MG/24 HOURS TRANSDERMAL PATCH TD SCH (09:42)
[2019-06-22] MEDS: PATIENT'S OWN MEDICATION (NON-FORMULARY) (Rotigotine [Neupro] 1 EACH) TD SCH (09:43)
[2019-06-22] MEDS: FAMOTIDINE 40 MG/5 ML ORAL SUSPENSION PO SCH ×2 (09:43→22:58)
[2019-06-22] MEDS ORDERED: DEXTROSE 5%-WATER - 50 ML IVPB ONE ×2 (09:59→17:54)
[2019-06-22] MEDS ORDERED: PIPERACILLIN/TAZOBACTAM 3.375 GM VIAL IVPB ONE ×2 (09:59→17:54)
[2019-06-22] MEDS ORDERED: PIPERACILLIN/TAZOB 3.375 GM 3.375 GM in DEXTROSE 5%-WATER - 50 ML IVPB SCH (10:00)
[2019-06-22 12:27] LABS: BLOOD UREA NITROGEN 21.8 mg/dL (7-18); CALCIUM 8.1 mg/dL (8.5-10.1); CREATININE 0.8 mg/dL (0.55-1.3); POTASSIUM 4.2 mmol/L (3.5-5.1)
--- NOTE | 2019-06-22 12:49 | PN ---
Progress Note (short form) - Note Progress Note: PULMONARY Pt nonverbal. Low grade fevers. CXR showing left sided infiltrate. Vital Signs Period Temp Pulse Resp BP Sys/Campbell Pulse Ox Last 24 Hr 98.4 F-100.5 F 84-93 18-18 102-109/58-64 99-99 Gen: NAD at rest Heart: RRR Lung: scattered rhonchi Abd: soft, nontender Ext: no edema CBC, BMP 06/22/19 07:43 06/22/19 11:40 Active Medications Albuterol Sulfate (Ventolin 0.083% Nebulizer Soln -) 1 amp NEB Q6H PRN PRN Reason: SHORT OF BREATH/WHEEZING Carbidopa/Levodopa (Sinemet 25/100 -) 2 each PO TID@0700,1200,1900 [facility] Last Admin: 06/22/19 06:01 Dose: 2 each Famotidine (Pepcid) 20 mg PO BID [facility] Last Admin: 06/22/19 09:43 Dose: 20 mg Heparin Sodium (Porcine) (Heparin -) 5,000 unit SQ TID [facility] Last Admin: 06/21/19 23:35 Dose: 5,000 unit Piperacillin Sod/Tazobactam (Sod 3.375 gm/ Dextrose) 50 mls @ 100 mls/hr IVPB Q8H-IV [facility]; Protocol Piperacillin Sod/Tazobactam (Sod 3.375 gm/ Dextrose) 50 mls @ 100 mls/hr IVPB Q8H-IV [facility] Stop: 06/23/19 10:29 Last Admin: 06/22/19 10:04 Dose: 100 mls/hr Insulin Aspart (Novolog Vial Sliding Scale -) 1 vial SQ ACHS [facility]; Protocol Last Admin: 06/22/19 12:24 Dose: 2 units Non-Formulary Medication (Rotigotine [Neupro]) 1 each TD DAILY [facility] Last Admin: 06/22/19 09:43 Dose: 1 each Rivastigmine (Exelon Patch 4.6mg/24 Hours -) 1 each TD DAILY [facility] Last Admin: 06/22/19 09:42 Dose: 1 each A/P Acute Hypercapneic Respiratory Failure improving Pneumonia likely Aspiration Sepsis Lactic Acidosis Acute Kidney Injury HTN DM Parkinsons Dementia Anemia - continue antibiotics - inhaled bronchodilators - o2 to keep SpO2 >90% - aspiration precautions - DVT prophylaxis
--- NOTE | 2019-06-22 15:41 | PN ---
Progress Note (short form) - Note Progress Note: s: no chest pain, palps, dizziness, dyspnea Current Medications Albuterol Sulfate (Ventolin 0.083% Nebulizer Soln -) 1 amp NEB Q6H PRN PRN Reason: SHORT OF BREATH/WHEEZING Carbidopa/Levodopa (Sinemet 25/100 -) 2 each PO TID@0700,1200,1900 [facility] Last Admin: 06/22/19 13:00 Dose: 2 each Famotidine (Pepcid) 20 mg PO BID [facility] Last Admin: 06/22/19 09:43 Dose: 20 mg Heparin Sodium (Porcine) (Heparin -) 5,000 unit SQ TID [facility] Last Admin: 06/21/19 23:35 Dose: 5,000 unit Piperacillin Sod/Tazobactam (Sod 3.375 gm/ Dextrose) 50 mls @ 100 mls/hr IVPB Q8H-IV [facility]; Protocol Piperacillin Sod/Tazobactam (Sod 3.375 gm/ Dextrose) 50 mls @ 100 mls/hr IVPB Q8H-IV [facility] Stop: 06/23/19 10:29 Last Admin: 06/22/19 10:04 Dose: 100 mls/hr Insulin Aspart (Novolog Vial Sliding Scale -) 1 vial SQ ACHS [facility]; Protocol Last Admin: 06/22/19 12:24 Dose: 2 units Non-Formulary Medication (Rotigotine [Neupro]) 1 each TD DAILY [facility] Last Admin: 06/22/19 09:43 Dose: 1 each Rivastigmine (Exelon Patch 4.6mg/24 Hours -) 1 each TD DAILY [facility] Last Admin: 06/22/19 09:42 Dose: 1 each Vital Signs Period Temp Pulse Resp BP Sys/Campbell Pulse Ox Last 24 Hr 98.4 F-100.5 F 84-93 18-18 102-109/58-64 97-99 Constitutional: Yes: No Distress Cardiovascular: Yes: Regular Rate and Rhythm Respiratory: Yes: CTA Bilaterally Gastrointestinal: Yes: Soft Edema: No no jaundice, diaphoresis not agitated Assessment/Plan echo 05/2019 nl LV/RV function, impaired relaxation, elevated filling pressures, RV not well visualized, mild to mod MR, mild mod TR CXR: no congestion/effusions (+ atx) PNA, sepsis, acute respiratory failure 2/2 suspected aspiration: - manage per critical care, ID; - was intubated after suspected aspiration event, now extubated - nl LV function on echo HTN: - stable off meds DM: - manage per primary dementia, parkinson's: - manage per primary - plan for PEG JOS, rhabdo: - renal fxn improved Leukocytosis: -rising WBC, as per PMD.
--- NOTE | 2019-06-22 16:43 | PN ---
Teaching Attending Note Name of Resident: Juan Salazar ATTENDING PHYSICIAN STATEMENT I saw and evaluated the patient. I reviewed the resident's note and discussed the case with the resident. I agree with the resident's findings and plan as documented. SUBJECTIVE: No events over night. fever again this am OBJECTIVE: MMM. opened her eyes. CV: RRR. Lungs: L base crackles . Abd: soft, NT, ND, NL BS. Ext: trace edema on feet. Skin: sacral decub ulcer, deep , stage 4, with clean base. dusky area in center. No discharge ASSESSMENT AND PLAN: 79 y/o lady with h/o Parkinson Disease and dementia who presented with AMS. 1- Acute hypercapnic resp failure. Resolved. 2- Aspiration PNA 3- JOS: resolved 4- Rhabdo : resolved 5- Thrombocytopenia: resolved 6- h/o HTN 7- h/o DM 8- AMS: acute metabolic encephalopathy . Improved 9- h/o dementia 10- Microcytic anemia 11- contaminant blood cx 12- Unstageable sacral decub ulcer , s/p debridment 06/20 Plan: - Fever source is likely LLL aspiration PNA. started Zosyn in am - re-consult ID for Abx approval - blood cx - sacral ulcer looks clean and uninfected - plan for wound vac application - cont TF. Hold after MN for PEG placement - cont Sinemet - Hold heparin SQ after MN . - cont SSI
[2019-06-22] MEDS: HEPARIN NA (PORCINE) 5,000 UNITS/ML 1ML VIAL SQ SCH ×3 (16:50→22:58)
[2019-06-22] MEDS ORDERED: ACETAMINOPHEN 650 MG/20.3 ML ORAL SOLUTION (CUPS) PO ONE (17:12)
--- NOTE | 2019-06-22 17:24 | PN ---
Physical Exam: SUBJECTIVE: Patient seen and examined NAEON Having TF O/N. Could not get PEG d/t feeds OBJECTIVE: Vital Signs Period Temp Pulse Resp BP Sys/Campbell Pulse Ox Last 24 Hr 98.4 F-101.3 F 84-89 18-18 102-108/49-64 97-99 GENERAL: Lethargic. Mildly response to painful stimuli HEAD: NC/AT EYES: extraocular movements tracking movement briefly, sclera anicteric, conjunctiva clear. No ptosis. ENT: Ears normal, nares patent, NGT feed running NECK: Trachea midline, full range of motion, supple. LUNGS: Breath sounds equal, mildly coarse BS w/ wheezes bilaterally. Breathing on RA HEART: Regular rate and rhythm, S1, S2 without murmur, rub or gallop. ABDOMEN: Soft, nontender, nondistended, normoactive bowel sounds, no guarding, no rebound. SACRUM: >10cm sacral wound with central area of dusky pink-arias coloration, no foul smell; no fibrinous exudate. EXTREMITIES: 2+ pulses, warm, well-perfused, no edema. BLE with nonpitting edema. DP2+ b/l NEUROLOGICAL: slightly opening eyes to loud questioning/pain, withdrawing BUE and BLE to painful stimuli. Lifting arms intermittently. Not responding to questioning SKIN: Warm, dry, normal turgor, no rashes or lesions noted Laboratory Results - last 24 hr 06/21/19 06/21/19 06/21/19 17:04 19:48 23:33 WBC RBC Hgb Hct MCV MCH MCHC RDW Plt Count MPV Absolute Neuts (auto) Neutrophils % Lymphocytes % Monocytes % Eosinophils % Basophils % Nucleated RBC % Sodium Potassium Chloride Carbon Dioxide Anion Gap BUN Creatinine Est GFR (CKD-EPI)AfAm Est GFR (CKD-EPI)NonAf POC Glucometer 153 149 Random Glucose Calcium Urine Color Yellow Urine Appearance Clear Urine pH 7.0 Ur Specific Conde 1.015 Urine Protein 1+ H Urine Glucose (UA) Negative Urine Ketones Negative Urine Blood Negative Urine Nitrite Negative Urine Bilirubin Negative Urine Urobilinogen 2.0 H Ur Leukocyte Esterase Negative 06/22/19 06/22/19 06/22/19 05:56 07:43 11:40 WBC 17.1 H RBC 3.80 Hgb 8.7 L Hct 27.4 L MCV 72.0 L MCH 23.0 L MCHC 31.9 L RDW 17.1 H Plt Count 220 MPV 9.6 Absolute Neuts (auto) 13.5 H Neutrophils % 78.7 Lymphocytes % 12.1 D Monocytes % 8.0 Eosinophils % 0.8 D Basophils % 0.4 Nucleated RBC % 0 Sodium 132 L Potassium 4.2 Chloride 97 L Carbon Dioxide 28 Anion Gap 7 L BUN 21.8 H Creatinine 0.8 Est GFR (CKD-EPI)AfAm 80.14 Est GFR (CKD-EPI)NonAf 69.14 POC Glucometer 151 Random Glucose 134 H Calcium 8.1 L Urine Color Urine Appearance Urine pH Ur Specific Conde Urine Protein Urine Glucose (UA) Urine Ketones Urine Blood Urine Nitrite Urine Bilirubin Urine Urobilinogen Ur Leukocyte Esterase 06/22/19 06/22/19 12:17 16:52 WBC RBC Hgb Hct MCV MCH MCHC RDW Plt Count MPV Absolute Neuts (auto) Neutrophils % Lymphocytes % Monocytes % Eosinophils % Basophils % Nucleated RBC % Sodium Potassium Chloride Carbon Dioxide Anion Gap BUN Creatinine Est GFR (CKD-EPI)AfAm Est GFR (CKD-EPI)NonAf POC Glucometer 152 122 Random Glucose Calcium Urine Color Urine Appearance Urine pH Ur Specific Conde Urine Protein Urine Glucose (UA) Urine Ketones Urine Blood Urine Nitrite Urine Bilirubin Urine Urobilinogen Ur Leukocyte Esterase Active Medications Generic Name Dose Route Start Last Admin Trade Name Simone PRN Reason Stop Dose Admin Albuterol Sulfate 1 amp 06/19/19 12:42 Ventolin 0.083% Nebulizer Soln - NEB Q6H PRN SHORT OF BREATH/WHEEZING Carbidopa/Levodopa 2 each 06/19/19 19:00 06/22/19 13:00 Sinemet 25/100 - PO 2 each TID@0700,1200,1900 [facility] Administration Famotidine 20 mg 06/19/19 22:00 06/22/19 09:43 Pepcid PO 20 mg BID [facility] Administration Heparin Sodium (Porcine) 5,000 unit 06/19/19 14:00 06/22/19 16:54 Heparin - SQ 5,000 unit TID [facility] Administration Piperacillin Sod/Tazobactam 50 mls @ 100 mls/hr 06/22/19 18:00 Sod 3.375 gm/ Dextrose IVPB Q8H-IV [facility] Protocol Insulin Aspart 1 vial 06/19/19 16:30 06/22/19 16:54 Novolog Vial Sliding Scale - SQ Not Given ACHS [facility] Protocol Non-Formulary Medication 1 each 06/20/19 10:00 06/22/19 09:43 Rotigotine [Neupro] TD 1 each DAILY [facility] Administration Rivastigmine 1 each 06/20/19 10:00 06/22/19 09:42 Exelon Patch 4.6mg/24 Hours - TD 1 each DAILY [facility] Administration ASSESSMENT/PLAN: 79y/o female with Parkinson's and dementia who presents with AMS and cough x 4 days. At baseline she is non-ambulatory and mental status changes from day to day (some days she is alert and oriented, can speak sentences, other days she does not speak at all). Admitted for AMS. Likely aspiration PNA. Pt was hypoxic to the 80s at ED presentation. Intubated for increased work of breathing. Flu negative. Atelectasis vs infiltrate at Left base. Extubated on 06/09. Repeat CTH on 06/11/19 by Neuro, w/o significant interval change; possibly chronic and superimposed sinusitis of Left maxillary antrum and sphenoid sinus. Daughter expresses desire to avoid PEG, has strong belief that optimization of Parkinson' s and Dementia drugs will help pt resolve AMS. Received zosyn x8d(06/01 -06/13) for possible aspiration PNA. Failing bedside S&S evaluation. TF via NGT. Solumedrol stopped on 06/15/19. IR(Carmencita) consult for possible PEG. Sacral wound worsening which prompted Sacral Decubitus Wound Debridement(Jade, ). Having fevers, possibly from Left-sided infiltrate vs sacral wound infection #acute hypoxic respiratory failure 2/2 multilobar PNA and sepsis -CXR improved post-intubation > CXR(06/08/19): Left base w/ minimal atelectasis, sharp rib angles > CXR(06/21/19): L-base w/ atelectasis vs infiltrate > flu: negative > Echo: normal EF, impaired relaxation, elevated filling pressures, TR, MR -duonebs TID -solumedrol 20mg IVP BID --> 20mg IVP QD --> stopped -zosyn 3.375g Q8H --stopped -ID(Valentino) consult: --resumed Zosyn on 06/22/19 -Pulm(Jourdan) consult: --taper medrol --stopped on 06/15/19 #AMS: toxic metabolic encephalopathy vs less likely CVA -CT head negative for acute processes -CT H(06/11/19): no significant change, possible chronic/superimposed Left maxillary sinusitis -urine cx negative -blood cx(06/01/19): Staph coag negative in 1 bottle --likely contaminant -blood cx(06/03/19): NGTD -blood cx(06/22/19) --pending -dietary following -speech following #inability to tolerate PO --2/ AMS -NGT feeds(Glucerna) -PEG(Aaron-DiGiorno) evaluation --will defer to IR -IR(Gabrael) evaluation --pending #sacral decubitus ulcer -surgery(Jacob Estrada) consulted --Reposition every two hours while in bed --Air mattress recommended --Use drawsheets and Trendelenburg when repositioning to reduce friction and shear --Manageincontinence via timely cleansing, use of appropriate incontinence disposables and use of barrier ointment to intact skin --Ensure adequate hydration/nutrition, supplementation per primary team --Ensure off-loading to all bony areas (heels, ankles, hips and tailbone) with Allevyn/Optifoam --Clean open wounds with normal saline and apply bacitracin -Surgery(Jade): --debridement 06/19/19 #leukocytosis -from infection vs steroid use -mild improvement continues -continue monitor #JOS, resolved -nephro following -Cardio following --diovan held --BP stable #anemia of chronic disease -microcytosis but low TIBC, unsaturated IBC, and high ferritin #Parkinson's and dementia -continue Sinimet, modified dose for NG tube, @0700, 1200, 1900 -rivostigmine patch -rotigotine patch #mild hypophosphatemia, resolved #lactic acidosis, resolved #transaminitis, improved DVT ppx SQH GI ppx protonix FEN monitor labs NG feeds: Glucerna Visit type - Emergency Visit Emergency Visit: No - New Patient This patient is new to me today: No - Critical Care Critical Care patient: No ATTENDING PHYSICIAN STATEMENT I saw and evaluated the patient. I reviewed the resident's note and discussed the case with the resident. I agree with the resident's findings and plan as documented. SUBJECTIVE: OBJECTIVE: ASSESSMENT AND PLAN:
[2019-06-22] MEDS: PIPERACILLIN/TAZOB 3.375 GM 3.375 GM in DEXTROSE 5%-WATER - 50 ML IVPB SCH (19:00)
--- NOTE | 2019-06-22 21:52 | PN ---
Progress Note, Physician History of Present Illness: POORLY RESPONSIVE RECURRENT FEVER NOTED CULTURES OBTAINED, EMPIRIC ZOSYN STARTED BREATHING NON LABORED ) - Current Medication List Current Medications: Active Medications Albuterol Sulfate (Ventolin 0.083% Nebulizer Soln -) 1 amp NEB Q6H PRN PRN Reason: SHORT OF BREATH/WHEEZING Carbidopa/Levodopa (Sinemet 25/100 -) 2 each PO TID@0700,1200,1900 [facility] Last Admin: 06/22/19 19:26 Dose: 2 each Famotidine (Pepcid) 20 mg PO BID [facility] Last Admin: 06/22/19 09:43 Dose: 20 mg Heparin Sodium (Porcine) (Heparin -) 5,000 unit SQ TID [facility] Last Admin: 06/22/19 16:54 Dose: 5,000 unit Piperacillin Sod/Tazobactam (Sod 3.375 gm/ Dextrose) 50 mls @ 100 mls/hr IVPB Q8H-IV [facility]; Protocol Last Admin: 06/22/19 19:00 Dose: 100 mls/hr Insulin Aspart (Novolog Vial Sliding Scale -) 1 vial SQ ACHS [facility]; Protocol Last Admin: 06/22/19 16:54 Dose: Not Given Non-Formulary Medication (Rotigotine [Neupro]) 1 each TD DAILY [facility] Last Admin: 06/22/19 09:43 Dose: 1 each Rivastigmine (Exelon Patch 4.6mg/24 Hours -) 1 each TD DAILY [facility] Last Admin: 06/22/19 09:42 Dose: 1 each - Objective Vital Signs: Vital Signs Temperature 101.7 F H 06/22/19 18:00 Pulse Rate 91 H 06/22/19 18:00 Respiratory Rate 18 06/22/19 18:00 Blood Pressure 100/70 06/22/19 18:00 O2 Sat by Pulse Oximetry (%) 97 06/22/19 10:00 Constitutional: Yes: No Distress Cardiovascular: Yes: Regular Rate and Rhythm, S1, S2 Respiratory: Yes: Diminished Gastrointestinal: Yes: Normal Bowel Sounds, Soft Edema: Yes Edema: LLE: 2+, RLE: 2+ Integumentary: Yes: Other (+ SACRAL DECUBITUS S/P DEBRIDEMENT) Labs: CBC, BMP 06/22/19 07:43 06/22/19 11:40 INR, PTT INR 1.15 (0.83-1.09) H 06/19/19 07:57 Assessment/Plan RESP FAILURE ? RECURRENT PNEUMONIA R/O SEPSIS SACRAL DECUBITUS ULCER LEUKOCYTOSIS RENAL INSUFFICIENCY PARKINSONISM/OBS CONTINUE ZOSYN AWAIT C/S
[2019-06-22] MEDS ORDERED: PT OWN MED DRAWER 7, Y5N ONE (22:25)
[2019-06-23] MEDS ORDERED: DEXTROSE 5%-WATER - 50 ML IVPB ONE ×3 (00:56→17:41)
[2019-06-23] MEDS ORDERED: PIPERACILLIN/TAZOBACTAM 3.375 GM VIAL IVPB ONE ×3 (00:56→17:40)
[2019-06-23] MEDS: PIPERACILLIN/TAZOB 3.375 GM 3.375 GM in DEXTROSE 5%-WATER - 50 ML IVPB SCH ×3 (01:29→17:43)
[2019-06-23] MEDS: CARBIDOPA/LEVODOPA 25/100 TABLET (FP) PO SCH ×3 (06:37→18:31)
[2019-06-23] MEDS: INSULIN SLIDING SCALE (NOVOLOG) 1 VIAL SQ SCH ×4 (06:37→23:03)
--- NOTE | 2019-06-23 08:51 | PN ---
Progress Note (short form) - Note Progress Note: Neurology CHIEF COMPLAINT: AMS PCP: None HISTORY OF PRESENT ILLNESS: Ms. Prescott is an 79 year old female with PMH of Parkinson Disease and dementia who was BIBEMS with AMS x4 days at time of admission. Daughter was at bedside and that time and provided history. Pt lives at home (no PAPER PATTERN FOLDER or VNS) with daughter as primary application security developer. At baseline she is non-ambulatory and mental status changes from day to day (some days she is alert and oriented, can speak sentences, other days she does not speak at all). Pt has had a productive cough of yellow sputum for 4 days before day of admission and has become increasingly confused and somnolent. Decreased appetite, unable to eat or drink anything. On day of admission, she was not responding at all and had a low grade fever. Daughter stated that pt has not complained of any symptoms (chest pain, abd pain , SOB, urinary complaints). On arrival to ED, pt was hypoxic in the 80s. Patient consulted for altered mental status. Ct of head reviewed and showed no evidence of a focal intracranial lesion or hemorrhage completed on 06/01 at the time of admission. Patient downgraded from ICU and currently on telemetry floor. Still sluggish, not following all commands but able to open her eyes briefly. Mental status appears to remain stable without ssignificant improvement. Repeat CT head without acute changes. ID note reviewed, received ZOsyn, now being monitored off Abx. Remains on Sinemet as well as Exelon patch for Parkinson's which does not seem to be the etiology to her mental status. Extensive clinical course as noted without significant improvement. Discussed with nurse, patient to have PEG tube place. Active Medications Albuterol Sulfate (Ventolin 0.083% Nebulizer Soln -) 1 amp NEB Q6H PRN PRN Reason: SHORT OF BREATH/WHEEZING Carbidopa/Levodopa (Sinemet 25/100 -) 2 each PO TID@0700,1200,1900 [facility] Last Admin: 06/23/19 06:37 Dose: 2 each Famotidine (Pepcid) 20 mg PO BID [facility] Last Admin: 06/22/19 22:58 Dose: 20 mg Heparin Sodium (Porcine) (Heparin -) 5,000 unit SQ TID [facility] Last Admin: 06/22/19 22:58 Dose: 5,000 unit Piperacillin Sod/Tazobactam (Sod 3.375 gm/ Dextrose) 50 mls @ 100 mls/hr IVPB Q8H-IV [facility]; Protocol Last Admin: 06/23/19 01:29 Dose: 100 mls/hr Insulin Aspart (Novolog Vial Sliding Scale -) 1 vial SQ ACHS [facility]; Protocol Last Admin: 06/23/19 06:37 Dose: Not Given Non-Formulary Medication (Rotigotine [Neupro]) 1 each TD DAILY [facility] Last Admin: 06/22/19 09:43 Dose: 1 each Rivastigmine (Exelon Patch 4.6mg/24 Hours -) 1 each TD DAILY [facility] Last Admin: 06/22/19 09:42 Dose: 1 each PHYSICAL EXAMINATION Vital Signs Period Temp Pulse Resp BP Sys/Campbell Pulse Ox Last 24 Hr 98.7 F-101.7 F 77-91 18-18 100-108/49-70 96-97 GENERAL: Somnolent, slightly responsive to sternal rub. HEAD: Normal with no signs of trauma. EYES: Pupils equal, round and reactive to light, extraocular movements intact, sclera anicteric, conjunctiva clear. No lid lag. EARS, NOSE, THROAT: Ears normal, nares patent, oropharynx clear without exudates. Dry mucous membranes. NECK: Normal range of motion, supple without lymphadenopathy, JVD, or masses. LUNGS: Inspiratory and expiratory wheezes throughout, accessory muscle use. HEART: Regular rate and rhythm, normal S1 and S2 without murmur, rub or gallop. ABDOMEN: Soft, nontender, not distended, normoactive bowel sounds, no guarding, no rebound, no masses. No hepatomegaly or splenomegaly. MUSCULOSKELETAL: Normal range of motion at all joints. No bony deformities or tenderness. No CVA tenderness. UPPER EXTREMITIES: 2+ pulses, warm, well-perfused. No cyanosis. No clubbing. No peripheral edema. LOWER EXTREMITIES: 2+ pulses, warm, well-perfused. No calf tenderness. No peripheral edema. NEUROLOGICAL: Unable to assess 2/2 mental status. PSYCHIATRIC: Cooperative. Good eye contact. Appropriate mood and affect. SKIN: Warm, dry, normal turgor, normal capillary refill. Sacral decubitus ulcer with sloughing skin and erythema. CBCD WBC 17.1 K/mm3 (4.0-10.0) H 06/22/19 07:43 RBC 3.80 M/mm3 (3.60-5.2) 06/22/19 07:43 Hgb 8.7 GM/dL (10.7-15.3) L 06/22/19 07:43 Hct 27.4 % (32.4-45.2) L 06/22/19 07:43 MCV 72.0 fl (80-96) L 06/22/19 07:43 MCHC 31.9 g/dl (32.0-36.0) L 06/22/19 07:43 RDW 17.1 % (11.6-15.6) H 06/22/19 07:43 Plt Count 220 K/MM3 (134-434) 06/22/19 07:43 MPV 9.6 fl (7.5-11.1) 06/22/19 07:43 CMP Sodium 132 mmol/L (136-145) L 06/22/19 11:40 Potassium 4.2 mmol/L (3.5-5.1) 06/22/19 11:40 Chloride 97 mmol/L (98-107) L 06/22/19 11:40 Carbon Dioxide 28 mmol/L (21-32) 06/22/19 11:40 Anion Gap 7 MMOL/L (8-16) L 06/22/19 11:40 BUN 21.8 mg/dL (7-18) H 06/22/19 11:40 Creatinine 0.8 mg/dL (0.55-1.3) 06/22/19 11:40 Random Glucose 134 mg/dL (74-106) H 06/22/19 11:40 Calcium 8.1 mg/dL (8.5-10.1) L 06/22/19 11:40 Total Bilirubin 0.8 mg/dL (0.2-1) 06/19/19 07:57 AST 11 U/L (15-37) L 06/19/19 07:57 ALT 7 U/L (13-61) L 06/19/19 07:57 Alkaline Phosphatase 75 U/L (45-117) 06/19/19 07:57 Total Protein 6.7 g/dl (6.4-8.2) 06/19/19 07:57 Albumin 2.8 g/dl (3.4-5.0) L 06/19/19 07:57 CARDIAC ENZYMES Creatine Kinase 281 U/L (26-192) H 06/04/19 06:30 Troponin I < 0.02 ng/ml (0.00-0.05) 06/01/19 04:07 ASSESSMENT/PLAN: Ms. Prescott is an 79 year old female with PMH of Parkinson Disease and dementia who was BIBEMS with AMS x4 days at time of admission. Daughter was at bedside and that time and provided history. Pt lives at home (no PAPER PATTERN FOLDER or VNS) with daughter as primary application security developer. At baseline she is non-ambulatory and mental status changes from day to day (some days she is alert and oriented, can speak sentences, other days she does not speak at all). Pt has had a productive cough of yellow sputum for 4 days before day of admission and has become increasingly confused and somnolent. Decreased appetite, unable to eat or drink anything. On day of admission, she was not responding at all and had a low grade fever. Daughter stated that pt has not complained of any symptoms (chest pain, abd pain , SOB, urinary complaints). On arrival to ED, pt was hypoxic in the 80s. Patient consulted for altered mental status. Ct of head reviewed and showed no evidence of a focal intracranial lesion or hemorrhage completed on 06/01 at the time of admission. Patient downgraded from ICU and currently on telemetry floor. Slightly more awake this morning, not following all commands but able to open her eyes briefly. Patient downgraded from ICU and currently on telemetry floor. Still sluggish, not following all commands but able to open her eyes briefly. Mental status appears to remain stable without ssignificant improvement. Repeat CT head without acute changes. ID note reviewed, received ZOsyn, now being monitored off Abx. Remains on Sinemet as well as Exelon patch for Parkinson's. Parkinson's does not seem to be the etiology to her mental status. Extensive clinical course as noted without significant improvement. ID note reviewed, received ZOsyn, now being monitored off Abx, followed by the recommendations. Maintain adequate hydration, frequent orientation whenever able. More awake for me this AM, verbally communicative but could not answer where she is at this time. Plan to have PEG tube placed possibly today, discussed with nurse. No new neurologic events.
--- NOTE | 2019-06-23 10:02 | PN ---
Progress Note (short form) - Note Progress Note: SURGERY 79yo F s/p decubitus ulcer debridement seen and examined at bedside. Pt is demented and unable to give history. According to nursing no acute events. Last Vital Signs Temp Pulse Resp BP Pulse Ox 98.6 F 80 18 112/66 96 06/23/19 09:29 06/23/19 09:29 06/23/19 09:29 06/23/19 09:29 06/22/19 22:00 CBC, BMP 06/22/19 07:43 06/22/19 11:40 PE Gen: Awake, oriented to voice Resp: breathing comfortably Back: Right buttock shows sacral decub 11cm x 14cm x 2cm, clean with some fibrinous tissue in the center, serous drainage. No erythema. Vac was placed at bedside. Problem List - Problems (1) Decubitus ulcer Assessment/Plan: Plan -continue Vac dressing changing T-Th-Sat, pt cleared for discharge from surgical standpoint. -pt should follow up with Dr. Hansen in the office if possible, otherwise wound care clinic or PCP for wound care. Pt discussed with Dr. Hansen who agrees with plan Code(s): L89.90 - PRESSURE ULCER OF UNSPECIFIED SITE, UNSPECIFIED STAGE Qualifiers: Pressure injury location: contiguous region involving back and buttock Pressure injury stage: stage 4 Laterality: right Qualified Code(s): L89.44 - Pressure ulcer of contiguous site of back, buttock and hip, stage 4
[2019-06-23] MEDS: PATIENT'S OWN MEDICATION (NON-FORMULARY) (Rotigotine [Neupro] 1 EACH) TD SCH (11:32)
[2019-06-23] MEDS: FAMOTIDINE 40 MG/5 ML ORAL SUSPENSION PO SCH ×2 (11:33→23:04)
[2019-06-23] MEDS: RIVASTIGMINE 4.6 MG/24 HOURS TRANSDERMAL PATCH TD SCH (11:33)
[2019-06-23 12:00] LABS: BLOOD UREA NITROGEN 17.6 mg/dL (7-18); CALCIUM 8.3 mg/dL (8.5-10.1); CREATININE 0.8 mg/dL (0.55-1.3); POTASSIUM 4.2 mmol/L (3.5-5.1)
--- NOTE | 2019-06-23 13:04 | PN ---
Progress Note (short form) - Note Progress Note: PULMONARY Pt nonverbal. For PEG placement. Febrile to 101.7 Vital Signs Period Temp Pulse Resp BP Sys/Campbell Pulse Ox Last 24 Hr 98.6 F-101.7 F 77-91 18-18 100-112/49-70 96-96 Gen: NAD at rest Heart: RRR Lung: scattered rhonchi Abd: soft, nontender Ext: no edema CBC, BMP 06/22/19 07:43 06/23/19 10:45 Active Medications Albuterol Sulfate (Ventolin 0.083% Nebulizer Soln -) 1 amp NEB Q6H PRN PRN Reason: SHORT OF BREATH/WHEEZING Carbidopa/Levodopa (Sinemet 25/100 -) 2 each PO TID@0700,1200,1900 [facility] Last Admin: 06/23/19 11:33 Dose: Not Given Famotidine (Pepcid) 20 mg PO BID [facility] Last Admin: 06/23/19 11:33 Dose: Not Given Heparin Sodium (Porcine) (Heparin -) 5,000 unit SQ TID [facility] Last Admin: 06/22/19 22:58 Dose: 5,000 unit Piperacillin Sod/Tazobactam (Sod 3.375 gm/ Dextrose) 50 mls @ 100 mls/hr IVPB Q8H-IV [facility]; Protocol Last Admin: 06/23/19 11:31 Dose: 100 mls/hr Insulin Aspart (Novolog Vial Sliding Scale -) 1 vial SQ ACHS [facility]; Protocol Last Admin: 06/23/19 11:33 Dose: Not Given Non-Formulary Medication (Rotigotine [Neupro]) 1 each TD DAILY [facility] Last Admin: 06/23/19 11:32 Dose: 1 each Rivastigmine (Exelon Patch 4.6mg/24 Hours -) 1 each TD DAILY [facility] Last Admin: 06/23/19 11:33 Dose: 1 each A/P Acute Hypercapneic Respiratory Failure improving Pneumonia likely Aspiration Sepsis Lactic Acidosis Acute Kidney Injury HTN DM Parkinsons Dementia Anemia - for PEG placement - continue antibiotics - inhaled bronchodilators - o2 to keep SpO2 >90% - aspiration precautions - DVT prophylaxis
--- NOTE | 2019-06-23 14:53 | PN ---
Progress Note, Physician Chief Complaint: seen and examined s/p PEG Appears comfortable No distress noted. - Current Medication List Current Medications: Active Medications Albuterol Sulfate (Ventolin 0.083% Nebulizer Soln -) 1 amp NEB Q6H PRN PRN Reason: SHORT OF BREATH/WHEEZING Carbidopa/Levodopa (Sinemet 25/100 -) 2 each PO TID@0700,1200,1900 [facility] Last Admin: 06/23/19 11:33 Dose: Not Given Famotidine (Pepcid) 20 mg PO BID [facility] Last Admin: 06/23/19 11:33 Dose: Not Given Heparin Sodium (Porcine) (Heparin -) 5,000 unit SQ TID [facility] Last Admin: 06/22/19 22:58 Dose: 5,000 unit Piperacillin Sod/Tazobactam (Sod 3.375 gm/ Dextrose) 50 mls @ 100 mls/hr IVPB Q8H-IV [facility]; Protocol Last Admin: 06/23/19 11:31 Dose: 100 mls/hr Insulin Aspart (Novolog Vial Sliding Scale -) 1 vial SQ ACHS [facility]; Protocol Last Admin: 06/23/19 11:33 Dose: Not Given Non-Formulary Medication (Rotigotine [Neupro]) 1 each TD DAILY [facility] Last Admin: 06/23/19 11:32 Dose: 1 each Rivastigmine (Exelon Patch 4.6mg/24 Hours -) 1 each TD DAILY [facility] Last Admin: 06/23/19 11:33 Dose: 1 each - Objective Vital Signs: Vital Signs Temperature 98.6 F 06/23/19 09:29 Pulse Rate 82 06/23/19 14:20 Respiratory Rate 15 06/23/19 14:20 Blood Pressure 136/80 06/23/19 14:20 O2 Sat by Pulse Oximetry (%) 97 06/23/19 14:20 Constitutional: Yes: No Distress Cardiovascular: Yes: Regular Rate and Rhythm Respiratory: Yes: CTA Bilaterally (No active wheezing, no rales.) Gastrointestinal: Yes: Soft (No tenderness noted at this time.) Edema: No Neurological: Yes: Other (Nonverbal) Labs: CBC, BMP 06/22/19 07:43 06/23/19 10:45 INR, PTT INR 1.15 (0.83-1.09) H 06/19/19 07:57 Microbiology 06/22/19 11:40 Blood - Peripheral Venous Blood Culture - Preliminary NO GROWTH OBTAINED AFTER 24 HOURS, INCUBATION TO CONTINUE FOR 4 DAYS. 06/22/19 11:35 Blood - Peripheral Venous Blood Culture - Preliminary NO GROWTH OBTAINED AFTER 24 HOURS, INCUBATION TO CONTINUE FOR 4 DAYS. Laboratory Tests 06/22/19 06/23/19 07:43 10:45 WBC 17.1 H Hgb 8.7 L Plt Count 220 Sodium 133 L Potassium 4.2 Creatinine 0.8 Assessment/Plan Assessment/Plan echo 05/2019 nl LV/RV function, impaired relaxation, elevated filling pressures, RV not well visualized, mild to mod MR, mild mod TR CXR: no congestion/effusions (+ atx) PNA, sepsis, acute respiratory failure 2/ suspected aspiration: - manage per critical care, ID; - was intubated after suspected aspiration event, now extubated - nl LV function on echo HTN: - stable off meds DM: - manage per primary dementia, parkinson's: - manage per primary - s/p PEG JOS, rhabdo: - renal fxn improved Leukocytosis: -rising WBC, as per PMD.
--- NOTE | 2019-06-23 17:20 | PN ---
Physical Exam: SUBJECTIVE: Patient seen and examined NAEON NPO O/N for PEG. OBJECTIVE: Vital Signs Period Temp Pulse Resp BP Sys/Campbell Pulse Ox Last 24 Hr 98.6 F-101.7 F 77-91 15-18 100-136/55-80 96-100 GENERAL: Lethargic. Mildly response to painful stimuli HEAD: NC/AT EYES: extraocular movements tracking movement briefly, sclera anicteric, conjunctiva clear. No ptosis. ENT: Ears normal, nares patent, NGT feed running NECK: Trachea midline, full range of motion, supple. LUNGS: Breath sounds equal, mildly coarse BS w/ wheezes bilaterally. Breathing on RA HEART: Regular rate and rhythm, S1, S2 without murmur, rub or gallop. ABDOMEN: Soft, nontender, nondistended, normoactive bowel sounds, no guarding, no rebound. SACRUM: >10cm sacral wound with central area of dusky pink-arias coloration, no foul smell; no fibrinous exudate. EXTREMITIES: 2+ pulses, warm, well-perfused, no edema. BLE with nonpitting edema. DP2+ b/l NEUROLOGICAL: slightly opening eyes to loud questioning/pain, withdrawing BUE and BLE to painful stimuli. Lifting arms intermittently. Not responding to questioning SKIN: Warm, dry, normal turgor, no rashes or lesions noted Laboratory Results - last 24 hr 06/22/19 06/23/19 06/23/19 23:00 04:31 06:36 Sodium Potassium Chloride Carbon Dioxide Anion Gap BUN Creatinine Est GFR (CKD-EPI)AfAm Est GFR (CKD-EPI)NonAf POC Glucometer 119 128 127 Random Glucose Calcium 06/23/19 06/23/19 06/23/19 10:45 11:31 16:39 Sodium 133 L Potassium 4.2 Chloride 99 Carbon Dioxide 28 Anion Gap 7 L BUN 17.6 Creatinine 0.8 Est GFR (CKD-EPI)AfAm 80.14 Est GFR (CKD-EPI)NonAf 69.14 POC Glucometer 125 122 Random Glucose 115 H Calcium 8.3 L Active Medications Generic Name Dose Route Start Last Admin Trade Name Freq PRN Reason Stop Dose Admin Albuterol Sulfate 1 amp 06/19/19 12:42 Ventolin 0.083% Nebulizer Soln - NEB Q6H PRN SHORT OF BREATH/WHEEZING Carbidopa/Levodopa 2 each 06/19/19 19:00 06/23/19 11:33 Sinemet 25/100 - PO Not Given TID@0700,1200,1900 [facility] Famotidine 20 mg 06/19/19 22:00 06/23/19 11:33 Pepcid PO Not Given BID [facility] Heparin Sodium (Porcine) 5,000 unit 06/19/19 14:00 06/22/19 22:58 Heparin - SQ 5,000 unit TID [facility] Administration Piperacillin Sod/Tazobactam 50 mls @ 100 mls/hr 06/22/19 18:00 06/23/19 11:31 Sod 3.375 gm/ Dextrose IVPB 100 mls/hr Q8H-IV [facility] Administration Protocol Insulin Aspart 1 vial 06/19/19 16:30 06/23/19 16:42 Novolog Vial Sliding Scale - SQ Not Given ACHS [facility] Protocol Non-Formulary Medication 1 each 06/20/19 10:00 06/23/19 11:32 Rotigotine [Neupro] TD 1 each DAILY [facility] Administration Rivastigmine 1 each 06/20/19 10:00 06/23/19 11:33 Exelon Patch 4.6mg/24 Hours - TD 1 each DAILY [facility] Administration ASSESSMENT/PLAN: 79y/o female with Parkinson's and dementia who presents with AMS and cough x 4 days. At baseline she is non-ambulatory and mental status changes from day to day (some days she is alert and oriented, can speak sentences, other days she does not speak at all). Admitted for AMS. Likely aspiration PNA. Pt was hypoxic to the 80s at ED presentation. Intubated for increased work of breathing. Flu negative. Atelectasis vs infiltrate at Left base. Extubated on 06/09. Repeat CTH on 06/11/19 by Neuro, w/o significant interval change; possibly chronic and superimposed sinusitis of Left maxillary antrum and sphenoid sinus. Daughter expresses desire to avoid PEG, has strong belief that optimization of Parkinson' s and Dementia drugs will help pt resolve AMS. Received zosyn x8d(06/01 -06/13) for possible aspiration PNA. Failing bedside S&S evaluation. TF via NGT. Solumedrol stopped on 06/15/19. IR(Carmencita) consult for possible PEG. Sacral wound worsening which prompted Sacral Decubitus Wound Debridement(Jade, ). Having fevers, possibly from Left-sided infiltrate vs sacral wound infection. Sacral wound has been VAC'd. s/p IR PEG 06/23/19 #acute hypoxic respiratory failure 2/2 multilobar PNA and sepsis -CXR improved post-intubation > CXR(06/08/19): Left base w/ minimal atelectasis, sharp rib angles > CXR(06/21/19): L-base w/ atelectasis vs infiltrate > flu: negative > Echo: normal EF, impaired relaxation, elevated filling pressures, TR, MR -duonebs TID -solumedrol 20mg IVP BID --> 20mg IVP QD --> stopped -zosyn 3.375g Q8H --for PNA vs infected sacral wound -ID(Valentino) consult: --resumed Zosyn on 06/22/19 -Pulm(Jourdan) consult: --taper medrol --stopped on 06/15/19 #AMS: toxic metabolic encephalopathy vs less likely CVA -CT head negative for acute processes -CT H(06/11/19): no significant change, possible chronic/superimposed Left maxillary sinusitis -urine cx negative -blood cx(06/01/19): Staph coag negative in 1 bottle --likely contaminant -blood cx(06/03/19): NGTD -blood cx(06/22/19): NGTD -dietary following -speech following #inability to tolerate PO --2/2 AMS -NGT feeds(Glucerna) -PEG(Aaron-DiGiorno) evaluation --will defer to IR -IR(Karen) evaluation: placed 06/23/19 #sacral decubitus ulcer -surgery(Jacob Estrada) consulted --Reposition every two hours while in bed --Air mattress recommended --Use drawsheets and Trendelenburg when repositioning to reduce friction and shear --Manageincontinence via timely cleansing, use of appropriate incontinence disposables and use of barrier ointment to intact skin --Ensure adequate hydration/nutrition, supplementation per primary team --Ensure off-loading to all bony areas (heels, ankles, hips and tailbone) with Allevyn/Optifoam --Clean open wounds with normal saline and apply bacitracin -Surgery(Hansen): --debridement 06/19/19 #leukocytosis -from infection vs steroid use -mild improvement continues -continue monitor #JOS, resolved -nephro following -Cardio following --diovan held --BP stable #anemia of chronic disease -microcytosis but low TIBC, unsaturated IBC, and high ferritin #Parkinson's and dementia -continue Sinimet, modified dose for NG tube, @0700, 1200, 1900 -rivostigmine patch -rotigotine patch #mild hypophosphatemia, resolved #lactic acidosis, resolved #transaminitis, improved DVT ppx SQH GI ppx protonix FEN monitor labs NG feeds: PEG placed, Glucerna to be started soon Visit type - Emergency Visit Emergency Visit: No - New Patient This patient is new to me today: No - Critical Care Critical Care patient: No ATTENDING PHYSICIAN STATEMENT I saw and evaluated the patient. I reviewed the resident's note and discussed the case with the resident. I agree with the resident's findings and plan as documented. SUBJECTIVE: OBJECTIVE: ASSESSMENT AND PLAN:
--- NOTE | 2019-06-23 18:01 | PN ---
Teaching Attending Note Name of Resident: Miguel A Stovall ATTENDING PHYSICIAN STATEMENT I saw and evaluated the patient. I reviewed the resident's note and discussed the case with the resident. I agree with the resident's findings and plan as documented. SUBJECTIVE: No events over night OBJECTIVE: MMM. opened her eyes. CV: RRR. Lungs: L base crackles . Abd: soft, NT, ND, NL BS. Ext: trace edema on feet. Skin: sacral decub ulcer, deep , stage 4, with clean base. dusky area in center. No discharge ASSESSMENT AND PLAN: 79 y/o lady with h/o Parkinson Disease and dementia who presented with AMS. 1- Acute hypercapnic resp failure. Resolved. 2- Aspiration PNA 3- JOS: resolved 4- Rhabdo : resolved 5- Thrombocytopenia: resolved 6- h/o HTN 7- h/o DM 8- AMS: acute metabolic encephalopathy . Improved 9- h/o dementia 10- Microcytic anemia 11- contaminant blood cx 12- Unstageable sacral decub ulcer , s/p debridment 06/20 Plan: - cont zosyn - blood cx ngtd - wound vac application - PEG - cont Sinemet - resume heparin sq - cont SSI - will use the PEG when recommended to use
[2019-06-23] MEDS ORDERED: ACETAMINOPHEN 1000 MG/100 ML VIAL (NON FORMULARY) IVPB PRN (20:26)
[2019-06-23] MEDS ORDERED: SODIUM CHLORIDE 1,000 ML IV SCH (20:30)
[2019-06-23] MEDS: HEPARIN NA (PORCINE) 5,000 UNITS/ML 1ML VIAL SQ SCH (23:03)
[2019-06-23] MEDS ORDERED: PT OWN MED DRAWER 7, Y5N ONE (23:21)
[2019-06-24] MEDS ORDERED: PIPERACILLIN/TAZOBACTAM 3.375 GM VIAL IVPB ONE ×3 (01:25→17:45)
[2019-06-24] MEDS ORDERED: DEXTROSE 5%-WATER - 50 ML IVPB ONE ×3 (01:25→17:45)
[2019-06-24] MEDS: PIPERACILLIN/TAZOB 3.375 GM 3.375 GM in DEXTROSE 5%-WATER - 50 ML IVPB SCH ×3 (02:11→17:47)
[2019-06-24] MEDS ORDERED: DEXTROSE 5%-WATER - 1,000 ML IV SCH (04:45)
[2019-06-24] MEDS: INSULIN SLIDING SCALE (NOVOLOG) 1 VIAL SQ SCH ×4 (06:34→21:20)
[2019-06-24] MEDS: HEPARIN NA (PORCINE) 5,000 UNITS/ML 1ML VIAL SQ SCH ×3 (06:35→21:19)
[2019-06-24] MEDS: CARBIDOPA/LEVODOPA 25/100 TABLET (FP) PO SCH ×3 (06:35→18:05)
--- NOTE | 2019-06-24 08:28 | PN ---
Progress Note (short form) - Note Progress Note: Neurology CHIEF COMPLAINT: AMS PCP: None HISTORY OF PRESENT ILLNESS: Ms. Prescott is an 79 year old female with PMH of Parkinson Disease and dementia who was BIBEMS with AMS x4 days at time of admission. Daughter was at bedside and that time and provided history. Pt lives at home (no MANAGER CLIENT SERVICE or VNS) with daughter as primary lung puller. At baseline she is non-ambulatory and mental status changes from day to day (some days she is alert and oriented, can speak sentences, other days she does not speak at all). Pt has had a productive cough of yellow sputum for 4 days before day of admission and has become increasingly confused and somnolent. Decreased appetite, unable to eat or drink anything. On day of admission, she was not responding at all and had a low grade fever. Daughter stated that pt has not complained of any symptoms (chest pain, abd pain , SOB, urinary complaints). On arrival to ED, pt was hypoxic in the 80s. Patient consulted for altered mental status. Ct of head reviewed and showed no evidence of a focal intracranial lesion or hemorrhage completed on 06/01 at the time of admission. Patient downgraded from ICU and currently on telemetry floor. Still sluggish, not following all commands but able to open her eyes briefly. Mental status appears to remain stable without ssignificant improvement. Repeat CT head without acute changes. ID note reviewed, received ZOsyn, now being monitored off Abx. Remains on Sinemet as well as Exelon patch for Parkinson's which does not seem to be the etiology to her mental status. Extensive clinical course as noted without significant improvement. Follow up GI regarding peg tube, per notes family not interested in SNF, would like to take patient home when stable. Active Medications Acetaminophen (Ofirmev Injection -) 1,000 mg IVPB Q6H PRN PRN Reason: PAIN LEVEL 6-10 Stop: 06/24/19 20:26 Last Admin: 06/23/19 20:46 Dose: 1,000 mg Albuterol Sulfate (Ventolin 0.083% Nebulizer Soln -) 1 amp NEB Q6H PRN PRN Reason: SHORT OF BREATH/WHEEZING Carbidopa/Levodopa (Sinemet 25/100 -) 2 each PO TID@0700,1200,1900 [facility] Last Admin: 06/24/19 06:35 Dose: 2 each Famotidine (Pepcid) 20 mg PO BID [facility] Last Admin: 06/23/19 23:04 Dose: 20 mg Heparin Sodium (Porcine) (Heparin -) 5,000 unit SQ TID [facility] Last Admin: 06/24/19 06:35 Dose: 5,000 unit Piperacillin Sod/Tazobactam (Sod 3.375 gm/ Dextrose) 50 mls @ 100 mls/hr IVPB Q8H-IV [facility]; Protocol Last Admin: 06/24/19 02:11 Dose: 100 mls/hr Dextrose (D5w -) 1,000 mls @ 75 mls/hr IV .[id number] [facility] Last Admin: 06/24/19 04:56 Dose: 75 mls/hr Insulin Aspart (Novolog Vial Sliding Scale -) 1 vial SQ ACHS [facility]; Protocol Last Admin: 06/24/19 06:34 Dose: Not Given Non-Formulary Medication (Rotigotine [Neupro]) 1 each TD DAILY [facility] Last Admin: 06/23/19 11:32 Dose: 1 each Rivastigmine (Exelon Patch 4.6mg/24 Hours -) 1 each TD DAILY [facility] Last Admin: 06/23/19 11:33 Dose: 1 each PHYSICAL EXAMINATION Vital Signs Period Temp Pulse Resp BP Sys/Campbell Pulse Ox Last 24 Hr 97.0 F-98.6 F 75-85 15-18 109-148/61-84 97-100 GENERAL: Somnolent, slightly responsive to sternal rub. HEAD: Normal with no signs of trauma. EYES: Pupils equal, round and reactive to light, extraocular movements intact, sclera anicteric, conjunctiva clear. No lid lag. EARS, NOSE, THROAT: Ears normal, nares patent, oropharynx clear without exudates. Dry mucous membranes. NECK: Normal range of motion, supple without lymphadenopathy, JVD, or masses. LUNGS: Inspiratory and expiratory wheezes throughout, accessory muscle use. HEART: Regular rate and rhythm, normal S1 and S2 without murmur, rub or gallop. ABDOMEN: Soft, nontender, not distended, normoactive bowel sounds, no guarding, no rebound, no masses. No hepatomegaly or splenomegaly. MUSCULOSKELETAL: Normal range of motion at all joints. No bony deformities or tenderness. No CVA tenderness. UPPER EXTREMITIES: 2+ pulses, warm, well-perfused. No cyanosis. No clubbing. No peripheral edema. LOWER EXTREMITIES: 2+ pulses, warm, well-perfused. No calf tenderness. No peripheral edema. NEUROLOGICAL: Unable to assess /2 mental status. PSYCHIATRIC: Cooperative. Good eye contact. Appropriate mood and affect. SKIN: Warm, dry, normal turgor, normal capillary refill. Sacral decubitus ulcer with sloughing skin and erythema. CBCD WBC 17.1 K/mm3 (4.0-10.0) H 06/22/19 07:43 RBC 3.80 M/mm3 (3.60-5.2) 06/22/19 07:43 Hgb 8.7 GM/dL (10.7-15.3) L 06/22/19 07:43 Hct 27.4 % (32.4-45.2) L 06/22/19 07:43 MCV 72.0 fl (80-96) L 06/22/19 07:43 MCHC 31.9 g/dl (32.0-36.0) L 06/22/19 07:43 RDW 17.1 % (11.6-15.6) H 06/22/19 07:43 Plt Count 220 K/MM3 (134-434) 06/22/19 07:43 MPV 9.6 fl (7.5-11.1) 06/22/19 07:43 CMP Sodium 133 mmol/L (136-145) L 06/23/19 10:45 Potassium 4.2 mmol/L (3.5-5.1) 06/23/19 10:45 Chloride 99 mmol/L (98-107) 06/23/19 10:45 Carbon Dioxide 28 mmol/L (21-32) 06/23/19 10:45 Anion Gap 7 MMOL/L (8-16) L 06/23/19 10:45 BUN 17.6 mg/dL (7-18) 06/23/19 10:45 Creatinine 0.8 mg/dL (0.55-1.3) 06/23/19 10:45 Random Glucose 115 mg/dL (74-106) H 06/23/19 10:45 Calcium 8.3 mg/dL (8.5-10.1) L 06/23/19 10:45 Total Bilirubin 0.8 mg/dL (0.2-1) 06/19/19 07:57 AST 11 U/L (15-37) L 06/19/19 07:57 ALT 7 U/L (13-61) L 06/19/19 07:57 Alkaline Phosphatase 75 U/L (45-117) 06/19/19 07:57 Total Protein 6.7 g/dl (6.4-8.2) 06/19/19 07:57 Albumin 2.8 g/dl (3.4-5.0) L 06/19/19 07:57 CARDIAC ENZYMES Creatine Kinase 281 U/L (26-192) H 06/04/19 06:30 Troponin I < 0.02 ng/ml (0.00-0.05) 06/01/19 04:07 ASSESSMENT/PLAN: Ms. Prescott is an 79 year old female with PMH of Parkinson Disease and dementia who was BIBEMS with AMS x4 days at time of admission. Daughter was at bedside and that time and provided history. Pt lives at home (no [employer]NA[employer] CLIENT SERVICE or VNS) with daughter as primary lung puller. At baseline she is non-ambulatory and mental status changes from day to day (some days she is alert and oriented, can speak sentences, other days she does not speak at all). Pt has had a productive cough of yellow sputum for 4 days before day of admission and has become increasingly confused and somnolent. Decreased appetite, unable to eat or drink anything. On day of admission, she was not responding at all and had a low grade fever. Daughter stated that pt has not complained of any symptoms (chest pain, abd pain , SOB, urinary complaints). On arrival to ED, pt was hypoxic in the 80s. Patient consulted for altered mental status. Ct of head reviewed and showed no evidence of a focal intracranial lesion or hemorrhage completed on 06/01 at the time of admission. Patient downgraded from ICU and currently on telemetry floor. Slightly more awake this morning, not following all commands but able to open her eyes briefly. Patient downgraded from ICU and currently on telemetry floor. Still sluggish, not following all commands but able to open her eyes briefly. Mental status appears to remain stable without ssignificant improvement. Repeat CT head without acute changes. ID note reviewed, received ZOsyn, now being monitored off Abx. Remains on Sinemet as well as Exelon patch for Parkinson's. Parkinson's does not seem to be the etiology to her mental status. Extensive clinical course as noted without significant improvement. ID note reviewed, received ZOsyn, now being monitored off Abx, followed by the recommendations. Maintain adequate hydration, frequent orientation whenever able. More awake for me this AM, verbally communicative but could not answer where she is at this time. Follow up GI regarding peg tube, per notes family not interested in SNF, would like to take patient home when stable.
[2019-06-24 08:54] LABS: HEMATOCRIT 28.6 % (32.4-45.2); HEMOGLOBIN 9.3 GM/dL (10.7-15.3); MCH 23.7 pg (25.7-33.7); MCHC 32.6 g/dl (32.0-36.0); MEAN CELL VOLUME 72.5 fl (80-96); PLATELET COUNT 239 K/MM3 (134-434); RBC 3.95 M/mm3 (3.60-5.2); RDW 17.2 % (11.6-15.6); WHITE BLOOD COUNT 8.9 K/mm3 (4.0-10.0)
[2019-06-24 09:12] LABS: CALCIUM 8.1 mg/dL (8.5-10.1); CREATININE 0.7 mg/dL (0.55-1.3); MAGNESIUM 2.4 mg/dL (1.8-2.4); PHOSPHOROUS 2.9 mg/dL (2.5-4.9); POTASSIUM 3.4 mmol/L (3.5-5.1)
--- NOTE | 2019-06-24 09:28 | PN ---
Teaching Attending Note Name of Resident: Miguel A Stovall ATTENDING PHYSICIAN STATEMENT I saw and evaluated the patient. I reviewed the resident's note and discussed the case with the resident. I agree with the resident's findings and plan as documented. SUBJECTIVE: Patient is comfortable with no acute distress. Patient is more awake today. OBJECTIVE: Vital Signs Temperature 97.0 F L 06/24/19 06:00 Pulse Rate 77 06/24/19 06:00 Respiratory Rate 18 06/24/19 06:00 Blood Pressure 125/76 06/24/19 06:00 O2 Sat by Pulse Oximetry (%) 98 06/23/19 22:00 GENERAL: The patient is awake, with no acute distress. HEAD: Normal with no signs of trauma. EYES: PERRL, extraocular movements intact, sclera anicteric, conjunctiva clear. ENT: Ears normal, oropharynx clear without exudates, moist mucous membranes. NECK: Trachea midline, full range of motion, supple. LUNGS: Breath sounds equal, clear to auscultation bilaterally, no wheezes, no crackles, no accessory muscle use. HEART: Regular rate and rhythm, S1, S2 without murmur, rub or gallop. ABDOMEN: Soft, nontender, nondistended, normoactive bowel sounds, no guarding, no rebound, no hepatosplenomegaly, no masses. EXTREMITIES: 2+ pulses, warm, well-perfused, no edema. NEUROLOGICAL: Cranial nerves II through XII grossly intact. gait not observed. SKIN: Warm, dry, normal turgor, no rashes or lesions noted CBCD WBC 8.9 K/mm3 (4.0-10.0) 06/24/19 08:13 RBC 3.95 M/mm3 (3.60-5.2) 06/24/19 08:13 Hgb 9.3 GM/dL (10.7-15.3) L 06/24/19 08:13 Hct 28.6 % (32.4-45.2) L 06/24/19 08:13 MCV 72.5 fl (80-96) L 06/24/19 08:13 MCHC 32.6 g/dl (32.0-36.0) 06/24/19 08:13 RDW 17.2 % (11.6-15.6) H 06/24/19 08:13 Plt Count 239 K/MM3 (134-434) 06/24/19 08:13 MPV 9.0 fl (7.5-11.1) 06/24/19 08:13 CMP Sodium 139 mmol/L (136-145) 06/24/19 08:13 Potassium 3.4 mmol/L (3.5-5.1) L 06/24/19 08:13 Chloride 105 mmol/L (98-107) 06/24/19 08:13 Carbon Dioxide 27 mmol/L (21-32) 06/24/19 08:13 Anion Gap 7 MMOL/L (8-16) L 06/24/19 08:13 BUN 13.0 mg/dL (7-18) 06/24/19 08:13 Creatinine 0.7 mg/dL (0.55-1.3) 06/24/19 08:13 Random Glucose 135 mg/dL (74-106) H 06/24/19 08:13 Calcium 8.1 mg/dL (8.5-10.1) L 06/24/19 08:13 Total Bilirubin 0.8 mg/dL (0.2-1) 06/19/19 07:57 AST 11 U/L (15-37) L 06/19/19 07:57 ALT 7 U/L (13-61) L 06/19/19 07:57 Alkaline Phosphatase 75 U/L (45-117) 06/19/19 07:57 Total Protein 6.7 g/dl (6.4-8.2) 06/19/19 07:57 Albumin 2.8 g/dl (3.4-5.0) L 06/19/19 07:57 CARDIAC ENZYMES Creatine Kinase 281 U/L (26-192) H 06/04/19 06:30 Troponin I < 0.02 ng/ml (0.00-0.05) 06/01/19 04:07 Current Medications Generic Name Dose Route Start Last Admin Trade Name Freq PRN Reason Stop Dose Admin Acetaminophen 1,000 mg 06/23/19 20:26 06/23/19 20:46 Ofirmev Injection - IVPB 06/24/19 20:26 1,000 mg Q6H PRN Administration PAIN LEVEL 6-10 Albuterol Sulfate 1 amp 06/19/19 12:42 Ventolin 0.083% Nebulizer Soln - NEB Q6H PRN SHORT OF BREATH/WHEEZING Carbidopa/Levodopa 2 each 06/19/19 19:00 06/24/19 06:35 Sinemet 25/100 - PO 2 each TID@0700,1200,1900 [facility] Administration Famotidine 20 mg 06/19/19 22:00 06/23/19 23:04 Pepcid PO 20 mg BID [facility] Administration Heparin Sodium (Porcine) 5,000 unit 06/19/19 14:00 06/24/19 06:35 Heparin - SQ 5,000 unit TID [facility] Administration Piperacillin Sod/Tazobactam 50 mls @ 100 mls/hr 06/22/19 18:00 06/24/19 02:11 Sod 3.375 gm/ Dextrose IVPB 100 mls/hr Q8H-IV [facility] Administration Protocol Dextrose 1,000 mls @ 75 mls/hr 06/24/19 04:45 06/24/19 04:56 D5w - IV 75 mls/hr .[id number] [facility] Administration Insulin Aspart 1 vial 06/19/19 16:30 06/24/19 06:34 Novolog Vial Sliding Scale - SQ Not Given ACHS [facility] Protocol Non-Formulary Medication 1 each 06/20/19 10:00 06/23/19 11:32 Rotigotine [Neupro] TD 1 each DAILY [facility] Administration Rivastigmine 1 each 06/20/19 10:00 06/23/19 11:33 Exelon Patch 4.6mg/24 Hours - TD 1 each DAILY [facility] Administration Home Medications Medication Instructions Recorded Ca/D3/Mag Ox/Zinc/Senior Vice President/Ketan/Bor 1 each PO HS 04/13/18 [Calcium 600-D3 Plus Caplet] Carbidopa/Levodopa [Carbidopa-Levo 1 each PO TID 04/13/18 ER 50-200 Tab] Aspirin 81 mg PO DAILY 06/01/19 Melatonin 5 mg PO HS 06/01/19 Olanzapine [Zyprexa -] 7.5 mg PO DAILY 06/01/19 Omeprazole 20 mg PO DAILY 06/01/19 Rivastigmine [Exelon Patch 1 each TD DAILY 06/01/19 4.6MG/24 Hours] Rotigotine [Neupro] 1 each TD DAILY 06/01/19 Microbiology 06/22/19 11:40 Blood - Peripheral Venous Blood Culture - Preliminary NO GROWTH OBTAINED AFTER 24 HOURS, INCUBATION TO CONTINUE FOR 4 DAYS. 06/22/19 11:35 Blood - Peripheral Venous Blood Culture - Preliminary NO GROWTH OBTAINED AFTER 24 HOURS, INCUBATION TO CONTINUE FOR 4 DAYS. 06/03/19 11:40 Blood - Peripheral Venous Blood Culture - Final NO GROWTH AFTER 5 DAYS INCUBATION 06/03/19 12:00 Blood - Peripheral Venous Blood Culture - Final NO GROWTH AFTER 5 DAYS INCUBATION 06/04/19 06:20 Sputum - Oropharynx Suctioned Sputum Gram Stain - Final 06/04/19 06:20 Sputum - Oropharynx Suctioned Sputum Sputum Culture - Final Yeast Like Organism 06/01/19 00:00 Blood - Peripheral Venous Blood Culture - Final NO GROWTH AFTER 5 DAYS INCUBATION 06/01/19 00:00 Blood - Peripheral Venous Blood Culture - Final Staph Capitis Subsp Ureolyticu 06/01/19 03:00 Urine For Antigen Detection Legionella Antigen - Final 06/01/19 03:00 Urine For Antigen Detection Streptococcus pneumoniae Antigen (M - Final 06/01/19 01:20 Urine - Urine - Catheterized Urine Culture - Final NO GROWTH OBTAINED ASSESSMENT AND PLAN: Patient is an 79yof with PMhx Parkinson Disease and dementia who presented with AMS. # s/p PEG placement # Acute hypercapnic resp failure. Resolved. # Aspiration PNA cont zosyn, blood cx ngtd # JOS: resolved # Rhabdo : resolved # Thrombocytopenia: resolved # h/o HTN # h/o DM cont SSI # AMS: acute metabolic encephalopathy . Improved # h/o dementia # Microcytic anemia # contaminant blood cx # Unstageable sacral decub ulcer , s/p debridment 06/20 ,wound vac application continue #Parkinsonism: cont Sinemet DVT :heparin sq
[2019-06-24] MEDS: RIVASTIGMINE 4.6 MG/24 HOURS TRANSDERMAL PATCH TD SCH (11:26)
[2019-06-24] MEDS: PATIENT'S OWN MEDICATION (NON-FORMULARY) (Rotigotine [Neupro] 1 EACH) TD SCH (11:26)
--- NOTE | 2019-06-24 12:12 | PN ---
Progress Note (short form) - Note Progress Note: s: awake, not answering questions Current Medications Acetaminophen (Ofirmev Injection -) 1,000 mg IVPB Q6H PRN PRN Reason: PAIN LEVEL 6-10 Stop: 06/24/19 20:26 Last Admin: 06/23/19 20:46 Dose: 1,000 mg Albuterol Sulfate (Ventolin 0.083% Nebulizer Soln -) 1 amp NEB Q6H PRN PRN Reason: SHORT OF BREATH/WHEEZING Carbidopa/Levodopa (Sinemet 25/100 -) 2 each PO TID@0700,1200,1900 ON LICENSE OF [facility] Last Admin: 06/24/19 06:35 Dose: 2 each Famotidine (Pepcid) 20 mg PO BID ON [facility] OF [facility] Last Admin: 06/23/19 23:04 Dose: 20 mg Heparin Sodium (Porcine) (Heparin -) 5,000 unit SQ TID [facility] Last Admin: 06/24/19 06:35 Dose: 5,000 unit Piperacillin Sod/Tazobactam (Sod 3.375 gm/ Dextrose) 50 mls @ 100 mls/hr IVPB Q8H-IV [facility]; Protocol Last Admin: 06/24/19 11:22 Dose: 100 mls/hr Dextrose (D5w -) 1,000 mls @ 75 mls/hr IV .[id number] ON LICENSE OF [facility] Last Admin: 06/24/19 04:56 Dose: 75 mls/hr Insulin Aspart (Novolog Vial Sliding Scale -) 1 vial SQ ACHS ON [facility] OF [facility]; Protocol Last Admin: 06/24/19 11:30 Dose: Not Given Non-Formulary Medication (Rotigotine [Neupro]) 1 each TD DAILY [facility] Last Admin: 06/24/19 11:26 Dose: 1 each Rivastigmine (Exelon Patch 4.6mg/24 Hours -) 1 each TD DAILY [facility] Last Admin: 06/24/19 11:26 Dose: 1 each Vital Signs Period Temp Pulse Resp BP Sys/Campbell Pulse Ox Last 24 Hr 97.0 F-98.0 F 72-85 15-18 107-148/61-84 97-100 Constitutional: Yes: No Distress Cardiovascular: Yes: Regular Rate and Rhythm Respiratory: Yes: CTA Bilaterally (No active wheezing, no rales.) Gastrointestinal: Yes: Soft (No tenderness noted at this time.) Edema: No Neurological: Yes: Other (Nonverbal) no jaundice, diaphoresis not agitated Assessment/Plan echo 05/2019 nl LV/RV function, impaired relaxation, elevated filling pressures, RV not well visualized, mild to mod MR, mild mod TR CXR: no congestion/effusions (+ atx) PNA, sepsis, acute respiratory failure 06/28 suspected aspiration: - manage per critical care, ID; - was intubated after suspected aspiration event, now extubated - nl LV function on echo HTN: - stable off meds DM: - manage per primary dementia, parkinson's: - manage per primary - s/p PEG JOS, rhabdo: - renal fxn improved Leukocytosis: -manage per PMD, improving
--- NOTE | 2019-06-24 13:13 | PN ---
Progress Note (short form) - Note Progress Note: PULMONARY s/p PEG placement. Pt nonverbal. No fevers recorded. Vital Signs Period Temp Pulse Resp BP Sys/Campbell Pulse Ox Last 24 Hr 97.0 F-98.0 F 72-85 15-18 107-148/61-84 97-100 Gen: NAD at rest Heart: RRR Lung: scattered rhonchi Abd: soft, nontender Ext: no edema CBC, BMP 06/24/19 08:13 06/24/19 08:13 Active Medications Acetaminophen (Ofirmev Injection -) 1,000 mg IVPB Q6H PRN PRN Reason: PAIN LEVEL 6-10 Stop: 06/24/19 20:26 Last Admin: 06/23/19 20:46 Dose: 1,000 mg Albuterol Sulfate (Ventolin 0.083% Nebulizer Soln -) 1 amp NEB Q6H PRN PRN Reason: SHORT OF BREATH/WHEEZING Carbidopa/Levodopa (Sinemet 25/100 -) 2 each PO TID@0700,1200,1900 [facility] Last Admin: 06/24/19 06:35 Dose: 2 each Famotidine (Pepcid) 20 mg PO BID [facility] Last Admin: 06/23/19 23:04 Dose: 20 mg Heparin Sodium (Porcine) (Heparin -) 5,000 unit SQ TID [facility] Last Admin: 06/24/19 06:35 Dose: 5,000 unit Piperacillin Sod/Tazobactam (Sod 3.375 gm/ Dextrose) 50 mls @ 100 mls/hr IVPB Q8H-IV [facility]; Protocol Last Admin: 06/24/19 11:22 Dose: 100 mls/hr Dextrose (D5w -) 1,000 mls @ 75 mls/hr IV .[id number] [facility] Last Admin: 06/24/19 04:56 Dose: 75 mls/hr Insulin Aspart (Novolog Vial Sliding Scale -) 1 vial SQ ACHS [facility]; Protocol Last Admin: 06/24/19 11:30 Dose: Not Given Non-Formulary Medication (Rotigotine [Neupro]) 1 each TD DAILY [facility] Last Admin: 06/24/19 11:26 Dose: 1 each Rivastigmine (Exelon Patch 4.6mg/24 Hours -) 1 each TD DAILY [facility] Last Admin: 06/24/19 11:26 Dose: 1 each A/P Acute Hypercapneic Respiratory Failure improving Pneumonia likely Aspiration Sepsis Lactic Acidosis Acute Kidney Injury HTN DM Parkinsons Dementia Anemia - continue antibiotics - inhaled bronchodilators - o2 to keep SpO2 >90% - enteral feeds when ok with IR - aspiration precautions - DVT prophylaxis
[2019-06-24] MEDS ORDERED: PT OWN MED DRAWER 7, Y5N ONE ×2 (14:28→21:05)
[2019-06-24] MEDS: FAMOTIDINE 40 MG/5 ML ORAL SUSPENSION PO SCH ×2 (14:32→21:20)
[2019-06-24] MEDS: POTASSIUM CHLORIDE ORAL LIQUID 20 MEQ/15 ML PO SCH ×2 (15:43→21:20)
--- NOTE | 2019-06-24 15:45 | PN ---
Physical Exam: SUBJECTIVE: Patient seen and examined O/N: pt pulled out NGT More alert and spontaneous movements OBJECTIVE: Vital Signs Period Temp Pulse Resp BP Sys/Campbell Pulse Ox Last 24 Hr 97.0 F-98.0 F 72-84 18-18 107-148/61-84 96-98 GENERAL: Lethargic. Mildly responsive to questioning HEAD: NC/AT EYES: extraocular movements tracking movement briefly, sclera anicteric, conjunctiva clear. No ptosis. ENT: Ears normal, nares patent. NGT pulled out, lying at bedside NECK: Trachea midline, full range of motion, supple. LUNGS: Breath sounds equal, mildly coarse BS w/ wheezes bilaterally. Breathing on RA HEART: Regular rate and rhythm, S1, S2 without murmur, rub or gallop. ABDOMEN: Soft, nontender, nondistended, normoactive bowel sounds, no guarding, no rebound. PEG in Left-sided abd. PEG on low-wall suction, with yellow-green output SACRUM: sacral wound with overlying wound VAC, with SS drainage in canister EXTREMITIES: 2+ pulses, warm, well-perfused, no edema. BLE with nonpitting edema. DP2+ b/l NEUROLOGICAL: slightly opening eyes to loud questioning/pain, withdrawing BUE and BLE to painful stimuli. Lifting arms intermittently. Not responding to questioning SKIN: Warm, dry, normal turgor, no rashes or lesions noted Laboratory Results - last 24 hr 06/23/19 06/23/19 06/24/19 16:39 21:17 04:27 WBC RBC Hgb Hct MCV MCH MCHC RDW Plt Count MPV Sodium Potassium Chloride Carbon Dioxide Anion Gap BUN Creatinine Est GFR (CKD-EPI)AfAm Est GFR (CKD-EPI)NonAf POC Glucometer 122 106 92 Random Glucose Calcium Phosphorus Magnesium 06/24/19 06/24/19 06/24/19 05:50 08:13 08:13 WBC 8.9 RBC 3.95 Hgb 9.3 L Hct 28.6 L MCV 72.5 L MCH 23.7 L MCHC 32.6 RDW 17.2 H Plt Count 239 MPV 9.0 Sodium 139 Potassium 3.4 L Chloride 105 Carbon Dioxide 27 Anion Gap 7 L BUN 13.0 Creatinine 0.7 Est GFR (CKD-EPI)AfAm 94.18 Est GFR (CKD-EPI)NonAf 81.26 POC Glucometer 106 Random Glucose 135 H Calcium 8.1 L Phosphorus 2.9 Magnesium 2.4 06/24/19 11:03 WBC RBC Hgb Hct MCV MCH MCHC RDW Plt Count MPV Sodium Potassium Chloride Carbon Dioxide Anion Gap BUN Creatinine Est GFR (CKD-EPI)AfAm Est GFR (CKD-EPI)NonAf POC Glucometer 149 Random Glucose Calcium Phosphorus Magnesium Active Medications Generic Name Dose Route Start Last Admin Trade Name Freq PRN Reason Stop Dose Admin Acetaminophen 1,000 mg 06/23/19 20:26 06/23/19 20:46 Ofirmev Injection - IVPB 06/24/19 20:26 1,000 mg Q6H PRN Administration PAIN LEVEL 6-10 Albuterol Sulfate 1 amp 06/19/19 12:42 Ventolin 0.083% Nebulizer Soln - NEB Q6H PRN SHORT OF BREATH/WHEEZING Carbidopa/Levodopa 2 each 06/19/19 19:00 06/24/19 14:33 Sinemet 25/100 - PO 2 each TID@0700,1200,1900 VASYL Administration Famotidine 20 mg 06/19/19 22:00 06/24/19 14:32 Pepcid PO 20 mg BID VASYL Administration Heparin Sodium (Porcine) 5,000 unit 06/19/19 14:00 06/24/19 14:32 Heparin - SQ 5,000 unit TID VASYL Administration Piperacillin Sod/Tazobactam 50 mls @ 100 mls/hr 06/22/19 18:00 06/24/19 11:22 Sod 3.375 gm/ Dextrose IVPB 100 mls/hr Q8H-IV VASYL Administration Protocol Dextrose 1,000 mls @ 75 mls/hr 06/24/19 04:45 06/24/19 04:56 D5w - IV 75 mls/hr .[id number] VASYL Administration Insulin Aspart 1 vial 06/19/19 16:30 06/24/19 11:30 Novolog Vial Sliding Scale - SQ Not Given ACHS VASYL Protocol Non-Formulary Medication 1 each 06/20/19 10:00 06/24/19 11:26 Rotigotine [Neupro] TD 1 each DAILY VASYL Administration Potassium Chloride 20 meq 06/24/19 15:45 Potassium Chloride Oral Liquid PO 06/24/19 21:46 Q6H VASYL Rivastigmine 1 each 06/20/19 10:00 06/24/19 11:26 Exelon Patch 4.6mg/24 Hours - TD 1 each DAILY VASYL Administration ASSESSMENT/PLAN: 79y/o female with Parkinson's and dementia who presents with AMS and cough x 4 days. At baseline she is non-ambulatory and mental status changes from day to day (some days she is alert and oriented, can speak sentences, other days she does not speak at all). Admitted for AMS. Likely aspiration PNA. Pt was hypoxic to the 80s at ED presentation. Intubated for increased work of breathing. Flu negative. Atelectasis vs infiltrate at Left base. Extubated on 06/09. Repeat CTH on 06/11/19 by Neuro, w/o significant interval change; possibly chronic and superimposed sinusitis of Left maxillary antrum and sphenoid sinus. Daughter expresses desire to avoid PEG, has strong belief that optimization of Parkinson' s and Dementia drugs will help pt resolve AMS. Received zosyn x8d(06/01 -06/13) for possible aspiration PNA. Failing bedside S&S evaluation. TF via NGT. Solumedrol stopped on 06/15/19. IR(Carmencita) consult for possible PEG. Sacral wound worsening which prompted Sacral Decubitus Wound Debridement(Jade, ). Having fevers, possibly from Left-sided infiltrate vs sacral wound infection. Sacral wound has been VAC'd. s/p IR PEG 06/23/19 #acute hypoxic respiratory failure 2/2 multilobar PNA and sepsis -CXR improved post-intubation > CXR(06/08/19): Left base w/ minimal atelectasis, sharp rib angles > CXR(06/21/19): L-base w/ atelectasis vs infiltrate > flu: negative > Echo: normal EF, impaired relaxation, elevated filling pressures, TR, MR -Ventolin TID -solumedrol 20mg IVP BID --> 20mg IVP QD --> stopped -zosyn 3.375g Q8H --for PNA vs infected sacral wound -ID(Valentino) consult: --resumed Zosyn on 06/22/19 -Pulm(Jourdan) consult: --taper medrol --stopped on 06/15/19 #AMS: toxic metabolic encephalopathy vs less likely CVA -CT head negative for acute processes -CT H(06/11/19): no significant change, possible chronic/superimposed Left maxillary sinusitis -urine cx negative -blood cx(06/01/19): Staph coag negative in 1 bottle --likely contaminant -blood cx(06/03/19): NGTD -sputum cx(06/04/19): yeast-like -blood cx(06/22/19): NGTD -dietary following -speech following #inability to tolerate PO --2/2 AMS -NGT feeds(Glucerna) -PEG(Aaron-DiGiorno) evaluation --will defer to IR -IR(Karen) evaluation: placed 06/23/19 --ok to start feeds #sacral decubitus ulcer -surgery(Jacob Estrada) consulted --Reposition every two hours while in bed --Air mattress recommended --Use drawsheets and Trendelenburg when repositioning to reduce friction and shear --Manageincontinence via timely cleansing, use of appropriate incontinence disposables and use of barrier ointment to intact skin --Ensure adequate hydration/nutrition, supplementation per primary team --Ensure off-loading to all bony areas (heels, ankles, hips and tailbone) with Allevyn/Optifoam --Clean open wounds with normal saline and apply bacitracin -Surgery(Jade): --debridement 06/19/19 #leukocytosis -from infection vs steroid use -mild improvement continues -continue monitor #JOS, resolved -nephro following -Cardio following --diovan held --BP stable #anemia of chronic disease -microcytosis but low TIBC, unsaturated IBC, and high ferritin #Parkinson's and dementia -continue Sinimet, modified dose for NG tube, @0700, 1200, 1900 -rivostigmine patch -rotigotine patch #mild hypophosphatemia, resolved #lactic acidosis, resolved #transaminitis, improved DVT ppx SQH GI ppx protonix FEN monitor labs NG feeds: Glucerna through PEG Visit type - Emergency Visit Emergency Visit: No - New Patient This patient is new to me today: No - Critical Care Critical Care patient: No ATTENDING PHYSICIAN STATEMENT I saw and evaluated the patient. I reviewed the resident's note and discussed the case with the resident. I agree with the resident's findings and plan as documented. SUBJECTIVE: OBJECTIVE: ASSESSMENT AND PLAN:
--- NOTE | 2019-06-24 19:28 | PATH ---
Surgical Pathology Report Patient Name: VANDANA NATARAJAN Med. Rec. #: [id number] /Age/Gender: 1940 (Age: 79) / F Account: [id number] Location: [address] [place] [address]/[facility] Taken: 06/19/2019 Received: 06/19/2019 Reported: 06/24/2019 Physicians: Edu Hansen MD Specimen(s) Received SACRAL DECUBITUS ULCER DEBRIDEMENT Clinical History Sacral decubitus ulcer Final Diagnosis SACRAL DECUBITUS ULCER, DEBRIDEMENT: PORTION OF SKIN AND SUBCUTANEOUS TISSUE WITH GANGRENOUS NECROSIS, ULCERATION AND ABSCESS FORMATION. Electronically Signed Tika Kwon M.D. Gross Description Received in formalin labeled "sacral decubitus," is a 10.0 x 8.0 cm holman-espinoza, ovoid, unoriented portion of skin excised to a depth of 2.7 cm. The epidermal surface displays a 9.0 x 6.8 cm central, ulcerated lesion. A community engagement representative section is submitted in one cassette. /06/22/2019 [facility]06/22/2019
[2019-06-25] MEDS ORDERED: PIPERACILLIN/TAZOBACTAM 3.375 GM VIAL IVPB ONE ×3 (01:13→17:08)
[2019-06-25] MEDS ORDERED: DEXTROSE 5%-WATER - 50 ML IVPB ONE ×3 (01:14→17:09)
[2019-06-25] MEDS: PIPERACILLIN/TAZOB 3.375 GM 3.375 GM in DEXTROSE 5%-WATER - 50 ML IVPB SCH ×2 (02:03→09:49)
[2019-06-25] MEDS: HEPARIN NA (PORCINE) 5,000 UNITS/ML 1ML VIAL SQ SCH ×3 (06:27→23:15)
[2019-06-25] MEDS: CARBIDOPA/LEVODOPA 25/100 TABLET (FP) PO SCH ×3 (06:28→18:43)
[2019-06-25] MEDS: INSULIN SLIDING SCALE (NOVOLOG) 1 VIAL SQ SCH ×4 (06:28→23:15)
[2019-06-25 09:14] LABS: HEMATOCRIT 27.3 % (32.4-45.2); HEMOGLOBIN 8.9 GM/dL (10.7-15.3); MCH 23.3 pg (25.7-33.7); MCHC 32.5 g/dl (32.0-36.0); MEAN CELL VOLUME 71.9 fl (80-96); MEAN PLT VOLUME 9.1 fl (7.5-11.1); PLATELET COUNT 240 K/MM3 (134-434); RBC 3.79 M/mm3 (3.60-5.2); RDW 16.7 % (11.6-15.6); WHITE BLOOD COUNT 10.7 K/mm3 (4.0-10.0)
[2019-06-25] MEDS ORDERED: PT OWN MED DRAWER 7, Y5N ONE ×2 (09:34→18:12)
--- NOTE | 2019-06-25 09:40 | PN ---
Teaching Attending Note Name of Resident: Miguel A Stovall ATTENDING PHYSICIAN STATEMENT I saw and evaluated the patient. I reviewed the resident's note and discussed the case with the resident. I agree with the resident's findings and plan as documented. SUBJECTIVE: No new changes , comfortable with no acute distress. Vital Signs Temperature 98.3 F 06/25/19 06:00 Pulse Rate 79 06/25/19 06:00 Respiratory Rate 18 06/25/19 06:00 Blood Pressure 127/73 06/25/19 06:00 O2 Sat by Pulse Oximetry (%) 96 06/24/19 21:00 GENERAL: The patient is awake, with no acute distress. HEAD: Normal with no signs of trauma. EYES: PERRL, extraocular movements intact, sclera anicteric, conjunctiva clear. ENT: Ears normal, oropharynx clear without exudates, moist mucous membranes. NECK: Trachea midline, full range of motion, supple. LUNGS: Breath sounds equal, clear to auscultation bilaterally, no wheezes, no crackles, no accessory muscle use. HEART: Regular rate and rhythm, S1, S2 without murmur, rub or gallop. ABDOMEN: Soft, NT,ND, normoactive bowel sounds, no guarding, no rebound, no hepatosplenomegaly, no masses. EXTREMITIES: 2+ pulses, warm, well-perfused, no edema. NEUROLOGICAL: Cranial nerves II through XII grossly intact. gait not observed. SKIN: Warm, dry, normal turgor, no rashes or lesions noted CBCD WBC 10.7 K/mm3 (4.0-10.0) H 06/25/19 08:09 RBC 3.79 M/mm3 (3.60-5.2) 06/25/19 08:09 Hgb 8.9 GM/dL (10.7-15.3) L 06/25/19 08:09 Hct 27.3 % (32.4-45.2) L 06/25/19 08:09 MCV 71.9 fl (80-96) L 06/25/19 08:09 MCHC 32.5 g/dl (32.0-36.0) 06/25/19 08:09 RDW 16.7 % (11.6-15.6) H 06/25/19 08:09 Plt Count 240 K/MM3 (134-434) 06/25/19 08:09 MPV 9.1 fl (7.5-11.1) 06/25/19 08:09 CMP Sodium 139 mmol/L (136-145) 06/24/19 08:13 Potassium 3.4 mmol/L (3.5-5.1) L 06/24/19 08:13 Chloride 105 mmol/L (98-107) 06/24/19 08:13 Carbon Dioxide 27 mmol/L (21-32) 06/24/19 08:13 Anion Gap 7 MMOL/L (8-16) L 06/24/19 08:13 BUN 13.0 mg/dL (7-18) 06/24/19 08:13 Creatinine 0.7 mg/dL (0.55-1.3) 06/24/19 08:13 Random Glucose 135 mg/dL (74-106) H 06/24/19 08:13 Calcium 8.1 mg/dL (8.5-10.1) L 06/24/19 08:13 Total Bilirubin 0.8 mg/dL (0.2-1) 06/19/19 07:57 AST 11 U/L (15-37) L 06/19/19 07:57 ALT 7 U/L (13-61) L 06/19/19 07:57 Alkaline Phosphatase 75 U/L (45-117) 06/19/19 07:57 Total Protein 6.7 g/dl (6.4-8.2) 06/19/19 07:57 Albumin 2.8 g/dl (3.4-5.0) L 06/19/19 07:57 CARDIAC ENZYMES Creatine Kinase 281 U/L (26-192) H 06/04/19 06:30 Troponin I < 0.02 ng/ml (0.00-0.05) 06/01/19 04:07 Current Medications Generic Name Dose Route Start Last Admin Trade Name Freq PRN Reason Stop Dose Admin Albuterol Sulfate 1 amp 06/19/19 12:42 Ventolin 0.083% Nebulizer Soln - NEB Q6H PRN SHORT OF BREATH/WHEEZING Carbidopa/Levodopa 2 each 06/19/19 19:00 06/25/19 06:28 Sinemet 25/100 - PO 2 each TID@0700,1200,1900 VASYL Administration Famotidine 20 mg 06/19/19 22:00 06/24/19 21:20 Pepcid PO 20 mg BID VASYL Administration Heparin Sodium (Porcine) 5,000 unit 06/19/19 14:00 06/25/19 06:27 Heparin - SQ 5,000 unit TID VASYL Administration Piperacillin Sod/Tazobactam 50 mls @ 100 mls/hr 06/22/19 18:00 06/25/19 02:03 Sod 3.375 gm/ Dextrose IVPB 100 mls/hr Q8H-IV VASYL Administration Protocol Insulin Aspart 1 vial 06/19/19 16:30 06/25/19 06:28 Novolog Vial Sliding Scale - SQ Not Given ACHS VASYL Protocol Non-Formulary Medication 1 each 06/20/19 10:00 06/24/19 11:26 Rotigotine [Neupro] TD 1 each DAILY VASYL Administration Rivastigmine 1 each 06/20/19 10:00 06/24/19 11:26 Exelon Patch 4.6mg/24 Hours - TD 1 each DAILY VASYL Administration Home Medications Medication Instructions Recorded Ca/D3/Mag Ox/Zinc/Stores Clerk/Ketan/Bor 1 each PO HS 04/13/18 [Calcium 600-D3 Plus Caplet] Carbidopa/Levodopa [Carbidopa-Levo 1 each PO TID 04/13/18 ER 50-200 Tab] Aspirin 81 mg PO DAILY 06/01/19 Melatonin 5 mg PO HS 06/01/19 Olanzapine [Zyprexa -] 7.5 mg PO DAILY 06/01/19 Omeprazole 20 mg PO DAILY 06/01/19 Rivastigmine [Exelon Patch 1 each TD DAILY 06/01/19 4.6MG/24 Hours] Rotigotine [Neupro] 1 each TD DAILY 06/01/19 Microbiology 06/22/19 11:40 Blood - Peripheral Venous Blood Culture - Preliminary NO GROWTH OBTAINED AFTER 24 HOURS, INCUBATION TO CONTINUE FOR 4 DAYS. 06/22/19 11:35 Blood - Peripheral Venous Blood Culture - Preliminary NO GROWTH OBTAINED AFTER 24 HOURS, INCUBATION TO CONTINUE FOR 4 DAYS. 06/03/19 11:40 Blood - Peripheral Venous Blood Culture - Final NO GROWTH AFTER 5 DAYS INCUBATION 06/03/19 12:00 Blood - Peripheral Venous Blood Culture - Final NO GROWTH AFTER 5 DAYS INCUBATION 06/04/19 06:20 Sputum - Oropharynx Suctioned Sputum Gram Stain - Final 06/04/19 06:20 Sputum - Oropharynx Suctioned Sputum Sputum Culture - Final Yeast Like Organism 06/01/19 00:00 Blood - Peripheral Venous Blood Culture - Final NO GROWTH AFTER 5 DAYS INCUBATION 06/01/19 00:00 Blood - Peripheral Venous Blood Culture - Final Staph Capitis Subsp Ureolyticu 06/01/19 03:00 Urine For Antigen Detection Legionella Antigen - Final 06/01/19 03:00 Urine For Antigen Detection Streptococcus pneumoniae Antigen (M - Final 06/01/19 01:20 Urine - Urine - Catheterized Urine Culture - Final NO GROWTH OBTAINED ASSESSMENT AND PLAN: Patient is an 79yof with PMhx Parkinson Disease and dementia who presented with AMS. # s/p PEG placement # Acute hypercapnic resp failure. Resolved. # Aspiration PNA cont zosyn, blood cx ngtd # JOS: resolved # Rhabdo : resolved # Thrombocytopenia: resolved # h/o HTN # h/o DM cont SSI # AMS: acute metabolic encephalopathy . Improved # h/o dementia # Microcytic anemia # contaminant blood cx # Unstageable sacral decub ulcer , s/p debridment 06/20 ,wound vac application continue #Parkinsonism: cont Sinemet DVT :heparin sq waiting for SW
[2019-06-25 09:49] LABS: CALCIUM 8.3 mg/dL (8.5-10.1); CREATININE 0.7 mg/dL (0.55-1.3); MAGNESIUM 2.3 mg/dL (1.8-2.4); POTASSIUM 4.3 mmol/L (3.5-5.1)
--- NOTE | 2019-06-25 11:17 | PN ---
Progress Note (short form) - Note Progress Note: PULMONARY Pt nonverbal. No fevers recorded. Tolerating feeds. Vital Signs Period Temp Pulse Resp BP Sys/Campbell Pulse Ox Last 24 Hr 97.3 F-99.3 F 71-82 18-18 98-135/47-74 96 Gen: NAD at rest Heart: RRR Lung: scattered rhonchi Abd: soft, nontender Ext: no edema CBC, BMP 06/25/19 08:09 06/25/19 08:09 Active Medications Albuterol Sulfate (Ventolin 0.083% Nebulizer Soln -) 1 amp NEB Q6H PRN PRN Reason: SHORT OF BREATH/WHEEZING Carbidopa/Levodopa (Sinemet 25/100 -) 2 each PO TID@0700,1200,1900 [facility] Last Admin: 06/25/19 06:28 Dose: 2 each Famotidine (Pepcid) 20 mg PO BID VASYL Last Admin: 06/24/19 21:20 Dose: 20 mg Heparin Sodium (Porcine) (Heparin -) 5,000 unit SQ TID VASYL Last Admin: 06/25/19 06:27 Dose: 5,000 unit Piperacillin Sod/Tazobactam (Sod 3.375 gm/ Dextrose) 50 mls @ 100 mls/hr IVPB Q8H-IV VASYL; Protocol Last Admin: 06/25/19 09:49 Dose: 100 mls/hr Insulin Aspart (Novolog Vial Sliding Scale -) 1 vial SQ ACHS VASYL; Protocol Last Admin: 06/25/19 06:28 Dose: Not Given Non-Formulary Medication (Rotigotine [Neupro]) 1 each TD DAILY VASYL Last Admin: 06/24/19 11:26 Dose: 1 each Rivastigmine (Exelon Patch 4.6mg/24 Hours -) 1 each TD DAILY VASYL Last Admin: 06/24/19 11:26 Dose: 1 each A/P Acute Hypercapneic Respiratory Failure improving Pneumonia likely Aspiration Sepsis Lactic Acidosis Acute Kidney Injury HTN DM Parkinsons Dementia Anemia - continue antibiotics - inhaled bronchodilators - o2 to keep SpO2 >90% - enteral feeds - aspiration precautions - DVT prophylaxis
[2019-06-25] MEDS: RIVASTIGMINE 4.6 MG/24 HOURS TRANSDERMAL PATCH TD SCH (11:34)
[2019-06-25] MEDS: FAMOTIDINE 40 MG/5 ML ORAL SUSPENSION PO SCH ×2 (11:34→23:15)
[2019-06-25] MEDS: PATIENT'S OWN MEDICATION (NON-FORMULARY) (Rotigotine [Neupro] 1 EACH) TD SCH ×2 (11:43→17:51)
[2019-06-25] MEDS ORDERED: ACETAMINOPHEN 650 MG/20.3 ML ORAL SOLUTION (CUPS) PO ONE (14:34)
--- NOTE | 2019-06-25 16:04 | PN ---
Progress Note (short form) - Note Progress Note: s: awake, not answering questions Current Medications Albuterol Sulfate (Ventolin 0.083% Nebulizer Soln -) 1 amp NEB Q6H PRN PRN Reason: SHORT OF BREATH/WHEEZING Carbidopa/Levodopa (Sinemet 25/100 -) 2 each PO TID@0700,1200,1900 [facility] Last Admin: 06/25/19 11:46 Dose: 2 each Famotidine (Pepcid) 20 mg PO BID VASYL Last Admin: 06/25/19 11:34 Dose: 20 mg Heparin Sodium (Porcine) (Heparin -) 5,000 unit SQ TID VASYL Last Admin: 06/25/19 13:56 Dose: 5,000 unit Piperacillin Sod/Tazobactam (Sod 3.375 gm/ Dextrose) 50 mls @ 100 mls/hr IVPB Q8H-IV VASYL; Protocol Last Admin: 06/25/19 09:49 Dose: 100 mls/hr Insulin Aspart (Novolog Vial Sliding Scale -) 1 vial SQ ACHS VASYL; Protocol Last Admin: 06/25/19 11:44 Dose: Not Given Non-Formulary Medication (Rotigotine [Neupro]) 1 each TD DAILY VASYL Last Admin: 06/25/19 11:43 Dose: Not Given Rivastigmine (Exelon Patch 4.6mg/24 Hours -) 1 each TD DAILY VASYL Last Admin: 06/25/19 11:34 Dose: 1 each Vital Signs Period Temp Pulse Resp BP Sys/Campbell Pulse Ox Last 24 Hr 97.3 F-99.4 F 71-89 18-18 98-135/47-73 96-98 Constitutional: Yes: No Distress Cardiovascular: Yes: Regular Rate and Rhythm Respiratory: Yes: CTA Bilaterally (No active wheezing, no rales.) Gastrointestinal: Yes: Soft (No tenderness noted at this time.) Edema: No Neurological: Yes: Other (Nonverbal) no jaundice, diaphoresis not agitated Assessment/Plan echo 05/2019 nl LV/RV function, impaired relaxation, elevated filling pressures, RV not well visualized, mild to mod MR, mild mod TR CXR: no congestion/effusions (+ atx) PNA, sepsis, acute respiratory failure 2/2 suspected aspiration: - was intubated after suspected aspiration event, now extubated - manage per primary, ID - nl LV function on echo HTN: - stable off meds DM: - manage per primary dementia, parkinson's: - manage per primary - s/p PEG JOS, rhabdo: - renal fxn improved Leukocytosis: -manage per PMD, improving
--- NOTE | 2019-06-25 17:11 | PN ---
Progress Note, Physician History of Present Illness: AWAKE, NOT VERBALLY RESPONSIVE BREATHING NON LABORED AFEBRILE ) - Current Medication List Current Medications: Active Medications Albuterol Sulfate (Ventolin 0.083% Nebulizer Soln -) 1 amp NEB Q6H PRN PRN Reason: SHORT OF BREATH/WHEEZING Carbidopa/Levodopa (Sinemet 25/100 -) 2 each PO TID@0700,1200,1900 [facility] Last Admin: 06/25/19 11:46 Dose: 2 each Famotidine (Pepcid) 20 mg PO BID VASYL Last Admin: 06/25/19 11:34 Dose: 20 mg Heparin Sodium (Porcine) (Heparin -) 5,000 unit SQ TID VASYL Last Admin: 06/25/19 13:56 Dose: 5,000 unit Piperacillin Sod/Tazobactam (Sod 3.375 gm/ Dextrose) 50 mls @ 100 mls/hr IVPB Q8H-IV VASYL; Protocol Last Admin: 06/25/19 09:49 Dose: 100 mls/hr Insulin Aspart (Novolog Vial Sliding Scale -) 1 vial SQ ACHS VASYL; Protocol Last Admin: 06/25/19 11:44 Dose: Not Given Non-Formulary Medication (Rotigotine [Neupro]) 1 each TD DAILY VASYL Last Admin: 06/25/19 11:43 Dose: Not Given Rivastigmine (Exelon Patch 4.6mg/24 Hours -) 1 each TD DAILY VASYL Last Admin: 06/25/19 11:34 Dose: 1 each - Objective Vital Signs: Vital Signs Temperature 99.4 F 06/25/19 14:00 Pulse Rate 89 06/25/19 14:00 Respiratory Rate 18 06/25/19 14:00 Blood Pressure 108/57 L 06/25/19 14:00 O2 Sat by Pulse Oximetry (%) 98 06/25/19 10:00 Constitutional: Yes: No Distress Eyes: Yes: Conjunctiva Clear Cardiovascular: Yes: Regular Rate and Rhythm, S1, S2 Respiratory: Yes: CTA Bilaterally Gastrointestinal: Yes: Normal Bowel Sounds, Soft. No: Tenderness Labs: CBC, BMP 06/25/19 08:09 06/25/19 08:09 INR, PTT INR 1.15 (0.83-1.09) H 06/19/19 07:57 Assessment/Plan RESP FAILURE ? RECURRENT PNEUMONIA SACRAL DECUBITUS ULCER LEUKOCYTOSIS RENAL INSUFFICIENCY RESOLVED PARKINSONISM/OBS SUBSTITUTE AUGMENTIN VIA GT BID X 7D
--- NOTE | 2019-06-25 17:15 | PN ---
Physical Exam: SUBJECTIVE: Patient seen and examined O/N: wound vac soiled, required re-enforcement. Receivingg TF without issues Moaning softly with painful stimuli OBJECTIVE: Vital Signs Period Temp Pulse Resp BP Sys/Campbell Pulse Ox Last 24 Hr 97.3 F-99.4 F 71-89 18-18 98-135/47-73 96-98 GENERAL: Lethargic. Soft moaning to questioning HEAD: NC/AT EYES: extraocular movements tracking movement briefly, sclera anicteric, conjunctiva clear. No ptosis. ENT: Ears normal, nares patent. NECK: Trachea midline, full range of motion, supple. LUNGS: Breath sounds equal, mildly coarse BS w/ wheezes bilaterally. Breathing on RA HEART: Regular rate and rhythm, S1, S2 without murmur, rub or gallop. ABDOMEN: Soft, nontender, nondistended, normoactive bowel sounds, no guarding, no rebound. PEG in Left-sided abd. TF running. SACRUM: sacral wound with overlying wound VAC, with SS drainage in canister EXTREMITIES: 2+ pulses, warm, well-perfused, no edema. BLE with nonpitting edema. DP2+ b/l NEUROLOGICAL: slightly opening eyes to loud questioning/pain, withdrawing BUE and BLE to painful stimuli. Lifting arms intermittently. Not responding to questioning SKIN: Warm, dry, normal turgor, no rashes or lesions noted Laboratory Results - last 24 hr 06/24/19 06/25/19 06/25/19 21:12 06:25 08:09 WBC 10.7 H RBC 3.79 Hgb 8.9 L Hct 27.3 L MCV 71.9 L MCH 23.3 L MCHC 32.5 RDW 16.7 H Plt Count 240 MPV 9.1 Sodium Potassium Chloride Carbon Dioxide Anion Gap BUN Creatinine Est GFR (CKD-EPI)AfAm Est GFR (CKD-EPI)NonAf POC Glucometer 90 130 Random Glucose Calcium Phosphorus Magnesium 06/25/19 06/25/19 08:09 11:40 WBC RBC Hgb Hct MCV MCH MCHC RDW Plt Count MPV Sodium 134 L Potassium 4.3 Chloride 102 Carbon Dioxide 23 Anion Gap 10 BUN 13.0 Creatinine 0.7 Est GFR (CKD-EPI)AfAm 94.18 Est GFR (CKD-EPI)NonAf 81.26 POC Glucometer 137 Random Glucose 132 H Calcium 8.3 L Phosphorus 2.0 L Magnesium 2.3 Active Medications Generic Name Dose Route Start Last Admin Trade Name Freq PRN Reason Stop Dose Admin Albuterol Sulfate 1 amp 06/19/19 12:42 Ventolin 0.083% Nebulizer Soln - NEB Q6H PRN SHORT OF BREATH/WHEEZING Carbidopa/Levodopa 2 each 06/19/19 19:00 06/25/19 11:46 Sinemet 25/100 - PO 2 each TID@0700,1200,1900 [facility] Administration Famotidine 20 mg 06/19/19 22:00 06/25/19 11:34 Pepcid PO 20 mg BID [facility] Administration Heparin Sodium (Porcine) 5,000 unit 06/19/19 14:00 06/25/19 13:56 Heparin - SQ 5,000 unit TID [facility] Administration Piperacillin Sod/Tazobactam 50 mls @ 100 mls/hr 06/22/19 18:00 06/25/19 09:49 Sod 3.375 gm/ Dextrose IVPB 100 mls/hr Q8H-IV [facility] Administration Protocol Insulin Aspart 1 vial 06/19/19 16:30 06/25/19 11:44 Novolog Vial Sliding Scale - SQ Not Given ACHS [facility] Protocol Non-Formulary Medication 1 each 06/20/19 10:00 06/25/19 11:43 Rotigotine [Neupro] TD Not Given DAILY [facility] Rivastigmine 1 each 06/20/19 10:00 06/25/19 11:34 Exelon Patch 4.6mg/24 Hours - TD 1 each DAILY [facility] Administration ASSESSMENT/PLAN: 79y/o female with Parkinson's and dementia who presents with AMS and cough x 4 days. At baseline she is non-ambulatory and mental status changes from day to day (some days she is alert and oriented, can speak sentences, other days she does not speak at all). Admitted for AMS. Likely aspiration PNA. Pt was hypoxic to the 80s at ED presentation. Intubated for increased work of breathing. Flu negative. Atelectasis vs infiltrate at Left base. Extubated on 06/09. Repeat CTH on 06/11/19 by Neuro, w/o significant interval change; possibly chronic and superimposed sinusitis of Left maxillary antrum and sphenoid sinus. Daughter expresses desire to avoid PEG, has strong belief that optimization of Parkinson' s and Dementia drugs will help pt resolve AMS. Received zosyn x8d(06/01 -06/13) for possible aspiration PNA. Failing bedside S&S evaluation. TF via NGT. Solumedrol stopped on 06/15/19. IR(Carmencita) consult for possible PEG. Sacral wound worsening which prompted Sacral Decubitus Wound Debridement(Jade, ). Having fevers, possibly from Left-sided infiltrate vs sacral wound infection. Sacral wound has been VAC'd. s/p IR PEG 06/23/19 #acute hypoxic respiratory failure 2/2 multilobar PNA and sepsis -CXR improved post-intubation > CXR(06/08/19): Left base w/ minimal atelectasis, sharp rib angles > CXR(06/21/19): L-base w/ atelectasis vs infiltrate > flu: negative > Echo: normal EF, impaired relaxation, elevated filling pressures, TR, MR -Ventolin TID -solumedrol 20mg IVP BID --> 20mg IVP QD --> stopped -zosyn 3.375g Q8H --for PNA vs infected sacral wound -ID(Valentino) consult: --resumed Zosyn on 06/22/19 --Augmentin PEG BID, x7d -Pulm(Jourdan) consult: --taper medrol --stopped on 06/15/19 #AMS: toxic metabolic encephalopathy vs less likely CVA -CT head negative for acute processes -CT H(06/11/19): no significant change, possible chronic/superimposed Left maxillary sinusitis -urine cx negative -blood cx(06/01/19): Staph coag negative in 1 bottle --likely contaminant -blood cx(06/03/19): NGTD -sputum cx(06/04/19): yeast-like -blood cx(06/22/19): NGTD -dietary following -speech following #inability to tolerate PO --2/2 AMS -NGT feeds(Glucerna) -PEG(Aaron-DiGiorno) evaluation --will defer to IR -IR(Karen) evaluation: placed 06/23/19 --ok for tube feeds #sacral decubitus ulcer -surgery(Jacob Estrada) consulted --Reposition every two hours while in bed --Air mattress recommended --Use drawsheets and Trendelenburg when repositioning to reduce friction and shear --Manageincontinence via timely cleansing, use of appropriate incontinence disposables and use of barrier ointment to intact skin --Ensure adequate hydration/nutrition, supplementation per primary team --Ensure off-loading to all bony areas (heels, ankles, hips and tailbone) with Allevyn/Optifoam --Clean open wounds with normal saline and apply bacitracin -Surgery(Jade): --debridement 06/19/19 #leukocytosis -from infection vs steroid use -mild improvement continues -continue monitor #JOS, resolved -nephro following -Cardio following --diovan held --BP stable #anemia of chronic disease -microcytosis but low TIBC, unsaturated IBC, and high ferritin #Parkinson's and dementia -continue Sinimet, modified dose for NG tube, @0700, 1200, 1900 -rivostigmine patch -rotigotine patch #mild hypophosphatemia, resolved #lactic acidosis, resolved #transaminitis, improved DVT ppx SQH GI ppx protonix FEN monitor labs NG feeds: Glucerna through PEG Visit type - Emergency Visit Emergency Visit: No - New Patient This patient is new to me today: No - Critical Care Critical Care patient: No ATTENDING PHYSICIAN STATEMENT I saw and evaluated the patient. I reviewed the resident's note and discussed the case with the resident. I agree with the resident's findings and plan as documented. SUBJECTIVE: OBJECTIVE: ASSESSMENT AND PLAN:
[2019-06-25] MEDS ORDERED: AMOX TR/POTASSIUM CLAVULANATE 600 MG/5 ML PO SCH (17:30)
[2019-06-25] MEDS: AMOX TR/POTASSIUM CLAVULANATE 600 MG/5 ML PEG SCH (18:42)
[2019-06-26] MEDS: HEPARIN NA (PORCINE) 5,000 UNITS/ML 1ML VIAL SQ SCH ×3 (06:22→23:04)
[2019-06-26] MEDS: CARBIDOPA/LEVODOPA 25/100 TABLET (FP) PO SCH ×3 (06:22→18:25)
[2019-06-26] MEDS: INSULIN SLIDING SCALE (NOVOLOG) 1 VIAL SQ SCH ×5 (06:22→23:57)
--- NOTE | 2019-06-26 08:34 | PN ---
Progress Note (short form) - Note Progress Note: Neurology CHIEF COMPLAINT: AMS PCP: None HISTORY OF PRESENT ILLNESS: Ms. Prescott is an 79 year old female with PMH of Parkinson Disease and dementia who was BIBEMS with AMS x4 days at time of admission. Daughter was at bedside and that time and provided history. 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 At baseline she is non-ambulatory and mental status changes from day to day (some days she is alert and oriented, can speak sentences, other days she does not speak at all). Pt has had a productive cough of yellow sputum for 4 days before day of admission and has become increasingly confused and somnolent. Decreased appetite, unable to eat or drink anything. On day of admission, she was not responding at all and had a low grade fever. Daughter stated that pt has not complained of any symptoms (chest pain, abd pain , SOB, urinary complaints). On arrival to ED, pt was hypoxic in the 80s. Patient consulted for altered mental status. Ct of head reviewed and showed no evidence of a focal intracranial lesion or hemorrhage completed on 06/01 at the time of admission. Patient downgraded from ICU and currently on telemetry floor. Patient status post PEG tube placement and discussed with nurse who indicated she has been tolerating the PEG feeds.. Possibly for discharge today Active Medications Albuterol Sulfate (Ventolin 0.083% Nebulizer Soln -) 1 amp NEB Q6H PRN PRN Reason: SHORT OF BREATH/WHEEZING Amoxicillin/Clavulanate Potassium (Augmentin 600 Mg/5 Ml Oral Suspension -) 600 mg PEG BID@0800,1730 [facility] Stop: 07/02/19 17:29 Last Admin: 06/25/19 18:42 Dose: 5 ml Carbidopa/Levodopa (Sinemet 25/100 -) 2 each PO TID@0700,1200,1900 [facility] Last Admin: 06/26/19 06:22 Dose: 2 each Famotidine (Pepcid) 20 mg PO BID [facility] Last Admin: 06/25/19 23:15 Dose: 20 mg Heparin Sodium (Porcine) (Heparin -) 5,000 unit SQ TID [facility] Last Admin: 06/26/19 06:22 Dose: 5,000 unit Insulin Aspart (Novolog Vial Sliding Scale -) 1 vial SQ ACHS [facility]; Protocol Last Admin: 06/26/19 06:22 Dose: Not Given Non-Formulary Medication (Rotigotine [Neupro]) 1 each TD DAILY [facility] Last Admin: 06/25/19 17:51 Dose: 1 each Rivastigmine (Exelon Patch 4.6mg/24 Hours -) 1 each TD DAILY [facility] Last Admin: 06/25/19 11:34 Dose: 1 each PHYSICAL EXAMINATION Vital Signs Period Temp Pulse Resp BP Sys/Campbell Pulse Ox Last 24 Hr 97.8 F-99.4 F 74-94 18-20 108-139/57-80 98-98 GENERAL: Somnolent, slightly responsive to sternal rub. HEAD: Normal with no signs of trauma. EYES: Pupils equal, round and reactive to light, extraocular movements intact, sclera anicteric, conjunctiva clear. No lid lag. EARS, NOSE, THROAT: Ears normal, nares patent, oropharynx clear without exudates. Dry mucous membranes. NECK: Normal range of motion, supple without lymphadenopathy, JVD, or masses. LUNGS: Inspiratory and expiratory wheezes throughout, accessory muscle use. HEART: Regular rate and rhythm, normal S1 and S2 without murmur, rub or gallop. ABDOMEN: Soft, nontender, not distended, normoactive bowel sounds, no guarding, no rebound, no masses. No hepatomegaly or splenomegaly. MUSCULOSKELETAL: Normal range of motion at all joints. No bony deformities or tenderness. No CVA tenderness. UPPER EXTREMITIES: 2+ pulses, warm, well-perfused. No cyanosis. No clubbing. No peripheral edema. LOWER EXTREMITIES: 2+ pulses, warm, well-perfused. No calf tenderness. No peripheral edema. NEUROLOGICAL: Unable to assess 2/2 mental status. PSYCHIATRIC: Cooperative. Good eye contact. Appropriate mood and affect. SKIN: Warm, dry, normal turgor, normal capillary refill. Sacral decubitus ulcer with sloughing skin and erythema. CBCD WBC 10.7 K/mm3 (4.0-10.0) H 06/25/19 08:09 RBC 3.79 M/mm3 (3.60-5.2) 06/25/19 08:09 Hgb 8.9 GM/dL (10.7-15.3) L 06/25/19 08:09 Hct 27.3 % (32.4-45.2) L 06/25/19 08:09 MCV 71.9 fl (80-96) L 06/25/19 08:09 MCHC 32.5 g/dl (32.0-36.0) 06/25/19 08:09 RDW 16.7 % (11.6-15.6) H 06/25/19 08:09 Plt Count 240 K/MM3 (134-434) 06/25/19 08:09 MPV 9.1 fl (7.5-11.1) 06/25/19 08:09 CMP Sodium 134 mmol/L (136-145) L 06/25/19 08:09 Potassium 4.3 mmol/L (3.5-5.1) 06/25/19 08:09 Chloride 102 mmol/L (98-107) 06/25/19 08:09 Carbon Dioxide 23 mmol/L (21-32) 06/25/19 08:09 Anion Gap 10 MMOL/L (8-16) 06/25/19 08:09 BUN 13.0 mg/dL (7-18) 06/25/19 08:09 Creatinine 0.7 mg/dL (0.55-1.3) 06/25/19 08:09 Random Glucose 132 mg/dL (74-106) H 06/25/19 08:09 Calcium 8.3 mg/dL (8.5-10.1) L 06/25/19 08:09 Total Bilirubin 0.8 mg/dL (0.2-1) 06/19/19 07:57 AST 11 U/L (15-37) L 06/19/19 07:57 ALT 7 U/L (13-61) L 06/19/19 07:57 Alkaline Phosphatase 75 U/L (45-117) 06/19/19 07:57 Total Protein 6.7 g/dl (6.4-8.2) 06/19/19 07:57 Albumin 2.8 g/dl (3.4-5.0) L 06/19/19 07:57 CARDIAC ENZYMES Creatine Kinase 281 U/L (26-192) H 06/04/19 06:30 Troponin I < 0.02 ng/ml (0.00-0.05) 06/01/19 04:07 ASSESSMENT/PLAN: Ms. Prescott is an 79 year old female with PMH of Parkinson Disease and dementia who was BIBEMS with AMS x4 days at time of admission. Daughter was at bedside and that time and provided history. 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 At baseline she is non-ambulatory and mental status changes from day to day (some days she is alert and oriented, can speak sentences, other days she does not speak at all). Pt has had a productive cough of yellow sputum for 4 days before day of admission and has become increasingly confused and somnolent. Decreased appetite, unable to eat or drink anything. On day of admission, she was not responding at all and had a low grade fever. Daughter stated that pt has not complained of any symptoms (chest pain, abd pain , SOB, urinary complaints). On arrival to ED, pt was hypoxic in the 80s. Patient consulted for altered mental status. Ct of head reviewed and showed no evidence of a focal intracranial lesion or hemorrhage completed on 06/01 at the time of admission. Patient downgraded from ICU and currently on telemetry floor. Patient status post PEG tube placement and discussed with nurse who indicated she has been tolerating the PEG feeds.. Possibly for discharge today
--- NOTE | 2019-06-26 09:21 | PN ---
Teaching Attending Note Name of Resident: Rodríguez Stovall ATTENDING PHYSICIAN STATEMENT I saw and evaluated the patient. I reviewed the resident's note and discussed the case with the resident. I agree with the resident's findings and plan as documented. SUBJECTIVE: Patient is comfortable with no acute distress. No new changes Vital Signs Temperature 98.3 F 06/26/19 06:06 Pulse Rate 81 06/26/19 06:06 Respiratory Rate 18 06/26/19 06:06 Blood Pressure 126/73 06/26/19 06:06 O2 Sat by Pulse Oximetry (%) 98 06/25/19 22:00 GENERAL: The patient is awake, with no acute distress. HEAD: Normal with no signs of trauma. EYES: PERRL, extraocular movements intact, sclera anicteric, conjunctiva clear. ENT: Ears normal, oropharynx clear without exudates, moist mucous membranes. NECK: Trachea midline, full range of motion, supple. LUNGS: Breath sounds equal, clear to auscultation bilaterally, no wheezes, no crackles, no accessory muscle use. HEART: Regular rate and rhythm, S1, S2 without murmur, rub or gallop. ABDOMEN: Soft, NT,ND, normoactive bowel sounds, no guarding, no rebound, no hepatosplenomegaly, no masses. EXTREMITIES: 2+ pulses, warm, well-perfused, no edema. NEUROLOGICAL: Cranial nerves II through XII grossly intact. gait not observed. SKIN: Warm, dry, normal turgor, no rashes or lesions noted CBCD WBC 10.7 K/mm3 (4.0-10.0) H 06/25/19 08:09 RBC 3.79 M/mm3 (3.60-5.2) 06/25/19 08:09 Hgb 8.9 GM/dL (10.7-15.3) L 06/25/19 08:09 Hct 27.3 % (32.4-45.2) L 06/25/19 08:09 MCV 71.9 fl (80-96) L 06/25/19 08:09 MCHC 32.5 g/dl (32.0-36.0) 06/25/19 08:09 RDW 16.7 % (11.6-15.6) H 06/25/19 08:09 Plt Count 240 K/MM3 (134-434) 06/25/19 08:09 MPV 9.1 fl (7.5-11.1) 06/25/19 08:09 CMP Sodium 134 mmol/L (136-145) L 06/25/19 08:09 Potassium 4.3 mmol/L (3.5-5.1) 06/25/19 08:09 Chloride 102 mmol/L (98-107) 06/25/19 08:09 Carbon Dioxide 23 mmol/L (21-32) 06/25/19 08:09 Anion Gap 10 MMOL/L (8-16) 06/25/19 08:09 BUN 13.0 mg/dL (7-18) 06/25/19 08:09 Creatinine 0.7 mg/dL (0.55-1.3) 06/25/19 08:09 Random Glucose 132 mg/dL (74-106) H 06/25/19 08:09 Calcium 8.3 mg/dL (8.5-10.1) L 06/25/19 08:09 Total Bilirubin 0.8 mg/dL (0.2-1) 06/19/19 07:57 AST 11 U/L (15-37) L 06/19/19 07:57 ALT 7 U/L (13-61) L 06/19/19 07:57 Alkaline Phosphatase 75 U/L (45-117) 06/19/19 07:57 Total Protein 6.7 g/dl (6.4-8.2) 06/19/19 07:57 Albumin 2.8 g/dl (3.4-5.0) L 06/19/19 07:57 CARDIAC ENZYMES Creatine Kinase 281 U/L (26-192) H 06/04/19 06:30 Troponin I < 0.02 ng/ml (0.00-0.05) 06/01/19 04:07 Home Medications Medication Instructions Recorded Ca/D3/Mag Ox/Zinc/Office Aide/Ketan/Bor 1 each PO HS 04/13/18 [Calcium 600-D3 Plus Caplet] Carbidopa/Levodopa [Carbidopa-Levo 1 each PO TID 04/13/18 ER 50-200 Tab] Aspirin 81 mg PO DAILY 06/01/19 Melatonin 5 mg PO HS 06/01/19 Olanzapine [Zyprexa -] 7.5 mg PO DAILY 06/01/19 Omeprazole 20 mg PO DAILY 06/01/19 Rivastigmine [Exelon Patch 1 each TD DAILY 06/01/19 4.6MG/24 Hours] Rotigotine [Neupro] 1 each TD DAILY 06/01/19 Microbiology 06/22/19 11:40 Blood - Peripheral Venous Blood Culture - Preliminary NO GROWTH OBTAINED AFTER 72 HOURS, INCUBATION TO CONTINUE FOR 2 DAYS. 06/22/19 11:35 Blood - Peripheral Venous Blood Culture - Preliminary NO GROWTH OBTAINED AFTER 72 HOURS, INCUBATION TO CONTINUE FOR 2 DAYS. 06/03/19 11:40 Blood - Peripheral Venous Blood Culture - Final NO GROWTH AFTER 5 DAYS INCUBATION 06/03/19 12:00 Blood - Peripheral Venous Blood Culture - Final NO GROWTH AFTER 5 DAYS INCUBATION 06/04/19 06:20 Sputum - Oropharynx Suctioned Sputum Gram Stain - Final 06/04/19 06:20 Sputum - Oropharynx Suctioned Sputum Sputum Culture - Final Yeast Like Organism 06/01/19 00:00 Blood - Peripheral Venous Blood Culture - Final NO GROWTH AFTER 5 DAYS INCUBATION 06/01/19 00:00 Blood - Peripheral Venous Blood Culture - Final Staph Capitis Subsp Ureolyticu 06/01/19 03:00 Urine For Antigen Detection Legionella Antigen - Final 06/01/19 03:00 Urine For Antigen Detection Streptococcus pneumoniae Antigen (M - Final 06/01/19 01:20 Urine - Urine - Catheterized Urine Culture - Final NO GROWTH OBTAINED ASSESSMENT AND PLAN: Patient is an 79yof with PMhx Parkinson Disease and dementia who presented with AMS. # s/p PEG placement # Acute hypercapnic resp failure. Resolved. # Aspiration PNA cont zosyn, blood cx ngtd # JOS: resolved # Rhabdo : resolved # Thrombocytopenia: resolved # h/o HTN # h/o DM cont SSI # AMS: acute metabolic encephalopathy . Improved # h/o dementia # Microcytic anemia # contaminant blood cx # Unstageable sacral decub ulcer , s/p debridment 06/20 ,wound vac application continue #Parkinsonism: cont Sinemet DVT :heparin sq waiting for SW to arrange the home needs of the patient.
[2019-06-26 09:55] LABS: BLOOD UREA NITROGEN 14.8 mg/dL (7-18); CREATININE 0.7 mg/dL (0.55-1.3); MAGNESIUM 2.3 mg/dL (1.8-2.4); PHOSPHOROUS 2.3 mg/dL (2.5-4.9)
[2019-06-26] MEDS: PATIENT'S OWN MEDICATION (NON-FORMULARY) (Rotigotine [Neupro] 1 EACH) TD SCH (12:08)
[2019-06-26] MEDS: RIVASTIGMINE 4.6 MG/24 HOURS TRANSDERMAL PATCH TD SCH (12:10)
[2019-06-26] MEDS: FAMOTIDINE 40 MG/5 ML ORAL SUSPENSION PO SCH ×2 (12:16→23:04)
[2019-06-26] MEDS: AMOX TR/POTASSIUM CLAVULANATE 600 MG/5 ML PEG SCH ×2 (12:16→18:25)
--- NOTE | 2019-06-26 14:47 | PN ---
Progress Note (short form) - Note Progress Note: s: awake, alert, confused, appears comfortable Current Medications Generic Name Dose Route Start Last Admin Trade Name Freq PRN Reason Stop Dose Admin Albuterol Sulfate 1 amp 06/19/19 12:42 Ventolin 0.083% Nebulizer Soln - NEB Q6H PRN SHORT OF BREATH/WHEEZING Amoxicillin/Clavulanate Potassium 600 mg 06/25/19 17:30 06/26/19 12:16 Augmentin 600 Mg/5 Ml Oral Suspension - PEG 07/02/19 17:29 600 ml BID@0800,1730 [facility] Administration Carbidopa/Levodopa 2 each 06/19/19 19:00 06/26/19 12:15 Sinemet 25/100 - PO 2 each TID@0700,1200,1900 [facility] Administration Famotidine 20 mg 06/19/19 22:00 06/26/19 12:16 Pepcid PO 20 mg BID [facility] Administration Heparin Sodium (Porcine) 5,000 unit 06/19/19 14:00 06/26/19 06:22 Heparin - SQ 5,000 unit TID [facility] Administration Insulin Aspart 1 vial 06/19/19 16:30 06/26/19 12:16 Novolog Vial Sliding Scale - SQ Not Given ACHS [facility] Protocol Non-Formulary Medication 1 each 06/20/19 10:00 06/26/19 12:08 Rotigotine [Neupro] TD 1 each DAILY [facility] Administration Rivastigmine 1 each 06/20/19 10:00 06/26/19 12:10 Exelon Patch 4.6mg/24 Hours - TD 1 each DAILY [facility] Administration Vital Signs Period Temp Pulse Resp BP Sys/Campbell Pulse Ox Last 24 Hr 97.8 F-98.3 F 74-94 18-20 113-139/63-80 98-98 Constitutional: Yes: No Distress, Calm Neck: Yes: Supple, Trachea Midline Respiratory: Yes: Regular, Diminished Gastrointestinal: Yes: Normal Bowel Sounds, Soft Cardiovascular: Yes: Regular Rate and Rhythm JVD: No Extremities: No: Cold Edema: No Integumentary: No: Jaundice Neurological: Yes: awake alert confused Psychiatric: No: Agitated CBC, BMP 06/25/19 08:09 06/26/19 08:20 echo 05/2019 nl LV/RV function, impaired relaxation, elevated filling pressures, RV not well visualized, mild to mod MR, mild mod TR CXR: no congestion/effusions (+ atx) PNA, sepsis, acute respiratory failure 2/2 suspected aspiration: - manage per critical care, ID; - intubated after suspected aspiration event, now extubated - nl LV function on echo HTN: - stable off meds DM: - manage per primary dementia, parkinson's: - manage per primary - now s/p peg JOS, rhabdo: - renal fxn improved
[2019-06-26] MEDS ORDERED: ACETAMINOPHEN 650 MG/20.3 ML ORAL SOLUTION (CUPS) PO PRN (15:43)
[2019-06-26] MEDS ORDERED: ACETAMINOPHEN 1000 MG/100 ML VIAL (NON FORMULARY) IVPB PRN (16:41)
[2019-06-26] MEDS ORDERED: MORPHINE SULFATE 2 MG/ML VIAL IVPUSH ONE (16:45)
--- NOTE | 2019-06-26 17:45 | PN ---
Physical Exam: SUBJECTIVE: Patient seen and examined NAEON Groaning softly OBJECTIVE: Vital Signs Period Temp Pulse Resp BP Sys/Campbell Pulse Ox Last 24 Hr 97.8 F-98.4 F 74-94 18-20 104-139/63-80 98-98 GENERAL: Lethargic. Soft moaning to questioning HEAD: NC/AT EYES: extraocular movements tracking movement briefly, sclera anicteric, conjunctiva clear. No ptosis. ENT: Ears normal, nares patent. NECK: Trachea midline, full range of motion, supple. LUNGS: Breath sounds equal, mildly coarse BS w/ wheezes bilaterally. Breathing on RA HEART: Regular rate and rhythm, S1, S2 without murmur, rub or gallop. ABDOMEN: Soft, nontender, nondistended, normoactive bowel sounds, no guarding, no rebound. PEG in Left-sided abd. TF running. SACRUM: sacral wound with overlying wound VAC, with SS drainage in canister EXTREMITIES: 2+ pulses, warm, well-perfused, no edema. BLE with nonpitting edema. DP2+ b/l NEUROLOGICAL: slightly opening eyes to loud questioning/pain, withdrawing BUE and BLE to painful stimuli. Lifting arms intermittently. Not responding to questioning SKIN: Warm, dry, normal turgor, no rashes or lesions noted Laboratory Results - last 24 hr 06/25/19 06/26/19 06/26/19 23:11 05:37 08:20 Sodium 136 Potassium 4.0 Chloride 103 Carbon Dioxide 26 Anion Gap 7 L BUN 14.8 Creatinine 0.7 Est GFR (CKD-EPI)AfAm 94.18 Est GFR (CKD-EPI)NonAf 81.26 POC Glucometer 114 123 Random Glucose 135 H Calcium 8.0 L Phosphorus 2.3 L Magnesium 2.3 06/26/19 11:49 Sodium Potassium Chloride Carbon Dioxide Anion Gap BUN Creatinine Est GFR (CKD-EPI)AfAm Est GFR (CKD-EPI)NonAf POC Glucometer 99 Random Glucose Calcium Phosphorus Magnesium Active Medications Generic Name Dose Route Start Last Admin Trade Name Freq PRN Reason Stop Dose Admin Acetaminophen 1,000 mg 06/26/19 16:41 Ofirmev Injection - IVPB 06/27/19 16:40 Q6H PRN PAIN Albuterol Sulfate 1 amp 06/19/19 12:42 Ventolin 0.083% Nebulizer Soln - NEB Q6H PRN SHORT OF BREATH/WHEEZING Amoxicillin/Clavulanate Potassium 600 mg 06/25/19 17:30 06/26/19 12:16 Augmentin 600 Mg/5 Ml Oral Suspension - PEG 07/02/19 17:29 600 ml BID@0800,1730 [facility] Administration Carbidopa/Levodopa 2 each 06/19/19 19:00 06/26/19 12:15 Sinemet 25/100 - PO 2 each TID@0700,1200,1900 [facility] Administration Famotidine 20 mg 06/19/19 22:00 06/26/19 12:16 Pepcid PO 20 mg BID [facility] Administration Heparin Sodium (Porcine) 5,000 unit 06/19/19 14:00 06/26/19 15:33 Heparin - SQ 5,000 unit TID [facility] Administration Insulin Aspart 1 vial 06/26/19 16:45 Novolog Vial Sliding Scale - SQ HS [facility] Protocol Non-Formulary Medication 1 each 06/20/19 10:00 06/26/19 12:08 Rotigotine [Neupro] TD 1 each DAILY [facility] Administration Rivastigmine 1 each 06/20/19 10:00 06/26/19 12:10 Exelon Patch 4.6mg/24 Hours - TD 1 each DAILY [facility] Administration ASSESSMENT/PLAN: 79y/o female with Parkinson's and dementia who presents with AMS and cough x 4 days. At baseline she is non-ambulatory and mental status changes from day to day (some days she is alert and oriented, can speak sentences, other days she does not speak at all). Admitted for AMS. Likely aspiration PNA. Pt was hypoxic to the 80s at ED presentation. Intubated for increased work of breathing. Flu negative. Atelectasis vs infiltrate at Left base. Extubated on 06/09. Repeat CTH on 06/11/19 by Neuro, w/o significant interval change; possibly chronic and superimposed sinusitis of Left maxillary antrum and sphenoid sinus. Daughter expresses desire to avoid PEG, has strong belief that optimization of Parkinson' s and Dementia drugs will help pt resolve AMS. Received zosyn x8d(06/01 -06/13) for possible aspiration PNA. Failing bedside S&S evaluation. TF via NGT. Solumedrol stopped on 06/15/19. IR(Carmencita) consult for possible PEG. Sacral wound worsening which prompted Sacral Decubitus Wound Debridement(Jade, ). Having fevers, possibly from Left-sided infiltrate vs sacral wound infection. Sacral wound has been VAC'd. s/p IR PEG 06/23/19 #acute hypoxic respiratory failure 2/2 multilobar PNA and sepsis -CXR improved post-intubation > CXR(06/08/19): Left base w/ minimal atelectasis, sharp rib angles > CXR(06/21/19): L-base w/ atelectasis vs infiltrate > flu: negative > Echo: normal EF, impaired relaxation, elevated filling pressures, TR, MR -Ventolin TID -solumedrol 20mg IVP BID --> 20mg IVP QD --> stopped -zosyn 3.375g Q8H --for PNA vs infected sacral wound -ID(Valentino) consult: --resumed Zosyn on 06/22/19 --Augmentin PEG BID, x7d (06/25 --) -Pulm(Jourdan) consult: --taper medrol --stopped on 06/15/19 #AMS: toxic metabolic encephalopathy vs less likely CVA -CT head negative for acute processes -CT H(06/11/19): no significant change, possible chronic/superimposed Left maxillary sinusitis -urine cx negative -blood cx(06/01/19): Staph coag negative in 1 bottle --likely contaminant -blood cx(06/03/19): NGTD -sputum cx(06/04/19): yeast-like -blood cx(06/22/19): NGTD -dietary following -speech following #inability to tolerate PO --2/2 AMS -NGT feeds(Glucerna) -PEG(Aaron-DiGiorno) evaluation --will defer to IR -IR(Karen) evaluation: placed 06/23/19 --ok for tube feeds #sacral decubitus ulcer -surgery(Jacob Estrada) consulted --Reposition every two hours while in bed --Air mattress recommended --Use drawsheets and Trendelenburg when repositioning to reduce friction and shear --Manageincontinence via timely cleansing, use of appropriate incontinence disposables and use of barrier ointment to intact skin --Ensure adequate hydration/nutrition, supplementation per primary team --Ensure off-loading to all bony areas (heels, ankles, hips and tailbone) with Allevyn/Optifoam --Clean open wounds with normal saline and apply bacitracin -Surgery(Hansen): --debridement 06/19/19 #leukocytosis -from infection vs steroid use -mild improvement continues -continue monitor #JOS, resolved -nephro following -Cardio following --diovan held --BP stable #anemia of chronic disease -microcytosis but low TIBC, unsaturated IBC, and high ferritin #Parkinson's and dementia -continue Sinimet, modified dose for NG tube, @0700, 1200, 1900 -rivostigmine patch -rotigotine patch #mild hypophosphatemia, resolved #lactic acidosis, resolved #transaminitis, improved DVT ppx SQH GI ppx protonix FEN monitor labs NG feeds: Glucerna through PEG Visit type - Emergency Visit Emergency Visit: No - New Patient This patient is new to me today: No - Critical Care Critical Care patient: No ATTENDING PHYSICIAN STATEMENT I saw and evaluated the patient. I reviewed the resident's note and discussed the case with the resident. I agree with the resident's findings and plan as documented. SUBJECTIVE: OBJECTIVE: ASSESSMENT AND PLAN:
[2019-06-27] MEDS: CARBIDOPA/LEVODOPA 25/100 TABLET (FP) PO SCH ×3 (06:47→18:31)
[2019-06-27] MEDS: HEPARIN NA (PORCINE) 5,000 UNITS/ML 1ML VIAL SQ SCH ×3 (06:48→21:42)
[2019-06-27] MEDS: FAMOTIDINE 40 MG/5 ML ORAL SUSPENSION PO SCH ×2 (09:06→21:44)
[2019-06-27] MEDS: AMOX TR/POTASSIUM CLAVULANATE 600 MG/5 ML PEG SCH ×2 (09:07→17:55)
[2019-06-27] MEDS: RIVASTIGMINE 4.6 MG/24 HOURS TRANSDERMAL PATCH TD SCH (09:07)
[2019-06-27] MEDS: PATIENT'S OWN MEDICATION (NON-FORMULARY) (Rotigotine [Neupro] 1 EACH) TD SCH (09:08)
[2019-06-27 09:55] LABS: BLOOD UREA NITROGEN 18.4 mg/dL (7-18); CALCIUM 8.4 mg/dL (8.5-10.1); CREATININE 0.7 mg/dL (0.55-1.3); MAGNESIUM 2.2 mg/dL (1.8-2.4); PHOSPHOROUS 3.2 mg/dL (2.5-4.9); POTASSIUM 4.2 mmol/L (3.5-5.1)
--- NOTE | 2019-06-27 13:39 | PN ---
Progress Note (short form) - Note Progress Note: PULMONARY Pt nonverbal. No fevers recorded. Tolerating feeds. Vital Signs Period Temp Pulse Resp BP Sys/Campbell Pulse Ox Last 24 Hr 97.3 F-98.6 F 68-88 18-18 104-145/67-84 96-99 Gen: NAD at rest Heart: RRR Lung: scattered rhonchi Abd: soft, nontender Ext: no edema CBC, BMP 06/25/19 08:09 06/27/19 08:30 Active Medications Acetaminophen (Ofirmev Injection -) 1,000 mg IVPB Q6H PRN PRN Reason: PAIN Stop: 06/27/19 16:40 Albuterol Sulfate (Ventolin 0.083% Nebulizer Soln -) 1 amp NEB Q6H PRN PRN Reason: SHORT OF BREATH/WHEEZING Amoxicillin/Clavulanate Potassium (Augmentin 600 Mg/5 Ml Oral Suspension -) 600 mg PEG BID@0800,1730 [facility] Stop: 07/02/19 17:29 Last Admin: 06/27/19 09:07 Dose: 5 ml Carbidopa/Levodopa (Sinemet 25/100 -) 2 each PO TID@0700,1200,1900 [facility] Last Admin: 06/27/19 12:50 Dose: 2 each Famotidine (Pepcid) 20 mg PO BID [facility] Last Admin: 06/27/19 09:06 Dose: 20 mg Heparin Sodium (Porcine) (Heparin -) 5,000 unit SQ TID [facility] Last Admin: 06/27/19 13:31 Dose: 5,000 unit Insulin Aspart (Novolog Vial Sliding Scale -) 1 vial SQ [facility]; Protocol Last Admin: 06/26/19 23:57 Dose: Not Given Non-Formulary Medication (Rotigotine [Neupro]) 1 each TD DAILY [facility] Last Admin: 06/27/19 09:08 Dose: 1 each Rivastigmine (Exelon Patch 4.6mg/24 Hours -) 1 each TD DAILY [facility] Last Admin: 06/27/19 09:07 Dose: 1 each A/P Acute Hypercapneic Respiratory Failure improving Pneumonia likely Aspiration Sepsis Lactic Acidosis Acute Kidney Injury HTN DM Parkinsons Dementia Anemia - complete antibiotics - inhaled bronchodilators - o2 to keep SpO2 >90% - enteral feeds - aspiration precautions - DVT prophylaxis - d/c planning
[2019-06-27] MEDS ORDERED: ALBUTEROL SO4 0.083% IH SOL 2.5 MG/3 ML VIAL.NEB. NEB PRN (17:22)
[2019-06-27] MEDS ORDERED: ACETAMINOPHEN 650 MG/20.3 ML ORAL SOLUTION (CUPS) PO PRN (17:23)
[2019-06-27] MEDS ORDERED: PT OWN MED DRAWER 7, Y5N ONE ×2 (17:49→21:41)
[2019-06-27] MEDS: MORPHINE SULFATE 2 MG/ML VIAL IVPUSH PRN (17:54)
[2019-06-27] MEDS: INSULIN SLIDING SCALE (NOVOLOG) 1 VIAL SQ SCH (21:39)
--- NOTE | 2019-06-27 21:53 | PN ---
Progress Note (short form) - Note Progress Note: Patient is comfortable with no acute distress, comfortably lying. Vital Signs Temperature 98.2 F 06/27/19 18:00 Pulse Rate 75 06/27/19 18:00 Respiratory Rate 20 06/27/19 18:00 Blood Pressure 106/62 06/27/19 18:00 O2 Sat by Pulse Oximetry (%) 96 06/27/19 09:00 GENERAL: The patient is awake, with no acute distress. HEAD: Normal with no signs of trauma. EYES: PERRL, extraocular movements intact, sclera anicteric, conjunctiva clear. ENT: Ears normal, oropharynx clear without exudates, moist mucous membranes. NECK: Trachea midline, full range of motion, supple. LUNGS: Breath sounds equal, clear to auscultation bilaterally, no wheezes, no crackles, no accessory muscle use. HEART: Regular rate and rhythm, S1, S2 without murmur, rub or gallop. ABDOMEN: Soft, nontender, nondistended, normoactive bowel sounds, no guarding, no rebound, no hepatosplenomegaly, no masses. EXTREMITIES: 2+ pulses, warm, well-perfused, no edema. NEUROLOGICAL: Cranial nerves II through XII grossly intact. gait not observed. SKIN: Warm, dry, normal turgor, no rashes or lesions noted CBCD WBC 10.7 K/mm3 (4.0-10.0) H 06/25/19 08:09 RBC 3.79 M/mm3 (3.60-5.2) 06/25/19 08:09 Hgb 8.9 GM/dL (10.7-15.3) L 06/25/19 08:09 Hct 27.3 % (32.4-45.2) L 06/25/19 08:09 MCV 71.9 fl (80-96) L 06/25/19 08:09 MCHC 32.5 g/dl (32.0-36.0) 06/25/19 08:09 RDW 16.7 % (11.6-15.6) H 06/25/19 08:09 Plt Count 240 K/MM3 (134-434) 06/25/19 08:09 MPV 9.1 fl (7.5-11.1) 06/25/19 08:09 CMP Sodium 138 mmol/L (136-145) 02/01/20 08:30 Potassium 4.2 mmol/L (3.5-5.1) 06/27/19 08:30 Chloride 104 mmol/L (98-107) 06/27/19 08:30 Carbon Dioxide 28 mmol/L (21-32) 06/27/19 08:30 Anion Gap 7 MMOL/L (8-16) L 06/27/19 08:30 BUN 18.4 mg/dL (7-18) H 06/27/19 08:30 Creatinine 0.7 mg/dL (0.55-1.3) 06/27/19 08:30 Random Glucose 139 mg/dL (74-106) H 06/27/19 08:30 Calcium 8.4 mg/dL (8.5-10.1) L 06/27/19 08:30 Total Bilirubin 0.8 mg/dL (0.2-1) 06/19/19 07:57 AST 11 U/L (15-37) L 06/19/19 07:57 ALT 7 U/L (13-61) L 06/19/19 07:57 Alkaline Phosphatase 75 U/L (45-117) 06/19/19 07:57 Total Protein 6.7 g/dl (6.4-8.2) 06/19/19 07:57 Albumin 2.8 g/dl (3.4-5.0) L 06/19/19 07:57 CARDIAC ENZYMES Creatine Kinase 281 U/L (26-192) H 06/04/19 06:30 Troponin I < 0.02 ng/ml (0.00-0.05) 06/01/19 04:07 Current Medications Generic Name Dose Route Start Last Admin Trade Name Freq PRN Reason Stop Dose Admin Acetaminophen 650 mg 06/27/19 17:23 Tylenol Oral Solution - PO Q6H PRN pain 1-5 Albuterol Sulfate 1 amp 06/27/19 17:22 Ventolin 0.083% Nebulizer Soln - NEB Q8H PRN SHORT OF BREATH/WHEEZING Amoxicillin/Clavulanate Potassium 600 mg 06/25/19 17:30 06/27/19 17:55 Augmentin 600 Mg/5 Ml Oral Suspension - PEG 07/02/19 17:29 5 ml BID@0800,1730 [facility] Administration Carbidopa/Levodopa 2 each 06/19/19 19:00 06/27/19 18:31 Sinemet 25/100 - PO 2 each TID@0700,1200,1900 [facility] Administration Famotidine 20 mg 06/19/19 22:00 06/27/19 21:44 Pepcid PO 20 mg BID [facility] Administration Heparin Sodium (Porcine) 5,000 unit 06/19/19 14:00 06/27/19 21:42 Heparin - SQ 5,000 unit TID [facility] Administration Insulin Aspart 1 vial 06/26/19 16:45 06/27/19 21:39 Novolog Vial Sliding Scale - SQ Not Given HS [facility] Protocol Morphine Sulfate 1 mg 06/27/19 17:22 06/27/19 17:54 Morphine Sulfate IVPUSH 1 mg Q6H PRN Administration PAIN LEVEL 6-10 Non-Formulary Medication 1 each 06/20/19 10:00 06/27/19 09:08 Rotigotine [Neupro] TD 1 each DAILY [facility] Administration Rivastigmine 1 each 06/20/19 10:00 06/27/19 09:07 Exelon Patch 4.6mg/24 Hours - TD 1 each DAILY [facility] Administration Home Medications Medication Instructions Recorded Ca/D3/Mag Ox/Zinc/Change Control Analyst/Ketan/Bor 1 each PO HS 04/13/18 [Calcium 600-D3 Plus Caplet] Carbidopa/Levodopa [Carbidopa-Levo 1 each PO TID 04/13/18 ER 50-200 Tab] Aspirin 81 mg PO DAILY 06/01/19 Melatonin 5 mg PO HS 06/01/19 Olanzapine [Zyprexa -] 7.5 mg PO DAILY 06/01/19 Omeprazole 20 mg PO DAILY 06/01/19 Rivastigmine [Exelon Patch 1 each TD DAILY 06/01/19 4.6MG/24 Hours] Rotigotine [Neupro] 1 each TD DAILY 06/01/19 Microbiology 06/22/19 11:40 Blood - Peripheral Venous Blood Culture - Preliminary NO GROWTH OBTAINED AFTER 72 HOURS, INCUBATION TO CONTINUE FOR 2 DAYS. 06/22/19 11:35 Blood - Peripheral Venous Blood Culture - Preliminary NO GROWTH OBTAINED AFTER 72 HOURS, INCUBATION TO CONTINUE FOR 2 DAYS. 06/03/19 11:40 Blood - Peripheral Venous Blood Culture - Final NO GROWTH AFTER 5 DAYS INCUBATION 06/03/19 12:00 Blood - Peripheral Venous Blood Culture - Final NO GROWTH AFTER 5 DAYS INCUBATION 06/04/19 06:20 Sputum - Oropharynx Suctioned Sputum Gram Stain - Final 06/04/19 06:20 Sputum - Oropharynx Suctioned Sputum Sputum Culture - Final Yeast Like Organism 06/01/19 00:00 Blood - Peripheral Venous Blood Culture - Final NO GROWTH AFTER 5 DAYS INCUBATION 06/01/19 00:00 Blood - Peripheral Venous Blood Culture - Final Staph Capitis Subsp Ureolyticu 06/01/19 03:00 Urine For Antigen Detection Legionella Antigen - Final 06/01/19 03:00 Urine For Antigen Detection Streptococcus pneumoniae Antigen (M - Final 06/01/19 01:20 Urine - Urine - Catheterized Urine Culture - Final NO GROWTH OBTAINED ASSESSMENT AND PLAN: Patient is an 79yof with PMhx Parkinson Disease and dementia who presented with AMS. # s/p PEG placement # Acute hypercapnic resp failure. Resolved. # Aspiration PNA cont zosyn, blood cx ngtd # JOS: resolved # Rhabdo : resolved # Thrombocytopenia: resolved # h/o HTN # h/o DM cont SSI # AMS: acute metabolic encephalopathy . Improved # h/o dementia # Microcytic anemia # contaminant blood cx # Unstageable sacral decub ulcer , s/p debridment 06/20 ,wound vac application continue #Parkinsonism: cont Sinemet DVT :heparin sq no new changes waitng for [facility] Visit type - Emergency Visit Emergency Visit: Yes ED Registration Date: 06/01/19 Care time: The patient presented to the Emergency Department on the above date and was hospitalized for further evaluation of their emergent condition. - New Patient This patient is new to me today: No - Critical Care Critical Care patient: No - Discharge Referral Referred to [facility] Med P.C.: No
[2019-06-28] MEDS: HEPARIN NA (PORCINE) 5,000 UNITS/ML 1ML VIAL SQ SCH ×3 (06:07→22:01)
[2019-06-28] MEDS: CARBIDOPA/LEVODOPA 25/100 TABLET (FP) PO SCH ×3 (06:08→18:28)
[2019-06-28] MEDS ORDERED: PT OWN MED DRAWER 7, Y5N ONE ×3 (08:37→21:55)
--- NOTE | 2019-06-28 10:03 | PN ---
Physical Exam: SUBJECTIVE: Patient seen and examined at bedside, comfortable. Minimally responsive, tracking movement across room. OBJECTIVE: Vital Signs Period Temp Pulse Resp BP Sys/Campbell Pulse Ox Last 24 Hr 97.7 F-98.4 F 68-78 18-20 97-147/59-68 99-100 GENERAL: Minimally responsive to tactile stimuli HEAD: Normal with no signs of trauma. EYES: PERRL, sclera anicteric, conjunctiva clear. ENT: Moist mucous membranes. LUNGS: Breath sounds equal, clear to auscultation bilaterally, no wheezes, no crackles. HEART: Regular rate and rhythm, S1, S2 without murmur, rub or gallop. ABDOMEN: Soft, nontender, nondistended, normoactive bowel sounds. PEG tube in place, site clean dry. EXTREMITIES: 2+ radial, dorsalis pedis pulses, warm, well-perfused. No edema. NEUROLOGICAL: Minimal tracking of motion. Withdraws bilateral upper, lower extremities to tactile stimuli. SKIN: Sacral decubitus ulcer; wound vac in place. Laboratory Results - last 24 hr 06/27/19 21:37 POC Glucometer 130 Active Medications Generic Name Dose Route Start Last Admin Trade Name Freq PRN Reason Stop Dose Admin Acetaminophen 650 mg 06/27/19 17:23 Tylenol Oral Solution - PO Q6H PRN pain 1-5 Albuterol Sulfate 1 amp 06/27/19 17:22 Ventolin 0.083% Nebulizer Soln - NEB Q8H PRN SHORT OF BREATH/WHEEZING Amoxicillin/Clavulanate Potassium 600 mg 06/25/19 17:30 06/27/19 17:55 Augmentin 600 Mg/5 Ml Oral Suspension - PEG 07/02/19 17:29 5 ml BID@0800,1730 [facility] Administration Carbidopa/Levodopa 2 each 06/19/19 19:00 06/28/19 06:08 Sinemet 25/100 - PO 2 each TID@0700,1200,1900 [facility] Administration Famotidine 20 mg 06/19/19 22:00 06/27/19 21:44 Pepcid PO 20 mg BID [facility] Administration Heparin Sodium (Porcine) 5,000 unit 06/19/19 14:00 06/28/19 06:07 Heparin - SQ 5,000 unit TID [facility] Administration Insulin Aspart 1 vial 06/26/19 16:45 06/27/19 21:39 Novolog Vial Sliding Scale - SQ Not Given HS [facility] Protocol Morphine Sulfate 1 mg 06/27/19 17:22 06/27/19 17:54 Morphine Sulfate IVPUSH 1 mg Q6H PRN Administration PAIN LEVEL 6-10 Non-Formulary Medication 1 each 06/20/19 10:00 06/27/19 09:08 Rotigotine [Neupro] TD 1 each DAILY [facility] Administration Rivastigmine 1 each 06/20/19 10:00 06/27/19 09:07 Exelon Patch 4.6mg/24 Hours - TD 1 each DAILY [facility] Administration ASSESSMENT/PLAN: Patient is an 79 year old female with history of Parkinson's, dementia presents with altered mental status, and cough. Acute hypoxic respiratory failure, sepsis secondary to community acquired pnuemonia -Improved. Saturating well on room air. -Augmentin switched (from Zosyn) for possible aspiration pneumonia. -Completed Medrol taper -DuoNebs [id number] PRN for shortness of breath -Saturating well on room air. Monitor vital signs closely. Parkinsons -Continue Sinimet (dose modified for PEG tube) -Rivostigmine patch, Rotigotine patch -Neurology recommendations appreciated. Sacral decubitus ulcer -S/P debridment. Wound vac in place. -Surgery recommendations (Dr. Hansen) appreciated. Dysphagia -S/P PEG tube placement. -Gastroenterology, IR recommendations appreciated. Leukocytosis -Likely secondary to recent steroid taper. Follow CBC. Monitoring off antibiotics Diabetes Mellitus -ISS ACHS -Fingerstick BGM ACHS FEN -No IV fluids indicated -Follow BMP -Glucerna tube feeds Prophylaxis -Heparin 5000units subq TID -Pepcid 20mg NGT BID Disposition -Continue care in medical- surgical floor. Visit type - Emergency Visit Emergency Visit: Yes ED Registration Date: 06/01/19 Care time: The patient presented to the Emergency Department on the above date and was hospitalized for further evaluation of their emergent condition. - New Patient This patient is new to me today: No - Critical Care Critical Care patient: No - [facility] No ATTENDING PHYSICIAN STATEMENT I saw and evaluated the patient. I reviewed the resident's note and discussed the case with the resident. I agree with the resident's findings and plan as documented. SUBJECTIVE: OBJECTIVE: ASSESSMENT AND PLAN:
[2019-06-28] MEDS: RIVASTIGMINE 4.6 MG/24 HOURS TRANSDERMAL PATCH TD SCH (10:44)
[2019-06-28] MEDS: AMOX TR/POTASSIUM CLAVULANATE 600 MG/5 ML PEG SCH ×2 (10:45→18:28)
[2019-06-28] MEDS: PATIENT'S OWN MEDICATION (NON-FORMULARY) (Rotigotine [Neupro] 1 EACH) TD SCH (10:45)
[2019-06-28] MEDS: FAMOTIDINE 40 MG/5 ML ORAL SUSPENSION PO SCH ×2 (10:46→22:59)
--- NOTE | 2019-06-28 13:21 | PN ---
Progress Note (short form) - Note Progress Note: PULMONARY Pt nonverbal. No fevers recorded. Tolerating feeds. Vital Signs Period Temp Pulse Resp BP Sys/Campbell Pulse Ox Last 24 Hr 97.7 F-98.4 F 73-78 18-20 97-147/59-66 99-100 Gen: NAD at rest Heart: RRR Lung: scattered rhonchi Abd: soft, nontender Ext: no edema CBC, BMP 06/25/19 08:09 06/27/19 08:30 Active Medications Acetaminophen (Tylenol Oral Solution -) 650 mg PO Q6H PRN PRN Reason: pain 1-5 Albuterol Sulfate (Ventolin 0.083% Nebulizer Soln -) 1 amp NEB Q8H PRN PRN Reason: SHORT OF BREATH/WHEEZING Amoxicillin/Clavulanate Potassium (Augmentin 600 Mg/5 Ml Oral Suspension -) 600 mg PEG BID@0800,1730 [facility] Stop: 07/02/19 17:29 Last Admin: 06/28/19 10:45 Dose: 5 ml Carbidopa/Levodopa (Sinemet 25/100 -) 2 each PO TID@0700,1200,1900 [facility] Last Admin: 06/28/19 12:12 Dose: 2 each Famotidine (Pepcid) 20 mg PO BID [facility] Last Admin: 06/28/19 10:46 Dose: 20 mg Heparin Sodium (Porcine) (Heparin -) 5,000 unit SQ TID [facility] Last Admin: 06/28/19 06:07 Dose: 5,000 unit Insulin Aspart (Novolog Vial Sliding Scale -) 1 vial SQ HS [facility]; Protocol Last Admin: 06/27/19 21:39 Dose: Not Given Morphine Sulfate (Morphine Sulfate) 1 mg IVPUSH Q6H PRN PRN Reason: PAIN LEVEL 6-10 Last Admin: 06/27/19 17:54 Dose: 1 mg Non-Formulary Medication (Rotigotine [Neupro]) 1 each TD DAILY [facility] Last Admin: 06/28/19 10:45 Dose: 1 each Rivastigmine (Exelon Patch 4.6mg/24 Hours -) 1 each TD DAILY [facility] Last Admin: 06/28/19 10:44 Dose: 1 each A/P Acute Hypercapneic Respiratory Failure improving Pneumonia likely Aspiration Sepsis Lactic Acidosis Acute Kidney Injury HTN DM Parkinsons Dementia Anemia - complete antibiotics - inhaled bronchodilators - o2 to keep SpO2 >90% - enteral feeds - aspiration precautions - DVT prophylaxis - d/c planning
[2019-06-28] MEDS: MORPHINE SULFATE 2 MG/ML VIAL IVPUSH PRN ×2 (14:51→23:11)
--- NOTE | 2019-06-28 18:59 | PN ---
Teaching Attending Note Name of Resident: Simeon Balbuena ATTENDING PHYSICIAN STATEMENT I saw and evaluated the patient. I reviewed the resident's note and discussed the case with the resident. I agree with the resident's findings and plan as documented. SUBJECTIVE: Patient is comfortable with no acute distress, lying in bed. Vital Signs Temperature 98.5 F 06/28/19 16:55 Pulse Rate 88 06/28/19 16:55 Respiratory Rate 20 06/28/19 16:55 Blood Pressure 116/64 06/28/19 16:55 O2 Sat by Pulse Oximetry (%) 99 06/28/19 01:54 GENERAL: The patient is awake, with no acute distress. HEAD: Normal with no signs of trauma. EYES: PERRL, extraocular movements intact, sclera anicteric, conjunctiva clear. ENT: Ears normal, oropharynx clear without exudates, moist mucous membranes. NECK: Trachea midline, full range of motion, supple. LUNGS: Breath sounds equal, clear to auscultation bilaterally, no wheezes, no crackles, no accessory muscle use. HEART: Regular rate and rhythm, S1, S2 without murmur, rub or gallop. ABDOMEN: Soft, nontender, nondistended, normoactive bowel sounds, no guarding, no rebound, no hepatosplenomegaly, no masses. EXTREMITIES: 2+ pulses, warm, well-perfused, no edema. NEUROLOGICAL: Cranial nerves II through XII grossly intact. gait not observed. SKIN: Warm, dry, normal turgor, no rashes or lesions noted CBCD WBC 10.7 K/mm3 (4.0-10.0) H 06/25/19 08:09 RBC 3.79 M/mm3 (3.60-5.2) 06/25/19 08:09 Hgb 8.9 GM/dL (10.7-15.3) L 06/25/19 08:09 Hct 27.3 % (32.4-45.2) L 06/25/19 08:09 MCV 71.9 fl (80-96) L 06/25/19 08:09 MCHC 32.5 g/dl (32.0-36.0) 06/25/19 08:09 RDW 16.7 % (11.6-15.6) H 06/25/19 08:09 Plt Count 240 K/MM3 (134-434) 06/25/19 08:09 MPV 9.1 fl (7.5-11.1) 06/25/19 08:09 CMP Sodium 138 mmol/L (136-145) 06/27/19 08:30 Potassium 4.2 mmol/L (3.5-5.1) 06/27/19 08:30 Chloride 104 mmol/L (98-107) 06/27/19 08:30 Carbon Dioxide 28 mmol/L (21-32) 06/27/19 08:30 Anion Gap 7 MMOL/L (8-16) L 06/27/19 08:30 BUN 18.4 mg/dL (7-18) H 06/27/19 08:30 Creatinine 0.7 mg/dL (0.55-1.3) 06/27/19 08:30 Random Glucose 139 mg/dL (74-106) H 06/27/19 08:30 Calcium 8.4 mg/dL (8.5-10.1) L 06/27/19 08:30 Total Bilirubin 0.8 mg/dL (0.2-1) 06/19/19 07:57 AST 11 U/L (15-37) L 06/19/19 07:57 ALT 7 U/L (13-61) L 06/19/19 07:57 Alkaline Phosphatase 75 U/L (45-117) 06/19/19 07:57 Total Protein 6.7 g/dl (6.4-8.2) 06/19/19 07:57 Albumin 2.8 g/dl (3.4-5.0) L 06/19/19 07:57 CARDIAC ENZYMES Creatine Kinase 281 U/L (26-192) H 06/04/19 06:30 Troponin I < 0.02 ng/ml (0.00-0.05) 06/01/19 04:07 Home Medications Medication Instructions Recorded Ca/D3/Mag Ox/Zinc/[employer]/Ketan/Bor 1 each PO HS 04/13/18 [Calcium 600-D3 Plus Caplet] Carbidopa/Levodopa [Carbidopa-Levo 1 each PO TID 04/13/18 ER 50-200 Tab] Aspirin 81 mg PO DAILY 06/01/19 Melatonin 5 mg PO HS 06/01/19 Olanzapine [Zyprexa -] 7.5 mg PO DAILY 06/01/19 Omeprazole 20 mg PO DAILY 06/01/19 Rivastigmine [Exelon Patch 1 each TD DAILY 06/01/19 4.6MG/24 Hours] Rotigotine [Neupro] 1 each TD DAILY 06/01/19 Current Medications Generic Name Dose Route Start Last Admin Trade Name Freq PRN Reason Stop Dose Admin Acetaminophen 650 mg 06/27/19 17:23 Tylenol Oral Solution - PO Q6H PRN pain 1-5 Albuterol Sulfate 1 amp 06/27/19 17:22 Ventolin 0.083% Nebulizer Soln - NEB Q8H PRN SHORT OF BREATH/WHEEZING Amoxicillin/Clavulanate Potassium 600 mg 06/25/19 17:30 06/28/19 18:28 Augmentin 600 Mg/5 Ml Oral Suspension - PEG 07/02/19 17:29 5 ml BID@0800,1730 [facility] Administration Carbidopa/Levodopa 2 each 06/19/19 19:00 06/28/19 18:28 Sinemet 25/100 - PO 2 each TID@0700,1200,1900 [facility] Administration Famotidine 20 mg 06/19/19 22:00 06/28/19 10:46 Pepcid PO 20 mg BID [facility] Administration Heparin Sodium (Porcine) 5,000 unit 06/19/19 14:00 06/28/19 14:52 Heparin - SQ 5,000 unit TID [facility] Administration Insulin Aspart 1 vial 06/26/19 16:45 06/27/19 21:39 Novolog Vial Sliding Scale - SQ Not Given HS [facility] Protocol Morphine Sulfate 1 mg 06/27/19 17:22 06/28/19 14:51 Morphine Sulfate IVPUSH 1 mg Q6H PRN Administration PAIN LEVEL 6-10 Non-Formulary Medication 1 each 06/20/19 10:00 06/28/19 10:45 Rotigotine [Neupro] TD 1 each DAILY [facility] Administration Rivastigmine 1 each 06/20/19 10:00 06/28/19 10:44 Exelon Patch 4.6mg/24 Hours - TD 1 each DAILY [facility] Administration Microbiology 06/22/19 11:40 Blood - Peripheral Venous Blood Culture - Preliminary NO GROWTH OBTAINED AFTER 72 HOURS, INCUBATION TO CONTINUE FOR 2 DAYS. 06/22/19 11:35 Blood - Peripheral Venous Blood Culture - Preliminary NO GROWTH OBTAINED AFTER 72 HOURS, INCUBATION TO CONTINUE FOR 2 DAYS. 06/03/19 11:40 Blood - Peripheral Venous Blood Culture - Final NO GROWTH AFTER 5 DAYS INCUBATION 06/03/19 12:00 Blood - Peripheral Venous Blood Culture - Final NO GROWTH AFTER 5 DAYS INCUBATION 06/04/19 06:20 Sputum - Oropharynx Suctioned Sputum Gram Stain - Final 06/04/19 06:20 Sputum - Oropharynx Suctioned Sputum Sputum Culture - Final Yeast Like Organism 06/01/19 00:00 Blood - Peripheral Venous Blood Culture - Final NO GROWTH AFTER 5 DAYS INCUBATION 06/01/19 00:00 Blood - Peripheral Venous Blood Culture - Final Staph Capitis Subsp Ureolyticu 06/01/19 03:00 Urine For Antigen Detection Legionella Antigen - Final 06/01/19 03:00 Urine For Antigen Detection Streptococcus pneumoniae Antigen (M - Final 06/01/19 01:20 Urine - Urine - Catheterized Urine Culture - Final NO GROWTH OBTAINED ASSESSMENT AND PLAN: Patient is an 79yof with PMhx Parkinson Disease and dementia who presented with AMS. # s/p PEG placement , continue feeding # Acute hypercapnic resp failure. Resolved. # Aspiration PNA cont zosyn, blood cx ngtd # JOS: resolved # Rhabdo : resolved # Thrombocytopenia: resolved # h/o HTN # h/o DM cont SSI # AMS: acute metabolic encephalopathy . Improved # h/o dementia # Microcytic anemia # contaminant blood cx # Unstageable sacral decub ulcer , s/p debridment 06/20 ,wound vac application continue #Parkinsonism: cont Sinemet DVT :heparin sq no new changes waitng for arrangment
[2019-06-28] MEDS: INSULIN SLIDING SCALE (NOVOLOG) 1 VIAL SQ SCH (22:00)
[2019-06-29] MEDS: CARBIDOPA/LEVODOPA 25/100 TABLET (FP) PO SCH ×3 (06:50→18:21)
[2019-06-29] MEDS: HEPARIN NA (PORCINE) 5,000 UNITS/ML 1ML VIAL SQ SCH ×3 (06:50→23:32)
--- NOTE | 2019-06-29 08:43 | PN ---
Progress Note (short form) - Note Progress Note: Neurology CHIEF COMPLAINT: AMS PCP: None HISTORY OF PRESENT ILLNESS: Ms. Prescott is an 79 year old female with PMH of Parkinson Disease and dementia who was BIBEMS with AMS x4 days at time of admission. Daughter was at bedside and that time and provided history. Pt lives at home (no CIGARETTE SELLER or VNS) with daughter as primary ordnance handler. At baseline she is non-ambulatory and mental status changes from day to day (some days she is alert and oriented, can speak sentences, other days she does not speak at all). Pt has had a productive cough of yellow sputum for 4 days before day of admission and has become increasingly confused and somnolent. Decreased appetite, unable to eat or drink anything. On day of admission, she was not responding at all and had a low grade fever. Daughter stated that pt has not complained of any symptoms (chest pain, abd pain , SOB, urinary complaints). On arrival to ED, pt was hypoxic in the 80s. Patient consulted for altered mental status. Ct of head reviewed and showed no evidence of a focal intracranial lesion or hemorrhage completed on 06/01 at the time of admission. Patient downgraded from ICU and currently on telemetry floor. Patient status post PEG tube placement and no issues with PEG per notes. Weekend events reviewed, no neurologic changes. Patient appears to be stable at this time. Active Medications Acetaminophen (Tylenol Oral Solution -) 650 mg PO Q6H PRN PRN Reason: pain 1-5 Albuterol Sulfate (Ventolin 0.083% Nebulizer Soln -) 1 amp NEB Q8H PRN PRN Reason: SHORT OF BREATH/WHEEZING Amoxicillin/Clavulanate Potassium (Augmentin 600 Mg/5 Ml Oral Suspension -) 600 mg PEG BID@0800,1730 [facility] Stop: 07/02/19 17:29 Last Admin: 06/28/19 18:28 Dose: 5 ml Carbidopa/Levodopa (Sinemet 25/100 -) 2 each PO TID@0700,1200,1900 [facility] Last Admin: 06/29/19 06:50 Dose: 2 each Famotidine (Pepcid) 20 mg PO BID [facility] Last Admin: 06/28/19 22:59 Dose: 20 mg Heparin Sodium (Porcine) (Heparin -) 5,000 unit SQ TID [facility] Last Admin: 06/29/19 06:50 Dose: 5,000 unit Insulin Aspart (Novolog Vial Sliding Scale -) 1 vial SQ HS [facility]; Protocol Last Admin: 06/28/19 22:00 Dose: Not Given Morphine Sulfate (Morphine Sulfate) 1 mg IVPUSH Q6H PRN PRN Reason: PAIN LEVEL 6-10 Last Admin: 06/28/19 23:11 Dose: 1 mg Non-Formulary Medication (Rotigotine [Neupro]) 1 each TD DAILY [facility] Last Admin: 06/28/19 10:45 Dose: 1 each Rivastigmine (Exelon Patch 4.6mg/24 Hours -) 1 each TD DAILY [facility] Last Admin: 06/28/19 10:44 Dose: 1 each PHYSICAL EXAMINATION Vital Signs Period Temp Pulse Resp BP Sys/Campbell Pulse Ox Last 24 Hr 98.2 F-99.7 F 77-104 -20 104-116/44-69 98-98 GENERAL: Somnolent, slightly responsive to sternal rub. HEAD: Normal with no signs of trauma. EYES: Pupils equal, round and reactive to light, extraocular movements intact, sclera anicteric, conjunctiva clear. No lid lag. EARS, NOSE, THROAT: Ears normal, nares patent, oropharynx clear without exudates. Dry mucous membranes. NECK: Normal range of motion, supple without lymphadenopathy, JVD, or masses. LUNGS: Inspiratory and expiratory wheezes throughout, accessory muscle use. HEART: Regular rate and rhythm, normal S1 and S2 without murmur, rub or gallop. ABDOMEN: Soft, nontender, not distended, normoactive bowel sounds, no guarding, no rebound, no masses. No hepatomegaly or splenomegaly. MUSCULOSKELETAL: Normal range of motion at all joints. No bony deformities or tenderness. No CVA tenderness. UPPER EXTREMITIES: 2+ pulses, warm, well-perfused. No cyanosis. No clubbing. No peripheral edema. LOWER EXTREMITIES: 2+ pulses, warm, well-perfused. No calf tenderness. No peripheral edema. NEUROLOGICAL: Unable to assess 2/2 mental status. PSYCHIATRIC: Cooperative. Good eye contact. Appropriate mood and affect. SKIN: Warm, dry, normal turgor, normal capillary refill. Sacral decubitus ulcer with sloughing skin and erythema. CBCD WBC 10.7 K/mm3 (4.0-10.0) H 06/25/19 08:09 RBC 3.79 M/mm3 (3.60-5.2) 06/25/19 08:09 Hgb 8.9 GM/dL (10.7-15.3) L 06/25/19 08:09 Hct 27.3 % (32.4-45.2) L 06/25/19 08:09 MCV 71.9 fl (80-96) L 06/25/19 08:09 MCHC 32.5 g/dl (32.0-36.0) 06/25/19 08:09 RDW 16.7 % (11.6-15.6) H 06/25/19 08:09 Plt Count 240 K/MM3 (134-434) 06/25/19 08:09 MPV 9.1 fl (7.5-11.1) 06/25/19 08:09 CMP Sodium 138 mmol/L (136-145) 06/27/19 08:30 Potassium 4.2 mmol/L (3.5-5.1) 06/27/19 08:30 Chloride 104 mmol/L (98-107) 06/27/19 08:30 Carbon Dioxide 28 mmol/L (21-32) 06/27/19 08:30 Anion Gap 7 MMOL/L (8-16) L 06/27/19 08:30 BUN 18.4 mg/dL (7-18) H 06/27/19 08:30 Creatinine 0.7 mg/dL (0.55-1.3) 06/27/19 08:30 Random Glucose 139 mg/dL (74-106) H 06/27/19 08:30 Calcium 8.4 mg/dL (8.5-10.1) L 06/27/19 08:30 Total Bilirubin 0.8 mg/dL (0.2-1) 06/19/19 07:57 AST 11 U/L (15-37) L 06/19/19 07:57 ALT 7 U/L (13-61) L 06/19/19 07:57 Alkaline Phosphatase 75 U/L (45-117) 06/19/19 07:57 Total Protein 6.7 g/dl (6.4-8.2) 06/19/19 07:57 Albumin 2.8 g/dl (3.4-5.0) L 06/19/19 07:57 CARDIAC ENZYMES Creatine Kinase 281 U/L (26-192) H 06/04/19 06:30 Troponin I < 0.02 ng/ml (0.00-0.05) 06/01/19 04:07 ASSESSMENT/PLAN: Ms. Prescott is an 79 year old female with PMH of Parkinson Disease and dementia who was BIBEMS with AMS x4 days at time of admission. Daughter was at bedside and that time and provided history. Pt lives at home (no CIGARETTE SELLER or VNS) with daughter as primary ordnance handler. At baseline she is non-ambulatory and mental status changes from day to day (some days she is alert and oriented, can speak sentences, other days she does not speak at all). Pt has had a productive cough of yellow sputum for 4 days before day of admission and has become increasingly confused and somnolent. Decreased appetite, unable to eat or drink anything. On day of admission, she was not responding at all and had a low grade fever. Daughter stated that pt has not complained of any symptoms (chest pain, abd pain , SOB, urinary complaints). On arrival to ED, pt was hypoxic in the 80s. Patient consulted for altered mental status. Ct of head reviewed and showed no evidence of a focal intracranial lesion or hemorrhage completed on 06/01 at the time of admission. Patient downgraded from ICU and currently on telemetry floor. Patient status post PEG tube placement and no issues with PEG per notes. Weekend events reviewed, no neurologic changes. Patient appears to be stable at this time.
[2019-06-29] MEDS: RIVASTIGMINE 4.6 MG/24 HOURS TRANSDERMAL PATCH TD SCH (09:53)
[2019-06-29] MEDS: MORPHINE SULFATE 2 MG/ML VIAL IVPUSH PRN ×3 (09:54→23:09)
[2019-06-29] MEDS: PATIENT'S OWN MEDICATION (NON-FORMULARY) (Rotigotine [Neupro] 1 EACH) TD SCH (09:54)
[2019-06-29] MEDS: AMOX TR/POTASSIUM CLAVULANATE 600 MG/5 ML PEG SCH ×2 (10:18→18:21)
[2019-06-29] MEDS: FAMOTIDINE 40 MG/5 ML ORAL SUSPENSION PO SCH ×2 (10:19→23:33)
--- NOTE | 2019-06-29 11:03 | PN ---
Progress Note (short form) - Note Progress Note: Patient nonverbal. No fevers recorded. No acute events overnight. Intake & Output 06/26/19 06/27/19 06/28/19 06/29/19 23:59 23:59 23:59 23:59 Intake Total 840 1880 0 0 Output Total 800 1600 300 Balance 40 280 -300 0 Last Vital Signs Temp Pulse Resp BP Pulse Ox 99.0 F 104 H 20 113/44 L 98 06/29/19 06:00 06/29/19 06:00 06/29/19 06:00 06/29/19 06:00 06/29/19 01:00 Active Medications Acetaminophen (Tylenol Oral Solution -) 650 mg PO Q6H PRN PRN Reason: pain 1-5 Albuterol Sulfate (Ventolin 0.083% Nebulizer Soln -) 1 amp NEB Q8H PRN PRN Reason: SHORT OF BREATH/WHEEZING Amoxicillin/Clavulanate Potassium (Augmentin 600 Mg/5 Ml Oral Suspension -) 600 mg PEG BID@0800,1730 [facility] Stop: 07/02/19 17:29 Last Admin: 06/29/19 10:18 Dose: 5 ml Carbidopa/Levodopa (Sinemet 25/100 -) 2 each PO TID@0700,1200,1900 [facility] Last Admin: 06/29/19 06:50 Dose: 2 each Famotidine (Pepcid) 20 mg PO BID [facility] Last Admin: 06/29/19 10:19 Dose: 20 mg Heparin Sodium (Porcine) (Heparin -) 5,000 unit SQ TID [facility] Last Admin: 06/29/19 06:50 Dose: 5,000 unit Insulin Aspart (Novolog Vial Sliding Scale -) 1 vial SQ HS [facility]; Protocol Last Admin: 06/28/19 22:00 Dose: Not Given Morphine Sulfate (Morphine Sulfate) 1 mg IVPUSH Q6H PRN PRN Reason: PAIN LEVEL 6-10 Last Admin: 06/29/19 09:54 Dose: 1 mg Non-Formulary Medication (Rotigotine [Neupro]) 1 each TD DAILY [facility] Last Admin: 06/29/19 09:54 Dose: 1 each Rivastigmine (Exelon Patch 4.6mg/24 Hours -) 1 each TD DAILY [facility] Last Admin: 06/29/19 09:53 Dose: 1 each Gen: NAD at rest Heart: RRR Lung: scattered rhonchi Abd: soft, nontender Ext: no edema Laboratory Results - last 24 hr 06/28/19 21:59 POC Glucometer 134 A/P Acute Hypercapneic Respiratory Failure improving Pneumonia likely Aspiration Sepsis Lactic Acidosis Acute Kidney Injury HTN DM Parkinsons Dementia Anemia - Augmentin - inhaled bronchodilators - o2 to keep SpO2 >90% - enteral feeds - aspiration precautions - DVT prophylaxis - d/c planning Dr Collins
[2019-06-29 11:20] LABS: HEMATOCRIT 30.3 % (32.4-45.2); HEMOGLOBIN 9.6 GM/dL (10.7-15.3); MCH 23.3 pg (25.7-33.7); MCHC 31.9 g/dl (32.0-36.0); MEAN PLT VOLUME 8.5 fl (7.5-11.1); PLATELET COUNT 299 K/MM3 (134-434); RBC 4.15 M/mm3 (3.60-5.2); RDW 16.9 % (11.6-15.6); WHITE BLOOD COUNT 11.4 K/mm3 (4.0-10.0)
[2019-06-29 11:49] LABS: ALBUMIN 2.7 g/dl (3.4-5.0); BILIRUBIN,TOTAL 0.4 mg/dL (0.2-1); BLOOD UREA NITROGEN 21.6 mg/dL (7-18); CALCIUM 8.7 mg/dL (8.5-10.1); CREATININE 0.7 mg/dL (0.55-1.3); MAGNESIUM 2.3 mg/dL (1.8-2.4); PHOSPHOROUS 3.7 mg/dL (2.5-4.9); POTASSIUM 4.3 mmol/L (3.5-5.1); TOT PROT 6.8 g/dl (6.4-8.2)
--- NOTE | 2019-06-29 15:29 | PN ---
Progress Note (short form) - Note Progress Note: Attending Surgeon POD#10 Seen f/u s/p excisional debridement unstageable sacral decubitus ulcer 2019 and subsequent VAC placement 48 hours after. Wound is open an granulating; small area of ? viable fascia over the bone; wound edges are viable; o/w unremarkable. Continue present tx. Edu Hansen MD FACS
--- NOTE | 2019-06-29 15:39 | PN ---
Teaching Attending Note Name of Resident: Miguel A Stovall ATTENDING PHYSICIAN STATEMENT I saw and evaluated the patient. I reviewed the resident's note and discussed the case with the resident. I agree with the resident's findings and plan as documented. SUBJECTIVE: Patient is comfortable, answering questions today, this was the 1st time. Vital Signs Temperature 98.3 F 06/29/19 10:00 Pulse Rate 88 06/29/19 10:00 Respiratory Rate 20 06/29/19 10:00 Blood Pressure 148/64 06/29/19 10:00 O2 Sat by Pulse Oximetry (%) 98 06/29/19 09:00 GENERAL: The patient is awake, with no acute distress. HEAD: Normal with no signs of trauma. EYES: PERRL, extraocular movements intact, sclera anicteric, conjunctiva clear. ENT: Ears normal, oropharynx clear without exudates, moist mucous membranes. NECK: Trachea midline, full range of motion, supple. LUNGS: Breath sounds equal, clear to auscultation bilaterally, no wheezes, no crackles, no accessory muscle use. HEART: Regular rate and rhythm, S1, S2 without murmur, rub or gallop. ABDOMEN: Soft, nontender, nondistended, normoactive bowel sounds, no guarding, no rebound, no hepatosplenomegaly, no masses. EXTREMITIES: 2+ pulses, warm, well-perfused, no edema. NEUROLOGICAL: Cranial nerves II through XII grossly intact. gait not observed. SKIN: Warm, dry, normal turgor, no rashes or lesions noted Decubitus Ulcer: unstageable sacral decubitus ulcer s/p debridment and wound vac in place. CBCD WBC 11.4 K/mm3 (4.0-10.0) H 06/29/19 10:25 RBC 4.15 M/mm3 (3.60-5.2) 06/29/19 10:25 Hgb 9.6 GM/dL (10.7-15.3) L 06/29/19 10:25 Hct 30.3 % (32.4-45.2) L 06/29/19 10:25 MCV 73.0 fl (80-96) L 06/29/19 10:25 MCHC 31.9 g/dl (32.0-36.0) L 06/29/19 10:25 RDW 16.9 % (11.6-15.6) H 06/29/19 10:25 Plt Count 299 K/MM3 (134-434) D 06/29/19 10:25 MPV 8.5 fl (7.5-11.1) 06/29/19 10:25 CMP Sodium 134 mmol/L (136-145) L 06/29/19 10:25 Potassium 4.3 mmol/L (3.5-5.1) 06/29/19 10:25 Chloride 100 mmol/L (98-107) 06/29/19 10:25 Carbon Dioxide 26 mmol/L (21-32) 06/29/19 10:25 Anion Gap 8 MMOL/L (8-16) 06/29/19 10:25 BUN 21.6 mg/dL (7-18) H 06/29/19 10:25 Creatinine 0.7 mg/dL (0.55-1.3) 06/29/19 10:25 Random Glucose 115 mg/dL (74-106) H 06/29/19 10:25 Calcium 8.7 mg/dL (8.5-10.1) 06/29/19 10:25 Total Bilirubin 0.4 mg/dL (0.2-1) 06/29/19 10:25 AST 27 U/L (15-37) 06/29/19 10:25 ALT 11 U/L (13-61) L 06/29/19 10:25 Alkaline Phosphatase 85 U/L (45-117) 06/29/19 10:25 Total Protein 6.8 g/dl (6.4-8.2) 06/29/19 10:25 Albumin 2.7 g/dl (3.4-5.0) L 06/29/19 10:25 CARDIAC ENZYMES Creatine Kinase 281 U/L (26-192) H 06/04/19 06:30 Troponin I < 0.02 ng/ml (0.00-0.05) 06/01/19 04:07 Current Medications Generic Name Dose Route Start Last Admin Trade Name Freq PRN Reason Stop Dose Admin Acetaminophen 650 mg 06/27/19 17:23 Tylenol Oral Solution - PO Q6H PRN pain 1-5 Albuterol Sulfate 1 amp 06/27/19 17:22 Ventolin 0.083% Nebulizer Soln - NEB Q8H PRN SHORT OF BREATH/WHEEZING Amoxicillin/Clavulanate Potassium 600 mg 06/25/19 17:30 06/29/19 10:18 Augmentin 600 Mg/5 Ml Oral Suspension - PEG 07/02/19 17:29 5 ml BID@0800,1730 [facility] Administration Carbidopa/Levodopa 2 each 06/19/19 19:00 06/29/19 12:50 Sinemet 25/100 - PO 2 each TID@0700,1200,1900 [facility] Administration Famotidine 20 mg 06/19/19 22:00 06/29/19 10:19 Pepcid PO 20 mg BID [facility] Administration Heparin Sodium (Porcine) 5,000 unit 06/19/19 14:00 06/29/19 15:30 Heparin - SQ 5,000 unit TID [facility] Administration Insulin Aspart 1 vial 06/26/19 16:45 06/28/19 22:00 Novolog Vial Sliding Scale - SQ Not Given HS [facility] Protocol Morphine Sulfate 1 mg 06/27/19 17:22 06/29/19 09:54 Morphine Sulfate IVPUSH 1 mg Q6H PRN Administration PAIN LEVEL 6-10 Non-Formulary Medication 1 each 06/20/19 10:00 06/29/19 09:54 Rotigotine [Neupro] TD 1 each DAILY [facility] Administration Rivastigmine 1 each 06/20/19 10:00 06/29/19 09:53 Exelon Patch 4.6mg/24 Hours - TD 1 each DAILY [facility] Administration Home Medications Medication Instructions Recorded Ca/D3/Mag Ox/Zinc/Crusher/Ketan/Bor 1 each PO HS 04/13/18 [Calcium 600-D3 Plus Caplet] Carbidopa/Levodopa [Carbidopa-Levo 1 each PO TID 04/13/18 ER 50-200 Tab] Aspirin 81 mg PO DAILY 06/01/19 Melatonin 5 mg PO HS 06/01/19 Olanzapine [Zyprexa -] 7.5 mg PO DAILY 06/01/19 Omeprazole 20 mg PO DAILY 06/01/19 Rivastigmine [Exelon Patch 1 each TD DAILY 06/01/19 4.6MG/24 Hours -] Rotigotine [Neupro] 1 each TD DAILY 06/01/19 Amox-Tr/K Cl [Augmentin 400 mg/5 7.5 ml GT BID 3 Days #100 ml 06/29/19 ml Oral Suspension -] Microbiology 06/22/19 11:40 Blood - Peripheral Venous Blood Culture - Final NO GROWTH AFTER 5 DAYS INCUBATION 06/22/19 11:35 Blood - Peripheral Venous Blood Culture - Final NO GROWTH AFTER 5 DAYS INCUBATION 06/03/19 11:40 Blood - Peripheral Venous Blood Culture - Final NO GROWTH AFTER 5 DAYS INCUBATION 06/03/19 12:00 Blood - Peripheral Venous Blood Culture - Final NO GROWTH AFTER 5 DAYS INCUBATION 06/04/19 06:20 Sputum - Oropharynx Suctioned Sputum Gram Stain - Final 06/04/19 06:20 Sputum - Oropharynx Suctioned Sputum Sputum Culture - Final Yeast Like Organism 06/01/19 00:00 Blood - Peripheral Venous Blood Culture - Final NO GROWTH AFTER 5 DAYS INCUBATION 06/01/19 00:00 Blood - Peripheral Venous Blood Culture - Final Staph Capitis Subsp Ureolyticu 06/01/19 03:00 Urine For Antigen Detection Legionella Antigen - Final 06/01/19 03:00 Urine For Antigen Detection Streptococcus pneumoniae Antigen (M - Final 06/01/19 01:20 Urine - Urine - Catheterized Urine Culture - Final NO GROWTH OBTAINED ASSESSMENT AND PLAN: Patient is an 79yof with PMhx Parkinson Disease and dementia who presented with AMS. # s/p PEG placement continue feeding tube # Acute hypercapnic resp failure. Resolved. # Aspiration PNA cont zosyn, blood cx ngtd # JOS: resolved # Rhabdo : resolved # Thrombocytopenia: resolved # h/o HTN # h/o DM cont SSI # AMS: acute metabolic encephalopathy . Improved # h/o dementia # Microcytic anemia # contaminant blood cx # Unstageable sacral decub ulcer , s/p debridment 06/20 ,wound vac application continue, follow with dr. Hansen upon discharge for wound care #Parkinsonism: cont Sinemet DVT :heparin sq no new changes waitng for SW arrangment for dc
--- NOTE | 2019-06-29 16:09 | PN ---
Physical Exam: SUBJECTIVE: Patient seen and examined NAEON Soft moaning. OBJECTIVE: Vital Signs Period Temp Pulse Resp BP Sys/Campbell Pulse Ox Last 24 Hr 98.3 F-99.9 F 88-104 20-20 104-148/44-71 98-98 GENERAL: Lethargic. Soft moaning to questioning HEAD: NC/AT EYES: extraocular movements tracking movement briefly, sclera anicteric, conjunctiva clear. No ptosis. ENT: Ears normal, nares patent. NECK: Trachea midline, full range of motion, supple. LUNGS: Breath sounds equal, mildly coarse BS w/ wheezes bilaterally. Breathing on RA HEART: Regular rate and rhythm, S1, S2 without murmur, rub or gallop. ABDOMEN: Soft, nontender, nondistended, normoactive bowel sounds, no guarding, no rebound. PEG in Left-sided abd. TF running. SACRUM: sacral wound with overlying wound VAC, with SS drainage in canister EXTREMITIES: 2+ pulses, warm, well-perfused, no edema. BLE with nonpitting edema. DP2+ b/l NEUROLOGICAL: slightly opening eyes to loud questioning/pain, withdrawing BUE and BLE to painful stimuli. Lifting arms intermittently. Not responding to questioning SKIN: Warm, dry, normal turgor, no rashes or lesions noted Laboratory Results - last 24 hr 06/28/19 06/29/19 06/29/19 21:59 10:25 10:25 WBC 11.4 H RBC 4.15 Hgb 9.6 L Hct 30.3 L MCV 73.0 L MCH 23.3 L MCHC 31.9 L RDW 16.9 H Plt Count 299 D MPV 8.5 Sodium 134 L Potassium 4.3 Chloride 100 Carbon Dioxide 26 Anion Gap 8 BUN 21.6 H Creatinine 0.7 Est GFR (CKD-EPI)AfAm 94.18 Est GFR (CKD-EPI)NonAf 81.26 POC Glucometer 134 Random Glucose 115 H Calcium 8.7 Phosphorus 3.7 Magnesium 2.3 Total Bilirubin 0.4 AST 27 ALT 11 L Alkaline Phosphatase 85 Total Protein 6.8 Albumin 2.7 L Active Medications Generic Name Dose Route Start Last Admin Trade Name Freq PRN Reason Stop Dose Admin Acetaminophen 650 mg 06/27/19 17:23 Tylenol Oral Solution - PO Q6H PRN pain 1-5 Albuterol Sulfate 1 amp 06/27/19 17:22 Ventolin 0.083% Nebulizer Soln - NEB Q8H PRN SHORT OF BREATH/WHEEZING Amoxicillin/Clavulanate Potassium 600 mg 06/25/19 17:30 06/29/19 10:18 Augmentin 600 Mg/5 Ml Oral Suspension - PEG 07/02/19 17:29 5 ml BID@0800,1730 [facility] Administration Carbidopa/Levodopa 2 each 06/19/19 19:00 06/29/19 12:50 Sinemet 25/100 - PO 2 each TID@0700,1200,1900 [facility] Administration Famotidine 20 mg 06/19/19 22:00 06/29/19 10:19 Pepcid PO 20 mg BID [facility] Administration Heparin Sodium (Porcine) 5,000 unit 06/19/19 14:00 06/29/19 15:30 Heparin - SQ 5,000 unit TID [facility] Administration Insulin Aspart 1 vial 06/26/19 16:45 06/28/19 22:00 Novolog Vial Sliding Scale - SQ Not Given HS [facility] Protocol Morphine Sulfate 1 mg 06/27/19 17:22 06/29/19 09:54 Morphine Sulfate IVPUSH 1 mg Q6H PRN Administration PAIN LEVEL 6-10 Non-Formulary Medication 1 each 06/20/19 10:00 06/29/19 09:54 Rotigotine [Neupro] TD 1 each DAILY [facility] Administration Rivastigmine 1 each 06/20/19 10:00 06/29/19 09:53 Exelon Patch 4.6mg/24 Hours - TD 1 each DAILY [facility] Administration ASSESSMENT/PLAN: 79y/o female with Parkinson's and dementia who presents with AMS and cough x 4 days. At baseline she is non-ambulatory and mental status changes from day to day (some days she is alert and oriented, can speak sentences, other days she does not speak at all). Admitted for AMS. Likely aspiration PNA. Pt was hypoxic to the 80s at ED presentation. Intubated for increased work of breathing. Flu negative. Atelectasis vs infiltrate at Left base. Extubated on 06/09. Repeat CTH on 06/11/19 by Neuro, w/o significant interval change; possibly chronic and superimposed sinusitis of Left maxillary antrum and sphenoid sinus. Daughter expresses desire to avoid PEG, has strong belief that optimization of Parkinson' s and Dementia drugs will help pt resolve AMS. Received zosyn x8d(06/01 -06/13) for possible aspiration PNA. Failing bedside S&S evaluation. TF via NGT. Solumedrol stopped on 06/15/19. IR(Carmencita) consult for possible PEG. Sacral wound worsening which prompted Sacral Decubitus Wound Debridement(Hansen, ). Having fevers, possibly from Left-sided infiltrate vs sacral wound infection. Sacral wound has been VAC'd. s/p IR PEG 06/23/19. Awaiting home setup( low air loss mattress, requiring frequent body position changes, which she cannot complete independently and are not feasible w/ a regular bed to alleviate pain, prevent aspiration, and prevent further skin breakdown(Right buttock w/ unstageable pressure ulcer, Left buttock healed pressure injury(4x2cm )) prior to discharge. #acute hypoxic respiratory failure 2/2 multilobar PNA and sepsis -CXR improved post-intubation > CXR(06/08/19): Left base w/ minimal atelectasis, sharp rib angles > CXR(06/21/19): L-base w/ atelectasis vs infiltrate > flu: negative > Echo: normal EF, impaired relaxation, elevated filling pressures, TR, MR -Ventolin TID -solumedrol 20mg IVP BID --> 20mg IVP QD --> stopped -zosyn 3.375g Q8H --for PNA vs infected sacral wound -ID(Valentino) consult: --resumed Zosyn on 06/22/19 --Augmentin PEG BID, x7d (06/25 --) -Pulm(Jourdan) consult: --taper medrol --stopped on 06/15/19 #AMS: toxic metabolic encephalopathy vs less likely CVA -CT head negative for acute processes -CT H(06/11/19): no significant change, possible chronic/superimposed Left maxillary sinusitis -urine cx negative -blood cx(06/01/19): Staph coag negative in 1 bottle --likely contaminant -blood cx(06/03/19): NGTD -sputum cx(06/04/19): yeast-like -blood cx(06/22/19): NGTD -dietary following -speech following #inability to tolerate PO --2/2 AMS -NGT feeds(Glucerna) -PEG(Aaron-DiGiorno) evaluation --will defer to IR -IR(Karen) evaluation: placed 06/23/19 --ok for tube feeds #sacral decubitus ulcer -surgery(Jacob Estrada) consulted --Reposition every two hours while in bed --Air mattress recommended --Use drawsheets and Trendelenburg when repositioning to reduce friction and shear --Manageincontinence via timely cleansing, use of appropriate incontinence disposables and use of barrier ointment to intact skin --Ensure adequate hydration/nutrition, supplementation per primary team --Ensure off-loading to all bony areas (heels, ankles, hips and tailbone) with Allevyn/Optifoam --Clean open wounds with normal saline and apply bacitracin -Surgery(Jade): --debridement 06/19/19 #leukocytosis -from infection vs steroid use -mild improvement continues -continue monitor #JOS, resolved -nephro following -Cardio following --diovan held --BP stable #anemia of chronic disease -microcytosis but low TIBC, unsaturated IBC, and high ferritin #Parkinson's and dementia -continue Sinimet, modified dose for NG tube, @0700, 1200, 1900 -rivostigmine patch -rotigotine patch #mild hypophosphatemia, resolved #lactic acidosis, resolved #transaminitis, improved DVT ppx SQH GI ppx protonix FEN monitor labs NG feeds: Glucerna through PEG Visit type - Emergency Visit Emergency Visit: No - New Patient This patient is new to me today: No - Critical Care Critical Care patient: No ATTENDING PHYSICIAN STATEMENT I saw and evaluated the patient. I reviewed the resident's note and discussed the case with the resident. I agree with the resident's findings and plan as documented. SUBJECTIVE: OBJECTIVE: ASSESSMENT AND PLAN:
--- NOTE | 2019-06-29 17:05 | PN ---
Progress Note (short form) - Note Progress Note: s: awake, alert, confused, appears comfortable Current Medications Acetaminophen (Tylenol Oral Solution -) 650 mg PO Q6H PRN PRN Reason: pain 1-5 Albuterol Sulfate (Ventolin 0.083% Nebulizer Soln -) 1 amp NEB Q8H PRN PRN Reason: SHORT OF BREATH/WHEEZING Amoxicillin/Clavulanate Potassium (Augmentin 600 Mg/5 Ml Oral Suspension -) 600 mg PEG BID@0800,1730 [facility] Stop: 07/02/19 17:29 Last Admin: 06/29/19 10:18 Dose: 5 ml Carbidopa/Levodopa (Sinemet 25/100 -) 2 each PO TID@0700,1200,1900 [facility] Last Admin: 06/29/19 12:50 Dose: 2 each Famotidine (Pepcid) 20 mg PO BID [facility] Last Admin: 06/29/19 10:19 Dose: 20 mg Heparin Sodium (Porcine) (Heparin -) 5,000 unit SQ TID [facility] Last Admin: 06/29/19 15:30 Dose: 5,000 unit Insulin Aspart (Novolog Vial Sliding Scale -) 1 vial SQ HS [facility]; Protocol Last Admin: 06/28/19 22:00 Dose: Not Given Morphine Sulfate (Morphine Sulfate) 1 mg IVPUSH Q6H PRN PRN Reason: PAIN LEVEL 6-10 Last Admin: 06/29/19 16:14 Dose: 1 mg Non-Formulary Medication (Rotigotine [Neupro]) 1 each TD DAILY [facility] Last Admin: 06/29/19 09:54 Dose: 1 each Rivastigmine (Exelon Patch 4.6mg/24 Hours -) 1 each TD DAILY [facility] Last Admin: 06/29/19 09:53 Dose: 1 each Vital Signs Period Temp Pulse Resp BP Sys/Campbell Pulse Ox Last 24 Hr 98.3 F-99.9 F 88-104 20-20 104-148/44-71 98-98 Constitutional: Yes: No Distress, Calm Neck: Yes: Supple, Trachea Midline Respiratory: Yes: Regular, Diminished Gastrointestinal: Yes: Normal Bowel Sounds, Soft Cardiovascular: Yes: Regular Rate and Rhythm JVD: No Extremities: No: Cold Edema: No Integumentary: No: Jaundice Neurological: Yes: awake alert confused Psychiatric: No: Agitated echo 05/2019 nl LV/RV function, impaired relaxation, elevated filling pressures, RV not well visualized, mild to mod MR, mild mod TR CXR: no congestion/effusions (+ atx) PNA, sepsis, acute respiratory failure 2/ suspected aspiration: - manage per critical care, ID; - intubated after suspected aspiration event, now extubated - nl LV function on echo HTN: - stable off meds DM: - manage per primary dementia, parkinson's: - manage per primary - now s/p peg JOS, rhabdo: - renal fxn improved
[2019-06-29] MEDS: INSULIN SLIDING SCALE (NOVOLOG) 1 VIAL SQ SCH (23:28)
[2019-06-30] MEDS: CARBIDOPA/LEVODOPA 25/100 TABLET (FP) PO SCH ×3 (06:17→19:04)
[2019-06-30] MEDS: HEPARIN NA (PORCINE) 5,000 UNITS/ML 1ML VIAL SQ SCH ×2 (06:18→14:44)
[2019-06-30] MEDS ORDERED: PT OWN MED DRAWER 7, Y5N ONE ×4 (09:00→21:05)
[2019-06-30] MEDS: FAMOTIDINE 40 MG/5 ML ORAL SUSPENSION PO SCH ×2 (09:05→21:12)
[2019-06-30] MEDS: PATIENT'S OWN MEDICATION (NON-FORMULARY) (Rotigotine [Neupro] 1 EACH) TD SCH (09:05)
[2019-06-30] MEDS: BACITRACIN 15 GM TUBE TOPICAL OINTMENT TP SCH (09:06)
[2019-06-30] MEDS: RIVASTIGMINE 4.6 MG/24 HOURS TRANSDERMAL PATCH TD SCH (09:54)
[2019-06-30] MEDS: AMOX TR/POTASSIUM CLAVULANATE 600 MG/5 ML PEG SCH ×3 (12:14→21:10)
--- NOTE | 2019-06-30 12:36 | PN ---
Progress Note (short form) - Note Progress Note: s: awake, alert, answering questions today. no chest pain, dyspnea Current Medications Acetaminophen (Tylenol Oral Solution -) 650 mg PO Q6H PRN PRN Reason: pain 1-5 Last Admin: 06/29/19 23:33 Dose: 650 mg Albuterol Sulfate (Ventolin 0.083% Nebulizer Soln -) 1 amp NEB Q8H PRN PRN Reason: SHORT OF BREATH/WHEEZING Amoxicillin/Clavulanate Potassium (Augmentin 600 Mg/5 Ml Oral Suspension -) 600 mg PEG BID@0800,1730 [facility] Stop: 07/02/19 17:29 Last Admin: 06/30/19 12:14 Dose: 5 ml Bacitracin (Bacitracin -) 1 applic TP TUTA [facility] Last Admin: 06/30/19 09:06 Dose: Not Given Carbidopa/Levodopa (Sinemet 25/100 -) 2 each PO TID@0700,1200,1900 [facility] Last Admin: 06/30/19 12:14 Dose: 2 each Famotidine (Pepcid) 20 mg PO BID [facility] Last Admin: 06/30/19 09:05 Dose: 20 mg Heparin Sodium (Porcine) (Heparin -) 5,000 unit SQ TID [facility] Last Admin: 06/30/19 06:18 Dose: 5,000 unit Insulin Aspart (Novolog Vial Sliding Scale -) 1 vial SQ HS [facility]; Protocol Last Admin: 06/29/19 23:28 Dose: Not Given Morphine Sulfate (Morphine Sulfate) 1 mg IVPUSH Q6H PRN PRN Reason: PAIN LEVEL 6-10 Last Admin: 06/29/19 23:09 Dose: 1 mg Non-Formulary Medication (Rotigotine [Neupro]) 1 each TD DAILY [facility] Last Admin: 06/30/19 09:05 Dose: 1 each Rivastigmine (Exelon Patch 4.6mg/24 Hours -) 1 each TD DAILY [facility] Last Admin: 06/30/19 09:54 Dose: 1 each Vital Signs Period Temp Pulse Resp BP Sys/Campbell Pulse Ox Last 24 Hr 98.0 F-100.8 F 66-105 20-20 96-122/42-75 95-95 Constitutional: Yes: No Distress, Calm Neck: Yes: Supple, Trachea Midline Respiratory: Yes: Regular, Diminished Gastrointestinal: Yes: Normal Bowel Sounds, Soft Cardiovascular: Yes: Regular Rate and Rhythm JVD: No Extremities: No: Cold Edema: No Integumentary: No: Jaundice Neurological: Yes: awake alert confused Psychiatric: No: Agitated echo 05/2019 nl LV/RV function, impaired relaxation, elevated filling pressures, RV not well visualized, mild to mod MR, mild mod TR CXR: no congestion/effusions (+ atx) PNA, sepsis, acute respiratory failure 2/2 suspected aspiration: - manage per primary, ID - nl LV function on echo HTN: - stable off meds DM: - manage per primary dementia, parkinson's: - manage per primary - now s/p peg - mental status improving JOS, rhabdo: - renal fxn improved
--- NOTE | 2019-06-30 12:43 | PN ---
Progress Note (short form) - Note Progress Note: NAD on RA. No fevers recorded. No acute events overnight. Intake & Output 06/27/19 06/28/19 06/29/19 06/30/19 23:59 23:59 23:59 23:59 Intake Total 1880 0 320 640 Output Total 1600 300 1 Balance 280 -300 319 640 Last Vital Signs Temp Pulse Resp BP Pulse Ox 99 F 85 20 120/42 L 95 06/30/19 09:33 06/30/19 09:12 06/30/19 09:12 06/30/19 09:12 06/30/19 01:00 Active Medications Acetaminophen (Tylenol Oral Solution -) 650 mg PO Q6H PRN PRN Reason: pain 1-5 Last Admin: 06/29/19 23:33 Dose: 650 mg Albuterol Sulfate (Ventolin 0.083% Nebulizer Soln -) 1 amp NEB Q8H PRN PRN Reason: SHORT OF BREATH/WHEEZING Amoxicillin/Clavulanate Potassium (Augmentin 600 Mg/5 Ml Oral Suspension -) 600 mg PEG BID@0800,1730 [facility] Stop: 07/02/19 17:29 Last Admin: 06/30/19 12:14 Dose: 5 ml Bacitracin (Bacitracin -) 1 applic TP TUTHSA [facility] Last Admin: 06/30/19 09:06 Dose: Not Given Carbidopa/Levodopa (Sinemet 25/100 -) 2 each PO TID@0700,1200,1900 [facility] Last Admin: 06/30/19 12:14 Dose: 2 each Famotidine (Pepcid) 20 mg PO BID [facility] Last Admin: 06/30/19 09:05 Dose: 20 mg Heparin Sodium (Porcine) (Heparin -) 5,000 unit SQ TID [facility] Last Admin: 06/30/19 06:18 Dose: 5,000 unit Insulin Aspart (Novolog Vial Sliding Scale -) 1 vial SQ HS [facility]; Protocol Last Admin: 06/29/19 23:28 Dose: Not Given Morphine Sulfate (Morphine Sulfate) 1 mg IVPUSH Q6H PRN PRN Reason: PAIN LEVEL 6-10 Last Admin: 06/29/19 23:09 Dose: 1 mg Non-Formulary Medication (Rotigotine [Neupro]) 1 each TD DAILY [facility] Last Admin: 06/30/19 09:05 Dose: 1 each Rivastigmine (Exelon Patch 4.6mg/24 Hours -) 1 each TD DAILY [facility] Last Admin: 06/30/19 09:54 Dose: 1 each Gen: NAD at rest Heart: RRR Lung: scattered rhonchi Abd: soft, nontender Ext: no edema Laboratory Results - last 24 hr 06/29/19 23:24 POC Glucometer 134 A/P Acute Hypercapneic Respiratory Failure improving Pneumonia likely Aspiration Sepsis Lactic Acidosis Acute Kidney Injury HTN DM Parkinsons Dementia Anemia - Augmentin - inhaled bronchodilators - o2 to keep SpO2 >90% - enteral feeds - aspiration precautions - DVT prophylaxis - d/c planning Dr Collins
--- NOTE | 2019-06-30 17:06 | PN ---
Teaching Attending Note Name of Resident: Miguel A Stovall ATTENDING PHYSICIAN STATEMENT I saw and evaluated the patient. I reviewed the resident's note and discussed the case with the resident. I agree with the resident's findings and plan as documented. SUBJECTIVE: Patient responds to a regular conversation, feeling better states when you ask her how she is doing? Vital Signs Temperature 99 F 06/30/19 09:33 Pulse Rate 84 06/30/19 14:00 Respiratory Rate 20 06/30/19 14:00 Blood Pressure 108/70 06/30/19 14:00 O2 Sat by Pulse Oximetry (%) 95 06/30/19 01:00 GENERAL: The patient is awake, with no acute distress. HEAD: Normal with no signs of trauma. EYES: PERRL, extraocular movements intact, sclera anicteric, conjunctiva clear. ENT: Ears normal, oropharynx clear without exudates, moist mucous membranes. NECK: Trachea midline, full range of motion, supple. LUNGS: Breath sounds equal, clear to auscultation bilaterally, no wheezes, no crackles, no accessory muscle use. HEART: Regular rate and rhythm, S1, S2 without murmur, rub or gallop. ABDOMEN: Soft, nontender, nondistended, normoactive bowel sounds, +peg EXTREMITIES: 2+ pulses, warm, well-perfused, no edema. NEUROLOGICAL: Cranial nerves II through XII grossly intact. gait not observed. SKIN: Warm, dry, normal turgor, no rashes or lesions noted Decubitus Ulcer: unstageable sacral decubitus ulcer s/p debridment and wound vac in place. CBCD WBC 11.4 K/mm3 (4.0-10.0) H 06/29/19 10:25 RBC 4.15 M/mm3 (3.60-5.2) 06/29/19 10:25 Hgb 9.6 GM/dL (10.7-15.3) L 06/29/19 10:25 Hct 30.3 % (32.4-45.2) L 06/29/19 10:25 MCV 73.0 fl (80-96) L 06/29/19 10:25 MCHC 31.9 g/dl (32.0-36.0) L 06/29/19 10:25 RDW 16.9 % (11.6-15.6) H 06/29/19 10:25 Plt Count 299 K/MM3 (134-434) D 06/29/19 10:25 MPV 8.5 fl (7.5-11.1) 06/29/19 10:25 CMP Sodium 134 mmol/L (136-145) L 06/29/19 10:25 Potassium 4.3 mmol/L (3.5-5.1) 06/29/19 10:25 Chloride 100 mmol/L (98-107) 06/29/19 10:25 Carbon Dioxide 26 mmol/L (21-32) 06/29/19 10:25 Anion Gap 8 MMOL/L (8-16) 06/29/19 10:25 BUN 21.6 mg/dL (7-18) H 06/29/19 10:25 Creatinine 0.7 mg/dL (0.55-1.3) 06/29/19 10:25 Random Glucose 115 mg/dL (74-106) H 06/29/19 10:25 Calcium 8.7 mg/dL (8.5-10.1) 06/29/19 10:25 Total Bilirubin 0.4 mg/dL (0.2-1) 06/29/19 10:25 AST 27 U/L (15-37) 06/29/19 10:25 ALT 11 U/L (13-61) L 06/29/19 10:25 Alkaline Phosphatase 85 U/L (45-117) 06/29/19 10:25 Total Protein 6.8 g/dl (6.4-8.2) 06/29/19 10:25 Albumin 2.7 g/dl (3.4-5.0) L 06/29/19 10:25 CARDIAC ENZYMES Creatine Kinase 281 U/L (26-192) H 06/04/19 06:30 Troponin I < 0.02 ng/ml (0.00-0.05) 06/01/19 04:07 Current Medications Generic Name Dose Route Start Last Admin Trade Name Freq PRN Reason Stop Dose Admin Acetaminophen 650 mg 06/27/19 17:23 06/29/19 23:33 Tylenol Oral Solution - PO 650 mg Q6H PRN Administration pain 1-5 Albuterol Sulfate 1 amp 06/27/19 17:22 Ventolin 0.083% Nebulizer Soln - NEB Q8H PRN SHORT OF BREATH/WHEEZING Amoxicillin/Clavulanate Potassium 600 mg 06/25/19 17:30 06/30/19 12:14 Augmentin 600 Mg/5 Ml Oral Suspension - PEG 07/02/19 17:29 5 ml BID@0800,1730 [facility] Administration Bacitracin 1 applic 06/30/19 08:15 06/30/19 09:06 Bacitracin - TP Not Given TUTA [facility] Carbidopa/Levodopa 2 each 06/19/19 19:00 06/30/19 12:14 Sinemet 25/100 - PO 2 each TID@0700,1200,1900 [facility] Administration Famotidine 20 mg 06/19/19 22:00 06/30/19 09:05 Pepcid PO 20 mg BID [facility] Administration Heparin Sodium (Porcine) 5,000 unit 06/19/19 14:00 06/30/19 14:44 Heparin - SQ 5,000 unit TID [facility] Administration Insulin Aspart 1 vial 06/26/19 16:45 06/29/19 23:28 Novolog Vial Sliding Scale - SQ Not Given [facility] Protocol Morphine Sulfate 1 mg 06/27/19 17:22 06/29/19 23:09 Morphine Sulfate IVPUSH 1 mg Q6H PRN Administration PAIN LEVEL 6-10 Non-Formulary Medication 1 each 06/20/19 10:00 06/30/19 09:05 Rotigotine [Neupro] TD 1 each DAILY [facility] Administration Rivastigmine 1 each 06/20/19 10:00 06/30/19 09:54 Exelon Patch 4.6mg/24 Hours - TD 1 each DAILY [facility] Administration Home Medications Medication Instructions Recorded Ca/D3/Mag Ox/Zinc/Transmitter Engineer In Charge/Ketan/Bor 1 each PO HS 04/13/18 [Calcium 600-D3 Plus Caplet] Carbidopa/Levodopa [Carbidopa-Levo 1 each PO TID 04/13/18 ER 50-200 Tab] Aspirin 81 mg PO DAILY 06/01/19 Melatonin 5 mg PO HS 06/01/19 Olanzapine [Zyprexa -] 7.5 mg PO DAILY 06/01/19 Omeprazole 20 mg PO DAILY 06/01/19 Rivastigmine [Exelon Patch 1 each TD DAILY 06/01/19 4.6MG/24 Hours -] Rotigotine [Neupro] 1 each TD DAILY 06/01/19 Amox-Tr/K Cl [Augmentin 400 mg/5 7.5 ml GT BID 3 Days #100 ml 06/29/19 ml Oral Suspension -] Microbiology 06/22/19 11:40 Blood - Peripheral Venous Blood Culture - Final NO GROWTH AFTER 5 DAYS INCUBATION 06/22/19 11:35 Blood - Peripheral Venous Blood Culture - Final NO GROWTH AFTER 5 DAYS INCUBATION 06/03/19 11:40 Blood - Peripheral Venous Blood Culture - Final NO GROWTH AFTER 5 DAYS INCUBATION 06/03/19 12:00 Blood - Peripheral Venous Blood Culture - Final NO GROWTH AFTER 5 DAYS INCUBATION 06/04/19 06:20 Sputum - Oropharynx Suctioned Sputum Gram Stain - Final 06/04/19 06:20 Sputum - Oropharynx Suctioned Sputum Sputum Culture - Final Yeast Like Organism 06/01/19 00:00 Blood - Peripheral Venous Blood Culture - Final NO GROWTH AFTER 5 DAYS INCUBATION 06/01/19 00:00 Blood - Peripheral Venous Blood Culture - Final Staph Capitis Subsp Ureolyticu 06/01/19 03:00 Urine For Antigen Detection Legionella Antigen - Final 06/01/19 03:00 Urine For Antigen Detection Streptococcus pneumoniae Antigen (M - Final 06/01/19 01:20 Urine - Urine - Catheterized Urine Culture - Final NO GROWTH OBTAINED ASSESSMENT AND PLAN: Patient is an 79yof with PMhx Parkinson Disease and dementia who presented with AMS. # s/p PEG placement continue feeding tube # Acute hypercapnic resp failure. Resolved. # Aspiration PNA cont zosyn, blood cx ngtd # JOS: resolved # Rhabdo : resolved # Thrombocytopenia: resolved # h/o HTN # h/o DM cont SSI # AMS: acute metabolic encephalopathy . Improved # h/o dementia # Microcytic anemia # contaminant blood cx # Unstageable sacral decub ulcer , s/p debridment 06/20 ,wound vac application continue, was changed on 06/29/2019. follow with dr. Hnasen upon discharge for wound care #Parkinsonism: cont Sinemet DVT :heparin sq no new changes waitng for SW arrangment for dc for air mattress
--- NOTE | 2019-06-30 17:23 | PN ---
Physical Exam: SUBJECTIVE: Patient seen and examined NAEON Moving extremities, responding to questions with nonsensical speech OBJECTIVE: Vital Signs Period Temp Pulse Resp BP Sys/Campbell Pulse Ox Last 24 Hr 98.0 F-100.8 F 66-105 20-20 96-120/42-75 95-95 GENERAL: Lethargic. Soft moaning and nonsensical speech to questioning HEAD: NC/AT EYES: extraocular movements tracking movement briefly, sclera anicteric, conjunctiva clear. No ptosis. ENT: Ears normal, nares patent. NECK: Trachea midline, full range of motion, supple. LUNGS: Breath sounds equal, mildly coarse BS w/ wheezes bilaterally. Breathing on RA HEART: Regular rate and rhythm, S1, S2 without murmur, rub or gallop. ABDOMEN: Soft, nontender, nondistended, normoactive bowel sounds, no guarding, no rebound. PEG in Left-sided abd. TF running. SACRUM: sacral wound with overlying wound VAC, with SS drainage in canister EXTREMITIES: 2+ pulses, warm, well-perfused, no edema. BLE with nonpitting edema. DP2+ b/l NEUROLOGICAL: slightly opening eyes to loud questioning. Spontaneously lifting arms intermittently. Soft moaning and nonsensical speech to questioning SKIN: Warm, dry, normal turgor, no rashes or lesions noted Laboratory Results - last 24 hr 06/29/19 23:24 POC Glucometer 134 Active Medications Generic Name Dose Route Start Last Admin Trade Name Freq PRN Reason Stop Dose Admin Acetaminophen 650 mg 06/27/19 17:23 06/29/19 23:33 Tylenol Oral Solution - PO 650 mg Q6H PRN Administration pain 1-5 Albuterol Sulfate 1 amp 06/27/19 17:22 Ventolin 0.083% Nebulizer Soln - NEB Q8H PRN SHORT OF BREATH/WHEEZING Amoxicillin/Clavulanate Potassium 600 mg 06/25/19 17:30 06/30/19 12:14 Augmentin 600 Mg/5 Ml Oral Suspension - PEG 07/02/19 17:29 5 ml BID@0800,1730 [facility] Administration Bacitracin 1 applic 06/30/19 08:15 06/30/19 09:06 Bacitracin - TP Not Given TUTA [facility] Carbidopa/Levodopa 2 each 06/19/19 19:00 06/30/19 12:14 Sinemet 25/100 - PO 2 each TID@0700,1200,1900 [facility] Administration Famotidine 20 mg 06/19/19 22:00 06/30/19 09:05 Pepcid PO 20 mg BID [facility] Administration Heparin Sodium (Porcine) 5,000 unit 06/19/19 14:00 06/30/19 14:44 Heparin - SQ 5,000 unit TID [facility] Administration Insulin Aspart 1 vial 06/26/19 16:45 06/29/19 23:28 Novolog Vial Sliding Scale - SQ Not Given HS [facility] Protocol Morphine Sulfate 1 mg 06/27/19 17:22 06/29/19 23:09 Morphine Sulfate IVPUSH 1 mg Q6H PRN Administration PAIN LEVEL 6-10 Non-Formulary Medication 1 each 06/20/19 10:00 06/30/19 09:05 Rotigotine [Neupro] TD 1 each DAILY [facility] Administration Rivastigmine 1 each 06/20/19 10:00 06/30/19 09:54 Exelon Patch 4.6mg/24 Hours - TD 1 each DAILY [facility] Administration ASSESSMENT/PLAN: 79y/o female with Parkinson's and dementia who presents with AMS and cough x 4 days. At baseline she is non-ambulatory and mental status changes from day to day (some days she is alert and oriented, can speak sentences, other days she does not speak at all). Admitted for AMS. Likely aspiration PNA. Pt was hypoxic to the 80s at ED presentation. Intubated for increased work of breathing. Flu negative. Atelectasis vs infiltrate at Left base. Extubated on 06/09. Repeat CTH on 06/11/19 by Neuro, w/o significant interval change; possibly chronic and superimposed sinusitis of Left maxillary antrum and sphenoid sinus. Daughter expresses desire to avoid PEG, has strong belief that optimization of Parkinson' s and Dementia drugs will help pt resolve AMS. Received zosyn x8d(06/01 -06/13) for possible aspiration PNA. Failing bedside S&S evaluation. TF via NGT. Solumedrol stopped on 06/15/19. IR(Carmencita) consult for possible PEG. Sacral wound worsening which prompted Sacral Decubitus Wound Debridement(Jade, ). Having fevers, possibly from Left-sided infiltrate vs sacral wound infection. Sacral wound has been VAC'd. s/p IR PEG 06/23/19. Awaiting home setup( low air loss mattress and a semi-electric hospital bed, requiring frequent body position changes, which she cannot complete independently and are not feasible w / a regular bed to alleviate pain, prevent aspiration, and prevent further skin breakdown(Right buttock w/ unstageable pressure ulcer, Left buttock healed pressure injury(4x2cm)) prior to discharge. Awaiting home setup prior to discharge. #acute hypoxic respiratory failure 2/2 multilobar PNA and sepsis -CXR improved post-intubation > CXR(06/08/19): Left base w/ minimal atelectasis, sharp rib angles > CXR(06/21/19): L-base w/ atelectasis vs infiltrate > flu: negative > Echo: normal EF, impaired relaxation, elevated filling pressures, TR, MR -Ventolin TID -solumedrol 20mg IVP BID --> 20mg IVP QD --> stopped -zosyn 3.375g Q8H --for PNA vs infected sacral wound -ID(Valentino) consult: --resumed Zosyn on 06/22/19 --Augmentin PEG BID, x7d (06/25 --) -Pulm(Jourdan) consult: --taper medrol --stopped on 06/15/19 #AMS: toxic metabolic encephalopathy vs less likely CVA -CT head negative for acute processes -CT H(06/11/19): no significant change, possible chronic/superimposed Left maxillary sinusitis -urine cx negative -blood cx(06/01/19): Staph coag negative in 1 bottle --likely contaminant -blood cx(06/03/19): NGTD -sputum cx(06/04/19): yeast-like -blood cx(06/22/19): NGTD -dietary following -speech following #inability to tolerate PO --2/2 AMS -NGT feeds(Glucerna) -PEG(Aaron-DiGiorno) evaluation --will defer to IR -IR(Karen) evaluation: placed 06/23/19 --ok for tube feeds #sacral decubitus ulcer -surgery(Jacob Estrada) consulted --Reposition every two hours while in bed --Air mattress recommended --Use drawsheets and Trendelenburg when repositioning to reduce friction and shear --Manageincontinence via timely cleansing, use of appropriate incontinence disposables and use of barrier ointment to intact skin --Ensure adequate hydration/nutrition, supplementation per primary team --Ensure off-loading to all bony areas (heels, ankles, hips and tailbone) with Allevyn/Optifoam --Clean open wounds with normal saline and apply bacitracin -Surgery(Hansen): --debridement 06/19/19 #leukocytosis -from infection vs steroid use -mild improvement continues -continue monitor #JOS, resolved -nephro following -Cardio following --diovan held --BP stable #anemia of chronic disease -microcytosis but low TIBC, unsaturated IBC, and high ferritin #Parkinson's and dementia -continue Sinimet, modified dose for NG tube, @0700, 1200, 1900 -rivostigmine patch -rotigotine patch #mild hypophosphatemia, resolved #lactic acidosis, resolved #transaminitis, improved DVT ppx SQH GI ppx protonix FEN monitor labs NG feeds: Glucerna through PEG Visit type - Emergency Visit Emergency Visit: No - New Patient This patient is new to me today: No - Critical Care Critical Care patient: No ATTENDING PHYSICIAN STATEMENT I saw and evaluated the patient. I reviewed the resident's note and discussed the case with the resident. I agree with the resident's findings and plan as documented. SUBJECTIVE: OBJECTIVE: ASSESSMENT AND PLAN:
[2019-06-30] MEDS: MORPHINE SULFATE 2 MG/ML VIAL IVPUSH PRN (19:03)
[2019-06-30] MEDS: INSULIN SLIDING SCALE (NOVOLOG) 1 VIAL SQ SCH (21:17)
[2019-07-01] MEDS: CARBIDOPA/LEVODOPA 25/100 TABLET (FP) PO SCH ×3 (06:41→19:11)
--- NOTE | 2019-07-01 08:34 | PN ---
Progress Note (short form) - Note Progress Note: Neurology CHIEF COMPLAINT: AMS PCP: None HISTORY OF PRESENT ILLNESS: Ms. Prescott is an 79 year old female with PMH of Parkinson Disease and dementia who was BIBEMS with AMS x4 days at time of admission. Daughter was at bedside and that time and provided history. Pt lives at home (no [employer] or V[employer]) with daughter as primary automation developer. At baseline she is non-ambulatory and mental status changes from day to day (some days she is alert and oriented, can speak sentences, other days she does not speak at all). Pt has had a productive cough of yellow sputum for 4 days before day of admission and has become increasingly confused and somnolent. Decreased appetite, unable to eat or drink anything. On day of admission, she was not responding at all and had a low grade fever. Daughter stated that pt has not complained of any symptoms (chest pain, abd pain , SOB, urinary complaints). On arrival to ED, pt was hypoxic in the 80s. Patient consulted for altered mental status. Ct of head reviewed and showed no evidence of a focal intracranial lesion or hemorrhage completed on 06/01 at the time of admission. Patient downgraded from ICU and currently on telemetry floor. Patient status post PEG tube placement and no issues with PEG per notes. Patient started on Augmentin and mental status remains essentially the same in which she does wake up to voice but speech is not coherent. Active Medications Acetaminophen (Tylenol Oral Solution -) 650 mg PO Q6H PRN PRN Reason: pain 1-5 Last Admin: 06/29/19 23:33 Dose: 650 mg Albuterol Sulfate (Ventolin 0.083% Nebulizer Soln -) 1 amp NEB Q8H PRN PRN Reason: SHORT OF BREATH/WHEEZING Amoxicillin/Clavulanate Potassium (Augmentin 600 Mg/5 Ml Oral Suspension -) 600 mg PEG BID@0800,1730 [facility] Stop: 07/02/19 17:29 Last Admin: 06/30/19 21:10 Dose: 5 ml Bacitracin (Bacitracin -) 1 applic TP TUTHSA [facility] Last Admin: 06/30/19 09:06 Dose: Not Given Carbidopa/Levodopa (Sinemet 25/100 -) 2 each PO TID@0700,1200,1900 [facility] Last Admin: 07/01/19 06:41 Dose: 2 each Famotidine (Pepcid) 20 mg PO BID [facility] Last Admin: 06/30/19 21:12 Dose: 20 mg Insulin Aspart (Novolog Vial Sliding Scale -) 1 vial SQ HS [facility]; Protocol Last Admin: 06/30/19 21:17 Dose: Not Given Morphine Sulfate (Morphine Sulfate) 1 mg IVPUSH Q6H PRN PRN Reason: PAIN LEVEL 6-10 Last Admin: 06/30/19 19:03 Dose: 1 mg Non-Formulary Medication (Rotigotine [Neupro]) 1 each TD DAILY [facility] Last Admin: 06/30/19 09:05 Dose: 1 each Rivastigmine (Exelon Patch 4.6mg/24 Hours -) 1 each TD DAILY [facility] Last Admin: 06/30/19 09:54 Dose: 1 each PHYSICAL EXAMINATION Vital Signs Period Temp Pulse Resp BP Sys/Campbell Pulse Ox Last 24 Hr 98.5 F-99.6 F 84-91 20-20 105-135/42-80 95-97 GENERAL: Somnolent, slightly responsive to sternal rub. HEAD: Normal with no signs of trauma. EYES: Pupils equal, round and reactive to light, extraocular movements intact, sclera anicteric, conjunctiva clear. No lid lag. EARS, NOSE, THROAT: Ears normal, nares patent, oropharynx clear without exudates. Dry mucous membranes. NECK: Normal range of motion, supple without lymphadenopathy, JVD, or masses. LUNGS: Inspiratory and expiratory wheezes throughout, accessory muscle use. HEART: Regular rate and rhythm, normal S1 and S2 without murmur, rub or gallop. ABDOMEN: Soft, nontender, not distended, normoactive bowel sounds, no guarding, no rebound, no masses. No hepatomegaly or splenomegaly. MUSCULOSKELETAL: Normal range of motion at all joints. No bony deformities or tenderness. No CVA tenderness. UPPER EXTREMITIES: 2+ pulses, warm, well-perfused. No cyanosis. No clubbing. No peripheral edema. LOWER EXTREMITIES: 2+ pulses, warm, well-perfused. No calf tenderness. No peripheral edema. NEUROLOGICAL: Unable to assess 2/2 mental status. PSYCHIATRIC: Cooperative. Good eye contact. Appropriate mood and affect. SKIN: Warm, dry, normal turgor, normal capillary refill. Sacral decubitus ulcer with sloughing skin and erythema. CBCD WBC 11.4 K/mm3 (4.0-10.0) H 06/29/19 10:25 RBC 4.15 M/mm3 (3.60-5.2) 06/29/19 10:25 Hgb 9.6 GM/dL (10.7-15.3) L 06/29/19 10:25 Hct 30.3 % (32.4-45.2) L 06/29/19 10:25 MCV 73.0 fl (80-96) L 06/29/19 10:25 MCHC 31.9 g/dl (32.0-36.0) L 06/29/19 10:25 RDW 16.9 % (11.6-15.6) H 06/29/19 10:25 Plt Count 299 K/MM3 (134-434) D 06/29/19 10:25 MPV 8.5 fl (7.5-11.1) 06/29/19 10:25 CMP Sodium 134 mmol/L (136-145) L 06/29/19 10:25 Potassium 4.3 mmol/L (3.5-5.1) 06/29/19 10:25 Chloride 100 mmol/L (98-107) 06/29/19 10:25 Carbon Dioxide 26 mmol/L (21-32) 06/29/19 10:25 Anion Gap 8 MMOL/L (8-16) 06/29/19 10:25 BUN 21.6 mg/dL (7-18) H 06/29/19 10:25 Creatinine 0.7 mg/dL (0.55-1.3) 06/29/19 10:25 Random Glucose 115 mg/dL (74-106) H 06/29/19 10:25 Calcium 8.7 mg/dL (8.5-10.1) 06/29/19 10:25 Total Bilirubin 0.4 mg/dL (0.2-1) 06/29/19 10:25 AST 27 U/L (15-37) 06/29/19 10:25 ALT 11 U/L (13-61) L 06/29/19 10:25 Alkaline Phosphatase 85 U/L (45-117) 06/29/19 10:25 Total Protein 6.8 g/dl (6.4-8.2) 06/29/19 10:25 Albumin 2.7 g/dl (3.4-5.0) L 06/29/19 10:25 CARDIAC ENZYMES Creatine Kinase 281 U/L (26-192) H 06/04/19 06:30 Troponin I < 0.02 ng/ml (0.00-0.05) 06/01/19 04:07 ASSESSMENT/PLAN: Ms. Prescott is an 79 year old female with PMH of Parkinson Disease and dementia who was BIBEMS with AMS x4 days at time of admission. Daughter was at bedside and that time and provided history. Pt lives at home (no [employer] or VNS) with daughter as primary automation developer. At baseline she is non-ambulatory and mental status changes from day to day (some days she is alert and oriented, can speak sentences, other days she does not speak at all). Pt has had a productive cough of yellow sputum for 4 days before day of admission and has become increasingly confused and somnolent. Decreased appetite, unable to eat or drink anything. On day of admission, she was not responding at all and had a low grade fever. Daughter stated that pt has not complained of any symptoms (chest pain, abd pain , SOB, urinary complaints). On arrival to ED, pt was hypoxic in the 80s. Patient consulted for altered mental status. Ct of head reviewed and showed no evidence of a focal intracranial lesion or hemorrhage completed on 06/01 at the time of admission. Patient downgraded from ICU and remains on telemetry floor. Patient status post PEG tube placement and no issues with PEG per notes. Patient started on Augmentin and mental status remains essentially the same in which she does wake up to voice but speech is not coherent. Continue medical optimization, infectious mgmt, hydration and nutrition via PEG
--- NOTE | 2019-07-01 08:43 | PN ---
Progress Note (short form) - Note Progress Note: NAD on RA. No fevers recorded. No acute events overnight. Intake & Output 06/28/19 06/29/19 06/30/19 07/01/19 23:59 23:59 23:59 23:59 Intake Total 0 320 1490 860 Output Total 300 1 400 Balance -760 753 8768 460 Last Vital Signs Temp Pulse Resp BP Pulse Ox 99.6 F 91 H 20 135/80 97 07/01/19 07:06 07/01/19 07:06 07/01/19 07:06 07/01/19 07:06 07/01/19 01:00 Active Medications Acetaminophen (Tylenol Oral Solution -) 650 mg PO Q6H PRN PRN Reason: pain 1-5 Last Admin: 06/29/19 23:33 Dose: 650 mg Albuterol Sulfate (Ventolin 0.083% Nebulizer Soln -) 1 amp NEB Q8H PRN PRN Reason: SHORT OF BREATH/WHEEZING Amoxicillin/Clavulanate Potassium (Augmentin 600 Mg/5 Ml Oral Suspension -) 600 mg PEG BID@0800,1730 [facility] Stop: 07/02/19 17:29 Last Admin: 06/30/19 21:10 Dose: 5 ml Bacitracin (Bacitracin -) 1 applic TP TUTHSA [facility] Last Admin: 06/30/19 09:06 Dose: Not Given Carbidopa/Levodopa (Sinemet 25/100 -) 2 each PO TID@0700,1200,1900 [facility] Last Admin: 07/01/19 06:41 Dose: 2 each Famotidine (Pepcid) 20 mg PO BID [facility] Last Admin: 06/30/19 21:12 Dose: 20 mg Insulin Aspart (Novolog Vial Sliding Scale -) 1 vial SQ HS [facility]; Protocol Last Admin: 06/30/19 21:17 Dose: Not Given Morphine Sulfate (Morphine Sulfate) 1 mg IVPUSH Q6H PRN PRN Reason: PAIN LEVEL 6-10 Last Admin: 06/30/19 19:03 Dose: 1 mg Non-Formulary Medication (Rotigotine [Neupro]) 1 each TD DAILY [facility] Last Admin: 06/30/19 09:05 Dose: 1 each Rivastigmine (Exelon Patch 4.6mg/24 Hours -) 1 each TD DAILY [facility] Last Admin: 06/30/19 09:54 Dose: 1 each Gen: NAD at rest Heart: RRR Lung: scattered rhonchi Abd: soft, nontender Ext: no edema Laboratory Results - last 24 hr 06/30/19 21:15 POC Glucometer 131 A/P Acute Hypercapneic Respiratory Failure improving Pneumonia likely Aspiration Sepsis Lactic Acidosis Acute Kidney Injury HTN DM Parkinsons Dementia Anemia - Augmentin - inhaled bronchodilators - o2 to keep SpO2 >90% - enteral feeds - aspiration precautions - DVT prophylaxis - d/c planning Dr Collins
[2019-07-01] MEDS ORDERED: PT OWN MED DRAWER 7, Y5N ONE ×3 (09:06→11:45)
[2019-07-01] MEDS: FAMOTIDINE 40 MG/5 ML ORAL SUSPENSION PO SCH ×2 (09:27→22:25)
[2019-07-01] MEDS: RIVASTIGMINE 4.6 MG/24 HOURS TRANSDERMAL PATCH TD SCH (09:27)
[2019-07-01] MEDS: PATIENT'S OWN MEDICATION (NON-FORMULARY) (Rotigotine [Neupro] 1 EACH) TD SCH (09:28)
[2019-07-01] MEDS: AMOX TR/POTASSIUM CLAVULANATE 600 MG/5 ML PEG SCH ×2 (12:31→22:25)
--- NOTE | 2019-07-01 14:45 | PN ---
Progress Note (short form) - Note Progress Note: s: awake, alert, confused, appears comfortable Current Medications Generic Name Dose Route Start Last Admin Trade Name Freq PRN Reason Stop Dose Admin Acetaminophen 650 mg 06/27/19 17:23 06/29/19 23:33 Tylenol Oral Solution - PO 650 mg Q6H PRN Administration pain 1-5 Albuterol Sulfate 1 amp 06/27/19 17:22 Ventolin 0.083% Nebulizer Soln - NEB Q8H PRN SHORT OF BREATH/WHEEZING Amoxicillin/Clavulanate Potassium 600 mg 06/25/19 17:30 07/01/19 12:31 Augmentin 600 Mg/5 Ml Oral Suspension - PEG 07/02/19 17:29 5 ml BID@0800,1730 [facility] Administration Bacitracin 1 applic 06/30/19 08:15 06/30/19 09:06 Bacitracin - TP Not Given TUTA [facility] Carbidopa/Levodopa 2 each 06/19/19 19:00 07/01/19 12:30 Sinemet 25/100 - PO 2 each TID@0700,1200,1900 [facility] Administration Famotidine 20 mg 06/19/19 22:00 07/01/19 09:27 Pepcid PO 20 mg BID [facility] Administration Insulin Aspart 1 vial 06/26/19 16:45 06/30/19 21:17 Novolog Vial Sliding Scale - SQ Not Given HS [facility] Protocol Morphine Sulfate 1 mg 06/30/19 18:34 06/30/19 19:03 Morphine Sulfate IVPUSH 1 mg Q6H PRN Administration PAIN LEVEL 6-10 Non-Formulary Medication 1 each 06/20/19 10:00 07/01/19 09:28 Rotigotine [Neupro] TD 1 each DAILY [facility] Administration Rivastigmine 1 each 06/20/19 10:00 07/01/19 09:27 Exelon Patch 4.6mg/24 Hours - TD 1 each DAILY [facility] Administration Vital Signs Period Temp Pulse Resp BP Sys/Campbell Pulse Ox Last 24 Hr 98.5 F-99.9 F 85-91 20-20 105-135/72-80 97-97 Constitutional: Yes: No Distress, Calm Neck: Yes: Supple, Trachea Midline Respiratory: Yes: Regular, Diminished Gastrointestinal: Yes: Normal Bowel Sounds, Soft Cardiovascular: Yes: Regular Rate and Rhythm JVD: No Extremities: No: Cold Edema: No Integumentary: No: Jaundice Neurological: Yes: awake alert confused Psychiatric: No: Agitated CBC, BMP 06/29/19 10:25 06/29/19 10:25 echo 05/2019 nl LV/RV function, impaired relaxation, elevated filling pressures, RV not well visualized, mild to mod MR, mild mod TR CXR: no congestion/effusions (+ atx) PNA, sepsis, acute respiratory failure 2/2 suspected aspiration: - manage per critical care, ID; - intubated after suspected aspiration event, now extubated - nl LV function on echo HTN: - stable off meds DM: - manage per primary dementia, parkinson's: - manage per primary - now s/p peg JOS, rhabdo: - renal fxn improved
--- NOTE | 2019-07-01 15:39 | PN ---
Teaching Attending Note Name of Resident: Miguel A Stovall ATTENDING PHYSICIAN STATEMENT I saw and evaluated the patient. I reviewed the resident's note and discussed the case with the resident. I agree with the resident's findings and plan as documented. SUBJECTIVE: complains in pain in her buttock area. no SOB. limited interaction OBJECTIVE: MMM.answered some questions. speaks with her eyes closed CV: RRR. Lungs: clear anteriorly . Abd: soft, NT, ND, NL BS. PEG in place with intact surrrounding skin Ext: trace edema on feet. ASSESSMENT AND PLAN: 79 y/o lady with h/o Parkinson Disease and dementia who presented with AMS. 1- Acute hypercapnic resp failure. Resolved. 2- Aspiration PNA 3- JOS: resolved 4- Rhabdo : resolved 5- Thrombocytopenia: resolved 6- h/o HTN 7- h/o DM . last A1c 6.2 8- AMS: acute metabolic encephalopathy . Improved 9- h/o dementia 10- Microcytic anemia 11- contaminant blood cx 12- Unstageable sacral decub ulcer , s/p debridment 06/20 Plan: - one more day of augmentin after dc - wound vac to be changed by VNS three times a week - cont Glucerna through PEG . - cont Sinemet - her sugar reached 200-300 this admission. will dc on JAnuvia 100 daily. CrCl 61%. it can be given through PEG tube - f/u with dr. Hansen for wound care and VAc instruction dc home with VNS today. Hospital bed and electric mattress arranged
--- NOTE | 2019-07-01 18:51 | DS ---
Physical Exam: SUBJECTIVE: Patient seen and examined OBJECTIVE: Vital Signs Period Temp Pulse Resp BP Sys/Campbell Pulse Ox Last 24 Hr 98.5 F-99.9 F 85-91 20-20 105-135/63-80 97-97 PHYSICAL EXAM GENERAL: Lethargic. Soft moaning and nonsensical speech to questioning HEAD: NC/AT EYES: extraocular movements tracking movement briefly, sclera anicteric, conjunctiva clear. No ptosis. ENT: Ears normal, nares patent. NECK: Trachea midline, full range of motion, supple. LUNGS: Breath sounds equal, mildly coarse BS w/ wheezes bilaterally. Breathing on RA HEART: Regular rate and rhythm, S1, S2 without murmur, rub or gallop. ABDOMEN: Soft, nontender, nondistended, normoactive bowel sounds, no guarding, no rebound. PEG in Left-sided abd. TF running. SACRUM: sacral wound with overlying wound VAC, with SS drainage in canister EXTREMITIES: 2+ pulses, warm, well-perfused, no edema. BLE with nonpitting edema. DP2+ b/l NEUROLOGICAL: slightly opening eyes to loud questioning. Spontaneously lifting arms intermittently. Soft moaning and nonsensical speech to questioning SKIN: Warm, dry, normal turgor, no rashes or lesions noted LABS Laboratory Results - last 24 hr 06/30/19 21:15 POC Glucometer 131 HOSPITAL COURSE: Date of Admission:06/01/19 Date of Discharge: 07/01/19 79y/o female with Parkinson's and dementia who presents with AMS and cough x 4 days. At baseline she is non-ambulatory and mental status changes from day to day (some days she is alert and oriented, can speak sentences, other days she does not speak at all). Admitted for AMS. Likely aspiration PNA. Pt was hypoxic to the 80s at ED presentation. Intubated for increased work of breathing. Flu negative. Atelectasis vs infiltrate at Left base. Extubated on 06/09. Repeat CTH on 06/11/19 by Neuro, w/o significant interval change; possibly chronic and superimposed sinusitis of Left maxillary antrum and sphenoid sinus. Daughter expresses desire to avoid PEG, has strong belief that optimization of Parkinson' s and Dementia drugs will help pt resolve AMS. Received zosyn x8d(06/01 -06/13) for possible aspiration PNA. Failing bedside S&S evaluation. TF via NGT. Solumedrol stopped on 06/15/19. IR(Carmencita) consult for possible PEG. Sacral wound worsening which prompted Sacral Decubitus Wound Debridement(Jade, ). Sacral wound has been VAC'd. s/p IR PEG 06/23/19. Completed home setup(low air loss mattress and a semi-electric hospital bed, requiring frequent body position changes, which she cannot complete independently and are not feasible w / a regular bed to alleviate pain, prevent aspiration, and prevent further skin breakdown(Right buttock w/ unstageable pressure ulcer, Left buttock healed pressure injury(4x2cm)) prior to discharge. Pt's family refused SNF and instead wanted pt home. Minutes to complete discharge: 35 Discharge Summary Problems reviewed: Yes Reason For Visit: ACUTE RESPIRATORY FAILURE, SEPSIS Current Active Problems JOS (acute kidney injury) (Acute) Acute respiratory failure (Acute) Altered mental status (Acute) Decubitus ulcer (Acute) Failure to thrive (Acute) Pneumonia (Acute) Respiratory failure with hypoxia (Acute) Rhabdomyolysis (Acute) Sepsis (Acute) Condition: Improved - Instructions Diet, Activity, Other Instructions: You were evaluated in the hospital for worsened mentation with cough. Imaging was suggestive of a pneumonia. Your respiratory status worsened to the point that you required intubation. You were in the ICU until your respiratory status improved. Gastrostomy Tube was placed to improve your feeding since you were having difficulty swallowing. You sacral wound required surgical debridment and you are going home with a wound vac. You were deemed stable for discharge. MEDICATIONS: - Amoxicillin-Clavulanate[AUGEMENTIN] 600mg, twice a day, to be administered through the gastric tube. To be finished on 07/02/19 - Bactracin ointment, to apply a light application prior to applying new black Wound VAC - Your Sinemet was converted to formulation that can be administered through PEG tube. - resume home medications as previously prescribed ADDITIONAL INSTRUCTIONS: - Sacral Wound VAC dressing to be changed 3 times/weekly, Saturday-- Saturday - Wound Care: --Reposition every two hours while in bed --Use drawsheets when repositioning to reduce friction and shear --Ensure off-loading to all bony areas (heels, ankles, hips and tailbone) with Allevyn/Optifoam Please follow-up with the physicians below: - Neurologist(Edgar): to discuss your dementia - Home Child Care Provider(Karina): to discuss your recurrent pneumonia - Surgery(Jade): to evaluate your sacral wound -Follow up with for your sacral wound with within a week period. -you are being discharged home with wound VAc and VNS services Please seek immediate medical evaluation if you experience: - fever, chills - worsening lethargy - foul-smelling odor or pus in the urine or sacral wound Tube feeding : Glucerna 1.5 , 50 cc/hour, and 30 cc of free water /hour . flush before and after medications administrations Referrals: Edu Hansen MD [Staff Physician] - 1 Week (follow up with him in his office for wound care) Nathan Hernández MD [Staff Physician] - Hadley Hightower DO [Staff Physician] - 1 Week Edgar Collins MD [Staff Physician] - Disposition: VNS/HOME HEALTH CARE - Home Medications Comprehensive Discharge Medication List: Ambulatory Orders Ca/D3/Mag Ox/Zinc/You[employer] Ministry Director/Ketan/Bor [Calcium 600-D3 Plus Caplet] 1 each PO HS Aspirin 81 mg PO DAILY 06/01/19 Melatonin 5 mg PO HS 06/01/19 Olanzapine [Zyprexa -] 7.5 mg PO DAILY 06/01/19 Omeprazole 20 mg PO DAILY 06/01/19 Rivastigmine [Exelon Patch 4.6MG/24 Hours -] 1 each TD DAILY 06/01/19 Rotigotine [Neupro] 1 each TD DAILY 06/01/19 Amoxicillin/Potassium Clav [Amox Tr-K Clv 600-42.9/5 Susp] 600 mg GT BID #10 ml 07/01/19 Bacitracin - [Bacitracin Topical Ointment -] 1 applic TP TUTHSA #1 tube Carbidopa/Levodopa 25/100 [Sinemet 25/100 -] 2 each PO TID@0700,1200,1900 30 Days #180 tablet 07/01/19 Sitagliptin Phosphate [Januvia] 100 mg PO DAILY #30 tablet 07/01/19 This patient is new to me today: No Emergency Visit: No Critical Care patient: No - Discharge Referral Referred to [facility] Med P.C.: No ATTENDING PHYSICIAN STATEMENT I saw and evaluated the patient. I reviewed the resident's note and discussed the case with the resident. I agree with the resident's findings and plan as documented. SUBJECTIVE: OBJECTIVE: ASSESSMENT AND PLAN:
[2019-07-01] MEDS: MORPHINE SULFATE 2 MG/ML VIAL IVPUSH PRN (20:00)
[2019-07-01] MEDS: INSULIN SLIDING SCALE (NOVOLOG) 1 VIAL SQ SCH (22:26)
[2019-07-02] MEDS: CARBIDOPA/LEVODOPA 25/100 TABLET (FP) PO SCH ×3 (06:14→18:46)
[2019-07-02] MEDS: MORPHINE SULFATE 2 MG/ML VIAL IVPUSH PRN (07:13)
--- NOTE | 2019-07-02 08:34 | PN ---
Progress Note (short form) - Note Progress Note: Neurology CHIEF COMPLAINT: AMS PCP: None HISTORY OF PRESENT ILLNESS: Ms. Prescott is an 79 year old female with PMH of Parkinson Disease and dementia who was BIBEMS with AMS x4 days at time of admission. Daughter was at bedside and that time and provided history. Pt lives at home (no BUS DRIVER or VNS) with daughter as primary rock climbing team member. At baseline she is non-ambulatory and mental status changes from day to day (some days she is alert and oriented, can speak sentences, other days she does not speak at all). Pt has had a productive cough of yellow sputum for 4 days before day of admission and has become increasingly confused and somnolent. Decreased appetite, unable to eat or drink anything. On day of admission, she was not responding at all and had a low grade fever. Daughter stated that pt has not complained of any symptoms (chest pain, abd pain , SOB, urinary complaints). On arrival to ED, pt was hypoxic in the 80s. Patient consulted for altered mental status. Ct of head reviewed and showed no evidence of a focal intracranial lesion or hemorrhage completed on 06/01 at the time of admission. Patient downgraded from ICU and currently on telemetry floor. Patient status post PEG tube placement and no issues with PEG per notes. Patient started on Augmentin and mental status remains essentially the same in which she does wake up to voice but speech is not coherent. No new events overnight, resting comfortably this AM. Active Medications Acetaminophen (Tylenol Oral Solution -) 650 mg PO Q6H PRN PRN Reason: pain 1-5 Last Admin: 06/29/19 23:33 Dose: 650 mg Albuterol Sulfate (Ventolin 0.083% Nebulizer Soln -) 1 amp NEB Q8H PRN PRN Reason: SHORT OF BREATH/WHEEZING Amoxicillin/Clavulanate Potassium (Augmentin 600 Mg/5 Ml Oral Suspension -) 600 mg PEG BID@0800,1730 [facility] Stop: 07/02/19 17:29 Last Admin: 07/01/19 22:25 Dose: 5 ml Bacitracin (Bacitracin -) 1 applic TP TUTHSA [facility] Last Admin: 06/30/19 09:06 Dose: Not Given Carbidopa/Levodopa (Sinemet 25/100 -) 2 each PO TID@0700,1200,1900 [facility] Last Admin: 07/02/19 06:14 Dose: 2 each Famotidine (Pepcid) 20 mg PO BID [facility] Last Admin: 07/01/19 22:25 Dose: 20 mg Insulin Aspart (Novolog Vial Sliding Scale -) 1 vial SQ HS [facility]; Protocol Last Admin: 07/01/19 22:26 Dose: Not Given Morphine Sulfate (Morphine Sulfate) 1 mg IVPUSH Q6H PRN PRN Reason: PAIN LEVEL 6-10 Last Admin: 07/02/19 07:13 Dose: 1 mg Non-Formulary Medication (Rotigotine [Neupro]) 1 each TD DAILY [facility] Last Admin: 07/01/19 09:28 Dose: 1 each Rivastigmine (Exelon Patch 4.6mg/24 Hours -) 1 each TD DAILY [facility] Last Admin: 07/01/19 09:27 Dose: 1 each PHYSICAL EXAMINATION Vital Signs Period Temp Pulse Resp BP Sys/Campbell Pulse Ox Last 24 Hr 97.5 F-99.9 F 84-91 20-20 97-125/52-81 95-96 GENERAL: Somnolent, slightly responsive to sternal rub. HEAD: Normal with no signs of trauma. EYES: Pupils equal, round and reactive to light, extraocular movements intact, sclera anicteric, conjunctiva clear. No lid lag. EARS, NOSE, THROAT: Ears normal, nares patent, oropharynx clear without exudates. Dry mucous membranes. NECK: Normal range of motion, supple without lymphadenopathy, JVD, or masses. LUNGS: Inspiratory and expiratory wheezes throughout, accessory muscle use. HEART: Regular rate and rhythm, normal S1 and S2 without murmur, rub or gallop. ABDOMEN: Soft, nontender, not distended, normoactive bowel sounds, no guarding, no rebound, no masses. No hepatomegaly or splenomegaly. MUSCULOSKELETAL: Normal range of motion at all joints. No bony deformities or tenderness. No CVA tenderness. UPPER EXTREMITIES: 2+ pulses, warm, well-perfused. No cyanosis. No clubbing. No peripheral edema. LOWER EXTREMITIES: 2+ pulses, warm, well-perfused. No calf tenderness. No peripheral edema. NEUROLOGICAL: Unable to assess 2/2 mental status. PSYCHIATRIC: Cooperative. Good eye contact. Appropriate mood and affect. SKIN: Warm, dry, normal turgor, normal capillary refill. Sacral decubitus ulcer with sloughing skin and erythema. CBCD WBC 11.4 K/mm3 (4.0-10.0) H 06/29/19 10:25 RBC 4.15 M/mm3 (3.60-5.2) 06/29/19 10:25 Hgb 9.6 GM/dL (10.7-15.3) L 06/29/19 10:25 Hct 30.3 % (32.4-45.2) L 06/29/19 10:25 MCV 73.0 fl (80-96) L 06/29/19 10:25 MCHC 31.9 g/dl (32.0-36.0) L 06/29/19 10:25 RDW 16.9 % (11.6-15.6) H 06/29/19 10:25 Plt Count 299 K/MM3 (134-434) D 06/29/19 10:25 MPV 8.5 fl (7.5-11.1) 06/29/19 10:25 CMP Sodium 134 mmol/L (136-145) L 06/29/19 10:25 Potassium 4.3 mmol/L (3.5-5.1) 06/29/19 10:25 Chloride 100 mmol/L (98-107) 06/29/19 10:25 Carbon Dioxide 26 mmol/L (21-32) 06/29/19 10:25 Anion Gap 8 MMOL/L (8-16) 06/29/19 10:25 BUN 21.6 mg/dL (7-18) H 06/29/19 10:25 Creatinine 0.7 mg/dL (0.55-1.3) 06/29/19 10:25 Random Glucose 115 mg/dL (74-106) H 06/29/19 10:25 Calcium 8.7 mg/dL (8.5-10.1) 06/29/19 10:25 Total Bilirubin 0.4 mg/dL (0.2-1) 06/29/19 10:25 AST 27 U/L (15-37) 06/29/19 10:25 ALT 11 U/L (13-61) L 06/29/19 10:25 Alkaline Phosphatase 85 U/L (45-117) 06/29/19 10:25 Total Protein 6.8 g/dl (6.4-8.2) 06/29/19 10:25 Albumin 2.7 g/dl (3.4-5.0) L 06/29/19 10:25 CARDIAC ENZYMES Creatine Kinase 281 U/L (26-192) H 06/04/19 06:30 Troponin I < 0.02 ng/ml (0.00-0.05) 06/01/19 04:07 ASSESSMENT/PLAN: Ms. Prescott is an 79 year old female with PMH of Parkinson Disease and dementia who was BIBEMS with AMS x4 days at time of admission. Daughter was at bedside and that time and provided history. Pt lives at home (no BUS DRIVER or VNS) with daughter as primary rock climbing team member. At baseline she is non-ambulatory and mental status changes from day to day (some days she is alert and oriented, can speak sentences, other days she does not speak at all). Pt has had a productive cough of yellow sputum for 4 days before day of admission and has become increasingly confused and somnolent. Decreased appetite, unable to eat or drink anything. On day of admission, she was not responding at all and had a low grade fever. Daughter stated that pt has not complained of any symptoms (chest pain, abd pain , SOB, urinary complaints). On arrival to ED, pt was hypoxic in the 80s. Patient consulted for altered mental status. Ct of head reviewed and showed no evidence of a focal intracranial lesion or hemorrhage completed on 06/01 at the time of admission. Patient downgraded from ICU and remains on telemetry floor. Patient status post PEG tube placement and no issues with PEG per notes. Patient started on Augmentin and mental status remains essentially the same in which she does wake up to voice but speech is not coherent. Neurologically stable at this time. Continue medical optimization, infectious mgmt, hydration and nutrition via PEG
[2019-07-02] MEDS ORDERED: traMADol HCL 50 MG TABLET PO PRN (09:00)
[2019-07-02] MEDS: AMOX TR/POTASSIUM CLAVULANATE 600 MG/5 ML PEG SCH (09:00)
--- NOTE | 2019-07-02 10:19 | PN ---
Progress Note (short form) - Note Progress Note: NAD on RA. No fevers recorded. No acute events overnight. Intake & Output 06/29/19 06/30/19 07/01/19 07/02/19 23:59 23:59 23:59 23:59 Intake Total 320 1490 1720 850 Output Total 1 400 Balance 319 1490 1320 850 Last Vital Signs Temp Pulse Resp BP Pulse Ox 97.5 F L 88 20 121/71 96 07/02/19 05:49 07/02/19 05:49 07/02/19 05:49 07/02/19 05:49 07/02/19 01:00 Active Medications Acetaminophen (Tylenol Oral Solution -) 650 mg PO Q6H PRN PRN Reason: pain 1-5 Last Admin: 06/29/19 23:33 Dose: 650 mg Albuterol Sulfate (Ventolin 0.083% Nebulizer Soln -) 1 amp NEB Q8H PRN PRN Reason: SHORT OF BREATH/WHEEZING Amoxicillin/Clavulanate Potassium (Augmentin 600 Mg/5 Ml Oral Suspension -) 600 mg PEG BID@0800,1730 [facility] Stop: 07/02/19 17:29 Last Admin: 07/01/19 22:25 Dose: 5 ml Bacitracin (Bacitracin -) 1 applic TP TUTA [facility] Last Admin: 06/30/19 09:06 Dose: Not Given Carbidopa/Levodopa (Sinemet 25/100 -) 2 each PO TID@0700,1200,1900 [facility] Last Admin: 07/02/19 06:14 Dose: 2 each Famotidine (Pepcid) 20 mg PO BID [facility] Last Admin: 07/01/19 22:25 Dose: 20 mg Insulin Aspart (Novolog Vial Sliding Scale -) 1 vial SQ HS [facility]; Protocol Last Admin: 07/01/19 22:26 Dose: Not Given Non-Formulary Medication (Rotigotine [Neupro]) 1 each TD DAILY [facility] Last Admin: 07/01/19 09:28 Dose: 1 each Rivastigmine (Exelon Patch 4.6mg/24 Hours -) 1 each TD DAILY [facility] Last Admin: 07/01/19 09:27 Dose: 1 each Tramadol HCl (Ultram -) 25 mg PO Q6H PRN PRN Reason: PAIN LEVEL 6-10 Gen: NAD at rest Heart: RRR Lung: scattered rhonchi Abd: soft, nontender Ext: no edema Laboratory Results - last 24 hr 07/01/19 22:03 POC Glucometer 136 A/P Acute Hypercapneic Respiratory Failure improved Pneumonia likely Aspiration Sepsis Lactic Acidosis Acute Kidney Injury HTN DM Parkinsons Dementia Anemia - Augmentin - inhaled bronchodilators - o2 to keep SpO2 >90% - enteral feeds - aspiration precautions - DVT prophylaxis - d/c planning Dr Collins
[2019-07-02] MEDS: FAMOTIDINE 40 MG/5 ML ORAL SUSPENSION PO SCH (10:53)
[2019-07-02] MEDS ORDERED: PT OWN MED DRAWER 7, Y5N ONE (10:57)
[2019-07-02] MEDS: RIVASTIGMINE 4.6 MG/24 HOURS TRANSDERMAL PATCH TD SCH (11:00)
[2019-07-02] MEDS: PATIENT'S OWN MEDICATION (NON-FORMULARY) (Rotigotine [Neupro] 1 EACH) TD SCH (11:00)
--- NOTE | 2019-07-02 14:19 | PN ---
Teaching Attending Note Name of Resident: Miguel A Stovall ATTENDING PHYSICIAN STATEMENT I saw and evaluated the patient. I reviewed the resident's note and discussed the case with the resident. I agree with the resident's findings and plan as documented. SUBJECTIVE: No events over night . OBJECTIVE: MMM.answered some questions. speaks with her eyes closed CV: RRR. Lungs: clear anteriorly . Abd: soft, NT, ND, NL BS. PEG in place with intact surrounding skin Ext: no edema on feet. L heel scab . no erythema ASSESSMENT AND PLAN: 79 y/o lady with h/o Parkinson Disease and dementia who presented with AMS. 1- Acute hypercapnic resp failure. Resolved. 2- Aspiration PNA 3- JOS: resolved 4- Rhabdo : resolved 5- Thrombocytopenia: resolved 6- h/o HTN 7- h/o DM . last A1c 6.2 8- AMS: acute metabolic encephalopathy . Improved 9- h/o dementia 10- Microcytic anemia 11- contaminant blood cx 12- Unstageable sacral decub ulcer, s/p debridment 06/20 Plan: - last day of augmentin today - wound vac to be changed by VNS three times a week - cont Glucerna through PEG . - cont Sinemet - check A1c . - SSI while here - f/u with dr. Hansen for wound care and VAc instruction patient was discharged yesterday but family declined as the bed and the air mattress were not delivered yet . Expected delivery is tomorrow
[2019-07-02] MEDS: traMADol HCL 50 MG TABLET PO PRN (14:35)
--- NOTE | 2019-07-02 15:27 | PN ---
Progress Note (short form) - Note Progress Note: s: awake, alert, appears comfortable Current Medications Acetaminophen (Tylenol Oral Solution -) 650 mg PO Q6H PRN PRN Reason: pain 1-5 Last Admin: 06/29/19 23:33 Dose: 650 mg Albuterol Sulfate (Ventolin 0.083% Nebulizer Soln -) 1 amp NEB Q8H PRN PRN Reason: SHORT OF BREATH/WHEEZING Amoxicillin/Clavulanate Potassium (Augmentin 600 Mg/5 Ml Oral Suspension -) 600 mg PEG BID@0800,1730 [facility] Stop: 07/02/19 17:29 Last Admin: 07/02/19 09:00 Dose: 5 ml Bacitracin (Bacitracin -) 1 applic TP TUTHSA [facility] Last Admin: 06/30/19 09:06 Dose: Not Given Carbidopa/Levodopa (Sinemet 25/100 -) 2 each PO TID@0700,1200,1900 [facility] Last Admin: 07/02/19 11:01 Dose: 2 each Famotidine (Pepcid) 20 mg PO BID [facility] Last Admin: 07/02/19 10:53 Dose: 20 mg Insulin Aspart (Novolog Vial Sliding Scale -) 1 vial SQ HS [facility]; Protocol Last Admin: 07/01/19 22:26 Dose: Not Given Non-Formulary Medication (Rotigotine [Neupro]) 1 each TD DAILY [facility] Last Admin: 07/02/19 11:00 Dose: 1 each Rivastigmine (Exelon Patch 4.6mg/24 Hours -) 1 each TD DAILY [facility] Last Admin: 07/02/19 11:00 Dose: 1 each Tramadol HCl (Ultram -) 50 mg PO Q8H PRN PRN Reason: PAIN LEVEL 6-10 Last Admin: 07/02/19 14:35 Dose: 50 mg Vital Signs Period Temp Pulse Resp BP Sys/Campbell Pulse Ox Last 24 Hr 97.5 F-98.2 F 84-91 18-20 104-136/64-81 96-98 Constitutional: Yes: No Distress, Calm Neck: Yes: Supple, Trachea Midline Respiratory: Yes: Regular, Diminished Gastrointestinal: Yes: Normal Bowel Sounds, Soft Cardiovascular: Yes: Regular Rate and Rhythm JVD: No Extremities: No: Cold Edema: No Integumentary: No: Jaundice Neurological: Yes: awake alert confused Psychiatric: No: Agitated echo 05/2019 nl LV/RV function, impaired relaxation, elevated filling pressures, RV not well visualized, mild to mod MR, mild mod TR CXR: no congestion/effusions (+ atx) PNA, sepsis, acute respiratory failure 2/2 suspected aspiration: - manage per critical care, ID - improving - nl LV function on echo HTN: - stable off meds DM: - manage per primary dementia, parkinson's: - manage per primary - now s/p peg JOS, rhabdo: - renal fxn improved
[2019-07-02] MEDS: BACITRACIN 15 GM TUBE TOPICAL OINTMENT TP SCH (15:55)
--- NOTE | 2019-07-02 17:37 | PN ---
Physical Exam: SUBJECTIVE: Patient seen and examined NAEON Moaned in pain intermittently OBJECTIVE: Vital Signs Period Temp Pulse Resp BP Sys/Campbell Pulse Ox Last 24 Hr 97.5 F-99.0 F 83-91 18-20 104-136/64-81 96-98 GENERAL: Lethargic. Soft moaning and nonsensical speech to questioning HEAD: NC/AT EYES: extraocular movements tracking movement briefly, sclera anicteric, conjunctiva clear. No ptosis. ENT: Ears normal, nares patent. NECK: Trachea midline, full range of motion, supple. LUNGS: Breath sounds equal, mildly coarse BS w/ wheezes bilaterally. Breathing on RA HEART: Regular rate and rhythm, S1, S2 without murmur, rub or gallop. ABDOMEN: Soft, nontender, nondistended, normoactive bowel sounds, no guarding, no rebound. PEG in Left-sided abd. TF running. SACRUM: sacral wound with overlying wound VAC, with SS drainage in canister EXTREMITIES: 2+ pulses, warm, well-perfused, no edema. BLE with nonpitting edema. DP2+ b/l NEUROLOGICAL: slightly opening eyes to loud questioning. Spontaneously lifting arms intermittently. Soft moaning and nonsensical speech to questioning SKIN: Warm, dry, normal turgor, no rashes or lesions noted Laboratory Results - last 24 hr 07/01/19 22:03 POC Glucometer 136 Active Medications Generic Name Dose Route Start Last Admin Trade Name Freq PRN Reason Stop Dose Admin Acetaminophen 650 mg 06/27/19 17:23 06/29/19 23:33 Tylenol Oral Solution - PO 650 mg Q6H PRN Administration pain 1-5 Bacitracin 1 applic 06/30/19 08:15 06/30/19 09:06 Bacitracin - TP Not Given TUTHSA VASYL Carbidopa/Levodopa 2 each 06/19/19 19:00 07/02/19 11:01 Sinemet 25/100 - PO 2 each TID@0700,1200,1900 VASYL Administration Famotidine 20 mg 06/19/19 22:00 07/02/19 10:53 Pepcid PO 20 mg BID VASYL Administration Insulin Aspart 1 vial 06/26/19 16:45 07/01/19 22:26 Novolog Vial Sliding Scale - SQ Not Given HS VASYL Protocol Non-Formulary Medication 1 each 06/20/19 10:00 07/02/19 11:00 Rotigotine [Neupro] TD 1 each DAILY VASYL Administration Rivastigmine 1 each 06/20/19 10:00 07/02/19 11:00 Exelon Patch 4.6mg/24 Hours - TD 1 each DAILY VASYL Administration Tramadol HCl 50 mg 07/02/19 13:57 07/02/19 14:35 Ultram - PO 50 mg Q8H PRN Administration PAIN LEVEL 6-10 ASSESSMENT/PLAN: 79y/o female with Parkinson's and dementia who presents with AMS and cough x 4 days. At baseline she is non-ambulatory and mental status changes from day to day (some days she is alert and oriented, can speak sentences, other days she does not speak at all). Admitted for AMS. Likely aspiration PNA. Pt was hypoxic to the 80s at ED presentation. Intubated for increased work of breathing. Flu negative. Atelectasis vs infiltrate at Left base. Extubated on 06/09. Repeat CTH on 06/11/19 by Neuro, w/o significant interval change; possibly chronic and superimposed sinusitis of Left maxillary antrum and sphenoid sinus. Daughter expresses desire to avoid PEG, has strong belief that optimization of Parkinson' s and Dementia drugs will help pt resolve AMS. Received zosyn x8d(06/01 -06/13) for possible aspiration PNA. Failing bedside S&S evaluation. TF via NGT. Solumedrol stopped on 06/15/19. IR(Carmencita) consult for possible PEG. Sacral wound worsening which prompted Sacral Decubitus Wound Debridement(Jade, ). Having fevers, possibly from Left-sided infiltrate vs sacral wound infection. Sacral wound has been VAC'd. s/p IR PEG 06/23/19. Awaiting home setup( low air loss mattress and a semi-electric hospital bed, requiring frequent body position changes, which she cannot complete independently and are not feasible w / a regular bed to alleviate pain, prevent aspiration, and prevent further skin breakdown(Right buttock w/ unstageable pressure ulcer, Left buttock healed pressure injury(4x2cm)) prior to discharge. Pt's daughter waiting home setup prior to discharge. #acute hypoxic respiratory failure 2/2 multilobar PNA and sepsis --resolved -CXR improved post-intubation > CXR(06/08/19): Left base w/ minimal atelectasis, sharp rib angles > CXR(06/21/19): L-base w/ atelectasis vs infiltrate > flu: negative > Echo: normal EF, impaired relaxation, elevated filling pressures, TR, MR - Ventolin TID PRN -solumedrol 20mg IVP BID --> 20mg IVP QD --> stopped -zosyn 3.375g Q8H --for PNA vs infected sacral wound -ID(Valentino) consult: --resumed Zosyn on 06/22/19 --Augmentin PEG BID, x7d (06/25 --) -Pulm(Jourdan) consult: --taper medrol --stopped on 06/15/19 #AMS --likely toxic metabolic encephalopathy from aspiration PNA -CT head negative for acute processes -CT H(06/11/19): no significant change, possible chronic/superimposed Left maxillary sinusitis -urine cx negative -blood cx(06/01/19): Staph coag negative in 1 bottle --likely contaminant -blood cx(06/03/19): NGTD -sputum cx(06/04/19): yeast-like -blood cx(06/22/19): NGTD -dietary following -speech following #inability to tolerate PO --2/2 AMS -NGT feeds(Glucerna) -PEG(Aaron-DiGiorno) evaluation --will defer to IR -IR(Karen) evaluation: placed 06/23/19 --ok for tube feeds #sacral decubitus ulcer --stable with wound vac -surgery(Jacob Estrada) consulted --Reposition every two hours while in bed --Air mattress recommended --Use drawsheets and Trendelenburg when repositioning to reduce friction and shear --Manageincontinence via timely cleansing, use of appropriate incontinence disposables and use of barrier ointment to intact skin --Ensure adequate hydration/nutrition, supplementation per primary team --Ensure off-loading to all bony areas (heels, ankles, hips and tailbone) with Allevyn/Optifoam --Clean open wounds with normal saline and apply bacitracin -Surgery(Hansen): --debridement 06/19/19 - pain control w/ tramadol #leukocytosis --resolved -from infection vs steroid use -no need to monitor #JOS --resolved -nephro following -Cardio following --diovan held --BP stable #anemia of chronic disease -microcytosis but low TIBC, unsaturated IBC, and high ferritin #Parkinson's and dementia -continue Sinimet, modified dose for NG tube, @0700, 1200, 1900 -rivostigmine patch -rotigotine patch #mild hypophosphatemia, resolved #lactic acidosis, resolved #transaminitis, improved DVT ppx SQH GI ppx protonix FEN monitor labs NG feeds: Glucerna through PEG Visit type - Emergency Visit Emergency Visit: No - New Patient This patient is new to me today: No - Critical Care Critical Care patient: No ATTENDING PHYSICIAN STATEMENT I saw and evaluated the patient. I reviewed the resident's note and discussed the case with the resident. I agree with the resident's findings and plan as documented. SUBJECTIVE: OBJECTIVE: ASSESSMENT AND PLAN:
[2019-07-03] MEDS: INSULIN SLIDING SCALE (NOVOLOG) 1 VIAL SQ SCH ×2 (00:17→22:17)
[2019-07-03] MEDS: FAMOTIDINE 40 MG/5 ML ORAL SUSPENSION PO SCH ×3 (00:17→22:18)
[2019-07-03] MEDS: CARBIDOPA/LEVODOPA 25/100 TABLET (FP) PO SCH ×3 (06:59→18:24)
--- NOTE | 2019-07-03 08:48 | PN ---
Progress Note (short form) - Note Progress Note: Neurology CHIEF COMPLAINT: AMS PCP: None HISTORY OF PRESENT ILLNESS: Ms. Prescott is an 79 year old female with PMH of Parkinson Disease and dementia who was BIBEMS with AMS x4 days at time of admission. Daughter was at bedside and that time and provided history. 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 At baseline she is non-ambulatory and mental status changes from day to day (some days she is alert and oriented, can speak sentences, other days she does not speak at all). Pt has had a productive cough of yellow sputum for 4 days before day of admission and has become increasingly confused and somnolent. Decreased appetite, unable to eat or drink anything. On day of admission, she was not responding at all and had a low grade fever. Daughter stated that pt has not complained of any symptoms (chest pain, abd pain , SOB, urinary complaints). On arrival to ED, pt was hypoxic in the 80s. Patient consulted for altered mental status. Ct of head reviewed and showed no evidence of a focal intracranial lesion or hemorrhage completed on 06/01 at the time of admission. Patient downgraded from ICU and currently on telemetry floor. Patient status post PEG tube placement and no issues with PEG per notes. No longer on Augmentin and patient being planned for discharge. Active Medications Acetaminophen (Tylenol Oral Solution -) 650 mg PO Q6H PRN PRN Reason: pain 1-5 Last Admin: 06/29/19 23:33 Dose: 650 mg Bacitracin (Bacitracin -) 1 applic TP TUTHSA [facility] Last Admin: 07/02/19 15:55 Dose: 1 applic Carbidopa/Levodopa (Sinemet 25/100 -) 2 each PO TID@0700,1200,1900 [facility] Last Admin: 07/03/19 06:59 Dose: 2 each Famotidine (Pepcid) 20 mg PO BID [facility] Last Admin: 07/03/19 00:17 Dose: 20 mg Insulin Aspart (Novolog Vial Sliding Scale -) 1 vial SQ [facility]; Protocol Last Admin: 07/03/19 00:17 Dose: Not Given Non-Formulary Medication (Rotigotine [Neupro]) 1 each TD DAILY [facility] Last Admin: 07/02/19 11:00 Dose: 1 each Rivastigmine (Exelon Patch 4.6mg/24 Hours -) 1 each TD DAILY VASYL Last Admin: 07/02/19 11:00 Dose: 1 each Tramadol HCl (Ultram -) 50 mg PO Q8H PRN PRN Reason: PAIN LEVEL 6-10 Last Admin: 07/02/19 14:35 Dose: 50 mg PHYSICAL EXAMINATION Vital Signs Period Temp Pulse Resp BP Sys/Campbell Pulse Ox Last 24 Hr 97.4 F-99.3 F 79-89 18-18 104-136/53-76 95-98 GENERAL: Somnolent, slightly responsive to sternal rub. HEAD: Normal with no signs of trauma. EYES: Pupils equal, round and reactive to light, extraocular movements intact, sclera anicteric, conjunctiva clear. No lid lag. EARS, NOSE, THROAT: Ears normal, nares patent, oropharynx clear without exudates. Dry mucous membranes. NECK: Normal range of motion, supple without lymphadenopathy, JVD, or masses. LUNGS: Inspiratory and expiratory wheezes throughout, accessory muscle use. HEART: Regular rate and rhythm, normal S1 and S2 without murmur, rub or gallop. ABDOMEN: Soft, nontender, not distended, normoactive bowel sounds, no guarding, no rebound, no masses. No hepatomegaly or splenomegaly. MUSCULOSKELETAL: Normal range of motion at all joints. No bony deformities or tenderness. No CVA tenderness. UPPER EXTREMITIES: 2+ pulses, warm, well-perfused. No cyanosis. No clubbing. No peripheral edema. LOWER EXTREMITIES: 2+ pulses, warm, well-perfused. No calf tenderness. No peripheral edema. NEUROLOGICAL: Unable to assess 2/2 mental status. PSYCHIATRIC: Cooperative. Good eye contact. Appropriate mood and affect. SKIN: Warm, dry, normal turgor, normal capillary refill. Sacral decubitus ulcer with sloughing skin and erythema. CBCD WBC 11.4 K/mm3 (4.0-10.0) H 06/29/19 10:25 RBC 4.15 M/mm3 (3.60-5.2) 06/29/19 10:25 Hgb 9.6 GM/dL (10.7-15.3) L 06/29/19 10:25 Hct 30.3 % (32.4-45.2) L 06/29/19 10:25 MCV 73.0 fl (80-96) L 06/29/19 10:25 MCHC 31.9 g/dl (32.0-36.0) L 06/29/19 10:25 RDW 16.9 % (11.6-15.6) H 06/29/19 10:25 Plt Count 299 K/MM3 (134-434) D 06/29/19 10:25 MPV 8.5 fl (7.5-11.1) 06/29/19 10:25 CMP Sodium 134 mmol/L (136-145) L 06/29/19 10:25 Potassium 4.3 mmol/L (3.5-5.1) 06/29/19 10:25 Chloride 100 mmol/L (98-107) 06/29/19 10:25 Carbon Dioxide 26 mmol/L (21-32) 06/29/19 10:25 Anion Gap 8 MMOL/L (8-16) 06/29/19 10:25 BUN 21.6 mg/dL (7-18) H 06/29/19 10:25 Creatinine 0.7 mg/dL (0.55-1.3) 06/29/19 10:25 Random Glucose 115 mg/dL (74-106) H 06/29/19 10:25 Calcium 8.7 mg/dL (8.5-10.1) 06/29/19 10:25 Total Bilirubin 0.4 mg/dL (0.2-1) 06/29/19 10:25 AST 27 U/L (15-37) 06/29/19 10:25 ALT 11 U/L (13-61) L 06/29/19 10:25 Alkaline Phosphatase 85 U/L (45-117) 06/29/19 10:25 Total Protein 6.8 g/dl (6.4-8.2) 06/29/19 10:25 Albumin 2.7 g/dl (3.4-5.0) L 06/29/19 10:25 CARDIAC ENZYMES Creatine Kinase 281 U/L (26-192) H 06/04/19 06:30 Troponin I < 0.02 ng/ml (0.00-0.05) 06/01/19 04:07 ASSESSMENT/PLAN: Ms. Prescott is an 79 year old female with PMH of Parkinson Disease and dementia who was BIBEMS with AMS x4 days at time of admission. Daughter was at bedside and that time and provided history. 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 At baseline she is non-ambulatory and mental status changes from day to day (some days she is alert and oriented, can speak sentences, other days she does not speak at all). Pt has had a productive cough of yellow sputum for 4 days before day of admission and has become increasingly confused and somnolent. Decreased appetite, unable to eat or drink anything. On day of admission, she was not responding at all and had a low grade fever. Daughter stated that pt has not complained of any symptoms (chest pain, abd pain , SOB, urinary complaints). On arrival to ED, pt was hypoxic in the 80s. Patient consulted for altered mental status. Ct of head reviewed and showed no evidence of a focal intracranial lesion or hemorrhage completed on 06/01 at the time of admission. Patient downgraded from ICU and remains on telemetry floor. Patient status post PEG tube placement and no issues with PEG per notes. Patient started on Augmentin and mental status remains essentially the same in which she does wake up to voice but speech is not coherent. Neurologically stable at this time. Continue medical optimization, infectious mgmt, hydration and nutrition via PEG. No longer on Augmentin and patient being planned for discharge. Discharge planning as per primary team, case management, no objection at this time.
[2019-07-03] MEDS: PATIENT'S OWN MEDICATION (NON-FORMULARY) (Rotigotine [Neupro] 1 EACH) TD SCH (10:49)
[2019-07-03] MEDS: RIVASTIGMINE 4.6 MG/24 HOURS TRANSDERMAL PATCH TD SCH (10:50)
--- NOTE | 2019-07-03 15:12 | PN ---
Progress Note (short form) - Note Progress Note: s: awake, alert, confused, appears comfortable Current Medications Generic Name Dose Route Start Last Admin Trade Name Ethanq PRN Reason Stop Dose Admin Acetaminophen 650 mg 06/27/19 17:23 06/29/19 23:33 Tylenol Oral Solution - PO 650 mg Q6H PRN Administration pain 1-5 Bacitracin 1 applic 06/30/19 08:15 07/02/19 15:55 Bacitracin - TP 1 applic TUTHSA VASYL Administration Carbidopa/Levodopa 2 each 06/19/19 19:00 07/03/19 12:30 Sinemet 25/100 - PO 2 each TID@0700,1200,1900 VASYL Administration Famotidine 20 mg 06/19/19 22:00 07/03/19 12:31 Pepcid PO 20 mg BID VASYL Administration Insulin Aspart 1 vial 06/26/19 16:45 07/03/19 00:17 Novolog Vial Sliding Scale - SQ Not Given HS VASYL Protocol Non-Formulary Medication 1 each 06/20/19 10:00 07/03/19 10:49 Rotigotine [Neupro] TD 1 each DAILY VASYL Administration Rivastigmine 1 each 06/20/19 10:00 07/03/19 10:50 Exelon Patch 4.6mg/24 Hours - TD 1 each DAILY VASYL Administration Tramadol HCl 50 mg 07/02/19 13:57 07/02/19 14:35 Ultram - PO 50 mg Q8H PRN Administration PAIN LEVEL 6-10 Vital Signs Period Temp Pulse Resp BP Sys/Campbell Pulse Ox Last 24 Hr 97.4 F-99.3 F 79-89 18-18 104-119/53-60 95-98 Constitutional: Yes: No Distress, Calm Neck: Yes: Supple, Trachea Midline Respiratory: Yes: Regular, Diminished Gastrointestinal: Yes: Normal Bowel Sounds, Soft Cardiovascular: Yes: Regular Rate and Rhythm JVD: No Extremities: No: Cold Edema: No Integumentary: No: Jaundice Neurological: Yes: awake alert confused Psychiatric: No: Agitated CBC, BMP 06/29/19 10:25 06/29/19 10:25 echo 05/2019 nl LV/RV function, impaired relaxation, elevated filling pressures, RV not well visualized, mild to mod MR, mild mod TR CXR: no congestion/effusions (+ atx) PNA, sepsis, acute respiratory failure 2/2 suspected aspiration: - manage per critical care, ID; - intubated after suspected aspiration event, now extubated - nl LV function on echo HTN: - stable off meds DM: - manage per primary dementia, parkinson's: - manage per primary - now s/p peg JOS, rhabdo: - renal fxn improved
--- NOTE | 2019-07-03 17:37 | PN ---
Physical Exam: SUBJECTIVE: Patient seen and examined NAEON Not communicating. Spontaneous Moaning OBJECTIVE: Vital Signs Period Temp Pulse Resp BP Sys/Campbell Pulse Ox Last 24 Hr 97.4 F-99.5 F 78-89 18-18 104-119/53-62 95-98 GENERAL: Lethargic. Soft moaning and nonsensical speech to questioning HEAD: NC/AT EYES: extraocular movements tracking movement briefly, sclera anicteric, conjunctiva clear. No ptosis. ENT: Ears normal, nares patent. NECK: Trachea midline, full range of motion, supple. LUNGS: Breath sounds equal, mildly coarse BS w/ wheezes bilaterally. Breathing on RA HEART: Regular rate and rhythm, S1, S2 without murmur, rub or gallop. ABDOMEN: Soft, nontender, nondistended, normoactive bowel sounds, no guarding, no rebound. PEG in Left-sided abd. TF running. SACRUM: sacral wound with overlying wound VAC, with SS drainage in canister EXTREMITIES: 2+ pulses, warm, well-perfused, no edema. BLE with nonpitting edema. DP2+ b/l NEUROLOGICAL: slightly opening eyes to loud questioning. Spontaneously lifting arms intermittently. Soft moaning and nonsensical speech to questioning SKIN: Warm, dry, normal turgor, no rashes or lesions noted Laboratory Results - last 24 hr 07/02/19 07/03/19 17:30 00:12 POC Glucometer 129 Hemoglobin A1c % 6.2 Active Medications Generic Name Dose Route Start Last Admin Trade Name Freq PRN Reason Stop Dose Admin Acetaminophen 650 mg 06/27/19 17:23 06/29/19 23:33 Tylenol Oral Solution - PO 650 mg Q6H PRN Administration pain 1-5 Bacitracin 1 applic 06/30/19 08:15 07/02/19 15:55 Bacitracin - TP 1 applic TUTA VASYL Administration Carbidopa/Levodopa 2 each 06/19/19 19:00 07/03/19 12:30 Sinemet 25/100 - PO 2 each TID@0700,1200,1900 V[facility] Administration Famotidine 20 mg 06/19/19 22:00 07/03/19 12:31 Pepcid PO 20 mg BID VASYL Administration Insulin Aspart 1 vial 06/26/19 16:45 07/03/19 00:17 Novolog Vial Sliding Scale - SQ Not Given HS VASYL Protocol Non-Formulary Medication 1 each 06/20/19 10:00 07/03/19 10:49 Rotigotine [Neupro] TD 1 each DAILY VASYL Administration Rivastigmine 1 each 06/20/19 10:00 07/03/19 10:50 Exelon Patch 4.6mg/24 Hours - TD 1 each DAILY [facility]YL Administration Tramadol HCl 50 mg 07/02/19 13:57 07/02/19 14:35 Ultram - PO 50 mg Q8H PRN Administration PAIN LEVEL 6-10 ASSESSMENT/PLAN: 79y/o female with Parkinson's and dementia who presents with AMS and cough x 4 days. At baseline she is non-ambulatory and mental status changes from day to day (some days she is alert and oriented, can speak sentences, other days she does not speak at all). Admitted for AMS. Likely aspiration PNA. Pt was hypoxic to the 80s at ED presentation. Intubated for increased work of breathing. Flu negative. Atelectasis vs infiltrate at Left base. Extubated on 06/09. Repeat CTH on 06/11/19 by Neuro, w/o significant interval change; possibly chronic and superimposed sinusitis of Left maxillary antrum and sphenoid sinus. Daughter expresses desire to avoid PEG, has strong belief that optimization of Parkinson' s and Dementia drugs will help pt resolve AMS. Received zosyn x8d(06/01 -06/13) for possible aspiration PNA. Failing bedside S&S evaluation. TF via NGT. Solumedrol stopped on 06/15/19. IR(Carmencita) consult for possible PEG. Sacral wound worsening which prompted Sacral Decubitus Wound Debridement(Jade, ). Having fevers, possibly from Left-sided infiltrate vs sacral wound infection. Sacral wound has been VAC'd. s/p IR PEG 06/23/19. Awaiting home setup( low air loss mattress and a semi-electric hospital bed, requiring frequent body position changes, which she cannot complete independently and are not feasible w / a regular bed to alleviate pain, prevent aspiration, and prevent further skin breakdown(Right buttock w/ unstageable pressure ulcer, Left buttock healed pressure injury(4x2cm)) prior to discharge. Tramadol PRN for pain. Pt's daughter waiting home setup prior to discharge. #acute hypoxic respiratory failure 2/2 multilobar PNA and sepsis --resolved -CXR improved post-intubation > CXR(06/08/19): Left base w/ minimal atelectasis, sharp rib angles > CXR(06/21/19): L-base w/ atelectasis vs infiltrate > flu: negative > Echo: normal EF, impaired relaxation, elevated filling pressures, TR, MR - Ventolin TID PRN -solumedrol 20mg IVP BID --> 20mg IVP QD --> stopped -zosyn 3.375g Q8H --for PNA vs infected sacral wound -ID(Valentino) consult: --resumed Zosyn on 06/22/19 --Augmentin PEG BID, x7d (06/25 --) -Pulm(Jourdan) consult: --taper medrol --stopped on 06/15/19 #AMS --likely toxic metabolic encephalopathy from aspiration PNA -CT head negative for acute processes -CT H(06/11/19): no significant change, possible chronic/superimposed Left maxillary sinusitis -urine cx negative -blood cx(06/01/19): Staph coag negative in 1 bottle --likely contaminant -blood cx(06/03/19): NGTD -sputum cx(06/04/19): yeast-like -blood cx(06/22/19): NGTD -dietary following -speech following #inability to tolerate PO --2/2 AMS -NGT feeds(Glucerna) -PEG(Aaron-DiGiorno) evaluation --will defer to IR -IR(Karen) evaluation: placed 06/23/19 --ok for tube feeds #sacral decubitus ulcer --stable with wound vac -surgery(Jacob Estrada) consulted --Reposition every two hours while in bed --Air mattress recommended --Use drawsheets and Trendelenburg when repositioning to reduce friction and shear --Manageincontinence via timely cleansing, use of appropriate incontinence disposables and use of barrier ointment to intact skin --Ensure adequate hydration/nutrition, supplementation per primary team --Ensure off-loading to all bony areas (heels, ankles, hips and tailbone) with Allevyn/Optifoam --Clean open wounds with normal saline and apply bacitracin -Surgery(Hansen): --debridement 06/19/19 - pain control w/ tramadol #leukocytosis --resolved -from infection vs steroid use -no need to monitor #JOS --resolved -nephro following -Cardio following --diovan held --BP stable #anemia of chronic disease -microcytosis but low TIBC, unsaturated IBC, and high ferritin #Parkinson's and dementia -continue Sinimet, modified dose for NG tube, @0700, 1200, 1900 -rivostigmine patch -rotigotine patch #mild hypophosphatemia, resolved #lactic acidosis, resolved #transaminitis, improved DVT ppx SQH GI ppx protonix FEN monitor labs NG feeds: Glucerna through PEG Visit type - Emergency Visit Emergency Visit: No - New Patient This patient is new to me today: No - Critical Care Critical Care patient: No ATTENDING PHYSICIAN STATEMENT I saw and evaluated the patient. I reviewed the resident's note and discussed the case with the resident. I agree with the resident's findings and plan as documented. SUBJECTIVE: OBJECTIVE: ASSESSMENT AND PLAN:
--- NOTE | 2019-07-03 18:24 | PN ---
Teaching Attending Note Name of Resident: Miguel A Stovall ATTENDING PHYSICIAN STATEMENT I saw and evaluated the patient. I reviewed the resident's note and discussed the case with the resident. I agree with the resident's findings and plan as documented. SUBJECTIVE: no pain. OBJECTIVE: MMM. answered some questions. speaks with her eyes closed CV: RRR. Lungs: clear anteriorly . Abd: soft, NT, ND, NL BS. PEG in place with intact surrounding skin Ext: no edema on feet. no erythema ASSESSMENT AND PLAN: 79 y/o lady with h/o Parkinson Disease and dementia who presented with AMS. 1- Acute hypercapnic resp failure. Resolved. 2- Aspiration PNA 3- JOS: resolved 4- Rhabdo: resolved 5- Thrombocytopenia: resolved 6- h/o HTN 7- h/o DM . last A1c 6.2 8- AMS: acute metabolic encephalopathy . Improved 9- h/o dementia 10- Microcytic anemia 11- contaminant blood cx 12- Unstageable sacral decub ulcer, s/p debridment 06/20 Plan: - finished augmentin course - wound vac to be changed by VNS three times a week T,T,S - cont Glucerna through PEG. - cont Sinemet - A1c 6.2. sugar trend was reviewed. arcelia sugar has been well controlled in past couple weeks . will not dc home on any meds. elevation in sugar was when she was on steroids - f/u with dr. Hansen for wound care and VAc instruction D/w SW. daughter does not want to take patient home until bed and mattress are delivered, but she does not lease picker the phone when company calls her. so arrangements were not made. Sw to d/w patient 's daughter. if VNS can't be arranged fro tomorrow, then patient may go home with wound vac off and wet to dry dressing in place to be changed whenever it is soiled ( avoid soiling of wound vac if daughter can't manage before getting VNS training )
[2019-07-03] MEDS ORDERED: PT OWN MED DRAWER 7, Y5N ONE (21:13)
[2019-07-04] MEDS: CARBIDOPA/LEVODOPA 25/100 TABLET (FP) PO SCH ×2 (06:43→12:15)
[2019-07-04] MEDS: PATIENT'S OWN MEDICATION (NON-FORMULARY) (Rotigotine [Neupro] 1 EACH) TD SCH (09:49)
[2019-07-04] MEDS: RIVASTIGMINE 4.6 MG/24 HOURS TRANSDERMAL PATCH TD SCH (09:50)
[2019-07-04] MEDS: BACITRACIN 15 GM TUBE TOPICAL OINTMENT TP SCH (09:51)
[2019-07-04] MEDS: FAMOTIDINE 40 MG/5 ML ORAL SUSPENSION PO SCH (09:51)
[2019-07-04] MEDS: traMADol HCL 50 MG TABLET PO PRN (10:17)
[2019-07-04] MEDS ORDERED: INSULIN (NOVOLOG) ASPART 100 UNITS/ML 10ML VIAL ONE (12:01)
--- NOTE | 2019-07-04 12:37 | PN ---
Progress Note (short form) - Note Progress Note: PULMONARY Clinically no significant changes. Nonverbal. 98.7 Gen: NGT FEEDS IN PROGRESS Heart: RRR Lung: scattered rhonchi Abd: soft, nontender Ext no edema Labs/meds/notes/images reviewed A/P Acute Hypercapneic Respiratory Failure improving Pneumonia likely Aspiration Sepsis Lactic Acidosis Acute Kidney Injury HTN DM Parkinsons Dementia Sacral ulcer - inhaled bronchodilators - o2 to keep SpO2 >90% - aspiration precautions - DVT prophylaxis - Discussions for GOC Jermaine MOYER MD
--- NOTE | 2019-07-04 13:03 | PN ---
Teaching Attending Note Name of Resident: Miguel A Stovall ATTENDING PHYSICIAN STATEMENT I saw and evaluated the patient. I reviewed the resident's note and discussed the case with the resident. I agree with the resident's findings and plan as documented. SUBJECTIVE: no events over night patient ended up not leaving today OBJECTIVE: MMM.awake CV: RRR. Lungs: clear anteriorly . Abd: soft, NT, ND, NL BS. PEG in place with intact surrounding skin Ext: no edema on feet. no erythema ASSESSMENT AND PLAN: 79 y/o lady with h/o Parkinson Disease and dementia who presented with AMS. 1- Acute hypercapnic resp failure. Resolved. 2- Aspiration PNA 3- JOS: resolved 4- Rhabdo: resolved 5- Thrombocytopenia: resolved 6- h/o HTN 7- h/o DM . last A1c 6.2 8- AMS: acute metabolic encephalopathy . Improved 9- h/o dementia 10- Microcytic anemia 11- contaminant blood cx 12- Unstageable sacral decub ulcer, s/p debridment 06/20 Plan: - finished augmentin course - wound vac to be changed by VNS three times a week T,T,S. in mean time daughter to apply wet to dry dressing and change it daily and PRN when soiled waitng for VNS to train her at home - cont Glucerna through PEG. - cont Sinemet - A1c 6.2.no treatment at dc - f/u with dr. Hansen for wound care and VAc instruction Patient did not leave yesterday. Dc was arranged for 10 am this am , but daughter refused [employer] for transport. SW is trying to find another company for dc today.
--- NOTE | 2019-07-04 13:29 | DS ---
Physical Exam: SUBJECTIVE: Patient seen and examined OBJECTIVE: Vital Signs Period Temp Pulse Resp BP Sys/Campbell Pulse Ox Last 24 Hr 98.4 F-99.5 F 78-98 18-18 105-130/49-71 98-99 PHYSICAL EXAM GENERAL: Comfortable appearing. Pleasantly demented HEAD: NC/AT EYES: maintaining brief eye contact w/ questioning, sclera anicteric, conjunctiva clear. No ptosis. ENT: Ears normal, nares patent. NECK: Trachea midline, full range of motion, supple. LUNGS: Breath sounds equal, mildly coarse BS w/ wheezes bilaterally. Breathing on RA HEART: Regular rate and rhythm, S1, S2 without murmur, rub or gallop. ABDOMEN: Soft, nontender, nondistended, normoactive bowel sounds, no guarding, no rebound. PEG in Left-sided abd. TF running. SACRUM: sacral wound with overlying wound VAC, with SS drainage in canister EXTREMITIES: 2+ pulses, warm, well-perfused, no edema. BLE with nonpitting edema. DP2+ b/l NEUROLOGICAL: Oriented to Name. Soft and mostly inappropriate answers to questioning. Spontaneously lifting arms intermittently. Maintaining brief eye contact with questioning SKIN: Warm, dry, normal turgor, no rashes or lesions noted LABS Laboratory Results - last 24 hr 07/03/19 22:15 POC Glucometer 127 HOSPITAL COURSE: Date of Admission:06/01/19 Date of Discharge: 07/04/19 79y/o female with Parkinson's and dementia who presents with AMS and cough x 4 days. At baseline she is non-ambulatory and mental status changes from day to day (some days she is alert and oriented, can speak sentences, other days she does not speak at all). Admitted for AMS. Likely aspiration PNA. Pt was hypoxic to the 80s at ED presentation. Intubated for increased work of breathing. Flu negative. Atelectasis vs infiltrate at Left base. Extubated on 06/09. Repeat CTH on 06/11/19 by Neuro, w/o significant interval change; possibly chronic and superimposed sinusitis of Left maxillary antrum and sphenoid sinus. Daughter expresses desire to avoid PEG, has strong belief that optimization of Parkinson' s and Dementia drugs will help pt resolve AMS. Received zosyn x8d(06/01 -06/13) for possible aspiration PNA. Failing bedside S&S evaluation. TF via NGT. Solumedrol stopped on 06/15/19. Sacral wound worsening which prompted Sacral Decubitus Wound Debridement(Hansen, 06/19/19). Sacral wound has been VAC'd. s/p IR PEG(Carmencita, 06/23/19). Pt's family refused SNF and instead wanted pt home. Hospitalization prolonged d/t setting up home needs. Completed home setup(low air loss mattress and a semi-electric hospital bed, requiring frequent body position changes, which she cannot complete independently and are not feasible w / a regular bed to alleviate pain, prevent aspiration, and prevent further skin breakdown(Right buttock w/ unstageable pressure ulcer, Left buttock healed pressure injury(4x2cm)) prior to discharge. Wound vac intermittently clogging d /t stooling. Discussed with family to have patient WTD dressings for days of wound vac clogging. Completed Augmentin per GT. Patient safe for discharge home. Minutes to complete discharge: 35 Discharge Summary Problems reviewed: Yes Reason For Visit: ACUTE RESPIRATORY FAILURE, SEPSIS Current Active Problems JOS (acute kidney injury) (Acute) Acute respiratory failure (Acute) Altered mental status (Acute) Decubitus ulcer (Acute) Failure to thrive (Acute) Pneumonia (Acute) Respiratory failure with hypoxia (Acute) Rhabdomyolysis (Acute) Sepsis (Acute) Condition: Stable - Instructions Diet, Activity, Other Instructions: You were evaluated in the hospital for worsened mentation with cough. Imaging was suggestive of a pneumonia. Your respiratory status worsened to the point that you required intubation. You were in the ICU until your respiratory status improved. Gastrostomy Tube was placed to improve your feeding since you were having difficulty swallowing. You sacral wound required surgical debridment and you are going home with a wound vac. You were deemed stable for discharge. MEDICATIONS: - No need for more antibiotics. - Bactracin ointment, to apply a light application prior to applying new black Wound VAC - Your Sinemet was converted to formulation that can be administered through PEG tube. - resume home medications as previously prescribed ADDITIONAL INSTRUCTIONS: - Sacral Wound VAC dressing to be changed 3 times/weekly, Saturday-- Saturday - Wound Care: --change Wound VAC if it becomes soiled. --Reposition every two hours while in bed --Use drawsheets when repositioning to reduce friction and shear --Ensure off-loading to all bony areas (heels, ankles, hips and tailbone) with Allevyn/Optifoam -- saline packing to sacral wound daily and PRN ( if soiled) until wound vac is applied by VNS. cover the packing with clean dry gauze and tape Please follow-up with the physicians below: - Neurologist(Edgar): to discuss your dementia - Toby Maker(Karina): to discuss your recurrent pneumonia - Surgery(Jade): to evaluate your sacral wound -Follow up with for your sacral wound with within a week period. -you are being discharged home with wound VAc and VNS services Please seek immediate medical evaluation if you experience: - fever, chills - worsening lethargy - foul-smelling odor or pus in the urine or sacral wound Tube feeding : Glucerna 1.5 , 50 cc/hour, and 30 cc of free water /hour . flush before and after medications administrations Referrals: Edu Hansen MD [Staff Physician] - 1 Week (follow up with him in his office for wound care) aNthan Hernández MD [Staff Physician] - Hadley Hightower DO [Staff Physician] - 1 Week Edgar Collins MD [Staff Physician] - Disposition: VNS/HOME HEALTH CARE - Home Medications Comprehensive Discharge Medication List: Ambulatory Orders Ca/D3/Mag Ox/Zinc/Jar Capper/Ketan/Bor [Calcium 600-D3 Plus Caplet] 1 each PO HS Aspirin 81 mg PO DAILY 06/01/19 Melatonin 5 mg PO HS 06/01/19 Olanzapine [Zyprexa -] 7.5 mg PO DAILY 06/01/19 Omeprazole 20 mg PO DAILY 06/01/19 Rivastigmine [Exelon Patch 4.6MG/24 Hours -] 1 each TD DAILY 06/01/19 Rotigotine [Neupro] 1 each TD DAILY 06/01/19 Bacitracin - [Bacitracin Topical Ointment -] 1 applic TP TUTHSA #1 tube Carbidopa/Levodopa 25/100 [Sinemet 25/100 -] 2 each PO TID@0700,1200,1900 30 Days #180 tablet 07/01/19 Foam Bandage [Optifoam] 1 each TP DAILY #12 bandage 07/03/19 Gauze Bandage [Kerlix] 1 each TP DAILY #20 bandage 07/03/19 Sodium Chloride 0.9% Irrig [Sodium Chloride 0.9% Irrig. Soln 500 ml] 500 ml IR DAILY #5 btl 07/03/19 traMADol HCL [Ultram -] 50 mg PEG Q8H PRN #15 tablet MDD 3 tab a day 07/03/19 This patient is new to me today: No Emergency Visit: No Critical Care patient: No - Discharge Referral Referred to [facility] Med [facility].C[facility] No ATTENDING PHYSICIAN STATEMENT I saw and evaluated the patient. I reviewed the resident's note and discussed the case with the resident. I agree with the resident's findings and plan as documented. SUBJECTIVE: OBJECTIVE: ASSESSMENT AND PLAN:
[2019-07-04 18:27] VITALS: BP 103/53; PULSE 86; TEMP 99.2
== END 2019-07-04 15:42 | disposition home health service (06) | DRG 853 ==
LOC: JER 23:10 → JERBED 06-01 00:56 → JICU 06-01 06:40 → J4S 06-01 22:45 → JICU 06-04 21:20 → J4W 06-11 20:54 → J5S 06-14 12:52
PROVIDERS: ADMIT Internal Medicine; ATTEND Internal Medicine
PROC: 5A1955Z Respiratory Ventilation, Greater than 96 Consecutive Hours (ICD-10-PCS; 2019-06-04)
PROC: 0BH17EZ Insertion of Endotracheal Airway into Trachea, Via Natural or Artificial Opening (ICD-10-PCS; 2019-06-04)
PROC: 0KBN0ZZ Excision of Right Hip Muscle, Open Approach (ICD-10-PCS; 2019-06-19)
PROC: 0KBP0ZZ Excision of Left Hip Muscle, Open Approach (ICD-10-PCS; principal; 2019-06-19 10:50)
PROC: 0DH63UZ Insertion of Feeding Device into Stomach, Percutaneous Approach (ICD-10-PCS; 2019-06-23)
PROC: BD12ZZZ Fluoroscopy of Stomach (ICD-10-PCS; 2019-06-23)
DX: A41.9 Sepsis, unspecified organism (principal); L89.154 Pressure ulcer of sacral region, stage 4; J96.02 Acute respiratory failure with hypercapnia; J69.0 Pneumonitis due to inhalation of food and vomit; G93.41 Metabolic encephalopathy; J96.01 Acute respiratory failure with hypoxia; E87.2 Acidosis; N17.9 Acute kidney failure, unspecified; M62.82 Rhabdomyolysis; G20 Parkinson's disease; F03.90 Unspecified dementia, unspecified severity, without behavioral disturbance, psychotic disturbance, mood disturbance, and anxiety; D69.6 Thrombocytopenia, unspecified; R41.82 Altered mental status, unspecified; R62.7 Adult failure to thrive; D50.9 Iron deficiency anemia, unspecified; D72.829 Elevated white blood cell count, unspecified; E83.39 Other disorders of phosphorus metabolism; R74.0 Nonspecific elevation of levels of transaminase and lactic acid dehydrogenase [LDH]; R13.10 Dysphagia, unspecified; E11.9 Type 2 diabetes mellitus without complications
CPT/HCPCS: 31500; 36415; 36600; 49440; 70450-TC; 71045-TC-FY; 74018-TC-FY; 76700-TC; 76775-TC; 80048; 80053; 81003; 82140; 82375; 82550; 82553; 82565; 82607; 82728; 82803; 82962; 83036; 83050; 83540; 83550; 83605; 83735; 83880; 84100; 84300; 84443; 84484; 85025; 85027; 85610; 85730; 86593; 86850; 86900; 86901; 87040; 87070; 87086; 87186; 87205; 87804; 87899; 88304-TC; 93005; 93010; 93306-TC; 94002; 94640; 94760; 99285-25; J0131; J1644; J3480; J7030

== ENCOUNTER 2019-07-09 10:52 | Inpatient (IN) | payer MEDICARE, OTHER ==
--- NOTE | 2019-07-09 11:28 | PDOC ---
History of Present Illness - General Chief Complaint: PICC Line Insertion Stated Complaint: PICC TUBE REPLACEMENT Time Seen by Provider: 07/09/19 11:10 History Source: Patient Exam Limitations: No Limitations - History of Present Illness Initial Comments: 07/09/19 11:13 HPI: 79yo F with PMH parkinsons, dementia (baseline: some days she is alert and oriented, can speak sentences, other days she does not speak at all), recently admitted with sepsis, low-profile G-tube placed, seen on 07/06 for dislodgment, 16F tube replaced, back today for dislodgment. Family reports that the tube came out sometime overnight between 10PM and 7:30AM, they are unsure when. Patient has not eaten since dislodgment. No fevers, chills, nausea, vomiting, pain, discharge or bleeding from the PEG site. All: NKDA PMH: Per chart PSH: Per chart Past History - Travel Traveled outside of the country in the last 30 days: No Close contact w/someone who was outside of country & ill: No - Past Medical History Allergies/Adverse Reactions: Allergies Allergy/AdvReac Type Severity Reaction Status Date / Time No Known Allergies Allergy Verified 07/09/19 11:16 Home Medications: Ambulatory Orders Ca/D3/Mag Ox/Zinc/Telephoner/Ketan/Bor [Calcium 600-D3 Plus Caplet] 1 each PO HS Aspirin 81 mg PO DAILY 06/01/19 Melatonin 5 mg PO HS 06/01/19 Olanzapine [Zyprexa -] 7.5 mg PO DAILY 06/01/19 Omeprazole 20 mg PO DAILY 06/01/19 Rivastigmine [Exelon Patch 4.6MG/24 Hours -] 1 each TD DAILY 06/01/19 Rotigotine [Neupro] 1 each TD DAILY 06/01/19 Bacitracin - [Bacitracin Topical Ointment -] 1 applic TP TUTHSA #1 tube Carbidopa/Levodopa 25/100 [Sinemet 25/100 -] 2 each PO TID@0700,1200,1900 30 Days #180 tablet 07/01/19 Foam Bandage [Optifoam] 1 each TP DAILY #12 bandage 07/03/19 Gauze Bandage [Kerlix] 1 each TP DAILY #20 bandage 07/03/19 Sodium Chloride 0.9% Irrig [Sodium Chloride 0.9% Irrig. Soln 500 ml] 500 ml IR DAILY #5 btl 07/03/19 Tramadol HCl 50 mg PO Q8H PRN #15 tablet MDD 3 tab 07/04/19 COPD: No Dementia: Yes HTN: Yes - Surgical History Orthopedic Surgery: Yes (bilateral knees) - Immunization History Immunization Up to Date: Yes - Psycho Social/Smoking Cessation Hx Smoking History: Never smoked Have you smoked in the past 12 months: No Hx Alcohol Use: No Drug/Substance Use Hx: No Substance Use Type: None Review of Systems - Review of Systems Able to Perform ROS?: No (dementia) *Physical Exam - Physical Exam 07/09/19 12:06 Constitutional: Appears stated age. No acute distress. HEENT: Normocephalic, atraumatic. EOMI. PERRLA. Neck: Full ROM. Trachea Midline. Cardiovascular: Regular heart rhythm. Normal S1 and S2. no murmurs. no pericardial friction rub. Respiratory: Normal work of breathing. No wheezing. No stridor. Gastrointestinal: 4 plastic pieces noted surrounding g-tube insertion site, no g -tube in place (in bag at bedside), no stoma noted, no surrounding erythema or discharge, no tenderness. Soft, flat, non-tender. Normal bowel sounds. No rebound, guarding, or masses. Extremities: Peripheral pulses intact and equal. No lower extremity edema noted. Neurological: CN 2-12 grossly intact. Moving all four extremities. Psych: Awake. Does not follow commands. Medical Decision Making - Medical Decision Making 07/09/19 12:00 79yo F with H parkinsons, dementia (baseline: some days she is alert and oriented, can speak sentences, other days she does not speak at all), recently admitted with sepsis, low-profile G-tube placed, seen on 07/06 for dislodgment, 16F tube replaced, back today for dislodgment again with no clear stoma on exam. Tube out for indeterminate period of time. - Replacement not attempted given no clear stoma - Call placed to Dr. Scott 07/09/19 13:36 - Spoke with Dr. Scott, tube placed by IR, Dr. Tse 07/09/19 13:50 - Spoke with Dr. Tse in Radiology Suite, will evaluate PEG 07/09/19 17:12 - Family at IR, refuses same tube replacement, wants a more permanent option - Will admit for Endoscopy / GI PEG placement - Patient will require decompression and IV nutrition until stoma is adequately healed for new PEG - Admission Labs / EKG ordered Dispo: Med/Surg - Will need non-emergent GI and Nutrition evaluation 07/09/19 19:07 - Endorsed to Dr. Salgado - F/u Labs, EKG, CXR, Admit to Hospitalist service Discharge - Discharge Information Problems reviewed: Yes Clinical Impression/Diagnosis: Problem with gastrostomy tube Condition: Guarded - Admission Yes - Follow up/Referral - Patient Discharge Instructions - Post Discharge Activity
--- NOTE | 2019-07-09 12:08 | PDOC ---
Attending Attestation - Resident Resident Name: Keanu De Paz - ED Attending Attestation I have performed the following: I have examined & evaluated the patient, The case was reviewed & discussed with the resident, I agree w/resident's findings & plan, Exceptions are as noted - HPI HPI: 07/09/19 12:06 79yoF presnets w/ PEG tube came out. Second visit for this complaint this week. Has a low-profile PEG tube and family states the tube has been problematic. - Physicial Exam PE: 07/09/19 12:06 NAD PEG site had a number of plastic/metallic round objects sutured in place, unable to visualize an insertion tract. abd soft ntnd. - Medical Decision Making 07/09/19 12:07 79yoF presnets w/ dislodged PEG tube, no visible tract. - GI for re-placement of PEG - dispo per GI.
[2019-07-09] MEDS ORDERED: SODIUM CHLORIDE 0.9% 500 ML INFUS.BAG IV ONE (16:14)
[2019-07-09] MEDS ORDERED: DEXTROSE 5%-NORMAL SALINE 1,000 ML IV ONE (16:14)
[2019-07-09] MEDS ORDERED: DEXTROSE 5%-NORMAL SALINE 1,000 ML IV SCH (16:15)
[2019-07-09 19:17] LABS: BASO % 0.4 % (0-2.0); EOS % 0.9 % (0-4.5); HEMOGLOBIN 9.1 GM/dL (10.7-15.3); LYMPH % 20.5 % (8-40); MCH 22.8 pg (25.7-33.7); MCHC 31.3 g/dl (32.0-36.0); MEAN CELL VOLUME 72.9 fl (80-96); MEAN PLT VOLUME 8.4 fl (7.5-11.1); MONO % 7.3 % (3.8-10.2); NEUT % 70.9 % (42.8-82.8); PLATELET COUNT 613 K/MM3 (134-434); RBC 3.98 M/mm3 (3.60-5.2); RDW 16.5 % (11.6-15.6); WHITE BLOOD COUNT 12.6 K/mm3 (4.0-10.0)
--- NOTE | 2019-07-09 19:35 | PDOC ---
*Physical Exam - Vital Signs Last Vital Signs Temp Pulse Resp BP Pulse Ox 98.7 F 94 H 16 105/71 100 07/09/19 11:00 07/09/19 11:00 07/09/19 11:00 07/09/19 11:00 07/09/19 11:00 ED Treatment Course - LABORATORY CBC & Chemistry Diagram: 07/09/19 18:35 07/09/19 18:35 - Medications Given in the ED: ED Medications Discontinued Medications Generic Name Dose Route Start Last Admin Trade Name Simone PRN Reason Stop Dose Admin Dextrose/Sodium Chloride 1,000 mls @ 1,000 mls/hr 07/09/19 16:14 07/09/19 16: 40 D5-Ns - IV 07/09/19 17:13 Not Given ONCE ONE Sodium Chloride 1,000 ml 07/09/19 16:14 07/09/19 16:40 Normal Saline - IV 07/09/19 16:15 Not Given ONCE ONE Medical Decision Making - Medical Decision Making 07/09/19 20:18 Received sign out. Admit pending labs, CXR, EKG Pt seen -EKG reviewed -Pain management for sacral ulcer: Ofirmev -Pending CXR (taken) -Labs reviewed. Of note, PLT 613k CBC,CMP WBC 12.6 K/mm3 (4.0-10.0) H 07/09/19 18:35 RBC 3.98 M/mm3 (3.60-5.2) 07/09/19 18:35 Hgb 9.1 GM/dL (10.7-15.3) L 07/09/19 18:35 Hct 29.0 % (32.4-45.2) L 07/09/19 18:35 MCV 72.9 fl (80-96) L 07/09/19 18:35 MCH 22.8 pg (25.7-33.7) L 07/09/19 18:35 MCHC 31.3 g/dl (32.0-36.0) L 07/09/19 18:35 RDW 16.5 % (11.6-15.6) H 07/09/19 18:35 Plt Count 613 K/MM3 (134-434) H D 07/09/19 18:35 MPV 8.4 fl (7.5-11.1) 07/09/19 18:35 Absolute Neuts (auto) 9.0 K/mm3 (1.5-8.0) H 07/09/19 18:35 Neutrophils % 70.9 % (42.8-82.8) 07/09/19 18:35 Lymphocytes % 20.5 % (8-40) D 07/09/19 18:35 Monocytes % 7.3 % (3.8-10.2) 07/09/19 18:35 Eosinophils % 0.9 % (0-4.5) 07/09/19 18:35 Basophils % 0.4 % (0-2.0) 07/09/19 18:35 Nucleated RBC % 0 % (0-0) 07/09/19 18:35 Sodium 139 mmol/L (136-145) 07/09/19 18:35 Potassium 4.2 mmol/L (3.5-5.1) 07/09/19 18:35 Chloride 105 mmol/L (98-107) 07/09/19 18:35 Carbon Dioxide 26 mmol/L (21-32) 07/09/19 18:35 Anion Gap 7 MMOL/L (8-16) L 07/09/19 18:35 BUN 25.9 mg/dL (7-18) H 07/09/19 18:35 Creatinine 0.6 mg/dL (0.55-1.3) 07/09/19 18:35 Est GFR (CKD-EPI)AfAm 99.07 07/09/19 18:35 Est GFR (CKD-EPI)NonAf 85.48 07/09/19 18:35 Random Glucose 147 mg/dL (74-106) H 07/09/19 18:35 Calcium 8.3 mg/dL (8.5-10.1) L 07/09/19 18:35 Total Bilirubin 0.2 mg/dL (0.2-1) 07/09/19 18:35 AST 20 U/L (15-37) 07/09/19 18:35 ALT 18 U/L (13-61) 07/09/19 18:35 Alkaline Phosphatase 71 U/L (45-117) 07/09/19 18:35 Total Protein 6.6 g/dl (6.4-8.2) 07/09/19 18:35 Albumin 2.4 g/dl (3.4-5.0) L 07/09/19 18:35 07/09/19 20:32 CXR reviewed Admit for G tube placement 07/09/19 20:49 Signed out to admitting team Discharge - Discharge Information Problems reviewed: Yes Clinical Impression/Diagnosis: Problem with gastrostomy tube Condition: Guarded - Admission Yes - Follow up/Referral - Patient Discharge Instructions - Post Discharge Activity
[2019-07-09 19:37] LABS: INR 1.3 (0.83-1.09); PROTHROMBIN TIME (PATIENT) 15.4 SEC (9.7-13.0)
[2019-07-09 19:40] LABS: ACTIVATED PTT 29.6 SECONDS (25.2-36.5)
[2019-07-09 19:54] LABS: ALBUMIN 2.4 g/dl (3.4-5.0); BILIRUBIN,TOTAL 0.2 mg/dL (0.2-1); BLOOD UREA NITROGEN 25.9 mg/dL (7-18); CALCIUM 8.3 mg/dL (8.5-10.1); CREATININE 0.6 mg/dL (0.55-1.3); POTASSIUM 4.2 mmol/L (3.5-5.1); TOT PROT 6.6 g/dl (6.4-8.2)
[2019-07-09] MEDS ORDERED: ACETAMINOPHEN 1000 MG/100 ML VIAL (NON FORMULARY) IVPB ONE (20:21)
[2019-07-09] MEDS ORDERED: ACETAMINOPHEN INJECTION 100 ML IVPB ONE (20:45)
--- NOTE | 2019-07-09 23:43 | HP ---
<Yumi Snow - Last Filed: 07/09/19 23:43> CHIEF COMPLAINT: G-Tube dislodgement PCP: None HISTORY OF PRESENT ILLNESS: 79 F with PMH of Parksinson's Disease, dementia, and recent admission for sepsis with discharge (07/04/2019), and recent G-Tube placement, who presents today after her G-tube was dislodged in the morning. Of note she was recently in the ED on 07/06 due to dislodgement of her G-tube, but at that time it was replaced by the ED team. Today her family noticed that her abdomen was distended greater than usual, and noticed that there was feed returning to the site of tube placement. Patient is at home with family who is taking care of her. She is at her baseline mental status, is lethargic and weak. She has no complaints of chest pain, shortness of breath, abdominal pain, nausea, or vomiting. Family notes that he she had a short course of diarrhea that has since resolved since earlier this week. On her prior admission she was discharged without antibiotics after completing her in-hospital course. ER course was notable for: (1) Tylenol IV was given and D5NS fluids were started (2) Recent Travel: None PAST MEDICAL HISTORY: Parkinson's, Dementia PAST SURGICAL HISTORY: B/L Knee replacement Social History: Smoking: denies Alcohol: denies Drugs: denies Allergies No Known Allergies Allergy (Verified 07/09/19 11:16) HOME MEDICATIONS: Home Medications Medication Instructions Recorded Ca/D3/Mag Ox/Zinc/Mica Patcher/Ketan/Bor 1 each PO HS 04/13/18 [Calcium 600-D3 Plus Caplet] Aspirin 81 mg PO DAILY 06/01/19 Melatonin 5 mg PO HS 06/01/19 Olanzapine [Zyprexa -] 7.5 mg PO DAILY 06/01/19 Omeprazole 20 mg PO DAILY 06/01/19 Rivastigmine [Exelon Patch 1 each TD DAILY 06/01/19 4.6MG/24 Hours -] Rotigotine [Neupro] 1 each TD DAILY 06/01/19 Bacitracin - [Bacitracin Topical 1 applic TP TUTHSA #1 tube 07/01/19 Ointment -] Carbidopa/Levodopa 25/100 [Sinemet 2 each PO TID@0700,1200,1900 30 07/01/19 25/100 -] Days #180 tablet Foam Bandage [Optifoam] 1 each TP DAILY #12 bandage 07/03/19 Gauze Bandage [Kerlix] 1 each TP DAILY #20 bandage 07/03/19 Sodium Chloride 0.9% Irrig [Sodium 500 ml IR DAILY #5 btl 07/03/19 Chloride 0.9% Irrig. Soln 500 ml] Tramadol HCl 50 mg PO Q8H PRN #15 tablet MDD 3 07/04/19 tab REVIEW OF SYSTEMS CONSTITUTIONAL: Present: generalized weakness Absent: fever, chills, diaphoresis, malaise, loss of appetite, weight change HEENT: Absent: rhinorrhea, nasal congestion, throat pain, throat swelling, difficulty swallowing, mouth swelling, ear pain, eye pain, visual changes CARDIOVASCULAR: Absent: chest pain, syncope, palpitations, irregular heart rate, lightheadedness , peripheral edema RESPIRATORY: Absent: cough, shortness of breath, dyspnea with exertion, orthopnea, wheezing, stridor, hemoptysis GASTROINTESTINAL: Present: abdominal distension Absent: abdominal pain, nausea, vomiting, diarrhea, constipation, melena, hematochezia GENITOURINARY: Absent: dysuria, frequency, urgency, hesitancy, hematuria, flank pain, genital pain MUSCULOSKELETAL: Absent: myalgia, arthralgia, joint swelling, back pain, neck pain SKIN: Present: chronic sacral wound Absent: rash, itching, pallor HEMATOLOGIC/IMMUNOLOGIC: Absent: easy bleeding, easy bruising, lymphadenopathy, frequent infections ENDOCRINE: Absent: unexplained weight gain, unexplained weight loss, heat intolerance, cold intolerance NEUROLOGIC: Absent: headache, focal weakness or paresthesias, dizziness, unsteady gait, seizure, mental status changes, bladder or bowel incontinence PSYCHIATRIC: Absent: anxiety, depression, suicidal or homicidal ideation, hallucinations. PHYSICAL EXAMINATION Vital Signs - 24 hr 07/09/19 07/09/19 11:00 22:41 Temperature 98.7 F 98.6 F Pulse Rate 94 H Pulse Rate [ 76 Apical] Respiratory 16 18 Rate Blood Pressure 105/71 Blood Pressure 100/67 [Right Arm] O2 Sat by Pulse 100 100 Oximetry (%) GENERAL: Oriented to self,easily arousable. HEAD: Normal with no signs of trauma. EYES: Does not open eyes to command. EARS, NOSE, THROAT: Dry mucus membranes NECK: Normal range of motion LUNGS: Breath sounds equal, clear to auscultation bilaterally. No wheezes, and no crackles. No accessory muscle use. HEART: Regular rate and rhythm, normal S1 and S2 without murmur, rub or gallop. ABDOMEN: Distended abdomen, G-Tube site has metallic armstrong in place. No erythema or drainage around site. G-Tube is bedside-removed. MUSCULOSKELETAL: Normal range of motion at all joints. No bony deformities or tenderness. No CVA tenderness. UPPER EXTREMITIES: 2+ pulses, warm, well-perfused. No cyanosis. No clubbing. No peripheral edema. LOWER EXTREMITIES: 2+ pulses, warm, well-perfused. No calf tenderness. No peripheral edema. NEUROLOGICAL: 3/5 strength in upper and lower extremities b/l SKIN: Sacral ulcer present with wound vac in place. Laboratory Results - last 24 hr 07/09/19 07/09/19 07/09/19 18:35 18:35 18:35 WBC 12.6 H RBC 3.98 Hgb 9.1 L Hct 29.0 L MCV 72.9 L MCH 22.8 L MCHC 31.3 L RDW 16.5 H Plt Count 613 H D MPV 8.4 Absolute Neuts (auto) 9.0 H Neutrophils % 70.9 Lymphocytes % 20.5 D Monocytes % 7.3 Eosinophils % 0.9 Basophils % 0.4 Nucleated RBC % 0 PT with INR 15.40 H INR 1.30 H PTT (Actin FS) 29.6 Sodium 139 Potassium 4.2 Chloride 105 Carbon Dioxide 26 Anion Gap 7 L BUN 25.9 H Creatinine 0.6 Est GFR (CKD-EPI)AfAm 99.07 Est GFR (CKD-EPI)NonAf 85.48 Random Glucose 147 H Calcium 8.3 L Total Bilirubin 0.2 AST 20 ALT 18 Alkaline Phosphatase 71 Total Protein 6.6 Albumin 2.4 L ASSESSMENT/PLAN: 79 F with PMH of Parksinson's Disease, dementia, and recent admission for sepsis with discharge (07/04/2019), and recent G-Tube placement presents with G- Tube dislodgement. 1) PEG tube placement - Unable to replace in ED - IR consulted, family wants a different version of tube placed. - Will admit to floors and follow IR recs - NG tube now for necessary oral meds - NPO 2) Failure to thrive -Patient currently receives all nutrition through G-Tube -Bedbound, weakness in all extremities -Dietary consult -D5NS @ 83 ml/hr 3) Sacral wound -Had I&D on previous admission -Was to follow up with Dr. Hansen as per family, Discharge summary lists [facility]. -Wound vac in place. -Consulting Dr. Hansen for continued wound care during admission 4) Thrombocytosis and Leukocytosis -Thrombocytosis of 613 -WBC of 12.6, was discharged with elevated WBC after finishing abx. -Likely reactive, patient is also dehydrated and anemic which may be contributing to thrombocytosis -Trend CBC 5) Hx of Parkinson's Disease -Continuing Sinamet NGT, Rivastigime and Ritogitine patches F: D5-NS @ 83 ml/hr E: Monitor CMP N: NPO, holding tube feeds if IR procedure can be done tomorrow Dispo: Admitted to Med/Surg ATTENDING PHYSICIAN STATEMENT I saw and evaluated the patient. I reviewed the resident's note and discussed the case with the resident. I agree with the resident's findings and plan as documented. SUBJECTIVE: OBJECTIVE: ASSESSMENT AND PLAN: <Loco Ferguson - Last Filed: 07/10/19 01:22> CHIEF COMPLAINT: PCP: HISTORY OF PRESENT ILLNESS: ER course was notable for: (1) (2) (3) Recent Travel: PAST MEDICAL HISTORY: PAST SURGICAL HISTORY: Social History: Smoking: Alcohol: Drugs: Allergies No Known Allergies Allergy (Verified 07/09/19 11:16) HOME MEDICATIONS: Home Medications Medication Instructions Recorded Ca/D3/Mag Ox/Zinc/Mica Patcher/Ketan/Bor 1 each PO HS 04/13/18 [Calcium 600-D3 Plus Caplet] Aspirin 81 mg PO DAILY 06/01/19 Melatonin 5 mg PO HS 06/01/19 Olanzapine [Zyprexa -] 7.5 mg PO DAILY 06/01/19 Omeprazole 20 mg PO DAILY 06/01/19 Rivastigmine [Exelon Patch 1 each TD DAILY 06/01/19 4.6MG/24 Hours -] Rotigotine [Neupro] 1 each TD DAILY 06/01/19 Bacitracin - [Bacitracin Topical 1 applic TP TUTHSA #1 tube 07/01/19 Ointment -] Carbidopa/Levodopa 25/100 [Sinemet 2 each PO TID@0700,1200,1900 30 07/01/19 25/100 -] Days #180 tablet Foam Bandage [Optifoam] 1 each TP DAILY #12 bandage 07/03/19 Gauze Bandage [Kerlix] 1 each TP DAILY #20 bandage 07/03/19 Sodium Chloride 0.9% Irrig [Sodium 500 ml IR DAILY #5 btl 07/03/19 Chloride 0.9% Irrig. Soln 500 ml] Tramadol HCl 50 mg PO Q8H PRN #15 tablet MDD 3 07/04/19 tab REVIEW OF SYSTEMS CONSTITUTIONAL: Absent: fever, chills, diaphoresis, generalized weakness, malaise, loss of appetite, weight change HEENT: Absent: rhinorrhea, nasal congestion, throat pain, throat swelling, difficulty swallowing, mouth swelling, ear pain, eye pain, visual changes CARDIOVASCULAR: Absent: chest pain, syncope, palpitations, irregular heart rate, lightheadedness , peripheral edema RESPIRATORY: Absent: cough, shortness of breath, dyspnea with exertion, orthopnea, wheezing, stridor, hemoptysis GASTROINTESTINAL: Absent: abdominal pain, abdominal distension, nausea, vomiting, diarrhea, constipation, melena, hematochezia GENITOURINARY: Absent: dysuria, frequency, urgency, hesitancy, hematuria, flank pain, genital pain MUSCULOSKELETAL: Absent: myalgia, arthralgia, joint swelling, back pain, neck pain SKIN: Absent: rash, itching, pallor HEMATOLOGIC/IMMUNOLOGIC: Absent: easy bleeding, easy bruising, lymphadenopathy, frequent infections ENDOCRINE: Absent: unexplained weight gain, unexplained weight loss, heat intolerance, cold intolerance NEUROLOGIC: Absent: headache, focal weakness or paresthesias, dizziness, unsteady gait, seizure, mental status changes, bladder or bowel incontinence PSYCHIATRIC: Absent: anxiety, depression, suicidal or homicidal ideation, hallucinations. PHYSICAL EXAMINATION Vital Signs - 24 hr 07/09/19 07/09/19 07/09/19 11:00 22:41 23:20 Temperature 98.7 F 98.6 F 97.4 F L Pulse Rate 94 H 67 Pulse Rate [ 76 Apical] Respiratory 16 18 18 Rate Blood Pressure 105/71 100/40 L Blood Pressure 100/67 [Right Arm] O2 Sat by Pulse 100 100 Oximetry (%) 07/09/19 07/09/19 23:45 23:51 Temperature 97.4 F L Pulse Rate 67 Pulse Rate [ Apical] Respiratory 18 Rate Blood Pressure 100/40 L Blood Pressure [Right Arm] O2 Sat by Pulse 97 Oximetry (%) GENERAL: Awake, alert, and fully oriented, in no acute distress. HEAD: Normal with no signs of trauma. EYES: Pupils equal, round and reactive to light, extraocular movements intact, sclera anicteric, conjunctiva clear. No lid lag. EARS, NOSE, THROAT: Ears normal, nares patent, oropharynx clear without exudates. Moist mucous membranes. NECK: Normal range of motion, supple without lymphadenopathy, JVD, or masses. LUNGS: Breath sounds equal, clear to auscultation bilaterally. No wheezes, and no crackles. No accessory muscle use. HEART: Regular rate and rhythm, normal S1 and S2 without murmur, rub or gallop. ABDOMEN: Soft, nontender, not distended, normoactive bowel sounds, no guarding, no rebound, no masses. No hepatomegaly or splenomegaly. MUSCULOSKELETAL: Normal range of motion at all joints. No bony deformities or tenderness. No CVA tenderness. UPPER EXTREMITIES: 2+ pulses, warm, well-perfused. No cyanosis. No clubbing. No peripheral edema. LOWER EXTREMITIES: 2+ pulses, warm, well-perfused. No calf tenderness. No peripheral edema. NEUROLOGICAL: Cranial nerves II-XII intact. Normal speech. Normal gait. PSYCHIATRIC: Cooperative. Good eye contact. Appropriate mood and affect. SKIN: Warm, dry, normal turgor, no rashes or lesions noted, normal capillary refill. Laboratory Results - last 24 hr 07/09/19 07/09/19 07/09/19 18:35 18:35 18:35 WBC 12.6 H RBC 3.98 Hgb 9.1 L Hct 29.0 L MCV 72.9 L MCH 22.8 L MCHC 31.3 L RDW 16.5 H Plt Count 613 H D MPV 8.4 Absolute Neuts (auto) 9.0 H Neutrophils % 70.9 Lymphocytes % 20.5 D Monocytes % 7.3 Eosinophils % 0.9 Basophils % 0.4 Nucleated RBC % 0 PT with INR 15.40 H INR 1.30 H PTT (Actin FS) 29.6 Sodium 139 Potassium 4.2 Chloride 105 Carbon Dioxide 26 Anion Gap 7 L BUN 25.9 H Creatinine 0.6 Est GFR (CKD-EPI)AfAm 99.07 Est GFR (CKD-EPI)NonAf 85.48 Random Glucose 147 H Calcium 8.3 L Total Bilirubin 0.2 AST 20 ALT 18 Alkaline Phosphatase 71 Total Protein 6.6 Albumin 2.4 L ASSESSMENT/PLAN: Visit type - Emergency Visit Emergency Visit: Yes ED Registration Date: 07/09/19 Care time: The patient presented to the Emergency Department on the above date and was hospitalized for further evaluation of their emergent condition. - New Patient This patient is new to me today: Yes Date on this admission: 07/10/19 - Critical Care Critical Care patient: No ATTENDING PHYSICIAN STATEMENT I saw and evaluated the patient. I reviewed the resident's note and discussed the case with the resident. I agree with the resident's findings and plan as documented. 79 years old F with PMH of Parksinson's Disease, dementia, and recent G-Tube placement, who presents today after her G-tube was dislodged in the morning. this is her second visit to the ED for similar complaint. Patient has a baseline dementia so unable to provide good history. She denies chest pain, Nausea,vomiting,fever labs noted for microcytic anemia, thrombocytosis, Mild neutrophilic leucocytosis Last Vital Signs Temp Pulse Resp BP Pulse Ox 97.4 F L 67 18 100/40 L 97 07/09/19 23:51 07/09/19 23:51 07/09/19 23:51 07/09/19 23:51 07/09/19 23:45 General : awake, Alert, NAD Head ; NC. AT Eyes : EOMI, CHAI, mild pallor sclera and conjunctiva Lungs ; b/l clear CVS ; s1s2+, RRR, NO mRG Neuro : A&o x1 ( self), No focal neurologic deficit Abd : Soft, mild distended, non tender, - Metalic holders at G tube site Dislodged G tube Failure to thrive Dehydration Sacral wound Parkinson's disease Admit to floor GI was consulted. Recommended IR guided G tube placement IR consult IN AM IV hydration resume home meds Check stool [place] DVT ppx
[2019-07-10] MEDS: DEXTROSE 5%-NORMAL SALINE 1,000 ML IV SCH ×2 (00:01→13:58)
[2019-07-10] MEDS ORDERED: CARBIDOPA/LEVODOPA 25/100 TABLET (FP) PO SCH (07:00)
[2019-07-10] MEDS: CARBIDOPA/LEVODOPA 25/100 TABLET (FP) PO SCH ×3 (07:26→18:10)
--- NOTE | 2019-07-10 08:22 | PN ---
Progress Note (short form) - Note Progress Note: SURGERY 79yo F h/o sacral decub s/p debridement, known to surgical service, recently readmitted to hospital for medical issues. Surgery was requested to reevaluate her sacral wound. Pt had wound vac being used for wound as outpatient. Pt some confusion and unable to give much history about wound. Last Vital Signs Temp Pulse Resp BP Pulse Ox 97.5 F L 68 20 119/70 97 07/10/19 06:00 07/10/19 06:00 07/10/19 06:00 07/10/19 06:00 07/09/19 23:45 CBC, BMP 07/09/19 18:35 07/09/19 18:35 PE: Gen: A&O x3 Resp: breathing comfortably Back: 14cm x 15cm large sacral decub, mostly granulation tissue, but 6cm x 6 cm area of fibrinous tissue. serous drainage. No erythema Problem List - Problems (1) Decubitus ulcer Assessment/Plan: Plan -would recommend santyl and wet to dry through the to try and chemically debride patch of fibrinous tissue, if well debrided will consider vac dressing on Saturday -dressing orders placed, will reevaluat on Saturday Pt discussed with Dr. Hansen who agrees with plan Code(s): L89.90 - PRESSURE ULCER OF UNSPECIFIED SITE, UNSPECIFIED STAGE Qualifiers: Pressure injury location: contiguous region involving back and buttock Pressure injury stage: stage 4 Laterality: unspecified laterality Qualified Code(s): L89.44 - Pressure ulcer of contiguous site of back, buttock and hip, stage 4
[2019-07-10 08:40] LABS: BASO % 0.6 % (0-2.0); EOS % 0.9 % (0-4.5); HEMATOCRIT 31.7 % (32.4-45.2); HEMOGLOBIN 9.9 GM/dL (10.7-15.3); LYMPH % 23.1 % (8-40); MCH 22.9 pg (25.7-33.7); MCHC 31.2 g/dl (32.0-36.0); MEAN CELL VOLUME 73.5 fl (80-96); MEAN PLT VOLUME 8.2 fl (7.5-11.1); MONO % 7.8 % (3.8-10.2); NEUT % 67.6 % (42.8-82.8); PLATELET COUNT 604 K/MM3 (134-434); RBC 4.32 M/mm3 (3.60-5.2); RDW 16.6 % (11.6-15.6)
[2019-07-10] MEDS ORDERED: PT OWN MED DRAWER 7, Y5N ONE ×2 (09:03→18:21)
[2019-07-10 09:07] LABS: ALBUMIN 2.4 g/dl (3.4-5.0); BILIRUBIN,TOTAL 0.3 mg/dL (0.2-1); BLOOD UREA NITROGEN 20.2 mg/dL (7-18); CALCIUM 8.2 mg/dL (8.5-10.1); CREATININE 0.6 mg/dL (0.55-1.3); POTASSIUM 4.3 mmol/L (3.5-5.1); TOT PROT 6.8 g/dl (6.4-8.2)
[2019-07-10] MEDS: COLLAGENASE CLOSTRIDIUM HIST. 30 GRAMS TUBE TP SCH (09:33)
[2019-07-10] MEDS: RIVASTIGMINE 4.6 MG/24 HOURS TRANSDERMAL PATCH TD SCH (09:33)
--- NOTE | 2019-07-10 09:48 | PN ---
Physical Exam: SUBJECTIVE: Patient seen and examined at bedside. pt has no acute complaints. pt is altered on exam. OBJECTIVE: Vital Signs Period Temp Pulse Resp BP Sys/Campbell Pulse Ox Last 24 Hr 97.4 F-98.7 F 67-94 16-20 100-119/40-71 97-100 GENERAL: The patient is awake, oriented to self, in no acute distress. NGT in place HEAD: Normal with no signs of trauma. ENT:, moist mucous membranes. NECK: Trachea midline, full range of motion, supple. LUNGS: breath sounds decreased at bases, L wheezes, no accessory muscle use. HEART: Regular rate and rhythm, S1, S2 ABDOMEN: Soft, nontender, nondistended, normoactive bowel sounds, no guarding, PEG site clean. EXTREMITIES: 2+ pulses, warm, well-perfused SKIN: Warm, dry, normal turgor, no rashes or lesions noted Laboratory Results - last 24 hr 07/09/19 07/09/19 07/09/19 18:35 18:35 18:35 WBC 12.6 H RBC 3.98 Hgb 9.1 L Hct 29.0 L MCV 72.9 L MCH 22.8 L MCHC 31.3 L RDW 16.5 H Plt Count 613 H D MPV 8.4 Absolute Neuts (auto) 9.0 H Neutrophils % 70.9 Lymphocytes % 20.5 D Monocytes % 7.3 Eosinophils % 0.9 Basophils % 0.4 Nucleated RBC % 0 PT with INR 15.40 H INR 1.30 H PTT (Actin FS) 29.6 Sodium 139 Potassium 4.2 Chloride 105 Carbon Dioxide 26 Anion Gap 7 L BUN 25.9 H Creatinine 0.6 Est GFR (CKD-EPI)AfAm 99.07 Est GFR (CKD-EPI)NonAf 85.48 Random Glucose 147 H Calcium 8.3 L Total Bilirubin 0.2 AST 20 ALT 18 Alkaline Phosphatase 71 Total Protein 6.6 Albumin 2.4 L 07/10/19 07/10/19 06:00 07:43 WBC 12.0 H RBC 4.32 Hgb 9.9 L Hct 31.7 L MCV 73.5 L MCH 22.9 L MCHC 31.2 L RDW 16.6 H Plt Count 604 H MPV 8.2 Absolute Neuts (auto) 8.1 H Neutrophils % 67.6 Lymphocytes % 23.1 Monocytes % 7.8 Eosinophils % 0.9 Basophils % 0.6 Nucleated RBC % 0 PT with INR INR PTT (Actin FS) Sodium 138 Potassium 4.3 Chloride 107 Carbon Dioxide 23 Anion Gap 8 BUN 20.2 H Creatinine 0.6 Est GFR (CKD-EPI)AfAm 99.07 Est GFR (CKD-EPI)NonAf 85.48 Random Glucose 125 H Calcium 8.2 L Total Bilirubin 0.3 AST 24 ALT 26 Alkaline Phosphatase 72 Total Protein 6.8 Albumin 2.4 L Current Medications Carbidopa/Levodopa (Sinemet 25/100 -) 2 each PO TID@0700,1200,1900 [facility] Last Admin: 07/10/19 12:28 Dose: 2 each Collagenase (Santyl -) 1 applic TP DAILY [facility]AS[facility]; Protocol Last Admin: 07/10/19 09:33 Dose: 1 applic Heparin Sodium (Porcine) (Heparin -) 5,000 unit SQ TID [facility] Dextrose/Sodium Chloride (D5-Ns -) 1,000 mls @ 83 mls/hr IV ASDIR [facility] Last Admin: 07/10/19 13:58 Dose: 83 mls/hr Non-Formulary Medication (Rotigotine [Neupro]) 1 each TD DAILY [facility] Rivastigmine (Exelon Patch 4.6mg/24 Hours -) 1 each TD DAILY [facility] Last Admin: 07/10/19 09:33 Dose: 1 each Tramadol HCl (Ultram -) 50 mg PO Q8H PRN PRN Reason: PAIN LEVEL 7 - 10 Last Admin: 07/10/19 12:28 Dose: 50 mg ASSESSMENT/PLAN: 79 F with PMH of Parksinson's Disease, dementia, and recent admission for sepsis with discharge (07/04/2019), and recent G-Tube placement presents with G- Tube dislodgement. PEG tube placement - Unable to replace in ED, contacted IR - NG tube now for oral meds - PEG to be placed with internal bolster as opposed to balloon wed 07/14. Daughter in agreement. - NG tube feeds -aspiration precautions. Failure to thrive -Patient receives all nutrition through G-Tube -Bedbound, weakness in all extremities -Dietary consult Thrombocytosis , Leukocytosis possibly -Thrombocytosis of 613, now 604 -WBC of 12.6, was discharged with elevated WBC after finishing abx. -Trend CBC Parkinson's Disease -Continuing Sinamet NGT, Rivastigime and Ritogitine patches Decubitus ulcer -c/w surgery recs (Dr. Hansen) - santyl and wet to dry through the weekend to try and chemically debride patch of fibrinous tissue, if well debrided will consider vac dressing on Saturday DVT ppx: Heparin Visit type - Emergency Visit Emergency Visit: No - New Patient This patient is new to me today: Yes Date on this admission: 07/10/19 - Critical Care Critical Care patient: No - Discharge Referral Referred to [facility] Med P.C[facility] Yes Physician Referral: Jose Enrique Orosco DO (GI) ATTENDING PHYSICIAN STATEMENT I saw and evaluated the patient. I reviewed the resident's note and discussed the case with the resident. I agree with the resident's findings and plan as documented. SUBJECTIVE: OBJECTIVE: ASSESSMENT AND PLAN:
--- NOTE | 2019-07-10 11:39 | PN ---
Progress Note (short form) - Note Progress Note: G-Tube placed by IR keeps coming out. They place balloon gastrostomy G-Tubes. Explained to daughter that PEG can be placed with internal bolster as opposed to balloon wed 07/14. Daughter in agreement. For now. NG tube feeds, aspiration precautions.
[2019-07-10] MEDS: traMADol HCL 50 MG TABLET PO PRN (12:28)
--- NOTE | 2019-07-10 15:13 | EKG ---
Test Reason : Blood Pressure : / mmHG Vent. Rate : 080 BPM Atrial Rate : 080 BPM P-R Int : 146 ms QRS Dur : 142 ms QT Int : 426 ms P-R-T Axes : 057 -38 -11 degrees QTc Int : 491 ms NORMAL SINUS RHYTHM POSSIBLE LEFT ATRIAL ENLARGEMENT LEFT AXIS DEVIATION RIGHT BUNDLE BRANCH BLOCK LEFT VENTRICULAR HYPERTROPHY ABNORMAL ECG Confirmed by ESTIVEN ANTHONY MD ([id number]) on 07/10/2019 3:13:19 PM Referred By: Confirmed By:ESTIVEN ANTHONY MD
--- NOTE | 2019-07-10 17:42 | PN ---
Teaching Attending Note Name of Resident: Joanne Wilks ATTENDING PHYSICIAN STATEMENT I saw and evaluated the patient. I reviewed the resident's note and discussed the case with the resident. I agree with the resident's findings and plan as documented. SUBJECTIVE: Patient is lying in bed, alert awake OBJECTIVE: Vital Signs Temperature 97.8 F 07/10/19 16:30 Pulse Rate 88 07/10/19 16:30 Respiratory Rate 18 07/10/19 16:30 Blood Pressure 117/79 07/10/19 16:30 O2 Sat by Pulse Oximetry (%) 97 07/10/19 09:00 GENERAL: The patient is awake, alert, and fully oriented, in no acute distress. HEAD: Normal with no signs of trauma. EYES: PERRL, extraocular movements intact, sclera anicteric, conjunctiva clear. ENT: Ears normal, oropharynx clear without exudates, moist mucous membranes, + NG-tube . NECK: Trachea midline, full range of motion, supple. LUNGS: Breath sounds equal, clear to auscultation bilaterally, no wheezes, no crackles, no accessory muscle use. HEART: Regular rate and rhythm, S1, S2 without murmur, rub or gallop. ABDOMEN: Soft, nontender, nondistended, normoactive bowel sounds, no guarding, no rebound, no hepatosplenomegaly, no masses. EXTREMITIES: 2+ pulses, warm, well-perfused, no edema. NEUROLOGICAL: Cranial nerves II through XII grossly intact. Normal speech, gait not observed. PSYCH: Normal mood, normal affect. SKIN: Warm, dry, normal turgor, no rashes or lesions noted Current Medications Generic Name Dose Route Start Last Admin Trade Name Freq PRN Reason Stop Dose Admin Carbidopa/Levodopa 2 each 07/09/19 23:37 07/10/19 12:28 Sinemet 25/100 - PO 2 each TID@0700,1200,1900 [facility] Administration Collagenase 1 applic 07/10/19 10:00 07/10/19 09:33 Santyl - TP 1 applic DAILY [facility] Administration Protocol Heparin Sodium (Porcine) 5,000 unit 07/10/19 15:30 Heparin - SQ TID [facility] Non-Formulary Medication 1 each 07/10/19 10:00 Rotigotine [Neupro] TD DAILY [facility] Rivastigmine 1 each 07/10/19 10:00 07/10/19 09:33 Exelon Patch 4.6mg/24 Hours - TD 1 each DAILY [facility] Administration Tramadol HCl 50 mg 07/10/19 11:40 07/10/19 12:28 Ultram - PO 50 mg Q8H PRN Administration PAIN LEVEL 7 - 10 Home Medications Medication Instructions Recorded Ca/D3/Mag Ox/Zinc/Township Clerk/Ketan/Bor 1 each PO HS 04/13/18 [Calcium 600-D3 Plus Caplet] Aspirin 81 mg PO DAILY 06/01/19 Melatonin 5 mg PO HS 06/01/19 Olanzapine [Zyprexa -] 7.5 mg PO DAILY 06/01/19 Omeprazole 20 mg PO DAILY 06/01/19 Rivastigmine [Exelon Patch 1 each TD DAILY 06/01/19 4.6MG/24 Hours -] Rotigotine [Neupro] 1 each TD DAILY 06/01/19 Bacitracin - [Bacitracin Topical 1 applic TP TUTHSA #1 tube 07/01/19 Ointment -] Carbidopa/Levodopa [Sinemet 2 each PO TID@0700,1200,1900 30 07/01/19 25 -] Days #180 tablet Foam Bandage [Optifoam] 1 each TP DAILY #12 bandage 07/03/19 Gauze Bandage [Kerlix] 1 each TP DAILY #20 bandage 07/03/19 Sodium Chloride 0.9% Irrig [Sodium 500 ml IR DAILY #5 btl 07/03/19 Chloride 0.9% Irrig. Soln 500 ml] Tramadol HCl 50 mg PO Q8H PRN #15 tablet MDD 3 07/04/19 tab ASSESSMENT AND PLAN: 79 F with PMH of Parksinson's Disease, dementia, and recent admission for sepsis with discharge (07/04/2019), and recent G-Tube placement presents with G- Tube dislodgement. # PEG tube placement ,waiting for GI/IR to place the tube back. On NGtube feed , continue #Failure to thrive: continue NG tube feed #Thrombocytosis 613--> 604 monitor # Leukocytosis of 12.6, was discharged with elevated WBC after finishing abx.most likely due to decubitus ulcer # Parkinson's Disease: continuing Sinemet through NGT, Rivastigime and Ritogitine patches # Decubitus ulcer : as per surgery recs (Dr. Hansen); santyl and wet to dry through the weekend to try and chemically debridement to patch of fibrinous tissue, if well debrided will re-consider vac dressing on Saturday DVT ppx: Heparin
[2019-07-10] MEDS: HEPARIN NA (PORCINE) 5,000 UNITS/ML 1ML VIAL SQ SCH ×2 (18:03→21:14)
[2019-07-10] MEDS: PATIENT'S OWN MEDICATION (NON-FORMULARY) (Rotigotine [Neupro] 1 EACH) TD SCH (18:03)
[2019-07-11] MEDS: HEPARIN NA (PORCINE) 5,000 UNITS/ML 1ML VIAL SQ SCH ×3 (05:42→22:13)
[2019-07-11] MEDS: CARBIDOPA/LEVODOPA 25/100 TABLET (FP) PO SCH ×3 (06:22→22:13)
--- NOTE | 2019-07-11 07:59 | PN.GI ---
GI Progress Note Subjective: NO EVENTS REPORTED - Objective Vital Signs: Vital Signs Temperature 98.2 F 07/11/19 04:00 Pulse Rate 68 07/11/19 04:00 Respiratory Rate 18 07/11/19 04:00 Blood Pressure 118/60 07/11/19 04:00 O2 Sat by Pulse Oximetry (%) 97 07/10/19 20:54 Constitutional: Well Nourished, No Distress, Calm, Other (NGT) HENT: Yes: WNL Cardiovascular: Yes: WNL, Regular Rate and Rhythm Respiratory: Yes: WNL, CTA Bilaterally Gastrointestinal Inspection: Yes: WNL ...Auscultate: Yes: Normoactive Bowel Sounds Extremities: Yes: WNL Labs: CBC, BMP 07/10/19 07:43 07/10/19 06:00 INR, PTT INR 1.30 (0.83-1.09) H 07/09/19 18:35 Problem List - Problems (1) Problem with gastrostomy tube Assessment/Plan: C/W NGT FEEDS WITH ASPIRATION PRECAUTION PLAN FOR PEG TUBE PLACEMENT ON SAT Code(s): K94.20 - GASTROSTOMY COMPLICATION, UNSPECIFIED (2) Acute hypoxemic respiratory failure Code(s): J96.01 - ACUTE RESPIRATORY FAILURE WITH HYPOXIA (3) Egdet-yh-smvlsob kidney injury Code(s): N17.9 - ACUTE KIDNEY FAILURE, UNSPECIFIED; N18.9 - CHRONIC KIDNEY DISEASE, UNSPECIFIED Qualifiers: Acute renal failure type: unspecified (4) Altered mental status Code(s): R41.82 - ALTERED MENTAL STATUS, UNSPECIFIED Qualifiers: Altered mental status type: disorientation Qualified Code(s): R41.0 - Disorientation, unspecified
[2019-07-11 09:05] LABS: BASO % 1.3 % (0-2.0); EOS % 0.7 % (0-4.5); HEMATOCRIT 28.2 % (32.4-45.2); HEMOGLOBIN 8.9 GM/dL (10.7-15.3); LYMPH % 21.7 % (8-40); MCHC 31.7 g/dl (32.0-36.0); MEAN CELL VOLUME 72.7 fl (80-96); MEAN PLT VOLUME 8.2 fl (7.5-11.1); MONO % 6.7 % (3.8-10.2); NEUT % 69.6 % (42.8-82.8); PLATELET COUNT 613 K/MM3 (134-434); RBC 3.87 M/mm3 (3.60-5.2); RDW 16.6 % (11.6-15.6); WHITE BLOOD COUNT 11.3 K/mm3 (4.0-10.0)
[2019-07-11 09:32] LABS: ALBUMIN 2.3 g/dl (3.4-5.0); BILIRUBIN,TOTAL 0.6 mg/dL (0.2-1); BLOOD UREA NITROGEN 15.4 mg/dL (7-18); CALCIUM 8.4 mg/dL (8.5-10.1); CREATININE 0.6 mg/dL (0.55-1.3); MAGNESIUM 1.9 mg/dL (1.8-2.4); PHOSPHOROUS 3.4 mg/dL (2.5-4.9); POTASSIUM 4.4 mmol/L (3.5-5.1); TOT PROT 6.4 g/dl (6.4-8.2)
[2019-07-11] MEDS ORDERED: ASPIRIN 81 MG CHEWABLE TABLETS NGT SCH (10:00)
[2019-07-11] MEDS ORDERED: PT OWN MED DRAWER 7, Y5N ONE (10:42)
[2019-07-11] MEDS: RIVASTIGMINE 4.6 MG/24 HOURS TRANSDERMAL PATCH TD SCH (10:47)
[2019-07-11] MEDS: PATIENT'S OWN MEDICATION (NON-FORMULARY) (Rotigotine [Neupro] 1 EACH) TD SCH (10:48)
[2019-07-11] MEDS: COLLAGENASE CLOSTRIDIUM HIST. 30 GRAMS TUBE TP SCH (10:49)
--- NOTE | 2019-07-11 20:09 | PN ---
Progress Note (short form) - Note Progress Note: Vital Signs Temperature 97.9 F 07/11/19 16:11 Pulse Rate 68 07/11/19 16:11 Respiratory Rate 20 07/11/19 16:11 Blood Pressure 126/82 07/11/19 16:11 O2 Sat by Pulse Oximetry (%) 97 07/11/19 09:00 GENERAL: The patient is awake, alert, and fully oriented, in no acute distress. HEAD: Normal with no signs of trauma. EYES: PERRL, extraocular movements intact, sclera anicteric, conjunctiva clear. ENT: Ears normal, oropharynx clear without exudates, moist mucous membranes. NECK: Trachea midline, full range of motion, supple. LUNGS: Breath sounds equal, clear to auscultation bilaterally, no wheezes, no crackles, no accessory muscle use. HEART: Regular rate and rhythm, S1, S2 without murmur, rub or gallop. ABDOMEN: Soft, nontender, nondistended, normoactive bowel sounds, no guarding, no rebound, no hepatosplenomegaly, no masses. EXTREMITIES: 2+ pulses, warm, well-perfused, no edema. NEUROLOGICAL: Cranial nerves II through XII grossly intact. Normal speech, gait not observed. PSYCH: Normal mood, normal affect. SKIN: Warm, dry, normal turgor, no rashes or lesions noted CBCD WBC 11.3 K/mm3 (4.0-10.0) H 07/11/19 07:55 RBC 3.87 M/mm3 (3.60-5.2) 07/11/19 07:55 Hgb 8.9 GM/dL (10.7-15.3) L 07/11/19 07:55 Hct 28.2 % (32.4-45.2) L 07/11/19 07:55 MCV 72.7 fl (80-96) L 07/11/19 07:55 MCHC 31.7 g/dl (32.0-36.0) L 07/11/19 07:55 RDW 16.6 % (11.6-15.6) H 07/11/19 07:55 Plt Count 613 K/MM3 (134-434) H 07/11/19 07:55 MPV 8.2 fl (7.5-11.1) 07/11/19 07:55 CMP Sodium 139 mmol/L (136-145) 07/11/19 07:55 Potassium 4.4 mmol/L (3.5-5.1) 07/11/19 07:55 Chloride 109 mmol/L (98-107) H 07/11/19 07:55 Carbon Dioxide 25 mmol/L (21-32) 07/11/19 07:55 Anion Gap 5 MMOL/L (8-16) L 07/11/19 07:55 BUN 15.4 mg/dL (7-18) 07/11/19 07:55 Creatinine 0.6 mg/dL (0.55-1.3) 07/11/19 07:55 Random Glucose 107 mg/dL (74-106) H 07/11/19 07:55 Calcium 8.4 mg/dL (8.5-10.1) L 07/11/19 07:55 Total Bilirubin 0.6 mg/dL (0.2-1) 07/11/19 07:55 AST 16 U/L (15-37) 07/11/19 07:55 ALT 7 U/L (13-61) L 07/11/19 07:55 Alkaline Phosphatase 73 U/L (45-117) 07/11/19 07:55 Total Protein 6.4 g/dl (6.4-8.2) 07/11/19 07:55 Albumin 2.3 g/dl (3.4-5.0) L 07/11/19 07:55 Home Medications Medication Instructions Recorded Ca/D3/Mag Ox/Zinc/Director Of Labor And Delivery/Ketan/Bor 1 each PO HS 04/13/18 [Calcium 600-D3 Plus Caplet] Aspirin 81 mg PO DAILY 06/01/19 Melatonin 5 mg PO HS 06/01/19 Olanzapine [Zyprexa -] 7.5 mg PO DAILY 06/01/19 Omeprazole 20 mg PO DAILY 06/01/19 Rivastigmine [Exelon Patch 1 each TD DAILY 06/01/19 4.6MG/24 Hours -] Rotigotine [Neupro] 1 each TD DAILY 06/01/19 Bacitracin - [Bacitracin Topical 1 applic TP TUTA #1 tube 07/01/19 Ointment -] Carbidopa/Levodopa 25/100 [Sinemet 2 each PO TID@0700,1200,1900 30 07/01/19 25/100 -] Days #180 tablet Foam Bandage [Optifoam] 1 each TP DAILY #12 bandage 07/03/19 Gauze Bandage [Kerlix] 1 each TP DAILY #20 bandage 07/03/19 Sodium Chloride 0.9% Irrig [Sodium 500 ml IR DAILY #5 btl 07/03/19 Chloride 0.9% Irrig. Soln 500 ml] Tramadol HCl 50 mg PO Q8H PRN #15 tablet MDD 3 07/04/19 tab Current Medications Generic Name Dose Route Start Last Admin Trade Name Freq PRN Reason Stop Dose Admin Carbidopa/Levodopa 2 each 07/09/19 23:37 07/11/19 13:16 Sinemet 25/100 - PO 2 each TID@0700,1200,1900 VASYL Administration Collagenase 1 applic 07/10/19 10:00 07/11/19 10:49 Santyl - TP 1 applic DAILY VASYL Administration Protocol Heparin Sodium (Porcine) 5,000 unit 07/10/19 15:30 07/11/19 13:17 Heparin - SQ 5,000 unit TID VASYL Administration Non-Formulary Medication 1 each 07/10/19 10:00 07/11/19 10:48 Rotigotine [Neupro] TD 1 each DAILY VASYL Administration Rivastigmine 1 each 07/10/19 10:00 07/11/19 10:47 Exelon Patch 4.6mg/24 Hours - TD 1 each DAILY VASYL Administration Tramadol HCl 50 mg 07/10/19 11:40 07/10/19 12:28 Ultram - PO 50 mg Q8H PRN Administration PAIN LEVEL 7 - 10 ASSESSMENT AND PLAN: 79 F with PMH of Parksinson's Disease, dementia, and recent admission for sepsis with discharge (07/04/2019), and recent G-Tube placement presents with G- Tube dislodgement. # PEG tube placement; GI/IR on the case # Failure to thrive: all nutrition through G-Tube, patient has a NG-tube # Bedbound, weakness in all extremities # Thrombocytosis , Leukocytosis continue to monitor possible due to decubitus ulcer # Parkinson's Disease: continue Sinamet NGT, Rivastigime and Ritogitine patches #Decubitus ulcer : surgical evaluation (Dr. Hansen); as per surgery to continue santyl and wet to dry for now, will be evaluated on Saturday , if needed chemical debridment patch of fibrinous tissue, if well debrided as per surgery will consider vac dressing on Saturday DVT ppx: Heparin Visit type - Emergency Visit Emergency Visit: Yes ED Registration Date: 07/09/19 Care time: The patient presented to the Emergency Department on the above date and was hospitalized for further evaluation of their emergent condition. - New Patient This patient is new to me today: No - Critical Care Critical Care patient: No - Discharge Referral Referred to [facility] No
[2019-07-12] MEDS: CARBIDOPA/LEVODOPA 25/100 TABLET (FP) PO SCH ×3 (06:18→20:27)
[2019-07-12] MEDS: HEPARIN NA (PORCINE) 5,000 UNITS/ML 1ML VIAL SQ SCH ×3 (06:18→21:20)
--- NOTE | 2019-07-12 07:57 | PN.GI ---
GI Progress Note Subjective: no new complaints status unchanged - Objective Vital Signs: Vital Signs Temperature 98.6 F 07/12/19 06:00 Pulse Rate 78 07/12/19 06:00 Respiratory Rate 18 07/12/19 06:00 Blood Pressure 116/76 07/12/19 06:00 O2 Sat by Pulse Oximetry (%) 98 07/11/19 21:00 Constitutional: Well Nourished, Calm Eyes: Yes: WNL HENT: Yes: WNL Neck: Yes: WNL Cardiovascular: Yes: WNL Respiratory: Yes: WNL Gastrointestinal Inspection: Yes: WNL Extremities: Yes: WNL Edema: No Labs: CBC, BMP 07/11/19 07:55 07/11/19 07:55 INR, PTT INR 1.30 (0.83-1.09) H 07/09/19 18:35 Assessment/Plan - c/w ngt feeds - aspiration precaution - plan for peg tube replacement on SAT Problem List - Problems (1) Problem with gastrostomy tube Code(s): K94.20 - GASTROSTOMY COMPLICATION, UNSPECIFIED (2) Acute hypoxemic respiratory failure Code(s): J96.01 - ACUTE RESPIRATORY FAILURE WITH HYPOXIA (3) Xmiuj-fu-memqaxi kidney injury Code(s): N17.9 - ACUTE KIDNEY FAILURE, UNSPECIFIED; N18.9 - CHRONIC KIDNEY DISEASE, UNSPECIFIED Qualifiers: Acute renal failure type: unspecified (4) Altered mental status Code(s): R41.82 - ALTERED MENTAL STATUS, UNSPECIFIED Qualifiers: Altered mental status type: disorientation Qualified Code(s): R41.0 - Disorientation, unspecified
--- NOTE | 2019-07-12 08:30 | PN ---
Physical Exam: SUBJECTIVE: Patient seen and examined at the bedside. No overnight events noted. No ROS due to clinical condition. OBJECTIVE: Vital Signs Period Temp Pulse Resp BP Sys/Campbell Pulse Ox Last 24 Hr 97.9 F-98.9 F 68-93 18-20 97-136/58-82 97-98 GENERAL: The patient is awake, alert, and not oriented. Thin appearing. EYES: PERRL, extraocular movements intact. ENT: Oropharynx clear without exudates, dry mucous membranes. NECK: Trachea midline, supple. LUNGS: Coarse breath sounds heard throughout. HEART: Regular rate and rhythm, S1, S2 without murmur. ABDOMEN: Soft, nontender, nondistended, normoactive bowel sounds, no guarding, no rebound, no masses. Old G tube site without erythema. EXTREMITIES: 1+ pulses, warm, well-perfused, no edema. NEUROLOGICAL: Moving extremities spontaneously. Laboratory Results - last 24 hr 07/11/19 07/11/19 07/12/19 07:55 07:55 06:16 WBC 11.3 H RBC 3.87 Hgb 8.9 L Hct 28.2 L MCV 72.7 L MCH 23.0 L MCHC 31.7 L RDW 16.6 H Plt Count 613 H MPV 8.2 Absolute Neuts (auto) 7.8 Neutrophils % 69.6 Lymphocytes % 21.7 Monocytes % 6.7 Eosinophils % 0.7 Basophils % 1.3 Nucleated RBC % 0 Sodium 139 Potassium 4.4 Chloride 109 H Carbon Dioxide 25 Anion Gap 5 L BUN 15.4 Creatinine 0.6 Est GFR (CKD-EPI)AfAm 99.07 Est GFR (CKD-EPI)NonAf 85.48 POC Glucometer 122 Random Glucose 107 H Calcium 8.4 L Phosphorus 3.4 Magnesium 1.9 Total Bilirubin 0.6 AST 16 ALT 7 L Alkaline Phosphatase 73 Total Protein 6.4 Albumin 2.3 L Active Medications Generic Name Dose Route Start Last Admin Trade Name Freq PRN Reason Stop Dose Admin Carbidopa/Levodopa 2 each 07/09/19 23:37 07/12/19 06:18 Sinemet 25/100 - PO 2 each TID@0700,1200,1900 VASYL Administration Collagenase 1 applic 07/10/19 10:00 07/11/19 10:49 Santyl - TP 1 applic DAILY VASYL Administration Protocol Heparin Sodium (Porcine) 5,000 unit 07/10/19 15:30 07/12/19 06:18 Heparin - SQ 5,000 unit TID VASYL Administration Non-Formulary Medication 1 each 07/10/19 10:00 07/11/19 10:48 Rotigotine [Neupro] TD 1 each DAILY VASYL Administration Rivastigmine 1 each 07/10/19 10:00 07/11/19 10:47 Exelon Patch 4.6mg/24 Hours - TD 1 each DAILY VASYL Administration Tramadol HCl 50 mg 07/10/19 11:40 07/10/19 12:28 Ultram - PO 50 mg Q8H PRN Administration PAIN LEVEL 7 - 10 ASSESSMENT/PLAN: Freida Prescott is an 79 year old female with a past medical history of Parksinson' s Disease, dementia, and recent admission for sepsis with discharge (07/04/2019), and recent G-Tube placement admitted for G-Tube dislodgement. PEG tube placement - Unable to replace in ED, contacted IR - NG tube now for oral meds and feeds - PEG to be placed with internal bolster on 07/14 with daughter in agreement. - aspiration precautions. Failure to thrive - Patient receives all nutrition through G-Tube, currently with NGT - Bedbound, weakness in all extremities - Dietary consult Thrombocytosis , Leukocytosis possibly - Thrombocytosis of 613 - WBC of 12.6, was discharged with elevated WBC after finishing abx, trending down now - Trend CBC Parkinson's Disease - Continuing Sinamet NGT, Rivastigime and Ritogitine patches Decubitus ulcer - c/w surgery recs (Dr. Hansen) - santyl and wet to dry through the weekend to try and chemically debride patch of fibrinous tissue, if well debrided will consider vac dressing on Saturday DVT ppx - Heparin 5000 units subq tid FEN - no standing fluids - continue to monitor electrolytes and replete as necessary - NGT feeds Dispo - continue to monitor on med-surg Visit type - Emergency Visit Emergency Visit: Yes ED Registration Date: 07/09/19 Care time: The patient presented to the Emergency Department on the above date and was hospitalized for further evaluation of their emergent condition. - New Patient This patient is new to me today: Yes Date on this admission: 07/12/19 - Critical Care Critical Care patient: No
[2019-07-12 08:54] LABS: BASO % 1.2 % (0-2.0); EOS % 0.4 % (0-4.5); HEMATOCRIT 28.9 % (32.4-45.2); HEMOGLOBIN 9.2 GM/dL (10.7-15.3); LYMPH % 20.1 % (8-40); MEAN PLT VOLUME 8.4 fl (7.5-11.1); MONO % 8.2 % (3.8-10.2); NEUT % 70.1 % (42.8-82.8); PLATELET COUNT 600 K/MM3 (134-434); RBC 4.02 M/mm3 (3.60-5.2); RDW 16.5 % (11.6-15.6); WHITE BLOOD COUNT 12.9 K/mm3 (4.0-10.0)
[2019-07-12 09:30] LABS: ALBUMIN 2.3 g/dl (3.4-5.0); BILIRUBIN,TOTAL 0.2 mg/dL (0.2-1); BLOOD UREA NITROGEN 16.4 mg/dL (7-18); CREATININE 0.6 mg/dL (0.55-1.3); MAGNESIUM 2.1 mg/dL (1.8-2.4); PHOSPHOROUS 2.8 mg/dL (2.5-4.9); POTASSIUM 4.3 mmol/L (3.5-5.1); TOT PROT 6.3 g/dl (6.4-8.2)
[2019-07-12] MEDS: PATIENT'S OWN MEDICATION (NON-FORMULARY) (Rotigotine [Neupro] 1 EACH) TD SCH (09:35)
[2019-07-12] MEDS: COLLAGENASE CLOSTRIDIUM HIST. 30 GRAMS TUBE TP SCH (09:35)
[2019-07-12] MEDS: RIVASTIGMINE 4.6 MG/24 HOURS TRANSDERMAL PATCH TD SCH (09:35)
--- NOTE | 2019-07-12 10:03 | PN ---
Teaching Attending Note Name of Resident: Jesus Gould ATTENDING PHYSICIAN STATEMENT I saw and evaluated the patient. I reviewed the resident's note and discussed the case with the resident. I agree with the resident's findings and plan as documented. SUBJECTIVE: Patient is awake, responds to questions. bedridden Vital Signs Temperature 98.6 F 07/12/19 06:00 Pulse Rate 78 07/12/19 06:00 Respiratory Rate 18 07/12/19 06:00 Blood Pressure 116/76 07/12/19 06:00 O2 Sat by Pulse Oximetry (%) 98 07/11/19 21:00 GENERAL: The patient is awake, alert, and oriented, in no acute distress. HEAD: Normal with no signs of trauma. EYES: PERRL, extraocular movements intact, sclera anicteric, conjunctiva clear. ENT: Ears normal, oropharynx clear without exudates, moist mucous membranes.+Ng -tube NECK: Trachea midline, full range of motion, supple. LUNGS: Breath sounds equal, clear to auscultation bilaterally, no wheezes, no crackles, no accessory muscle use. HEART: Regular rate and rhythm, S1, S2 without murmur, rub or gallop. ABDOMEN: Soft, nontender, nondistended, normoactive bowel sounds, no guarding, no rebound, no hepatosplenomegaly, no masses. EXTREMITIES: 2+ pulses, warm, well-perfused, no edema. NEUROLOGICAL: Cranial nerves II through XII grossly intact. Normal speech, bedridden PSYCH: Normal mood, normal affect. SKIN: Warm, dry, normal turgor, no rashes or lesions noted decubitus Ulcer: 14cm x 15cm large sacral decub, with granulation tissue, but 6cm x 6 cm area of fibrinous tissue. serous drainage. No erythema CBCD WBC 12.9 K/mm3 (4.0-10.0) H 07/12/19 07:55 RBC 4.02 M/mm3 (3.60-5.2) 07/12/19 07:55 Hgb 9.2 GM/dL (10.7-15.3) L 07/12/19 07:55 Hct 28.9 % (32.4-45.2) L 07/12/19 07:55 MCV 72.0 fl (80-96) L 07/12/19 07:55 MCHC 32.0 g/dl (32.0-36.0) 07/12/19 07:55 RDW 16.5 % (11.6-15.6) H 07/12/19 07:55 Plt Count 600 K/MM3 (134-434) H 07/12/19 07:55 MPV 8.4 fl (7.5-11.1) 07/12/19 07:55 CMP Sodium 137 mmol/L (136-145) 07/12/19 07:55 Potassium 4.3 mmol/L (3.5-5.1) 07/12/19 07:55 Chloride 104 mmol/L (98-107) 07/12/19 07:55 Carbon Dioxide 26 mmol/L (21-32) 07/12/19 07:55 Anion Gap 6 MMOL/L (8-16) L 07/12/19 07:55 BUN 16.4 mg/dL (7-18) 07/12/19 07:55 Creatinine 0.6 mg/dL (0.55-1.3) 07/12/19 07:55 Random Glucose 113 mg/dL (74-106) H 07/12/19 07:55 Calcium 8.0 mg/dL (8.5-10.1) L 07/12/19 07:55 Total Bilirubin 0.2 mg/dL (0.2-1) 07/12/19 07:55 AST 13 U/L (15-37) L 07/12/19 07:55 ALT 8 U/L (13-61) L 07/12/19 07:55 Alkaline Phosphatase 71 U/L (45-117) 07/12/19 07:55 Total Protein 6.3 g/dl (6.4-8.2) L 07/12/19 07:55 Albumin 2.3 g/dl (3.4-5.0) L 07/12/19 07:55 Current Medications Generic Name Dose Route Start Last Admin Trade Name Freq PRN Reason Stop Dose Admin Carbidopa/Levodopa 2 each 07/09/19 23:37 07/12/19 06:18 Sinemet 25/100 - PO 2 each TID@0700,1200,1900 VASYL Administration Collagenase 1 applic 07/10/19 10:00 07/12/19 09:35 Santyl - TP 1 applic DAILY VASYL Administration Protocol Heparin Sodium (Porcine) 5,000 unit 07/10/19 15:30 07/12/19 06:18 Heparin - SQ 5,000 unit TID VASYL Administration Non-Formulary Medication 1 each 07/10/19 10:00 07/12/19 09:35 Rotigotine [Neupro] TD 1 each DAILY VASYL Administration Rivastigmine 1 each 07/10/19 10:00 07/12/19 09:35 Exelon Patch 4.6mg/24 Hours - TD 1 each DAILY VASYL Administration Tramadol HCl 50 mg 07/10/19 11:40 07/10/19 12:28 Ultram - PO 50 mg Q8H PRN Administration PAIN LEVEL 7 - 10 Home Medications Medication Instructions Recorded Ca/D3/Mag Ox/Zinc/Elevator Constructor Supervisor/Ketan/Bor 1 each PO HS 04/13/18 [Calcium 600-D3 Plus Caplet] Aspirin 81 mg PO DAILY 06/01/19 Melatonin 5 mg PO HS 06/01/19 Olanzapine [Zyprexa -] 7.5 mg PO DAILY 06/01/19 Omeprazole 20 mg PO DAILY 06/01/19 Rivastigmine [Exelon Patch 1 each TD DAILY 06/01/19 4.6MG/24 Hours -] Rotigotine [Neupro] 1 each TD DAILY 06/01/19 Bacitracin - [Bacitracin Topical 1 applic TP TUTHSA #1 tube 07/01/19 Ointment -] Carbidopa/Levodopa 25/100 [Sinemet 2 each PO TID@0700,1200,1900 30 07/01/19 25/100 -] Days #180 tablet Foam Bandage [Optifoam] 1 each TP DAILY #12 bandage 07/03/19 Gauze Bandage [Kerlix] 1 each TP DAILY #20 bandage 07/03/19 Sodium Chloride 0.9% Irrig [Sodium 500 ml IR DAILY #5 btl 07/03/19 Chloride 0.9% Irrig. Soln 500 ml] Tramadol HCl 50 mg PO Q8H PRN #15 tablet MDD 3 07/04/19 tab ASSESSMENT AND PLAN: Patient is an 79yof with Pmhx of Parksinson's Disease, dementia, and recent admission for sepsis with discharged (07/04/2019), and recent G-Tube placement presents with G-Tube dislodgement. # PEG tube placement; IR /GI replacing the Peg tube, Gi explained the daughter that glory't be placed with internal bolster as opposed to balloon on 07/14. Daughter in agreement. For now. NG tube feeds, aspiration precautions. # Failure to thrive: all nutrition through Ng Tube for now # Bed-bound, weakness in all extremities # Thrombocytosis , Leukocytosis 606--600 today continue to monitor possible due to decubitus ulcer # Parkinson's Disease: continue Sinamet NGT, Rivastigime and Ritogitine patches #Decubitus ulcer : surgical evaluation (Dr. Hansen); as per surgery to continue santyl and wet to dry for now, will be evaluated on Saturday , if needed chemical debridment patch of fibrinous tissue, if well debrided as per surgery will consider vac dressing on Saturday DVT ppx: Heparin
[2019-07-12] MEDS ORDERED: PT OWN MED DRAWER 7, Y5N ONE (19:29)
[2019-07-12] MEDS: traMADol HCL 50 MG TABLET PO PRN (21:19)
[2019-07-13] MEDS: HEPARIN NA (PORCINE) 5,000 UNITS/ML 1ML VIAL SQ SCH ×3 (05:48→21:13)
[2019-07-13] MEDS: CARBIDOPA/LEVODOPA 25/100 TABLET (FP) PO SCH ×3 (06:06→18:20)
--- NOTE | 2019-07-13 06:59 | PN.GI ---
GI Progress Note Subjective: status unchanged - Objective Vital Signs: Vital Signs Temperature 98.4 F 07/12/19 18:00 Pulse Rate 87 07/12/19 18:00 Respiratory Rate 19 07/12/19 18:00 Blood Pressure 100/68 07/12/19 18:00 O2 Sat by Pulse Oximetry (%) 98 07/12/19 21:00 Constitutional: Well Nourished, No Distress, Calm Eyes: Yes: WNL HENT: Yes: WNL Neck: Yes: WNL Cardiovascular: Yes: WNL, Regular Rate and Rhythm Respiratory: Yes: WNL, Regular, CTA Bilaterally Gastrointestinal Inspection: Yes: WNL ...Auscultate: Yes: Normoactive Bowel Sounds Edema: No Labs: CBC, BMP 07/12/19 07:55 07/12/19 07:55 INR, PTT INR 1.30 (0.83-1.09) H 07/09/19 18:35 Problem List - Problems (1) Problem with gastrostomy tube Assessment/Plan: C/W NGT FEEDS WITH ASPIRATION PRECAUTION PLAN FOR PEG TUBE PLACEMENT ON SAT Code(s): K94.20 - GASTROSTOMY COMPLICATION, UNSPECIFIED (2) Acute hypoxemic respiratory failure Code(s): J96.01 - ACUTE RESPIRATORY FAILURE WITH HYPOXIA (3) Sbslg-cd-nwtjjsi kidney injury Code(s): N17.9 - ACUTE KIDNEY FAILURE, UNSPECIFIED; N18.9 - CHRONIC KIDNEY DISEASE, UNSPECIFIED Qualifiers: Acute renal failure type: unspecified (4) Altered mental status Code(s): R41.82 - ALTERED MENTAL STATUS, UNSPECIFIED Qualifiers: Altered mental status type: disorientation Qualified Code(s): R41.0 - Disorientation, unspecified
[2019-07-13 07:24] LABS: BASO % 1.5 % (0-2.0); EOS % 0.5 % (0-4.5); HEMATOCRIT 31.4 % (32.4-45.2); HEMOGLOBIN 9.9 GM/dL (10.7-15.3); LYMPH % 22.2 % (8-40); MCHC 31.5 g/dl (32.0-36.0); MEAN CELL VOLUME 73.1 fl (80-96); MEAN PLT VOLUME 8.6 fl (7.5-11.1); MONO % 6.5 % (3.8-10.2); NEUT % 69.3 % (42.8-82.8); PLATELET COUNT 614 K/MM3 (134-434); RBC 4.29 M/mm3 (3.60-5.2); RDW 16.6 % (11.6-15.6); WHITE BLOOD COUNT 14.3 K/mm3 (4.0-10.0)
[2019-07-13 07:50] LABS: ALBUMIN 2.4 g/dl (3.4-5.0); BLOOD UREA NITROGEN 19.7 mg/dL (7-18); CALCIUM 8.6 mg/dL (8.5-10.1); CREATININE 0.6 mg/dL (0.55-1.3); MAGNESIUM 2.2 mg/dL (1.8-2.4); POTASSIUM 4.5 mmol/L (3.5-5.1)
--- NOTE | 2019-07-13 07:51 | PN ---
Progress Note (short form) - Note Progress Note: SURGERY 79yo F h/o decubitus ulcer. Pt has been getting wet to dry dressings with santyl since Saturday without incident. Pt demented unable to give any history. Last Vital Signs Temp Pulse Resp BP Pulse Ox 98.4 F 87 19 100/68 98 07/12/19 18:00 07/12/19 18:00 07/12/19 18:00 07/12/19 18:00 07/12/19 21:00 CBC, BMP 07/13/19 06:25 PE; Gen: Awake and disoriented Resp: breathing comfortably Back: large decubitus ulcer 14cm x 16cm mostly granulation tissue with patch in RUQ with fibrinous tissue, improved from previous exam. Problem List - Problems (1) Decubitus ulcer Assessment/Plan: Plan -would continue wet to dry dressing with santyl for now, will recheck on Saturday, to see if wound ready for a VAC dressing. -continue daily dressing changes. Code(s): L89.90 - PRESSURE ULCER OF UNSPECIFIED SITE, UNSPECIFIED STAGE Qualifiers: Pressure injury location: contiguous region involving back and buttock Pressure injury stage: stage 4 Laterality: unspecified laterality Qualified Code(s): L89.44 - Pressure ulcer of contiguous site of back, buttock and hip, stage 4
[2019-07-13] MEDS: RIVASTIGMINE 4.6 MG/24 HOURS TRANSDERMAL PATCH TD SCH (10:25)
[2019-07-13] MEDS: PATIENT'S OWN MEDICATION (NON-FORMULARY) (Rotigotine [Neupro] 1 EACH) TD SCH (10:26)
[2019-07-13] MEDS: COLLAGENASE CLOSTRIDIUM HIST. 30 GRAMS TUBE TP SCH (11:22)
--- NOTE | 2019-07-13 11:38 | PN ---
Physical Exam: SUBJECTIVE: Patient seen and examined. She appears comfortable. OBJECTIVE: Vital Signs Period Temp Pulse Resp BP Sys/Campbell Pulse Ox Last 24 Hr 98.4 F-99.2 F 87-87 18-19 100-119/68-71 98 GENERAL: The patient is awake, alert, and confused, in no acute distress. LUNGS: Breath sounds equal, clear to auscultation bilaterally, no wheezes, no crackles, no accessory muscle use. HEART: Regular rate and rhythm, S1, S2 without murmur, rub or gallop. ABDOMEN: Soft, nontender, nondistended, normoactive bowel sounds, no guarding, no rebound, no hepatosplenomegaly, no masses. EXTREMITIES: 2+ pulses, warm, well-perfused, no edema. Laboratory Results - last 24 hr 07/12/19 07/13/19 07/13/19 12:59 06:25 06:25 WBC 14.3 H RBC 4.29 Hgb 9.9 L Hct 31.4 L MCV 73.1 L MCH 23.0 L MCHC 31.5 L RDW 16.6 H Plt Count 614 H MPV 8.6 Absolute Neuts (auto) 9.9 H Neutrophils % 69.3 Lymphocytes % 22.2 Monocytes % 6.5 Eosinophils % 0.5 Basophils % 1.5 Nucleated RBC % 0 Sodium 136 Potassium 4.5 Chloride 102 Carbon Dioxide 28 Anion Gap 6 L BUN 19.7 H Creatinine 0.6 Est GFR (CKD-EPI)AfAm 99.07 Est GFR (CKD-EPI)NonAf 85.48 POC Glucometer 120 Random Glucose 101 Calcium 8.6 Magnesium 2.2 Albumin 2.4 L Active Medications Generic Name Dose Route Start Last Admin Trade Name Freq PRN Reason Stop Dose Admin Carbidopa/Levodopa 2 each 07/09/19 23:37 07/13/19 11:25 Sinemet 25/100 - PO 2 each TID@0700,1200,1900 VASYL Administration Collagenase 1 applic 07/10/19 10:00 07/13/19 11:22 Santyl - TP 1 applic DAILY VASYL Administration Protocol Heparin Sodium (Porcine) 5,000 unit 07/10/19 15:30 07/13/19 05:48 Heparin - SQ 5,000 unit TID VASYL Administration Non-Formulary Medication 1 each 07/10/19 10:00 07/13/19 10:26 Rotigotine [Neupro] TD 1 each DAILY VASYL Administration Rivastigmine 1 each 07/10/19 10:00 07/13/19 10:25 Exelon Patch 4.6mg/24 Hours - TD 1 each DAILY VASYL Administration Tramadol HCl 50 mg 07/10/19 11:40 07/12/19 21:19 Ultram - PO 50 mg Q8H PRN Administration PAIN LEVEL 7 - 10 ASSESSMENT/PLAN: This is an 79 year old woman with a history of Parksinson Disease, dementia, G- tube who presented to the ED after her G-tube became dislodged. 1. G-tube dislodgement - Plan for PEG placement by GI on 07/15 2. Malnutrition - Continue Glucerna via NG tube 3. Functional quadriplegia 4. Dementia 5. Parkinson disease - Continue Sinemet, Exelon, Neupro 6. Leukocytosis - Likely reactive - No evidence of active infection 7. Thrombocytosis - Likely reactive 8. Anemia secondary to chronic illness 9. Stage IV pressure ulcer of sacrum - Continue wound care, Santyl and wet to dry dressing daily 10. Dementia Visit type - Emergency Visit Emergency Visit: Yes ED Registration Date: 07/09/19 Care time: The patient presented to the Emergency Department on the above date and was hospitalized for further evaluation of their emergent condition. - New Patient This patient is new to me today: Yes Date on this admission: 07/13/19 - Critical Care Critical Care patient: No - Discharge Referral Referred to [facility] No
[2019-07-13] MEDS ORDERED: PT OWN MED DRAWER 7, Y5N ONE ×3 (17:51→18:28)
[2019-07-13] MEDS: traMADol HCL 50 MG TABLET PO PRN (18:18)
[2019-07-14] MEDS: HEPARIN NA (PORCINE) 5,000 UNITS/ML 1ML VIAL SQ SCH ×3 (05:37→21:21)
[2019-07-14] MEDS: CARBIDOPA/LEVODOPA 25/100 TABLET (FP) PO SCH ×3 (06:37→18:15)
[2019-07-14 08:03] LABS: BASO % 1.2 % (0-2.0); EOS % 0.5 % (0-4.5); HEMATOCRIT 28.8 % (32.4-45.2); HEMOGLOBIN 9.2 GM/dL (10.7-15.3); LYMPH % 27.4 % (8-40); MCH 22.9 pg (25.7-33.7); MEAN CELL VOLUME 71.5 fl (80-96); MEAN PLT VOLUME 8.2 fl (7.5-11.1); MONO % 7.6 % (3.8-10.2); NEUT % 63.3 % (42.8-82.8); PLATELET COUNT 566 K/MM3 (134-434); RBC 4.03 M/mm3 (3.60-5.2); RDW 16.2 % (11.6-15.6); WHITE BLOOD COUNT 13.1 K/mm3 (4.0-10.0)
[2019-07-14 08:21] LABS: BLOOD UREA NITROGEN 16.4 mg/dL (7-18); CALCIUM 8.6 mg/dL (8.5-10.1); CREATININE 0.5 mg/dL (0.55-1.3); MAGNESIUM 2.2 mg/dL (1.8-2.4); PHOSPHOROUS 4.1 mg/dL (2.5-4.9); POTASSIUM 4.5 mmol/L (3.5-5.1)
[2019-07-14] MEDS: PATIENT'S OWN MEDICATION (NON-FORMULARY) (Rotigotine [Neupro] 1 EACH) TD SCH (10:29)
[2019-07-14] MEDS: COLLAGENASE CLOSTRIDIUM HIST. 30 GRAMS TUBE TP SCH (10:30)
[2019-07-14] MEDS: ASPIRIN 81 MG CHEWABLE TABLETS PO SCH (10:30)
[2019-07-14] MEDS: PANTOPRAZOLE SODIUM 40 MG VIAL IVPUSH SCH (10:30)
[2019-07-14] MEDS: OLANZapine 5 MG TABLET PO SCH (10:30)
[2019-07-14] MEDS: traMADol HCL 50 MG TABLET PO PRN (12:02)
--- NOTE | 2019-07-14 17:45 | PN ---
Teaching Attending Note Name of Resident: Joanne Wilks ATTENDING PHYSICIAN STATEMENT I saw and evaluated the patient. I reviewed the resident's note and discussed the case with the resident. I agree with the resident's findings and plan as documented. SUBJECTIVE: Patient opens eyes when called. She appears comfortable. OBJECTIVE: Vital Signs Period Temp Pulse Resp BP Sys/Campbell Pulse Ox Last 24 Hr 98.2 F-98.6 F 81-88 18-20 98/71 98 GENERAL: The patient is awake, alert, and confused, in no acute distress. LUNGS: Breath sounds equal, clear to auscultation bilaterally, no wheezes, no crackles, no accessory muscle use. HEART: Regular rate and rhythm, S1, S2 without murmur, rub or gallop. ABDOMEN: Soft, nontender, nondistended, normoactive bowel sounds, no guarding, no rebound, no hepatosplenomegaly, no masses. EXTREMITIES: 2+ pulses, warm, well-perfused, no edema. Laboratory Results - last 24 hr 07/14/19 07/14/19 07/14/19 07:10 07:10 11:44 WBC 13.1 H RBC 4.03 Hgb 9.2 L Hct 28.8 L MCV 71.5 L MCH 22.9 L MCHC 32.0 RDW 16.2 H Plt Count 566 H MPV 8.2 Absolute Neuts (auto) 8.3 H Neutrophils % 63.3 Lymphocytes % 27.4 D Monocytes % 7.6 Eosinophils % 0.5 Basophils % 1.2 Nucleated RBC % 0 Sodium 134 L Potassium 4.5 Chloride 101 Carbon Dioxide 27 Anion Gap 6 L BUN 16.4 Creatinine 0.5 L Est GFR (CKD-EPI)AfAm 105.20 Est GFR (CKD-EPI)NonAf 90.77 POC Glucometer 105 Random Glucose 98 Calcium 8.6 Phosphorus 4.1 Magnesium 2.2 Stool Occult Blood 07/14/19 12:00 WBC RBC Hgb Hct MCV MCH MCHC RDW Plt Count MPV Absolute Neuts (auto) Neutrophils % Lymphocytes % Monocytes % Eosinophils % Basophils % Nucleated RBC % Sodium Potassium Chloride Carbon Dioxide Anion Gap BUN Creatinine Est GFR (CKD-EPI)AfAm Est GFR (CKD-EPI)NonAf POC Glucometer Random Glucose Calcium Phosphorus Magnesium Stool Occult Blood Negative Current Medications Generic Name Dose Route Start Last Admin Trade Name Freq PRN Reason Stop Dose Admin Aspirin 81 mg 07/14/19 10:00 07/14/19 10:30 Asa - PO 81 mg DAILY [facility] Administration Carbidopa/Levodopa 2 each 07/09/19 23:37 07/14/19 12:02 Sinemet 25/100 - PO 2 each TID@0700,1200,1900 [facility] Administration Collagenase 1 applic 07/10/19 10:00 07/14/19 10:30 Santyl - TP 1 applic DAILY [facility] Administration Protocol Heparin Sodium (Porcine) 5,000 unit 07/10/19 15:30 07/14/19 15:44 Heparin - SQ 5,000 unit TID [facility] Administration Melatonin 5 mg 07/14/19 22:00 Melatonin PO HS [facility] Non-Formulary Medication 1 each 07/10/19 10:00 07/14/19 10:29 Rotigotine [Neupro] TD 1 each DAILY [facility] Administration Olanzapine 7.5 mg 07/14/19 10:00 07/14/19 10:30 Zyprexa - PO 7.5 mg DAILY [facility] Administration Pantoprazole Sodium 40 mg 07/14/19 10:00 07/14/19 10:30 Protonix Iv IVPUSH 40 mg DAILY [facility] Administration Rivastigmine 1 each 07/10/19 10:00 07/13/19 10:25 Exelon Patch 4.6mg/24 Hours - TD 1 each DAILY [facility] Administration Tramadol HCl 50 mg 07/10/19 11:40 07/14/19 12:02 Ultram - PO 50 mg Q8H PRN Administration PAIN LEVEL 7 - 10 ASSESSMENT AND PLAN: This is an 79 year old woman with a history of Parksinson Disease, dementia, G- tube who presented to the ED after her G-tube became dislodged. 1. G-tube dislodgement - Plan for PEG placement by GI on 07/15 2. Malnutrition - Continue Glucerna via NG tube 3. Functional quadriplegia 4. Dementia 5. Parkinson disease - Continue Sinemet, Exelon, Neupro 6. Leukocytosis - Likely reactive - No evidence of active infection 7. Thrombocytosis - Likely reactive - Improving 8. Anemia secondary to chronic illness 9. Stage IV pressure ulcer of sacrum - Continue wound care, Santyl and wet to dry dressing daily - Surgery to evaluate for VAC 10. Dementia
[2019-07-14] MEDS: RIVASTIGMINE 4.6 MG/24 HOURS TRANSDERMAL PATCH TD SCH (18:44)
--- NOTE | 2019-07-14 18:47 | PN ---
Physical Exam: SUBJECTIVE: Patient seen and examined at bedside. Pt does not verbalize any complaints. OBJECTIVE: Vital Signs Period Temp Pulse Resp BP Sys/Campbell Pulse Ox Last 24 Hr 98.2 F-98.6 F 81-88 18- 98/71 98 GENERAL: The patient is awake, alert, in no acute distress. HEAD: Normal with no signs of trauma. LUNGS: Breath sounds equal, no wheezes, no crackles, no accessory muscle use. HEART: Regular rate and rhythm, S1, S2 without murmur, rub or gallop. ABDOMEN: Soft, nontender, nondistended, normoactive bowel sounds, no guarding EXTREMITIES: 2+ pulses, warm, well-perfused, no edema. SKIN: Warm, dry, normal turgor, no rashes or lesions noted Laboratory Results - last 24 hr 07/14/19 07/14/19 07/14/19 07:10 07:10 11:44 WBC 13.1 H RBC 4.03 Hgb 9.2 L Hct 28.8 L MCV 71.5 L MCH 22.9 L MCHC 32.0 RDW 16.2 H Plt Count 566 H MPV 8.2 Absolute Neuts (auto) 8.3 H Neutrophils % 63.3 Lymphocytes % 27.4 D Monocytes % 7.6 Eosinophils % 0.5 Basophils % 1.2 Nucleated RBC % 0 Sodium 134 L Potassium 4.5 Chloride 101 Carbon Dioxide 27 Anion Gap 6 L BUN 16.4 Creatinine 0.5 L Est GFR (CKD-EPI)AfAm 105.20 Est GFR (CKD-EPI)NonAf 90.77 POC Glucometer 105 Random Glucose 98 Calcium 8.6 Phosphorus 4.1 Magnesium 2.2 Stool Occult Blood Current Medications Aspirin (Asa -) 81 mg PO DAILY [facility] Last Admin: 07/14/19 10:30 Dose: 81 mg Carbidopa/Levodopa (Sinemet 25/100 -) 2 each PO TID@0700,1200,1900 [facility] Last Admin: 07/14/19 18:15 Dose: 2 each Collagenase (Santyl -) 1 applic TP DAILY [facility]; Protocol Last Admin: 07/14/19 10:30 Dose: 1 applic Heparin Sodium (Porcine) (Heparin -) 5,000 unit SQ TID [facility] Last Admin: 07/14/19 15:44 Dose: 5,000 unit Melatonin (Melatonin) 5 mg PO HS [facility] Non-Formulary Medication (Rotigotine [Neupro]) 1 each TD DAILY [facility] Last Admin: 07/14/19 10:29 Dose: 1 each Olanzapine (Zyprexa -) 7.5 mg PO DAILY [facility] Last Admin: 07/14/19 10:30 Dose: 7.5 mg Pantoprazole Sodium (Protonix Iv) 40 mg IVPUSH DAILY [facility] Last Admin: 07/14/19 10:30 Dose: 40 mg Rivastigmine (Exelon Patch 4.6mg/24 Hours -) 1 each TD DAILY [facility] Last Admin: 07/14/19 18:44 Dose: Not Given Tramadol HCl (Ultram -) 50 mg PO Q8H PRN PRN Reason: PAIN LEVEL 7 - 10 Last Admin: 07/14/19 12:02 Dose: 50 mg ASSESSMENT/PLAN: 79 F with PMH of Parksinson's Disease, dementia, and recent admission for sepsis with discharge (07/04/2019), and recent G-Tube placement presents with G- Tube dislodgement. PEG tube placement - NG tube now for oral meds and Jevity feeds - PEG to be placed with internal bolster as opposed to balloon wed 07/14. Daughter in agreement. -aspiration precautions. Failure to thrive -Patient receives all nutrition through G-Tube -Bedbound, weakness in all extremities -Dietary consult Thrombocytosis , Leukocytosis possibly -Thrombocytosis of 613, now 566 -Trend CBC Parkinson's Disease -Continuing Sinamet NGT, Rivastigime and Ritogitine patches Decubitus ulcer -c/w surgery recs (Dr. Hansen) -c/w santyl and wet to dry - surgery will eval tomorrow for wound vac DVT ppx: Heparin Visit type - Emergency Visit Emergency Visit: No - New Patient This patient is new to me today: No - Critical Care Critical Care patient: No - Discharge Referral Referred to [facility] No ATTENDING PHYSICIAN STATEMENT I saw and evaluated the patient. I reviewed the resident's note and discussed the case with the resident. I agree with the resident's findings and plan as documented. SUBJECTIVE: OBJECTIVE: ASSESSMENT AND PLAN:
[2019-07-14] MEDS: MELATONIN 5 MG TABLETS PO SCH (21:21)
[2019-07-15] MEDS: CARBIDOPA/LEVODOPA 25/100 TABLET (FP) PO SCH ×3 (06:04→18:07)
[2019-07-15 08:10] LABS: BASO % 0.6 % (0-2.0); HEMATOCRIT 30.5 % (32.4-45.2); HEMOGLOBIN 9.8 GM/dL (10.7-15.3); LYMPH % 26.3 % (8-40); MCH 23.1 pg (25.7-33.7); MCHC 32.1 g/dl (32.0-36.0); MEAN PLT VOLUME 8.5 fl (7.5-11.1); MONO % 9.4 % (3.8-10.2); NEUT % 62.7 % (42.8-82.8); PLATELET COUNT 558 K/MM3 (134-434); RBC 4.24 M/mm3 (3.60-5.2); WHITE BLOOD COUNT 11.3 K/mm3 (4.0-10.0)
[2019-07-15 08:29] LABS: BLOOD UREA NITROGEN 23.5 mg/dL (7-18); CALCIUM 8.5 mg/dL (8.5-10.1); CREATININE 0.7 mg/dL (0.55-1.3); POTASSIUM 5.1 mmol/L (3.5-5.1)
--- NOTE | 2019-07-15 09:30 | PN ---
Progress Note (short form) - Note Progress Note: SURGERY 79yo F h/o decubitus ulcer. Pt has been getting wet to dry dressings with santyl since Saturday without incident. Pt demented unable to give any history. Last Vital Signs Temp Pulse Resp BP Pulse Ox 98.9 F 94 H 20 138/59 L 96 07/15/19 06:46 07/15/19 06:46 07/15/19 06:46 07/15/19 06:46 07/14/19 23:38 CBC, BMP 07/15/19 06:33 07/15/19 06:33 PE; Gen: Awake and disoriented Resp: breathing comfortably Back: large decubitus ulcer 14cm x 16cm mostly granulation tissue with patch in RUQ with fibrinous tissue, improved from previous exam. Problem List - Problems (1) Decubitus ulcer Assessment/Plan: Plan -wound continues to improve, continue with santyl for a couple more days then place VAC on Monday 07/17 Code(s): L89.90 - PRESSURE ULCER OF UNSPECIFIED SITE, UNSPECIFIED STAGE Qualifiers: Pressure injury location: contiguous region involving back and buttock Pressure injury stage: stage 4 Laterality: unspecified laterality Qualified Code(s): L89.44 - Pressure ulcer of contiguous site of back, buttock and hip, stage 4
[2019-07-15 09:31] LABS: INR 1.22 (0.83-1.09); PROTHROMBIN TIME (PATIENT) 14.4 SEC (9.7-13.0)
[2019-07-15] MEDS: ASPIRIN 81 MG CHEWABLE TABLETS PO SCH (10:24)
[2019-07-15] MEDS: PANTOPRAZOLE SODIUM 40 MG VIAL IVPUSH SCH (10:37)
[2019-07-15] MEDS: COLLAGENASE CLOSTRIDIUM HIST. 30 GRAMS TUBE TP SCH (10:38)
[2019-07-15] MEDS: PATIENT'S OWN MEDICATION (NON-FORMULARY) (Rotigotine [Neupro] 1 EACH) TD SCH (10:38)
[2019-07-15] MEDS: OLANZapine 5 MG TABLET PO SCH (10:38)
[2019-07-15] MEDS ORDERED: MIDAZOLAM HCL 2 MG/2 ML SINGLE DOSE VIAL ONE (11:59)
[2019-07-15] MEDS ORDERED: CEFAZOLIN 1 GM/D5W 1 GM/50 ML BAG ONE (12:00)
[2019-07-15] MEDS ORDERED: ceFAZolin SODIUM 1 GM VIAL IVPB ONE (12:03)
[2019-07-15] MEDS ORDERED: LIDOCAINE 1% P/F 10 MG/ML VIAL INF ONE (12:19)
--- NOTE | 2019-07-15 12:44 | PN ---
Progress Note (short form) - Note Progress Note: Brief GI note EGD performed today with successful PEG placement. Please see scanned endoscopy report and post procedure PEG instructions. Ok to use G tube for meds today. Can start feeds tomorrow once re-evaluated by GI team. Please notify GI if questions in the interim.
[2019-07-15] MEDS: RIVASTIGMINE 4.6 MG/24 HOURS TRANSDERMAL PATCH TD SCH (13:39)
[2019-07-15] MEDS: SODIUM CHLORIDE 1,000 ML IV SCH (15:09)
--- NOTE | 2019-07-15 17:36 | PN ---
Teaching Attending Note Name of Resident: Ruben Mckeon ATTENDING PHYSICIAN STATEMENT I saw and evaluated the patient. I reviewed the resident's note and discussed the case with the resident. I agree with the resident's findings and plan as documented. SUBJECTIVE: No events. unable to obtain hx from patient OBJECTIVE: MMM. speaks few words withher eyes closed CV: RRR. Lungs: clear anteriorly Abd: soft, NT, ND, NL BS. abd binder o n , Peg tub in place with clean tape and gauze Ext: trace edema on feet. Skin: stage 4 sacral decub ulcer with no discharge. no surrounding erythema . clean base with some slough in the upper corner ASSESSMENT AND PLAN: 79 y/o lady with h/o Parkinson Disease and dementia who presented with AMS. 1- dislodged PEG tube 2- satge 4 decub ulcer 3- Leukocytosis 4- Microcytic anemia 5- Dementia 6- Functional quadriplegia 7- h/o HTN Plan: - s/p placement of PEG. - will start tubes tomorrow - for wound vac placement on Saturday - no fever . monitor leukocytosis - cont zyprexa, sinemet, and Neupro. - cont SQ heparin
--- NOTE | 2019-07-15 19:01 | PN ---
Physical Exam: SUBJECTIVE: Patient seen and examined at bedside. pt is lethargic . OBJECTIVE: Vital Signs Period Temp Pulse Resp BP Sys/Campbell Pulse Ox Last 24 Hr 97.8 F-99.3 F 82-98 16-24 99-138/53-79 96-100 GENERAL: The patient is lethargic HEAD: Normal with no signs of trauma. EYES: PERRL LUNGS: Breath sounds equal,bibasilar crackles, no accessory muscle use. HEART: Regular rate and rhythm, S1, S2 ABDOMEN: Soft, nontender, nondistended, normoactive bowel sounds, no guarding. PEG in place. EXTREMITIES: 2+ pulses, warm, well-perfused, no edema. SKIN: Warm, dry, normal turgor, no rashes or lesions noted Laboratory Results - last 24 hr 07/15/19 07/15/19 07/15/19 00:22 06:02 06:33 WBC 11.3 H RBC 4.24 Hgb 9.8 L Hct 30.5 L MCV 72.0 L MCH 23.1 L MCHC 32.1 RDW 16.0 H Plt Count 558 H MPV 8.5 Absolute Neuts (auto) 7.1 Neutrophils % 62.7 Lymphocytes % 26.3 Monocytes % 9.4 Eosinophils % 1.0 D Basophils % 0.6 Nucleated RBC % 0 PT with INR INR Sodium Potassium Chloride Carbon Dioxide Anion Gap BUN Creatinine Est GFR (CKD-EPI)AfAm Est GFR (CKD-EPI)NonAf POC Glucometer 112 103 Random Glucose Calcium 07/15/19 07/15/19 07/15/19 06:33 06:33 11:33 WBC RBC Hgb Hct MCV MCH MCHC RDW Plt Count MPV Absolute Neuts (auto) Neutrophils % Lymphocytes % Monocytes % Eosinophils % Basophils % Nucleated RBC % PT with INR 14.40 H INR 1.22 H Sodium 136 Potassium 5.1 Chloride 102 Carbon Dioxide 28 Anion Gap 7 L BUN 23.5 H Creatinine 0.7 Est GFR (CKD-EPI)AfAm 94.18 Est GFR (CKD-EPI)NonAf 81.26 POC Glucometer 102 Random Glucose 90 Calcium 8.5 Current Medications Aspirin (Asa -) 81 mg PO DAILY [facility] Last Admin: 07/15/19 10:24 Dose: Not Given Bacitracin (Bacitracin -) 1 applic TP BID [facility] Carbidopa/Levodopa (Sinemet 25/100 -) 2 each PO TID@0700,1200,1900 [facility] Last Admin: 07/15/19 18:07 Dose: 2 each Collagenase (Santyl -) 1 applic TP DAILY [facility]; Protocol Last Admin: 07/15/19 10:38 Dose: 1 applic Heparin Sodium (Porcine) (Heparin -) 5,000 unit SQ TID [facility] Last Admin: 07/14/19 21:21 Dose: 5,000 unit Sodium Chloride (Normal Saline -) 1,000 mls @ 83 mls/hr IV ASDIR [facility] Last Admin: 07/15/19 15:09 Dose: 83 mls/hr Melatonin (Melatonin) 5 mg PO HS [facility] Last Admin: 07/14/19 21:21 Dose: 5 mg Non-Formulary Medication (Rotigotine [Neupro]) 1 each TD DAILY [facility] Last Admin: 07/15/19 10:38 Dose: 1 each Olanzapine (Zyprexa -) 7.5 mg PO DAILY [facility] Last Admin: 07/15/19 10:38 Dose: 7.5 mg Pantoprazole Sodium (Protonix Iv) 40 mg IVPUSH DAILY [facility] Last Admin: 07/15/19 10:37 Dose: 40 mg Rivastigmine (Exelon Patch 4.6mg/24 Hours -) 1 each TD DAILY [facility] Last Admin: 07/15/19 13:39 Dose: 1 each ASSESSMENT/PLAN: 79 F with PMH of Parksinson's Disease, dementia, and recent admission for sepsis with discharge (07/04/2019), and recent G-Tube placement presents with G- Tube dislodgement. PEG tube placement - PEG placed today. ok to use for meds tonight. will resume feeds in am -aspiration precautions. -on IVF Failure to thrive -Patient receives all nutrition through G-Tube -Bedbound, weakness in all extremities -Dietary consult -Jevity 1.5 start at 30 ml/hr, increase by 10 ml /h every 6-8 hr as tolerated with a goal of 60 ml/hr - water flush 45 ml/hr -prosource SF 30 ml daily Thrombocytosis , Leukocytosis possibly -Thrombocytosis of 613, now 558 -Trend CBC Parkinson's Disease -Continuing Sinamet NGT, Rivastigime and Ritogitine patches Decubitus ulcer -c/w surgery recs (Dr. Hansen) -c/w santyl and wet to dry - possible wound vac for saturday DVT ppx: Heparin Visit type - Emergency Visit Emergency Visit: No - New Patient This patient is new to me today: No - Critical Care Critical Care patient: No - Discharge Referral Referred to [facility] No ATTENDING PHYSICIAN STATEMENT I saw and evaluated the patient. I reviewed the resident's note and discussed the case with the resident. I agree with the resident's findings and plan as documented. SUBJECTIVE: OBJECTIVE: ASSESSMENT AND PLAN:
[2019-07-15] MEDS ORDERED: ACETAMINOPHEN 1000 MG/100 ML VIAL (NON FORMULARY) IVPB ONE (21:39)
[2019-07-15] MEDS: BACITRACIN 15 GM TUBE TOPICAL OINTMENT TP SCH (22:11)
[2019-07-15] MEDS: HEPARIN NA (PORCINE) 5,000 UNITS/ML 1ML VIAL SQ SCH (22:11)
[2019-07-15] MEDS: MELATONIN 5 MG TABLETS PO SCH (22:12)
[2019-07-16] MEDS: HEPARIN NA (PORCINE) 5,000 UNITS/ML 1ML VIAL SQ SCH ×3 (06:20→21:54)
[2019-07-16] MEDS: CARBIDOPA/LEVODOPA 25/100 TABLET (FP) PO SCH ×3 (06:21→20:25)
--- NOTE | 2019-07-16 07:16 | PN ---
Physical Exam: SUBJECTIVE: Patient seen and examined at bedside. pt has no acute complaints. denies CP or SOB OBJECTIVE: Vital Signs Period Temp Pulse Resp BP Sys/Campbell Pulse Ox Last 24 Hr 97.8 F-99.3 F 68-98 16-24 98-122/59-79 96-100 GENERAL: The patient is awake and alert and oriented to self HEAD: Normal with no signs of trauma. LUNGS: Breath sounds equal, clear to auscultation, no accessory muscle use. HEART: Regular rate and rhythm, S1, S2 ABDOMEN: Soft, nontender, nondistended, normoactive bowel sounds, no guarding. PEG in place. EXTREMITIES: 2+ pulses, warm, well-perfused, no edema. SKIN: Warm, dry, normal turgor, no rashes or lesions noted Laboratory Results - last 24 hr 07/15/19 07/15/19 07/15/19 06:33 06:33 06:33 WBC 11.3 H RBC 4.24 Hgb 9.8 L Hct 30.5 L MCV 72.0 L MCH 23.1 L MCHC 32.1 RDW 16.0 H Plt Count 558 H MPV 8.5 Absolute Neuts (auto) 7.1 Neutrophils % 62.7 Lymphocytes % 26.3 Monocytes % 9.4 Eosinophils % 1.0 D Basophils % 0.6 Nucleated RBC % 0 PT with INR 14.40 H INR 1.22 H Sodium 136 Potassium 5.1 Chloride 102 Carbon Dioxide 28 Anion Gap 7 L BUN 23.5 H Creatinine 0.7 Est GFR (CKD-EPI)AfAm 94.18 Est GFR (CKD-EPI)NonAf 81.26 POC Glucometer Random Glucose 90 Calcium 8.5 Current Medications Amino Acids (Prosource No Carb Liquid Pkt) 30 ml PO DAILY [facility] Aspirin (Asa -) 81 mg PO DAILY [facility] Last Admin: 07/15/19 10:24 Dose: Not Given Bacitracin (Bacitracin -) 1 applic TP BID [facility] Last Admin: 07/15/19 22:11 Dose: 1 applic Carbidopa/Levodopa (Sinemet 25/100 -) 2 each PO TID@0700,1200,1900 [facility] Last Admin: 07/16/19 06:21 Dose: 2 each Collagenase (Santyl -) 1 applic TP DAILY [facility]; Protocol Last Admin: 07/15/19 10:38 Dose: 1 applic Heparin Sodium (Porcine) (Heparin -) 5,000 unit SQ TID [facility] Last Admin: 07/16/19 06:20 Dose: 5,000 unit Sodium Chloride (Normal Saline -) 1,000 mls @ 83 mls/hr IV ASDIR [facility] Last Admin: 07/15/19 15:09 Dose: 83 mls/hr Melatonin (Melatonin) 5 mg PO HS [facility] Last Admin: 07/15/19 22:12 Dose: 5 mg Non-Formulary Medication (Rotigotine [Neupro]) 1 each TD DAILY [facility] Last Admin: 07/15/19 10:38 Dose: 1 each Olanzapine (Zyprexa -) 7.5 mg PO DAILY [facility] Last Admin: 07/15/19 10:38 Dose: 7.5 mg Pantoprazole Sodium (Protonix Iv) 40 mg IVPUSH DAILY [facility] Last Admin: 07/15/19 10:37 Dose: 40 mg Rivastigmine (Exelon Patch 4.6mg/24 Hours -) 1 each TD DAILY [facility] Last Admin: 07/15/19 13:39 Dose: 1 each ASSESSMENT/PLAN: 79 F with PMH of Parksinson's Disease, dementia, and recent admission for sepsis with discharge (07/04/2019), and recent G-Tube placement presents with G- Tube dislodgement. PEG tube placement - PEG placed yesterday .feeds resumed today -aspiration precautions. Failure to thrive -Patient receives all nutrition through G-Tube -Bedbound, weakness in all extremities -Dietary consult -Jevity 1.5 start at 30 ml/hr, increase by 10 ml /h every 6-8 hr as tolerated with a goal of 60 ml/hr - water flush 45 ml/hr -prosource SF 30 ml daily Thrombocytosis , Leukocytosis possibly -Thrombocytosis of 613, now 558 -Trend CBC Parkinson's Disease -Continuing Sinamet NGT, Rivastigime and Ritogitine patches Decubitus ulcer -c/w surgery recs (Dr. Hansen) -c/w santyl and wet to dry - wound vac for tomorrow DVT ppx: Heparin Visit type - Emergency Visit Emergency Visit: No - New Patient This patient is new to me today: No - Critical Care Critical Care patient: No - Discharge Referral Referred to [facility] No ATTENDING PHYSICIAN STATEMENT I saw and evaluated the patient. I reviewed the resident's note and discussed the case with the resident. I agree with the resident's findings and plan as documented. SUBJECTIVE: OBJECTIVE: ASSESSMENT AND PLAN:
[2019-07-16 07:39] LABS: BASO % 1.4 % (0-2.0); EOS % 1.7 % (0-4.5); HEMATOCRIT 28.5 % (32.4-45.2); HEMOGLOBIN 9.1 GM/dL (10.7-15.3); LYMPH % 28.2 % (8-40); MCH 23.1 pg (25.7-33.7); MEAN CELL VOLUME 72.3 fl (80-96); MEAN PLT VOLUME 8.4 fl (7.5-11.1); MONO % 9.4 % (3.8-10.2); NEUT % 59.3 % (42.8-82.8); PLATELET COUNT 537 K/MM3 (134-434); RBC 3.95 M/mm3 (3.60-5.2); RDW 16.3 % (11.6-15.6); WHITE BLOOD COUNT 8.3 K/mm3 (4.0-10.0)
[2019-07-16 08:13] LABS: ALBUMIN 2.3 g/dl (3.4-5.0); ALK PHOS 69 U/L (45-117); ANION GAP 7 MMOL/L (8-16); BILIRUBIN,TOTAL 0.3 mg/dL (0.2-1); BLOOD UREA NITROGEN 15.4 mg/dL (7-18); CALCIUM 8.2 mg/dL (8.5-10.1); CHLORIDE 109 mmol/L (98-107); CO2 25 mmol/L (21-32); CREATININE 0.6 mg/dL (0.55-1.3); GLUCOSE,RANDOM 84 mg/dL (74-106); MAGNESIUM 2.2 mg/dL (1.8-2.4); PHOSPHOROUS 4.1 mg/dL (2.5-4.9); POTASSIUM 4.1 mmol/L (3.5-5.1); SGOT/AST 13 U/L (15-37); SGPT/ALT < 6 U/L (13-61); SODIUM 140 mmol/L (136-145); TOT PROT 6.3 g/dl (6.4-8.2)
[2019-07-16] MEDS ORDERED: PT OWN MED DRAWER 7, Y5N ONE ×3 (10:15→16:59)
[2019-07-16] MEDS: PANTOPRAZOLE SODIUM 40 MG VIAL IVPUSH SCH (10:17)
[2019-07-16] MEDS: OLANZapine 5 MG TABLET PO SCH (10:18)
[2019-07-16] MEDS: AMINO ACIDS/PROTEIN HYDROLYS 30 ML LIQUID.PKT PO SCH (10:19)
[2019-07-16] MEDS: PATIENT'S OWN MEDICATION (NON-FORMULARY) (Rotigotine [Neupro] 1 EACH) TD SCH (10:19)
[2019-07-16] MEDS: RIVASTIGMINE 4.6 MG/24 HOURS TRANSDERMAL PATCH TD SCH (10:19)
[2019-07-16] MEDS: ASPIRIN 81 MG CHEWABLE TABLETS PO SCH (10:28)
[2019-07-16] MEDS: BACITRACIN 15 GM TUBE TOPICAL OINTMENT TP SCH ×2 (10:28→21:56)
[2019-07-16] MEDS: COLLAGENASE CLOSTRIDIUM HIST. 30 GRAMS TUBE TP SCH (10:29)
[2019-07-16] MEDS: SODIUM CHLORIDE 1,000 ML IV SCH (14:59)
--- NOTE | 2019-07-16 17:37 | PN ---
Progress Note (short form) - Note Progress Note: G-Tube site evaluated. combine dressing was removed. There was a PEG noted in the upper abdomen. It was at the 3cm nithya at the level of the abdominal wall. It was rotating freely. OK to use PEG for feeds. Keep head of bed elevated 35 degrees at all times. Other recommendations per PEG report. PAtient's daughter was bedside during my evaluation.
--- NOTE | 2019-07-16 18:10 | PN ---
Teaching Attending Note Name of Resident: Joanne Wilks ATTENDING PHYSICIAN STATEMENT I saw and evaluated the patient. I reviewed the resident's note and discussed the case with the resident. I agree with the resident's findings and plan as documented. SUBJECTIVE: seen around 11:30 am no pain, no SOB . feels " good " OBJECTIVE: MMM. speaks few words. has eye contact today CV: RRR. Lungs: clear anteriorly Abd: soft, NT, ND, NL BS. a, Peg tub in place with clean surrounding skin. No erythema or discharge Ext: trace edema on feet. Skin: stage 4 sacral decub ulcer was not examined today ASSESSMENT AND PLAN: 79 y/o lady with h/o Parkinson Disease and dementia who presented with AMS. 1- dislodged PEG tube 2- satge 4 decub ulcer 3- Leukocytosis: resolved 4- Microcytic anemia 5- Dementia 6- Functional quadriplegia 7- h/o HTN Plan: - S/p placement of PEG. - started TF today - for wound vac placement on Saturday. - leukocytosis resolved - cont zyprexa, sinemet, and Neupro. - cont SQ heparin.
[2019-07-16] MEDS: MELATONIN 5 MG TABLETS PO SCH (21:56)
[2019-07-17] MEDS: CARBIDOPA/LEVODOPA 25/100 TABLET (FP) PO SCH ×2 (07:03→11:37)
[2019-07-17] MEDS: HEPARIN NA (PORCINE) 5,000 UNITS/ML 1ML VIAL SQ SCH ×2 (07:03→15:52)
--- NOTE | 2019-07-17 08:35 | PN ---
Progress Note (short form) - Note Progress Note: GENERAL SURGERY - Sacral Wound re-evaluation Seen and examined at bedside. No acute events per RN notes. Resting comfortably. AVSS. Afebrile. PE Gen: Awake. Disoriented (baseline) Resp: unlabored respirations on room air Back: Stage 4 sacral decubitus ulcer ~14 cm x 16 cm mostly granulation tissue. not malodorous. no evidnece of infection. improved compared to previous exam. Problem List - Problems (1) Decubitus ulcer Assessment/Plan: Per patient's RN, patient has a personal wound VAC from home. She lives at home and is cared for by family members. Only thing keeping patient in hospital at this time was a surgical re- evaluation. Following recommendations: If patient has wound VAC/Supplies at home, can pack her sacral wound with wet kerlix and cover with abd pads until her VAC can be reapplied at home. If she doesn't have the VAC/supplies anymore, please contact [facility] and will have to fill out the necessary paperwork. No further surgical intervention. Re-consult PRN On behalf of Dr. Hansen thank you for the opportunity to participate in your patient's care. Code(s): L89.90 - PRESSURE ULCER OF UNSPECIFIED SITE, UNSPECIFIED STAGE Qualifiers: Pressure injury location: contiguous region involving back and buttock Pressure injury stage: stage 4 Laterality: unspecified laterality Qualified Code(s): L89.44 - Pressure ulcer of contiguous site of back, buttock and hip, stage 4 (2) JOS (acute kidney injury) Code(s): N17.9 - ACUTE KIDNEY FAILURE, UNSPECIFIED (3) Altered mental status Code(s): R41.82 - ALTERED MENTAL STATUS, UNSPECIFIED Qualifiers: Altered mental status type: disorientation Qualified Code(s): R41.0 - Disorientation, unspecified (4) Failure to thrive Code(s): IWN8705 -
[2019-07-17] MEDS ORDERED: PT OWN MED DRAWER 7, Y5N ONE ×2 (10:58→16:26)
[2019-07-17] MEDS: OLANZapine 5 MG TABLET PO SCH (11:36)
[2019-07-17] MEDS: PATIENT'S OWN MEDICATION (NON-FORMULARY) (Rotigotine [Neupro] 1 EACH) TD SCH (11:37)
[2019-07-17] MEDS: ASPIRIN 81 MG CHEWABLE TABLETS PO SCH (11:37)
[2019-07-17] MEDS: RIVASTIGMINE 4.6 MG/24 HOURS TRANSDERMAL PATCH TD SCH (11:37)
[2019-07-17] MEDS: PANTOPRAZOLE SODIUM 40 MG VIAL IVPUSH SCH (11:37)
[2019-07-17] MEDS: AMINO ACIDS/PROTEIN HYDROLYS 30 ML LIQUID.PKT PO SCH (11:37)
[2019-07-17] MEDS: COLLAGENASE CLOSTRIDIUM HIST. 30 GRAMS TUBE TP SCH (11:38)
[2019-07-17] MEDS: BACITRACIN 15 GM TUBE TOPICAL OINTMENT TP SCH (11:39)
[2019-07-17 12:48] VITALS: BMI 23.0
--- NOTE | 2019-07-17 14:03 | DS ---
Physical Exam: SUBJECTIVE: Patient seen and examined at bedside. pt has no acute complaints. OBJECTIVE: Vital Signs Period Temp Pulse Resp BP Sys/Campbell Pulse Ox Last 24 Hr 97.4 F-98 F 80-95 18-20 108-148/73-92 98 PHYSICAL EXAM GENERAL: The patient is awake and alert and oriented to self HEAD: Normal with no signs of trauma. LUNGS: Breath sounds equal, clear to auscultation, no accessory muscle use. HEART: Regular rate and rhythm, S1, S2 ABDOMEN: Soft, nontender, nondistended, normoactive bowel sounds, no guarding. PEG in place. EXTREMITIES: 2+ pulses, warm, well-perfused, no edema. LABS Laboratory Results - last 24 hr 07/17/19 11:34 POC Glucometer 188 HOSPITAL COURSE: Date of Admission:07/09/19 79 F with PMH of Parksinson's Disease, dementia, and recent admission for sepsis with discharge (07/04/2019), and recent G-Tube placement presents with G- Tube dislodgement. The low profile PEG was placed by Gastroenterology. aspiration precautions were placed. pt was started on Jevity 1.5 tube feeds shortly after. pt was evaluated by dietary and was advised the following feeds: Jevity 1.5 start at 30 ml/hr, increase by 10 ml /h every 6-8 hr as tolerated with a goal of 60 ml/hr with water flush 45 ml/hr. Pt should continue prosource SF 30 ml daily. Pt was also seen by surgery to evaluate her sacral ulcer. pt was on santyl wet to dry dressing changes. Pt should continue to pack her sacral wound with wet kerlix and cover with abd pads until vac is applied. Pt has wound vac at home and instructed on how to use and change vac dressings. Date of Discharge: 07/17/19 Discharge Summary Problems reviewed: Yes Reason For Visit: COMPLICATION OF GASTROSTOMY TUBE - FAILURE/THRIVE Current Active Problems Problem with gastrostomy tube (Acute) Condition: Guarded - Instructions Diet, Activity, Other Instructions: You were evaluated in the hospital because of problems with a PEG tube. You had your PEG tube changed. The low profile Gastrostomy Tube was placed to improve your feeding. You sacral wound was assessed by surgery and was managed with dressing changes and you are going home with a wound vac. You were deemed stable for discharge. MEDICATIONS: - resume home medications as previously prescribed ADDITIONAL INSTRUCTIONS: - Please continue to pack Ms. Prescott's sacral wound with wet kerlix and cover with abd pads until her VAC can be reapplied at home. - Sacral Wound VAC dressing to be changed 3 times/weekly, Saturday-- Saturday - Wound Care: --change Wound VAC if it becomes soiled. --Reposition every two hours while in bed --Use drawsheets when repositioning to reduce friction and shear --Ensure off-loading to all bony areas (heels, ankles, hips and tailbone) with Allevyn/Optifoam Please follow-up with the physicians below: - GI ( Dr. Orosco) to evaluate the PEG tube in 1 week. - Surgery(Jade): to evaluate your sacral wound -Follow up with for your sacral wound with within a week period. -you are being discharged home with wound VAc and VNS services Please seek immediate medical evaluation if you experience: - fever, chills - worsening lethargy - foul-smelling odor or pus in the urine or sacral wound If you have any new, worsening, or concerning symptoms please return to the ED or call 911. Tube feeding : Jevity 1.5 , 60 ml/hour, and water flush of 45 ml /hour . Prosource SF 30 ml daily. flush before and after medications administrations Referrals: Edu Hansen MD [Staff Physician] - Trevor Orosco DO [Staff Physician] - Disposition: HOME - Home Medications Comprehensive Discharge Medication List: Ambulatory Orders Ca/D3/Mag Ox/Zinc/Soybean Grower/Ketan/Bor [Calcium 600-D3 Plus Caplet] 1 each PO HS Aspirin 81 mg PO DAILY 06/01/19 Melatonin 5 mg PO HS 06/01/19 Olanzapine [Zyprexa -] 7.5 mg PO DAILY 06/01/19 Omeprazole 20 mg PO DAILY 06/01/19 Rivastigmine [Exelon Patch 4.6MG/24 Hours -] 1 each TD DAILY 06/01/19 Rotigotine [Neupro] 1 each TD DAILY 06/01/19 Bacitracin - [Bacitracin Topical Ointment -] 1 applic TP TUTA #1 tube Carbidopa/Levodopa 25/100 [Sinemet 25/100 -] 2 each PO TID@0700,1200,1900 30 Days #180 tablet 07/01/19 Foam Bandage [Optifoam] 1 each TP DAILY #12 bandage 07/03/19 Gauze Bandage [Kerlix] 1 each TP DAILY #20 bandage 07/03/19 Sodium Chloride 0.9% Irrig [Normal Saline 0.9% Irrig. Soln -] 500 ml IR DAILY # 5 btl 07/03/19 Tramadol HCl 50 mg PO Q8H PRN #15 tablet MDD 3 tab 07/04/19 Amino Acids/Protein Hydrolys [Prosource No Carb Liquid Pkt] 30 ml PO DAILY #30 packet 07/17/19 Collagenase Clostridium Hist. [Santyl -] 1 applic TP DAILY #1 tube 07/17/19 - Discharge Referral Referred to [facility] Med P.C.: No Physician Referral: Jose Enrique Orosco DO (GI) ATTENDING PHYSICIAN STATEMENT I saw and evaluated the patient. I reviewed the resident's note and discussed the case with the resident. I agree with the resident's findings and plan as documented. SUBJECTIVE: OBJECTIVE: ASSESSMENT AND PLAN:
[2019-07-17 14:13] VITALS: TEMP 97.9
--- NOTE | 2019-07-17 14:31 | PN ---
Teaching Attending Note Name of Resident: Joanne Wilks ATTENDING PHYSICIAN STATEMENT I saw and evaluated the patient. I reviewed the resident's note and discussed the case with the resident. I agree with the resident's findings and plan as documented. SUBJECTIVE: no pain, no SOB . feels " better" OBJECTIVE: MMM. more awake today, has eye contact . answers simple questions CV: RRR. Lungs: clear anteriorly Abd: soft, NT, ND, NL BS. Peg tub in place with clean surrounding skin. No erythema or discharge Ext: no edema on legs Skin: stage 4 sacral decub ulcer was not examined today ASSESSMENT AND PLAN: 79 y/o lady with h/o Parkinson Disease and dementia who presented with AMS. 1- dislodged PEG tube 2- stage 4 decub ulcer 3- Leukocytosis: resolved 4- Microcytic anemia 5- Dementia 6- Functional quadriplegia 7- h/o HTN Plan: - S/p placement of PEG. - cont TF - d/w surgical PA, wound vac placement today - leukocytosis resolved - cont zyprexa, sinemet, and Neupro. dc home with VNS, when VNS services are arranged. medically ready for dc today. daughter on board with plan .
--- NOTE | 2019-07-17 14:44 | DS ---
Physical Exam: SUBJECTIVE: Patient seen and examined at bedside. pt has no acute complaints. denies cp or sob OBJECTIVE: Vital Signs Period Temp Pulse Resp BP Sys/Campbell Pulse Ox Last 24 Hr 97.4 F-98 F 80-95 18-20 108-148/58-92 98 PHYSICAL EXAM GENERAL: The patient is awake and alert and oriented to self HEAD: Normal with no signs of trauma. LUNGS: Breath sounds equal, clear to auscultation, no accessory muscle use. HEART: Regular rate and rhythm, S1, S2 ABDOMEN: Soft, nontender, nondistended, normoactive bowel sounds, no guarding. PEG in place. EXTREMITIES: 2+ pulses, warm, well-perfused, no edema. SKIN: Warm, dry, normal turgor, no rashes or lesions noted LABS Laboratory Results - last 24 hr 07/17/19 11:34 POC Glucometer 188 HOSPITAL COURSE: Date of Admission:07/09/19 79 F with PMH of Parksinson's Disease, dementia, and recent admission for sepsis with discharge (07/04/2019), and recent G-Tube placement presents with G- Tube dislodgement. The low profile PEG was placed by Gastroenterology. aspiration precautions were placed. pt was started on Jevity 1.5 tube feeds shortly after. pt was evaluated by dietary and was advised the following feeds: Jevity 1.5 start at 30 ml/hr, increase by 10 ml /h every 6-8 hr as tolerated with a goal of 60 ml/hr with water flush 45 ml/hr. Pt should continue prosource SF 30 ml daily. Pt was also seen by surgery to evaluate her sacral ulcer. pt was on santyl wet to dry dressing changes. Pt should continue to pack her sacral wound with wet kerlix and cover with abd pads until vac is applied. Pt has wound vac at home and instructed on how to use and change vac dressings. Date of Discharge: 07/17/19 Minutes to complete discharge: 37 <Jaonne Wilks - Last Filed: 07/17/19 18:25> Discharge Summary Problems reviewed: Yes Reason For Visit: COMPLICATION OF GASTROSTOMY TUBE - FAILURE/THRIVE Current Active Problems Problem with gastrostomy tube (Acute) Decubitus ulcer (Chronic) - Home Medications Comprehensive Discharge Medication List: Ambulatory Orders Ca/D3/Mag Ox/Zinc/Sales Team Member/Ketan/Bor [Calcium 600-D3 Plus Caplet] 1 each PO HS Aspirin 81 mg PO DAILY 06/01/19 Melatonin 5 mg PO HS 06/01/19 Olanzapine [Zyprexa -] 7.5 mg PO DAILY 06/01/19 Omeprazole 20 mg PO DAILY 06/01/19 Rivastigmine [Exelon Patch 4.6MG/24 Hours -] 1 each TD DAILY 06/01/19 Rotigotine [Neupro] 1 each TD DAILY 06/01/19 Bacitracin - [Bacitracin Topical Ointment -] 1 applic TP TUTHSA #1 tube Carbidopa/Levodopa 25/100 [Sinemet 25/100 -] 2 each PO TID@0700,1200,1900 30 Days #180 tablet 07/01/19 Foam Bandage [Optifoam] 1 each TP DAILY #12 bandage 07/03/19 Sodium Chloride 0.9% Irrig [Normal Saline 0.9% Irrig. Soln -] 500 ml IR DAILY # 5 btl 07/03/19 Amino Acids/Protein Hydrolys [Prosource No Carb Liquid Pkt] 30 ml PO DAILY #30 packet 07/17/19 Collagenase Clostridium Hist. [Santyl -] 1 applic TP DAILY #1 tube 07/17/19 <Joanne Wilks - Last Filed: 07/17/19 18:25> - Home Medications Comprehensive Discharge Medication List: Ambulatory Orders Ca/D3/Mag Ox/Zinc/Sales Team Member/Ketan/Bor [Calcium 600-D3 Plus Caplet] 1 each PO HS Aspirin 81 mg PO DAILY 06/01/19 Melatonin 5 mg PO HS 06/01/19 Olanzapine [Zyprexa -] 7.5 mg PO DAILY 06/01/19 Omeprazole 20 mg PO DAILY 06/01/19 Rivastigmine [Exelon Patch 4.6MG/24 Hours -] 1 each TD DAILY 06/01/19 Rotigotine [Neupro] 1 each TD DAILY 06/01/19 Bacitracin - [Bacitracin Topical Ointment -] 1 applic TP TUTHSA #1 tube Carbidopa/Levodopa 25/100 [Sinemet 25/100 -] 2 each PO TID@0700,1200,1900 30 Days #180 tablet 07/01/19 Foam Bandage [Optifoam] 1 each TP DAILY #12 bandage 07/03/19 Sodium Chloride 0.9% Irrig [Normal Saline 0.9% Irrig. Soln -] 500 ml IR DAILY # 5 btl 07/03/19 Amino Acids/Protein Hydrolys [Prosource No Carb Liquid Pkt] 30 ml PO DAILY #30 packet 07/17/19 Collagenase Clostridium Hist. [Santyl -] 1 applic TP DAILY #1 tube 07/17/19 Tramadol HCl 50 mg PO Q8H PRN #15 tablet MDD 3 tab 07/17/19 <George Rodriguez - Last Filed: 07/17/19 20:34> Hospital Course: Correction to dc summary. wound vac was placed in hospital on day of dc. VNS services were arranged . no wet to dry dressings Condition: Improved - Instructions Diet, Activity, Other Instructions: You were evaluated in the hospital because of problems with a PEG tube. You had your PEG tube changed. The low profile Gastrostomy Tube was placed to improve your feeding. You sacral wound was assessed by surgery and was managed with dressing changes and you are going home with a wound vac. You were deemed stable for discharge. MEDICATIONS: - resume home medications as previously prescribed ADDITIONAL INSTRUCTIONS: - Sacral Wound VAC dressing to be changed 3 times/weekly, Saturday-- Saturday - Wound Care: --change Wound VAC if it becomes soiled. --Reposition every two hours while in bed --Use drawsheets when repositioning to reduce friction and shear --Ensure off-loading to all bony areas (heels, ankles, hips and tailbone) with Allevyn/Optifoam Please follow-up with the physicians below: - GI ( Dr. Orosco) to evaluate the PEG tube in 1 week. - Surgery(Jade): to evaluate your sacral wound -you are being discharged home with wound VAc and VNS services Please seek immediate medical evaluation if you experience: - fever, chills - worsening lethargy - foul-smelling odor or pus in the urine or sacral wound If you have any new, worsening, or concerning symptoms please return to the ED or call 911. Tube feeding : Jevity 1.5 , 60 ml/hour, and water flush of 45 ml /hour . Prosource SF 30 ml daily. flush before and after medications administrations flush with 50 cc of water after meds administration Referrals: Edu Hansen MD [Staff Physician] - Trevor Orosco DO [Staff Physician] - Disposition: HOME This patient is new to me today: No Emergency Visit: No Critical Care patient: No - Discharge Referral Referred to [facility] Med P.C.: No Physician Referral: Jose Enrique Orosco DO (GI) <Joanne Wilks - Last Filed: 07/17/19 18:25> ATTENDING PHYSICIAN STATEMENT I saw and evaluated the patient. I reviewed the resident's note and discussed the case with the resident. I agree with the resident's findings and plan as documented. SUBJECTIVE: OBJECTIVE: ASSESSMENT AND PLAN: <Joanne Wilks - Last Filed: 07/17/19 18:25> ATTENDING PHYSICIAN STATEMENT I saw and evaluated the patient. I reviewed the resident's note and discussed the case with the resident. I agree with the resident's findings and plan as documented. SUBJECTIVE: OBJECTIVE: ASSESSMENT AND PLAN: <George Rodriguez - Last Filed: 07/17/19 20:34>
[2019-07-17 16:32] VITALS: BP 107/60; PULSE 75
== END 2019-07-17 17:49 | disposition home or self-care (01) | DRG 919 ==
LOC: JER 10:52 → JERBED 17:11 → J8W 23:26
PROVIDERS: ADMIT Internal Medicine; ATTEND Internal Medicine
PROC: 0DP68UZ Removal of Feeding Device from Stomach, Via Natural or Artificial Opening Endoscopic (ICD-10-PCS; 2019-07-15)
PROC: 0DH63UZ Insertion of Feeding Device into Stomach, Percutaneous Approach (ICD-10-PCS; principal; 2019-07-15 10:30)
DX: T85.528A Displacement of other gastrointestinal prosthetic devices, implants and grafts, initial encounter (principal); L89.154 Pressure ulcer of sacral region, stage 4; R53.2 Functional quadriplegia; E46 Unspecified protein-calorie malnutrition; G20 Parkinson's disease; F02.80 Dementia in other diseases classified elsewhere, unspecified severity, without behavioral disturbance, psychotic disturbance, mood disturbance, and anxiety; I10 Essential (primary) hypertension; D72.829 Elevated white blood cell count, unspecified; R62.7 Adult failure to thrive; Z68.23 Body mass index [BMI] 23.0-23.9, adult; D47.3 Essential (hemorrhagic) thrombocythemia; R41.0 Disorientation, unspecified; D63.8 Anemia in other chronic diseases classified elsewhere; R13.10 Dysphagia, unspecified; Z74.01 Bed confinement status
CPT/HCPCS: 36415; 43762; 71045-TC-FY; 74018-TC-FY; 80048; 80053; 82040; 82272; 82962; 83735; 84100; 85025; 85610; 85730; 93005; 93010; 99284-25; 99285-25; J0131; J1644; J7030